=== PATIENT | male | born 1950 | race Caucasian/White ===

== ENCOUNTER 2017-08-21 13:52 | Emergency (ER) | payer OTHER, SELFPAY ==
[2017-08-21 13:53] VITALS: BP 174/98; PULSE 95; RESP 16; TEMP 37.1; O2SAT 95; BMI 41.7
--- NOTE | 2017-08-21 19:25 | MRI_ITS ---
STUDY: MRI RIGHT FOREFOOT WITHOUT CONTRAST REASON FOR EXAM: Male, 67 years old. Redness, swelling, injury, second toe TECHNIQUE: Standardized fat and water weighted pulse sequences were obtained in all 3 orthogonal planes. COMPARISON: X-ray 08/21/2017 FINDINGS: There is bone marrow edema at the second distal phalanx without bone marrow infiltration (image 17/28 sagittal inversion recovery, / axial T1, 17/ sagittal T1, 8/ coronal T2). There is associated soft tissue induration with soft tissue defect (image 16, / sagittal T1). There is hallux valgus with mild degenerative changes at the first MTP joint (image / coronal T2). There is atrophy of the forefoot musculature (image 30/33 axial T1). There is edema at the dorsal subcutaneous fat (image 26/33 axial T2). There is soft tissue fullness at the plantar aspect of the metatarsal heads at the second web space (image 17/33 axial T1). There is callus formation at the plantar aspect of the fifth metatarsal head (image 28/33 axial T1, T2). There are degenerative changes at Lisfranc's joint (image 19, 17, 15, 14, / sagittal T1). Normal medial and lateral heads of the flexor hallucis brevis tendons. Normal flexor and extensor hallucis longus tendons. Normal second through fifth metatarsophalangeal (MTP) joints. Normal interphalangeal joints of the second through fifth toes. Normal flexor and extensor tendons of the second through fifth toes. Normal visualized metatarsi. MRI/Lower Ext/No Jt/w/o IMPRESSION: Contusion, second distal phalanx, without osteomyelitis Millan's neuroma, second webspace Hallux valgus with degenerative changes at the first MTP joint Degenerative changes at Lisfranc's joint Electronically Signed: Alfie Kennedy MD at 21:11 EST Tel , Service support ,
--- NOTE | 2017-08-21 19:40 | CON.PCM_ITS ---
Reason for Consult Date of Consultation: 08/21/17 Reason for Consultation: Infected right 2nd toe History of Present Illness: The patient is a 67 year old male with history of diabetes presented to the ED today for redness and swelling of the right 2nd toe. He has streaking on the foot as well as swelling and redness to the baldwin. He relates to pain to the toe. He relates this started over the weekend, he bumped the toe, he relates he pulled back the toenail. He relates the redness and swelling have been worsening. In the ED WBC was elevated at 14.1, afebrile, pulse 95, and BP elevated. He received IV Clindamycin in the ED. Plan is for patient to be admitted for further workup and management. Podiatry was consulted by Dr. Shah from the medicine team. Patient relates he works at [employer], he lives at home with his , but she is in nursing facility recovering from a hip fracture. Past Medical History Allergies No Known Allergies Allergy (Verified 08/21/17 13:56) Home Medications: Ambulatory Orders Medication Instructions Recorded Canagliflozin [Invokana] 100 mg PO DAILY 08/21/17 Insulin Glargine,Hum.rec.anlog 160 unit SC DAILY 08/21/17 [Toujeo Solostar] Levothyroxine Sodium [Synthroid] 100 mcg PO DAILY 08/21/17 Pioglitazone [Actos] 45 mg PO DAILY 08/21/17 Sitagliptin Phos/Metformin HCl 1 tab PO BID 08/21/17 [Janumet Xr 50-1,000 mg Tablet] Review of Systems Constitutional: Denies: Chills, Fever Cardiovascular: Reports: Edema - right foot/leg c/w infection. Denies: Chest Pain Respiratory: Denies: Shortness of Breath Gastrointestinal: Denies: Nausea, Vomiting Musculoskeletal: Reports: Foot Pain - right 2nd toe pain c/w infection. Denies : Leg Pain Skin: Reports: Dryness, Skin Changes, Wounds Neurological: Reports: Numbness - Diabetic neuropathy Objective: Right foot xrays, 3 views - reviewed images and report. - Physical Exam General: Alert, Oriented x3, Cooperative, No apparent distress Extremities: Capillary Refill Less than 3 Seconds, No Calf Tenderness, - - There is cellulitis and edema to the right 2nd toe with some bluish discoloration and superficial blistering present, there is lymphangitis to the foot and this cellulitis and lymphangitis extends to the distal leg; there is no maloder, the right 2nd toenail is lysed and was removed as noted in the plan section - underlying ulceration to the nail bed with some nonviable tissue present and probes very close to the underlying bone, there is serous drainage present c/w infection, no thea purulence, no visible abscess noted to the toes , foot, ankle or leg. There is a callus superficial ulceration to the plantar medial right hallux with no evidence of infection. There are no other open ulcerations noted. CFT < 2seconds to all toes, pedal pulses are difficult to palpate at this time bilaterally. There is edema to the right 2nd toe, foot, and leg; no edema on the left foot/ankle/leg. Sensation is diminished c/w diabetic neuropathy to the foot bilateral. Toenails thickened and dystorphic bilateral. Increased temperature to the right 2nd toe and foot c/w infection. Motor function and muscle strength intact to the foot/ankle bilateral. Musculoskeletal: No Tenderness to Palpation of Joints or Extremities, No Muscle Wasting Psych/Mental Status: Alert and oriented to time, place, person, mood and affect Vital Signs Temp Pulse Resp BP Pulse Ox 98.7 F 95 16 174/98 H 95 08/21/17 13:53 08/21/17 13:53 08/21/17 13:53 08/21/17 13:53 08/21/17 13:53 Oxygen Delivery Method Room Air Weight: 147.418 kg Body Mass Index (BMI) 41.7 Assessment/Plan Cellulitis/lymphangitis right 2nd toe, extending to foot and leg Concern for osteomyelitis right 2nd toe Ulceration right 2nd toenail bed Diabetic w/ peripheral neuropathy Reviewed available diagnostic data, WBC 14.1, afebrile, Xrays of the right foot with no gas or evidence of bone involvement. With patient's verbal consent the loose right 2nd toe nail was debrided away and underlying ulceration noted to nail bed. A culture was taken and was sent to microbiology for further evaluation, this includes MRSA DNA PCR. The ulcer is very close to the bone and given the findings in the diabetic patient concerned about seeding bacteria into bone / osteomyelitis. An MRI was ordered for further evaluation. A dressing was applied which consisted of betadine, gauze, kerlix and sascha dressing. Patient has been started on broad spectrum IV antibiotics. Noninvasive lower extremity arterial studies have been ordered for further evaluation of patient's lower extremity arterial flow. Further medical management per medicine team. I did speak with and review case and findings with Dr. Shah. Podiatry will continue to follow. Thank you for consultation.
== END 2017-08-21 14:34 | disposition left against medical advice (07) ==
LOC: ED 14:17
PROVIDERS: Emergency Provider Emergency Medicine; Family Provider Family Medicine; PCP Family Medicine
DX: S90.121A Contusion of right lesser toe(s) without damage to nail, initial encounter (principal); X58.XXXA Exposure to other specified factors, initial encounter; G57.61 Lesion of plantar nerve, right lower limb; M20.11 Hallux valgus (acquired), right foot
CPT/HCPCS: 73718; 99283

== ENCOUNTER 2017-08-21 15:03 | Observation (INO) | payer OTHER, MEDICARE, SELFPAY ==
[2017-08-21 13:53] VITALS: BP 174/98; BMI 41.7
[2017-08-21 15:04] VITALS: BP 181/99; PULSE 95; RESP 16; TEMP 36.6; O2SAT 94; BMI 41.7
[2017-08-21] MEDS: Ondansetron 4 MG/2 ML Vial IV (16:28)
--- NOTE | 2017-08-21 16:38 | RAD_ITS ---
STUDY: X-RAY - RIGHT FOOT CLINICAL: Male, 67 years old. Redness and pain first and second toes. TECHNIQUE: 3 view(s) of the foot. COMPARISON: None. FINDINGS: There is demineralization of the rear and midfoot bones. There are degenerative changes of the mid and hindfoot. There is demineralization of the metatarsi. There is degenerative arthrosis of the metatarsophalangeal joint of the hallux . There is degenerative arthrosis of the interphalangeal joint of the great toe. Normal second through fifth metatarsophalangeal joints. There are degenerative changes of the distal interphalangeal joints of the lesser toes. There is diffuse soft tissue swelling along the plantar aspect of the mid and forefoot. There is a single round radiolucency projecting over the subcutaneous soft tissue along the plantar aspect of the first toe. RAD/Foot min 3 Views IMPRESSION: Single radiolucency projecting over the soft tissue along the plantar aspect of the first toe, may be secondary to an underlying ulceration cannot entirely exclude a small focus of subcutaneous emphysema which could be secondary to an infectious process and/or trauma. Degenerative changes. Electronically Signed: Michelle Schafer MD at 16:56 EST Tel , Service support ,
[2017-08-21 17:00] LABS: Absolute Neutrophil Count 10.7 X10^3/uL (2.0-7.7); Basophil# 0.02 X10^3/uL; Basophil% 0.1 % (0-1); Differential Indicated SCAN CRITERIA MET; Eosinophil# 0.08 X10^3/uL; Eosinophils% 0.6 % (0-5); Hematocrit 47.8 % (40-54); Hemoglobin 15.3 g/dl (13.0-16.5); Lymphocyte % 12.1 % (19-41); Mean Corpuscular Hgb 30.1 pg (27.0-32.0); Mean Corpuscular Volume 93.9 fL (80-94); Mean Platelet Vol. 9.8 fl (6.2-12.0); Monocyte# 1.53 X10^3/uL; Monocyte% 10.9 % (0-10); Neutrophil # 10.69 X10^3/uL (2.7-7.7); Neutrophil % 76.1 % (47-70); POSITIVE COUNT NO; POSITIVE DIFFERENTIAL YES; POSITIVE MORPHOLOGY NO; Platelet Count 273 K/mm3 (150-450); RBC Distribution Width CV 13.4 % (11.6-14.6); RBC Distribution Width SD 45.8 fl (35.1-43.9); Red Blood Count 5.09 M/mm3 (4.6-6.2); White Blood Count 14.1 K/mm3 (4.4-11.0)
[2017-08-21 17:20] LABS: Anion Gap 9 (5-15); BUN 11 mg/dL (7-18); BUN/Creat Ratio 14.5 RATIO (10-20); Calcium,Total 9.1 mg/dL (8.5-10.1); Chloride 104 mmol/L (98-107); Creatinine, Serum 0.76 mg/dL (0.70-1.30); EST Glomerular Filtration Rate 109 mL/min (>60); Est Glom Filt Rate - Afr Amer 132 mL/min (>60); Estimated Creatinine Clearance 83.34 ml/min; Glucose 80 mg/dL (74-106); Potassium 3.7 mmol/L (3.5-5.1); Sodium Level 140 mmol/L (136-145)
--- NOTE | 2017-08-21 17:26 | ED.VISSUMM ---
- ER Visit Summary Date of Service: 08/21/17 Chief Complaint: Pain swelling discoloration second right toe status post blunt trauma Sunday History of Present Illness: The patient is a 67 M with 3 of type 2 diabetes presents because of redness right second toe with red streak that concerns him. He sustained blunt trauma to the toe on Sunday. He partially avulsed the nail. He did not seek medical attention at that time. He denies fever or chills. He denies elevated blood sugar. He has no other complaints. Physical Examination: Vital signs remarkable blood pressure 181/99. Patient is obese with a BMI of 41.7. Head is atraumatic normocephalic. Pupils are equal round reactive. Extraocular muscles are intact. TMs are pearly white with landmarks noted. Nares patent with no drainage. Posterior pharynx without erythema or exudate. Uvula is midline. There is no dysphonia or dysphasia. Trachea is midline. There is no stridor with auscultation of the neck. Heart is regular without murmur, gallop or rub. S1 and S2 are normal. Lungs are clear to auscultation with good movement of air bilaterally. Examination of the lower extremities reveals bilateral edema. The right second toe is discolored erythematous warm indurated with lymphangitis to the distal anterior right leg which is erythematous and warm and consistent with cellulitis. There is no popliteal or inguinal lymphadenopathy. Test Results: X-ray of the foot was obtained with no evidence of foreign body or fracture. White count is 14.1 thousand with no significant shift. Electrode panel is normal. Emergency Department Course and Treatment: Patient has cellulitis with lymphangitis he was treated with clindamycin for strep and staph coverage. Realizing that 2% of MRSA will not be covered by clindamycin. However in light of the fact that he has lymphangitis most likely organism is strep. Treatment Plan: IV antibiotics and inpatient care Disposition: [facility] Impression: 1. Cellulitis right second toe with lymphangitis and cellulitis anterior distal right leg 2. Sepsis 3. History of type 2 diabetes This note was generated with [employer] dictation software. It may contain incorrect words, spelling, and punctuation that were not noted in review of the chart prior to signing ED Disposition - Plan for ED Patient: Chief Complaint: Lower Extremity Injury Referrals: Floyd Ricketts DO [Primary Care Provider] -
[2017-08-21 17:48] VITALS: BMI 41.7
[2017-08-21 17:56] LABS: Differential Comment SCANNED
[2017-08-21 18:06] VITALS: BP 165/83; PULSE 97; RESP 16; O2SAT 95
--- NOTE | 2017-08-21 19:46 | PCM.CONS.GEN ---
Reason for Consult Date of Consultation: 08/21/17 Reason for Consultation: Right 2nd toe infection History of Present Illness: The patient is a 67 year old male with history of diabetes presented to the ED today for redness and swelling of the right 2nd toe. He has streaking on the foot as well as swelling and redness to the baldwin. He relates to pain to the toe. He relates this started over the weekend, he bumped the toe, he relates he pulled back the toenail. He relates the redness and swelling have been worsening. In the ED WBC was elevated at 14.1, afebrile, pulse 95, and BP elevated. He received IV Clindamycin in the ED. Plan is for patient to be admitted for further workup and management. Podiatry was consulted by Dr. Shah from the medicine team. Patient relates he works at [employer], he lives at home with his , but she is in nursing facility recovering from a hip fracture. Past Medical History Allergies No Known Allergies Allergy (Verified 08/21/17 13:56) Home Medications: Ambulatory Orders Medication Instructions Recorded Canagliflozin [Invokana] 100 mg PO DAILY 08/21/17 Insulin Glargine,Hum.rec.anlog 160 unit SC DAILY 08/21/17 [Toujeo Solostar] Levothyroxine Sodium [Synthroid] 100 mcg PO DAILY 08/21/17 Pioglitazone [Actos] 45 mg PO DAILY 08/21/17 Sitagliptin Phos/Metformin HCl 1 tab PO BID 08/21/17 [Janumet Xr 50-1,000 mg Tablet] Smoking Status: Former smoker - *Family History Maternal History Items: No pertinent history Paternal History Items: Diabetes, Heart Disease, Hypertension Review of Systems Constitutional: Denies: Anorexia, Chills, Fever Cardiovascular: Denies: Chest Pain Respiratory: Denies: Shortness of Breath Gastrointestinal: Denies: Nausea, Vomiting Musculoskeletal: Reports: Foot Pain - right 2nd toe Skin: Reports: Skin Changes, Wounds Neurological: Reports: Numbness - Diabetic neuropathy Patient Problems: Active and Suspected Problems redness of right second toe (Acute) swelling of right second toe (Acute) Objective: Right foot xrays, 3 views, reviewed images and report. - Physical Exam General: Alert, Oriented x3, Cooperative, No apparent distress Extremities: Capillary Refill Less than 3 Seconds, No Calf Tenderness, - - There is cellulitis and edema to the right 2nd toe with some bluish discoloration and superficial blistering present, there is lymphangitis to the foot and this cellulitis and lymphangitis extends to the distal leg; there is no maloder, the right 2nd toenail is lysed and was debrided as noted in the plan section - underlying ulceration to the nail bed with some nonviable tissue present and probes very close to the underlying bone, there is serous drainage present c/w infection, no thea purulence, no visible abscess noted to the toes, foot, ankle or leg. There is a callus superficial ulceration to the plantar medial right hallux with no evidence of infection. There are no other open ulcerations noted. CFT < 2seconds to all toes, pedal pulses are difficult to palpate at this time bilaterally. There is edema to the right 2nd toe, foot, and leg; no edema on the left foot/ankle/leg. Sensation is diminished c/w diabetic neuropathy to the foot bilateral. Toenails thickened and dystorphic bilateral. Increased temperature to the right 2nd toe and foot c/w infection. Motor function and muscle strength intact to the foot/ankle bilateral. Musculoskeletal: No Tenderness to Palpation of Joints or Extremities, No Muscle Wasting Psych/Mental Status: Alert and oriented to time, place, person, mood and affect Vital Signs Temp Pulse Resp BP Pulse Ox 97.9 F 97 16 165/83 H 95 08/21/17 15:04 08/21/17 18:06 08/21/17 18:06 08/21/17 18:06 08/21/17 18:06 Laboratory Tests Past 24 Hrs 08/21/17 19:20 Lactic Acid Pending Assessment/Plan Active and Suspected Problems redness of right second toe (Acute) swelling of right second toe (Acute) Cellulitis/lymphangitis right 2nd toe, extending to foot and leg Concern for osteomyelitis right 2nd toe Ulceration right 2nd toenail bed Diabetic w/ peripheral neuropathy Reviewed available diagnostic data, WBC 14.1, afebrile, Xrays of the right foot with no gas or evidence of bone involvement. With patient's verbal consent the loose right 2nd toe nail was debrided away and underlying ulceration noted to nail bed. A culture was taken and was sent to microbiology for further evaluation, this includes MRSA DNA PCR. The ulcer is very close to the bone and given the findings in the diabetic patient concerned about possibility of seeding bacteria into bone / osteomyelitis. An MRI was ordered for further evaluation. A dressing was applied which consisted of betadine, gauze, kerlix and sascha dressing. Patient has been started on broad spectrum IV antibiotics. Noninvasive lower extremity arterial studies have been ordered for further evaluation of patient's lower extremity arterial flow. Further medical management per medicine team. I did speak with and review case and findings with Dr. Shah. Podiatry will continue to follow. Thank you for consultation.
--- NOTE | 2017-08-21 20:12 | HP.PCM_ITS ---
Problem List (1) redness of right second toe Status: Acute (2) swelling of right second toe Status: Acute History of Present Illness Date of Admission: 08/21/17 Chief Complaint: selling and redness of the right second toe The patient is a 67 year old M who was seen in the emergency room at [facility] with chief complaint of swelling and redness in his right second toe since yesterday. Patient tried to remove a toenail from his right second toe several days ago. Patient noted today that there was red streaking into the patient's right lower leg, he did complain of pain in the right second toe. Workup in the emergency room showed the patient's white blood cell count to be elevated at 14.1, patient's chemistry panel was unremarkable, x-rays of the right foot reveal no evidence of bone erosion in the right second toe. Patient met sepsis criteria with tachycardia and elevated white count, he was given IV clindamycin by the emergency room physician and the hospitalist service was called for admission. On examination, patient's right second toe is swollen and reddened, it is tender to palpation, there was no open areas that I could express any discharge. Patient's right lower leg was warm to around the mid portion of the leg, both lower legs were swollen and there were changes of chronic stasis changes of the skin bilaterally. I talked with of podiatry who will see the patient in consultation, he will be admitted to [facility], blood cultures will be obtained from the patient, lactic acid will be obtained, patient will be given Zosyn and vancomycin for antibiotic coverage and have peripheral vascular studies done on his legs. Past Medical History Allergies No Known Allergies Allergy (Verified 08/21/17 13:56) Home Medications: Ambulatory Orders Medication Instructions Recorded Canagliflozin [Invokana] 100 mg PO DAILY 08/21/17 Insulin Glargine,Hum.rec.anlog 160 unit SC DAILY 08/21/17 [Delmi Huang] Levothyroxine Sodium [Synthroid] 100 mcg PO DAILY 08/21/17 Pioglitazone [Actos] 45 mg PO DAILY 08/21/17 Sitagliptin Phos/Metformin HCl 1 tab PO BID 08/21/17 [Janumet Xr 50-1,000 mg Tablet] Surgical History: tonsillectomy Psychiatric History: No pertinent psych hx Lives: Spouse/ Significant Other Smoking Status: Former smoker Tobacco Use: Non-smoker Alcohol: None Drugs: None - *Family History Maternal History Items: No pertinent history Paternal History Items: Diabetes, Heart Disease, Hypertension Review of Systems Constitutional: Denies: Anorexia, Chills, Fever, Night Sweats, Malaise, Weakness , Weight Change, Fatigue Eyes: Denies: Blurred vision, Cataracts, Conjunctivae Inflammation, Double vision HEENT: Denies: Difficulty Hearing, Difficulty Swallowing, Dysphasia, Ear Pain, Eye Pain, Hearing Changes, Nasal bleeding, Nasal Congestion, Post Nasal Drip Cardiovascular: Denies: Chest Pain, Claudication, Chest Pressure, Chest Tightness, Light Headedness, Orthopnea, Palpitations Respiratory: Denies: Cough, Hemoptysis, Pleuritic Pain, Shortness of Breath, Shortness of breath at rest, Shortness of breath upon exertion, Sputum production Gastrointestinal: Denies: Abdominal Pain, Constipation, Diarrhea, Hematemesis, Hematochezia, Nausea, Melena, Vomiting Genitourinary: Denies: Dysuria, Frequency, Hematuria, Hesitancy, Incontinence, Nocturia, Urgency Musculoskeletal: Reports: Joint swelling, Joint Tenderness. Denies: Hand Pain, Joint Pain, Joint stiffness, Neck Pain, Shoulder Pain Skin: Reports: Rash - complains of rash and swelling over the his right second toe, - - Patient complains of redness in the right lower legX 1 day. Denies: Dryness, Jaundice, Pruritis Neurological: Denies: Blurred vision, Double vision, Slurred speech, Difficulty swallowing, Focal weakness, Numbness, Tingling Psychiatric: Denies: Anxiety, Depression, Homicidal Ideations, Suicidal Ideations Endocrine: Denies: Change in Body Habitus, Heat/ Cold Intolerance, Polydipsia, Polyuria Hematologic/ Lymphatic: Denies: Adenopathy, Anemia, Easy Bruising, Easy Bleeding , Petechiae, Purpura VTE Information - Inpt Only VTE Present on Admission: No VTE Mechan Device Prophylaxis: None VTE Pharm Prophylaxis ordered?: Yes Patient Problems: Active and Suspected Problems redness of right second toe (Acute) swelling of right second toe (Acute) - Physical Exam General: Alert, Oriented x3, Cooperative, No apparent distress, Well developed, Well nourished HEENT: Atraumatic, PERRLA, EOMI, Normocephalic Oral: Moist Mucosa Neck: Supple, No JVD, Negative Carotid Bruits, No Nuchal Rigidity, Trachea Midline, Thyroid Normal Size and Texture Lungs: Clear to auscultation, Normal air movement, No rhonchi, No wheeze, No rales Cardiovascular: Regular rate, Regular Rhythm, Normal S1, Normal S2, No murmurs, No Ectopic Activity, PMI Normal, No rub noted, No Gallop Abdomen: Bowel Sounds Present, Soft, Non Tender, Non-Distended, Hernia Extremities: Capillary Refill Less than 3 Seconds, Edema - Generalized edema is noted over both lower legs worse on the right, Tenderness - There is tenderness to palpation over the right second toe Skin: No breakdown, Rash Present - There is rash and swelling over the patient' s right second toe, - - There is redness and warmth of the patient's right lower leg up to the midportion of the leg Musculoskeletal: No Muscle Wasting, Tenderness - There is tenderness over the right second toe to palpation Neurological: Cranial nerves II-XII grossly intact, Neuro grossly intact, Muscle tone normal, Sensory exam intact to light touch and pain, Coordination normal Psych/Mental Status: Normal Affect, Appropriate, Alert and oriented to time, place, person, mood and affect Vital Signs Temp Pulse Resp BP Pulse Ox 97.9 F 97 16 165/83 H 95 08/21/17 15:04 08/21/17 18:06 08/21/17 18:06 08/21/17 18:06 08/21/17 18:06 Laboratory Tests Past 24 Hrs 08/21/17 19:20 Lactic Acid Pending Assessment/Plan Active and Suspected Problems redness of right second toe (Acute) swelling of right second toe (Acute) #1 acute sepsis secondary to right second toe cellulitis-probably secondary to gram-positive bacterial infection, patient will be admitted to [facility], podiatry will see the patient in consultation, blood cultures will be obtained, lactic acid will be obtained, patient will be given Zosyn and vancomycin. Labs will be repeated #2 acute cellulitis of the right second toe-suspect gram-positive bacterial infection, patient will be given Zosyn and vancomycin, labs will be repeated #3 type 2 diabetes-patient's diabetic medications will be changed, he will be placed on Levemir twice daily, sliding scale insulin, his metformin will be held , patient will be maintained on his Actos Code Visit Inpatient E&M: 46012 Init Hosp L3
[2017-08-21 20:57] VITALS: BP 163/85; PULSE 79; RESP 20; TEMP 36.9; O2SAT 94
[2017-08-21 20:59] VITALS: BMI 42.5
[2017-08-21 21:00] VITALS: BMI 42.6
[2017-08-21 21:31] LABS: Bedside Glucose 88 mg/dL (70-110)
[2017-08-21 21:33] LABS: Lactic Acid 0.6 mmol/L (0.4-2.0)
[2017-08-21] MEDS: oxyCODONE 5 MG Tablet PO (23:03)
[2017-08-22] MEDS: Piperacil/Tazobactam 3.375 GM/50 ML ML IV ×4 (01:45→22:18)
[2017-08-22] MEDS: oxyCODONE 5 MG Tablet PO ×5 (02:03→22:30)
[2017-08-22 03:25] VITALS: BP 111/55; PULSE 88; RESP 18; TEMP 36.3; O2SAT 93
[2017-08-22] MEDS: Levothyroxine 100 MCG Tablet PO (06:04)
[2017-08-22 06:36] LABS: Absolute Lymphocyte Count 1.88 X10^3/ul (0.83-4.51); Absolute Neutrophil Count 7.3 X10^3/uL (2.0-7.7); Basophil# 0.02 X10^3/uL; Basophil% 0.2 % (0-1); Eosinophil# 0.15 X10^3/uL; Eosinophils% 1.4 % (0-5); Hematocrit 45.7 % (40-54); Hemoglobin 14.7 g/dl (13.0-16.5); Lymphocyte # 1.88 X10^3/ul (4.0); Lymphocyte % 17.4 % (19-41); Mean Corp Hgb Conc 32.2 g/gl (32-36); Mean Corpuscular Hgb 30.2 pg (27.0-32.0); Mean Corpuscular Volume 93.8 fL (80-94); Mean Platelet Vol. 9.8 fl (6.2-12.0); Monocyte# 1.48 X10^3/uL; Monocyte% 13.7 % (0-10); Neutrophil # 7.27 X10^3/uL (2.7-7.7); Platelet Count 287 K/mm3 (150-450); RBC Distribution Width CV 13.6 % (11.6-14.6); RBC Distribution Width SD 45.1 fl (35.1-43.9); Red Blood Count 4.87 M/mm3 (4.6-6.2); White Blood Count 10.8 K/mm3 (4.4-11.0)
[2017-08-22 06:38] LABS: POSITIVE COUNT NO; POSITIVE DIFFERENTIAL NO; POSITIVE MORPHOLOGY NO
[2017-08-22 06:47] LABS: Anion Gap 8 (5-15); BUN 14 mg/dL (7-18); BUN/Creat Ratio 18.4 RATIO (10-20); Calcium,Total 8.9 mg/dL (8.5-10.1); Chloride 103 mmol/L (98-107); Creatinine, Serum 0.76 mg/dL (0.70-1.30); EST Glomerular Filtration Rate 109 mL/min (>60); Est Glom Filt Rate - Afr Amer 132 mL/min (>60); Estimated Creatinine Clearance 81.01 ml/min; Glucose 59 mg/dL (74-106); Sodium Level 138 mmol/L (136-145)
[2017-08-22 06:56] LABS: Bedside Glucose 71 mg/dL (70-110)
--- NOTE | 2017-08-22 08:25 | PCM.RX.CS ---
Subjective/Objective Date: 08/22/17 Time: 08:26 Antibiotic: Piperacillin/Tazobactam, Vancomycin Type of Consult: New start Indications for Therapy: Skin/Soft Tissue Labs: Sodium 138 mmol/L (136-145) 08/22/17 05:45 Potassium 4.0 mmol/L (3.5-5.1) 08/22/17 05:45 Chloride 103 mmol/L (98-107) 08/22/17 05:45 Carbon Dioxide 27.0 mmol/L (21.0-32.0) 08/22/17 05:45 Anion Gap 8 (5-15) 08/22/17 05:45 BUN 14 mg/dL (7-18) 08/22/17 05:45 Creatinine 0.76 mg/dL (0.70-1.30) 08/22/17 05:45 Est GFR (MDRD) Af Amer 132 mL/min (>60) 08/22/17 05:45 Est GFR (MDRD) Non-Af 109 mL/min (>60) 08/22/17 05:45 BUN/Creatinine Ratio 18.4 RATIO (10-20) 08/22/17 05:45 Glucose 59 mg/dL (74-106) L 08/22/17 05:45 Pharmacy Plan for Drug Dosing: Goal vancomycin trough 10-15 mcg/mL. Patient received vancomycin 2000mg IV x1, recommend to continue 1250mg IV q12h for est trough 11 mcg/mL. Check prior to 5th dose. Pharmacy Service will continue to monitor and adjust dosing as required. Pharmacy to order these labs: Trough - Vancomycin Labs to be done on (date): 08/24/17 Labs to be done (time): 10:00
[2017-08-22 09:32] LABS: M R Staph aureus DNA By PCR Negative (Negative); Probe Check PASS; Staph aureus DNA By PCR POSITIVE (Negative)
[2017-08-22 09:58] VITALS: BP 115/53; PULSE 86; RESP 20; TEMP 36.7; O2SAT 92
[2017-08-22] MEDS: Pioglitazone Hydrochloride 45 MG Tablet PO (10:03)
[2017-08-22] MEDS: Enoxaparin 40 MG/0.4 ML Syringe SC (10:04)
--- NOTE | 2017-08-22 12:01 | PN_ITS ---
Patient Problems: Active and Suspected Problems redness of right second toe (Acute) swelling of right second toe (Acute) Subjective: Patient was seen and examined. No new complains. Denies any pain in the leg. No fever or chills. Objective: Physical Exam General: Alert, Oriented x3, Cooperative, No apparent distress, Well developed, Well nourished HEENT: Atraumatic, PERRLA, EOMI, Normocephalic Oral: Moist Mucosa Neck: Supple, No JVD Lungs: Clear to auscultation, Normal air movement, No wheeze or rales Cardiovascular: Regular rate, Regular Rhythm, Normal S1, Normal S2, No murmurs, No Ectopic Activity, PMI Normal, No rub noted, No Gallop Abdomen: Bowel Sounds Present, Soft, Non Tender, Non-Distended, Hernia Extremities: Capillary Refill Less than 3 Seconds, Edema - Generalized edema is noted over both lower legs worse on the right, right foot has been dressed in gauze and LISA wrapped. Erythema over the right lower leg Skin: No breakdown, Rash Present - There is rash and swelling over the patient' s right second toe, - - There is redness and warmth of the patient's right lower leg up to the midportion of the leg Musculoskeletal: No Muscle Wasting, Tenderness - There is tenderness over the right second toe to palpation Neurological: Cranial nerves II-XII grossly intact, Neuro grossly intact, Muscle tone normal, Sensory exam intact to light touch and pain, Coordination normal Psych/Mental Status: Normal Affect, Appropriate, Alert and oriented to time, place, person, mood and affect Vitals/I&O's: Vital Signs Temp Pulse Resp BP Pulse Ox 98.1 F 86 20 H 115/53 L 92 08/22/17 09:58 08/22/17 09:58 08/22/17 09:58 08/22/17 09:58 08/22/17 09:58 Oxygen Delivery Method Room Air Weight: 146.3 kg Body Mass Index (BMI) 42.5 Intake and Output for Last 24 Hours 08/20/17 08/21/17 08/22/17 23:59 23:59 23:59 Intake Total 1134 / 1134 Balance 1134 / 1134 Microbiology Past 72 Hours 08/21/17 19:20 Wound - Toe Gram Stain - Final Laboratory Results 08/21/17 19:20: S.aureus Protein A PCR POSITIVE H, MRSA (PCR) Negative 08/21/17 20:45: Lactic Acid 0.6 08/21/17 21:23: POC Glucose 88 08/22/17 05:45: WBC 10.8, RBC 4.87, Hgb 14.7, Hct 45.7, MCV 93.8, MCH 30.2, MCHC 32.2, RDW 13.6, RDW Differential 45.1 H, Plt Count 287, MPV 9.8, Immature Gran % (Auto) 0.300, Neut % (Auto) 67.0, Lymph % (Auto) 17.4 L, [place] % (Auto) 13.7 H, Eos % (Auto) 1.4, Baso % (Auto) 0.2, Absolute Neuts (auto) 7.3, Absolute Lymphs (auto) 1.88, Total Counted Not Reportable 08/22/17 05:45: Sodium 138, Potassium 4.0, Chloride 103, Carbon Dioxide 27.0, Anion Gap 8, BUN 14, Creatinine 0.76, Estim Creat Clear Calc 81.01, Est GFR ( MDRD) Af Amer 132, Est GFR (MDRD) Non-Af 109, BUN/Creatinine Ratio 18.4, Glucose 59 L, Calcium 8.9 08/22/17 06:51: POC Glucose 71 Current Medications Acetaminophen (Tylenol) 650 mg PO Q6H PRN PRN PRN Reason: Mild Pain (scale 0-3)/T>100.7 Dextrose (D50w Syringe) 0 gm IV X1 PRN; Protocol PRN Reason: Hypoglycemia Enoxaparin Sodium (Lovenox) 40 mg SC DAILY@1000 LIZZY Last Admin: 08/22/17 10:04 Dose: 40 mg Glucagon () 1 mg IM .X1 PRN PRN Reason: Hypoglycemia Piperacillin Sod/Tazobactam Sod (Zosyn) 3.375 gm in 50 mls @ 12.5 mls/hr IV Q8 [facility] Last Admin: 08/22/17 06:04 Dose: 12.5 mls/hr Vancomycin HCl 1,250 mg/ (Sodium Chloride) 275 mls @ 183.3 mls/hr IV Q12H [facility] Last Admin: 08/22/17 10:07 Dose: 183.3 mls/hr Insulin Aspart (Novolog Flexpen (Bkc)) 0 units SC TIDAC [facility] PRN Reason: Protocol Last Admin: 08/22/17 06:57 Dose: Not Given Insulin Detemir (Levemir (Bk)) 80 units SC BID [facility] Last Admin: 08/22/17 10:03 Dose: 80 units Levothyroxine Sodium (Synthroid) 100 mcg PO DAILY@0600 [facility] Last Admin: 08/22/17 06:04 Dose: 100 mcg Magnesium Hydroxide (Milk Of Magnesia) 30 ml PO DAILY PRN PRN PRN Reason: Constipation Ondansetron HCl (Zofran) 4 mg IV Q8H PRN PRN PRN Reason: Nausea Oxycodone HCl (Oxyir) 5 mg PO Q4H PRN PRN PRN Reason: Moderate Pain (pain scale 4-5) Last Admin: 08/22/17 10:02 Dose: 5 mg Pioglitazone HCl (Actos) 45 mg PO DAILY [facility] Last Admin: 08/22/17 10:03 Dose: 45 mg Sodium Chloride () 5 - 30 ml IV UD PRN PRN Reason: SALINE FLUSH Assessment/Plan Active and Suspected Problems redness of right second toe (Acute) swelling of right second toe (Acute) 67 year old M who was seen in the emergency room at [facility] with chief complaint of swelling and redness in his right second toe of 1 day duration 1. Sepsis secondary to right second toe cellulitis, wound cultures are pending, MSSA PCR is positive, MRSA PCR negative, stable vitals, improved leucocytosis, on vancomycin and zosyn, will stop vancomycin and leave on zosyn. 2. Acute cellulitis/ulcer of the right second toe, on IV Zosyn 3. type 2 DM, BS are stable, home metformin on hold, on Actos and Levemir insulin, will continue to monitor 4. Hypothyroidism, on levothyroxine 5. DVT PPx with Lovenox SC Code Visit Inpatient E&M: 19456 [facility] Hosp L2
--- NOTE | 2017-08-22 12:04 | NURSING ---
Pt requested to go to rehab unit to visit his who is a patient. Discussed with pt's physician, Dr. Archuleta, and discussed with nurse, Charley, on rehab. Pt states he will eat lunch after he returns from visiting . Pt over to rehab via wheelchair at this time.
[2017-08-22 12:05] LABS: Pathologist Review Reviewed
--- NOTE | 2017-08-22 12:15 | CASEMGMT ---
Attempted to meet with patient for initial transition planning and care coordination assessment. Patient off unit. RN CM will check back today as able.
--- NOTE | 2017-08-22 13:40 | NURSING ---
Pt returned to room at this time via wheelchair.
[2017-08-22 13:56] LABS: Bedside Glucose 144 mg/dL (70-110)
[2017-08-22 14:10] VITALS: BP 142/84; PULSE 77; RESP 18; TEMP 37.1; O2SAT 95
[2017-08-22] MEDS: 0.9% NaCl Peripheral Flush Adult/Peds IV (14:13)
[2017-08-22 17:31] LABS: Bedside Glucose 181 mg/dL (70-110)
[2017-08-22] MEDS: Acetaminophen 325 MG Tablet 650 MG PO (18:25)
--- NOTE | 2017-08-22 18:34 | PN_ITS ---
Patient Problems: Active and Suspected Problems redness of right second toe (Acute) swelling of right second toe (Acute) Subjective: Patient seen today for follow up on right foot. He has no new complaints. Denies fever, chills, nausea, or vomiting. He was resting in recliner with feet up watching TV. - Physical Exam General: Alert, Oriented x3, Cooperative, No apparent distress Extremities: No clubbing, Capillary Refill Less than 3 Seconds, No Calf Tenderness, - - There is cellulitis and edema to the right 2nd toe with ulceration down to the superficial subcutaneous tissue layer dorsal aspect and to nail bed, there is no probe to bone or joint, there is some nonviable tissue to the base which was debrided with patient's consent, lymphangitis to the foot and this cellulitis and lymphangitis extends to the distal leg which is improving; there is no maloder, no thea purulence, no visible abscess noted to the toes, foot, ankle or leg. There is a callus ulceration to the plantar medial right hallux down to subcutaneous tissue layer with no evidence of infection. There are no other open ulcerations noted to the foot. CFT < 2seconds to all toes bilaterally. There is edema to the right 2nd toe, foot, and leg which is improving; no edema on the left foot/ankle/leg. He has diabetic neuropathy bilateral lower extremity. Vital Signs Temp Pulse Resp BP Pulse Ox 98.8 F 77 18 142/84 H 95 08/22/17 14:10 08/22/17 14:10 08/22/17 14:10 08/22/17 14:10 08/22/17 14:10 Oxygen Delivery Method Room Air Weight: 146.3 kg Body Mass Index (BMI) 42.5 Intake and Output for Last 24 Hours 08/20/17 08/21/17 08/22/17 23:59 23:59 23:59 Intake Total 2314 / 2314 Balance 2314 / 2314 Microbiology Past 72 Hours 08/21/17 19:20 Gram Stain - Final Wound - Toe Laboratory Tests Past 24 Hrs 08/21/17 08/21/17 08/22/17 19:20 20:45 05:45 WBC 10.8 RBC 4.87 Hgb 14.7 Hct 45.7 MCV 93.8 MCH 30.2 MCHC 32.2 RDW 13.6 RDW Differential 45.1 H Plt Count 287 MPV 9.8 Immature Gran % (Auto) 0.300 Neut % (Auto) 67.0 Lymph % (Auto) 17.4 L [place] % (Auto) 13.7 H Eos % (Auto) 1.4 Baso % (Auto) 0.2 Absolute Neuts (auto) 7.3 Absolute Lymphs (auto) 1.88 Total Counted Not Reportable Sodium Potassium Chloride Carbon Dioxide Anion Gap BUN Creatinine Estim Creat Clear Calc Est GFR (MDRD) Af Amer Est GFR (MDRD) Non-Af BUN/Creatinine Ratio Glucose Lactic Acid 0.6 Calcium S.aureus Protein A PCR POSITIVE H MRSA (PCR) Negative 08/22/17 05:45 WBC RBC Hgb Hct MCV MCH MCHC RDW RDW Differential Plt Count MPV Immature Gran % (Auto) Neut % (Auto) Lymph % (Auto) [place] % (Auto) Eos % (Auto) Baso % (Auto) Absolute Neuts (auto) Absolute Lymphs (auto) Total Counted Sodium 138 Potassium 4.0 Chloride 103 Carbon Dioxide 27.0 Anion Gap 8 BUN 14 Creatinine 0.76 Estim Creat Clear Calc 81.01 Est GFR (MDRD) Af Amer 132 Est GFR (MDRD) Non-Af 109 BUN/Creatinine Ratio 18.4 Glucose 59 L Lactic Acid Calcium 8.9 S.aureus Protein A PCR MRSA (PCR) POC Glucose 08/22/17 08/22/17 08/22/17 17:01 13:48 06:51 POC Glucose 181 H 144 H 71 08/21/17 21:23 POC Glucose 88 Assessment/Plan Active and Suspected Problems redness of right second toe (Acute) swelling of right second toe (Acute) Cellulitis/lymphangitis right 2nd toe, extending to foot and leg Concern for osteomyelitis right 2nd toe Ulceration right 2nd toenail bed Diabetic w/ peripheral neuropathy Ulcer right hallux down, down to subcutaneous layer Reviewed available diagnostic data, WBC now normal at 10.8, afebrile, right xrays of the right foot with no gas or evidence of bone involvement, MRI was negative for osteomyelitis per Dr. Kennedy, radiologist. Clinically there has been some improvement compared to last night. Culture results pending, MRSA DNA PCR negative. Continue with IV antibiotic therapy, patient on Zosyn at this time. Continue with wound care and offloading right foot. A dressing was applied which consisted of Aquacel Ag, gauze, and sascha dressing. Change daily. Will order surgical shoe for patient. Noninvasive lower extremity arterial studies were ordered and reviewed. Formal read pending, but does have evidence of PAD, patient will need follow up with vascular surgery. Clinically no evidence of acute ischemia to the foot bilateral. Further medical management per medicine team. I did speak with and review case and findings with Dr. Archuleta today. Podiatry will continue to follow.
[2017-08-22 20:37] VITALS: BP 117/54; PULSE 78; RESP 16; TEMP 36.8; O2SAT 98
[2017-08-22 22:41] LABS: Bedside Glucose 124 mg/dL (70-110)
[2017-08-23 02:13] VITALS: BP 149/80; PULSE 73; RESP 16; TEMP 36.9; O2SAT 93
[2017-08-23] MEDS: Acetaminophen 325 MG Tablet 650 MG PO ×3 (02:21→17:01)
[2017-08-23 05:29] LABS: Absolute Lymphocyte Count 1.55 X10^3/ul (0.83-4.51); Absolute Neutrophil Count 6.7 X10^3/uL (2.0-7.7); Basophil# 0.02 X10^3/uL; Basophil% 0.2 % (0-1); Eosinophil# 0.17 X10^3/uL; Eosinophils% 1.7 % (0-5); Hematocrit 44.9 % (40-54); Hemoglobin 14.3 g/dl (13.0-16.5); Lymphocyte # 1.55 X10^3/ul (4.0); Lymphocyte % 15.6 % (19-41); Mean Corp Hgb Conc 31.8 g/gl (32-36); Mean Corpuscular Hgb 29.8 pg (27.0-32.0); Mean Corpuscular Volume 93.5 fL (80-94); Mean Platelet Vol. 9.2 fl (6.2-12.0); Monocyte# 1.52 X10^3/uL; Monocyte% 15.3 % (0-10); Neutrophil # 6.68 X10^3/uL (2.7-7.7); Platelet Count 287 K/mm3 (150-450); RBC Distribution Width CV 13.4 % (11.6-14.6); RBC Distribution Width SD 44.3 fl (35.1-43.9)
[2017-08-23 05:30] LABS: Differential Indicated SCAN CRITERIA MET; POSITIVE COUNT NO; POSITIVE DIFFERENTIAL YES; POSITIVE MORPHOLOGY NO
[2017-08-23 05:50] LABS: Anion Gap 6 (5-15); BUN 16 mg/dL (7-18); BUN/Creat Ratio 21.9 RATIO (10-20); Calcium,Total 8.6 mg/dL (8.5-10.1); Chloride 105 mmol/L (98-107); Creatinine, Serum 0.73 mg/dL (0.70-1.30); EST Glomerular Filtration Rate 114 mL/min (>60); Est Glom Filt Rate - Afr Amer 138 mL/min (>60); Estimated Creatinine Clearance 81.01 ml/min; Glucose 58 mg/dL (74-106); Sodium Level 139 mmol/L (136-145)
[2017-08-23 05:51] LABS: Differential Comment SCANNED; Reactive Lymphocyte 2+
--- NOTE | 2017-08-23 05:53 | LEAS ---
Arterial Study - Arterial Study Arterial Study: Bilateral lower extremity noninvasive arterial exam at rest Right lower extremity The right low thigh index is 1.08. The calf index is 0.74. The right PT and DP ankle-brachial indices at rest are 0.65 and 0.68 respectively. Doppler waveforms demonstrate biphasic right posterior tibial waveform and monophasic right dorsalis pedis. Volume pulse recordings do demonstrate amplification the calf and the ankle waveforms are mildly depressed Left lower extremity. The left low thigh index is 1.13. The calf index is 0.83. The left PT and DP ankle-brachial index 0.66 and 0.62 respectively. Left digital index is 0.36. Again the left posterior tibial Doppler waveform is biphasic in the dorsalis pedis is monophasic. Volume pulse recordings demonstrate amplification of the calf. The ankle and digital waveforms mildly depressed Impression Right lower extremity suggest distal superficial femoral/popliteal occlusive disease with ABIs in the range of vascular claudication. Doppler waveforms suggest occlusion of the right tibialis anterior digital inspection was not performed on the right. These are consistent with clinically significant vascular occlusive disease. Left lower extremity suggest distal superficial femoral-popliteal occlusive disease with additional suspicion of occlusion of the tibialis anterior. Findings again are well within the range of vascular claudication. Diminished digital indices suggest distal small vessel disease/multisegmental occlusive disease. Again findings are consistent with clinically significant vascular occlusive disease Kyle Borges M.D., F.A.C.S.
[2017-08-23] MEDS: oxyCODONE 5 MG Tablet PO ×3 (06:16→17:01)
[2017-08-23] MEDS: Levothyroxine 100 MCG Tablet PO (06:17)
[2017-08-23] MEDS: Piperacil/Tazobactam 3.375 GM/50 ML ML IV (06:17)
[2017-08-23 06:37] LABS: Bedside Glucose 60 mg/dL (70-110)
[2017-08-23 06:56] LABS: Bedside Glucose 134 mg/dL (70-110)
--- NOTE | 2017-08-23 09:46 | PN_ITS ---
Patient Problems: Active and Suspected Problems redness of right second toe (Acute) swelling of right second toe (Acute) Subjective: Patient was seen and examined. He feels well. Denies any fever or chills or nausea or vomiting or diarrhea. Pain in his right foot is 6 out of 10. Objective: Physical Exam General: Alert, Oriented x3, Cooperative, No apparent distress, Well developed, Well nourished HEENT: Atraumatic, PERRLA, EOMI, Normocephalic Oral: Moist Mucosa Neck: Supple, No JVD Lungs: Clear to auscultation, Normal air movement, No wheeze or rales Cardiovascular: Regular rate, Regular Rhythm, Normal S1, Normal S2, No murmurs, No Ectopic Activity, PMI Normal, No rub noted, No Gallop Abdomen: Bowel Sounds Present, Soft, Non Tender, Non-Distended, Hernia Extremities: Capillary Refill Less than 3 Seconds, Edema - Generalized edema is noted over both lower legs worse on the right, right foot has been dressed in gauze and LISA wrapped. Erythema over the right lower leg improved today. Skin: No breakdown, Right lower leg and foot dressed in gauze and LISA-wraps. Musculoskeletal: No Muscle Wasting Neurological: Cranial nerves II-XII grossly intact, Neuro grossly intact, Muscle tone normal, Sensory exam intact to light touch and pain, Coordination normal Psych/Mental Status: Normal Affect, Appropriate, Alert and oriented to time, place, person, mood and affect Vitals/I&O's: Vital Signs Temp Pulse Resp BP Pulse Ox 98.5 F 73 16 149/80 H 93 08/23/17 02:13 08/23/17 02:13 08/23/17 02:13 08/23/17 02:13 08/23/17 02:13 Oxygen Delivery Method Room Air Weight: 146.3 kg Body Mass Index (BMI) 42.5 Intake and Output for Last 24 Hours 08/21/17 08/22/17 08/23/17 23:59 23:59 23:59 Intake Total 2314 / 2314 886 / 886 Balance 2314 / 2314 886 / 886 Microbiology Past 72 Hours 08/21/17 19:20 Wound - Toe Gram Stain - Final Laboratory Results 08/22/17 13:48: POC Glucose 144 H 08/22/17 17:01: POC Glucose 181 H 08/22/17 22:21: POC Glucose 124 H 08/23/17 05:10: WBC 10.0, RBC 4.80, Hgb 14.3, Hct 44.9, MCV 93.5, MCH 29.8, MCHC 31.8 L, RDW 13.4, RDW Differential 44.3 H, Plt Count 287, MPV 9.2, Immature Gran % (Auto) 0.200, Neut % (Auto) 67.0, Lymph % (Auto) 15.6 L, [place] % (Auto) 15.3 H, Eos % (Auto) 1.7, Baso % (Auto) 0.2, Absolute Neuts (auto) 6.7, Absolute Lymphs (auto) 1.55, Total Counted Not Reportable, Differential Comment SCANNED, Reactive Lymphocytes 2+ 08/23/17 05:10: Sodium 139, Potassium 4.0, Chloride 105, Carbon Dioxide 28.0, Anion Gap 6, BUN 16, Creatinine 0.73, Estim Creat Clear Calc 81.01, Est GFR ( MDRD) Af Amer 138, Est GFR (MDRD) Non-Af 114, BUN/Creatinine Ratio 21.9 H, Glucose 58 L, Calcium 8.6 08/23/17 06:14: POC Glucose 60 L 08/23/17 06:48: POC Glucose 134 H Current Medications Acetaminophen (Tylenol) 650 mg PO Q6H PRN PRN PRN Reason: Mild Pain (scale 0-3)/T>100.7 Last Admin: 08/23/17 02:21 Dose: 650 mg Dextrose (D50w Syringe) 0 gm IV X1 PRN; Protocol PRN Reason: Hypoglycemia Enoxaparin Sodium (Lovenox) 40 mg SC DAILY@1000 LIZZY Last Admin: 08/22/17 10:04 Dose: 40 mg Glucagon () 1 mg IM .X1 PRN PRN Reason: Hypoglycemia Piperacillin Sod/Tazobactam Sod (Zosyn) 3.375 gm in 50 mls @ 12.5 mls/hr IV Q8 [facility] Last Admin: 08/23/17 06:17 Dose: 12.5 mls/hr Insulin Aspart (Novolog Flexpen (Bkc)) 0 units SC TIDAC [facility] PRN Reason: Protocol Last Admin: 08/23/17 06:17 Dose: Not Given Insulin Detemir (Levemir (Bkc)) 80 units SC BID [facility] Last Admin: 08/22/17 22:24 Dose: 80 units Levothyroxine Sodium (Synthroid) 100 mcg PO DAILY@0600 [facility] Last Admin: 08/23/17 06:17 Dose: 100 mcg Magnesium Hydroxide (Milk Of Magnesia) 30 ml PO DAILY PRN PRN PRN Reason: Constipation Ondansetron HCl (Zofran) 4 mg IV Q8H PRN PRN PRN Reason: Nausea Oxycodone HCl (Oxyir) 5 mg PO Q4H PRN PRN PRN Reason: Moderate Pain (pain scale 4-5) Last Admin: 08/23/17 06:16 Dose: 5 mg Pioglitazone HCl (Actos) 45 mg PO DAILY [facility] Last Admin: 08/22/17 10:03 Dose: 45 mg Sodium Chloride () 5 - 30 ml IV UD PRN PRN Reason: SALINE FLUSH Last Admin: 08/22/17 14:13 Dose: 10 ml Assessment/Plan Active and Suspected Problems redness of right second toe (Acute) swelling of right second toe (Acute) 67 year old M with PMHx of type 2DM, obesity admitted with swelling and redness in his right second toe of 1 day duration. 1. Sepsis secondary to right second toe cellulitis, wound cultures growing staph aureus, off vancomycin, on IV Zosyn, ID consulted, recommend cefazolin, will continue to monitor patient's vitals closely. 2. Acute cellulitis/ulcer of the right second toe, on IV cefazolin (day 3) 3. PAD, severe with progressive distal disease, JASMYN is 0.68 in right DP and 0.66 in left DP, no signs of active ischemia, will put patient on aspirin, vascular consulted - Dr. Ruiz discussed with Dr. Borges. 4. type 2 DM, BS are stable, on Actos and Levemir insulin, home metformin on hold, will continue accucheks. 5. Hypothyroidism, on levothyroxine 6. Morbid Obesity, lifestyle changes and weight loss recommended. 7. DVT PPx with Lovenox SC 8. Disposition: Possible DC home with maybe home health. Code Visit Inpatient E&M: 82108 [facility] Hosp L2
[2017-08-23 10:00] VITALS: BP 137/62; PULSE 80; RESP 16; TEMP 36.8; O2SAT 97
[2017-08-23] MEDS: Pioglitazone Hydrochloride 45 MG Tablet PO (10:07)
[2017-08-23] MEDS: Enoxaparin 40 MG/0.4 ML Syringe SC (10:07)
--- NOTE | 2017-08-23 11:19 | PCM.HP.ID ---
Problem List (1) redness of right second toe Status: Acute Reason for Consult: toe infection Consulted by: Dr. Ruiz History of Present Illness: The patient is a 67 year old M with DM who presented with R 2nd toe swelling, redness, pain. No drainage. Sx started when he stubbed his toe on 08/20. No fever or chills. No h/o abscess or MRSA infection. Redness spread up mid-[place]. No outpt abx. Came to ED, MRI done, podiatry consulted, given clinda, changed to vanc/zosyn. PCR now with MSSA, so vanc stopped. Feeling better, wants to go home, pain and redness much improved. Full ROS performed and neg except as noted above. - Medical History Allergies/Adverse Reactions: Allergies No Known Allergies Allergy (Verified 08/21/17 13:56) Home Medications: Ambulatory Orders Medication Instructions Recorded Canagliflozin [Invokana] 100 mg PO DAILY 08/21/17 Insulin Glargine,Hum.rec.anlog 160 unit SC DAILY 08/21/17 [Toujeo Solostar] Levothyroxine Sodium [Synthroid] 100 mcg PO DAILY 08/21/17 Pioglitazone [Actos] 45 mg PO DAILY 08/21/17 Sitagliptin Phos/Metformin HCl 1 tab PO BID 08/21/17 [Janumet Xr 50-1,000 mg Tablet] - Social History SMOKING STATUS:: Former smoker Vital Signs Temp Pulse Resp BP Pulse Ox 98.2 F 80 16 137/62 H 97 08/23/17 10:00 08/23/17 10:00 08/23/17 10:00 08/23/17 10:00 08/23/17 10:00 Oxygen Delivery Method Room Air Weight: 146.3 kg Body Mass Index (BMI) 42.5 Microbiology Past 72 Hours 08/21/17 19:20 Gram Stain - Final Wound - Toe Wound Culture - Preliminary Staphylococcus aureus Laboratory Tests Past 24 Hrs 08/23/17 08/23/17 05:10 05:10 WBC 10.0 RBC 4.80 Hgb 14.3 Hct 44.9 MCV 93.5 MCH 29.8 MCHC 31.8 L RDW 13.4 RDW Differential 44.3 H Plt Count 287 MPV 9.2 Immature Gran % (Auto) 0.200 Neut % (Auto) 67.0 Lymph % (Auto) 15.6 L [place] % (Auto) 15.3 H Eos % (Auto) 1.7 Baso % (Auto) 0.2 Absolute Neuts (auto) 6.7 Absolute Lymphs (auto) 1.55 Total Counted Not Reportable Differential Comment SCANNED Reactive Lymphocytes 2+ Sodium 139 Potassium 4.0 Chloride 105 Carbon Dioxide 28.0 Anion Gap 6 BUN 16 Creatinine 0.73 Estim Creat Clear Calc 81.01 Est GFR (MDRD) Af Amer 138 Est GFR (MDRD) Non-Af 114 BUN/Creatinine Ratio 21.9 H Glucose 58 L Calcium 8.6 - Other Studies Radiology: [] reviewed Other Studies: [] Route of nutrition/ use of supplements: [] Nutritional Intake: [] IV Site: [] Butler Catheter: [] - Physical Exam General: Alert, Oriented x3, Cooperative, No apparent distress HEENT: Atraumatic, PERRLA, EOMI Neck: Supple, No Nodes Lungs: Clear to auscultation, Normal air movement Cardiovascular: Regular rate, Regular Rhythm, No murmurs Abdomen: Bowel Sounds Present, Soft, Non Tender, Non-Distended Extremities: Edema Skin: Ulcer/ Wound - R 2nd toe wrapped, improved surrounding erythema IV Site: Peripheral, without redness Musculoskeletal: No Tenderness to Palpation of Joints or Extremities Neurological: Cranial nerves II-XII grossly intact - Assessment/Plan Antibiotics: [] Assessment/Plan: [] Active and Suspected Problems redness of right second toe (Acute) swelling of right second toe (Acute) R 2nd toe MSSA infection with DM and PAD - improving. Narrow abx to cefazolin. Plan on d/c home on po keflex for one more week course; may need course extended based on wound healing. No osteo seen on MRI. Will need vascular eval. Podiatry following. Thank you, will follow. D/w Dr. Archuleta and caseworker protective services.
[2017-08-23 12:26] LABS: Bedside Glucose 122 mg/dL (70-110)
--- NOTE | 2017-08-23 12:59 | PN_ITS ---
Patient Problems: Active and Suspected Problems redness of right second toe (Acute) swelling of right second toe (Acute) Subjective: Patient seen today for follow up on right foot. Patient has no new complaints. He was evaluated by Infectious Disease today. Patient denies fever, chills, nausea, or vomiting. - Physical Exam General: Alert, Oriented x3, Cooperative, No apparent distress Extremities: Capillary Refill Less than 3 Seconds, No Calf Tenderness, - - There is cellulitis and edema to the right 2nd toe with ulceration down to the superficial subcutaneous tissue layer dorsal aspect and to nail bed, there is no probe to bone or joint, there is dry eschar to the dorsal aspect of the 2nd toe, lymphangitis to the foot and this cellulitis and lymphangitis extends to the distal leg which continues to improve; there is no maloder, no thea purulence, no visible abscess noted to the toes, foot, ankle or leg. There is a callus ulceration to the plantar medial right hallux down to subcutaneous tissue layer with no evidence of infection, overlying callus and nonviable tissue was debrided away and ulceration measures 7mm x 7mm and down to the subcutaneous tissue. There are no other open ulcerations noted to the foot. CFT < 2seconds to all toes bilaterally. There is edema to the right 2nd toe, foot, and leg which is improving; no edema on the left foot/ankle/leg. He has diabetic neuropathy bilateral lower extremity. Vital Signs Temp Pulse Resp BP Pulse Ox 98.2 F 80 16 137/62 H 97 08/23/17 10:00 08/23/17 10:00 08/23/17 10:00 08/23/17 10:00 08/23/17 10:00 Oxygen Delivery Method Room Air Weight: 146.3 kg Body Mass Index (BMI) 42.5 Intake and Output for Last 24 Hours 08/21/17 08/22/17 08/23/17 23:59 23:59 23:59 Intake Total 2314 / 2314 1214 / 1214 Balance 2314 / 2314 1214 / 1214 Microbiology Past 72 Hours 08/21/17 19:20 Gram Stain - Final Wound - Toe Wound Culture - Preliminary Staphylococcus aureus Laboratory Tests Past 24 Hrs 08/23/17 08/23/17 08/23/17 05:10 05:10 05:10 WBC 10.0 RBC 4.80 Hgb 14.3 Hct 44.9 MCV 93.5 MCH 29.8 MCHC 31.8 L RDW 13.4 RDW Differential 44.3 H Plt Count 287 MPV 9.2 Immature Gran % (Auto) 0.200 Neut % (Auto) 67.0 Lymph % (Auto) 15.6 L Baxter % (Auto) 15.3 H Eos % (Auto) 1.7 Baso % (Auto) 0.2 Absolute Neuts (auto) 6.7 Absolute Lymphs (auto) 1.55 Total Counted Not Reportable Differential Comment SCANNED Reactive Lymphocytes 2+ Sodium 139 Potassium 4.0 Chloride 105 Carbon Dioxide 28.0 Anion Gap 6 BUN 16 Creatinine 0.73 Estim Creat Clear Calc 81.01 Est GFR (MDRD) Af Amer 138 Est GFR (MDRD) Non-Af 114 BUN/Creatinine Ratio 21.9 H Glucose 58 L Hemoglobin A1c Pending Calcium 8.6 POC Glucose 08/23/17 08/23/17 08/23/17 12:15 06:48 06:14 POC Glucose 122 H 134 H 60 L 08/22/17 08/22/17 08/22/17 22:21 17:01 13:48 POC Glucose 124 H 181 H 144 H Assessment/Plan Active and Suspected Problems redness of right second toe (Acute) swelling of right second toe (Acute) Cellulitis/lymphangitis right 2nd toe, extending to foot and leg Concern for osteomyelitis right 2nd toe Ulceration right 2nd toenail bed Diabetic w/ peripheral neuropathy Ulcer right hallux down, down to subcutaneous layer Diagnostic data shwoing WBC now remains normal afebrile, right xrays of the right foot with no gas or evidence of bone involvement, MRI was negative for osteomyelitis per Dr. Kennedy, radiologist. Final culture results pending, so far showing MSSA, MRSA DNA PCR negative. Continue with antibiotic therapy per Infectious Disease, appreciate input and recommendations. Clinically there has been continued improvement, but still with cellulitis to 2nd toe and dorsal foot Continue with wound care and offloading right foot. A dressing was applied which consisted of Aquacel Ag, gauze, and sascha dressing. Change daily. Will order surgical shoe for patient. The right hallux ulceration was debrided in excisional fashion using a 15 blade down to subcutaneous tissue layer removing the overlying HPK, nonviable tissue. No anesthesia was needed due to patient's diabetic neuropathy. Hemostasis achieved with light pressure and gauze. A dressing was applied which consisted of Aquacel Ag, gauze, and sascha dressing. Change daily. Noninvasive lower extremity arterial studies were ordered and reviewed. Reviewed report, he has significant vascular disease present. Dr. Kyle Borges was consulted from vascular for further evaluation/recommendations. Spoke with social work, and will set up home health for dressing changes. Also patient to follow up with wound center, Dr. Monge or Dr. Radford once discharged for advanced wound care. Further medical management per medicine team. I did speak with and review case and findings with Dr. Archuleta today. Podiatry will continue to follow.
--- NOTE | 2017-08-23 13:36 | CASEMGMT ---
Call received from Dr. bowden requesting home health be set up for dressing changes on dc. Also requested appointment be made with Dr. Monge on discharge. Geographical Historian making f/u appointment. -Insurance review via MMO website. [facility] is [employer]. -Intro role of CM to patient in room. discussed Dr. Bowden's dc plan. Pt is agreeable. Questions answered. -Call to [facility], Intake person, they will review but anticipate will be able to start care on 08/26/17. Referral faxed to [phone]. Linda LONGN RN ACM
[2017-08-23 13:51] LABS: Hemoglobin A1c 6.5 % (4.2-6.3)
[2017-08-23] MEDS: Cefazolin 2 GM in 0.9% Normal Saline 100 ML IV ×2 (14:44→22:16)
[2017-08-23] MEDS: 0.9% NaCl Peripheral Flush Adult/Peds IV (14:44)
[2017-08-23 14:50] VITALS: BP 149/67; PULSE 80; RESP 16; TEMP 37.2; O2SAT 93
[2017-08-23 18:25] LABS: Bedside Glucose 115 mg/dL (70-110)
--- NOTE | 2017-08-23 19:32 | CON.PCM_ITS ---
Reason for Consult Date of Consultation: 08/23/17 History of Present Illness: The patient is a 67 year old M who I am being asked by Dr. Ruiz to see because of peripheral vascular occlusive disease. Electronic copy my surgical consult will be present in the chart. Primary care physician is Dr. Ricketts. Mr. Palacios is a 67-year-old gentleman. Morbidly obese with a body weight of in excess of 325 pounds. He has been type 2 headache for multiple years. He has diabetic neuropathy. He claims that 5 days ago he stopped his right foot second toe. There was damage to the nail. He was hospitalized at the [facility] on August 21, 2017 with acute cellulitis of the right second toe. White blood cell count at that time was 14.1. There were no fractures or bone erosion on plain films. He was seen in consultation by Dr. Ruiz and Dr Rowland.. Patient has MSSA infection which is felt to be improving. Antibiotics have been narrowed to cefazolin.. No osteomyelitis is seen MRI. Noninvasive testing demonstrates a right PT and DP JASMYN of 0.65 and 0.68. The left JASMYN 0.66 and 0.62. Digital indices were not obtained on the right. On the left they are 0.36. Higher to this episode the patient states that he was still going to work daily. 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 His legs came down constantly. He denies rest pain at night. He denies calf claudication. He does have neuropathy so feeling is diminished. He denies any previous history of deep venous thrombosis or superficial thrombophlebitis. Currently his white blood cell count is improved to 10. Hemoccult 14.3 hematocrit 44.9. Reticulocyte count 287,000. No shift on his differential. BUN is 16 and creatinine 0.73. His glucose is currently well managed with a fingerstick of 115 Denies history of CVA or LA. Past Medical History Allergies No Known Allergies Allergy (Verified 08/21/17 13:56) Home Medications: Ambulatory Orders Medication Instructions Recorded Canagliflozin [Invokana] 100 mg PO DAILY 08/21/17 Insulin Glargine,Hum.rec.anlog 160 unit SC DAILY 08/21/17 [Toujeo Solostar] Levothyroxine Sodium [Synthroid] 100 mcg PO DAILY 08/21/17 Pioglitazone [Actos] 45 mg PO DAILY 08/21/17 Sitagliptin Phos/Metformin HCl 1 tab PO BID 08/21/17 [Janumet Xr 50-1,000 mg Tablet] Surgical History: tonsillectomy Psychiatric History: No pertinent psych hx Lives: Spouse/ Significant Other Smoking Status: Former smoker Tobacco Use: Non-smoker Alcohol: None Drugs: None - *Family History Maternal History Items: No pertinent history Paternal History Items: Diabetes, Heart Disease, Hypertension Review of Systems Constitutional: Denies: Anorexia Eyes: Denies: Blurred vision HEENT: Denies: Difficulty Hearing Cardiovascular: Denies: Chest Pain Respiratory: Reports: Cough Gastrointestinal: Denies: Abdominal Pain Genitourinary: Denies: Dysuria Musculoskeletal: Denies: Arm Pain Skin: Denies: Dryness Neurological: Denies: Balance problems Psychiatric: Denies: Anxiety Endocrine: Denies: Change in Body Habitus Hematologic/ Lymphatic: Reports: Adenopathy Patient Problems: Active and Suspected Problems redness of right second toe (Acute) swelling of right second toe (Acute) - Physical Exam General: Alert, Oriented x3, Cooperative HEENT: Atraumatic Oral: Moist Mucosa Neck: Supple Lungs: Clear to auscultation Cardiovascular: Regular rate, - - Bilateral carotids are 3+. No bruits. Bilateral brachials and radials are 3+. Bilateral femorals extraordinarily difficult to feel because of patient body habitus. Bilateral popliteals are 2+ . Bilateral DP and PT pulses are not palpable Abdomen: Obese Extremities: - - Erythema extending up the right baldwin with pitting edema. Bilateral feet are warm. Capillary refill of the heels is reasonably intact at less than 2 seconds. Nontender. Dressings are in place the right second toe. Hyperpigmentation noted bilateral lower extremities Musculoskeletal: No Tenderness to Palpation of Joints or Extremities Neurological: - - Is alert aware of his situation and place Psych/Mental Status: Normal Affect Vital Signs Temp Pulse Resp BP Pulse Ox 98.9 F 80 16 149/67 H 93 08/23/17 14:50 08/23/17 14:50 08/23/17 14:50 08/23/17 14:50 08/23/17 14:50 Oxygen Delivery Method Room Air Weight: 322 lb 8.58 oz Body Mass Index (BMI) 42.5 Intake and Output for Last 24 Hours 08/21/17 08/22/17 08/23/17 23:59 23:59 23:59 Intake Total 2314 / 2314 1768 / 1768 Balance 2314 / 2314 1768 / 1768 Microbiology Past 72 Hours 08/21/17 19:20 Gram Stain - Final Wound - Toe Wound Culture - Preliminary Staphylococcus aureus Laboratory Tests Past 24 Hrs 08/23/17 08/23/17 08/23/17 05:10 05:10 05:10 WBC 10.0 RBC 4.80 Hgb 14.3 Hct 44.9 MCV 93.5 MCH 29.8 MCHC 31.8 L RDW 13.4 RDW Differential 44.3 H Plt Count 287 MPV 9.2 Immature Gran % (Auto) 0.200 Neut % (Auto) 67.0 Lymph % (Auto) 15.6 L Mckean % (Auto) 15.3 H Eos % (Auto) 1.7 Baso % (Auto) 0.2 Absolute Neuts (auto) 6.7 Absolute Lymphs (auto) 1.55 Total Counted Not Reportable Differential Comment SCANNED Reactive Lymphocytes 2+ Sodium 139 Potassium 4.0 Chloride 105 Carbon Dioxide 28.0 Anion Gap 6 BUN 16 Creatinine 0.73 Estim Creat Clear Calc 81.01 Est GFR (MDRD) Af Amer 138 Est GFR (MDRD) Non-Af 114 BUN/Creatinine Ratio 21.9 H Glucose 58 L Hemoglobin A1c 6.5 H Calcium 8.6 POC Glucose 08/23/17 08/23/17 08/23/17 17:03 12:15 06:48 POC Glucose 115 H 122 H 134 H 08/23/17 08/22/17 06:14 22:21 POC Glucose 60 L 124 H Assessment/Plan Active and Suspected Problems redness of right second toe (Acute) swelling of right second toe (Acute) By report the patient clinically is improving with the currently recommended medical treatment program. Clearly he has a degree of peripheral vascular occlusive disease. The patient however is not immediately interested in proceeding with vascular intervention. I believe that it is very reasonable to pursue ongoing medical maximization of his care. I believe that he has a reasonable amount of large vessel inflow with a good chance of resolution. The patient however is very much aware that he likely has clinically significant infrageniculate bilateral extremity occlusive disease with likely additional distal small vessel disease of the digits. As his infection initiated in his right second toe he may require supplemented large vessel inflow. I have discussed with him a abdominal pelvic right lower extremity arteriogram with possible endovascular intervention. Unfortunately his body habitus will make accessing his common femoral arteries challenging. I am not able to reach his lower extremities via a brachial approach. The patient has had an opportunity to ask and have questions answered. At this point as clinical improvement is being noted we will continue to observe. I anticipate seeing the patient back in my office 1 week after discharge. We can then further discuss whether endovascular intervention would be pertinent or required. I appreciate the ongoing opportunity of assisting with surgical care. Kyle Borges M.D., F.A.C.S.
[2017-08-23 20:22] VITALS: BP 166/63; PULSE 76; RESP 18; TEMP 36.8; O2SAT 98
[2017-08-23 22:25] LABS: Bedside Glucose 120 mg/dL (70-110)
[2017-08-23] MEDS: Temazepam 15 MG Capsule PO (23:08)
[2017-08-24] MEDS: Acetaminophen 325 MG Tablet 650 MG PO (03:59)
[2017-08-24 04:00] VITALS: BP 180/92; PULSE 84; RESP 16; TEMP 36.1; O2SAT 97
[2017-08-24] MEDS: oxyCODONE 5 MG Tablet PO ×2 (04:00→07:43)
--- NOTE | 2017-08-24 04:06 | NURSING ---
PT AWOKEN FOR VS/FOCAL ASSESSMENT. AGITATED THAT HE HAS NOT BEEN AWOKEN EVERY 4 HOURS FOR PAIN MEDICATION. THIS RN REMINDED HIM THAT HE REQUESTED A SLEEPING PILL D/T LACK OF SLEEP IN PRIOR NIGHTS. ADVISED HIM THAT WHEN HE IS AWAKE HE CAN LET US KNOW HE NEEDS PAIN MEDICATION. PT REMAINS AGITATED. PAIN MEDICATION PROVIDED.
--- NOTE | 2017-08-24 05:44 | PCM.PN.SRG ---
Patient Problems: Active and Suspected Problems redness of right second toe (Acute) swelling of right second toe (Acute) Subjective: Pt states he feels better He thinks he will be discharged today - Physical Exam Extremities: - - Slightly decreased erythema and swelling LLE Vital Signs Temp Pulse Resp BP Pulse Ox 97 F L 84 16 180/92 H 97 08/24/17 04:00 08/24/17 04:00 08/24/17 04:00 08/24/17 04:00 08/24/17 04:00 Oxygen Delivery Method Room Air Weight: 322 lb 8.58 oz Body Mass Index (BMI) 42.5 Intake and Output for Last 24 Hours 08/22/17 08/23/17 08/24/17 23:59 23:59 23:59 Intake Total 4 / 2314 1768 / 1768 667 / 667 Balance 2314 / 2314 1768 / 1768 667 / 667 Microbiology Past 72 Hours 08/21/17 19:20 Gram Stain - Final Wound - Toe Wound Culture - Preliminary Staphylococcus aureus Laboratory Tests Past 24 Hrs 08/23/17 08/23/17 08/23/17 05:10 05:10 05:10 Total Counted Not Reportable Differential Comment SCANNED Reactive Lymphocytes 2+ Sodium 139 Potassium 4.0 Chloride 105 Carbon Dioxide 28.0 Anion Gap 6 BUN 16 Creatinine 0.73 Estim Creat Clear Calc 81.01 Est GFR (MDRD) Af Amer 138 Est GFR (MDRD) Non-Af 114 BUN/Creatinine Ratio 21.9 H Glucose 58 L Hemoglobin A1c 6.5 H Calcium 8.6 POC Glucose 08/23/17 08/23/17 08/23/17 22:14 17:03 12:15 POC Glucose 120 H 115 H 122 H 08/23/17 08/23/17 06:48 06:14 POC Glucose 134 H 60 L Assessment/Plan Active and Suspected Problems redness of right second toe (Acute) swelling of right second toe (Acute) I recommend that if the pt is discharged that I see the pt in the office in 1 week for follow up re: PAD
[2017-08-24] MEDS: Cefazolin 2 GM in 0.9% Normal Saline 100 ML IV (06:34)
[2017-08-24] MEDS: Levothyroxine 100 MCG Tablet PO (06:34)
--- NOTE | 2017-08-24 06:44 | NURSING ---
PT NOTICEABLY AGITATED THIS AM. STATES HE WAS IN F*ING PAIN ALL NIGHT BECAUSE THE F*ING S*T YOU'RE GIVING ME DOESN'T DO S*T FOR MY PAIN. THIS RN OFFERED TO CONTACT DR BOLAÑOS TO SEE IF PAIN MEDICATIONS/SCHEDULE COULD BE CHANGED.
[2017-08-24 06:46] LABS: Bedside Glucose 66 mg/dL (70-110)
--- NOTE | 2017-08-24 06:49 | NURSING ---
PT GIVEN OJ AND SIERRA DOONES FOR MBS OF 66.
--- NOTE | 2017-08-24 07:25 | NURSING ---
MBS RETAKEN, NOW 89
[2017-08-24 07:30] LABS: Bedside Glucose 91 mg/dL (70-110)
[2017-08-24 07:34] VITALS: BP 135/63; PULSE 71; RESP 14; TEMP 36.7; O2SAT 93
[2017-08-24] MEDS: Aspirin 81 MG TAB.CHEW PO (07:44)
--- NOTE | 2017-08-24 10:35 | PCM.PN.ID ---
Patient Problems: Active and Suspected Problems redness of right second toe (Acute) swelling of right second toe (Acute) Subjective: Says he is leaving today. No fever, pain controlled, no n/v/d, foot redness much improved. - Physical Exam General: Alert, Cooperative, No apparent distress Lungs: Clear to auscultation, Normal air movement Cardiovascular: Regular rate, Regular Rhythm Abdomen: Soft, Non Tender, Non-Distended Skin: Ulcer/ Wound - Foot wrapped, redness much improved Vital Signs Temp Pulse Resp BP Pulse Ox 98.0 F 71 14 135/63 H 93 08/24/17 07:34 08/24/17 07:34 08/24/17 07:34 08/24/17 07:34 08/24/17 07:34 Oxygen Delivery Method Room Air Weight: 146.3 kg Body Mass Index (BMI) 42.5 Intake and Output for Last 24 Hours 08/22/17 08/23/17 08/24/17 23:59 23:59 23:59 Intake Total 2314 / 2314 1768 / 1768 1054 / 1054 Balance 2314 / 2314 1768 / 1768 1054 / 1054 Microbiology Past 72 Hours 08/21/17 19:20 Gram Stain - Final Wound - Toe Wound Culture - Final Staphylococcus aureus Anaerobic Culture - Preliminary Laboratory Tests Past 24 Hrs 08/23/17 05:10 Hemoglobin A1c 6.5 H POC Glucose 08/24/17 08/24/17 08/23/17 07:24 06:36 22:14 POC Glucose 91 66 L 120 H 08/23/17 08/23/17 17:03 12:15 POC Glucose 115 H 122 H Route of nutrition/ use of supplements: [] Nutritional Intake: [] IV Site: [] Butler Catheter: [] - Assessment/Plan Antibiotics: [] Assessment/Plan: [] Active and Suspected Problems redness of right second toe (Acute) swelling of right second toe (Acute) R 2nd toe MSSA infection with DM and PAD - improving. Narrowed abx to cefazolin. Ok for d/c home on po keflex for one more week course; may need course extended based on wound healing. No osteo seen on MRI. Seen by Dr. Borges. Podiatry following. will follow. D/w Dr. Archuleta and rn case management.
--- NOTE | 2017-08-24 11:14 | PCM.DC ---
- Discharge Diagnoses Current Active Problems: Current Active and Chronic Problems redness of right second toe (Acute) swelling of right second toe (Acute) Reason(s) for Visit for Discharge Instructions: Swelling and redness right 2nd toe You will use the following diet at home:: Calorie/Carbohydrate Controlled (specify 1200, 1400, etc), Cardiac Your food should be the consistency of: Regular Your liquids should be the consistency of: Regular/Thin Discharge Activity: Return to Normal Activity Additional Instructions: Follow on recommendations and dressing instructions from wax machine operator. Complete antibiotics. Allergies/Adverse Reactions: Allergies No Known Allergies Allergy (Verified 08/21/17 13:56) Medications to take at Discharge Canagliflozin [Invokana] 100 mg PO DAILY 08/21/17 Insulin Glargine,Hum.rec.anlog [Toujeo Solostar] 160 unit SC DAILY 08/21/17 Levothyroxine Sodium [Synthroid] 100 mcg PO DAILY 08/21/17 Pioglitazone [Actos] 45 mg PO DAILY 08/21/17 Sitagliptin Phos/Metformin HCl [Janumet Xr 50-1,000 mg Tablet] 1 tab PO BID 08/21/17 Aspirin [Aspirin, Baby] 81 mg PO DAILY@0800 #30 tab.chew 08/24/17 Cephalexin [Keflex] 500 mg PO Q6 #28 cap 08/24/17 Oxycodone [Oxyir] 5 mg PO Q4H PRN PRN 5 Days tab 08/24/17 The following prescriptions were given: Oxycodone [Oxyir] 5 mg PO Q4H PRN PRN 5 Days tab PRN Reason: Moderate Pain (pain scale 4-5) Aspirin [Aspirin, Baby] 81 mg PO DAILY@0800 #30 tab.chew Cephalexin [Keflex] 500 mg PO Q6 #28 cap Primary Care Physician: Floyd Ricketts DO [Primary Care Provider] - Please follow up with your Primary Care Physician in: within 2 weeks of discharge Please Follow Up With: Leticia Monge DPM When: within 1 week in the wound center Please Follow Up With: Kyle Borges MD When: within 1 week Proposed Discharge Date: 08/24/17
--- NOTE | 2017-08-24 11:19 | DCINST_ITS ---
- Discharge Diagnoses Current Active Problems: Current Active and Chronic Problems redness of right second toe (Acute) swelling of right second toe (Acute) Reason(s) for Visit for Discharge Instructions: Swelling and redness right 2nd toe You will use the following diet at home:: Calorie/Carbohydrate Controlled ( specify 1200, 1400, etc), Cardiac Your food should be the consistency of: Regular Your liquids should be the consistency of: Regular/Thin Discharge Activity: Return to Normal Activity Additional Instructions: Follow on recommendations and dressing instructions from hand brush filler. Complete antibiotics. Allergies/Adverse Reactions: Allergies No Known Allergies Allergy (Verified 08/21/17 13:56) Medications to take at Discharge Canagliflozin [Invokana] 100 mg PO DAILY 08/21/17 Insulin Glargine,Hum.rec.anlog [Toujeo Solostar] 160 unit SC DAILY 08/21/17 Levothyroxine Sodium [Synthroid] 100 mcg PO DAILY 08/21/17 Pioglitazone [Actos] 45 mg PO DAILY 08/21/17 Sitagliptin Phos/Metformin HCl [Janumet Xr 50-1,000 mg Tablet] 1 tab PO BID 12/31 Aspirin [Aspirin, Baby] 81 mg PO DAILY@0800 #30 tab.chew 08/24/17 Cephalexin [Keflex] 500 mg PO Q6 #28 cap 08/24/17 Oxycodone [Oxyir] 5 mg PO Q4H PRN PRN 5 Days tab 08/24/17 The following prescriptions were given: Oxycodone [Oxyir] 5 mg PO Q4H PRN PRN 5 Days tab PRN Reason: Moderate Pain (pain scale 4-5) Aspirin [Aspirin, Baby] 81 mg PO DAILY@0800 #30 tab.chew Cephalexin [Keflex] 500 mg PO Q6 #28 cap Primary Care Physician: Floyd Ricketts DO [Primary Care Provider] - Please follow up with your Primary Care Physician in: within 2 weeks of discharge Please Follow Up With: Leticia Monge DPM When: within 1 week in the wound center Please Follow Up With: Kyle Borges MD When: within 1 week Proposed Discharge Date: 08/24/17
--- NOTE | 2017-08-24 11:20 | PCM.DC.SUM ---
Discharge Date and Diagnosis Date of Admission: 08/22/17 Date of Discharge: 08/24/17 - Primary Discharge Diagnosis Active and Suspected Problems redness of right second toe (Acute) ulcer of right second toe (Acute) Type 2 DM PAD, severe - Secondary Discharge Diagnosis Hypertensin Type 2DM Hospital Course and Treatment Imaging Results: Clinical Impression(s) from Imaging Studies Foot X-Ray 08/21/17 16:38 IMPRESSION: Single radiolucency projecting over the soft tissue along the plantar aspect of the first toe, may be secondary to an underlying ulceration cannot entirely exclude a small focus of subcutaneous emphysema which could be secondary to an infectious process and/or trauma. Degenerative changes. Electronically Signed: Michelle Schafer MD at 16:56 EST Tel , Service support , Podiatry Infectious disease Operations: - Summary of Care Provided: 67 year old M with PMHx of type 2DM, obesity admitted with swelling and redness in his right second toe of 1 day duration. 1. Sepsis secondary to right second toe cellulitis, wound cultures growing staph aureus, started on Vancomycin and Zosyn, ID consulted, switched to cefazolin, discharged on 1 week of keflex 2. Acute cellulitis/ulcer of the right second toe, s/p bedside 2nd toe nail debridement. MRI of leg was negative for osteomyelitis. 3. PAD, severe with progressive distal disease, JASMYN is 0.68 in right DP and 0.66 in left DP, no signs of active ischemia, on aspirin, vascular consulted, will follow-up in the outpatient for further work-up. 4. type 2 DM, BS are stable, on Actos and Levemir insulin, metformin. 5. Hypothyroidism, on levothyroxine 6. Morbid Obesity, lifestyle changes and weight loss recommended. Discharge Diet: Low fat/ Low Cholesterol, 2000 mg Sodium Diet, Carb Control Diet Discharge Activity: Return to Normal Activity Home Medications: Medications to take at Discharge Canagliflozin [Invokana] 100 mg PO DAILY 08/21/17 Insulin Glargine,Hum.rec.anlog [Delmi Huang] 160 unit SC DAILY 08/21/17 Levothyroxine Sodium [Synthroid] 100 mcg PO DAILY 08/21/17 Pioglitazone [Actos] 45 mg PO DAILY 08/21/17 Sitagliptin Phos/Metformin HCl [Janumet Xr 50-1,000 mg Tablet] 1 tab PO BID 08/21/17 Aspirin [Aspirin, Baby] 81 mg PO DAILY@0800 #30 tab.chew 08/24/17 Cephalexin [Keflex] 500 mg PO Q6 #28 cap 08/24/17 Oxycodone [Oxyir] 5 mg PO Q4H PRN PRN 5 Days tab 08/24/17 Following Prescrptions Were Given to Patient: Oxycodone [Oxyir] 5 mg PO Q4H PRN PRN 5 Days tab PRN Reason: Moderate Pain (pain scale 4-5) Aspirin [Aspirin, Baby] 81 mg PO DAILY@0800 #30 tab.chew Cephalexin [Keflex] 500 mg PO Q6 #28 cap Primary Care Physician: Floyd Ricketts DO [Primary Care Provider] - Please follow up with your Primary Care Physician in: within 2 weeks of discharge Please Follow Up With: Leticia Monge DPM When: within 1 week in the wound center Please Follow Up With: Kyle Borges MD When: within 1 week Disposition: Home with Home Health Minutes spent on discharge:: 25 Patient Condition:: Stable Meaningful Use Info Meaningful Use Diagnoses (Choose all that apply): None applicable Code Visit Inpatient E&M: 07999 Disch Hosp
--- NOTE | 2017-08-24 11:35 | CASEMGMT ---
Addendum entered by Esteban Levy 08/24/17 13:11: Reviewed dc instructions with Dr. Ruiz. Script written for supplies and wound dressing changes. Updated Home Health order faxed to [facility]. Call to verify they can see pt this weekend. DC appointments printed to be given to pt. Linda BURKS Original Note: DC Planning review with [facility] nurse and Dr. Vaughn. Pt will need specific dressing change orders and script for supplies on dc. Per Dr. Vaughn, Dr. Ruiz will be coming to change dressing and this can be done by him. Home Health referral has been made, awaiting dressing change orders prior to faxing DC instructions to [facility]. Linda MÉNDEZ RN AC
[2017-08-24] MEDS: Pioglitazone Hydrochloride 45 MG Tablet PO (12:17)
[2017-08-24] MEDS: Enoxaparin 40 MG/0.4 ML Syringe SC (12:18)
[2017-08-24 12:30] LABS: Bedside Glucose 141 mg/dL (70-110)
--- NOTE | 2017-08-24 12:56 | PN_ITS ---
Subjective: Patient seen today for follow up on right foot. He relates to pain in the foot, relates it has improved since he has been here. He relates he is leaving today, has to go home to help his . He denies any fever, chills, nausea, or vomiting. - Physical Exam General: Alert, Oriented x3, Cooperative, No apparent distress Extremities: Capillary Refill Less than 3 Seconds, No Calf Tenderness, - - There is cellulitis and edema to the right 2nd toe with ulceration down to the superficial subcutaneous tissue layer dorsal aspect and to nail bed - improving , there is no probe to bone or joint, there is dry eschar to the dorsal aspect of the 2nd toe, lymphangitis resolved, much improved cellulitis, it is receeding and resolved from leg, much less to the foot, there is no maloder, no thea purulence, no visible abscess noted to the toes, foot, ankle or leg. There is a stable ulceration to the plantar medial right hallux down to subcutaneous tissue layer with no evidence of infection. There are no other open ulcerations noted to the foot. CFT < 2 seconds to all toes bilaterally. There is edema to the right 2nd toe, foot, and leg which is improving; no edema on the left foot/ankle/leg. He has diabetic neuropathy bilateral lower extremity. Vital Signs Temp Pulse Resp BP Pulse Ox 98.0 F 71 14 135/63 H 93 08/24/17 07:34 08/24/17 07:34 08/24/17 07:34 08/24/17 07:34 08/24/17 07:34 Oxygen Delivery Method Room Air Weight: 146.3 kg Body Mass Index (BMI) 42.5 Intake and Output for Last 24 Hours 08/22/17 08/23/17 08/24/17 23:59 23:59 23:59 Intake Total 2314 / 2314 1768 / 1768 1054 / 1054 Balance 2314 / 2314 1768 / 1768 1054 / 1054 Microbiology Past 72 Hours 08/21/17 19:20 Gram Stain - Final Wound - Toe Wound Culture - Final Staphylococcus aureus Anaerobic Culture - Preliminary Laboratory Tests Past 24 Hrs 08/23/17 05:10 Hemoglobin A1c 6.5 H POC Glucose 08/24/17 08/24/17 08/24/17 12:14 07:24 06:36 POC Glucose 141 H 91 66 L 08/23/17 08/23/17 22:14 17:03 POC Glucose 120 H 115 H Assessment/Plan Cellulitis/lymphangitis right 2nd toe, extending to foot and leg - much improved Ulceration right 2nd toenail bed and dorsal toe down to subcutaneous layer Diabetic w/ peripheral neuropathy Ulcer right hallux down, down to subcutaneous layer Diagnostic data showing WBC now remains normal afebrile, right xrays of the right foot with no gas or evidence of bone involvement, MRI was negative for osteomyelitis per Dr. Kennedy, radiologist. Culture grewMSSA, MRSA DNA PCR negative. Continue with antibiotic therapy per Infectious Disease, appreciate input and recommendations - he is going to be discharged on oral Keflex. Clinically there has been continued improvement, much less redness today/ resolving cellulitis Continue with wound care and offloading right foot. A dressing was applied which consisted of Aquacel Ag, gauze, and sascha dressing. Change daily. Offloading surgical shoe to right foot. Home health has been ordered. Dr. Kyle Borges was consulted and he evaluated patient - no intervention at this time - he is to follow up with Dr. Borges as outpt. Patient to follow up with wound center, Dr. Monge or Dr. Radford, for advanced wound care as outpt. Patient requested work note, work note written for patient. Further medical management per medicine team.
== END 2017-08-24 14:11 | disposition home health service (06) | DRG 854 ==
LOC: ED 16:46 → MS2 20:25
PROVIDERS: Podiatrist; Admitting Provider Internal Medicine; Emergency Provider Emergency Medicine; Family Provider Family Medicine; PCP Family Medicine; Visit Provider Internal Medicine
DX: A41.9 Sepsis, unspecified organism (principal); Z68.41 Body mass index [BMI] 40.0-44.9, adult; E11.42 Type 2 diabetes mellitus with diabetic polyneuropathy; L97.518 Non-pressure chronic ulcer of other part of right foot with other specified severity; E66.01 Morbid (severe) obesity due to excess calories; L97.519 Non-pressure chronic ulcer of other part of right foot with unspecified severity; E11.621 Type 2 diabetes mellitus with foot ulcer; L03.031 Cellulitis of right toe; E03.9 Hypothyroidism, unspecified; B95.61 Methicillin susceptible Staphylococcus aureus infection as the cause of diseases classified elsewhere; I89.1 Lymphangitis; L84 Corns and callosities; S91.204A Unspecified open wound of right lesser toe(s) with damage to nail, initial encounter; X58.XXXA Exposure to other specified factors, initial encounter; Z87.891 Personal history of nicotine dependence; Z79.4 Long term (current) use of insulin; Z79.899 Other long term (current) drug therapy; E11.51 Type 2 diabetes mellitus with diabetic peripheral angiopathy without gangrene
CPT/HCPCS: 97597; 36415; 73630; 80048; 82962; 83036; 83605; 85025; 87070; 87075; 87077; 87186; 87205; 87640; 93923; 99218; 99282; J7040; J7050; A4216; G0378; J2405

== ENCOUNTER 2017-09-12 14:23 | Outpatient (RCR) | payer OTHER, SELFPAY ==
[2017-09-12 15:30] VITALS: BP 135/75; PULSE 85; RESP 18; TEMP 37.2
--- NOTE | 2017-09-12 16:20 | PN.PCM_ITS ---
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 Code(s): L97.513 - Non-pressure chronic ulcer of other part of right foot with necrosis of muscle (2) Ulcer of right foot with fat layer exposed Status: Chronic Code(s): L97.512 - Non-pressure chronic ulcer of other part of right foot with fat layer exposed (3) Osteomyelitis Status: Suspected Code(s): M86.9 - Osteomyelitis, unspecified (4) PAD (peripheral artery disease) Status: Chronic Code(s): I73.9 - Peripheral vascular disease, unspecified (5) Type 2 diabetes mellitus with diabetic polyneuropathy Status: Chronic Code(s): E11.42 - Type 2 diabetes mellitus with diabetic polyneuropathy (6) Gangrene of toe of right foot Status: Chronic Code(s): I96 - Gangrene, not elsewhere classified (7) Hallux limitus Status: Chronic Qualifiers: Laterality: right Qualified Code(s): M20.5X1 - Other deformities of toe(s) (acquired), right foot Code(s): M20.5X9 - Other deformities of toe(s) (acquired), unspecified foot Type of Wound Date of Service: 09/13/17 Chief Complaint: Ongoing right foot ulcers with continued gangrene History of Wound: This 67-year-old male with multiple comorbidities is following up with the wound care center for continued treatment of gangrene and wounds to the right first and second toe. He was initially treated for infection at [facility] with an admission about 1 month ago. At that time small vessel disease was noted and infectious disease also treated him. Today, he denies fever, chill, nausea, vomiting, foot pain. He has been changing the dressing daily with hydrogel. He understands he is at risk for limb loss. He is interested in doing the fastest treatment and asked about amputation options today. His is very sick and he does not want to proceed with treatment such as hyperbaric oxygen, weekly wound visit. He denies new injuries or odor to the foot. He denies current cramping with walking. He does have rest paresthesias consistent with neuropathy. Progress of Wound: Worse - Physical Exam Vital Signs Temp Pulse Resp BP 98.9 F 85 18 135/75 H 09/12/17 15:30 09/12/17 15:30 09/12/17 15:30 09/12/17 15:30 General: Alert, Oriented x3, Cooperative Extremities: No cyanosis, Capillary Refill Less than 3 Seconds - Digits right foot 1, 3, 4, 5. There is no capillary refill time to the distal right second toe; there is gangrene and continued devitalized tissue, No Calf Tenderness - Negative Candice and Vera sign bilateral, Diminished Peripheral Pulses - Nonpalpable DP pulse right, Edema Skin: Ulcer/ Wound - Second toe has continued gangrene, fibrous, devitalized liquefied tissue including unhealthy extensor tendon. The distal proximal phalanx head is also exposed this is still firm to touch and is concerning due to the chronicity of the wound. There is no purulence, erythema, streaking noted Wound Measurements and Assessment WC - Nurse 1 - General Ulcer Measurement Start: 09/12/17 15:07 Freq: Status: Active Protocol: Activity Type Activity Date Activity User E-Sign Co-Sign Detail Recorded Client Recorded Date Recorded By Document 09/12/17 15:30 [id number] 09/12/17 15:42 RB 09/12/17 15:30 Wound Center Nurse 1 [Ulcer Assessment] 2.RIGHT HALLUX -Combined with other wound No -Current Size (cm) - Length 0.3 -Current Size (cm) - Width 0.4 -Current Size (cm) - Depth 0.1 -Total Square Cm 0.12 -Photo Taken Yes -Epithelialization Small 1-33% -Tunneling No -Undermining/Tunneling No -Circular Undermining No -Classification - Thickness Full Thickness without Exposed Support Structure -Exudate Amt Small (1-33%) -Exudate Type Serosanguineous -Wound Margin Distinct, Outline Attached -Granulation Amt Medium (34-66%) -Granulation Quality Red -Necrosis Amt Medium (34-66%) -Necrotic Tissue Type Adherent Slough -Structure Exposed N/A -Texture (Maxine-wound Skin Appearance) Callus -Moisture (Maxine-wound Skin Appearance Assessed ) -Color (Maxine-wound Skin Appearance) Assessed -Temperature (Maxine-wound Skin No Abnormality Appearance) (Pt Warm) -Tenderness on Palpation (Maxine-wound No Skin Appearance) -Ulcer Cleansing Rinsed/ Irrigated with Saline -Foul Odor after Cleansing No -Anesthetic Used 4% Lidocaine Solution 1. R 2nd met -Combined with other wound No -Current Size (cm) - Length 3.2 -Current Size (cm) - Width 7 -Current Size (cm) - Depth 0.3 -Total Square Cm 22.4 -Photo Taken Yes -Tunneling No -Undermining/Tunneling No -Circular Undermining No -Classification - Thickness Unclassifiable (Eschar Covered ) -Exudate Amt Small (1-33%) -Exudate Type Serosanguineous -Wound Margin Distinct, Outline Attached -Granulation Amt Small (1-33%) -Granulation Quality [place] -Slough/Fibrin Yes -Necrosis Amt Large (67-100%) -Necrotic Tissue Type Eschar -Structure Exposed Bone -Texture (Maxine-wound Skin Appearance) Localized Edema -Moisture (Maxine-wound Skin Appearance Assessed ) -Color (Maxine-wound Skin Appearance) Erythema -Temperature (Maxine-wound Skin No Abnormality Appearance) (Pt Warm) -Tenderness on Palpation (Maxine-wound No Skin Appearance) -Ulcer Cleansing Rinsed/ Irrigated with Saline -Foul Odor after Cleansing No -Anesthetic Used 4% Lidocaine Solution [Edema Assessment] -Lower Limb Edema Present Yes -Point of measurement (cm from the 46 medial instep) -Point of Measurement (cm from the 26.8 medial instep) -Left Calf (cm) 43.1 -Left Ankle (cm) 26 WC - Nurse 2 - General Ulcer CM Notes Start: 09/12/17 15:07 Freq: Status: Active Protocol: Activity Type Activity Date Activity User E-Sign Co-Sign Detail Recorded Client Recorded Date Recorded By Document 09/12/17 15:57 [id number] 09/12/17 16:12 09/12/17 15:57 Wound Center Nurse 2 [Procedure/Treatment] 2.RIGHT HALLUX -Time 15:57 -Correct Patient Yes -Correct Side, Site, Position Yes -Correct Procedure Yes -Procedure Performed Yes -Type of Procedure Debridement -Clinical Debridement Subcutaneous -Post Debridement Size (cm) - Length 0.4 -Post Debridement Size (cm) - Width 0.5 -Post Debridement Size (cm) - Depth 0.1 -Total Square Cm 0.20 -Wound/Ulcer Outcome Not Healed -Ulcer Cleansing Rinsed/ Irrigated with Saline -Foul Odor after Cleansing No -Bioengineered Tissue No -Topical Lidocaine (%) 4 -Bleeding Controlled with Pressure -Treatment Response Procedure Tolerated Well 1. R 2nd met -Time 15:58 -Correct Patient Yes -Correct Side, Site, Position Yes -Correct Procedure Yes -Procedure Performed Yes -Type of Procedure Debridement -Clinical Debridement Bone -Post Debridement Size (cm) - Length 3.3 -Post Debridement Size (cm) - Width 7.1 -Post Debridement Size (cm) - Depth 0.3 -Total Square Cm 23.43 -Wound/Ulcer Outcome Not Healed -Ulcer Cleansing Rinsed/ Irrigated with Saline -Foul Odor after Cleansing No -Bioengineered Tissue No -Topical Lidocaine (%) 4 -Bleeding Controlled with Pressure -Treatment Response Procedure Tolerated Well [See Physician Procedure note for Specifics] Pain Scale: 0-10 Numeric [Pain] -Is Patient Pain Free? Yes Musculoskeletal: No Tenderness to Palpation of Joints or Extremities, Muscle Wasting, - - No bogginess or crepitus on palpation. There is limited hallux dorsiflexion loaded and unloaded on the right foot Neurological: - - Lack of epicritic sensation to light touch right foot Psych/Mental Status: Normal Affect, Appropriate Debridement Note Post-Debridement Measurements/Treatment WC - Nurse 2 - General Ulcer CM Notes Start: 09/12/17 15:07 Freq: Status: Active Protocol: Activity Type Activity Date Activity User E-Sign Co-Sign Detail Recorded Client Recorded Date Recorded By Document 09/12/17 15:57 [id number] 09/12/17 16:12 09/12/17 15:57 Wound Center Nurse 2 2.RIGHT HALLUX -Time 15:57 -Correct Patient Yes -Correct Side, Site, Position Yes -Correct Procedure Yes -Procedure Performed Yes -Type of Procedure Debridement -Clinical Debridement Subcutaneous -Post Debridement Size (cm) - Length 0.4 -Post Debridement Size (cm) - Width 0.5 -Post Debridement Size (cm) - Depth 0.1 -Total Square Cm 0.20 -Wound/Ulcer Outcome Not Healed -Ulcer Cleansing Rinsed/ Irrigated with Saline -Foul Odor after Cleansing No -Bioengineered Tissue No -Topical Lidocaine (%) 4 -Bleeding Controlled with Pressure -Treatment Response Procedure Tolerated Well 1. R 2nd met -Time 15:58 -Correct Patient Yes -Correct Side, Site, Position Yes -Correct Procedure Yes -Procedure Performed Yes -Type of Procedure Debridement -Clinical Debridement Bone -Post Debridement Size (cm) - Length 3.3 -Post Debridement Size (cm) - Width 7.1 -Post Debridement Size (cm) - Depth 0.3 -Total Square Cm 23.43 -Wound/Ulcer Outcome Not Healed -Ulcer Cleansing Rinsed/ Irrigated with Saline -Foul Odor after Cleansing No -Bioengineered Tissue No -Topical Lidocaine (%) 4 -Bleeding Controlled with Pressure -Treatment Response Procedure Tolerated Well Pain Scale: 0-10 Numeric Is Patient Pain Free? Yes Wound debrided: 2nd to Laterality: Right Wound Grade/Stage: grade 3 Type of Debridement: Excisional debridement Anesthesia Used: 4% Lidocaine Solution Depth: to muscle Percentage of wound debrided: 100 Instrument Used: #15 blade Tissue Removed: fibrous, devitalized subcutaneous, biofilm, slough, tendon, eschar Severity: Necrosis of Muscle Amount of bleeding with debridement: Mild Bleeding Controlled with: Pressure Patient tolerated procedure well - Additional Wound Wound debrided: hallux plantar medial Laterality: Right Wound Grade/Stage: grade 1 Type of Debridement: Excisional debridement Anesthesia Used: 4% Lidocaine Solution Depth: in the subcutaneous layer Percentage of wound debrided: 100 Instrument Used: #15 blade Tissue Removed: fibrous, devitalized subcutaneous, biofilm, slough Severity: Fat Layer Exposed Amount of bleeding with debridement: Mild Bleeding Controlled with: Pressure Patient tolerated procedure: Patient tolerated procedure well Assessment/Plan Assessment: 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 Gangrene and chronic ulcer right second toe with suspected osteomyelitis; worsening status. Peripheral vascular disease. Diabetes with neuropathy. Malnutrition suspected. Delayed healing Plan: I reviewed and discussed this patient's case. His diagnostic data was reviewed from the past month. Is localized signs of infection have resolved however persistent gangrene and tissue loss are apparent. He continues on antibiotics as recommended by infectious disease. His last hemoglobin A1c level was 6.5%. His albumin was 3.5. MRI from August 21, 2017 did not confirm osteomyelitis. However, with the chronicity of the wound and adjacent devitalized tissue osteomyelitis is likely. Regardless the salvageability of the toe is highly guarded and he would like to consider an amputation. His vascular disease is noted. He had biphasic and monophasic waveforms in the right lower extremity with an ankle-brachial index of 0.68. The toe brachial index was not calculated due to noncompressible status. Dr. Cebul with vascular surgery did evaluate this patient during his last admission and recommended close follow-up after discharge to consider if intervention is appropriate. We discussed a conference of wound care plan including vascular surgery follow-up, daily and weekly wound care with advanced product, hyperbaric oxygen therapy. We also discussed surgical intervention including amputation of the second toe and excision of the other ulcer. No guarantees were made and he understands the surgical sites may still not heal due to his lack of blood flow and other comorbidities. He is trying to care for his ill and would like to proceed with the amputation as soon as possible. The preoperative indications, planned procedure, possible benefits, risks, complications, and anticipated healing time management were discussed in detail the patient. He understands and elects to proceed. He understands informed surgical consent and preoperative diagnostic data will need to be reviewed. He understands he will need to obtain clearance and history and physical by his primary care physician. I also recommend following up with vascular surgery prior to the surgery to optimize healing status. He will need updated EKG, lab work, and foot x-ray prior to proceeding as well. He will be contacted by my surgical instrument mechanic to help him start this process. The wound sites were debrided as noted in the clinical panel today. He tolerated this well. To continue with hydrogel and Adaptic. He was reassured his localized signs of infection compared to his most recent admission have resolved. However, the amount of tissue loss and now chronically exposed bone the salvageability of this toe is not likely. I answered all of his questions. He understands he is still at continued risk for further limb loss and illness. He was advised to wear the surgical shoe to keep pressure off of this site. He was advised to maintain proper glycemic control and nutritional supplementation to optimize healing. To return to the wound center in 1 week or sooner if surgical clearance is obtained prior to that time. To call sooner if he thinks his infection is progressing or if he has any other additional questions or concerns.
== END 2017-09-12 23:59 ==
LOC: WC 14:23
PROVIDERS: Family Provider Family Medicine; PCP Family Medicine; Visit Provider Podiatrist
DX: E11.621 Type 2 diabetes mellitus with foot ulcer (principal); L97.513 Non-pressure chronic ulcer of other part of right foot with necrosis of muscle; E11.42 Type 2 diabetes mellitus with diabetic polyneuropathy; M20.5X1 Other deformities of toe(s) (acquired), right foot; E11.52 Type 2 diabetes mellitus with diabetic peripheral angiopathy with gangrene
CPT/HCPCS: 11042; 11043; 11046; 99213; G0463

== ENCOUNTER 2017-09-19 10:50 | Outpatient (RCR) | payer OTHER, SELFPAY ==
[2017-09-13 01:18] VITALS: PULSE 85; RESP 18; TEMP 37.2
[2017-09-19 10:48] VITALS: BP 161/85; PULSE 92; RESP 18; TEMP 36.6
--- NOTE | 2017-09-19 12:27 | PCM.WC.PN ---
(1) Ulcer of right foot with fat layer exposed Status: Chronic Current Visit: Yes Code(s): L97.512 - Non-pressure chronic ulcer of other part of right foot with fat layer exposed (2) Ulcer of right foot with necrosis of muscle Status: Chronic Current Visit: Yes Code(s): L97.513 - Non-pressure chronic ulcer of other part of right foot with necrosis of muscle (3) Osteomyelitis Status: Chronic Current Visit: Yes Code(s): M86.9 - Osteomyelitis, unspecified (4) Type 2 diabetes mellitus with diabetic polyneuropathy Status: Chronic Current Visit: Yes Code(s): E11.42 - Type 2 diabetes mellitus with diabetic polyneuropathy (5) Gangrene of toe of right foot Status: Chronic Current Visit: Yes Code(s): I96 - Gangrene, not elsewhere classified (6) PAD (peripheral artery disease) Status: Chronic Current Visit: Yes Code(s): I73.9 - Peripheral vascular disease, unspecified Type of Wound Date of Service: 09/19/17 Chief Complaint: right foot ulcers with continued gangrene of the second toe History of Wound: This 67-year-old male with multiple comorbidities is following up with the wound care center for continued treatment of gangrene and wounds to the right first and second toe. Wound care options and surgical options were discussed. He is ready to move forward with surgical amputation and is here to go over consents today. He denies fever, chill, nausea, vomiting. Progress of Wound: Stable - Physical Exam Vital Signs Temp Pulse Resp BP 98 F 92 18 161/85 H 09/19/17 10:48 09/19/17 10:48 09/19/17 10:48 09/19/17 10:48 General: Alert, Oriented x3, Cooperative Extremities: No cyanosis, Capillary Refill Less than 3 Seconds, No Calf Tenderness, Diminished Peripheral Pulses Skin: Ulcer/ Wound - No purulence, no erythema, no streaking, no odor. The right second toe has fibrous and gangrenous tissue with exposed bone and joint involving the distal 60%. There is a continued skin discontinuity to the medial right hallux at the interphalangeal joint level located plantar medially. No infection or exposed deep capsular bone noted at this site. Wound Measurements and Assessment WC - Nurse 1 - General Ulcer Measurement Start: 09/19/17 10:47 Freq: Status: Active Protocol: Activity Type Activity Date Activity User E-Sign Co-Sign Detail Recorded Client Recorded Date Recorded By Document 09/19/17 10:48 DL [id number] 09/19/17 10:57 DL 09/19/17 10:48 Wound Center Nurse 1 [Ulcer Assessment] 2.RIGHT HALLUX -Current Size (cm) - Length 0.2 -Current Size (cm) - Width 0.2 -Current Size (cm) - Depth 0.3 -Total Square Cm 0.04 -Photo Taken No -Maximum Distance #2 (cm) 0.2 -Circular Undermining Yes -Exudate Amt None Present (0 %) -Wound Margin Flat & Intact -Granulation Amt Small (1-33%) -Granulation Quality [place] -Necrosis Amt Small (1-33%) -Necrotic Tissue Type Adherent Slough -Structure Exposed N/A -Texture (Maxine-wound Skin Appearance) Callus -Moisture (Maxine-wound Skin Appearance Dry/Scaly ) -Color (Maxine-wound Skin Appearance) No Abnormality -Temperature (Maxine-wound Skin No Abnormality Appearance) (Pt Warm) -Ulcer Cleansing Rinsed/ Irrigated with Saline -Foul Odor after Cleansing No -Anesthetic Used 4% Lidocaine Solution 1. R 2nd met -Current Size (cm) - Length 3 -Current Size (cm) - Width 2 -Current Size (cm) - Depth 0.3 -Total Square Cm 6 -Photo Taken No -Exudate Amt Small (1-33%) -Exudate Type Serosanguineous -Wound Margin Distinct, Outline Attached -Granulation Amt None Present (0 %) -Necrosis Amt Large (67-100%) -Necrotic Tissue Type Adherent Slough -Structure Exposed N/A -Texture (Maxine-wound Skin Appearance) Localized Edema -Moisture (Maxine-wound Skin Appearance No Abnormality ) -Color (Maxine-wound Skin Appearance) Erythema -Temperature (Maxine-wound Skin No Abnormality Appearance) (Pt Warm) -Tenderness on Palpation (Maxine-wound No Skin Appearance) -Ulcer Cleansing Rinsed/ Irrigated with Saline -Foul Odor after Cleansing Yes -Anesthetic Used 4% Lidocaine Solution [Edema Assessment] -Right Calf (cm) 44 -Right Ankle (cm) 25 WC - Nurse 2 - General Ulcer CM Notes Start: 09/19/17 10:47 Freq: Status: Active Protocol: Activity Type Activity Date Activity User E-Sign Co-Sign Detail Recorded Client Recorded Date Recorded By Document 09/19/17 11:13 JF [id number] 09/19/17 11:14 09/19/17 11:13 Wound Center Nurse 2 [Procedure/Treatment] 2.RIGHT HALLUX -Correct Patient No -Correct Side, Site, Position No -Correct Procedure No -Procedure Performed No 1. R 2nd met -Correct Patient No -Correct Side, Site, Position No -Correct Procedure No -Procedure Performed No [See Physician Procedure note for Specifics] Pain Scale: 0-10 Numeric [Pain] -Is Patient Pain Free? Yes Musculoskeletal: No Tenderness to Palpation of Joints or Extremities, Muscle Wasting, - - Decreased loaded first metatarsal phalangeal joint right foot. Dorsal contraction of lesser toes. No crepitus on palpation. Negative Candice and Vera bilateral Neurological: - - Lack of epicritic sensation light touch bilateral Psych/Mental Status: Normal Affect, Appropriate Debridement Note Post-Debridement Measurements/Treatment WC - Nurse 2 - General Ulcer CM Notes Start: 09/19/17 10:47 Freq: Status: Active Protocol: Activity Type Activity Date Activity User E-Sign Co-Sign Detail Recorded Client Recorded Date Recorded By Document 09/19/17 11:13 JF [id number] 09/19/17 11:14 09/19/17 11:13 Wound Center Nurse 2 2.RIGHT HALLUX -Correct Patient No -Correct Side, Site, Position No -Correct Procedure No -Procedure Performed No 1. R 2nd met -Correct Patient No -Correct Side, Site, Position No -Correct Procedure No -Procedure Performed No Pain Scale: 0-10 Numeric Is Patient Pain Free? Yes No debridement was completed today - His wounds are stable and surgical consents were obtained today in preparation for amputation. 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 Gangrene and chronic ulcer right second toe with osteomyelitis. Peripheral vascular disease. Diabetes with neuropathy. Malnutrition suspected. Delayed healing Plan: I reviewed and discussed this patient's case. His diagnostic data was reviewed from the past month. Is localized signs of infection have resolved however persistent gangrene, exposed bone, and tissue loss are apparent. He continues on antibiotics as recommended by infectious disease. His last hemoglobin A1c level was 6.5%. His albumin was 3.5. MRI from August 21, 2017 did not confirm osteomyelitis. However, with the chronicity of the wound, clinical deterioration and chronically exposed joint of bone, and adjacent devitalized tissue suggest osteomyelitis is likely. Regardless the salvageability of the toe is highly guarded and he would like to consider an amputation. His vascular disease is noted. He had biphasic and monophasic waveforms in the right lower extremity with an ankle-brachial index of 0.68. The toe brachial index was not calculated due to noncompressible status. Dr. Borges with vascular surgery did evaluate this patient during his last admission. I reviewed the case in detail with Dr. Tom this past week who did not recommend additional intervention at this time. He suggested perfusion available at this time is favorable for healing. Intervention will be considered if there are any delays in healing or further status change. He recommended proceeding forward with the toe surgery this upcoming week. The preoperative indications, planned procedure, possible benefits, risks, complications, and anticipated healing time management were discussed in detail the patient. He understands and elects to proceed. The informed surgical consent was signed today, and preoperative diagnostic data will need to be reviewed. Orders were provided for lab work (CBC, CMP, ESR, C-reactive protein), EKG, and chest x-ray. He understands he will need to obtain clearance and history and physical by his primary care physician. This is tentatively scheduled for this upcoming Sunday at 8:[address] Morris which is greatly appreciated. An updated order for a foot x-ray was also provided and he will try to obtain this today. His surgery is tentatively scheduled for next at 11:45 AM. He was advised on how to get in touch with the iso coordinator the hospital for medication preoperative instructions, arrival times, and surgical site cleansing; the soap and instructions were dispensed. He demonstrates understanding of the plan and no guarantees were made. I answered all his questions. A new dressing was applied today. To continue with hydrogel and Adaptic. He was reassured his localized signs of infection compared to his most recent admission have resolved. However, the amount of tissue loss and now chronically exposed bone the salvageability of this toe is not likely. I answered all of his questions. He understands he is still at continued risk for further limb loss and illness. He was advised to wear the surgical shoe to keep pressure off of this site. He was advised to maintain proper glycemic control and nutritional supplementation to optimize healing. To return the wound center in 2 weeks; he will have surgery next week.
--- NOTE | 2017-09-19 12:37 | PN.PCM_ITS ---
(1) Ulcer of right foot with fat layer exposed Status: Chronic Current Visit: Yes Code(s): L97.512 - Non-pressure chronic ulcer of other part of right foot with fat layer exposed (2) Ulcer of right foot with necrosis of muscle Status: Chronic Current Visit: Yes Code(s): L97.513 - Non-pressure chronic ulcer of other part of right foot with necrosis of muscle (3) Osteomyelitis Status: Chronic Current Visit: Yes Code(s): M86.9 - Osteomyelitis, unspecified (4) Type 2 diabetes mellitus with diabetic polyneuropathy Status: Chronic Current Visit: Yes Code(s): E11.42 - Type 2 diabetes mellitus with diabetic polyneuropathy (5) Gangrene of toe of right foot Status: Chronic Current Visit: Yes Code(s): I96 - Gangrene, not elsewhere classified (6) PAD (peripheral artery disease) Status: Chronic Current Visit: Yes Code(s): I73.9 - Peripheral vascular disease, unspecified Type of Wound Date of Service: 09/19/17 Chief Complaint: right foot ulcers with continued gangrene of the second toe History of Wound: This 67-year-old male with multiple comorbidities is following up with the wound care center for continued treatment of gangrene and wounds to the right first and second toe. Wound care options and surgical options were discussed. He is ready to move forward with surgical amputation and is here to go over consents today. He denies fever, chill, nausea, vomiting. Progress of Wound: Stable - Physical Exam Vital Signs Temp Pulse Resp BP 98 F 92 18 161/85 H 09/19/17 10:48 09/19/17 10:48 09/19/17 10:48 09/19/17 10:48 General: Alert, Oriented x3, Cooperative Extremities: No cyanosis, Capillary Refill Less than 3 Seconds, No Calf Tenderness, Diminished Peripheral Pulses Skin: Ulcer/ Wound - No purulence, no erythema, no streaking, no odor. The right second toe has fibrous and gangrenous tissue with exposed bone and joint involving the distal 60%. There is a continued skin discontinuity to the medial right hallux at the interphalangeal joint level located plantar medially. No infection or exposed deep capsular bone noted at this site. Wound Measurements and Assessment WC - Nurse 1 - General Ulcer Measurement Start: 09/19/17 10:47 Freq: Status: Active Protocol: Activity Type Activity Date Activity User E-Sign Co-Sign Detail Recorded Client Recorded Date Recorded By Document 09/19/17 10:48 DL [id number] 09/19/17 10:57 DL 09/19/17 10:48 Wound Center Nurse 1 [Ulcer Assessment] 2.RIGHT HALLUX -Current Size (cm) - Length 0.2 -Current Size (cm) - Width 0.2 -Current Size (cm) - Depth 0.3 -Total Square Cm 0.04 -Photo Taken No -Maximum Distance #2 (cm) 0.2 -Circular Undermining Yes -Exudate Amt None Present (0 %) -Wound Margin Flat & Intact -Granulation Amt Small (1-33%) -Granulation Quality [place] -Necrosis Amt Small (1-33%) -Necrotic Tissue Type Adherent Slough -Structure Exposed N/A -Texture (Maxine-wound Skin Appearance) Callus -Moisture (Maxine-wound Skin Appearance Dry/Scaly ) -Color (Maxine-wound Skin Appearance) No Abnormality -Temperature (Maxine-wound Skin No Abnormality Appearance) (Pt Warm) -Ulcer Cleansing Rinsed/ Irrigated with Saline -Foul Odor after Cleansing No -Anesthetic Used 4% Lidocaine Solution 1. R 2nd met -Current Size (cm) - Length 3 -Current Size (cm) - Width 2 -Current Size (cm) - Depth 0.3 -Total Square Cm 6 -Photo Taken No -Exudate Amt Small (1-33%) -Exudate Type Serosanguineous -Wound Margin Distinct, Outline Attached -Granulation Amt None Present (0 %) -Necrosis Amt Large (67-100%) -Necrotic Tissue Type Adherent Slough -Structure Exposed N/A -Texture (Maxine-wound Skin Appearance) Localized Edema -Moisture (Maxine-wound Skin Appearance No Abnormality ) -Color (Maxine-wound Skin Appearance) Erythema -Temperature (Maxine-wound Skin No Abnormality Appearance) (Pt Warm) -Tenderness on Palpation (Maxine-wound No Skin Appearance) -Ulcer Cleansing Rinsed/ Irrigated with Saline -Foul Odor after Cleansing Yes -Anesthetic Used 4% Lidocaine Solution [Edema Assessment] -Right Calf (cm) 44 -Right Ankle (cm) 25 WC - Nurse 2 - General Ulcer CM Notes Start: 09/19/17 10:47 Freq: Status: Active Protocol: Activity Type Activity Date Activity User E-Sign Co-Sign Detail Recorded Client Recorded Date Recorded By Document 09/19/17 11:13 JF [id number] 09/19/17 11:14 09/19/17 11:13 Wound Center Nurse 2 [Procedure/Treatment] 2.RIGHT HALLUX -Correct Patient No -Correct Side, Site, Position No -Correct Procedure No -Procedure Performed No 1. R 2nd met -Correct Patient No -Correct Side, Site, Position No -Correct Procedure No -Procedure Performed No [See Physician Procedure note for Specifics] Pain Scale: 0-10 Numeric [Pain] -Is Patient Pain Free? Yes Musculoskeletal: No Tenderness to Palpation of Joints or Extremities, Muscle Wasting, - - Decreased loaded first metatarsal phalangeal joint right foot. Dorsal contraction of lesser toes. No crepitus on palpation. Negative Candice and Vera bilateral Neurological: - - Lack of epicritic sensation light touch bilateral Psych/Mental Status: Normal Affect, Appropriate Debridement Note Post-Debridement Measurements/Treatment WC - Nurse 2 - General Ulcer CM Notes Start: 09/19/17 10:47 Freq: Status: Active Protocol: Activity Type Activity Date Activity User E-Sign Co-Sign Detail Recorded Client Recorded Date Recorded By Document 09/19/17 11:13 JF [id number] 09/19/17 11:14 09/19/17 11:13 Wound Center Nurse 2 2.RIGHT HALLUX -Correct Patient No -Correct Side, Site, Position No -Correct Procedure No -Procedure Performed No 1. R 2nd met -Correct Patient No -Correct Side, Site, Position No -Correct Procedure No -Procedure Performed No Pain Scale: 0-10 Numeric Is Patient Pain Free? Yes No debridement was completed today - His wounds are stable and surgical consents were obtained today in preparation for amputation. 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 Gangrene and chronic ulcer right second toe with osteomyelitis. Peripheral vascular disease. Diabetes with neuropathy. Malnutrition suspected. Delayed healing Plan: I reviewed and discussed this patient's case. His diagnostic data was reviewed from the past month. Is localized signs of infection have resolved however persistent gangrene, exposed bone, and tissue loss are apparent. He continues on antibiotics as recommended by infectious disease. His last hemoglobin A1c level was 6.5%. His albumin was 3.5. MRI from August 21, 2017 did not confirm osteomyelitis. However, with the chronicity of the wound, clinical deterioration and chronically exposed joint of bone, and adjacent devitalized tissue suggest osteomyelitis is likely. Regardless the salvageability of the toe is highly guarded and he would like to consider an amputation. His vascular disease is noted. He had biphasic and monophasic waveforms in the right lower extremity with an ankle-brachial index of 0.68. The toe brachial index was not calculated due to noncompressible status. Dr. Borges with vascular surgery did evaluate this patient during his last admission. I reviewed the case in detail with Dr. Tom this past week who did not recommend additional intervention at this time. He suggested perfusion available at this time is favorable for healing. Intervention will be considered if there are any delays in healing or further status change. He recommended proceeding forward with the toe surgery this upcoming week. The preoperative indications, planned procedure, possible benefits, risks, complications, and anticipated healing time management were discussed in detail the patient. He understands and elects to proceed. The informed surgical consent was signed today, and preoperative diagnostic data will need to be reviewed. Orders were provided for lab work (CBC, CMP, ESR, C-reactive protein) , EKG, and chest x-ray. He understands he will need to obtain clearance and history and physical by his primary care physician. This is tentatively scheduled for this upcoming Sunday at 8:[address] Morris which is greatly appreciated. An updated order for a foot x-ray was also provided and he will try to obtain this today. His surgery is tentatively scheduled for next at 11:45 AM. He was advised on how to get in touch with the surgical services assistant the hospital for medication preoperative instructions, arrival times , and surgical site cleansing; the soap and instructions were dispensed. He demonstrates understanding of the plan and no guarantees were made. I answered all his questions. A new dressing was applied today. To continue with hydrogel and Adaptic. He was reassured his localized signs of infection compared to his most recent admission have resolved. However, the amount of tissue loss and now chronically exposed bone the salvageability of this toe is not likely. I answered all of his questions. He understands he is still at continued risk for further limb loss and illness. He was advised to wear the surgical shoe to keep pressure off of this site. He was advised to maintain proper glycemic control and nutritional supplementation to optimize healing. To return the wound center in 2 weeks; he will have surgery next week.
== END 2017-10-13 23:59 ==
LOC: WC 10:50
PROVIDERS: Family Provider Family Medicine; PCP Family Medicine; Visit Provider Podiatrist
DX: E11.621 Type 2 diabetes mellitus with foot ulcer (principal); L97.512 Non-pressure chronic ulcer of other part of right foot with fat layer exposed; L97.513 Non-pressure chronic ulcer of other part of right foot with necrosis of muscle; E11.42 Type 2 diabetes mellitus with diabetic polyneuropathy; E11.52 Type 2 diabetes mellitus with diabetic peripheral angiopathy with gangrene
CPT/HCPCS: 71046; 73630; 93005; 99211; 99213; G0463

== ENCOUNTER 2017-09-27 07:42 | Day surgery (SDC) | payer OTHER, SELFPAY ==
--- NOTE | 2017-09-19 12:09 | RAD_ITS ---
STUDY: X-RAY - RIGHT FOOT CLINICAL: Male, 67 years old. Preoperative evaluation. TECHNIQUE: 3 view(s) of the foot. COMPARISON: None. FINDINGS: There is a plantar calcaneal spur. Normal visualized subtalar, talonavicular, calcaneocuboid, tarsal and tarsometatarsal articulations. Normal metatarsi. Normal metatarsophalangeal joint of the great toe. Normal tibial and fibular sesamoid bones. Normal interphalangeal joint of the great toe. Normal phalanges of the great toe. Normal second through fifth metatarsophalangeal joints. Normal interphalangeal joints and phalanges of the lesser toes. Soft tissue swelling overlying the great toe. Findings suggestive of ulceration overlying the distal aspect of the second toe. RAD/Foot min 3 Views IMPRESSION: Soft tissue ulceration overlying the distal aspect of the second toe. Small amount of air is seen within the soft tissues. Soft tissue swelling overlying the great toe. Electronically Signed: Los Kwong MD at 12:51 EST Tel [phone], Service support ,
--- NOTE | 2017-09-19 12:09 | RAD_ITS ---
STUDY: X-RAY CHEST REASON FOR EXAM: Male, 67 years old. Preoperative evaluation. TECHNIQUE: PA and lateral views of the chest. COMPARISON: Comparison is made with prior study dated April 15, 2013. FINDINGS: Hyperinflation. The lungs are clear. There is no demonstrated pleural abnormality. Normal size heart. Normal mediastinum and madi. Normal visualized pulmonary arteries. There is atherosclerotic tortuosity of the aortic arch and descending thoracic aorta. There are diffuse degenerative changes of the visualized thoracic spine. Normal visualized ribs, clavicles, and shoulders. There is no demonstrated abnormality of the visualized soft tissue structures of the upper abdomen. RAD/Chest PA and Lateral IMPRESSION: Hyperinflation. The lungs are clear. Electronically Signed: Los Kwong MD at 12:52 EST Tel [phone], Service support ,
--- NOTE | 2017-09-19 12:16 | EKG12_ITS ---
Test Reason : PRE OP Blood Pressure : / mmHG Vent. Rate : 074 BPM Atrial Rate : 074 BPM P-R Int : 136 ms QRS Dur : 110 ms QT Int : 384 ms P-R-T Axes : -16 022 050 degrees QTc Int : 426 ms Normal sinus rhythm Normal ECG Confirmed by ROLANDO MERINO, EMELI ([id number]), pictures editor SARAHY GO ([id number]) on 09/21/2017 3:06:52 PM Referred By: Leticia Monge Confirmed By:EMELI MARSHALL MD
[2017-09-19 13:14] LABS: Erythrocyte Sedimentation Rate 45 mm/hr (0-20)
[2017-09-19 13:17] LABS: Hemoglobin 15.9 g/dl (13.0-16.5); Mean Corp Hgb Conc 33.1 g/gl (32-36); Mean Corpuscular Hgb 30.3 pg (27.0-32.0); Mean Corpuscular Volume 91.4 fL (80-94); Mean Platelet Vol. 9.7 fl (6.2-12.0); Platelet Count 312 K/mm3 (150-450); RBC Distribution Width CV 13.2 % (11.6-14.6); RBC Distribution Width SD 43.7 fl (35.1-43.9); Red Blood Count 5.25 M/mm3 (4.6-6.2); White Blood Count 9.5 K/mm3 (4.4-11.0)
[2017-09-19 13:22] LABS: Scan Indicated on CBC? Y/N NO
[2017-09-19 13:25] LABS: ALB/GLOB Ratio 0.7 RATIO (0.9-2.4); AST(SGOT) 29 U/L (15-37); Alanine Aminotransfer ALT/SGPT 41 U/L (16-61); Albumin, Serum 3.5 g/dL (3.2-5.0); Alkaline Phosphatase 60 U/L (45-117); Anion Gap 10 (5-15); BUN 12 mg/dL (7-18); BUN/Creat Ratio 13.9 RATIO (10-20); Chloride 102 mmol/L (98-107); Creatinine, Serum 0.86 mg/dL (0.70-1.30); EST Glomerular Filtration Rate 94 mL/min (>60); Est Glom Filt Rate - Afr Amer 114 mL/min (>60); Globulin 4.7 g/dL (2.2-4.2); Glucose 208 mg/dL (74-106); Potassium 4.2 mmol/L (3.5-5.1); Protein, Total 8.2 g/dL (6.4-8.2); Sodium Level 138 mmol/L (136-145)
[2017-09-19 13:32] LABS: Hemoglobin A1c 7.2 % (4.2-6.3)
[2017-09-27 08:10] VITALS: BP 134/86; PULSE 85; RESP 18; TEMP 36.4; O2SAT 92; BMI 42.2
--- NOTE | 2017-09-27 09:00 | RAD_ITS ---
STUDY: X-RAY RIGHT FOOT, SECOND TOE REASON FOR EXAM: Male, 67 years old. Amputation of the second toe with tissue debridement. TECHNIQUE: 3 view(s) of the toe were obtained. COMPARISON: Comparison is made with prior study dated September 19, 2017. FINDINGS: Normal visualized metatarsus. Normal metatarsophalangeal (M.T.P) joint. There has been resection of the distal portion of the proximal phalanx as well as the middle and distal phalanges of the second toe. Postoperative soft tissue changes. RAD/Toe(s) Min 2 Views IMPRESSION: Status post resection of the distal half of the proximal phalanx of the second toe as well as the middle and distal phalanges of the second toe. Soft tissue swelling. Electronically Signed: Los Kwong MD at 12:16 EDT Tel [phone], Service support ,
--- NOTE | 2017-09-27 09:30 | AMP_PTH ---
PATIENT: EMILEE ARAGON LOC: [facility] U#:[id number] AGE/SX: 67/M ROOM: RE09/27/[address]: Dr. Leticia Monge DPM : 1950 BED: DIS: 09/27/2017 SPEC #: [id number] RECD: 09/27/17 11:06 STATUS: PADDY YONATAN #: [id number] SONYA: 09/27/17 09:[address]: Leticia Monge DEPT: SURGICAL PATHOLOGY RECD BY: Grace Taylor ENTERED: 09/27/17 11:30 SP TYPE: Amputation OTHR DR: Dr. Floyd Ricketts, DO Tissues: A - Toe, NOS B - Bone of foot, NOS Procedures: Decalcification bone/plaque Surgery Specimen Level IV HEADER OPERATION: Right foot, 2nd toe amputation, with ulcer and tissue debridement PRE-OP DIAGNOSIS: Right foot 2nd toe osteomyelitis, gangrene, and hallux ulcer TISSUE SUBMITTED: A. Right 2nd toe, bone and soft tissue, B. Right 2nd toe, clearance fragment MICROSCOPIC DIAGNOSIS A. Right second toe bone and soft tissue, amputation: Skin with ulceration and associated acute and chronic inflammation and granulation. Bone with acute osteomyelitis. B. Right second toe, clearance fragment bone, excision: Acute osteomyelitis. AM:jessica 10/03/17 MICROSCOPIC DESCRIPTION Slides are reviewed. GROSS DESCRIPTION A - Received in fixative is one container labeled with the patient's name and designated right second toe bone and soft tissue. The specimen consists of a portion of toe measuring 2.9 x 2.5 x 2 cm. The dorsal surface of the toe shows ulceration and focal area of gangrenous discoloration. [employer] sections are submitted in two cassettes after decalcification as follows: 1 ? gangrenous area including inked resection margin, 2 ? bone after decalcification. B - Received in fixative is one container labeled with the patient's name and designated right second toe clearance fragment. The specimen consists of two pieces of bone measuring in aggregate 1.2 x 1 x 0.4 cm. The entire specimen is submitted in one cassette after decalcification. / TORREY:jessica 09/27/17 TC:2 CPT: 78382 x2, 65651 x2
[2017-09-27] MEDS: Bupivacaine Mpf 0.5% 30 ML VIAL (09:44)
[2017-09-27 09:46] LABS: Bedside Glucose 162 mg/dL (70-110)
[2017-09-27] MEDS: Cefazolin 2 GM in 0.9% Normal Saline 100 ML IV (10:04)
--- NOTE | 2017-09-27 10:43 | PCM.IMDPSTOP ---
Problem List (1) Ulcer of right foot with fat layer exposed Status: Chronic (2) Osteomyelitis Status: Chronic Qualifiers: Osteomyelitis type: subacute Osteomyelitis location: foot Laterality: right Qualified Code(s): M86.271 - Subacute osteomyelitis, right ankle and foot (3) Type 2 diabetes mellitus with diabetic polyneuropathy Status: Chronic (4) Gangrene of toe of right foot Status: Chronic Immediate Post-Op Note Date of Procedure: 09/27/17 - Production Lead: Alexandra Duvall, PGY2 Primary Surgeon/Physician: Leticia oMnge DPM manager film: none Pre-Operative Diagnosis: gangrene and osteomyelitis right 2nd toe. chronic ulcer with fat layer exposed right hallux Post-Operative Diagnosis: gangrene and osteomyelitis right 2nd toe. chronic ulcer with fat layer exposed right hallux Surgery/Procedure Performed:: partial right second toe amputation. ulcer excision right hallux Description of Surgical Findings:: gangrene, soft distal 2nd toe no purulence after amputation and debridement hemostasis controlled see detailed operation report The patient tolerated the procedure and anesthesia well. She was transported to the PACU with vital signs stable and vascular status intact to the right lower extremity he will be discharged home later today. All orders will be entered electronically. Intraoperative x-rays were reviewed. Estimated Blood Loss: <50mL Specimen's removed: 1. Microbiology (soft tissue and bone second toe): Aerobic, anaerobic, acid-fast, fungal. 2. Pathology (soft tissue and bone second toe). 3. Microbiology (clearance fragment bone second toe): Aerobic, anaerobic, acid-fast, fungal. 4. Pathology (Clearance fragment bone second toe) Type of Anesthesia:: Local - Admit VTE Documentation VTE Mechan Device Prophylaxis: SCD's VTE Pharm Prophylaxis ordered?: No Reason prophylaxis not ordered:: Procedure Not Indicated
--- NOTE | 2017-09-27 10:47 | OP.PN_ITS ---
Problem List (1) Ulcer of right foot with fat layer exposed Status: Chronic (2) Osteomyelitis Status: Chronic Qualifiers: Osteomyelitis type: subacute Osteomyelitis location: foot Laterality: right Qualified Code(s): M86.271 - Subacute osteomyelitis, right ankle and foot (3) Type 2 diabetes mellitus with diabetic polyneuropathy Status: Chronic (4) Gangrene of toe of right foot Status: Chronic Immediate Post-Op Note Date of Procedure: 09/27/17 - Loan Documents Closer: Alexandra Duvall, PGY2 Primary Surgeon/Physician: Leticia Monge DPM skin piler: none Pre-Operative Diagnosis: gangrene and osteomyelitis right 2nd toe. chronic ulcer with fat layer exposed right hallux Post-Operative Diagnosis: gangrene and osteomyelitis right 2nd toe. chronic ulcer with fat layer exposed right hallux Surgery/Procedure Performed:: partial right second toe amputation. ulcer excision right hallux Description of Surgical Findings:: gangrene, soft distal 2nd toe no purulence after amputation and debridement hemostasis controlled see detailed operation report The patient tolerated the procedure and anesthesia well. She was transported to the PACU with vital signs stable and vascular status intact to the right lower extremity he will be discharged home later today. All orders will be entered electronically. Intraoperative x-rays were reviewed. Estimated Blood Loss: <50mL Specimen's removed: 1. Microbiology (soft tissue and bone second toe): Aerobic , anaerobic, acid-fast, fungal. 2. Pathology (soft tissue and bone second toe) . 3. Microbiology (clearance fragment bone second toe): Aerobic, anaerobic, acid-fast, fungal. 4. Pathology (Clearance fragment bone second toe) Type of Anesthesia:: Local - Admit VTE Documentation VTE Mechan Device Prophylaxis: SCD's VTE Pharm Prophylaxis ordered?: No Reason prophylaxis not ordered:: Procedure Not Indicated
--- NOTE | 2017-09-27 10:51 | PCM.DC.POD ---
Discharge Activity: May Not Shower, - - only heel touch right foot with surgical shoe. Use crutches or a walker for assistance if you cannot keep weight off of your forefoot surgical site Weight Bearing Status: Partial weight bearing - heel Call your doctor if your incision/area has: Continuous Slow Oozing, Sudden Increased Bleeding, Increased Pain/ Swelling, Increased Redness, Foul Smelling Discharge, Swelling at the incision site Call your doctor if you observe: Fever of 101 or Higher, Calf discomfort, Uncontrolled pain Cleanse incision/area with: Keep Dressing Clean & Dry Allergies/Adverse Reactions: Allergies No Known Allergies Allergy (Verified 09/26/17 10:38) Medications to take at Discharge Canagliflozin [Invokana] 100 mg PO DAILY 08/21/17 Insulin Glargine,Hum.rec.anlog [Toujeo Solostar] 160 unit SC DAILY 08/21/17 Levothyroxine Sodium [Synthroid] 100 mcg PO DAILY 08/21/17 Pioglitazone [Actos] 45 mg PO DAILY 08/21/17 Sitagliptin Phos/Metformin HCl [Janumet Xr 50-1,000 mg Tablet] 1 tab PO BID 08/21/17 Aspirin [Aspirin, Baby] 81 mg PO DAILY@0800 #30 tab.chew 08/24/17 Multivitamin [Multiple Vitamins] 1 each PO DAILY 09/12/17 Ascorbic Acid [Vitamin C] 500 mg PO DAILY 09/26/17 Primary Care Physician: Floyd Ricketts DO [Primary Care Provider] - Please Follow Up With: Leticia Monge DPM When: [facility]; call [phone] sooner if question Proposed Discharge Date: 09/27/17
--- NOTE | 2017-09-27 10:54 | PCM.OPRPT ---
Problem List (1) Ulcer of right foot with fat layer exposed Status: Chronic (2) Osteomyelitis Status: Chronic Qualifiers: Osteomyelitis type: subacute Osteomyelitis location: foot Laterality: right Qualified Code(s): M86.271 - Subacute osteomyelitis, right ankle and foot (3) Type 2 diabetes mellitus with diabetic polyneuropathy Status: Chronic (4) Gangrene of toe of right foot Status: Chronic Report of Operation Date of Procedure: 09/27/17 - [employer] Production Technician: Alexandra Duvall PGY2 Pre-Operative Diagnosis: gangrene and osteomyelitis right 2nd toe. chronic ulcer with fat layer exposed right hallux Post-Operative Diagnosis: gangrene and osteomyelitis right 2nd toe. chronic ulcer with fat layer exposed right hallux Surgery/Procedure Performed:: partial right second toe amputation. ulcer excision right hallux Description of Surgical Findings:: Hemostasis: No tourniquet utilized, anatomic dissection Materials: 3-0 Vicryl, 2-0 Prolene, 3-0 Prolene Injections: Preoperative - 10 cc of one-to-one mixture of 1 fashion on the right foot Complications: None multi operation forming machine setter: none Type of Anesthesia:: Local Specimen's removed: 1. Microbiology (soft tissue and bone second toe): Aerobic, anaerobic, acid-fast, fungal. 2. Pathology (soft tissue and bone second toe). 3. Microbiology (clearance fragment bone second toe): Aerobic, anaerobic, acid-fast, fungal. 4. Pathology (Clearance fragment bone second toe) Estimated Blood Loss (mL): <50mL Description of Procedure: Indications: This is a 67-year-old male with significant past medical history, hypothyroidism, peripheral vascular disease has continued nonhealing right second toe gangrene and ulcer and also chronic nonhealing right hallux ulcer. She had peripheral vascular studies reviewed which demonstrated small vessel disease and vascular surgeon, Dr. Borges, did not recommend intervention at this time. Toe at this time rather than wound care and hyperbaric therapy The preoperative indications, planned procedure, possible benefits, risks, complications, and anticipated healing time management were discussed in detail with patient. He understands and elects to proceed with surgery at this time. His preoperative x-rays did not demonstrate any acute fracture. There is some decreased bone density to the distal phalanx of the second toe without thea destruction. His preoperative CBC, hemoglobin A1c, and CMP, chest x-ray and EKG were reviewed. His surgical limb and consent were signed. Answered all his questions. He was cleared from a preoperative standpoint and his history and physical exam are reviewed. Procedure in detail: The patient was transferred to the operating room via cart and placed on the operating table in supine position. Local anesthesia was administered by the podiatry team. Final verification of the patient, surgery, limb designation was performed via the timeout procedure. The right lower extremity was prepped and draped. A well-padded pneumatic right ankle tourniquet was placed however this was not utilized. Attention was first directed to the second digit with a 15 blade cup was used to make a fishmouth incision to expose the head of the proximal phalanx of the second toe. This was excised and removed in total off the table sent to both microbiology and pathology. Soft fragmented this is included in this initial specimen evaluation. Careful clean instrumentation was used to expose the remainder of the proximal phalanx and a clean sagittal saw was used to resect the proximal phalanx in an additional clearance fragment was also obtained and sent to both microbiology and pathology. At this time, intraoperative antibiotics of cefazolin was administered. Copious saline irrigation was performed. At this time clean instrumentation, gloves and drapery were applied and the surgical site was mobilized and nonviable adipose and tendon structures were debrided and removed from the wound bed. Her approximation was achieved with minimal Vicryl suture and skin edges were reapproximated utilizing no touch technique with the Prolene. Next attention was directed to the hallux ulcer site which measured 3 x 4 x 2 mm in an elliptical full-thickness incision was made through the skin with a 15 blade was further extended at each margin tissue mobilization was performed. There irrigated copiously with saline and there is no infection or bone exposed at this site. This skin edges were reapproximated utilizing Prolene with retention sutures technique. Capillary refill time was brisk and less than 3 seconds to the right hallux as well as the dorsal and plantar flap of the amputation site performed to the second right toe. Intraoperative fluoroscopy was used to confirm adequate dictation of the second toe at the proximal phalanx level was performed. We decided to perform a partial amputation of the tissue quality looks good at this level resection there are no signs of infection and this will maintain a buttress to prevent further hallux deviation deformity formation. No acute injuries were noted on the x-ray. Next, dressing was applied with Adaptic and Betadine, gauze, Kerlix, and noncompressibe manner applied Freddie wrap. After procedure: The patient tolerated the procedure and anesthesia well. He was transferred to the PACU vital signs stable and vascular status intact to the right lower extremity. He was advised to keep his dressing clean, dry, and intact until [facility]. He will be discharged home upon continued PACU stability. Keep weight off of his surgical limb and only touchdown with the heel with a surgical shoe in place to protect the site. He has neuropathy and was advised to take [id number] Tylenol sparingly if needed for pain.. All orders were entered electronically. Leticia Monge DPM [facility]
[2017-09-27 10:55] VITALS: BP 145/71; PULSE 78; RESP 16; TEMP 36.4; O2SAT 96
== END 2017-09-27 11:00 | disposition home or self-care (01) ==
LOC: SDC 07:43 → AC 07:43
PROVIDERS: Family Provider Family Medicine; PCP Family Medicine; Visit Provider Podiatrist
PROC: (CPT 11044; principal; 2017-09-27 09:15)
DX: E11.621 Type 2 diabetes mellitus with foot ulcer (principal); L97.512 Non-pressure chronic ulcer of other part of right foot with fat layer exposed; M86.271 Subacute osteomyelitis, right ankle and foot; M86.171 Other acute osteomyelitis, right ankle and foot; E11.42 Type 2 diabetes mellitus with diabetic polyneuropathy; E11.69 Type 2 diabetes mellitus with other specified complication; E11.52 Type 2 diabetes mellitus with diabetic peripheral angiopathy with gangrene; I96 Gangrene, not elsewhere classified; E03.9 Hypothyroidism, unspecified; Z87.891 Personal history of nicotine dependence; Z79.4 Long term (current) use of insulin; Z79.899 Other long term (current) drug therapy
CPT/HCPCS: 11044; 28825; 36415; 73630; 73660; 76000; 80053; 82962; 83036; 85027; 85652; 86140; 87015; 87070; 87075; 87076; 87077; 87102; 87116; 87186; 87205; 87206; 88304; 88305; 88311; J7120

== ENCOUNTER → 2017-10-29 10:19 | Outpatient (CLI) | payer OTHER, SELFPAY ==
[2017-10-29 11:10] LABS: Erythrocyte Sedimentation Rate 15 mm/hr (0-20); Hematocrit 49.7 % (40-54); Hemoglobin 16.5 g/dl (13.0-16.5); Mean Corp Hgb Conc 33.2 g/gl (32-36); Mean Corpuscular Hgb 29.7 pg (27.0-32.0); Mean Corpuscular Volume 89.5 fL (80-94); Mean Platelet Vol. 10.3 fl (6.2-12.0); Platelet Count 235 K/mm3 (150-450); RBC Distribution Width CV 13.5 % (11.6-14.6); RBC Distribution Width SD 44.5 fl (35.1-43.9); Red Blood Count 5.55 M/mm3 (4.6-6.2); White Blood Count 7.3 K/mm3 (4.4-11.0)
[2017-10-29 11:11] LABS: Scan Indicated on CBC? Y/N NO
[2017-10-29 11:32] LABS: Anion Gap 7 (5-15); BUN 18 mg/dL (7-18); BUN/Creat Ratio 20.7 RATIO (10-20); Chloride 104 mmol/L (98-107); Creatinine, Serum 0.87 mg/dL (0.70-1.30); EST Glomerular Filtration Rate 93 mL/min (>60); Est Glom Filt Rate - Afr Amer 113 mL/min (>60); Glucose 275 mg/dL (74-106); Potassium 4.3 mmol/L (3.5-5.1); Sodium Level 138 mmol/L (136-145)
== END ==
PROVIDERS: Family Provider Family Medicine; PCP Family Medicine; Visit Provider Internal Medicine Infectious Disease
DX: M86.071 Acute hematogenous osteomyelitis, right ankle and foot (principal); E11.69 Type 2 diabetes mellitus with other specified complication
CPT/HCPCS: 36415; 80048; 85027; 85652

== ENCOUNTER 2017-12-12 08:00 | Outpatient (RCR) | payer OTHER, SELFPAY ==
[2017-10-14 01:04] VITALS: PULSE 92; RESP 18; TEMP 36.6
--- NOTE | 2017-10-19 10:21 | PCM.PN.ID ---
Subjective: S/p R 2nd toe amputation by Dr. Monge 09/27/17. Feet healing well, no fever, no n/v/d. Clearance fragment (+) for osteo on path, and bone cx with MSSA, h. paraflu, and anaerobes. Has been on po abx, two different drugs bid, but he is not sure of their names. - Physical Exam General: Alert, Cooperative Lungs: Clear to auscultation, Normal air movement Cardiovascular: Regular rate, Regular Rhythm Abdomen: Soft, Non Tender, Non-Distended Extremities: Edema - mild BLE Skin: Ulcer/ Wound - R foot wrapped, healing surgical site, no drainage Vital Signs Temp Pulse Resp 98 F 92 18 10/14/17 01:04 10/14/17 01:04 10/14/17 01:04 Medical Necessity - Tobacco Use Smoking Status: Former smoker Route of nutrition/ use of supplements: [] Nutritional Intake: [] IV Site: [] Butler Catheter: [] - Assessment/Plan Antibiotics: [] Assessment/Plan: [] R foot polymicrobial osteo - S/p R 2nd toe amputation by Dr. Monge 09/27/17. Feet healing well, no fever, no n/v/d. Clearance fragment (+) for osteo on path, and bone cx with MSSA, h. paraflu, and anaerobes. Plan is for an additional 6 week course of po doxy 100mg bid and po augmentin 875mg bid. Stop date 11/30/17. Check bmp, cbc, and esr in 1-2 weeks. Will follow.
--- NOTE | 2017-10-19 10:36 | PN.ID_ITS ---
Subjective: S/p R 2nd toe amputation by Dr. Monge 09/27/17. Feet healing well, no fever, no n/v/d. Clearance fragment (+) for osteo on path, and bone cx with MSSA, h. paraflu, and anaerobes. Has been on po abx, two different drugs bid, but he is not sure of their names. - Physical Exam General: Alert, Cooperative Lungs: Clear to auscultation, Normal air movement Cardiovascular: Regular rate, Regular Rhythm Abdomen: Soft, Non Tender, Non-Distended Extremities: Edema - mild BLE Skin: Ulcer/ Wound - R foot wrapped, healing surgical site, no drainage Vital Signs Temp Pulse Resp 98 F 92 18 10/14/17 01:04 10/14/17 01:04 10/14/17 01:04 Medical Necessity - Tobacco Use Smoking Status: Former smoker Route of nutrition/ use of supplements: [] Nutritional Intake: [] IV Site: [] Ubtler Catheter: [] - Assessment/Plan Antibiotics: [] Assessment/Plan: [] R foot polymicrobial osteo - S/p R 2nd toe amputation by Dr. Monge 09/27/17. Feet healing well, no fever, no n/v/d. Clearance fragment (+) for osteo on path , and bone cx with MSSA, h. paraflu, and anaerobes. Plan is for an additional 6 week course of po doxy 100mg bid and po augmentin 875mg bid. Stop date . Check bmp, cbc, and esr in 1-2 weeks. Will follow.
[2017-11-14 08:10] VITALS: BP 143/70; PULSE 86; RESP 18; TEMP 36
--- NOTE | 2017-11-14 08:55 | HP.PCM_ITS ---
(1) Ulcer of right foot with fat layer exposed Status: Chronic Current Visit: Yes Code(s): L97.512 - Non-pressure chronic ulcer of other part of right foot with fat layer exposed (2) Hallux limitus Status: Chronic Current Visit: No Qualifiers: Laterality: right Qualified Code(s): M20.5X1 - Other deformities of toe(s) (acquired), right foot Code(s): M20.5X9 - Other deformities of toe(s) (acquired), unspecified foot (3) PAD (peripheral artery disease) Status: Chronic Current Visit: Yes Code(s): I73.9 - Peripheral vascular disease, unspecified (4) Type 2 diabetes mellitus with diabetic polyneuropathy Status: Chronic Current Visit: Yes Code(s): E11.42 - Type 2 diabetes mellitus with diabetic polyneuropathy History of Present Illness Date of Service: 11/14/17 Chief Complaint: right great toe ulcer. healed 2nd toe amputation site History of Wound: This 67-year-old male with multiple comorbidities is following up with the wound care center for continued treatment of gangrene and wounds to the right first toe. Wound care options and surgical options were discussed. He denies fever, chill, nausea, vomiting. He had a partial right second toe amputation for treatment of osteomyelitis on 09/27/2017. This site has healed. 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) Hallux limitus (Chronic) PAD (peripheral artery disease) (Chronic) HTN (hypertension) (Chronic) Surgical History: tonsillectomy Allergies/Adverse Reactions: Allergies No Known Allergies Allergy (Verified 09/26/17 10:38) Home Medications: Ambulatory Orders Medication Instructions Recorded Canagliflozin [Invokana] 100 mg PO DAILY 08/21/17 Insulin Glargine,Hum.rec.anlog 160 unit SC DAILY 08/21/17 [Toujarrod Solostfany] Levothyroxine Sodium [Synthroid] 100 mcg PO DAILY 08/21/17 Pioglitazone [Actos] 45 mg PO DAILY 08/21/17 Sitagliptin Phos/Metformin HCl 1 tab PO BID 08/21/17 [Janumet Xr 50-1,000 mg Tablet] Aspirin [Aspirin, Baby] 81 mg PO DAILY@0800 #30 tab.chew 08/24/17 Multivitamin [Multiple Vitamins] 1 each PO DAILY 09/12/17 Ascorbic Acid [Vitamin C] 500 mg PO DAILY 09/26/17 - Family History Maternal Family History: Family History (Last Updated 08/30/17 @ 07:15 by Ranjana Tam) Father Diabetes Heart disease Hypertension No pertinent history Paternal Family History: Family History (Last Updated 08/30/17 @ 07:15 by Ranjana Tam) Father Diabetes Heart disease Hypertension Diabetes, Heart Disease, Hypertension Smoking Status: Former smoker Review of Systems Constitutional: Denies: Chills, Fever Cardiovascular: Reports: Edema. Denies: Claudication Respiratory: Denies: Shortness of Breath Skin: Reports: Skin Changes, Wounds Neurological: Reports: Numbness - Physical Exam Vital Signs Temp Pulse Resp BP 96.8 F L 86 18 143/70 H 11/14/17 08:10 11/14/17 08:10 11/14/17 08:10 11/14/17 08:10 General: Alert, Oriented x3, Cooperative HEENT: Atraumatic Extremities: No cyanosis, Capillary Refill Less than 3 Seconds, No Calf Tenderness - negative andre and contreras bilateral, Diminished Peripheral Pulses, Edema - mild, - - decreased loaded first metatarsal phalangeal joint right Skin: Ulcer/ Wound - no purulence, no odor, no erythema, no acute infection. the hallux ulcer remains open. no exposed bone with probe or visualization noted. atrophic skin noted. proximal adjacent site has hematogenous filled bulla with granulation tissue noted upon debridement Wound Measurements and Assessment WC - Nurse 1 - General Ulcer Measurement Start: 11/14/17 08:09 Freq: Status: Active Protocol: Activity Type Activity Date Activity User E-Sign Co-Sign Detail Recorded Client Recorded Date Recorded By Document 11/14/17 08:10 [email or web address] [id number] 11/14/17 08:14 [email or web address] 11/14/17 08:10 Wound Center Nurse 1 [Ulcer Assessment] 3-right hallux -Combined with other wound No -Current Size (cm) - Length 1.2 -Current Size (cm) - Width 0.7 -Current Size (cm) - Depth 0.2 -Total Square Cm 0.84 -Photo Taken Yes -Epithelialization None Present -Tunneling No -Undermining/Tunneling No -Circular Undermining No -Classification - Avalos Grading ( Grade 2 Diabetic Ulcer) -Exudate Amt Small (1-33%) -Exudate Type Serosanguineous -Wound Margin Flat & Intact -Granulation Amt Medium (34-66%) -Granulation Quality Red -Slough/Fibrin Yes -Necrosis Amt Small (1-33%) -Necrotic Tissue Type Adherent Slough -Structure Exposed N/A -Texture (Maxine-wound Skin Appearance) Assessed Callus -Moisture (Maxine-wound Skin Appearance Assessed ) Dry/Scaly -Color (Maxine-wound Skin Appearance) Assessed Ecchymosis -Temperature (Maxine-wound Skin No Abnormality Appearance) (Pt Warm) -Tenderness on Palpation (Maxine-wound No Skin Appearance) -Ulcer Cleansing Rinsed/ Irrigated with Saline -Foul Odor after Cleansing No -Anesthetic Used 4% Lidocaine Solution [Edema Assessment] -Lower Limb Edema Present Yes -Right Calf (cm) 45.0 -Right Ankle (cm) 26.6 WC - Nurse 2 - General Ulcer CM Notes Start: 11/14/17 08:09 Freq: Status: Active Protocol: Activity Type Activity Date Activity User E-Sign Co-Sign Detail Recorded Client Recorded Date Recorded By Document 11/14/17 08:32 [id number] 11/14/17 08:35 11/14/17 08:32 Wound Center Nurse 2 [Procedure/Treatment] 3-right hallux -Time 08:32 -Correct Patient Yes -Correct Side, Site, Position Yes -Correct Procedure Yes -Procedure Performed Yes -Type of Procedure Debridement -Clinical Debridement Subcutaneous -Post Debridement Size (cm) - Length 1.3 -Post Debridement Size (cm) - Width 0.8 -Post Debridement Size (cm) - Depth 0.2 -Total Square Cm 1.04 -Wound/Ulcer Outcome Not Healed -Ulcer Cleansing Rinsed/ Irrigated with Saline -Foul Odor after Cleansing No -Bioengineered Tissue No -Topical Lidocaine (%) 4 -Bleeding Controlled with Pressure -Treatment Response Procedure Tolerated Well [See Physician Procedure note for Specifics] Pain Scale: 0-10 Numeric [Pain] -Is Patient Pain Free? Yes Musculoskeletal: No Tenderness to Palpation of Joints or Extremities, Muscle Wasting Neurological: - - lack of epicritic sensation via light touch Psych/Mental Status: Normal Affect, Appropriate Debridement Note Post-Debridement Measurements/Treatment WC - Nurse 2 - General Ulcer CM Notes Start: 11/14/17 08:09 Freq: Status: Active Protocol: Activity Type Activity Date Activity User E-Sign Co-Sign Detail Recorded Client Recorded Date Recorded By Document 11/14/17 08:32 [id number] 11/14/17 08:35 11/14/17 08:32 Wound Center Nurse 2 3-right hallux -Time 08:32 -Correct Patient Yes -Correct Side, Site, Position Yes -Correct Procedure Yes -Procedure Performed Yes -Type of Procedure Debridement -Clinical Debridement Subcutaneous -Post Debridement Size (cm) - Length 1.3 -Post Debridement Size (cm) - Width 0.8 -Post Debridement Size (cm) - Depth 0.2 -Total Square Cm 1.04 -Wound/Ulcer Outcome Not Healed -Ulcer Cleansing Rinsed/ Irrigated with Saline -Foul Odor after Cleansing No -Bioengineered Tissue No -Topical Lidocaine (%) 4 -Bleeding Controlled with Pressure -Treatment Response Procedure Tolerated Well Pain Scale: 0-10 Numeric Is Patient Pain Free? Yes Wound debrided: plantar medial hallux Laterality: Right Wound Grade/Stage: grade 1 Type of Debridement: Excisional debridement Anesthesia Used: 5% Lidocaine Gel Depth: in the subcutaneous layer Percentage of wound debrided: 100 Instrument Used: #15 blade Tissue Removed: fibrous , devitalized subcutaneous, biofilm, slough Severity: Fat Layer Exposed Amount of bleeding with debridement: Mild Bleeding Controlled with: Pressure Patient tolerated procedure well Assessment/Plan Active Problems (Last Updated 08/30/17 @ 07:15 by Ranjana Tam) Ulcer of right foot with fat layer exposed (Chronic) Type 2 diabetes mellitus with diabetic polyneuropathy (Chronic) PAD (peripheral artery disease) (Chronic) Assessment: 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 s/p partial right 2nd toe amputation secondary to gangrene and chronic ulcer right second toe with osteomyelitis - now healed and no infection. Peripheral vascular disease. Diabetes with neuropathy. Malnutrition suspected. Delayed healing. hallux limitus right Plan: I reviewed and discussed this patient's case. Debridement was performed as noted in the clinical panel. His last hemoglobin A1c level was 6.5%. His surgical site has healed; 2nd toe partial amputation. His right hallux excision ulcer site with closure has reopened. To change dressing daily with doyle; this was applied. His vascular disease is noted. He had biphasic and monophasic waveforms in the right lower extremity with an ankle-brachial index of 0.68. The toe brachial index was not calculated due to noncompressible status. Dr. Borges with vascular surgery did evaluate this patient during his last admission. I reviewed the case in detail with Dr. Borges did not recommend additional intervention at this time. Intervention will be considered if there are any delays in healing or further status change. A new dressing was applied today. To continue with hydrogel and Adaptic daily. He was reassured his localized signs of infection are not noted today. He understands he is still at continued risk for further limb loss and illness. He was advised to wear the surgical shoe to keep pressure off of this site. Additional felt offloading pad was applied to the dorsal shoe flap to further offload the medial aspect. He was advised to maintain proper glycemic control and nutritional supplementation to optimize healing. I also recommend an advanced wound care product, epifix to optimize healing. Preauthorization is pending. The indications, benefits, risks, and anticipated healing time and management were discussed. He is amendable to this plan. To return the wound center in 1 weeks ; he will see Dr. Radford who is covering.
[2017-11-22 14:05] VITALS: BP 145/77; PULSE 82; RESP 16; TEMP 36.4
--- NOTE | 2017-11-22 14:50 | PCM.WC.PN ---
(1) Ulcer of right foot with fat layer exposed Status: Chronic Current Visit: Yes Code(s): L97.512 - Non-pressure chronic ulcer of other part of right foot with fat layer exposed (2) Type 2 diabetes mellitus with diabetic polyneuropathy Status: Chronic Current Visit: Yes Code(s): E11.42 - Type 2 diabetes mellitus with diabetic polyneuropathy (3) Hallux limitus Status: Chronic Current Visit: No Qualifiers: Laterality: right Qualified Code(s): M20.5X1 - Other deformities of toe(s) (acquired), right foot Code(s): M20.5X9 - Other deformities of toe(s) (acquired), unspecified foot (4) PAD (peripheral artery disease) Status: Chronic Current Visit: Yes Code(s): I73.9 - Peripheral vascular disease, unspecified Type of Wound Date of Service: 11/22/17 Chief Complaint: right great toe ulcer. healed 2nd toe amputation site History of Wound: This 67-year-old male with multiple comorbidities is following up with the wound care center for continued treatment of gangrene and wounds to the right first toe. Wound care options and surgical options were discussed. He denies fever, chill, nausea, vomiting. He had a partial right second toe amputation for treatment of osteomyelitis on 09/27/2017. This site has healed. Progress of Wound: Ulcer is stable. Patient has been undergoing doyle dressing changes. - Physical Exam Vital Signs Temp Pulse Resp BP 97.5 F L 82 16 145/77 H 11/22/17 14:05 11/22/17 14:05 11/22/17 14:05 11/22/17 14:05 General: Alert, Oriented x3, Cooperative, No apparent distress Extremities: Capillary Refill Less than 3 Seconds, No Calf Tenderness, Diminished Peripheral Pulses, Edema Skin: Ulcer/ Wound - Ulcer with fat layer exposed to right hallux. No purulence, no malodor, no erythema, no acute infection appreciated at this time. No probing to bone or tracking noted. Atrophic skin noted. Wound Measurements and Assessment WC - Nurse 1 - General Ulcer Measurement Start: 11/14/17 08:09 Freq: Status: Active Protocol: Activity Type Activity Date Activity User E-Sign Co-Sign Detail Recorded Client Recorded Date Recorded By Document 11/22/17 14:05 MW [id number] 11/22/17 14:12 MW 11/22/17 14:05 Wound Center Nurse 1 [Ulcer Assessment] 3-right hallux -Combined with other wound No -Current Size (cm) - Length 1.2 -Current Size (cm) - Width 0.7 -Current Size (cm) - Depth 0.2 -Total Square Cm 0.84 -Photo Taken No -Epithelialization None Present -Tunneling No -Undermining/Tunneling No -Circular Undermining No -Exudate Amt Small (1-33%) -Exudate Type Serosanguineous -Wound Margin Distinct, Outline Attached -Granulation Amt Small (1-33%) -Granulation Quality [place] -Slough/Fibrin Yes -Necrosis Amt Medium (34-66%) -Necrotic Tissue Type Adherent Slough -Structure Exposed N/A -Texture (Maxine-wound Skin Appearance) Assessed Callus -Moisture (Maxine-wound Skin Appearance Assessed ) Dry/Scaly -Color (Maxine-wound Skin Appearance) No Abnormality Assessed -Temperature (Maxine-wound Skin No Abnormality Appearance) (Pt Warm) -Tenderness on Palpation (Maxine-wound Yes Skin Appearance) -Ulcer Cleansing Rinsed/ Irrigated with Saline -Foul Odor after Cleansing No -Anesthetic Used 4% Lidocaine Solution [Edema Assessment] -Lower Limb Edema Present Yes -Right Calf (cm) 47.0 -Right Ankle (cm) 27.0 WC - Nurse 2 - General Ulcer CM Notes Start: 11/14/17 08:09 Freq: Status: Active Protocol: Activity Type Activity Date Activity User E-Sign Co-Sign Detail Recorded Client Recorded Date Recorded By Document 11/22/17 14:25 [id number] 11/22/17 14:27 11/22/17 14:25 Wound Center Nurse 2 [Procedure/Treatment] 3-right hallux -Time 14:25 -Correct Patient Yes -Correct Side, Site, Position Yes -Correct Procedure Yes -Procedure Performed Yes -Type of Procedure Debridement -Clinical Debridement Subcutaneous -Post Debridement Size (cm) - Length 1.3 -Post Debridement Size (cm) - Width 0.8 -Post Debridement Size (cm) - Depth 0.2 -Total Square Cm 1.04 -Wound/Ulcer Outcome Not Healed -Ulcer Cleansing Rinsed/ Irrigated with Saline -Foul Odor after Cleansing No -Bioengineered Tissue No -Topical Lidocaine (%) 4 -Bleeding Controlled with Pressure -Treatment Response Procedure Tolerated Well [See Physician Procedure note for Specifics] Pain Scale: 0-10 Numeric [Pain] -Is Patient Pain Free? Yes Musculoskeletal: No Tenderness to Palpation of Joints or Extremities Neurological: - - Epicritic sensation absent to lower extremity Psych/Mental Status: Normal Affect, Appropriate Debridement Note Post-Debridement Measurements/Treatment WC - Nurse 2 - General Ulcer CM Notes Start: 11/14/17 08:09 Freq: Status: Active Protocol: Activity Type Activity Date Activity User E-Sign Co-Sign Detail Recorded Client Recorded Date Recorded By Document 11/14/17 08:32 TM [id number] 11/14/17 08:35 TM Document 11/22/17 14:25 TM [id number] 11/22/17 14:27 TM 11/14/17 11/22/17 08:32 14:25 Wound Center Nurse 2 3-right hallux -Time 08:32 14:25 -Correct Patient Yes Yes -Correct Side, Site, Position Yes Yes -Correct Procedure Yes Yes -Procedure Performed Yes Yes -Type of Procedure Debridement Debridement -Clinical Debridement Subcutaneous Subcutaneous -Post Debridement Size (cm) - Length 1.3 1.3 -Post Debridement Size (cm) - Width 0.8 0.8 -Post Debridement Size (cm) - Depth 0.2 0.2 -Total Square Cm 1.04 1.04 -Wound/Ulcer Outcome Not Healed Not Healed -Ulcer Cleansing Rinsed/ Rinsed/ Irrigated with Irrigated with Saline Saline -Foul Odor after Cleansing No No -Bioengineered Tissue No No -Topical Lidocaine (%) 4 4 -Bleeding Controlled with Pressure Pressure -Treatment Response Procedure Procedure Tolerated Well Tolerated Well Pain Scale: 0-10 Numeric Is Patient Pain Free? Yes Yes Wound debrided: plantar medial right hallux Laterality: Right Wound Grade/Stage: 1 Type of Debridement: Excisional debridement Anesthesia Used: 4% Lidocaine Solution Depth: in the subcutaneous layer Percentage of wound debrided: 100 Instrument Used: #15 blade Tissue Removed: fibrous , devitalized subcutaneous, biofilm, slough Severity: Fat Layer Exposed Amount of bleeding with debridement: Mild Bleeding Controlled with: Pressure Patient tolerated procedure well Assessment/Plan Active Problems (Last Updated 08/30/17 @ 07:15 by Ranjana Tam) Ulcer of right foot with fat layer exposed (Chronic) Type 2 diabetes mellitus with diabetic polyneuropathy (Chronic) PAD (peripheral artery disease) (Chronic) Assessment: 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 s/p partial right 2nd toe amputation secondary to gangrene and chronic ulcer right second toe with osteomyelitis - now healed and no infection. Peripheral vascular disease. Diabetes with neuropathy. Malnutrition suspected. Delayed healing. hallux limitus right Plan: Patient was seen today in the absence of Dr. Monge. Subcutaneous debridement was performed as noted in the clinical panel. Ulcer site was dressed with doyle and dry sterile dressing. He is to change dressing daily with doyle. Epifix was applied for. His vascular disease is noted. He had biphasic and monophasic waveforms in the right lower extremity with an ankle-brachial index of 0.68. The toe brachial index was not calculated due to noncompressible status. Dr. Borges with vascular surgery did evaluate this patient during his last admission. Intervention will be considered if there are any delays in healing or further status change. He understands he is still at continued risk for further limb loss and illness. He was advised to continue to wear the surgical shoe to keep pressure off of this site. He was advised to maintain proper glycemic control and nutritional supplementation to optimize healing. Patient was educated on all signs and symptoms of local and systemic infection and he was instructed to go to the emergency room immediately should he notice any of these. To return the wound center in 1 week, or sooner if needed.
--- NOTE | 2017-11-22 15:00 | PN.PCM_ITS ---
(1) Ulcer of right foot with fat layer exposed Status: Chronic Current Visit: Yes Code(s): L97.512 - Non-pressure chronic ulcer of other part of right foot with fat layer exposed (2) Type 2 diabetes mellitus with diabetic polyneuropathy Status: Chronic Current Visit: Yes Code(s): E11.42 - Type 2 diabetes mellitus with diabetic polyneuropathy (3) Hallux limitus Status: Chronic Current Visit: No Qualifiers: Laterality: right Qualified Code(s): M20.5X1 - Other deformities of toe(s) (acquired), right foot Code(s): M20.5X9 - Other deformities of toe(s) (acquired), unspecified foot (4) PAD (peripheral artery disease) Status: Chronic Current Visit: Yes Code(s): I73.9 - Peripheral vascular disease, unspecified Type of Wound Date of Service: 11/22/17 Chief Complaint: right great toe ulcer. healed 2nd toe amputation site History of Wound: This 67-year-old male with multiple comorbidities is following up with the wound care center for continued treatment of gangrene and wounds to the right first toe. Wound care options and surgical options were discussed. He denies fever, chill, nausea, vomiting. He had a partial right second toe amputation for treatment of osteomyelitis on 09/27/2017. This site has healed. Progress of Wound: Ulcer is stable. Patient has been undergoing doyle dressing changes. - Physical Exam Vital Signs Temp Pulse Resp BP 97.5 F L 82 16 145/77 H 11/22/17 14:05 11/22/17 14:05 11/22/17 14:05 11/22/17 14:05 General: Alert, Oriented x3, Cooperative, No apparent distress Extremities: Capillary Refill Less than 3 Seconds, No Calf Tenderness, Diminished Peripheral Pulses, Edema Skin: Ulcer/ Wound - Ulcer with fat layer exposed to right hallux. No purulence , no malodor, no erythema, no acute infection appreciated at this time. No probing to bone or tracking noted. Atrophic skin noted. Wound Measurements and Assessment WC - Nurse 1 - General Ulcer Measurement Start: 11/14/17 08:09 Freq: Status: Active Protocol: Activity Type Activity Date Activity User E-Sign Co-Sign Detail Recorded Client Recorded Date Recorded By Document 11/22/17 14:05 MW [id number] 11/22/17 14:12 MW 11/22/17 14:05 Wound Center Nurse 1 [Ulcer Assessment] 3-right hallux -Combined with other wound No -Current Size (cm) - Length 1.2 -Current Size (cm) - Width 0.7 -Current Size (cm) - Depth 0.2 -Total Square Cm 0.84 -Photo Taken No -Epithelialization None Present -Tunneling No -Undermining/Tunneling No -Circular Undermining No -Exudate Amt Small (1-33%) -Exudate Type Serosanguineous -Wound Margin Distinct, Outline Attached -Granulation Amt Small (1-33%) -Granulation Quality [place] -Slough/Fibrin Yes -Necrosis Amt Medium (34-66%) -Necrotic Tissue Type Adherent Slough -Structure Exposed N/A -Texture (Maxine-wound Skin Appearance) Assessed Callus -Moisture (Maxine-wound Skin Appearance Assessed ) Dry/Scaly -Color (Maxine-wound Skin Appearance) No Abnormality Assessed -Temperature (Maxine-wound Skin No Abnormality Appearance) (Pt Warm) -Tenderness on Palpation (Maxine-wound Yes Skin Appearance) -Ulcer Cleansing Rinsed/ Irrigated with Saline -Foul Odor after Cleansing No -Anesthetic Used 4% Lidocaine Solution [Edema Assessment] -Lower Limb Edema Present Yes -Right Calf (cm) 47.0 -Right Ankle (cm) 27.0 WC - Nurse 2 - General Ulcer CM Notes Start: 11/14/17 08:09 Freq: Status: Active Protocol: Activity Type Activity Date Activity User E-Sign Co-Sign Detail Recorded Client Recorded Date Recorded By Document 11/22/17 14:25 [id number] 11/22/17 14:27 11/22/17 14:25 Wound Center Nurse 2 [Procedure/Treatment] 3-right hallux -Time 14:25 -Correct Patient Yes -Correct Side, Site, Position Yes -Correct Procedure Yes -Procedure Performed Yes -Type of Procedure Debridement -Clinical Debridement Subcutaneous -Post Debridement Size (cm) - Length 1.3 -Post Debridement Size (cm) - Width 0.8 -Post Debridement Size (cm) - Depth 0.2 -Total Square Cm 1.04 -Wound/Ulcer Outcome Not Healed -Ulcer Cleansing Rinsed/ Irrigated with Saline -Foul Odor after Cleansing No -Bioengineered Tissue No -Topical Lidocaine (%) 4 -Bleeding Controlled with Pressure -Treatment Response Procedure Tolerated Well [See Physician Procedure note for Specifics] Pain Scale: 0-10 Numeric [Pain] -Is Patient Pain Free? Yes Musculoskeletal: No Tenderness to Palpation of Joints or Extremities Neurological: - - Epicritic sensation absent to lower extremity Psych/Mental Status: Normal Affect, Appropriate Debridement Note Post-Debridement Measurements/Treatment WC - Nurse 2 - General Ulcer CM Notes Start: 11/14/17 08:09 Freq: Status: Active Protocol: Activity Type Activity Date Activity User E-Sign Co-Sign Detail Recorded Client Recorded Date Recorded By Document 11/14/17 08:32 TM [id number] 11/14/17 08:35 TM Document 11/22/17 14:25 TM [id number] 11/22/17 14:27 TM 11/14/17 11/22/17 08:32 14:25 Wound Center Nurse 2 3-right hallux -Time 08:32 14:25 -Correct Patient Yes Yes -Correct Side, Site, Position Yes Yes -Correct Procedure Yes Yes -Procedure Performed Yes Yes -Type of Procedure Debridement Debridement -Clinical Debridement Subcutaneous Subcutaneous -Post Debridement Size (cm) - Length 1.3 1.3 -Post Debridement Size (cm) - Width 0.8 0.8 -Post Debridement Size (cm) - Depth 0.2 0.2 -Total Square Cm 1.04 1.04 -Wound/Ulcer Outcome Not Healed Not Healed -Ulcer Cleansing Rinsed/ Rinsed/ Irrigated with Irrigated with Saline Saline -Foul Odor after Cleansing No No -Bioengineered Tissue No No -Topical Lidocaine (%) 4 4 -Bleeding Controlled with Pressure Pressure -Treatment Response Procedure Procedure Tolerated Well Tolerated Well Pain Scale: 0-10 Numeric Is Patient Pain Free? Yes Yes Wound debrided: plantar medial right hallux Laterality: Right Wound Grade/Stage: 1 Type of Debridement: Excisional debridement Anesthesia Used: 4% Lidocaine Solution Depth: in the subcutaneous layer Percentage of wound debrided: 100 Instrument Used: #15 blade Tissue Removed: fibrous , devitalized subcutaneous, biofilm, slough Severity: Fat Layer Exposed Amount of bleeding with debridement: Mild Bleeding Controlled with: Pressure Patient tolerated procedure well Assessment/Plan Active Problems (Last Updated 08/30/17 @ 07:15 by Ranjana Tam) Ulcer of right foot with fat layer exposed (Chronic) Type 2 diabetes mellitus with diabetic polyneuropathy (Chronic) PAD (peripheral artery disease) (Chronic) Assessment: 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 s/p partial right 2nd toe amputation secondary to gangrene and chronic ulcer right second toe with osteomyelitis - now healed and no infection. Peripheral vascular disease. Diabetes with neuropathy. Malnutrition suspected. Delayed healing. hallux limitus right Plan: Patient was seen today in the absence of Dr. Monge. Subcutaneous debridement was performed as noted in the clinical panel. Ulcer site was dressed with doyle and dry sterile dressing. He is to change dressing daily with doyle. Epifix was applied for. His vascular disease is noted. He had biphasic and monophasic waveforms in the right lower extremity with an ankle- brachial index of 0.68. The toe brachial index was not calculated due to noncompressible status. Dr. Borges with vascular surgery did evaluate this patient during his last admission. Intervention will be considered if there are any delays in healing or further status change. He understands he is still at continued risk for further limb loss and illness. He was advised to continue to wear the surgical shoe to keep pressure off of this site. He was advised to maintain proper glycemic control and nutritional supplementation to optimize healing. Patient was educated on all signs and symptoms of local and systemic infection and he was instructed to go to the emergency room immediately should he notice any of these. To return the wound center in 1 week, or sooner if needed.
[2017-11-28 08:03] VITALS: BP 159/74; PULSE 77; RESP 18; TEMP 36.1
--- NOTE | 2017-11-28 08:46 | PCM.WC.PN ---
(1) Ulcer of right foot with fat layer exposed Status: Chronic Current Visit: Yes Code(s): L97.512 - Non-pressure chronic ulcer of other part of right foot with fat layer exposed (2) Hallux limitus Status: Chronic Current Visit: No Qualifiers: Laterality: right Qualified Code(s): M20.5X1 - Other deformities of toe(s) (acquired), right foot Code(s): M20.5X9 - Other deformities of toe(s) (acquired), unspecified foot (3) PAD (peripheral artery disease) Status: Chronic Current Visit: Yes Code(s): I73.9 - Peripheral vascular disease, unspecified (4) Type 2 diabetes mellitus with diabetic polyneuropathy Status: Chronic Current Visit: Yes Code(s): E11.42 - Type 2 diabetes mellitus with diabetic polyneuropathy Type of Wound Date of Service: 11/28/17 Chief Complaint: right great toe ulcer. healed 2nd toe amputation site History of Wound: This 67-year-old male with multiple comorbidities is following up with the wound care center for continued treatment of gangrene and wounds to the right first toe. Wound care options and surgical options were discussed. He denies fever, chill, nausea, vomiting. He had a partial right second toe amputation for treatment of osteomyelitis on 09/27/2017. This site remains healed. He is waiting for advanced wound care product approval. Progress of Wound: stable - Physical Exam Vital Signs Temp Pulse Resp BP 97 F L 77 18 159/74 H 11/28/17 08:03 11/28/17 08:03 11/28/17 08:03 11/28/17 08:03 General: Alert, Oriented x3, Cooperative HEENT: Atraumatic Extremities: Capillary Refill Less than 3 Seconds, No Calf Tenderness, Diminished Peripheral Pulses, Edema Skin: Ulcer/ Wound - No purulence, no erythema, streaking, odor, no infection. The wound has decreased in size compared to couple weeks ago. There is improved granulation tissue to the base. The peripheral skin is hairless and atrophic. Wound Measurements and Assessment WC - Nurse 1 - General Ulcer Measurement Start: 11/14/17 08:09 Freq: Status: Active Protocol: Activity Type Activity Date Activity User E-Sign Co-Sign Detail Recorded Client Recorded Date Recorded By Document 11/28/17 08:03 RB [id number] 11/28/17 08:11 RB 11/28/17 08:03 Wound Center Nurse 1 [Ulcer Assessment] 3-right hallux -Combined with other wound No -Current Size (cm) - Length 1 -Current Size (cm) - Width 0.7 -Current Size (cm) - Depth 0.2 -Total Square Cm 0.7 -Tunneling No -Undermining/Tunneling No -Circular Undermining No -Classification - [place] Grading ( Grade 2 Diabetic Ulcer) -Exudate Amt Small (1-33%) -Exudate Type Serosanguineous -Wound Margin Thickened -Granulation Amt Medium (34-66%) -Granulation Quality [place] -Slough/Fibrin Yes -Necrosis Amt Medium (34-66%) -Necrotic Tissue Type Adherent Slough -Structure Exposed N/A -Texture (Maxine-wound Skin Appearance) Assessed Callus -Moisture (Maxine-wound Skin Appearance Assessed ) -Color (Maxine-wound Skin Appearance) Assessed -Temperature (Maxine-wound Skin No Abnormality Appearance) (Pt Warm) -Tenderness on Palpation (Maxine-wound No Skin Appearance) -Ulcer Cleansing Rinsed/ Irrigated with Saline -Foul Odor after Cleansing No -Anesthetic Used 4% Lidocaine Solution [Edema Assessment] -Lower Limb Edema Present Yes -Right Calf (cm) 47.8 -Right Ankle (cm) 26.5 WC - Nurse 2 - General Ulcer CM Notes Start: 11/14/17 08:09 Freq: Status: Active Protocol: Activity Type Activity Date Activity User E-Sign Co-Sign Detail Recorded Client Recorded Date Recorded By Document 11/28/17 08:20 [email or web address] [id number] 11/28/17 08:22 [email or web address] 11/28/17 08:20 Wound Center Nurse 2 [Procedure/Treatment] 3-right hallux -Time 08:21 -Correct Patient Yes -Correct Side, Site, Position Yes -Correct Procedure Yes -Procedure Performed Yes -Type of Procedure Debridement -Clinical Debridement Subcutaneous -Post Debridement Size (cm) - Length 1.3 -Post Debridement Size (cm) - Width 1.0 -Post Debridement Size (cm) - Depth 0.2 -Total Square Cm 1.30 -Wound/Ulcer Outcome Not Healed -Ulcer Cleansing Rinsed/ Irrigated with Saline -Foul Odor after Cleansing No -Bioengineered Tissue No -Bleeding Controlled with Pressure -Treatment Response Procedure Tolerated Well [See Physician Procedure note for Specifics] Pain Scale: 0-10 Numeric [Pain] -Is Patient Pain Free? Yes Musculoskeletal: Muscle Wasting, - - Decreased loaded first metatarsal phalangeal joint right Neurological: - - Lack of epicritic sensation light touch right foot Psych/Mental Status: Normal Affect, Appropriate Debridement Note Post-Debridement Measurements/Treatment WC - Nurse 2 - General Ulcer CM Notes Start: 11/14/17 08:09 Freq: Status: Active Protocol: Activity Type Activity Date Activity User E-Sign Co-Sign Detail Recorded Client Recorded Date Recorded By Document 11/14/17 08:32 [id number] 11/14/17 08:35 TM Document 11/22/17 14:25 TM [id number] 11/22/17 14:27 TM Document 11/28/17 08:20 [id number] 11/28/17 08:22 11/14/17 11/22/17 11/28/17 08:32 14:25 08:20 Wound Center Nurse 2 3-right hallux -Time 08:32 14:25 08:21 -Correct Patient Yes Yes Yes -Correct Side, Site, Position Yes Yes Yes -Correct Procedure Yes Yes Yes -Procedure Performed Yes Yes Yes -Type of Procedure Debridement Debridement Debridement -Clinical Debridement Subcutaneous Subcutaneous Subcutaneous -Post Debridement Size (cm) - Length 1.3 1.3 1.3 -Post Debridement Size (cm) - Width 0.8 0.8 1.0 -Post Debridement Size (cm) - Depth 0.2 0.2 0.2 -Total Square Cm 1.04 1.04 1.30 -Wound/Ulcer Outcome Not Healed Not Healed Not Healed -Ulcer Cleansing Rinsed/ Rinsed/ Rinsed/ Irrigated with Irrigated with Irrigated with Saline Saline Saline -Foul Odor after Cleansing No No No -Bioengineered Tissue No No No -Topical Lidocaine (%) 4 4 -Bleeding Controlled with Pressure Pressure Pressure -Treatment Response Procedure Procedure Procedure Tolerated Well Tolerated Well Tolerated Well Pain Scale: 0-10 Numeric Is Patient Pain Free? Yes Yes Yes Wound debrided: plantar medial hallux Laterality: Right Wound Grade/Stage: grade 1 Type of Debridement: Excisional debridement Anesthesia Used: 5% Lidocaine Gel Depth: in the subcutaneous layer Percentage of wound debrided: 100 Instrument Used: #15 blade Tissue Removed: fibrous, devitalized subcutaneous, biofilm, slough Severity: Fat Layer Exposed Amount of bleeding with debridement: Mild Bleeding Controlled with: Pressure Patient tolerated procedure well Assessment/Plan Active Problems (Last Updated 08/30/17 @ 07:15 by Ranjana Tam) Ulcer of right foot with fat layer exposed (Chronic) Type 2 diabetes mellitus with diabetic polyneuropathy (Chronic) PAD (peripheral artery disease) (Chronic) Assessment: 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 s/p partial right 2nd toe amputation secondary to gangrene and chronic ulcer right second toe with osteomyelitis - now healed and no infection. Peripheral vascular disease. Diabetes with neuropathy. Malnutrition suspected. Delayed healing. hallux limitus right Plan: Patient was seen today in the absence of Dr. Monge. Subcutaneous debridement was performed as noted in the clinical panel. Ulcer site was dressed with doyle and dry sterile dressing. He is to change dressing daily with doyle. Epifix was applied for and the decision is still pending. His vascular disease is noted. He had biphasic and monophasic waveforms in the right lower extremity with an ankle-brachial index of 0.68. The toe brachial index was not calculated due to noncompressible status. Dr. Borges with vascular surgery did evaluate this patient during his last admission. Intervention will be considered if there are any delays in healing or further status change. He understands he is still at continued risk for further limb loss and illness. He was advised to continue to wear the surgical shoe to keep pressure off of this site. He was advised to maintain proper glycemic control and nutritional supplementation to optimize healing. Patient was educated on all signs and symptoms of local and systemic infection and he was instructed to go to the emergency room immediately should he notice any of these. It is noted he completed his antibiotic course as advised by infectious disease and the local signs of infection have resolved; doxycycline and Augmentin. To return the wound center in 1 week, or sooner if needed.
[2017-12-05 08:04] VITALS: BP 154/67; PULSE 79; RESP 18; TEMP 36.6
--- NOTE | 2017-12-05 08:32 | PCM.WC.PN ---
(1) Ulcer of right foot with fat layer exposed Status: Chronic Current Visit: Yes Code(s): L97.512 - Non-pressure chronic ulcer of other part of right foot with fat layer exposed (2) Hallux limitus Status: Chronic Current Visit: No Qualifiers: Laterality: right Qualified Code(s): M20.5X1 - Other deformities of toe(s) (acquired), right foot Code(s): M20.5X9 - Other deformities of toe(s) (acquired), unspecified foot (3) PAD (peripheral artery disease) Status: Chronic Current Visit: Yes Code(s): I73.9 - Peripheral vascular disease, unspecified (4) Type 2 diabetes mellitus with diabetic polyneuropathy Status: Chronic Current Visit: Yes Code(s): E11.42 - Type 2 diabetes mellitus with diabetic polyneuropathy Type of Wound Date of Service: 12/05/17 Chief Complaint: right great toe ulcer. healed 2nd toe amputation site History of Wound: This 67-year-old male with multiple comorbidities is following up with the wound care center for continued treatment of wound to the right first toe. Wound care options and surgical options were discussed. He denies fever, chill, nausea, vomiting. He had a partial right second toe amputation for treatment of osteomyelitis on 09/27/2017. This site remains healed. He is not able to afford the copay on the epifix that was approved. Progress of Wound: improving - Physical Exam Vital Signs Temp Pulse Resp BP 97.8 F 79 18 154/67 H 12/05/17 08:04 12/05/17 08:04 12/05/17 08:04 12/05/17 08:04 General: Alert, Oriented x3, Cooperative HEENT: Atraumatic Extremities: Capillary Refill Less than 3 Seconds, No Calf Tenderness, Edema Skin: Ulcer/ Wound - no purulence, no erythema, streaking, no odor, no infection. There is improved granulation tissue in the wound bed. The peripheral skin is atrophic Wound Measurements and Assessment WC - Nurse 1 - General Ulcer Measurement Start: 11/14/17 08:09 Freq: Status: Active Protocol: Activity Type Activity Date Activity User E-Sign Co-Sign Detail Recorded Client Recorded Date Recorded By Document 12/05/17 08:04 DL [id number] 12/05/17 08:09 DL 12/05/17 08:04 Wound Center Nurse 1 [Ulcer Assessment] 3-right hallux -Current Size (cm) - Length 1.1 -Current Size (cm) - Width 0.8 -Current Size (cm) - Depth 0.2 -Total Square Cm 0.88 -Photo Taken No -Exudate Amt Small (1-33%) -Exudate Type Serosanguineous -Wound Margin Thickened -Granulation Amt Medium (34-66%) -Granulation Quality [place] -Necrosis Amt Medium (34-66%) -Necrotic Tissue Type Adherent Slough -Structure Exposed N/A -Texture (Maxine-wound Skin Appearance) Callus -Moisture (Maxine-wound Skin Appearance Dry/Scaly ) -Color (Maxine-wound Skin Appearance) Erythema -Temperature (Maxine-wound Skin No Abnormality Appearance) (Pt Warm) -Ulcer Cleansing Rinsed/ Irrigated with Saline -Foul Odor after Cleansing No -Anesthetic Used 4% Lidocaine Solution [Edema Assessment] -Right Calf (cm) 43.5 -Right Ankle (cm) 24.5 WC - Nurse 2 - General Ulcer CM Notes Start: 11/14/17 08:09 Freq: Status: Active Protocol: Activity Type Activity Date Activity User E-Sign Co-Sign Detail Recorded Client Recorded Date Recorded By Document 12/05/17 08:18 [id number] 12/05/17 08:19 [email or web address] 12/05/17 08:18 Wound Center Nurse 2 [Procedure/Treatment] 3-right hallux -Time 08:18 -Correct Patient Yes -Correct Side, Site, Position Yes -Correct Procedure Yes -Procedure Performed Yes -Type of Procedure Debridement -Clinical Debridement Subcutaneous -Post Debridement Size (cm) - Length 1.2 -Post Debridement Size (cm) - Width 0.8 -Post Debridement Size (cm) - Depth 0.2 -Total Square Cm 0.96 -Wound/Ulcer Outcome Not Healed -Ulcer Cleansing Rinsed/ Irrigated with Saline -Foul Odor after Cleansing No -Bioengineered Tissue No -Bleeding Controlled with Pressure -Treatment Response Procedure Tolerated Well [See Physician Procedure note for Specifics] Pain Scale: 0-10 Numeric [Pain] -Is Patient Pain Free? Yes Musculoskeletal: No Tenderness to Palpation of Joints or Extremities, Muscle Wasting, - - Limited loaded first metatarsophalangeal joint range of motion Neurological: - - Lack of epicritic sensation light touch right lower extremity Psych/Mental Status: Normal Affect, Appropriate Debridement Note Post-Debridement Measurements/Treatment WC - Nurse 2 - General Ulcer CM Notes Start: 11/14/17 08:09 Freq: Status: Active Protocol: Activity Type Activity Date Activity User E-Sign Co-Sign Detail Recorded Client Recorded Date Recorded By Document 11/14/17 08:32 TM [id number] 11/14/17 08:35 TM Document 11/22/17 14:25 TM [id number] 11/22/17 14:27 TM Document 11/28/17 08:20 JF [id number] 11/28/17 08:22 JF Document 12/05/17 08:18 JF [id number] 12/05/17 08:19 JF 11/14/17 11/22/17 11/28/17 08:32 14:25 08:20 Wound Center Nurse 2 3-right hallux -Time 08:32 14:25 08:21 -Correct Patient Yes Yes Yes -Correct Side, Site, Position Yes Yes Yes -Correct Procedure Yes Yes Yes -Procedure Performed Yes Yes Yes -Type of Procedure Debridement Debridement Debridement -Clinical Debridement Subcutaneous Subcutaneous Subcutaneous -Post Debridement Size (cm) - Length 1.3 1.3 1.3 -Post Debridement Size (cm) - Width 0.8 0.8 1.0 -Post Debridement Size (cm) - Depth 0.2 0.2 0.2 -Total Square Cm 1.04 1.04 1.30 -Wound/Ulcer Outcome Not Healed Not Healed Not Healed -Ulcer Cleansing Rinsed/ Rinsed/ Rinsed/ Irrigated with Irrigated with Irrigated with Saline Saline Saline -Foul Odor after Cleansing No No No -Bioengineered Tissue No No No -Topical Lidocaine (%) 4 4 -Bleeding Controlled with Pressure Pressure Pressure -Treatment Response Procedure Procedure Procedure Tolerated Well Tolerated Well Tolerated Well Pain Scale: 0-10 Numeric Is Patient Pain Free? Yes Yes Yes 12/05/17 08:18 Wound Center Nurse 2 3-right hallux -Time 08:18 -Correct Patient Yes -Correct Side, Site, Position Yes -Correct Procedure Yes -Procedure Performed Yes -Type of Procedure Debridement -Clinical Debridement Subcutaneous -Post Debridement Size (cm) - Length 1.2 -Post Debridement Size (cm) - Width 0.8 -Post Debridement Size (cm) - Depth 0.2 -Total Square Cm 0.96 -Wound/Ulcer Outcome Not Healed -Ulcer Cleansing Rinsed/ Irrigated with Saline -Foul Odor after Cleansing No -Bioengineered Tissue No -Topical Lidocaine (%) -Bleeding Controlled with Pressure -Treatment Response Procedure Tolerated Well Pain Scale: 0-10 Numeric Is Patient Pain Free? Yes Wound debrided: plantar medial hallux Laterality: Right Wound Grade/Stage: grade 1 Type of Debridement: Excisional debridement Anesthesia Used: 5% Lidocaine Gel Depth: in the subcutaneous layer Percentage of wound debrided: 90 Instrument Used: #15 blade Tissue Removed: fibrous, devitalized subcutaneous, biofilm, slough Severity: Fat Layer Exposed Amount of bleeding with debridement: Mild Bleeding Controlled with: Pressure Patient tolerated procedure well Assessment/Plan Active Problems (Last Updated 08/30/17 @ 07:15 by Ranjana Tam) Ulcer of right foot with fat layer exposed (Chronic) Type 2 diabetes mellitus with diabetic polyneuropathy (Chronic) PAD (peripheral artery disease) (Chronic) Assessment: 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 Peripheral vascular disease. Diabetes with neuropathy. Malnutrition suspected. Delayed healing. hallux limitus right Plan: I reviewed and discussed his case and care plan. Subcutaneous debridement was performed as noted in the clinical panel. Ulcer site was dressed with doyle and dry sterile dressing. He is to change dressing daily with doyle. Epifix was applied for and was approved; he does have a co-pay. He defers application today due to his co-pay. His vascular disease is noted. He had biphasic and monophasic waveforms in the right lower extremity with an ankle-brachial index of 0.68. The toe brachial index was not calculated due to noncompressible status. Dr. Borges with vascular surgery did evaluate this patient during his last admission. Intervention will be considered if there are any delays in healing or further status change. He understands he is still at continued risk for further limb loss and illness. He was advised to continue to wear the surgical shoe to keep pressure off of this site. He was advised to maintain proper glycemic control and nutritional supplementation to optimize healing. Patient was educated on all signs and symptoms of local and systemic infection and he was instructed to go to the emergency room immediately should he notice any of these. It is noted he completed his antibiotic course as advised by infectious disease and the local signs of infection have resolved; doxycycline and Augmentin. To return the wound center in 1 week, or sooner if needed. He requests additional documentation for [facility] and asked chanell. The information he is requesting is not clear and he is unable to provide a fax number person to send his information to. I advised him it is his responsibility to relay this information in a distinct manner so we understand what needs to be completed, and we are more than happy to fill out any forms or write letters to get him improved coverage.
[2017-12-12 08:02] VITALS: BP 164/70; PULSE 80; RESP 18; TEMP 36.6
--- NOTE | 2017-12-12 08:04 | WC ---
pt went to dr marj astorga and he prescribed medication tiwice aday for 7 days pt not sure of name of Rx.
--- NOTE | 2017-12-12 09:14 | PCM.WC.PN ---
(1) Ulcer of right foot with fat layer exposed Status: Chronic Current Visit: Yes Code(s): L97.512 - Non-pressure chronic ulcer of other part of right foot with fat layer exposed (2) Hallux limitus Status: Chronic Current Visit: No Qualifiers: Laterality: right Qualified Code(s): M20.5X1 - Other deformities of toe(s) (acquired), right foot Code(s): M20.5X9 - Other deformities of toe(s) (acquired), unspecified foot (3) PAD (peripheral artery disease) Status: Chronic Current Visit: Yes Code(s): I73.9 - Peripheral vascular disease, unspecified (4) Type 2 diabetes mellitus with diabetic polyneuropathy Status: Chronic Current Visit: Yes Code(s): E11.42 - Type 2 diabetes mellitus with diabetic polyneuropathy Type of Wound Date of Service: 12/12/17 Chief Complaint: right great toe ulcer. healed 2nd toe amputation site. Right leg redness and swelling History of Wound: This 67-year-old male with multiple comorbidities is following up with the wound care center for continued treatment of wound to the right first toe. Wound care options and surgical options were discussed. He denies fever, chill, nausea, vomiting. He had a partial right second toe amputation for treatment of osteomyelitis on 09/27/2017. This site remains healed. He is not able to afford the copay on the epifix that was approved. It is noted he had recent other medical care this past week and will reconsider his progress towards his deductible and he advanced wound care product opportunity in the near future. He had swelling and redness to his right leg and he saw his primary care physician who placed him on 2 antibiotics. He denies loss of appetite. He does not recall the name of his antibiotics. He denies wound odor. Progress of Wound: improving - Physical Exam Vital Signs Temp Pulse Resp BP 97.9 F 80 18 164/70 H 12/12/17 08:02 12/12/17 08:02 12/12/17 08:02 12/12/17 08:02 General: Alert, Oriented x3, Cooperative Extremities: No cyanosis, Capillary Refill Less than 3 Seconds, No Calf Tenderness, Diminished Peripheral Pulses, - - decreased loaded first metatarsal phalangeal joint noted Skin: Ulcer/ Wound - no purulence ,no erythema, no streaking, no odor, no necrosis. the wound bed is granular and fibrous. The second toe amputation site remains healed and skin remodeling is going well, - - Atrophic skin Wound Measurements and Assessment WC - Nurse 1 - General Ulcer Measurement Start: 11/14/17 08:09 Freq: Status: Active Protocol: Activity Type Activity Date Activity User E-Sign Co-Sign Detail Recorded Client Recorded Date Recorded By Document 12/12/17 08:02 RB [id number] 12/12/17 08:13 RB 12/12/17 08:02 Wound Center Nurse 1 [Ulcer Assessment] 3-right hallux -Combined with other wound No -Current Size (cm) - Length 1.6 -Current Size (cm) - Width 1 -Current Size (cm) - Depth 0.2 -Total Square Cm 1.6 -Photo Taken No -Epithelialization Small 1-33% -Tunneling No -Undermining/Tunneling No -Circular Undermining No -Classification - Thickness Full Thickness without Exposed Support Structure -Exudate Amt Small (1-33%) -Exudate Type Serosanguineous -Wound Margin Distinct, Outline Attached -Granulation Amt Small (1-33%) -Granulation Quality [place] -Slough/Fibrin Yes -Necrosis Amt Large (67-100%) -Necrotic Tissue Type Adherent Slough -Structure Exposed N/A -Texture (Maxine-wound Skin Appearance) Assessed Callus -Moisture (Maxine-wound Skin Appearance Assessed ) -Color (Maxine-wound Skin Appearance) Assessed -Temperature (Maxine-wound Skin No Abnormality Appearance) (Pt Warm) -Tenderness on Palpation (Maxine-wound No Skin Appearance) -Ulcer Cleansing Rinsed/ Irrigated with Saline -Foul Odor after Cleansing No -Anesthetic Used 5% Lidocaine Gel [Edema Assessment] -Lower Limb Edema Present Yes -Right Calf (cm) 46 -Right Ankle (cm) 29.2 12/12/17 08:04 Wound Center by Kimmie Gomez pt went to dr marj astorga and he prescribed medication tiwice aday for 7 days pt not sure of name of Rx. Initialized on 12/12/17 08:04 - END OF NOTE WC - Nurse 2 - General Ulcer CM Notes Start: 11/14/17 08:09 Freq: Status: Active Protocol: Activity Type Activity Date Activity User E-Sign Co-Sign Detail Recorded Client Recorded Date Recorded By Document 12/12/17 08:26 [id number] 12/12/17 08:27 12/12/17 08:26 Wound Center Nurse 2 [Procedure/Treatment] 3-right hallux -Time 08:27 -Correct Patient Yes -Correct Side, Site, Position Yes -Correct Procedure Yes -Procedure Performed Yes -Type of Procedure Debridement -Clinical Debridement Subcutaneous -Post Debridement Size (cm) - Length 1.8 -Post Debridement Size (cm) - Width 0.6 -Post Debridement Size (cm) - Depth 0.1 -Total Square Cm 1.08 -Wound/Ulcer Outcome Not Healed -Ulcer Cleansing Rinsed/ Irrigated with Saline -Foul Odor after Cleansing No -Bioengineered Tissue No -Bleeding Controlled with Pressure -Treatment Response Procedure Tolerated Well [See Physician Procedure note for Specifics] Pain Scale: 0-10 Numeric [Pain] -Is Patient Pain Free? Yes Musculoskeletal: No Tenderness to Palpation of Joints or Extremities, Muscle Wasting, - - Partial right second toe amputation Neurological: - - Lack of epicritic sensation light touch right lower extremity Psych/Mental Status: Normal Affect, Appropriate Debridement Note Post-Debridement Measurements/Treatment WC - Nurse 2 - General Ulcer CM Notes Start: 11/14/17 08:09 Freq: Status: Active Protocol: Activity Type Activity Date Activity User E-Sign Co-Sign Detail Recorded Client Recorded Date Recorded By Document 11/14/17 08:32 [id number] 11/14/17 08:35 Document 11/22/17 14:25 [id number] 11/22/17 14:27 Document 11/28/17 08:20 [id number] 11/28/17 08:22 Document 12/05/17 08:18 [id number] 12/05/17 08:19 Document 12/12/17 08:26 [id number] 12/12/17 08:27 11/14/17 11/22/17 11/28/17 08:32 14:25 08:20 Wound Center Nurse 2 3-right hallux -Time 08:32 14:25 08:21 -Correct Patient Yes Yes Yes -Correct Side, Site, Position Yes Yes Yes -Correct Procedure Yes Yes Yes -Procedure Performed Yes Yes Yes -Type of Procedure Debridement Debridement Debridement -Clinical Debridement Subcutaneous Subcutaneous Subcutaneous -Post Debridement Size (cm) - Length 1.3 1.3 1.3 -Post Debridement Size (cm) - Width 0.8 0.8 1.0 -Post Debridement Size (cm) - Depth 0.2 0.2 0.2 -Total Square Cm 1.04 1.04 1.30 -Wound/Ulcer Outcome Not Healed Not Healed Not Healed -Ulcer Cleansing Rinsed/ Rinsed/ Rinsed/ Irrigated with Irrigated with Irrigated with Saline Saline Saline -Foul Odor after Cleansing No No No -Bioengineered Tissue No No No -Topical Lidocaine (%) 4 4 -Bleeding Controlled with Pressure Pressure Pressure -Treatment Response Procedure Procedure Procedure Tolerated Well Tolerated Well Tolerated Well Pain Scale: 0-10 Numeric Is Patient Pain Free? Yes Yes Yes 12/05/17 12/12/17 08:18 08:26 Wound Center Nurse 2 3-right hallux -Time 08:18 08:27 -Correct Patient Yes Yes -Correct Side, Site, Position Yes Yes -Correct Procedure Yes Yes -Procedure Performed Yes Yes -Type of Procedure Debridement Debridement -Clinical Debridement Subcutaneous Subcutaneous -Post Debridement Size (cm) - Length 1.2 1.8 -Post Debridement Size (cm) - Width 0.8 0.6 -Post Debridement Size (cm) - Depth 0.2 0.1 -Total Square Cm 0.96 1.08 -Wound/Ulcer Outcome Not Healed Not Healed -Ulcer Cleansing Rinsed/ Rinsed/ Irrigated with Irrigated with Saline Saline -Foul Odor after Cleansing No No -Bioengineered Tissue No No -Topical Lidocaine (%) -Bleeding Controlled with Pressure Pressure -Treatment Response Procedure Procedure Tolerated Well Tolerated Well Pain Scale: 0-10 Numeric Is Patient Pain Free? Yes Yes Wound debrided: hallux Laterality: Right Wound Grade/Stage: grade 1 Type of Debridement: Excisional debridement Anesthesia Used: 5% Lidocaine Gel Depth: in the subcutaneous layer Percentage of wound debrided: 100 Instrument Used: #15 blade Tissue Removed: fibrous, devitalized subcutaneous tissue, biofilm, slough Severity: Fat Layer Exposed Amount of bleeding with debridement: Mild Bleeding Controlled with: Pressure Patient tolerated procedure well Assessment/Plan Active Problems (Last Updated 08/30/17 @ 07:15 by Ranjana Tam) Ulcer of right foot with fat layer exposed (Chronic) Type 2 diabetes mellitus with diabetic polyneuropathy (Chronic) PAD (peripheral artery disease) (Chronic) Assessment: 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 Right leg cellulitis controlled-treated by primary care physician with 2 oral antibiotics. Peripheral vascular disease. Diabetes with neuropathy. Malnutrition suspected. Delayed healing. hallux limitus right Plan: I reviewed and discussed his case and care plan. Subcutaneous debridement was performed as noted in the clinical panel. Ulcer site was dressed with doyle and dry sterile dressing. He is to change dressing daily with doyle. Epifix was applied for and was approved; he does have a co-pay. He defers application today due to his co-pay and will reevaluate his insurance status in the near future. He was more amendable to consider this opportunity today compared to last visit. His vascular disease is noted. He had biphasic and monophasic waveforms in the right lower extremity with an ankle-brachial index of 0.68. The toe brachial index was not calculated due to noncompressible status. Dr. Borges with vascular surgery did evaluate this patient during his last admission. Intervention will be considered if there are any delays in healing or further status change. He understands he is still at continued risk for further limb loss and illness. He was advised to continue to wear the surgical shoe to keep pressure off of this site. He was advised to maintain proper glycemic control and nutritional supplementation to optimize healing. Patient was educated on all signs and symptoms of local and systemic infection and he was instructed to go to the emergency room immediately should he notice any of these. It is noted he completed his antibiotic course as advised by infectious disease and the local signs of infection have resolved; doxycycline and Augmentin. He started a new antibiotic regimen for his right leg cellulitis and this is stable; to follow-up with his primary care physician as scheduled. To return the wound center in 1 week, or sooner if needed. His requested documentation was completed and I advised him to contact me if he needs additional letters or copies of office notes. I answered all of his questions today.
== END 2017-12-13 23:59 ==
LOC: WC 08:00
PROVIDERS: Family Provider Family Medicine; PCP Family Medicine; Visit Provider Podiatrist
DX: E11.621 Type 2 diabetes mellitus with foot ulcer (principal); E11.42 Type 2 diabetes mellitus with diabetic polyneuropathy; L97.512 Non-pressure chronic ulcer of other part of right foot with fat layer exposed; M20.5X1 Other deformities of toe(s) (acquired), right foot; M20.5X9 Other deformities of toe(s) (acquired), unspecified foot; I73.9 Peripheral vascular disease, unspecified; I10 Essential (primary) hypertension; L03.115 Cellulitis of right lower limb
CPT/HCPCS: 11042; 99213; G0463

== ENCOUNTER 2018-01-09 08:00 | Outpatient (RCR) | payer OTHER, SELFPAY ==
[2017-12-14 00:11] VITALS: BP 164/70; PULSE 80; RESP 18; TEMP 36.6
[2017-12-26 08:11] VITALS: BP 132/69; PULSE 77; RESP 18; TEMP 36.2
--- NOTE | 2017-12-26 09:13 | PCM.WC.PN ---
(1) Ulcer of right foot with fat layer exposed Status: Chronic Current Visit: Yes Code(s): L97.512 - Non-pressure chronic ulcer of other part of right foot with fat layer exposed (2) Type 2 diabetes mellitus with diabetic polyneuropathy Status: Chronic Current Visit: Yes Code(s): E11.42 - Type 2 diabetes mellitus with diabetic polyneuropathy (3) PAD (peripheral artery disease) Status: Chronic Current Visit: Yes Code(s): I73.9 - Peripheral vascular disease, unspecified Type of Wound Date of Service: 12/26/17 Chief Complaint: right great toe ulcer History of Wound: This 67-year-old male with multiple comorbidities is following up with the wound care center for continued treatment of wound to the right first toe. Wound care options and surgical options were discussed. He denies fever, chill, nausea, vomiting. He had a partial right second toe amputation for treatment of osteomyelitis on 09/27/2017. This site remains healed. He kept epi fix in place last week as advised and tries to place weight on his heel and his protective surgical shoe. He reports he needs an updated work statement and forms completed in regards to his time off due to his medical condition. Progress of Wound: improving - Physical Exam Vital Signs Temp Pulse Resp BP 97.1 F L 77 18 132/69 H 12/26/17 08:11 12/26/17 08:11 12/26/17 08:11 12/26/17 08:11 General: Alert, Oriented x3, Cooperative Extremities: No cyanosis, Capillary Refill Less than 3 Seconds, No Calf Tenderness, Diminished Peripheral Pulses, Edema Skin: Ulcer/ Wound - No purulence, no erythema, streaking, no odor, no infection. There is no exposed bone or joint capsule today., - - Atrophic skin Wound Measurements and Assessment WC - Nurse 1 - General Ulcer Measurement Start: 12/26/17 08:11 Freq: Status: Active Protocol: Activity Type Activity Date Activity User E-Sign Co-Sign Detail Recorded Client Recorded Date Recorded By Document 12/26/17 08:11 [email or web address] [id number] 12/26/17 08:16 AISHWARYA 12/26/17 08:11 Wound Center Nurse 1 [Ulcer Assessment] 3-right hallux -Combined with other wound No -Current Size (cm) - Length 1.4 -Current Size (cm) - Width 0.6 -Current Size (cm) - Depth 0.1 -Total Square Cm 0.84 -Photo Taken Yes -Epithelialization Small 1-33% -Tunneling No -Undermining/Tunneling No -Circular Undermining No -Classification - Thickness Full Thickness without Exposed Support Structure -Exudate Amt Small (1-33%) -Exudate Type Serosanguineous -Wound Margin Thickened -Granulation Amt Medium (34-66%) -Granulation Quality Pale -Slough/Fibrin Yes -Necrosis Amt Medium (34-66%) -Necrotic Tissue Type Adherent Slough -Structure Exposed N/A -Texture (Maxine-wound Skin Appearance) Assessed Callus -Moisture (Maxine-wound Skin Appearance Assessed ) -Color (Maxine-wound Skin Appearance) Assessed -Temperature (Maxine-wound Skin No Abnormality Appearance) (Pt Warm) -Tenderness on Palpation (Maxine-wound No Skin Appearance) -Ulcer Cleansing Wound Cleanser -Foul Odor after Cleansing No -Anesthetic Used 4% Lidocaine Solution [Edema Assessment] -Lower Limb Edema Present Yes -Right Calf (cm) 45.8 -Right Ankle (cm) 28 WC - Nurse 2 - General Ulcer CM Notes Start: 12/26/17 08:11 Freq: Status: Active Protocol: Activity Type Activity Date Activity User E-Sign Co-Sign Detail Recorded Client Recorded Date Recorded By Document 12/26/17 08:31 [email or web address] [id number] 12/26/17 08:33 12/26/17 08:31 Wound Center Nurse 2 [Procedure/Treatment] 3-right hallux -Time 08:32 -Correct Patient Yes -Correct Side, Site, Position Yes -Correct Procedure Yes -Procedure Performed Yes -Type of Procedure Debridement -Clinical Debridement Subcutaneous -Post Debridement Size (cm) - Length 1.5 -Post Debridement Size (cm) - Width 0.8 -Post Debridement Size (cm) - Depth 0.1 -Total Square Cm 1.20 -Wound/Ulcer Outcome Not Healed -Ulcer Cleansing Rinsed/ Irrigated with Saline -Foul Odor after Cleansing No -Bioengineered Tissue Yes -Type of bioengineered Tissue EPIFIX -Expiration Date 07/16/22 -Product Lot Number [id number] -Percent Used 100 -Saline Lot Number [id number] -Bleeding Controlled with Pressure -Treatment Response Procedure Tolerated Well [See Physician Procedure note for Specifics] Pain Scale: 0-10 Numeric [Pain] -Is Patient Pain Free? Yes Musculoskeletal: No Tenderness to Palpation of Joints or Extremities, Muscle Wasting, - - Limited hallux dorsiflexion right foot Neurological: - - Lack of epicritic sensation light touch right foot Psych/Mental Status: Normal Affect, Appropriate Debridement Note Post-Debridement Measurements/Treatment WC - Nurse 2 - General Ulcer CM Notes Start: 12/26/17 08:11 Freq: Status: Active Protocol: Activity Type Activity Date Activity User E-Sign Co-Sign Detail Recorded Client Recorded Date Recorded By Document 12/26/17 08:31 [id number] 12/26/17 08:33 AISHWARYA 12/26/17 08:31 Wound Center Nurse 2 3-right hallux -Time 08:32 -Correct Patient Yes -Correct Side, Site, Position Yes -Correct Procedure Yes -Procedure Performed Yes -Type of Procedure Debridement -Clinical Debridement Subcutaneous -Post Debridement Size (cm) - Length 1.5 -Post Debridement Size (cm) - Width 0.8 -Post Debridement Size (cm) - Depth 0.1 -Total Square Cm 1.20 -Wound/Ulcer Outcome Not Healed -Ulcer Cleansing Rinsed/ Irrigated with Saline -Foul Odor after Cleansing No -Bioengineered Tissue Yes -Type of bioengineered Tissue EPIFIX -Expiration Date 07/16/22 -Product Lot Number [id number] -Percent Used 100 -Saline Lot Number [id number] -Bleeding Controlled with Pressure -Treatment Response Procedure Tolerated Well Pain Scale: 0-10 Numeric Is Patient Pain Free? Yes Wound debrided: plantar hallux Laterality: Right Wound Grade/Stage: grade 1 Type of Debridement: Excisional debridement Anesthesia Used: 5% Lidocaine Gel Depth: in the subcutaneous layer Percentage of wound debrided: 100 Instrument Used: #15 blade Tissue Removed: fibrous, devitalized subcutaneous, biofilm, slough Severity: Fat Layer Exposed Amount of bleeding with debridement: Mild Bleeding Controlled with: Pressure Patient tolerated procedure well Assessment/Plan Active Problems (Last Updated 08/30/17 @ 07:15 by Ranjana Tam) Ulcer of right foot with fat layer exposed (Chronic) Type 2 diabetes mellitus with diabetic polyneuropathy (Chronic) PAD (peripheral artery disease) (Chronic) Assessment: 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 Peripheral vascular disease. Diabetes with neuropathy. Malnutrition suspected. Delayed healing. hallux limitus right Plan: I reviewed and discussed his case and care plan. Subcutaneous debridement was performed as noted in the clinical panel. Epifix was applied for and was approved; this was applied today according to standard protocol after verbal consent was obtained. A wound veil was applied and this was secured with Steri-Strips. A secondary dressing with gauze was applied and he was advised to keep this clean and intact until follow-up visit. He was reassured there are no local signs of infection. He had biphasic and monophasic waveforms in the right lower extremity with an ankle-brachial index of 0.68. The toe brachial index was not calculated due to noncompressible status. Dr. Borges with vascular surgery did evaluate this patient during his last admission. Intervention will be considered if there are any delays in healing or further status change. He understands he is still at continued risk for further limb loss and illness. He was advised to continue to wear the surgical shoe to keep pressure off of this site. He was advised to maintain proper glycemic control and nutritional supplementation to optimize healing. Patient was educated on all signs and symptoms of local and systemic infection and he was instructed to go to the emergency room immediately should he notice any of these. It is noted he completed his antibiotic course as advised by infectious disease and the local signs of infection have resolved; doxycycline and Augmentin. He started a new antibiotic regimen for his right leg cellulitis and this is stable; to follow-up with his primary care physician as scheduled. To return the wound center in 1 week, or sooner if needed. He was advised to provide the paperwork that he needs completed for work and I be more than happy to process them.
--- NOTE | 2017-12-26 09:19 | PN.PCM_ITS ---
(1) Ulcer of right foot with fat layer exposed Status: Chronic Current Visit: Yes Code(s): L97.512 - Non-pressure chronic ulcer of other part of right foot with fat layer exposed (2) Type 2 diabetes mellitus with diabetic polyneuropathy Status: Chronic Current Visit: Yes Code(s): E11.42 - Type 2 diabetes mellitus with diabetic polyneuropathy (3) PAD (peripheral artery disease) Status: Chronic Current Visit: Yes Code(s): I73.9 - Peripheral vascular disease, unspecified Type of Wound Date of Service: 12/26/17 Chief Complaint: right great toe ulcer History of Wound: This 67-year-old male with multiple comorbidities is following up with the wound care center for continued treatment of wound to the right first toe. Wound care options and surgical options were discussed. He denies fever, chill, nausea, vomiting. He had a partial right second toe amputation for treatment of osteomyelitis on 09/27/2017. This site remains healed. He kept epi fix in place last week as advised and tries to place weight on his heel and his protective surgical shoe. He reports he needs an updated work statement and forms completed in regards to his time off due to his medical condition. Progress of Wound: improving - Physical Exam Vital Signs Temp Pulse Resp BP 97.1 F L 77 18 132/69 H 12/26/17 08:11 12/26/17 08:11 12/26/17 08:11 12/26/17 08:11 General: Alert, Oriented x3, Cooperative Extremities: No cyanosis, Capillary Refill Less than 3 Seconds, No Calf Tenderness, Diminished Peripheral Pulses, Edema Skin: Ulcer/ Wound - No purulence, no erythema, streaking, no odor, no infection. There is no exposed bone or joint capsule today., - - Atrophic skin Wound Measurements and Assessment WC - Nurse 1 - General Ulcer Measurement Start: 12/26/17 08:11 Freq: Status: Active Protocol: Activity Type Activity Date Activity User E-Sign Co-Sign Detail Recorded Client Recorded Date Recorded By Document 12/26/17 08:11 [email or web address] [id number] 12/26/17 08:16 AISHWARYA 12/26/17 08:11 Wound Center Nurse 1 [Ulcer Assessment] 3-right hallux -Combined with other wound No -Current Size (cm) - Length 1.4 -Current Size (cm) - Width 0.6 -Current Size (cm) - Depth 0.1 -Total Square Cm 0.84 -Photo Taken Yes -Epithelialization Small 1-33% -Tunneling No -Undermining/Tunneling No -Circular Undermining No -Classification - Thickness Full Thickness without Exposed Support Structure -Exudate Amt Small (1-33%) -Exudate Type Serosanguineous -Wound Margin Thickened -Granulation Amt Medium (34-66%) -Granulation Quality Pale -Slough/Fibrin Yes -Necrosis Amt Medium (34-66%) -Necrotic Tissue Type Adherent Slough -Structure Exposed N/A -Texture (Maxine-wound Skin Appearance) Assessed Callus -Moisture (Maxine-wound Skin Appearance Assessed ) -Color (Maxine-wound Skin Appearance) Assessed -Temperature (Maxine-wound Skin No Abnormality Appearance) (Pt Warm) -Tenderness on Palpation (Maxine-wound No Skin Appearance) -Ulcer Cleansing Wound Cleanser -Foul Odor after Cleansing No -Anesthetic Used 4% Lidocaine Solution [Edema Assessment] -Lower Limb Edema Present Yes -Right Calf (cm) 45.8 -Right Ankle (cm) 28 WC - Nurse 2 - General Ulcer CM Notes Start: 12/26/17 08:11 Freq: Status: Active Protocol: Activity Type Activity Date Activity User E-Sign Co-Sign Detail Recorded Client Recorded Date Recorded By Document 12/26/17 08:31 AISHWARYA [id number] 12/26/17 08:33 12/26/17 08:31 Wound Center Nurse 2 [Procedure/Treatment] 3-right hallux -Time 08:32 -Correct Patient Yes -Correct Side, Site, Position Yes -Correct Procedure Yes -Procedure Performed Yes -Type of Procedure Debridement -Clinical Debridement Subcutaneous -Post Debridement Size (cm) - Length 1.5 -Post Debridement Size (cm) - Width 0.8 -Post Debridement Size (cm) - Depth 0.1 -Total Square Cm 1.20 -Wound/Ulcer Outcome Not Healed -Ulcer Cleansing Rinsed/ Irrigated with Saline -Foul Odor after Cleansing No -Bioengineered Tissue Yes -Type of bioengineered Tissue EPIFIX -Expiration Date 07/16/22 -Product Lot Number [id number] -Percent Used 100 -Saline Lot Number [id number] -Bleeding Controlled with Pressure -Treatment Response Procedure Tolerated Well [See Physician Procedure note for Specifics] Pain Scale: 0-10 Numeric [Pain] -Is Patient Pain Free? Yes Musculoskeletal: No Tenderness to Palpation of Joints or Extremities, Muscle Wasting, - - Limited hallux dorsiflexion right foot Neurological: - - Lack of epicritic sensation light touch right foot Psych/Mental Status: Normal Affect, Appropriate Debridement Note Post-Debridement Measurements/Treatment WC - Nurse 2 - General Ulcer CM Notes Start: 12/26/17 08:11 Freq: Status: Active Protocol: Activity Type Activity Date Activity User E-Sign Co-Sign Detail Recorded Client Recorded Date Recorded By Document 12/26/17 08:31 [id number] 12/26/17 08:33 AISHWARYA 12/26/17 08:31 Wound Center Nurse 2 3-right hallux -Time 08:32 -Correct Patient Yes -Correct Side, Site, Position Yes -Correct Procedure Yes -Procedure Performed Yes -Type of Procedure Debridement -Clinical Debridement Subcutaneous -Post Debridement Size (cm) - Length 1.5 -Post Debridement Size (cm) - Width 0.8 -Post Debridement Size (cm) - Depth 0.1 -Total Square Cm 1.20 -Wound/Ulcer Outcome Not Healed -Ulcer Cleansing Rinsed/ Irrigated with Saline -Foul Odor after Cleansing No -Bioengineered Tissue Yes -Type of bioengineered Tissue EPIFIX -Expiration Date 07/16/22 -Product Lot Number [id number] -Percent Used 100 -Saline Lot Number [id number] -Bleeding Controlled with Pressure -Treatment Response Procedure Tolerated Well Pain Scale: 0-10 Numeric Is Patient Pain Free? Yes Wound debrided: plantar hallux Laterality: Right Wound Grade/Stage: grade 1 Type of Debridement: Excisional debridement Anesthesia Used: 5% Lidocaine Gel Depth: in the subcutaneous layer Percentage of wound debrided: 100 Instrument Used: #15 blade Tissue Removed: fibrous, devitalized subcutaneous, biofilm, slough Severity: Fat Layer Exposed Amount of bleeding with debridement: Mild Bleeding Controlled with: Pressure Patient tolerated procedure well Assessment/Plan Active Problems (Last Updated 08/30/17 @ 07:15 by Ranjana Tam) Ulcer of right foot with fat layer exposed (Chronic) Type 2 diabetes mellitus with diabetic polyneuropathy (Chronic) PAD (peripheral artery disease) (Chronic) Assessment: 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 Peripheral vascular disease. Diabetes with neuropathy. Malnutrition suspected. Delayed healing. hallux limitus right Plan: I reviewed and discussed his case and care plan. Subcutaneous debridement was performed as noted in the clinical panel. Epifix was applied for and was approved; this was applied today according to standard protocol after verbal consent was obtained. A wound veil was applied and this was secured with Steri-Strips. A secondary dressing with gauze was applied and he was advised to keep this clean and intact until follow-up visit. He was reassured there are no local signs of infection. He had biphasic and monophasic waveforms in the right lower extremity with an ankle-brachial index of 0.68. The toe brachial index was not calculated due to noncompressible status. Dr. Borges with vascular surgery did evaluate this patient during his last admission. Intervention will be considered if there are any delays in healing or further status change. He understands he is still at continued risk for further limb loss and illness. He was advised to continue to wear the surgical shoe to keep pressure off of this site. He was advised to maintain proper glycemic control and nutritional supplementation to optimize healing. Patient was educated on all signs and symptoms of local and systemic infection and he was instructed to go to the emergency room immediately should he notice any of these. It is noted he completed his antibiotic course as advised by infectious disease and the local signs of infection have resolved; doxycycline and Augmentin. He started a new antibiotic regimen for his right leg cellulitis and this is stable; to follow-up with his primary care physician as scheduled. To return the wound center in 1 week, or sooner if needed. He was advised to provide the paperwork that he needs completed for work and I be more than happy to process them.
[2018-01-02 08:11] VITALS: BP 143/75; PULSE 77; RESP 18; TEMP 36.2
--- NOTE | 2018-01-02 08:48 | PCM.WC.PN ---
(1) Ulcer of right foot with fat layer exposed Status: Chronic Current Visit: Yes Code(s): L97.512 - Non-pressure chronic ulcer of other part of right foot with fat layer exposed (2) Type 2 diabetes mellitus with diabetic polyneuropathy Status: Chronic Current Visit: Yes Code(s): E11.42 - Type 2 diabetes mellitus with diabetic polyneuropathy (3) PAD (peripheral artery disease) Status: Chronic Current Visit: Yes Code(s): I73.9 - Peripheral vascular disease, unspecified Type of Wound Date of Service: 01/02/18 Chief Complaint: right great toe ulcer History of Wound: This 67-year-old male with multiple comorbidities is following up with the wound care center for continued treatment of wound to the right first toe. Wound care options and surgical options were discussed. He denies fever, chill, nausea, vomiting. He had a partial right second toe amputation for treatment of osteomyelitis on 09/27/2017. This site remains healed. He kept epi fix in place last week as advised and tries to place weight on his heel and his protective surgical shoe. He reports he needs an updated work statement and forms completed in regards to his time off due to his medical condition until Feb 20. Progress of Wound: improving - Physical Exam Vital Signs Temp Pulse Resp BP 97.2 F L 77 18 143/75 H 01/02/18 08:11 01/02/18 08:11 01/02/18 08:11 01/02/18 08:11 General: Alert, Oriented x3, Cooperative Extremities: No cyanosis, Capillary Refill Less than 3 Seconds, No Calf Tenderness, Diminished Peripheral Pulses, Edema Skin: Ulcer/ Wound - No purulence, erythema, streaking, odor, or infection. There is no exposed capsular tone noted, - - Atrophic skin Wound Measurements and Assessment WC - Nurse 1 - General Ulcer Measurement Start: 12/26/17 08:11 Freq: Status: Active Protocol: Activity Type Activity Date Activity User E-Sign Co-Sign Detail Recorded Client Recorded Date Recorded By Document 01/02/18 08:11 DL [id number] 01/02/18 08:16 DL 01/02/18 08:11 Wound Center Nurse 1 [Ulcer Assessment] 3-right hallux -Current Size (cm) - Length 1.3 -Current Size (cm) - Width 0.8 -Current Size (cm) - Depth 0.2 -Total Square Cm 1.04 -Photo Taken No -Exudate Amt Medium (34-66%) -Exudate Type Serosanguineous -Wound Margin Thickened -Granulation Amt Medium (34-66%) -Granulation Quality Pale [place] -Necrosis Amt Medium (34-66%) -Necrotic Tissue Type Adherent Slough -Structure Exposed N/A -Texture (Maxine-wound Skin Appearance) Scarring -Moisture (Maxine-wound Skin Appearance Maceration ) -Color (Maxine-wound Skin Appearance) No Abnormality -Temperature (Maxine-wound Skin No Abnormality Appearance) (Pt Warm) -Tenderness on Palpation (Maxine-wound No Skin Appearance) -Ulcer Cleansing Wound Cleanser -Foul Odor after Cleansing No -Anesthetic Used 4% Lidocaine Solution [Edema Assessment] -Right Calf (cm) 44.5 -Right Ankle (cm) 24.5 WC - Nurse 2 - General Ulcer CM Notes Start: 12/26/17 08:11 Freq: Status: Active Protocol: Activity Type Activity Date Activity User E-Sign Co-Sign Detail Recorded Client Recorded Date Recorded By Document 01/02/18 08:32 [id number] 01/02/18 08:33 01/02/18 08:32 Wound Center Nurse 2 [Procedure/Treatment] 3-right hallux -Time 08:32 -Correct Patient Yes -Correct Side, Site, Position Yes -Correct Procedure Yes -Procedure Performed Yes -Type of Procedure Debridement -Clinical Debridement Subcutaneous -Post Debridement Size (cm) - Length 1.4 -Post Debridement Size (cm) - Width 0.8 -Post Debridement Size (cm) - Depth 0.2 -Total Square Cm 1.12 -Wound/Ulcer Outcome Not Healed -Ulcer Cleansing Rinsed/ Irrigated with Saline -Foul Odor after Cleansing No -Bioengineered Tissue Yes -Type of bioengineered Tissue EPIFIX -Expiration Date 10/14/22 -Product Lot Number [id number] -Percent Used 100 -Saline Lot Number [id number] -Bleeding Controlled with Pressure -Treatment Response Procedure Tolerated Well [See Physician Procedure note for Specifics] Pain Scale: 0-10 Numeric [Pain] -Is Patient Pain Free? Yes Musculoskeletal: No Tenderness to Palpation of Joints or Extremities, Muscle Wasting, - - Limited dorsiflexion of the right hallux loaded Neurological: - - Lack of epicritic sensation light touch noted Psych/Mental Status: Normal Affect, Appropriate Debridement Note Post-Debridement Measurements/Treatment WC - Nurse 2 - General Ulcer CM Notes Start: 12/26/17 08:11 Freq: Status: Active Protocol: Activity Type Activity Date Activity User E-Sign Co-Sign Detail Recorded Client Recorded Date Recorded By Document 12/26/17 08:31 [id number] 12/26/17 08:33 Document 01/02/18 08:32 [id number] 01/02/18 08:33 12/26/17 01/02/18 08:31 08:32 Wound Center Nurse 2 3-right hallux -Time 08:32 08:32 -Correct Patient Yes Yes -Correct Side, Site, Position Yes Yes -Correct Procedure Yes Yes -Procedure Performed Yes Yes -Type of Procedure Debridement Debridement -Clinical Debridement Subcutaneous Subcutaneous -Post Debridement Size (cm) - Length 1.5 1.4 -Post Debridement Size (cm) - Width 0.8 0.8 -Post Debridement Size (cm) - Depth 0.1 0.2 -Total Square Cm 1.20 1.12 -Wound/Ulcer Outcome Not Healed Not Healed -Ulcer Cleansing Rinsed/ Rinsed/ Irrigated with Irrigated with Saline Saline -Foul Odor after Cleansing No No -Bioengineered Tissue Yes Yes -Type of bioengineered Tissue EPIFIX EPIFIX -Expiration Date 07/16/22 10/14/22 -Product Lot Number [id number] -Percent Used 100 100 -Saline Lot Number [id number] -Bleeding Controlled with Pressure Pressure -Treatment Response Procedure Procedure Tolerated Well Tolerated Well Pain Scale: 0-10 Numeric Is Patient Pain Free? Yes Yes Wound debrided: plantar medial hallux Laterality: Right Wound Grade/Stage: grade 1 Type of Debridement: Excisional debridement Anesthesia Used: 5% Lidocaine Gel Depth: in the subcutaneous layer Percentage of wound debrided: 100 Instrument Used: #15 blade Tissue Removed: fibrous, devitalized subcutaneous, biofilm, slough Severity: Fat Layer Exposed Amount of bleeding with debridement: Mild Bleeding Controlled with: Pressure Patient tolerated procedure well Assessment/Plan Active Problems (Last Updated 08/30/17 @ 07:15 by Ranjana Tam) Ulcer of right foot with fat layer exposed (Chronic) Type 2 diabetes mellitus with diabetic polyneuropathy (Chronic) PAD (peripheral artery disease) (Chronic) Assessment: 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 Peripheral vascular disease. Diabetes with neuropathy. Malnutrition suspected. Delayed healing. hallux limitus right Plan: I reviewed and discussed his case and care plan. Subcutaneous debridement was performed as noted in the clinical panel. Epifix was applied for and was approved; this was applied today according to standard protocol after verbal consent was obtained. A wound veil was applied and this was secured with Steri-Strips. A secondary dressing with gauze was applied and he was advised to keep this clean and intact until follow-up visit. He was reassured there are no local signs of infection. He had biphasic and monophasic waveforms in the right lower extremity with an ankle-brachial index of 0.68. The toe brachial index was not calculated due to noncompressible status. Dr. Borges with vascular surgery did evaluate this patient during his last admission. Intervention will be considered if there are any delays in healing or further status change. He understands he is still at continued risk for further limb loss and illness. He was advised to continue to wear the surgical shoe to keep pressure off of this site. He was advised to maintain proper glycemic control and nutritional supplementation to optimize healing. Patient was educated on all signs and symptoms of local and systemic infection and he was instructed to go to the emergency room immediately should he notice any of these. It is noted he completed his antibiotic course as advised by infectious disease and the local signs of infection have resolved; doxycycline and Augmentin. To return the wound center in 1 week, or sooner if needed. 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
--- NOTE | 2018-01-02 08:51 | PN.PCM_ITS ---
(1) Ulcer of right foot with fat layer exposed Status: Chronic Current Visit: Yes Code(s): L97.512 - Non-pressure chronic ulcer of other part of right foot with fat layer exposed (2) Type 2 diabetes mellitus with diabetic polyneuropathy Status: Chronic Current Visit: Yes Code(s): E11.42 - Type 2 diabetes mellitus with diabetic polyneuropathy (3) PAD (peripheral artery disease) Status: Chronic Current Visit: Yes Code(s): I73.9 - Peripheral vascular disease, unspecified Type of Wound Date of Service: 01/02/18 Chief Complaint: right great toe ulcer History of Wound: This 67-year-old male with multiple comorbidities is following up with the wound care center for continued treatment of wound to the right first toe. Wound care options and surgical options were discussed. He denies fever, chill, nausea, vomiting. He had a partial right second toe amputation for treatment of osteomyelitis on 09/27/2017. This site remains healed. He kept epi fix in place last week as advised and tries to place weight on his heel and his protective surgical shoe. He reports he needs an updated work statement and forms completed in regards to his time off due to his medical condition until Feb 20. Progress of Wound: improving - Physical Exam Vital Signs Temp Pulse Resp BP 97.2 F L 77 18 143/75 H 01/02/18 08:11 01/02/18 08:11 01/02/18 08:11 01/02/18 08:11 General: Alert, Oriented x3, Cooperative Extremities: No cyanosis, Capillary Refill Less than 3 Seconds, No Calf Tenderness, Diminished Peripheral Pulses, Edema Skin: Ulcer/ Wound - No purulence, erythema, streaking, odor, or infection. There is no exposed capsular tone noted, - - Atrophic skin Wound Measurements and Assessment WC - Nurse 1 - General Ulcer Measurement Start: 12/26/17 08:11 Freq: Status: Active Protocol: Activity Type Activity Date Activity User E-Sign Co-Sign Detail Recorded Client Recorded Date Recorded By Document 01/02/18 08:11 DL [id number] 01/02/18 08:16 DL 01/02/18 08:11 Wound Center Nurse 1 [Ulcer Assessment] 3-right hallux -Current Size (cm) - Length 1.3 -Current Size (cm) - Width 0.8 -Current Size (cm) - Depth 0.2 -Total Square Cm 1.04 -Photo Taken No -Exudate Amt Medium (34-66%) -Exudate Type Serosanguineous -Wound Margin Thickened -Granulation Amt Medium (34-66%) -Granulation Quality Pale [place] -Necrosis Amt Medium (34-66%) -Necrotic Tissue Type Adherent Slough -Structure Exposed N/A -Texture (Maxine-wound Skin Appearance) Scarring -Moisture (Maxine-wound Skin Appearance Maceration ) -Color (Maxine-wound Skin Appearance) No Abnormality -Temperature (Maxine-wound Skin No Abnormality Appearance) (Pt Warm) -Tenderness on Palpation (Maxine-wound No Skin Appearance) -Ulcer Cleansing Wound Cleanser -Foul Odor after Cleansing No -Anesthetic Used 4% Lidocaine Solution [Edema Assessment] -Right Calf (cm) 44.5 -Right Ankle (cm) 24.5 WC - Nurse 2 - General Ulcer CM Notes Start: 12/26/17 08:11 Freq: Status: Active Protocol: Activity Type Activity Date Activity User E-Sign Co-Sign Detail Recorded Client Recorded Date Recorded By Document 01/02/18 08:32 [id number] 01/02/18 08:33 01/02/18 08:32 Wound Center Nurse 2 [Procedure/Treatment] 3-right hallux -Time 08:32 -Correct Patient Yes -Correct Side, Site, Position Yes -Correct Procedure Yes -Procedure Performed Yes -Type of Procedure Debridement -Clinical Debridement Subcutaneous -Post Debridement Size (cm) - Length 1.4 -Post Debridement Size (cm) - Width 0.8 -Post Debridement Size (cm) - Depth 0.2 -Total Square Cm 1.12 -Wound/Ulcer Outcome Not Healed -Ulcer Cleansing Rinsed/ Irrigated with Saline -Foul Odor after Cleansing No -Bioengineered Tissue Yes -Type of bioengineered Tissue EPIFIX -Expiration Date 10/14/22 -Product Lot Number [id number] -Percent Used 100 -Saline Lot Number [id number] -Bleeding Controlled with Pressure -Treatment Response Procedure Tolerated Well [See Physician Procedure note for Specifics] Pain Scale: 0-10 Numeric [Pain] -Is Patient Pain Free? Yes Musculoskeletal: No Tenderness to Palpation of Joints or Extremities, Muscle Wasting, - - Limited dorsiflexion of the right hallux loaded Neurological: - - Lack of epicritic sensation light touch noted Psych/Mental Status: Normal Affect, Appropriate Debridement Note Post-Debridement Measurements/Treatment WC - Nurse 2 - General Ulcer CM Notes Start: 12/26/17 08:11 Freq: Status: Active Protocol: Activity Type Activity Date Activity User E-Sign Co-Sign Detail Recorded Client Recorded Date Recorded By Document 12/26/17 08:31 [id number] 12/26/17 08:33 Document 01/02/18 08:32 [id number] 01/02/18 08:33 12/26/17 01/02/18 08:31 08:32 Wound Center Nurse 2 3-right hallux -Time 08:32 08:32 -Correct Patient Yes Yes -Correct Side, Site, Position Yes Yes -Correct Procedure Yes Yes -Procedure Performed Yes Yes -Type of Procedure Debridement Debridement -Clinical Debridement Subcutaneous Subcutaneous -Post Debridement Size (cm) - Length 1.5 1.4 -Post Debridement Size (cm) - Width 0.8 0.8 -Post Debridement Size (cm) - Depth 0.1 0.2 -Total Square Cm 1.20 1.12 -Wound/Ulcer Outcome Not Healed Not Healed -Ulcer Cleansing Rinsed/ Rinsed/ Irrigated with Irrigated with Saline Saline -Foul Odor after Cleansing No No -Bioengineered Tissue Yes Yes -Type of bioengineered Tissue EPIFIX EPIFIX -Expiration Date 07/16/22 10/14/22 -Product Lot Number [id number] -Percent Used 100 100 -Saline Lot Number [id number] -Bleeding Controlled with Pressure Pressure -Treatment Response Procedure Procedure Tolerated Well Tolerated Well Pain Scale: 0-10 Numeric Is Patient Pain Free? Yes Yes Wound debrided: plantar medial hallux Laterality: Right Wound Grade/Stage: grade 1 Type of Debridement: Excisional debridement Anesthesia Used: 5% Lidocaine Gel Depth: in the subcutaneous layer Percentage of wound debrided: 100 Instrument Used: #15 blade Tissue Removed: fibrous, devitalized subcutaneous, biofilm, slough Severity: Fat Layer Exposed Amount of bleeding with debridement: Mild Bleeding Controlled with: Pressure Patient tolerated procedure well Assessment/Plan Active Problems (Last Updated 08/30/17 @ 07:15 by Ranjana Tam) Ulcer of right foot with fat layer exposed (Chronic) Type 2 diabetes mellitus with diabetic polyneuropathy (Chronic) PAD (peripheral artery disease) (Chronic) Assessment: 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 Peripheral vascular disease. Diabetes with neuropathy. Malnutrition suspected. Delayed healing. hallux limitus right Plan: I reviewed and discussed his case and care plan. Subcutaneous debridement was performed as noted in the clinical panel. Epifix was applied for and was approved; this was applied today according to standard protocol after verbal consent was obtained. A wound veil was applied and this was secured with Steri-Strips. A secondary dressing with gauze was applied and he was advised to keep this clean and intact until follow-up visit. He was reassured there are no local signs of infection. He had biphasic and monophasic waveforms in the right lower extremity with an ankle-brachial index of 0.68. The toe brachial index was not calculated due to noncompressible status. Dr. Borges with vascular surgery did evaluate this patient during his last admission. Intervention will be considered if there are any delays in healing or further status change. He understands he is still at continued risk for further limb loss and illness. He was advised to continue to wear the surgical shoe to keep pressure off of this site. He was advised to maintain proper glycemic control and nutritional supplementation to optimize healing. Patient was educated on all signs and symptoms of local and systemic infection and he was instructed to go to the emergency room immediately should he notice any of these. It is noted he completed his antibiotic course as advised by infectious disease and the local signs of infection have resolved; doxycycline and Augmentin. To return the wound center in 1 week, or sooner if needed. 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
--- NOTE | 2018-01-09 09:38 | PCM.WC.PN ---
(1) Ulcer of right foot with fat layer exposed Status: Chronic Current Visit: Yes Code(s): L97.512 - Non-pressure chronic ulcer of other part of right foot with fat layer exposed (2) Type 2 diabetes mellitus with diabetic polyneuropathy Status: Chronic Current Visit: Yes Code(s): E11.42 - Type 2 diabetes mellitus with diabetic polyneuropathy (3) PAD (peripheral artery disease) Status: Chronic Current Visit: Yes Code(s): I73.9 - Peripheral vascular disease, unspecified Type of Wound Date of Service: 01/09/18 Chief Complaint: right great toe ulcer History of Wound: This 67-year-old male with multiple comorbidities is following up with the wound care center for continued treatment of wound to the right first toe. Wound care options and surgical options were discussed. He denies fever, chill, nausea, vomiting. He had a partial right second toe amputation for treatment of osteomyelitis on 09/27/2017. This site remains healed. He kept epi fix in place last week as advised and tries to place weight on his heel and his protective surgical shoe. 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 Progress of Wound: improving - Physical Exam Vital Signs Temp Pulse Resp BP 97.2 F L 77 18 143/75 H 01/02/18 08:11 01/02/18 08:11 01/02/18 08:11 01/02/18 08:11 General: Alert, Oriented x3, Cooperative Extremities: No cyanosis, Capillary Refill Less than 3 Seconds, No Calf Tenderness, Diminished Peripheral Pulses, Edema Skin: Ulcer/ Wound - No purulence or erythema or infection or deep tissue exposure. The skin is atrophic Wound Measurements and Assessment WC - Nurse 1 - General Ulcer Measurement Start: 12/26/17 08:11 Freq: Status: Active Protocol: Activity Type Activity Date Activity User E-Sign Co-Sign Detail Recorded Client Recorded Date Recorded By Document 01/09/18 08:13 [id number] 01/09/18 08:24 01/09/18 08:13 Wound Center Nurse 1 [Ulcer Assessment] 3-right hallux -Combined with other wound No -Current Size (cm) - Length 1.0 -Current Size (cm) - Width 0.6 -Current Size (cm) - Depth 0.2 -Total Square Cm 0.60 -Date of Last Picture (Recall this 12/26/17 field) -Photo Taken No -Epithelialization Small 1-33% -Tunneling No -Undermining/Tunneling No -Circular Undermining Yes -Exudate Amt Medium (34-66%) -Exudate Type Serosanguineous -Wound Margin Thickened -Granulation Amt Small (1-33%) -Granulation Quality Pale [place] -Necrosis Amt Medium (34-66%) -Necrotic Tissue Type Adherent Slough -Structure Exposed N/A -Moisture (Maxine-wound Skin Appearance Maceration ) -Color (Maxine-wound Skin Appearance) No Abnormality Assessed -Temperature (Maxine-wound Skin No Abnormality Appearance) (Pt Warm) -Tenderness on Palpation (Maxine-wound No Skin Appearance) -Ulcer Cleansing Wound Cleanser -Foul Odor after Cleansing No -Anesthetic Used 4% Lidocaine Solution [Edema Assessment] -Lower Limb Edema Present Yes -Right Calf (cm) 45.9 -Right Ankle (cm) 29.6 WC - Nurse 2 - General Ulcer CM Notes Start: 12/26/17 08:11 Freq: Status: Active Protocol: Activity Type Activity Date Activity User E-Sign Co-Sign Detail Recorded Client Recorded Date Recorded By Document 01/09/18 08:34 [id number] 01/09/18 08:41 01/09/18 08:34 Wound Center Nurse 2 [Procedure/Treatment] 3-right hallux -Time 08:35 -Correct Patient Yes -Correct Side, Site, Position Yes -Correct Procedure Yes -Procedure Performed Yes -Type of Procedure Debridement -Clinical Debridement Subcutaneous -Post Debridement Size (cm) - Length 1.3 -Post Debridement Size (cm) - Width 0.6 -Post Debridement Size (cm) - Depth 0.2 -Total Square Cm 0.78 -Wound/Ulcer Outcome Not Healed -Ulcer Cleansing Rinsed/ Irrigated with Saline -Foul Odor after Cleansing No -Bioengineered Tissue Yes -Type of bioengineered Tissue EPIFIX -Expiration Date 10/14/22 -Product Lot Number [id number] -Percent Used 100 -Saline Lot Number [id number] -Topical Lidocaine (%) 4 -Bleeding Controlled with Pressure -Treatment Response Procedure Tolerated Well [See Physician Procedure note for Specifics] Pain Scale: 0-10 Numeric [Pain] -Is Patient Pain Free? Yes Musculoskeletal: No Tenderness to Palpation of Joints or Extremities, Muscle Wasting, - - Limited hallux dorsiflexion loaded right Neurological: - - Lack of epicritic sensation light touch right Psych/Mental Status: Normal Affect, Appropriate Debridement Note Post-Debridement Measurements/Treatment WC - Nurse 2 - General Ulcer CM Notes Start: 12/26/17 08:11 Freq: Status: Active Protocol: Activity Type Activity Date Activity User E-Sign Co-Sign Detail Recorded Client Recorded Date Recorded By Document 12/26/17 08:31 [id number] 12/26/17 08:33 JF Document 01/02/18 08:32 JF [id number] 01/02/18 08:33 JF Document 01/09/18 08:34 CS [id number] 01/09/18 08:41 CS 12/26/17 01/02/18 01/09/18 08:31 08:32 08:34 Wound Center Nurse 2 3-right hallux -Time 08:32 08:32 08:35 -Correct Patient Yes Yes Yes -Correct Side, Site, Position Yes Yes Yes -Correct Procedure Yes Yes Yes -Procedure Performed Yes Yes Yes -Type of Procedure Debridement Debridement Debridement -Clinical Debridement Subcutaneous Subcutaneous Subcutaneous -Post Debridement Size (cm) - Length 1.5 1.4 1.3 -Post Debridement Size (cm) - Width 0.8 0.8 0.6 -Post Debridement Size (cm) - Depth 0.1 0.2 0.2 -Total Square Cm 1.20 1.12 0.78 -Wound/Ulcer Outcome Not Healed Not Healed Not Healed -Ulcer Cleansing Rinsed/ Rinsed/ Rinsed/ Irrigated with Irrigated with Irrigated with Saline Saline Saline -Foul Odor after Cleansing No No No -Bioengineered Tissue Yes Yes Yes -Type of bioengineered Tissue EPIFIX EPIFIX EPIFIX -Expiration Date 07/16/22 10/14/22 10/14/22 -Product Lot Number [id number] -Percent Used 100 100 100 -Saline Lot Number [id number] -Topical Lidocaine (%) 4 -Bleeding Controlled with Pressure Pressure Pressure -Treatment Response Procedure Procedure Procedure Tolerated Well Tolerated Well Tolerated Well Pain Scale: 0-10 Numeric Is Patient Pain Free? Yes Yes Yes Wound debrided: plantar hallux Laterality: Right Wound Grade/Stage: grade 1 Type of Debridement: Excisional debridement Anesthesia Used: 5% Lidocaine Gel Depth: in the subcutaneous layer Percentage of wound debrided: 100 Instrument Used: #15 blade Tissue Removed: fibrous, devitalized subcutaneous, biofilm, slough Severity: Fat Layer Exposed Amount of bleeding with debridement: Mild Bleeding Controlled with: Pressure Patient tolerated procedure well Assessment/Plan Active Problems (Last Updated 08/30/17 @ 07:15 by Ranjana Tam) Ulcer of right foot with fat layer exposed (Chronic) Type 2 diabetes mellitus with diabetic polyneuropathy (Chronic) PAD (peripheral artery disease) (Chronic) Assessment: 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 Peripheral vascular disease. Diabetes with neuropathy. Malnutrition suspected. Delayed healing. hallux limitus right Plan: I reviewed and discussed his case and care plan. Subcutaneous debridement was performed as noted in the clinical panel. Epifix was applied for and was approved; this was applied today according to standard protocol after verbal consent was obtained. A wound veil was applied and this was secured with Steri-Strips. A secondary dressing with gauze was applied and he was advised to keep this clean and intact until follow-up visit. He was reassured there are no local signs of infection. He had biphasic and monophasic waveforms in the right lower extremity with an ankle-brachial index of 0.68. The toe brachial index was not calculated due to noncompressible status. Dr. Borges with vascular surgery did evaluate this patient during his last admission. Intervention will be considered if there are any delays in healing or further status change. He understands he is still at continued risk for further limb loss and illness. He was advised to continue to wear the surgical shoe to keep pressure off of this site. He was advised to maintain proper glycemic control and nutritional supplementation to optimize healing. Patient was educated on all signs and symptoms of local and systemic infection and he was instructed to go to the emergency room immediately should he notice any of these. To return the wound center in 2 week, or sooner if needed. The center is closed due to the holiday next week. 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
== END 2018-01-12 23:59 ==
LOC: WC 08:00
PROVIDERS: Family Provider Family Medicine; PCP Family Medicine; Visit Provider Podiatrist
DX: E11.621 Type 2 diabetes mellitus with foot ulcer (principal); E11.42 Type 2 diabetes mellitus with diabetic polyneuropathy; E11.51 Type 2 diabetes mellitus with diabetic peripheral angiopathy without gangrene; L97.512 Non-pressure chronic ulcer of other part of right foot with fat layer exposed; M20.5X1 Other deformities of toe(s) (acquired), right foot
CPT/HCPCS: 15275; Q4131

== ENCOUNTER 2018-02-06 08:00 | Outpatient (RCR) | payer OTHER, SELFPAY ==
[2018-01-13 00:18] VITALS: BP 143/75; PULSE 77; RESP 18; TEMP 36.2
[2018-01-15 08:11] VITALS: BP 142/68; PULSE 79; RESP 16; TEMP 36
--- NOTE | 2018-01-15 09:04 | PCM.WC.HP ---
(1) Diabetes mellitus Status: Chronic Current Visit: Yes Qualifiers: Diabetes mellitus type: type 2 Code(s): E11.9 - Type 2 diabetes mellitus without complications (2) HTN (hypertension) Status: Chronic Current Visit: No Code(s): I10 - Essential (primary) hypertension (3) PAD (peripheral artery disease) Status: Chronic Current Visit: Yes Code(s): I73.9 - Peripheral vascular disease, unspecified (4) Type 2 diabetes mellitus with diabetic polyneuropathy Status: Chronic Current Visit: Yes Code(s): E11.42 - Type 2 diabetes mellitus with diabetic polyneuropathy (5) Ulcer of right foot with fat layer exposed Status: Chronic Current Visit: Yes Code(s): L97.512 - Non-pressure chronic ulcer of other part of right foot with fat layer exposed History of Present Illness Date of Service: 01/15/18 Chief Complaint: right great toe ulcer History of Wound: This 67-year-old male with multiple comorbidities is following up with the wound care center for continued treatment of wound to the right first toe. Wound care options and surgical options were discussed. He denies fever, chill, nausea, vomiting. He had a partial right second toe amputation for treatment of osteomyelitis on 09/27/2017. This site remains healed. He kept epi fix in place last week as advised and tries to place weight on his heel and his protective surgical shoe. 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 The above is noted. The patient presents today and is seen on behalf of Dr. Monge. The patient is known to be diabetic. It appears as though he has been counseled as to optimizing his diabetic control. He has no peripheral arterial occlusive disease, and has been under the care of a local vascular surgeon in regard to his arterial insufficiency. No lower extremity revascularization has been thought necessary. It is noted that the patient has had a partial right second toe amputation for osteomyelitis on September 27, 2017. That site is well-healed. The patient is now under treatment for an ulceration of the right great toe. 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) Hallux limitus (Chronic) PAD (peripheral artery disease) (Chronic) HTN (hypertension) (Chronic) Diabetes mellitus (Chronic) Surgical History: tonsillectomy Allergies/Adverse Reactions: Allergies No Known Allergies Allergy (Verified 09/26/17 10:38) Home Medications: Ambulatory Orders Medication Instructions Recorded Canagliflozin [Invokana] 100 mg PO DAILY 08/21/17 Insulin Glargine,Hum.rec.anlog 160 unit SC DAILY 08/21/17 [Toujeo Solostar] Levothyroxine Sodium [Synthroid] 100 mcg PO DAILY 08/21/17 Pioglitazone [Actos] 45 mg PO DAILY 08/21/17 Sitagliptin Phos/Metformin HCl 1 tab PO BID 08/21/17 [Janumet Xr 50-1,000 mg Tablet] Aspirin [Aspirin, Baby] 81 mg PO DAILY@0800 #30 tab.chew 08/24/17 Multivitamin [Multiple Vitamins] 1 each PO DAILY 09/12/17 Ascorbic Acid [Vitamin C] 500 mg PO DAILY 09/26/17 - Family History Maternal Family History: Family History (Last Updated 08/30/17 @ 07:15 by Ranjana Tam) Father Diabetes Heart disease Hypertension No pertinent history Paternal Family History: Family History (Last Updated 08/30/17 @ 07:15 by Ranjana Tam) Father Diabetes Heart disease Hypertension Diabetes, Heart Disease, Hypertension Smoking Status: Former smoker Review of Systems Constitutional: Denies: Chills, Fever, Weight Change Eyes: Denies: Pain, Vision Change HEENT: Denies: Difficulty Hearing, Difficulty Swallowing, Sinus Congestion Cardiovascular: Denies: Chest Pain, Palpitations Respiratory: Denies: Cough, Shortness of Breath Gastrointestinal: Denies: Diarrhea, Nausea, Vomiting Genitourinary: Denies: Dysuria, Hematuria Endocrine: Denies: Heat/ Cold Intolerance, Polydipsia, Polyuria Hematologic/ Lymphatic: Denies: Easy Bruising, Easy Bleeding - Physical Exam Vital Signs Temp Pulse Resp BP 96.8 F L 79 16 142/68 H 01/15/18 08:11 01/15/18 08:11 01/15/18 08:11 01/15/18 08:11 General: Alert, Oriented x3, Cooperative, No apparent distress, Well developed, Well nourished HEENT: Atraumatic, PERRLA, EOMI, Normocephalic Oral: Moist Mucosa Neck: No JVD Lungs: Normal air movement Abdomen: Non-Distended Extremities: No clubbing, No cyanosis, No edema, No Calf Tenderness, - - A well-healed right second toe amputation site is noted. There is an ulceration on the right great toe, which extends into subcutaneous tissues. There is no sign of infection or cellulitis. Dimensions are documented elsewhere. There is a small amount of bioburden. Skin: No rashes Wound Measurements and Assessment WC - Nurse 1 - General Ulcer Measurement Start: 01/15/18 08:11 Freq: Status: Active Protocol: Activity Type Activity Date Activity User E-Sign Co-Sign Detail Recorded Client Recorded Date Recorded By Document 01/15/18 08:11 PR [id number] 01/15/18 08:18 PR 01/15/18 08:11 Wound Center Nurse 1 [Ulcer Assessment] 3-right hallux -Current Size (cm) - Length 1.1 -Current Size (cm) - Width 0.6 -Current Size (cm) - Depth 0.2 -Total Square Cm 0.66 -Photo Taken No -Epithelialization Small 1-33% -Tunneling No -Undermining/Tunneling No -Circular Undermining No -Exudate Amt Small (1-33%) -Exudate Type Serosanguineous -Wound Margin Fibrotic Scar, Thickened Scar -Granulation Amt Medium (34-66%) -Granulation Quality [place] -Slough/Fibrin Yes -Necrosis Amt Medium (34-66%) -Necrotic Tissue Type Adherent Slough -Structure Exposed N/A -Texture (Maxine-wound Skin Appearance) Assessed Callus -Moisture (Maxine-wound Skin Appearance Assessed ) Dry/Scaly -Color (Maxine-wound Skin Appearance) No Abnormality Assessed -Temperature (Maxine-wound Skin No Abnormality Appearance) (Pt Warm) -Tenderness on Palpation (Maxine-wound No Skin Appearance) -Ulcer Cleansing Rinsed/ Irrigated with Saline -Foul Odor after Cleansing No -Anesthetic Used 4% Lidocaine Solution [Edema Assessment] -Right Calf (cm) 45 -Right Ankle (cm) 27 WC - Nurse 2 - General Ulcer CM Notes Start: 01/15/18 08:11 Freq: Status: Active Protocol: Activity Type Activity Date Activity User E-Sign Co-Sign Detail Recorded Client Recorded Date Recorded By Document 01/15/18 09:00 [id number] 01/15/18 09:03 01/15/18 09:00 Wound Center Nurse 2 [Procedure/Treatment] 3-right hallux -Time 09:01 -Correct Patient Yes -Correct Side, Site, Position Yes -Correct Procedure Yes -Procedure Performed Yes -Type of Procedure Debridement -Clinical Debridement Subcutaneous -Post Debridement Size (cm) - Length 1.7 -Post Debridement Size (cm) - Width 0.3 -Post Debridement Size (cm) - Depth 0.2 -Total Square Cm 0.51 -Wound/Ulcer Outcome Not Healed -Ulcer Cleansing Rinsed/ Irrigated with Saline -Foul Odor after Cleansing No -Bioengineered Tissue Yes -Type of bioengineered Tissue EPIFIX -Expiration Date 09/13/22 -Product Lot Number [id number] -Percent Used 100 -Saline Lot Number [id number] -Injectable Lidocaine (%) 4 -Injectable Lidocaine w/ Epi (%) 5 -Bleeding Controlled with NA -Treatment Response Procedure Tolerated Well [See Physician Procedure note for Specifics] Pain Scale: 0-10 Numeric [Pain] -Is Patient Pain Free? Yes Musculoskeletal: No Muscle Wasting Neurological: Cranial nerves II-XII grossly intact, Neuro grossly intact Psych/Mental Status: Normal Affect, Appropriate, Alert and oriented to time, place, person, mood and affect Debridement Note Post-Debridement Measurements/Treatment WC - Nurse 2 - General Ulcer CM Notes Start: 01/15/18 08:11 Freq: Status: Active Protocol: Activity Type Activity Date Activity User E-Sign Co-Sign Detail Recorded Client Recorded Date Recorded By Document 01/15/18 09:00 JS [id number] 01/15/18 09:03 01/15/18 09:00 Wound Center Nurse 2 3-right hallux -Time 09:01 -Correct Patient Yes -Correct Side, Site, Position Yes -Correct Procedure Yes -Procedure Performed Yes -Type of Procedure Debridement -Clinical Debridement Subcutaneous -Post Debridement Size (cm) - Length 1.7 -Post Debridement Size (cm) - Width 0.3 -Post Debridement Size (cm) - Depth 0.2 -Total Square Cm 0.51 -Wound/Ulcer Outcome Not Healed -Ulcer Cleansing Rinsed/ Irrigated with Saline -Foul Odor after Cleansing No -Bioengineered Tissue Yes -Type of bioengineered Tissue EPIFIX -Expiration Date 09/13/22 -Product Lot Number [id number] -Percent Used 100 -Saline Lot Number [id number] -Injectable Lidocaine (%) 4 -Injectable Lidocaine w/ Epi (%) 5 -Bleeding Controlled with NA -Treatment Response Procedure Tolerated Well Pain Scale: 0-10 Numeric Is Patient Pain Free? Yes Laterality: Right - Great toe Type of Debridement: Excisional debridement Anesthesia Used: 4% Lidocaine Solution Depth: Down to and including healthy tissue, in the subcutaneous layer Percentage of wound debrided: 100 Instrument Used: 5mm curette Severity: Fat Layer Exposed Amount of bleeding with debridement: Mild Bleeding Controlled with: Compression and gauze Patient tolerated procedure well Following a standard excisional debridement of the ulceration on the right great toe, an 18 mm EpiFix was applied to the ulceration. This was covered with wound veil and gauze, and anchored in place with Steri-Strips. The procedure was well-tolerated. Assessment/Plan Active Problems (Last Updated 08/30/17 @ 07:15 by Ranjana Tam) Ulcer of right foot with fat layer exposed (Chronic) Type 2 diabetes mellitus with diabetic polyneuropathy (Chronic) PAD (peripheral artery disease) (Chronic) Diabetes mellitus (Chronic) Assessment: 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 Peripheral vascular disease. Diabetes with neuropathy. Malnutrition suspected. Delayed healing. hallux limitus right Plan: Current measures are to be continued. Patient has been advised to optimize his diabetes control. Good nutrition has been recommended. Offloading measures are to be continued. Continue to wear his surgical shoe on the right foot. Patient is to leave his EpiFix allograft and dressing in place (#5) until his visit next week with Dr. Monge. I reviewed and discussed his case and care plan. He was reassured there are no local signs of infection. He had biphasic and monophasic waveforms in the right lower extremity with an ankle-brachial index of 0.68. The toe brachial index was not calculated due to noncompressible status. Dr. Borges with vascular surgery did evaluate this patient during his last admission. Intervention will be considered if there are any delays in healing or further status change. He understands he is still at continued risk for further limb loss and illness. He was advised to continue to wear the surgical shoe to keep pressure off of this site. He was advised to maintain proper glycemic control and nutritional supplementation to optimize healing. Patient was educated on all signs and symptoms of local and systemic infection and he was instructed to go to the emergency room immediately should he notice any of these.
--- NOTE | 2018-01-15 09:12 | HP.PCM_ITS ---
(1) Diabetes mellitus Status: Chronic Current Visit: Yes Qualifiers: Diabetes mellitus type: type 2 Code(s): E11.9 - Type 2 diabetes mellitus without complications (2) HTN (hypertension) Status: Chronic Current Visit: No Code(s): I10 - Essential (primary) hypertension (3) PAD (peripheral artery disease) Status: Chronic Current Visit: Yes Code(s): I73.9 - Peripheral vascular disease, unspecified (4) Type 2 diabetes mellitus with diabetic polyneuropathy Status: Chronic Current Visit: Yes Code(s): E11.42 - Type 2 diabetes mellitus with diabetic polyneuropathy (5) Ulcer of right foot with fat layer exposed Status: Chronic Current Visit: Yes Code(s): L97.512 - Non-pressure chronic ulcer of other part of right foot with fat layer exposed History of Present Illness Date of Service: 01/15/18 Chief Complaint: right great toe ulcer History of Wound: This 67-year-old male with multiple comorbidities is following up with the wound care center for continued treatment of wound to the right first toe. Wound care options and surgical options were discussed. He denies fever, chill, nausea, vomiting. He had a partial right second toe amputation for treatment of osteomyelitis on 09/27/2017. This site remains healed. He kept epi fix in place last week as advised and tries to place weight on his heel and his protective surgical shoe. 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 The above is noted. The patient presents today and is seen on behalf of Dr. Monge. The patient is known to be diabetic. It appears as though he has been counseled as to optimizing his diabetic control. He has no peripheral arterial occlusive disease, and has been under the care of a local vascular surgeon in regard to his arterial insufficiency. No lower extremity revascularization has been thought necessary. It is noted that the patient has had a partial right second toe amputation for osteomyelitis on September 27, 2017. That site is well-healed. The patient is now under treatment for an ulceration of the right great toe. 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) Hallux limitus (Chronic) PAD (peripheral artery disease) (Chronic) HTN (hypertension) (Chronic) Diabetes mellitus (Chronic) Surgical History: tonsillectomy Allergies/Adverse Reactions: Allergies No Known Allergies Allergy (Verified 09/26/17 10:38) Home Medications: Ambulatory Orders Medication Instructions Recorded Canagliflozin [Invokana] 100 mg PO DAILY 08/21/17 Insulin Glargine,Hum.rec.anlog 160 unit SC DAILY 08/21/17 [Toujeo Solostar] Levothyroxine Sodium [Synthroid] 100 mcg PO DAILY 08/21/17 Pioglitazone [Actos] 45 mg PO DAILY 08/21/17 Sitagliptin Phos/Metformin HCl 1 tab PO BID 08/21/17 [Janumet Xr 50-1,000 mg Tablet] Aspirin [Aspirin, Baby] 81 mg PO DAILY@0800 #30 tab.chew 08/24/17 Multivitamin [Multiple Vitamins] 1 each PO DAILY 09/12/17 Ascorbic Acid [Vitamin C] 500 mg PO DAILY 09/26/17 - Family History Maternal Family History: Family History (Last Updated 08/30/17 @ 07:15 by Ranjana Tam) Father Diabetes Heart disease Hypertension No pertinent history Paternal Family History: Family History (Last Updated 08/30/17 @ 07:15 by Ranjana Tam) Father Diabetes Heart disease Hypertension Diabetes, Heart Disease, Hypertension Smoking Status: Former smoker Review of Systems Constitutional: Denies: Chills, Fever, Weight Change Eyes: Denies: Pain, Vision Change HEENT: Denies: Difficulty Hearing, Difficulty Swallowing, Sinus Congestion Cardiovascular: Denies: Chest Pain, Palpitations Respiratory: Denies: Cough, Shortness of Breath Gastrointestinal: Denies: Diarrhea, Nausea, Vomiting Genitourinary: Denies: Dysuria, Hematuria Endocrine: Denies: Heat/ Cold Intolerance, Polydipsia, Polyuria Hematologic/ Lymphatic: Denies: Easy Bruising, Easy Bleeding - Physical Exam Vital Signs Temp Pulse Resp BP 96.8 F L 79 16 142/68 H 01/15/18 08:11 01/15/18 08:11 01/15/18 08:11 01/15/18 08:11 General: Alert, Oriented x3, Cooperative, No apparent distress, Well developed, Well nourished HEENT: Atraumatic, PERRLA, EOMI, Normocephalic Oral: Moist Mucosa Neck: No JVD Lungs: Normal air movement Abdomen: Non-Distended Extremities: No clubbing, No cyanosis, No edema, No Calf Tenderness, - - A well- healed right second toe amputation site is noted. There is an ulceration on the right great toe, which extends into subcutaneous tissues. There is no sign of infection or cellulitis. Dimensions are documented elsewhere. There is a small amount of bioburden. Skin: No rashes Wound Measurements and Assessment WC - Nurse 1 - General Ulcer Measurement Start: 01/15/18 08:11 Freq: Status: Active Protocol: Activity Type Activity Date Activity User E-Sign Co-Sign Detail Recorded Client Recorded Date Recorded By Document 01/15/18 08:11 SD [id number] 01/15/18 08:18 SD 01/15/18 08:11 Wound Center Nurse 1 [Ulcer Assessment] 3-right hallux -Current Size (cm) - Length 1.1 -Current Size (cm) - Width 0.6 -Current Size (cm) - Depth 0.2 -Total Square Cm 0.66 -Photo Taken No -Epithelialization Small 1-33% -Tunneling No -Undermining/Tunneling No -Circular Undermining No -Exudate Amt Small (1-33%) -Exudate Type Serosanguineous -Wound Margin Fibrotic Scar, Thickened Scar -Granulation Amt Medium (34-66%) -Granulation Quality [place] -Slough/Fibrin Yes -Necrosis Amt Medium (34-66%) -Necrotic Tissue Type Adherent Slough -Structure Exposed N/A -Texture (Maxine-wound Skin Appearance) Assessed Callus -Moisture (Maxine-wound Skin Appearance Assessed ) Dry/Scaly -Color (Maxine-wound Skin Appearance) No Abnormality Assessed -Temperature (Maxine-wound Skin No Abnormality Appearance) (Pt Warm) -Tenderness on Palpation (Maxine-wound No Skin Appearance) -Ulcer Cleansing Rinsed/ Irrigated with Saline -Foul Odor after Cleansing No -Anesthetic Used 4% Lidocaine Solution [Edema Assessment] -Right Calf (cm) 45 -Right Ankle (cm) 27 WC - Nurse 2 - General Ulcer CM Notes Start: 01/15/18 08:11 Freq: Status: Active Protocol: Activity Type Activity Date Activity User E-Sign Co-Sign Detail Recorded Client Recorded Date Recorded By Document 01/15/18 09:00 [id number] 01/15/18 09:03 01/15/18 09:00 Wound Center Nurse 2 [Procedure/Treatment] 3-right hallux -Time 09:01 -Correct Patient Yes -Correct Side, Site, Position Yes -Correct Procedure Yes -Procedure Performed Yes -Type of Procedure Debridement -Clinical Debridement Subcutaneous -Post Debridement Size (cm) - Length 1.7 -Post Debridement Size (cm) - Width 0.3 -Post Debridement Size (cm) - Depth 0.2 -Total Square Cm 0.51 -Wound/Ulcer Outcome Not Healed -Ulcer Cleansing Rinsed/ Irrigated with Saline -Foul Odor after Cleansing No -Bioengineered Tissue Yes -Type of bioengineered Tissue EPIFIX -Expiration Date 09/13/22 -Product Lot Number [id number] -Percent Used 100 -Saline Lot Number [id number] -Injectable Lidocaine (%) 4 -Injectable Lidocaine w/ Epi (%) 5 -Bleeding Controlled with NA -Treatment Response Procedure Tolerated Well [See Physician Procedure note for Specifics] Pain Scale: 0-10 Numeric [Pain] -Is Patient Pain Free? Yes Musculoskeletal: No Muscle Wasting Neurological: Cranial nerves II-XII grossly intact, Neuro grossly intact Psych/Mental Status: Normal Affect, Appropriate, Alert and oriented to time, place, person, mood and affect Debridement Note Post-Debridement Measurements/Treatment WC - Nurse 2 - General Ulcer CM Notes Start: 01/15/18 08:11 Freq: Status: Active Protocol: Activity Type Activity Date Activity User E-Sign Co-Sign Detail Recorded Client Recorded Date Recorded By Document 01/15/18 09:00 JS [id number] 01/15/18 09:03 01/15/18 09:00 Wound Center Nurse 2 3-right hallux -Time 09:01 -Correct Patient Yes -Correct Side, Site, Position Yes -Correct Procedure Yes -Procedure Performed Yes -Type of Procedure Debridement -Clinical Debridement Subcutaneous -Post Debridement Size (cm) - Length 1.7 -Post Debridement Size (cm) - Width 0.3 -Post Debridement Size (cm) - Depth 0.2 -Total Square Cm 0.51 -Wound/Ulcer Outcome Not Healed -Ulcer Cleansing Rinsed/ Irrigated with Saline -Foul Odor after Cleansing No -Bioengineered Tissue Yes -Type of bioengineered Tissue EPIFIX -Expiration Date 09/13/22 -Product Lot Number [id number] -Percent Used 100 -Saline Lot Number [id number] -Injectable Lidocaine (%) 4 -Injectable Lidocaine w/ Epi (%) 5 -Bleeding Controlled with NA -Treatment Response Procedure Tolerated Well Pain Scale: 0-10 Numeric Is Patient Pain Free? Yes Laterality: Right - Great toe Type of Debridement: Excisional debridement Anesthesia Used: 4% Lidocaine Solution Depth: Down to and including healthy tissue, in the subcutaneous layer Percentage of wound debrided: 100 Instrument Used: 5mm curette Severity: Fat Layer Exposed Amount of bleeding with debridement: Mild Bleeding Controlled with: Compression and gauze Patient tolerated procedure well Following a standard excisional debridement of the ulceration on the right great toe, an 18 mm EpiFix was applied to the ulceration. This was covered with wound veil and gauze, and anchored in place with Steri-Strips. The procedure was well-tolerated. Assessment/Plan Active Problems (Last Updated 08/30/17 @ 07:15 by Ranjana Tam) Ulcer of right foot with fat layer exposed (Chronic) Type 2 diabetes mellitus with diabetic polyneuropathy (Chronic) PAD (peripheral artery disease) (Chronic) Diabetes mellitus (Chronic) Assessment: 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 Peripheral vascular disease. Diabetes with neuropathy. Malnutrition suspected. Delayed healing. hallux limitus right Plan: Current measures are to be continued. Patient has been advised to optimize his diabetes control. Good nutrition has been recommended. Offloading measures are to be continued. Continue to wear his surgical shoe on the right foot. Patient is to leave his EpiFix allograft and dressing in place (#5) until his visit next week with Dr. Monge. I reviewed and discussed his case and care plan. He was reassured there are no local signs of infection. He had biphasic and monophasic waveforms in the right lower extremity with an ankle-brachial index of 0.68. The toe brachial index was not calculated due to noncompressible status. Dr. Borges with vascular surgery did evaluate this patient during his last admission. Intervention will be considered if there are any delays in healing or further status change. He understands he is still at continued risk for further limb loss and illness. He was advised to continue to wear the surgical shoe to keep pressure off of this site. He was advised to maintain proper glycemic control and nutritional supplementation to optimize healing. Patient was educated on all signs and symptoms of local and systemic infection and he was instructed to go to the emergency room immediately should he notice any of these.
[2018-01-18 13:17] VITALS: BP 139/93; PULSE 59; RESP 16; TEMP 37.1
--- NOTE | 2018-01-18 13:21 | NURSING ---
HBO charting done in error.
[2018-01-23 08:15] VITALS: BP 162/77; PULSE 79; RESP 16; TEMP 35.6
--- NOTE | 2018-01-23 09:07 | PCM.WC.PN ---
(1) Ulcer of right foot with fat layer exposed Status: Chronic Current Visit: Yes Code(s): L97.512 - Non-pressure chronic ulcer of other part of right foot with fat layer exposed (2) Type 2 diabetes mellitus with diabetic polyneuropathy Status: Chronic Current Visit: Yes Code(s): E11.42 - Type 2 diabetes mellitus with diabetic polyneuropathy (3) Hallux limitus Status: Chronic Current Visit: No Qualifiers: Laterality: right Qualified Code(s): M20.5X1 - Other deformities of toe(s) (acquired), right foot Code(s): M20.5X9 - Other deformities of toe(s) (acquired), unspecified foot (4) PAD (peripheral artery disease) Status: Chronic Current Visit: Yes Code(s): I73.9 - Peripheral vascular disease, unspecified Type of Wound Date of Service: 01/23/18 Chief Complaint: right great toe ulcer History of Wound: This 67-year-old male with multiple comorbidities is following up with the wound care center for continued treatment of wound to the right first toe. Wound care options and surgical options were discussed. He denies fever, chill, nausea, vomiting. HE denies pain. Progress of Wound: improving - Physical Exam Vital Signs Temp Pulse Resp BP 96.0 F L 79 16 162/77 H 01/23/18 08:15 01/23/18 08:15 01/23/18 08:15 01/23/18 08:15 General: Alert, Oriented x3, Cooperative Extremities: No cyanosis, Capillary Refill Less than 3 Seconds, No Calf Tenderness - negative andre and contreras bilateral, Diminished Peripheral Pulses, Edema - mild, - - decreased loaded first metatarsal phalangeal joint , right Skin: Ulcer/ Wound - no purulence, no erythema, no streaking, no crepitus, no acute infection noted right Wound Measurements and Assessment WC - Nurse 1 - General Ulcer Measurement Start: 01/15/18 08:11 Freq: Status: Active Protocol: Activity Type Activity Date Activity User E-Sign Co-Sign Detail Recorded Client Recorded Date Recorded By Document 01/23/18 08:15 [id number] 01/23/18 08:19 01/23/18 08:15 Wound Center Nurse 1 [Ulcer Assessment] 3-right hallux -Combined with other wound No -Current Size (cm) - Length 0.9 -Current Size (cm) - Width 0.4 -Current Size (cm) - Depth 0.3 -Total Square Cm 0.36 -Photo Taken No -Epithelialization None Present -Tunneling No -Undermining/Tunneling No -Circular Undermining No -Exudate Amt Medium (34-66%) -Exudate Type Serosanguineous -Wound Margin Distinct, Outline Attached -Granulation Amt Medium (34-66%) -Granulation Quality Red -Necrosis Amt None Present (0 %) -Necrotic Tissue Type Adherent Slough -Structure Exposed None/Limited to Skin Breakdown -Texture (Maxine-wound Skin Appearance) Assessed Callus -Moisture (Maxine-wound Skin Appearance Assessed ) Maceration -Color (Maxine-wound Skin Appearance) No Abnormality Assessed -Temperature (Maxine-wound Skin No Abnormality Appearance) (Pt Warm) -Tenderness on Palpation (Maxine-wound No Skin Appearance) -Ulcer Cleansing Wound Cleanser -Foul Odor after Cleansing No -Anesthetic Used 4% Lidocaine Solution [Edema Assessment] -Lower Limb Edema Present No WC - Nurse 2 - General Ulcer CM Notes Start: 01/15/18 08:11 Freq: Status: Active Protocol: Activity Type Activity Date Activity User E-Sign Co-Sign Detail Recorded Client Recorded Date Recorded By Document 01/23/18 08:32 [id number] 01/23/18 08:34 01/23/18 08:32 Wound Center Nurse 2 [Procedure/Treatment] 3-right hallux -Time 08:32 -Correct Patient Yes -Correct Side, Site, Position Yes -Correct Procedure Yes -Procedure Performed Yes -Type of Procedure Debridement -Clinical Debridement Subcutaneous -Post Debridement Size (cm) - Length 1.0 -Post Debridement Size (cm) - Width 0.5 -Post Debridement Size (cm) - Depth 0.3 -Total Square Cm 0.50 -Wound/Ulcer Outcome Not Healed -Ulcer Cleansing Rinsed/ Irrigated with Saline -Foul Odor after Cleansing No -Bioengineered Tissue Yes -Type of bioengineered Tissue EPIFIX -Expiration Date 10/14/22 -Product Lot Number [id number] -Percent Used 100 -Saline Lot Number [id number] -Topical Lidocaine (%) 5 -Bleeding Controlled with Pressure -Treatment Response Procedure Tolerated Well [See Physician Procedure note for Specifics] Pain Scale: 0-10 Numeric [Pain] -Is Patient Pain Free? Yes Musculoskeletal: No Tenderness to Palpation of Joints or Extremities, Muscle Wasting Neurological: - - lack of epicritic sensation via light touch noted Psych/Mental Status: Normal Affect, Appropriate Debridement Note Post-Debridement Measurements/Treatment WC - Nurse 2 - General Ulcer CM Notes Start: 01/15/18 08:11 Freq: Status: Active Protocol: Activity Type Activity Date Activity User E-Sign Co-Sign Detail Recorded Client Recorded Date Recorded By Document 01/15/18 09:00 JS [id number] 01/15/18 09:03 JS Document 01/23/18 08:32 TM [id number] 01/23/18 08:34 TM 01/15/18 01/23/18 09:00 08:32 Wound Center Nurse 2 3-right hallux -Time 09:01 08:32 -Correct Patient Yes Yes -Correct Side, Site, Position Yes Yes -Correct Procedure Yes Yes -Procedure Performed Yes Yes -Type of Procedure Debridement Debridement -Clinical Debridement Subcutaneous Subcutaneous -Post Debridement Size (cm) - Length 1.7 1.0 -Post Debridement Size (cm) - Width 0.3 0.5 -Post Debridement Size (cm) - Depth 0.2 0.3 -Total Square Cm 0.51 0.50 -Wound/Ulcer Outcome Not Healed Not Healed -Ulcer Cleansing Rinsed/ Rinsed/ Irrigated with Irrigated with Saline Saline -Foul Odor after Cleansing No No -Bioengineered Tissue Yes Yes -Type of bioengineered Tissue EPIFIX EPIFIX -Expiration Date 09/13/22 10/14/22 -Product Lot Number [id number] -Percent Used 100 100 -Saline Lot Number [id number] -Topical Lidocaine (%) 5 -Injectable Lidocaine (%) 4 -Injectable Lidocaine w/ Epi (%) 5 -Bleeding Controlled with NA Pressure -Treatment Response Procedure Procedure Tolerated Well Tolerated Well Pain Scale: 0-10 Numeric Is Patient Pain Free? Yes Yes Wound debrided: plantar hallux Laterality: Right Wound Grade/Stage: grade 1 Type of Debridement: Excisional debridement Anesthesia Used: 5% Lidocaine Gel Depth: in the subcutaneous layer, to muscle Instrument Used: #15 blade Tissue Removed: fibrous, devitalized subcutaneous, biofilm, slough Severity: Fat Layer Exposed Amount of bleeding with debridement: Mild Bleeding Controlled with: Pressure Patient tolerated procedure well Assessment/Plan Active Problems (Last Updated 08/30/17 @ 07:15 by Ranjana Tam) Ulcer of right foot with fat layer exposed (Chronic) Type 2 diabetes mellitus with diabetic polyneuropathy (Chronic) PAD (peripheral artery disease) (Chronic) Diabetes mellitus (Chronic) Assessment: 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 Peripheral vascular disease. Diabetes with neuropathy. Malnutrition suspected. Delayed healing. hallux limitus right Plan: Current measures are to be continued. Patient has been advised to optimize his diabetes control. Good nutrition has been recommended. Offloading measures are to be continued. Continue to wear his surgical shoe on the right foot. Patient is to leave his EpiFix allograft and dressing in place until his visit next week. I reviewed and discussed his case and care plan. He was reassured there are no local signs of infection. He had biphasic and monophasic waveforms in the right lower extremity with an ankle-brachial index of 0.68. The toe brachial index was not calculated due to noncompressible status. Dr. Borges with vascular surgery did evaluate this patient during his last admission. Intervention will be considered if there are any delays in healing or further status change. He understands he is still at continued risk for further limb loss and illness. He was advised to continue to wear the surgical shoe to keep pressure off of this site. He was advised to maintain proper glycemic control and nutritional supplementation to optimize healing. Patient was educated on all signs and symptoms of local and systemic infection and he was instructed to go to the emergency room immediately should he notice any of these.
--- NOTE | 2018-01-23 09:14 | PN.PCM_ITS ---
(1) Ulcer of right foot with fat layer exposed Status: Chronic Current Visit: Yes Code(s): L97.512 - Non-pressure chronic ulcer of other part of right foot with fat layer exposed (2) Type 2 diabetes mellitus with diabetic polyneuropathy Status: Chronic Current Visit: Yes Code(s): E11.42 - Type 2 diabetes mellitus with diabetic polyneuropathy (3) Hallux limitus Status: Chronic Current Visit: No Qualifiers: Laterality: right Qualified Code(s): M20.5X1 - Other deformities of toe(s) (acquired), right foot Code(s): M20.5X9 - Other deformities of toe(s) (acquired), unspecified foot (4) PAD (peripheral artery disease) Status: Chronic Current Visit: Yes Code(s): I73.9 - Peripheral vascular disease, unspecified Type of Wound Date of Service: 01/23/18 Chief Complaint: right great toe ulcer History of Wound: This 67-year-old male with multiple comorbidities is following up with the wound care center for continued treatment of wound to the right first toe. Wound care options and surgical options were discussed. He denies fever, chill, nausea, vomiting. HE denies pain. Progress of Wound: improving - Physical Exam Vital Signs Temp Pulse Resp BP 96.0 F L 79 16 162/77 H 01/23/18 08:15 01/23/18 08:15 01/23/18 08:15 01/23/18 08:15 General: Alert, Oriented x3, Cooperative Extremities: No cyanosis, Capillary Refill Less than 3 Seconds, No Calf Tenderness - negative andre and contreras bilateral, Diminished Peripheral Pulses, Edema - mild, - - decreased loaded first metatarsal phalangeal joint , right Skin: Ulcer/ Wound - no purulence, no erythema, no streaking, no crepitus, no acute infection noted right Wound Measurements and Assessment WC - Nurse 1 - General Ulcer Measurement Start: 01/15/18 08:11 Freq: Status: Active Protocol: Activity Type Activity Date Activity User E-Sign Co-Sign Detail Recorded Client Recorded Date Recorded By Document 01/23/18 08:15 [id number] 01/23/18 08:19 01/23/18 08:15 Wound Center Nurse 1 [Ulcer Assessment] 3-right hallux -Combined with other wound No -Current Size (cm) - Length 0.9 -Current Size (cm) - Width 0.4 -Current Size (cm) - Depth 0.3 -Total Square Cm 0.36 -Photo Taken No -Epithelialization None Present -Tunneling No -Undermining/Tunneling No -Circular Undermining No -Exudate Amt Medium (34-66%) -Exudate Type Serosanguineous -Wound Margin Distinct, Outline Attached -Granulation Amt Medium (34-66%) -Granulation Quality Red -Necrosis Amt None Present (0 %) -Necrotic Tissue Type Adherent Slough -Structure Exposed None/Limited to Skin Breakdown -Texture (Maxine-wound Skin Appearance) Assessed Callus -Moisture (Maxine-wound Skin Appearance Assessed ) Maceration -Color (Maxine-wound Skin Appearance) No Abnormality Assessed -Temperature (Maxine-wound Skin No Abnormality Appearance) (Pt Warm) -Tenderness on Palpation (Maxine-wound No Skin Appearance) -Ulcer Cleansing Wound Cleanser -Foul Odor after Cleansing No -Anesthetic Used 4% Lidocaine Solution [Edema Assessment] -Lower Limb Edema Present No WC - Nurse 2 - General Ulcer CM Notes Start: 01/15/18 08:11 Freq: Status: Active Protocol: Activity Type Activity Date Activity User E-Sign Co-Sign Detail Recorded Client Recorded Date Recorded By Document 01/23/18 08:32 [id number] 01/23/18 08:34 01/23/18 08:32 Wound Center Nurse 2 [Procedure/Treatment] 3-right hallux -Time 08:32 -Correct Patient Yes -Correct Side, Site, Position Yes -Correct Procedure Yes -Procedure Performed Yes -Type of Procedure Debridement -Clinical Debridement Subcutaneous -Post Debridement Size (cm) - Length 1.0 -Post Debridement Size (cm) - Width 0.5 -Post Debridement Size (cm) - Depth 0.3 -Total Square Cm 0.50 -Wound/Ulcer Outcome Not Healed -Ulcer Cleansing Rinsed/ Irrigated with Saline -Foul Odor after Cleansing No -Bioengineered Tissue Yes -Type of bioengineered Tissue EPIFIX -Expiration Date 10/14/22 -Product Lot Number [id number] -Percent Used 100 -Saline Lot Number [id number] -Topical Lidocaine (%) 5 -Bleeding Controlled with Pressure -Treatment Response Procedure Tolerated Well [See Physician Procedure note for Specifics] Pain Scale: 0-10 Numeric [Pain] -Is Patient Pain Free? Yes Musculoskeletal: No Tenderness to Palpation of Joints or Extremities, Muscle Wasting Neurological: - - lack of epicritic sensation via light touch noted Psych/Mental Status: Normal Affect, Appropriate Debridement Note Post-Debridement Measurements/Treatment WC - Nurse 2 - General Ulcer CM Notes Start: 01/15/18 08:11 Freq: Status: Active Protocol: Activity Type Activity Date Activity User E-Sign Co-Sign Detail Recorded Client Recorded Date Recorded By Document 01/15/18 09:00 JS [id number] 01/15/18 09:03 JS Document 01/23/18 08:32 TM [id number] 01/23/18 08:34 TM 01/15/18 01/23/18 09:00 08:32 Wound Center Nurse 2 3-right hallux -Time 09:01 08:32 -Correct Patient Yes Yes -Correct Side, Site, Position Yes Yes -Correct Procedure Yes Yes -Procedure Performed Yes Yes -Type of Procedure Debridement Debridement -Clinical Debridement Subcutaneous Subcutaneous -Post Debridement Size (cm) - Length 1.7 1.0 -Post Debridement Size (cm) - Width 0.3 0.5 -Post Debridement Size (cm) - Depth 0.2 0.3 -Total Square Cm 0.51 0.50 -Wound/Ulcer Outcome Not Healed Not Healed -Ulcer Cleansing Rinsed/ Rinsed/ Irrigated with Irrigated with Saline Saline -Foul Odor after Cleansing No No -Bioengineered Tissue Yes Yes -Type of bioengineered Tissue EPIFIX EPIFIX -Expiration Date 09/13/22 10/14/22 -Product Lot Number [id number] -Percent Used 100 100 -Saline Lot Number [id number] -Topical Lidocaine (%) 5 -Injectable Lidocaine (%) 4 -Injectable Lidocaine w/ Epi (%) 5 -Bleeding Controlled with NA Pressure -Treatment Response Procedure Procedure Tolerated Well Tolerated Well Pain Scale: 0-10 Numeric Is Patient Pain Free? Yes Yes Wound debrided: plantar hallux Laterality: Right Wound Grade/Stage: grade 1 Type of Debridement: Excisional debridement Anesthesia Used: 5% Lidocaine Gel Depth: in the subcutaneous layer, to muscle Instrument Used: #15 blade Tissue Removed: fibrous, devitalized subcutaneous, biofilm, slough Severity: Fat Layer Exposed Amount of bleeding with debridement: Mild Bleeding Controlled with: Pressure Patient tolerated procedure well Assessment/Plan Active Problems (Last Updated 08/30/17 @ 07:15 by Ranjana Tam) Ulcer of right foot with fat layer exposed (Chronic) Type 2 diabetes mellitus with diabetic polyneuropathy (Chronic) PAD (peripheral artery disease) (Chronic) Diabetes mellitus (Chronic) Assessment: 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 Peripheral vascular disease. Diabetes with neuropathy. Malnutrition suspected. Delayed healing. hallux limitus right Plan: Current measures are to be continued. Patient has been advised to optimize his diabetes control. Good nutrition has been recommended. Offloading measures are to be continued. Continue to wear his surgical shoe on the right foot. Patient is to leave his EpiFix allograft and dressing in place until his visit next week. I reviewed and discussed his case and care plan. He was reassured there are no local signs of infection. He had biphasic and monophasic waveforms in the right lower extremity with an ankle-brachial index of 0.68. The toe brachial index was not calculated due to noncompressible status. Dr. Borges with vascular surgery did evaluate this patient during his last admission. Intervention will be considered if there are any delays in healing or further status change. He understands he is still at continued risk for further limb loss and illness. He was advised to continue to wear the surgical shoe to keep pressure off of this site. He was advised to maintain proper glycemic control and nutritional supplementation to optimize healing. Patient was educated on all signs and symptoms of local and systemic infection and he was instructed to go to the emergency room immediately should he notice any of these.
[2018-01-30 08:11] VITALS: BP 156/75; PULSE 76; RESP 18; TEMP 35.5
--- NOTE | 2018-01-30 10:11 | PCM.WC.PN ---
(1) Ulcer of right foot with fat layer exposed Status: Chronic Current Visit: Yes Code(s): L97.512 - Non-pressure chronic ulcer of other part of right foot with fat layer exposed (2) Type 2 diabetes mellitus with diabetic polyneuropathy Status: Chronic Current Visit: Yes Code(s): E11.42 - Type 2 diabetes mellitus with diabetic polyneuropathy (3) Hallux limitus Status: Chronic Current Visit: No Qualifiers: Laterality: right Qualified Code(s): M20.5X1 - Other deformities of toe(s) (acquired), right foot Code(s): M20.5X9 - Other deformities of toe(s) (acquired), unspecified foot (4) PAD (peripheral artery disease) Status: Chronic Current Visit: Yes Code(s): I73.9 - Peripheral vascular disease, unspecified Type of Wound Date of Service: 01/30/18 Chief Complaint: right great toe ulcer History of Wound: This 67-year-old male with multiple comorbidities is following up at the wound care center for continued treatment of wound to the right hallux. He denies fever, chill, nausea, vomiting. HE denies pain. He wears a surgical shoe and reports that he has neuropathy. He tries to keep pressure off of his toe. Progress of Wound: improving quality - Physical Exam Vital Signs Temp Pulse Resp BP 96 F L 76 18 156/75 H 01/30/18 08:11 01/30/18 08:11 01/30/18 08:11 01/30/18 08:11 General: Alert, Oriented x3, Cooperative Extremities: Capillary Refill Less than 3 Seconds, No Calf Tenderness, Diminished Peripheral Pulses Skin: Ulcer/ Wound - No purulence, no erythema, streaking, odor, no infection. 75% the wound is healthy granular base. The proximal aspect has a fibrous base and there is not any exposed capsule or tendon tissue. His peripheral skin is atrophic. Wound Measurements and Assessment WC - Nurse 1 - General Ulcer Measurement Start: 01/15/18 08:11 Freq: Status: Active Protocol: Activity Type Activity Date Activity User E-Sign Co-Sign Detail Recorded Client Recorded Date Recorded By Document 01/30/18 08:11 RB [id number] 01/30/18 08:22 RB 01/30/18 08:11 Wound Center Nurse 1 [Ulcer Assessment] 3-right hallux -Combined with other wound No -Current Size (cm) - Length 1.3 -Current Size (cm) - Width 0.5 -Current Size (cm) - Depth 0.2 -Total Square Cm 0.65 -Photo Taken Yes -Epithelialization Small 1-33% -Tunneling No -Undermining/Tunneling No -Circular Undermining No -Classification - Thickness Full Thickness without Exposed Support Structure -Exudate Amt Small (1-33%) -Exudate Type Serosanguineous -Wound Margin Thickened -Granulation Amt Medium (34-66%) -Granulation Quality [place] -Slough/Fibrin Yes -Necrosis Amt Medium (34-66%) -Necrotic Tissue Type Adherent Slough -Structure Exposed N/A -Texture (Maxine-wound Skin Appearance) Assessed -Moisture (Maxine-wound Skin Appearance Assessed ) -Color (Maxine-wound Skin Appearance) Assessed -Temperature (Maxine-wound Skin No Abnormality Appearance) (Pt Warm) -Tenderness on Palpation (Maxine-wound No Skin Appearance) -Ulcer Cleansing Rinsed/ Irrigated with Saline -Foul Odor after Cleansing No -Anesthetic Used 4% Lidocaine Solution [Edema Assessment] -Lower Limb Edema Present Yes -Right Calf (cm) 47.2 -Right Ankle (cm) 26 WC - Nurse 2 - General Ulcer CM Notes Start: 01/15/18 08:11 Freq: Status: Active Protocol: Activity Type Activity Date Activity User E-Sign Co-Sign Detail Recorded Client Recorded Date Recorded By Document 01/30/18 08:42 [id number] 01/30/18 08:44 01/30/18 08:42 Wound Center Nurse 2 [Procedure/Treatment] 3-right hallux -Time 08:43 -Correct Patient Yes -Correct Side, Site, Position Yes -Correct Procedure Yes -Procedure Performed Yes -Type of Procedure Debridement -Clinical Debridement Subcutaneous -Post Debridement Size (cm) - Length 1.4 -Post Debridement Size (cm) - Width 0.6 -Post Debridement Size (cm) - Depth 0.2 -Total Square Cm 0.84 -Wound/Ulcer Outcome Not Healed -Ulcer Cleansing Rinsed/ Irrigated with Saline -Foul Odor after Cleansing No -Bioengineered Tissue No -Expiration Date 11/13/22 -Product Lot Number [id number] -Percent Used 100 -Saline Lot Number [id number] -Topical Lidocaine (%) 4 -Bleeding Controlled with Pressure -Treatment Response Procedure Tolerated Well [See Physician Procedure note for Specifics] Pain Scale: 0-10 Numeric [Pain] -Is Patient Pain Free? Yes Musculoskeletal: No Tenderness to Palpation of Joints or Extremities, Muscle Wasting Neurological: - - Lack of epicritic sensation light touch Psych/Mental Status: Normal Affect, Appropriate Debridement Note Post-Debridement Measurements/Treatment WC - Nurse 2 - General Ulcer CM Notes Start: 01/15/18 08:11 Freq: Status: Active Protocol: Activity Type Activity Date Activity User E-Sign Co-Sign Detail Recorded Client Recorded Date Recorded By Document 01/15/18 09:00 JS [id number] 01/15/18 09:03 JS Document 01/23/18 08:32 TM [id number] 01/23/18 08:34 TM Document 01/30/18 08:42 TM [id number] 01/30/18 08:44 TM 01/15/18 01/23/18 01/30/18 09:00 08:32 08:42 Wound Center Nurse 2 3-right hallux -Time 09:01 08:32 08:43 -Correct Patient Yes Yes Yes -Correct Side, Site, Position Yes Yes Yes -Correct Procedure Yes Yes Yes -Procedure Performed Yes Yes Yes -Type of Procedure Debridement Debridement Debridement -Clinical Debridement Subcutaneous Subcutaneous Subcutaneous -Post Debridement Size (cm) - Length 1.7 1.0 1.4 -Post Debridement Size (cm) - Width 0.3 0.5 0.6 -Post Debridement Size (cm) - Depth 0.2 0.3 0.2 -Total Square Cm 0.51 0.50 0.84 -Wound/Ulcer Outcome Not Healed Not Healed Not Healed -Ulcer Cleansing Rinsed/ Rinsed/ Rinsed/ Irrigated with Irrigated with Irrigated with Saline Saline Saline -Foul Odor after Cleansing No No No -Bioengineered Tissue Yes Yes No -Type of bioengineered Tissue EPIFIX EPIFIX -Expiration Date 09/13/22 10/14/22 11/13/22 -Product Lot Number [id number] -Percent Used 100 100 100 -Saline Lot Number [id number] -Topical Lidocaine (%) 5 4 -Injectable Lidocaine (%) 4 -Injectable Lidocaine w/ Epi (%) 5 -Bleeding Controlled with NA Pressure Pressure -Treatment Response Procedure Procedure Procedure Tolerated Well Tolerated Well Tolerated Well Pain Scale: 0-10 Numeric Is Patient Pain Free? Yes Yes Yes Wound debrided: plantar hallux Laterality: Right Wound Grade/Stage: grade 1 Type of Debridement: Excisional debridement Anesthesia Used: 5% Lidocaine Gel Depth: in the subcutaneous layer Percentage of wound debrided: 100 Instrument Used: #15 blade Tissue Removed: fibrous, devitalized subcutaneous, biofilm, slough Severity: Fat Layer Exposed Amount of bleeding with debridement: Mild Bleeding Controlled with: Pressure Patient tolerated procedure well Assessment/Plan Active Problems (Last Updated 08/30/17 @ 07:15 by Ranjana Tam) Ulcer of right foot with fat layer exposed (Chronic) Type 2 diabetes mellitus with diabetic polyneuropathy (Chronic) PAD (peripheral artery disease) (Chronic) Diabetes mellitus (Chronic) Assessment: 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 Peripheral vascular disease. Diabetes with neuropathy. Malnutrition suspected. Delayed healing. hallux limitus right Plan: Current measures are to be continued. Patient has been advised to optimize his diabetes control. Improved nutrition has been recommended. Offloading measures are to be continued. Continue to wear his cam walker with multi-density offloading pockets on the right foot. A prescription was provided and he will obtain this at the [facility] center. Verbal consent was obtained and an epifix was applied according to standard protocol. Pressure was applied to maintain hemostasis and he tolerated this well. This was carried in place with Steri-Strips and wound veil. The patient is to leave his EpiFix allograft and dressing in place until his visit next week. He already has a shower bag. I reviewed and discussed his case and care plan. He was reassured there are no local signs of infection. He had biphasic and monophasic waveforms in the right lower extremity with an ankle-brachial index of 0.68. The toe brachial index was not calculated due to noncompressible status. Dr. Borges with vascular surgery did evaluate this patient during his last admission. Intervention will be considered if there are any delays in healing or further status change. He understands he is still at continued risk for further limb loss and illness. He was advised to maintain proper glycemic control and nutritional supplementation to optimize healing. Patient was educated on all signs and symptoms of local and systemic infection and he was instructed to go to the emergency room immediately should he notice any of these. To return to clinic in 1 week.
[2018-02-06 08:22] VITALS: BP 150/77; PULSE 80; RESP 18; TEMP 36.6
--- NOTE | 2018-02-06 09:13 | PCM.WC.PN ---
(1) Ulcer of right foot with fat layer exposed Status: Chronic Current Visit: Yes Code(s): L97.512 - Non-pressure chronic ulcer of other part of right foot with fat layer exposed (2) Type 2 diabetes mellitus with diabetic polyneuropathy Status: Chronic Current Visit: Yes Code(s): E11.42 - Type 2 diabetes mellitus with diabetic polyneuropathy (3) Hallux limitus Status: Chronic Current Visit: No Qualifiers: Laterality: right Qualified Code(s): M20.5X1 - Other deformities of toe(s) (acquired), right foot Code(s): M20.5X9 - Other deformities of toe(s) (acquired), unspecified foot (4) PAD (peripheral artery disease) Status: Chronic Current Visit: Yes Code(s): I73.9 - Peripheral vascular disease, unspecified Type of Wound Date of Service: 02/06/18 Chief Complaint: right great toe ulcer History of Wound: This 67-year-old male with multiple comorbidities is following up at the wound care center for continued treatment of wound to the right hallux. He denies fever, chill, nausea, vomiting. He denies pain. He wears a CAM walker and reports that he has neuropathy. He tries to keep pressure off of his toe. Progress of Wound: improving - Physical Exam Vital Signs Temp Pulse Resp BP 98 F 80 18 150/77 H 02/06/18 08:22 02/06/18 08:22 02/06/18 08:22 02/06/18 08:22 General: Alert, Oriented x3, Cooperative Extremities: No cyanosis, Capillary Refill Less than 3 Seconds, No Calf Tenderness - negative andre and contreras signs, Diminished Peripheral Pulses, Edema Skin: Ulcer/ Wound - No purulence, no erythema, streaking, odor, no infection. There is some callus periwound. The wound bed is granular and healthier in appearance. The peripheral skin is atrophic and hairless. Wound Measurements and Assessment WC - Nurse 1 - General Ulcer Measurement Start: 01/15/18 08:11 Freq: Status: Active Protocol: Activity Type Activity Date Activity User E-Sign Co-Sign Detail Recorded Client Recorded Date Recorded By Document 02/06/18 08:22 RB [id number] 02/06/18 08:26 RB 02/06/18 08:22 Wound Center Nurse 1 [Ulcer Assessment] 3-right hallux -Combined with other wound No -Current Size (cm) - Length 0.9 -Current Size (cm) - Width 0.3 -Current Size (cm) - Depth 0.2 -Total Square Cm 0.27 -Photo Taken No -Tunneling No -Undermining/Tunneling No -Circular Undermining No -Classification - Thickness Full Thickness without Exposed Support Structure -Exudate Amt Small (1-33%) -Exudate Type Serosanguineous -Wound Margin Distinct, Outline Attached -Granulation Amt Medium (34-66%) -Granulation Quality [place] -Slough/Fibrin Yes -Necrosis Amt Small (1-33%) -Necrotic Tissue Type Adherent Slough -Structure Exposed N/A -Texture (Maxine-wound Skin Appearance) Assessed Callus -Moisture (Maxine-wound Skin Appearance Assessed ) -Color (Maxine-wound Skin Appearance) Assessed -Temperature (Maxine-wound Skin No Abnormality Appearance) (Pt Warm) -Tenderness on Palpation (Maxine-wound No Skin Appearance) -Ulcer Cleansing Rinsed/ Irrigated with Saline -Foul Odor after Cleansing No -Anesthetic Used 4% Lidocaine Solution [Edema Assessment] -Lower Limb Edema Present Yes -Right Calf (cm) 47.7 -Right Ankle (cm) 26.5 WC - Nurse 2 - General Ulcer CM Notes Start: 01/15/18 08:11 Freq: Status: Active Protocol: Activity Type Activity Date Activity User E-Sign Co-Sign Detail Recorded Client Recorded Date Recorded By Document 02/06/18 08:48 [email or web address] 02/06/18 08:53 02/06/18 08:48 Wound Center Nurse 2 [Procedure/Treatment] 3-right hallux -Time 08:48 -Correct Patient Yes -Correct Side, Site, Position Yes -Correct Procedure Yes -Procedure Performed Yes -Type of Procedure Debridement -Clinical Debridement Subcutaneous -Post Debridement Size (cm) - Length 1.0 -Post Debridement Size (cm) - Width 0.4 -Post Debridement Size (cm) - Depth 0.2 -Total Square Cm 0.40 -Wound/Ulcer Outcome Not Healed -Ulcer Cleansing Rinsed/ Irrigated with Saline -Foul Odor after Cleansing No -Bioengineered Tissue Yes -Type of bioengineered Tissue EPIFIX -Expiration Date 11/13/22 -Product Lot Number [id number] -Percent Used 100 -Saline Lot Number [id number] -Topical Lidocaine (%) 4 -Bleeding Controlled with Pressure -Treatment Response Procedure Tolerated Well [See Physician Procedure note for Specifics] Pain Scale: 0-10 Numeric [Pain] -Is Patient Pain Free? Yes Musculoskeletal: No Tenderness to Palpation of Joints or Extremities, Muscle Wasting, - - Decreased limited first metatarsophalangeal joint range of motion Neurological: - - Lack of epicritic sensation light touch Psych/Mental Status: Normal Affect, Appropriate Debridement Note Post-Debridement Measurements/Treatment WC - Nurse 2 - General Ulcer CM Notes Start: 01/15/18 08:11 Freq: Status: Active Protocol: Activity Type Activity Date Activity User E-Sign Co-Sign Detail Recorded Client Recorded Date Recorded By Document 01/15/18 09:00 JS [id number] 01/15/18 09:03 Document 01/23/18 08:32 TM [id number] 01/23/18 08:34 TM Document 01/30/18 08:42 TM [id number] 01/30/18 08:44 TM Document 02/06/18 08:48 TM [id number] 02/06/18 08:53 TM 01/15/18 01/23/18 01/30/18 09:00 08:32 08:42 Wound Center Nurse 2 3-right hallux -Time 09:01 08:32 08:43 -Correct Patient Yes Yes Yes -Correct Side, Site, Position Yes Yes Yes -Correct Procedure Yes Yes Yes -Procedure Performed Yes Yes Yes -Type of Procedure Debridement Debridement Debridement -Clinical Debridement Subcutaneous Subcutaneous Subcutaneous -Post Debridement Size (cm) - Length 1.7 1.0 1.4 -Post Debridement Size (cm) - Width 0.3 0.5 0.6 -Post Debridement Size (cm) - Depth 0.2 0.3 0.2 -Total Square Cm 0.51 0.50 0.84 -Wound/Ulcer Outcome Not Healed Not Healed Not Healed -Ulcer Cleansing Rinsed/ Rinsed/ Rinsed/ Irrigated with Irrigated with Irrigated with Saline Saline Saline -Foul Odor after Cleansing No No No -Bioengineered Tissue Yes Yes No -Type of bioengineered Tissue EPIFIX EPIFIX -Expiration Date 09/13/22 10/14/22 11/13/22 -Product Lot Number [id number] -Percent Used 100 100 100 -Saline Lot Number [id number] -Topical Lidocaine (%) 5 4 -Injectable Lidocaine (%) 4 -Injectable Lidocaine w/ Epi (%) 5 -Bleeding Controlled with NA Pressure Pressure -Treatment Response Procedure Procedure Procedure Tolerated Well Tolerated Well Tolerated Well Pain Scale: 0-10 Numeric Is Patient Pain Free? Yes Yes Yes 02/06/18 08:48 Wound Center Nurse 2 3-right hallux -Time 08:48 -Correct Patient Yes -Correct Side, Site, Position Yes -Correct Procedure Yes -Procedure Performed Yes -Type of Procedure Debridement -Clinical Debridement Subcutaneous -Post Debridement Size (cm) - Length 1.0 -Post Debridement Size (cm) - Width 0.4 -Post Debridement Size (cm) - Depth 0.2 -Total Square Cm 0.40 -Wound/Ulcer Outcome Not Healed -Ulcer Cleansing Rinsed/ Irrigated with Saline -Foul Odor after Cleansing No -Bioengineered Tissue Yes -Type of bioengineered Tissue EPIFIX -Expiration Date 11/13/22 -Product Lot Number [id number] -Percent Used 100 -Saline Lot Number [id number] -Topical Lidocaine (%) 4 -Injectable Lidocaine (%) -Injectable Lidocaine w/ Epi (%) -Bleeding Controlled with Pressure -Treatment Response Procedure Tolerated Well Pain Scale: 0-10 Numeric Is Patient Pain Free? Yes Wound debrided: plantar medial hallux Laterality: Right Wound Grade/Stage: grade 1 Type of Debridement: Excisional debridement Anesthesia Used: 5% Lidocaine Gel Depth: in the subcutaneous layer Percentage of wound debrided: 100 Instrument Used: #15 blade Tissue Removed: fibrous, devitalized subcutaneous, biofilm, slough Severity: Fat Layer Exposed Amount of bleeding with debridement: Mild Bleeding Controlled with: Pressure Patient tolerated procedure well Assessment/Plan Active Problems (Last Updated 08/30/17 @ 07:15 by Ranjana Tam) Ulcer of right foot with fat layer exposed (Chronic) Type 2 diabetes mellitus with diabetic polyneuropathy (Chronic) PAD (peripheral artery disease) (Chronic) Diabetes mellitus (Chronic) Assessment: 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 Peripheral vascular disease. Diabetes with neuropathy. Malnutrition suspected. Delayed healing. hallux limitus right Plan: I reviewed and discussed his case. Debridement was performed as noted in the clinical panel. Improved nutrition has been recommended. Offloading measures are to be continued. Continue to wear his cam walker with multi-density offloading pockets on the right foot. Verbal consent was obtained and an epifix was applied according to standard protocol. Pressure was applied to maintain hemostasis and he tolerated this well. This was secured in place with Steri-Strips and wound veil. The patient is to leave his EpiFix allograft and dressing in place until his visit next week. He already has a shower bag. I reviewed and discussed his case and care plan. He was reassured there are no local signs of infection. He had biphasic and monophasic waveforms in the right lower extremity with an ankle-brachial index of 0.68. The toe brachial index was not calculated due to noncompressible status. Dr. Borges with vascular surgery did evaluate this patient during his last admission. Intervention will be considered if there are any delays in healing or further status change. He understands he is still at continued risk for further limb loss and illness. He was advised to maintain proper glycemic control and nutritional supplementation to optimize healing. Patient was educated on all signs and symptoms of local and systemic infection and he was instructed to go to the emergency room immediately should he notice any of these. To return to clinic in 1 week or call sooner if he has any questions.
--- NOTE | 2018-02-06 09:22 | PN.PCM_ITS ---
(1) Ulcer of right foot with fat layer exposed Status: Chronic Current Visit: Yes Code(s): L97.512 - Non-pressure chronic ulcer of other part of right foot with fat layer exposed (2) Type 2 diabetes mellitus with diabetic polyneuropathy Status: Chronic Current Visit: Yes Code(s): E11.42 - Type 2 diabetes mellitus with diabetic polyneuropathy (3) Hallux limitus Status: Chronic Current Visit: No Qualifiers: Laterality: right Qualified Code(s): M20.5X1 - Other deformities of toe(s) (acquired), right foot Code(s): M20.5X9 - Other deformities of toe(s) (acquired), unspecified foot (4) PAD (peripheral artery disease) Status: Chronic Current Visit: Yes Code(s): I73.9 - Peripheral vascular disease, unspecified Type of Wound Date of Service: 02/06/18 Chief Complaint: right great toe ulcer History of Wound: This 67-year-old male with multiple comorbidities is following up at the wound care center for continued treatment of wound to the right hallux. He denies fever, chill, nausea, vomiting. He denies pain. He wears a CAM walker and reports that he has neuropathy. He tries to keep pressure off of his toe. Progress of Wound: improving - Physical Exam Vital Signs Temp Pulse Resp BP 98 F 80 18 150/77 H 02/06/18 08:22 02/06/18 08:22 02/06/18 08:22 02/06/18 08:22 General: Alert, Oriented x3, Cooperative Extremities: No cyanosis, Capillary Refill Less than 3 Seconds, No Calf Tenderness - negative andre and contreras signs, Diminished Peripheral Pulses, Edema Skin: Ulcer/ Wound - No purulence, no erythema, streaking, odor, no infection. There is some callus periwound. The wound bed is granular and healthier in appearance. The peripheral skin is atrophic and hairless. Wound Measurements and Assessment WC - Nurse 1 - General Ulcer Measurement Start: 01/15/18 08:11 Freq: Status: Active Protocol: Activity Type Activity Date Activity User E-Sign Co-Sign Detail Recorded Client Recorded Date Recorded By Document 02/06/18 08:22 RB [id number] 02/06/18 08:26 RB 02/06/18 08:22 Wound Center Nurse 1 [Ulcer Assessment] 3-right hallux -Combined with other wound No -Current Size (cm) - Length 0.9 -Current Size (cm) - Width 0.3 -Current Size (cm) - Depth 0.2 -Total Square Cm 0.27 -Photo Taken No -Tunneling No -Undermining/Tunneling No -Circular Undermining No -Classification - Thickness Full Thickness without Exposed Support Structure -Exudate Amt Small (1-33%) -Exudate Type Serosanguineous -Wound Margin Distinct, Outline Attached -Granulation Amt Medium (34-66%) -Granulation Quality [place] -Slough/Fibrin Yes -Necrosis Amt Small (1-33%) -Necrotic Tissue Type Adherent Slough -Structure Exposed N/A -Texture (Maxine-wound Skin Appearance) Assessed Callus -Moisture (Maxine-wound Skin Appearance Assessed ) -Color (Maxine-wound Skin Appearance) Assessed -Temperature (Maxine-wound Skin No Abnormality Appearance) (Pt Warm) -Tenderness on Palpation (Maxine-wound No Skin Appearance) -Ulcer Cleansing Rinsed/ Irrigated with Saline -Foul Odor after Cleansing No -Anesthetic Used 4% Lidocaine Solution [Edema Assessment] -Lower Limb Edema Present Yes -Right Calf (cm) 47.7 -Right Ankle (cm) 26.5 WC - Nurse 2 - General Ulcer CM Notes Start: 01/15/18 08:11 Freq: Status: Active Protocol: Activity Type Activity Date Activity User E-Sign Co-Sign Detail Recorded Client Recorded Date Recorded By Document 02/06/18 08:48 [id number] 02/06/18 08:53 02/06/18 08:48 Wound Center Nurse 2 [Procedure/Treatment] 3-right hallux -Time 08:48 -Correct Patient Yes -Correct Side, Site, Position Yes -Correct Procedure Yes -Procedure Performed Yes -Type of Procedure Debridement -Clinical Debridement Subcutaneous -Post Debridement Size (cm) - Length 1.0 -Post Debridement Size (cm) - Width 0.4 -Post Debridement Size (cm) - Depth 0.2 -Total Square Cm 0.40 -Wound/Ulcer Outcome Not Healed -Ulcer Cleansing Rinsed/ Irrigated with Saline -Foul Odor after Cleansing No -Bioengineered Tissue Yes -Type of bioengineered Tissue EPIFIX -Expiration Date 11/13/22 -Product Lot Number [id number] -Percent Used 100 -Saline Lot Number [id number] -Topical Lidocaine (%) 4 -Bleeding Controlled with Pressure -Treatment Response Procedure Tolerated Well [See Physician Procedure note for Specifics] Pain Scale: 0-10 Numeric [Pain] -Is Patient Pain Free? Yes Musculoskeletal: No Tenderness to Palpation of Joints or Extremities, Muscle Wasting, - - Decreased limited first metatarsophalangeal joint range of motion Neurological: - - Lack of epicritic sensation light touch Psych/Mental Status: Normal Affect, Appropriate Debridement Note Post-Debridement Measurements/Treatment WC - Nurse 2 - General Ulcer CM Notes Start: 01/15/18 08:11 Freq: Status: Active Protocol: Activity Type Activity Date Activity User E-Sign Co-Sign Detail Recorded Client Recorded Date Recorded By Document 01/15/18 09:00 JS [id number] 01/15/18 09:03 Document 01/23/18 08:32 TM [id number] 01/23/18 08:34 TM Document 01/30/18 08:42 TM [id number] 01/30/18 08:44 TM Document 02/06/18 08:48 TM [id number] 02/06/18 08:53 TM 01/15/18 01/23/18 01/30/18 09:00 08:32 08:42 Wound Center Nurse 2 3-right hallux -Time 09:01 08:32 08:43 -Correct Patient Yes Yes Yes -Correct Side, Site, Position Yes Yes Yes -Correct Procedure Yes Yes Yes -Procedure Performed Yes Yes Yes -Type of Procedure Debridement Debridement Debridement -Clinical Debridement Subcutaneous Subcutaneous Subcutaneous -Post Debridement Size (cm) - Length 1.7 1.0 1.4 -Post Debridement Size (cm) - Width 0.3 0.5 0.6 -Post Debridement Size (cm) - Depth 0.2 0.3 0.2 -Total Square Cm 0.51 0.50 0.84 -Wound/Ulcer Outcome Not Healed Not Healed Not Healed -Ulcer Cleansing Rinsed/ Rinsed/ Rinsed/ Irrigated with Irrigated with Irrigated with Saline Saline Saline -Foul Odor after Cleansing No No No -Bioengineered Tissue Yes Yes No -Type of bioengineered Tissue EPIFIX EPIFIX -Expiration Date 09/13/22 10/14/22 11/13/22 -Product Lot Number [id number] -Percent Used 100 100 100 -Saline Lot Number [id number] -Topical Lidocaine (%) 5 4 -Injectable Lidocaine (%) 4 -Injectable Lidocaine w/ Epi (%) 5 -Bleeding Controlled with NA Pressure Pressure -Treatment Response Procedure Procedure Procedure Tolerated Well Tolerated Well Tolerated Well Pain Scale: 0-10 Numeric Is Patient Pain Free? Yes Yes Yes 02/06/18 08:48 Wound Center Nurse 2 3-right hallux -Time 08:48 -Correct Patient Yes -Correct Side, Site, Position Yes -Correct Procedure Yes -Procedure Performed Yes -Type of Procedure Debridement -Clinical Debridement Subcutaneous -Post Debridement Size (cm) - Length 1.0 -Post Debridement Size (cm) - Width 0.4 -Post Debridement Size (cm) - Depth 0.2 -Total Square Cm 0.40 -Wound/Ulcer Outcome Not Healed -Ulcer Cleansing Rinsed/ Irrigated with Saline -Foul Odor after Cleansing No -Bioengineered Tissue Yes -Type of bioengineered Tissue EPIFIX -Expiration Date 11/13/22 -Product Lot Number [id number] -Percent Used 100 -Saline Lot Number [id number] -Topical Lidocaine (%) 4 -Injectable Lidocaine (%) -Injectable Lidocaine w/ Epi (%) -Bleeding Controlled with Pressure -Treatment Response Procedure Tolerated Well Pain Scale: 0-10 Numeric Is Patient Pain Free? Yes Wound debrided: plantar medial hallux Laterality: Right Wound Grade/Stage: grade 1 Type of Debridement: Excisional debridement Anesthesia Used: 5% Lidocaine Gel Depth: in the subcutaneous layer Percentage of wound debrided: 100 Instrument Used: #15 blade Tissue Removed: fibrous, devitalized subcutaneous, biofilm, slough Severity: Fat Layer Exposed Amount of bleeding with debridement: Mild Bleeding Controlled with: Pressure Patient tolerated procedure well Assessment/Plan Active Problems (Last Updated 08/30/17 @ 07:15 by Rnajana Tam) Ulcer of right foot with fat layer exposed (Chronic) Type 2 diabetes mellitus with diabetic polyneuropathy (Chronic) PAD (peripheral artery disease) (Chronic) Diabetes mellitus (Chronic) Assessment: 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 Peripheral vascular disease. Diabetes with neuropathy. Malnutrition suspected. Delayed healing. hallux limitus right Plan: I reviewed and discussed his case. Debridement was performed as noted in the clinical panel. Improved nutrition has been recommended. Offloading measures are to be continued. Continue to wear his cam walker with multi- density offloading pockets on the right foot. Verbal consent was obtained and an epifix was applied according to standard protocol. Pressure was applied to maintain hemostasis and he tolerated this well. This was secured in place with Steri-Strips and wound veil. The patient is to leave his EpiFix allograft and dressing in place until his visit next week. He already has a shower bag. I reviewed and discussed his case and care plan. He was reassured there are no local signs of infection. He had biphasic and monophasic waveforms in the right lower extremity with an ankle-brachial index of 0.68. The toe brachial index was not calculated due to noncompressible status. Dr. Borges with vascular surgery did evaluate this patient during his last admission. Intervention will be considered if there are any delays in healing or further status change. He understands he is still at continued risk for further limb loss and illness. He was advised to maintain proper glycemic control and nutritional supplementation to optimize healing. Patient was educated on all signs and symptoms of local and systemic infection and he was instructed to go to the emergency room immediately should he notice any of these. To return to clinic in 1 week or call sooner if he has any questions.
== END 2018-02-12 23:59 ==
LOC: WC 08:00
PROVIDERS: Family Provider Family Medicine; PCP Family Medicine; Visit Provider Podiatrist
DX: E11.621 Type 2 diabetes mellitus with foot ulcer (principal); E11.42 Type 2 diabetes mellitus with diabetic polyneuropathy; M20.5X1 Other deformities of toe(s) (acquired), right foot; E11.51 Type 2 diabetes mellitus with diabetic peripheral angiopathy without gangrene; L97.512 Non-pressure chronic ulcer of other part of right foot with fat layer exposed; R60.0 Localized edema; R09.89 Other specified symptoms and signs involving the circulatory and respiratory systems
CPT/HCPCS: 15275; Q4131

== ENCOUNTER 2018-03-13 08:15 | Outpatient (RCR) | payer OTHER, SELFPAY ==
[2018-02-13 00:24] VITALS: BP 150/77; PULSE 80; RESP 18; TEMP 36.6
[2018-02-13 08:29] VITALS: RESP 18; TEMP 36.2
--- NOTE | 2018-02-13 11:12 | PCM.WC.PN ---
(1) Ulcer of right foot with fat layer exposed Status: Chronic Current Visit: Yes Code(s): L97.512 - Non-pressure chronic ulcer of other part of right foot with fat layer exposed (2) Osteomyelitis Status: Chronic Current Visit: Yes Qualifiers: Osteomyelitis location: foot Laterality: right Code(s): M86.9 - Osteomyelitis, unspecified (3) Type 2 diabetes mellitus with diabetic polyneuropathy Status: Chronic Current Visit: Yes Code(s): E11.42 - Type 2 diabetes mellitus with diabetic polyneuropathy (4) Hallux limitus Status: Chronic Current Visit: Yes Qualifiers: Laterality: right Qualified Code(s): M20.5X1 - Other deformities of toe(s) (acquired), right foot Code(s): M20.5X9 - Other deformities of toe(s) (acquired), unspecified foot Type of Wound Date of Service: 02/13/18 Chief Complaint: right great toe ulcer History of Wound: This 67-year-old male with multiple comorbidities is following up at the wound care center for continued treatment of wound to the right hallux. He denies fever, chill, nausea, vomiting. He denies pain. He wears a CAM walker and reports that he has neuropathy. He tries to keep pressure off of his toe. Progress of Wound: improving - Physical Exam Vital Signs Temp Pulse Resp BP 97.2 F L 80 18 150/77 H 02/13/18 08:29 02/13/18 00:24 02/13/18 08:29 02/13/18 00:24 General: Alert, Oriented x3, Cooperative Extremities: No cyanosis, Capillary Refill Less than 3 Seconds, No Calf Tenderness, Diminished Peripheral Pulses, Edema, - - Decreased loaded first metatarsophalangeal joint range of motion right foot Skin: Ulcer/ Wound - No purulence, no erythema, [place], no odor, infection. The wound bed is granular. Wound Measurements and Assessment WC - Nurse 1 - General Ulcer Measurement Start: 02/13/18 08:29 Freq: Status: Active Protocol: Activity Type Activity Date Activity User E-Sign Co-Sign Detail Recorded Client Recorded Date Recorded By Document 02/13/18 08:29 DL [id number] 02/13/18 08:31 DL 02/13/18 08:29 Wound Center Nurse 1 [Ulcer Assessment] 3-right hallux -Current Size (cm) - Length 0.9 -Current Size (cm) - Width 0.4 -Current Size (cm) - Depth 0.2 -Total Square Cm 0.36 -Photo Taken No -Maximum Distance #2 (cm) 0.2 -Circular Undermining Yes -Exudate Amt None Present (0 %) -Exudate Type Serosanguineous -Wound Margin Thickened -Granulation Amt Small (1-33%) -Granulation Quality Pale -Necrosis Amt Small (1-33%) -Necrotic Tissue Type Adherent Slough -Structure Exposed N/A -Texture (Maxine-wound Skin Appearance) Callus -Moisture (Maxine-wound Skin Appearance Dry/Scaly ) -Color (Maxine-wound Skin Appearance) No Abnormality -Temperature (Maxine-wound Skin No Abnormality Appearance) (Pt Warm) -Ulcer Cleansing Wound Cleanser -Foul Odor after Cleansing No -Anesthetic Used 4% Lidocaine Solution WC - Nurse 2 - General Ulcer CM Notes Start: 02/13/18 08:29 Freq: Status: Active Protocol: Activity Type Activity Date Activity User E-Sign Co-Sign Detail Recorded Client Recorded Date Recorded By Document 02/13/18 09:42 [id number] 02/13/18 09:45 02/13/18 09:42 Wound Center Nurse 2 [Procedure/Treatment] -Time 08:30 -Correct Patient Yes -Correct Side, Site, Position Yes -Correct Procedure Yes -Procedure Performed Yes -Type of Procedure Debridement -Clinical Debridement Subcutaneous -Post Debridement Size (cm) - Length 2.0 -Post Debridement Size (cm) - Width 0.5 -Post Debridement Size (cm) - Depth 0.2 -Total Square Cm 1.00 -Wound/Ulcer Outcome Not Healed -Ulcer Cleansing Rinsed/ Irrigated with Saline -Foul Odor after Cleansing No -Bioengineered Tissue Yes -Type of bioengineered Tissue EPIFIX -Expiration Date 11/13/22 -Product Lot Number [id number] -Percent Used 100 -Saline Lot Number [id number] -Topical Lidocaine (%) 4 -Bleeding Controlled with Pressure -Treatment Response Procedure Tolerated Well [See Physician Procedure note for Specifics] Pain Scale: 0-10 Numeric [Pain] -Is Patient Pain Free? Yes Musculoskeletal: No Tenderness to Palpation of Joints or Extremities, Muscle Wasting Neurological: - - Epicritic sensation light touch is lacking Psych/Mental Status: Normal Affect, Appropriate Debridement Note Post-Debridement Measurements/Treatment WC - Nurse 2 - General Ulcer CM Notes Start: 02/13/18 08:29 Freq: Status: Active Protocol: Activity Type Activity Date Activity User E-Sign Co-Sign Detail Recorded Client Recorded Date Recorded By Document 02/13/18 09:42 [id number] 02/13/18 09:45 02/13/18 09:42 Wound Center Nurse 2 3-right hallux -Time 08:30 -Correct Patient Yes -Correct Side, Site, Position Yes -Correct Procedure Yes -Procedure Performed Yes -Type of Procedure Debridement -Clinical Debridement Subcutaneous -Post Debridement Size (cm) - Length 2.0 -Post Debridement Size (cm) - Width 0.5 -Post Debridement Size (cm) - Depth 0.2 -Total Square Cm 1.00 -Wound/Ulcer Outcome Not Healed -Ulcer Cleansing Rinsed/ Irrigated with Saline -Foul Odor after Cleansing No -Bioengineered Tissue Yes -Type of bioengineered Tissue EPIFIX -Expiration Date 11/13/22 -Product Lot Number [id number] -Percent Used 100 -Saline Lot Number [id number] -Topical Lidocaine (%) 4 -Bleeding Controlled with Pressure -Treatment Response Procedure Tolerated Well Pain Scale: 0-10 Numeric Is Patient Pain Free? Yes Wound debrided: plantar medial hallux Laterality: Right Wound Grade/Stage: grade 1 Type of Debridement: Excisional debridement Anesthesia Used: 4% Lidocaine Solution Depth: in the subcutaneous layer Percentage of wound debrided: 100 Instrument Used: #15 blade Tissue Removed: Fibrous, devitalized subcutaneous, biofilm, slough Severity: Fat Layer Exposed Amount of bleeding with debridement: Mild Bleeding Controlled with: Pressure Patient tolerated procedure well Assessment/Plan Active Problems (Last Updated 08/30/17 @ 07:15 by Ranjana Tam) Ulcer of right foot with fat layer exposed (Chronic) Osteomyelitis (Chronic) Type 2 diabetes mellitus with diabetic polyneuropathy (Chronic) Hallux limitus (Chronic) Chronic ulcer of left foot with fat layer exposed (Chronic) Hammertoe of right foot (Chronic) Hammertoe of left foot (Chronic) Assessment: 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 Peripheral vascular disease. Diabetes with neuropathy. Malnutrition suspected. Delayed healing. hallux limitus right Plan: I reviewed and discussed his case. Debridement was performed as noted in the clinical panel. Improved nutrition has been recommended. Offloading measures are to be continued. Additional felt offloading pad was incorporated to the cam walker today; he previously had dual density offloading Plastizote which has compressed since he has been using it as advised. To continue to wear his cam walker with multi-density offloading pockets on the right foot. Verbal consent was obtained and an epifix was applied according to standard protocol. Pressure was applied to maintain hemostasis and he tolerated this well. This was secured in place with Steri-Strips and wound veil. The patient is to leave his EpiFix allograft and dressing in place until his visit next week. He already has a shower bag. I reviewed and discussed his case and care plan. He was reassured there are no local signs of infection. He had biphasic and monophasic waveforms in the right lower extremity with an ankle-brachial index of 0.68. The toe brachial index was not calculated due to noncompressible status. Dr. Borges with vascular surgery did evaluate this patient during his last admission. Intervention will be considered if there are any delays in healing or further status change. He understands he is still at continued risk for further limb loss and illness. He was advised to maintain proper glycemic control and nutritional supplementation to optimize healing. Patient was educated on all signs and symptoms of local and systemic infection and he was instructed to go to the emergency room immediately should he notice any of these. To return to clinic in 1 week or call sooner if he has any questions.
[2018-02-20 08:17] VITALS: BP 151/89; PULSE 72; RESP 18; TEMP 36.1
--- NOTE | 2018-02-20 16:03 | PN.PCM_ITS ---
(1) Ulcer of right foot with fat layer exposed Status: Chronic Code(s): L97.512 - Non-pressure chronic ulcer of other part of right foot with fat layer exposed (2) Osteomyelitis Status: Chronic Qualifiers: Osteomyelitis location: foot Laterality: right Code(s): M86.9 - Osteomyelitis, unspecified (3) Type 2 diabetes mellitus with diabetic polyneuropathy Status: Chronic Code(s): E11.42 - Type 2 diabetes mellitus with diabetic polyneuropathy (4) Hallux limitus Status: Chronic Qualifiers: Laterality: right Qualified Code(s): M20.5X1 - Other deformities of toe(s) (acquired), right foot Code(s): M20.5X9 - Other deformities of toe(s) (acquired), unspecified foot Type of Wound Date of Service: 02/23/18 Chief Complaint: right great toe ulcer History of Wound: This 67-year-old male with multiple comorbidities is following up at the wound care center for continued treatment of wound to the right hallux. He denies fever, chill, nausea, vomiting. He denies pain. He wears a CAM walker and reports that he has neuropathy. He tries to keep pressure off of his toe. Progress of Wound: improving - Physical Exam Vital Signs Temp Pulse Resp BP 97 F L 72 18 151/89 H 02/20/18 08:17 02/20/18 08:17 02/20/18 08:17 02/20/18 08:17 General: Alert, Oriented x3, Cooperative Extremities: No cyanosis, Capillary Refill Less than 3 Seconds, No Calf Tenderness, Diminished Peripheral Pulses, Edema Skin: Ulcer/ Wound - No purulence, no erythema, streaking, no odor, no infection bilateral lower extremities Wound Measurements and Assessment WC - Nurse 1 - General Ulcer Measurement Start: 02/13/18 08:29 Freq: Status: Active Protocol: Activity Type Activity Date Activity User E-Sign Co-Sign Detail Recorded Client Recorded Date Recorded By Document 02/20/18 08:17 [email or web address] [id number] 02/20/18 08:20 RB 02/20/18 08:17 Wound Center Nurse 1 [Ulcer Assessment] 3-right hallux -Combined with other wound No -Current Size (cm) - Length 1 -Current Size (cm) - Width 0.3 -Current Size (cm) - Depth 0.2 -Total Square Cm 0.3 -Photo Taken No -Tunneling No -Undermining/Tunneling No -Circular Undermining No -Classification - Thickness Full Thickness without Exposed Support Structure -Exudate Amt Small (1-33%) -Exudate Type Serosanguineous -Wound Margin Distinct, Outline Attached -Granulation Amt Medium (34-66%) -Granulation Quality [place] -Slough/Fibrin Yes -Necrosis Amt Small (1-33%) -Necrotic Tissue Type Adherent Slough -Structure Exposed N/A -Texture (Maxine-wound Skin Appearance) Assessed Callus -Moisture (Maxine-wound Skin Appearance Assessed ) -Color (Maxine-wound Skin Appearance) Assessed -Temperature (Maxine-wound Skin No Abnormality Appearance) (Pt Warm) -Tenderness on Palpation (Maxine-wound No Skin Appearance) -Ulcer Cleansing Wound Cleanser -Anesthetic Used 4% Lidocaine Solution 5% Lidocaine Gel [Edema Assessment] -Lower Limb Edema Present Yes -Right Calf (cm) 46 -Right Ankle (cm) 26.5 WC - Nurse 2 - General Ulcer CM Notes Start: 02/13/18 08:29 Freq: Status: Active Protocol: Activity Type Activity Date Activity User E-Sign Co-Sign Detail Recorded Client Recorded Date Recorded By Document 02/20/18 10:18 [id number] 02/20/18 10:19 [email or web address] 02/20/18 10:18 Wound Center Nurse 2 [Procedure/Treatment] 3-right hallux -Time 10:18 -Correct Patient Yes -Correct Side, Site, Position Yes -Correct Procedure Yes -Procedure Performed Yes -Type of Procedure Debridement -Clinical Debridement Subcutaneous -Post Debridement Size (cm) - Length 1.1 -Post Debridement Size (cm) - Width 0.3 -Post Debridement Size (cm) - Depth 0.2 -Total Square Cm 0.33 -Wound/Ulcer Outcome Not Healed -Ulcer Cleansing Rinsed/ Irrigated with Saline -Foul Odor after Cleansing No -Bioengineered Tissue Yes -Type of bioengineered Tissue EPIFIX -Expiration Date 11/13/22 -Product Lot Number [id number] -Percent Used 100 -Saline Lot Number [id number] -Bleeding Controlled with Pressure -Treatment Response Procedure Tolerated Well [See Physician Procedure note for Specifics] Pain Scale: 0-10 Numeric [Pain] -Is Patient Pain Free? Yes Musculoskeletal: No Tenderness to Palpation of Joints or Extremities, Muscle Wasting, - - Decreased loading first metatarsophalangeal joint range of motion Neurological: - - Lack of epicritic sensation light touch Psych/Mental Status: Normal Affect, Appropriate Debridement Note Post-Debridement Measurements/Treatment WC - Nurse 2 - General Ulcer CM Notes Start: 02/13/18 08:29 Freq: Status: Active Protocol: Activity Type Activity Date Activity User E-Sign Co-Sign Detail Recorded Client Recorded Date Recorded By Document 02/13/18 09:42 [id number] 02/13/18 09:45 Document 02/20/18 10:18 [id number] 02/20/18 10:19 02/13/18 02/20/18 09:42 10:18 Wound Center Nurse 2 3-right hallux -Time 08:30 10:18 -Correct Patient Yes Yes -Correct Side, Site, Position Yes Yes -Correct Procedure Yes Yes -Procedure Performed Yes Yes -Type of Procedure Debridement Debridement -Clinical Debridement Subcutaneous Subcutaneous -Post Debridement Size (cm) - Length 2.0 1.1 -Post Debridement Size (cm) - Width 0.5 0.3 -Post Debridement Size (cm) - Depth 0.2 0.2 -Total Square Cm 1.00 0.33 -Wound/Ulcer Outcome Not Healed Not Healed -Ulcer Cleansing Rinsed/ Rinsed/ Irrigated with Irrigated with Saline Saline -Foul Odor after Cleansing No No -Bioengineered Tissue Yes Yes -Type of bioengineered Tissue EPIFIX EPIFIX -Expiration Date 11/13/22 11/13/22 -Product Lot Number [id number] -Percent Used 100 100 -Saline Lot Number [id number] -Topical Lidocaine (%) 4 -Bleeding Controlled with Pressure Pressure -Treatment Response Procedure Procedure Tolerated Well Tolerated Well Pain Scale: 0-10 Numeric Is Patient Pain Free? Yes Yes Wound debrided: plantar medial hallux Laterality: Right Wound Grade/Stage: grade 1 Type of Debridement: Excisional debridement Anesthesia Used: 5% Lidocaine Gel Depth: in the subcutaneous layer Percentage of wound debrided: 100 Instrument Used: #15 blade Tissue Removed: fibrous, devitalized subcutaneous, biofilm, slough Severity: Fat Layer Exposed Amount of bleeding with debridement: Mild Bleeding Controlled with: Pressure Patient tolerated procedure well Assessment/Plan Assessment: 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 Peripheral vascular disease. Diabetes with neuropathy. Malnutrition suspected. Delayed healing. hallux limitus right Plan: I reviewed and discussed his case. Debridement was performed as noted in the clinical panel. Improved nutrition has been recommended. Offloading measures are to be continued. Additional felt offloading pad was incorporated to the cam walker today; he previously had dual density offloading Plastizote which has compressed since he has been using it as advised. To continue to wear his cam walker with multi-density offloading pockets on the right foot. Verbal consent was obtained and an epifix was applied according to standard protocol. Pressure was applied to maintain hemostasis and he tolerated this well. This was secured in place with Steri-Strips and wound veil. The patient is to leave his EpiFix allograft and dressing in place until his visit next week. He already has a shower bag. I reviewed and discussed his case and care plan. He was reassured there are no local signs of infection. He had biphasic and monophasic waveforms in the right lower extremity with an ankle-brachial index of 0.68. The toe brachial index was not calculated due to noncompressible status. Dr. Borges with vascular surgery did evaluate this patient during his last admission. Intervention will be considered if there are any delays in healing or further status change. He understands he is still at continued risk for further limb loss and illness. He was advised to maintain proper glycemic control and nutritional supplementation to optimize healing. Patient was educated on all signs and symptoms of local and systemic infection and he was instructed to go to the emergency room immediately should he notice any of these. To return to clinic in 1 week or call sooner if he has any questions.
[2018-02-27 08:13] VITALS: BP 152/76; PULSE 74; RESP 18; TEMP 35.8
--- NOTE | 2018-02-27 09:36 | PCM.WC.PN ---
(1) Ulcer of right foot with fat layer exposed Status: Chronic Current Visit: Yes Code(s): L97.512 - Non-pressure chronic ulcer of other part of right foot with fat layer exposed (2) Osteomyelitis Status: Chronic Current Visit: Yes Qualifiers: Osteomyelitis location: foot Laterality: right Code(s): M86.9 - Osteomyelitis, unspecified (3) Type 2 diabetes mellitus with diabetic polyneuropathy Status: Chronic Current Visit: Yes Code(s): E11.42 - Type 2 diabetes mellitus with diabetic polyneuropathy (4) Hallux limitus Status: Chronic Current Visit: Yes Qualifiers: Laterality: right Qualified Code(s): M20.5X1 - Other deformities of toe(s) (acquired), right foot Code(s): M20.5X9 - Other deformities of toe(s) (acquired), unspecified foot Type of Wound Date of Service: 02/27/18 Chief Complaint: right great toe ulcer History of Wound: This 67-year-old male with multiple comorbidities is following up at the wound care center for continued treatment of wound to the right hallux. He denies fever, chill, nausea, vomiting. He denies pain. He wears a CAM walker and reports that he has neuropathy. He tries to keep pressure off of his toe. Progress of Wound: improving - Physical Exam Vital Signs Temp Pulse Resp BP 96.5 F L 74 18 152/76 H 02/27/18 08:13 02/27/18 08:13 02/27/18 08:13 02/27/18 08:13 General: Alert, Oriented x3, Cooperative Extremities: No cyanosis, Capillary Refill Less than 3 Seconds, No Calf Tenderness, Diminished Peripheral Pulses, Edema - mild Skin: Ulcer/ Wound - no purulence, no erythema, no infection,no necrosis noted. decreased size and improved granulation tissue noted Wound Measurements and Assessment WC - Nurse 1 - General Ulcer Measurement Start: 02/13/18 08:29 Freq: Status: Active Protocol: Activity Type Activity Date Activity User E-Sign Co-Sign Detail Recorded Client Recorded Date Recorded By Document 02/27/18 08:13 DL [id number] 02/27/18 08:15 DL 02/27/18 08:13 Wound Center Nurse 1 [Ulcer Assessment] 3-right hallux -Current Size (cm) - Length 0.9 -Current Size (cm) - Width 0.4 -Current Size (cm) - Depth 0.3 -Total Square Cm 0.36 -Photo Taken No -Undermining/Tunneling Starts (O' 4 clock) -Undermining/Tunneling Ends (O'clock) 6 -Maximum Distance (cm) 0.2 -Exudate Amt Small (1-33%) -Exudate Type Serosanguineous -Wound Margin Thickened -Granulation Amt Medium (34-66%) -Granulation Quality [place] -Necrosis Amt Small (1-33%) -Necrotic Tissue Type Adherent Slough -Structure Exposed N/A -Texture (Maxine-wound Skin Appearance) Callus -Moisture (Maxine-wound Skin Appearance No Abnormality ) -Color (Maxine-wound Skin Appearance) No Abnormality -Temperature (Maxine-wound Skin No Abnormality Appearance) (Pt Warm) -Ulcer Cleansing Rinsed/ Irrigated with Saline -Foul Odor after Cleansing No -Anesthetic Used 4% Lidocaine Solution [Edema Assessment] -Right Calf (cm) 43 -Right Ankle (cm) 25 WC - Nurse 2 - General Ulcer CM Notes Start: 02/13/18 08:29 Freq: Status: Active Protocol: Activity Type Activity Date Activity User E-Sign Co-Sign Detail Recorded Client Recorded Date Recorded By Document 02/27/18 08:27 [id number] 02/27/18 08:28 02/27/18 08:27 Wound Center Nurse 2 [Procedure/Treatment] 3-right hallux -Time 08:27 -Correct Patient Yes -Correct Side, Site, Position Yes -Correct Procedure Yes -Procedure Performed Yes -Type of Procedure Debridement -Clinical Debridement Subcutaneous -Post Debridement Size (cm) - Length 1.0 -Post Debridement Size (cm) - Width 0.5 -Post Debridement Size (cm) - Depth 0.3 -Total Square Cm 0.50 -Wound/Ulcer Outcome Not Healed -Ulcer Cleansing Rinsed/ Irrigated with Saline -Foul Odor after Cleansing No -Bioengineered Tissue No -Topical Lidocaine (%) 4 -Bleeding Controlled with Pressure -Treatment Response Procedure Tolerated Well [See Physician Procedure note for Specifics] Pain Scale: 0-10 Numeric [Pain] -Is Patient Pain Free? Yes Musculoskeletal: No Tenderness to Palpation of Joints or Extremities, Muscle Wasting, - - decreased loaded first metatarsal phalangeal joint left Neurological: - - lack of epicritic sensation via light touch noted Psych/Mental Status: Normal Affect, Appropriate Debridement Note Post-Debridement Measurements/Treatment WC - Nurse 2 - General Ulcer CM Notes Start: 02/13/18 08:29 Freq: Status: Active Protocol: Activity Type Activity Date Activity User E-Sign Co-Sign Detail Recorded Client Recorded Date Recorded By Document 02/13/18 09:42 [id number] 02/13/18 09:45 Document 02/20/18 10:18 [id number] 02/20/18 10:19 Document 02/27/18 08:27 TM [id number] 02/27/18 08:28 TM 02/13/18 02/20/18 02/27/18 09:42 10:18 08:27 Wound Center Nurse 2 3-right hallux -Time 08:30 10:18 08:27 -Correct Patient Yes Yes Yes -Correct Side, Site, Position Yes Yes Yes -Correct Procedure Yes Yes Yes -Procedure Performed Yes Yes Yes -Type of Procedure Debridement Debridement Debridement -Clinical Debridement Subcutaneous Subcutaneous Subcutaneous -Post Debridement Size (cm) - Length 2.0 1.1 1.0 -Post Debridement Size (cm) - Width 0.5 0.3 0.5 -Post Debridement Size (cm) - Depth 0.2 0.2 0.3 -Total Square Cm 1.00 0.33 0.50 -Wound/Ulcer Outcome Not Healed Not Healed Not Healed -Ulcer Cleansing Rinsed/ Rinsed/ Rinsed/ Irrigated with Irrigated with Irrigated with Saline Saline Saline -Foul Odor after Cleansing No No No -Bioengineered Tissue Yes Yes No -Type of bioengineered Tissue EPIFIX EPIFIX -Expiration Date 11/13/22 11/13/22 -Product Lot Number [id number] -Percent Used 100 100 -Saline Lot Number [id number] -Topical Lidocaine (%) 4 4 -Bleeding Controlled with Pressure Pressure Pressure -Treatment Response Procedure Procedure Procedure Tolerated Well Tolerated Well Tolerated Well Pain Scale: 0-10 Numeric Is Patient Pain Free? Yes Yes Yes Wound debrided: plantar medial hallux Laterality: Right Wound Grade/Stage: grade 3 Type of Debridement: Excisional debridement Anesthesia Used: 4% Lidocaine Solution Depth: in the subcutaneous layer Percentage of wound debrided: 100 Instrument Used: #15 blade Tissue Removed: fibrous, devitalized subcutaneous, biofilm, slough Severity: Fat Layer Exposed Amount of bleeding with debridement: Mild Bleeding Controlled with: Pressure Patient tolerated procedure well Assessment/Plan Active Problems (Last Updated 08/30/17 @ 07:15 by Ranjana Tam) Ulcer of right foot with fat layer exposed (Chronic) Osteomyelitis (Chronic) Type 2 diabetes mellitus with diabetic polyneuropathy (Chronic) Hallux limitus (Chronic) Assessment: 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 Peripheral vascular disease. Diabetes with neuropathy. Malnutrition suspected. Delayed healing. hallux limitus right Plan: I reviewed and discussed his case. Debridement was performed as noted in the clinical panel. Improved nutrition has been recommended. Offloading measures are to be continued. Additional felt offloading pad was incorporated to the cam walker today; he previously had dual density offloading Plastizote which has compressed since he has been using it as advised. To continue to wear his cam walker with multi-density offloading pockets on the right foot. debridement was performed as noted in the clinical panel. He completed a course of epifix and doyle was applied today; to change daily at home. Pressure was applied to maintain hemostasis and he tolerated this well. He already has a shower bag. I reviewed and discussed his case and care plan. He was reassured there are no local signs of infection. He had biphasic and monophasic waveforms in the right lower extremity with an ankle-brachial index of 0.68. The toe brachial index was not calculated due to noncompressible status. Dr. Borges with vascular surgery did evaluate this patient during his last admission. Intervention will be considered if there are any delays in healing or further status change. He understands he is still at continued risk for further limb loss and illness. He was advised to maintain proper glycemic control and nutritional supplementation to optimize healing. Patient was educated on all signs and symptoms of local and systemic infection and he was instructed to go to the emergency room immediately should he notice any of these. To return to clinic in 1 week or call sooner if he has any questions.
--- NOTE | 2018-03-06 09:52 | PCM.WC.PN ---
(1) Ulcer of right foot with fat layer exposed Status: Chronic Current Visit: Yes Code(s): L97.512 - Non-pressure chronic ulcer of other part of right foot with fat layer exposed (2) Osteomyelitis Status: Chronic Current Visit: Yes Qualifiers: Osteomyelitis location: foot Laterality: right Code(s): M86.9 - Osteomyelitis, unspecified (3) Type 2 diabetes mellitus with diabetic polyneuropathy Status: Chronic Current Visit: Yes Code(s): E11.42 - Type 2 diabetes mellitus with diabetic polyneuropathy (4) Hallux limitus Status: Chronic Current Visit: Yes Qualifiers: Laterality: right Qualified Code(s): M20.5X1 - Other deformities of toe(s) (acquired), right foot Code(s): M20.5X9 - Other deformities of toe(s) (acquired), unspecified foot Type of Wound Date of Service: 03/06/18 Chief Complaint: right great toe ulcer History of Wound: This 67-year-old male with multiple comorbidities is following up at the wound care center for continued treatment of wound to the right hallux. He denies fever, chill, nausea, vomiting. He denies pain. He wears a CAM walker and reports that he has neuropathy. He tries to keep pressure off of his toe. Progress of Wound: improving - Physical Exam Vital Signs Temp Pulse Resp BP 96.5 F L 74 18 152/76 H 02/27/18 08:13 02/27/18 08:13 02/27/18 08:13 02/27/18 08:13 General: Alert, Oriented x3, Cooperative HEENT: Atraumatic Extremities: Capillary Refill Less than 3 Seconds, Diminished Peripheral Pulses Skin: Ulcer/ Wound - no purulence, no erythema, no streaking, no odor, no necrosis. peripheral callous noted. atrophic skin noted Wound Measurements and Assessment WC - Nurse 1 - General Ulcer Measurement Start: 02/13/18 08:29 Freq: Status: Active Protocol: Activity Type Activity Date Activity User E-Sign Co-Sign Detail Recorded Client Recorded Date Recorded By Document 03/06/18 08:12 [email or web address] [id number] 03/06/18 08:22 TN 03/06/18 08:12 Wound Center Nurse 1 [Ulcer Assessment] 3-right hallux -Combined with other wound No -Current Size (cm) - Length 1 -Current Size (cm) - Width 0.3 -Current Size (cm) - Depth 0.3 -Total Square Cm 0.3 -Photo Taken No -Epithelialization None Present -Tunneling Yes -Tunneling Position (O'clock) 12 -Tunneling Distance (cm) 0.3 -Undermining/Tunneling No -Circular Undermining No -Classification - Thickness Full Thickness without Exposed Support Structure -Change in Wound Grade/Stage No Query Text:If change please identify the Stage/Grade in the comment (ie. S2 G3) -Exudate Amt Medium (34-66%) -Exudate Type Serosanguineous -Wound Margin Thickened -Granulation Amt Small (1-33%) -Granulation Quality [place] -Slough/Fibrin Yes -Necrotic Tissue Type Adherent Slough -Structure Exposed None/Limited to Skin Breakdown -Texture (Maxine-wound Skin Appearance) Assessed Callus -Moisture (Maxine-wound Skin Appearance No Abnormality ) Assessed -Color (Maxine-wound Skin Appearance) No Abnormality Assessed -Temperature (Maxine-wound Skin No Abnormality Appearance) (Pt Warm) -Tenderness on Palpation (Maxine-wound No Skin Appearance) -Ulcer Cleansing Rinsed/ Irrigated with Saline -Foul Odor after Cleansing No -Anesthetic Used 5% Lidocaine Gel [Edema Assessment] -Lower Limb Edema Present No -Right Calf (cm) 45.5 -Right Ankle (cm) 26.5 WC - Nurse 2 - General Ulcer CM Notes Start: 02/13/18 08:29 Freq: Status: Active Protocol: Activity Type Activity Date Activity User E-Sign Co-Sign Detail Recorded Client Recorded Date Recorded By Document 03/06/18 08:43 [id number] 03/06/18 08:45 03/06/18 08:43 Wound Center Nurse 2 [Procedure/Treatment] 3-right hallux -Time 08:43 -Correct Patient Yes -Correct Side, Site, Position Yes -Correct Procedure Yes -Procedure Performed Yes -Type of Procedure Debridement -Clinical Debridement Subcutaneous -Post Debridement Size (cm) - Length 1.5 -Post Debridement Size (cm) - Width 0.5 -Post Debridement Size (cm) - Depth 0.2 -Total Square Cm 0.75 -Wound/Ulcer Outcome Not Healed -Ulcer Cleansing Rinsed/ Irrigated with Saline -Foul Odor after Cleansing No -Bioengineered Tissue No -Topical Lidocaine (%) 4 -Bleeding Controlled with Pressure -Treatment Response Procedure Tolerated Well [See Physician Procedure note for Specifics] Pain Scale: 0-10 Numeric [Pain] -Is Patient Pain Free? Yes Musculoskeletal: No Tenderness to Palpation of Joints or Extremities, Muscle Wasting, - - decreased loaded first metatarsal phalangeal joint noted Neurological: - - lack of epicritic sensation via light touch Psych/Mental Status: Normal Affect, Appropriate Debridement Note Post-Debridement Measurements/Treatment WC - Nurse 2 - General Ulcer CM Notes Start: 02/13/18 08:29 Freq: Status: Active Protocol: Activity Type Activity Date Activity User E-Sign Co-Sign Detail Recorded Client Recorded Date Recorded By Document 02/13/18 09:42 [id number] 02/13/18 09:45 Document 02/20/18 10:18 [id number] 02/20/18 10:19 Document 02/27/18 08:27 TM [id number] 02/27/18 08:28 TM Document 03/06/18 08:43 [id number] 03/06/18 08:45 TM 02/13/18 02/20/18 02/27/18 09:42 10:18 08:27 Wound Center Nurse 2 3-right hallux -Time 08:30 10:18 08:27 -Correct Patient Yes Yes Yes -Correct Side, Site, Position Yes Yes Yes -Correct Procedure Yes Yes Yes -Procedure Performed Yes Yes Yes -Type of Procedure Debridement Debridement Debridement -Clinical Debridement Subcutaneous Subcutaneous Subcutaneous -Post Debridement Size (cm) - Length 2.0 1.1 1.0 -Post Debridement Size (cm) - Width 0.5 0.3 0.5 -Post Debridement Size (cm) - Depth 0.2 0.2 0.3 -Total Square Cm 1.00 0.33 0.50 -Wound/Ulcer Outcome Not Healed Not Healed Not Healed -Ulcer Cleansing Rinsed/ Rinsed/ Rinsed/ Irrigated with Irrigated with Irrigated with Saline Saline Saline -Foul Odor after Cleansing No No No -Bioengineered Tissue Yes Yes No -Type of bioengineered Tissue EPIFIX EPIFIX -Expiration Date 11/13/22 11/13/22 -Product Lot Number [id number] -Percent Used 100 100 -Saline Lot Number [id number] -Topical Lidocaine (%) 4 4 -Bleeding Controlled with Pressure Pressure Pressure -Treatment Response Procedure Procedure Procedure Tolerated Well Tolerated Well Tolerated Well Pain Scale: 0-10 Numeric Is Patient Pain Free? Yes Yes Yes 03/06/18 08:43 Wound Center Nurse 2 3-right hallux -Time 08:43 -Correct Patient Yes -Correct Side, Site, Position Yes -Correct Procedure Yes -Procedure Performed Yes -Type of Procedure Debridement -Clinical Debridement Subcutaneous -Post Debridement Size (cm) - Length 1.5 -Post Debridement Size (cm) - Width 0.5 -Post Debridement Size (cm) - Depth 0.2 -Total Square Cm 0.75 -Wound/Ulcer Outcome Not Healed -Ulcer Cleansing Rinsed/ Irrigated with Saline -Foul Odor after Cleansing No -Bioengineered Tissue No -Type of bioengineered Tissue -Expiration Date -Product Lot Number -Percent Used -Saline Lot Number -Topical Lidocaine (%) 4 -Bleeding Controlled with Pressure -Treatment Response Procedure Tolerated Well Pain Scale: 0-10 Numeric Is Patient Pain Free? Yes Wound debrided: plantar hallux Laterality: Right Wound Grade/Stage: grade 1 Type of Debridement: Excisional debridement Anesthesia Used: 5% Lidocaine Gel Depth: in the subcutaneous layer Percentage of wound debrided: 100 Instrument Used: #15 blade Tissue Removed: fibrous, devitalized subcutaneous, biofilm, slough, callous Severity: Fat Layer Exposed Amount of bleeding with debridement: Mild Bleeding Controlled with: Pressure Patient tolerated procedure well Assessment/Plan Active Problems (Last Updated 08/30/17 @ 07:15 by Ranjana Tam) Ulcer of right foot with fat layer exposed (Chronic) Osteomyelitis (Chronic) Type 2 diabetes mellitus with diabetic polyneuropathy (Chronic) Hallux limitus (Chronic) Assessment: 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 Peripheral vascular disease. Diabetes with neuropathy. Malnutrition suspected. Delayed healing. hallux limitus right Plan: I reviewed and discussed his case. Debridement was performed as noted in the clinical panel. Improved nutrition has been recommended. Offloading measures are to be continued. Additional felt offloading pad was incorporated to the cam walker today; he previously had dual density offloading Plastizote which has compressed since he has been using it as advised. To continue to wear his cam walker with multi-density offloading pockets on the right foot. debridement was performed as noted in the clinical panel. He completed a course of epifix and doyle was applied today; to change daily at home. Pressure was applied to maintain hemostasis and he tolerated this well. Prior authorization will be initiated for additional advanced wound care product, nushield. He already has a shower bag. I reviewed and discussed his case and care plan. He was reassured there are no local signs of infection. He had biphasic and monophasic waveforms in the right lower extremity with an ankle-brachial index of 0.68. The toe brachial index was not calculated due to noncompressible status. Dr. Borges with vascular surgery did evaluate this patient during his last admission. Intervention will be considered if there are any delays in healing or further status change. He understands he is still at continued risk for further limb loss and illness. He was advised to maintain proper glycemic control and nutritional supplementation to optimize healing. Patient was educated on all signs and symptoms of local and systemic infection and he was instructed to go to the emergency room immediately should he notice any of these. To return to clinic in 1 week or call sooner if he has any questions.
[2018-03-13 08:26] VITALS: BP 160/81; PULSE 77; RESP 20; TEMP 36.3
--- NOTE | 2018-03-13 09:26 | PCM.WC.PN ---
(1) Ulcer of right foot with fat layer exposed Status: Chronic Code(s): L97.512 - Non-pressure chronic ulcer of other part of right foot with fat layer exposed (2) Osteomyelitis Status: Chronic Qualifiers: Osteomyelitis location: foot Laterality: right Code(s): M86.9 - Osteomyelitis, unspecified (3) Type 2 diabetes mellitus with diabetic polyneuropathy Status: Chronic Code(s): E11.42 - Type 2 diabetes mellitus with diabetic polyneuropathy (4) Hallux limitus Status: Chronic Qualifiers: Laterality: right Qualified Code(s): M20.5X1 - Other deformities of toe(s) (acquired), right foot Code(s): M20.5X9 - Other deformities of toe(s) (acquired), unspecified foot Type of Wound Date of Service: 03/16/18 Chief Complaint: right great toe ulcer History of Wound: This 67-year-old male with multiple comorbidities is following up at the wound care center for continued treatment of wound to the right hallux. He denies fever, chill, nausea, vomiting. He denies pain. He wears a CAM walker and reports that he has neuropathy. He tries to keep pressure off of his toe. Progress of Wound: improving - Physical Exam Vital Signs Temp Pulse Resp BP 97.3 F L 77 20 H 160/81 H 03/13/18 08:26 03/13/18 08:26 03/13/18 08:26 03/13/18 08:26 General: Alert, Oriented x3, Cooperative Extremities: No cyanosis, Capillary Refill Less than 3 Seconds, No Calf Tenderness - Negative Candice and Vera bilateral, Diminished Peripheral Pulses, Edema - Mild Skin: Ulcer/ Wound - No purulence, no erythema, streaking, no odor, no infection. The wound bed is granular and there is decreased peripheral callus noted. The peripheral skin is atrophic Wound Measurements and Assessment WC - Nurse 1 - General Ulcer Measurement Start: 02/13/18 08:29 Freq: Status: Active Protocol: Activity Type Activity Date Activity User E-Sign Co-Sign Detail Recorded Client Recorded Date Recorded By Document 03/13/18 08:26 DL [id number] 03/13/18 08:30 DL 03/13/18 08:26 Wound Center Nurse 1 [Ulcer Assessment] 3-right hallux -Current Size (cm) - Length 0.1 -Current Size (cm) - Width 0.1 -Current Size (cm) - Depth 0.1 -Total Square Cm 0.01 -Photo Taken No -Exudate Amt None Present (0 %) -Wound Margin Thickened -Granulation Amt Medium (34-66%) -Granulation Quality [place] -Necrosis Amt Medium (34-66%) -Necrotic Tissue Type Adherent Slough -Structure Exposed N/A -Texture (Maxine-wound Skin Appearance) Scarring -Moisture (Maxine-wound Skin Appearance Dry/Scaly ) -Color (Maxine-wound Skin Appearance) No Abnormality -Temperature (Maxine-wound Skin No Abnormality Appearance) (Pt Warm) -Ulcer Cleansing Rinsed/ Irrigated with Saline -Anesthetic Used 4% Lidocaine Solution [Edema Assessment] -Right Calf (cm) 44 -Right Ankle (cm) 25.5 WC - Nurse 2 - General Ulcer CM Notes Start: 02/13/18 08:29 Freq: Status: Active Protocol: Activity Type Activity Date Activity User E-Sign Co-Sign Detail Recorded Client Recorded Date Recorded By Document 03/13/18 08:42 DL [id number] 03/13/18 08:45 DL 03/13/18 08:42 Wound Center Nurse 2 [Procedure/Treatment] 3-right hallux -Time 08:42 -Correct Patient Yes -Correct Side, Site, Position Yes -Correct Procedure Yes -Procedure Performed Yes -Type of Procedure Debridement -Clinical Debridement Subcutaneous -Post Debridement Size (cm) - Length 1.4 -Post Debridement Size (cm) - Width 0.6 -Post Debridement Size (cm) - Depth 0.3 -Total Square Cm 0.84 -Wound/Ulcer Outcome Not Healed -Ulcer Cleansing Rinsed/ Irrigated with Saline -Foul Odor after Cleansing No -Bioengineered Tissue No -Bleeding Controlled with Pressure -Treatment Response Procedure Tolerated Well [See Physician Procedure note for Specifics] Pain Scale: 0-10 Numeric [Pain] -Is Patient Pain Free? Yes Musculoskeletal: No Tenderness to Palpation of Joints or Extremities, Muscle Wasting, - - Decreased on the first metatarsophalangeal joint range of motion Neurological: - - Lack of epicritic sensation light touch Psych/Mental Status: Normal Affect, Appropriate Debridement Note Post-Debridement Measurements/Treatment WC - Nurse 2 - General Ulcer CM Notes Start: 02/13/18 08:29 Freq: Status: Active Protocol: Activity Type Activity Date Activity User E-Sign Co-Sign Detail Recorded Client Recorded Date Recorded By Document 02/13/18 09:42 TM [id number] 02/13/18 09:45 TM Document 02/20/18 10:18 JF [id number] 02/20/18 10:19 JF Document 02/27/18 08:27 TM [id number] 02/27/18 08:28 TM Document 03/06/18 08:43 TM [id number] 03/06/18 08:45 TM Document 03/13/18 08:42 DL [id number] 03/13/18 08:45 DL 02/13/18 02/20/18 02/27/18 09:42 10:18 08:27 Wound Center Nurse 2 3-right hallux -Time 08:30 10:18 08:27 -Correct Patient Yes Yes Yes -Correct Side, Site, Position Yes Yes Yes -Correct Procedure Yes Yes Yes -Procedure Performed Yes Yes Yes -Type of Procedure Debridement Debridement Debridement -Clinical Debridement Subcutaneous Subcutaneous Subcutaneous -Post Debridement Size (cm) - Length 2.0 1.1 1.0 -Post Debridement Size (cm) - Width 0.5 0.3 0.5 -Post Debridement Size (cm) - Depth 0.2 0.2 0.3 -Total Square Cm 1.00 0.33 0.50 -Wound/Ulcer Outcome Not Healed Not Healed Not Healed -Ulcer Cleansing Rinsed/ Rinsed/ Rinsed/ Irrigated with Irrigated with Irrigated with Saline Saline Saline -Foul Odor after Cleansing No No No -Bioengineered Tissue Yes Yes No -Type of bioengineered Tissue EPIFIX EPIFIX -Expiration Date 11/13/22 11/13/22 -Product Lot Number [id number] -Percent Used 100 100 -Saline Lot Number [id number] -Topical Lidocaine (%) 4 4 -Bleeding Controlled with Pressure Pressure Pressure -Treatment Response Procedure Procedure Procedure Tolerated Well Tolerated Well Tolerated Well Pain Scale: 0-10 Numeric Is Patient Pain Free? Yes Yes Yes 03/06/18 03/13/18 08:43 08:42 Wound Center Nurse 2 3-right hallux -Time 08:43 08:42 -Correct Patient Yes Yes -Correct Side, Site, Position Yes Yes -Correct Procedure Yes Yes -Procedure Performed Yes Yes -Type of Procedure Debridement Debridement -Clinical Debridement Subcutaneous Subcutaneous -Post Debridement Size (cm) - Length 1.5 1.4 -Post Debridement Size (cm) - Width 0.5 0.6 -Post Debridement Size (cm) - Depth 0.2 0.3 -Total Square Cm 0.75 0.84 -Wound/Ulcer Outcome Not Healed Not Healed -Ulcer Cleansing Rinsed/ Rinsed/ Irrigated with Irrigated with Saline Saline -Foul Odor after Cleansing No No -Bioengineered Tissue No No -Type of bioengineered Tissue -Expiration Date -Product Lot Number -Percent Used -Saline Lot Number -Topical Lidocaine (%) 4 -Bleeding Controlled with Pressure Pressure -Treatment Response Procedure Procedure Tolerated Well Tolerated Well Pain Scale: 0-10 Numeric Is Patient Pain Free? Yes Yes Wound debrided: plantar hallux Laterality: Right Wound Grade/Stage: grade 1 Type of Debridement: Excisional debridement Anesthesia Used: 4% Lidocaine Solution Depth: in the subcutaneous layer Percentage of wound debrided: 100 Instrument Used: #15 blade Tissue Removed: fibrous, devitalized subcutaneous, biofilm, slough Severity: Fat Layer Exposed Amount of bleeding with debridement: Mild Bleeding Controlled with: Pressure Patient tolerated procedure well Assessment/Plan Assessment: 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 Peripheral vascular disease. Diabetes with neuropathy. Malnutrition suspected. Delayed healing. hallux limitus right Plan: I reviewed and discussed his case. Debridement was performed as noted in the clinical panel. Improved nutrition has been recommended. Offloading measures are to be continued. Additional felt offloading pad was incorporated to the cam walker today; he previously had dual density offloading Plastizote which has compressed since he has been using it as advised. To continue to wear his cam walker with multi-density offloading pockets on the right foot. debridement was performed as noted in the clinical panel. He completed a course of epifix and doyle was applied today; to change daily at home. Pressure was applied to maintain hemostasis and he tolerated this well. Prior authorization will be initiated for additional advanced wound care product, nushield. He already has a shower bag. I reviewed and discussed his case and care plan. He was reassured there are no local signs of infection. He had biphasic and monophasic waveforms in the right lower extremity with an ankle-brachial index of 0.68. The toe brachial index was not calculated due to noncompressible status. Dr. Borges with vascular surgery did evaluate this patient during his last admission. Intervention will be considered if there are any delays in healing or further status change. He understands he is still at continued risk for further limb loss and illness. He was advised to maintain proper glycemic control and nutritional supplementation to optimize healing. Patient was educated on all signs and symptoms of local and systemic infection and he was instructed to go to the emergency room immediately should he notice any of these. I also offered him further surgical offloading. Due to his impaired blood flow we are trying to avoid doing a Rodrigues arthroplasty. Today we discussed percutaneous tenotomies such as release of the flexor hallucis longus or release of the plantar fascia medial band. He defers this today and will consider this in the future. The benefits risks complications and anticipated reduction in wound size and healing management were discussed in detail. I answered his questions. To return to clinic in 1 week or call sooner if he has any questions.
== END 2018-03-15 23:59 ==
LOC: WC 08:15
PROVIDERS: Family Provider Family Medicine; PCP Family Medicine; Visit Provider Podiatrist
DX: E11.621 Type 2 diabetes mellitus with foot ulcer (principal); E11.42 Type 2 diabetes mellitus with diabetic polyneuropathy; L97.512 Non-pressure chronic ulcer of other part of right foot with fat layer exposed; M20.5X1 Other deformities of toe(s) (acquired), right foot; R60.0 Localized edema; M20.42 Other hammer toe(s) (acquired), left foot; M20.41 Other hammer toe(s) (acquired), right foot
CPT/HCPCS: 11042; 15275; Q4131

== ENCOUNTER → 2018-03-21 09:04 | Outpatient (CLI) | payer OTHER, SELFPAY ==
--- NOTE | 2018-03-21 | CYSPIN_PTH ---
PATIENT: EMILEE ARAGON LOC: [facility] U#:[id number] AGE/SX: 75/M ROOM: RE03/21/[address]: Dr. Floyd Ricketts DO : 1950 BED: DIS: SPEC #: [id number] RECD: 03/21/18 14:10 STATUS: PADDY YONATAN #: [id number] SONYA: 03/21/18 00:[address]: Floyd Ricketts DEPT: CYTOLOGY RECD BY: Bruce Vaca Tissues: Urine Procedures: Pap Stain (control) Special Stain Group II Cytospin Fluid HEADER OPERATION: Not noted PRE-OP DIAGNOSIS: R31.9 TISSUE SUBMITTED: Urine for cytology DIAGNOSIS CYTOLOGY Urine for cytology (cytospin): Negative for malignant cells. Acute inflammation. See cytology study and comment. SJ:jessica 03/22/18 COMMENT Repeated cytology is suggested, if clinically indicated. CYTOLOGY STUDY Slides are reviewed. The specimen consists of benign squamous cells, urothelial cells, degenerated cells, numerous neutrophils and numerous organisms consistent with bacteria. CYTOLOGY GROSS Received is 85 ml of cloudy brown fluid labeled with the patient's name and and designated per the requisition as urine. Submitted for cytology preparation. 03/21/18 TC:2 CPT: 15244
[2018-03-21 09:09] LABS: Cytology, Body Fluid / CSF SEE PATHOLOGY REPORT
== END ==
PROVIDERS: Visit Provider Family Medicine
DX: N39.0 Urinary tract infection, site not specified (principal); R31.9 Hematuria, unspecified
CPT/HCPCS: 87077; 87086; 87088; 87186; 88108; 88313

== ENCOUNTER 2018-04-10 08:00 | Outpatient (RCR) | payer OTHER, SELFPAY ==
[2018-03-16 00:35] VITALS: BP 160/81; PULSE 77; RESP 20; TEMP 36.3
[2018-03-20 08:12] VITALS: BP 151/70; PULSE 79; RESP 18; TEMP 35.1
--- NOTE | 2018-03-20 09:14 | PCM.WC.PN ---
(1) Ulcer of right foot with fat layer exposed Status: Chronic Current Visit: Yes Code(s): L97.512 - Non-pressure chronic ulcer of other part of right foot with fat layer exposed (2) Type 2 diabetes mellitus with diabetic polyneuropathy Status: Chronic Current Visit: Yes Code(s): E11.42 - Type 2 diabetes mellitus with diabetic polyneuropathy (3) Hallux limitus Status: Chronic Current Visit: Yes Qualifiers: Code(s): M20.5X9 - Other deformities of toe(s) (acquired), unspecified foot (4) PAD (peripheral artery disease) Status: Chronic Current Visit: Yes Code(s): I73.9 - Peripheral vascular disease, unspecified Type of Wound Date of Service: 03/20/18 Chief Complaint: right great toe ulcer History of Wound: This 67-year-old male with multiple comorbidities is following up at the wound care center for continued treatment of wound to the right hallux. He denies fever, chill, nausea, vomiting. He denies pain. He wears a CAM walker and reports that he has neuropathy. He tries to keep pressure off of his toe. He refuses tenotomy at this time. Progress of Wound: improving - Physical Exam Vital Signs Temp Pulse Resp BP 95.1 F L 79 18 151/70 H 03/20/18 08:12 03/20/18 08:12 03/20/18 08:12 03/20/18 08:12 General: Alert, Oriented x3, Cooperative Extremities: No cyanosis, No edema, Capillary Refill Less than 3 Seconds, No Calf Tenderness - Negative Candice and Vera, Diminished Peripheral Pulses, Edema - Very mild, - - Decreased flow to first metatarsophalangeal joint range of motion right foot Skin: Ulcer/ Wound - No purulence, no erythema, streaking, no odor, no infection. The plantar medial border has peripheral epithelial migration noted. The peripheral skin is atrophic and hairless. There is no exposed capsular bone noted in the wound bed is granular Wound Measurements and Assessment WC - Nurse 1 - General Ulcer Measurement Start: 03/20/18 08:12 Freq: Status: Active Protocol: Activity Type Activity Date Activity User E-Sign Co-Sign Detail Recorded Client Recorded Date Recorded By Document 03/20/18 08:12 [email or web address] [id number] 03/20/18 08:15 [email or web address] 03/20/18 08:12 Wound Center Nurse 1 [Ulcer Assessment] 3-right hallux -Combined with other wound No -Current Size (cm) - Length 1.0 -Current Size (cm) - Width 0.4 -Current Size (cm) - Depth 0.3 -Total Square Cm 0.40 -Photo Taken No -Epithelialization None Present -Tunneling No -Undermining/Tunneling No -Circular Undermining No -Exudate Amt Small (1-33%) -Exudate Type Serosanguineous -Wound Margin Flat & Intact -Granulation Amt Small (1-33%) -Granulation Quality Pale -Slough/Fibrin Yes -Necrosis Amt Medium (34-66%) -Necrotic Tissue Type Adherent Slough -Structure Exposed N/A -Texture (Maxine-wound Skin Appearance) Assessed Callus Localized Edema -Moisture (Maxine-wound Skin Appearance Assessed ) Dry/Scaly -Color (Maxine-wound Skin Appearance) Assessed -Temperature (Maxine-wound Skin No Abnormality Appearance) (Pt Warm) -Tenderness on Palpation (Maxine-wound No Skin Appearance) -Ulcer Cleansing Rinsed/ Irrigated with Saline -Foul Odor after Cleansing No -Anesthetic Used 4% Lidocaine Solution [Edema Assessment] -Lower Limb Edema Present Yes -Right Calf (cm) 44.4 -Right Ankle (cm) 25.8 WC - Nurse 2 - General Ulcer CM Notes Start: 03/20/18 08:12 Freq: Status: Active Protocol: Activity Type Activity Date Activity User E-Sign Co-Sign Detail Recorded Client Recorded Date Recorded By Document 03/20/18 08:24 [id number] 03/20/18 08:25 03/20/18 08:24 Wound Center Nurse 2 [Procedure/Treatment] 3-right hallux -Time 08:24 -Correct Patient Yes -Correct Side, Site, Position Yes -Correct Procedure Yes -Procedure Performed Yes -Type of Procedure Debridement -Clinical Debridement Subcutaneous -Post Debridement Size (cm) - Length 1.1 -Post Debridement Size (cm) - Width 0.5 -Post Debridement Size (cm) - Depth 0.3 -Total Square Cm 0.55 -Wound/Ulcer Outcome Not Healed -Ulcer Cleansing Rinsed/ Irrigated with Saline -Foul Odor after Cleansing No -Bioengineered Tissue No -Topical Lidocaine (%) 4 -Bleeding Controlled with Pressure -Treatment Response Procedure Tolerated Well [See Physician Procedure note for Specifics] Pain Scale: 0-10 Numeric [Pain] -Is Patient Pain Free? Yes Musculoskeletal: No Tenderness to Palpation of Joints or Extremities, Muscle Wasting Neurological: - - Lack of epicritic sensation light touch Psych/Mental Status: Normal Affect, Appropriate Debridement Note Post-Debridement Measurements/Treatment WC - Nurse 2 - General Ulcer CM Notes Start: 03/20/18 08:12 Freq: Status: Active Protocol: Activity Type Activity Date Activity User E-Sign Co-Sign Detail Recorded Client Recorded Date Recorded By Document 03/20/18 08:24 [id number] 03/20/18 08:25 03/20/18 08:24 Wound Center Nurse 2 3-right hallux -Time 08:24 -Correct Patient Yes -Correct Side, Site, Position Yes -Correct Procedure Yes -Procedure Performed Yes -Type of Procedure Debridement -Clinical Debridement Subcutaneous -Post Debridement Size (cm) - Length 1.1 -Post Debridement Size (cm) - Width 0.5 -Post Debridement Size (cm) - Depth 0.3 -Total Square Cm 0.55 -Wound/Ulcer Outcome Not Healed -Ulcer Cleansing Rinsed/ Irrigated with Saline -Foul Odor after Cleansing No -Bioengineered Tissue No -Topical Lidocaine (%) 4 -Bleeding Controlled with Pressure -Treatment Response Procedure Tolerated Well Pain Scale: 0-10 Numeric Is Patient Pain Free? Yes Wound debrided: plantar medial hallux Laterality: Right Wound Grade/Stage: grade 1 Type of Debridement: Excisional debridement Anesthesia Used: 4% Lidocaine Solution Depth: in the subcutaneous layer Percentage of wound debrided: 100 Instrument Used: #15 blade Tissue Removed: fibrous, devitalized subcutaneous, biofilm, slough, callous Severity: Fat Layer Exposed Amount of bleeding with debridement: Mild Bleeding Controlled with: Pressure Patient tolerated procedure well Assessment/Plan Active Problems (Last Updated 08/30/17 @ 07:15 by Ranjana Tam) Ulcer of right foot with fat layer exposed (Chronic) Type 2 diabetes mellitus with diabetic polyneuropathy (Chronic) Hallux limitus (Chronic) PAD (peripheral artery disease) (Chronic) Assessment: 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 Peripheral vascular disease. Diabetes with neuropathy. Malnutrition suspected. Delayed healing. hallux limitus right Plan: I reviewed and discussed his case. Debridement was performed as noted in the clinical panel. Improved nutrition has been recommended. Offloading measures are to be continued. Additional felt offloading pad was incorporated to the cam walker today; he previously had dual density offloading Plastizote which has compressed since he has been using it as advised. To continue to wear his cam walker with multi-density offloading pockets on the right foot. I also recommended surgical offloading with a percutaneous tenotomy of the flexor hallucis longus tendon and he defers at this time. I discussed the indications benefits risks complications and anticipated healing course. The goal would be to improve the first metatarsophalangeal joint range of motion to decrease pressure this ulcer site. Debridement was performed as noted in the clinical panel. He completed a course of epifix and doyle was applied today; to change daily at home. Pressure was applied to maintain hemostasis and he tolerated this well. Prior authorization will be initiated for additional advanced wound care product, nushield. He already has a shower bag. I reviewed and discussed his case and care plan. He was reassured there are no local signs of infection. He had biphasic and monophasic waveforms in the right lower extremity with an ankle-brachial index of 0.68. The toe brachial index was not calculated due to noncompressible status. Dr. Borges with vascular surgery did evaluate this patient during his last admission. Intervention will be considered if there are any delays in healing or further status change. He understands he is still at continued risk for further limb loss and illness. He was advised to maintain proper glycemic control and nutritional supplementation to optimize healing. Patient was educated on all signs and symptoms of local and systemic infection and he was instructed to go to the emergency room immediately should he notice any of these. To return to clinic in 1 week or call sooner if he has any questions.
[2018-03-27 08:13] VITALS: BP 144/73; PULSE 75; RESP 18; TEMP 36.1
--- NOTE | 2018-03-27 09:03 | PN.PCM_ITS ---
(1) Ulcer of right foot with fat layer exposed Status: Chronic Current Visit: Yes Code(s): L97.512 - Non-pressure chronic ulcer of other part of right foot with fat layer exposed (2) Type 2 diabetes mellitus with diabetic polyneuropathy Status: Chronic Current Visit: Yes Code(s): E11.42 - Type 2 diabetes mellitus with diabetic polyneuropathy (3) Hallux limitus Status: Chronic Current Visit: Yes Qualifiers: Code(s): M20.5X9 - Other deformities of toe(s) (acquired), unspecified foot (4) PAD (peripheral artery disease) Status: Chronic Current Visit: Yes Code(s): I73.9 - Peripheral vascular disease, unspecified Type of Wound Date of Service: 03/27/18 Chief Complaint: right great toe ulcer History of Wound: This 67-year-old male with multiple comorbidities is following up at the wound care center for continued treatment of wound to the right hallux. He denies fever, chill, nausea, vomiting. He denies pain. He wears a CAM walker and reports that he has neuropathy. He tries to keep pressure off of his toe. He refuses tenotomy at this time. Progress of Wound: stable - Physical Exam Vital Signs Temp Pulse Resp BP 97 F L 75 18 144/73 H 03/27/18 08:13 03/27/18 08:13 03/27/18 08:13 03/27/18 08:13 General: Alert, Oriented x3, Cooperative Extremities: No cyanosis, Capillary Refill Less than 3 Seconds, No Calf Tenderness, Diminished Peripheral Pulses Skin: Ulcer/ Wound - No purulence, no erythema, streaking, no odor, no infection. The peripheral skin is atrophic Wound Measurements and Assessment WC - Nurse 1 - General Ulcer Measurement Start: 03/20/18 08:12 Freq: Status: Active Protocol: Activity Type Activity Date Activity User E-Sign Co-Sign Detail Recorded Client Recorded Date Recorded By Document 03/27/18 08:13 RB [id number] 03/27/18 08:16 RB 03/27/18 08:13 Wound Center Nurse 1 [Ulcer Assessment] 3-right hallux -Combined with other wound No -Current Size (cm) - Length 1.6 -Current Size (cm) - Width 0.8 -Current Size (cm) - Depth 0.3 -Total Square Cm 1.28 -Photo Taken No -Tunneling No -Undermining/Tunneling No -Circular Undermining No -Classification - Thickness Full Thickness without Exposed Support Structure -Exudate Amt Small (1-33%) -Exudate Type Serosanguineous -Wound Margin Thickened -Granulation Amt Medium (34-66%) -Granulation Quality [place] -Slough/Fibrin Yes -Necrosis Amt Medium (34-66%) -Necrotic Tissue Type Adherent Slough -Structure Exposed Fat Layer Exposed -Texture (Maxine-wound Skin Appearance) Assessed Callus -Moisture (Maxine-wound Skin Appearance Assessed ) -Color (Maxine-wound Skin Appearance) Assessed -Temperature (Maxine-wound Skin No Abnormality Appearance) (Pt Warm) -Tenderness on Palpation (Maxine-wound No Skin Appearance) -Ulcer Cleansing Rinsed/ Irrigated with Saline -Foul Odor after Cleansing No -Anesthetic Used 5% Lidocaine Gel [Edema Assessment] -Lower Limb Edema Present Yes -Right Calf (cm) 45.5 -Right Ankle (cm) 26 WC - Nurse 2 - General Ulcer CM Notes Start: 03/20/18 08:12 Freq: Status: Active Protocol: Activity Type Activity Date Activity User E-Sign Co-Sign Detail Recorded Client Recorded Date Recorded By Document 03/27/18 08:27 [id number] 03/27/18 08:35 03/27/18 08:27 Wound Center Nurse 2 [Procedure/Treatment] 3-right hallux -Time 08:35 -Correct Patient Yes -Correct Side, Site, Position Yes -Correct Procedure Yes -Procedure Performed Yes -Type of Procedure Debridement -Clinical Debridement Subcutaneous -Post Debridement Size (cm) - Length 1.5 -Post Debridement Size (cm) - Width 0.6 -Post Debridement Size (cm) - Depth 0.3 -Total Square Cm 0.90 -Wound/Ulcer Outcome Not Healed -Ulcer Cleansing Rinsed/ Irrigated with Saline -Foul Odor after Cleansing No -Bioengineered Tissue No -Topical Lidocaine (%) 5 -Bleeding Controlled with Pressure -Treatment Response Procedure Tolerated Well [See Physician Procedure note for Specifics] Pain Scale: 0-10 Numeric [Pain] -Is Patient Pain Free? Yes Musculoskeletal: No Tenderness to Palpation of Joints or Extremities, Muscle Wasting, - - Decreased loaded first metatarsal phalangeal joint range of motion Neurological: - - Lack of epicritic sensation light touch Psych/Mental Status: Normal Affect, Appropriate Debridement Note Post-Debridement Measurements/Treatment WC - Nurse 2 - General Ulcer CM Notes Start: 03/20/18 08:12 Freq: Status: Active Protocol: Activity Type Activity Date Activity User E-Sign Co-Sign Detail Recorded Client Recorded Date Recorded By Document 03/20/18 08:24 [id number] 03/20/18 08:25 TM Document 03/27/18 08:27 [id number] 03/27/18 08:35 TM 03/20/18 03/27/18 08:24 08:27 Wound Center Nurse 2 3-right hallux -Time 08:24 08:35 -Correct Patient Yes Yes -Correct Side, Site, Position Yes Yes -Correct Procedure Yes Yes -Procedure Performed Yes Yes -Type of Procedure Debridement Debridement -Clinical Debridement Subcutaneous Subcutaneous -Post Debridement Size (cm) - Length 1.1 1.5 -Post Debridement Size (cm) - Width 0.5 0.6 -Post Debridement Size (cm) - Depth 0.3 0.3 -Total Square Cm 0.55 0.90 -Wound/Ulcer Outcome Not Healed Not Healed -Ulcer Cleansing Rinsed/ Rinsed/ Irrigated with Irrigated with Saline Saline -Foul Odor after Cleansing No No -Bioengineered Tissue No No -Topical Lidocaine (%) 4 5 -Bleeding Controlled with Pressure Pressure -Treatment Response Procedure Procedure Tolerated Well Tolerated Well Pain Scale: 0-10 Numeric Is Patient Pain Free? Yes Yes Wound debrided: plantar medial hallux Laterality: Right Type of Debridement: Excisional debridement Anesthesia Used: 4% Lidocaine Solution Depth: in the subcutaneous layer Percentage of wound debrided: 100 Instrument Used: #15 blade Tissue Removed: fibrous, devitalized subcutaneous, biofilm, slough Severity: Fat Layer Exposed Amount of bleeding with debridement: Mild Bleeding Controlled with: Pressure Patient tolerated procedure well Assessment/Plan Active Problems (Last Updated 08/30/17 @ 07:15 by Ranjana Tam) Ulcer of right foot with fat layer exposed (Chronic) Type 2 diabetes mellitus with diabetic polyneuropathy (Chronic) Hallux limitus (Chronic) PAD (peripheral artery disease) (Chronic) Assessment: 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 Peripheral vascular disease. Diabetes with neuropathy. Malnutrition suspected. Delayed healing. hallux limitus right Plan: I reviewed and discussed his case. Debridement was performed as noted in the clinical panel. Improved nutrition has been recommended. Offloading measures are to be continued. Additional felt offloading pad was incorporated to the cam walker previously; he previously had dual density offloading Plastizote which has compressed since he has been using it as advised. To continue to wear his cam walker with multi-density offloading pockets on the right foot. I also recommended surgical offloading with a percutaneous tenotomy of the flexor hallucis longus tendon and he defers at this time. I discussed the indications benefits risks complications and anticipated healing course. The goal would be to improve the first metatarsophalangeal joint range of motion to decrease pressure this ulcer site. Debridement was performed as noted in the clinical panel. He completed a course of epifix and doyle was applied today; to change daily at home. Pressure was applied to maintain hemostasis and he tolerated this well. Prior authorization will be initiated for additional advanced wound care product, nushield. He already has a shower bag. I reviewed and discussed his case and care plan. He was reassured there are no local signs of infection. He had biphasic and monophasic waveforms in the right lower extremity with an ankle-brachial index of 0.68. The toe brachial index was not calculated due to noncompressible status. Dr. Borges with vascular surgery did evaluate this patient during his last admission. Intervention will be considered if there are any delays in healing or further status change. He understands he is still at continued risk for further limb loss and illness. He was advised to maintain proper glycemic control and nutritional supplementation to optimize healing. Patient was educated on all signs and symptoms of local and systemic infection and he was instructed to go to the emergency room immediately should he notice any of these. He was placed on complex care plan due to inability proceed with recommended procedures, and his delayed healing is noted. To return to clinic in 1 week or call sooner if he has any questions.
[2018-04-03 08:04] VITALS: BP 143/76; PULSE 71; RESP 18; TEMP 35.5
--- NOTE | 2018-04-03 09:57 | PN.PCM_ITS ---
(1) Ulcer of right foot with fat layer exposed Status: Chronic Current Visit: Yes Code(s): L97.512 - Non-pressure chronic ulcer of other part of right foot with fat layer exposed (2) Type 2 diabetes mellitus with diabetic polyneuropathy Status: Chronic Current Visit: Yes Code(s): E11.42 - Type 2 diabetes mellitus with diabetic polyneuropathy (3) Hallux limitus Status: Chronic Current Visit: Yes Qualifiers: Code(s): M20.5X9 - Other deformities of toe(s) (acquired), unspecified foot (4) PAD (peripheral artery disease) Status: Chronic Current Visit: Yes Code(s): I73.9 - Peripheral vascular disease, unspecified Type of Wound Date of Service: 04/03/18 Chief Complaint: right great toe ulcer History of Wound: This 67-year-old male with multiple comorbidities is following up at the wound care center for continued treatment of wound to the right hallux. He denies fever, chill, nausea, vomiting. He denies pain. He wears a CAM walker and reports that he has neuropathy. He tries to keep pressure off of his toe. He refuses tenotomy at this time. Progress of Wound: stable - Physical Exam Vital Signs Temp Pulse Resp BP 96 F L 71 18 143/76 H 04/03/18 08:04 04/03/18 08:04 04/03/18 08:04 04/03/18 08:04 General: Alert, Oriented x3, Cooperative Extremities: No cyanosis, Capillary Refill Less than 3 Seconds, No Calf Tenderness - Negative Candice and Vera bilateral, Diminished Peripheral Pulses, Edema - Mild, - - Decreased first metatarsal phalangeal joint range of motion Skin: Ulcer/ Wound - No purulence, no erythema, streaking, odor, no acute infection Wound Measurements and Assessment WC - Nurse 1 - General Ulcer Measurement Start: 03/20/18 08:12 Freq: Status: Active Protocol: Activity Type Activity Date Activity User E-Sign Co-Sign Detail Recorded Client Recorded Date Recorded By Document 04/03/18 08:04 RB [id number] 04/03/18 08:12 RB 04/03/18 08:04 Wound Center Nurse 1 [Ulcer Assessment] 3-right hallux -Combined with other wound No -Current Size (cm) - Length 1.3 -Current Size (cm) - Width 0.4 -Current Size (cm) - Depth 0.3 -Total Square Cm 0.52 -Photo Taken No -Tunneling No -Undermining/Tunneling No -Circular Undermining No -Exudate Amt Small (1-33%) -Exudate Type Serosanguineous -Wound Margin Thickened -Granulation Amt Medium (34-66%) -Granulation Quality [place] -Slough/Fibrin Yes -Necrosis Amt Small (1-33%) -Necrotic Tissue Type Adherent Slough -Structure Exposed N/A -Texture (Maxine-wound Skin Appearance) Callus -Moisture (Maxine-wound Skin Appearance Assessed ) -Color (Maxine-wound Skin Appearance) Assessed -Temperature (Maxine-wound Skin No Abnormality Appearance) (Pt Warm) -Tenderness on Palpation (Maxine-wound No Skin Appearance) -Ulcer Cleansing Rinsed/ Irrigated with Saline -Foul Odor after Cleansing No -Anesthetic Used 4% Lidocaine Solution [Edema Assessment] -Lower Limb Edema Present Yes -Right Calf (cm) 45.5 -Right Ankle (cm) 25.5 - Nurse 2 - General Ulcer CM Notes Start: 03/20/18 08:12 Freq: Status: Active Protocol: Activity Type Activity Date Activity User E-Sign Co-Sign Detail Recorded Client Recorded Date Recorded By Document 04/03/18 08:19 [id number] 04/03/18 08:21 [email or web address] 04/03/18 08:19 Wound Center Nurse 2 [Procedure/Treatment] 3-right hallux -Time 08:20 -Correct Patient Yes -Correct Side, Site, Position Yes -Correct Procedure Yes -Procedure Performed Yes -Type of Procedure Debridement -Clinical Debridement Subcutaneous -Post Debridement Size (cm) - Length 1.6 -Post Debridement Size (cm) - Width 0.9 -Post Debridement Size (cm) - Depth 0.2 -Total Square Cm 1.44 -Wound/Ulcer Outcome Not Healed -Ulcer Cleansing Rinsed/ Irrigated with Saline -Foul Odor after Cleansing No -Bioengineered Tissue No -Bleeding Controlled with Pressure -Treatment Response Procedure Tolerated Well [See Physician Procedure note for Specifics] Pain Scale: 0-10 Numeric [Pain] -Is Patient Pain Free? Yes Musculoskeletal: No Tenderness to Palpation of Joints or Extremities, Muscle Wasting Neurological: - - Lack of epicritic sensation light touch Psych/Mental Status: Normal Affect, Appropriate Debridement Note Post-Debridement Measurements/Treatment - Nurse 2 - General Ulcer CM Notes Start: 03/20/18 08:12 Freq: Status: Active Protocol: Activity Type Activity Date Activity User E-Sign Co-Sign Detail Recorded Client Recorded Date Recorded By Document 03/20/18 08:24 [id number] 03/20/18 08:25 TM Document 03/27/18 08:27 [email or web address] [id number] 03/27/18 08:35 TM Document 04/03/18 08:19 [id number] 04/03/18 08:21 03/20/18 03/27/18 04/03/18 08:24 08:27 08:19 Wound Center Nurse 2 3-right hallux -Time 08:24 08:35 08:20 -Correct Patient Yes Yes Yes -Correct Side, Site, Position Yes Yes Yes -Correct Procedure Yes Yes Yes -Procedure Performed Yes Yes Yes -Type of Procedure Debridement Debridement Debridement -Clinical Debridement Subcutaneous Subcutaneous Subcutaneous -Post Debridement Size (cm) - Length 1.1 1.5 1.6 -Post Debridement Size (cm) - Width 0.5 0.6 0.9 -Post Debridement Size (cm) - Depth 0.3 0.3 0.2 -Total Square Cm 0.55 0.90 1.44 -Wound/Ulcer Outcome Not Healed Not Healed Not Healed -Ulcer Cleansing Rinsed/ Rinsed/ Rinsed/ Irrigated with Irrigated with Irrigated with Saline Saline Saline -Foul Odor after Cleansing No No No -Bioengineered Tissue No No No -Topical Lidocaine (%) 4 5 -Bleeding Controlled with Pressure Pressure Pressure -Treatment Response Procedure Procedure Procedure Tolerated Well Tolerated Well Tolerated Well Pain Scale: 0-10 Numeric Is Patient Pain Free? Yes Yes Yes Wound debrided: plantar medial hallux Laterality: Right Wound Grade/Stage: grade 1 Type of Debridement: Excisional debridement Anesthesia Used: 4% Lidocaine Solution Depth: in the subcutaneous layer Percentage of wound debrided: 100 Instrument Used: #15 blade Tissue Removed: fibrous, devitalized subcutaneous, biofilm, slough Severity: Fat Layer Exposed Amount of bleeding with debridement: Mild Bleeding Controlled with: Pressure Patient tolerated procedure well Assessment/Plan Active Problems (Last Updated 08/30/17 @ 07:15 by Ranjana Tam) Ulcer of right foot with fat layer exposed (Chronic) Type 2 diabetes mellitus with diabetic polyneuropathy (Chronic) Hallux limitus (Chronic) PAD (peripheral artery disease) (Chronic) Assessment: 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 Peripheral vascular disease. Diabetes with neuropathy. Malnutrition suspected. Delayed healing. hallux limitus right Plan: I reviewed and discussed his case. Debridement was performed as noted in the clinical panel. Improved nutrition has been recommended. Offloading measures are to be continued. Additional felt offloading pad was incorporated to the cam walker previously; he previously had dual density offloading Plastizote which has compressed since he has been using it as advised. To continue to wear his cam walker with multi-density offloading pockets on the right foot. I also recommended surgical offloading with a percutaneous tenotomy of the flexor hallucis longus tendon and he defers at this time. I discussed the indications benefits risks complications and anticipated healing course. The goal would be to improve the first metatarsophalangeal joint range of motion to decrease pressure this ulcer site. Debridement was performed as noted in the clinical panel. He completed a course of epifix and doyle was applied today; to change daily at home. He has completed a course of advanced skin substitute product, epi fix. I recommend Regranex for application at home 12 hours daily to optimize healing; prior authroization will be initiated. Pressure was applied to maintain hemostasis and he tolerated this well. He already has a shower bag. I reviewed and discussed his case and care plan. He was reassured there are no local signs of infection. He had biphasic and monophasic waveforms in the right lower extremity with an ankle-brachial index of 0.68. The toe brachial index was not calculated due to noncompressible status. Dr. Borges with vascular surgery did evaluate this patient during his last admission. Intervention will be considered if there are any delays in healing or further status change. He understands he is still at continued risk for further limb loss and illness. He was advised to maintain proper glycemic control and nutritional supplementation to optimize healing. Patient was educated on all signs and symptoms of local and systemic infection and he was instructed to go to the emergency room immediately should he notice any of these. He was placed on complex care plan due to inability proceed with recommended procedures, and his delayed healing is noted. To return to clinic in 1 week or call sooner if he has any questions. Updated work note was requested and he will be called when this is completed.
[2018-04-10 08:18] VITALS: BP 149/85; PULSE 77; RESP 18; TEMP 36.4
--- NOTE | 2018-04-10 08:57 | PCM.WC.PN ---
(1) Ulcer of right foot with fat layer exposed Status: Chronic Current Visit: Yes Code(s): L97.512 - Non-pressure chronic ulcer of other part of right foot with fat layer exposed (2) Type 2 diabetes mellitus with diabetic polyneuropathy Status: Chronic Current Visit: Yes Code(s): E11.42 - Type 2 diabetes mellitus with diabetic polyneuropathy (3) Hallux limitus Status: Chronic Current Visit: Yes Qualifiers: Code(s): M20.5X9 - Other deformities of toe(s) (acquired), unspecified foot (4) PAD (peripheral artery disease) Status: Chronic Current Visit: Yes Code(s): I73.9 - Peripheral vascular disease, unspecified Type of Wound Date of Service: 04/10/18 Chief Complaint: right great toe ulcer History of Wound: This 67-year-old male with multiple comorbidities is following up at the wound care center for continued treatment of wound to the right hallux. He denies fever, chill, nausea, vomiting. He denies pain. He wears a CAM walker and reports that he has neuropathy. He tries to keep pressure off of his toe. He refuses tenotomy at this time. He was approved for Regranex, advance wound care product, and obtain this via mail yesterday. Progress of Wound: stable - Physical Exam Vital Signs Temp Pulse Resp BP 97.5 F L 77 18 149/85 H 04/10/18 08:18 04/10/18 08:18 04/10/18 08:18 04/10/18 08:18 General: Alert, Oriented x3, Cooperative HEENT: Atraumatic Extremities: No cyanosis, Capillary Refill Less than 3 Seconds, No Calf Tenderness, Diminished Peripheral Pulses, Edema - Mild, - - Decreased loading first metatarsophalangeal joint range of motion noted Skin: Ulcer/ Wound - No purulence, no erythema, streaking, no odor, no infection Wound Measurements and Assessment WC - Nurse 1 - General Ulcer Measurement Start: 03/20/18 08:12 Freq: Status: Active Protocol: Activity Type Activity Date Activity User E-Sign Co-Sign Detail Recorded Client Recorded Date Recorded By Document 04/10/18 08:18 RB [id number] 04/10/18 08:20 RB 04/10/18 08:18 Wound Center Nurse 1 [Ulcer Assessment] 3-right hallux -Combined with other wound No -Current Size (cm) - Length 1 -Current Size (cm) - Width 0.4 -Current Size (cm) - Depth 0.2 -Total Square Cm 0.4 -Photo Taken No -Tunneling No -Undermining/Tunneling No -Circular Undermining No -Exudate Amt Small (1-33%) -Exudate Type Serosanguineous -Wound Margin Thickened -Granulation Amt Large (67-100%) -Granulation Quality [place] -Slough/Fibrin Yes -Necrosis Amt Small (1-33%) -Necrotic Tissue Type Adherent Slough -Structure Exposed N/A -Texture (Maxine-wound Skin Appearance) Assessed Callus -Moisture (Maxine-wound Skin Appearance Assessed ) -Color (Maxine-wound Skin Appearance) Assessed -Temperature (Maxine-wound Skin No Abnormality Appearance) (Pt Warm) -Tenderness on Palpation (Maxine-wound No Skin Appearance) -Ulcer Cleansing Rinsed/ Irrigated with Saline -Foul Odor after Cleansing No -Anesthetic Used 4% Lidocaine Solution [Edema Assessment] -Lower Limb Edema Present Yes -Right Calf (cm) 47 -Right Ankle (cm) 26.5 WC - Nurse 2 - General Ulcer CM Notes Start: 03/20/18 08:12 Freq: Status: Active Protocol: Activity Type Activity Date Activity User E-Sign Co-Sign Detail Recorded Client Recorded Date Recorded By Document 04/10/18 08:30 [email or web address] [id number] 04/10/18 08:31 AISHWARYA 04/10/18 08:30 Wound Center Nurse 2 [Procedure/Treatment] 3-right hallux -Time 08:30 -Correct Patient Yes -Correct Side, Site, Position Yes -Correct Procedure Yes -Procedure Performed Yes -Type of Procedure Debridement -Clinical Debridement Subcutaneous -Post Debridement Size (cm) - Length 1.3 -Post Debridement Size (cm) - Width 0.8 -Post Debridement Size (cm) - Depth 0.2 -Total Square Cm 1.04 -Wound/Ulcer Outcome Not Healed -Ulcer Cleansing Rinsed/ Irrigated with Saline -Foul Odor after Cleansing No -Bioengineered Tissue No -Bleeding Controlled with Pressure -Treatment Response Procedure Tolerated Well [See Physician Procedure note for Specifics] Pain Scale: 0-10 Numeric [Pain] -Is Patient Pain Free? Yes Musculoskeletal: No Tenderness to Palpation of Joints or Extremities, Muscle Wasting Neurological: - - Lack of epicritic sensation light touch Psych/Mental Status: Normal Affect, Appropriate Debridement Note Post-Debridement Measurements/Treatment WC - Nurse 2 - General Ulcer CM Notes Start: 03/20/18 08:12 Freq: Status: Active Protocol: Activity Type Activity Date Activity User E-Sign Co-Sign Detail Recorded Client Recorded Date Recorded By Document 03/20/18 08:24 TM [id number] 03/20/18 08:25 TM Document 03/27/18 08:27 [id number] 03/27/18 08:35 TM Document 04/03/18 08:19 [id number] 04/03/18 08:21 Document 04/10/18 08:30 [id number] 04/10/18 08:31 03/20/18 03/27/18 04/03/18 08:24 08:27 08:19 Wound Center Nurse 2 3-right hallux -Time 08:24 08:35 08:20 -Correct Patient Yes Yes Yes -Correct Side, Site, Position Yes Yes Yes -Correct Procedure Yes Yes Yes -Procedure Performed Yes Yes Yes -Type of Procedure Debridement Debridement Debridement -Clinical Debridement Subcutaneous Subcutaneous Subcutaneous -Post Debridement Size (cm) - Length 1.1 1.5 1.6 -Post Debridement Size (cm) - Width 0.5 0.6 0.9 -Post Debridement Size (cm) - Depth 0.3 0.3 0.2 -Total Square Cm 0.55 0.90 1.44 -Wound/Ulcer Outcome Not Healed Not Healed Not Healed -Ulcer Cleansing Rinsed/ Rinsed/ Rinsed/ Irrigated with Irrigated with Irrigated with Saline Saline Saline -Foul Odor after Cleansing No No No -Bioengineered Tissue No No No -Topical Lidocaine (%) 4 5 -Bleeding Controlled with Pressure Pressure Pressure -Treatment Response Procedure Procedure Procedure Tolerated Well Tolerated Well Tolerated Well Pain Scale: 0-10 Numeric Is Patient Pain Free? Yes Yes Yes 04/10/18 08:30 Wound Center Nurse 2 3-right hallux -Time 08:30 -Correct Patient Yes -Correct Side, Site, Position Yes -Correct Procedure Yes -Procedure Performed Yes -Type of Procedure Debridement -Clinical Debridement Subcutaneous -Post Debridement Size (cm) - Length 1.3 -Post Debridement Size (cm) - Width 0.8 -Post Debridement Size (cm) - Depth 0.2 -Total Square Cm 1.04 -Wound/Ulcer Outcome Not Healed -Ulcer Cleansing Rinsed/ Irrigated with Saline -Foul Odor after Cleansing No -Bioengineered Tissue No -Topical Lidocaine (%) -Bleeding Controlled with Pressure -Treatment Response Procedure Tolerated Well Pain Scale: 0-10 Numeric Is Patient Pain Free? Yes Wound debrided: plantar medial hallux Laterality: Right Type of Debridement: Excisional debridement Anesthesia Used: 4% Lidocaine Solution Depth: in the subcutaneous layer Percentage of wound debrided: 100 Instrument Used: #15 blade Tissue Removed: fibrous, devitalized subcutaneous, biofilm, slough Severity: Fat Layer Exposed Amount of bleeding with debridement: Mild Bleeding Controlled with: Pressure Patient tolerated procedure well Assessment/Plan Active Problems (Last Updated 08/30/17 @ 07:15 by Ranjana Tam) Ulcer of right foot with fat layer exposed (Chronic) Type 2 diabetes mellitus with diabetic polyneuropathy (Chronic) Hallux limitus (Chronic) PAD (peripheral artery disease) (Chronic) Assessment: 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 Peripheral vascular disease. Diabetes with neuropathy. Malnutrition suspected. Delayed healing. hallux limitus right Plan: I reviewed and discussed his case. Debridement was performed as noted in the clinical panel. Improved nutrition has been recommended. Offloading measures are to be continued. Additional felt offloading pad was incorporated to the cam walker previously; he previously had dual density offloading Plastizote which has compressed since he has been using it as advised. To continue to wear his cam walker with multi-density offloading pockets on the right foot. I also recommended surgical offloading with a percutaneous tenotomy of the flexor hallucis longus tendon and he defers at this time. I discussed the indications benefits risks complications and anticipated healing course. The goal would be to improve the first metatarsophalangeal joint range of motion to decrease pressure this ulcer site. Debridement was performed as noted in the clinical panel. He completed a course of epifix and doyle was applied today; to change daily at home. He was preapproved for Regranex and he was advised to change this daily as well; this will stay in place for approximately 12 hours. He already has a shower bag. I reviewed and discussed his case and care plan. He was reassured there are no local signs of infection. He had biphasic and monophasic waveforms in the right lower extremity with an ankle-brachial index of 0.68. The toe brachial index was not calculated due to noncompressible status. Dr. Borges with vascular surgery did evaluate this patient during his last admission. Intervention will be considered if there are any delays in healing or further status change. He understands he is still at continued risk for further limb loss and illness. He was advised to maintain proper glycemic control and nutritional supplementation to optimize healing. Patient was educated on all signs and symptoms of local and systemic infection and he was instructed to go to the emergency room immediately should he notice any of these. He was placed on complex care plan due to inability proceed with recommended procedures, and his delayed healing is noted. To return to clinic in 1 week or call sooner if he has any questions.
--- NOTE | 2018-04-10 09:01 | PN.PCM_ITS ---
(1) Ulcer of right foot with fat layer exposed Status: Chronic Current Visit: Yes Code(s): L97.512 - Non-pressure chronic ulcer of other part of right foot with fat layer exposed (2) Type 2 diabetes mellitus with diabetic polyneuropathy Status: Chronic Current Visit: Yes Code(s): E11.42 - Type 2 diabetes mellitus with diabetic polyneuropathy (3) Hallux limitus Status: Chronic Current Visit: Yes Qualifiers: Code(s): M20.5X9 - Other deformities of toe(s) (acquired), unspecified foot (4) PAD (peripheral artery disease) Status: Chronic Current Visit: Yes Code(s): I73.9 - Peripheral vascular disease, unspecified Type of Wound Date of Service: 04/10/18 Chief Complaint: right great toe ulcer History of Wound: This 67-year-old male with multiple comorbidities is following up at the wound care center for continued treatment of wound to the right hallux. He denies fever, chill, nausea, vomiting. He denies pain. He wears a CAM walker and reports that he has neuropathy. He tries to keep pressure off of his toe. He refuses tenotomy at this time. He was approved for Regranex, advance wound care product, and obtain this via mail yesterday. Progress of Wound: stable - Physical Exam Vital Signs Temp Pulse Resp BP 97.5 F L 77 18 149/85 H 04/10/18 08:18 04/10/18 08:18 04/10/18 08:18 04/10/18 08:18 General: Alert, Oriented x3, Cooperative HEENT: Atraumatic Extremities: No cyanosis, Capillary Refill Less than 3 Seconds, No Calf Tenderness, Diminished Peripheral Pulses, Edema - Mild, - - Decreased loading first metatarsophalangeal joint range of motion noted Skin: Ulcer/ Wound - No purulence, no erythema, streaking, no odor, no infection Wound Measurements and Assessment WC - Nurse 1 - General Ulcer Measurement Start: 03/20/18 08:12 Freq: Status: Active Protocol: Activity Type Activity Date Activity User E-Sign Co-Sign Detail Recorded Client Recorded Date Recorded By Document 04/10/18 08:18 RB [id number] 04/10/18 08:20 RB 04/10/18 08:18 Wound Center Nurse 1 [Ulcer Assessment] 3-right hallux -Combined with other wound No -Current Size (cm) - Length 1 -Current Size (cm) - Width 0.4 -Current Size (cm) - Depth 0.2 -Total Square Cm 0.4 -Photo Taken No -Tunneling No -Undermining/Tunneling No -Circular Undermining No -Exudate Amt Small (1-33%) -Exudate Type Serosanguineous -Wound Margin Thickened -Granulation Amt Large (67-100%) -Granulation Quality [place] -Slough/Fibrin Yes -Necrosis Amt Small (1-33%) -Necrotic Tissue Type Adherent Slough -Structure Exposed N/A -Texture (Maxine-wound Skin Appearance) Assessed Callus -Moisture (Maxine-wound Skin Appearance Assessed ) -Color (Maxine-wound Skin Appearance) Assessed -Temperature (Maxine-wound Skin No Abnormality Appearance) (Pt Warm) -Tenderness on Palpation (Maxine-wound No Skin Appearance) -Ulcer Cleansing Rinsed/ Irrigated with Saline -Foul Odor after Cleansing No -Anesthetic Used 4% Lidocaine Solution [Edema Assessment] -Lower Limb Edema Present Yes -Right Calf (cm) 47 -Right Ankle (cm) 26.5 WC - Nurse 2 - General Ulcer CM Notes Start: 03/20/18 08:12 Freq: Status: Active Protocol: Activity Type Activity Date Activity User E-Sign Co-Sign Detail Recorded Client Recorded Date Recorded By Document 04/10/18 08:30 [email or web address] [id number] 04/10/18 08:31 AISHWARYA 04/10/18 08:30 Wound Center Nurse 2 [Procedure/Treatment] 3-right hallux -Time 08:30 -Correct Patient Yes -Correct Side, Site, Position Yes -Correct Procedure Yes -Procedure Performed Yes -Type of Procedure Debridement -Clinical Debridement Subcutaneous -Post Debridement Size (cm) - Length 1.3 -Post Debridement Size (cm) - Width 0.8 -Post Debridement Size (cm) - Depth 0.2 -Total Square Cm 1.04 -Wound/Ulcer Outcome Not Healed -Ulcer Cleansing Rinsed/ Irrigated with Saline -Foul Odor after Cleansing No -Bioengineered Tissue No -Bleeding Controlled with Pressure -Treatment Response Procedure Tolerated Well [See Physician Procedure note for Specifics] Pain Scale: 0-10 Numeric [Pain] -Is Patient Pain Free? Yes Musculoskeletal: No Tenderness to Palpation of Joints or Extremities, Muscle Wasting Neurological: - - Lack of epicritic sensation light touch Psych/Mental Status: Normal Affect, Appropriate Debridement Note Post-Debridement Measurements/Treatment WC - Nurse 2 - General Ulcer CM Notes Start: 03/20/18 08:12 Freq: Status: Active Protocol: Activity Type Activity Date Activity User E-Sign Co-Sign Detail Recorded Client Recorded Date Recorded By Document 03/20/18 08:24 TM [id number] 03/20/18 08:25 TM Document 03/27/18 08:27 TM [id number] 03/27/18 08:35 TM Document 04/03/18 08:19 [id number] 04/03/18 08:21 Document 04/10/18 08:30 [id number] 04/10/18 08:31 03/20/18 03/27/18 04/03/18 08:24 08:27 08:19 Wound Center Nurse 2 3-right hallux -Time 08:24 08:35 08:20 -Correct Patient Yes Yes Yes -Correct Side, Site, Position Yes Yes Yes -Correct Procedure Yes Yes Yes -Procedure Performed Yes Yes Yes -Type of Procedure Debridement Debridement Debridement -Clinical Debridement Subcutaneous Subcutaneous Subcutaneous -Post Debridement Size (cm) - Length 1.1 1.5 1.6 -Post Debridement Size (cm) - Width 0.5 0.6 0.9 -Post Debridement Size (cm) - Depth 0.3 0.3 0.2 -Total Square Cm 0.55 0.90 1.44 -Wound/Ulcer Outcome Not Healed Not Healed Not Healed -Ulcer Cleansing Rinsed/ Rinsed/ Rinsed/ Irrigated with Irrigated with Irrigated with Saline Saline Saline -Foul Odor after Cleansing No No No -Bioengineered Tissue No No No -Topical Lidocaine (%) 4 5 -Bleeding Controlled with Pressure Pressure Pressure -Treatment Response Procedure Procedure Procedure Tolerated Well Tolerated Well Tolerated Well Pain Scale: 0-10 Numeric Is Patient Pain Free? Yes Yes Yes 04/10/18 08:30 Wound Center Nurse 2 3-right hallux -Time 08:30 -Correct Patient Yes -Correct Side, Site, Position Yes -Correct Procedure Yes -Procedure Performed Yes -Type of Procedure Debridement -Clinical Debridement Subcutaneous -Post Debridement Size (cm) - Length 1.3 -Post Debridement Size (cm) - Width 0.8 -Post Debridement Size (cm) - Depth 0.2 -Total Square Cm 1.04 -Wound/Ulcer Outcome Not Healed -Ulcer Cleansing Rinsed/ Irrigated with Saline -Foul Odor after Cleansing No -Bioengineered Tissue No -Topical Lidocaine (%) -Bleeding Controlled with Pressure -Treatment Response Procedure Tolerated Well Pain Scale: 0-10 Numeric Is Patient Pain Free? Yes Wound debrided: plantar medial hallux Laterality: Right Type of Debridement: Excisional debridement Anesthesia Used: 4% Lidocaine Solution Depth: in the subcutaneous layer Percentage of wound debrided: 100 Instrument Used: #15 blade Tissue Removed: fibrous, devitalized subcutaneous, biofilm, slough Severity: Fat Layer Exposed Amount of bleeding with debridement: Mild Bleeding Controlled with: Pressure Patient tolerated procedure well Assessment/Plan Active Problems (Last Updated 08/30/17 @ 07:15 by Ranjana Tam) Ulcer of right foot with fat layer exposed (Chronic) Type 2 diabetes mellitus with diabetic polyneuropathy (Chronic) Hallux limitus (Chronic) PAD (peripheral artery disease) (Chronic) Assessment: 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 Peripheral vascular disease. Diabetes with neuropathy. Malnutrition suspected. Delayed healing. hallux limitus right Plan: I reviewed and discussed his case. Debridement was performed as noted in the clinical panel. Improved nutrition has been recommended. Offloading measures are to be continued. Additional felt offloading pad was incorporated to the cam walker previously; he previously had dual density offloading Plastizote which has compressed since he has been using it as advised. To continue to wear his cam walker with multi-density offloading pockets on the right foot. I also recommended surgical offloading with a percutaneous tenotomy of the flexor hallucis longus tendon and he defers at this time. I discussed the indications benefits risks complications and anticipated healing course. The goal would be to improve the first metatarsophalangeal joint range of motion to decrease pressure this ulcer site. Debridement was performed as noted in the clinical panel. He completed a course of epifix and doyle was applied today; to change daily at home. He was preapproved for Regranex and he was advised to change this daily as well; this will stay in place for approximately 12 hours. He already has a shower bag. I reviewed and discussed his case and care plan. He was reassured there are no local signs of infection. He had biphasic and monophasic waveforms in the right lower extremity with an ankle- brachial index of 0.68. The toe brachial index was not calculated due to noncompressible status. Dr. Borges with vascular surgery did evaluate this patient during his last admission. Intervention will be considered if there are any delays in healing or further status change. He understands he is still at continued risk for further limb loss and illness. He was advised to maintain proper glycemic control and nutritional supplementation to optimize healing. Patient was educated on all signs and symptoms of local and systemic infection and he was instructed to go to the emergency room immediately should he notice any of these. He was placed on complex care plan due to inability proceed with recommended procedures, and his delayed healing is noted. To return to clinic in 1 week or call sooner if he has any questions.
== END 2018-04-14 23:59 ==
LOC: WC 08:00
PROVIDERS: Family Provider Family Medicine; PCP Family Medicine; Visit Provider Podiatrist
DX: E11.621 Type 2 diabetes mellitus with foot ulcer (principal); E11.42 Type 2 diabetes mellitus with diabetic polyneuropathy; L97.512 Non-pressure chronic ulcer of other part of right foot with fat layer exposed; E11.51 Type 2 diabetes mellitus with diabetic peripheral angiopathy without gangrene; M20.5X1 Other deformities of toe(s) (acquired), right foot
CPT/HCPCS: 11042

== ENCOUNTER 2018-05-15 08:00 | Outpatient (RCR) | payer OTHER, SELFPAY ==
[2018-04-15 00:31] VITALS: BP 149/85; PULSE 77; RESP 18; TEMP 36.4
[2018-04-16 12:33] VITALS: BP 166/75; PULSE 77; RESP 18; TEMP 35.8
--- NOTE | 2018-04-16 13:30 | PCM.WC.PN ---
(1) Ulcer of right foot with fat layer exposed Status: Chronic Current Visit: Yes Code(s): L97.512 - Non-pressure chronic ulcer of other part of right foot with fat layer exposed (2) Type 2 diabetes mellitus with diabetic polyneuropathy Status: Chronic Current Visit: Yes Code(s): E11.42 - Type 2 diabetes mellitus with diabetic polyneuropathy (3) Hallux limitus Status: Chronic Current Visit: Yes Qualifiers: Code(s): M20.5X9 - Other deformities of toe(s) (acquired), unspecified foot Type of Wound Date of Service: 04/16/18 Chief Complaint: right great toe ulcer History of Wound: This 67-year-old male with multiple comorbidities is following up at the wound care center for continued treatment of wound to the right hallux. He denies fever, chill, nausea, vomiting. He denies pain. He wears a CAM walker and reports that he has neuropathy. He tries to keep pressure off of his toe. He refuses tenotomy at this time. He was approved for Regranex, advance wound care product, and he applies for 12 hours at a time. Progress of Wound: stable - Physical Exam Vital Signs Temp Pulse Resp BP 96.4 F L 77 18 166/75 H 04/16/18 12:33 04/16/18 12:33 04/16/18 12:33 04/16/18 12:33 General: Alert, Oriented x3, Cooperative Extremities: No cyanosis, Capillary Refill Less than 3 Seconds, No Calf Tenderness, Diminished Peripheral Pulses, Edema Skin: Ulcer/ Wound - No purulence, no erythema, streaking, no odor, no infection. Wound bed is granular and fibrous. There is no deep bone or joint exposed, - - Peripheral skin is hairless and atrophic Wound Measurements and Assessment WC - Nurse 1 - General Ulcer Measurement Start: 04/16/18 12:33 Freq: Status: Active Protocol: Activity Type Activity Date Activity User E-Sign Co-Sign Detail Recorded Client Recorded Date Recorded By Document 04/16/18 12:33 [email or web address] [id number] 04/16/18 12:35 AISHWARYA 04/16/18 12:33 Wound Center Nurse 1 [Ulcer Assessment] 3-right hallux -Combined with other wound No -Current Size (cm) - Length 1.1 -Current Size (cm) - Width 0.6 -Current Size (cm) - Depth 0.2 -Total Square Cm 0.66 -Photo Taken No -Epithelialization Medium 34-66% -Tunneling No -Undermining/Tunneling No -Circular Undermining No -Exudate Amt Small (1-33%) -Exudate Type Serosanguineous -Wound Margin Flat & Intact -Granulation Amt Large (67-100%) -Granulation Quality Red -Slough/Fibrin Yes -Necrosis Amt Small (1-33%) -Necrotic Tissue Type Adherent Slough -Structure Exposed N/A -Texture (Maxine-wound Skin Appearance) Assessed Callus -Moisture (Maxine-wound Skin Appearance Assessed ) Dry/Scaly -Color (Maxine-wound Skin Appearance) Assessed -Temperature (Maxine-wound Skin No Abnormality Appearance) (Pt Warm) -Tenderness on Palpation (Maxine-wound No Skin Appearance) -Ulcer Cleansing Rinsed/ Irrigated with Saline -Foul Odor after Cleansing No -Anesthetic Used 4% Lidocaine Solution [Edema Assessment] -Lower Limb Edema Present Yes -Left Calf (cm) 46.0 -Left Ankle (cm) 26.2 WC - Nurse 2 - General Ulcer CM Notes Start: 04/16/18 12:33 Freq: Status: Active Protocol: Activity Type Activity Date Activity User E-Sign Co-Sign Detail Recorded Client Recorded Date Recorded By Document 04/16/18 13:04 [email or web address] [id number] 04/16/18 13:07 AISHWARYA 04/16/18 13:04 Wound Center Nurse 2 [Procedure/Treatment] 3-right hallux -Time 13:06 -Correct Patient Yes -Correct Side, Site, Position Yes -Correct Procedure Yes -Procedure Performed Yes -Type of Procedure Debridement -Clinical Debridement Subcutaneous -Post Debridement Size (cm) - Length 1.2 -Post Debridement Size (cm) - Width 0.5 -Post Debridement Size (cm) - Depth 0.1 -Total Square Cm 0.60 -Wound/Ulcer Outcome Not Healed -Ulcer Cleansing Rinsed/ Irrigated with Saline -Foul Odor after Cleansing No -Bioengineered Tissue No -Bleeding Controlled with Pressure -Treatment Response Procedure Tolerated Well [See Physician Procedure note for Specifics] Pain Scale: 0-10 Numeric [Pain] -Is Patient Pain Free? Yes Musculoskeletal: No Tenderness to Palpation of Joints or Extremities, Muscle Wasting, - - Decreased loaded of first metatarsophalangeal joint Neurological: - - Lack of epicritic sensation light touch foot Psych/Mental Status: Normal Affect, Appropriate Debridement Note Post-Debridement Measurements/Treatment WC - Nurse 2 - General Ulcer CM Notes Start: 04/16/18 12:33 Freq: Status: Active Protocol: Activity Type Activity Date Activity User E-Sign Co-Sign Detail Recorded Client Recorded Date Recorded By Document 04/16/18 13:04 [id number] 04/16/18 13:07 AISHWARYA 04/16/18 13:04 Wound Center Nurse 2 3-right hallux -Time 13:06 -Correct Patient Yes -Correct Side, Site, Position Yes -Correct Procedure Yes -Procedure Performed Yes -Type of Procedure Debridement -Clinical Debridement Subcutaneous -Post Debridement Size (cm) - Length 1.2 -Post Debridement Size (cm) - Width 0.5 -Post Debridement Size (cm) - Depth 0.1 -Total Square Cm 0.60 -Wound/Ulcer Outcome Not Healed -Ulcer Cleansing Rinsed/ Irrigated with Saline -Foul Odor after Cleansing No -Bioengineered Tissue No -Bleeding Controlled with Pressure -Treatment Response Procedure Tolerated Well Pain Scale: 0-10 Numeric Is Patient Pain Free? Yes Wound debrided: plantar medial hallux Laterality: Right Wound Grade/Stage: grade 1 Type of Debridement: Excisional debridement Anesthesia Used: 4% Lidocaine Solution Depth: in the subcutaneous layer Percentage of wound debrided: 100 Instrument Used: #15 blade Tissue Removed: fibrous, devitalized subcutaneous, biofilm, slough Severity: Fat Layer Exposed Amount of bleeding with debridement: Mild Bleeding Controlled with: Pressure Patient tolerated procedure well Assessment/Plan Active Problems (Last Updated 08/30/17 @ 07:15 by Ranjana Tam) Ulcer of right foot with fat layer exposed (Chronic) Type 2 diabetes mellitus with diabetic polyneuropathy (Chronic) Hallux limitus (Chronic) Assessment: 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 Peripheral vascular disease. Diabetes with neuropathy. Malnutrition suspected. Delayed healing. hallux limitus right Plan: I reviewed and discussed his case. Debridement was performed as noted in the clinical panel. Improved nutrition has been recommended. Offloading measures are to be continued. Additional felt offloading pad was incorporated to the cam walker previously; he previously had dual density offloading Plastizote which has compressed since he has been using it as advised. To continue to wear his cam walker with multi-density offloading pockets on the right foot. I also recommended surgical offloading with a percutaneous tenotomy of the flexor hallucis longus tendon and he defers at this time. I discussed the indications benefits risks complications and anticipated healing course. The goal would be to improve the first metatarsophalangeal joint range of motion to decrease pressure this ulcer site. Debridement was performed as noted in the clinical panel. He completed a course of epifix and doyle was applied today; to change daily at home with regranex every 12 hours. He already has a shower bag. I reviewed and discussed his case and care plan. He was reassured there are no local signs of infection. He had biphasic and monophasic waveforms in the right lower extremity with an ankle-brachial index of 0.68. The toe brachial index was not calculated due to noncompressible status. Dr. Borges with vascular surgery did evaluate this patient during his last admission. Intervention will be considered if there are any delays in healing or further status change. He understands he is still at continued risk for further limb loss and illness. He was advised to maintain proper glycemic control and nutritional supplementation to optimize healing. Patient was educated on all signs and symptoms of local and systemic infection and he was instructed to go to the emergency room immediately should he notice any of these. He was placed on complex care plan due to inability proceed with recommended procedures, and his delayed healing is noted. To return to clinic in 1 week or call sooner if he has any questions.
[2018-05-01 08:06] VITALS: BP 129/69; PULSE 77; RESP 18; TEMP 36.1
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
[2018-05-08 08:15] VITALS: BP 164/87; PULSE 76; RESP 18; TEMP 35.6
--- NOTE | 2018-05-08 09:11 | PCM.WC.PN ---
(1) Ulcer of right foot with fat layer exposed Status: Chronic Current Visit: Yes Code(s): L97.512 - Non-pressure chronic ulcer of other part of right foot with fat layer exposed (2) Type 2 diabetes mellitus with diabetic polyneuropathy Status: Chronic Current Visit: Yes Code(s): E11.42 - Type 2 diabetes mellitus with diabetic polyneuropathy (3) Hallux limitus Status: Chronic Current Visit: Yes Qualifiers: Code(s): M20.5X9 - Other deformities of toe(s) (acquired), unspecified foot (4) Delayed wound healing Status: Chronic Current Visit: Yes Code(s): T14.8XXD - Other injury of unspecified body region, subsequent encounter Type of Wound Chief Complaint: right great toe ulcer History of Wound: This 67-year-old male with multiple comorbidities is following up at the wound care center for continued treatment of wound to the right hallux. He denies fever, chill, nausea, vomiting. He denies pain. He wears a CAM walker and reports that he has neuropathy. He tries to keep pressure off of his toe. He change his dressing as advised with both Regranex and Doyle. He is ready to proceed with a surgical consultation paperwork today. Progress of Wound: stable - Physical Exam Vital Signs Temp Pulse Resp BP 96.0 F L 76 18 164/87 H 05/08/18 08:15 05/08/18 08:15 05/08/18 08:15 05/08/18 08:15 General: Alert, Oriented x3, Cooperative Extremities: No cyanosis, Capillary Refill Less than 3 Seconds, No Calf Tenderness - Negative Candice and Vera bilateral, Diminished Peripheral Pulses, Edema Skin: Ulcer/ Wound - No purulence, erythema, streaking, odor, or infection. There is no exposed bone or joint capsule. The peripheral skin is atrophic. Wound Measurements and Assessment WC - Nurse 1 - General Ulcer Measurement Start: 04/16/18 12:33 Freq: Status: Active Protocol: Activity Type Activity Date Activity User E-Sign Co-Sign Detail Recorded Client Recorded Date Recorded By Document 05/08/18 08:15 [email or web address] [id number] 05/08/18 08:16 [email or web address] 05/08/18 08:15 Wound Center Nurse 1 [Ulcer Assessment] 3-right hallux -Combined with other wound No -Current Size (cm) - Length 0.9 -Current Size (cm) - Width 0.5 -Current Size (cm) - Depth 0.3 -Total Square Cm 0.45 -Photo Taken No -Epithelialization None Present -Tunneling No -Undermining/Tunneling No -Circular Undermining No -Exudate Amt Small (1-33%) -Exudate Type Serosanguineous -Wound Margin Flat & Intact -Granulation Amt Medium (34-66%) -Granulation Quality Red -Slough/Fibrin Yes -Necrosis Amt Small (1-33%) -Necrotic Tissue Type Adherent Slough -Structure Exposed N/A -Texture (Maxine-wound Skin Appearance) Assessed Callus -Moisture (Maxine-wound Skin Appearance Assessed ) Dry/Scaly -Color (Maxine-wound Skin Appearance) Assessed -Temperature (Maxine-wound Skin No Abnormality Appearance) (Pt Warm) -Tenderness on Palpation (Maxine-wound No Skin Appearance) -Ulcer Cleansing Rinsed/ Irrigated with Saline -Foul Odor after Cleansing No -Anesthetic Used 4% Lidocaine Solution WC - Nurse 2 - General Ulcer CM Notes Start: 04/16/18 12:33 Freq: Status: Active Protocol: Activity Type Activity Date Activity User E-Sign Co-Sign Detail Recorded Client Recorded Date Recorded By Document 05/08/18 08:28 [id number] 05/08/18 08:29 05/08/18 08:28 Wound Center Nurse 2 [Procedure/Treatment] -Time 08:28 -Correct Patient Yes -Correct Side, Site, Position Yes -Correct Procedure Yes -Procedure Performed Yes -Type of Procedure Debridement -Clinical Debridement Subcutaneous -Post Debridement Size (cm) - Length 1.0 -Post Debridement Size (cm) - Width 0.6 -Post Debridement Size (cm) - Depth 0.3 -Total Square Cm 0.60 -Wound/Ulcer Outcome Not Healed -Ulcer Cleansing Rinsed/ Irrigated with Saline -Foul Odor after Cleansing No -Bioengineered Tissue No -Topical Lidocaine (%) 4 -Bleeding Controlled with Pressure -Treatment Response Procedure Tolerated Well [See Physician Procedure note for Specifics] Pain Scale: 0-10 Numeric [Pain] -Is Patient Pain Free? Yes Musculoskeletal: No Tenderness to Palpation of Joints or Extremities, Muscle Wasting, - - Decreased noted first metatarsophalangeal joint range of motion right foot Neurological: - - Lack of epicritic sensation light touch consistent with neuropathy right foot Psych/Mental Status: Normal Affect, Appropriate Debridement Note Post-Debridement Measurements/Treatment WC - Nurse 2 - General Ulcer CM Notes Start: 04/16/18 12:33 Freq: Status: Active Protocol: Activity Type Activity Date Activity User E-Sign Co-Sign Detail Recorded Client Recorded Date Recorded By Document 04/16/18 13:04 [id number] 04/16/18 13:07 JF Document 05/01/18 08:35 [id number] 05/01/18 08:38 JF Document 05/08/18 08:28 [id number] 05/08/18 08:29 TM 04/16/18 05/01/18 05/08/18 13:04 08:35 08:28 Wound Center Nurse 2 3-right hallux -Time 13:06 08:35 08:28 -Correct Patient Yes Yes Yes -Correct Side, Site, Position Yes Yes Yes -Correct Procedure Yes Yes Yes -Procedure Performed Yes Yes Yes -Type of Procedure Debridement Debridement Debridement -Clinical Debridement Subcutaneous Subcutaneous Subcutaneous -Post Debridement Size (cm) - Length 1.2 1.0 1.0 -Post Debridement Size (cm) - Width 0.5 0.5 0.6 -Post Debridement Size (cm) - Depth 0.1 0.1 0.3 -Total Square Cm 0.60 0.50 0.60 -Wound/Ulcer Outcome Not Healed Not Healed Not Healed -Ulcer Cleansing Rinsed/ Rinsed/ Rinsed/ Irrigated with Irrigated with Irrigated with Saline Saline Saline -Foul Odor after Cleansing No No No -Bioengineered Tissue No No -Topical Lidocaine (%) 4 -Bleeding Controlled with Pressure Pressure Pressure -Treatment Response Procedure Procedure Procedure Tolerated Well Tolerated Well Tolerated Well Pain Scale: 0-10 Numeric Is Patient Pain Free? Yes Yes Yes Wound debrided: plantar medial hallux Laterality: Right Wound Grade/Stage: grade 1 Type of Debridement: Excisional debridement Anesthesia Used: 4% Lidocaine Solution Depth: in the subcutaneous layer Percentage of wound debrided: 100 Instrument Used: #15 blade Tissue Removed: fibrous, devitalized subcutaneous, biofilm, slough Severity: Fat Layer Exposed Amount of bleeding with debridement: Mild Bleeding Controlled with: Pressure Patient tolerated procedure well Assessment/Plan Active Problems (Last Updated 08/30/17 @ 07:15 by Ranjana Tam) Ulcer of right foot with fat layer exposed (Chronic) Type 2 diabetes mellitus with diabetic polyneuropathy (Chronic) Hallux limitus (Chronic) Delayed wound healing (Chronic) Assessment: 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 Peripheral vascular disease. Diabetes with neuropathy. Malnutrition suspected. Delayed healing. hallux limitus right Plan: I reviewed and discussed his case. Debridement was performed as noted in the clinical panel. Improved nutrition has been recommended. Offloading measures are to be continued. Additional felt offloading pad was incorporated to the cam walker previously; he previously had dual density offloading Plastizote which has compressed since he has been using it as advised. To continue to wear his cam walker with multi-density offloading pockets on the right foot. I also recommended surgical offloading with a percutaneous tenotomy of the flexor hallucis longus tendon versus rodrigues arthroplasty and these options were discussed in full again today. I discussed the indications benefits risks complications and anticipated healing course. The goal would be to improve the first metatarsophalangeal joint range of motion to decrease pressure this ulcer site. It is noted that he does have small vessel disease however he did promptly heal his partial adjacent second toe amputation site. I recommend proceeding forward with a Rodrigues arthroplasty at this time. The surgical instrument mechanic will contact him to get this scheduled. It is noted his primary care physician is Dr. Ricketts. Next, a debridement was performed as noted in the clinical panel. He completed a course of epifix and doyle was applied today; to change daily at home with regranex every 12 hours. He already has a shower bag. I reviewed and discussed his case and care plan. He was reassured there are no local signs of infection. He had biphasic and monophasic waveforms in the right lower extremity with an ankle-brachial index of 0.68. The toe brachial index was not calculated due to noncompressible status. Dr. Borges with vascular surgery did evaluate this patient during his last admission. Intervention will be considered if there are any delays in healing or further status change. He understands he is still at continued risk for further limb loss and illness. He was advised to maintain proper glycemic control and nutritional supplementation to optimize healing. Patient was educated on all signs and symptoms of local and systemic infection and he was instructed to go to the emergency room immediately should he notice any of these. He was placed on complex care plan due to inability proceed with recommended procedures, and his delayed healing is noted. His surgical consents were signed today for right foot Rodrigues arthroplasty with K wire placement temporarily. The preoperative indication, planned procedure, possible benefits, risks, complications, and anticipated healing time management were discussed in detail with the patient. No guarantees were made. He understands complications may include but are not limited to the following: Infection, continued delayed healing or nonhealing, hardware failure, swelling, pain, loss of limb, function, life, allergic reaction. He has a preoperative clearance and history and physical examination scheduled with Dr. Ricketts on May 24 and his surgery is scheduled at [facility] on May 28. To return to clinic in 1 week or call sooner if he has any questions. I answered all of his questions to his satisfaction. His preoperative diagnostic data will also be reviewed prior to proceeding.
--- NOTE | 2018-05-08 09:15 | PN.PCM_ITS ---
(1) Ulcer of right foot with fat layer exposed Status: Chronic Current Visit: Yes Code(s): L97.512 - Non-pressure chronic ulcer of other part of right foot with fat layer exposed (2) Type 2 diabetes mellitus with diabetic polyneuropathy Status: Chronic Current Visit: Yes Code(s): E11.42 - Type 2 diabetes mellitus with diabetic polyneuropathy (3) Hallux limitus Status: Chronic Current Visit: Yes Qualifiers: Code(s): M20.5X9 - Other deformities of toe(s) (acquired), unspecified foot (4) Delayed wound healing Status: Chronic Current Visit: Yes Code(s): T14.8XXD - Other injury of unspecified body region, subsequent encounter Type of Wound Chief Complaint: right great toe ulcer History of Wound: This 67-year-old male with multiple comorbidities is following up at the wound care center for continued treatment of wound to the right hallux. He denies fever, chill, nausea, vomiting. He denies pain. He wears a CAM walker and reports that he has neuropathy. He tries to keep pressure off of his toe. He change his dressing as advised with both Regranex and Doyle. He is ready to proceed with a surgical consultation paperwork today. Progress of Wound: stable - Physical Exam Vital Signs Temp Pulse Resp BP 96.0 F L 76 18 164/87 H 05/08/18 08:15 05/08/18 08:15 05/08/18 08:15 05/08/18 08:15 General: Alert, Oriented x3, Cooperative Extremities: No cyanosis, Capillary Refill Less than 3 Seconds, No Calf Tenderness - Negative Candice and Vera bilateral, Diminished Peripheral Pulses, Edema Skin: Ulcer/ Wound - No purulence, erythema, streaking, odor, or infection. T here is no exposed bone or joint capsule. The peripheral skin is atrophic. Wound Measurements and Assessment WC - Nurse 1 - General Ulcer Measurement Start: 04/16/18 12:33 Freq: Status: Active Protocol: Activity Type Activity Date Activity User E-Sign Co-Sign Detail Recorded Client Recorded Date Recorded By Document 05/08/18 08:15 [email or web address] [id number] 05/08/18 08:16 [email or web address] 05/08/18 08:15 Wound Center Nurse 1 [Ulcer Assessment] 3-right hallux -Combined with other wound No -Current Size (cm) - Length 0.9 -Current Size (cm) - Width 0.5 -Current Size (cm) - Depth 0.3 -Total Square Cm 0.45 -Photo Taken No -Epithelialization None Present -Tunneling No -Undermining/Tunneling No -Circular Undermining No -Exudate Amt Small (1-33%) -Exudate Type Serosanguineous -Wound Margin Flat & Intact -Granulation Amt Medium (34-66%) -Granulation Quality Red -Slough/Fibrin Yes -Necrosis Amt Small (1-33%) -Necrotic Tissue Type Adherent Slough -Structure Exposed N/A -Texture (Maxine-wound Skin Appearance) Assessed Callus -Moisture (Maxine-wound Skin Appearance Assessed ) Dry/Scaly -Color (Maxine-wound Skin Appearance) Assessed -Temperature (Maxine-wound Skin No Abnormality Appearance) (Pt Warm) -Tenderness on Palpation (Maxine-wound No Skin Appearance) -Ulcer Cleansing Rinsed/ Irrigated with Saline -Foul Odor after Cleansing No -Anesthetic Used 4% Lidocaine Solution WC - Nurse 2 - General Ulcer CM Notes Start: 04/16/18 12:33 Freq: Status: Active Protocol: Activity Type Activity Date Activity User E-Sign Co-Sign Detail Recorded Client Recorded Date Recorded By Document 05/08/18 08:28 [id number] 05/08/18 08:29 05/08/18 08:28 Wound Center Nurse 2 [Procedure/Treatment] -Time 08:28 -Correct Patient Yes -Correct Side, Site, Position Yes -Correct Procedure Yes -Procedure Performed Yes -Type of Procedure Debridement -Clinical Debridement Subcutaneous -Post Debridement Size (cm) - Length 1.0 -Post Debridement Size (cm) - Width 0.6 -Post Debridement Size (cm) - Depth 0.3 -Total Square Cm 0.60 -Wound/Ulcer Outcome Not Healed -Ulcer Cleansing Rinsed/ Irrigated with Saline -Foul Odor after Cleansing No -Bioengineered Tissue No -Topical Lidocaine (%) 4 -Bleeding Controlled with Pressure -Treatment Response Procedure Tolerated Well [See Physician Procedure note for Specifics] Pain Scale: 0-10 Numeric [Pain] -Is Patient Pain Free? Yes Musculoskeletal: No Tenderness to Palpation of Joints or Extremities, Muscle Wasting, - - Decreased noted first metatarsophalangeal joint range of motion right foot Neurological: - - Lack of epicritic sensation light touch consistent with neuropathy right foot Psych/Mental Status: Normal Affect, Appropriate Debridement Note Post-Debridement Measurements/Treatment WC - Nurse 2 - General Ulcer CM Notes Start: 04/16/18 12:33 Freq: Status: Active Protocol: Activity Type Activity Date Activity User E-Sign Co-Sign Detail Recorded Client Recorded Date Recorded By Document 04/16/18 13:04 [id number] 04/16/18 13:07 Document 05/01/18 08:35 [id number] 05/01/18 08:38 Document 05/08/18 08:28 [id number] 05/08/18 08:29 TM 04/16/18 05/01/18 05/08/18 13:04 08:35 08:28 Wound Center Nurse 2 3-right hallux -Time 13:06 08:35 08:28 -Correct Patient Yes Yes Yes -Correct Side, Site, Position Yes Yes Yes -Correct Procedure Yes Yes Yes -Procedure Performed Yes Yes Yes -Type of Procedure Debridement Debridement Debridement -Clinical Debridement Subcutaneous Subcutaneous Subcutaneous -Post Debridement Size (cm) - Length 1.2 1.0 1.0 -Post Debridement Size (cm) - Width 0.5 0.5 0.6 -Post Debridement Size (cm) - Depth 0.1 0.1 0.3 -Total Square Cm 0.60 0.50 0.60 -Wound/Ulcer Outcome Not Healed Not Healed Not Healed -Ulcer Cleansing Rinsed/ Rinsed/ Rinsed/ Irrigated with Irrigated with Irrigated with Saline Saline Saline -Foul Odor after Cleansing No No No -Bioengineered Tissue No No -Topical Lidocaine (%) 4 -Bleeding Controlled with Pressure Pressure Pressure -Treatment Response Procedure Procedure Procedure Tolerated Well Tolerated Well Tolerated Well Pain Scale: 0-10 Numeric Is Patient Pain Free? Yes Yes Yes Wound debrided: plantar medial hallux Laterality: Right Wound Grade/Stage: grade 1 Type of Debridement: Excisional debridement Anesthesia Used: 4% Lidocaine Solution Depth: in the subcutaneous layer Percentage of wound debrided: 100 Instrument Used: #15 blade Tissue Removed: fibrous, devitalized subcutaneous, biofilm, slough Severity: Fat Layer Exposed Amount of bleeding with debridement: Mild Bleeding Controlled with: Pressure Patient tolerated procedure well Assessment/Plan Active Problems (Last Updated 08/30/17 @ 07:15 by Ranjana Tam) Ulcer of right foot with fat layer exposed (Chronic) Type 2 diabetes mellitus with diabetic polyneuropathy (Chronic) Hallux limitus (Chronic) Delayed wound healing (Chronic) Assessment: 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 Peripheral vascular disease. Diabetes with neuropathy. Malnutrition suspected. Delayed healing. hallux limitus right Plan: I reviewed and discussed his case. Debridement was performed as noted in the clinical panel. Improved nutrition has been recommended. Offloading measures are to be continued. Additional felt offloading pad was incorporated to the cam walker previously; he previously had dual density offloading Plastizote which has compressed since he has been using it as advised. To continue to wear his cam walker with multi-density offloading pockets on the right foot. I also recommended surgical offloading with a percutaneous tenotomy of the flexor hallucis longus tendon versus rodrigues arthroplasty and these options were discussed in full again today. I discussed the indications benefits risks complications and anticipated healing course. The goal would be to improve the first metatarsophalangeal joint range of motion to decrease pressure this ulcer site. It is noted that he does have small vessel disease however he did promptly heal his partial adjacent second toe amputation site. I recommend proceeding forward with a Rodrigues arthroplasty at this time. The surgical instrument mechanic will contact him to get this scheduled. It is noted his primary care physician is Dr. Ricketts. Next, a debridement was performed as noted in the clinical panel. He completed a course of epifix and doyle was applied today; to change daily at home with regranex every 12 hours. He already has a shower bag. I reviewed and discussed his case and care plan. He was reassured there are no local signs of infection. He had biphasic and monophasic waveforms in the right lower extremity with an ankle-brachial index of 0.68. The toe brachial index was not calculated due to noncompressible status. Dr. Borges with vascular surgery did evaluate this patient during his last admission. Intervention will be considered if there are any delays in healing or further status change. He understands he is still at continued risk for further limb l oss and illness. He was advised to maintain proper glycemic control and nutritional supplementation to optimize healing. Patient was educated on all signs and symptoms of local and systemic infection and he was instructed to go to the emergency room immediately should he notice any of these. He was placed on complex care plan due to inability proceed with recommended procedures, and his delayed healing is noted. His surgical consents were signed today for right foot Rodrigues arthroplasty with K wire placement temporarily. The preoperative indication, planned procedure, possible benefits, risks, complications, and anticipated healing time management were discussed in detail with the patient. No guarantees were made. He understands complications may include but are not limited to the following: Infection, continued delayed healing or nonhealing, hardware failure, swelling, pain, loss of limb, function, life, allergic reaction. He has a preoperative clearance and history and physical examination scheduled with Dr. Ricketts on May 24 and his surgery is scheduled at [facility] on May 28. To return to clinic in 1 week or call sooner if he has any questions. I answered all of his questions to his satisfaction. His preoperative diagnostic data will also be reviewed prior to proceeding.
[2018-05-15 08:15] VITALS: BP 162/81; PULSE 68; RESP 18; TEMP 36.2
--- NOTE | 2018-05-15 09:05 | PCM.WC.PN ---
(1) Ulcer of right foot with fat layer exposed Status: Chronic Current Visit: Yes Code(s): L97.512 - Non-pressure chronic ulcer of other part of right foot with fat layer exposed (2) Type 2 diabetes mellitus with diabetic polyneuropathy Status: Chronic Current Visit: Yes Code(s): E11.42 - Type 2 diabetes mellitus with diabetic polyneuropathy (3) Hallux limitus Status: Chronic Current Visit: Yes Qualifiers: Code(s): M20.5X9 - Other deformities of toe(s) (acquired), unspecified foot (4) Delayed wound healing Status: Chronic Current Visit: Yes Code(s): T14.8XXD - Other injury of unspecified body region, subsequent encounter Type of Wound Chief Complaint: right great toe ulcer History of Wound: This 67-year-old male with multiple comorbidities is following up at the wound care center for continued treatment of wound to the right hallux. He denies fever, chill, nausea, vomiting. He denies pain. He wears a CAM walker and reports that he has neuropathy. He tries to keep pressure off of his toe. He change his dressing as advised with both Regranex and Doyle. He is ready to proceed with a surgical intervention including Rodrigues arthroplasty on May 28. Progress of Wound: stable - Physical Exam Vital Signs Temp Pulse Resp BP 97.1 F L 68 18 162/81 H 05/15/18 08:15 05/15/18 08:15 05/15/18 08:15 05/15/18 08:15 General: Alert, Oriented x3, Cooperative Extremities: No cyanosis, Capillary Refill Less than 3 Seconds, No Calf Tenderness - Negative Candice and Vera signs bilateral, Diminished Peripheral Pulses, Edema - Mild, - - Decrease noted first metatarsophalangeal joint range of motion right foot Skin: Ulcer/ Wound - No purulence, no erythema, streaking, odor, no infection. The peripheral skin is hairless and atrophic. Wound Measurements and Assessment WC - Nurse 1 - General Ulcer Measurement Start: 04/16/18 12:33 Freq: Status: Active Protocol: Activity Type Activity Date Activity User E-Sign Co-Sign Detail Recorded Client Recorded Date Recorded By Document 05/15/18 08:15 RB [id number] 05/15/18 08:19 RB 05/15/18 08:15 Wound Center Nurse 1 [Ulcer Assessment] 3-right hallux -Combined with other wound No -Current Size (cm) - Length 0.9 -Current Size (cm) - Width 0.9 -Current Size (cm) - Depth 0.9 -Total Square Cm 0.81 -Tunneling No -Undermining/Tunneling No -Circular Undermining No -Exudate Amt None Present (0 %) -Wound Margin Distinct, Outline Attached -Granulation Amt Medium (34-66%) -Granulation Quality Red -Slough/Fibrin Yes -Necrosis Amt Medium (34-66%) -Necrotic Tissue Type Adherent Slough -Structure Exposed N/A -Texture (Maxine-wound Skin Appearance) Callus -Moisture (Maxine-wound Skin Appearance Assessed ) -Color (Maxine-wound Skin Appearance) Assessed -Temperature (Maxine-wound Skin No Abnormality Appearance) (Pt Warm) -Tenderness on Palpation (Maxine-wound No Skin Appearance) -Ulcer Cleansing Rinsed/ Irrigated with Saline -Foul Odor after Cleansing No -Anesthetic Used 5% Lidocaine Gel [Edema Assessment] -Lower Limb Edema Present Yes -Right Calf (cm) 45.5 -Right Ankle (cm) 26.5 WC - Nurse 2 - General Ulcer CM Notes Start: 04/16/18 12:33 Freq: Status: Active Protocol: Activity Type Activity Date Activity User E-Sign Co-Sign Detail Recorded Client Recorded Date Recorded By Document 05/15/18 08:33 [email or web address] [id number] 05/15/18 08:34 AISHWARYA 05/15/18 08:33 Wound Center Nurse 2 [Procedure/Treatment] 3-right hallux -Time 08:34 -Correct Patient Yes -Correct Side, Site, Position Yes -Correct Procedure Yes -Procedure Performed Yes -Type of Procedure Debridement -Clinical Debridement Subcutaneous -Post Debridement Size (cm) - Length 1.2 -Post Debridement Size (cm) - Width 0.6 -Post Debridement Size (cm) - Depth 0.2 -Total Square Cm 0.72 -Wound/Ulcer Outcome Not Healed -Ulcer Cleansing Rinsed/ Irrigated with Saline -Foul Odor after Cleansing No -Bioengineered Tissue No -Bleeding Controlled with Pressure -Treatment Response Procedure Tolerated Well [See Physician Procedure note for Specifics] Pain Scale: 0-10 Numeric [Pain] -Is Patient Pain Free? Yes Musculoskeletal: No Tenderness to Palpation of Joints or Extremities, Muscle Wasting Neurological: - - Lack of epicritic sensation via light touch consistent with neuropathy Psych/Mental Status: Normal Affect, Appropriate Debridement Note Post-Debridement Measurements/Treatment WC - Nurse 2 - General Ulcer CM Notes Start: 04/16/18 12:33 Freq: Status: Active Protocol: Activity Type Activity Date Activity User E-Sign Co-Sign Detail Recorded Client Recorded Date Recorded By Document 04/16/18 13:04 [id number] 04/16/18 13:07 Document 05/01/18 08:35 [id number] 05/01/18 08:38 Document 05/08/18 08:28 TM [id number] 05/08/18 08:29 TM Document 05/15/18 08:33 JF [id number] 05/15/18 08:34 04/16/18 05/01/18 05/08/18 13:04 08:35 08:28 Wound Center Nurse 2 3-right hallux -Time 13:06 08:35 08:28 -Correct Patient Yes Yes Yes -Correct Side, Site, Position Yes Yes Yes -Correct Procedure Yes Yes Yes -Procedure Performed Yes Yes Yes -Type of Procedure Debridement Debridement Debridement -Clinical Debridement Subcutaneous Subcutaneous Subcutaneous -Post Debridement Size (cm) - Length 1.2 1.0 1.0 -Post Debridement Size (cm) - Width 0.5 0.5 0.6 -Post Debridement Size (cm) - Depth 0.1 0.1 0.3 -Total Square Cm 0.60 0.50 0.60 -Wound/Ulcer Outcome Not Healed Not Healed Not Healed -Ulcer Cleansing Rinsed/ Rinsed/ Rinsed/ Irrigated with Irrigated with Irrigated with Saline Saline Saline -Foul Odor after Cleansing No No No -Bioengineered Tissue No No -Topical Lidocaine (%) 4 -Bleeding Controlled with Pressure Pressure Pressure -Treatment Response Procedure Procedure Procedure Tolerated Well Tolerated Well Tolerated Well Pain Scale: 0-10 Numeric Is Patient Pain Free? Yes Yes Yes 05/15/18 08:33 Wound Center Nurse 2 3-right hallux -Time 08:34 -Correct Patient Yes -Correct Side, Site, Position Yes -Correct Procedure Yes -Procedure Performed Yes -Type of Procedure Debridement -Clinical Debridement Subcutaneous -Post Debridement Size (cm) - Length 1.2 -Post Debridement Size (cm) - Width 0.6 -Post Debridement Size (cm) - Depth 0.2 -Total Square Cm 0.72 -Wound/Ulcer Outcome Not Healed -Ulcer Cleansing Rinsed/ Irrigated with Saline -Foul Odor after Cleansing No -Bioengineered Tissue No -Topical Lidocaine (%) -Bleeding Controlled with Pressure -Treatment Response Procedure Tolerated Well Pain Scale: 0-10 Numeric Is Patient Pain Free? Yes Wound debrided: plantar hallux Laterality: Right Wound Grade/Stage: grade 1 Type of Debridement: Excisional debridement Anesthesia Used: 4% Lidocaine Solution Depth: in the subcutaneous layer Percentage of wound debrided: 100 Instrument Used: #15 blade Tissue Removed: fibrous, devitalized subcutaneous, biofilm, slough Severity: Fat Layer Exposed Amount of bleeding with debridement: Mild Bleeding Controlled with: Pressure Patient tolerated procedure well Assessment/Plan Active Problems (Last Updated 08/30/17 @ 07:15 by Ranjana Tam) Ulcer of right foot with fat layer exposed (Chronic) Type 2 diabetes mellitus with diabetic polyneuropathy (Chronic) Hallux limitus (Chronic) Delayed wound healing (Chronic) Assessment: 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 Peripheral vascular disease. Diabetes with neuropathy. Malnutrition suspected. Delayed healing. hallux limitus right Plan: I reviewed and discussed his case. Debridement was performed as noted in the clinical panel. Improved nutrition has been recommended. Offloading measures are to be continued. Additional felt offloading pad was incorporated to the cam walker previously; he previously had dual density offloading Plastizote which has compressed since he has been using it as advised. To continue to wear his cam walker with multi-density offloading pockets on the right foot. I recommended surgical offloading rodrigues arthroplasty (curative) and these options were discussed in full again today. I discussed the indications benefits risks complications and anticipated healing course. The goal would be to improve the first metatarsophalangeal joint range of motion to decrease pressure this ulcer site. It is noted that he does have small vessel disease however he did promptly heal his partial adjacent second toe amputation site. This is been scheduled for May 28, 2018 and his preoperative H&P scheduled for May 24, [address] Ricketts. Next, a debridement was performed as noted in the clinical panel. He completed a course of epifix and doyle was applied today; to change daily at home with regranex every 12 hours. I reviewed and discussed his case and care plan. He was reassured there are no local signs of infection. He had biphasic and monophasic waveforms in the right lower extremity with an ankle-brachial index of 0.68. The toe brachial index was not calculated due to noncompressible status. Dr. oBrges with vascular surgery did evaluate this patient during his last admission. Intervention will be considered if there are any delays in healing or further status change. He understands he is still at continued risk for further limb loss and illness. He was advised to maintain proper glycemic control and nutritional supplementation to optimize healing. Patient was educated on all signs and symptoms of local and systemic infection and he was instructed to go to the emergency room immediately should he notice any of these. He was placed on complex care plan due to inability proceed with recommended procedures, and his delayed healing is noted. His surgical consents were signed last week for right foot Rodrigues arthroplasty with K wire placement temporarily. The preoperative indication, planned procedure, possible benefits, risks, complications, and anticipated healing time management were discussed in detail with the patient. No guarantees were made. He understands complications may include but are not limited to the following: Infection, continued delayed healing or nonhealing, hardware failure, swelling, pain, loss of limb, function, life, allergic reaction. To return to clinic in 1 week or call sooner if he has any questions. I answered all of his questions to his satisfaction. His preoperative diagnostic data will also be reviewed prior to proceeding.
== END 2018-05-15 23:59 ==
LOC: WC 08:00
PROVIDERS: Family Provider Family Medicine; PCP Family Medicine; Visit Provider Podiatrist
DX: E11.621 Type 2 diabetes mellitus with foot ulcer (principal); E11.42 Type 2 diabetes mellitus with diabetic polyneuropathy; L97.512 Non-pressure chronic ulcer of other part of right foot with fat layer exposed; M20.5X9 Other deformities of toe(s) (acquired), unspecified foot
CPT/HCPCS: 11042

== ENCOUNTER 2018-06-12 08:00 | Outpatient (RCR) | payer OTHER, SELFPAY ==
[2018-05-16 00:37] VITALS: BP 162/81; PULSE 68; RESP 18; TEMP 36.2
[2018-05-22 08:17] VITALS: BP 158/73; PULSE 79; RESP 18; TEMP 36.6
--- NOTE | 2018-05-22 08:54 | PN.PCM_ITS ---
(1) Ulcer of right foot with fat layer exposed Status: Chronic Current Visit: Yes Code(s): L97.512 - Non-pressure chronic ulcer of other part of right foot with fat layer exposed (2) Type 2 diabetes mellitus with diabetic polyneuropathy Status: Chronic Current Visit: Yes Code(s): E11.42 - Type 2 diabetes mellitus with diabetic polyneuropathy (3) Hallux limitus Status: Chronic Current Visit: Yes Qualifiers: Code(s): M20.5X9 - Other deformities of toe(s) (acquired), unspecified foot Type of Wound Chief Complaint: right great toe ulcer History of Wound: This 68-year-old male with multiple comorbidities is following up at the wound care center for continued treatment of wound to the right hallux. He denies fever, chill, nausea, vomiting. He denies pain. He wears a CAM walker and reports that he has neuropathy. He tries to keep pressure off of his toe. He is apprehensive about surgery and cancels today. Progress of Wound: imProving - Physical Exam Vital Signs Temp Pulse Resp BP 97.8 F 79 18 158/73 H 05/22/18 08:17 05/22/18 08:17 05/22/18 08:17 05/22/18 08:17 General: Alert, Oriented x3, Cooperative Extremities: No cyanosis, Capillary Refill Less than 3 Seconds, No Calf Tenderness, Diminished Peripheral Pulses, Edema Skin: Ulcer/ Wound - There is no purulence, no erythema, streaking, no odor, no infection. The peripheral skin is hairless and atrophic. He does have some progressive epithelialization noted around the peripheral border Wound Measurements and Assessment WC - Nurse 1 - General Ulcer Measurement Start: 05/22/18 08:16 Freq: Status: Active Protocol: Activity Type Activity Date Activity User E-Sign Co-Sign Detail Recorded Client Recorded Date Recorded By Document 05/22/18 08:17 [id number] 05/22/18 08:19 05/22/18 08:17 Wound Center Nurse 1 [Ulcer Assessment] 3-right hallux -Combined with other wound No -Current Size (cm) - Length 0.6 -Current Size (cm) - Width 0.3 -Current Size (cm) - Depth 0.2 -Total Square Cm 0.18 -Photo Taken No -Epithelialization Small 1-33% -Tunneling No -Undermining/Tunneling No -Circular Undermining No -Exudate Amt Small (1-33%) -Exudate Type Serosanguineous -Wound Margin Distinct, Outline Attached -Granulation Amt Medium (34-66%) -Granulation Quality Pale [facility] -Slough/Fibrin Yes -Necrosis Amt Small (1-33%) -Necrotic Tissue Type Adherent Slough -Texture (Maxine-wound Skin Appearance) Assessed Callus Scarring -Moisture (Maxine-wound Skin Appearance Assessed ) Dry/Scaly -Color (Maxine-wound Skin Appearance) No Abnormality Assessed -Temperature (Maxine-wound Skin No Abnormality Appearance) (Pt Warm) -Tenderness on Palpation (Maxine-wound No Skin Appearance) -Ulcer Cleansing Rinsed/ Irrigated with Saline -Foul Odor after Cleansing No -Anesthetic Used 4% Lidocaine Solution [Edema Assessment] -Right Calf (cm) 46.5 -Right Ankle (cm) 29.0 WC - Nurse 2 - General Ulcer CM Notes Start: 05/22/18 08:16 Freq: Status: Active Protocol: Activity Type Activity Date Activity User E-Sign Co-Sign Detail Recorded Client Recorded Date Recorded By Document 05/22/18 08:30 [email or web address] [id number] 05/22/18 08:32 AISHWARYA 05/22/18 08:30 Wound Center Nurse 2 [Procedure/Treatment] 3-right hallux -Time 08:30 -Correct Patient Yes -Correct Side, Site, Position Yes -Correct Procedure Yes -Procedure Performed Yes -Type of Procedure Debridement -Clinical Debridement Subcutaneous -Post Debridement Size (cm) - Length 1.0 -Post Debridement Size (cm) - Width 0.4 -Post Debridement Size (cm) - Depth 0.2 -Total Square Cm 0.40 -Wound/Ulcer Outcome Not Healed -Ulcer Cleansing Rinsed/ Irrigated with Saline -Foul Odor after Cleansing No -Bioengineered Tissue No -Bleeding Controlled with Pressure -Treatment Response Procedure Tolerated Well [See Physician Procedure note for Specifics] Pain Scale: 0-10 Numeric [Pain] -Is Patient Pain Free? Yes Musculoskeletal: No Tenderness to Palpation of Joints or Extremities, Muscle Wasting, - - Decreased loaded first metatarsophalangeal joint Neurological: - - Lack of epicritic sensation consistent with neuropathy Psych/Mental Status: Normal Affect, Appropriate Debridement Note Post-Debridement Measurements/Treatment WC - Nurse 2 - General Ulcer CM Notes Start: 05/22/18 08:16 Freq: Status: Active Protocol: Activity Type Activity Date Activity User E-Sign Co-Sign Detail Recorded Client Recorded Date Recorded By Document 05/22/18 08:30 [email or web address] [id number] 05/22/18 08:32 AISHWARYA 05/22/18 08:30 Wound Center Nurse 2 3-right hallux -Time 08:30 -Correct Patient Yes -Correct Side, Site, Position Yes -Correct Procedure Yes -Procedure Performed Yes -Type of Procedure Debridement -Clinical Debridement Subcutaneous -Post Debridement Size (cm) - Length 1.0 -Post Debridement Size (cm) - Width 0.4 -Post Debridement Size (cm) - Depth 0.2 -Total Square Cm 0.40 -Wound/Ulcer Outcome Not Healed -Ulcer Cleansing Rinsed/ Irrigated with Saline -Foul Odor after Cleansing No -Bioengineered Tissue No -Bleeding Controlled with Pressure -Treatment Response Procedure Tolerated Well Pain Scale: 0-10 Numeric Is Patient Pain Free? Yes Wound debrided: plantar hallux Laterality: Right Wound Grade/Stage: grade 1 Type of Debridement: Excisional debridement Anesthesia Used: 4% Lidocaine Solution Depth: in the subcutaneous layer Percentage of wound debrided: 100 Instrument Used: #15 blade Tissue Removed: fibrous, devitalized subcutaneous, biofilm, slough Severity: Fat Layer Exposed Amount of bleeding with debridement: Mild Bleeding Controlled with: Pressure Patient tolerated procedure well Assessment/Plan Active Problems (Last Updated 08/30/17 @ 07:15 by Ranjana Tam) Ulcer of right foot with fat layer exposed (Chronic) Type 2 diabetes mellitus with diabetic polyneuropathy (Chronic) Hallux limitus (Chronic) Assessment: 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 Peripheral vascular disease. Diabetes with neuropathy. Malnutrition suspected. Delayed healing. hallux limitus right Plan: I reviewed and discussed his case. Debridement was performed as noted in the clinical panel. Improved nutrition has been recommended. Offloading measures are to be continued. Additional felt offloading pad was incorporated to the cam walker previously; he previously had dual density offloading Plastizote which has compressed since he has been using it as advised. To continue to wear his cam walker with multi-density offloading pockets on the right foot. I recommended surgical offloading redd arthroplasty (curative) and these options were discussed in full again today. He has changed his mind and decided to cancel his surgical procedure scheduled for the . I discussed the indications benefits risks complications and anticipated healing course. The goal would be to improve the first metatarsophalangeal joint range of motion to decrease pressure this ulcer site. It is noted that he does have small vessel disease however he did promptly heal his partial adjacent second toe amputation site. Next, a debridement was performed as noted in the clinical panel. He completed a course of epifix and doyle was applied today; to change daily at home with regranex every 12 hours. I reviewed and discussed his case and care plan. He was reassured there are no local signs of infection. He had biphasic and monophasic waveforms in the right lower extremity with an ankle-brachial index of 0.68. The toe brachial index was not calculated due to noncompressible status. Dr. Borges with vascular surgery did evaluate this patient during his last admission. Intervention will be considered if there are any delays in healing or further status change. He understands he is still at continued risk for further limb loss and illness. He was advised to maintain proper glycemic control and nutritional supplementation to optimize healing. Patient was educated on all signs and symptoms of local and systemic infection and he was instructed to go to the emergency room immediately should he notice any of these. He was placed on complex care plan due to inability proceed with recommended procedures, and his delayed healing is noted. To return to clinic in 1 week or call sooner if he has any questions. I answered all of his questions.
[2018-05-29 08:06] VITALS: BP 148/77; PULSE 79; RESP 18; TEMP 35.7
--- NOTE | 2018-05-29 08:53 | PN.PCM_ITS ---
(1) Ulcer of right foot with fat layer exposed Status: Chronic Current Visit: Yes Code(s): L97.512 - Non-pressure chronic ulcer of other part of right foot with fat layer exposed (2) Type 2 diabetes mellitus with diabetic polyneuropathy Status: Chronic Current Visit: Yes Code(s): E11.42 - Type 2 diabetes mellitus with diabetic polyneuropathy (3) Hallux limitus Status: Chronic Current Visit: Yes Qualifiers: Code(s): M20.5X9 - Other deformities of toe(s) (acquired), unspecified foot Type of Wound Date of Service: 05/29/18 Chief Complaint: right great toe ulcer History of Wound: This 68-year-old male with multiple comorbidities is following up at the wound care center for continued treatment of wound to the right hallux. He denies fever, chill, nausea, vomiting. He denies pain. He wears a CAM walker and reports that he has neuropathy. He tries to keep pressure off of his toe. He is apprehensive about surgery and has already cancel his planned procedure. Progress of Wound: imProving - Physical Exam Vital Signs Temp Pulse Resp BP 96.2 F L 79 18 148/77 H 05/29/18 08:06 05/29/18 08:06 05/29/18 08:06 05/29/18 08:06 General: Alert, Oriented x3, Cooperative Extremities: No cyanosis, Capillary Refill Less than 3 Seconds, No Calf Tenderness - Negative Candice and Vera bilateral, Diminished Peripheral Pulses, Edema - Mild, - - Decreased loaded first metatarsophalangeal joint range of motion consistent with hallux limitus Skin: Ulcer/ Wound - No purulence, erythema, streaking, odor or infection. The peripheral epithelialization is noted. There is decreased callus formation. The peripheral skin is hairless and atrophic. There is no deep tissue exposed Wound Measurements and Assessment WC - Nurse 1 - General Ulcer Measurement Start: 05/22/18 08:16 Freq: Status: Active Protocol: Activity Type Activity Date Activity User E-Sign Co-Sign Detail Recorded Client Recorded Date Recorded By Document 05/29/18 08:06 [email or web address] [id number] 05/29/18 08:09 AISHWARYA 05/29/18 08:06 Wound Center Nurse 1 [Ulcer Assessment] 3-right hallux -Combined with other wound No -Current Size (cm) - Length 0.6 -Current Size (cm) - Width 0.2 -Current Size (cm) - Depth 0.2 -Total Square Cm 0.12 -Photo Taken No -Tunneling No -Undermining/Tunneling No -Circular Undermining No -Exudate Amt Small (1-33%) -Exudate Type Serosanguineous -Wound Margin Distinct, Outline Attached -Granulation Amt Medium (34-66%) -Granulation Quality [place] -Slough/Fibrin Yes -Necrosis Amt Small (1-33%) -Necrotic Tissue Type Adherent Slough -Structure Exposed N/A -Texture (Maxine-wound Skin Appearance) Assessed Callus -Moisture (Maxine-wound Skin Appearance Assessed ) -Color (Maxine-wound Skin Appearance) Assessed -Temperature (Maxine-wound Skin No Abnormality Appearance) (Pt Warm) -Tenderness on Palpation (Maxine-wound No Skin Appearance) -Ulcer Cleansing Rinsed/ Irrigated with Saline -Foul Odor after Cleansing No -Anesthetic Used 5% Lidocaine Gel [Edema Assessment] -Lower Limb Edema Present Yes -Right Calf (cm) 44.7 -Right Ankle (cm) 26.3 WC - Nurse 2 - General Ulcer CM Notes Start: 05/22/18 08:16 Freq: Status: Active Protocol: Activity Type Activity Date Activity User E-Sign Co-Sign Detail Recorded Client Recorded Date Recorded By Document 05/29/18 08:29 [email or web address] [id number] 05/29/18 08:30 AISHWARYA 05/29/18 08:29 Wound Center Nurse 2 [Procedure/Treatment] 3-right hallux -Time 08:29 -Correct Patient Yes -Correct Side, Site, Position Yes -Correct Procedure Yes -Procedure Performed Yes -Type of Procedure Debridement -Clinical Debridement Subcutaneous -Post Debridement Size (cm) - Length 0.5 -Post Debridement Size (cm) - Width 0.3 -Post Debridement Size (cm) - Depth 0.2 -Total Square Cm 0.15 -Wound/Ulcer Outcome Not Healed -Ulcer Cleansing Rinsed/ Irrigated with Saline -Foul Odor after Cleansing No -Bioengineered Tissue No -Bleeding Controlled with Pressure -Treatment Response Procedure Tolerated Well [See Physician Procedure note for Specifics] Pain Scale: 0-10 Numeric [Pain] -Is Patient Pain Free? Yes Musculoskeletal: No Tenderness to Palpation of Joints or Extremities, Muscle Wasting Neurological: - - Lack of epicritic sensation light touch consistent with neuropathy Psych/Mental Status: Normal Affect, Appropriate Debridement Note Post-Debridement Measurements/Treatment WC - Nurse 2 - General Ulcer CM Notes Start: 05/22/18 08:16 Freq: Status: Active Protocol: Activity Type Activity Date Activity User E-Sign Co-Sign Detail Recorded Client Recorded Date Recorded By Document 05/22/18 08:30 [email or web address] 05/22/18 08:32 Document 05/29/18 08:29 [id number] 05/29/18 08:30 05/22/18 05/29/18 08:30 08:29 Wound Center Nurse 2 3-right hallux -Time 08:30 08:29 -Correct Patient Yes Yes -Correct Side, Site, Position Yes Yes -Correct Procedure Yes Yes -Procedure Performed Yes Yes -Type of Procedure Debridement Debridement -Clinical Debridement Subcutaneous Subcutaneous -Post Debridement Size (cm) - Length 1.0 0.5 -Post Debridement Size (cm) - Width 0.4 0.3 -Post Debridement Size (cm) - Depth 0.2 0.2 -Total Square Cm 0.40 0.15 -Wound/Ulcer Outcome Not Healed Not Healed -Ulcer Cleansing Rinsed/ Rinsed/ Irrigated with Irrigated with Saline Saline -Foul Odor after Cleansing No No -Bioengineered Tissue No No -Bleeding Controlled with Pressure Pressure -Treatment Response Procedure Procedure Tolerated Well Tolerated Well Pain Scale: 0-10 Numeric Is Patient Pain Free? Yes Yes m Wound debrided: plantar medial hallux Laterality: Right Wound Grade/Stage: grade 1 Type of Debridement: Excisional debridement Anesthesia Used: 4% Lidocaine Solution Depth: in the subcutaneous layer Percentage of wound debrided: 100 Instrument Used: #15 blade Tissue Removed: fibrous, devitalized subcutaneous, biofilm, slough Severity: Fat Layer Exposed Amount of bleeding with debridement: Mild Bleeding Controlled with: Pressure Patient tolerated procedure well Assessment/Plan Active Problems (Last Updated 08/30/17 @ 07:15 by Ranjana Tam) Ulcer of right foot with fat layer exposed (Chronic) Type 2 diabetes mellitus with diabetic polyneuropathy (Chronic) Hallux limitus (Chronic) Assessment: Chronic right hallux ulcer with fat layer exposed secondary to diego llux limitus. 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 Peripheral vascular disease. Diabetes with neuropathy. Malnutrition suspected. Delayed healing. hallux limitus right Plan: I reviewed and discussed his case. Debridement was performed as noted in the clinical panel. Improved nutrition has been recommended. Offloading measures are to be continued. Additional felt offloading pad was incorporated to the cam walker previously; he previously had dual density offloading Pl astizote which has compressed since he has been using it as advised. To continue to wear his cam walker with multi-density offloading pockets on the right foot. I recommended surgical offloading redd arthroplasty (curative) and these options were discussed in again today and he defers. I discussed the indications benefits risks complications and anticipated healing course. The goal would be to improve the first metatarsophalangeal joint range of motion to decrease pressure this ulcer site. It is noted that he does have small vessel disease however he did promptly heal his partial adjacent second toe amputation site. He was also offered a total contact cast and defers at this time. Next, a debridement was performed as noted in the clinical panel. He completed a course of epifix and doyle was applied today; to change daily at home with regranex every 12 hours. I reviewed and discussed his case and care plan. He was reassured there are no local signs of infection. He had biphasic and monophasic waveforms in the right lower extremity with an ankle-brachial index of 0.68. The toe brachial index was not calculated due to noncompressible status. Dr. Borges with vascular surgery did evaluate this patient during his last admission. Intervention will be considered if there are any delays in healing or further status change. He understands he is still at continued risk for further limb loss and illness. He was advised to maintain proper glycemic control and nutritional supplementation to optimize healing. Patient was educated on all signs and symptoms of local and systemic infection and he was instructed to go to the emergency room immediately should he notice any of these. He was placed on complex care plan due to inability proceed with recommended procedures, and his delayed healing is noted. To return to clinic in 1 week or call sooner if he has any questions. I answered all of his questions.
[2018-06-12 08:23] VITALS: BP 112/77; PULSE 82; RESP 16; TEMP 36.9
--- NOTE | 2018-06-12 08:52 | PCM.WC.PN ---
(1) Ulcer of right foot with fat layer exposed Status: Resolved Current Visit: Yes Code(s): L97.512 - Non-pressure chronic ulcer of other part of right foot with fat layer exposed (2) Type 2 diabetes mellitus with diabetic polyneuropathy Status: Chronic Current Visit: Yes Code(s): E11.42 - Type 2 diabetes mellitus with diabetic polyneuropathy (3) Hallux limitus Status: Chronic Current Visit: Yes Qualifiers: Code(s): M20.5X9 - Other deformities of toe(s) (acquired), unspecified foot Type of Wound Date of Service: 06/12/18 Chief Complaint: right great toe ulcer healed History of Wound: This 68-year-old male with multiple comorbidities is following up at the wound care center for continued treatment of wound to the right hallux. He denies fever, chill, nausea, vomiting. He denies pain. He wears a CAM walker and reports that he has neuropathy. He tries to keep pressure off of his toe. HE denies drainage the last day. Progress of Wound: healed - Physical Exam Vital Signs Temp Pulse Resp BP 98.4 F 82 16 112/77 06/12/18 08:23 06/12/18 08:23 06/12/18 08:23 06/12/18 08:23 General: Alert, Oriented x3, Cooperative Extremities: No cyanosis, Capillary Refill Less than 3 Seconds, No Calf Tenderness, Diminished Peripheral Pulses, Edema - mild Skin: Ulcer/ Wound - full epithelialization noted . no erythema, no streaking, no odor, no infection noted. the peripheral skin is hairless and atrophic Wound Measurements and Assessment WC - Nurse 1 - General Ulcer Measurement Start: 05/22/18 08:16 Freq: Status: Active Protocol: Activity Type Activity Date Activity User E-Sign Co-Sign Detail Recorded Client Recorded Date Recorded By Document 06/12/18 08:23 DV [id number] 06/12/18 08:31 DV 06/12/18 08:23 Wound Center Nurse 1 [Ulcer Assessment] 3-right hallux -Combined with other wound No -Current Size (cm) - Length 0.5 -Current Size (cm) - Width 0.5 -Current Size (cm) - Depth 0.1 -Total Square Cm 0.25 -Photo Taken No -Epithelialization None Present -Tunneling No -Undermining/Tunneling No -Classification - Thickness Full Thickness without Exposed Support Structure -Change in Wound Grade/Stage No Query Text:If change please identify the Stage/Grade in the comment (ie. S2 G3) -Exudate Amt None Present (0 %) -Wound Margin Flat & Intact -Granulation Amt Small (1-33%) -Granulation Quality N/A -Slough/Fibrin Yes -Necrosis Amt Small (1-33%) -Necrotic Tissue Type Adherent Slough -Structure Exposed None/Limited to Skin Breakdown -Texture (Maxine-wound Skin Appearance) No Abnormality Assessed -Moisture (Maxine-wound Skin Appearance No Abnormality ) Assessed -Color (Maxine-wound Skin Appearance) No Abnormality Assessed -Tenderness on Palpation (Maxine-wound No Skin Appearance) -Ulcer Cleansing Rinsed/ Irrigated with Saline -Foul Odor after Cleansing No -Anesthetic Used 5% Lidocaine Gel [Edema Assessment] -Lower Limb Edema Present Yes -Right Calf (cm) 47.0 -Right Ankle (cm) 26.0 WC - Nurse 2 - General Ulcer CM Notes Start: 05/22/18 08:16 Freq: Status: Active Protocol: Activity Type Activity Date Activity User E-Sign Co-Sign Detail Recorded Client Recorded Date Recorded By Document 06/12/18 08:39 [email or web address] [id number] 06/12/18 08:41 [email or web address] 06/12/18 08:39 Wound Center Nurse 2 [Procedure/Treatment] 3-right hallux -Correct Patient No -Correct Side, Site, Position No -Correct Procedure No -Procedure Performed No -Post Debridement Size (cm) - Length 0 -Post Debridement Size (cm) - Width 0 -Post Debridement Size (cm) - Depth 0 -Total Square Cm 0 -Wound/Ulcer Outcome Healed- Epithelialized [See Physician Procedure note for Specifics] Pain Scale: 0-10 Numeric [Pain] -Is Patient Pain Free? Yes Musculoskeletal: No Tenderness to Palpation of Joints or Extremities, Muscle Wasting, - - decreased loaded first metatarsal phalangeal joint range of motion noted Neurological: - - lack of epicritic sensation via light touch noted Psych/Mental Status: Normal Affect, Appropriate Debridement Note Post-Debridement Measurements/Treatment WC - Nurse 2 - General Ulcer CM Notes Start: 05/22/18 08:16 Freq: Status: Active Protocol: Activity Type Activity Date Activity User E-Sign Co-Sign Detail Recorded Client Recorded Date Recorded By Document 05/22/18 08:30 [id number] 05/22/18 08:32 Document 05/29/18 08:29 [id number] 05/29/18 08:30 Document 06/12/18 08:39 [id number] 06/12/18 08:41 05/22/18 05/29/18 06/12/18 08:30 08:29 08:39 Wound Center Nurse 2 3-right hallux -Time 08:30 08:29 -Correct Patient Yes Yes No -Correct Side, Site, Position Yes Yes No -Correct Procedure Yes Yes No -Procedure Performed Yes Yes No -Type of Procedure Debridement Debridement -Clinical Debridement Subcutaneous Subcutaneous -Post Debridement Size (cm) - Length 1.0 0.5 0 -Post Debridement Size (cm) - Width 0.4 0.3 0 -Post Debridement Size (cm) - Depth 0.2 0.2 0 -Total Square Cm 0.40 0.15 0 -Wound/Ulcer Outcome Not Healed Not Healed Healed- Epithelialized -Ulcer Cleansing Rinsed/ Rinsed/ Irrigated with Irrigated with Saline Saline -Foul Odor after Cleansing No No -Bioengineered Tissue No No -Bleeding Controlled with Pressure Pressure -Treatment Response Procedure Procedure Tolerated Well Tolerated Well Pain Scale: 0-10 Numeric Is Patient Pain Free? Yes Yes Yes No debridement was completed today - the ulcer site has healed Assessment/Plan Active Problems (Last Updated 08/30/17 @ 07:15 by Ranjana Tam) Type 2 diabetes mellitus with diabetic polyneuropathy (Chronic) Hallux limitus (Chronic) Assessment: Chronic right hallux ulcer healed. s/p partial right 2nd toe amputation remains healed. Peripheral vascular disease. Diabetes with neuropathy. Malnutrition suspected. Delayed healing. hallux limitus right Plan: I reviewed and discussed his case. Debridement was not performed today because the ulcer site has healed. To continue to wear his cam walker with multi-density offloading pockets on the right foot to allow further skin remodeling. Ok to resume showering and to d/c dressing care. I reviewed and discussed his case and care plan. To check feet and moisturize daily to maintain good skin integrity. He understands he is still at continued risk for further limb loss and illness. He was advised to maintain proper glycemic control. He is discharged from the wound healing center at this time. [facility] 2 weeks for healed ulcer check, to order extra depth diabetic shoes with dual density plastazote insoles, and for palliative care. I answered all of his questions.
== END 2018-06-14 23:59 ==
LOC: WC 08:00
PROVIDERS: Family Provider Family Medicine; PCP Family Medicine; Visit Provider Podiatrist
DX: E11.621 Type 2 diabetes mellitus with foot ulcer (principal); L97.512 Non-pressure chronic ulcer of other part of right foot with fat layer exposed; E11.42 Type 2 diabetes mellitus with diabetic polyneuropathy; M20.5X9 Other deformities of toe(s) (acquired), unspecified foot
CPT/HCPCS: 11042; 99212; G0463

== ENCOUNTER 2020-03-08 12:31 | Inpatient (IN) | payer OTHER, MEDICARE, SELFPAY ==
[2018-06-15 00:38] VITALS: BMI 42.5
[2020-03-08] VITALS (10 sets, daily range): BP systolic 142–159; BP diastolic 68–81; PULSE 90–100; RESP 15–18; TEMP 35.6–37; O2SAT 90–97; BMI 38.2; BMI 38.3
--- NOTE | 2020-03-08 13:14 | RAD_ITS ---
STUDY: X-RAY - RIGHT FOOT CLINICAL: Male, 69 years old. GREAT TOE INFECTION TECHNIQUE: 3 view(s) of the foot. COMPARISON: Comparison is made with prior study dated 09/27/2017. FINDINGS: Normal talus, calcaneus, and tarsal bones. Normal visualized subtalar, talonavicular, calcaneocuboid, tarsal and tarsometatarsal articulations. Normal metatarsi. Normal metatarsophalangeal joint of the great toe. Normal tibial and fibular sesamoid bones. Normal interphalangeal joint of the great toe. There is evidence of bone resorption of the distal phalanx of the great toe with overlying soft tissue swelling suggestive of acute osteomyelitis. Normal second through fifth metatarsophalangeal joints. There is evidence of prior resection of the second toe. There is only a small remnant of the proximal phalanx of the second toe. Diffuse soft tissue swelling. RAD/Foot min 3 Views IMPRESSION: Soft tissue swelling and bony resorption of the distal phalanx of the great toe in keeping with osteomyelitis. Prior amputation of the second toe. Electronically Signed: Los Kwong, at 14:21 EDT , Service support ,
--- NOTE | 2020-03-08 13:27 | ED.VISSUMM ---
- ER Visit Summary Date of Service: 03/08/20 Chief Complaint: Right great toe pain History of Present Illness: The patient is a [address] Ricketts. He reports that he had his right second toe amputated 3 to 4 years ago. He does not remember who did this. States that he brought a new pair of shoes and developed a blister on his toe 5 days ago. 2 days ago he got in his swimming pool and reports toe has been much more swollen and painful since then. Is a sharp pain is 10 of 10 with walking and 8 of 10 at rest. He reports that he has neuropathy from his diabetes. He denies any new paresthesias or weakness. Patient denies any constitutional symptoms. No fever, chills, nausea, or vomiting. Physical Examination: Vitals: Stable. Afebrile. General: Well-nourished and well-developed. Head: Normocephalic atraumatic. Neck: Supple, no lymphadenopathy. No JVD. Nontender. Cardiovascular: Regular rate and rhythm. No murmurs. Respiratory: No respiratory distress. Clear to auscultation bilaterally. Abdominal: Soft, nontender, nondistended, normal bowel sounds. No guarding, rebound, or peritoneal signs. Back: Nontender. Extremities: Lateral side of the distal phalanx of his right great toe has a necrotic ulcer present. There is a vesicle proximal to this. The distal medial side of his toe is pale. He has erythema that extends up to the midfoot. There is no palpable dorsalis pedis pulse. Neurologic: Alert and oriented ?3. Cranial nerves II through XII are intact. Normal strength and sensation. Psych: Normal affect. Test Results: CBC shows a white count of 17.6 with 81 segmented neutrophils, 9 lymphocytes, and 1.0% immature granulocytes. Coags are normal. Sed rate is 80. Lactic acid is 2.2. Chem-7 shows a sodium 131 however this is normal when corrected for his glucose of 476. Chloride 97 BUN 20. LFTs show total protein of 8.9, albumin of 2.5, and globulin of 6.4. CRP is 262. Clinical Impression(s) from Imaging Studies Foot X-Ray 03/08/20 13:14 IMPRESSION: Soft tissue swelling and bony resorption of the distal phalanx of the great toe in keeping with osteomyelitis. Prior amputation of the second toe. Electronically Signed: Los Kwong, at 14:21 EDT , Service support , Emergency Department Course and Treatment: Patient had an IV placed. He was given Rocephin, Flagyl, and vancomycin IV. Cultures were obtained. He was given morphine for his pain. Treatment Plan: Patient was discussed with Dr. Murillo and Dr. Baer. He will be admitted to the hospital for further evaluation and treatment. Disposition: Admitted in improved condition. Impression: 1. Infected ulcer right great toe. 2. Diabetes mellitus. 3. Severe sepsis. 4. Osteomyelitis right great toe distal phalanx. This note was generated with [email or web address] dictation software. It may contain incorrect words, spelling, and punctuation that were not noted in review of the chart prior to signing ED Disposition - Plan for ED Patient: Referrals: Floyd Ricketts DO [Primary Care Provider] -
[2020-03-08 14:09] LABS: Erythrocyte Sedimentation Rate 80 mm/hr (0-20)
[2020-03-08] MEDS: metroNIDAZOLE 500 MG/100 ML BAG 100 MG IV (14:15)
[2020-03-08 14:16] LABS: Absolute Lymphocyte Count 1.55 X10^3/uL (0.83-4.51); Absolute Neutrophil Count 14.3 X10^3/uL (2.0-7.7); Basophil# 0.05 X10^3/uL; Basophil% 0.3 % (0-1); Differential Indicated SCAN CRITERIA MET; Eosinophil# 0.03 X10^3/uL; Eosinophils% 0.2 % (0-5); Hematocrit 44.8 % (40-54); Hemoglobin 14.2 g/dL (13.0-16.5); Lymphocyte # 1.55 X10^3/ul (4.0); Lymphocyte % 8.8 % (19-41); Mean Corp Hgb Conc 31.7 g/dL (32-36); Mean Corpuscular Hgb 29.8 pg (27.0-32.0); Mean Corpuscular Volume 93.9 fL (80-94); Mean Platelet Vol. 10.4 fl (6.2-12.0); Monocyte# 1.51 X10^3/uL; Monocyte% 8.6 % (0-10); NRBC Flagged by Analyzer 0 % (0-5); Neutrophil # 14.25 X10^3/uL (2.7-7.7); Neutrophil % 81.1 % (47-70); POSITIVE DIFFERENTIAL YES; Platelet Count 329 K/mm3 (150-450); RBC Distribution Width CV 13.4 % (11.6-14.6); RBC Distribution Width SD 46.5 fl (35.1-43.9); Red Blood Count 4.77 M/mm3 (4.6-6.2); White Blood Count 17.6 K/mm3 (4.4-11.0)
[2020-03-08] MEDS: Morphine 4 MG/ML Syringe IV (14:16)
[2020-03-08] MEDS: Ondansetron 4 MG/2 ML Vial IV (14:16)
[2020-03-08] MEDS: Ceftriaxone 1 GM/50 ML BAG IV (14:16)
[2020-03-08 14:29] LABS: International Normalized Ratio 1.1; Prothrombin Time (Protime)PT. 13.6 SECONDS (11.7-14.9)
[2020-03-08 14:30] LABS: Partial Thromboplast Time 40.5 Seconds (24.1-36.2)
[2020-03-08 14:34] LABS: Lactic Acid 2.2 mmol/L (0.4-1.9)
[2020-03-08 14:53] LABS: ALB/GLOB Ratio 0.4 RATIO (0.9-2.4); AST(SGOT) 31 U/L (15-37); Alanine Aminotransfer ALT/SGPT 43 U/L (16-61); Albumin, Serum 2.5 g/dL (3.2-5.0); Alkaline Phosphatase 97 U/L (45-117); Anion Gap 9 (5-15); BUN 20 mg/dL (7-18); BUN/Creat Ratio 20.3 RATIO (10-20); Calcium,Total 9.4 mg/dL (8.5-10.1); Chloride 97 mmol/L (98-107); Creatinine, Serum 0.98 mg/dL (0.70-1.30); EST Glomerular Filtration Rate 80 mL/min (>60); Est Glom Filt Rate - Afr Amer 97 mL/min (>60); Globulin 6.4 g/dL (2.2-4.2); Glucose 476 mg/dL (74-106); Potassium 4.6 mmol/L (3.5-5.1); Protein, Total 8.9 g/dL (6.4-8.2); Sodium Level 131 mmol/L (136-145)
--- NOTE | 2020-03-08 15:03 | PCM.HP.STD ---
Problem List (1) Severe sepsis Status: Acute (2) Osteomyelitis of great toe of right foot Status: Acute (3) Cellulitis of right foot Status: Acute (4) HLD (hyperlipidemia) Status: Chronic Qualifiers: Hyperlipidemia type: unspecified Qualified Code(s): E78.5 - Hyperlipidemia, unspecified (5) Obesity (BMI 30-39.9) Status: Chronic (6) Uncontrolled type II diabetes mellitus Status: Chronic Qualifiers: Glycemic state: with hyperglycemia Qualified Code(s): E11.65 - Type 2 diabetes mellitus with hyperglycemia (7) PAD (peripheral artery disease) Status: Chronic (8) HTN (hypertension) Status: Chronic Qualifiers: Hypertension type: unspecified Qualified Code(s): I10 - Essential (primary) hypertension (9) Hypothyroid Status: Chronic Qualifiers: Hypothyroidism type: unspecified Qualified Code(s): E03.9 - Hypothyroidism, unspecified History of Present Illness Date of Admission: 03/08/20 Chief Complaint: R great toe edema, pain, redness The patient is a 69 y/o M w/ PMHx: PAD with prior R 2nd toe amputation, HTN, HLD, Hypothyroidism, Diabetes mellitus type II, Obesity who presents to the [facility] ED on 03/08/20 history of utilizing new shoes, not diabetic specific shoes approximately 5 days prior to current presentation with unfortunate blister on the superior portion of the right great toe following usage with then participation in a pool democrat for his grandson 2 days prior to current presentation with worsening appearance of the right great toe with onset over the last 24-48 hrs with erythema extending up to the midfoot, increased swelling, pain, constant, throbbing, waxing and waning from 5-8 in severity, worse with activity and with lowering of the extremity prompting eventual ED presentation. Patient does admit that his blood sugars have been significantly elevated at home. On his SEP there is insulin noted but he denies being on any insulin and only on oral medicines. Work-up in the ED included T 96.1, heart rate 99 BP 142/79, respiratory rate 18, 97% on room air, CBC with WBC 17.6, hemoglobin 14.2, platelet 329 with left shift, coags with PT 13.6, INR 1.1, PTT 40.5, CMP with sodium 131, chloride 97, BUN/creatinine 20/0.88, glucose 476, lactic acid 2.2, ESR 80, CRP 262 otherwise hepatic profile unremarkable, blood culture x2 pending per ED, plain film of the right foot with soft tissue swelling and bony reabsorption of the distal phalanx of the great toe consistent with osteomyelitis and evidence prior imitation second toe. In the ED patient ministered vancomycin, normal saline, Zofran, morphine, Flagyl, Rocephin therapy. 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) Hallux limitus (Chronic) Chronic ulcer of left foot with fat layer exposed (Chronic) Hammertoe of right foot (Chronic) Hammertoe of left foot (Chronic) Delayed wound healing (Chronic) HLD (hyperlipidemia) (Chronic) Obesity (BMI 30-39.9) (Chronic) Uncontrolled type II diabetes mellitus (Chronic) PAD (peripheral artery disease) (Chronic) HTN (hypertension) (Chronic) Hypothyroid (Chronic) Diabetes mellitus (Chronic) Medical History: Medical History (Last Updated 08/30/17 @ 07:15 by Ranjana Tam) PAD (peripheral artery disease) (Chronic) I73.9 HTN (hypertension) (Chronic) I10 Hypothyroid (Acute) E03.9 Diabetes mellitus (Chronic) E11.9 Allergies No Known Allergies Allergy (Verified 03/08/20 12:31) Home Medications: Ambulatory Orders Medication Instructions Recorded Canagliflozin [Invokana] 100 mg PO DAILY 08/21/17 Insulin Glargine,Hum.rec.anlog 160 unit SC DAILY 08/21/17 [Delmi Solostar] Levothyroxine Sodium [Synthroid] 100 mcg PO DAILY 08/21/17 Pioglitazone [Actos] 45 mg PO DAILY 08/21/17 Sitagliptin Phos/Metformin HCl 1 tab PO BID 08/21/17 [Janumet Xr 50-1,000 mg Tablet] Aspirin [Aspirin, Baby] 81 mg PO DAILY@0800 #30 tab.chew 08/24/17 Multivitamin [Multiple Vitamins] 1 each PO DAILY 09/12/17 Ascorbic Acid [Vitamin C] 500 mg PO DAILY 09/26/17 Surgical History: Surgical History (Last Updated 08/30/17 @ 07:15 by Ranjana Tam) S/P tonsillectomy (Acute) Z90.89 S/P colonoscopy (Acute) Z98.890 Surgical History: tonsillectomy, - - Right second toe amputation. Psychiatric History: No pertinent psych hx Lives: Alone Smoking Status: Former smoker - Patient quit cigarette tobacco usage approximately 20 years prior with prior to this 1 to 2 pack/day since he was 10 years old. Tobacco Use: Non-smoker Alcohol: None Drugs: None - *Family History Maternal Family History: Family History (Last Updated 08/30/17 @ 07:15 by Ranjana Tam) Father Diabetes Heart disease Hypertension History Items: - - Patient denies any market maternal family history including heart disease, diabetes, cancer and denies any history of her having taken any medications. Paternal Family History: Family History (Last Updated 08/30/17 @ 07:15 by Ranjana Tam) Father Diabetes Heart disease Hypertension History Items: Diabetes, Heart Disease, Hypertension Review of Systems Constitutional: Reports: Malaise, Weakness, Fatigue. Denies: Anorexia, Chills, Fever, Weight Change HEENT: Denies: Head Aches, Sinus Congestion, Sinus Drainage Cardiovascular: Denies: Chest Pain, Palpitations Respiratory: Denies: Cough, Shortness of breath at rest, Sputum production Gastrointestinal: Denies: Abdominal Pain, Nausea, Vomiting Genitourinary: Denies: Dysuria Musculoskeletal: Reports: Foot Pain, Joint Pain, Joint stiffness, Joint swelling, Joint Tenderness Skin: Reports: Skin Changes, Wounds. Denies: Rash Neurological: Denies: Numbness, Tingling, Focal weakness Psychiatric: Denies: Anxiety, Depression, Homicidal Ideations, Suicidal Ideations Hematologic/ Lymphatic: Denies: Easy Bruising, Easy Bleeding VTE Information - Inpt Only VTE Present on Admission: No VTE Mechan Device Prophylaxis: SCD's VTE Pharm Prophylaxis ordered?: Yes Patient Problems: Active and Suspected Problems (Last Updated 08/30/17 @ 07:15 by Ranjana Tam) Severe sepsis (Acute) Osteomyelitis of great toe of right foot (Acute) Cellulitis of right foot (Acute) Subjective: Patient seated upright in the ED bed, irritable, fatigued otherwise no acute distress, does admit to ongoing right great toe pain, currently 5 out of 10 in severity. Objective: Physical Examination: General: awake, alert, oriented x 3 and cooperative, seated upright in the ED bed, mildly irritable, uncomfortable. Skin: normal color, turgor, no icterus, cyanosis except significant right foot erythema extending to midfoot, edema extending to mid calf region circumferentially, warm to touch, right great toe and inclusive dorsal and plantar surface blistering, ulceration, noted purulent discharge. HEENT: AT/NC, EOMI, PERRLA, moderately dry MM, no carotid bruits or JVD noted. Lungs: CTA bilaterally, moderate effort, mild decrease BL bases, no rales, ronchi or wheezing. Heart: Mildly tachycardic with regular rhythm; no gallop, rub audible. Abdomen: soft, obese, NTTP, ND, normal BS, no HSM. Extremities: no cyanosis, clubbing, see skin, significant right lower extremity edema given acute presentation as noted. Neurological: patient awake, alert, oriented x 3; cognitive function intact; pupils equally reactive to light and accomodation; cranial nerves II-XII grossly normal, moving all 4 extremities although some limitation with right lower extremity movements given pain elicited, strength accordingly moderately to severely global decreased. Psychiatric: affect appears mildly irritable and uncomfortable, no acute evidence of depressive or anxiety feelings. - Physical Exam Vitals/I&O's: Vital Signs Temp Pulse Resp BP Pulse Ox 96.1 F L 98 18 142/79 H 97 03/08/20 12:32 03/08/20 12:32 03/08/20 12:32 03/08/20 12:32 03/08/20 14:14 Oxygen Delivery Method Room Air Weight: 290 lb Body Mass Index (BMI) 38.2 Laboratory Results 03/08/20 13:40: WBC 17.6 H, RBC 4.77, Hgb 14.2, Hct 44.8, MCV 93.9, MCH 29.8, MCHC 31.7 L, RDW Std Deviation 46.5 H, RDW Coeff of Nyla 13.4, Plt Count 329, MPV 10.4, Immature Gran % (Auto) 1.000 H, Neut % (Auto) 81.1 H, Lymph % (Auto) 8.8 L, [place] % (Auto) 8.6, Eos % (Auto) 0.2, Baso % (Auto) 0.3, Absolute Neuts (auto) 14.3 H, Absolute Lymphs (auto) 1.55, Nucleated RBC % 0, ESR 80 H 03/08/20 13:40: PT 13.6, INR 1.1, APTT 40.5 H 03/08/20 13:40: Sodium 131 L, Potassium 4.6, Chloride 97 L, Carbon Dioxide 25.0, Anion Gap 9, BUN 20 H, Creatinine 0.98, Estim Creat Clear Calc 80.40, Est GFR (MDRD) Af Amer 97, Est GFR (MDRD) Non-Af 80, BUN/Creatinine Ratio 20.3 H, Glucose 476 H*, Calcium 9.4, Total Bilirubin 0.60, AST 31, ALT 43, Alkaline Phosphatase 97, C-React Prot Ext Range 262.00 H, Total Protein 8.9 H, Albumin 2.5 L, Globulin 6.4 H, Albumin/Globulin Ratio 0.4 L 03/08/20 13:40: Lactic Acid 2.2 H* Current Medications Vancomycin HCl 2,000 mg/ (Sodium Chloride) 540 mls @ 250 mls/hr IV X1 ONE Stop: 03/08/20 15:39 Assessment/Plan All Active Problems (Last Updated 08/30/17 @ 07:15 by Ranjana Tam) Ulcer of right foot with fat layer exposed (Resolved) Severe sepsis (Acute) Osteomyelitis of great toe of right foot (Acute) Cellulitis of right foot (Acute) S/P tonsillectomy (Acute) S/P colonoscopy (Acute) redness of right second toe (Acute) swelling of right second toe (Acute) The patient is a 69 y/o M w/ PMHx: PAD with prior R 2nd toe amputation, HTN, HLD, Hypothyroidism, Diabetes mellitus type II, Obesity who presents to the [facility] ED on 03/08/20 history of utilizing new shoes 5 days prior with onset blister on the superior portion of the right great toe with then pool democrat participation with worsening appearance of the right great toe with onset over the last 24-48 hrs with erythema extending up to the midfoot, increased swelling, pain. 1. Acute Severe Sepsis secondary to Acute R Great Toe Osteomyelitis with right foot cellulitis: Patient with tachycardia, significant leukocytosis with left shift, lactic acidosis, will admit to PCU per protocol, maintain on IV vancomycin and Zosyn therapy pending wound culture and MRSA PCR wound, allow diet now per discussion with podiatry but will maintain n.p.o. after midnight pending MRI of the right lower extremity to discern surgical intervention needs, PRN oral and IV narcotic therapy, PRN antiemetics, continue affected extremity elevation above heart when seated and in bed, monitor erythema outline with VS checks, Doppler checks given chronic difficulty with obtaining pulses bilaterally in addition to wound RN consultation and dressing changes as needed, JASMYN PVRs ordered as noted given PAD history. 2. Uncontrolled diabetes mellitus type II with hyperglycemia: Will hold oral home regimen, will need to clarify home insulin regimen, ADA diet until n.p.o. status after midnight, will obtain hemoglobin A1c, nutrition consultation for education and teaching, Accu checks w/ ISS. 3. PAD: Patient reports PAD history, JASMYN PVRs ordered especially given operative intervention needs, continue aspirin therapy, will obtain FLP in a.m. and initiate on statin therapy, monitor blood pressure and add regimen if appropriate given this history. 4. ? Hypertension: Noted history, not on regimen, will monitor blood pressures and add oral regimen specifically LISA inhibitor first given history, PRN IV hydralazine in interim. 5. Hyperlipidemia: Not on regimen, intention to add moderate dose statin given PAD history, obtain FLP in AM. 6. Obesity: Weight loss and lifestyle changes encouraged. 7. Hypothyroidism: Continue home synthroid regimen, 8. DVT prophylaxis: SCDs, Lovenox. 9. CODE status: Patient does not have healthcare power of attorney at law nor living will. He notes that his passed greater than 1 year prior and is interested in setting these items up and notes it is granddaughter would be the person he would be interested in having as his healthcare power of attorney at law. Advised patient to discuss these concerns and interest in information with case management/social work during his admission. Discussed CODE status at length including difference between FULL code, DNR-CCA and DNR-CC status. Following discussions about the differences in these status, requested DNR CCA, no intubation however okay with intubation for procedures. Advanced Care Planning Face to Face Time: 16 minutes. Inpatient E&M: 36622 Init Hosp L3 Procedures: 43568 Advncd Care Plan 30 Min
--- NOTE | 2020-03-08 15:08 | NURSING ---
MED SURG WHITE OSTEOMYELITIS RT 1ST TOE
--- NOTE | 2020-03-08 15:24 | ED.RN ---
THIS NURSE ENTERED PT ROOM TO OBTAIN IV ACCESS AND COLLECT LABS. UPON ENTERING ROOM THIS NURSE INFORMED PT OF PLAN OF CARE AND ORDERS. PT VERBALIZED UNDERSTANDING AND REQUESTED A CUP OF WATER TO DRINK. PT MADE AWARE AT THAT TIME THAT CONCERN FOR WATER WOULD BE ADDRESSED WITH THE PHYSICIAN SOON REASONABLY POSSIBLE. LABS WERE COLLECTED AND IV X2 WERE ACCESSED. THIS NURSE LEFT PT ROOM TO GET ORDERED MEDICATIONS. PHYSICIAN WAS WITH ANOTHER PT, AND THIS WAS EXPLAINED TO THE PT BUT WAS ASSURED THAT THE REQUEST WOULD BE ADDRESSED AGAIN AFTER MEDICATIONS WERE GIVEN. PT BECAME VERY ANGRY AND VERBALLY AGGRESSIVE AND STATED THAT HE DID NOT CARE WHAT THE DOCTOR SAYS, I'LL HAVE WATER IF I WANT IT. I HAVE COTTON MOUTH. THE PT BEGAN TO GET OUT OF BED. THIS NURSE APOLOGIZED AND REQUESTED THAT THE PT RETURN TO THE BED AND THE PHYSICIAN WOULD BE ASKED IMMEDIATELY. THE PHYSICIAN WAS UNABLE TO BE QUICKLY LOCATED, AND THE PT CONTINUED TO YELL OUT INTO THE HALLWAY. A SMALL CUP OF WATER WAS GIVEN TO THE PT AND THE PT GRUFFLY APOLOGIZED, STATING THAT HE WAS THIRSTY AND THAT HE HAD BEEN WAITING FOR TWO HOURS FOR SOMETHING TO DRINK. THIS NURSE AGAIN APOLOGIZED AND ADVISED THE PT THAT YELLING AT STAFF AND BEING VERBALLY ABUSIVE AND AGGRESSIVE WAS UNACCEPTABLE BEHAVIOR AND THAT IT WOULD NOT BE TOLERATED. HE AGAIN BEGAN TO YELL AND STATED THAT SPEAKING TO STAFF WITH A SHARP TONGUE IS HOW HE GETS THINGS DONE THAT HE WANTS. AT THAT TIME THE MEDIC ENTERED THE ROOM AND AGAIN REITERATED THAT VERBALLY AGGRESSIVE BEHAVIOR IS DISRESPECTFUL AND WOULD NOT BE TOLERATED TOWARDS STAFF. THE PT CONTINUED TO ARGUE AND YELL BRIEFLY BEFORE MEDICATIONS WERE COMPLETED FOR THE PT AND THIS NURSE LEFT THE ROOM. THIS NURSE AGAIN APOLOGIZED FOR HIS WAIT.
[2020-03-08 15:54] LABS: Platelet Estimate ADEQUATE (ADEQ); Red Cell Morphology NORM C+C NORMAL (NORM C&C)
--- NOTE | 2020-03-08 16:12 | MRI_ITS ---
HISTORY: Rule out big toe osteomyelitis. Symptoms been ongoing for weeks. Be gangrenous. Started new shoe. Comparison x-rays are from 3 hours earlier. Findings: There appears to be severe swelling about the great toe. There is cellulitis about the entire foot. There is myofascitis about the great toe and the second digit. Abnormal increased T2-weighted signal is present throughout the first distal phalanx. This disease is greater laterally than medially. The distal and middle phalanges of the second toe have been resected. There is a remaining piece of the proximal phalanx of the second toe. It is difficult to assess if there is edema within the fifth digit phalanges versus asymmetric fat suppression. I favor asymmetric fat suppression. MRI/Lower Ext No Joint W/WO Cont IMPRESSION: Osteomyelitis within the distal phalanx of the great toe. Cellulitis. Myofascitis. at 0603 Reported and signed by: Javon Engel MD Electronically Signed: Javon Engel MD at 6:02 EDT Tel , Service support ,
--- NOTE | 2020-03-08 16:12 | ART_ITS ---
Reason For Study: Rt great toe osteomylitis Procedure A bilateral lower extremity continuous wave Doppler with analog waveform analysis and ankle brachial indexes. Left Segmental Pressures Left brachial= 151mmHg. Left posterior tibial artery = 88mmHg. Left dorsalis pedis artery = 77mmHg. The left dorsalis pedis waveforms are monophasic. The left posterior tibial artery waveforms are monophasic. Right Segmental Pressures Right brachial= 154mmHg. Right posterior tibial artery = 91mmHg. Right dorsalis pedis artery = 72mmHg. The right dorsalis pedis waveforms are monophasic. The right posterior tibial artery waveforms are monophasic. Indices The right ankle brachial index by the dorsalis pedis is 0.47. The right ankle brachial index by the posterior tibial artery is 0.59. The left ankle brachial index by the dorsalis pedis is 0.50. The left ankle brachial index by the posterior tibial artery is 0.57. Interpretation Summary Moderately severe bilateral lower extremity arterial occlusive disease based upon ankle-brachial indices. Bilateral posterior tibial and dorsalis pedis waveforms are monophasic suggesting potential for more severe level of disease or multisegmental disease Ordering Physician: Sandra Baer Referring Physician: Floyd Ricketts Performed By: Christina Brennan RVT and Student
--- NOTE | 2020-03-08 16:42 | CON.PCM_ITS ---
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 (3) Osteomyelitis Status: Chronic Qualifiers: Osteomyelitis type: other acute Osteomyelitis location: foot Laterality: right Qualified Code(s): M86.171 - Other acute osteomyelitis, right ankle and foot (4) Type 2 diabetes mellitus with diabetic polyneuropathy Status: Chronic (5) Gangrene of toe of right foot Status: Chronic (6) Obesity (BMI 30-39.9) Status: Chronic (7) Uncontrolled type II diabetes mellitus Status: Chronic Qualifiers: Glycemic state: with hyperglycemia Qualified Code(s): E11.65 - Type 2 diabetes mellitus with hyperglycemia Reason for Consult Date of Consultation: 03/08/20 History of Present Illness: The patient is a 69 year old M who present with right hallux wound. Patient has history of right 2nd toe. Patient states he got new shoes which rubbed a blister on his big toe which caused the wound 5 days ago. Patient states he can't feel his toe. Patient's toe is discolored.[] Past Medical History Past Medical History (Chronic Problems): Chronic Problems (Last Updated 08/30/17 @ 07:15 by Ranjana Tam) Ulcer of right foot with fat layer exposed (Chronic) Ulcer of right foot with necrosis of muscle (Chronic) Osteomyelitis (Chronic) Type 2 diabetes mellitus with diabetic polyneuropathy (Chronic) Gangrene of toe of right foot (Chronic) Hallux limitus (Chronic) Chronic ulcer of left foot with fat layer exposed (Chronic) Hammertoe of right foot (Chronic) Hammertoe of left foot (Chronic) Delayed wound healing (Chronic) HLD (hyperlipidemia) (Chronic) Obesity (BMI 30-39.9) (Chronic) Uncontrolled type II diabetes mellitus (Chronic) PAD (peripheral artery disease) (Chronic) HTN (hypertension) (Chronic) Hypothyroid (Chronic) Diabetes mellitus (Chronic) Medical History: Medical History (Last Updated 08/30/17 @ 07:15 by Ranjana Tam) PAD (peripheral artery disease) (Chronic) I73.9 HTN (hypertension) (Chronic) I10 Hypothyroid (Chronic) E03.9 Diabetes mellitus (Chronic) E11.9 Allergies No Known Allergies Allergy (Verified 03/08/20 12:31) Home Medications: Ambulatory Orders Medication Instructions Recorded Canagliflozin [Invokana] 100 mg PO DAILY 08/21/17 Levothyroxine Sodium [Synthroid] 100 mcg PO DAILY 08/21/17 Pioglitazone [Actos] 45 mg PO DAILY 08/21/17 Sitagliptin Phos/Metformin HCl 1 tab PO BID 08/21/17 [Janumet Xr 50-1,000 mg Tablet] Aspirin [Aspirin, Baby] 81 mg PO DAILY@0800 #30 tab.chew 08/24/17 Multivitamin [Multiple Vitamins] 1 each PO DAILY 09/12/17 Ascorbic Acid [Vitamin C] 500 mg PO DAILY 09/26/17 Surgical History: Surgical History (Last Updated 08/30/17 @ 07:15 by Ranjana Tam) S/P tonsillectomy (Acute) Z90.89 S/P colonoscopy (Acute) Z98.890 Surgical History: tonsillectomy, - - Right second toe amputation. Psychiatric History: No pertinent psych hx Lives: Alone Smoking Status: Former smoker Tobacco Use: Non-smoker Alcohol: None Drugs: None - *Family History Maternal Family History: Family History (Last Updated 08/30/17 @ 07:15 by Ranjana Tam) Father Diabetes Heart disease Hypertension History Items: - - Patient denies any market maternal family history including heart disease, diabetes, cancer and denies any history of her having taken any medications. Paternal Family History: Family History (Last Updated 08/30/17 @ 07:15 by Ranjana Tam) Father Diabetes Heart disease Hypertension History Items: Diabetes, Heart Disease, Hypertension Review of Systems Constitutional: Denies: Chills, Fever Cardiovascular: Denies: Chest Pain Respiratory: Reports: Shortness of Breath. Denies: Cough Skin: Reports: Wounds - right hallux Neurological: Reports: - - decreased epicritic sensation to feet Patient Problems: Active and Suspected Problems (Last Updated 08/30/17 @ 07:15 by Ranjana Tam) Severe sepsis (Acute) Osteomyelitis of great toe of right foot (Acute) Cellulitis of right foot (Acute) - Physical Exam Vitals/I&O's: Vital Signs Temp Pulse Resp BP Pulse Ox 97.8 F 96 17 154/74 H 93 03/08/20 16:03/08/20 16:03/08/20 16:03/08/20 16:09 03/08/20 16:09 Oxygen Flow Rate (L/min) 2 Oxygen Delivery Method Nasal Cannula Weight: 131.723 kg Body Mass Index (BMI) 38.2 Intake and Output for Last 24 Hours 03/06/20 03/07/20 03/08/20 23:59 23:59 23:59 Intake Total 150 / 150 Balance 150 / 150 General: Alert, Oriented x3 HEENT: Atraumatic Extremities: Cyanosis, Diminished Peripheral Pulses, Edema, - - right 2nd digit amputation. Right hallux pallor/cynaotic with delayed CFT and cool to the touch. Necrotic area distally with wound laterally probing to bone. Sanginous drainage. DP/PT 2/4 with foot cooling at toe level. No crepitus. Skin: Ulcer/ Wound Musculoskeletal: No Tenderness to Palpation of Joints or Extremities Neurological: - - decreased light touch sensation to touch and pain Laboratory Results 03/08/20 13:40: WBC 17.6 H, RBC 4.77, Hgb 14.2, Hct 44.8, MCV 93.9, MCH 29.8, MCHC 31.7 L, RDW Std Deviation 46.5 H, RDW Coeff of Nyla 13.4, Plt Count 329, MPV 10.4, Immature Gran % (Auto) 1.000 H, Neut % (Auto) 81.1 H, Lymph % (Auto) 8.8 L , [place] % (Auto) 8.6, Eos % (Auto) 0.2, Baso % (Auto) 0.3, Absolute Neuts (auto) 14.3 H, Absolute Lymphs (auto) 1.55, Nucleated RBC % 0, Differential Comment , Diff Path Review May foll, Platelet Estimate ADEQUATE, RBC Morphology NORM C+C, ESR 80 H 03/08/20 13:40: PT 13.6, INR 1.1, APTT 40.5 H 03/08/20 13:40: Sodium 131 L, Potassium 4.6, Chloride 97 L, Carbon Dioxide 25.0, Anion Gap 9, BUN 20 H, Creatinine 0.98, Estim Creat Clear Calc 80.40, Est GFR (MDRD) Af Amer 97, Est GFR (MDRD) Non-Af 80, BUN/Creatinine Ratio 20.3 H, Glucose 476 H*, Calcium 9.4, Total Bilirubin 0.60, AST 31, ALT 43, Alkaline Phosphatase 97, C-React Prot Ext Range 262.00 H, Total Protein 8.9 H, Albumin 2.5 L, Globulin 6.4 H, Albumin/Globulin Ratio 0.4 L 03/08/20 13:40: Lactic Acid 2.2 H* 03/08/20 13:40: Magnesium Pending 03/08/20 13:40: Hemoglobin A1c Pending Current Medications Acetaminophen (Tylenol) 650 mg PO Q6H PRN PRN PRN Reason: Pain Score 1-10/Temp > 100.7 F Al Hydroxide/Mg Hydroxide (Mylanta Ii) 30 ml PO Q6H PRN PRN PRN Reason: Gastric Burning Ascorbic Acid (Vitamin C) 500 mg PO DAILY [facility] Aspirin (Aspirin, Baby) 81 mg PO DAILY@0800 [facility] Atorvastatin Calcium (Lipitor) 40 mg PO QHS [facility] Enoxaparin Sodium (Lovenox) 40 mg SC DAILY [facility] Famotidine (Pepcid) 20 mg PO BID [facility] Guaifenesin (Robitussin) 20 ml PO Q4H PRN PRN PRN Reason: COUGH Hydralazine HCl (Apresoline Iv) 10 mg IV Q4H PRN PRN PRN Reason: SBP > 160 Hydromorphone HCl (Dilaudid Inj) 0.5 mg IV Q4H PRN PRN PRN Reason: Pain Score 6-10/10 Piperacillin Sod/Tazobactam (Sod 3.375 gm/ Sodium Chloride) 50 mls @ 12.5 mls/hr IV Q8 [facility] Insulin Glargine (Lantus (Bkc)) 50 units SC DAILY [facility] Insulin Human Lispro (Humalog Kwikpen (Bkc)) 0 unit SC ACHS [facility]; Protocol Levothyroxine Sodium (Synthroid) 100 mcg PO DAILY@0600 [facility] Magnesium Hydroxide (Milk Of Magnesia) 30 ml PO DAILY PRN PRN PRN Reason: Constipation Multivitamins (Multivitamin) 1 tablet PO DAILY@0800 [facility] Ondansetron HCl (Zofran) 4 mg IV Q8H PRN PRN PRN Reason: NAUSEA/VOMITING Oxycodone HCl (Oxyir) 10 mg PO Q4H PRN PRN PRN Reason: Pain Score 4-5/10 Prochlorperazine Edisylate (Compazine Iv) 5 mg IV Q4H PRN PRN PRN Reason: Breakthrough nausea/vomiting Psyllium Hydrophilic Mucilloid (Metamucil) 1 packet PO DAILY PRN PRN PRN Reason: Constipation Senna/Docusate Sodium (Senokot-S, Maxine-Colace) 2 tablet PO BID PRN PRN PRN Reason: Constipation Sodium Chloride () 10 - 40 ml IV UD PRN PRN Reason: SALINE FLUSH Temazepam (Restoril) 15 mg PO QHS PRN PRN PRN Reason: INSOMNIA Throat Lozenges (Cepacol Sore Throat Lozenge) 1 lozenge MUCOUS MEM Q2H PRN PRN PRN Reason: SORE THROAT Assessment/Plan All Active Problems (Last Updated 08/30/17 @ 07:15 by Ranjana Tam) Severe sepsis (Acute) Osteomyelitis of great toe of right foot (Acute) Cellulitis of right foot (Acute) S/P tonsillectomy (Acute) S/P colonoscopy (Acute) redness of right second toe (Acute) swelling of right second toe (Acute) Right hallux ulceration into bone right hallux necrosis DM2 with neuropathy osteomyelitis right hallux pain right hallux Patient seen and examined Reviewed XR and discussed findings with patient. XR shows osteomyelitis to distal phalanx of hallux. Discussed need for amputation to remove bone infection. Discussed all risks, benefits, complications, alternatives. Patient understood and agreed to treatment plan. Patient to get MRI to find extent of infection Discussed that amputation may have to be more proximal depending on MRI findings and in order to get adaquate skin closure Follow cultures Follow PVR results Consider vascular studies to assess wound healing potential Plan for amputation of the right great toe. Probably tomorrow 03/09/20, will need to confirm with OR. NPO after midnight.
[2020-03-08 17:08] LABS: Hemoglobin A1c 13.3 % (3.8-5.6)
[2020-03-08 17:15] LABS: Bedside Glucose 439 mg/dL (70-110)
[2020-03-08] MEDS: Insulin Lispro 100 UNIT/ML INSULN.PEN SC ×3 (17:18→23:21)
[2020-03-08 17:52] LABS: Reflex Lactate? Y
[2020-03-08 19:59] LABS: M R Staph aureus DNA By PCR Negative (Negative); Probe Check PASS; Specimen Processing Control PASS; Staph aureus DNA By PCR NEGATIVE (Negative)
[2020-03-08 20:20] LABS: Lactic Acid 2.1 mmol/L (0.4-1.9)
[2020-03-08 21:01] LABS: Magnesium 2.3 mg/dL (1.6-2.6)
[2020-03-08] MEDS: oxyCODONE 5 MG Tablet 10 MG PO (21:58)
[2020-03-08] MEDS: Atorvastatin Calcium 40 MG Tablet PO (22:00)
[2020-03-08] MEDS: Famotidine 20 MG Tablet PO (22:00)
[2020-03-08 23:00] LABS: Bedside Glucose 417 mg/dL (70-110)
[2020-03-08 23:18] LABS: Probe Check PASS; Specimen Processing Control PASS
[2020-03-09] VITALS (18 sets, daily range): BP systolic 130–156; BP diastolic 53–75; PULSE 80–96; RESP 16–18; TEMP 36.3–37.1; O2SAT 94–98; BMI 38.3
--- NOTE | 2020-03-09 02:51 | NURSING ---
2200 Pt refused to have dressing applied to right great toe per orders. States NO it only hurts it when its on.
--- NOTE | 2020-03-09 05:55 | EKG12_ITS ---
Test Reason : PRE-OP Blood Pressure : / mmHG Vent. Rate : 085 BPM Atrial Rate : 085 BPM P-R Int : 154 ms QRS Dur : 108 ms QT Int : 376 ms P-R-T Axes : -23 008 018 degrees QTc Int : 447 ms Normal sinus rhythm Normal ECG When compared with ECG of 19-SEP-2017 12:34, No significant change was found Confirmed by ASH SALINAS [id number]), senior editor CYNTHIA NAIK ([id number]) on 03/11/2020 9:13:57 AM Referred By: DR STEPHENS Confirmed By:ASH SALINAS
[2020-03-09] MEDS: Levothyroxine 100 MCG Tablet PO (06:14)
[2020-03-09] MEDS: Insulin Lispro 100 UNIT/ML INSULN.PEN SC ×4 (06:31→21:35)
[2020-03-09 06:54] LABS: ALB/GLOB Ratio 0.4 RATIO (0.9-2.4); AST(SGOT) 16 U/L (15-37); Alanine Aminotransfer ALT/SGPT 30 U/L (16-61); Alkaline Phosphatase 73 U/L (45-117); Anion Gap 6 (5-15); BUN 15 mg/dL (7-18); BUN/Creat Ratio 20.4 RATIO (10-20); Calcium,Total 8.6 mg/dL (8.5-10.1); Chloride 101 mmol/L (98-107); Cholesterol 83 mg/dL (200); Creatinine, Serum 0.74 mg/dL (0.70-1.30); EST Glomerular Filtration Rate 112 mL/min (>60); Est Glom Filt Rate - Afr Amer 135 mL/min (>60); Estimated Creatinine Clearance 78.79 ml/min; Globulin 5.3 g/dL (2.2-4.2); Glucose 301 mg/dL (74-106); High Density Lipoprotein 23 mg/dL; Protein, Total 7.3 g/dL (6.4-8.2); Sodium Level 134 mmol/L (136-145); Thyroid Stim Hormone (TSH) 3.95 uIU/mL (0.358-3.74); Triglycerides 172 mg/dL; Very Low Density Lipoprotein 34 mg/dL (5-40)
[2020-03-09 07:16] LABS: Differential Comment MANUAL DIFF; Lymphocyte 18 % (19-41); Monocyte 6 % (0-10); Neutrophil-Segmented 76 % (47-70); Platelet Estimate ADEQUATE (ADEQ)
[2020-03-09 07:17] LABS: Red Cell Morphology NORM C+C NORMAL (NORM C&C)
--- NOTE | 2020-03-09 08:15 | OP.PCM_ITS ---
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 (3) Osteomyelitis Status: Chronic Qualifiers: Osteomyelitis type: other acute Osteomyelitis location: foot Laterality: right Qualified Code(s): M86.171 - Other acute osteomyelitis, right ankle and foot (4) Type 2 diabetes mellitus with diabetic polyneuropathy Status: Chronic (5) Gangrene of toe of right foot Status: Chronic (6) Obesity (BMI 30-39.9) Status: Chronic (7) Uncontrolled type II diabetes mellitus Status: Chronic Qualifiers: Glycemic state: with hyperglycemia Qualified Code(s): E11.65 - Type 2 diabetes mellitus with hyperglycemia Report of Operation Date of Procedure: 03/09/20 Pre-Operative Diagnosis: right hallux osteomyelitis. right hallux ulceration into level of bone. right hallux necrosis. PVD. DM2 with hyperglycemia Post-Operative Diagnosis: right hallux osteomyelitis. right hallux abscess. right hallux ulceration into level of bone. right hallux necrosis. PVD. DM2 with hyperglycemia Surgery/Procedure Performed:: right hallux amputation. bone biopsy Description of Surgical Findings:: materials: 3-0 vicryl, 3-0 nylon hemostasis: none abscess encountered with 2cc of pus expressed riprap placing supervisor: none - Surgeon: Fauzia Murillo Epic Ambulatory Specialists: Abbie Robbins PGY-1 Type of Anesthesia:: MAC/Supplemental/Local Specimen's removed: right hallux path. right proximal phalanx bone base micro and path. post lavage swab cultures Estimated Blood Loss (mL): <10 Description of Procedure: Indication for procedure: Patient is a 69-year-old male who presents the [facility] emergency department with ulceration and discoloration of his right hallux. X-rays were obtained as well as MRI imaging as well as labs which supported diagnosis of osteomyelitis as well as a white blood cell count of 17. She was also hyperglycemic on it presentation. Discussed with the patient the need to remove the infected toe in order to get the infection under control. Patient has a history of right second digit amputation due to infection as well. It was discussed with the patient all risk benefits alternatives and complications including but not limited to infection delayed healing nonhealing need for further surgery or amputation. Is discussed patient that due to the white coloration of his skin that there is a chance that there is decreased blood flow to his foot and this will impact wound healing. Discussed needing to resect bone to level where skin is healthy for ability to close the wound. Discussed patient that staying off of his foot during the healing process will give it the best chance to heal. Due to the severity of the infection discussed to take patient to surgery the next day. Patient agreed and understood and was n.p.o. after midnight. The risk for infection and COVID-19 by being in a hospital setting discussed with patient. Patient understood the risks and agreed proceeding with the procedure was best course of action. Description of the procedure: Patient was then seen in the preoperative holding area and the chart was reviewed and patient was examined and all questions were answered to patient satisfaction. Patient then transported to the OR placed on the OR table in supine position. After administration of IV line IV sedation an additional 10 cc of 0.5% Marcaine plain was injected in a Lou block type fashion the patient's right foot. Due to concern for adequate blood flow no tourniquet was used. The patient was then prepped and draped in the usual sterile fashion. Attention was then directed to the right foot where a skin scribe was utilized to draw out a fishmouth type incision to the patient's right hallux just proximal to the level where the discoloration of deep tissue was noted. At this level there is blanching available at the skin to this was determined to be the distalmost aspect of availability of healthy tissue with the possibility of healing. A towel clamp was used to grasp the distal aspect of the hallux and a 15 blade was new utilized to make a incision in a through and through manner down to the level of bone. The soft tissue was reflected in a full-thickness flap to dissect down to the level of first metatarsophalangeal joint where the digit was then disarticulated was removed from the field and sent to the lab this pathology. Should be noted that during the dissection that approximately 2 cc of purulent drainage was encountered. Inspection of the bone both the distal aspect of the metatarsal head and the base of the proximal phalanx unit was noted to be hard and intact without any soft tissue or signs of bone infection at this level. There is no tracking encountered at this level. All devitalized tissue was removed with a combination of rongeur pickup and 15 blade. the site was then flushed copious normal sterile saline utilizing a pulse lavage. Once this was done swab cultures were then obtained for aerobic anaerobic. The base of the proximal phalanx was also cultured and sent to the lab for micro and pathology. The site was then inspected and noticed that there is still a moderate amount of tension for closure so a sagittal saw was then introduced in order to remove the dorsal medial aspect of metatarsal head in order to allow closure without excess tension on these soft tissue structures. Should be noted there was a decent amount of bleeding at the skin edges which was encouraging for potential wound healing issues. Site was then flushed again with copious amounts of normal sterile saline and then was closed in a layered suture fashion with 3-0 Vicryl for very deep closure and 3-0 nylon for simple and horizontal suture fashion mattress closure for skin. It should be noted that there was not excess tension during the closure. It was then dressed with Betadine soaked Adaptic 4 x 4's and Kerlix. Patient was then transferred from the OR to PACU vital signs stable and vascular status intact. Postoperative monitoring patient will be readmitted to the floor for continued care. The cultures will be followed. The incision site will be inspected to assess any wound healing issues due to poor blood flow. Patient is to get PVRs done during admission as well and will follow up on those results. Podiatry will continue to follow - Complications none - Admit VTE Documentation VTE Present on Admission: No VTE Mechan Device Prophylaxis: SCD's VTE Pharm Prophylaxis ordered?: Yes
[2020-03-09 08:26] LABS: Absolute Lymphocyte Count 1.53 X10^3/uL (0.83-4.51); Absolute Neutrophil Count 9.7 X10^3/uL (2.0-7.7); Basophil# 0.04 X10^3/uL; Basophil% 0.3 % (0-1); Eosinophil# 0.08 X10^3/uL; Eosinophils% 0.6 % (0-5); Hematocrit 40.2 % (40-54); Hemoglobin 12.3 g/dL (13.0-16.5); Lymphocyte # 1.53 X10^3/ul (4.0); Lymphocyte % 11.7 % (19-41); Mean Corp Hgb Conc 30.6 g/dL (32-36); Mean Corpuscular Hgb 28.9 pg (27.0-32.0); Mean Corpuscular Volume 94.6 fL (80-94); Monocyte# 1.55 X10^3/uL; Monocyte% 11.8 % (0-10); NRBC Flagged by Analyzer 0 % (0-5); Neutrophil # 9.73 X10^3/uL (2.7-7.7); Neutrophil % 74.3 % (47-70); POSITIVE DIFFERENTIAL YES; Platelet Count 329 K/mm3 (150-450); RBC Distribution Width CV 13.3 % (11.6-14.6); RBC Distribution Width SD 46.6 fl (35.1-43.9); Red Blood Count 4.25 M/mm3 (4.6-6.2); White Blood Count 13.1 K/mm3 (4.4-11.0)
--- NOTE | 2020-03-09 08:30 | BON_PTH ---
PATIENT: EMILEE ARAGON LOC: [facility] U#:[id number] AGE/SX: 69/M ROOM: [facility] RE03/08/[address]: Dr. Brittany Sahu DO : 1950 BED: 1 DIS: 03/12/2020 SPEC #: [id number] RECD: 03/09/20 10:57 STATUS: PADDY REQ #: [id number] SONYA: 03/09/20 08:[address]: Fauzia Murillo DEPT: SURGICAL PATHOLOGY RECD BY: Herbert Taylor ENTERED: 03/09/20 11:46 SP TYPE: Bone OTHR DR: MD Dr. Jeremy Johnson MD Dr. Kelly Kubiak, DPM DO Dr. Kyle Lane MD Tissues: A - Bone of foot, NOS B - Bone of foot, NOS Procedures: Decalcification bone/plaque Surgery Specimen Level IV Comments: @ Ordering doctor for DEC edited from to @ by YAW at 03/09/20 1341 @ Ordering doctor for SUIII edited from to @ by [email or web address] at 03/09/20 1341 @ Submitting doctor edited from to @ by RGOOD at 03/09/20 1341 HEADER OPERATION: Amputation right great toe PRE-OP DIAGNOSIS: Osteomyelitis right great toe TISSUE SUBMITTED: A - Right great toe, B - Bone proximal phalanx base right great toe MICROSCOPIC DIAGNOSIS A. Right great toe, excision/amputation: Ulceration with associated acute and chronic inflammation and abscess formation. Bone with acute osteomyelitis. B. Right great toe proximal phalanx base, biopsy: Bone and soft tissue with reactive and reparative change. No evidence of acute osteomyelitis. AM:jessica 03/12/20 MICROSCOPIC DESCRIPTION Slides are reviewed. GROSS DESCRIPTION A - Received in fixative is one container labeled with the patient's name and designated right great toe. The specimen consists of a portion of great toe measuring 7.5 x 4 x 3 cm. Extensive areas of ulceration are noted involving the tip of the toe and plantar surface of the toe. The ulcerated area measures 1.5 and 3.5 cm in greatest dimension. A portion of the nail is present and also involved by the ulceration. Also present in the container are two detached pieces of bone measuring in aggregate 3.5 x 2 x 0.4 cm. Balance Staff Inspector sections are submitted in four cassettes as follows: 1 & 2 - ulcerated area, 3 - detached pieces of bone, 4 - bone underneath the ulcerated area. Cassettes 3 & 4 are submitted after decalcification. B - Received in fixative is one container labeled with the patient's name and designated bone proximal phalanx base right great toe. The specimen consists of a piece of bone measuring 0.5 x 0.3 x 0.1 cm. The entire specimen is submitted in one cassette after decalcification. / SJ:jessica 03/09/20 TC:2 CPT: 95545 x2, 62048 x2
[2020-03-09 08:36] LABS: Differential Indicated SCAN CRITERIA MET
[2020-03-09] MEDS: Bupivacaine Mpf 0.5% 30 ML VIAL (08:40)
[2020-03-09 09:10] LABS: Bedside Glucose 336 mg/dL (70-110)
[2020-03-09 09:10] LABS: Bedside Glucose 321 mg/dL (70-110)
[2020-03-09] MEDS: Ascorbic Acid 500 MG Tablet PO (10:34)
[2020-03-09] MEDS: Multivitamins,Therapeutic Tablet 1 TABLET PO (10:34)
[2020-03-09] MEDS: Famotidine 20 MG Tablet PO ×2 (10:34→21:34)
[2020-03-09 10:46] LABS: Bedside Glucose 317 mg/dL (70-110)
--- NOTE | 2020-03-09 11:32 | NURSING ---
Pt had right hallux amputation today per Dr Murillo. dressing to remain in place at this time. will follow as needed.
[2020-03-09] MEDS: Insulin Lispro 100 UNIT/ML INSULN.PEN 10 UNIT SC ×2 (11:57→16:48)
[2020-03-09 12:05] LABS: Bedside Glucose 327 mg/dL (70-110)
[2020-03-09] MEDS: oxyCODONE 5 MG Tablet 10 MG PO ×2 (12:05→16:46)
--- NOTE | 2020-03-09 12:09 | PCM.PN.HOSP ---
<Brennan Swenson - Last Filed: 03/09/20 13:09> Patient Problems: Active and Suspected Problems (Last Updated 08/30/17 @ 07:15 by Ranjana Tam) Severe sepsis (Acute) Osteomyelitis of great toe of right foot (Acute) Cellulitis of right foot (Acute) Reason for Visit: Osteo R great toe Subjective: Pt doing well post op. Pain is 5/10 throbbing. No fever/chills/nausea/diarrhea/SOB/cough. Pt states he takes all his diabetic pills but has been out of insulin as he cannot afford it. He has not seen endocrinology in about 20 years. Vitals/I&O's: Vital Signs Temp Pulse Resp BP Pulse Ox 98.6 F 82 18 156/66 H 98 03/09/20 10:30 03/09/20 11:00 03/09/20 10:30 03/09/20 10:30 03/09/20 10:30 Oxygen Flow Rate (L/min) 2 Oxygen Delivery Method Nasal Cannula Weight: 290 lb 6.4 oz Body Mass Index (BMI) 38.2 Intake and Output for Last 24 Hours 03/07/20 03/08/20 03/09/20 23:59 23:59 23:59 Intake Total 1090 / 0 1300 / 1300 Output Total 550 / 550 Balance 1090 / 0 750 / 750 General: Alert, Oriented x3, Cooperative HEENT: Atraumatic, PERRLA, EOMI, Normocephalic Neck: Supple, No JVD, Negative Carotid Bruits Lungs: Clear to auscultation, Normal air movement Cardiovascular: Regular rate, No murmurs Abdomen: Bowel Sounds Present, Soft, Non Tender, Obese Extremities: No edema, Capillary Refill Less than 3 Seconds Skin: No rashes, No breakdown Musculoskeletal: No Tenderness to Palpation of Joints or Extremities, - - s/p R foot great toe amp Neurological: Cranial nerves II-XII grossly intact Psych/Mental Status: Normal Affect, Appropriate, Alert and oriented to time, place, person, mood and affect Microbiology Past 72 Hours 03/08/20 16:48 Wound - Toe Gram Stain - Final 03/08/20 16:48 Wound - Toe Wound Culture - Preliminary Beta streptococcus Laboratory Results 03/08/20 13:40: WBC 17.6 H, RBC 4.77, Hgb 14.2, Hct 44.8, MCV 93.9, MCH 29.8, MCHC 31.7 L, RDW Std Deviation 46.5 H, RDW Coeff of Nyla 13.4, Plt Count 329, MPV 10.4, Immature Gran % (Auto) 1.000 H, Neut % (Auto) 81.1 H, Lymph % (Auto) 8.8 L, Hudspeth % (Auto) 8.6, Eos % (Auto) 0.2, Baso % (Auto) 0.3, Absolute Neuts (auto) 14.3 H, Absolute Lymphs (auto) 1.55, Nucleated RBC % 0, Differential Comment , Diff Path Review November, Platelet Estimate ADEQUATE, RBC Morphology NORM C+C, ESR 80 H 03/08/20 13:40: PT 13.6, INR 1.1, APTT 40.5 H 03/08/20 13:40: Sodium 131 L, Potassium 4.6, Chloride 97 L, Carbon Dioxide 25.0, Anion Gap 9, BUN 20 H, Creatinine 0.98, Estim Creat Clear Calc 80.40, Est GFR (MDRD) Af Amer 97, Est GFR (MDRD) Non-Af 80, BUN/Creatinine Ratio 20.3 H, Glucose 476 H*, Calcium 9.4, Total Bilirubin 0.60, AST 31, ALT 43, Alkaline Phosphatase 97, C-React Prot Ext Range 262.00 H, Total Protein 8.9 H, Albumin 2.5 L, Globulin 6.4 H, Albumin/Globulin Ratio 0.4 L 03/08/20 13:40: Lactic Acid 2.2 H* 03/08/20 13:40: Magnesium 2.3 03/08/20 13:40: Hemoglobin A1c 13.3 H 03/08/20 16:48: S.aureus Protein A PCR NEGATIVE, MRSA (PCR) Negative 03/08/20 17:09: POC Glucose 439 H 03/08/20 17:49: Lactic Acid 2.1 H* 03/08/20 22:04: POC Glucose 417 H 03/08/20 22:05: COVID-19 ([facility]) Negative 03/09/20 06:08: WBC 13.1 H, RBC 4.25 L, Hgb 12.3 L, Hct 40.2, MCV 94.6 H, MCH 28.9, MCHC 30.6 L, RDW Std Deviation 46.6 H, RDW Coeff of Nyla 13.3, Plt Count 329, MPV 10.0, Immature Gran % (Auto) 1.300 H, Neut % (Auto) 74.3 H, Lymph % (Auto) 11.7 L, Hudspeth % (Auto) 11.8 H, Eos % (Auto) 0.6, Baso % (Auto) 0.3, Absolute Neuts (auto) 9.7 H, Absolute Lymphs (auto) 1.53, Total Counted 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 PROFESSOR, Neutrophils % (Manual) 76 H, Lymphocytes % (Manual) 18 L, Monocytes % (Manual) 6, Nucleated RBC % 0, Differential Comment MANUAL DIFF, Diff Path Review November, Platelet Estimate ADEQUATE, RBC Morphology NORM C+C 03/09/20 06:08: Sodium 134 L, Potassium 4.0, Chloride 101, Carbon Dioxide 27.0, Anion Gap 6, BUN 15, Creatinine 0.74, Estim Creat Clear Calc 78.79, Est GFR (MDRD) Af Amer 135, Est GFR (MDRD) Non-Af 112, BUN/Creatinine Ratio 20.4 H, Glucose 301 H, Calcium 8.6, Total Bilirubin 0.40, AST 16, ALT 30, Alkaline Phosphatase 73, Total Protein 7.3, Albumin 2.0 L, Globulin 5.3 H, Albumin/Globulin Ratio 0.4 L, Triglycerides 172, Cholesterol 83, LDL Cholesterol 26, VLDL Cholesterol 34, HDL Cholesterol 23 L, TSH 3.95 H 03/09/20 06:23: POC Glucose 321 H 03/09/20 07:59: POC Glucose 336 H 03/09/20 10:36: POC Glucose 317 H 03/09/20 11:56: POC Glucose 327 H Current Medications Acetaminophen (Tylenol) 650 mg PO Q6H PRN PRN PRN Reason: Pain Score 1-10/Temp > 100.7 F Al Hydroxide/Mg Hydroxide (Mylanta Ii) 30 ml PO Q6H PRN PRN PRN Reason: Gastric Burning Ascorbic Acid (Vitamin C) 500 mg PO DAILY [facility] Last Admin: 03/09/20 10:34 Dose: 500 mg Documented by: Aspirin (Aspirin, Baby) 81 mg PO DAILY@0800 [facility] Atorvastatin Calcium (Lipitor) 40 mg PO QHS [facility] Last Admin: 03/08/20 22:00 Dose: 40 mg Documented by: Enoxaparin Sodium (Lovenox) 40 mg SC DAILY [facility] Famotidine (Pepcid) 20 mg PO BID [facility] Last Admin: 03/09/20 10:34 Dose: 20 mg Documented by: Guaifenesin (Robitussin) 20 ml PO Q4H PRN PRN PRN Reason: COUGH Hydralazine HCl (Apresoline Iv) 10 mg IV Q4H PRN PRN PRN Reason: SBP > 160 Hydromorphone HCl (Dilaudid Inj) 0.5 mg IV Q4H PRN PRN PRN Reason: Pain Score 6-10/10 Piperacillin Sod/Tazobactam (Sod 3.375 gm/ Sodium Chloride) 50 mls @ 12.5 mls/hr IV Q8 [facility] Last Infusion: 03/09/20 10:15 Dose: Infused Documented by: Insulin Glargine (Lantus (Bkc)) 50 units SC DAILY [facility] Last Admin: 03/09/20 10:34 Dose: 50 units Documented by: Insulin Glargine (Lantus (Bkc)) 20 units SC QHS [facility] Insulin Human Lispro (Humalog Kwikpen (Bkc)) 0 unit SC ACHS [facility]; Protocol Last Admin: 03/09/20 08:13 Dose: 5 units Documented by: Insulin Human Lispro (Humalog Kwikpen (Bkc)) 10 unit SC TIDAC [facility] Last Admin: 03/09/20 11:57 Dose: 10 units Documented by: Levothyroxine Sodium (Synthroid) 100 mcg PO DAILY@0600 [facility] Last Admin: 03/09/20 06:14 Dose: 100 mcg Documented by: Magnesium Hydroxide (Milk Of Magnesia) 30 ml PO DAILY PRN PRN PRN Reason: Constipation Multivitamins (Multivitamin) 1 tablet PO DAILY@0800 [facility] Last Admin: 03/09/20 10:34 Dose: 1 tablet Documented by: Ondansetron HCl (Zofran) 4 mg IV Q8H PRN PRN PRN Reason: NAUSEA/VOMITING Oxycodone HCl (Oxyir) 10 mg PO Q4H PRN PRN PRN Reason: Pain Score 4-5/10 Last Admin: 03/09/20 12:05 Dose: 10 mg Documented by: Prochlorperazine Edisylate (Compazine Iv) 5 mg IV Q4H PRN PRN PRN Reason: Breakthrough nausea/vomiting Psyllium Hydrophilic Mucilloid (Metamucil) 1 packet PO DAILY PRN PRN PRN Reason: Constipation Senna/Docusate Sodium (Senokot-S, Maxine-Colace) 2 tablet PO BID PRN PRN PRN Reason: Constipation Sodium Chloride () 10 - 40 ml IV UD PRN PRN Reason: SALINE FLUSH Temazepam (Restoril) 15 mg PO QHS PRN PRN PRN Reason: INSOMNIA Throat Lozenges (Cepacol Sore Throat Lozenge) 1 lozenge MUCOUS MEM Q2H PRN PRN PRN Reason: SORE THROAT STROKE Vital Signs/Narrative: Vital Signs Temp Pulse Resp BP Pulse Ox 03/09/20 11:00 82 03/09/20 10:30 98.6 F 83 18 156/66 H 98 03/09/20 10:05 98.1 F 81 16 150/75 H 98 03/09/20 10:00 80 16 146/74 H 96 03/09/20 09:55 82 16 137/75 H 95 03/09/20 09:50 97.3 F L 83 16 137/74 H 96 Medical Necessity - Tobacco Use Smoking Status: Former smoker Tobacco Use: Non-smoker Assessment/Plan All Active Problems (Last Updated 08/30/17 @ 07:15 by Ranjana Tam) Severe sepsis (Acute) Osteomyelitis of great toe of right foot (Acute) Cellulitis of right foot (Acute) S/P tonsillectomy (Acute) S/P colonoscopy (Acute) redness of right second toe (Acute) swelling of right second toe (Acute) 1. Acute severe sepsis 2/2 R great toe osteomyelitis - complicated by DMt2, PAD. current cx showing beta strep. prior cx with MSSA, MSSE, Haemophilus parainfluenzae, Prevotella disens, anerobes. Pt on Zosyn. Await surgical cx. Podiatry did amputation today POD#0. ID consulted for further guidance. Leukocytosis improved. No fever. Left shift present. CRP 262, ESR 80. MRSA and MSSA initial PCR negative. Covid Neg. MRI c/w osteo. 2. Uncontrolled DMt2 with hyperglycemia, obesity- A1C 13.3. Oral therapy held which includes actos, invokana, sitagliptin, metformin. He would benefit from referral to Endocrinology as an o/p for evaluation of his beta cell function. continue lantus and consider adding mealtime insulin once his diet is regulated. Pt has been off of his home insulin due to cost. 3. Hyponatremia - possibly 2/2 sepsis and severely uncontrolled blood sugar. TSH elevated. CHeck t3/t4 4. Hypothyroid - continue synthroid, tsh elevated, check t3/4. 5. PAD - complicating #1. Has seen [facility] in the past. F.u as o/p. DVT ppx: Lovenox DC planning: PT OT eval's This patient was seen by Brennan Swenson PA-C under the supervision of Doctor Hunter. <Jeremy Harrison - Last Filed: 03/09/20 14:02> Vitals/I&O's: Vital Signs Temp Pulse Resp BP Pulse Ox 98.6 F 82 18 156/66 H 98 03/09/20 10:30 03/09/20 11:00 03/09/20 10:30 03/09/20 10:30 03/09/20 10:30 Oxygen Flow Rate (L/min) 2 Oxygen Delivery Method Nasal Cannula Weight: 131.723 kg Body Mass Index (BMI) 38.2 Intake and Output for Last 24 Hours 03/07/20 03/08/20 03/09/20 23:59 23:59 23:59 Intake Total 1090 / 2050 1300 / 1300 Output Total 550 / 550 Balance 1090 / 2050 750 / 750 Microbiology Past 72 Hours 03/08/20 16:48 Wound - Toe Gram Stain - Final 03/08/20 16:48 Wound - Toe Wound Culture - Preliminary Beta streptococcus Laboratory Results 03/08/20 13:40: WBC 17.6 H, RBC 4.77, Hgb 14.2, Hct 44.8, MCV 93.9, MCH 29.8, MCHC 31.7 L, RDW Std Deviation 46.5 H, RDW Coeff of Nyla 13.4, Plt Count 329, MPV 10.4, Immature Gran % (Auto) 1.000 H, Neut % (Auto) 81.1 H, Lymph % (Auto) 8.8 L, Hudspeth % (Auto) 8.6, Eos % (Auto) 0.2, Baso % (Auto) 0.3, Absolute Neuts (auto) 14.3 H, Absolute Lymphs (auto) 1.55, Nucleated RBC % 0, Differential Comment , Diff Path Review Reviewed, Platelet Estimate ADEQUATE, RBC Morphology NORM C+C, ESR 80 H 03/08/20 13:40: PT 13.6, INR 1.1, APTT 40.5 H 03/08/20 13:40: Sodium 131 L, Potassium 4.6, Chloride 97 L, Carbon Dioxide 25.0, Anion Gap 9, BUN 20 H, Creatinine 0.98, Estim Creat Clear Calc 80.40, Est GFR (MDRD) Af Amer 97, Est GFR (MDRD) Non-Af 80, BUN/Creatinine Ratio 20.3 H, Glucose 476 H*, Calcium 9.4, Total Bilirubin 0.60, AST 31, ALT 43, Alkaline Phosphatase 97, C-React Prot Ext Range 262.00 H, Total Protein 8.9 H, Albumin 2.5 L, Globulin 6.4 H, Albumin/Globulin Ratio 0.4 L 03/08/20 13:40: Lactic Acid 2.2 H* 03/08/20 13:40: Magnesium 2.3 03/08/20 13:40: Hemoglobin A1c 13.3 H 03/08/20 16:48: S.aureus Protein A PCR NEGATIVE, MRSA (PCR) Negative 03/08/20 17:09: POC Glucose 439 H 03/08/20 17:49: Lactic Acid 2.1 H* 03/08/20 22:04: POC Glucose 417 H 03/08/20 22:05: COVID-19 ([facility]) Negative 03/09/20 06:08: WBC 13.1 H, RBC 4.25 L, Hgb 12.3 L, Hct 40.2, MCV 94.6 H, MCH 28.9, MCHC 30.6 L, RDW Std Deviation 46.6 H, RDW Coeff of Nyla 13.3, Plt Count 329, MPV 10.0, Immature Gran % (Auto) 1.300 H, Neut % (Auto) 74.3 H, Lymph % (Auto) 11.7 L, Hudspeth % (Auto) 11.8 H, Eos % (Auto) 0.6, Baso % (Auto) 0.3, Absolute Neuts (auto) 9.7 H, Absolute Lymphs (auto) 1.53, Total Counted 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 PROFESSOR, Neutrophils % (Manual) 76 H, Lymphocytes % (Manual) 18 L, Monocytes % (Manual) 6, Nucleated RBC % 0, Differential Comment MANUAL DIFF, Diff Path Review November, Platelet Estimate ADEQUATE, RBC Morphology NORM C+C 03/09/20 06:08: Sodium 134 L, Potassium 4.0, Chloride 101, Carbon Dioxide 27.0, Anion Gap 6, BUN 15, Creatinine 0.74, Estim Creat Clear Calc 78.79, Est GFR (MDRD) Af Amer 135, Est GFR (MDRD) Non-Af 112, BUN/Creatinine Ratio 20.4 H, Glucose 301 H, Calcium 8.6, Total Bilirubin 0.40, AST 16, ALT 30, Alkaline Phosphatase 73, Total Protein 7.3, Albumin 2.0 L, Globulin 5.3 H, Albumin/Globulin Ratio 0.4 L, Triglycerides 172, Cholesterol 83, LDL Cholesterol 26, VLDL Cholesterol 34, HDL Cholesterol 23 L, TSH 3.95 H 03/09/20 06:08: Free T4 1.14, Free T3 pg/dL 1.2 L 03/09/20 06:23: POC Glucose 321 H 03/09/20 07:59: POC Glucose 336 H 03/09/20 10:36: POC Glucose 317 H 03/09/20 11:56: POC Glucose 327 H Current Medications Acetaminophen (Tylenol) 650 mg PO Q6H PRN PRN PRN Reason: Pain Score 1-10/Temp > 100.7 F Al Hydroxide/Mg Hydroxide (Mylanta Ii) 30 ml PO Q6H PRN PRN PRN Reason: Gastric Burning Ascorbic Acid (Vitamin C) 500 mg PO DAILY [facility] Last Admin: 03/09/20 10:34 Dose: 500 mg Documented by: Aspirin (Aspirin, Baby) 81 mg PO DAILY@0800 [facility] Atorvastatin Calcium (Lipitor) 40 mg PO QHS [facility] Last Admin: 03/08/20 22:00 Dose: 40 mg Documented by: Enoxaparin Sodium (Lovenox) 40 mg SC DAILY [facility] Famotidine (Pepcid) 20 mg PO BID [facility] Last Admin: 03/09/20 10:34 Dose: 20 mg Documented by: Guaifenesin (Robitussin) 20 ml PO Q4H PRN PRN PRN Reason: COUGH Hydralazine HCl (Apresoline Iv) 10 mg IV Q4H PRN PRN PRN Reason: SBP > 160 Hydromorphone HCl (Dilaudid Inj) 0.5 mg IV Q4H PRN PRN PRN Reason: Pain Score 6-10/10 Ampicillin Sodium/Sulbactam (Sodium 3 gm/ Sodium Chloride) 112 mls @ 150 mls/hr IV Q6 [facility] Insulin Glargine (Lantus (Bkc)) 50 units SC DAILY [facility] Last Admin: 03/09/20 10:34 Dose: 50 units Documented by: Insulin Glargine (Lantus (Bkc)) 20 units SC QHS [facility] Insulin Human Lispro (Humalog Kwikpen (Bkc)) 0 unit SC ACHS [facility]; Protocol Last Admin: 03/09/20 08:13 Dose: 5 units Documented by: Insulin Human Lispro (Humalog Kwikpen (Bkc)) 10 unit SC TIDAC [facility] Last Admin: 03/09/20 11:57 Dose: 10 units Documented by: Levothyroxine Sodium (Synthroid) 100 mcg PO DAILY@0600 [facility] Last Admin: 03/09/20 06:14 Dose: 100 mcg Documented by: Magnesium Hydroxide (Milk Of Magnesia) 30 ml PO DAILY PRN PRN PRN Reason: Constipation Multivitamins (Multivitamin) 1 tablet PO DAILY@0800 [facility] Last Admin: 03/09/20 10:34 Dose: 1 tablet Documented by: Nutritional Formula (Robert - Banner Flavor) [facility] Ondansetron HCl (Zofran) 4 mg IV Q8H PRN PRN PRN Reason: NAUSEA/VOMITING Oxycodone HCl (Oxyir) 10 mg PO Q4H PRN PRN PRN Reason: Pain Score 4-5/10 Last Admin: 03/09/20 12:05 Dose: 10 mg Documented by: Prochlorperazine Edisylate (Compazine Iv) 5 mg IV Q4H PRN PRN PRN Reason: Breakthrough nausea/vomiting Psyllium Hydrophilic Mucilloid (Metamucil) 1 packet PO DAILY PRN PRN PRN Reason: Constipation Senna/Docusate Sodium (Senokot-S, Maxine-Colace) 2 tablet PO BID PRN PRN PRN Reason: Constipation Sodium Chloride () 10 - 40 ml IV UD PRN PRN Reason: SALINE FLUSH Temazepam (Restoril) 15 mg PO QHS PRN PRN PRN Reason: INSOMNIA Throat Lozenges (Cepacol Sore Throat Lozenge) 1 lozenge MUCOUS MEM Q2H PRN PRN PRN Reason: SORE THROAT STROKE Vital Signs/Narrative: Vital Signs Temp Pulse Resp BP Pulse Ox 03/09/20 11:00 82 03/09/20 10:30 98.6 F 83 18 156/66 H 98 03/09/20 10:05 98.1 F 81 16 150/75 H 98 03/09/20 10:00 80 16 146/74 H 96 03/09/20 09:55 82 16 137/75 H 95 03/09/20 09:50 97.3 F L 83 16 137/74 H 96 Assessment/Plan This patient was seen in conjunction with Brennan Swenson PA-C . I have independently interviewed and examined the patient and reviewed pertinent historical, laboratory, and other data. Please refer to Brennan Swenson PA-C note for details of this patient's presentation, findings, and recommendations. I have reviewed Brennan Swenson PA-C note and concur with documented findings. In brief, patient 69-year-old gentleman with history of diabetes mellitus type 2 who presented with erythema and pain involving the right great toe. Patient's assessment was consistent with right great toe osteomyelitis with sepsis consult placed to podiatry subsequently Physical Examination: GENERAL: cooperative HEENT: Atraumatic; EYES; Anicteric, Normal Conjunctiva NECK; supple, normal thyroid, RESPIRATORY: Diminished to auscultation CARDIOVASCULAR: Regular S1 S2, GI: soft, normoactive bowel sounds, NEURO: Awake; no lateralizing signs. PSYCH; Flat affect Assessment: 1. Sepsis secondary to right great toe osteomyelitis status post right hallux amputation and bone biopsy on 03/09/2020 2. Diabetes mellitus type 2 uncontrolled with hyperglycemia 3. Hyponatremia 4. Hypothyroidism 5. Peripheral arterial disease 6. Obesity with BMI of 38 7. DVT prophylaxis Recommendations: 1. I have discussed the results of my overview and impressions with the patient 2. Options for management were reviewed Inpatient E&M: 04642 Subs Hosp L2
--- NOTE | 2020-03-09 12:21 | CASEMGMT ---
FRANCOISE SMITH assessment: Face to Face with patient for initial transition planning/care coordination assessment. FRANCOISE SMITH introduced self and role at [facility], pt voices understanding and consents to assessment at this time. Pt is sitting up in bed in no distress at this time. Pt is A/Ox4 at this time and answers all questions appropriately at this time. Care providers, pharmacy, and demographics verified/updated at this time. Presentation: wound to toe of right foot Admitting dx: Right great toe osteo, lactic acidosis PCP: [facility] Specialists: Pt states no current specialists. [facility]erred [facility] Insurance: MCR A only-pt states he lost his MMO when he got laid off from work Prescription Benefit: None currently-SW aware Living Will/HPOA: Pt states does not have LW/HPOA, but would like to complete them at this time. LNOK: Neida Gunter, granddaughter Living Arrangements: Pt states lives alone in 1 story home and states no concerns at home at this time. Pt states is normally independent with ADL's. Transportation: Pt states drives self and states no transportation concerns at this time. DME/HHC: Pt states has a walker and states no need for any further DME at this time. Pt states no hx of HHC or SNF in the past. Pt states no concerns with going home at time of discharge. Pt states is currently 'laid off.' Pt states does not smoke cigarettes or drink ETOH. Pt states no further concerns/needs at this time. CM to follow for any further discharge planning/needs. Advised pt to ask for CM if any further questions/concerns/needs arise, voices understanding. Pt Goal: Home Plan[place] FRANCOISE SMITH
[2020-03-09 12:42] LABS: Pathologist Review Reviewed
[2020-03-09 13:02] LABS: Free T3 1.2 pg/mL (2.18-3.98); T4 Free Direct 1.14 ng/dL (0.76-1.46)
--- NOTE | 2020-03-09 13:21 | PCM.HP.ID ---
Reason for Consult: Right big toe osteomyelitis Consulted by: Dr. Baer History of Present Illness: The patient is a 69 year old M [] This is a 69-year-old white male with a longstanding history of diabetes mellitus complicated by diabetic foot ulcers and recently underwent a right second toe amputation. Patient was wearing a new pair of shoes about a week ago and developed a blister in his right big toe. Patient was admitted because of gangrenous changes of his right big toe. Patient underwent amputation of the right big toe earlier today. He is currently alert conversive in no acute distress. No fever. No cardiopulmonary distress and no gastrointestinal symptoms. He is currently on Zosyn. Operative note reviewed from earlier today. - Medical History Past Medical History (Chronic Problems): Chronic Problems (Last Updated 08/30/17 @ 07:15 by Ranjana Tam) Ulcer of right foot with fat layer exposed (Chronic) Ulcer of right foot with necrosis of muscle (Chronic) Osteomyelitis (Chronic) Type 2 diabetes mellitus with diabetic polyneuropathy (Chronic) Gangrene of toe of right foot (Chronic) Hallux limitus (Chronic) Chronic ulcer of left foot with fat layer exposed (Chronic) Hammertoe of right foot (Chronic) Hammertoe of left foot (Chronic) Delayed wound healing (Chronic) HLD (hyperlipidemia) (Chronic) Obesity (BMI 30-39.9) (Chronic) Uncontrolled type II diabetes mellitus (Chronic) PAD (peripheral artery disease) (Chronic) HTN (hypertension) (Chronic) Hypothyroid (Chronic) Diabetes mellitus (Chronic) Allergies/Adverse Reactions: Allergies No Known Allergies Allergy (Verified 03/08/20 12:31) Home Medications: Ambulatory Orders Medication Instructions Recorded Canagliflozin [Invokana] 100 mg PO DAILY 08/21/17 Levothyroxine Sodium [Synthroid] 100 mcg PO DAILY 08/21/17 Pioglitazone [Actos] 45 mg PO DAILY 08/21/17 Sitagliptin Phos/Metformin HCl 1 tab PO BID 08/21/17 [Janumet Xr 50-1,000 mg Tablet] Aspirin [Aspirin, Baby] 81 mg PO DAILY@0800 #30 tab.chew 08/24/17 Multivitamin [Multiple Vitamins] 1 each PO DAILY 09/12/17 Ascorbic Acid [Vitamin C] 500 mg PO DAILY 09/26/17 - Social History SMOKING STATUS:: Former smoker Vital Signs Temp Pulse Resp BP Pulse Ox 98.6 F 82 18 156/66 H 98 03/09/20 10:30 03/09/20 11:00 03/09/20 10:30 03/09/20 10:30 03/09/20 10:30 Oxygen Flow Rate (L/min) 2 Oxygen Delivery Method Nasal Cannula Weight: 131.723 kg Body Mass Index (BMI) 38.2 Alert does not appear toxic lungs are clear heart exam S1-S2 abdomen soft nontender right foot postop dressings are in place left foot looks benign Microbiology Past 72 Hours 03/08/20 16:48 Gram Stain - Final Wound - Toe Wound Culture - Preliminary Beta streptococcus Laboratory Tests Past 24 Hrs 03/08/20 03/08/20 03/08/20 13:40 13:40 13:40 WBC 17.6 H RBC 4.77 Hgb 14.2 Hct 44.8 MCV 93.9 MCH 29.8 MCHC 31.7 L RDW Std Deviation 46.5 H RDW Coeff of Nyla 13.4 Plt Count 329 MPV 10.4 Immature Gran % (Auto) 1.000 H Neut % (Auto) 81.1 H Lymph % (Auto) 8.8 L [place] % (Auto) 8.6 Eos % (Auto) 0.2 Baso % (Auto) 0.3 Absolute Neuts (auto) 14.3 H Absolute Lymphs (auto) 1.55 Total Counted Neutrophils % (Manual) Lymphocytes % (Manual) Monocytes % (Manual) Nucleated RBC % 0 Differential Comment Diff Path Review Reviewed Platelet Estimate ADEQUATE RBC Morphology NORM C+C ESR 80 H PT 13.6 INR 1.1 APTT 40.5 H Sodium 131 L Potassium 4.6 Chloride 97 L Carbon Dioxide 25.0 Anion Gap 9 BUN 20 H Creatinine 0.98 Estim Creat Clear Calc 80.40 Est GFR (MDRD) Af Amer 97 Est GFR (MDRD) Non-Af 80 BUN/Creatinine Ratio 20.3 H Glucose 476 H* Hemoglobin A1c Lactic Acid Calcium 9.4 Magnesium Total Bilirubin 0.60 AST 31 ALT 43 Alkaline Phosphatase 97 C-React Prot Ext Range 262.00 H Total Protein 8.9 H Albumin 2.5 L Globulin 6.4 H Albumin/Globulin Ratio 0.4 L Triglycerides Cholesterol LDL Cholesterol VLDL Cholesterol HDL Cholesterol TSH Free T4 Free T3 pg/dL COVID-19 ([facility]) S.aureus Protein A PCR MRSA (PCR) 03/08/20 03/08/20 03/08/20 13:40 13:40 13:40 WBC RBC Hgb Hct MCV MCH MCHC RDW Std Deviation RDW Coeff of Nyla Plt Count MPV Immature Gran % (Auto) Neut % (Auto) Lymph % (Auto) [place] % (Auto) Eos % (Auto) Baso % (Auto) Absolute Neuts (auto) Absolute Lymphs (auto) Total Counted Neutrophils % (Manual) Lymphocytes % (Manual) Monocytes % (Manual) Nucleated RBC % Differential Comment Diff Path Review Platelet Estimate RBC Morphology ESR PT INR APTT Sodium Potassium Chloride Carbon Dioxide Anion Gap BUN Creatinine Estim Creat Clear Calc Est GFR (MDRD) Af Amer Est GFR (MDRD) Non-Af BUN/Creatinine Ratio Glucose Hemoglobin A1c 13.3 H Lactic Acid 2.2 H* Calcium Magnesium 2.3 Total Bilirubin AST ALT Alkaline Phosphatase C-React Prot Ext Range Total Protein Albumin Globulin Albumin/Globulin Ratio Triglycerides Cholesterol LDL Cholesterol VLDL Cholesterol HDL Cholesterol TSH Free T4 Free T3 pg/dL COVID-19 ([facility]) S.aureus Protein A PCR MRSA (PCR) 03/08/20 03/08/20 03/08/20 16:48 17:49 22:05 WBC RBC Hgb Hct MCV MCH MCHC RDW Std Deviation RDW Coeff of Nyla Plt Count MPV Immature Gran % (Auto) Neut % (Auto) Lymph % (Auto) [place] % (Auto) Eos % (Auto) Baso % (Auto) Absolute Neuts (auto) Absolute Lymphs (auto) Total Counted Neutrophils % (Manual) Lymphocytes % (Manual) Monocytes % (Manual) Nucleated RBC % Differential Comment Diff Path Review Platelet Estimate RBC Morphology ESR PT INR APTT Sodium Potassium Chloride Carbon Dioxide Anion Gap BUN Creatinine Estim Creat Clear Calc Est GFR (MDRD) Af Amer Est GFR (MDRD) Non-Af BUN/Creatinine Ratio Glucose Hemoglobin A1c Lactic Acid 2.1 H* Calcium Magnesium Total Bilirubin AST ALT Alkaline Phosphatase C-React Prot Ext Range Total Protein Albumin Globulin Albumin/Globulin Ratio Triglycerides Cholesterol LDL Cholesterol VLDL Cholesterol HDL Cholesterol TSH Free T4 Free T3 pg/dL COVID-19 ([facility]) Negative S.aureus Protein A PCR NEGATIVE MRSA (PCR) Negative 03/09/20 03/09/20 03/09/20 06:08 06:08 06:08 WBC 13.1 H RBC 4.25 L Hgb 12.3 L Hct 40.2 MCV 94.6 H MCH 28.9 MCHC 30.6 L RDW Std Deviation 46.6 H RDW Coeff of Nyla 13.3 Plt Count 329 MPV 10.0 Immature Gran % (Auto) 1.300 H Neut % (Auto) 74.3 H Lymph % (Auto) 11.7 L [place] % (Auto) 11.8 H Eos % (Auto) 0.6 Baso % (Auto) 0.3 Absolute Neuts (auto) 9.7 H Absolute Lymphs (auto) 1.53 Total Counted ROD FILLER Neutrophils % (Manual) 76 H Lymphocytes % (Manual) 18 L Monocytes % (Manual) 6 Nucleated RBC % 0 Differential Comment MANUAL DIFF Diff Path Review May foll Platelet Estimate ADEQUATE RBC Morphology NORM C+C ESR PT INR APTT Sodium 134 L Potassium 4.0 Chloride 101 Carbon Dioxide 27.0 Anion Gap 6 BUN 15 Creatinine 0.74 Estim Creat Clear Calc 78.79 Est GFR (MDRD) Af Amer 135 Est GFR (MDRD) Non-Af 112 BUN/Creatinine Ratio 20.4 H Glucose 301 H Hemoglobin A1c Lactic Acid Calcium 8.6 Magnesium Total Bilirubin 0.40 AST 16 ALT 30 Alkaline Phosphatase 73 C-React Prot Ext Range Total Protein 7.3 Albumin 2.0 L Globulin 5.3 H Albumin/Globulin Ratio 0.4 L Triglycerides 172 Cholesterol 83 LDL Cholesterol 26 VLDL Cholesterol 34 HDL Cholesterol 23 L TSH 3.95 H Free T4 1.14 Free T3 pg/dL 1.2 L COVID-19 ([facility]) S.aureus Protein A PCR MRSA (PCR) - Other Studies Radiology: [] Other Studies: [] Route of nutrition/ use of supplements: [] Nutritional Intake: [] IV Site: [] Butler Catheter: [] - Assessment/Plan Antibiotics: [] Assessment/Plan: [] Active and Suspected Problems (Last Updated 08/30/17 @ 07:15 by Ranjana Tam) Severe sepsis (Acute) Osteomyelitis of great toe of right foot (Acute) Cellulitis of right foot (Acute) Right big toe osteomyelitis diabetic ulcer status post partial amputation of the right big toe. At this point will treat with Unasyn 3 g IV every 6 hours and follow his postoperative course.
[2020-03-09] MEDS: Acetaminophen 325 MG Tablet 650 MG PO (14:08)
[2020-03-09] MEDS: 0.9% Saline Lock 10 ML Syringe IV (14:09)
[2020-03-09] MEDS: Enoxaparin 40 MG/0.4 ML Syringe SC (14:51)
[2020-03-09] MEDS: Aspirin 81 MG TAB.CHEW PO (14:51)
--- NOTE | 2020-03-09 15:19 | CASEMGMT ---
SW assisted pt in completing LW/POA forms. SW gave pt originals and copies, and copy on chart. SW also gave pt resources for prescriptions, as pt does not have prescription coverage. ELIESER Hayden
[2020-03-09 16:56] LABS: Bedside Glucose 411 mg/dL (70-110)
[2020-03-09] MEDS: Atorvastatin Calcium 40 MG Tablet PO (21:34)
[2020-03-09 21:40] LABS: Bedside Glucose 415 mg/dL (70-110)
[2020-03-10] VITALS (11 sets, daily range): BP systolic 137–154; BP diastolic 65–76; PULSE 80–96; RESP 16–18; TEMP 36.4–37.1; O2SAT 93–95; BMI 38.3
[2020-03-10] MEDS: Levothyroxine 100 MCG Tablet PO (05:36)
[2020-03-10 06:09] LABS: Hematocrit 39.7 % (40-54); Hemoglobin 12.3 g/dL (13.0-16.5); Mean Corpuscular Hgb 29.1 pg (27.0-32.0); Mean Corpuscular Volume 94.1 fL (80-94); Mean Platelet Vol. 9.3 fl (6.2-12.0); Platelet Count 324 K/mm3 (150-450); RBC Distribution Width CV 13.2 % (11.6-14.6); RBC Distribution Width SD 45.8 fl (35.1-43.9); Red Blood Count 4.22 M/mm3 (4.6-6.2); White Blood Count 13.1 K/mm3 (4.4-11.0)
[2020-03-10 06:34] LABS: Anion Gap 6 (5-15); BUN 23 mg/dL (7-18); BUN/Creat Ratio 26.3 RATIO (10-20); Calcium,Total 8.8 mg/dL (8.5-10.1); Chloride 102 mmol/L (98-107); Creatinine, Serum 0.87 mg/dL (0.70-1.30); EST Glomerular Filtration Rate 92 mL/min (>60); Est Glom Filt Rate - Afr Amer 111 mL/min (>60); Estimated Creatinine Clearance 90.56 ml/min; Glucose 377 mg/dL (74-106); Magnesium 2.2 mg/dL (1.6-2.6); Potassium 4.1 mmol/L (3.5-5.1); Sodium Level 134 mmol/L (136-145)
[2020-03-10] MEDS: Insulin Lispro 100 UNIT/ML INSULN.PEN SC ×4 (08:08→21:38)
[2020-03-10] MEDS: Insulin Lispro 100 UNIT/ML INSULN.PEN 10 UNIT SC ×2 (08:08→11:13)
[2020-03-10] MEDS: Aspirin 81 MG TAB.CHEW PO (08:10)
[2020-03-10] MEDS: Multivitamins,Therapeutic Tablet 1 TABLET PO (08:10)
[2020-03-10 08:20] LABS: Bedside Glucose 346 mg/dL (70-110)
--- NOTE | 2020-03-10 08:56 | PN_ITS ---
Patient Problems: Active and Suspected Problems (Last Updated 08/30/17 @ 07:15 by Ranjana Tam) Severe sepsis (Acute) Osteomyelitis of great toe of right foot (Acute) Cellulitis of right foot (Acute) Subjective: Patient is a 69 year old male who underwent right hallux amputation yesterday 03/09/20. Patient is seen resting comfortably in bed. Patient reports pain is well controlled with medication. Denies N/F/V/C/CP/SOB. - Physical Exam Vitals/I&O's: Vital Signs Temp Pulse Resp BP Pulse Ox 98.7 F 90 18 154/73 H 93 03/10/20 03:30 03/10/20 07:00 03/10/20 03:30 03/10/20 03:30 03/10/20 07:17 Oxygen Flow Rate (L/min) 2 Oxygen Delivery Method Nasal Cannula Weight: 131.7 kg Body Mass Index (BMI) 38.2 Intake and Output for Last 24 Hours 03/08/20 03/09/20 03/10/20 23:59 23:59 23:59 Intake Total 1089 / 2049 2847 / 2847 629 / 629 Output Total 3000 / 3000 700 / 700 Balance 1089 / 2049 -153 / -153 -71 / -71 General: Alert, Oriented x3 HEENT: Atraumatic Extremities: Diminished Peripheral Pulses, Edema, - - right: sutures intact, skin well coapted, skin is warm at incision site but pallor is noted along incision especially medially, mild sanginous drainage noted, dorsal foot is sill erythematous, no purulence expressed, pain to palpation dorsal and medially, gross sensation intact, 2/4 DP, 1/4 PT, CFT to remaining digits <3 seconds, CFT at hallux amputation site >3 seconds Skin: Incision Musculoskeletal: Tenderness Neurological: Neuro grossly intact Psych/Mental Status: Appropriate Microbiology Past 72 Hours 03/08/20 16:48 Wound - Toe Gram Stain - Final 03/08/20 16:48 Wound - Toe Wound Culture - Final Streptococcus agalactiae (B) 03/08/20 16:48 Wound - Toe Anaerobic Culture - Preliminary Checking for anaerobes, further studies to follow. 03/09/20 Unknown Wound - Toe Gram Stain - Final 03/09/20 Unknown Bone - Toe Gram Stain - Final Laboratory Results 03/08/20 13:40: Diff Path Review Reviewed 03/09/20 06:08: Free T4 1.14, Free T3 pg/dL 1.2 L 03/09/20 06:23: POC Glucose 321 H 03/09/20 07:59: POC Glucose 336 H 03/09/20 10:36: POC Glucose 317 H 03/09/20 11:56: POC Glucose 327 H 03/09/20 16:48: POC Glucose 411 H 03/09/20 21:32: POC Glucose 415 H 03/10/20 05:54: WBC 13.1 H, RBC 4.22 L, Hgb 12.3 L, Hct 39.7 L, MCV 94.1 H, MCH 29.1, MCHC 31.0 L, RDW Std Deviation 45.8 H, RDW Coeff of Nyla 13.2, Plt Count 324, MPV 9.3 03/10/20 05:54: Sodium 134 L, Potassium 4.1, Chloride 102, Carbon Dioxide 26.0, Anion Gap 6, BUN 23 H, Creatinine 0.87, Estim Creat Clear Calc 90.56, Est GFR (MDRD) Af Amer 111, Est GFR (MDRD) Non-Af 92, BUN/Creatinine Ratio 26.3 H, Glucose 377 H, Calcium 8.8, Magnesium 2.2 03/10/20 08:07: POC Glucose 346 H Current Medications Acetaminophen (Tylenol) 650 mg PO Q6H PRN PRN PRN Reason: Pain Score 1-10/Temp > 100.7 F Last Admin: 03/09/20 14:08 Dose: 650 mg Documented by: Al Hydroxide/Mg Hydroxide (Mylanta Ii) 30 ml PO Q6H PRN PRN PRN Reason: Gastric Burning Ascorbic Acid (Vitamin C) 500 mg PO DAILY [facility] Last Admin: 03/09/20 10:34 Dose: 500 mg Documented by: Aspirin (Aspirin, Baby) 81 mg PO DAILY@0800 [facility] Last Admin: 03/10/20 08:10 Dose: 81 mg Documented by: Atorvastatin Calcium (Lipitor) 40 mg PO QHS [facility] Last Admin: 03/09/20 21:34 Dose: 40 mg Documented by: Enoxaparin Sodium (Lovenox) 40 mg SC DAILY [facility] Last Admin: 03/09/20 14:51 Dose: 40 mg Documented by: Famotidine (Pepcid) 20 mg PO BID [facility] Last Admin: 03/09/20 21:34 Dose: 20 mg Documented by: Guaifenesin (Robitussin) 20 ml PO Q4H PRN PRN PRN Reason: COUGH Hydralazine HCl (Apresoline Iv) 10 mg IV Q4H PRN PRN PRN Reason: SBP > 160 Hydromorphone HCl (Dilaudid Inj) 0.5 mg IV Q4H PRN PRN PRN Reason: Pain Score 6-10/10 Ampicillin Sodium/Sulbactam (Sodium 3 gm/ Sodium Chloride) 112 mls @ 150 mls/hr IV Q6 [facility] Last Infusion: 03/10/20 06:20 Dose: Infused Documented by: Insulin Glargine (Lantus (Bkc)) 50 units SC DAILY [facility] Last Admin: 03/09/20 10:34 Dose: 50 units Documented by: Insulin Glargine (Lantus (Bkc)) 20 units SC QHS [facility] Last Admin: 03/09/20 21:35 Dose: 20 u Documented by: Insulin Human Lispro (Humalog Kwikpen (Bkc)) 0 unit SC ACHS [facility]; Protocol Last Admin: 03/10/20 08:08 Dose: 5 units Documented by: Insulin Human Lispro (Humalog Kwikpen (Bkc)) 10 unit SC TIDAC [facility] Last Admin: 03/10/20 08:08 Dose: 10 units Documented by: Levothyroxine Sodium (Synthroid) 100 mcg PO DAILY@0600 [facility] Last Admin: 03/10/20 05:36 Dose: 100 mcg Documented by: Magnesium Hydroxide (Milk Of Magnesia) 30 ml PO DAILY PRN PRN PRN Reason: Constipation Multivitamins (Multivitamin) 1 tablet PO DAILY@0800 [facility] Last Admin: 03/10/20 08:10 Dose: 1 tablet Documented by: Nutritional Formula (Robert - [place] Flavor) [facility] Last Admin: 03/10/20 08:10 Dose: 1 packet Documented by: Ondansetron HCl (Zofran) 4 mg IV Q8H PRN PRN PRN Reason: NAUSEA/VOMITING Oxycodone HCl (Oxyir) 10 mg PO Q4H PRN PRN PRN Reason: Pain Score 4-5/10 Last Admin: 03/09/20 16:46 Dose: 10 mg Documented by: Prochlorperazine Edisylate (Compazine Iv) 5 mg IV Q4H PRN PRN PRN Reason: Breakthrough nausea/vomiting Psyllium Hydrophilic Mucilloid (Metamucil) 1 packet PO DAILY PRN PRN PRN Reason: Constipation Senna/Docusate Sodium (Senokot-S, Maxine-Colace) 2 tablet PO BID PRN PRN PRN Reason: Constipation Sodium Chloride () 10 - 40 ml IV UD PRN PRN Reason: SALINE FLUSH Last Admin: 03/09/20 14:09 Dose: 10 ml Documented by: Temazepam (Restoril) 15 mg PO QHS PRN PRN PRN Reason: INSOMNIA Throat Lozenges (Cepacol Sore Throat Lozenge) 1 lozenge MUCOUS MEM Q2H PRN PRN PRN Reason: SORE THROAT Medical Necessity - Tobacco Use Smoking Status: Former smoker Tobacco Use: Non-smoker Assessment/Plan All Active Problems (Last Updated 08/30/17 @ 07:15 by Ranjana Tam) Severe sepsis (Acute) Osteomyelitis of great toe of right foot (Acute) Cellulitis of right foot (Acute) S/P tonsillectomy (Acute) S/P colonoscopy (Acute) redness of right second toe (Acute) swelling of right second toe (Acute) s/p right hallux amputation 03/09/2020 PVD Right hallux ulceration into bone right hallux necrosis DM2 with neuropathy hyperglycemia osteomyelitis right hallux pain right hallux Patient seen and examined Reviewed PVR and discussed results with patient and how it can impact healing potential. Discussed at length with patient that there is concern about the blood flow to his foot and thus his ability to heal the incision site. Discussed importance of staying off the foot to allow best chances of healing. Discussed being NWB or using heal in surgical shoe minimally to get around. Discussed that the whiteness along the incision was concerning but we would need to watch to see if the skin heals or not. Consult vascular Dressing was changed Follow cultures Podiatry will continue to follow, contact if any questions
[2020-03-10] MEDS: Ascorbic Acid 500 MG Tablet PO (09:20)
[2020-03-10] MEDS: Famotidine 20 MG Tablet PO ×2 (09:26→21:34)
[2020-03-10] MEDS: Enoxaparin 40 MG/0.4 ML Syringe SC (09:26)
[2020-03-10 09:31] LABS: Bedside Glucose > 500 mg/dL (70-110)
[2020-03-10 09:49] LABS: Glucose 507 mg/dL (74-106)
--- NOTE | 2020-03-10 11:17 | CON.PCM_ITS ---
Problem List (1) PAD (peripheral artery disease) Status: Chronic Reason for Consult Date of Consultation: 03/10/20 History of Present Illness: The patient is a 69 year old M infection in right great toe and an upgoing toe amputation of this. He had studies show significant PAD in this leg. Vascular surgery consulted for evaluation of this and will need angiogram with intervention to improve flow to the toe. JASMYN monophsic 0.59/0.57. No prior coronary history. No stroke. No smoking currently. Hypertension on meds. Diabetic over 20 years on meds. No hyperlipidemia noted. PAD as above. [] Past Medical History Past Medical History (Chronic Problems): Chronic Problems (Last Reviewed 03/10/20 @ 11:[address] 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) Hallux limitus (Chronic) Chronic ulcer of left foot with fat layer exposed (Chronic) Hammertoe of right foot (Chronic) Hammertoe of left foot (Chronic) Delayed wound healing (Chronic) HLD (hyperlipidemia) (Chronic) Obesity (BMI 30-39.9) (Chronic) Uncontrolled type II diabetes mellitus (Chronic) PAD (peripheral artery disease) (Chronic) HTN (hypertension) (Chronic) Hypothyroid (Chronic) Diabetes mellitus (Chronic) Medical History: Medical History (Last Reviewed 03/10/20 @ 11:[address] Ranjeet Paniagua MD) PAD (peripheral artery disease) (Chronic) I73.9 HTN (hypertension) (Chronic) I10 Hypothyroid (Chronic) E03.9 Diabetes mellitus (Chronic) E11.9 Allergies No Known Allergies Allergy (Verified 03/08/20 12:31) Home Medications: Ambulatory Orders Medication Instructions Recorded Canagliflozin [Invokana] 100 mg PO DAILY 08/21/17 Levothyroxine Sodium [Synthroid] 100 mcg PO DAILY 08/21/17 Pioglitazone [Actos] 45 mg PO DAILY 08/21/17 Sitagliptin Phos/Metformin HCl 1 tab PO BID 08/21/17 [Janumet Xr 50-1,000 mg Tablet] Aspirin [Aspirin, Baby] 81 mg PO DAILY@0800 #30 tab.chew 08/24/17 Multivitamin [Multiple Vitamins] 1 each PO DAILY 09/12/17 Ascorbic Acid [Vitamin C] 500 mg PO DAILY 09/26/17 Surgical History: Surgical History (Last Reviewed 03/10/20 @ 11:[address] Ranjeet Paniagua MD) S/P tonsillectomy (Acute) Z90.89 S/P colonoscopy (Acute) Z98.890 Surgical History: tonsillectomy, - - Right second toe amputation. Psychiatric History: No pertinent psych hx Lives: Alone Smoking Status: Former smoker Tobacco Use: Non-smoker Alcohol: None Drugs: None - *Family History Maternal Family History: Family History (Last Updated 08/30/17 @ 07:15 by Ranjana Tam) Father Diabetes Heart disease Hypertension History Items: - - Patient denies any market maternal family history including heart disease, diabetes, cancer and denies any history of her having taken any medications. Paternal Family History: Family History (Last Updated 08/30/17 @ 07:15 by Ranjana Tam) Father Diabetes Heart disease Hypertension History Items: Diabetes, Heart Disease, Hypertension Review of Systems Constitutional: Denies: Chills, Fever, Weight Change HEENT: Denies: Head Aches, Sinus Congestion, Sinus Drainage Cardiovascular: Denies: Chest Pain, Palpitations Respiratory: Denies: Cough, Shortness of breath at rest, Sputum production Gastrointestinal: Denies: Abdominal Pain, Nausea, Vomiting Genitourinary: Denies: Dysuria Musculoskeletal: Denies: Joint Pain, Joint Tenderness Patient Problems: Active and Suspected Problems (Last Reviewed 03/10/20 @ 11:[address] Ranjeet Paniagua MD) Severe sepsis (Acute) Osteomyelitis of great toe of right foot (Acute) Cellulitis of right foot (Acute) - Physical Exam Vitals/I&O's: Vital Signs Temp Pulse Resp BP Pulse Ox 97.6 F L 90 18 150/65 H 94 03/10/20 09:30 03/10/20 11:00 03/10/20 09:30 03/10/20 09:30 03/10/20 09:30 Oxygen Flow Rate (L/min) 2 Oxygen Delivery Method Nasal Cannula Weight: 290 lb 5.581 oz Body Mass Index (BMI) 38.2 Intake and Output for Last 24 Hours 03/08/20 03/09/20 03/10/20 23:59 23:59 23:59 Intake Total 1089 2847 / 2847 629 / 629 Output Total 3000 / 3000 700 / 700 Balance 1089 -153 / -153 -71 / -71 General: Alert HEENT: Atraumatic, PERRLA Oral: Moist Mucosa Neck: Supple, No JVD Cardiovascular: Regular rate Abdomen: Soft, Non Tender Extremities: No clubbing, - - wound right great toe Palpable femoral pulses Dressing intact right foot Neurological: Cranial nerves II-XII grossly intact Microbiology Past 72 Hours 03/08/20 16:48 Wound - Toe Gram Stain - Final 03/08/20 16:48 Wound - Toe Wound Culture - Final Streptococcus agalactiae (B) 03/08/20 16:48 Wound - Toe Anaerobic Culture - Preliminary Checking for anaerobes, further studies to follow. 03/09/20 Unknown Wound - Toe Gram Stain - Final 03/09/20 Unknown Bone - Toe Gram Stain - Final Laboratory Results 03/08/20 13:40: Diff Path Review Reviewed 03/09/20 06:08: Free T4 1.14, Free T3 pg/dL 1.2 L 03/09/20 11:56: POC Glucose 327 H 03/09/20 16:48: POC Glucose 411 H 03/09/20 21:32: POC Glucose 415 H 03/10/20 05:54: WBC 13.1 H, RBC 4.22 L, Hgb 12.3 L, Hct 39.7 L, MCV 94.1 H, MCH 29.1, MCHC 31.0 L, RDW Std Deviation 45.8 H, RDW Coeff of Nyla 13.2, Plt Count 324, MPV 9.3 03/10/20 05:54: Sodium 134 L, Potassium 4.1, Chloride 102, Carbon Dioxide 26.0, Anion Gap 6, BUN 23 H, Creatinine 0.87, Estim Creat Clear Calc 90.56, Est GFR (MDRD) Af Amer 111, Est GFR (MDRD) Non-Af 92, BUN/Creatinine Ratio 26.3 H, Glucose 377 H, Calcium 8.8, Magnesium 2.2 03/10/20 08:07: POC Glucose 346 H 03/10/20 09:17: POC Glucose > 500 H* 03/10/20 09:26: Glucose 507 H* Current Medications Acetaminophen (Tylenol) 650 mg PO Q6H PRN PRN PRN Reason: Pain Score 1-10/Temp > 100.7 F Last Admin: 03/09/20 14:08 Dose: 650 mg Documented by: Al Hydroxide/Mg Hydroxide (Mylanta Ii) 30 ml PO Q6H PRN PRN PRN Reason: Gastric Burning Ascorbic Acid (Vitamin C) 500 mg PO DAILY [facility] Last Admin: 03/10/20 09:20 Dose: 500 mg Documented by: Aspirin (Aspirin, Baby) 81 mg PO DAILY@0800 [facility] Last Admin: 03/10/20 08:10 Dose: 81 mg Documented by: Atorvastatin Calcium (Lipitor) 40 mg PO QHS [facility] Last Admin: 03/09/20 21:34 Dose: 40 mg Documented by: Enoxaparin Sodium (Lovenox) 40 mg SC DAILY [facility] Last Admin: 03/10/20 09:26 Dose: 40 mg Documented by: Famotidine (Pepcid) 20 mg PO BID [facility] Last Admin: 03/10/20 09:26 Dose: 20 mg Documented by: Guaifenesin (Robitussin) 20 ml PO Q4H PRN PRN PRN Reason: COUGH Hydralazine HCl (Apresoline Iv) 10 mg IV Q4H PRN PRN PRN Reason: SBP > 160 Hydromorphone HCl (Dilaudid Inj) 0.5 mg IV Q4H PRN PRN PRN Reason: Pain Score 6-10/10 Ampicillin Sodium/Sulbactam (Sodium 3 gm/ Sodium Chloride) 112 mls @ 150 mls/hr IV Q6 [facility] Last Infusion: 03/10/20 06:20 Dose: Infused Documented by: Insulin Glargine (Lantus (Bkc)) 50 units SC DAILY [facility] Last Admin: 03/10/20 09:33 Dose: 50 units Documented by: Insulin Glargine (Lantus (Bkc)) 30 units SC QHS [facility] Insulin Human Lispro (Humalog Kwikpen (Bkc)) 0 unit SC ACHS [facility]; Protocol Last Admin: 03/10/20 11:13 Dose: 16 units Documented by: Insulin Human Lispro (Humalog Kwikpen (Bkc)) 10 unit SC TIDAC [facility] Last Admin: 03/10/20 11:13 Dose: 10 units Documented by: Levothyroxine Sodium (Synthroid) 100 mcg PO DAILY@0600 [facility] Last Admin: 03/10/20 05:36 Dose: 100 mcg Documented by: Magnesium Hydroxide (Milk Of Magnesia) 30 ml PO DAILY PRN PRN PRN Reason: Constipation Multivitamins (Multivitamin) 1 tablet PO DAILY@0800 [facility] Last Admin: 03/10/20 08:10 Dose: 1 tablet Documented by: Nutritional Formula (Robert - Faith Flavor) 1 packet PO BIDCM [facility] Last Admin: 03/10/20 08:10 Dose: 1 packet Documented by: Ondansetron HCl (Zofran) 4 mg IV Q8H PRN PRN PRN Reason: NAUSEA/VOMITING Oxycodone HCl (Oxyir) 10 mg PO Q4H PRN PRN PRN Reason: Pain Score 4-5/10 Last Admin: 03/09/20 16:46 Dose: 10 mg Documented by: Prochlorperazine Edisylate (Compazine Iv) 5 mg IV Q4H PRN PRN PRN Reason: Breakthrough nausea/vomiting Psyllium Hydrophilic Mucilloid (Metamucil) 1 packet PO DAILY PRN PRN PRN Reason: Constipation Senna/Docusate Sodium (Senokot-S, Maxine-Colace) 2 tablet PO BID PRN PRN PRN Reason: Constipation Sodium Chloride () 10 - 40 ml IV UD PRN PRN Reason: SALINE FLUSH Last Admin: 03/09/20 14:09 Dose: 10 ml Documented by: Temazepam (Restoril) 15 mg PO QHS PRN PRN PRN Reason: INSOMNIA Throat Lozenges (Cepacol Sore Throat Lozenge) 1 lozenge MUCOUS MEM Q2H PRN PRN PRN Reason: SORE THROAT Assessment/Plan All Active Problems (Last Reviewed 03/10/20 @ 11:[address] Ranjeet Paniagua MD) Severe sepsis (Acute) Osteomyelitis of great toe of right foot (Acute) Cellulitis of right foot (Acute) S/P tonsillectomy (Acute) S/P colonoscopy (Acute) redness of right second toe (Acute) swelling of right second toe (Acute) Patient with PAD and right great toe amputation. We will plan for right leg angiogram with intervention this Sunday.
[2020-03-10 11:20] LABS: Bedside Glucose 438 mg/dL (70-110)
[2020-03-10] MEDS: 0.9% Saline Lock 10 ML Syringe IV (12:29)
--- NOTE | 2020-03-10 12:36 | CASEMGMT ---
KRISTAL met with patient, introduced self and role at [facility]. Patient said he does not have MMO insurance anymore. He was laid off due to COVID and lost the insurance. He did not apply for Medicare B before as he had MMO. He needs to sign up for Part B and D. He expressed having financial difficulties. SW assisted patient in applying for Medicaid. Application was faxed to [employer]. KRISTAL also gave patient information on [place] [facility] [employer] Information Program ([employer]). KRISTAL told him they offer free assistance with signing up for Medicare and Medicare plans. He asked if they have a website and KRISTAL told him they do and showed him where it is on the sheet SW gave him. Patient thinks he will be fine going home at discharge, however therapy has not seen him and he is non weight bearing. KRISTAL and RN CM to continue to follow. Taylor PETIT [employer]
--- NOTE | 2020-03-10 13:45 | PN_ITS ---
<Brennan Swenson - Last Filed: 03/10/20 13:45> Patient Problems: Active and Suspected Problems (Last Reviewed 03/10/20 @ 11:[address] Ranjeet Paniagua MD) Severe sepsis (Acute) Osteomyelitis of great toe of right foot (Acute) Cellulitis of right foot (Acute) Vitals/I&O's: Vital Signs Temp Pulse Resp BP Pulse Ox 97.6 F L 90 18 150/65 H 94 03/10/20 09:30 03/10/20 11:00 03/10/20 09:30 03/10/20 09:30 03/10/20 09:30 Oxygen Flow Rate (L/min) 2 Oxygen Delivery Method Nasal Cannula Weight: 290 lb 5.581 oz Body Mass Index (BMI) 38.2 Intake and Output for Last 24 Hours 03/08/20 03/09/20 03/10/20 23:59 23:59 23:59 Intake Total 1089 / 2049 2847 / 2847 1541 / 1541 Output Total 3000 / 3000 1750 / 1750 Balance 109 / 2049 -153 / -153 -209 / -209 General: Alert, Oriented x3, Cooperative HEENT: Atraumatic, PERRLA, EOMI, Normocephalic Neck: Supple, No JVD, Negative Carotid Bruits Lungs: Clear to auscultation, Normal air movement Cardiovascular: Regular rate, No murmurs Abdomen: Bowel Sounds Present, Soft, Non Tender, Obese Extremities: No edema, Capillary Refill Less than 3 Seconds Skin: No rashes, No breakdown Musculoskeletal: No Tenderness to Palpation of Joints or Extremities Neurological: Cranial nerves II-XII grossly intact Psych/Mental Status: Normal Affect, Appropriate, Alert and oriented to time, place, person, mood and affect Microbiology Past 72 Hours 03/08/20 13:45 Blood Culture (Wb) - Anticubital Right Blood Culture - Preliminary No growth in 48 hours. 03/08/20 13:40 Blood Culture (Wb) - Anticubital Left Blood Culture - Preliminary No growth in 48 hours. 03/09/20 Unknown Wound - Toe Gram Stain - Final 03/09/20 Unknown Wound - Toe Wound Culture - Preliminary Streptococcus group B Gram positive organism 03/09/20 Unknown Bone - Toe Gram Stain - Final 03/09/20 Unknown Bone - Toe Wound Culture - Preliminary Streptococcus group B 03/08/20 16:48 Wound - Toe Gram Stain - Final 03/08/20 16:48 Wound - Toe Wound Culture - Final Streptococcus agalactiae (B) 03/08/20 16:48 Wound - Toe Anaerobic Culture - Preliminary Checking for anaerobes, further studies to follow. Laboratory Results 03/09/20 16:48: POC Glucose 411 H 03/09/20 21:32: POC Glucose 415 H 03/10/20 05:54: WBC 13.1 H, RBC 4.22 L, Hgb 12.3 L, Hct 39.7 L, MCV 94.1 H, MCH 29.1, MCHC 31.0 L, RDW Std Deviation 45.8 H, RDW Coeff of Nyla 13.2, Plt Count 324, MPV 9.3 03/10/20 05:54: Sodium 134 L, Potassium 4.1, Chloride 102, Carbon Dioxide 26.0, Anion Gap 6, BUN 23 H, Creatinine 0.87, Estim Creat Clear Calc 90.56, Est GFR (MDRD) Af Amer 111, Est GFR (MDRD) Non-Af 92, BUN/Creatinine Ratio 26.3 H, Glucose 377 H, Calcium 8.8, Magnesium 2.2 03/10/20 08:07: POC Glucose 346 H 03/10/20 09:17: POC Glucose > 500 H* 03/10/20 09:26: Glucose 507 H* 03/10/20 11:12: POC Glucose 438 H Current Medications Acetaminophen (Tylenol) 650 mg PO Q6H PRN PRN PRN Reason: Pain Score 1-10/Temp > 100.7 F Last Admin: 03/09/20 14:08 Dose: 650 mg Documented by: Al Hydroxide/Mg Hydroxide (Mylanta Ii) 30 ml PO Q6H PRN PRN PRN Reason: Gastric Burning Ascorbic Acid (Vitamin C) 500 mg PO DAILY [facility] Last Admin: 03/10/20 09:20 Dose: 500 mg Documented by: Aspirin (Aspirin, Baby) 81 mg PO DAILY@0800 [facility] Last Admin: 03/10/20 08:10 Dose: 81 mg Documented by: Atorvastatin Calcium (Lipitor) 40 mg PO QHS [facility] Last Admin: 03/09/20 21:34 Dose: 40 mg Documented by: Enoxaparin Sodium (Lovenox) 40 mg SC DAILY [facility] Last Admin: 03/10/20 09:26 Dose: 40 mg Documented by: Famotidine (Pepcid) 20 mg PO BID [facility] Last Admin: 03/10/20 09:26 Dose: 20 mg Documented by: Guaifenesin (Robitussin) 20 ml PO Q4H PRN PRN PRN Reason: COUGH Hydralazine HCl (Apresoline Iv) 10 mg IV Q4H PRN PRN PRN Reason: SBP > 160 Hydromorphone HCl (Dilaudid Inj) 0.5 mg IV Q4H PRN PRN PRN Reason: Pain Score 6-10/10 Ampicillin Sodium/Sulbactam (Sodium 3 gm/ Sodium Chloride) 112 mls @ 150 mls/hr IV Q6 [facility] Last Infusion: 03/10/20 13:15 Dose: Infused Documented by: Insulin Glargine (Lantus (Bkc)) 50 units SC DAILY [facility] Last Admin: 03/10/20 09:33 Dose: 50 units Documented by: Insulin Glargine (Lantus (Bkc)) 30 units SC QHS [facility] Insulin Human Lispro (Humalog Kwikpen (Bkc)) 0 unit SC ACHS [facility]; Protocol Last Admin: 03/10/20 11:13 Dose: 16 units Documented by: Insulin Human Lispro (Humalog Kwikpen (Bkc)) 10 unit SC TIDAC [facility] Last Admin: 03/10/20 11:13 Dose: 10 units Documented by: Levothyroxine Sodium (Synthroid) 100 mcg PO DAILY@0600 [facility] Last Admin: 03/10/20 05:36 Dose: 100 mcg Documented by: Magnesium Hydroxide (Milk Of Magnesia) 30 ml PO DAILY PRN PRN PRN Reason: Constipation Multivitamins (Multivitamin) 1 tablet PO DAILY@0800 [facility] Last Admin: 03/10/20 08:10 Dose: 1 tablet Documented by: Nutritional Formula ([facility] - [facility] Last Admin: 03/10/20 08:10 Dose: 1 packet Documented by: Ondansetron HCl (Zofran) 4 mg IV Q8H PRN PRN PRN Reason: NAUSEA/VOMITING Oxycodone HCl (Oxyir) 10 mg PO Q4H PRN PRN PRN Reason: Pain Score 4-5/10 Last Admin: 03/09/20 16:46 Dose: 10 mg Documented by: Prochlorperazine Edisylate (Compazine Iv) 5 mg IV Q4H PRN PRN PRN Reason: Breakthrough nausea/vomiting Psyllium Hydrophilic Mucilloid (Metamucil) 1 packet PO DAILY PRN PRN PRN Reason: Constipation Senna/Docusate Sodium (Senokot-S, Maxine-Colace) 2 tablet PO BID PRN PRN PRN Reason: Constipation Sodium Chloride () 10 - 40 ml IV UD PRN PRN Reason: SALINE FLUSH Last Admin: 03/10/20 12:29 Dose: 10 ml Documented by: Temazepam (Restoril) 15 mg PO QHS PRN PRN PRN Reason: INSOMNIA Throat Lozenges (Cepacol Sore Throat Lozenge) 1 lozenge MUCOUS MEM Q2H PRN PRN PRN Reason: SORE THROAT STROKE Vital Signs/Narrative: Vital Signs Pulse 03/10/20 11:00 90 Medical Necessity - Tobacco Use Smoking Status: Former smoker Tobacco Use: Non-smoker Assessment/Plan All Active Problems (Last Reviewed 03/10/20 @ 11:[address] Ranjeet Paniagua MD) Severe sepsis (Acute) Osteomyelitis of great toe of right foot (Acute) Cellulitis of right foot (Acute) S/P tonsillectomy (Acute) S/P colonoscopy (Acute) redness of right second toe (Acute) swelling of right second toe (Acute) 1. Acute severe sepsis 2/2 R great toe osteomyelitis - complicated by DMt2, PAD. current cx showing beta strep. prior cx with MSSA, MSSE, Haemophilus parainfluenzae, Prevotella disens, anerobes. Pt on Zosyn. Await surgical cx. Podiatry did amputation POD#1. ID consulted for further guidance. Leukocytosis improved. No fever. Left shift present. CRP 262, ESR 80. MRSA and MSSA initial PCR negative. Covid Neg. MRI c/w osteo. -Significant PAD per arterial studies. Dr. Paniagua consulted. Plans for intervention Sunday. 2. Uncontrolled DMt2 with hyperglycemia, obesity- increased lantus and SSI. Pt was not taking insulin at home due to cost. 3. Hyponatremia - possibly 2/2 sepsis and severely uncontrolled blood sugar. Mild, stable. Trend. 4. Hypothyroid - continue synthroid, tsh elevated, t4 normal, t3 low. 5. PAD - complicating #1. Intervention Sunday. DVT ppx: Lovenox DC planning: PT OT eval's. Pt will have significant difficulty caring for self at home however he is unwilling to consider SNF placement. This patient was seen by Brennan Swenson PA-C under the supervision of Doctor Luis Alberto. <Brittany Sahu - Last Filed: 03/10/20 16:07> Subjective: Pt states that he feels ok. States that PT was in and told him that he is to be NWB and that he is unable to do that and will just place pressure on heal. Denies pain and is overall feeling well. Vitals/I&O's: Vital Signs Temp Pulse Resp BP Pulse Ox 98.8 F 87 18 146/76 H 94 03/10/20 15:30 03/10/20 15:30 03/10/20 15:30 03/10/20 15:30 03/10/20 15:30 Oxygen Flow Rate (L/min) 1 Oxygen Delivery Method Room Air Weight: 131.7 kg Body Mass Index (BMI) 38.2 Intake and Output for Last 24 Hours 03/08/20 03/09/20 03/10/20 23:59 23:59 23:59 Intake Total 109 / 0 2847 / 2847 1541 / 1541 Output Total 3000 / 3000 1750 / 1750 Balance 1090 / 2050 -153 / -153 -209 / -209 General: Alert, Oriented x3, Cooperative, No apparent distress, Well developed, Well nourished, - - WM, appears older than stated age. ambulating from BR with WW and heal WB HEENT: Atraumatic, PERRLA, EOMI, Normocephalic, EAC Clear Oral: Moist Mucosa, No Gingival or Mucosal Lesions/ Ulcerations, - - poor dentition, Mallampati 2 Neck: Supple, No JVD, Negative Hepatojugular Reflux, No Nodes, No Nuchal Rigidity, Trachea Midline, Thyroid Normal Size and Texture Lungs: Clear to auscultation, Normal air movement, No rhonchi, No wheeze, No rales Cardiovascular: Regular rate, Regular Rhythm, Normal S1, Normal S2, No murmurs, No Ectopic Activity, No rub noted, No Gallop Abdomen: Bowel Sounds Present, Soft, Non Tender, Non-Distended, Obese, No hernias noted Extremities: No clubbing, No cyanosis, Capillary Refill Less than 3 Seconds, Edema - trace swelling distal R LE Musculoskeletal: No Muscle Wasting, Arthritic Changes Neurological: Cranial nerves II-XII grossly intact, Neuro grossly intact Psych/Mental Status: Normal Affect, Appropriate, Alert and oriented to time, place, person, mood and affect Microbiology Past 72 Hours 03/08/20 13:45 Blood Culture (Wb) - Anticubital Right Blood Culture - Preliminary No growth in 48 hours. 03/08/20 13:40 Blood Culture (Wb) - Anticubital Left Blood Culture - Preliminary No growth in 48 hours. 03/09/20 Unknown Wound - Toe Gram Stain - Final 03/09/20 Unknown Wound - Toe Wound Culture - Preliminary Streptococcus group B Gram positive organism 03/09/20 Unknown Bone - Toe Gram Stain - Final 03/09/20 Unknown Bone - Toe Wound Culture - Preliminary Streptococcus group B 03/08/20 16:48 Wound - Toe Gram Stain - Final 03/08/20 16:48 Wound - Toe Wound Culture - Final Streptococcus agalactiae (B) 03/08/20 16:48 Wound - Toe Anaerobic Culture - Preliminary Checking for anaerobes, further studies to follow. Laboratory Results 03/09/20 06:08: Diff Path Review Reviewed 03/09/20 16:48: POC Glucose 411 H 03/09/20 21:32: POC Glucose 415 H 03/10/20 05:54: WBC 13.1 H, RBC 4.22 L, Hgb 12.3 L, Hct 39.7 L, MCV 94.1 H, MCH 29.1, MCHC 31.0 L, RDW Std Deviation 45.8 H, RDW Coeff of Nyla 13.2, Plt Count 324, MPV 9.3 03/10/20 05:54: Sodium 134 L, Potassium 4.1, Chloride 102, Carbon Dioxide 26.0, Anion Gap 6, BUN 23 H, Creatinine 0.87, Estim Creat Clear Calc 90.56, Est GFR (MDRD) Af Amer 111, Est GFR (MDRD) Non-Af 92, BUN/Creatinine Ratio 26.3 H, Glucose 377 H, Calcium 8.8, Magnesium 2.2 03/10/20 08:07: POC Glucose 346 H 03/10/20 09:17: POC Glucose > 500 H* 03/10/20 09:26: Glucose 507 H* 03/10/20 11:12: POC Glucose 438 H Current Medications Acetaminophen (Tylenol) 650 mg PO Q6H PRN PRN PRN Reason: Pain Score 1-10/Temp > 100.7 F Last Admin: 03/09/20 14:08 Dose: 650 mg Documented by: Al Hydroxide/Mg Hydroxide (Mylanta Ii) 30 ml PO Q6H PRN PRN PRN Reason: Gastric Burning Ascorbic Acid (Vitamin C) 500 mg PO DAILY [facility] Last Admin: 03/10/20 09:20 Dose: 500 mg Documented by: Aspirin (Aspirin, Baby) 81 mg PO DAILY@0800 [facility] Last Admin: 03/10/20 08:10 Dose: 81 mg Documented by: Atorvastatin Calcium (Lipitor) 40 mg PO QHS [facility] Last Admin: 03/09/20 21:34 Dose: 40 mg Documented by: Enoxaparin Sodium (Lovenox) 40 mg SC DAILY [facility] Last Admin: 03/10/20 09:26 Dose: 40 mg Documented by: Famotidine (Pepcid) 20 mg PO BID [facility] Last Admin: 03/10/20 09:26 Dose: 20 mg Documented by: Guaifenesin (Robitussin) 20 ml PO Q4H PRN PRN PRN Reason: COUGH Hydralazine HCl (Apresoline Iv) 10 mg IV Q4H PRN PRN PRN Reason: SBP > 160 Hydromorphone HCl (Dilaudid Inj) 0.5 mg IV Q4H PRN PRN PRN Reason: Pain Score 6-10/10 Ampicillin Sodium/Sulbactam (Sodium 3 gm/ Sodium Chloride) 112 mls @ 150 mls/hr IV Q6 [facility] Last Infusion: 03/10/20 13:15 Dose: Infused Documented by: Insulin Glargine (Lantus (Bkc)) 50 units SC DAILY [facility] Last Admin: 03/10/20 09:33 Dose: 50 units Documented by: Insulin Glargine (Lantus (Bkc)) 30 units SC QHS [facility] Insulin Human Lispro (Humalog Kwikpen (Bk)) 0 unit SC ACHS [facility]; Protocol Last Admin: 03/10/20 11:13 Dose: 16 units Documented by: Insulin Human Lispro (Humalog Kwikpen (Bkc)) 16 unit SC TIDAC [facility] Levothyroxine Sodium (Synthroid) 100 mcg PO DAILY@0600 [facility] Last Admin: 03/10/20 05:36 Dose: 100 mcg Documented by: Magnesium Hydroxide (Milk Of Magnesia) 30 ml PO DAILY PRN PRN PRN Reason: Constipation Multivitamins (Multivitamin) 1 tablet PO DAILY@0800 [facility] Last Admin: 03/10/20 08:10 Dose: 1 tablet Documented by: Nutritional Formula (Robert - Finney Flavor) [facility] Last Admin: 03/10/20 08:10 Dose: 1 packet Documented by: Ondansetron HCl (Zofran) 4 mg IV Q8H PRN PRN PRN Reason: NAUSEA/VOMITING Oxycodone HCl (Oxyir) 10 mg PO Q4H PRN PRN PRN Reason: Pain Score 4-5/10 Last Admin: 03/09/20 16:46 Dose: 10 mg Documented by: Prochlorperazine Edisylate (Compazine Iv) 5 mg IV Q4H PRN PRN PRN Reason: Breakthrough nausea/vomiting Psyllium Hydrophilic Mucilloid (Metamucil) 1 packet PO DAILY PRN PRN PRN Reason: Constipation Senna/Docusate Sodium (Senokot-S, Maxine-Colace) 2 tablet PO BID PRN PRN PRN Reason: Constipation Sodium Chloride () 10 - 40 ml IV UD PRN PRN Reason: SALINE FLUSH Last Admin: 03/10/20 12:29 Dose: 10 ml Documented by: Temazepam (Restoril) 15 mg PO QHS PRN PRN PRN Reason: INSOMNIA Throat Lozenges (Cepacol Sore Throat Lozenge) 1 lozenge MUCOUS MEM Q2H PRN PRN PRN Reason: SORE THROAT STROKE Vital Signs/Narrative: Vital Signs Temp Pulse Resp BP Pulse Ox 03/10/20 15:30 98.8 F 87 18 146/76 H 94 03/10/20 15:00 95 Assessment/Plan I agree with the above and the following is a reflection of my Independent History and Physical Exam ASSESSMENT Severe Sepsis 2/2 R Great Toe OM -resolved R Great Toe OM 2/2 Strep DM2-uncontrolled Leukocytosis Mild Pseudohyponatremia 2/2 BGT elevation Hypothyroidism PVD HTN PLAN -S/P R Great toe amputation -Oral Augmentin at d/c per ID -Vascular study and potential intervention on 03/10 -Increase Lantus and log for better BGT control -A1c is 13.3 at home with Actos/Metformin/Sitagliptin/Invokana -Pt NEED INSULIN for home and Endo f/u BP elevated--> add lisinopril 10 mg daily Inpatient E&M: 04535 Subs Hosp L3
[2020-03-10 13:55] LABS: Pathologist Review Reviewed
--- NOTE | 2020-03-10 14:52 | PCM.PN.ID ---
Patient Problems: Active and Suspected Problems (Last Reviewed 03/10/20 @ 11:[address] Ranjeet Paniagua MD) Severe sepsis (Acute) Osteomyelitis of great toe of right foot (Acute) Cellulitis of right foot (Acute) Subjective: Patient is out of bed to a chair overall clinically stable tolerating Unasyn well. Had uneventful night. Euthermic. Objective: Alert responsive no acute distress lungs are clear abdomen soft nontender right foot dressings are in place - Physical Exam Vitals/I&O's: Vital Signs Temp Pulse Resp BP Pulse Ox 97.6 F L 90 18 150/65 H 94 03/10/20 09:30 03/10/20 11:00 03/10/20 09:30 03/10/20 09:30 03/10/20 09:30 Oxygen Flow Rate (L/min) 1 Oxygen Delivery Method Nasal Cannula Weight: 131.7 kg Body Mass Index (BMI) 38.2 Intake and Output for Last 24 Hours 03/08/20 03/09/20 03/10/20 23:59 23:59 23:59 Intake Total 1090 / 2050 2847 / 2847 1541 / 1541 Output Total 3000 / 3000 1750 / 1750 Balance 1090 / 2050 -153 / -153 -209 / -209 Microbiology Past 72 Hours 03/08/20 13:45 Blood Culture (Wb) - Anticubital Right Blood Culture - Preliminary No growth in 48 hours. 03/08/20 13:40 Blood Culture (Wb) - Anticubital Left Blood Culture - Preliminary No growth in 48 hours. 03/09/20 Unknown Wound - Toe Gram Stain - Final 03/09/20 Unknown Wound - Toe Wound Culture - Preliminary Streptococcus group B Gram positive organism 03/09/20 Unknown Bone - Toe Gram Stain - Final 03/09/20 Unknown Bone - Toe Wound Culture - Preliminary Streptococcus group B 03/08/20 16:48 Wound - Toe Gram Stain - Final 03/08/20 16:48 Wound - Toe Wound Culture - Final Streptococcus agalactiae (B) 03/08/20 16:48 Wound - Toe Anaerobic Culture - Preliminary Checking for anaerobes, further studies to follow. Laboratory Results 03/09/20 06:08: Diff Path Review Reviewed 03/09/20 16:48: POC Glucose 411 H 03/09/20 21:32: POC Glucose 415 H 03/10/20 05:54: WBC 13.1 H, RBC 4.22 L, Hgb 12.3 L, Hct 39.7 L, MCV 94.1 H, MCH 29.1, MCHC 31.0 L, RDW Std Deviation 45.8 H, RDW Coeff of Nyla 13.2, Plt Count 324, MPV 9.3 03/10/20 05:54: Sodium 134 L, Potassium 4.1, Chloride 102, Carbon Dioxide 26.0, Anion Gap 6, BUN 23 H, Creatinine 0.87, Estim Creat Clear Calc 90.56, Est GFR (MDRD) Af Amer 111, Est GFR (MDRD) Non-Af 92, BUN/Creatinine Ratio 26.3 H, Glucose 377 H, Calcium 8.8, Magnesium 2.2 03/10/20 08:07: POC Glucose 346 H 03/10/20 09:17: POC Glucose > 500 H* 03/10/20 09:26: Glucose 507 H* 03/10/20 11:12: POC Glucose 438 H Current Medications Acetaminophen (Tylenol) 650 mg PO Q6H PRN PRN PRN Reason: Pain Score 1-10/Temp > 100.7 F Last Admin: 03/09/20 14:08 Dose: 650 mg Documented by: Al Hydroxide/Mg Hydroxide (Mylanta Ii) 30 ml PO Q6H PRN PRN PRN Reason: Gastric Burning Ascorbic Acid (Vitamin C) 500 mg PO DAILY [facility] Last Admin: 03/10/20 09:20 Dose: 500 mg Documented by: Aspirin (Aspirin, Baby) 81 mg PO DAILY@0800 [facility] Last Admin: 03/10/20 08:10 Dose: 81 mg Documented by: Atorvastatin Calcium (Lipitor) 40 mg PO QHS [facility] Last Admin: 03/09/20 21:34 Dose: 40 mg Documented by: Enoxaparin Sodium (Lovenox) 40 mg SC DAILY [facility] Last Admin: 03/10/20 09:26 Dose: 40 mg Documented by: Famotidine (Pepcid) 20 mg PO BID [facility] Last Admin: 03/10/20 09:26 Dose: 20 mg Documented by: Guaifenesin (Robitussin) 20 ml PO Q4H PRN PRN PRN Reason: COUGH Hydralazine HCl (Apresoline Iv) 10 mg IV Q4H PRN PRN PRN Reason: SBP > 160 Hydromorphone HCl (Dilaudid Inj) 0.5 mg IV Q4H PRN PRN PRN Reason: Pain Score 6-10/10 Ampicillin Sodium/Sulbactam (Sodium 3 gm/ Sodium Chloride) 112 mls @ 150 mls/hr IV Q6 [facility] Last Infusion: 03/10/20 13:15 Dose: Infused Documented by: Insulin Glargine (Lantus (Bkc)) 50 units SC DAILY [facility] Last Admin: 03/10/20 09:33 Dose: 50 units Documented by: Insulin Glargine (Lantus (Bkc)) 30 units SC QHS [facility] Insulin Human Lispro (Humalog Kwikpen (Bkc)) 0 unit SC ACHS [facility]; Protocol Last Admin: 03/10/20 11:13 Dose: 16 units Documented by: Insulin Human Lispro (Humalog Kwikpen (Bkc)) 10 unit SC TIDAC [facility] Last Admin: 03/10/20 11:13 Dose: 10 units Documented by: Levothyroxine Sodium (Synthroid) 100 mcg PO DAILY@0600 [facility] Last Admin: 03/10/20 05:36 Dose: 100 mcg Documented by: Magnesium Hydroxide (Milk Of Magnesia) 30 ml PO DAILY PRN PRN PRN Reason: Constipation Multivitamins (Multivitamin) 1 tablet PO DAILY@0800 [facility] Last Admin: 03/10/20 08:10 Dose: 1 tablet Documented by: Nutritional Formula (Robert - Borden Flavor) 1 packet PO BIDCM [facility] Last Admin: 03/10/20 08:10 Dose: 1 packet Documented by: Ondansetron HCl (Zofran) 4 mg IV Q8H PRN PRN PRN Reason: NAUSEA/VOMITING Oxycodone HCl (Oxyir) 10 mg PO Q4H PRN PRN PRN Reason: Pain Score 4-5/10 Last Admin: 03/09/20 16:46 Dose: 10 mg Documented by: Prochlorperazine Edisylate (Compazine Iv) 5 mg IV Q4H PRN PRN PRN Reason: Breakthrough nausea/vomiting Psyllium Hydrophilic Mucilloid (Metamucil) 1 packet PO DAILY PRN PRN PRN Reason: Constipation Senna/Docusate Sodium (Senokot-S, Maxine-Colace) 2 tablet PO BID PRN PRN PRN Reason: Constipation Sodium Chloride () 10 - 40 ml IV UD PRN PRN Reason: SALINE FLUSH Last Admin: 03/10/20 12:29 Dose: 10 ml Documented by: Temazepam (Restoril) 15 mg PO QHS PRN PRN PRN Reason: INSOMNIA Throat Lozenges (Cepacol Sore Throat Lozenge) 1 lozenge MUCOUS MEM Q2H PRN PRN PRN Reason: SORE THROAT Medical Necessity - Tobacco Use Smoking Status: Former smoker Tobacco Use: Non-smoker Route of nutrition/ use of supplements: [] Nutritional Intake: [] IV Site: [] Butler Catheter: [] We will continue Unasyn 3 g IV every 6 hours. Patient is scheduled for vascular intervention on Sunday. Oral antibiotics in the form of Augmentin will be reasonable upon discharge
[2020-03-10] MEDS: Insulin Lispro 100 UNIT/ML INSULN.PEN 16 UNIT SC (16:50)
[2020-03-10] MEDS: oxyCODONE 5 MG Tablet 10 MG PO ×2 (16:53→21:34)
[2020-03-10 16:56] LABS: Bedside Glucose 346 mg/dL (70-110)
[2020-03-10] MEDS: Atorvastatin Calcium 40 MG Tablet PO (21:35)
[2020-03-10 21:51] LABS: Bedside Glucose 430 mg/dL (70-110)
[2020-03-11] VITALS (10 sets, daily range): BP systolic 122–139; BP diastolic 66–71; PULSE 73–85; RESP 16–18; TEMP 36.3–36.6; O2SAT 92–95
[2020-03-11] MEDS: 0.9% Saline Lock 10 ML Syringe IV ×2 (00:02→05:16)
[2020-03-11] MEDS: oxyCODONE 5 MG Tablet 10 MG PO ×5 (03:12→22:02)
[2020-03-11] MEDS: Levothyroxine 100 MCG Tablet PO (05:20)
[2020-03-11 05:42] LABS: Hematocrit 41.5 % (40-54); Hemoglobin 12.7 g/dL (13.0-16.5); Mean Corp Hgb Conc 30.6 g/dL (32-36); Mean Corpuscular Volume 94.7 fL (80-94); Mean Platelet Vol. 9.2 fl (6.2-12.0); Platelet Count 343 K/mm3 (150-450); RBC Distribution Width CV 13.2 % (11.6-14.6); RBC Distribution Width SD 46.4 fl (35.1-43.9); Red Blood Count 4.38 M/mm3 (4.6-6.2); White Blood Count 9.2 K/mm3 (4.4-11.0)
[2020-03-11 05:59] LABS: Anion Gap 3 (5-15); BUN 21 mg/dL (7-18); BUN/Creat Ratio 26.2 RATIO (10-20); Calcium,Total 8.7 mg/dL (8.5-10.1); Chloride 101 mmol/L (98-107); EST Glomerular Filtration Rate 102 mL/min (>60); Est Glom Filt Rate - Afr Amer 123 mL/min (>60); Estimated Creatinine Clearance 98.49 ml/min; Glucose 328 mg/dL (74-106); Potassium 3.8 mmol/L (3.5-5.1); Sodium Level 136 mmol/L (136-145)
[2020-03-11] MEDS: Insulin Lispro 100 UNIT/ML INSULN.PEN SC ×4 (08:01→22:08)
[2020-03-11] MEDS: Insulin Lispro 100 UNIT/ML INSULN.PEN 16 UNIT SC ×2 (08:01→11:25)
[2020-03-11] MEDS: Multivitamins,Therapeutic Tablet 1 TABLET PO (08:02)
[2020-03-11] MEDS: Aspirin 81 MG TAB.CHEW PO (08:02)
--- NOTE | 2020-03-11 08:02 | PN_ITS ---
Patient Problems: Active and Suspected Problems (Last Reviewed 03/10/20 @ 11:[address] Ranjeet Paniagua MD) Severe sepsis (Acute) Osteomyelitis of great toe of right foot (Acute) Cellulitis of right foot (Acute) Subjective: Patient was seen today resting comfortably in chair. Patient denies N/F/V/C/CP/SOB/calf pain. Patient reports some pain to foot that is controlled with pain meds. - Physical Exam Vitals/I&O's: Vital Signs Temp Pulse Resp BP Pulse Ox 97.4 F L 79 17 130/67 H 92 03/11/20 03:10 03/11/20 07:00 03/11/20 03:10 03/11/20 03:10 03/11/20 03:10 Oxygen Flow Rate (L/min) 1 Oxygen Delivery Method Room Air Weight: 131.7 kg Body Mass Index (BMI) 38.2 Intake and Output for Last 24 Hours 03/09/20 03/10/20 03/11/20 23:59 23:59 23:59 Intake Total 2847 / 2847 2113 / 2563 1574 / 1574 Output Total 3000 / 3000 3000 / 4275 2225 / 2225 Balance -153 / -153 -887 / -1712 -651 / -651 General: Alert, Oriented x3 HEENT: Atraumatic Extremities: Diminished Peripheral Pulses, Edema, - - 2/4 DP 1/4 PT, Edema noted to CFT to remaining digits 3 seconds, erythema noted to dorsal foot, incision well coapted with sutures intact, medial aspect of incision turning dusky, delayed CFT along medial incision, gross sensation intact Musculoskeletal: Tenderness - to palpation along incision Psych/Mental Status: Appropriate Microbiology Past 72 Hours 03/08/20 13:45 Blood Culture (Wb) - Anticubital Right Blood Culture - Preliminary No growth in 48 hours. 03/08/20 13:40 Blood Culture (Wb) - Anticubital Left Blood Culture - Preliminary No growth in 48 hours. 03/09/20 Unknown Wound - Toe Gram Stain - Final 03/09/20 Unknown Wound - Toe Wound Culture - Preliminary Streptococcus group B Gram positive organism 03/09/20 Unknown Bone - Toe Gram Stain - Final 03/09/20 Unknown Bone - Toe Wound Culture - Preliminary Streptococcus group B 03/08/20 16:48 Wound - Toe Gram Stain - Final 03/08/20 16:48 Wound - Toe Wound Culture - Final Streptococcus agalactiae (B) 03/08/20 16:48 Wound - Toe Anaerobic Culture - Preliminary Checking for anaerobes, further studies to follow. Laboratory Results 03/09/20 06:08: Diff Path Review Reviewed 03/10/20 08:07: POC Glucose 346 H 03/10/20 09:17: POC Glucose > 500 H* 03/10/20 09:26: Glucose 507 H* 03/10/20 11:12: POC Glucose 438 H 03/10/20 16:48: POC Glucose 346 H 03/10/20 21:37: POC Glucose 430 H 03/11/20 05:25: WBC 9.2, RBC 4.38 L, Hgb 12.7 L, Hct 41.5, MCV 94.7 H, MCH 29.0, MCHC 30.6 L, RDW Std Deviation 46.4 H, RDW Coeff of Nyla 13.2, Plt Count 343, MPV 9.2 03/11/20 05:25: Sodium 136, Potassium 3.8, Chloride 101, Carbon Dioxide 32.0, Anion Gap 3 L, BUN 21 H, Creatinine 0.80, Estim Creat Clear Calc 98.49, Est GFR (MDRD) Af Amer 123, Est GFR (MDRD) Non-Af 102, BUN/Creatinine Ratio 26.2 H, Glucose 328 H, Calcium 8.7 Current Medications Acetaminophen (Tylenol) 650 mg PO Q6H PRN PRN PRN Reason: Pain Score 1-10/Temp > 100.7 F Last Admin: 03/09/20 14:08 Dose: 650 mg Documented by: Al Hydroxide/Mg Hydroxide (Mylanta Ii) 30 ml PO Q6H PRN PRN PRN Reason: Gastric Burning Ascorbic Acid (Vitamin C) 500 mg PO DAILY [facility] Last Admin: 03/10/20 09:20 Dose: 500 mg Documented by: Aspirin (Aspirin, Baby) 81 mg PO DAILY@0800 [facility] Last Admin: 03/10/20 08:10 Dose: 81 mg Documented by: Atorvastatin Calcium (Lipitor) 40 mg PO QHS [facility] Last Admin: 03/10/20 21:35 Dose: 40 mg Documented by: Enoxaparin Sodium (Lovenox) 40 mg SC DAILY [facility] Last Admin: 03/10/20 09:26 Dose: 40 mg Documented by: Famotidine (Pepcid) 20 mg PO BID [facility] Last Admin: 03/10/20 21:34 Dose: 20 mg Documented by: Guaifenesin (Robitussin) 20 ml PO Q4H PRN PRN PRN Reason: COUGH Hydralazine HCl (Apresoline Iv) 10 mg IV Q4H PRN PRN PRN Reason: SBP > 160 Hydromorphone HCl (Dilaudid Inj) 0.5 mg IV Q4H PRN PRN PRN Reason: Pain Score 6-10/10 Ampicillin Sodium/Sulbactam (Sodium 3 gm/ Sodium Chloride) 112 mls @ 150 mls/hr IV Q6 [facility] Last Infusion: 03/11/20 06:01 Dose: Infused Documented by: Insulin Glargine (Lantus (Bkc)) 50 units SC DAILY [facility] Last Admin: 03/10/20 09:33 Dose: 50 units Documented by: Insulin Glargine (Lantus (Bkc)) 30 units SC QHS [facility] Last Admin: 03/10/20 21:39 Dose: 30 units Documented by: Insulin Human Lispro (Humalog Kwikpen (Bkc)) 0 unit SC ACHS [facility]; Protocol Last Admin: 03/10/20 21:38 Dose: 16 units Documented by: Insulin Human Lispro (Humalog Kwikpen (Bkc)) 16 unit SC TIDAC [facility] Last Admin: 03/10/20 16:50 Dose: 16 units Documented by: Levothyroxine Sodium (Synthroid) 100 mcg PO DAILY@0600 [facility] Last Admin: 03/11/20 05:20 Dose: 100 mcg Documented by: Lisinopril (Zestril) 10 mg PO DAILY [facility] Magnesium Hydroxide (Milk Of Magnesia) 30 ml PO DAILY PRN PRN PRN Reason: Constipation Multivitamins (Multivitamin) 1 tablet PO DAILY@0800 [facility] Last Admin: 03/10/20 08:10 Dose: 1 tablet Documented by: Nutritional Formula (Robert - [place] Flavor) 1 packet PO BIDCM [facility] Last Admin: 03/10/20 16:56 Dose: 1 packet Documented by: Ondansetron HCl (Zofran) 4 mg IV Q8H PRN PRN PRN Reason: NAUSEA/VOMITING Oxycodone HCl (Oxyir) 10 mg PO Q4H PRN PRN PRN Reason: Pain Score 4-5/10 Last Admin: 03/11/20 03:12 Dose: 10 mg Documented by: Prochlorperazine Edisylate (Compazine Iv) 5 mg IV Q4H PRN PRN PRN Reason: Breakthrough nausea/vomiting Psyllium Hydrophilic Mucilloid (Metamucil) 1 packet PO DAILY PRN PRN PRN Reason: Constipation Senna/Docusate Sodium (Senokot-S, Maxine-Colace) 2 tablet PO BID PRN PRN PRN Reason: Constipation Sodium Chloride () 10 - 40 ml IV UD PRN PRN Reason: SALINE FLUSH Last Admin: 03/11/20 05:16 Dose: 10 ml Documented by: Temazepam (Restoril) 15 mg PO QHS PRN PRN PRN Reason: INSOMNIA Throat Lozenges (Cepacol Sore Throat Lozenge) 1 lozenge MUCOUS MEM Q2H PRN PRN PRN Reason: SORE THROAT Medical Necessity - Tobacco Use Smoking Status: Former smoker Tobacco Use: Non-smoker Assessment/Plan All Active Problems (Last Reviewed 03/10/20 @ 11:[address] Ranjeet Paniagua MD) Severe sepsis (Acute) Osteomyelitis of great toe of right foot (Acute) Cellulitis of right foot (Acute) S/P tonsillectomy (Acute) S/P colonoscopy (Acute) redness of right second toe (Acute) swelling of right second toe (Acute) s/p right hallux amputation 03/09/2020 PVD Right hallux ulceration into bone right hallux necrosis DM2 with neuropathy hyperglycemia osteomyelitis right hallux pain right hallux Patient seen and examined Reviewed PVR and discussed results with patient and how it can impact healing potential. Patient to undergo angiogram tomorrow. Will await and see if incision rebounds afterwards. Will continue to monitor. Discussed with patient that there are concerns on healing potential and there is the possibility that the incision may not heal which could lead to necessary wound care or further surgery including more proximal amputation. Discussed at length with patient that there is concern about the blood flow to his foot and thus his ability to heal the incision site. Discussed importance of staying off the foot to allow best chances of healing. Discussed being NWB or using heel in surgical shoe minimally to get around. Discussed that the discoloration along the incision was concerning but we would need to watch to see if the skin heals or not. Dressing was changed antibiotics per ID, augmentin for DC leukocytosis resolved Follow OR Cx Podiatry will continue to follow, contact if any questions
[2020-03-11 08:31] LABS: Bedside Glucose 348 mg/dL (70-110)
[2020-03-11] MEDS: Ascorbic Acid 500 MG Tablet PO (09:07)
[2020-03-11] MEDS: Lisinopril 10 MG Tablet PO (09:07)
[2020-03-11] MEDS: Famotidine 20 MG Tablet PO ×2 (09:07→21:59)
[2020-03-11] MEDS: Enoxaparin 40 MG/0.4 ML Syringe SC (10:23)
--- NOTE | 2020-03-11 13:05 | PN_ITS ---
<Rhea Mobley - Last Filed: 03/11/20 13:13> Patient Problems: Active and Suspected Problems (Last Reviewed 03/10/20 @ 11:[address] Ranjeet Paniagua MD) Severe sepsis (Acute) Osteomyelitis of great toe of right foot (Acute) Cellulitis of right foot (Acute) Subjective: Patient seen and examined. No acute events overnight. Denies fever, chills. Reports intermittent left foot surgical pain, well controlled with PRN regimen. Plan for vascular intervention tomorrow. - Physical Exam Vitals/I&O's: Vital Signs Temp Pulse Resp BP Pulse Ox 97.7 F L 83 16 138/66 H 94 03/11/20 09:10 03/11/20 09:10 03/11/20 09:10 03/11/20 09:10 03/11/20 09:10 Oxygen Flow Rate (L/min) 1 Oxygen Delivery Method Room Air Weight: 290 lb 5.581 oz Body Mass Index (BMI) 38.2 Intake and Output for Last 24 Hours 03/09/20 03/10/20 03/11/20 23:59 23:59 23:59 Intake Total 2847 / 2847 2113 / 2563 2774 / 2774 Output Total 3000 / 3000 3000 / 4275 3050 / 3050 Balance -153 / -153 -887 / -1712 -276 / -276 General: Alert, Oriented x3, Cooperative HEENT: Atraumatic, PERRLA, EOMI, Normocephalic Neck: Supple, No JVD, Negative Carotid Bruits Lungs: Clear to auscultation, Normal air movement Cardiovascular: Regular rate, No murmurs Abdomen: Bowel Sounds Present, Soft, Non Tender, Non-Distended Extremities: No clubbing, No cyanosis, No edema, Capillary Refill Less than 3 Seconds Skin: No rashes, No breakdown, - - Right foot postop dressing intact Musculoskeletal: No Tenderness to Palpation of Joints or Extremities Neurological: Cranial nerves II-XII grossly intact, Neuro grossly intact Psych/Mental Status: Normal Affect, Appropriate Microbiology Past 72 Hours 03/09/20 Unknown Wound - Toe Gram Stain - Final 03/09/20 Unknown Wound - Toe Wound Culture - Preliminary Streptococcus agalactiae (B) Staphylococcus species 03/09/20 Unknown Bone - Toe Gram Stain - Final 03/09/20 Unknown Bone - Toe Wound Culture - Final Streptococcus agalactiae (B) 03/08/20 16:48 Wound - Toe Gram Stain - Final 03/08/20 16:48 Wound - Toe Wound Culture - Final Streptococcus agalactiae (B) 03/08/20 16:48 Wound - Toe Anaerobic Culture - Final No anaerobic bacteria isolated. 03/08/20 13:45 Blood Culture (Wb) - Anticubital Right Blood Culture - Preliminary No growth in 48 hours. 03/08/20 13:40 Blood Culture (Wb) - Anticubital Left Blood Culture - Preliminary No growth in 48 hours. Laboratory Results 03/09/20 06:08: Diff Path Review Reviewed 03/10/20 16:48: POC Glucose 346 H 03/10/20 21:37: POC Glucose 430 H 03/11/20 05:25: WBC 9.2, RBC 4.38 L, Hgb 12.7 L, Hct 41.5, MCV 94.7 H, MCH 29.0, MCHC 30.6 L, RDW Std Deviation 46.4 H, RDW Coeff of Nyla 13.2, Plt Count 343, MPV 9.2 03/11/20 05:25: Sodium 136, Potassium 3.8, Chloride 101, Carbon Dioxide 32.0, Anion Gap 3 L, BUN 21 H, Creatinine 0.80, Estim Creat Clear Calc 98.49, Est GFR (MDRD) Af Amer 123, Est GFR (MDRD) Non-Af 102, BUN/Creatinine Ratio 26.2 H, Glucose 328 H, Calcium 8.7 03/11/20 07:59: POC Glucose 348 H Current Medications Acetaminophen (Tylenol) 650 mg PO Q6H PRN PRN PRN Reason: Pain Score 1-10/Temp > 100.7 F Last Admin: 03/09/20 14:08 Dose: 650 mg Documented by: Al Hydroxide/Mg Hydroxide (Mylanta Ii) 30 ml PO Q6H PRN PRN PRN Reason: Gastric Burning Ascorbic Acid (Vitamin C) 500 mg PO DAILY [facility] Last Admin: 03/11/20 09:07 Dose: 500 mg Documented by: Aspirin (Aspirin, Baby) 81 mg PO DAILY@0800 [facility] Last Admin: 03/11/20 08:02 Dose: 81 mg Documented by: Atorvastatin Calcium (Lipitor) 40 mg PO QHS [facility] Last Admin: 03/10/20 21:35 Dose: 40 mg Documented by: Enoxaparin Sodium (Lovenox) 40 mg SC DAILY [facility] Last Admin: 03/11/20 10:23 Dose: 40 mg Documented by: Famotidine (Pepcid) 20 mg PO BID [facility] Last Admin: 03/11/20 09:07 Dose: 20 mg Documented by: Guaifenesin (Robitussin) 20 ml PO Q4H PRN PRN PRN Reason: COUGH Hydralazine HCl (Apresoline Iv) 10 mg IV Q4H PRN PRN PRN Reason: SBP > 160 Hydromorphone HCl (Dilaudid Inj) 0.5 mg IV Q4H PRN PRN PRN Reason: Pain Score 6-10/10 Ampicillin Sodium/Sulbactam (Sodium 3 gm/ Sodium Chloride) 112 mls @ 150 mls/hr IV Q6 [facility] Last Admin: 03/11/20 11:27 Dose: 150 mls/hr Documented by: Insulin Glargine (Lantus (Bkc)) 50 units SC DAILY [facility] Last Admin: 03/11/20 10:23 Dose: 50 units Documented by: Insulin Glargine (Lantus (Bkc)) 30 units SC QHS [facility] Last Admin: 03/10/20 21:39 Dose: 30 units Documented by: Insulin Human Lispro (Humalog Kwikpen (Bkc)) 0 unit SC ACHS [facility]; Protocol Last Admin: 03/11/20 11:25 Dose: 16 units Documented by: Insulin Human Lispro (Humalog Kwikpen (Bkc)) 16 unit SC TIDAC [facility] Last Admin: 03/11/20 11:25 Dose: 16 units Documented by: Levothyroxine Sodium (Synthroid) 100 mcg PO DAILY@0600 [facility] Last Admin: 03/11/20 05:20 Dose: 100 mcg Documented by: Lisinopril (Zestril) 10 mg PO DAILY [facility] Last Admin: 03/11/20 09:07 Dose: 10 mg Documented by: Magnesium Hydroxide (Milk Of Magnesia) 30 ml PO DAILY PRN PRN PRN Reason: Constipation Multivitamins (Multivitamin) 1 tablet PO DAILY@0800 [facility] Last Admin: 03/11/20 08:02 Dose: 1 tablet Documented by: Nutritional Formula (Robert - [place] Flavor) 1 packet PO BIDCM [facility] Last Admin: 03/11/20 08:02 Dose: 1 packet Documented by: Ondansetron HCl (Zofran) 4 mg IV Q8H PRN PRN PRN Reason: NAUSEA/VOMITING Oxycodone HCl (Oxyir) 10 mg PO Q4H PRN PRN PRN Reason: Pain Score 4-5/10 Last Admin: 03/11/20 09:07 Dose: 10 mg Documented by: Prochlorperazine Edisylate (Compazine Iv) 5 mg IV Q4H PRN PRN PRN Reason: Breakthrough nausea/vomiting Psyllium Hydrophilic Mucilloid (Metamucil) 1 packet PO DAILY PRN PRN PRN Reason: Constipation Senna/Docusate Sodium (Senokot-S, Maxine-Colace) 2 tablet PO BID PRN PRN PRN Reason: Constipation Sodium Chloride () 10 - 40 ml IV UD PRN PRN Reason: SALINE FLUSH Last Admin: 03/11/20 05:16 Dose: 10 ml Documented by: Temazepam (Restoril) 15 mg PO QHS PRN PRN PRN Reason: INSOMNIA Throat Lozenges (Cepacol Sore Throat Lozenge) 1 lozenge MUCOUS MEM Q2H PRN PRN PRN Reason: SORE THROAT Medical Necessity - Tobacco Use Smoking Status: Former smoker Tobacco Use: Non-smoker Assessment/Plan All Active Problems (Last Reviewed 03/10/20 @ 11:[address] Ranjeet Paniagua MD) Severe sepsis (Acute) Osteomyelitis of great toe of right foot (Acute) Cellulitis of right foot (Acute) S/P tonsillectomy (Acute) S/P colonoscopy (Acute) redness of right second toe (Acute) swelling of right second toe (Acute) 1. Acute severe sepsis secondary to right great toe osteomyelitis-status post right hallux amputation. Culture growing strep agalactiae and staph species. Podiatry and ID following. Wound RN consult. Per ID, Augmentin at discharge. Continue IV Unasyn. 2. Significant PAD-per arterial studies. Dr. Paniagua consulted with plans for intervention on Sunday. 3. Uncontrolled type 2 diabetes mellitus-patient not taking home insulin due to cost. Continue Lantus and sliding scale insulin. Check coverage at discharge. 4. Pseudohyponatremia-resolved. 5. Hypothyroidism-continue Synthroid regimen. DVT prophylaxis- Lovenox sc This patient was seen by GLENIS Campos under the supervision of Dr. Sahu. <Brittany Sahu - Last Filed: 03/11/20 14:04> - Physical Exam Vitals/I&O's: Vital Signs Temp Pulse Resp BP Pulse Ox 97.7 F L 83 16 138/66 H 94 03/11/20 09:10 03/11/20 09:10 03/11/20 09:10 03/11/20 09:10 03/11/20 09:10 Oxygen Flow Rate (L/min) 1 Oxygen Delivery Method Room Air Weight: 131.7 kg Body Mass Index (BMI) 38.2 Intake and Output for Last 24 Hours 03/09/20 03/10/20 03/11/20 23:59 23:59 23:59 Intake Total 2847 / 2847 2113 / 2563 2886 / 2886 Output Total 3000 / 3000 3000 / 4275 3050 / 3050 Balance -153 / -153 -887 / -1712 -164 / -164 General: Alert, Oriented x3, Cooperative, No apparent distress, Well developed, Well nourished, - - MO, WM, sitting up in a chair watching TV, appears comfortable HEENT: Atraumatic, PERRLA, EOMI, Normocephalic Oral: Moist Mucosa, No Gingival or Mucosal Lesions/ Ulcerations Neck: Supple, Negative Hepatojugular Reflux, No Nodes, Trachea Midline, Thyroid Normal Size and Texture Lungs: Clear to auscultation, Normal air movement, No rhonchi, No wheeze, No rales Cardiovascular: Regular rate, Regular Rhythm, Normal S1, Normal S2, No murmurs, No Ectopic Activity, No rub noted Abdomen: Bowel Sounds Present, Soft, Non Tender, Non-Distended, No Hepato- splenomegaly, Obese Extremities: No clubbing, No cyanosis, Capillary Refill Less than 3 Seconds, Diminished Peripheral Pulses, Edema - trace R LE Musculoskeletal: No Tenderness to Palpation of Joints or Extremities, No Muscle Wasting, Arthritic Changes Lymphatic: No Cervical, Supraclavicular, or Inguinal Adenopathy Neurological: Cranial nerves II-XII grossly intact, Neuro grossly intact, Muscle tone normal, Coordination normal Psych/Mental Status: Normal Affect, Appropriate, Alert and oriented to time, place, person, mood and affect Microbiology Past 72 Hours 03/09/20 Unknown Wound - Toe Gram Stain - Final 03/09/20 Unknown Wound - Toe Wound Culture - Preliminary Streptococcus agalactiae (B) Staphylococcus species 03/09/20 Unknown Bone - Toe Gram Stain - Final 03/09/20 Unknown Bone - Toe Wound Culture - Final Streptococcus agalactiae (B) 03/08/20 16:48 Wound - Toe Gram Stain - Final 03/08/20 16:48 Wound - Toe Wound Culture - Final Streptococcus agalactiae (B) 03/08/20 16:48 Wound - Toe Anaerobic Culture - Final No anaerobic bacteria isolated. 03/08/20 13:45 Blood Culture (Wb) - Anticubital Right Blood Culture - Preliminary No growth in 48 hours. 03/08/20 13:40 Blood Culture (Wb) - Anticubital Left Blood Culture - Preliminary No growth in 48 hours. Laboratory Results 03/09/20 06:08: Diff Path Review Reviewed 03/10/20 16:48: POC Glucose 346 H 03/10/20 21:37: POC Glucose 430 H 03/11/20 05:25: WBC 9.2, RBC 4.38 L, Hgb 12.7 L, Hct 41.5, MCV 94.7 H, MCH 29.0, MCHC 30.6 L, RDW Std Deviation 46.4 H, RDW Coeff of Nyla 13.2, Plt Count 343, MPV 9.2 03/11/20 05:25: Sodium 136, Potassium 3.8, Chloride 101, Carbon Dioxide 32.0, Anion Gap 3 L, BUN 21 H, Creatinine 0.80, Estim Creat Clear Calc 98.49, Est GFR (MDRD) Af Amer 123, Est GFR (MDRD) Non-Af 102, BUN/Creatinine Ratio 26.2 H, Glucose 328 H, Calcium 8.7 03/11/20 07:59: POC Glucose 348 H Current Medications Acetaminophen (Tylenol) 650 mg PO Q6H PRN PRN PRN Reason: Pain Score 1-10/Temp > 100.7 F Last Admin: 03/09/20 14:08 Dose: 650 mg Documented by: Al Hydroxide/Mg Hydroxide (Mylanta Ii) 30 ml PO Q6H PRN PRN PRN Reason: Gastric Burning Ascorbic Acid (Vitamin C) 500 mg PO DAILY [facility] Last Admin: 03/11/20 09:07 Dose: 500 mg Documented by: Aspirin (Aspirin, Baby) 81 mg PO DAILY@0800 [facility] Last Admin: 03/11/20 08:02 Dose: 81 mg Documented by: Atorvastatin Calcium (Lipitor) 40 mg PO QHS [facility] Last Admin: 03/10/20 21:35 Dose: 40 mg Documented by: Enoxaparin Sodium (Lovenox) 40 mg SC DAILY [facility] Last Admin: 03/11/20 10:23 Dose: 40 mg Documented by: Famotidine (Pepcid) 20 mg PO BID [facility] Last Admin: 03/11/20 09:07 Dose: 20 mg Documented by: Guaifenesin (Robitussin) 20 ml PO Q4H PRN PRN PRN Reason: COUGH Hydralazine HCl (Apresoline Iv) 10 mg IV Q4H PRN PRN PRN Reason: SBP > 160 Hydromorphone HCl (Dilaudid Inj) 0.5 mg IV Q4H PRN PRN PRN Reason: Pain Score 6-10/10 Ampicillin Sodium/Sulbactam (Sodium 3 gm/ Sodium Chloride) 112 mls @ 150 mls/hr IV Q6 [facility] Last Infusion: 03/11/20 12:12 Dose: Infused Documented by: Sodium Chloride () 250 mls @ 15 mls/hr IV .[id number] PRN PRN Reason: Saline Flush Sodium Chloride () 250 mls @ 15 mls/hr IV .[id number] PRN PRN Reason: Additional IVPB Infusion Insulin Glargine (Lantus (Bkc)) 50 units SC DAILY [facility] Last Admin: 03/11/20 10:23 Dose: 50 units Documented by: Insulin Glargine (Lantus (Bkc)) 30 units SC QHS [facility] Last Admin: 03/10/20 21:39 Dose: 30 units Documented by: Insulin Human Lispro (Humalog Kwikpen (Bkc)) 0 unit SC ACHS [facility]; Protocol Last Admin: 03/11/20 11:25 Dose: 16 units Documented by: Insulin Human Lispro (Humalog Kwikpen (Bkc)) 16 unit SC TIDAC [facility] Last Admin: 03/11/20 11:25 Dose: 16 units Documented by: Levothyroxine Sodium (Synthroid) 100 mcg PO DAILY@0600 [facility] Last Admin: 03/11/20 05:20 Dose: 100 mcg Documented by: Lisinopril (Zestril) 10 mg PO DAILY [facility] Last Admin: 03/11/20 09:07 Dose: 10 mg Documented by: Magnesium Hydroxide (Milk Of Magnesia) 30 ml PO DAILY PRN PRN PRN Reason: Constipation Multivitamins (Multivitamin) 1 tablet PO DAILY@0800 [facility] Last Admin: 03/11/20 08:02 Dose: 1 tablet Documented by: Nutritional Formula (Robert - [place] Flavor) [facility] Last Admin: 03/11/20 08:02 Dose: 1 packet Documented by: Ondansetron HCl (Zofran) 4 mg IV Q8H PRN PRN PRN Reason: NAUSEA/VOMITING Oxycodone HCl (Oxyir) 10 mg PO Q4H PRN PRN PRN Reason: Pain Score 4-5/10 Last Admin: 03/11/20 09:07 Dose: 10 mg Documented by: Prochlorperazine Edisylate (Compazine Iv) 5 mg IV Q4H PRN PRN PRN Reason: Breakthrough nausea/vomiting Psyllium Hydrophilic Mucilloid (Metamucil) 1 packet PO DAILY PRN PRN PRN Reason: Constipation Senna/Docusate Sodium (Senokot-S, Maxine-Colace) 2 tablet PO BID PRN PRN PRN Reason: Constipation Sodium Chloride () 10 - 40 ml IV UD PRN PRN Reason: SALINE FLUSH Last Admin: 03/11/20 05:16 Dose: 10 ml Documented by: Temazepam (Restoril) 15 mg PO QHS PRN PRN PRN Reason: INSOMNIA Throat Lozenges (Cepacol Sore Throat Lozenge) 1 lozenge MUCOUS MEM Q2H PRN PRN PRN Reason: SORE THROAT Assessment/Plan I agree with the above and the following is a reflection of my Independent History and Physical Exam ASSESSMENT Severe Sepsis 2/2 R Great Toe OM -resolved R Great Toe OM 2/2 Strep DM2-uncontrolled Leukocytosis Mild Pseudohyponatremia 2/2 BGT elevation -resolved Hypothyroidism PVD HTN Anemia PLAN -S/P R Great toe amputation -Oral Augmentin at d/c per ID--> will need to clarify length of desired treatment prior to d/c -RLE angiogram and intervention planned for tomorrow -Increase Lantus to 50 u BID and log to 25 TIDAC for better BGT control -A1c is 13.3 at home with Actos/Metformin/Sitagliptin/Invokana -Pt NEED INSULIN for home and Endo f/u (may need U 500 insulin) -BP better with addition of Lisinopril -monitor and titrate as needed Inpatient E&M: 53709 Subs Hosp L3
--- NOTE | 2020-03-11 13:44 | CASEMGMT ---
Pt is declining SNF placement at this time and states his granddaughter will be able to help him with dressing changes. Rhea OWUSU will notify or pass on to notify granddaughter to come in to observe dressing change prior to discharge. CM to follow. Unique OWUSU CM
--- NOTE | 2020-03-11 13:47 | NURSING ---
wound photo: right foot
--- NOTE | 2020-03-11 13:48 | NURSING ---
wound photo: right foot
[2020-03-11 16:00] LABS: Bedside Glucose 407 mg/dL (70-110)
[2020-03-11 16:00] LABS: Bedside Glucose 455 mg/dL (70-110)
[2020-03-11] MEDS: Insulin Lispro 100 UNIT/ML INSULN.PEN 25 UNIT SC (17:08)
[2020-03-11 17:16] LABS: Bedside Glucose 331 mg/dL (70-110)
[2020-03-11] MEDS: Atorvastatin Calcium 40 MG Tablet PO (21:59)
[2020-03-11 22:16] LABS: Bedside Glucose 405 mg/dL (70-110)
[2020-03-12] VITALS (17 sets, daily range): BP systolic 110–149; BP diastolic 62–84; PULSE 68–98; RESP 16–18; TEMP 36.2–37.3; O2SAT 90–96
[2020-03-12] MEDS: 0.9% Saline Lock 10 ML Syringe IV ×3 (00:21→12:46)
[2020-03-12] MEDS: oxyCODONE 5 MG Tablet 10 MG PO ×2 (02:49→11:45)
[2020-03-12 06:04] LABS: Hematocrit 38.7 % (40-54); Hemoglobin 12.4 g/dL (13.0-16.5); Mean Corpuscular Hgb 29.9 pg (27.0-32.0); Mean Corpuscular Volume 93.3 fL (80-94); Mean Platelet Vol. 9.2 fl (6.2-12.0); Platelet Count 357 K/mm3 (150-450); RBC Distribution Width CV 13.2 % (11.6-14.6); RBC Distribution Width SD 45.1 fl (35.1-43.9); Red Blood Count 4.15 M/mm3 (4.6-6.2); White Blood Count 10.5 K/mm3 (4.4-11.0)
[2020-03-12] MEDS: Levothyroxine 100 MCG Tablet PO (06:30)
[2020-03-12] MEDS: Lisinopril 10 MG Tablet PO (06:31)
[2020-03-12] MEDS: Aspirin 81 MG TAB.CHEW PO (06:31)
[2020-03-12 06:35] LABS: Anion Gap 5 (5-15); BUN 17 mg/dL (7-18); BUN/Creat Ratio 25.1 RATIO (10-20); Calcium,Total 8.8 mg/dL (8.5-10.1); Chloride 104 mmol/L (98-107); Creatinine, Serum 0.68 mg/dL (0.70-1.30); EST Glomerular Filtration Rate 123 mL/min (>60); Est Glom Filt Rate - Afr Amer 149 mL/min (>60); Estimated Creatinine Clearance 78.79 ml/min; Glucose 265 mg/dL (74-106); Potassium 3.9 mmol/L (3.5-5.1); Sodium Level 137 mmol/L (136-145)
[2020-03-12 06:45] LABS: Bedside Glucose 272 mg/dL (70-110)
--- NOTE | 2020-03-12 08:19 | OP.PCM_ITS ---
Problem List (1) PAD (peripheral artery disease) Status: Chronic Report of Operation Date of Procedure: 03/12/20 Pre-Operative Diagnosis: PAD with gangrene Post-Operative Diagnosis: Same Surgery/Procedure Performed:: 1. Ultrasound-guided access retrograde left common femoral artery. 2. Stent the right SFA to the proximal popliteal with a 6 x 200 prot?g? and a 6 x 80 prot?g?, post balloon with a 6 mm balloon. Right lower extremity angiogram with catheter placed into the popliteal artery. 3. Closure with Star close. Type of Anesthesia:: Sedation,Conscious Description of Procedure: Patient brought to the operating room. Underwent appropriate timeout consent. Underwent sedation. Prepped and draped in a sterile fashion. We did ultrasound-guided access retrograde in the left common femoral artery. We got up and over the bifurcation did an angiogram from the right external iliac artery. We gave 5000 units of heparin. We then brought in a long 6 Norwegian sheath. Using a quick cross and Glidewire we got through the occlusion into the proximal to mid popliteal artery. The area the adductor was a very calcified area was able to pop through this into the sen[place] vessel. We imaged from there and it showed the popliteal artery was widely patent below this. We then imaged below the knee and the anterior tibial artery occluded after its takeoff with collateral flow filling the very distal anterior tibial artery into the dorsalis pedis. Peroneal artery and posterior tibial artery were patent all the way throughout and into the foot. In good caliber. We replaced the wire and we ballooned through the total occlusion with a 5 x 200 balloon for 2 different inflations each for over 2 minutes. We then stented from the proximal popliteal up with a 6 x 200 prot?g? and then extended up to the very proximal femoral artery with a 6 x 80 prot?g?. We post balloon both of these with a 6 x 200 balloon to do for inflations in each for over 45 seconds to 1 minute. Completion angiogram was much improved with brisk flow through this entire area. We removed out the sheath deployed a Star close with good hemostasis. He was brought to recovery stable condition. Sedation: This 69-year-old gentleman underwent moderate sedation given by Dr. Ranjeet Paniagua. He was monitored EKG blood pressure and pulse ox for over the 30 minutes of the procedure. See the EMR for the complete record.
--- NOTE | 2020-03-12 11:42 | PCM.DC ---
- Discharge Diagnoses Current Active Problems: Current Active and Chronic Problems (Last Reviewed 03/10/20 @ 11:[address] Ranjeet Paniagua MD) Severe sepsis (Acute) Osteomyelitis of great toe of right foot (Acute) Cellulitis of right foot (Acute) HLD (hyperlipidemia) (Chronic) Obesity (BMI 30-39.9) (Chronic) Uncontrolled type II diabetes mellitus (Chronic) You will use the following diet at home:: Cardiac Discharge Activity: Return to Normal Activity, - - Follow post angiogram instructions. Call your doctor if you observe: Fever of 101 or Higher, Shortness of breath, Dizziness, Fainting spells, Chest pain Allergies/Adverse Reactions: Allergies No Known Allergies Allergy (Verified 03/08/20 12:31) Medications to take at Discharge Levothyroxine Sodium [Synthroid] 100 mcg PO DAILY 08/21/17 Aspirin [Aspirin, Baby] 81 mg PO DAILY@0800 #30 tab.chew 08/24/17 Multivitamin [Multiple Vitamins] 1 each PO DAILY 09/12/17 Ascorbic Acid [Vitamin C] 500 mg PO DAILY 09/26/17 Amox/Clavulanate Tablet [Augmentin Tablet] 875 mg PO Q12H #20 tab 03/12/20 Atorvastatin Calcium 20 mg PO QHS #30 tab 03/12/20 Clopidogrel Bisulfate [Plavix] 75 mg PO DAILY #30 tab 03/12/20 Insulin Glargine [Lantus SoloStar Pen] 50 units SUBCUT DAILY #1 box 03/12/20 Insulin Glargine [Lantus SoloStar Pen] 50 units SUBCUT QHS #1 box 03/12/20 Insulin Lispro [Humalog KwikPen] 25 unit SUBCUT TIDAC #1 box 03/12/20 Lisinopril [Zestril] 10 mg PO DAILY #30 tab 03/12/20 Metformin HCl 1,000 mg PO BID #60 tab 03/12/20 The following prescriptions were given: Atorvastatin Calcium 20 mg PO QHS #30 tab Transmission Status: Received by [facility] Amox/Clavulanate Tablet [Augmentin Tablet] 875 mg PO Q12H #20 tab Transmission Status: Received by [facility] Insulin Lispro [Humalog KwikPen] 25 unit SUBCUT TIDAC #1 box Transmission Status: Received by [facility] Insulin Glargine [Lantus SoloStar Pen] 50 units SUBCUT QHS #1 box Transmission Status: Received by [facility] Insulin Glargine [Lantus SoloStar Pen] 50 units SUBCUT DAILY #1 box Transmission Status: Received by [facility] Metformin HCl 1,000 mg PO BID #60 tab Transmission Status: Received by [facility] Clopidogrel Bisulfate [Plavix] 75 mg PO DAILY #30 tab Transmission Status: Received by [facility] Lisinopril [Zestril] 10 mg PO DAILY #30 tab Transmission Status: Received by [facility] Primary Care Physician: Floyd Ricketts DO [Primary Care Provider] - Please follow up with your Primary Care Physician in: 1 Week Test Results: Test results from this visit will be discussed in further detail at your follow-up appointment, if applicable. Please Follow Up With: Lamberto Bernal MD - Endocrinology When: 1 Week Please Follow Up With: Fauzia Murillo DPM When: 1 Week Please Follow Up With: Ranjeet Paniagua MD When: 3 weeks Proposed Discharge Date: 03/12/20
[2020-03-12] MEDS: Multivitamins,Therapeutic Tablet 1 TABLET PO (11:47)
[2020-03-12] MEDS: Famotidine 20 MG Tablet PO (11:47)
[2020-03-12] MEDS: Ascorbic Acid 500 MG Tablet PO (11:47)
--- NOTE | 2020-03-12 12:00 | CASEMGMT ---
Addendum entered by Christina Yusuf 03/12/20 12:33: Meds were sent to [facility] but call to [facility] retail pharmacy to have meds transferred to them so Rx assist can be utilized. SW aware, voices understanding. Unique RN LUIS Original Note: This RN CM to room to discuss discharge plan with pt at this time. Pt declines SNF and HHC initially and then after learning may need wound clinic f/u, pt agrees to [facility] at this time. Pt is short with responses and yells at this RN CM when reiterates that pt is agreeable to [facility]. Pt states that his granddaughter is 'undependable for these things' but pt had told wound care nurse that his granddaughter would be the one to do the dressing changes. Pt states he would like [facility] at this time as the [facility] company he had in the past, 'no longer exists.' Call to Odilia at [facility] and she states that they can take pt at this time for SN and this RN CM added for the nurse to assess for PT needs as pt has been angry with therapy and may not allow. Pt states he is aware to walk on heel and states 'I can change my dressing myself, if I need to, I did it for a year another time.' Pt voices no further questions/concerns/needs at this time. Unique OWUSU CM
--- NOTE | 2020-03-12 12:25 | DS.PCM_ITS ---
<Rhea Mobley - Last Filed: 03/12/20 12:40> Discharge Date and Diagnosis Date of Admission: 03/08/20 Date of Discharge: 03/12/20 - Primary Discharge Diagnosis Acute Problems: Active Problems (Last Reviewed 03/10/20 @ 11:[address] Ranjeet Paniagua MD) 1. Acute severe sepsis secondary to right great toe osteomyelitis 2. Significant PAD status post angiogram with stent to right SFA of the proximal popliteal 3. Uncontrolled type 2 diabetes mellitus 4. Pseudohyponatremia 5. Hypothyroidism - Secondary Discharge Diagnosis Chronic Problems: Chronic Problems (Last Reviewed 03/10/20 @ 11:[address] 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 Prior amputation of the second toe. Electronically Signed: Los Kwong, at 14:21 EDT , Service support , Lower Extremity MRI 03/08/20 16:12 IMPRESSION: Osteomyelitis within the distal phalanx of the great toe. Cellulitis. Myofascitis. at 0603 Reported and signed by: Javon Engel MD Electronically Signed: Javon Engel MD at 6:02 EDT Tel , Service support , Consultations 03/08/20 16:12 Consult: Onc/Wound/instrumentation controls engineer Routine Comment: Dr. Murillo- podiatry Dr. Rowland- ID Dr. Paniagua- vascular Operations: - - right hallux amputation Procedures: - - Right lower extremity angiogram with stent to the right SFA of the proximal popliteal Summary of Care Provided: The patient is a 69 year old M admitted 03/08/2020 due to right great toe pain and redness. 1. Acute severe sepsis secondary to right great toe osteomyelitis-status post right hallux amputation. Culture growing strep agalactiae and staph species. Podiatry and ID following. Wound RN consult. Augmentin 875 mg p.o. twice daily for 10 days at discharge per ID recommendations. Follow-up with wound center and podiatry within 1 week. Home with home health at discharge to assist with dressing changes. 2. Significant PAD-per arterial studies. Dr. Paniagua consulted. Underwent right lower extremity angiogram with stent to the right SFA to the proximal popliteal. Continue aspirin, Plavix, statin. Follow-up with Dr. Paniagua in 3 weeks. 3. Uncontrolled type 2 diabetes mellitus-hemoglobin A1c 13.3%. Initiated on insulin which patient was advised to begin prior. Continue Lantus 50 units twice daily. Humalog 25 units 3 times daily with meals. Continue metformin thousand milligrams twice daily. Follow-up with endocrinology, Dr. Bernal in 1 week. 4. Pseudohyponatremia-resolved. 5. Hypothyroidism-continue Synthroid regimen. General: Alert, Oriented x3, Cooperative HEENT: Atraumatic, PERRLA, EOMI, Normocephalic Neck: Supple, No JVD, Negative Carotid Bruits Lungs: Clear to auscultation, Normal air movement Cardiovascular: Regular rate, No murmurs Abdomen: Bowel Sounds Present, Soft, Non Tender, Non-Distended Extremities: No clubbing, No cyanosis, No edema, Capillary Refill Less than 3 Seconds Skin: No rashes, No breakdown, - - Right foot postop dressing intact Musculoskeletal: No Tenderness to Palpation of Joints or Extremities Neurological: Cranial nerves II-XII grossly intact, Neuro grossly intact Psych/Mental Status: Normal Affect, Appropriate Patient seen and examined prior to discharge. Physical assessment as noted above. Patient is stable for discharge with follow up recommendations as noted above. This patient was seen by GLENIS Campos under the supervision of Dr. Sahu. - Physical Exam Vitals/I&O's: Vital Signs Temp Pulse Resp BP Pulse Ox 97.8 F 80 16 124/62 H 92 03/12/20 11:35 03/12/20 11:35 03/12/20 11:35 03/12/20 11:35 03/12/20 11:35 Oxygen Flow Rate (L/min) 2 Oxygen Delivery Method Room Air Weight: 290 lb 5.581 oz Body Mass Index (BMI) 38.2 Intake and Output for Last 24 Hours 03/10/20 03/11/20 03/12/20 23:59 23:59 23:59 Intake Total 2113 / 2563 3918 / 3918 379.25 / 379.25 Output Total 3000 / 4275 4225 / 4225 1775 / 1775 Balance -887 / -1712 -307 / -307 -1395.75 / -1395.75 Microbiology Past 72 Hours 03/09/20 Unknown Wound - Toe Gram Stain - Final 03/09/20 Unknown Wound - Toe Wound Culture - Final Streptococcus agalactiae (B) Staphylococcus lugdunensis 03/09/20 Unknown Wound - Toe Anaerobic Culture - Final No anaerobic bacteria isolated. 03/09/20 Unknown Bone - Toe Gram Stain - Final 03/09/20 Unknown Bone - Toe Wound Culture - Final Streptococcus agalactiae (B) 03/09/20 Unknown Bone - Toe Anaerobic Culture - Final No anaerobic bacteria isolated. 03/08/20 16:48 Wound - Toe Gram Stain - Final 03/08/20 16:48 Wound - Toe Wound Culture - Final Streptococcus agalactiae (B) 03/08/20 16:48 Wound - Toe Anaerobic Culture - Final No anaerobic bacteria isolated. 03/08/20 13:45 Blood Culture (Wb) - Anticubital Right Blood Culture - Preliminary No growth in 48 hours. 03/08/20 13:40 Blood Culture (Wb) - Anticubital Left Blood Culture - Preliminary No growth in 48 hours. Laboratory Results 03/11/20 11:22: POC Glucose 455 H* 03/11/20 11:24: POC Glucose 407 H 03/11/20 17:06: POC Glucose 331 H 03/11/20 22:07: POC Glucose 405 H 03/12/20 05:52: WBC 10.5, RBC 4.15 L, Hgb 12.4 L, Hct 38.7 L, MCV 93.3, MCH 29.9, MCHC 32.0, RDW Std Deviation 45.1 H, RDW Coeff of Nyla 13.2, Plt Count 357, MPV 9.2 03/12/20 05:52: Sodium 137, Potassium 3.9, Chloride 104, Carbon Dioxide 28.0, Anion Gap 5, BUN 17, Creatinine 0.68 L, Estim Creat Clear Calc 78.79, Est GFR (MDRD) Af Amer 149, Est GFR (MDRD) Non-Af 123, BUN/Creatinine Ratio 25.1 H, Glucose 265 H, Calcium 8.8 03/12/20 06:24: POC Glucose 272 H Current Medications Acetaminophen (Tylenol) 650 mg PO Q6H PRN PRN PRN Reason: Pain Score 1-10/Temp > 100.7 F Last Admin: 03/09/20 14:08 Dose: 650 mg Documented by: Al Hydroxide/Mg Hydroxide (Mylanta Ii) 30 ml PO Q6H PRN PRN PRN Reason: Gastric Burning Ascorbic Acid (Vitamin C) 500 mg PO DAILY [facility] Last Admin: 03/12/20 11:47 Dose: 500 mg Documented by: Aspirin (Aspirin, Baby) 81 mg PO DAILY@0800 [facility] Last Admin: 03/12/20 06:31 Dose: 81 mg Documented by: Atorvastatin Calcium (Lipitor) 40 mg PO QHS [facility] Last Admin: 03/11/20 21:59 Dose: 40 mg Documented by: Enoxaparin Sodium (Lovenox) 40 mg SC DAILY [facility] Last Admin: 03/12/20 11:46 Dose: Not Given Documented by: Famotidine (Pepcid) 20 mg PO BID [facility] Last Admin: 03/12/20 11:47 Dose: 20 mg Documented by: Guaifenesin (Robitussin) 20 ml PO Q4H PRN PRN PRN Reason: COUGH Hydralazine HCl (Apresoline Iv) 10 mg IV Q4H PRN PRN PRN Reason: SBP > 160 Hydromorphone HCl (Dilaudid Inj) 0.5 mg IV Q4H PRN PRN PRN Reason: Pain Score 6-10/10 Ampicillin Sodium/Sulbactam (Sodium 3 gm/ Sodium Chloride) 112 mls @ 150 mls/hr IV Q6 [facility] Last Infusion: 03/12/20 06:10 Dose: Infused Documented by: Sodium Chloride () 250 mls @ 15 mls/hr IV .[id number] PRN PRN Reason: Saline Flush Last Infusion: 03/12/20 02:42 Dose: 0 mls/hr Documented by: Sodium Chloride () 250 mls @ 15 mls/hr IV .[id number] PRN PRN Reason: Additional IVPB Infusion Insulin Glargine (Lantus (Bkc)) 50 units SC DAILY [facility] Last Admin: 03/11/20 10:23 Dose: 50 units Documented by: Insulin Glargine (Lantus (Bkc)) 50 units SC QHS [facility] Last Admin: 03/11/20 22:46 Dose: 50 units Documented by: Insulin Human Lispro (Humalog Kwikpen (Bkc)) 0 unit SC ACHS [facility]; Protocol Last Admin: 03/12/20 09:29 Dose: Not Given Documented by: Insulin Human Lispro (Humalog Kwikpen (Bkc)) 25 unit SC TIDAC [facility] Last Admin: 03/12/20 09:29 Dose: Not Given Documented by: Levothyroxine Sodium (Synthroid) 100 mcg PO DAILY@0600 [facility] Last Admin: 03/12/20 06:30 Dose: 100 mcg Documented by: Lisinopril (Zestril) 10 mg PO DAILY [facility] Last Admin: 03/12/20 06:31 Dose: 10 mg Documented by: Magnesium Hydroxide (Milk Of Magnesia) 30 ml PO DAILY PRN PRN PRN Reason: Constipation Multivitamins (Multivitamin) 1 tablet PO DAILY@0800 [facility] Last Admin: 03/12/20 11:47 Dose: 1 tablet Documented by: Nutritional Formula (Robetr - Roane Flavor) 1 packet PO BIDCM [facility] Last Admin: 03/12/20 11:47 Dose: 1 packet Documented by: Ondansetron HCl (Zofran) 4 mg IV Q8H PRN PRN PRN Reason: NAUSEA/VOMITING Oxycodone HCl (Oxyir) 10 mg PO Q4H PRN PRN PRN Reason: Pain Score 4-5/10 Last Admin: 03/12/20 11:45 Dose: 10 mg Documented by: Prochlorperazine Edisylate (Compazine Iv) 5 mg IV Q4H PRN PRN PRN Reason: Breakthrough nausea/vomiting Psyllium Hydrophilic Mucilloid (Metamucil) 1 packet PO DAILY PRN PRN PRN Reason: Constipation Senna/Docusate Sodium (Senokot-S, Maxine-Colace) 2 tablet PO BID PRN PRN PRN Reason: Constipation Sodium Chloride () 10 - 40 ml IV UD PRN PRN Reason: SALINE FLUSH Last Admin: 03/12/20 05:04 Dose: 10 ml Documented by: Temazepam (Restoril) 15 mg PO QHS PRN PRN PRN Reason: INSOMNIA Throat Lozenges (Cepacol Sore Throat Lozenge) 1 lozenge MUCOUS MEM Q2H PRN PRN PRN Reason: SORE THROAT Discharge Diet: Low fat/ Low Cholesterol, Carb Control Diet Discharge Activity: Return to Normal Activity, - - Follow post angiogram instructions. Call your doctor if you observe: Fever of 101 or Higher, Shortness of breath, Dizziness, Fainting spells, Chest pain Home Medications: Medications to take at Discharge Levothyroxine Sodium [Synthroid] 100 mcg PO DAILY 08/21/17 Aspirin [Aspirin, Baby] 81 mg PO DAILY@0800 #30 tab.chew 08/24/17 Multivitamin [Multiple Vitamins] 1 each PO DAILY 09/12/17 Ascorbic Acid [Vitamin C] 500 mg PO DAILY 09/26/17 Amox/Clavulanate Tablet [Augmentin Tablet] 875 mg PO Q12H #20 tab 03/12/20 Atorvastatin Calcium 20 mg PO QHS #30 tab 03/12/20 Clopidogrel Bisulfate [Plavix] 75 mg PO DAILY #30 tab 03/12/20 Insulin Glargine [Lantus SoloStar Pen] 50 units SUBCUT DAILY #1 box 03/12/20 Insulin Glargine [Lantus SoloStar Pen] 50 units SUBCUT QHS #1 box 03/12/20 Insulin Lispro [Humalog KwikPen] 25 unit SUBCUT TIDAC #1 box 03/12/20 Lisinopril [Zestril] 10 mg PO DAILY #30 tab 03/12/20 Metformin HCl 1,000 mg PO BID #60 tab 03/12/20 Pen Needle, Diabetic [Pen Needle] 1 ea SUBCUT ACHS #1 box 03/12/20 Bad tablePrimary Care Physician: Floyd Ricketts DO [Primary Care Provider] - Please follow up with your Primary Care Physician in: 1 Week Please Follow Up With: Lamberto Bernal MD - Endocrinology When: 1 Week Please Follow Up With: Fauzia Murillo DPM When: 1 Week Please Follow Up With: Ranjeet Paniagua MD When: 3 Weeks Disposition: Home with Home Health Minutes spent on discharge:: 35 Patient Condition:: Stable Medical Necessity - Tobacco Use Smoking Status: Former smoker Tobacco Use: Non-smoker Meaningful Use Info Meaningful Use Diagnoses (Choose all that apply): None applicable <Luis AlbertoBrittany - Last Filed: 03/12/20 14:09> Discharge Date and Diagnosis - Secondary Discharge Diagnosis Chronic Problems: Chronic Problems (Last Reviewed 03/10/20 @ 11:[address] 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) Hallux limitus (Chronic) Chronic ulcer of left foot with fat layer exposed (Chronic) Hammertoe of right foot (Chronic) Hammertoe of left foot (Chronic) Delayed wound healing (Chronic) HLD (hyperlipidemia) (Chronic) Obesity (BMI 30-39.9) (Chronic) Uncontrolled type II diabetes mellitus (Chronic) PAD (peripheral artery disease) (Chronic) HTN (hypertension) (Chronic) Hypothyroid (Chronic) Diabetes mellitus (Chronic) Hospital Course and Treatment Consultations 03/08/20 16:12 Consult: Onc/Wound/instrumentation controls engineer Routine Comment: Summary of Care Provided: I agree with the above and the following is a reflection of my own history and physical exam I agree with the above and the following is a reflection of my Independent History and Physical Exam ASSESSMENT Severe Sepsis 2/2 R Great Toe OM -resolved R Great Toe OM 2/2 Strep DM2-uncontrolled Leukocytosis Mild Pseudohyponatremia 2/2 BGT elevation -resolved Hypothyroidism PVD HTN Anemia PLAN -S/P R Great toe amputation -Oral Augmentin at d/c per ID-->will need 10 more days of treatment -script written and faxed -f/u at wound center/podiatry in 1 week -RLE angiogram done and stent to SFA -Plavix, ASA and statin -f/u with Dr Paniagua in 3 weeks -continue Lantus to 50 u BID and log to 25 TIDAC for better BGT control -A1c is 13.3 at home with Actos/Metformin/Sitagliptin/Invokana -pt states that he was to be on insulin but was unable to afford it -never signed up for anything but Medicare part A and has no prescription coverage (all that he was on was from prior to him loosing his job) -working on getting assistance and signing up for Medicare B and D -Pt NEED INSULIN for home and Endo f/u (may need U 500 insulin) -BP are overall better with addition of Lisinopril -monitor and titrate as needed -will need f/u with PCP to monitor -Pt has agreed to Home Health at D/C >31'spent on discharge coordination and planning Subjective: Pt states that he is ready to go home. Discussed importance of f/u and lara roland with an glass maker. Case Mgt working on getting prescription assistance and Medicare B and D for the pt. - Physical Exam Vitals/I&O's: Vital Signs Temp Pulse Resp BP Pulse Ox 97.1 F L 98 18 149/73 H 93 03/12/20 12:30 03/12/20 12:30 03/12/20 12:30 03/12/20 12:30 03/12/20 12:30 Oxygen Flow Rate (L/min) 2 Oxygen Delivery Method Nasal Cannula Weight: 131.7 kg Body Mass Index (BMI) 38.2 Intake and Output for Last 24 Hours 03/10/20 03/11/20 03/12/20 23:59 23:59 23:59 Intake Total 2113 / 2563 3918 / 3918 859.25 / 859.25 Output Total 3000 / 4275 4225 / 4225 1999 Balance -887 / -1712 -307 / -307 -1140.75 / -1140.75 General: Alert, Oriented x3, Cooperative, No apparent distress, Well developed, Well nourished, - - Obese WM sitting in a chair watching TV, Becomes somewhat argume HEENT: Atraumatic, PERRLA, EOMI, Normocephalic, EAC Clear Oral: Moist Mucosa, No Gingival or Mucosal Lesions/ Ulcerations, - - dentition Neck: Supple, No JVD, No Nodes, No Nuchal Rigidity, Trachea Midline, Thyroid Normal Size and Texture Lungs: Clear to auscultation, Normal air movement, No rhonchi, No wheeze, - - distant 2/2 body habitus Cardiovascular: Regular rate, Regular Rhythm, Normal S1, Normal S2, No murmurs, No Ectopic Activity, No rub noted, No Gallop Abdomen: Bowel Sounds Present, Soft, Non Tender, Non-Distended, Obese Extremities: No clubbing, No cyanosis, No edema, Capillary Refill Less than 3 Seconds, Diminished Peripheral Pulses, - - R LE foot with dressing to wound Musculoskeletal: No Tenderness to Palpation of Joints or Extremities, No Muscle Wasting, Arthritic Changes Lymphatic: No Cervical, Supraclavicular, or Inguinal Adenopathy Neurological: Cranial nerves II-XII grossly intact, Neuro grossly intact Psych/Mental Status: Normal Affect, Appropriate, Alert and oriented to time, place, person, mood and affect Microbiology Past 72 Hours 03/09/20 Unknown Wound - Toe Gram Stain - Final 03/09/20 Unknown Wound - Toe Wound Culture - Final Streptococcus agalactiae (B) Staphylococcus lugdunensis 03/09/20 Unknown Wound - Toe Anaerobic Culture - Final No anaerobic bacteria isolated. 03/09/20 Unknown Bone - Toe Gram Stain - Final 03/09/20 Unknown Bone - Toe Wound Culture - Final Streptococcus agalactiae (B) 03/09/20 Unknown Bone - Toe Anaerobic Culture - Final No anaerobic bacteria isolated. 03/08/20 16:48 Wound - Toe Gram Stain - Final 03/08/20 16:48 Wound - Toe Wound Culture - Final Streptococcus agalactiae (B) 03/08/20 16:48 Wound - Toe Anaerobic Culture - Final No anaerobic bacteria isolated. 03/08/20 13:45 Blood Culture (Wb) - Anticubital Right Blood Culture - Preliminary No growth in 48 hours. 03/08/20 13:40 Blood Culture (Wb) - Anticubital Left Blood Culture - Preliminary No growth in 48 hours. Laboratory Results 03/11/20 11:22: POC Glucose 455 H* 03/11/20 11:24: POC Glucose 407 H 03/11/20 17:06: POC Glucose 331 H 03/11/20 22:07: POC Glucose 405 H 03/12/20 05:52: WBC 10.5, RBC 4.15 L, Hgb 12.4 L, Hct 38.7 L, MCV 93.3, MCH 29.9, MCHC 32.0, RDW Std Deviation 45.1 H, RDW Coeff of Nyla 13.2, Plt Count 357, MPV 9.2 03/12/20 05:52: Sodium 137, Potassium 3.9, Chloride 104, Carbon Dioxide 28.0, Anion Gap 5, BUN 17, Creatinine 0.68 L, Estim Creat Clear Calc 78.79, Est GFR (MDRD) Af Amer 149, Est GFR (MDRD) Non-Af 123, BUN/Creatinine Ratio 25.1 H, Glucose 265 H, Calcium 8.8 03/12/20 06:24: POC Glucose 272 H 03/12/20 12:36: POC Glucose 401 H Current Medications Acetaminophen (Tylenol) 650 mg PO Q6H PRN PRN PRN Reason: Pain Score 1-10/Temp > 100.7 F Last Admin: 03/09/20 14:08 Dose: 650 mg Documented by: Al Hydroxide/Mg Hydroxide (Mylanta Ii) 30 ml PO Q6H PRN PRN PRN Reason: Gastric Burning Ascorbic Acid (Vitamin C) 500 mg PO DAILY [facility] Last Admin: 03/12/20 11:47 Dose: 500 mg Documented by: Aspirin (Aspirin, Baby) 81 mg PO DAILY@0800 [facility] Last Admin: 03/12/20 06:31 Dose: 81 mg Documented by: Atorvastatin Calcium (Lipitor) 40 mg PO QHS [facility] Last Admin: 03/11/20 21:59 Dose: 40 mg Documented by: Enoxaparin Sodium (Lovenox) 40 mg SC DAILY [facility] Last Admin: 03/12/20 11:46 Dose: Not Given Documented by: Famotidine (Pepcid) 20 mg PO BID [facility] Last Admin: 03/12/20 11:47 Dose: 20 mg Documented by: Guaifenesin (Robitussin) 20 ml PO Q4H PRN PRN PRN Reason: COUGH Hydralazine HCl (Apresoline Iv) 10 mg IV Q4H PRN PRN PRN Reason: SBP > 160 Hydromorphone HCl (Dilaudid Inj) 0.5 mg IV Q4H PRN PRN PRN Reason: Pain Score 6-10/10 Ampicillin Sodium/Sulbactam (Sodium 3 gm/ Sodium Chloride) 112 mls @ 150 mls/hr IV Q6 [facility] Last Admin: 03/12/20 12:45 Dose: 150 mls/hr Documented by: Sodium Chloride () 250 mls @ 15 mls/hr IV .[id number] PRN PRN Reason: Saline Flush Last Infusion: 03/12/20 02:42 Dose: 0 mls/hr Documented by: Sodium Chloride () 250 mls @ 15 mls/hr IV .[id number] PRN PRN Reason: Additional IVPB Infusion Insulin Glargine (Lantus (Bkc)) 50 units SC DAILY [facility] Last Admin: 03/12/20 12:38 Dose: 50 units Documented by: Insulin Glargine (Lantus (Bkc)) 50 units SC QHS [facility] Last Admin: 03/11/20 22:46 Dose: 50 units Documented by: Insulin Human Lispro (Humalog Kwikpen (Bkc)) 0 unit SC ACHS [facility]; Protocol Last Admin: 03/12/20 12:44 Dose: 14 units Documented by: Insulin Human Lispro (Humalog Kwikpen (Bkc)) 25 unit SC TIDAC [facility] Last Admin: 03/12/20 12:44 Dose: 25 units Documented by: Levothyroxine Sodium (Synthroid) 100 mcg PO DAILY@0600 [facility] Last Admin: 03/12/20 06:30 Dose: 100 mcg Documented by: Lisinopril (Zestril) 10 mg PO DAILY [facility] Last Admin: 03/12/20 06:31 Dose: 10 mg Documented by: Magnesium Hydroxide (Milk Of Magnesia) 30 ml PO DAILY PRN PRN PRN Reason: Constipation Multivitamins (Multivitamin) 1 tablet PO DAILY@0800 [facility] Last Admin: 03/12/20 11:47 Dose: 1 tablet Documented by: Nutritional Formula (Robert - Roane Flavor) 1 packet PO BIDCM [facility] Last Admin: 03/12/20 11:47 Dose: 1 packet Documented by: Ondansetron HCl (Zofran) 4 mg IV Q8H PRN PRN PRN Reason: NAUSEA/VOMITING Oxycodone HCl (Oxyir) 10 mg PO Q4H PRN PRN PRN Reason: Pain Score 4-5/10 Last Admin: 03/12/20 11:45 Dose: 10 mg Documented by: Prochlorperazine Edisylate (Compazine Iv) 5 mg IV Q4H PRN PRN PRN Reason: Breakthrough nausea/vomiting Psyllium Hydrophilic Mucilloid (Metamucil) 1 packet PO DAILY PRN PRN PRN Reason: Constipation Senna/Docusate Sodium (Senokot-S, Maxine-Colace) 2 tablet PO BID PRN PRN PRN Reason: Constipation Sodium Chloride () 10 - 40 ml IV UD PRN PRN Reason: SALINE FLUSH Last Admin: 03/12/20 12:46 Dose: 10 ml Documented by: Temazepam (Restoril) 15 mg PO QHS PRN PRN PRN Reason: INSOMNIA Throat Lozenges (Cepacol Sore Throat Lozenge) 1 lozenge MUCOUS MEM Q2H PRN PRN PRN Reason: SORE THROAT Meaningful Use Info Meaningful Use Diagnoses (Choose all that apply): None applicable Inpatient E&M: 38589 [facility]
--- NOTE | 2020-03-12 12:34 | CASEMGMT ---
SW completed prescription assistance form for patient as he no longer has prescription coverage. KRISTAL tubed form to [facility] retail pharmacy. Patient was given information on prescription assistance after d/c already. SW also completed a Medicaid application with patient and faxed to [employer]. Taylor MARIE
[2020-03-12] MEDS: Insulin Lispro 100 UNIT/ML INSULN.PEN 25 UNIT SC (12:44)
[2020-03-12] MEDS: Insulin Lispro 100 UNIT/ML INSULN.PEN SC (12:44)
[2020-03-12 12:46] LABS: Bedside Glucose 401 mg/dL (70-110)
--- NOTE | 2020-03-15 14:26 | CASEMGMT ---
FRANCOISE CM DC PHONE CALL DC DATE: 03/12/20 DC DISPOSITION: Home with medication assist through [facility] DC DIAGNOSIS: Sepsis, R toe osteomyelitis LACE/STRATA: 06/17 F/U APPTS MADE PRIOR TO DC: yes PRESCRIPTIONS ACQUIRED BY PT: yes Attempted call to phone. Could not ascertain if name given on messaging as there is significant background noise. Linda LONGN RN ACM
== END 2020-03-12 16:30 | disposition home health service (06) | DRG 854 ==
LOC: ED 13:26 → PCU 15:17
PROVIDERS: Internal Medicine; Physician Assistant; Podiatrist Foot & Ankle Surgery; Admitting Provider Family Medicine; Emergency Provider Emergency Medicine; PCP Family Medicine; Visit Provider Internal Medicine
PROC: 0Y6P0Z0 Detachment at Right 1st Toe, Complete, Open Approach (ICD-10-PCS; principal; 2020-03-09 08:15)
DX: A40.9 Streptococcal sepsis, unspecified (principal); E11.69 Type 2 diabetes mellitus with other specified complication; M86.171 Other acute osteomyelitis, right ankle and foot; L03.115 Cellulitis of right lower limb; E11.621 Type 2 diabetes mellitus with foot ulcer; L97.514 Non-pressure chronic ulcer of other part of right foot with necrosis of bone; E11.52 Type 2 diabetes mellitus with diabetic peripheral angiopathy with gangrene; I96 Gangrene, not elsewhere classified; E87.2 Acidosis; R65.20 Severe sepsis without septic shock; J44.9 Chronic obstructive pulmonary disease, unspecified; E11.42 Type 2 diabetes mellitus with diabetic polyneuropathy; E11.65 Type 2 diabetes mellitus with hyperglycemia; I10 Essential (primary) hypertension; E03.9 Hypothyroidism, unspecified; E78.5 Hyperlipidemia, unspecified; E66.01 Morbid (severe) obesity due to excess calories; Z68.38 Body mass index [BMI] 38.0-38.9, adult; Z79.84 Long term (current) use of oral hypoglycemic drugs; Z79.02 Long term (current) use of antithrombotics/antiplatelets; Z79.82 Long term (current) use of aspirin; Z79.890 Hormone replacement therapy; Z87.891 Personal history of nicotine dependence; Z89.421 Acquired absence of other right toe(s)
CPT/HCPCS: 36245; 36415; 37226; 73630; 73720; 75710; 76937; 80048; 80053; 80061; 82947; 82962; 83036; 83605; 83735; 84439; 84443; 84481; 85025; 85027; 85610; 85652; 85730; 86140; 87015; 87040; 87070; 87075; 87077; 87102; 87116; 87186; 87205; 87206; 87635; 87640; 88304; 88305; 88311; 93005; 93922; 94799; 97110; 97162; 97166; 97802; 99152; 99153; 99251; 99285; A9575; J7040; J7050; Q9967; A4216; C1725; C1760; C1769; C1876; C1887; C1894; G0463; J0295; J2405; U0003

== ENCOUNTER 2020-04-06 11:16 | Emergency (ER) | payer OTHER, MEDICARE, SELFPAY ==
[2020-03-18 15:14] VITALS: BMI 38.2
[2020-04-06 11:16] VITALS: BP 176/82; PULSE 84; RESP 17; TEMP 36.2; O2SAT 97; BMI 36.9
--- NOTE | 2020-04-06 12:03 | ED.VIS.GEN ---
History of Present Illness Chief Complaint: Laceration Informant: Patient Narrative: Patient states that last night he somehow injured the heel of his right foot. He does not recall how. It actually occurred at 3:00 yesterday afternoon. That is actually about when he noticed it. States he put some ointment on it and covered it. He recently had his great toe amputated but cannot tell me who. He does not know who he supposed to follow-up with. He is a diabetic. Patient states how hard can it be for you to go look this information up in the computer. I informed him that as he sees doctors that are not part of [facility] I do not have access to all medical records. And it would be really important for his health and for continuity of care that he keep basic things like who his surgeon and doctors are as well as a list of medicines with him. - Past Medical History (1) Cellulitis of right foot Status: Chronic (2) Diabetes mellitus Status: Chronic (3) Gangrene of toe of right foot Status: Chronic (4) HLD (hyperlipidemia) Status: Chronic (5) HTN (hypertension) Status: Chronic (6) Obesity (BMI 30-39.9) Status: Chronic (7) Osteomyelitis Status: Chronic Past Medical History - Allergies and Home Meds Allergies/Adverse Reactions: Allergies No Known Allergies Allergy (Verified 04/06/20 11:16) Primary Care Physician: Clinic,Wound [None] - Surgical History: tonsillectomy, - - Right second toe amputation. Smoking Status: Former smoker - Family History Maternal Family History: Family History (Last Reviewed 03/18/20 @ 15:[address] Lamberto Bernal MD) Father Diabetes Heart disease Hypertension Family History: Reports: - - Patient denies any market maternal family history including heart disease, diabetes, cancer and denies any history of her having taken any medications. Paternal Family History: Family History (Last Reviewed 03/18/20 @ 15:[address] Lamberto Bernal MD) Father Diabetes Heart disease Hypertension Family History: Reports: Diabetes, Heart Disease, Hypertension Review of Systems General: Denies: Chills, Fever, Sweats Eyes: Denies: Visual changes - bilaterally, Diplopia ENT: Denies: Rhinorrhea, Sore throat Cardiovascular: Denies: Chest pain, Palpitations Respiratory: Denies: Dyspnea, Cough, Dyspnea on exertion Gastrointestinal: Denies: Abdominal pain, Nausea, Vomiting, Diarrhea, Melena, Hematochezia Genitourinary: Denies: Dysuria, Hematuria, Frequency Musculoskeletal: Denies: Back pain, Extremity Pain Skin: Reports: Wounds. Denies: Rash Neurological: Denies: Headache, Weakness, Numbness Physical Exam Vital Signs/Narrative: Vital Signs Temp Pulse Resp BP Pulse Ox 04/06/20 11:16 97.2 F L 84 17 176/82 H 97 Inital Vital Signs reviewed: Yes General: Well nourished, Well developed, No Acute Distress Head: Normocephalic, Atraumatic Eyes: Perrl, EOMI ENT: Moist mucous membranes, No rhinorrhea Neck: Supple, Nontender Cardiovascular: Regular rate, Regular rhythm, No murmurs Respiratory: No distress, CTA bilaterally, Chest nontender Abdomen: Soft, Nontender, Nondistended, Normal bowel sounds Back: Nontender, Normal Inspection Extremities: - - There is some white skin to the right posterior heel there is a fissure in the skin of approximately 2 cm in length. No evidence of infection. There is recent surgical site involving the great toe. This appears clean dry and intact Skin: Normal color, No rash Neurological: Alert, Oriented x3, Cranial nerves II-XII grossly intact, Normal Strength, Normal Sensation Psychological: Normal affect, Normal Mood Diagnostic/Tx/Re-eval - Medical Decision Making There does not appear to be anything to suture. Would recommend local wound care. Is the skin is white and appears very moist I recommend he try to dry this. I will place him on antibiotics and have him follow-up with wound center. ED Disposition - Plan for ED Patient: Disposition: Home or Assisted Living Diagnosis: Wound, open, foot Instructions: ED AVULSION LACERATION Prescriptions: Cephalexin [Keflex] 500 mg PO Q6 #28 cap Prescription Printed Referrals: Clinic,Wound [None] - Additional Instructions: Your wound appears very wet. I recommend avoiding topical antibiotic and try to keep the wound dry. you should be follow up at the wound center.
== END 2020-04-06 12:37 | disposition home or self-care (01) ==
PROVIDERS: Emergency Provider Emergency Medicine; PCP Family Medicine
DX: S91.301A Unspecified open wound, right foot, initial encounter (principal); X58.XXXA Exposure to other specified factors, initial encounter; Y93.9 Activity, unspecified; Y92.9 Unspecified place or not applicable; Y99.9 Unspecified external cause status; E11.9 Type 2 diabetes mellitus without complications; I10 Essential (primary) hypertension; E78.5 Hyperlipidemia, unspecified; E66.9 Obesity, unspecified; Z79.02 Long term (current) use of antithrombotics/antiplatelets; Z79.82 Long term (current) use of aspirin; Z79.4 Long term (current) use of insulin; Z79.899 Other long term (current) drug therapy; Z87.891 Personal history of nicotine dependence
CPT/HCPCS: 99282

== ENCOUNTER 2020-06-12 16:56 | Inpatient (IN) | payer MEDICARE, SELFPAY ==
[2020-05-25 08:31] VITALS: BMI 40.0
[2020-06-12 16:57] VITALS: BP 161/93; PULSE 87; RESP 20; TEMP 36.6; O2SAT 98; BMI 36.9
[2020-06-12 17:16] LABS: Bacteria 0 SEEN /hpf (None Seen); Mucous, Urine 0 SEEN /hpf (<or=2+); White Blood Cells 0 SEEN /hpf (0-5)
[2020-06-12 17:18] LABS: Color, Urine Red (Yellow); Glucose, Dipstick Normal (Normal); Ketone-Dipstick 15 mg/dl (Negative); Leukocyte Esterase-Dipstick Negative /ul (Negative); Nitrite-Dipstick Negative (Negative); Occult Blood-Urine 250 /ul (Negative); Protein-Dipstick 500 mg/dl (Negative); Urine Bilirubin Dipstick Negative (Negative); Urine Clarity Turbid (Clear); Urine Urobilinogen Normal (Normal); Urine pH 6.5 (5.0 - 8.0)
--- NOTE | 2020-06-12 17:21 | ED.DCSUM_ITS ---
- ER Visit Summary Date of Service: 06/12/20 Chief Complaint: Hematuria History of Present Illness: The patient is a [address] Ricketts. Who reports that he has hematuria that began approximately a week ago. States that he has been passing clots. He had a period where he was unable to urinate. H owever, he reports that he now feels like he is emptying his bladder fully. Patient is not on anticoagulants. Does report he has easy bruising. He denies any fever, chills, abdominal pain, flank pain, nausea, vomiting, or other complaints. Physical Examination: Vitals: Stable. Afebrile. General: Well-nourished and well-developed. Head: Normocephalic atraumatic. Neck: Supple, no lymphadenopathy. No JVD. Nontender. Cardiovascular: Regular rate and rhythm. No murmurs. Respiratory: No respiratory distress. Clear to auscultation bilaterally. Abdominal: Soft, nontender, nondistended, normal bowel sounds. No guarding, rebound, or peritoneal signs. Back: Nontender. Extremities: Nontender, no edema. Skin: Normal color, no rash. Neurologic: Alert and oriented ?3. Cranial nerves II through XII are intact. Normal strength and sensation. Psych: Normal affect. Test Results: CBC shows a white count of 13.1 with monocytes of 12. Hemoglobin is normal. Chem-7 shows a chloride of 109 and glucose 107. INR is 1.1. PTT is 36.2. UA shows greater than 100 red blood cells, but no white blood cells. INR is 1.1. PTT is 36.2. Clinical Impression(s) from Imaging Studies Abdomen/Pelvis CT 06/12/20 17:31 IMPRESSION: 1. Urinary bladder hematoma/blood product. Mild left hydronephrosis. No urinary tract calcifications are seen. Although this could represent a recently passed calculus, urinary tract/bladder neoplasm should be considered. Electronically Signed: Domingo Cook MD (Brooks) at 17:51 EST , Service support , Emergency Department Course and Treatment: Patient had a bladder scan after urinating that is 107. His urine is very bloody. However, he is refused a Butler catheter. Ultimately the patient did agree to a Butler catheter. A three- way was placed in his bladder was initially irrigated manually with return of clots. This was manually irrigated and as much clot as we could get out was obtained. He was placed on continuous irrigation following this. His urine remains cranberry in color and is intermittently not draining. Treatment Plan: Patient was discussed with Dr. Mims who asked that I have the hospitalist admit him. He would be happy to see him in consult. Disposition: Admitted in improved condition. Impression: 1. Hematuria. This note was generated with [employer] dictation software. It may contain incorrect words, spelling, and punctuation that were not noted in review of the chart prior to signing ED Disposition - Plan for ED Patient: Referrals: Floyd Ricketts DO [Primary Care Provider] -
[2020-06-12 17:24] LABS: Amorphous Sediment 1+ URATE; Red Blood Cells-Urine > 100 SEEN /hpf (0-5); Squamous Epithelial Cells - UA 0-5 SEEN /hpf (0-5)
--- NOTE | 2020-06-12 17:31 | CT_ITS ---
STUDY: CT ABDOMEN AND PELVIS WITHOUT CONTRAST REASON FOR EXAM: Male, 70 years old. HEMATURIA. PAIN AND BURNING WHILE URINATING RADIATION DOSAGE (If Supplied By Facility): CTDIvol = ( 23.07 ) mGy, DLP = ( 1383.64 ) mGycm TECHNIQUE: Transaxial images were obtained from the dome of the diaphragm to the symphysis pubis without oral contrast, and without intravenous contrast. Sagittal and coronal images were reconstructed. Individualized dose optimization techniques were used for this CT. COMPARISON: None. FINDINGS: The visualized lung bases are unremarkable. The visualized portions of the heart are within normal limits. There is decreased attenuation of the liver consistent with steatosis. Normal gallbladder and extrahepatic biliary system. Normal spleen. Normal pancreas. Normal bilateral adrenal glands. Normal right kidney. Mild left hydronephrosis and hydroureter. Rounded hypodensity within the dependent portion the urinary bladder measures approximately 6.9 x 7.1 cm, likely representing hematoma/blood product. No urinary tract calcifications are seen. Normal visualized stomach. Normal small intestine. There are multiple colonic diverticula consistent with diverticulosis. There is non-visualization of the appendix. There is diffuse atherosclerotic calcification of the abdominal aorta, without a demonstrated aneurysm. Normal inferior vena cava. Normal retroperitoneum. No bladder wall thickening is seen. There is a small umbilical hernia containing fat. There are diffuse degenerative changes of the visualized lumbar spine. CT/Abdomen/Pelvis without Cont IMPRESSION: 1. Urinary bladder hematoma/blood product. Mild left hydronephrosis. No urinary tract calcifications are seen. Although this could represent a recently passed calculus, urinary tract/bladder neoplasm should be considered. Electronically Signed: Domingo Cook MD (Brooks) at 17:51 EST , Service support ,
[2020-06-12 17:52] LABS: Absolute Lymphocyte Count 2.86 X10^3/uL (0.83-4.51); Absolute Neutrophil Count 8.6 X10^3/uL (2.0-7.7); Basophil# 0.04 X10^3/uL; Basophil% 0.3 % (0-1); Eosinophil# 0.09 X10^3/uL; Eosinophils% 0.7 % (0-5); Hematocrit 43.2 % (40-54); Hemoglobin 13.5 g/dL (13.0-16.5); Lymphocyte # 2.86 X10^3/ul (4.0); Lymphocyte % 21.8 % (19-41); Mean Corp Hgb Conc 31.3 g/dL (32-36); Mean Corpuscular Hgb 27.7 pg (27.0-32.0); Mean Corpuscular Volume 88.5 fL (80-94); Mean Platelet Vol. 9.4 fl (6.2-12.0); Monocyte# 1.54 X10^3/uL; Monocyte% 11.7 % (0-10); NRBC Flagged by Analyzer 0 % (0-5); Neutrophil # 8.55 X10^3/uL (2.7-7.7); Neutrophil % 65.1 % (47-70); POSITIVE DIFFERENTIAL YES; Platelet Count 378 K/mm3 (150-450); RBC Distribution Width CV 14.1 % (11.6-14.6); Red Blood Count 4.88 M/mm3 (4.6-6.2); White Blood Count 13.1 K/mm3 (4.4-11.0)
[2020-06-12 18:00] LABS: Anion Gap 8 (5-15); BUN 18 mg/dL (7-18); BUN/Creat Ratio 20.9 RATIO (10-20); Calcium,Total 9.6 mg/dL (8.5-10.1); Chloride 109 mmol/L (98-107); Creatinine, Serum 0.86 mg/dL (0.70-1.30); EST Glomerular Filtration Rate 93 mL/min (>60); Est Glom Filt Rate - Afr Amer 113 mL/min (>60); Estimated Creatinine Clearance 90.33 ml/min; Glucose 107 mg/dL (74-106); Potassium 3.9 mmol/L (3.5-5.1); Sodium Level 143 mmol/L (136-145)
[2020-06-12 18:10] LABS: Differential Indicated SCAN CRITERIA MET
[2020-06-12 18:25] LABS: International Normalized Ratio 1.1; Partial Thromboplast Time 36.2 Seconds (24.1-36.2); Prothrombin Time (Protime)PT. 13.6 SECONDS (11.7-14.9)
[2020-06-12 19:19] LABS: Differential Comment SCANNED; Platelet Estimate ADEQUATE (ADEQ); Red Cell Morphology NORM C+C NORMAL (NORM C&C)
[2020-06-12 19:24] VITALS: BP 187/82; PULSE 74; RESP 17; O2SAT 97
[2020-06-12] MEDS: Ondansetron 4 MG/2 ML Vial IV (19:40)
[2020-06-12] MEDS: Morphine 4 MG/ML Syringe IV (19:41)
[2020-06-12 20:32] VITALS: BP 172/112; PULSE 86; RESP 18; TEMP 36.6; O2SAT 94
--- NOTE | 2020-06-12 21:25 | HP.PCM_ITS ---
Problem List (1) Gross hematuria Status: Acute (2) Hypothyroidism (acquired) Status: Chronic (3) Ulcer of right foot with fat layer exposed Status: Chronic (4) Ulcer of right foot with necrosis of muscle Status: Chronic (5) Osteomyelitis Status: Chronic Qualifiers: Osteomyelitis type: other acute Osteomyelitis location: foot Laterality: right Qualified Code(s): M86.171 - Other acute osteomyelitis, right ankle and foot (6) Type 2 diabetes mellitus with diabetic polyneuropathy Status: Chronic Qualifiers: Diabetes mellitus long-term insulin use: with termination clerk use Qualified Code(s): E11.42 - Type 2 diabetes mellitus with diabetic polyneuropathy; Z79.4 - detention (current) use of insulin (7) Gangrene of toe of right foot Status: Chronic (8) Hallux limitus Status: Chronic Qualifiers: (9) Chronic ulcer of left foot with fat layer exposed Status: Chronic (10) Hammertoe of right foot Status: Chronic (11) Hammertoe of left foot Status: Chronic (12) Delayed wound healing Status: Chronic (13) Cellulitis of right foot Status: Chronic (14) HLD (hyperlipidemia) Status: Chronic Qualifiers: Hyperlipidemia type: unspecified Qualified Code(s): E78.5 - Hyperlipidemia, unspecified (15) Obesity (BMI 30-39.9) Status: Chronic (16) Uncontrolled type II diabetes mellitus Status: Chronic Qualifiers: Glycemic state: with hyperglycemia Qualified Code(s): E11.65 - Type 2 diabetes mellitus with hyperglycemia (17) PAD (peripheral artery disease) Status: Chronic (18) S/P tonsillectomy Status: Acute (19) S/P colonoscopy Status: Chronic (20) HTN (hypertension) Status: Chronic Qualifiers: Hypertension type: unspecified Qualified Code(s): I10 - Essential (primary) hypertension (21) Hypothyroid Status: Chronic Qualifiers: Hypothyroidism type: unspecified Qualified Code(s): E03.9 - Hypothyroidism, unspecified (22) Diabetes mellitus Status: Chronic Qualifiers: Diabetes mellitus type: type 2 History of Present Illness Date of Admission: 06/12/20 Chief Complaint: hematuria The patient is a 70 year old M with a significant for diabetes mellitus; hypertension; hypothyroidism; PAD status post stents; and osteomyelitis who pr esents emergency department with gross hematuria. His symptom has been going on for about a week. Patient denies increasing urinary frequency and dysuria. At emergency department his bladder was manually irrigated and then continuous bladder irrigation was started. Emergent department doctor discussed the case with Dr. Mims who is willing to follow on consult. Past Medical History Past Medical History (Chronic Problems): Chronic Problems (Last Reviewed 06/12/20 @ 21:[address] Phillip Kaufman MD) Hypothyroidism (acquired) (Chronic) Ulcer of right foot with fat layer exposed (Chronic) Ulcer of right foot with necrosis of muscle (Chronic) Osteomyelitis (Chronic) Type 2 diabetes mellitus with diabetic polyneuropathy (Chronic) Gangrene of toe of right foot (Chronic) Hallux limitus (Chronic) Chronic ulcer of left foot with fat layer exposed (Chronic) Hammertoe of right foot (Chronic) Hammertoe of left foot (Chronic) Delayed wound healing (Chronic) Cellulitis of right foot (Chronic) HLD (hyperlipidemia) (Chronic) Obesity (BMI 30-39.9) (Chronic) Uncontrolled type II diabetes mellitus (Chronic) PAD (peripheral artery disease) (Chronic) S/P colonoscopy (Chronic) HTN (hypertension) (Chronic) Hypothyroid (Chronic) Diabetes mellitus (Chronic) Medical History: Medical History (Last Reviewed 06/12/20 @ 22:[address] Phillip Kaufman MD) PAD (peripheral artery disease) (Chronic) I73.9 HTN (hypertension) (Chronic) I10 Hypothyroid (Chronic) E03.9 Diabetes mellitus (Chronic) E11.9 Allergies No Known Allergies Allergy (Verified 06/12/20 16:59) Home Medications: Ambulatory Orders Medication Instructions Recorded Aspirin [Aspirin, Baby] 81 mg PO DAILY@0800 #30 tab.chew 08/24/17 Multivitamin [Multiple Vitamins] 1 each PO DAILY 09/12/17 Ascorbic Acid [Vitamin C] 500 mg PO DAILY 09/26/17 Amox/Clavulanate Tablet [Augmentin 875 mg PO Q12H #20 tab 03/12/20 Tablet] Atorvastatin Calcium 20 mg PO QHS #30 tab 03/12/20 Clopidogrel Bisulfate [Plavix] 75 mg PO DAILY #30 tab 03/12/20 Lisinopril [Zestril] 10 mg PO DAILY #30 tab 03/12/20 Metformin HCl 1,000 mg PO BID #60 tab 03/12/20 Pen Needle, Diabetic [Pen Needle] 1 ea SUBCUT ACHS #1 box 03/12/20 blood sugar diagnostic See Rx Instructions .ROUTE 03/18/20 .MEDSUPPLY #100 ea insulin glargine 100 unit/mL (3 50 unit SUBCUT QHS #15 ml 03/31/20 mL) subcutaneous pen levothyroxine 125 mcg tablet 125 mcg PO DAILY #90 tab 05/25/20 Insulin Aspart [Novolog Flexpen 35 units SC TIDCM 06/12/20 ([facility])] Potassium 99 mg PO BID 06/12/20 Surgical History: Surgical History (Last Reviewed 06/12/20 @ 22:[address] Phillip Kaufman MD) S/P tonsillectomy (Acute) Z90.89 S/P colonoscopy (Chronic) Z98.890 Surgical History: tonsillectomy, - - Right second toe amputation. Psychiatric History: No pertinent psych hx Smoking Status: Never smoker Tobacco Use: Non-smoker - *Family History Maternal Family History: Family History (Last Reviewed 06/12/20 @ 22:[address] Phillip Kaufman MD) Father Diabetes Heart disease Hypertension History Items: - - Patient denies any market maternal family history including heart disease, diabetes, cancer and denies any history of her having taken any medications. Paternal Family History: Family History (Last Reviewed 06/12/20 @ 22:[address] Phillip Kaufman MD) Father Diabetes Heart disease Hypertension History Items: Diabetes, Heart Disease, Hypertension Review of Systems Constitutional: Denies: Chills, Fever, Weight Change HEENT: Denies: Head Aches, Sinus Congestion, Sinus Drainage Cardiovascular: Denies: Chest Pain, Palpitations Respiratory: Denies: Cough, Shortness of breath at rest, Sputum production Gastrointestinal: Denies: Abdominal Pain, Nausea, Vomiting Genitourinary: Reports: Hematuria. Denies: Dysuria Musculoskeletal: Denies: Joint Pain, Joint Tenderness Skin: Reports: Skin Changes - Redness around Amputated first and second toe of the right foot.. Denies: Rash, Wounds Neurological: Denies: Numbness, Tingling, Focal weakness Psychiatric: Denies: Anxiety, Depression, Homicidal Ideations, Suicidal Ideations Hematologic/ Lymphatic: Denies: Easy Bruising, Easy Bleeding VTE Information - Inpt Only VTE Present on Admission: No VTE Mechan Device Prophylaxis: SCD's VTE Pharm Prophylaxis ordered?: No Patient Problems: Active and Suspected Problems (Last Reviewed 06/12/20 @ 21:[address] Phillip Kaufman MD) Gross hematuria (Acute) S/P tonsillectomy (Acute) - Physical Exam Vitals/I&O's: Vital Signs Temp Pulse Resp BP Pulse Ox 98 F 86 18 172/112 H 94 06/12/20 20:32 06/12/20 20:32 06/12/20 20:32 06/12/20 20:32 06/12/20 20:32 Oxygen Delivery Method Room Air Weight: 127.006 kg Body Mass Index (BMI) 36.9 Intake and Output for Last 24 Hours 06/10/20 06/11/20 06/12/20 23:59 23:59 23:59 Intake Total 500 / 500 Output Total 2800 / 2800 Balance -2300 / -2300 General: Alert, Oriented x3, Cooperative HEENT: Atraumatic, PERRLA, EOMI, Normocephalic Neck: Supple, No JVD, Negative Carotid Bruits Lungs: Clear to auscultation, Normal air movement, No rhonchi, No wheeze, No rales, - - Acute Butler catheter with bloody drainage around urethral meatus Cardiovascular: Regular rate, Normal S1, Normal S2, No murmurs Abdomen: Bowel Sounds Present, Soft, Non Tender Extremities: No edema, Capillary Refill Less than 3 Seconds, - - Amputated first and second toe of the right foot. Skin: No rashes, Ulcer/ Wound - Two wounds present on amputated first and second toe of the right foot. Musculoskeletal: No Tenderness to Palpation of Joints or Extremities Neurological: Cranial nerves II-XII grossly intact Psych/Mental Status: Normal Affect, Appropriate Laboratory Results 06/12/20 17:00: Urine Color Red, Urine Clarity Turbid, Urine pH 6.5, Ur Specific [place] 1.020, Urine Protein 500 H, Urine Glucose (UA) Normal, Urine Ketones 15 H, Urine Occult Blood 250 H, Urine Nitrite Negative, Urine Bilirubin Negative, Urine Urobilinogen Normal, Ur Leukocyte Esterase Negative, Urine RBC > 100 SEEN, Urine WBC 0 SEEN, Ur Squamous Epith Cells 0-5 SEEN, Amorphous Sediment 1+ URATE, Urine Bacteria 0 SEEN, Urine Mucus 0 SEEN 06/12/20 17:20: WBC 13.1 H, RBC 4.88, Hgb 13.5, Hct 43.2, MCV 88.5, MCH 27.7, MCHC 31.3 L, RDW Std Deviation 45.0 H, RDW Coeff of Nyla 14.1, Plt Count 378, MPV 9.4, Immature Gran % (Auto) 0.400, Neut % (Auto) 65.1, Lymph % (Auto) 21.8, [place] % (Auto) 11.7 H, Eos % (Auto) 0.7, Baso % (Auto) 0.3, Absolute Neuts (auto) 8.6 H, Absolute Lymphs (auto) 2.86, Nucleated RBC % 0, Differential Comment SCANNED, Diff Path Review November, Platelet Estimate ADEQUATE, RBC Morphology NORM C+C 06/12/20 17:20: PT 13.6, INR 1.1, APTT 36.2 06/12/20 17:20: Sodium 143, Potassium 3.9, Chloride 109 H, Carbon Dioxide 26.0, Anion Gap 8, BUN 18, Creatinine 0.86, Estim Creat Clear Calc 90.33, Est GFR (MDRD) Af Amer 113, Est GFR (MDRD) Non-Af 93, BUN/Creatinine Ratio 20.9 H, Glucose 107 H, Calcium 9.6 Assessment/Plan All Active Problems (Last Reviewed 06/12/20 @ 21:[address] Phillip Kaufman MD) Gross hematuria (Acute) S/P tonsillectomy (Acute) Gross hematuria Abdomen and pelvis CT showed urinary bladder hematoma/blood products. Mild left hydronephrosis. Continue bladder irrigation started emergency department. Repeat H&H. CBC in a.m.. Supportive treatment with lactated Ringer's. Discussed with Dr. Ranjeet Paniagua who placed extensive patient's right SFA. Okay to continue aspirin. Hold Plavix. Keep n.p.o. after midnight Urology consult. Diabetes mellitus Blood glucose is mildly elevated at 107. On home long-acting and correction scale insulin. On home Metformin. Hold all hypoglycemic regimen at this time since patient is at risk of hypoglycemia especially as he will be kept n.p.o. Patient is concerned about the rise in his blood glucose while of his insulin regimen. Accu-Chek every 6 hours with correction scale insulin. If blood glucose is more than 150 consider starting long-acting insulin. Hypertension His blood pressure is elevated. Lisinopril continued As needed hydralazine ordered. Trend blood pressure and adjust blood pressure medications. Chronic osteomyelitis of amputated right first and second toe Augmentin continued Continue Betadine dressing. Wound care consult. Home vitamin C continued PAD status post stenting Stent was placed on 03/12/2020 in right superficial femoral artery. Aspirin continued Plavix held as above DVT prophylaxis SCD. Inpatient E&M: 15758 Init Hosp L3
[2020-06-12 21:35] VITALS: BMI 39.4
[2020-06-12 21:37] VITALS: BP 156/69; PULSE 78; RESP 18; TEMP 36.8; O2SAT 95
[2020-06-12 21:48] VITALS: BMI 39.4
[2020-06-12] MEDS: Atorvastatin Calcium 20 MG Tablet PO (21:56)
[2020-06-12] MEDS: 0.9% Saline Lock 10 ML Syringe IV (21:56)
[2020-06-12] MEDS: Amox/Clavulanate 875 MG Tablet PO (21:56)
[2020-06-12] MEDS: Lactated Ringers 1,000 ML 100 ML IV (21:56)
[2020-06-12] MEDS: Acetaminophen 325 MG Tablet 650 MG PO (22:03)
[2020-06-12 22:52] VITALS: RESP 16
[2020-06-12 23:02] VITALS: O2SAT 94
[2020-06-13] VITALS (8 sets, daily range): BP systolic 128–148; BP diastolic 48–93; PULSE 64–76; RESP 16–18; TEMP 36.1–36.8; O2SAT 92–96
[2020-06-13 00:13] LABS: Hematocrit 38.9 % (40-54); Hemoglobin 11.6 g/dL (13.0-16.5)
[2020-06-13 00:21] LABS: Bedside Glucose 144 mg/dL (70-110)
[2020-06-13 06:15] LABS: Absolute Lymphocyte Count 1.67 X10^3/uL (0.83-4.51); Basophil# 0.02 X10^3/uL; Basophil% 0.2 % (0-1); Eosinophils% 1.1 % (0-5); Hematocrit 38.9 % (40-54); Hemoglobin 11.4 g/dL (13.0-16.5); Lymphocyte # 1.67 X10^3/ul (4.0); Lymphocyte % 18.8 % (19-41); Mean Corp Hgb Conc 29.3 g/dL (32-36); Mean Corpuscular Hgb 26.9 pg (27.0-32.0); Mean Corpuscular Volume 91.7 fL (80-94); Mean Platelet Vol. 9.3 fl (6.2-12.0); Monocyte# 1.08 X10^3/uL; Monocyte% 12.1 % (0-10); NRBC Flagged by Analyzer 0 % (0-5); Neutrophil % 67.6 % (47-70); Platelet Count 308 K/mm3 (150-450); RBC Distribution Width CV 14.5 % (11.6-14.6); RBC Distribution Width SD 48.3 fl (35.1-43.9); Red Blood Count 4.24 M/mm3 (4.6-6.2); White Blood Count 8.9 K/mm3 (4.4-11.0)
[2020-06-13] MEDS: Levothyroxine 125 MCG Tablet PO (06:41)
[2020-06-13] MEDS: Lactated Ringers 1,000 ML 100 ML IV ×2 (06:41→17:16)
[2020-06-13 06:45] LABS: Anion Gap 3 (5-15); BUN 13 mg/dL (7-18); BUN/Creat Ratio 15.5 RATIO (10-20); Chloride 109 mmol/L (98-107); Creatinine, Serum 0.84 mg/dL (0.70-1.30); EST Glomerular Filtration Rate 96 mL/min (>60); Est Glom Filt Rate - Afr Amer 117 mL/min (>60); Estimated Creatinine Clearance 92.48 ml/min; Glucose 110 mg/dL (74-106); Sodium Level 142 mmol/L (136-145)
[2020-06-13 07:00] LABS: Bedside Glucose 119 mg/dL (70-110)
[2020-06-13] MEDS: Lisinopril 10 MG Tablet PO (07:56)
--- NOTE | 2020-06-13 09:54 | CON.PCM_ITS ---
Problem List (1) Gross hematuria Status: Acute Reason for Consult Date of Consultation: 06/13/20 Reason for Consultation: Gross hematuria History of Present Illness: The patient is a 70 year old male who presented to the hospital with gross hematuria he states has been bleeding about a week and then he developed more bleeding and could not urinate presented to the emergency room to put a catheter and is on three-way irrigation. At home his home list he takes Plavix and aspirin patient is a poor historian he was not sure what blood thinners he was taking. At this point the urine is clearing again I have the continue with CBI the nurses will manually irrigate for clots hopefully the bleeding will stop by tomorrow we will get the catheter out for voiding trial also can start him on some Flomax. CAT scan reviewed cannot really see any clear cause for the bleeding told the patient that CAT scan sometimes can miss tumors understands he could have a bladder cancer prostate cancer some issue that is causing the bleeding will do further work-up. Past Medical History Past Medical History (Chronic Problems): Chronic Problems (Last Reviewed 06/12/20 @ 22:[address] 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 Adan Mims MD) PAD (peripheral artery disease) (Chronic) I73.9 HTN (hypertension) (Chronic) I10 Hypothyroid (Chronic) E03.9 Diabetes mellitus (Chronic) E11.9 Allergies No Known Allergies Allergy (Verified 06/12/20 16:59) Home Medications: Ambulatory Orders Medication Instructions Recorded Aspirin [Aspirin, Baby] 81 mg PO DAILY@0800 #30 tab.chew 08/24/17 Multivitamin [Multiple Vitamins] 1 each PO DAILY 09/12/17 Ascorbic Acid [Vitamin C] 500 mg PO DAILY 09/26/17 Amox/Clavulanate Tablet [Augmentin 875 mg PO Q12H #20 tab 03/12/20 Tablet] Atorvastatin Calcium 20 mg PO QHS #30 tab 03/12/20 Clopidogrel Bisulfate [Plavix] 75 mg PO DAILY #30 tab 03/12/20 Lisinopril [Zestril] 10 mg PO DAILY #30 tab 03/12/20 Metformin HCl 1,000 mg PO BID #60 tab 03/12/20 Pen Needle, Diabetic [Pen Needle] 1 ea SUBCUT ACHS #1 box 03/12/20 blood sugar diagnostic See Rx Instructions .ROUTE 03/18/20 .MEDSUPPLY #100 ea insulin glargine 100 unit/mL (3 50 unit SUBCUT QHS #15 ml 03/31/20 mL) subcutaneous pen levothyroxine 125 mcg tablet 125 mcg PO DAILY #90 tab 05/25/20 Insulin Aspart [Novolog Flexpen 35 units SC TIDCM 06/12/20 (BK)] Potassium 99 mg PO BID 06/12/20 Surgical History: Surgical History (Last Reviewed 06/13/20 @ 09:[address] Adan Mims MD) S/P tonsillectomy (Acute) Z90.89 S/P colonoscopy (Chronic) Z98.890 Surgical History: tonsillectomy, - - Right second toe amputation. Psychiatric History: No pertinent psych hx Smoking Status: Never smoker Tobacco Use: Non-smoker - *Family History Maternal Family History: Family History (Last Reviewed 06/13/20 @ 09:[address] Adan Mims MD) Father Diabetes Heart disease Hypertension History Items: - - Patient denies any market maternal family history including heart disease, diabetes, cancer and denies any history of her having taken any medications. Paternal Family History: Family History (Last Reviewed 06/13/20 @ 09:[address] Adan Mims MD) Father Diabetes Heart disease Hypertension History Items: Diabetes, Heart Disease, Hypertension Review of Systems Constitutional: Denies: Chills, Fever, Weight Change HEENT: Denies: Head Aches, Sinus Congestion, Sinus Drainage Cardiovascular: Denies: Chest Pain, Palpitations Respiratory: Denies: Cough, Shortness of breath at rest, Sputum production Gastrointestinal: Denies: Abdominal Pain, Nausea, Vomiting Genitourinary: Reports: Hematuria. Denies: Dysuria Musculoskeletal: Denies: Joint Pain, Joint Tenderness Skin: Denies: Rash, Wounds Neurological: Denies: Numbness, Tingling, Focal weakness Psychiatric: Denies: Anxiety, Depression, Homicidal Ideations, Suicidal Ideations Hematologic/ Lymphatic: Denies: Easy Bruising, Easy Bleeding Physical Exam - Physical Exam Vital Signs Temp 96.9 F L 06/13/20 07:52 Pulse 64 06/13/20 07:52 Resp 18 06/13/20 07:52 BP 138/93 H 06/13/20 07:52 Pulse Ox 93 06/13/20 08:28 Intake & Output 06/11/20 06/12/20 06/13/20 23:59 23:59 23:59 Intake Total 500 / 500 875 / 875 Output Total 2800 / 2800 400 / 400 Balance -2300 / -2300 475 / 475 Weight: 135.6 kg Intake: Intake, IV Amount 500 / 500 875 / 875 0.9% Normal Saline 500 ML @ 500 / 500 1000 mls/hr IV .Q30M LIZZY Rx#: [id number] Lactated Ringers 1,000 ML @ 100 875 / 875 mls/hr IV .Q10H LIZZY Rx#: [id number] Output: Urine 2800 / 2800 400 / 400 Other: Intake, Continuous Bladder 3,000 3,000 Irrigation Output, Continuous Bladder 2,600 3,200 Irrigation General: Alert, Oriented x3 HEENT: Atraumatic Oral: Moist Mucosa, - Neck: Supple Lungs: Normal air movement Cardiovascular: Regular rate Abdomen: Soft, Obese Rectal: Exam deferred Laboratory Tests Past 24 Hrs 06/12/20 06/12/20 06/12/20 17:00 17:20 17:20 WBC 13.1 H RBC 4.88 Hgb 13.5 Hct 43.2 MCV 88.5 MCH 27.7 MCHC 31.3 L RDW Std Deviation 45.0 H RDW Coeff of Nyla 14.1 Plt Count 378 MPV 9.4 Immature Gran % (Auto) 0.400 Neut % (Auto) 65.1 Lymph % (Auto) 21.8 [place] % (Auto) 11.7 H Eos % (Auto) 0.7 Baso % (Auto) 0.3 Absolute Neuts (auto) 8.6 H Absolute Lymphs (auto) 2.86 Nucleated RBC % 0 Differential Comment SCANNED Diff Path Review May foll Platelet Estimate ADEQUATE RBC Morphology NORM C+C PT 13.6 INR 1.1 APTT 36.2 Sodium Potassium Chloride Carbon Dioxide Anion Gap BUN Creatinine Estim Creat Clear Calc Est GFR (MDRD) Af Amer Est GFR (MDRD) Non-Af BUN/Creatinine Ratio Glucose Calcium Urine Color Red Urine Clarity Turbid Urine pH 6.5 Ur Specific [place] 1.020 Urine Protein 500 H Urine Glucose (UA) Normal Urine Ketones 15 H Urine Occult Blood 250 H Urine Nitrite Negative Urine Bilirubin Negative Urine Urobilinogen Normal Ur Leukocyte Esterase Negative Urine RBC > 100 SEEN Urine WBC 0 SEEN Ur Squamous Epith Cells 0-5 SEEN Amorphous Sediment 1+ URATE Urine Bacteria 0 SEEN Urine Mucus 0 SEEN 06/12/20 06/13/20 06/13/20 17:20 00:04 05:12 WBC 8.9 RBC 4.24 L Hgb 11.6 L 11.4 L Hct 38.9 L 38.9 L MCV 91.7 MCH 26.9 L MCHC 29.3 L D RDW Std Deviation 48.3 H RDW Coeff of Nyla 14.5 Plt Count 308 MPV 9.3 Immature Gran % (Auto) 0.200 Neut % (Auto) 67.6 Lymph % (Auto) 18.8 L [place] % (Auto) 12.1 H Eos % (Auto) 1.1 Baso % (Auto) 0.2 Absolute Neuts (auto) 6.0 Absolute Lymphs (auto) 1.67 Nucleated RBC % 0 Differential Comment Diff Path Review Platelet Estimate RBC Morphology PT INR APTT Sodium 143 Potassium 3.9 Chloride 109 H Carbon Dioxide 26.0 Anion Gap 8 BUN 18 Creatinine 0.86 Estim Creat Clear Calc 90.33 Est GFR (MDRD) Af Amer 113 Est GFR (MDRD) Non-Af 93 BUN/Creatinine Ratio 20.9 H Glucose 107 H Calcium 9.6 Urine Color Urine Clarity Urine pH Ur Specific [place] Urine Protein Urine Glucose (UA) Urine Ketones Urine Occult Blood Urine Nitrite Urine Bilirubin Urine Urobilinogen Ur Leukocyte Esterase Urine RBC Urine WBC Ur Squamous Epith Cells Amorphous Sediment Urine Bacteria Urine Mucus 06/13/20 05:12 WBC RBC Hgb Hct MCV MCH MCHC RDW Std Deviation RDW Coeff of Nyla Plt Count MPV Immature Gran % (Auto) Neut % (Auto) Lymph % (Auto) [place] % (Auto) Eos % (Auto) Baso % (Auto) Absolute Neuts (auto) Absolute Lymphs (auto) Nucleated RBC % Differential Comment Diff Path Review Platelet Estimate RBC Morphology PT INR APTT Sodium 142 Potassium 4.0 Chloride 109 H Carbon Dioxide 30.0 Anion Gap 3 L BUN 13 Creatinine 0.84 Estim Creat Clear Calc 92.48 Est GFR (MDRD) Af Amer 117 Est GFR (MDRD) Non-Af 96 BUN/Creatinine Ratio 15.5 Glucose 110 H Calcium 9.0 Urine Color Urine Clarity Urine pH Ur Specific [place] Urine Protein Urine Glucose (UA) Urine Ketones Urine Occult Blood Urine Nitrite Urine Bilirubin Urine Urobilinogen Ur Leukocyte Esterase Urine RBC Urine WBC Ur Squamous Epith Cells Amorphous Sediment Urine Bacteria Urine Mucus Assessment/Plan All Active Problems (Last Reviewed 06/12/20 @ 22:[address] Phillip Kaufman MD) Gross hematuria (Acute) S/P tonsillectomy (Acute) 70-year-old male presents with gross hematuria plan to continue with CBI, also manual irrigation about every 2 or 3 hours but 50 cc of normal saline to get all the clots out. Hopefully the bleeding will stop by tomorrow we can do a voiding trial. I am also start him on Flomax 0.4 mg daily. Probably will set him up for outpatient cystoscopy or outpatient cystoscopy and possible TURP will see if we can get him home without a catheter. For now I think is imperative we hold the aspirin and Plavix as we not sure the source of bleeding.
[2020-06-13] MEDS: Multivitamins,Therapeutic Tablet 1 TABLET PO (09:57)
[2020-06-13] MEDS: Ascorbic Acid 500 MG Tablet PO (09:57)
[2020-06-13] MEDS: Amox/Clavulanate 875 MG Tablet PO ×2 (09:57→16:01)
[2020-06-13 10:26] LABS: Bedside Glucose 110 mg/dL (70-110)
--- NOTE | 2020-06-13 10:27 | PCM.PN.HOSP ---
Patient Problems: Active and Suspected Problems (Last Reviewed 06/13/20 @ 09:[address] Adan Mims MD) Gross hematuria (Acute) S/P tonsillectomy (Acute) Reason for Visit: hematuria Subjective: Has been having hematuria for 1 week. Butler placed in ED with flushing. Vitals/I&O's: Vital Signs Temp Pulse Resp BP Pulse Ox 36.1 C L 64 18 138/93 H 93 06/13/20 07:52 06/13/20 07:52 06/13/20 07:52 06/13/20 07:52 06/13/20 08:28 Oxygen Delivery Method Room Air Weight: 135.6 kg Body Mass Index (BMI) 39.4 Intake and Output for Last 24 Hours 06/11/20 06/12/20 06/13/20 23:59 23:59 23:59 Intake Total 500 / 500 875 / 875 Output Total 2800 / 2800 400 / 400 Balance -2300 / -2300 475 / 475 General: Alert, No apparent distress HEENT: Atraumatic, Normocephalic Oral: Moist Mucosa, No Gingival or Mucosal Lesions/ Ulcerations Neck: No Nodes, Thyroid Normal Size and Texture Lungs: Clear to auscultation, Normal air movement, No rhonchi, No wheeze Cardiovascular: Regular rate, Regular Rhythm, Normal S1, Normal S2 Abdomen: Bowel Sounds Present, Soft, Non Tender, Non-Distended, No Hepato-splenomegaly Extremities: No edema, No Calf Tenderness Skin: No rashes, No breakdown Psych/Mental Status: Normal Affect, Appropriate Laboratory Results 06/12/20 17:00: Urine Color Red, Urine Clarity Turbid, Urine pH 6.5, Ur Specific [place] 1.020, Urine Protein 500 H, Urine Glucose (UA) Normal, Urine Ketones 15 H, Urine Occult Blood 250 H, Urine Nitrite Negative, Urine Bilirubin Negative, Urine Urobilinogen Normal, Ur Leukocyte Esterase Negative, Urine RBC > 100 SEEN, Urine WBC 0 SEEN, Ur Squamous Epith Cells 0-5 SEEN, Amorphous Sediment 1+ URATE, Urine Bacteria 0 SEEN, Urine Mucus 0 SEEN 06/12/20 17:20: WBC 13.1 H, RBC 4.88, Hgb 13.5, Hct 43.2, MCV 88.5, MCH 27.7, MCHC 31.3 L, RDW Std Deviation 45.0 H, RDW Coeff of [place] 14.1, Plt Count 378, MPV 9.4, Immature Gran % (Auto) 0.400, Neut % (Auto) 65.1, Lymph % (Auto) 21.8, [place] % (Auto) 11.7 H, Eos % (Auto) 0.7, Baso % (Auto) 0.3, Absolute Neuts (auto) 8.6 H, Absolute Lymphs (auto) 2.86, Nucleated RBC % 0, Differential Comment SCANNED, Diff Path Review November, Platelet Estimate ADEQUATE, RBC Morphology NORM C+C 06/12/20 17:20: PT 13.6, INR 1.1, APTT 36.2 06/12/20 17:20: Sodium 143, Potassium 3.9, Chloride 109 H, Carbon Dioxide 26.0, Anion Gap 8, BUN 18, Creatinine 0.86, Estim Creat Clear Calc 90.33, Est GFR (MDRD) Af Amer 113, Est GFR (MDRD) Non-Af 93, BUN/Creatinine Ratio 20.9 H, Glucose 107 H, Calcium 9.6 06/13/20 00:04: Hgb 11.6 L, Hct 38.9 L 06/13/20 00:18: POC Glucose 144 H 06/13/20 05:12: WBC 8.9, RBC 4.24 L, Hgb 11.4 L, Hct 38.9 L, MCV 91.7, MCH 26.9 L, MCHC 29.3 L D, RDW Std Deviation 48.3 H, RDW Coeff of Nyla 14.5, Plt Count 308, MPV 9.3, Immature Gran % (Auto) 0.200, Neut % (Auto) 67.6, Lymph % (Auto) 18.8 L, [place] % (Auto) 12.1 H, Eos % (Auto) 1.1, Baso % (Auto) 0.2, Absolute Neuts (auto) 6.0, Absolute Lymphs (auto) 1.67, Nucleated RBC % 0 06/13/20 05:12: Sodium 142, Potassium 4.0, Chloride 109 H, Carbon Dioxide 30.0, Anion Gap 3 L, BUN 13, Creatinine 0.84, Estim Creat Clear Calc 92.48, Est GFR (MDRD) Af Amer 117, Est GFR (MDRD) Non-Af 96, BUN/Creatinine Ratio 15.5, Glucose 110 H, Calcium 9.0 06/13/20 06:48: POC Glucose 119 H 06/13/20 10:21: POC Glucose 110 Current Medications Acetaminophen (Acetaminophen 325 Mg Tablet) 650 mg PO Q6H PRN PRN PRN Reason: Pain Score 1-10/Temp > 100.7 F Last Admin: 06/12/20 22:03 Dose: 650 mg Documented by: Amoxicillin/Clavulanate Potassium (Amox/Clavulanate 875 Mg Tablet) 875 mg PO BIDCM [facility] Last Admin: 06/13/20 09:57 Dose: 875 mg Documented by: Ascorbic Acid (Ascorbic Acid 500 Mg Tablet) 500 mg PO DAILY [facility] Last Admin: 06/13/20 09:57 Dose: 500 mg Documented by: Atorvastatin Calcium (Atorvastatin Calcium 20 Mg Tablet) 20 mg PO QHS [facility] Last Admin: 06/12/20 21:56 Dose: 20 mg Documented by: Dextrose (Dextrose 50%-Water 25 Gm/50 Ml Disp.Syrin) 0 gm IV X1 PRN; Protocol PRN Reason: Hypoglycemia Glucagon (Glucagon 1 Mg/Ml Syringe) 1 mg IM .X1 PRN PRN Reason: Hypoglycemia Hydralazine HCl (Hydralazine 20 Mg/Ml Vial) 5 mg IV Q6H PRN PRN PRN Reason: SBP > 160 OR DBP > 120 Lactated Ringer's () 1,000 mls @ 100 mls/hr IV .Q10H [facility] Last Admin: 06/13/20 06:41 Dose: 100 mls/hr Documented by: Sodium Chloride () 250 mls @ 15 mls/hr IV .[id number] PRN PRN Reason: Saline Flush Sodium Chloride () 250 mls @ 15 mls/hr IV .[id number] PRN PRN Reason: Additional IVPB Infusion Insulin Human Lispro (Insulin Lispro 100 Unit/Ml Insuln.Pen) 0 unit SC [facility]; Protocol Levothyroxine Sodium (Levothyroxine 125 Mcg Tablet) 125 mcg PO DAILY@0600 [facility] Last Admin: 06/13/20 06:41 Dose: 125 mcg Documented by: Lisinopril (Lisinopril 10 Mg Tablet) 10 mg PO DAILY [facility] Last Admin: 06/13/20 07:56 Dose: 10 mg Documented by: Melatonin (Melatonin 3 Mg Tablet) 3 mg PO QHS PRN PRN PRN Reason: INSOMNIA Multivitamins (Multivitamins,Therapeutic Tablet) [facility] Last Admin: 06/13/20 09:57 Dose: 1 tablet Documented by: Ondansetron HCl (Ondansetron 4 Mg/2 Ml Vial) 4 mg IV Q8H PRN PRN PRN Reason: NAUSEA/VOMITING Potassium Chloride (Potassium Chloride 10 Meq Tablet) [facility] Last Admin: 06/13/20 09:57 Dose: 10 meq Documented by: Senna/Docusate Sodium (Senna/Docusate Sodium 1 Tablet) 2 tablet PO BID PRN PRN PRN Reason: Constipation Sodium Chloride (0.9% Saline Lock 10 Ml Syringe) 10 - 40 ml IV UD PRN PRN Reason: SALINE FLUSH Last Admin: 06/12/20 21:56 Dose: 10 ml Documented by: Tamsulosin HCl (Tamsulosin Hcl 0.4 Mg Capsule) 0.4 mg PO DAILY@1730 [facility] STROKE Vital Signs/Narrative: Vital Signs Temp Pulse Resp BP Pulse Ox 06/13/20 08:28 93 06/13/20 07:52 36.1 C L 64 18 138/93 H 96 Medical Necessity - Tobacco Use Smoking Status: Never smoker Tobacco Use: Non-smoker Assessment/Plan All Active Problems (Last Reviewed 06/13/20 @ 09:[address] Adan Mims MD) Gross hematuria (Acute) S/P tonsillectomy (Acute) 1. acute hematuria: improving with irrigation ASA and clopidogrel held following, plan for outpt cysto if resolves tamsulosin started possible voiding trial 06/14 2. ABLA Hg 13/5 to 05/19 2/2 above monitor no need for transfusion at this time. 3. DM2 fair control at this time A1c 7.2 on 05/25 since so immediate procedures will resume home regimen of insulins. resume metformin upon discharge 4. chronic OM on amox/CA follow up with wound care/podiatry 5. PAD: ASA and clopidogrel held resume when ok'd by 6. VTE prophylaxis: SCDs Inpatient E&M: [id number] [facility] Hosp L2
[2020-06-13] MEDS: Insulin Lispro 100 UNIT/ML INSULN.PEN 35 UNIT SC ×2 (11:02→18:33)
[2020-06-13] MEDS: Acetaminophen 325 MG Tablet 650 MG PO (13:15)
[2020-06-13 16:10] LABS: Bedside Glucose 108 mg/dL (70-110)
[2020-06-13] MEDS: Tamsulosin HCl 0.4 MG Capsule PO (16:11)
[2020-06-13] MEDS: Atorvastatin Calcium 20 MG Tablet PO (21:41)
[2020-06-13 22:35] LABS: Bedside Glucose 145 mg/dL (70-110)
[2020-06-14] VITALS: PULSE 76; RESP 16
[2020-06-14 02:00] VITALS: BP 161/67; PULSE 70; RESP 16; TEMP 36.8; O2SAT 93
[2020-06-14] MEDS: Lactated Ringers 1,000 ML 100 ML IV (03:19)
[2020-06-14] MEDS: Acetaminophen 325 MG Tablet 650 MG PO (03:21)
[2020-06-14 05:53] LABS: Absolute Lymphocyte Count 1.69 X10^3/uL (0.83-4.51); Absolute Neutrophil Count 5.2 X10^3/uL (2.0-7.7); Basophil# 0.03 X10^3/uL; Basophil% 0.4 % (0-1); Eosinophil# 0.14 X10^3/uL; Eosinophils% 1.7 % (0-5); Hematocrit 36.7 % (40-54); Hemoglobin 11.1 g/dL (13.0-16.5); Lymphocyte # 1.69 X10^3/ul (4.0); Lymphocyte % 20.8 % (19-41); Mean Corp Hgb Conc 30.2 g/dL (32-36); Mean Corpuscular Hgb 27.5 pg (27.0-32.0); Mean Corpuscular Volume 90.8 fL (80-94); Mean Platelet Vol. 9.5 fl (6.2-12.0); Monocyte# 0.99 X10^3/uL; Monocyte% 12.2 % (0-10); NRBC Flagged by Analyzer 0 % (0-5); Neutrophil # 5.24 X10^3/uL (2.7-7.7); Neutrophil % 64.5 % (47-70); Platelet Count 304 K/mm3 (150-450); RBC Distribution Width CV 14.2 % (11.6-14.6); RBC Distribution Width SD 47.3 fl (35.1-43.9); Red Blood Count 4.04 M/mm3 (4.6-6.2); White Blood Count 8.1 K/mm3 (4.4-11.0)
[2020-06-14 06:35] LABS: Anion Gap 4 (5-15); BUN 10 mg/dL (7-18); BUN/Creat Ratio 14.2 RATIO (10-20); Calcium,Total 8.7 mg/dL (8.5-10.1); Chloride 109 mmol/L (98-107); Creatinine, Serum 0.71 mg/dL (0.70-1.30); EST Glomerular Filtration Rate 117 mL/min (>60); Est Glom Filt Rate - Afr Amer 142 mL/min (>60); Estimated Creatinine Clearance 77.68 ml/min; Glucose 120 mg/dL (74-106); Potassium 4.1 mmol/L (3.5-5.1); Sodium Level 142 mmol/L (136-145)
[2020-06-14] MEDS: Levothyroxine 125 MCG Tablet PO (06:40)
[2020-06-14 07:26] LABS: Bedside Glucose 134 mg/dL (70-110)
[2020-06-14] MEDS: Amox/Clavulanate 875 MG Tablet PO (07:48)
--- NOTE | 2020-06-14 07:48 | PCM.PN.HOSP ---
Patient Problems: Active and Suspected Problems (Last Reviewed 06/13/20 @ 09:[address] Adan Mims MD) Gross hematuria (Acute) S/P tonsillectomy (Acute) Vitals/I&O's: Vital Signs Temp Pulse Resp BP Pulse Ox 98.2 F 70 16 161/67 H 93 06/14/20 02:00 06/14/20 02:00 06/14/20 02:00 06/14/20 02:00 06/14/20 02:00 Oxygen Delivery Method Room Air Weight: 298 lb 15.149 oz Body Mass Index (BMI) 39.4 Intake and Output for Last 24 Hours 06/12/20 06/13/20 06/14/20 23:59 23:59 23:59 Intake Total 500 / 500 2595 / 2595 1000 / 1000 Output Total 2800 / 2800 2200 / 2200 3225 / 3225 Balance -2300 / -2300 395 / 395 -2225 / -2225 Laboratory Results 06/13/20 10:21: POC Glucose 110 06/13/20 15:59: POC Glucose 108 06/13/20 21:34: POC Glucose 145 H 06/14/20 05:10: WBC 8.1, RBC 4.04 L, Hgb 11.1 L, Hct 36.7 L, MCV 90.8, MCH 27.5, MCHC 30.2 L, RDW Std Deviation 47.3 H, RDW Coeff of Nyla 14.2, Plt Count 304, MPV 9.5, Immature Gran % (Auto) 0.400, Neut % (Auto) 64.5, Lymph % (Auto) 20.8, [place] % (Auto) 12.2 H, Eos % (Auto) 1.7, Baso % (Auto) 0.4, Absolute Neuts (auto) 5.2, Absolute Lymphs (auto) 1.69, Nucleated RBC % 0 06/14/20 05:10: Sodium 142, Potassium 4.1, Chloride 109 H, Carbon Dioxide 29.0, Anion Gap 4 L, BUN 10, Creatinine 0.71, Estim Creat Clear Calc 77.68, Est GFR (MDRD) Af Amer 142, Est GFR (MDRD) Non-Af 117, BUN/Creatinine Ratio 14.2, Glucose 120 H, Calcium 8.7 06/14/20 07:16: POC Glucose 134 H Current Medications Acetaminophen (Acetaminophen 325 Mg Tablet) 650 mg PO Q6H PRN PRN PRN Reason: Pain Score 1-10/Temp > 100.7 F Last Admin: 06/14/20 03:21 Dose: 650 mg Documented by: Amoxicillin/Clavulanate Potassium (Amox/Clavulanate 875 Mg Tablet) 875 mg PO BIDCM [facility] Last Admin: 06/13/20 16:01 Dose: 875 mg Documented by: Ascorbic Acid (Ascorbic Acid 500 Mg Tablet) 500 mg PO DAILY [facility] Last Admin: 06/13/20 09:57 Dose: 500 mg Documented by: Atorvastatin Calcium (Atorvastatin Calcium 20 Mg Tablet) 20 mg PO QHS [facility] Last Admin: 06/13/20 21:41 Dose: 20 mg Documented by: Dextrose (Dextrose 50%-Water 25 Gm/50 Ml Disp.Syrin) 0 gm IV X1 PRN; Protocol PRN Reason: Hypoglycemia Glucagon (Glucagon 1 Mg/Ml Syringe) 1 mg IM .X1 PRN PRN Reason: Hypoglycemia Hydralazine HCl (Hydralazine 20 Mg/Ml Vial) 5 mg IV Q6H PRN PRN PRN Reason: SBP > 160 OR DBP > 120 Lactated Ringer's () 1,000 mls @ 100 mls/hr IV .Q10H [facility] Last Admin: 06/14/20 03:19 Dose: 100 mls/hr Documented by: Sodium Chloride () 250 mls @ 15 mls/hr IV .[id number] PRN PRN Reason: Saline Flush Sodium Chloride () 250 mls @ 15 mls/hr IV .[id number] PRN PRN Reason: Additional IVPB Infusion Insulin Glargine (Insulin Glargine 100 Units/Ml Pen) 50 units SC BID [facility] Last Admin: 06/13/20 21:40 Dose: 50 u Documented by: Insulin Human Lispro (Insulin Lispro 100 Unit/Ml Insuln.Pen) 0 unit SC ACHS [facility]; Protocol Last Admin: 06/14/20 07:17 Dose: Not Given Documented by: Insulin Human Lispro (Insulin Lispro 100 Unit/Ml Insuln.Pen) 35 unit SC TIDCM [facility] Last Admin: 06/13/20 18:33 Dose: 35 u Documented by: Levothyroxine Sodium (Levothyroxine 125 Mcg Tablet) 125 mcg PO DAILY@0600 [facility] Last Admin: 06/14/20 06:40 Dose: 125 mcg Documented by: Lisinopril (Lisinopril 10 Mg Tablet) 10 mg PO DAILY [facility] Last Admin: 06/13/20 07:56 Dose: 10 mg Documented by: Melatonin (Melatonin 3 Mg Tablet) 3 mg PO QHS PRN PRN PRN Reason: INSOMNIA Multivitamins (Multivitamins,Therapeutic Tablet) [facility] Last Admin: 06/13/20 09:57 Dose: 1 tablet Documented by: Ondansetron HCl (Ondansetron 4 Mg/2 Ml Vial) 4 mg IV Q8H PRN PRN PRN Reason: NAUSEA/VOMITING Potassium Chloride (Potassium Chloride 10 Meq Tablet) [facility] Last Admin: 06/13/20 16:01 Dose: 10 meq Documented by: Senna/Docusate Sodium (Senna/Docusate Sodium 1 Tablet) 2 tablet PO BID PRN PRN PRN Reason: Constipation Sodium Chloride (0.9% Saline Lock 10 Ml Syringe) 10 - 40 ml IV UD PRN PRN Reason: SALINE FLUSH Last Admin: 06/12/20 21:56 Dose: 10 ml Documented by: Tamsulosin HCl (Tamsulosin Hcl 0.4 Mg Capsule) 0.4 mg PO DAILY@1730 [facility] Last Admin: 06/13/20 16:11 Dose: 0.4 mg Documented by: Medical Necessity - Tobacco Use Smoking Status: Never smoker Tobacco Use: Non-smoker Assessment/Plan All Active Problems (Last Reviewed 06/13/20 @ 09:[address] Adan Mims MD) Gross hematuria (Acute) S/P tonsillectomy (Acute) 70-year-old gentleman admitted with hematuria for 1 week. 1. acute hematuria: improving with irrigation ASA and clopidogrel held following, plan for outpt cysto if resolves tamsulosin started possible voiding trial 06/14 2. Acute blood loss anemia Hg 13/5 to 11/ 2/2 above monitor no need for transfusion at this time. 3. DM2 fair control at this time A1c 7.2 on 05/25 since so immediate procedures will resume home regimen of insulins. resume metformin upon discharge 4. chronic osteomyelitis on amox/CA follow up with wound care/podiatry 5. PAD: ASA and clopidogrel held resume when ok'd by 6. VTE prophylaxis: SCDs
[2020-06-14] MEDS: Ascorbic Acid 500 MG Tablet PO (07:49)
[2020-06-14] MEDS: Multivitamins,Therapeutic Tablet 1 TABLET PO (07:49)
[2020-06-14] MEDS: Lisinopril 10 MG Tablet PO (07:49)
[2020-06-14 07:52] VITALS: BP 168/71; PULSE 67; RESP 18; TEMP 36.7; O2SAT 98
--- NOTE | 2020-06-14 07:57 | DCINST_ITS ---
Discharge Diet: Light diet - advance as tolerated Discharge Activity: Return to Normal Activity Additional Instructions: hold all blood thinners, hold aspirin and hold plavix call urology for outpatient appointment. Allergies/Adverse Reactions: Allergies No Known Allergies Allergy (Verified 06/12/20 16:59) Medications to take at Discharge Aspirin [Aspirin, Baby] 81 mg PO DAILY@0800 #30 tab.chew 08/24/17 Multivitamin [Multiple Vitamins] 1 each PO DAILY 09/12/17 Ascorbic Acid [Vitamin C] 500 mg PO DAILY 09/26/17 Amox/Clavulanate Tablet [Augmentin Tablet] 875 mg PO Q12H #20 tab 03/12/20 Atorvastatin Calcium 20 mg PO QHS #30 tab 03/12/20 Clopidogrel Bisulfate [Plavix] 75 mg PO DAILY #30 tab 03/12/20 Lisinopril [Zestril] 10 mg PO DAILY #30 tab 03/12/20 Metformin HCl 1,000 mg PO BID #60 tab 03/12/20 Pen Needle, Diabetic [Pen Needle] 1 ea SUBCUT ACHS #1 box 03/12/20 blood sugar diagnostic See Rx Instructions .ROUTE .MEDSUPPLY #100 ea 03/18/20 levothyroxine 125 mcg tablet 125 mcg PO DAILY #90 tab 05/25/20 Insulin Aspart [Novolog Flexpen ([facility])] 35 units SC TIDCM 06/12/20 Potassium 99 mg PO BID 06/12/20 Insulin Glargine [Lantus ([facility])] 50 units SC BID 06/13/20 Primary Care Physician: Floyd Ricketts DO [Primary Care Provider] - Test Results: Test results from this visit will be discussed in further detail at your follow- up appointment, if applicable. Please Follow Up With: Adan Mims MD - [phone] When: in 2 weeks, please call to make an appointment.
[2020-06-14 08:24] VITALS: O2SAT 92
--- NOTE | 2020-06-14 09:36 | DCINST_ITS ---
- Discharge Diagnoses Current Active Problems: Current Active and Chronic Problems (Last Reviewed 06/13/20 @ 09:[address] Adan Mims MD) Gross hematuria (Acute) Hypothyroidism (acquired) (Chronic) Ulcer of right foot with fat layer exposed (Chronic) Ulcer of right foot with necrosis of muscle (Chronic) Osteomyelitis (Chronic) Type 2 diabetes mellitus with diabetic polyneuropathy (Chronic) Gangrene of toe of right foot (Chronic) Hallux limitus (Chronic) Chronic ulcer of left foot with fat layer exposed (Chronic) Hammertoe of right foot (Chronic) Hammertoe of left foot (Chronic) Delayed wound healing (Chronic) Cellulitis of right foot (Chronic) HLD (hyperlipidemia) (Chronic) Obesity (BMI 30-39.9) (Chronic) Uncontrolled type II diabetes mellitus (Chronic) PAD (peripheral artery disease) (Chronic) S/P tonsillectomy (Acute) S/P colonoscopy (Chronic) HTN (hypertension) (Chronic) Hypothyroid (Chronic) Diabetes mellitus (Chronic) You will use the following diet at home:: Calorie/Carbohydrate Controlled (specify 1200, 1400, etc), Cardiac Your food should be the consistency of: Regular Discharge Activity: Return to Normal Activity, May Not Drive - Until see his PCP Call your doctor if you observe: Fever of 101 or Higher, Coldness, Increased Pain, Numbness or Tingling, Change in Color, Inability to urinate, Inability to have a bowel movement, Shortness of breath, Dizziness, Fainting spells, Swelling in the ankles, Chest pain, Prolonged hiccoughing, Increased palpitations (irregular heartbeat), Calf discomfort, Uncontrolled pain Allergies/Adverse Reactions: Allergies No Known Allergies Allergy (Verified 06/12/20 16:59) Medications to take at Discharge Multivitamin [Multiple Vitamins] 1 each PO DAILY 09/12/17 Ascorbic Acid [Vitamin C] 500 mg PO DAILY 09/26/17 Atorvastatin Calcium 20 mg PO QHS #30 tab 03/12/20 Lisinopril [Zestril] 10 mg PO DAILY #30 tab 03/12/20 Metformin HCl 1,000 mg PO BID #60 tab 03/12/20 Pen Needle, Diabetic [Pen Needle] 1 ea SUBCUT ACHS #1 box 03/12/20 blood sugar diagnostic See Rx Instructions .ROUTE .MEDSUPPLY #100 ea 03/18/20 levothyroxine 125 mcg tablet 125 mcg PO DAILY #90 tab 05/25/20 Potassium 99 mg PO BID 06/12/20 Insulin Glargine [Lantus SoloStar Pen] 50 units SC BID 06/13/20 Amox/Clavulanate Tablet [Augmentin Tablet] 875 mg PO Q12H #20 tab 06/14/20 Aspirin [Aspirin, Baby] 81 mg PO DAILY@0800 #30 tab.chew 06/14/20 Clopidogrel Bisulfate [Plavix] 75 mg PO DAILY #30 tab 06/14/20 Insulin Aspart [Novolog Flexpen] 35 units SC TIDCM #0 06/14/20 Primary Care Physician: Floyd Ricketts DO [Primary Care Provider] - Please follow up with your Primary Care Physician in: In 1 to 2 weeks Test Results: Test results from this visit will be discussed in further detail at your follow- up appointment, if applicable. Please Follow Up With: Adan Mims MD When: 06/15/2020
--- NOTE | 2020-06-14 09:37 | PCM.DC.SUM ---
Discharge Date and Diagnosis - Problem List Patient Problems: Active and Suspected Problems (Last Reviewed 06/13/20 @ 09:[address] Adan Mims MD) Gross hematuria (Acute) S/P tonsillectomy (Acute) Date of Admission: 06/12/20 Date of Discharge: 06/14/20 - Primary Discharge Diagnosis Acute Problems: Active Problems (Last Reviewed 06/13/20 @ 09:[address] Adan Mims MD) Gross hematuria (Acute) S/P tonsillectomy (Acute) - Secondary Discharge Diagnosis Chronic Problems: Chronic Problems (Last Reviewed 06/13/20 @ 09:[address] Adan Mims MD) Hypothyroidism (acquired) (Chronic) Ulcer of right foot with fat layer exposed (Chronic) Ulcer of right foot with necrosis of muscle (Chronic) Osteomyelitis (Chronic) Type 2 diabetes mellitus with diabetic polyneuropathy (Chronic) Gangrene of toe of right foot (Chronic) Hallux limitus (Chronic) Chronic ulcer of left foot with fat layer exposed (Chronic) Hammertoe of right foot (Chronic) Hammertoe of left foot (Chronic) Delayed wound healing (Chronic) Cellulitis of right foot (Chronic) HLD (hyperlipidemia) (Chronic) Obesity (BMI 30-39.9) (Chronic) Uncontrolled type II diabetes mellitus (Chronic) PAD (peripheral artery disease) (Chronic) S/P colonoscopy (Chronic) HTN (hypertension) (Chronic) Hypothyroid (Chronic) Diabetes mellitus (Chronic) Hospital Course and Treatment Consultations 06/12/20 21:35 Consult: Onc/Wound/paid search manager Routine Comment: Reason for Consult:: Wound on first and second amputated right toe. Operations: - - right hallux amputation Summary of Care Provided: The patient is a 70-year-old gentleman admitted with hematuria for 1 week. 1. acute hematuria: [facility] It improved with continuous bladder irrigation. Butler catheter was removed in the morning. Patient had a spontaneous resolution. Seen by urologist and advised to continue holding aspirin and clopidogrel. On tamsulosin. CT abdomen and pelvis shows mild left hydronephrosis and urinary bladder hematoma. 2. Acute blood loss anemia secondary to hematuria: Hg drop from 13.5 to 11.4 and is stable for last 2 days. No indication for transfusion. 3. DM2 Well controlled, glucose between 110-1 40. A1c 7.2 on 05/25 4. chronic osteomyelitis on on amoxicillin/clavulanate follow up with wound care/podiatry 5. PAD: Aspirin and Plavix is on hold. Follow-up with Dr. Mims 6. VTE prophylaxis: SCDs Discharge medication reconciliation done. Discharge follow-up instructions completed. Discharge process discussed with the patient and all questions were answered to patient's satisfaction. Patient advised to hold aspirin and Plavix until sees Dr. Mims Total time spent, exact 35 minutes on discharge meds reconciliation, examination, coordination of care with nurses and ancillary staff, review of imaging and blood test and discussion with the patient on follow-up instructions Clinical Impression(s) from Imaging Studies Abdomen/Pelvis CT 06/12/20 17:31 IMPRESSION: 1. Urinary bladder hematoma/blood product. Mild left hydronephrosis. No urinary tract calcifications are seen. Although this could represent a recently passed calculus, urinary tract/bladder neoplasm should be considered. Patient Problems: Active and Suspected Problems (Last Reviewed 06/13/20 @ 09:[address] Adan Mims MD) Gross hematuria (Acute) S/P tonsillectomy (Acute) Objective: Patient Butler cath was removed about 2 hours ago. Patient had little spontaneous voiding urine, reddish color. No chest pain or shortness of breath. Patient has peripheral arterial disease and is on aspirin and Plavix which is on hold. Denies coronary artery disease. Physical exam General: Alert, Oriented x3, Cooperative HEENT: Atraumatic, PERRLA, EOMI, Normocephalic Oral: No Gingival or Mucosal Lesions/ Ulcerations Neck: Supple, No JVD, Negative Carotid Bruits Lungs: Air entry diminished in bilateral lung bases. No crepitation/rhonchi Cardiovascular: Regular rate, Regular Rhythm, Normal S1, Normal S2, No murmurs Abdomen: Bowel Sounds Present, Soft, Non Tender, Non-Distended : No renal angle tenderness. No suprapubic tenderness. Mild hematuria Extremities: Mild bilateral pitting ankle edema, Capillary Refill Less than 3 Seconds Skin: No rashes, No breakdown Musculoskeletal: No Tenderness to Palpation of Joints or Extremities Neurological: Cranial nerves II-XII grossly intact, Deep Tendon Reflexes 2+/4 and Symmetrical, Neuro grossly intact Psych/Mental Status: Normal Affect, Appropriate. - Physical Exam Vitals/I&O's: Vital Signs Temp Pulse Resp BP Pulse Ox 98.1 F 67 18 168/71 H 92 06/14/20 07:52 06/14/20 07:52 06/14/20 07:52 06/14/20 07:52 06/14/20 08:24 Oxygen Delivery Method Room Air Weight: 298 lb 15.149 oz Body Mass Index (BMI) 39.4 Intake and Output for Last 24 Hours 06/12/20 06/13/20 06/14/20 23:59 23:59 23:59 Intake Total 500 / 500 2595 / 2595 1000 / 1000 Output Total 2800 / 2800 2200 / 2200 3225 / 3225 Balance -2300 / -2300 395 / 395 -2225 / -2225 Laboratory Results 06/13/20 10:21: POC Glucose 110 06/13/20 15:59: POC Glucose 108 06/13/20 21:34: POC Glucose 145 H 06/14/20 05:10: WBC 8.1, RBC 4.04 L, Hgb 11.1 L, Hct 36.7 L, MCV 90.8, MCH 27.5, MCHC 30.2 L, RDW Std Deviation 47.3 H, RDW Coeff of Nyla 14.2, Plt Count 304, MPV 9.5, Immature Gran % (Auto) 0.400, Neut % (Auto) 64.5, Lymph % (Auto) 20.8, [place] % (Auto) 12.2 H, Eos % (Auto) 1.7, Baso % (Auto) 0.4, Absolute Neuts (auto) 5.2, Absolute Lymphs (auto) 1.69, Nucleated RBC % 0 06/14/20 05:10: Sodium 142, Potassium 4.1, Chloride 109 H, Carbon Dioxide 29.0, Anion Gap 4 L, BUN 10, Creatinine 0.71, Estim Creat Clear Calc 77.68, Est GFR (MDRD) Af Amer 142, Est GFR (MDRD) Non-Af 117, BUN/Creatinine Ratio 14.2, Glucose 120 H, Calcium 8.7 06/14/20 07:16: POC Glucose 134 H Current Medications Acetaminophen (Acetaminophen 325 Mg Tablet) 650 mg PO Q6H PRN PRN PRN Reason: Pain Score 1-10/Temp > 100.7 F Last Admin: 06/14/20 03:21 Dose: 650 mg Documented by: Amoxicillin/Clavulanate Potassium (Amox/Clavulanate 875 Mg Tablet) 875 mg PO BIDCM [facility] Last Admin: 06/14/20 07:48 Dose: 875 mg Documented by: Ascorbic Acid (Ascorbic Acid 500 Mg Tablet) 500 mg PO DAILY [facility] Last Admin: 06/14/20 07:49 Dose: 500 mg Documented by: Atorvastatin Calcium (Atorvastatin Calcium 20 Mg Tablet) 20 mg PO QHS [facility] Last Admin: 06/13/20 21:41 Dose: 20 mg Documented by: Dextrose (Dextrose 50%-Water 25 Gm/50 Ml Disp.Syrin) 0 gm IV X1 PRN; Protocol PRN Reason: Hypoglycemia Glucagon (Glucagon 1 Mg/Ml Syringe) 1 mg IM .X1 PRN PRN Reason: Hypoglycemia Hydralazine HCl (Hydralazine 20 Mg/Ml Vial) 5 mg IV Q6H PRN PRN PRN Reason: SBP > 160 OR DBP > 120 Lactated Ringer's () 1,000 mls @ 100 mls/hr IV .Q10H [facility] Last Admin: 06/14/20 03:19 Dose: 100 mls/hr Documented by: Sodium Chloride () 250 mls @ 15 mls/hr IV .[id number] PRN PRN Reason: Saline Flush Sodium Chloride () 250 mls @ 15 mls/hr IV .[id number] PRN PRN Reason: Additional IVPB Infusion Insulin Glargine (Insulin Glargine 100 Units/Ml Pen) 50 units SC BID [facility] Last Admin: 06/13/20 21:40 Dose: 50 u Documented by: Insulin Human Lispro (Insulin Lispro 100 Unit/Ml Insuln.Pen) 0 unit SC ACHS [facility]; Protocol Last Admin: 06/14/20 07:17 Dose: Not Given Documented by: Insulin Human Lispro (Insulin Lispro 100 Unit/Ml Insuln.Pen) 35 unit SC TIDCM [facility] [place] Last Admin: 06/13/20 18:33 Dose: 35 u Documented by: Levothyroxine Sodium (Levothyroxine 125 Mcg Tablet) 125 mcg PO DAILY@0600 [facility] Last Admin: 06/14/20 06:40 Dose: 125 mcg Documented by: Lisinopril (Lisinopril 10 Mg Tablet) 10 mg PO DAILY [facility] Last Admin: 06/14/20 07:49 Dose: 10 mg Documented by: Melatonin (Melatonin 3 Mg Tablet) 3 mg PO QHS PRN PRN PRN Reason: INSOMNIA [facility]ivit[facility] ([facility],Therapeutic [facility]t) [facility] Admin: 06/14/20 07:49 Dose: 1 tablet Documented by: Ondansetron HCl (Ondansetron 4 Mg/2 Ml Vial) 4 mg IV Q8H PRN PRN PRN Reason: NAUSEA/VOMITING Potassium Chloride (Potassium Chloride 10 Meq Tablet) [facility] Last Admin: 06/14/20 07:49 Dose: 10 meq Documented by: Senna/Docusate Sodium (Senna/Docusate Sodium 1 Tablet) 2 tablet PO BID PRN PRN PRN Reason: Constipation Sodium Chloride (0.9% Saline Lock 10 Ml Syringe) 10 - 40 ml IV UD PRN PRN Reason: SALINE FLUSH Last Admin: 06/12/20 21:56 Dose: 10 ml Documented by: Tamsulosin HCl (Tamsulosin Hcl 0.4 Mg Capsule) 0.4 mg PO DAILY@1730 [facility] Last Admin: 06/13/20 16:11 Dose: 0.4 mg Documented by: Discharge Diet: Light diet - advance as tolerated Discharge Activity: Return to Normal Activity, May Not Drive - Until see his PCP Call your doctor if you observe: Fever of 101 or Higher, Coldness, Increased Pain, Numbness or Tingling, Change in Color, Inability to urinate, Inability to have a bowel movement, Shortness of breath, Dizziness, Fainting spells, Swelling in the ankles, Chest pain, Prolonged hiccoughing, Increased palpitations (irregular heartbeat), Calf discomfort, Uncontrolled pain Home Medications: Medications to take at Discharge Multivitamin [Multiple Vitamins] 1 each PO DAILY 09/12/17 Ascorbic Acid [Vitamin C] 500 mg PO DAILY 09/26/17 Atorvastatin Calcium 20 mg PO QHS #30 tab 03/12/20 Lisinopril [Zestril] 10 mg PO DAILY #30 tab 03/12/20 Metformin HCl 1,000 mg PO BID #60 tab 03/12/20 Pen Needle, Diabetic [Pen Needle] 1 ea SUBCUT ACHS #1 box 03/12/20 blood sugar diagnostic See Rx Instructions .ROUTE .MEDSUPPLY #100 ea 03/18/20 levothyroxine 125 mcg tablet 125 mcg PO DAILY #90 tab 05/25/20 Potassium 99 mg PO BID 06/12/20 Insulin Glargine [Lantus SoloStar Pen] 50 units SC BID 06/13/20 Amox/Clavulanate Tablet [Augmentin Tablet] 875 mg PO Q12H #20 tab 06/14/20 Aspirin [Aspirin, Baby] 81 mg PO DAILY@0800 #30 tab.chew 06/14/20 Clopidogrel Bisulfate [Plavix] 75 mg PO DAILY #30 tab 06/14/20 Insulin Aspart [Novolog Flexpen] 35 units SC TIDCM #0 06/14/20 Primary Care Physician: Floyd Ricketts DO [Primary Care Provider] - Please follow up with your Primary Care Physician in: In 1 to 2 weeks Please Follow Up With: Adan Mims MD When: 06/15/2020 Additional Instructions: hold all blood thinners, hold aspirin and hold plavix call urology for outpatient appointment. Medical Necessity - Tobacco Use Smoking Status: Never smoker Tobacco Use: Non-smoker Meaningful Use Info Meaningful Use Diagnoses (Choose all that apply): None applicable Inpatient E&M: 58454 Disch Hosp
[2020-06-14] MEDS: Insulin Lispro 100 UNIT/ML INSULN.PEN 35 UNIT SC (10:05)
--- NOTE | 2020-06-14 10:25 | NURSING ---
Pt being discharged home and does not want this nurse to remove the dressing from the right foot. states he changes the dressing in the evenings and it was changed last PM. states he will shower when he gets home.
--- NOTE | 2020-06-14 10:30 | CASEMGMT ---
RN LUIS Face to Face with patient for initial transition planning/care coordination assessment. RN CM introduced self and role at [facility]. Patient sitting in chair, alert and oriented. Patient willing to participate in assessment and is able to answer all questions appropriately. Care providers, pharmacy, and demographics verified. Patient wishes to discharge home, denies need for home health at this time. Patient states he has no further needs or concerns at this time. CM to follow for discharge planning needs that may arise. PCP: Jamarcus Specialists: Felicita Ness Pharmacy: [facility] Insurance: [employer] Prescription Benefit: yes Living Will/HPOA: yes, Granddaughter Neida Gunter LNOK: grand daughter Living Arrangements: Patient lives alone in a two story home with bed and bath on first floor. Patient has no steps to enter the home. Patient is independent at home. Transportation: self DME/HHC: Patient denies DME or previous HHC. Disposition Plan: Patient to discharge home with family support and follow-up plans in place. Christina MÉNDEZ, RN, CM
--- NOTE | 2020-06-14 10:53 | PHA.DC.MR ---
Pharmacy Service has performed discharge medication reconciliation for this patient. The patient's discharge medication list was reviewed for discrepancies and discrepancies were resolved. Home Medications Multivitamin [Multiple Vitamins] 1 each PO DAILY 09/12/17 Ascorbic Acid [Vitamin C] 500 mg PO DAILY 09/26/17 Atorvastatin Calcium 20 mg PO QHS #30 tab 03/12/20 Lisinopril [Zestril] 10 mg PO DAILY #30 tab 03/12/20 Metformin HCl 1,000 mg PO BID #60 tab 03/12/20 Pen Needle, Diabetic [Pen Needle] 1 ea SUBCUT ACHS #1 box 03/12/20 blood sugar diagnostic See Rx Instructions .ROUTE .MEDSUPPLY #100 ea 03/18/20 levothyroxine 125 mcg tablet 125 mcg PO DAILY #90 tab 05/25/20 Potassium 99 mg PO BID 06/12/20 Insulin Glargine [Lantus SoloStar Pen] 50 units SC BID 06/13/20 Amox/Clavulanate Tablet [Augmentin Tablet] 875 mg PO Q12H #20 tab 06/14/20 Aspirin [Aspirin, Baby] 81 mg PO DAILY@0800 #30 tab.chew 06/14/20 Clopidogrel Bisulfate [Plavix] 75 mg PO DAILY #30 tab 06/14/20 Insulin Aspart [Novolog Flexpen] 35 units SC TIDCM #0 06/14/20
[2020-06-14 13:04] LABS: Pathologist Review Reviewed
--- NOTE | 2020-06-15 15:26 | CASEMGMT ---
FRANCOISE SMITH Discharge Follow-up Phone Call: MANDY: Jeovany Strata: 3 Call Date: 06/15/2020 Discharge Date: 06/14/20 Time of Call: 1526 Duration: 3 min Admitting Diagnosis: Gross Hematuria FRANCOISE SMITH completed follow-up phone call after recent hospitalization. Patient states that he is doing well. Patient had no questions or concerns regarding discharge instructions. Patient had no further questions or concerns at this time.
== END 2020-06-14 10:46 | disposition home or self-care (01) | DRG 696 ==
LOC: ED 20:46 → MS3 20:48
PROVIDERS: Admitting Provider Hospitalist; Emergency Provider Emergency Medicine; PCP Family Medicine; Visit Provider Internal Medicine
DX: R31.0 Gross hematuria (principal); M86.671 Other chronic osteomyelitis, right ankle and foot; D62 Acute posthemorrhagic anemia; I10 Essential (primary) hypertension; E11.42 Type 2 diabetes mellitus with diabetic polyneuropathy; Z79.02 Long term (current) use of antithrombotics/antiplatelets; Z79.4 Long term (current) use of insulin; Z79.899 Other long term (current) drug therapy; Z89.411 Acquired absence of right great toe; Z89.421 Acquired absence of other right toe(s)
CPT/HCPCS: 36415; 51702; 74176; 80048; 81001; 82962; 85014; 85018; 85025; 85610; 85730; 99285; J7040; J7120; A4216; J2405

== ENCOUNTER 2020-07-21 09:17 | Day surgery (SDC) | payer MEDICARE, OTHER, SELFPAY ==
[2020-07-20 09:50] LABS: Thyroid Stim Hormone (TSH) 1.49 uIU/mL (0.358-3.74)
[2020-07-21] VITALS (10 sets, daily range): BP systolic 116–186; BP diastolic 67–89; PULSE 60–88; RESP 18–20; TEMP 36.1–36.8; O2SAT 92–99; BMI 39.9; BMI 41.1
--- NOTE | 2020-07-21 | BLB_PTH ---
PATIENT: EMILEE ARAGON LOC: [facility] U#:[id number] AGE/SX: 70/M ROOM: RE07/21/[address]: Dr. Adan Mims MD : [id number] BED: DIS: 07/22/2020 SPEC #: [id number] RECD: 07/21/20 14:00 STATUS: PADDY YONATAN #: [id number] SONYA: 07/21/20 00:[address]: Adan Mims DEPT: SURGICAL PATHOLOGY RECD BY: Bruce Vaca ENTERED: 07/22/20 07:43 SP TYPE: TURB OTHR DR: Dr. Floyd Ricketts, DO Tissues: Urinary bladder, NOS Procedures: Surgery Specimen Level V HEADER OPERATION: Cysto, TUR bladder, [employer] PRE-OP DIAGNOSIS: Bladder neoplasm TISSUE SUBMITTED: Bladder tissue MICROSCOPIC DIAGNOSIS Bladder tissue, TUR: Noninvasive papillary urothelial carcinoma. See cancer summary in the Comment section. SJ:[email or web address] 07/23/2020 COMMENT BLADDER CANCER (TUR) SUMMARY Procedure: Transurethral resection of bladder (TURBT) Tumor site: Not specified Histologic type: Papillary urothelial carcinoma, noninvasive Associated epithelial lesions: None identified Histologic grade: Low grade (1/3) Tumor configuration: Papillary with focal area of endophytic pattern. Muscularis propria presence: Muscularis propria (detrusor muscle) is present, multiple fragments and free of tumor. Lymphvascular invasion: Not identified Tumor extension: Noninvasive papillary carcinoma Additional pathologic findings: Acute and chronic inflammation. - Focal bacterial colonization. The above summary is in compliance with [employer] [place] [employer] (CAP) Cancer Protocols Checklist and [place] Joint Committee on Cancer (AJCC), Staging Manual, 8th Ed. Case has been reviewed in consultation with Dr. Valdez who concurs with the above diagnosis. IDC:AM MICROSCOPIC DESCRIPTION Slides are reviewed. GROSS DESCRIPTION Received in fixative is one container labeled with the patient's name and designated bladder tissue. The specimen consists of multiple irregular and friable fragments of light johnston soft tissue that in aggregate measure 6 x 6 x 1 cm. The specimen is submitted in 12 cassettes. / AM:jessica 07/22/2020 TC:0 CPT: 65382
[2020-07-21] MEDS: Lactated Ringers 1,000 ML 100 ML IV ×3 (10:07→18:41)
[2020-07-21 10:46] LABS: Bedside Glucose 102 mg/dL (70-110)
--- NOTE | 2020-07-21 11:52 | PCM.HP.STD ---
History of Present Illness Date of Admission: 07/21/20 Chief Complaint: Large bladder tumor The patient is a 70 year old male who was seen in the office he had a very large tumor greater than 5 to 7 cm in size growing in his bladder he has been having gross hematuria so today we can proceed at to the hospital for transurethral section of the bladder tumor he understands is possible it may not be able to resect the entire tumor because how big it is in his obesity and anatomical features. Past Medical History Past Medical History (Chronic Problems): Chronic Problems (Last Reviewed 06/13/20 @ 09:[address] Adan Mims MD) Hypothyroidism (acquired) (Chronic) Ulcer of right foot with fat layer exposed (Chronic) Ulcer of right foot with necrosis of muscle (Chronic) Osteomyelitis (Chronic) Type 2 diabetes mellitus with diabetic polyneuropathy (Chronic) Gangrene of toe of right foot (Chronic) Hallux limitus (Chronic) Chronic ulcer of left foot with fat layer exposed (Chronic) Hammertoe of right foot (Chronic) Hammertoe of left foot (Chronic) Delayed wound healing (Chronic) Cellulitis of right foot (Chronic) HLD (hyperlipidemia) (Chronic) Obesity (BMI 30-39.9) (Chronic) Uncontrolled type II diabetes mellitus (Chronic) PAD (peripheral artery disease) (Chronic) S/P colonoscopy (Chronic) HTN (hypertension) (Chronic) Hypothyroid (Chronic) Diabetes mellitus (Chronic) Medical History: Medical History (Last Reviewed 06/13/20 @ 09:[address] Adan Mims MD) PAD (peripheral artery disease) (Chronic) I73.9 HTN (hypertension) (Chronic) I10 Hypothyroid (Chronic) E03.9 Diabetes mellitus (Chronic) E11.9 Allergies No Known Allergies Allergy (Verified 07/13/20 13:47) Home Medications: Ambulatory Orders Medication Instructions Recorded Multivitamin [Multiple Vitamins] 1 each PO DAILY 09/12/17 Ascorbic Acid [Vitamin C] 500 mg PO DAILY 09/26/17 Atorvastatin Calcium 20 mg PO QHS #30 tab 03/12/20 Lisinopril [Zestril] 10 mg PO DAILY #30 tab 03/12/20 Metformin HCl 1,000 mg PO BID #60 tab 03/12/20 Pen Needle, Diabetic [Pen Needle] 1 ea SUBCUT ACHS #1 box 03/12/20 blood sugar diagnostic See Rx Instructions .ROUTE 03/18/20 .MEDSUPPLY #100 ea levothyroxine 125 mcg tablet 125 mcg PO DAILY #90 tab 05/25/20 Potassium 99 mg PO BID 06/12/20 Insulin Glargine [Lantus SoloStar 50 units SC BID 06/13/20 Pen] Amox/Clavulanate Tablet [Augmentin 875 mg PO Q12H #20 tab 06/14/20 Tablet] Aspirin [Aspirin, Baby] 81 mg PO DAILY@0800 #30 tab.chew 06/14/20 Clopidogrel Bisulfate [Plavix] 75 mg PO DAILY #30 tab 06/14/20 Insulin Aspart [Novolog Flexpen] 35 units SC TIDCM #0 06/14/20 Surgical History: Surgical History (Last Reviewed 06/13/20 @ 09:[address] Adan Mims MD) S/P tonsillectomy (Acute) Z90.89 S/P colonoscopy (Chronic) Z98.890 Surgical History: tonsillectomy, - - Right second toe amputation. Psychiatric History: No pertinent psych hx Smoking Status: Former smoker - *Family History Maternal Family History: Family History (Last Reviewed 06/13/20 @ 09:[address] Adan Mims MD) Father Diabetes Heart disease Hypertension History Items: - - Patient denies any market maternal family history including heart disease, diabetes, cancer and denies any history of her having taken any medications. Paternal Family History: Family History (Last Reviewed 06/13/20 @ 09:[address] Adan Mims MD) Father Diabetes Heart disease Hypertension History Items: Diabetes, Heart Disease, Hypertension Review of Systems Constitutional: Denies: Chills, Fever, Weight Change HEENT: Denies: Head Aches, Sinus Congestion, Sinus Drainage Cardiovascular: Denies: Chest Pain, Palpitations Respiratory: Denies: Cough, Shortness of breath at rest, Sputum production Gastrointestinal: Denies: Abdominal Pain, Nausea, Vomiting Genitourinary: Denies: Dysuria Musculoskeletal: Denies: Joint Pain, Joint Tenderness Skin: Denies: Rash, Wounds Neurological: Denies: Numbness, Tingling, Focal weakness Psychiatric: Denies: Anxiety, Depression, Homicidal Ideations, Suicidal Ideations Hematologic/ Lymphatic: Denies: Easy Bruising, Easy Bleeding VTE Information - Inpt Only VTE Present on Admission: No VTE Mechan Device Prophylaxis: SCD's - Physical Exam Vitals/I&O's: Vital Signs Temp Pulse Resp BP Pulse Ox 97.6 F L 80 18 157/76 H 98 07/21/20 09:53 07/21/20 09:53 07/21/20 09:53 07/21/20 09:53 07/21/20 09:53 Oxygen Delivery Method Room Air Weight: 137.4 kg Body Mass Index (BMI) 39.9 General: Alert, Oriented x3, Cooperative HEENT: Atraumatic, PERRLA, EOMI, Normocephalic Neck: Supple, No JVD, Negative Carotid Bruits Lungs: Clear to auscultation, Normal air movement Cardiovascular: Regular rate, No murmurs Abdomen: Bowel Sounds Present, Soft, Non Tender Extremities: No edema, Capillary Refill Less than 3 Seconds Skin: No rashes, No breakdown Musculoskeletal: No Tenderness to Palpation of Joints or Extremities Neurological: Cranial nerves II-XII grossly intact Psych/Mental Status: Normal Affect, Appropriate Microbiology Past 72 Hours 07/20/20 08:30 Interface Orders SARS-CoV-2 Antigen (Rapid) - Final Laboratory Results 07/21/20 09:53: POC Glucose 102 Current Medications Cefazolin Sodium 3 gm/ Sodium (Chloride) 115 mls @ 150 mls/hr IV PREOP ONE Stop: 07/21/20 12:15 Lactated Ringer's () 1,000 mls @ 100 mls/hr IV .Q10H LIZZY Last Admin: 07/21/20 10:07 Dose: 100 mls/hr Documented by: Assessment/Plan All Active Problems (Last Reviewed 06/13/20 @ 09:[address] Adan Mims MD) Gross hematuria (Acute) S/P tonsillectomy (Acute) Plan to proceed with transurethral resection of the very large bladder tumor hopefully will be able to resect the entire tumor. He may need multiple procedures to cure him of his tumor.
--- NOTE | 2020-07-21 12:41 | DCINST_ITS ---
Discharge Diet: Light diet - advance as tolerated Discharge Activity: May not drive while taking narcotic pain medications. Call your doctor if your incision/area has: Continuous Slow Oozing, Sudden Increased Bleeding, Increased Pain/ Swelling, Increased Redness, Foul Smelling Discharge, Swelling at the incision site Suture Line Care: Avoid Pulling/Pushing, Avoid Pinching/Bending Catheter: Butler to leg bag, Butler to large bag Drain: [place] Allergies/Adverse Reactions: Allergies No Known Allergies Allergy (Verified 07/13/20 13:47) Medications to take at Discharge Multivitamin [Multiple Vitamins] 1 each PO DAILY 09/12/17 Ascorbic Acid [Vitamin C] 500 mg PO DAILY 09/26/17 Atorvastatin Calcium 20 mg PO QHS #30 tab 03/12/20 Lisinopril [Zestril] 10 mg PO DAILY #30 tab 03/12/20 Metformin HCl 1,000 mg PO BID #60 tab 03/12/20 Pen Needle, Diabetic [Pen Needle] 1 ea SUBCUT ACHS #1 box 03/12/20 blood sugar diagnostic See Rx Instructions .ROUTE .MEDSUPPLY #100 ea 03/18/20 levothyroxine 125 mcg tablet 125 mcg PO DAILY #90 tab 05/25/20 Potassium 99 mg PO BID 06/12/20 Insulin Glargine [Lantus SoloStar Pen] 50 units SC BID 06/13/20 Amox/Clavulanate Tablet [Augmentin Tablet] 875 mg PO Q12H #20 tab 06/14/20 Aspirin [Aspirin, Baby] 81 mg PO DAILY@0800 #30 tab.chew 06/14/20 Clopidogrel Bisulfate [Plavix] 75 mg PO DAILY #30 tab 06/14/20 Insulin Aspart [Novolog Flexpen] 35 units SC TIDCM #0 06/14/20 Ciprofloxacin [Cipro] 500 mg PO BID #10 tab 07/21/20 Docusate Sodium [Colace] 100 mg PO DAILY #20 cap 07/21/20 Hydrocodone/Acetaminophen [[place] 5-325 Tablet] 1 each PO Q4H PRN PRN 7 Days #14 tablet 07/21/20 The following prescriptions were given: Ciprofloxacin [Cipro] 500 mg PO BID #10 tab Transmission Status: Pending to [facility] Docusate Sodium [Colace] 100 mg PO DAILY #20 cap Transmission Status: Pending to [facility] Hydrocodone/Acetaminophen [[place] 5-325 Tablet] 1 each PO Q4H PRN PRN 7 Days #14 tablet PRN Reason: Pain 1-10 Or Fever Transmission Status: Sent to [facility] Primary Care Physician: Floyd Ricketts DO [Primary Care Provider] - Test Results: Test results from this visit will be discussed in further detail at your follow- up appointment, if applicable. Please Follow Up With: Adan Mims MD When: please call to make an appointment. Proposed Discharge Date: 07/22/20
--- NOTE | 2020-07-21 12:42 | PCM.OPRPT ---
Report of Operation Date of Procedure: 07/21/20 Pre-Operative Diagnosis: Very large bladder tumor Post-Operative Diagnosis: Transurethral resection of a large bladder tumor Description of Surgical Findings:: Patient presented to the hospital for treatment of a tumor that was found in the bladder with a very large bladder tumor. Patient understands is possible it may not be able to resect the entire tumor. Patient also understands is possible that the patient may need multiple procedures or more invasive procedures to cure him of this cancer. Patient was taken back to the operating room after smooth induction of anesthesia the patient was placed supine on the table. The patient was placed in dorsolithotomy position. The urethra and genitals prepped and draped in usual sterile fashion. I went into the bladder with a 30 degree lens and a cystoscope and identified the tumor the tumor was about 7 centimeters in size and occupying mostly the left side of the bladder. The right and left ureteral orifice were identified. The tumor was involved in the left ureteral orifice ureteral orifice. I then placed the resectoscope and the bladder and resected the entire tumor down to the muscle. I resected the left ureteral orifice as well because it was covered with tumor., No stent was placed and then cauterized the resection base to obtained hemostasis. We then placed the catheter in the bladder and the patient was taken back to the PACU in stable condition. This was a very large tumor on visual inspection it appeared to be that I got all the tumor but it could be invasive also the left ureter orifice was resected. Three-way catheter was put in the bladder and put on continuous irrigation. Type of Anesthesia:: General Drains: [address] - Admit VTE Documentation VTE Present on Admission: No
[2020-07-21 13:05] LABS: Bedside Glucose 77 mg/dL (70-110)
[2020-07-21] MEDS: Insulin Lispro 100 UNIT/ML INSULN.PEN 35 UNIT SC (16:53)
[2020-07-21] MEDS: metFORMIN HCl 1,000 MG Tablet 1000 MG PO (16:53)
[2020-07-21 17:06] LABS: Bedside Glucose 97 mg/dL (70-110)
[2020-07-21] MEDS: Atorvastatin Calcium 20 MG Tablet PO (21:35)
[2020-07-21] MEDS: Ciprofloxacin 400 MG/200 ML BAG 200 MG IV (21:35)
[2020-07-21 21:50] LABS: Bedside Glucose 97 mg/dL (70-110)
[2020-07-22 02:41] VITALS: BMI 41.1
[2020-07-22 03:51] VITALS: BP 159/97; PULSE 82; RESP 18; TEMP 36.7; O2SAT 99
[2020-07-22] MEDS: Lactated Ringers 1,000 ML 100 ML IV (05:50)
[2020-07-22 06:12] LABS: Hematocrit 36.5 % (40-54); Hemoglobin 10.7 g/dL (13.0-16.5); Mean Corp Hgb Conc 29.3 g/dL (32-36); Mean Corpuscular Hgb 24.7 pg (27.0-32.0); Mean Corpuscular Volume 84.3 fL (80-94); Mean Platelet Vol. 9.1 fl (6.2-12.0); Platelet Count 313 K/mm3 (150-450); RBC Distribution Width CV 14.3 % (11.6-14.6); RBC Distribution Width SD 44.2 fl (35.1-43.9); Red Blood Count 4.33 M/mm3 (4.6-6.2); White Blood Count 12.2 K/mm3 (4.4-11.0)
[2020-07-22 06:39] LABS: Anion Gap 4 (5-15); BUN 12 mg/dL (7-18); Calcium,Total 8.6 mg/dL (8.5-10.1); Chloride 103 mmol/L (98-107); EST Glomerular Filtration Rate 102 mL/min (>60); Est Glom Filt Rate - Afr Amer 123 mL/min (>60); Glucose 143 mg/dL (74-106); Potassium 4.3 mmol/L (3.5-5.1); Sodium Level 138 mmol/L (136-145)
[2020-07-22 06:41] VITALS: BMI 41.1
[2020-07-22] MEDS: Levothyroxine 125 MCG Tablet PO (06:58)
[2020-07-22] MEDS: metFORMIN HCl 1,000 MG Tablet 1000 MG PO (08:18)
[2020-07-22] MEDS: Insulin Lispro 100 UNIT/ML INSULN.PEN 35 UNIT SC (08:18)
[2020-07-22] MEDS: Multivitamins,Therapeutic Tablet 1 TABLET PO (08:18)
[2020-07-22 08:27] VITALS: BP 161/70; PULSE 88; RESP 20; TEMP 37; O2SAT 95
[2020-07-22] MEDS: Lisinopril 10 MG Tablet PO (08:27)
[2020-07-22] MEDS: Ciprofloxacin 400 MG/200 ML BAG 200 MG IV (08:58)
--- NOTE | 2020-07-22 11:06 | PHA.DC.MR ---
Pharmacy Service has performed discharge medication reconciliation for this patient. The patient's discharge medication list was reviewed for discrepancies and discrepancies were resolved. Home Medications Multivitamin [Multiple Vitamins] 1 each PO DAILY 09/12/17 Ascorbic Acid [Vitamin C] 500 mg PO DAILY 09/26/17 Atorvastatin Calcium 20 mg PO QHS #30 tab 03/12/20 Lisinopril [Zestril] 10 mg PO DAILY #30 tab 03/12/20 Metformin HCl 1,000 mg PO BID #60 tab 03/12/20 Pen Needle, Diabetic [Pen Needle] 1 ea SUBCUT ACHS #1 box 03/12/20 blood sugar diagnostic See Rx Instructions .ROUTE .MEDSUPPLY #100 ea 03/18/20 levothyroxine 125 mcg tablet 125 mcg PO DAILY #90 tab 05/25/20 Potassium 99 mg PO BID 06/12/20 Insulin Glargine [Lantus SoloStar Pen] 50 units SC BID 06/13/20 Amox/Clavulanate Tablet [Augmentin Tablet] 875 mg PO Q12H #20 tab 06/14/20 Aspirin [Aspirin, Baby] 81 mg PO DAILY@0800 #30 tab.chew 06/14/20 Clopidogrel Bisulfate [Plavix] 75 mg PO DAILY #30 tab 06/14/20 Insulin Aspart [Novolog Flexpen] 35 units SC TIDCM #0 06/14/20 Ciprofloxacin [Cipro] 500 mg PO BID #10 tab 07/21/20 Docusate Sodium [Colace] 100 mg PO DAILY #20 cap 07/21/20 Hydrocodone/Acetaminophen [[place] 5-325 Tablet] 1 ea PO Q4H PRN PRN 7 Days #14 tab 07/21/20
== END 2020-07-22 10:25 | disposition home or self-care (01) ==
LOC: SDC 09:17 → AC 09:20 → MS3 07-22 10:52
PROVIDERS: Anesthesiology; PCP Family Medicine; Referring Provider Urology; Visit Provider Urology
PROC: 0TBB8ZZ Excision of Bladder, Via Natural or Artificial Opening Endoscopic (ICD-10-PCS; CPT 52240; principal; 2020-07-21 11:20)
DX: C67.9 Malignant neoplasm of bladder, unspecified (principal); R31.0 Gross hematuria; R35.0 Frequency of micturition; R35.1 Nocturia; R33.9 Retention of urine, unspecified; Z20.828 Contact with and (suspected) exposure to other viral communicable diseases; E11.42 Type 2 diabetes mellitus with diabetic polyneuropathy; E11.51 Type 2 diabetes mellitus with diabetic peripheral angiopathy without gangrene; I10 Essential (primary) hypertension; E78.5 Hyperlipidemia, unspecified; E03.9 Hypothyroidism, unspecified; E66.9 Obesity, unspecified; Z68.39 Body mass index [BMI] 39.0-39.9, adult; Z79.4 Long term (current) use of insulin; Z79.82 Long term (current) use of aspirin; Z79.899 Other long term (current) drug therapy; Z87.891 Personal history of nicotine dependence
CPT/HCPCS: 52240; 36415; 80048; 82962; 84443; 85027; 87426; 88307; 99251; C9803; J7120; G0463; J0744; J2405

== ENCOUNTER → 2020-11-16 09:41 | Outpatient (CLI) | payer MEDICARE, OTHER, SELFPAY ==
[2020-07-21 14:43] VITALS: BMI 41.1
--- NOTE | 2020-11-16 09:53 | EKG12_ITS ---
Test Reason : PRE OP Blood Pressure : / mmHG Vent. Rate : 075 BPM Atrial Rate : 075 BPM P-R Int : 150 ms QRS Dur : 104 ms QT Int : 378 ms P-R-T Axes : -02 011 055 degrees QTc Int : 422 ms Normal sinus rhythm Normal ECG Confirmed by WADE MERINO, EPI ([id number]), assistant editor FRANKO HARDIN ([id number]) on 11/17/2020 9:06:54 AM Referred By: Adan Mims Confirmed By:EPI OLVERA MD
[2020-11-16 11:12] LABS: Hematocrit 39.1 % (40-54); Hemoglobin 10.8 g/dL (13.0-16.5); Mean Corp Hgb Conc 27.6 g/dL (32-36); Mean Corpuscular Hgb 21.2 pg (27.0-32.0); Mean Corpuscular Volume 76.7 fL (80-94); Mean Platelet Vol. 9.4 fl (6.2-12.0); Platelet Count 428 K/mm3 (150-450); RBC Distribution Width CV 18.4 % (11.6-14.6); RBC Distribution Width SD 49.3 fl (35.1-43.9); White Blood Count 9.8 K/mm3 (4.4-11.0)
[2020-11-16 11:51] LABS: Anion Gap 8 (5-15); BUN 13 mg/dL (7-18); BUN/Creat Ratio 15.8 RATIO (10-20); Calcium,Total 8.9 mg/dL (8.5-10.1); Chloride 107 mmol/L (98-107); Creatinine, Serum 0.82 mg/dL (0.70-1.30); EST Glomerular Filtration Rate 98 mL/min (>60); Est Glom Filt Rate - Afr Amer 119 mL/min (>60); Glucose 104 mg/dL (74-106); Potassium 4.5 mmol/L (3.5-5.1); Sodium Level 139 mmol/L (136-145)
== END ==
PROVIDERS: PCP Family Medicine; Referring Provider Urology; Visit Provider Urology
DX: Z01.812 Encounter for preprocedural laboratory examination (principal); I10 Essential (primary) hypertension; Z03.818 Encounter for observation for suspected exposure to other biological agents ruled out
CPT/HCPCS: 36415; 80048; 85027; 87635; 93005; C9803; U0002

== ENCOUNTER 2021-04-22 12:18 | Day surgery (SDC) | payer MEDICARE, OTHER, SELFPAY ==
[2021-04-21 09:13] LABS: Hematocrit 39.2 % (40-54); Hemoglobin 10.8 g/dL (13.0-16.5); Mean Corp Hgb Conc 27.6 g/dL (32-36); Mean Corpuscular Hgb 20.3 pg (27.0-32.0); Mean Corpuscular Volume 73.7 fL (80-94); Mean Platelet Vol. 9.1 fl (6.2-12.0); POSITIVE MORPHOLOGY YES; Platelet Count 461 K/mm3 (150-450); RBC Distribution Width CV 20.5 % (11.6-14.6); RBC Distribution Width SD 52.7 fl (35.1-43.9); Red Blood Count 5.32 M/mm3 (4.6-6.2); White Blood Count 8.3 K/mm3 (4.4-11.0)
[2021-04-21 09:22] LABS: Prothrombin Time (Protime)PT. 12.9 SECONDS (11.7-14.9)
[2021-04-21 09:26] LABS: Scan Indicated on CBC? Y/N YES- FLAGS NOTED
[2021-04-21 09:37] LABS: Hemoglobin A1c 5.9 % (3.8-5.6)
[2021-04-21 09:51] LABS: AST(SGOT) 17 U/L (15-37); Alanine Aminotransfer ALT/SGPT 32 U/L (16-61); Albumin, Serum 3.6 g/dL (3.2-5.0); Alkaline Phosphatase 85 U/L (45-117); Anion Gap 6 (5-15); BUN 13 mg/dL (7-18); BUN/Creat Ratio 15.7 RATIO (10-20); Calcium,Total 9.2 mg/dL (8.5-10.1); Chloride 107 mmol/L (98-107); Creatinine, Serum 0.83 mg/dL (0.70-1.30); EST Glomerular Filtration Rate 98 mL/min (>60); Est Glom Filt Rate - Afr Amer 118 mL/min (>60); Globulin 4.5 g/dL (2.2-4.2); Glucose 155 mg/dL (74-106); Potassium 4.5 mmol/L (3.5-5.1); Protein, Total 8.1 g/dL (6.4-8.2); Sodium Level 141 mmol/L (136-145); Thyroid Stim Hormone (TSH) 0.93 uIU/mL (0.358-3.74)
[2021-04-22] VITALS (7 sets, daily range): BP systolic 155–171; BP diastolic 74–83; PULSE 62–84; RESP 16–18; TEMP 36.3–36.6; O2SAT 92–100; BMI 35.6
--- NOTE | 2021-04-22 | BLB_PTH ---
PATIENT: EMILEE ARAGON LOC: [facility] U#:[id number] AGE/SX: 70/M ROOM: RE04/22/[address]: Dr. Adan Mims MD : 1950 BED: DIS: 04/22/2021 SPEC #: [id number] RECD: 04/22/21 15:33 STATUS: PADDY REBony #: [id number] SONYA: 04/22/21 00:[address]: Adan Mims DEPT: SURGICAL PATHOLOGY RECD BY: Bruce Vaca ENTERED: 04/25/21 07:49 SP TYPE: TURB OTHR DR: MD Dr. Floyd Stokes DO Tissues: Urinary bladder, NOS Procedures: Surgery Specimen Level V HEADER OPERATION: Cysto, TUR bladder, Olympus, Richie C PRE-OP DIAGNOSIS: Malignant neoplasm of bladder, hematuria TISSUE SUBMITTED: Bladder tumor MICROSCOPIC DIAGNOSIS Bladder tumor, TUR: Papillary urothelial carcinoma. See cancer summary in the comment section. SJ:rg 04/26/2021 COMMENT BLADDER CANCER (TUR) SUMMARY Procedure: Transurethral resection of bladder (TURBT) Tumor site: Not specified Histologic type: Papillary urothelial carcinoma, noninvasive Associated epithelial lesions: None identified Histologic grade: Low-grade (1/3) Tumor configuration: Papillary Muscularis propria presence: muscularis propria (detrusor muscle) is not present. Lymphvascular invasion: Not identified Tumor extension: Noninvasive papillary carcinoma Additional pathologic findings: None The above summary is in compliance with [employer] (CAP) Cancer Protocols Checklist and [place] Joint Committee on Cancer (AJCC), Staging Manual, 8th Ed. Case has been reviewed in consultation with Dr. Valdez who concurs with the above diagnosis. IDC:AM Please make reference to previous specimen ([id number]) bladder tissue, TUR with diagnosis of ?noninvasive papillary urothelial carcinoma.? MICROSCOPIC DESCRIPTION Slides are reviewed. GROSS DESCRIPTION Received in fixative is one container labeled with the patient's name and designated bladder tumor. The specimen consists of multiple irregular fragments of johnston soft tissue that in aggregate measure 0.4 x 0.3 x 0.1 cm. The specimen is totally submitted in one cassette. / TORREY:jessica 04/25/21 TC:0 CPT: 71518
[2021-04-22] MEDS: Lactated Ringers 1,000 ML 100 ML IV (12:52)
[2021-04-22 13:00] LABS: Bedside Glucose 124 mg/dL (70-110)
--- NOTE | 2021-04-22 14:46 | PCM.DC ---
Discharge Instructions Diet Discharge Diet: No restrictions Activity Discharge Activity: May Not Drive (while taking narcotic pain medications.) Dressing / Incision Call your doctor if you observe: Fever of 101 or Higher Follow Up Care Please Follow Up With: Adan Mims MD When: Call [phone] for an appointment Test Results: Test results from this visit will be discussed in further detail at your follow-up appointment, if applicable. Discharge Plan Admission Primary Reason for Your Visit: Tranurethral resection of many bladder tumors Attending Provider: Adan Mims Primary Care Provider: Floyd Ricketts Consulting Providers: Mukesh Orozco Instructions Patient Instructions: Discharge Instructions for ... Discharge Orders/Prescriptions Prescriptions: New ciprofloxacin HCl [Cipro] 500 mg tablet 500 mg PO BID Qty: 10 RF: 0 Continued (DME) OneTouch Verio test strips Strip See Rx Instructions .ROUTE .MEDSUPPLY Qty: 100 RF: 12 ascorbic acid (vitamin C) 500 MG capsule 500 mg PO DAILY RF: 0 (DME) pen needle, diabetic 1 EACH needle 1 ea subcut ACHS Qty: 1 RF: 0 potassium 99 MG tablet 99 mg PO BID RF: 0 geriatric oacwztes-pagb-qcas Tablet 1 tab PO DAILY RF: 0 atorvastatin 20 MG tablet 20 mg PO QHS RF: 0 clopidogrel 75 MG tablet 75 mg PO DAILY RF: 0 metformin 1,000 MG tablet 1,000 mg PO BID RF: 0 levothyroxine 125 mcg tablet 125 mcg PO DAILY RF: 0 lisinopril 10 MG tablet 10 mg PO DAILY RF: 0 Novolin R Regular U-100 Insuln 100 unit/mL solution 35 unit SC BID RF: 0 Novolin N NPH U-100 Insulin 100 unit/mL suspension 50 unit SC BID RF: 0 aspirin 81 MG tablet,chewable 81 mg PO DAILY@0800 RF: 0 Referrals / Follow Up: Adan Mims MD [STAFF PHYSICIAN] - Floyd Ricketts DO [Primary Care Provider] - Disposition Disposition (needs filled in before D/C Order can be placed): Home, Self Care
--- NOTE | 2021-04-22 14:47 | PCM.OPRPT ---
Report of Operation Date of Procedure: 04/22/21 Pre-Operative Diagnosis: Multiple bladder tumors large Post-Operative Diagnosis: Same Surgery/Procedure Performed:: Transurethral resection of multiple tumors and instillation of mitomycin-C Description of Surgical Findings:: This is a 70-year-old male who underwent resection of a large mass within the bladder he completed BCG therapy and then recent cystoscopy demonstrated recurrence within the bladder multiple tumors within the bladder covered throughout the bladder and multiple locations because of this I recommend we taken back to surgery and cauterize and resect these tumors. Patient taken back to the operating room at the smooth induction of general anesthesia he was placed in dorsolithotomy position. The penis and testicles were prepped and draped in usual sterile fashion. First I went in the bladder with a 21 Hebrew rigid cystourethroscope we mapped out all the tumors once the tumors were all mapped out then went in with a resectoscope and resected each tumor 1 by one down to the base cauterized most of the tumors a very little specimen with the we did get some tissue for specimen so very little tissue specimen actually since most of the tumor was cauterized using the bipolar cautery as we resected the tumor these tumors were located throughout the bladder had to use bluelight and white light cystoscopy to make sure I got all the tumors. Then there was some tumors up in the dome of the bladder there is a very difficult to reach so I switched over the flexible cystoscope to reach his tumors with electrocautery and then cauterized his tumors I then used a rigid cystoscope to reach these tumors again once I did cauterize all the tumors to make sure that I had every visible tumor cauterized bladder was drained we placed a catheter in the bladder and then placed mitomycin-C in the bladder and we clamped the catheter patient sent back to the PACU in good condition. Patient will have an hour and they'll indwell the mitomycin-C and then the catheter be removed. Type of Anesthesia: General Drains: rodrigez 18 fr Admit VTE Documentation VTE Present on Admission: No VTE Mechan Device Prophylaxis: SCD's VTE Pharm Prophylaxis ordered?: No
[2021-04-22 15:51] LABS: Bedside Glucose 106 mg/dL (70-110)
== END 2021-04-22 17:11 | disposition home or self-care (01) ==
LOC: SDC 12:18 → AC 12:19
PROVIDERS: Anesthesiology; PCP Family Medicine; Referring Provider Urology; Visit Provider Urology
PROC: 0TBB8ZX Excision of Bladder, Via Natural or Artificial Opening Endoscopic, Diagnostic (ICD-10-PCS; CPT 52250; principal; 2021-04-22 14:55)
DX: C67.8 Malignant neoplasm of overlapping sites of bladder (principal); E11.9 Type 2 diabetes mellitus without complications; R31.9 Hematuria, unspecified; Z20.822 Contact with and (suspected) exposure to COVID-19; I10 Essential (primary) hypertension; E03.9 Hypothyroidism, unspecified; Z79.84 Long term (current) use of oral hypoglycemic drugs; Z79.02 Long term (current) use of antithrombotics/antiplatelets; Z79.82 Long term (current) use of aspirin; Z79.890 Hormone replacement therapy; Z79.899 Other long term (current) drug therapy
CPT/HCPCS: 52224; 51720; 00910; 36415; 80048; 80076; 82962; 83036; 84443; 85027; 85610; 85730; 87426; 88307; C9803; J7120; J2405; J3490; J9280

== ENCOUNTER → 2022-05-18 | Outpatient (CLI) | payer MEDICARE, SELFPAY ==
[2022-05-18 12:29] LABS: Absolute Lymphocyte Count 1.96 X10^3/uL (0.83-4.51); Absolute Neutrophil Count 6.8 X10^3/uL (2.0-7.7); Basophil# 0.03 X10^3/uL; Basophil% 0.3 % (0-1); Eosinophil# 0.11 X10^3/uL; Eosinophils% 1.1 % (0-5); Hemoglobin 15.9 g/dL (13.0-16.5); Lymphocyte # 1.96 X10^3/ul (0.83-4.51); Lymphocyte % 19.9 % (19-41); Mean Corp Hgb Conc 32.4 g/dL (32-36); Mean Corpuscular Hgb 29.2 pg (27.0-32.0); Mean Corpuscular Volume 90.1 fL (80-94); Mean Platelet Vol. 9.9 fl (6.2-12.0); Monocyte# 0.96 X10^3/uL; Monocyte% 9.7 % (0-10); NRBC Flagged by Analyzer 0 % (0-5); Neutrophil # 6.78 X10^3/uL (2.7-7.7); Neutrophil % 68.7 % (47-70); Platelet Count 285 K/mm3 (150-450); RBC Distribution Width CV 14.8 % (11.6-14.6); RBC Distribution Width SD 48.4 fl (35.1-43.9); Red Blood Count 5.44 M/mm3 (4.6-6.2); White Blood Count 9.9 K/mm3 (4.4-11.0)
[2022-05-18 12:52] LABS: ALB/GLOB Ratio 0.9 RATIO (0.9-2.4); AST(SGOT) 34 U/L (15-37); Alanine Aminotransfer ALT/SGPT 59 U/L (16-61); Albumin, Serum 3.5 g/dL (3.2-5.0); Alkaline Phosphatase 84 U/L (45-117); Anion Gap 9 (5-15); BUN 11 mg/dL (7-18); BUN/Creat Ratio 12.9 RATIO (10-20); Calcium,Total 9.4 mg/dL (8.5-10.1); Chloride 106 mmol/L (98-107); Cholesterol 68 mg/dL (200); Creatinine, Serum 0.85 mg/dL (0.70-1.30); EST Glomerular Filtration Rate 94 mL/min (>60); Est Glom Filt Rate - Afr Amer 114 mL/min (>60); Globulin 4.1 g/dL (2.2-4.2); Glucose 118 mg/dL (74-106); High Density Lipoprotein 25 mg/dL; PSA,Total - Annual Screen 0.93 ng/mL (0.00-4.00); Potassium 3.8 mmol/L (3.5-5.1); Protein, Total 7.6 g/dL (6.4-8.2); Sodium Level 142 mmol/L (136-145); Thyroid Stim Hormone (TSH) 1.16 uIU/mL (0.358-3.74); Triglycerides 177 mg/dL; Very Low Density Lipoprotein 35 mg/dL (5-40)
[2022-05-18 12:56] LABS: Hemoglobin A1c 6.4 % (3.8-5.6)
== END | disposition home or self-care (01) ==
PROVIDERS: PCP Family Medicine; Visit Provider Family Medicine
DX: E11.49 Type 2 diabetes mellitus with other diabetic neurological complication (principal); E03.9 Hypothyroidism, unspecified; Z12.5 Encounter for screening for malignant neoplasm of prostate
CPT/HCPCS: 36415; 80053; 80061; 83036; 84153; 84443; 85025; G0103

== ENCOUNTER 2024-06-10 06:49 | Inpatient (IN) | payer MEDICARE, SELFPAY ==
[2024-06-10] VITALS (18 sets, daily range): BP systolic 138–193; BP diastolic 64–82; PULSE 78–122; RESP 16–18; TEMP 36.1–37.2; O2SAT 91–100; BMI 39.2; BMI 38.9; BMI 39.0
--- NOTE | 2024-06-10 | BON_PTH ---
PATIENT: EMILEE ARAGON LOC: [facility] U#:[id number] AGE/SX: 74/M ROOM: [facility] RE06/10/[address]: Dr. Floyd Shah DO : 1950 BED: 1 DIS: 06/19/2024 SPEC #: [id number] RECD: 06/10/24 18:17 STATUS: PADDY REQ #: [id number] SONYA: 06/10/24 00:[address]: Sylvain Ruiz DEPT: SURGICAL PATHOLOGY RECD BY: Bruce Vaca ENTERED: 06/11/24 12:24 SP TYPE: Bone OTHR DR: Dr. Sylvain Ruiz, DPM DO Dr. Floyd Lane, DO Dr. Kyle Rowland MD Tissues: A - Bone of foot, NOS B - Bone of foot, NOS Procedures: Decalcification bone/plaque Surgery Specimen Level III Comments: @ Ordering doctor for DEC edited from to @ by KELLY at 06/11/24 4448 @ Ordering doctor for III edited from to @ by KELLY at 06/11/24 1583 @ Submitting doctor edited from to @ by KELLY at 06/11/24 [id number] HEADER OPERATION: Debridement soft tissue and bone, 5th ray amputation PRE-OP DIAGNOSIS: Diabetic ulcer of left foot, acute osteomyelitis of left foot, type 2 diabetes mellulitis with foot ulcer, other specified peripheral vascular diseases, type 2 diabetes mellulitis with diabetic polyneuropathy, gangrene, not elsewhere classified TISSUE SUBMITTED: A- Bone of left 5th metatarsal clearance fragment, B- Amputated left 5th ray MICROSCOPIC DIAGNOSIS A. Bone of left 5th metatarsal, clearance fragment, biopsy: Reparative and reactive change. No evidence of acute osteomyelitis. B. 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 Bone with acute osteomyelitis. AMJennifer 06/16/2024 MICROSCOPIC DESCRIPTION Slides are reviewed. GROSS DESCRIPTION A. Received in fixative is one container labeled with the patient's name and designated Bone of left 5th metatarsal. The specimen consists of multiple irregular fragments of johnston bone measuring in aggregate 1.0 x 0.3 x 0.2cm. The specimen is submitted in its entirety in one cassette after decalcification. B. Received in fixative is one container labeled with the patient's name and designated Amputated left 5th ray. The specimen consists of multiple irregular fragments of bone, skin, soft tissue, and toe ranging in size from 1.5cm to 8.5cm in greatest dimension. An ulcer is present on the lateral aspect of the 5th toe that is johnston-gutiérrez in color and measures 4.6 x 3.5 x 0.5cm. Set Designer sections are submitted in four cassettes after decalcification as follows: 1&2- skin and soft tissue from area of ulcer, 3- grayish-johnston bone after decalcification, 4- distal toe with skin, soft tissue and bone after decalcification . SERENA/ 06/11/2024 TC:2 CPT:17215n6,[id number]
--- NOTE | 2024-06-10 07:15 | ED.VIS.LOWEX ---
HPI History of Present Illness Chief Complaint: Lower Extremity Injury Informant: patient Narrative Narrative: 74-year-old diabetic male with history of peripheral vascular disease presenting to the emergency room with wound to the left foot. Patient states he noticed it 3 to 4 days ago. He has been washing it with a aluminum based soap and then applying bacitracin. He notes he has had prior toes removed from the right foot about 10 years ago. He denies any fevers. He takes Plavix and aspirin. He notes diabetic neuropathy and states he really does not feel anything with his feet. [facility] Medical History Wears glasses Bladder disease High cholesterol Easy bruising Former smoker Neuropathy History of edema Leg cramps Family history of stent PAD (peripheral artery disease) HTN (hypertension) Hypothyroid Diabetes mellitus Home Medications ?Medication ?Instructions ?Recorded ?Last Taken ?Type ascorbic acid (vitamin C) 500 mg 500 mg PO DAILY supplement 09/26/17 07/21/20 08:00 History capsule pen needle, diabetic 29 gauge x ##1 03/12/20 Unknown Rx 1/2 blood sugar diagnostic (OneTouch #100 ea 03/18/20 Unknown Rx Verio test strips) potassium 99 mg tablet 99 mg PO BID supplement 06/12/20 06/12/20 History aspirin 81 mg chewable tablet 81 mg PO DAILY@0800 blood thinner 04/18/21 Unknown History atorvastatin 20 mg tablet 20 mg PO QHS Cholesterol 04/18/21 Unknown History clopidogrel 75 mg tablet 75 mg PO DAILY blood thinner 04/18/21 Unknown History geriatric [id number] 1 tab PO DAILY 04/18/21 Unknown History insulin NPH isoph U-100 human 100 50 unit subcut BID blood glucose 04/18/21 Unknown History unit/mL subcutaneous suspension (Novolin N NPH U-100 Insulin isophane) insulin regular human 100 unit/mL 35 unit subcut BID blood glucose 04/18/21 Unknown History injection solution (Novolin R Regular U-100 Insulin) levothyroxine 125 mcg tablet 125 mcg PO DAILY thyroid 04/18/21 Unknown History lisinopril 10 mg tablet 10 mg PO DAILY BP 04/18/21 Unknown History metformin 1,000 mg tablet 1,000 mg PO BID blood glucose 04/18/21 Unknown History Allergy/AdvReac Type Severity Reaction Status Date / Time No Known Allergies Allergy Verified 06/10/24 06:49 Family History Father Diabetes Heart disease Hypertension Surgical History History of amputation of toe History of transurethral destruction of bladder lesion S/P tonsillectomy S/P colonoscopy Social History Smoking Status: Former smoker ROS ROS ED Constitutional Constitutional ED: Denies chills or weight loss Eyes Eyes: Denies change in vision or diplopia ENT ENT ED: Denies ear pain, rhinorrhea or sore throat Cardiovascular Cardiovascular: Reports racing heartbeat; Denies chest pain, orthopnea or palpitations Respiratory/Chest Respiratory/Chest: Denies cough, dyspnea or orthopnea Gastrointestinal Gastrointestinal: Denies abdominal pain, diarrhea, nausea or vomiting Genitourinary Genitourinary ED: Denies dysuria, hematuria or urinary frequency Musculoskeletal Musculoskeletal: Denies arthralgias or myalgias Integumentary Reports other Details: Wound left foot ; Denies abscess or rash Neurologic Neurologic: Denies headache(s) or weakness Psychiatric Psychiatric: Denies anxiety, depression, suicidal ideation or suicidal thoughts Endocrine Endocrinology: Denies polydipsia, polyphagia or polyuria Allergic/Immunologic Allergic/Immunologic ED: Denies mouth swelling, tongue swelling or urticaria EXAM Physical Exam Narrative Exam Narrative: Very strong foul smell from the wound/room Const Vital Signs: 06/10/24 06:50 06/10/24 06:52 06/10/24 08:01 Temperature 98.7 F 98.7 F 98.9 F Temperature Source Oral Oral Oral Pulse Rate 122 H 115 H 99 Respiratory Rate 18 18 18 Blood Pressure 193/82 H 185/76 H Blood Pressure Mean 119 112 Pulse Ox 96 94 97 Oxygen Delivery Method Room Air Room Air Room Air 06/10/24 08:49 06/10/24 09:10 Temperature 98.9 F 98.9 F Temperature Source Oral Pulse Rate 93 91 Respiratory Rate 16 16 Blood Pressure 160/73 H 160/64 H Blood Pressure Mean 102 96 Pulse Ox 98 100 Oxygen Delivery Method Room Air Positive well nourished, well developed and obese General Appearance ED: well developed and NAD Nutritional Appearance: obese HEENT Reports normocephalic, head/scalp atraumatic and moist mucous membranes Eyes PERRL and EOMs intact bilaterally Neck no lymphadenopathy, supple and no JVD Resp normal respiratory effort and clear to auscultation bilaterally Cardio regular rate, regular rhythm and no murmurs Rate: tachycardic GI normal to inspection, nondistended, normoactive bowel sounds and non-tender Palpation: soft Back/Spine no CVA tenderness and normal ROM Extremity General Extremety ED: Yes edema General Extremity: edema bilateral lower extremity Details: mild Neuro oriented x3 and CN's II-XII intact bilaterally Sensorium / Orientation: alert Motor Exam: strength 5/5 throughout Psych mental status grossly normal Mood & Affect: Negative for depressed or tearful Skin no rashes or lesions noted Skin Narrative: Lateral aspect of the left foot demonstrates a ulcer measuring 6 x 5 centimeters. There is surrounding erythema extending onto the dorsum of the foot and onto the little and fourth toes. There is exposed muscle. There appears to be multiple hairs coming out of the wound. Sepsis Attestation Sepsis Alert: Yes Date exam was performed: 06/10/24 Time exam was performed: 07:30 Possible Source of Sepsis: Bone/joint and Skin/soft tissue Sepsis Organ Dysfunction Criteria Present: Lactic Acid > 2 mmol/L Supportive Findings: Lactic acid elevation may be due to infection but also due to his metformin use. Clinically the patient appears well with no evidence of hypotension/hypoperfusion. Fluid Resuscitation Fluid resuscitation indicated?: Yes Fluid Resuscitation ordered: Lesser volume fluid bolus ordered (Due to volume overload status) Amount of fluid ordered: 2,000 Reason for lesser fluid bolus:: Concern for fluid overload Sepsis Note Date exam was performed: 06/10/24 Time exam was performed: 08:46 Sepsis Attestation: Sepsis re-evaluation was performed (Patient mentating normally. Heart rate is down. Blood pressure stable. Perfusing normally.) MDM MDM MDM Narrative Medical decision making narrative: Differential diagnosis includes but not limited to diabetic foot ulcer cellulitis osteomyelitis bacteremia sepsis My independent interpretation the plain films left foot is acute osteomyelitis of the fifth metatarsal and proximal phalanx of the fifth toe. White count is elevated 17.5 hemoglobin 13.3 platelet count of 541. Coags are normal. LFTs within normal limits lipase is normal. Lactic acid is elevated 3.3 glucose of 180 creatinine 0.83 CO2 of 23 and anion gap of 9. Blood cultures were obtained in addition to aerobic and anaerobic cultures of the foot. Patient received vancomycin ceftriaxone and Flagyl. I spoke with Dr. Ruiz from foot and ankle. The patient has seen his group in the past. He would like to keep the patient n.p.o. and try to get him into surgery today. I will speak with the hospitalist regarding admission. History & Record Review Discussion w/independent historian: Patient Additional record(s) reviewed:: Prior inpatient record, Prior ED visit and Prior labs Lab Data Attestation: I reviewed the patient's lab results. Labs: Laboratory Results - last 24 hr 06/10/24 07:00 WBC 17.5 H RBC 4.62 Hgb 13.3 Hct 41.2 MCV 89.2 MCH 28.8 MCHC 32.3 RDW Std Deviation 45.4 H RDW Coeff of Nyla 14.0 Plt Count 541 H MPV 8.6 Immature Gran % (Auto) 1.000 H Neut % (Auto) 82.0 H Lymph % (Auto) 8.5 L [place] % (Auto) 7.8 Eos % (Auto) 0.4 Baso % (Auto) 0.3 Absolute Neuts (auto) 14.4 H Absolute Lymphs (auto) 1.49 Nucleated RBC % 0 PT 13.3 INR 1.0 APTT 35.6 Sodium 135 L Potassium 4.1 Chloride 103 Carbon Dioxide 23.0 Anion Gap 9 BUN 8 Creatinine 0.83 Estim Creat Clear Calc 112.58 Est GFR (MDRD) Af Amer 117 Est GFR (MDRD) Non-Af 97 BUN/Creatinine Ratio 9.7 L Glucose 180 H Lactic Acid 3.3 H* Calcium 9.0 Total Bilirubin 0.50 Direct Bilirubin 0.18 AST 17 ALT 34 Alkaline Phosphatase 58 Troponin I High Sens 9 Total Protein 7.9 Albumin 2.5 L Globulin 5.4 H Lipase 57 Radiography Diagnostic Testing: Clinical Impression(s) from Imaging Studies Foot X-Ray 06/10/24 07:44 IMPRESSION: Ulcer near the fifth metatarsophalangeal joint with suspected osteomyelitis of the head of the fifth metatarsal bone and the base of the fifth proximal phalanx. Electronically Signed: Leo Arreola MD at 8:21 EST , EKG Initial EKG: Attestation: I personally reviewed and interpreted this EKG as follows: Comments: Sinus tachycardia ventricular rate of 103 bpm Management Discussion w/another healthcare provider: Hospitalist and Supervisor Sample (Dr Ruiz) Discharge Plan Dx/Rx/DC Orders Clinical Impression: Acute osteomyelitis of left foot, Diabetic ulcer of left foot, Type 2 diabetes mellitus with diabetic polyneuropathy, HTN (hypertension), PAD (peripheral artery disease), Acidosis, lactic Disposition Disposition: Acute Care Hospital [facility]
[2024-06-10 07:24] LABS: Absolute Lymphocyte Count 1.49 X10^3/uL (0.83-4.51); Absolute Neutrophil Count 14.4 X10^3/uL (2.0-7.7); Basophil# 0.06 X10^3/uL; Basophil% 0.3 % (0-1); Eosinophil# 0.07 X10^3/uL; Eosinophils% 0.4 % (0-5); Hematocrit 41.2 % (40-54); Hemoglobin 13.3 g/dL (13.0-16.5); Lymphocyte # 1.49 X10^3/ul (0.83-4.51); Lymphocyte % 8.5 % (19-41); Mean Corp Hgb Conc 32.3 g/dL (32-36); Mean Corpuscular Hgb 28.8 pg (27.0-32.0); Mean Corpuscular Volume 89.2 fL (80-94); Mean Platelet Vol. 8.6 fl (6.2-12.0); Monocyte# 1.37 X10^3/uL; Monocyte% 7.8 % (0-10); NRBC Flagged by Analyzer 0 % (0-5); Neutrophil # 14.38 X10^3/uL (2.7-7.7); Platelet Count 541 K/mm3 (150-450); RBC Distribution Width SD 45.4 fl (35.1-43.9); Red Blood Count 4.62 M/mm3 (4.6-6.2); White Blood Count 17.5 K/mm3 (4.4-11.0)
[2024-06-10 07:43] LABS: AST(SGOT) 17 U/L (15-37); Alanine Aminotransfer ALT/SGPT 34 U/L (16-61); Albumin, Serum 2.5 g/dL (3.2-5.0); Alkaline Phosphatase 58 U/L (45-117); Anion Gap 9 (5-15); BUN 8 mg/dL (7-18); BUN/Creat Ratio 9.7 RATIO (10-20); Bilirubin, Direct 0.18 mg/dL (0.00-0.30); Chloride 103 mmol/L (98-107); Creatinine, Serum 0.83 mg/dL (0.70-1.30); EST Glomerular Filtration Rate 97 mL/min (>60); Est Glom Filt Rate - Afr Amer 117 mL/min (>60); Estimated Creatinine Clearance 112.58 ml/min; Globulin 5.4 g/dL (2.2-4.2); Glucose 180 mg/dL (74-106); Lipase 57 U/L (13-75); Potassium 4.1 mmol/L (3.5-5.1); Protein, Total 7.9 g/dL (6.4-8.2); Sodium Level 135 mmol/L (136-145); Troponin-I HS 9 pg/mL (3.0-78.0)
[2024-06-10 07:44] LABS: Lactic Acid 3.3 mmol/L (0.4-1.9)
--- NOTE | 2024-06-10 07:44 | RAD_ITS ---
STUDY: X-RAY - LEFT FOOT CLINICAL: Male, 74 years old. infection TECHNIQUE: 3 view(s) of the foot. COMPARISON: None. FINDINGS: Normal talus, calcaneus, and tarsal bones. Normal visualized subtalar, talonavicular, calcaneocuboid, tarsal and tarsometatarsal articulations. Normal metatarsi. Normal metatarsophalangeal joint of the great toe. Normal tibial and fibular sesamoid bones. Normal interphalangeal joint of the great toe. Normal phalanges of the great toe. Normal second through fifth metatarsophalangeal joints. Normal interphalangeal joints and phalanges of the lesser toes. Radiolucencies near the fifth metatarsophalangeal joint worrisome for an ulcer. Radiolucency of the tibial aspect of the head of the fifth metatarsal bone and the base of the fifth proximal phalanx worrisome for osteomyelitis. RAD/Foot min 3 Views IMPRESSION: Ulcer near the fifth metatarsophalangeal joint with suspected osteomyelitis of the head of the fifth metatarsal bone and the base of the fifth proximal phalanx. Electronically Signed: Leo Arreola MD at 8:21 EST ,
[2024-06-10] MEDS: metroNIDAZOLE 500 MG/100 ML BAG 100 MG IV (07:49)
[2024-06-10] MEDS: Ceftriaxone 2 GM in 0.9% Normal Saline (50mL MB+) 50 ML IV (07:49)
[2024-06-10] MEDS: Vancomycin HCl 2,000 MG in 0.9% Normal Saline (500mL Bag) 500 ML 250 MG IV ×2 (07:55→21:22)
[2024-06-10] MEDS: 0.9% Normal Saline (1000mL) 1,000 ML 999 ML IV ×2 (07:55)
[2024-06-10 08:11] LABS: Prothrombin Time (Protime)PT. 13.3 SECONDS (11.7-14.9)
[2024-06-10 08:12] LABS: Partial Thromboplast Time 35.6 Seconds (24.1-36.2)
--- NOTE | 2024-06-10 09:32 | CON.PCM_ITS ---
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 Reviewed diagnostic data. Given findings we discussed OR left foot debridement of all nonviable, infected and necrotic soft tissue and bone with left 5th ray amputation. He agreed. We will add on for today, he is going to be admitted, and also on IV antibiotic therapy. Noninvasive lower extremity arterial studies will be ordered. Discussed with Dr. Cazares and Dr. Shah. Thank you for consultation. HPI Consult Data Date of Consult: 06/10/24 HPI Narrative Reason for Consultation: Left foot infection HPI Narrative: EMILEE ARAGON, is a 74 M who presents with necrotic oderous ulceration left foot. He relates he has developed an ulcer, he has diabetes with neuropathy with minimal feeling in feet. 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 He also has history of peripheral vascular disease. He presented to ER today due to worsening of left foot ulceration, appears infected. Left foot xrays show destructive changes to 5th metatarsal, WBC is elevated. Plans are for him to be admitted. I was consulted from the emergency room. [facility] Medical History Wears glasses Bladder disease High cholesterol Easy bruising Former smoker Neuropathy History of edema Leg cramps Family history of stent PAD (peripheral artery disease) HTN (hypertension) Hypothyroid Diabetes mellitus Home Medications ?Medication ?Instructions ?Recorded ?Last Taken ?Type ascorbic acid (vitamin C) 500 mg 500 mg PO DAILY supplement 09/26/17 07/21/20 08:00 History capsule pen needle, diabetic 29 gauge x ##1 03/12/20 Unknown Rx 1/2 blood sugar diagnostic (OneTouch #100 ea 03/18/20 Unknown Rx Verio test strips) potassium 99 mg tablet 99 mg PO BID supplement 06/12/20 06/12/20 History aspirin 81 mg chewable tablet 81 mg PO DAILY@0800 blood thinner 04/18/21 Unknown History atorvastatin 20 mg tablet 20 mg PO QHS Cholesterol 04/18/21 Unknown History clopidogrel 75 mg tablet 75 mg PO DAILY blood thinner 04/18/21 Unknown History geriatric [id number] 1 tab PO DAILY 04/18/21 Unknown History insulin NPH isoph U-100 human 100 50 unit subcut BID blood glucose 04/18/21 Unknown History unit/mL subcutaneous suspension (Novolin N NPH U-100 Insulin isophane) insulin regular human 100 unit/mL 35 unit subcut BID blood glucose 04/18/21 Unknown History injection solution (Novolin R Regular U-100 Insulin) levothyroxine 125 mcg tablet 125 mcg PO DAILY thyroid 04/18/21 Unknown History lisinopril 10 mg tablet 10 mg PO DAILY BP 04/18/21 Unknown History metformin 1,000 mg tablet 1,000 mg PO BID blood glucose 04/18/21 Unknown History Allergy/AdvReac Type Severity Reaction Status Date / Time No Known Allergies Allergy Verified 06/10/24 06:49 Family History Father Diabetes Heart disease Hypertension Surgical History History of amputation of toe History of transurethral destruction of bladder lesion S/P tonsillectomy S/P colonoscopy Social History Smoking Status: Former smoker Physical Exam Const alert, oriented x3 and no apparent distress Constitutional Narrative: Left foot with large necrotic wet ulceration down to bone with significant maloder lateral foot at level of 5th ray, there is edema, erythema, and drainage consistent with infection. CFT < 2 seconds to toes bilateral, no open lesions right foot. Significant decreased sensation to left foot c/w his hx of peripheral neuropathy, there is no POP or pain on ROM to foot. Lab / Micro Data 06/10/24 07:00 06/10/24 07:00 Labs: Laboratory Results - last 24 hr 06/10/24 07:00: WBC 17.5 H, RBC 4.62, Hgb 13.3, Hct 41.2, MCV 89.2, MCH 28.8, MCHC 32.3, RDW Std Deviation 45.4 H, RDW Coeff of Nyla 14.0, Plt Count 541 H, MPV 8.6, Immature Gran % (Auto) 1.000 H, Neut % (Auto) 82.0 H, Lymph % (Auto) 8.5 L, [place] % (Auto) 7.8, Eos % (Auto) 0.4, Baso % (Auto) 0.3, Absolute Neuts (auto) 14.4 H, Absolute Lymphs (auto) 1.49, Nucleated RBC % 0, PT 13.3, INR 1.0, APTT 35.6, Sodium 135 L, Potassium 4.1, Chloride 103, Carbon Dioxide 23.0, Anion Gap 9, BUN 8, Creatinine 0.83, Estim Creat Clear Calc 112.58, Est GFR (MDRD) Af Amer 117, Est GFR (MDRD) Non-Af 97, BUN/Creatinine Ratio 9.7 L, Glucose 180 H, Lactic Acid 3.3 H*, Calcium 9.0, Total Bilirubin 0.50, Direct Bilirubin 0.18, AST 17, ALT 34, Alkaline Phosphatase 58, Troponin I High Sens 9, Total Protein 7.9, A lbumin 2.5 L, Globulin 5.4 H, Lipase 57 Imaging Radiology Impression Foot X-Ray 06/10/24 07:44 IMPRESSION: Ulcer near the fifth metatarsophalangeal joint with suspected osteomyelitis of the head of the fifth metatarsal bone and the base of the fifth proximal phalanx. Electronically Signed: Leo Arreola MD at 8:21 EST ,
--- NOTE | 2024-06-10 09:59 | ART_ITS ---
Reason For Study: Ulcer Procedure A bilateral lower extremity continuous wave Doppler with analog waveform analysis,segmental pressures,and ankle brachial indexes without exercise. Left Segmental Pressures Left brachial= 172mmHg. Left thigh = 111mmHg. Left calf = 119mmHg. Left posterior tibial artery = 106mmHg. Left dorsalis pedis artery = 77mmHg. Left digit = 29 mmHg. The left dorsalis pedis waveforms are monophasic. The left posterior tibial artery waveforms are monophasic. Right Segmental Pressures Right posterior tibial artery = 172mmHg. Right dorsalis pedis artery = 157mmHg. The right dorsalis pedis waveforms are biphasic. The right posterior tibial artery waveforms are biphasic. Indices The right ankle brachial index by the posterior tibial artery is 1.00. The right ankle brachial index by the dorsalis pedis is 0.91. The left ankle brachial index by the dorsalis pedis is 0.45. The left ankle brachial index by the posterior tibial artery is 0.62. The left digital-brachial index is 0.17. VL/Lower Ext Art Exam w/o Exercis Interpretation Summary Right JASMYN 1, normal. Doppler/PVR waveforms of the right leg mildly diminished a t rest. Left JASMYN 0.62, moderate arterial insufficiency. Doppler/PVR waveforms an segmen regi pressures reveal epaol-ghqyw-bikquqjp femoral disease Ordering Physician: Floyd Shah Referring Physician: Floyd Ricketts Performed By: Contreras Dubois RVT and Student
--- NOTE | 2024-06-10 10:33 | PCM.CONS.GEN ---
Assessment & Plan Assessment/Plan (1) Gangrene, not elsewhere classified: (2) Type 2 diabetes mellitus with foot ulcer: (3) Acute osteomyelitis of left foot: PLAN: Bcx and wound cx pending. Would cover empirically with vanc/zosyn. OR planned. Will follow, thank you, d/w Dr. Shah HPI Consult Data Date of Consult: 06/10/24 HPI Narrative Reason for Consultation: osteo HPI Narrative: EMILEE ARAGON, is a 74 M with DM neuropathy, prior R foot infected ulcer, presented today to ED with one week progressive L foot swelling, redness, and drainage from plantar wound. No fever, no pain, no recent abx, no known inciting events. Came to ED, given vanc/ceftriaxone/flagyl, plan is for OR today. Full ROS performed and neg except as noted above. [facility] Medical History Wears glasses Bladder disease High cholesterol Easy bruising Former smoker Neuropathy History of edema Leg cramps Family history of stent PAD (peripheral artery disease) HTN (hypertension) Hypothyroid Diabetes mellitus Home Medications ?Medication ?Instructions ?Recorded ?Last Taken ?Type ascorbic acid (vitamin C) 500 mg 500 mg PO DAILY supplement 09/26/17 07/21/20 08:00 History capsule pen needle, diabetic 29 gauge x ##1 03/12/20 Unknown Rx 1/2 blood sugar diagnostic (OneTouch #100 ea 03/18/20 Unknown Rx Verio test strips) potassium 99 mg tablet 99 mg PO BID supplement 06/12/20 06/12/20 History aspirin 81 mg chewable tablet 81 mg PO DAILY@0800 blood thinner 04/18/21 Unknown History atorvastatin 20 mg tablet 20 mg PO QHS Cholesterol 04/18/21 Unknown History clopidogrel 75 mg tablet 75 mg PO DAILY blood thinner 04/18/21 Unknown History geriatric [id number] 1 tab PO DAILY 04/18/21 Unknown History insulin NPH isoph U-100 human 100 50 unit subcut BID blood glucose 04/18/21 Unknown History unit/mL subcutaneous suspension (Novolin N NPH U-100 Insulin isophane) insulin regular human 100 unit/mL 35 unit subcut BID blood glucose 04/18/21 Unknown History injection solution (Novolin R Regular U-100 Insulin) levothyroxine 125 mcg tablet 125 mcg PO DAILY thyroid 10/04/21 Unknown History lisinopril 10 mg tablet 10 mg PO DAILY BP 04/18/21 Unknown History metformin 1,000 mg tablet 1,000 mg PO BID blood glucose 04/18/21 Unknown History Allergy/AdvReac Type Severity Reaction Status Date / Time No Known Allergies Allergy Verified 06/10/24 06:49 Family History Father Diabetes Heart disease Hypertension Surgical History History of amputation of toe History of transurethral destruction of bladder lesion S/P tonsillectomy S/P colonoscopy Social History Smoking Status: Former smoker Physical Exam Const alert, oriented x3 and no apparent distress General Appearance: cooperative HEENT normocephalic and head/scalp atraumatic Eyes PERRL and EOMs intact bilaterally Neck supple and No nodes Resp normal air movement and clear to auscultation bilaterally Cardio regular rate and regular rhythm GI soft to palpation, non-tender and non-distended Extremity General Extremity: edema Skin Skin Narrative: L foot wound with redness, drainage Neuro CN's II-XII intact bilaterally Lab / Micro Data Attestation: I reviewed the patient's lab results. 06/10/24 07:00 06/10/24 07:00 Labs: Laboratory Results - last 24 hr 06/10/24 07:00: WBC 17.5 H, RBC 4.62, Hgb 13.3, Hct 41.2, MCV 89.2, MCH 28.8, MCHC 32.3, RDW Std Deviation 45.4 H, RDW Coeff of Nyla 14.0, Plt Count 541 H, MPV 8.6, Immature Gran % (Auto) 1.000 H, Neut % (Auto) 82.0 H, Lymph % (Auto) 8.5 L, [place] % (Auto) 7.8, Eos % (Auto) 0.4, Baso % (Auto) 0.3, Absolute Neuts (auto) 14.4 H, Absolute Lymphs (auto) 1.49, Nucleated RBC % 0, PT 13.3, INR 1.0, APTT 35.6, Sodium 135 L, Potassium 4.1, Chloride 103, Carbon Dioxide 23.0, Anion Gap 9, BUN 8, Creatinine 0.83, Estim Creat Clear Calc 112.58, Est GFR (MDRD) Af Amer 117, Est GFR (MDRD) Non-Af 97, BUN/Creatinine Ratio 9.7 L, Glucose 180 H, Lactic Acid 3.3 H*, Calcium 9.0, Total Bilirubin 0.50, Direct Bilirubin 0.18, AST 17, ALT 34, Alkaline Phosphatase 58, Troponin I High Sens 9, Total Protein 7.9, Albumin 2.5 L, Globulin 5.4 H, Lipase 57 Imaging Radiology Impression Foot X-Ray 06/10/24 07:44 IMPRESSION: Ulcer near the fifth metatarsophalangeal joint with suspected osteomyelitis of the head of the fifth metatarsal bone and the base of the fifth proximal phalanx. Electronically Signed: Leo Arreola MD at 8:21 EST ,
--- NOTE | 2024-06-10 11:04 | CASEMGMT ---
Care Management Face to Face with patient for initial transition planning/care coordination assessment. This policy writer typist introduced self and role at [facility]. Patient lying in bed, alert and oriented. Patient willing to participate in assessment and is able to answer all questions appropriately. Care providers, pharmacy, and demographics verified and updated in [place]. Admitting Diagnosis: acidosis, lactic. Other diagnosis history: type 2 diabetes mellitus with foot ulcer PCP: Floyd Ricketts Specialists: none. Patient stated having to go to the wound center a few years ago when he had his first foot surgery. [facility]erred [facility]acy: [facility] Insurance: [employer] Medicare Senior Advantage Prescription Benefit: yes Living Will/HPOA: yes, on file. Neida (granddaughter) listed. LNOK: patient states he has 2 children, but he never talks to them. He also has stepchildren and lots of grandchildren, but he states rarely talking to them. Patient stated his granddaughter Neida as being his biggest support (she is his HCPOA). Living Arrangements: patient lives in a two story home, with no steps to enter. Patient reports having everything he needs to live on the first floor; patient's younger brother reportedly lives on the second floor of the home. Transportation: patient reports driving himself. DME: patient reports having a glucometer and testing strips. Patient denied list of other DME. HHC: patient denies any past HHC. SNF/Rehab: patient denies any past rehab, both inpatient and outpatient. Community Resources: patient denies any current or past community resources. Behavioral Health History: patient denies any current or past behavioral health history. Patient goals: Patient wishes to discharge home, denies need for home health at this time. Patient states he has no further needs or concerns at this time. Disposition Plan: admission to acute; surgery today (06/10) at 1300; RN CM/SW team to follow for discharge planning needs that may arise. Adela Reno, GRAIN SACKER, WOOD BOATBUILDER APPRENTICE
[2024-06-10 11:19] LABS: Reflex Lactate? Y
--- NOTE | 2024-06-10 11:33 | PHA.PHARE_ITS ---
Consult Antibiotic Management Pharmacy has been consulted to manage selected antibiotic: Vancomycin Type of Intervention Type of Consult: New start Suspected Infection Suspected Infection: Skin/Soft tissue and Osteomyelitis Prior Doses of Antibiotics Prior Doses of Antibiotics Received/Current Regimen: received vanc 2000mg IV x1 in E.R. starting at 07:55 today Labs Labs: Sodium 135 mmol/L (136-145) L 06/10/24 07:00 Potassium 4.1 mmol/L (3.5-5.1) 06/10/24 07:00 Chloride 103 mmol/L (98-107) 06/10/24 07:00 Carbon Dioxide 23.0 mmol/L (21.0-32.0) 06/10/24 07:00 Anion Gap 9 (5-15) 06/10/24 07:00 BUN 8 mg/dL (7-18) 06/10/24 07:00 Creatinine 0.83 mg/dL (0.70-1.30) 06/10/24 07:00 Est GFR (MDRD) Af Amer 117 mL/min (>60) 06/10/24 07:00 Est GFR (MDRD) Non-Af 97 mL/min (>60) 06/10/24 07:00 BUN/Creatinine Ratio 9.7 RATIO (10-20) L 06/10/24 07:00 Glucose 180 mg/dL (74-106) H 06/10/24 07:00 Dosing Weight Weight used for dosin kg Estimated Creatinine Clearance Estimated Creatinine Clearance: 113 ml/min Goal Trough Goal Trough: 15-20 mcg/mL Pharmacy Plan for Drug Dosing Pharmacy Plan for Drug Dosing: Starting 12 hours after the E.R. dose, will continue with 2000mg IV q12h. Clinical Pharmacology predicts a trough of approximately 15 with this dose. Hesitant to use another dose with an 8 hour frequency as suggested in the [facility] dosing chart since the patient is 74 years old so will start with the 2000mg q12h. Will check a trough before the 4th overall dose. Pharmacy Service will continue to monitor and adjust dosing as required. Follow-Up Labs Follow-Up Labs: Trough: Vancomycin Date/Time Labs Ordered Labs to be done on [date and time ordered]: 06/11/24 19:30
[2024-06-10] MEDS: 0.9% Saline Lock 10 ML Syringe IV ×4 (11:58→22:30)
[2024-06-10] MEDS: Dextrose 10%-Water 250 ML 999 ML IV (11:58)
[2024-06-10 11:59] LABS: Bedside Glucose 68 mg/dL (74-106)
[2024-06-10 12:09] LABS: Lactic Acid 3.6 mmol/L (0.4-1.9)
--- NOTE | 2024-06-10 13:26 | PRE.ANES_ITS ---
ASA Classification* ASA Classification ASA Classification: 4 and E Assessment & Plan Anesthesia* Anesthesia Assessment Anesthesia Assessment: Discussed sedation and/or anesthesia options, risks, benefits, and alternatives with patient/parents/legal guardian/POA. Questions invited. The patient/parents/legal guardian/POA seems to understand and agrees to proceed with anesthesia plan. Reviewed the physical assessment, medical history, allergy history and patient home medications list prior to surgery/procedure/anesthetic and documented any changes. Performed airway and anesthesia risk assessments. Anesthesia Type Anesthesia Type: General (see written pre anesthesia record for full assessment) and MAC (see written pre anesthesia record for full assessment) Anesthesia Focused Assessment* Temperature: 97.8 F Pulse Rate: 91 Blood Pressure: 152/70 Respiratory Rate: 18 Pulse Ox: 93 Airway Assessment Mouth opens: >3 cm Mallampati Score: II Focused Labs Anesthesia Preop lab: CBC WBC 17.5 K/mm3 (4.4-11.0) H 06/10/24 07:00 RBC 4.62 M/mm3 (4.6-6.2) 06/10/24 07:00 Hgb 13.3 g/dL (13.0-16.5) 06/10/24 07:00 Hct 41.2 % (40-54) 06/10/24 07:00 Plt Count 541 K/mm3 (150-450) H 06/10/24 07:00 CHEMISTRY Potassium 4.1 mmol/L (3.5-5.1) 06/10/24 07:00 Sodium 135 mmol/L (136-145) L 06/10/24 07:00 Magnesium 2.2 mg/dL (1.6-2.6) 03/10/20 05:54 BUN 8 mg/dL (7-18) 06/10/24 07:00 Creatinine 0.83 mg/dL (0.70-1.30) 06/10/24 07:00 Glucose 180 mg/dL (74-106) H 06/10/24 07:00 POC Glucose 68 mg/dL (74-106) L 06/10/24 11:41 TSH 1.16 uIU/mL (0.358-3.74) 05/18/22 09:31 COAG PT 13.3 SECONDS (11.7-14.9) 06/10/24 07:00 Pre-Assessment Diagnosis/Proposed Procedure Planned Operative Procedure(s): R 5th Ray proc Anesthesia History 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 When Was Last Pacemaker Check QUESTION #4 FULL TEXT: You/Your Family Experience fever (hyperthermia) with Anesthesia Last Oral Intake Last Oral intake: Last Oral Intake NPO since 07:00 06/10/24 11:07 Meds taken in AM with sips of Yes 06/10/24 11:07 water? 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 Female HX of Motion Sickness HX of N/V After Surgery Non-Smoker Duration of Surgery greater than 60 minutes Number of Risk Factors PONV Score Height & Weight Height & Weight: Anesthesia: Height & Weight Height 6 ft 1 in 06/10/24 11:07 Weight: 134 kg 06/10/24 11:07 Body Mass Index (BMI) 38.9 06/10/24 11:07 Respiratory Assessment Respiratory Assessment - crewman main battle tank: Respiratory Tract Infection Hx - 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 Has anyone observed you stop No 06/10/24 11:03 breathing during sleep? STOP Results Negative 06/10/24 11:03 QUESTION #5 FULL TEXT : Do you snore loudly (louder than talking or can be heard through closed doors)? 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 Specify any problems Hx of Preganancy in last 3 N/A 06/10/24 11:03 Months Nurse Filling Out Transfusion AGILL 06/10/24 11:03 & Questions: Date: 06/10/24 06/10/24 11:03 Time: 11:05 06/10/24 11:03 Patient unable to answer at this time (ie. 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 main battle tank: /Reproductive Hx- crewman main battle tank Hx Now Gestational Age (in weeks): EDC: Hx Hx Para Hx Section SAB Active Medications Active Medications: Current Medications Generic Name Dose Route Start Last Admin Trade Name Freq PRN Reason Stop Dose Admin Acetaminophen 650 mg 06/10/24 10:39 Acetaminophen 325 Mg Tablet PO Q6H PRN PRN Pain 1-10 Or Fever >100.7 Ascorbic Acid 500 mg 06/10/24 10:39 06/10/24 11:30 Ascorbic Acid 500 Mg Tablet PO Not [facility] Aspirin 81 mg 06/11/24 08:00 Aspirin 81 Mg Tab.Chew PO DAILY@0800 LIZZY Atorvastatin Calcium 20 mg 06/10/24 22:00 Atorvastatin Calcium 20 Mg Tablet PO QHS PENDING SALE TO [facility] Clopidogrel Bisulfate 75 mg 06/10/24 10:39 06/10/24 11:30 Clopidogrel Bisulfate 75 Mg Tablet PO Not Given DAILY PENDING SALE TO [facility] Glucagon 1 mg 06/10/24 10:39 Glucagon 1 Mg/Ml Syringe IM X1 PRN Hypoglycemia Protocol Heparin Sodium (Porcine) 5,000 unit 06/10/24 10:39 06/10/24 11:30 Heparin Injection (Vial) 5,000 Unit/Ml Vial SC Not Given Q12 PENDING SALE TO [facility] Dextrose 250 mls @ 0 mls/hr 06/10/24 10:39 06/10/24 12:06 Dextrose 10%-Water IV Infused .Q0M PRN Infusion HYPOGLYCEMIA Protocol As Directed Piperacillin Sod/Tazobactam 50 mls @ 12.5 mls/hr 06/10/24 14:00 Sod 3.375 gm/ Sodium Chloride IV Q8 PENDING SALE TO [facility] Vancomycin IV-PHARMACY TO DOSE 500 mls @ 250 mls/hr 06/10/24 10:39 1 each/ Sodium Chloride IV X1 PRN Rx to Dose Protocol Sodium Chloride 500 mls @ 15 mls/hr 06/10/24 10:46 IV .[id number] PRN Additional IVPB Infusion Sodium Chloride 500 mls @ 15 mls/hr 06/10/24 10:46 IV .[id number] PRN Saline Flush Vancomycin HCl 2,000 mg/ 540 mls @ 250 mls/hr 06/10/24 20:00 Sodium Chloride IV Q12H PENDING SALE TO [facility] Insulin Human Lispro 0 unit 06/10/24 11:00 06/10/24 12:15 Insulin Lispro 100 Unit/Ml Insuln.Pen SC Not Given ACHS PENDING SALE TO [facility] Protocol Levothyroxine Sodium 125 mcg 06/10/24 10:39 06/10/24 11:30 Levothyroxine 125 Mcg Tablet PO Not Given DAILY@0600 PENDING SALE TO [facility] Lisinopril 10 mg 06/10/24 10:39 06/10/24 11:30 Lisinopril 10 Mg Tablet PO Not Given DAILY PENDING SALE TO [facility] Protocol Ondansetron HCl 4 mg 06/10/24 10:39 Ondansetron 4 Mg/2 Ml Vial IV Q8H PRN PRN NAUSEA/VOMITING Oxycodone HCl 5 mg 06/10/24 10:39 Oxycodone 5 Mg Tablet PO Q4H PRN PRN Pain Score 4-10 Sodium Chloride 10 - 40 ml 06/10/24 10:46 06/10/24 11:58 0.9% Saline Lock 10 Ml Syringe IV 10 ml UD PRN Administration SALINE FLUSH Vancomycin Protocol 1 lab 06/11/24 17:30 Vancomycin Trough/Random Due 06/11/24 21:30 DAILY LIZZY PFSH Medical History Wears glasses Bladder disease High cholesterol Easy bruising Former smoker Neuropathy History of edema Leg cramps Family history of stent PAD (peripheral artery disease) HTN (hypertension) Hypothyroid Diabetes mellitus Home Medications ?Medication ?Instructions ?Recorded ?Last Taken ?Type ascorbic acid (vitamin C) 500 mg 500 mg PO DAILY supplement 09/26/17 07/21/20 08:00 History capsule pen needle, diabetic 29 gauge x ##1 03/12/20 Unknown Rx 1/2 blood sugar diagnostic (OneTouch #100 ea 03/18/20 Unknown Rx Verio test strips) potassium 99 mg tablet 99 mg PO BID supplement 06/12/20 06/12/20 History aspirin 81 mg chewable tablet 81 mg PO DAILY@0800 blood thinner 04/18/21 06/10/24 History atorvastatin 20 mg tablet 20 mg PO QHS Cholesterol 04/18/21 Unknown History clopidogrel 75 mg tablet 75 mg PO DAILY blood thinner 04/18/21 06/10/24 History geriatric [id number] 1 tab PO DAILY supplement 04/18/21 06/10/24 History insulin NPH isoph U-100 human 100 40 unit subcut BID blood glucose 04/18/21 06/10/24 History unit/mL subcutaneous suspension (Novolin N NPH U-100 Insulin isophane) insulin regular human 100 unit/mL 40 unit subcut BID blood glucose 04/18/21 06/10/24 History injection solution (Novolin R Regular U-100 Insulin) levothyroxine 125 mcg tablet 125 mcg PO DAILY thyroid 04/18/21 Unknown History lisinopril 10 mg tablet 10 mg PO DAILY BP 04/18/21 06/10/24 History metformin 1,000 mg tablet 1,000 mg PO BID blood glucose 04/18/21 06/10/24 History Allergy/AdvReac Type Severity Reaction Status Date / Time No Known Allergies Allergy Verified 06/10/24 06:49 Family History Father Diabetes Heart disease Hypertension Surgical History History of amputation of toe History of transurethral destruction of bladder lesion S/P tonsillectomy S/P colonoscopy Social History Smoking Status: Former smoker Review of Systems (Anesthesia) ROS Narrative System reviewed and no additional complaints, except as documented.
[2024-06-10] MEDS: Bupivacaine Mpf 0.5% 30 ML VIAL (15:14)
--- NOTE | 2024-06-10 15:30 | PCM.OPRPT ---
Operative Report (Standard) Operative Information Surgery/Procedure Performed: Left foot - debridement of ulceration down to and including bone Surgeon: Sylvain Ruiz Date of Procedure: 06/10/24 Procedure Start Time: 14:56 Procedure Stop Time: 15:30 Pre-Operative Diagnosis: Osteomyelitis left foot - 5th ray with ulceration down and including bone Post-Operative Diagnosis: Same Select all DRAINS/GRAFTS/IMPLANTS that apply: None Type of Anesthesia: Local MAC Estimated Blood Loss: 10mL Specimen collected: Yes Description of specimen(s) removed: Left 5th metatarsal bone - sent to pathology Left 5th metatarsal bone clearance fragment - sent to pathology and microbiology Debrided ulceration soft tissue and bone left 5th ray - sent to pathology Description of surgery: Indications: This is a 74 year old gentleman with uncontrolled diabetes and many medical problems who presented today to hospital with infected left foot ulcer, there was erythema, edema, necrosis, drainage, and maloder - down to and including bone of the 5th ray left foot. Discussed the options with the patient. He elected to proceed with wound debridement of all nonviable, infected and necrotic soft tissue and bone at this time. Advised the patient of the possible benefits vs risks, he was advised the risks include but not limited to pain, worsening, blood clots, need for further surgery, deformity, problems ambulating and with shoes, loss of limb, loss of life. He expressed understanding and agreement. The consent form was reviewed with him and he freely signed it. All of his questions were answered. No guarantees were given nor implied, no warranties were given. Operative Procedure: The patient was brought to the operating room and was placed on the operating room table in the supine position. The patient was secured to the operating room table with a safety belt around his waist. The patient received MAC anesthesia per the anesthesia team. The patient was already on antibiotics - Vancomycin and Zosyn. The skin on patient's left foot was cleansed with 70% Isopropyl alcohol and a total of 30mL of 0.5% Bupivacaine plain was given as a left lateral foot nerve block at level of 5th ray. A well padded pneumatic tourniquet was applied around his left ankle. A timeout was performed and the patient was properly identified and surgical plan confirmed. The patient's left foot was scrubbed, prepped and draped in the usual aseptic fashion. Further attention was directed to the patient's left foot where again a nonviable, infected and wet necrotic ulceration was present down to and including bone of the left foot 5th ray - there was drainage and significant maler, with erythema and edema to the foot. The patient's left foot was exsanguinated using left foot elevation and the left ankle pneumatic tourniquet was inflated to 250mmHg. The ulceration was debrided down to and including bone using a 15 blade, a bone cutting rongeur, as well as a powered sagittal saw. It was noted the necrosis and infection extended to the 5th metatarsal where the distal part of the bone was necrotic, gutiérrez, soft and eroded. There was extensive nonviable, infected and necrotic subcutaneous and fascia tissue all of which was debrided using a 15 blade. The area debrided measured 9.5cm x 4.2cm and down to and including bone as noted above. The debrided tissue was sent to pathology and microbiology for further evaluation. The ulcer was debrided down to healthy viable tissue in excisional sharp fashion using the 15 scalpel blade, bone cutting rongeur and power sagittal saw. The site was flushed out with copious amounts of normal saline solution. A clearance fragment was obtained from the remaining 5th metatarsal using a clean bone cutting rongeur and was sent to microbiology and pathology - the bone at this area was hard, white and appeared to be free of infection. The site was further flushed out with copious of normal saline solution and the remaining tissues appeared to be healthy and viable. A dressing was applied which consisted of Betadine solution soaked gauze, 4x4 gauze, Kerlix, abd pad and sascha dressing with very minimal compression. The pneumatic tourniquet was deflated and there was immediate return of warmth and perfusion to the left foot with CFT < 2 seconds to the toes. Total tourniquet time was 30 minutes. The patient tolerated the procedure well and anesthesia well with no complications. He was transported from the operating room to the recovery room in good conditions. Post operative orders were placed and the patient will be continued to be followed as an inpatient. Surgical Findings: See above Bdc Manager graphics software engineer: No Complications Complications: No
--- NOTE | 2024-06-10 15:40 | PCM.POST.ANE ---
Anesthesia: Postop Eval I Current Vital Signs Temperature: 98.8 F Pulse Rate: 87 Blood Pressure: 144/73 Respiratory Rate: 16 Pulse Ox: 91 Oxygen Delivery Method: Room Air Assessment Airway patent: Yes Spontaneous unlabored respirations: Yes Mental status: Awake nausea: No Vomiting: No Anesthesia Complication: No Fluid Hydration Crystalloid volume administer (ml): 40 Total IV fluid infused: 40 Progress Note Anesthesia document: Postop Eval 1 completed: Yes
--- NOTE | 2024-06-10 15:45 | RAD_ITS ---
INDICATION: POST OPERATIVE EXAMINATION/TECHNIQUE: X-RAY - LEFT XR Foot Min 3 Views COMPARISON: Left foot radiographs earlier same day. FINDINGS: 3 views of the left foot. Suboptimal fine osseous detail evaluation secondary to overlying bandage material. Interval osteotomy of the base of the fifth metatarsal with resection of the lateral aspect of the foot. No other definite acute osseous abnormality. Dense atherosclerotic vascular calcifications. RAD/Foot min 3 Views IMPRESSION: Post procedure change of the left foot as above. Electronically Signed: Philip Alfaro MD at 7:18 EST ,
--- NOTE | 2024-06-10 15:45 | PCM.HP.STD ---
HPI - General General Date of Admission: 06/10/24 Date of Service: 06/10/24 Chief Complaint: Left foot infection HPI Narrative EMILEE ARAGON, is a 74 M who presents to the emergency room at [facility] complaining of drainage and foul-smelling discharge from the side of his left foot. Patient is vague about how long this has been going on, he has diabetic neuropathy and has very little feeling in his feet. 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 Patient denies any chills or fever at home. Lab was obtained in the emergency room, patient's white blood cell count was elevated at 17.5, chemistry profile was unremarkable except for a glucose of 180, patient's lactic acid was elevated at 3.3. Left foot x-ray revealed an ulcer near the fifth metatarsal phalangeal joint with suspected osteomyelitis of the head of the fifth metatarsal bone and the base of the fifth proximal phalanx. Patient was seen in the emergency room by podiatry who recommended the patient go for surgery today, patient will be admitted under hospitalist service, he was given IV vancomycin, IV Cipro, and IV Flagyl in the emergency room. [facility], [facility] Medical History Wears glasses Bladder disease High cholesterol Easy bruising Former smoker Neuropathy History of edema Leg cramps Family history of stent PAD (peripheral artery disease) HTN (hypertension) Hypothyroid Diabetes mellitus Home Medications ?Medication ?Instructions ?Recorded ?Last Taken ?Type ascorbic acid (vitamin C) 500 mg 500 mg PO DAILY supplement 09/26/17 07/21/20 08:00 History capsule pen needle, diabetic 29 gauge x ##1 03/12/20 Unknown Rx 1/2 blood sugar diagnostic (OneTouch #100 ea 03/18/20 Unknown Rx Verio test strips) potassium 99 mg tablet 99 mg PO BID supplement 06/12/20 06/12/20 History aspirin 81 mg chewable tablet 81 mg PO DAILY@0800 blood thinner 04/18/21 06/10/24 History atorvastatin 20 mg tablet 20 mg PO QHS Cholesterol 04/18/21 Unknown History clopidogrel 75 mg tablet 75 mg PO DAILY blood thinner 04/18/21 06/10/24 History geriatric [id number] 1 tab PO DAILY supplement 04/18/21 06/10/24 History insulin NPH isoph U-100 human 100 40 unit subcut BID blood glucose 04/18/21 06/10/24 History unit/mL subcutaneous suspension (Novolin N NPH U-100 Insulin isophane) insulin regular human 100 unit/mL 40 unit subcut BID blood glucose 04/18/21 06/10/24 History injection solution (Novolin R Regular U-100 Insulin) levothyroxine 125 mcg tablet 125 mcg PO DAILY thyroid 04/18/21 Unknown History lisinopril 10 mg tablet 10 mg PO DAILY BP 04/18/21 06/10/24 History metformin 1,000 mg tablet 1,000 mg PO BID blood glucose 04/18/21 06/10/24 History Allergy/AdvReac Type Severity Reaction Status Date / Time No Known Allergies Allergy Verified 06/10/24 06:49 Family History Father Diabetes Heart disease Hypertension Surgical History History of amputation of toe History of transurethral destruction of bladder lesion S/P tonsillectomy S/P colonoscopy Social History Smoking Status: Former smoker ROS Constitutional Constitutional: Denies anorexia, change in weight, chills, fatigue, fever(s), malaise, night sweats or weakness Eyes Eyes: Denies blurry vision, change in vision, discharge from eye(s) or eye pain Cardiovascular Cardiovascular: Denies chest pain, claudication, dyspnea on exertion, edema or palpitations Respiratory/Chest Respiratory/Chest: Denies cough, hemoptysis, shortness of breath at rest or shortness of breath with exertion Gastrointestinal Gastrointestinal: Denies abdominal pain, coffee ground emesis, constipation, diarrhea, hematemesis, hematochezia, melena, nausea or vomiting Genitourinary Genitourinary: Denies dysuria, hematuria, urinary frequency, urinary hesitancy, urinary incontinence or urinary urgency Musculoskeletal Musculoskeletal: Reports other Details: Drainage and ulceration of the lateral aspect of the left foot for an unknown period of time ; Denies back pain, joint pain, joint stiffness, joint swelling, myalgias or neck pain Neurologic Neurologic: Denies abnormal gait, abnormal speech, dizziness, focal weakness, headache(s), loss of vision, numbness, other visual disturbances, paresthesias, syncope or tingling Psychiatric Psychiatric: Denies anxiety, cognitive impairment, depression, irritability, mood swings or suicidal ideation Endocrine Endocrinology: Denies change in body appearance, cold intolerance, excessive sweating, heat intolerance, polydipsia or polyuria Hematologic/Lymphatic Hematologic/Lymphatic: Denies none, anemia, easy bleeding, easy bruising or lymphadenopathy Allergic/Immunologic Allergic/Immunologic: Denies rhinitis, urticaria, eczemia or asthma Vital Signs Vital Signs Vital Signs: 06/10/24 06:50 06/10/24 06:52 06/10/24 08:01 Temperature 98.7 F 98.7 F 98.9 F Temperature Source Oral Oral Oral Pulse Rate 122 H 115 H 99 Respiratory Rate 18 18 18 Blood Pressure 193/82 H 185/76 H Blood Pressure Mean 119 112 Blood Pressure Source Blood Pressure Position Blood Pressure Location Pulse Ox 96 94 97 Oxygen Delivery Method Room Air Room Air Room Air 06/10/24 08:49 06/10/24 09:10 06/10/24 10:00 Temperature 98.9 F 98.9 F 98.9 F Temperature Source Oral Oral Pulse Rate 93 91 78 Respiratory Rate 16 16 16 Blood Pressure 160/73 H 160/64 H 159/72 H Blood Pressure Mean 102 96 101 Blood Pressure Source Blood Pressure Position Blood Pressure Location Pulse Ox 98 100 98 Oxygen Delivery Method Room Air Room Air 06/10/24 10:49 06/10/24 13:26 06/10/24 15:41 Temperature 97.8 F 97.8 F 98.8 F Temperature Source Oral Pulse Rate 91 91 87 Respiratory Rate 18 18 16 Blood Pressure 152/70 H 152/70 H 144/73 H Blood Pressure Mean 97 Blood Pressure Source Monitor Blood Pressure Position Semi-Fowlers Blood Pressure Location Left Arm Pulse Ox 93 93 91 Oxygen Delivery Method Room Air Room Air Weight Weight: 134 kg Body Mass Index (BMI) 38.9 Physical Exam Const alert, oriented x3 and no apparent distress Constitutional Narrative: Class III obesity General Appearance: cooperative, well kempt and well developed Orientation / Consciousness: awake, oriented to person, oriented to place and oriented to time HEENT normocephalic, head/scalp atraumatic, hearing grossly normal bilaterally and moist oral mucous membranes Eyes PERRL, EOMs intact bilaterally and conjunctivae normal Neck supple, no JVD, thyroid normal and no carotid bruits General: trachea midline Resp normal respiratory effort, no retractions, no use of accessory muscles and clear to auscultation bilaterally Auscultation: Negative for rales, rhonchi or wheezes Cardio regular rate, regular rhythm, S1 normal heart sound, S2 normal heart sound, no murmurs, no rub and no gallops GI normal to inspection, nondistended, normoactive bowel sounds, soft to palpation, non-tender and non-distended Extremity Extremity Narrative: There is evidence of wet gangrene over the lateral aspect of the patient's left foot, this covers an area of approximately 7 to 8 cm in length and 4 cm diameter., This extends from the mid fifth metatarsal area on the left and extends down to the left fifth toe Skin Skin Narrative: Wet gangrene is present over the lateral aspect of the left foot as described above Neuro oriented x3, CN's II-XII intact bilaterally and no focal motor deficits Neuro Narrative: Decreased sensation to light touch and pain over the feet bilaterally Sensorium / Orientation: awake and alert Speech: speech normal Psych affect normal Results Lab / Micro Data 06/10/24 07:00 06/10/24 07:00 Labs: Laboratory Results - last 24 hr 06/10/24 07:00: WBC 17.5 H, RBC 4.62, Hgb 13.3, Hct 41.2, MCV 89.2, MCH 28.8, MCHC 32.3, RDW Std Deviation 45.4 H, RDW Coeff of Nyla 14.0, Plt Count 541 H, MPV 8.6, Immature Gran % (Auto) 1.000 H, Neut % (Auto) 82.0 H, Lymph % (Auto) 8.5 L, [place] % (Auto) 7.8, Eos % (Auto) 0.4, Baso % (Auto) 0.3, Absolute Neuts (auto) 14.4 H, Absolute Lymphs (auto) 1.49, Nucleated RBC % 0, PT 13.3, INR 1.0, APTT 35.6, Sodium 135 L, Potassium 4.1, Chloride 103, Carbon Dioxide 23.0, Anion Gap 9, BUN 8, Creatinine 0.83, Estim Creat Clear Calc 112.58, Est GFR (MDRD) Af Amer 117, Est GFR (MDRD) Non-Af 97, BUN/Creatinine Ratio 9.7 L, Glucose 180 H, Lactic Acid 3.3 H*, Calcium 9.0, Total Bilirubin 0.50, Direct Bilirubin 0.18, AST 17, ALT 34, Alkaline Phosphatase 58, Troponin I High Sens 9, Total Protein 7.9, Albumin 2.5 L, Globulin 5.4 H, Lipase 57 06/10/24 11:29: Lactic Acid 3.6 H* 06/10/24 11:41: POC Glucose 68 L Micro: Microbiology 06/10/24 07:20 Wound - Left Foot Gram Stain - Final Imaging Radiology Impression Foot X-Ray 06/10/24 07:44 IMPRESSION: Ulcer near the fifth metatarsophalangeal joint with suspected osteomyelitis of the head of the fifth metatarsal bone and the base of the fifth proximal phalanx. Electronically Signed: Leo Arreola MD at 8:21 EST , Assessment & Plan Assessment/Plan (1) Gangrene, not elsewhere classified: PLAN: Plan 1. Gangrene left foot-secondary to peripheral vascular disease from type 2 diabetes poorly controlled-patient will be admitted to [facility], he was seen in consultation by podiatry and infectious diseases, patient will be treated with IV vancomycin and IV Zosyn, patient will remain n.p.o. for surgery today, patient will be seen by PT and OT #2 type 2 [id number] will have fingerstick blood sugars monitored and sliding scale insulin will be used as indicated #3 peripheral vascular disease-patient will have lower extremity arterial studies performed #4 hyperlipidemia-patient is on a statin #5 hypothyroidism-patient is on Synthroid #6 essential hypertension-patient will remain on his outpatient medications and they will be adjusted as needed #7 class III obesity-complicates care, management, recovery, and prognosis Total clinical time spent by myself addressing the patient's medical issues, reviewing all of his data, and collaborating with patient's care team: 75 minutes Charges/Coding Visit Charges Inpatient E&M: 92685 Init Hosp L3
--- NOTE | 2024-06-10 15:51 | POSTOPAN2_ITS ---
Anesthesia Postop Eval I Sum Postop Eval Completion status Anesthesia document: Postop Eval 1 completed: Yes Anesthesia Postop Eval I Summary Anesthesia Postop Eval I Summary: Anesthesia Postop Eval I: Assessment Summary Airway patent Yes 06/10/24 15:41 [email or web address] Spontaneous unlabored Yes 06/10/24 15:41 AUTOMOTIVE [email or web address] respirations Mental status Awake 06/10/24 15:41 [email or web address] nausea No 06/10/24 15:41 AUTOMOTIVE [email or web address] Vomiting No 06/10/24 15:41 [email or web address] [email or web address] Anesthesia Postop Eval I: Fluid Summary Crystalloid volume administer 40 06/10/24 15:41 AUTOMOTIVE [email or web address] (ml) Colloids volume administered ( ml) Blood Product volume administered (ml) Total IV fluid infused 40 06/10/24 15:41 AUTOMOTIVE [email or web address] Anesthesia Postop Eval I: Summary Notes Anesthesia Complication No 06/10/24 15:41 [email or web address] [email or web address] Anesthesia Complication Comment: Post-operative progress note Anesthesia: Postop Eval II Evaluation Mental status: Awake Pain Level: 0 nausea: No Vomiting: No
--- NOTE | 2024-06-10 15:51 | PCM.POSTANE2 ---
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 Spontaneous unlabored Yes 06/10/24 15:41 PACKING MACHINE PILOT CAN [email or web address] respirations Mental status Awake 06/10/24 15:41 PACKING MACHINE PILOT CAN [email or web address] nausea No 06/10/24 15:41 PACKING MACHINE PILOT CAN [email or web address] Vomiting No 06/10/24 15:41 PACKING MACHINE PILOT CAN [email or web address] Anesthesia Postop Eval I: Fluid Summary Crystalloid volume administer 40 06/10/24 15:41 PACKING MACHINE PILOT CAN [email or web address] (ml) Colloids volume administered ( ml) Blood Product volume administered (ml) Total IV fluid infused 40 06/10/24 15:41 PACKING MACHINE PILOT CAN [email or web address] Anesthesia Postop Eval I: Summary Notes Anesthesia Complication No 06/10/24 15:41 PACKING MACHINE PILOT CAN [email or web address] Anesthesia Complication Comment: Post-operative progress note Anesthesia: Postop Eval II Evaluation Mental status: Awake Pain Level: 0 nausea: No Vomiting: No
[2024-06-10] MEDS: Piperacil/Tazobactam 3.375 GM in 0.9% Normal Saline (50mL MB+) 50 ML IV ×2 (16:48→21:24)
[2024-06-10 17:17] LABS: Bedside Glucose 103 mg/dL (74-106)
[2024-06-10] MEDS: Heparin Injection (Vial) 5,000 UNIT/ML VIAL 5000 UNIT SC (21:02)
[2024-06-10] MEDS: Atorvastatin Calcium 20 MG Tablet PO (21:02)
[2024-06-10] MEDS: Insulin Lispro 100 UNIT/ML INSULN.PEN SC (21:10)
[2024-06-10] MEDS: Acetaminophen 325 MG Tablet 650 MG PO (21:15)
[2024-06-10 21:49] LABS: Bedside Glucose 156 mg/dL (74-106)
[2024-06-10] MEDS: hydrALAZINE 20 MG/ML Vial 10 MG IV (22:29)
[2024-06-11 03:14] VITALS: BP 167/84; PULSE 95; RESP 18; TEMP 36.6; O2SAT 93
[2024-06-11] MEDS: Insulin Lispro 100 UNIT/ML INSULN.PEN SC ×4 (06:28→22:51)
[2024-06-11] MEDS: Levothyroxine 125 MCG Tablet PO (06:28)
[2024-06-11] MEDS: 0.9% Saline Lock 10 ML Syringe IV ×2 (06:28→08:44)
[2024-06-11] MEDS: Piperacil/Tazobactam 3.375 GM in 0.9% Normal Saline (50mL MB+) 50 ML IV ×3 (06:28→22:52)
[2024-06-11] MEDS: Acetaminophen 325 MG Tablet 650 MG PO ×2 (06:35→13:54)
[2024-06-11 06:49] LABS: Bedside Glucose 215 mg/dL (74-106)
[2024-06-11 08:42] VITALS: BP 166/92; PULSE 93; RESP 16; TEMP 36.1; O2SAT 95
[2024-06-11] MEDS: oxyCODONE 5 MG Tablet PO ×3 (08:44→19:48)
[2024-06-11] MEDS: Vancomycin HCl 2,000 MG in 0.9% Normal Saline (500mL Bag) 500 ML 250 MG IV (08:45)
[2024-06-11] MEDS: Aspirin 81 MG TAB.CHEW PO (08:47)
[2024-06-11] MEDS: Clopidogrel Bisulfate 75 MG Tablet PO (08:47)
[2024-06-11] MEDS: Heparin Injection (Vial) 5,000 UNIT/ML VIAL 5000 UNIT SC ×2 (08:47→22:52)
[2024-06-11] MEDS: Lisinopril 10 MG Tablet PO (08:47)
[2024-06-11] MEDS: Ascorbic Acid 500 MG Tablet PO (08:48)
--- NOTE | 2024-06-11 12:24 | PCM.PROGNOTE ---
Subjective Subjective Patient was seen today for follow up left foot s/p debridement, he relates he has no pain, he is resting comfortably in bed watching TV with no complaints. No complaints of f/c/n/v. Objective Data Objective Data Vital Signs: Vital Signs Temp Pulse Resp BP Pulse Ox O2 Del Method 97.0 F L 93 16 166/92 H 95 Room Air 06/11/24 08:42 06/11/24 08:42 06/11/24 08:42 06/11/24 08:42 06/11/24 08:42 06/11/24 11:20 Oxygen Delivery Method Room Air Weight: 134 kg Body Mass Index (BMI) 38.9 Intake & Output: Intake and Output for Last 24 Hours 06/09/24 06/10/24 06/11/24 23:59 23:59 23:59 Intake Total 2413.2 / 2413.2 940 / 940 Output Total 300 / 300 1125 / 1125 Balance 2113.2 / 2113.2 -185 / -185 Lab / Micro Data 06/10/24 07:00 06/10/24 07:00 Labs: Laboratory Results - last 24 hr 06/10/24 16:45: POC Glucose 103 06/10/24 20:59: POC Glucose 156 H 06/11/24 06:27: POC Glucose 215 H Micro: Microbiology 06/10/24 15:10 Bone - 5th Toe Wound Culture - Preliminary Staphylococcus species 06/10/24 15:07 Bone - 5th Toe Wound Culture - Preliminary Staphylococcus species GPC Poss Enterococcus sp 06/10/24 07:20 Wound - Left Foot Gram Stain - Final 06/10/24 07:20 Wound - Left Foot Wound Culture - Preliminary Staphylococcus aureus Radiography Diagnostic Testing: Radiology Impression Foot X-Ray 06/10/24 15:45 IMPRESSION: Post procedure change of the left foot as above. Electronically Signed: Philip Alfaro MD at 7:18 EST , Physical Exam Const alert, oriented x3 and no apparent distress Constitutional Narrative: Left foot s/p 5th ray debridement down to and including bone - no necrosis, no visible abscess, no purulence, no maloder, no fluctuance, no crepitus, there is some residual mild cellulitis to wound margins, tissues of wound appear healthy and viable and down to fascia/muscle and bone, no evidence of acute ischemia left foot at this time, CFT < 3 sec to toes, there is some edema to left foot/ankle c/w hx of infection, no calf pain. 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 Reviewed diagnostic data. s/p left foot debridement on 06/10/2024 - clinically foot stabilized from infection standpoint, awaiting surgical cultures and path results. He remains on IV antibiotics with Dr. Rowland on consult. Noninvasive lower extremity arterial studies was ordered and reviewed - Vascular surgery service consulted. No weightbearing left foot. Wound care left foot - dressing was changed today - cleansed with normal saline solution, applied gauze, kerlix and sascha dressing. Change daily. Podiatry will continue to follow.
[2024-06-11 13:44] VITALS: BP 158/78; PULSE 97; RESP 16; TEMP 36.6; O2SAT 95
[2024-06-11 13:44] LABS: Bedside Glucose 249 mg/dL (74-106)
--- NOTE | 2024-06-11 14:10 | PCM.PN.ID ---
Physical Exam Narrative Feeling better, no fever, no n/v/d, pain controlled Const alert and no apparent distress General Appearance: cooperative Resp normal air movement and clear to auscultation bilaterally Cardio regular rate and regular rhythm GI soft to palpation, non-tender and non-distended Skin no rashes or lesions noted Skin Narrative: foot wrapped ID ID: Route of nutrition/ use of supplements: [] Nutritional Intake: [] IV Site: [] Butler Catheter: [] Assessment & Plan Assessment/Plan (1) Gangrene, not elsewhere classified: (2) Type 2 diabetes mellitus with foot ulcer: (3) Acute osteomyelitis of left foot: PLAN: Bcx ngtd and wound cx with staph so far. Cont cover empirically with vanc/zosyn. OR 06/10/[address] Ruiz for I&D. Will follow
[2024-06-11 15:55] VITALS: BP 167/81; PULSE 85; RESP 16; TEMP 36.8; O2SAT 93
[2024-06-11 16:22] LABS: Bedside Glucose 272 mg/dL (74-106)
--- NOTE | 2024-06-11 17:01 | EX.PCM.CON.S ---
Assessment & Plan Assessment/Plan (1) Atherosclerosis of [place] arteries of extremities with gangrene, left leg: PLAN: - Noninvasive vascular studies reveal moderate arterial insufficiency in the aortoiliac proximal femoral distribution - Will obtain CTA runoff to further define his atherosclerotic burden but expected that angiography with possible intervention will be necessary to heal his foot wound and infection - Tentative plan for angiogram early next week HPI Consult Data Date of Consult: 06/11/24 HPI Narrative HPI Narrative: EMILEE ARAGON, is a 74 M who presents with left lateral foot ulceration and infection present for several weeks. He underwent operative debridement and irrigation and drainage of the infection with satisfactory source control. He had a similar wound on his right lower extremity several years prior which was treated with similar surgical source control and right lower extremity angiogram with intervention. He has had noninvasive vascular studies here which suggest moderate arterial disease the left lower extremity. He takes aspirin and Plavix as part of his home medication regimen. He also has history of diabetes controlled with insulin and metformin with what he describes is satisfactory control. He does not know his most recent A1c and most recent 1 on record here is from several years prior. He denies any prior history of left lower extremity arterial or venous interventions no prior surgical history on the left. [facility] Medical History Wears glasses Bladder disease High cholesterol Easy bruising Former smoker Neuropathy History of edema Leg cramps Family history of stent PAD (peripheral artery disease) HTN (hypertension) Hypothyroid Diabetes mellitus Home Medications ?Medication ?Instructions ?Recorded ?Last Taken ?Type ascorbic acid (vitamin C) 500 mg 500 mg PO DAILY supplement 09/26/17 07/21/20 08:00 History capsule blood sugar diagnostic (OneTouch #100 ea 03/18/20 Unknown Rx Verio test strips) potassium 99 mg tablet 200 mg PO BID supplement 06/12/20 06/12/20 History aspirin 81 mg chewable tablet 81 mg PO DAILY@0800 blood thinner 04/18/21 06/10/24 History atorvastatin 20 mg tablet 20 mg PO QHS Cholesterol 04/18/21 Unknown History clopidogrel 75 mg tablet 75 mg PO DAILY blood thinner 04/18/21 06/10/24 History geriatric [id number] 1 tab PO DAILY supplement 04/18/21 06/10/24 History insulin NPH isoph U-100 human 100 40 unit subcut BID blood glucose 10/04/21 11/26/24 History unit/mL subcutaneous suspension (Novolin N NPH U-100 Insulin isophane) insulin regular human 100 unit/mL 40 unit subcut BID blood glucose 04/18/21 06/10/24 History injection solution (Novolin R Regular U-100 Insulin) levothyroxine 125 mcg tablet 125 mcg PO DAILY thyroid 04/18/21 Unknown History lisinopril 10 mg tablet 10 mg PO DAILY BP 04/18/21 06/10/24 History metformin 1,000 mg tablet 1,000 mg PO BID blood glucose 04/18/21 06/10/24 History pen needle, diabetic 29 gauge x 06/11/24 Unknown History 1/2 Allergy/AdvReac Type Severity Reaction Status Date / Time No Known Allergies Allergy Verified 06/10/24 06:49 Family History Father Diabetes Heart disease Hypertension Surgical History History of amputation of toe History of transurethral destruction of bladder lesion S/P tonsillectomy S/P colonoscopy Social History Smoking Status: Former smoker ROS Constitutional Constitutional: Denies chills, fever(s), frequent falls, lethargy or weakness Eyes Eyes: Denies blind spots, change in vision or loss of vision ENT HEENT: Denies bleeding gums, hoarseness or sore throat Cardiovascular Cardiovascular: Denies abdominal pain, bluish discoloration of hand/feet, chest pain with activity, claudication, cold extremities, cyanosis, dyspnea on exertion, erythema on extremities, irregular heart rhythm, leg edema, numbness in extremities or weakness in extremities Respiratory/Chest Respiratory/Chest: Denies cough, excessive phlegm production, shortness of breath at rest, shortness of breath with exertion or wheezing Gastrointestinal Gastrointestinal: Denies anorexia, change in stool character, constipation, diarrhea, melena or rectal bleeding Genitourinary Genitourinary: Denies dysuria or hematuria Musculoskeletal Musculoskeletal: Denies abnormal gait Integumentary Integumentary: Reports skin ulcer and other Details: ; Denies erythema or non-healing lesions Neurologic Neurologic: Denies abnormal speech, focal weakness, headache(s), loss of vision, numbness, paresthesias or sensory deficit Hematologic/Lymphatic Hematologic/Lymphatic: Denies easy bleeding, easy bruising or lymphadenopathy Physical Exam Const alert, oriented x3, no apparent distress and healthy appearing General Appearance: cooperative; Negative for combative or lethargic Orientation / Consciousness: awake Exam Limitations: no limitations HEENT Head and Scalp: normocephalic and atraumatic Eyes EOMs intact bilaterally General Eye: normal appearance of both eyes Neck full ROM and no lymphadenopathy General: trachea midline Thyroid: thyroid normal Resp normal respiratory effort and no use of accessory muscles Effort and Inspection: Negative for labored, stridor or audible wheezes Cardio regular rate Peripheral Pulses: brachial pulses present, radial pulses present, femoral pulses present and dorsalis pedis pulses present; Negative for popliteal pulses present Back/Spine Cervical Spine: cervical ROM normal Extremity full ROM, normal capillary refill and no clubbing, cyanosis or edema Extremity Narrative: Left foot wrapped in postsurgical dressing Neuro oriented x3, CN's II-XII intact bilaterally, no focal motor deficits and no sensory deficits noted Psych thought process normal, cooperative, affect normal, speech normal and activity/motor behavior normal Lab / Micro Data 06/10/24 07:00 06/10/24 07:00 Labs: Laboratory Results - last 24 hr 06/10/24 16:45: POC Glucose 103 06/10/24 20:59: POC Glucose 156 H 06/11/24 06:27: POC Glucose 215 H 06/11/24 12:09: POC Glucose 249 H 06/11/24 16:00: POC Glucose 272 H Micro: Microbiology 06/10/24 15:10 Bone - 5th Toe Gram Stain - Final 06/10/24 15:10 Bone - 5th Toe Wound Culture - Preliminary Staphylococcus species 06/10/24 15:07 Bone - 5th Toe Gram Stain - Final 06/10/24 15:07 Bone - 5th Toe Wound Culture - Preliminary Staphylococcus species GPC Poss Enterococcus sp 06/10/24 07:20 Wound - Left Foot Gram Stain - Final 06/10/24 07:20 Wound - Left Foot Wound Culture - Preliminary Staphylococcus aureus Imaging Radiology Impression Foot X-Ray 06/10/24 15:45 IMPRESSION: Post procedure change of the left foot as above. Electronically Signed: Philip Alfaro MD at 7:18 EST , Charges/Coding Visit Charges Inpatient E&M: 94381 Init Hosp L3
--- NOTE | 2024-06-11 17:11 | CT_ITS ---
STUDY: CTA OF THE ABDOMINAL AORTA AND BILATERAL LOWER EXTREMITIES REASON FOR EXAM: Male, 74 years old. athersclerosis with gangrene left lower extremity RADIATION DOSAGE (If Supplied By Facility): CTDIvol = ( 10.21 ) mGy, DLP = ( 1852.99 ) mGycm TECHNIQUE: Axial CT angiography multi-detector data acquisition was obtained from the to the following intravenous administration of IV 100mL Isovue-370. Axial images and MIP images were reconstructed from the axial data set. Post-processing of the angiographic images was performed, with multiplanar reformation and 3D reconstruction. Individualized dose optimization techniques were used for this CT. TECHNICAL QUALITY: Good COMPARISON: None. Descriptors of Narrowing: None (0%) Mild (< 50%) Moderate (50-70%) Severe (70-90%) Subtotal/Total Occlusion (90-100%) Non-Evaluable (technically non-diagnostic FINDINGS: Abdominal aorta: There is multifocal calcific plaquing without significant stenosis or aneurysm. Celiac and superior mesenteric arteries: Mild calcific plaquing without significant narrowing. Inferior mesenteric artery: No demonstrated narrowing. Right renal artery(arteries): Mild calcific plaquing without significant narrowing Left renal artery(arteries): Mild calcific plaquing without significant narrowing. Right common iliac artery: Multifocal calcific plaquing without significant narrowing. Right external iliac artery: Minor multifocal calcific plaquing without significant narrowing Right internal iliac artery: Mild calcific plaquing without significant narrowing. Left common iliac artery: Multifocal calcific plaquing without significant narrowing. Left external iliac artery: Mild multifocal calcific plaquing without significant narrowing. Left internal iliac artery: Mild calcific plaquing without significant narrowing RIGHT LOWER EXTREMITY Right common femoral artery: Calcific plaquing with high-grade segmental stenosis. Right profundus femoris: No demonstrated narrowing. Right superficial femoral: Patent proximal to mid superficial femoral artery graft Right popliteal artery: No demonstrated narrowing. Right tibioperoneal trunk: No demonstrated narrowing. Right anterior tibial artery: No demonstrated narrowing. Right posterior tibial artery: No demonstrated narrowing. Right peroneal artery: No demonstrated narrowing. LEFT LOWER EXTREMITY Left common femoral artery: Mild calcific plaquing without significant narrowing. Left profundus femoris: No demonstrated narrowing. Left superficial femoral: High-grade stenosis of the proximal superficial femoral artery which becomes occluded and reconstituted distally Left popliteal artery: No demonstrated narrowing. Left tibioperoneal trunk: Multifocal segmental stenoses Left anterior tibial artery: Multifocal segmental stenoses. Left posterior tibial artery: Multifocal segmental stenoses. Left peroneal artery: Multifocal segmental stenoses CT/CTA Abd w/Runoff W/WO Contrast IMPRESSION: Moderate to severe atherosclerotic disease with most severe involvement of the left lower extremity where there is high-grade stenosis of the proximal superficial femoral artery which becomes occluded and reconstituted distally with associated multifocal segmental stenoses of the calf vessels.. High-grade stenosis of the right common femoral artery with reconstituted patency of the superficial femoral artery graft Electronically Signed: Sylvain Allan MD at 19:05 EST ,
--- NOTE | 2024-06-11 18:16 | PN.HOSP_ITS ---
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, left leg (06/10/24) Other specified peripheral vascular diseases (06/10/24) Gangrene, not elsewhere classified (06/10/24) Non-pressure chronic ulcer of other part of unspecified foot with unspecified severity (06/10/24) Non-pressure chronic ulcer of other part of left foot with unspecified severity (06/10/24) Other acute osteomyelitis, left ankle and foot (06/10/24) nursing home (current) use of insulin (06/10/24) Subjective Subjective Patient was seen and examined today, podiatry notified me that the patient's noninvasive vascular studies were showing severe peripheral vascular disease, podiatry requested a vascular surgery consultation today. Vascular surgery stated that if the patient needed to undergo an angiogram it would not be done until next Sunday. Objective Data Objective Data Vital Signs: Vital Signs Temp Pulse Resp BP Pulse Ox O2 Del Method 98.3 F 85 16 167/81 H 93 Room Air 06/11/24 15:55 06/11/24 15:55 06/11/24 15:55 06/11/24 15:55 06/11/24 15:55 06/11/24 15:55 Oxygen Delivery Method Room Air Weight: 134 kg Body Mass Index (BMI) 38.9 Intake & Output: Intake and Output for Last 24 Hours 06/09/24 06/10/24 06/11/24 23:59 23:59 23:59 Intake Total 2413.2 / 2413.2 1340 / 1340 Output Total 300 / 300 1375 / 1375 Balance 2113.2 / 2113.2 -35 / -35 Lab / Micro Data 06/10/24 07:00 06/10/24 07:00 Labs: Laboratory Results - last 24 hr 06/10/24 20:59: POC Glucose 156 H 06/11/24 06:27: POC Glucose 215 H 06/11/24 12:09: POC Glucose 249 H 06/11/24 16:00: POC Glucose 272 H Micro: Microbiology 06/10/24 15:10 Bone - 5th Toe Gram Stain - Final 06/10/24 15:10 Bone - 5th Toe Wound Culture - Preliminary Staphylococcus species 06/10/24 15:07 Bone - 5th Toe Gram Stain - Final 06/10/24 15:07 Bone - 5th Toe Wound Culture - Preliminary Staphylococcus species GPC Poss Enterococcus sp 06/10/24 07:20 Wound - Left Foot Gram Stain - Final 06/10/24 07:20 Wound - Left Foot Wound Culture - Preliminary Staphylococcus aureus Radiography Diagnostic Testing: Radiology Impression Extremity Arterial Study 06/10/24 09:59 Interpretation Summary Right JASMYN 1, normal. Doppler/PVR waveforms of the right leg mildly diminished at rest. Left JASMYN 0.62, moderate arterial insufficiency. Doppler/PVR waveforms an segmental pressures reveal rlhrk-ophel-cxiqjuph femoral disease Ordering Physician: Floyd Shah Referring Physician: Floyd Ricketts Performed By: Contreras Dubois RVT and Student Foot X-Ray 06/10/24 15:45 IMPRESSION: Post procedure change of the left foot as above. Electronically Signed: Philip Alfaro MD at 7:18 EST , Physical Exam Narrative alert, oriented x3 and no apparent distress Constitutional Narrative: Class III obesity General Appearance: cooperative, well kempt and well developed Orientation / Consciousness: awake, oriented to person, oriented to place and oriented to time HEENT normocephalic, head/scalp atraumatic, hearing grossly normal bilaterally and moist oral mucous membranes Eyes PERRL, EOMs intact bilaterally and conjunctivae normal Neck supple, no JVD, thyroid normal and no carotid bruits General: trachea midline Resp normal respiratory effort, no retractions, no use of accessory muscles and clear to auscultation bilaterally Auscultation: Negative for rales, rhonchi or wheezes Cardio regular rate, regular rhythm, S1 normal heart sound, S2 normal heart sound, no murmurs, no rub and no gallops GI normal to inspection, nondistended, normoactive bowel sounds, soft to palpation, non-tender and non-distended Extremity Extremity Narrative: Patient's left lower leg and left foot is bandaged with surgical dressing, this was not removed today for examination Skin Skin Narrative: Patient has surgical dressing present over his left lower leg and left foot area, this was not removed for examination Neuro oriented x3, CN's II-XII intact bilaterally and no focal motor deficits Neuro Narrative: Decreased sensation to light touch and pain over the feet bilaterally Sensorium / Orientation: awake and alert Speech: speech normal Psych affect normal Assessment & Plan Assessment/Plan (1) 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 Gangrene left foot-secondary to peripheral vascular disease from type 2 diabetes poorly controlled-patient remains on IV antibiotics at this time per infectious diseases, patient will be seen by vascular surgery today for appropriate recommendations. #2 type 2 zlizlday-myptnfwhojzt-mxkfbdb will have fingerstick blood sugars monitored and sliding scale insulin will be used as indicated #3 peripheral vascular disease-again according to podiatry, patient has significant peripheral vascular disease and will see vascular surgery during his hospital stay. #4 hyperlipidemia-patient is on a statin #5 hypothyroidism-patient is on Synthroid #6 essential hypertension-patient will remain on his outpatient medications and they will be adjusted as needed #7 class III obesity-complicates care, management, recovery, and prognosis Total clinical time spent by myself addressing the patient's medical issues, reviewing all of his data, and collaborating with patient's care team: 35 minutes Charges/Coding Visit Charges Inpatient E&M: 79126 Subs Hosp L2
[2024-06-11 18:25] LABS: Hemoglobin A1c 7.5 % (3.8-5.6)
[2024-06-11 20:00] LABS: Vancomycin, Trough Level 12.7 ug/mL (5.0-15.0)
--- NOTE | 2024-06-11 20:15 | PCM.RX.CS ---
Consult Antibiotic Management Pharmacy has been consulted to manage selected antibiotic: Vancomycin Type of Intervention Type of Consult: Follow-up Suspected Infection Suspected Infection: Osteomyelitis Labs Labs: Sodium 135 mmol/L (136-145) L 06/10/24 07:00 Potassium 4.1 mmol/L (3.5-5.1) 06/10/24 07:00 Chloride 103 mmol/L (98-107) 06/10/24 07:00 Carbon Dioxide 23.0 mmol/L (21.0-32.0) 06/10/24 07:00 Anion Gap 9 (5-15) 06/10/24 07:00 BUN 8 mg/dL (7-18) 06/10/24 07:00 Creatinine 0.83 mg/dL (0.70-1.30) 06/10/24 07:00 Est GFR (MDRD) Af Amer 117 mL/min (>60) 06/10/24 07:00 Est GFR (MDRD) Non-Af 97 mL/min (>60) 06/10/24 07:00 BUN/Creatinine Ratio 9.7 RATIO (10-20) L 06/10/24 07:00 Glucose 180 mg/dL (74-106) H 06/10/24 07:00 Vancomycin Trough 12.7 ug/mL (5.0-15.0) 06/11/24 19:11 Microbiology Microbiology: Microbiology 06/10/24 15:10 Bone - 5th Toe Gram Stain - Final 06/10/24 15:10 Bone - 5th Toe Wound Culture - Preliminary Staphylococcus species 06/10/24 15:07 Bone - 5th Toe Gram Stain - Final 06/10/24 15:07 Bone - 5th Toe Wound Culture - Preliminary Staphylococcus species GPC Poss Enterococcus sp 06/10/24 07:20 Wound - Left Foot Gram Stain - Final 06/10/24 07:20 Wound - Left Foot Wound Culture - Preliminary Staphylococcus aureus Pharmacy Plan for Drug Dosing Pharmacy Plan for Drug Dosing: VANCOMYCIN LEVEL RECEIVED Current Vancomycin Dose: 2000MG Q12 Number of Doses Received: 3 Vancomycin Level: 12.7 MG/DL Hours Since Last Dose: 10.5 Renal Function: SCR 0.83, CRCL 112 ML/MIN (FROM 06/10) Renal Function Trend: NO NEW LEVEL Lab/Micro: Wound cx with staph Vancomycin Plan/Comments: 10.5 hour trough is already subtherapeutic at 12.7 mg/dL (goal 15-20). Will change dose to 1250mg Q8 and get a trough prior to 4th dose of new regimen. Pending Level: 06/12/24 @ 1999 Pharmacy Service will continue to monitor and adjust dosing as required.
[2024-06-11] MEDS: Vancomycin HCl 1,250 MG in 0.9% Normal Saline (250mL Bag) 250 ML 167 MG IV (21:15)
[2024-06-11 21:55] VITALS: BP 170/83; PULSE 85; RESP 16; TEMP 36.8; O2SAT 92
[2024-06-11] MEDS: Atorvastatin Calcium 20 MG Tablet PO (22:57)
[2024-06-12] VITALS (7 sets, daily range): BP systolic 136–154; BP diastolic 78–83; PULSE 80–88; RESP 14–16; TEMP 36.6–36.8; O2SAT 91–95
[2024-06-12 00:51] LABS: Bedside Glucose 250 mg/dL (74-106)
[2024-06-12] MEDS: Vancomycin HCl 1,250 MG in 0.9% Normal Saline (250mL Bag) 250 ML 167 MG IV ×3 (04:29→21:33)
[2024-06-12] MEDS: Piperacil/Tazobactam 3.375 GM in 0.9% Normal Saline (50mL MB+) 50 ML IV ×3 (06:01→21:37)
[2024-06-12] MEDS: Levothyroxine 125 MCG Tablet PO (06:05)
[2024-06-12] MEDS: Insulin Lispro 100 UNIT/ML INSULN.PEN SC ×4 (06:09→21:48)
[2024-06-12 07:10] LABS: Bedside Glucose 223 mg/dL (74-106)
[2024-06-12 07:22] LABS: Absolute Neutrophil Count 8.3 X10^3/uL (2.0-7.7); Basophil# 0.04 X10^3/uL; Basophil% 0.4 % (0-1); Eosinophil# 0.09 X10^3/uL; Eosinophils% 0.8 % (0-5); Hematocrit 37.8 % (40-54); Lymphocyte % 12.8 % (19-41); Mean Corp Hgb Conc 31.7 g/dL (32-36); Mean Corpuscular Hgb 28.3 pg (27.0-32.0); Mean Corpuscular Volume 89.2 fL (80-94); Mean Platelet Vol. 8.5 fl (6.2-12.0); Monocyte# 1.07 X10^3/uL; Monocyte% 9.8 % (0-10); NRBC Flagged by Analyzer 0 % (0-5); Neutrophil # 8.28 X10^3/uL (2.7-7.7); Neutrophil % 75.4 % (47-70); Platelet Count 467 K/mm3 (150-450); RBC Distribution Width CV 14.1 % (11.6-14.6); RBC Distribution Width SD 45.4 fl (35.1-43.9); Red Blood Count 4.24 M/mm3 (4.6-6.2)
[2024-06-12 07:45] LABS: ALB/GLOB Ratio 0.4 RATIO (0.9-2.4); AST(SGOT) 21 U/L (15-37); Alanine Aminotransfer ALT/SGPT 35 U/L (16-61); Albumin, Serum 2.2 g/dL (3.2-5.0); Alkaline Phosphatase 48 U/L (45-117); Anion Gap 4 (5-15); BUN 8 mg/dL (7-18); BUN/Creat Ratio 11.6 RATIO (10-20); Calcium,Total 8.9 mg/dL (8.5-10.1); Chloride 104 mmol/L (98-107); Creatinine, Serum 0.69 mg/dL (0.70-1.30); EST Glomerular Filtration Rate 120 mL/min (>60); Est Glom Filt Rate - Afr Amer 145 mL/min (>60); Estimated Creatinine Clearance 116.35 ml/min; Glucose 239 mg/dL (74-106); Potassium 4.3 mmol/L (3.5-5.1); Protein, Total 7.2 g/dL (6.4-8.2); Sodium Level 135 mmol/L (136-145)
--- NOTE | 2024-06-12 08:32 | PN.HOSP_ITS ---
Reason for Visit Reason for Visit: Diagnoses Type 2 diabetes mellitus with diabetic polyneuropathy (06/10/24) Type 2 diabetes mellitus with foot ulcer (06/10/24) Atherosclerosis of [place] arteries of extremities with gangrene, left leg (06/10/24) Other specified peripheral vascular diseases (06/10/24) Gangrene, not elsewhere classified (06/10/24) Non-pressure chronic ulcer of other part of unspecified foot with unspecified severity (06/10/24) Non-pressure chronic ulcer of other part of left foot with unspecified severity (06/10/24) Other acute osteomyelitis, left ankle and foot (06/10/24) skilled nursing (current) use of insulin (06/10/24) Subjective Subjective Feels good. No new complaints. Objective Data Objective Data Vital Signs: Vital Signs Temp Pulse Resp BP Pulse Ox O2 Del Method 36.6 C 82 16 150/83 H 92 Room Air 06/12/24 06:00 06/12/24 06:00 06/12/24 06:00 06/12/24 06:00 06/12/24 06:00 06/12/24 06:00 Oxygen Delivery Method Room Air Weight: 134 kg Body Mass Index (BMI) 38.9 Intake & Output: Intake and Output for Last 24 Hours 06/10/24 06/11/24 06/12/24 23:59 23:59 23:59 Intake Total 2413.2 / 2413.2 1665 / 1905 685 / 685 Output Total 300 / 300 1375 / 1925 950 / 950 Balance 2113.2 / 2113.2 290 / -20 -265 / -265 Lab / Micro Data 06/12/24 06:50 06/12/24 06:50 Labs: Laboratory Results - last 24 hr 06/10/24 07:00: Hemoglobin A1c 7.5 H 06/11/24 12:09: POC Glucose 249 H 06/11/24 16:00: POC Glucose 272 H 06/11/24 19:11: Vancomycin Trough 12.7 06/11/24 22:47: POC Glucose 250 H 06/12/24 06:08: POC Glucose 223 H 06/12/24 06:50: WBC 11.0, RBC 4.24 L, Hgb 12.0 L, Hct 37.8 L, MCV 89.2, MCH 28.3, MCHC 31.7 L, RDW Std Deviation 45.4 H, RDW Coeff of Nyla 14.1, Plt Count 467 H, MPV 8.5, Immature Gran % (Auto) 0.800, Neut % (Auto) 75.4 H, Lymph % (Auto) 12.8 L, [place] % (Auto) 9.8, Eos % (Auto) 0.8, Baso % (Auto) 0.4, Absolute Neuts (auto) 8.3 H, Absolute Lymphs (auto) 1.40, Nucleated RBC % 0, Sodium 135 L , Potassium 4.3, Chloride 104, Carbon Dioxide 26.0, Anion Gap 4 L, BUN 8, C reatinine 0.69 L, Estim Creat Clear Calc 116.35, Est GFR (MDRD) Af Amer 145, Est GFR (MDRD) Non-Af 120, BUN/Creatinine Ratio 11.6, Glucose 239 H, Calcium 8.9, Total Bilirubin 0.50, AST 21, ALT 35, Alkaline Phosphatase 48, Total Protein 7.2, Albumin 2.2 L, Globulin 5.0 H, Albumin/Globulin Ratio 0.4 L Micro: Microbiology 06/10/24 07:20 Wound - Left Foot Gram Stain - Final 06/10/24 07:20 Wound - Left Foot Wound Culture - Final Staphylococcus aureus 06/10/24 07:20 Wound - Left Foot Anaerobic Culture - Preliminary Checking for anaerobes, further studies to follow. 06/10/24 15:10 Bone - 5th Toe Gram Stain - Final 06/10/24 15:10 Bone - 5th Toe Wound Culture - Preliminary Staphylococcus species 06/10/24 15:07 Bone - 5th Toe Gram Stain - Final 06/10/24 15:07 Bone - 5th Toe Wound Culture - Preliminary Staphylococcus species GPC Poss Enterococcus sp Radiography Diagnostic Testing: Radiology Impression Extremity Arterial Study 06/10/24 09:59 Interpretation Summary Right JASMYN 1, normal. Doppler/PVR waveforms of the right leg mildly diminished at rest. Left JASMYN 0.62, moderate arterial insufficiency. Doppler/PVR waveforms an segmental pressures reveal scmzr-ayspu-zxedareh femoral disease Ordering Physician: Floyd Shah Referring Physician: Floyd Ricketts Performed By: Contreras Dubois RVT and Student Abdomen/Pelvis CTA 06/11/24 17:11 IMPRESSION: Moderate to severe atherosclerotic disease with most severe involvement of the left lower extremity where there is high-grade stenosis of the proximal superficial femoral artery which becomes occluded and reconstituted distally with associated multifocal segmental stenoses of the calf vessels.. High-grade stenosis of the right common femoral artery with reconstituted patency of the superficial femoral artery graft Electronically Signed: Sylvain Allan MD at 19:05 EST Reading Location ID and State: [address] [place] [address] Tel , Service support , Physical Exam Const alert and no apparent distress HEENT head/scalp atraumatic and moist oral mucous membranes Resp normal respiratory effort, no retractions, no use of accessory muscles and clear to auscultation bilaterally Cardio regular rate, regular rhythm, S1 normal heart sound and S2 normal heart sound GI normal to inspection, nondistended, normoactive bowel sounds, soft to palpation, non-tender and non-distended Extremity Extremity Narrative: left foot wrapped--did not remove. Neuro Sensorium / Orientation: awake and alert Assessment & Plan Assessment/Plan (1) Atherosclerosis of [place] arteries of extremities with gangrene, left leg: (2) Gangrene, not elsewhere classified: PLAN: Plan Gangrene left foot * secondary to peripheral vascular disease from type 2 diabetes poorly controlled * abx with pip/tazo and vancomycin * plan angiogram next week. * podiatry, Vascular and ID consult. Chronic conditions: * DM2: resume NPH. SSI. a1c 7.5 * PAD: complicates care and recovery. on ASA, clopidogrel and statin * HLD: statin * hypothyroidism: levothyroxine. * Obesity class II: complicates care and recovery. VTE prophylaxis: SQ heparin. Charges/Coding Visit Charges Inpatient E&M: 90611 Subs Hosp L2
[2024-06-12] MEDS: Lisinopril 10 MG Tablet PO (09:21)
[2024-06-12] MEDS: Clopidogrel Bisulfate 75 MG Tablet PO (09:21)
[2024-06-12] MEDS: Ascorbic Acid 500 MG Tablet PO (09:22)
[2024-06-12] MEDS: Aspirin 81 MG TAB.CHEW PO (09:22)
[2024-06-12] MEDS: Heparin Injection (Vial) 5,000 UNIT/ML VIAL 5000 UNIT SC ×2 (09:22→20:10)
[2024-06-12] MEDS: Acetaminophen 325 MG Tablet 650 MG PO ×2 (10:29→20:10)
[2024-06-12] MEDS: oxyCODONE 5 MG Tablet PO ×3 (10:29→20:10)
[2024-06-12 11:57] LABS: Bedside Glucose 291 mg/dL (74-106)
--- NOTE | 2024-06-12 14:29 | PCM.PROGNOTE ---
Subjective Subjective Patient was seen today for follow up on left foot. He is resting comfortably in bed watching football, no complaints. No f/c/n/v. Objective Data Objective Data Vital Signs: Vital Signs Temp Pulse Resp BP Pulse Ox O2 Del Method 98 F 88 16 146/78 H 95 Room Air 06/12/24 09:45 06/12/24 09:45 06/12/24 09:45 06/12/24 09:45 06/12/24 14:00 06/12/24 14:00 Oxygen Delivery Method Room Air Weight: 134 kg Body Mass Index (BMI) 38.9 Intake & Output: Intake and Output for Last 24 Hours 06/10/24 06/11/24 06/12/24 23:59 23:59 23:59 Intake Total 2413.2 / 2413.2 1665 / 1905 1535 / 1535 Output Total 300 / 300 1375 / 1925 950 / 950 Balance 2113.2 / 2113.2 290 / -20 585 / 585 Lab / Micro Data 06/12/24 06:50 06/12/24 06:50 Labs: Laboratory Results - last 24 hr 06/10/24 07:00: Hemoglobin A1c 7.5 H 06/11/24 16:00: POC Glucose 272 H 06/11/24 19:11: Vancomycin Trough 12.7 06/11/24 22:47: POC Glucose 250 H 06/12/24 06:08: POC Glucose 223 H 06/12/24 06:50: WBC 11.0, RBC 4.24 L, Hgb 12.0 L, Hct 37.8 L, MCV 89.2, MCH 28.3, MCHC 31.7 L, RDW Std Deviation 45.4 H, RDW Coeff of Nyla 14.1, Plt Count 467 H, MPV 8.5, Immature Gran % (Auto) 0.800, Neut % (Auto) 75.4 H, Lymph % (Auto) 12.8 L, [place] % (Auto) 9.8, Eos % (Auto) 0.8, Baso % (Auto) 0.4, Absolute Neuts (auto) 8.3 H, Absolute Lymphs (auto) 1.40, Nucleated RBC % 0, Sodium 135 L, Potassium 4.3, Chloride 104, Carbon Dioxide 26.0, Anion Gap 4 L, BUN 8, Creatinine 0.69 L, Estim Creat Clear Calc 116.35, Est GFR (MDRD) Af Amer 145, Est GFR (MDRD) Non-Af 120, BUN/Creatinine Ratio 11.6, Glucose 239 H, Calcium 8.9, Total Bilirubin 0.50, AST 21, ALT 35, Alkaline Phosphatase 48, Total Protein 7.2, Albumin 2.2 L, Globulin 5.0 H, Albumin/Globulin Ratio 0.4 L 06/12/24 11:29: POC Glucose 291 H Micro: Microbiology 06/10/24 15:10 Bone - 5th Toe Gram Stain - Final 06/10/24 15:10 Bone - 5th Toe Wound Culture - Preliminary Staphylococcus species 06/10/24 15:07 Bone - 5th Toe Gram Stain - Final 06/10/24 15:07 Bone - 5th Toe Wound Culture - Preliminary Staphylococcus aureus GPC Poss Enterococcus sp 06/10/24 07:20 Wound - Left Foot Gram Stain - Final 06/10/24 07:20 Wound - Left Foot Wound Culture - Final Staphylococcus aureus 06/10/24 07:20 Wound - Left Foot Anaerobic Culture - Preliminary Checking for anaerobes, further studies to follow. Radiography Diagnostic Testing: Radiology Impression Extremity Arterial Study 06/10/24 09:59 Interpretation Summary Right JASMYN 1, normal. Doppler/PVR waveforms of the right leg mildly diminished at rest. Left JASMYN 0.62, moderate arterial insufficiency. Doppler/PVR waveforms an segmental pressures reveal [id number]-julhu-qyhljxqr femoral disease Ordering Physician: Floyd Shah Referring Physician: Floyd Ricketts Performed By: Contreras Dubois RVT and Student Abdomen/Pelvis CTA 06/11/24 17:11 IMPRESSION: Moderate to severe atherosclerotic disease with most severe involvement of the left lower extremity where there is high-grade stenosis of the proximal superficial femoral artery which becomes occluded and reconstituted distally with associated multifocal segmental stenoses of the calf vessels.. High-grade stenosis of the right common femoral artery with reconstituted patency of the superficial femoral artery graft Electronically Signed: Sylvain Allan MD at 19:05 EST Reading Location ID and State: [facility] / [place] Tel , Service support , Physical Exam Const alert, oriented x3 and no apparent distress Constitutional Narrative: Left foot s/p 5th ray debridement down to and including bone - no necrosis, no visible abscess, no purulence, no maloder, no fluctuance, no crepitus, there is some residual mild cellulitis to wound margins - much improved, tissues of wound appear healthy and viable and down to fascia/muscle and bone, no evidence of acute ischemia left foot at this time, CFT < 3 sec to toes, there is some edema to left foot/ankle c/w hx of infection but much improved. Hemostasis achieved wound left foot. 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 Reviewed diagnostic data. s/p left foot debridement on 06/10/2024 - clinically foot stabilized from infection standpoint, awaiting surgical cultures and path results. He remains on IV antibiotics with Dr. Rowland on consult. Noninvasive lower extremity arterial studies was ordered and reviewed - Vascular surgery service consulted and following. No weightbearing left foot. Wound care left foot - dressing was changed today - cleansed with normal saline solution, applied normal saline solution wet to dry gauze dressing with overlying kerlix and sascha dressing. Change BID. Podiatry will continue to follow.
[2024-06-12] MEDS: Insulin NPH Human 100 UNITS/ML PEN 40 UNITS SC (16:30)
[2024-06-12 16:49] LABS: Bedside Glucose 218 mg/dL (74-106)
[2024-06-12] MEDS: Atorvastatin Calcium 20 MG Tablet PO (20:10)
[2024-06-12 21:07] LABS: Vancomycin, Trough Level 15.8 ug/mL (5.0-15.0)
--- NOTE | 2024-06-12 21:24 | PHA.PHARE_ITS ---
Consult Antibiotic Management Pharmacy has been consulted to manage selected antibiotic: Vancomycin Type of Intervention Type of Consult: Follow-up Labs Labs: Sodium 135 mmol/L (136-145) L 06/12/24 06:50 Potassium 4.3 mmol/L (3.5-5.1) 06/12/24 06:50 Chloride 104 mmol/L (98-107) 06/12/24 06:50 Carbon Dioxide 26.0 mmol/L (21.0-32.0) 06/12/24 06:50 Anion Gap 4 (5-15) L 06/12/24 06:50 BUN 8 mg/dL (7-18) 06/12/24 06:50 Creatinine 0.69 mg/dL (0.70-1.30) L 06/12/24 06:50 Est GFR (MDRD) Af Amer 145 mL/min (>60) 06/12/24 06:50 Est GFR (MDRD) Non-Af 120 mL/min (>60) 06/12/24 06:50 BUN/Creatinine Ratio 11.6 RATIO (10-20) 06/12/24 06:50 Glucose 239 mg/dL (74-106) H 06/12/24 06:50 Vancomycin Trough 15.8 ug/mL (5.0-15.0) H 06/12/24 20:03 Microbiology Microbiology: Microbiology 06/10/24 07:36 Blood Culture (Wb) - Anticubital Right Blood Culture - Preliminary No growth in 48 hours. 06/10/24 07:36 Blood Culture (Wb) - Anticubital Left Blood Culture - Pre liminary No growth in 48 hours. 06/10/24 15:10 Bone - 5th Toe Gram Stain - Final 06/10/24 15:10 Bone - 5th Toe Wound Culture - Preliminary Staphylococcus species 06/10/24 15:07 Bone - 5th Toe Gram Stain - Final 06/10/24 15:07 Bone - 5th Toe Wound Culture - Preliminary Staphylococcus aureus GPC Poss Enterococcus sp 06/10/24 07:20 Wound - Left Foot Gram Stain - Final 06/10/24 07:20 Wound - Left Foot Wound Culture - Final Staphylococcus aureus 06/10/24 07:20 Wound - Left Foot Anaerobic Culture - Preliminary Checking for anaerobes, further studies to follow. Goal Trough Goal Trough: 15-20 mcg/mL Pharmacy Plan for Drug Dosing Pharmacy Plan for Drug Dosing: Pharmacy Service will continue to monitor and adjust dosing as required. TROUGH 15.8 @ 6.5 HOURS. NO CHANGES, FOLLOW UP TROUGH IN 2 DAYS Follow-Up Labs Follow-Up Labs: Trough: Vancomycin Date/Time Labs Ordered Labs to be done on [date and time ordered]: 06/14 @ 1999
[2024-06-12] MEDS: 0.9% Saline Lock 10 ML Syringe IV (21:33)
[2024-06-12] MEDS: Vancomycin Trough/Random Due 1 LAB MC (21:33)
[2024-06-12 22:30] LABS: Bedside Glucose 276 mg/dL (74-106)
[2024-06-13] MEDS: oxyCODONE 5 MG Tablet PO ×4 (03:27→21:33)
[2024-06-13] MEDS: Acetaminophen 325 MG Tablet 650 MG PO ×3 (03:27→21:33)
[2024-06-13] MEDS: Vancomycin HCl 1,250 MG in 0.9% Normal Saline (250mL Bag) 250 ML 125 MG IV (03:27)
[2024-06-13 03:30] VITALS: BP 153/83; PULSE 80; RESP 14; TEMP 36.6; O2SAT 94
[2024-06-13] MEDS: Insulin Lispro 100 UNIT/ML INSULN.PEN SC ×4 (05:32→21:36)
[2024-06-13] MEDS: Levothyroxine 125 MCG Tablet PO (05:32)
[2024-06-13] MEDS: Piperacil/Tazobactam 3.375 GM in 0.9% Normal Saline (50mL MB+) 50 ML IV ×3 (05:33→22:31)
[2024-06-13 05:50] LABS: Absolute Neutrophil Count 8.1 X10^3/uL (2.0-7.7); Basophil# 0.04 X10^3/uL; Basophil% 0.4 % (0-1); Eosinophil# 0.15 X10^3/uL; Eosinophils% 1.4 % (0-5); Hematocrit 38.4 % (40-54); Hemoglobin 11.9 g/dL (13.0-16.5); Lymphocyte % 12.2 % (19-41); Mean Corpuscular Hgb 27.5 pg (27.0-32.0); Mean Corpuscular Volume 88.9 fL (80-94); Mean Platelet Vol. 8.4 fl (6.2-12.0); Monocyte# 0.98 X10^3/uL; Monocyte% 9.2 % (0-10); NRBC Flagged by Analyzer 0 % (0-5); Neutrophil # 8.06 X10^3/uL (2.7-7.7); Platelet Count 461 K/mm3 (150-450); RBC Distribution Width CV 13.7 % (11.6-14.6); Red Blood Count 4.32 M/mm3 (4.6-6.2); White Blood Count 10.6 K/mm3 (4.4-11.0)
[2024-06-13 06:13] LABS: Bedside Glucose 247 mg/dL (74-106)
[2024-06-13 06:15] LABS: Anion Gap 6 (5-15); BUN 10 mg/dL (7-18); BUN/Creat Ratio 17.5 RATIO (10-20); Calcium,Total 8.9 mg/dL (8.5-10.1); Chloride 105 mmol/L (98-107); Creatinine, Serum 0.57 mg/dL (0.70-1.30); EST Glomerular Filtration Rate 148 mL/min (>60); Est Glom Filt Rate - Afr Amer 179 mL/min (>60); Estimated Creatinine Clearance 116.35 ml/min; Glucose 250 mg/dL (74-106); Potassium 4.2 mmol/L (3.5-5.1); Sodium Level 137 mmol/L (136-145)
[2024-06-13 08:20] VITALS: BP 161/83; PULSE 75; RESP 18; TEMP 35.7; O2SAT 93
[2024-06-13] MEDS: Insulin NPH Human 100 UNITS/ML PEN 40 UNITS SC ×2 (08:25→17:01)
[2024-06-13] MEDS: Lisinopril 10 MG Tablet PO (08:26)
[2024-06-13] MEDS: Aspirin 81 MG TAB.CHEW PO (08:26)
[2024-06-13] MEDS: Clopidogrel Bisulfate 75 MG Tablet PO (08:26)
[2024-06-13] MEDS: Heparin Injection (Vial) 5,000 UNIT/ML VIAL 5000 UNIT SC ×2 (08:26→21:32)
[2024-06-13] MEDS: Ascorbic Acid 500 MG Tablet PO (08:26)
--- NOTE | 2024-06-13 09:32 | CASEMGMT ---
Discharge Planning A list of SNF providers including quality and resource use data and consistent with the patient's preferred geographic region, medical needs, and insurance network were printed and provided from the [employer] Guide to the patient. Shannon Bentley, Discharge Planning Asst.
--- NOTE | 2024-06-13 09:34 | CASEMGMT ---
FRANCOISE SMITH in to discuss discharge planning with patient. Patient states he realizes he will not be able to safely discharge to home and would like to go to SNF at discharge. Patient states his granddaughter works at SNF in [place] and would like to discuss with her. FRANCOISE SMITH updated patient that list of in-network SNFs to review and provide preferences. Patient voiced appreciation and understanding. Discharge urban planning teacher update to provide SNF list to patient. CM will continue to follow this patient and plan for a safe discharge.
[2024-06-13 11:52] LABS: Bedside Glucose 291 mg/dL (74-106)
[2024-06-13] MEDS: Vancomycin HCl 1,250 MG in 0.9% Normal Saline (250mL Bag) 250 ML 167 MG IV ×2 (11:58→20:51)
--- NOTE | 2024-06-13 12:07 | PCM.PROGNOTE ---
Subjective Subjective Patient was seen today for follow up left foot, had dressing changed this morning. He is resting comfortably in bed watching TV, no new complaints. Awaiting vascular angiogram on Sunday. Objective Data Objective Data Vital Signs: Vital Signs Temp Pulse Resp BP Pulse Ox O2 Del Method 96.2 F L 75 18 161/83 H 93 Room Air 06/13/24 08:20 06/13/24 08:20 06/13/24 08:20 06/13/24 08:20 06/13/24 08:20 06/13/24 08:20 Oxygen Delivery Method Room Air Weight: 134 kg Body Mass Index (BMI) 38.9 Intake & Output: Intake and Output for Last 24 Hours 06/11/24 06/12/24 06/13/24 23:59 23:59 23:59 Intake Total 1665 / 1905 2535 / 2535 1175 / 1175 Output Total 1375 / 1925 2325 / 2775 1250 / 1250 Balance 290 / -20 210 / -240 -75 / -75 Lab / Micro Data 06/13/24 05:10 06/13/24 05:10 Labs: Laboratory Results - last 24 hr 06/12/24 16:24: POC Glucose 218 H 06/12/24 20:03: Vancomycin Trough 15.8 H 06/12/24 21:48: POC Glucose 276 H 06/13/24 05:10: WBC 10.6, RBC 4.32 L, Hgb 11.9 L, Hct 38.4 L, MCV 88.9, MCH 27.5, MCHC 31.0 L, RDW Std Deviation 45.0 H, RDW Coeff of Nyla 13.7, Plt Count 461 H, MPV 8.4, Immature Gran % (Auto) 0.800, Neut % (Auto) 76.0 H, Lymph % (Auto) 12.2 L, [place] % (Auto) 9.2, Eos % (Auto) 1.4, Baso % (Auto) 0.4, Absolute Neuts (auto) 8.1 H, Absolute Lymphs (auto) 1.30, Nucleated RBC % 0, Sodium 137, Potassium 4.2, Chloride 105, Carbon Dioxide 26.0, Anion Gap 6, BUN 10, Creatinine 0.57 L, Estim Creat Clear Calc 116.35, Est GFR (MDRD) Af Amer 179, Est GFR (MDRD) Non-Af 148, BUN/Creatinine Ratio 17.5, Glucose 250 H, Calcium 8.9 06/13/24 05:30: POC Glucose 247 H 06/13/24 11:33: POC Glucose 291 H Micro: Microbiology 06/10/24 07:20 Wound - Left Foot Gram Stain - Final 06/10/24 07:20 Wound - Left Foot Wound Culture - Preliminary Staphylococcus aureus GPC Poss Enterococcus sp 06/10/24 07:20 Wound - Left Foot Anaerobic Culture - Preliminary Checking for anaerobes, further studies to follow. 06/10/24 15:07 Bone - 5th Toe Gram Stain - Final 06/10/24 15:07 Bone - 5th Toe Wound Culture - Preliminary Staphylococcus aureus Enterococcus faecalis Coag Negative Staph 06/10/24 15:07 Bone - 5th Toe Anaerobic Culture - Preliminary 06/10/24 15:10 Bone - 5th Toe Gram Stain - Final 06/10/24 15:10 Bone - 5th Toe Wound Culture - Preliminary Staphylococcus epidermidis Coag Negative Staph 06/10/24 15:10 Bone - 5th Toe Anaerobic Culture - Preliminary 06/10/24 07:36 Blood Culture (Wb) - Anticubital Right Blood Culture - Preliminary No growth in 48 hours. 06/10/24 07:36 Blood Culture (Wb) - Anticubital Left Blood Culture - Preliminary No growth in 48 hours. Physical Exam Const alert, oriented x3 and no apparent distress Assessment & Plan Assessment/Plan (1) Diabetic ulcer of left foot: (2) Acute osteomyelitis of left foot: (3) Type 2 diabetes mellitus with foot ulcer: (4) Other specified peripheral vascular diseases: (5) Type 2 diabetes mellitus with diabetic polyneuropathy: QUALIFIERS: Diabetes mellitus [facility] insulin use: with watermaster use Qualified Code(s): E11.42 - Type 2 diabetes mellitus with diabetic polyneuropathy; Z79.4 - [facility] (current) use of insulin (6) Gangrene, not elsewhere classified: PLAN: Plan Evaluation performed. Reviewed diagnostic data. s/p left foot debridement on 06/10/2024 - clinically foot stabilized from infection standpoint. Reviewed available culture results. Clearance fragment left 5th metatarsal and noted CoNS and staph epi, he remains on IV antibiotics Vanc/Adriana, Dr. Rowland on consult. Noninvasive lower extremity arterial studies was ordered and reviewed - Vascular surgery service consulted and following, planning angiogram on Sunday. No weightbearing left foot. Wound care left foot - BID normal saline solution wet to dry gauze dressing with overlying kerlix and sascha dressing changes. Podiatry will continue to follow.
--- NOTE | 2024-06-13 12:36 | PN.HOSP_ITS ---
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 Objective Data Objective Data Vital Signs: Vital Signs Temp Pulse Resp BP Pulse Ox O2 Del Method 35.7 C L 75 18 161/83 H 93 Room Air 06/13/24 08:20 06/13/24 08:20 06/13/24 08:20 06/13/24 08:20 06/13/24 08:20 06/13/24 08:20 Oxygen Delivery Method Room Air Weight: 134 kg Body Mass Index (BMI) 38.9 Intake & Output: Intake and Output for Last 24 Hours 06/11/24 06/12/24 06/13/24 23:59 23:59 23:59 Intake Total 1665 / 1905 2535 / 2535 1175 / 1175 Output Total 1375 / 1925 2325 / 2775 1250 / 1250 Balance 290 / -20 210 / -240 -75 / -75 Lab / Micro Data 06/13/24 05:10 06/13/24 05:10 Labs: Laboratory Results - last 24 hr 06/12/24 16:24: POC Glucose 218 H 06/12/24 20:03: Vancomycin Trough 15.8 H 06/12/24 21:48: POC Glucose 276 H 06/13/24 05:10: WBC 10.6, RBC 4.32 L, Hgb 11.9 L, Hct 38.4 L, MCV 88.9, MCH 27.5, MCHC 31.0 L, RDW Std Deviation 45.0 H, RDW Coeff of Nyla 13.7, Plt Count 461 H, MPV 8.4, Immature Gran % (Auto) 0.800, Neut % (Auto) 76.0 H, Lymph % (Auto) 12.2 L, [place] % (Auto) 9.2, Eos % (Auto) 1.4, Baso % (Auto) 0.4, Absolute Neuts (auto) 8.1 H, Absolute Lymphs (auto) 1.30, Nucleated RBC % 0, Sodium 137, Potassium 4.2, Chloride 105, Carbon Dioxide 26.0, Anion Gap 6, BUN 10, C reatinine 0.57 L, Estim Creat Clear Calc 116.35, Est GFR (MDRD) Af Amer 179, Est GFR (MDRD) Non-Af 148, BUN/Creatinine Ratio 17.5, Glucose 250 H, Calcium 8.9 06/13/24 05:30: POC Glucose 247 H 06/13/24 11:33: POC Glucose 291 H Micro: Microbiology 06/10/24 07:20 Wound - Left Foot Gram Stain - Final 06/10/24 07:20 Wound - Left Foot Wound Culture - Preliminary Staphylococcus aureus GPC Poss Enterococcus sp 06/10/24 07:20 Wound - Left Foot Anaerobic Culture - Preliminary Checking for anaerobes, further studies to follow. 06/10/24 15:07 Bone - 5th Toe Gram Stain - Final 06/10/24 15:07 Bone - 5th Toe Wound Culture - Preliminary Staphylococcus aureus Enterococcus faecalis Coag Negative Staph 06/10/24 15:07 Bone - 5th Toe Anaerobic Culture - Preliminary 06/10/24 15:10 Bone - 5th Toe Gram Stain - Final 06/10/24 15:10 Bone - 5th Toe Wound Culture - Preliminary Staphylococcus epidermidis Coag Negative Staph 06/10/24 15:10 Bone - 5th Toe Anaerobic Culture - Preliminary 06/10/24 07:36 Blood Culture (Wb) - Anticubital Right Blood Culture - Preliminary No growth in 48 hours. 06/10/24 07:36 Blood Culture (Wb) - Anticubital Left Blood Culture - Preliminary No growth in 48 hours. Physical Exam Const alert and no apparent distress HEENT head/scalp atraumatic and moist oral mucous membranes Resp normal respiratory effort, no retractions, no use of accessory muscles and clear to auscultation bilaterally Cardio regular rate, regular rhythm, S1 normal heart sound and S2 normal heart sound GI normal to inspection, nondistended, normoactive bowel sounds, soft to palpation, non-tender, non-distended and hepatosplenomegaly Extremity full ROM Extremity Narrative: left foot wrapped--did not remove. Neuro Sensorium / Orientation: awake and alert Assessment & Plan Assessment/Plan (1) Atherosclerosis of [place] arteries of extremities with gangrene, left leg: (2) Gangrene, not elsewhere classified: PLAN: Plan Gangrene left foot * secondary to peripheral vascular disease from type 2 diabetes poorly controlled * abx with pip/tazo and vancomycin * plan angiogram next week. * podiatry, Vascular and ID consult. * bone culture showed Staph epi and REAL ESTATE FINANCIAL ANALYST and GPC (possible enterococcus sp) Chronic conditions: * DM2: resume NPH. SSI. a1c 7.5 * PAD: complicates care and recovery. on ASA, clopidogrel and statin * HLD: statin * hypothyroidism: levothyroxine. * Obesity class II: complicates care and recovery. VTE prophylaxis: SQ heparin. Charges/Coding Visit Charges Inpatient E&M: 61868 Subs Hosp L2
--- NOTE | 2024-06-13 12:36 | WOUNDNOTE ---
wound photo: left foot
[2024-06-13 13:00] VITALS: BP 157/71; PULSE 86; RESP 18; TEMP 36.8; O2SAT 92
[2024-06-13 16:10] LABS: Bedside Glucose 281 mg/dL (74-106)
[2024-06-13 17:10] VITALS: BP 158/79; PULSE 83; RESP 18; TEMP 36.9; O2SAT 93
[2024-06-13] MEDS: Atorvastatin Calcium 20 MG Tablet PO (21:33)
[2024-06-13 21:59] VITALS: PULSE 77; O2SAT 93
[2024-06-13 23:00] VITALS: BP 158/77; PULSE 77; RESP 18; TEMP 36.1; O2SAT 93
[2024-06-14] MEDS: Acetaminophen 325 MG Tablet 650 MG PO ×3 (03:40→21:37)
[2024-06-14] MEDS: 0.9% Saline Lock 10 ML Syringe IV (03:40)
[2024-06-14] MEDS: oxyCODONE 5 MG Tablet PO ×3 (03:40→21:37)
[2024-06-14] MEDS: Vancomycin HCl 1,250 MG in 0.9% Normal Saline (250mL Bag) 250 ML 167 MG IV ×3 (03:55→21:19)
[2024-06-14 05:00] VITALS: BP 158/84; PULSE 85; RESP 18; TEMP 35.8; O2SAT 94
[2024-06-14] MEDS: Levothyroxine 125 MCG Tablet PO (05:56)
[2024-06-14] MEDS: Piperacil/Tazobactam 3.375 GM in 0.9% Normal Saline (50mL MB+) 50 ML IV ×3 (05:56→23:00)
--- NOTE | 2024-06-14 07:44 | PN.HOSP_ITS ---
Reason for Visit Reason for Visit: Diagnoses Type 2 diabetes mellitus with diabetic polyneuropathy (06/10/24) Type 2 diabetes mellitus with foot ulcer (06/10/24) Atherosclerosis of [place] arteries of extremities with gangrene, left leg (06/10/24) Other specified peripheral vascular diseases (06/10/24) Gangrene, not elsewhere classified (06/10/24) Non-pressure chronic ulcer of other part of unspecified foot with unspecified severity (06/10/24) Non-pressure chronic ulcer of other part of left foot with unspecified severity (06/10/24) Other acute osteomyelitis, left ankle and foot (06/10/24) 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 Objective Data Objective Data Vital Signs: Vital Signs Temp Pulse Resp BP Pulse Ox O2 Del Method 35.8 C L 85 18 158/84 H 94 Room Air 06/14/24 05:00 06/14/24 05:00 06/14/24 05:00 06/14/24 05:00 06/14/24 05:00 06/14/24 05:00 Oxygen Delivery Method Room Air Weight: 134 kg Body Mass Index (BMI) 38.9 Intake & Output: Intake and Output for Last 24 Hours 06/12/24 06/13/24 06/14/24 23:59 23:59 23:59 Intake Total 2535 / 2535 1775.00 / 2575.00 1125 / 1125 Output Total 2325 / 2775 1250 / 1650 1000 / 1000 Balance 210 / -240 525.00 / 925.00 125 / 125 Lab / Micro Data 06/13/24 05:10 06/13/24 05:10 Labs: Laboratory Results - last 24 hr 06/13/24 11:33: POC Glucose 291 H 06/13/24 15:49: POC Glucose 281 H Micro: Microbiology 06/10/24 07:20 Wound - Left Foot Gram Stain - Final 06/10/24 07:20 Wound - Left Foot Wound Culture - Preliminary Staphylococcus aureus GPC Poss Enterococcus sp 06/10/24 07:20 Wound - Left Foot Anaerobic Culture - Preliminary Checking for anaerobes, further studies to follow. 06/10/24 15:07 Bone - 5th Toe Gram Stain - Final 06/10/24 15:07 Bone - 5th Toe Wound Culture - Preliminary Staphylococcus aureus Enterococcus faecalis Coag Negative Staph 06/10/24 15:07 Bone - 5th Toe Anaerobic Culture - Preliminary 06/10/24 15:10 Bone - 5th Toe Gram Stain - Final 06/10/24 15:10 Bone - 5th Toe Wound Culture - Preliminary Staphylococcus epidermidis Coag Negative Staph 06/10/24 15:10 Bone - 5th Toe Anaerobic Culture - Preliminary 06/10/24 07:36 Blood Culture (Wb) - Anticubital Right Blood Culture - Preliminary No growth in 48 hours. 06/10/24 07:36 Blood Culture (Wb) - Anticubital Left Blood Culture - Preliminary No growth in 48 hours. Physical Exam Const alert and no apparent distress Constitutional Narrative: up in bed. had dressing changed by Dr. Ruiz. HEENT head/scalp atraumatic GI normal to inspection, nondistended, normoactive bowel sounds Assessment & Plan Assessment/Plan (1) Atherosclerosis of [place] arteries of extremities with gangrene, left leg: (2) Gangrene, not elsewhere classified: PLAN: Plan Gangrene left foot * secondary to peripheral vascular disease from type 2 diabetes poorly controlled * abx with pip/tazo and vancomycin * Vascular tentatively planning on angiogram next week. * podiatry, Vascular and ID consult. * bone culture showed Staph epi and QUESTIONED DOCUMENTS EXAMINER and GPC (possible enterococcus sp) Chronic conditions: * DM2: resume NPH. SSI. a1c 7.5 * PAD: complicates care and recovery. on ASA, clopidogrel and statin * HLD: statin * hypothyroidism: levothyroxine. * Obesity class II: complicates care and recovery. VTE prophylaxis: SQ heparin. Disposition: eventually to a SNF. Charges/Coding Visit Charges Inpatient E&M: 25514 Subs Hosp L2
[2024-06-14] MEDS: Insulin Lispro 100 UNIT/ML INSULN.PEN SC ×4 (08:50→21:23)
[2024-06-14] MEDS: Insulin NPH Human 100 UNITS/ML PEN 40 UNITS SC ×2 (08:51→17:42)
[2024-06-14 08:54] VITALS: BP 159/78; PULSE 76; RESP 18; TEMP 36.6; O2SAT 94
[2024-06-14] MEDS: Lisinopril 10 MG Tablet PO (08:55)
[2024-06-14] MEDS: Clopidogrel Bisulfate 75 MG Tablet PO (08:55)
[2024-06-14] MEDS: Ascorbic Acid 500 MG Tablet PO (08:55)
[2024-06-14] MEDS: Aspirin 81 MG TAB.CHEW PO (08:55)
[2024-06-14] MEDS: Heparin Injection (Vial) 5,000 UNIT/ML VIAL 5000 UNIT SC ×2 (08:55→21:22)
[2024-06-14 08:58] LABS: Bedside Glucose 238 mg/dL (74-106)
[2024-06-14 09:13] LABS: Bedside Glucose 210 mg/dL (74-106)
--- NOTE | 2024-06-14 09:42 | PN_ITS ---
Subjective Subjective Patient was seen this morning for follow up on left foot. He relates he is doing well, no complaints. No f/c/n/v. Objective Data Objective Data Vital Signs: Vital Signs Temp Pulse Resp BP Pulse Ox O2 Del Method 97.9 F 76 18 159/78 H 94 Room Air 06/14/24 08:54 06/14/24 08:54 06/14/24 08:54 06/14/24 08:54 06/14/24 08:54 06/14/24 08:54 Oxygen Delivery Method Room Air Weight: 134 kg Body Mass Index (BMI) 38.9 Intake & Output: Intake and Output for Last 24 Hours 06/12/24 06/13/24 06/14/24 23:59 23:59 23:59 Intake Total 2535 / 2535 1775.00 / 2575.00 1125 / 1125 Output Total 2325 / 2775 1250 / 1650 1000 / 1000 Balance 210 / -240 525.00 / 925.00 125 / 125 Lab / Micro Data 06/13/24 05:10 06/13/24 05:10 Labs: Laboratory Results - last 24 hr 06/13/24 11:33: POC Glucose 291 H 06/13/24 15:49: POC Glucose 281 H 06/13/24 21:35: POC Glucose 238 H 06/14/24 08:49: POC Glucose 210 H Micro: Microbiology 06/10/24 15:07 Bone - 5th Toe Gram Stain - Final 06/10/24 15:07 Bone - 5th Toe Wound Culture - Preliminary Staphylococcus aureus Enterococcus faecalis Coag Negative Staph 06/10/24 07:20 Wound - Left Foot Gram Stain - Final 06/10/24 07:20 Wound - Left Foot Wound Culture - Final Staphylococcus aureus Enterococcus faecalis 06/10/24 07:20 Wound - Left Foot Anaerobic Culture - Preliminary Checking for anaerobes, further studies to follow. 06/10/24 15:10 Bone - 5th Toe Gram Stain - Final 06/10/24 15:10 Bone - 5th Toe Wound Culture - Final Staphylococcus epidermidis Staphylococcus lugdunensis 06/10/24 07:36 Blood Culture (Wb) - Anticubital Right Blood Culture - Preliminary No growth in 48 hours. 06/10/24 07:36 Blood Culture (Wb) - Anticubital Left Blood Culture - Preliminary No growth in 48 hours. Physical Exam Narrative wound lateral left foot with viable tissue base and margins down to fascia/muscle and bone, no maloder, no fluctuance, no crepitus, no streaking, no purulence, no undermining, trace erythema around skin edges, otherwise no cellulitis, no visible abscess, no evidence of acute ischemia, edema improved. Const alert, oriented x3 and no apparent distress Constitutional Narrative: Reviewed wound photos left foot which appear appropriate at this time. Assessment & Plan Assessment/Plan (1) Diabetic ulcer of left foot: (2) Acute osteomyelitis of left foot: (3) Type 2 diabetes mellitus with foot ulcer: (4) Other specified peripheral vascular diseases: (5) Type 2 diabetes mellitus with diabetic polyneuropathy: QUALIFIERS: Diabetes mellitus alf insulin use: with alf use Qualified Code(s): E11.42 - Type 2 diabetes mellitus with diabetic polyneuropathy; Z79.4 - [facility] (current) use of insulin (6) Gangrene, not elsewhere classified: PLAN: Plan Evaluation performed. Reviewed diagnostic data. s/p left foot debridement on 06/10/2024 - clinically foot stabilized from infection standpoint. Reviewed available culture results. Clearance fragment left 5th metatarsal and noted staph lugdunensis and staph epi, he remains on IV antibiotics Chaya/Dr. Kashif Wright on consult. Noninvasive lower extremity arterial studies was ordered and reviewed - Vascular surgery service consulted and following, planning angiogram on Sunday. No weightbearing left foot. Wound care left foot - BID normal saline solution wet to dry gauze dressing with overlying kerlix and sascha dressing changes. Podiatry will continue to follow.
--- NOTE | 2024-06-14 10:23 | CASEMGMT ---
Social Work- SW met with pt to follow up on preferences at discharge. Pt reports that she did speak with his granddaughter briefly; she will come in to meet with him tomorrow and follow up with SW Sunday. SW will remain available to follow. GALINA Tabor
[2024-06-14 12:21] LABS: Bedside Glucose 228 mg/dL (74-106)
[2024-06-14 14:28] VITALS: BP 144/77; PULSE 89; RESP 16; TEMP 36.8; O2SAT 96
[2024-06-14 18:03] LABS: Bedside Glucose 237 mg/dL (74-106)
[2024-06-14 19:37] VITALS: BP 177/74; PULSE 82; RESP 17; TEMP 36.7; O2SAT 94
[2024-06-14 20:49] LABS: Vancomycin, Trough Level 17.4 ug/mL (5.0-15.0)
[2024-06-14] MEDS: Atorvastatin Calcium 20 MG Tablet PO (21:22)
[2024-06-14 22:05] LABS: Bedside Glucose 313 mg/dL (74-106)
--- NOTE | 2024-06-15 02:26 | PCM.RX.CS ---
Consult Antibiotic Management Pharmacy has been consulted to manage selected antibiotic: Vancomycin Type of Intervention Type of Consult: Follow-up Labs Labs: Sodium 137 mmol/L (136-145) 06/13/24 05:10 Potassium 4.2 mmol/L (3.5-5.1) 06/13/24 05:10 Chloride 105 mmol/L (98-107) 06/13/24 05:10 Carbon Dioxide 26.0 mmol/L (21.0-32.0) 06/13/24 05:10 Anion Gap 6 (5-15) 06/13/24 05:10 BUN 10 mg/dL (7-18) 06/13/24 05:10 Creatinine 0.57 mg/dL (0.70-1.30) L 06/13/24 05:10 Est GFR (MDRD) Af Amer 179 mL/min (>60) 06/13/24 05:10 Est GFR (MDRD) Non-Af 148 mL/min (>60) 06/13/24 05:10 BUN/Creatinine Ratio 17.5 RATIO (10-20) 06/13/24 05:10 Glucose 250 mg/dL (74-106) H 06/13/24 05:10 Vancomycin Trough 17.4 ug/mL (5.0-15.0) H 06/14/24 20:04 Microbiology Microbiology: Microbiology 06/10/24 07:20 Wound - Left Foot Gram Stain - Final 06/10/24 07:20 Wound - Left Foot Wound Culture - Final Staphylococcus aureus Enterococcus faecalis 06/10/24 07:20 Wound - Left Foot Anaerobic Culture - Preliminary Anaerobic cocci Gram positive mary Gram variable mary 06/10/24 15:07 Bone - 5th Toe Gram Stain - Final 06/10/24 15:07 Bone - 5th Toe Wound Culture - Preliminary Staphylococcus aureus Enterococcus faecalis Coag Negative Staph 06/10/24 15:10 Bone - 5th Toe Gram Stain - Final 06/10/24 15:10 Bone - 5th Toe Wound Culture - Final Staphylococcus epidermidis Staphylococcus lugdunensis 06/10/24 07:36 Blood Culture (Wb) - Anticubital Right Blood Culture - Preliminary No growth in 48 hours. 06/10/24 07:36 Blood Culture (Wb) - Anticubital Left Blood Culture - Preliminary No growth in 48 hours. Goal Trough Goal Trough: 15-20 mcg/mL Pharmacy Plan for Drug Dosing Pharmacy Plan for Drug Dosing: Pharmacy Service will continue to monitor and adjust dosing as required. TROUGH 17.4 @ 7.5 HOURS. NO CHANGES, FOLLOW UP TROUGH IN 4 DAYS Follow-Up Labs Follow-Up Labs: Trough: Vancomycin Date/Time Labs Ordered Labs to be done on [date and time ordered]: 06/18 @ 1999
[2024-06-15 03:30] VITALS: BP 154/85; PULSE 79; RESP 15; TEMP 36.6; O2SAT 94
[2024-06-15] MEDS: oxyCODONE 5 MG Tablet PO ×3 (03:55→22:07)
[2024-06-15] MEDS: Acetaminophen 325 MG Tablet 650 MG PO ×3 (03:55→22:06)
[2024-06-15] MEDS: Vancomycin HCl 1,250 MG in 0.9% Normal Saline (250mL Bag) 250 ML 167 MG IV ×3 (03:56→20:11)
[2024-06-15] MEDS: Insulin Lispro 100 UNIT/ML INSULN.PEN SC ×4 (06:12→20:29)
[2024-06-15] MEDS: Piperacil/Tazobactam 3.375 GM in 0.9% Normal Saline (50mL MB+) 50 ML IV ×3 (06:12→21:58)
[2024-06-15] MEDS: Levothyroxine 125 MCG Tablet PO (06:12)
[2024-06-15 06:43] LABS: Bedside Glucose 226 mg/dL (74-106)
--- NOTE | 2024-06-15 08:05 | PN.HOSP_ITS ---
Reason for Visit Reason for Visit: Diagnoses Type 2 diabetes mellitus with diabetic polyneuropathy (06/10/24) Type 2 diabetes mellitus with foot ulcer (06/10/24) Atherosclerosis of [place] arteries of extremities with gangrene, left leg (06/10/24) Other specified peripheral vascular diseases (06/10/24) Gangrene, not elsewhere classified (06/10/24) Non-pressure chronic ulcer of other part of unspecified foot with unspecified severity (06/10/24) Non-pressure chronic ulcer of other part of left foot with unspecified severity (06/10/24) Other acute osteomyelitis, left ankle and foot (06/10/24) 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 No events over night. Objective Data Objective Data Vital Signs: Vital Signs Temp Pulse Resp BP Pulse Ox O2 Del Method 36.6 C 79 15 154/85 H 94 Room Air 06/15/24 03:30 06/15/24 03:30 06/15/24 03:30 06/15/24 03:30 06/15/24 03:30 06/15/24 03:30 Oxygen Delivery Method Room Air Weight: 134 kg Body Mass Index (BMI) 38.9 Intake & Output: Intake and Output for Last 24 Hours 06/13/24 06/14/24 06/15/24 23:59 23:59 23:59 Intake Total 1775.00 / 2575.00 1895 / 1895 805 / 805 Output Total 1250 / 1650 2230 / 2230 875 / 875 Balance 525.00 / 925.00 -335 / -335 -70 / -70 Lab / Micro Data 06/13/24 05:10 06/13/24 05:10 Labs: Laboratory Results - last 24 hr 06/13/24 21:35: POC Glucose 238 H 06/14/24 08:49: POC Glucose 210 H 06/14/24 11:42: POC Glucose 228 H 06/14/24 17:41: POC Glucose 237 H 06/14/24 20:04: Vancomycin Trough 17.4 H 06/14/24 21:22: POC Glucose 313 H 06/15/24 06:09: POC Glucose 226 H Micro: Microbiology 06/10/24 07:20 Wound - Left Foot Gram Stain - Final 06/10/24 07:20 Wound - Left Foot Wound Culture - Final Staphylococcus aureus Enterococcus faecalis 06/10/24 07:20 Wound - Left Foot Anaerobic Culture - Final Anaerobic cocci Prevotella melaninogenica 06/10/24 15:07 Bone - 5th Toe Gram Stain - Final 06/10/24 15:07 Bone - 5th Toe Wound Culture - Preliminary Staphylococcus aureus Enterococcus faecalis Coag Negative Staph 06/10/24 15:10 Bone - 5th Toe Gram Stain - Final 06/10/24 15:10 Bone - 5th Toe Wound Culture - Final Staphylococcus epidermidis Staphylococcus lugdunensis 06/10/24 07:36 Blood Culture (Wb) - Anticubital Right Blood Culture - Preliminary No growth in 48 hours. 06/10/24 07:36 Blood Culture (Wb) - Anticubital Left Blood Culture - Preliminary No growth in 48 hours. Physical Exam Const alert and no apparent distress HEENT head/scalp atraumatic and moist oral mucous membranes Resp normal respiratory effort, no retractions, no use of accessory muscles and clear to auscultation bilaterally Cardio regular rate, regular rhythm, S1 normal heart sound and S2 normal heart sound GI normal to inspection, nondistended, normoactive bowel sounds, soft to palpation, non-tender and non-distended Assessment & Plan Assessment/Plan (1) Atherosclerosis of [place] arteries of extremities with gangrene, left leg: (2) Gangrene, not elsewhere classified: PLAN: Plan Gangrene left foot * secondary to peripheral vascular disease from type 2 diabetes poorly controlled * abx with pip/tazo and vancomycin * Vascular tentatively planning on angiogram next week. * podiatry, Vascular and ID consult. * Surgical Wound culture: 06/13: S. epidermidis and S. lugdunensis. Bone culture 06/10: MSSA, E. faecalis, MOLD FORMS BUILDER. Chronic conditions: * DM2: resume NPH. SSI. a1c 7.5 * PAD: complicates care and recovery. on ASA, clopidogrel and statin * HLD: statin * hypothyroidism: levothyroxine. * Obesity class II: complicates care and recovery. VTE prophylaxis: SQ heparin. Disposition: eventually to a SNF. Charges/Coding Visit Charges Inpatient E&M: 28244 Subs Hosp L2
[2024-06-15] MEDS: Heparin Injection (Vial) 5,000 UNIT/ML VIAL 5000 UNIT SC ×2 (09:05→20:24)
[2024-06-15] MEDS: Ascorbic Acid 500 MG Tablet PO (09:05)
[2024-06-15] MEDS: Aspirin 81 MG TAB.CHEW PO (09:05)
[2024-06-15] MEDS: Clopidogrel Bisulfate 75 MG Tablet PO (09:05)
[2024-06-15] MEDS: Lisinopril 10 MG Tablet PO (09:05)
[2024-06-15] MEDS: Insulin NPH Human 100 UNITS/ML PEN 40 UNITS SC ×2 (09:06→16:50)
[2024-06-15 09:18] VITALS: BP 159/78; PULSE 75; RESP 16; TEMP 36.6; O2SAT 96
[2024-06-15 12:03] LABS: Bedside Glucose 275 mg/dL (74-106)
[2024-06-15 14:10] VITALS: BP 137/73; PULSE 74; RESP 16; TEMP 36.8; O2SAT 95
[2024-06-15 17:11] LABS: Bedside Glucose 256 mg/dL (74-106)
[2024-06-15 20:00] VITALS: BP 156/73; PULSE 78; RESP 16; TEMP 36.1; O2SAT 93
[2024-06-15] MEDS: Atorvastatin Calcium 20 MG Tablet PO (20:25)
[2024-06-15 20:54] LABS: Bedside Glucose 248 mg/dL (74-106)
[2024-06-15 22:00] VITALS: PULSE 78; RESP 16; O2SAT 93
[2024-06-16 03:00] VITALS: BP 152/70; PULSE 77; RESP 16; TEMP 36.2; O2SAT 94
[2024-06-16] MEDS: Vancomycin HCl 1,250 MG in 0.9% Normal Saline (250mL Bag) 250 ML 167 MG IV ×2 (04:00→12:17)
[2024-06-16] MEDS: Piperacil/Tazobactam 3.375 GM in 0.9% Normal Saline (50mL MB+) 50 ML IV ×2 (06:00→14:17)
[2024-06-16] MEDS: Levothyroxine 125 MCG Tablet PO (06:03)
[2024-06-16 06:24] LABS: Anion Gap 7 (5-15); BUN 12 mg/dL (7-18); BUN/Creat Ratio 16.5 RATIO (10-20); Calcium,Total 9.3 mg/dL (8.5-10.1); Chloride 104 mmol/L (98-107); Creatinine, Serum 0.73 mg/dL (0.70-1.30); EST Glomerular Filtration Rate 112 mL/min (>60); Est Glom Filt Rate - Afr Amer 136 mL/min (>60); Estimated Creatinine Clearance 116.35 ml/min; Glucose 209 mg/dL (74-106); Sodium Level 137 mmol/L (136-145)
[2024-06-16] MEDS: Lisinopril 10 MG Tablet PO (07:53)
[2024-06-16] MEDS: Heparin Injection (Vial) 5,000 UNIT/ML VIAL 5000 UNIT SC ×2 (07:53→20:38)
[2024-06-16] MEDS: Aspirin 81 MG TAB.CHEW PO (07:53)
[2024-06-16] MEDS: Insulin Lispro 100 UNIT/ML INSULN.PEN SC ×4 (07:53→20:39)
[2024-06-16] MEDS: Ascorbic Acid 500 MG Tablet PO (07:53)
[2024-06-16] MEDS: Clopidogrel Bisulfate 75 MG Tablet PO (07:53)
[2024-06-16] MEDS: Insulin NPH Human 100 UNITS/ML PEN 40 UNITS SC ×2 (07:54→16:43)
[2024-06-16 08:01] VITALS: BP 152/72; PULSE 78; RESP 18; TEMP 36.6; O2SAT 94
[2024-06-16 08:20] LABS: Bedside Glucose 198 mg/dL (74-106)
--- NOTE | 2024-06-16 11:40 | CASEMGMT ---
SW checked in with patient about SNF choice. Patient stated he is still waiting to talk with his granddaughter who works at [facility]. SW tried to call patient's granddaughter and there was no answer. SW was then told patient is telling the wound nurse and others he is going to [facility]. KRISTAL asked Shannon to send a referral to [facility] as patient has had a list since beginning to middle of last week. He tells SW he has to talk with his granddaughter then he tells the rest of the staff he is going to [facility]. Taylor Vyas SALES AGENT [employer]
--- NOTE | 2024-06-16 11:52 | CASEMGMT ---
Discharge Planning Referral sent via [facility] to [facility]. Shannon Bentley DC Planning Asst.
[2024-06-16] MEDS: Acetaminophen 325 MG Tablet 650 MG PO ×2 (12:24→23:58)
[2024-06-16 12:39] LABS: Bedside Glucose 252 mg/dL (74-106)
--- NOTE | 2024-06-16 13:55 | WOUNDNOTE ---
wound photo: left foot
[2024-06-16 14:00] VITALS: BP 159/80; PULSE 83; RESP 18; TEMP 36.4; O2SAT 94
--- NOTE | 2024-06-16 14:48 | PCM.PN.ID ---
Physical Exam Narrative Feeling ok, pain controlled, no fever, no n/v/d. Const alert and no apparent distress General Appearance: cooperative Resp normal air movement and clear to auscultation bilaterally Cardio regular rate and regular rhythm GI soft to palpation, non-tender and non-distended Skin no rashes or lesions noted ID ID: Route of nutrition/ use of supplements: [] Nutritional Intake: [] IV Site: [] Butler Catheter: [] Assessment & Plan Assessment/Plan (1) Gangrene, not elsewhere classified: (2) Type 2 diabetes mellitus with foot ulcer: (3) Acute osteomyelitis of left foot: PLAN: Bcx ngtd and wound cx with MS-CoNS x2. Will narrow to unasyn. OR 06/10/[address] Ruiz for I&D. Will follow
--- NOTE | 2024-06-16 15:50 | PCM.PN.HOSP ---
Reason for Visit Reason for Visit: Diagnoses Type 2 diabetes mellitus with diabetic polyneuropathy (06/10/24) Type 2 diabetes mellitus with foot ulcer (06/10/24) Atherosclerosis of [place] arteries of extremities with gangrene, left leg (06/10/24) Other specified peripheral vascular diseases (06/10/24) Gangrene, not elsewhere classified (06/10/24) Non-pressure chronic ulcer of other part of unspecified foot with unspecified severity (06/10/24) Non-pressure chronic ulcer of other part of left foot with unspecified severity (06/10/24) Other acute osteomyelitis, left ankle and foot (06/10/24) 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 Patient is to have an angiogram performed tomorrow. Objective Data Objective Data Vital Signs: Vital Signs Temp Pulse Resp BP Pulse Ox O2 Del Method 97.6 F L 83 18 159/80 H 94 Room Air 06/16/24 14:00 06/16/24 14:00 06/16/24 14:00 06/16/24 14:00 06/16/24 14:00 06/16/24 14:00 Oxygen Delivery Method Room Air Weight: 134 kg Body Mass Index (BMI) 38.9 Intake & Output: Intake and Output for Last 24 Hours 06/14/24 06/15/24 06/16/24 23:59 23:59 23:59 Intake Total 1895 / 1895 1455 / 1695 902.29 / 902.29 Output Total 2230 / 2230 1925 / 2475 1750 / 1750 Balance -335 / -335 -470 / -780 -847.71 / -847.71 Lab / Micro Data 06/13/24 05:10 06/16/24 05:33 Labs: Laboratory Results - last 24 hr 06/15/24 16:50: POC Glucose 256 H 06/15/24 20:28: POC Glucose 248 H 06/16/24 05:33: Sodium 137, Potassium 4.0, Chloride 104, Carbon Dioxide 26.0, Anion Gap 7, BUN 12, Creatinine 0.73, Estim Creat Clear Calc 116.35, Est GFR (MDRD) Af Amer 136, Est GFR (MDRD) Non-Af 112, BUN/Creatinine Ratio 16.5, Glucose 209 H, Calcium 9.3 06/16/24 07:38: POC Glucose 198 H 06/16/24 12:19: POC Glucose 252 H Micro: Microbiology 06/10/24 15:10 Bone - 5th Toe Gram Stain - Final 06/10/24 15:10 Bone - 5th Toe Wound Culture - Final Staphylococcus epidermidis Staphylococcus lugdunensis 06/10/24 15:10 Bone - 5th Toe Anaerobic Culture - Final Prevotella melaninogenica Anaerobic cocci 06/10/24 15:07 Bone - 5th Toe Gram Stain - Final 06/10/24 15:07 Bone - 5th Toe Wound Culture - Final Staphylococcus aureus Enterococcus faecalis Staphylococcus epidermidis Alpha hemolytic organism 06/10/24 15:07 Bone - 5th Toe Anaerobic Culture - Final Prevotella melaninogenica Clostridium group Anaerobic cocci 06/10/24 07:36 Blood Culture (Wb) - Anticubital Right Blood Culture - Final No growth in 5 days. 06/10/24 07:36 Blood Culture (Wb) - Anticubital Left Blood Culture - Final No growth in 5 days. 06/10/24 07:20 Wound - Left Foot Gram Stain - Final 06/10/24 07:20 Wound - Left Foot Wound Culture - Final Staphylococcus aureus Enterococcus faecalis 06/10/24 07:20 Wound - Left Foot Anaerobic Culture - Final Anaerobic cocci Prevotella melaninogenica Physical Exam Narrative alert, oriented x3 and no apparent distress Constitutional Narrative: Class III obesity General Appearance: cooperative, well kempt and well developed Orientation / Consciousness: awake, oriented to person, oriented to place and oriented to time HEENT normocephalic, head/scalp atraumatic, hearing grossly normal bilaterally and moist oral mucous membranes Eyes PERRL, EOMs intact bilaterally and conjunctivae normal Neck supple, no JVD, thyroid normal and no carotid bruits General: trachea midline Resp normal respiratory effort, no retractions, no use of accessory muscles and clear to auscultation bilaterally Auscultation: Negative for rales, rhonchi or wheezes Cardio regular rate, regular rhythm, S1 normal heart sound, S2 normal heart sound, no murmurs, no rub and no gallops GI normal to inspection, nondistended, normoactive bowel sounds, soft to palpation, non-tender and non-distended Extremity Extremity Narrative: Patient's left lower leg and left foot is bandaged with surgical dressing, this was not removed today for examination Skin Skin Narrative: Patient has surgical dressing present over his left lower leg and left foot area, this was not removed for examination Neuro oriented x3, CN's II-XII intact bilaterally and no focal motor deficits Neuro Narrative: Decreased sensation to light touch and pain over the feet bilaterally Sensorium / Orientation: awake and alert Speech: speech normal Psych affect normal Assessment & Plan Assessment/Plan (1) Gangrene, not elsewhere classified: (2) Atherosclerosis of [place] arteries of extremities with gangrene, left leg: PLAN: Plan 1. Gangrene left foot-secondary to peripheral vascular disease from type 2 diabetes poorly controlled-patient remains on IV antibiotics at this time per infectious diseases, patient will undergo an arteriogram tomorrow on his left leg to see if vascular flow can be improved to the left foot. #2 type 2 knztobsn-[id number] will have fingerstick blood sugars monitored and sliding scale insulin will be used as indicated #3 peripheral vascular disease-again according to podiatry, patient has significant peripheral vascular disease and will see vascular surgery during his hospital stay. #4 hyperlipidemia-patient is on a statin #5 hypothyroidism-patient is on Synthroid #6 essential hypertension-patient will remain on his outpatient medications and they will be adjusted as needed #7 class III obesity-complicates care, management, recovery, and prognosis Total clinical time spent by myself addressing patient's medical issues, reviewing all of his data, and collaborating with patient's care team: 35-minute Charges/Coding Visit Charges Inpatient E&M: 11855 Subs Hosp L2
--- NOTE | 2024-06-16 17:08 | PN_ITS ---
Subjective Subjective Patient was seen today for follow up on left foot. He has no new complaints, no f/c/n/v. He is going for angiogram tomorrow. Objective Data Objective Data Vital Signs: Vital Signs Temp Pulse Resp BP Pulse Ox O2 Del Method 97.6 F L 83 18 159/80 H 94 Room Air 06/16/24 14:00 06/16/24 14:00 06/16/24 14:00 06/16/24 14:00 06/16/24 14:00 06/16/24 14:00 Oxygen Delivery Method Room Air Weight: 134 kg Body Mass Index (BMI) 38.9 Intake & Output: Intake and Output for Last 24 Hours 06/14/24 06/15/24 06/16/24 23:59 23:59 23:59 Intake Total 1895 / 1895 1455 / 1695 902.29 / 902.29 Output Total 2230 / 2230 1925 / 2475 1750 / 1750 Balance -335 / -335 -470 / -780 -847.71 / -847.71 Lab / Micro Data 06/13/24 05:10 06/16/24 05:33 Labs: Laboratory Results - last 24 hr 06/15/24 16:50: POC Glucose 256 H 06/15/24 20:28: POC Glucose 248 H 06/16/24 05:33: Sodium 137, Potassium 4.0, Chloride 104, Carbon Dioxide 26.0, Anion Gap 7, BUN 12, Creatinine 0.73, Estim Creat Clear Calc 116.35, Est GFR (MDRD) Af Amer 136, Est GFR (MDRD) Non-Af 112, BUN/Creatinine Ratio 16.5, G lucose 209 H, Calcium 9.3 06/16/24 07:38: POC Glucose 198 H 06/16/24 12:19: POC Glucose 252 H Micro: Microbiology 06/10/24 15:10 Bone - 5th Toe Gram Stain - Final 06/10/24 15:10 Bone - 5th Toe Wound Culture - Final Staphylococcus epidermidis Staphylococcus lugdunensis 06/10/24 15:10 Bone - 5th Toe Anaerobic Culture - Final Prevotella melaninogenica Anaerobic cocci 06/10/24 15:07 Bone - 5th Toe Gram Stain - Final 06/10/24 15:07 Bone - 5th Toe Wound Culture - Final Staphylococcus aureus Enterococcus faecalis Staphylococcus epidermidis Alpha hemolytic organism 06/10/24 15:07 Bone - 5th Toe Anaerobic Culture - Final Prevotella melaninogenica Clostridium group Anaerobic cocci 06/10/24 07:36 Blood Culture (Wb) - Anticubital Right Blood Culture - Final No growth in 5 days. 06/10/24 07:36 Blood Culture (Wb) - Anticubital Left Blood Culture - Final No growth in 5 days. 06/10/24 07:20 Wound - Left Foot Gram Stain - Final 06/10/24 07:20 Wound - Left Foot Wound Culture - Final Staphylococcus aureus Enterococcus faecalis 06/10/24 07:20 Wound - Left Foot Anaerobic Culture - Final Anaerobic cocci Prevotella melaninogenica Physical Exam Const alert, oriented x3 and no apparent distress Constitutional Narrative: Reviewed wound photos left foot there is some eschar to some of the wound, there is granular tissue to majority of wound, minimal erythema. 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 Reviewed diagnostic data. s/p left foot debridement on 06/10/2024 - clinically foot stabilized from infection standpoint. Reviewed available culture results. Clearance fragment left 5th metatarsal and noted staph lugdunensis and staph epi, he remains on IV antibiotics, Dr. Rowland on consult. Noninvasive lower extremity arterial studies was ordered and reviewed - Vascular surgery service consulted and following, planning angiogram tomorrow. No weightbearing left foot. Wound care left foot - BID normal saline solution wet to dry gauze dressing with overlying kerlix and sascha dressing changes. Wound vac application possibly Sunday or Sunday after he receives angiogram. Podiatry will continue to follow.
[2024-06-16 17:27] LABS: Bedside Glucose 248 mg/dL (74-106)
--- NOTE | 2024-06-16 18:22 | PN.SURG_ITS ---
Subjective Subjective Doing well, no new foot pain/F/C/drainage. Objective Data Objective Data A&O x3, NAD RRR Resp non labored CTA images reviewed, left SFA occlusion with popliteal reconstitution Vital Signs: Vital Signs Temp Pulse Resp BP Pulse Ox O2 Del Method 97.6 F L 83 18 159/80 H 94 Room Air 06/16/24 14:00 06/16/24 14:00 06/16/24 14:00 06/16/24 14:00 06/16/24 14:00 06/16/24 14:00 Oxygen Delivery Method Room Air Weight: 295 lb 6.711 oz Body Mass Index (BMI) 38.9 Intake & Output: Intake and Output for Last 24 Hours 06/14/24 06/15/24 06/16/24 23:59 23:59 23:59 Intake Total 1895 / 1895 1455 / 1695 1142.29 / 1142.29 Output Total 2230 / 2230 1925 / 2475 1750 / 1750 Balance -335 / -335 -470 / -780 -607.71 / -607.71 Lab / Micro Data 06/13/24 05:10 06/16/24 05:33 Labs: Laboratory Results - last 24 hr 06/15/24 20:28: POC Glucose 248 H 06/16/24 05:33: Sodium 137, Potassium 4.0, Chloride 104, Carbon Dioxide 26.0, Anion Gap 7, BUN 12, Creatinine 0.73, Estim Creat Clear Calc 116.35, Est GFR (MDRD) Af Amer 136, Est GFR (MDRD) Non-Af 112, BUN/Creatinine Ratio 16.5, G lucose 209 H, Calcium 9.3 06/16/24 07:38: POC Glucose 198 H 06/16/24 12:19: POC Glucose 252 H 06/16/24 16:42: POC Glucose 248 H Micro: Microbiology 06/10/24 15:10 Bone - 5th Toe Gram Stain - Final 06/10/24 15:10 Bone - 5th Toe Wound Culture - Final Staphylococcus epidermidis Staphylococcus lugdunensis 06/10/24 15:10 Bone - 5th Toe Anaerobic Culture - Final Prevotella melaninogenica Anaerobic cocci 06/10/24 15:07 Bone - 5th Toe Gram Stain - Final 06/10/24 15:07 Bone - 5th Toe Wound Culture - Final Staphylococcus aureus Enterococcus faecalis Staphylococcus epidermidis Alpha hemolytic organism 06/10/24 15:07 Bone - 5th Toe Anaerobic Culture - Final Prevotella melaninogenica Clostridium group Anaerobic cocci 06/10/24 07:36 Blood Culture (Wb) - Anticubital Right Blood Culture - Final No growth in 5 days. 06/10/24 07:36 Blood Culture (Wb) - Anticubital Left Blood Culture - Final No growth in 5 days. 06/10/24 07:20 Wound - Left Foot Gram Stain - Final 06/10/24 07:20 Wound - Left Foot Wound Culture - Final Staphylococcus aureus Enterococcus faecalis 06/10/24 07:20 Wound - Left Foot Anaerobic Culture - Final Anaerobic cocci Prevotella melaninogenica Assessment & Plan Assessment/Plan (1) Atherosclerosis of [place] arteries of extremities with gangrene, left leg: PLAN: -appears amenable to endovascular approach -angio with possible intervention tomorrow Charges/Coding Visit Charges Inpatient E&M: 19112 Subs Hosp L2
[2024-06-16 20:25] VITALS: BP 170/73; PULSE 77; RESP 18; TEMP 36.7; O2SAT 95
[2024-06-16] MEDS: 0.9% Saline Lock 10 ML Syringe IV (20:36)
[2024-06-16] MEDS: oxyCODONE 5 MG Tablet PO (20:36)
[2024-06-16] MEDS: Atorvastatin Calcium 20 MG Tablet PO (20:37)
[2024-06-16] MEDS: Ampicillin/Sulbactam 3 GM in 0.9% Normal Saline (100mL MB+) 100 ML IV (20:42)
[2024-06-16 23:04] LABS: Bedside Glucose 307 mg/dL (74-106)
[2024-06-16 23:52] VITALS: BP 153/68; PULSE 82; RESP 18; TEMP 36.8; O2SAT 94
[2024-06-17] VITALS (13 sets, daily range): BP systolic 148–178; BP diastolic 69–83; PULSE 69–86; RESP 15–18; TEMP 36.3–36.7; O2SAT 92–97
--- NOTE | 2024-06-17 05:55 | EKG12_ITS ---
Test Reason : AM EKG Blood Pressure : */* mmHG Vent. Rate : 76 BPM Atrial Rate : 76 BPM P-R Int : 168 ms QRS Dur : 100 ms QT Int : 408 ms P-R-T Axes : -8 11 39 degrees QTcB Int : 459 ms Normal sinus rhythm Normal ECG When compared with ECG of 10-Jun-2024 07:16, No significant change was found Confirmed by Shun Gamble ([id number]), associate editor TIERNEY DAUGHERTY ([id number]) on 06/17/2024 7:54:47 AM Referred By: Confirmed By: Shun Gamble
[2024-06-17] MEDS: Clopidogrel Bisulfate 75 MG Tablet PO (06:19)
[2024-06-17] MEDS: Levothyroxine 125 MCG Tablet PO (06:19)
[2024-06-17] MEDS: Aspirin 81 MG TAB.CHEW PO (06:19)
[2024-06-17] MEDS: Lisinopril 10 MG Tablet PO (06:20)
[2024-06-17] MEDS: Ampicillin/Sulbactam 3 GM in 0.9% Normal Saline (100mL MB+) 100 ML IV ×2 (06:24→21:38)
--- NOTE | 2024-06-17 09:21 | CASEMGMT ---
SW checked with patient to see if he plans on going to [facility] at discharge. Patient said he and his granddaughter chose some other place in [place]. Patient could not tell SW which facility. Patient said his granddaughter is coming in today and she knows which place. SW asked when his granddaughter is coming in and patient said after she drops her child off at school around 9ish. SW will check back. Taylor PETIT
--- NOTE | 2024-06-17 10:20 | CASEMGMT ---
SW was informed that patient would like to talk with SW. SW met with patient. Patient said their SNF choice is [facility]. SW asked patient if they had any second choices and he stated no. SW asked Shannon to please send a referral to [facility]. Taylor Vyas PROGRAM MANAGEMENT ANALYST DAMASO
--- NOTE | 2024-06-17 10:27 | CASEMGMT ---
Addendum entered by Shannon Bentley 06/17/24 10:45: [facility] declined d/t no bed availability. Shannon Bentley DC Planning Asst. Original Note: Discharge Planning Referral sent via [facility] to [facility]. Shannon Bentley DC Planning Asst.
--- NOTE | 2024-06-17 10:50 | CASEMGMT ---
Addendum entered by Taylor Vyas 06/17/24 11:00: Neida called KRISTAL and said the next choice would be [facility]. [facility] notified [facility]. Plan: d/c to [facility] pending patient being medically ready and pre-cert. Taylor PETIT Original Note: [facility] is full. KRISTAL called patient's granddaughter Neida and let her know [facility] is full and what are the next choices. Neida said she would call patient and then call KRISTAL back. Taylor Vyas CRYSTALLOGRAPHEREllyn PETIT
[2024-06-17 12:18] LABS: Bedside Glucose 202 mg/dL (74-106)
[2024-06-17 12:35] LABS: Bedside Glucose 198 mg/dL (74-106)
--- NOTE | 2024-06-17 16:31 | PCM.OPRPT ---
Operative Report (Standard) Operative Information Surgery/Procedure Performed: aortogram, left lower extremity runoff IVUS sfa/common femoral/external iliac atherectomy, DCB sfa Surgeon: Tyson Kunz Date of Procedure: 06/17/24 Procedure Start Time: 14:30 Procedure Stop Time: 16:30 Pre-Operative Diagnosis: atherosclerosis with gangrene left lower extremity Post-Operative Diagnosis: same Select all DRAINS/GRAFTS/IMPLANTS that apply: None Type of Anesthesia: Local and Sedation,Conscious Estimated Blood Loss: 7 Specimen collected: No Description of surgery: HPI: Patient is a 74-year-old male who presented with acute infection and gangrene of the left lower extremity. He underwent surgical debridement and noninvasive vascular studies suggested an adequate perfusion to heal the surgical site and wound infection. CT angiography revealed totally occluded superficial femoral artery with moderate calcifications. He is taken now for angiogram with possible intervention. Description of procedure: Upon obtaining form consent and verification correct patient procedure site patient taken to Customer Complaint Service Supervisor where he was positioned prepped and draped in usual sterile fashion. Timeouts performed conscious ideation administered with Versed and fentanyl. Skin overlying the right common femoral arteries anesthetized 1% lidocaine the vessel accessed ultrasound guidance with a micropuncture needle wire. This then exchanged for micropuncture sheath routine injection iliofemoral angiogram was performed revealing satisfactory position with no extravasation or dissection. Through the micropuncture sheath Bentson wire is advanced into the abdominal aorta the micropuncture sheath exchanged for short 7 Burkinan sheath. Through the 7 Burkinan sheath and Omni Flush catheter was advanced into the abdominal aorta and digital traction aortogram pelvic angiogram was performed. We then navigated the contralateral iliac system with the Omni Flush and Bentson wire advancing into the distal external iliac artery. From this position sequential subtraction angiography images of the left lower extremity were performed. This revealed total occlusion of the superficial femoral artery approximately 5 cm distal to its origin with reconstitution of initially diseased above-knee popliteal with return to normal contour and caliber in the mid to distal popliteal. This also revealed total occlusion of the anterior tibial artery proximally with reconstitution in the distal one third of the leg. The peroneal artery was a large dominant outflow vessel which was widely patent to the ankle. The posterior tibial artery was small caliber with moderate diffuse atherosclerosis but patent incontinuity into the foot. Bentson wires then readvanced and the catheter and 7 Burkinan sheath exchanged for 7 Burkinan 45 destination sheath advanced up and over the bifurcation of the distal external iliac artery on the contralateral side. Patient was in heparinized allowed circulate for 3 minutes with subsequent heparin redosing based on ACT results. Using an angled quick cross catheter and command 18 wire we engaged the total occlusion and were able to traverse the lesion while maintaining position and what appeared to be true lumen. There was significant dense calcification in the mid total occlusion which provided some difficulty but we ultimately were able to traverse in its entirety. The catheter was advanced over the wire into the mid popliteal artery and the wire withdrawn. Hand-injection subtraction angiography from position with the true lumen no extravasation or dissection. The command wire was then readvanced the catheter withdrawn. Intravascular ultrasound probe was advanced over the wire however this was not able to traverse the entirety of the total occlusion with inability to cross the distal one third of the total occlusion due to dense calcification. We did perform recorded pullback of the lesion proximal vessels in order to obtain accurate size measurement and confirm presence within true lumen at least at this segment. The intravascular Ibarra probe was then withdrawn and a 2 mm Luigi angioplasty balloon advanced over the wire and inflated to nominal for multiple inflations across the lesion. This was then withdrawn and again we attempted to cross with the intravascular shunt probe again unable to traverse the distal segment dense calcifications. We were fairly confident that we were within true lumen throughout fact the area of where we had any question during crossing with the wire was in the more proximal segment which was clearly true lumen based on the intravascular sound imaging. The intravascular ultrasound catheter was then withdrawn and the quick cross catheter readvanced after which the command wire was exchanged for the Rodrigez bare wire for embolic protection filter. The [employer] Smart[employer] Fabian 6 filter was then prepped per machine setup operator instructions and advanced over the wire and deployed in the distal popliteal artery. Next the [employer] jetstream atherectomy device prep for machine setup operator instructions. This then advanced over the wire and positioned proximal to the lesion. This was then engaged and blades down configuration for total of 3 passes across the entirety of the total occlusion more proximal most severe stenosis of the popliteal vessel. Device was then withdrawn the vessel was balloon angioplastied with a 6 mm x 240 luigi angioplasty balloon inflated to nominal. Shortly after reaching nominal punctured as we lost pressure insufflation device. Blood was returned which confirmed the balloon popped. The balloon was then withdrawn subtraction angiography actually revealed very satisfactory result with no extravasation no dissection and no significant residual stenosis. There is brisk contrast transit across the treated segment. There high-pressure balloon angioplasty was required so a [place] [employer] 6 x 200 paclitaxel coated angioplasty balloon was advanced inflated nominal for 3 minutes and deflated withdrawn. A second 6 x 60 stent scientific angioplasty balloon was advanced with adequate overlap. Completion angiography revealed effectively resolved apposition of dissection and brisk contrast transit. The filter was then recaptured and completion imaging of the tibial vessels revealed preserved runoff. The long 7 Burkinan sheath was exchanged for a short 7 Burkinan sheath. Currently the Customer Complaint Service Supervisor ran out of Mynx closure devices so the sheath was pulled and manual pressure held for 20 minutes after which satisfactory stasis was noted. The patient was then taken to the PCU for bedrest. Surgical Findings: SFA occlusion with reconstitution of moderately diseased above-knee popliteal artery. Anterior tibial occlusion approximately reconstitution of the distal one third of the leg. Peroneal artery large dominant vessel runoff to the ankle. Posterior tibial artery patent smaller caliber with moderate diffuse atherosclerosis patent into the foot. Outflow preserved after intervention, satisfactory radiographic result of the SFA treatment zone. Remarketing Rep social worker clinical: No Complications Complications: No
--- NOTE | 2024-06-17 16:40 | PN.HOSP_ITS ---
Reason for Visit Reason for Visit: Diagnoses Type 2 diabetes mellitus with diabetic polyneuropathy (06/10/24) Type 2 diabetes mellitus with foot ulcer (06/10/24) Atherosclerosis of [place] arteries of extremities with gangrene, left leg (06/10/24) Other specified peripheral vascular diseases (06/10/24) Gangrene, not elsewhere classified (06/10/24) Non-pressure chronic ulcer of other part of unspecified foot with unspecified severity (06/10/24) Non-pressure chronic ulcer of other part of left foot with unspecified severity (06/10/24) Other acute osteomyelitis, left ankle and foot (06/10/24) 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 Patient underwent an angiogram today-results at this time are pending. Objective Data Objective Data Vital Signs: Vital Signs Temp Pulse Resp BP Pulse Ox O2 Del Method 98.0 F 78 18 160/83 H 96 Room Air 06/17/24 11:43 06/17/24 11:43 06/17/24 11:43 06/17/24 11:43 06/17/24 11:43 06/17/24 11:43 Oxygen Delivery Method Room Air Weight: 134 kg Body Mass Index (BMI) 38.9 Intake & Output: Intake and Output for Last 24 Hours 06/15/24 06/16/24 06/17/24 23:59 23:59 23:59 Intake Total 1455 / 1695 1374.29 / 1374.29 172 / 172 Output Total 1925 / 2475 2675 / 2675 1250 / 1250 Balance -470 / -780 -1300.71 / -1300.71 -1078 / -1078 Lab / Micro Data 06/13/24 05:10 06/16/24 05:33 Labs: Laboratory Results - last 24 hr 06/16/24 16:42: POC Glucose 248 H 06/16/24 20:34: POC Glucose 307 H 06/17/24 06:18: POC Glucose 202 H 06/17/24 12:13: POC Glucose 198 H Micro: Microbiology 06/10/24 15:10 Bone - 5th Toe Gram Stain - Final 06/10/24 15:10 Bone - 5th Toe Wound Culture - Final Staphylococcus epidermidis Staphylococcus lugdunensis 06/10/24 15:10 Bone - 5th Toe Anaerobic Culture - Final Prevotella melaninogenica Anaerobic cocci 06/10/24 15:07 Bone - 5th Toe Gram Stain - Final 06/10/24 15:07 Bone - 5th Toe Wound Culture - Final Staphylococcus aureus Enterococcus faecalis Staphylococcus epidermidis Alpha hemolytic organism 06/10/24 15:07 Bone - 5th Toe Anaerobic Culture - Final Prevotella melaninogenica Clostridium group Anaerobic cocci 06/10/24 07:36 Blood Culture (Wb) - Anticubital Right Blood Culture - Final No growth in 5 days. 06/10/24 07:36 Blood Culture (Wb) - Anticubital Left Blood Culture - Final No growth in 5 days. 06/10/24 07:20 Wound - Left Foot Gram Stain - Final 06/10/24 07:20 Wound - Left Foot Wound Culture - Final Staphylococcus aureus Enterococcus faecalis 06/10/24 07:20 Wound - Left Foot Anaerobic Culture - Final Anaerobic cocci Prevotella melaninogenica Physical Exam Narrative alert, oriented x3 and no apparent distress Constitutional Narrative: Class III obesity General Appearance: cooperative, well kempt and well developed Orientation / Consciousness: awake, oriented to person, oriented to place and oriented to time HEENT normocephalic, head/scalp atraumatic, hearing grossly normal bilaterally and moist oral mucous membranes Eyes PERRL, EOMs intact bilaterally and conjunctivae normal Neck supple, no JVD, thyroid normal and no carotid bruits General: trachea midline Resp normal respiratory effort, no retractions, no use of accessory muscles and clear to auscultation bilaterally Auscultation: Negative for rales, rhonchi or wheezes Cardio regular rate, regular rhythm, S1 normal heart sound, S2 normal heart sound, no murmurs, no rub and no gallops GI normal to inspection, nondistended, normoactive bowel sounds, soft to palpation, non-tender and non-distended Extremity Extremity Narrative: Patient's left lower leg and left foot is bandaged with surgical dressing, this was not removed today for examination Skin Skin Narrative: Patient has surgical dressing present over his left lower leg and left foot area, this was not removed for examination Neuro oriented x3, CN's II-XII intact bilaterally and no focal motor deficits Neuro Narrative: Decreased sensation to light touch and pain over the feet bilaterally Sensorium / Orientation: awake and alert Speech: speech normal Psych affect normal Assessment & Plan Assessment/Plan (1) Acute osteomyelitis of left foot: (2) Gangrene, not elsewhere classified: (3) Atherosclerosis of [place] arteries of extremities with gangrene, left leg: PLAN: Plan 1. Gangrene left foot-secondary to peripheral vascular disease from type 2 diabetes poorly controlled-patient remains on IV antibiotics at this time per infectious diseases, patient underwent an angiogram today, results are pending at the time of this dictation. #2 type 2 [id number]-[id number] will have fingerstick blood sugars monitored and sliding scale insulin will be used as indicated #3 peripheral vascular disease-again according to podiatry, patient has significant peripheral vascular disease and will see vascular surgery during his hospital stay. #4 hyperlipidemia-patient is on a statin #5 hypothyroidism-patient is on Synthroid #6 essential hypertension-patient will remain on his outpatient medications and they will be adjusted as needed #7 class III obesity-complicates care, management, recovery, and prognosis Total clinical time spent by myself addressing patient's medical issues, reviewing all of his data, and collaborating with patient's care team: 35-minute Charges/Coding Visit Charges Inpatient E&M: 36193 Subs Hosp L2
[2024-06-17 16:55] LABS: ACT Activated Clotting Time 239 sec (74-137)
[2024-06-17 16:55] LABS: ACT Activated Clotting Time 227 sec (74-137)
[2024-06-17 17:52] LABS: Bedside Glucose 194 mg/dL (74-106)
[2024-06-17] MEDS: Heparin Injection (Vial) 5,000 UNIT/ML VIAL 5000 UNIT SC (21:38)
[2024-06-17] MEDS: Atorvastatin Calcium 20 MG Tablet PO (21:38)
[2024-06-17] MEDS: 0.9% Saline Lock 10 ML Syringe IV (21:38)
[2024-06-17 22:33] LABS: Bedside Glucose 214 mg/dL (74-106)
[2024-06-18] VITALS (8 sets, daily range): BP systolic 134–171; BP diastolic 58–80; PULSE 66–88; RESP 16–18; TEMP 35.9–36.7; O2SAT 93–96
[2024-06-18 07:03] LABS: Bedside Glucose 216 mg/dL (74-106)
[2024-06-18] MEDS: Ampicillin/Sulbactam 3 GM in 0.9% Normal Saline (100mL MB+) 100 ML IV ×3 (07:25→21:43)
--- NOTE | 2024-06-18 07:33 | PCM.PROGNOTE ---
Subjective Subjective Patient was seen this morning for follow up on left foot. He is resting comfortably in bed watching tv. He has no new complaints. He had vascular intervention yesterday and went well. Objective Data Objective Data Vital Signs: Vital Signs Temp Pulse Resp BP Pulse Ox O2 Del Method 98.1 F 86 16 158/76 H 93 Room Air 06/17/24 23:00 06/17/24 23:00 06/17/24 23:00 06/17/24 23:00 06/17/24 23:00 06/17/24 23:00 Oxygen Delivery Method Room Air Weight: 134 kg Body Mass Index (BMI) 38.9 Intake & Output: Intake and Output for Last 24 Hours 06/16/24 06/17/24 06/18/24 23:59 23:59 23:59 Intake Total 1374.29 / 1374.29 284 / 284 Output Total 2675 / 2675 1250 / 1250 Balance -1300.71 / -1300.71 -966 / -966 Lab / Micro Data 06/13/24 05:10 06/16/24 05:33 Labs: Laboratory Results - last 24 hr 06/17/24 06:18: POC Glucose 202 H 06/17/24 12:13: POC Glucose 198 H 06/17/24 15:22: Activated Clotting Time 239 H 06/17/24 16:08: Activated Clotting Time 227 H 06/17/24 17:23: POC Glucose 194 H 06/17/24 21:42: POC Glucose 214 H 06/18/24 06:43: POC Glucose 216 H Micro: Microbiology 06/10/24 15:10 Bone - 5th Toe Gram Stain - Final 06/10/24 15:10 Bone - 5th Toe Wound Culture - Final Staphylococcus epidermidis Staphylococcus lugdunensis 06/10/24 15:10 Bone - 5th Toe Anaerobic Culture - Final Prevotella melaninogenica Anaerobic cocci 06/10/24 15:07 Bone - 5th Toe Gram Stain - Final 06/10/24 15:07 Bone - 5th Toe Wound Culture - Final Staphylococcus aureus Enterococcus faecalis Staphylococcus epidermidis Alpha hemolytic organism 06/10/24 15:07 Bone - 5th Toe Anaerobic Culture - Final Prevotella melaninogenica Clostridium group Anaerobic cocci 06/10/24 07:36 Blood Culture (Wb) - Anticubital Right Blood Culture - Final No growth in 5 days. 06/10/24 07:36 Blood Culture (Wb) - Anticubital Left Blood Culture - Final No growth in 5 days. 06/10/24 07:20 Wound - Left Foot Gram Stain - Final 06/10/24 07:20 Wound - Left Foot Wound Culture - Final Staphylococcus aureus Enterococcus faecalis 06/10/24 07:20 Wound - Left Foot Anaerobic Culture - Final Anaerobic cocci Prevotella melaninogenica Physical Exam Narrative wound lateral left foot with some dry eschar distally otherwise viable granular tissue base and margins down to fascia/muscle and bone, no maloder, no fluctuance, no crepitus, no streaking, no purulence, no undermining, no cellulitis, no visible abscess, no evidence of acute ischemia, edema significantly improved. Const alert, oriented x3 and no apparent distress Constitutional Narrative: Reviewed wound photos left foot there is some eschar to some of the wound, there is granular tissue to majority of wound, minimal erythema. 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 Reviewed diagnostic data. s/p left foot debridement on 06/10/2024 - clinically foot stabilized from infection standpoint. Reviewed available culture results. Clearance fragment left 5th metatarsal and noted staph lugdunensis and staph epi also anaerobic bacteria noted, he remains on IV antibiotics, Dr. Rowland on consult. Noninvasive lower extremity arterial studies was ordered and reviewed - Vascular surgery service consulted and following, and had vascular intervention yesterday. No weightbearing left foot. Wound care left foot - BID normal saline solution wet to dry gauze dressing with overlying kerlix and sascha dressing changes. Wound vac has been ordered. Podiatry will continue to follow.
[2024-06-18] MEDS: Ascorbic Acid 500 MG Tablet PO (08:17)
[2024-06-18] MEDS: Lisinopril 10 MG Tablet PO (08:17)
[2024-06-18] MEDS: Aspirin 81 MG TAB.CHEW PO (08:17)
[2024-06-18] MEDS: Clopidogrel Bisulfate 75 MG Tablet PO (08:18)
[2024-06-18] MEDS: Heparin Injection (Vial) 5,000 UNIT/ML VIAL 5000 UNIT SC ×2 (08:18→20:08)
[2024-06-18] MEDS: Insulin NPH Human 100 UNITS/ML PEN 40 UNITS SC ×2 (08:21→16:55)
--- NOTE | 2024-06-18 11:21 | CASEMGMT ---
Discharge Planning Updates sent to with request to submit for precert. Will need to send ID note when available. Shannon Bentley DC Planning Asst.
[2024-06-18] MEDS: Insulin Lispro 100 UNIT/ML INSULN.PEN SC ×3 (11:58→21:43)
--- NOTE | 2024-06-18 12:01 | WOUNDNOTE ---
wound photo: left foot
[2024-06-18] MEDS: Acetaminophen 325 MG Tablet 650 MG PO ×2 (12:02→20:05)
[2024-06-18] MEDS: oxyCODONE 5 MG Tablet PO ×2 (12:03→20:06)
[2024-06-18 12:33] LABS: Bedside Glucose 253 mg/dL (74-106)
--- NOTE | 2024-06-18 12:42 | PCM.PN.ID ---
Physical Exam Narrative Feeling better s/p angio, no pain in foot, no fever, no n/v/d. Const alert and no apparent distress General Appearance: cooperative Resp normal air movement and clear to auscultation bilaterally Cardio regular rate and regular rhythm GI soft to palpation, non-tender and non-distended Skin Skin Narrative: foot wrapped ID ID: Route of nutrition/ use of supplements: [] Nutritional Intake: [] IV Site: [] Butler Catheter: [] Assessment & Plan Assessment/Plan (1) Gangrene, not elsewhere classified: (2) Type 2 diabetes mellitus with foot ulcer: (3) Acute osteomyelitis of left foot: PLAN: Bcx ngtd and wound cx with MS-CoNS x2. On unasyn. OR 06/10/[address] Ruiz for I&D. Plan on picc and 6 weeks unasyn, stop date 07/29/24, ID followup in 2 weeks. Will follow
--- NOTE | 2024-06-18 13:32 | CASEMGMT ---
KRISTAL sent Segundo Irving the prescription for IV antibiotics via [facility]. Plan: Segundo Irving pending pre-cert Taylor Vyas MSW [employer]
[2024-06-18 17:15] LABS: Bedside Glucose 232 mg/dL (74-106)
--- NOTE | 2024-06-18 18:10 | PN.HOSP_ITS ---
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 We are currently awaiting approval for the patient to go to an extended care facility for short-term rehab services. Objective Data Objective Data Vital Signs: Vital Signs Temp Pulse Resp BP Pulse Ox O2 Del Method 96.6 F L 83 16 157/69 H 93 Room Air 06/18/24 15:00 06/18/24 15:00 06/18/24 15:00 06/18/24 15:00 06/18/24 15:00 06/18/24 15:00 Oxygen Delivery Method Room Air Weight: 134 kg Body Mass Index (BMI) 38.9 Intake & Output: Intake and Output for Last 24 Hours 06/16/24 06/17/24 06/18/24 23:59 23:59 23:59 Intake Total 1374.29 / 1374.29 284 / 284 584 / 584 Output Total 2675 / 2675 1250 / 1250 800 / 800 Balance -1300.71 / -1300.71 -966 / -966 -216 / -216 Lab / Micro Data 06/13/24 05:10 06/16/24 05:33 Labs: Laboratory Results - last 24 hr 06/17/24 21:42: POC Glucose 214 H 06/18/24 06:43: POC Glucose 216 H 06/18/24 11:55: POC Glucose 253 H 06/18/24 16:52: POC Glucose 232 H Micro: Microbiology 06/10/24 15:07 Bone - 5th Toe Gram Stain - Final 06/10/24 15:07 Bone - 5th Toe Wound Culture - Final Staphylococcus aureus Enterococcus faecalis Staphylococcus epidermidis Granulicatella adiacens 06/10/24 15:07 Bone - 5th Toe Anaerobic Culture - Final Prevotella melaninogenica Clostridium group Anaerobic cocci 06/10/24 15:10 Bone - 5th Toe Gram Stain - Final 06/10/24 15:10 Bone - 5th Toe Wound Culture - Final Staphylococcus epidermidis Staphylococcus lugdunensis 06/10/24 15:10 Bone - 5th Toe Anaerobic Culture - Final Prevotella melaninogenica Anaerobic cocci 06/10/24 07:36 Blood Culture (Wb) - Anticubital Right Blood Culture - Final No growth in 5 days. 06/10/24 07:36 Blood Culture (Wb) - Anticubital Left Blood Culture - Final No growth in 5 days. 06/10/24 07:20 Wound - Left Foot Gram Stain - Final 06/10/24 07:20 Wound - Left Foot Wound Culture - Final Staphylococcus aureus Enterococcus faecalis 06/10/24 07:20 Wound - Left Foot Anaerobic Culture - Final Anaerobic cocci Prevotella melaninogenica Physical Exam Narrative alert, oriented x3 and no apparent distress Constitutional Narrative: Class III obesity General Appearance: cooperative, well kempt and well developed Orientation / Consciousness: awake, oriented to person, oriented to place and oriented to time HEENT normocephalic, head/scalp atraumatic, hearing grossly normal bilaterally and moist oral mucous membranes Eyes PERRL, EOMs intact bilaterally and conjunctivae normal Neck supple, no JVD, thyroid normal and no carotid bruits General: trachea midline Resp normal respiratory effort, no retractions, no use of accessory muscles and clear to auscultation bilaterally Auscultation: Negative for rales, rhonchi or wheezes Cardio regular rate, regular rhythm, S1 normal heart sound, S2 normal heart sound, no murmurs, no rub and no gallops GI normal to inspection, nondistended, normoactive bowel sounds, soft to palpation, non-tender and non-distended Extremity Extremity Narrative: Patient's left lower leg and left foot is bandaged with surgical dressing, this was not removed today for examination Skin Skin Narrative: Patient has surgical dressing present over his left lower leg and left foot area, this was not removed for examination Neuro oriented x3, CN's II-XII intact bilaterally and no focal motor deficits Neuro Narrative: Decreased sensation to light touch and pain over the feet bilaterally Sensorium / Orientation: awake and alert Speech: speech normal Psych affect normal Assessment & Plan Assessment/Plan (1) Gangrene, not elsewhere classified: (2) Acute osteomyelitis of left foot: (3) Atherosclerosis of [place] arteries of extremities with gangrene, left leg: PLAN: Plan 1. Gangrene left foot-secondary to peripheral vascular disease from type 2 diabetes poorly controlled-patient remains on IV antibiotics at this time per infectious diseases, patient underwent an angiogram and intervention which improved blood flow to the left foot #2 type 2 [id number]-[id number] will have fingerstick blood sugars monitored and sliding scale insulin will be used as indicated #3 peripheral vascular disease-again according to podiatry, patient has significant peripheral vascular disease and will see vascular surgery during his hospital stay. #4 hyperlipidemia-patient is on a statin #5 hypothyroidism-patient is on Synthroid #6 essential hypertension-patient will remain on his outpatient medications and they will be adjusted as needed #7 class III obesity-complicates care, management, recovery, and prognosis Total clinical time spent by myself addressing patient's medical issues, reviewing all of his data, and collaborating with patient's care team: 35-minute Charges/Coding Visit Charges Inpatient E&M: 42915 Subs Hosp L2
--- NOTE | 2024-06-18 18:43 | PCM.PN.SRG ---
Subjective Subjective Patient was seen resting comfortably in bed this afternoon. He reports wound vac was placed on his L foot today, he is tolerating this well so far. He denies any significant pain, bleeding, or swelling at the R groin access site. Objective Data Objective Data Vital Signs: Vital Signs Temp Pulse Resp BP Pulse Ox O2 Del Method 96.6 F L 83 16 157/69 H 93 Room Air 06/18/24 15:00 06/18/24 15:00 06/18/24 15:00 06/18/24 15:00 06/18/24 15:00 06/18/24 15:00 Oxygen Delivery Method Room Air Weight: 295 lb 6.711 oz Body Mass Index (BMI) 38.9 Intake & Output: Intake and Output for Last 24 Hours 06/16/24 06/17/24 06/18/24 23:59 23:59 23:59 Intake Total 1374.29 / 1374.29 284 / 284 584 / 584 Output Total 2675 / 2675 1250 / 1250 800 / 800 Balance -1300.71 / -1300.71 -966 / -966 -216 / -216 Lab / Micro Data 06/13/24 05:10 06/16/24 05:33 Labs: Laboratory Results - last 24 hr 06/17/24 21:42: POC Glucose 214 H 06/18/24 06:43: POC Glucose 216 H 06/18/24 11:55: POC Glucose 253 H 06/18/24 16:52: POC Glucose 232 H Micro: Microbiology 06/10/24 15:07 Bone - 5th Toe Gram Stain - Final 06/10/24 15:07 Bone - 5th Toe Wound Culture - Final Staphylococcus aureus Enterococcus faecalis Staphylococcus epidermidis Granulicatella adiacens 06/10/24 15:07 Bone - 5th Toe Anaerobic Culture - Final Prevotella melaninogenica Clostridium group Anaerobic cocci 06/10/24 15:10 Bone - 5th Toe Gram Stain - Final 06/10/24 15:10 Bone - 5th Toe Wound Culture - Final Staphylococcus epidermidis Staphylococcus lugdunensis 06/10/24 15:10 Bone - 5th Toe Anaerobic Culture - Final Prevotella melaninogenica Anaerobic cocci 06/10/24 07:36 Blood Culture (Wb) - Anticubital Right Blood Culture - Final No growth in 5 days. 06/10/24 07:36 Blood Culture (Wb) - Anticubital Left Blood Culture - Final No growth in 5 days. 06/10/24 07:20 Wound - Left Foot Gram Stain - Final 06/10/24 07:20 Wound - Left Foot Wound Culture - Final Staphylococcus aureus Enterococcus faecalis 06/10/24 07:20 Wound - Left Foot Anaerobic Culture - Final Anaerobic cocci Prevotella melaninogenica Physical Exam Const alert, oriented x3 and no apparent distress General Appearance: cooperative and comfortable HEENT normocephalic, hearing grossly normal bilaterally, external ears normal and external nose normal Eyes General Eye: normal appearance of both eyes Neck General: normal visual inspection and trachea midline Resp normal respiratory effort, no retractions and no use of accessory muscles Effort and Inspection: able to speak in complete sentences; Negative for labored, grunting or stridor Cardio regular rate and regular rhythm Extremity Extremity Narrative: R groin access site with gauze dressing C/D/I, no bleed through, ecchymosis, focal edema, erythema + L PT, AT, and peroneal doppler signals, multiphasic L foot wound dressings in place Neuro oriented x3, CN's II-XII intact bilaterally and no focal motor deficits Psych mental status grossly normal, cooperative, affect normal, speech normal and activity/motor behavior normal Assessment & Plan Assessment/Plan (1) Atherosclerosis of [place] arteries of extremities with gangrene, left leg: PLAN: He is s/p LLE angiogram with L SFA atherectomy/DCB from R femoral access on 06/17/24. Vascular exam is improved today, doppler signals sound great on exam this afternoon. R groin access site without hematoma or bleeding. Continue ASA, Plavix, and statin. From vascular perspective, OK for discharge with planning as per primary team. Will plan for him to follow-up in the office as an outpatient in 2-4 weeks. Charges/Coding Visit Charges Inpatient E&M: 94526 Subs Hosp L1
[2024-06-18] MEDS: hydrALAZINE 20 MG/ML Vial 10 MG IV (20:05)
[2024-06-18] MEDS: Atorvastatin Calcium 20 MG Tablet PO (20:08)
[2024-06-18] MEDS: 0.9% Saline Lock 10 ML Syringe IV ×2 (20:11→21:44)
[2024-06-18 22:13] LABS: Bedside Glucose 257 mg/dL (74-106)
[2024-06-19] MEDS: Acetaminophen 325 MG Tablet 650 MG PO ×3 (02:41→16:42)
[2024-06-19] MEDS: oxyCODONE 5 MG Tablet PO ×4 (02:41→16:44)
[2024-06-19] MEDS: Ampicillin/Sulbactam 3 GM in 0.9% Normal Saline (100mL MB+) 100 ML IV ×2 (06:03→12:48)
[2024-06-19] MEDS: Levothyroxine 125 MCG Tablet PO (06:03)
[2024-06-19] MEDS: Insulin Lispro 100 UNIT/ML INSULN.PEN SC ×3 (06:07→16:47)
[2024-06-19 06:39] LABS: Bedside Glucose 258 mg/dL (74-106)
[2024-06-19 08:18] VITALS: BP 153/73; PULSE 79; RESP 18; TEMP 36.8; O2SAT 93
[2024-06-19] MEDS: Lisinopril 10 MG Tablet PO (08:22)
[2024-06-19] MEDS: Heparin Injection (Vial) 5,000 UNIT/ML VIAL 5000 UNIT SC (08:22)
[2024-06-19] MEDS: Clopidogrel Bisulfate 75 MG Tablet PO (08:22)
[2024-06-19] MEDS: Ascorbic Acid 500 MG Tablet PO (08:22)
[2024-06-19] MEDS: Aspirin 81 MG TAB.CHEW PO (08:22)
[2024-06-19] MEDS: Insulin NPH Human 100 UNITS/ML PEN 40 UNITS SC ×2 (08:23→16:47)
--- NOTE | 2024-06-19 09:10 | CASEMGMT ---
Discharge Planning [facility] has obtained auth. SW and physician updated. Shannon Bentley DC Planning Asst.
--- NOTE | 2024-06-19 10:15 | CASEMGMT ---
Social Work- SW met with pt to notify that precert obtained. Physician advised. GALINA Tabor
--- NOTE | 2024-06-19 10:34 | WOUNDNOTE ---
Called and talked with the wound center. pt will have appt 06/25/[address] Barnett.
[2024-06-19 12:10] LABS: Bedside Glucose 311 mg/dL (74-106)
--- NOTE | 2024-06-19 14:35 | TREXTCAR_ITS ---
Diet Diet Order/Speech Therapy: 06/13/24 14:01 Diet: Consistent Carb - Calorie Controlled Type of Dietary Supplement:: Robert Diet Comments: fruit punch robert w/ breakfast and dinner How many daily calories?: 2000 calorie Routine Orders/Code Status Routine Lab Work: - (Fingerstick blood sugars AC nightly, Humalog subcu per sliding scale: 200-250: 5 units, 251-300: 8 units, 301-350: 12 units, 351-400: 15 units) Code Status: Full Code DC O2, CPAP, BIPAP needs Additional Home O2 Discharge instructions: No Wound(s) Side of L foot: Wound Type: Surgical Incision LEFT FOOT: Wound Type: Neuropathic/Diabetic Foot Ulcer Dressing Change: KCI wound VAC right grion: Wound Type: Puncture Therapies Weight Bearing: Non weight bearing (Left foot) Extremity Affected:: Left Lower Physical Therapy: Eval and Treat Occupational Therapy: Eval and Treat Problem/Diagnosis (1) Gangrene, not elsewhere classified: Status: Acute Code(s): I96 - Gangrene, not elsewhere classified (2) Acute osteomyelitis of left foot: Status: Acute Code(s): M86.172 - Other acute osteomyelitis, left ankle and foot (3) Atherosclerosis of [place] arteries of extremities with gangrene, left leg: Status: Acute Code(s): I70.262 - Atherosclerosis of [place] arteries of extremities with gangrene, left leg Plan 1. Gangrene left foot-secondary to peripheral vascular disease from type 2 diabetes poorly controlled-patient remains on IV antibiotics at this time per infectious diseases, patient underwent an angiogram and intervention which improved blood flow to the left foot #2 type 2 eftoedto-rzwkwtdzcxge-tjidhwl will have fingerstick blood sugars monitored and sliding scale insulin will be used as indicated #3 peripheral vascular disease-again according to podiatry, patient has significant peripheral vascular disease and will see vascular surgery during his hospital stay. #4 hyperlipidemia-patient is on a statin #5 hypothyroidism-patient is on Synthroid #6 essential hypertension-patient will remain on his outpatient medications and they will be adjusted as needed #7 class III obesity-complicates care, management, recovery, and prognosis Total clinical time spent by myself addressing patient's medical issues, reviewing all of his data, and collaborating with patient's care team: 35-minute Allergies/Procedures Done in Hospital Allergies No Known Allergies Allergy (Verified 06/10/24 06:49) Procedures: - (Left lower extremity angiogram with left SFA atherectomy, debri yonatan of left foot due to gangrene) Type of Care/Length of Stay Estimated LOS: Convalescent Care Less Than 30 days Type of Care Needed: Skilled Rehab Potential: Good Prognosis: Good Additional Orders/Day of Discharge H&P will serve as current which was dated: 06/10/24 Day of Discharge: 06/19/24 Dietary and Speech Recommendations Dietitian Recommendations/Changes: Adjust to 2000 calorie controlled/consistent carbohydrate diet. Will order fruit punch Robert BID with breakfast and dinner to promote wound healing. Will monitor weight, as available. Reviewed and approved by Jayna Chandler, GIOVANI, LD. Discharge Plan Admission Admit Date/Time: 06/10/24 09:44 Primary Reason for Your Visit: Gangrene of left foot, peripheral vascular disease Attending Provider: Floyd Shah Primary Care Provider: Floyd Ricketts Consulting Providers: Kyle Rowland; Sylvain Ruiz; Tyson Kunz; Floyd Shah; Tyson Alvarez Discharge Orders/Prescriptions Prescriptions: New ampicillin-sulbactam 3 gram Recon Soln 3 g IV Q8 41 Days Qty: 123 0RF Rx Instructions: stop date 07/29/24. Dx foot osteo. Weekly bmp, cbc, and esr. Fax to [phone]. Routine picc care per protocol. oxycodone 5 mg Tablet 5 mg PO Q4H PRN PRN (Reason: Pain Score 4-10) 2 Days Qty: 12 0RF Continued (DME) OneTouch Verio test strips Strip See Rx Instructions .ROUTE .MEDSUPPLY Qty: 100 12RF Rx Instructions: tid ascorbic acid (vitamin C) 500 MG capsule 500 mg PO DAILY geriatric slbnmdfz-vmmm-egql Tablet 1 tab PO DAILY atorvastatin 20 MG tablet 20 mg PO QHS clopidogrel 75 MG tablet 75 mg PO DAILY Patient Comments: pt to stop 5days preop per Dr Mims metformin 1,000 MG tablet 1,000 mg PO BID levothyroxine 125 mcg tablet 125 mcg PO DAILY lisinopril 10 MG tablet 10 mg PO DAILY Novolin N NPH U-100 Insulin 100 unit/mL suspension 40 unit SC BID aspirin 81 MG tablet,chewable 81 mg PO DAILY@0800 Patient Comments: pt to stop 5days preop per Dr Mims Rx Instructions: Hold for [address] Mims (DME) pen needle, diabetic 1 EACH needle 1 ea subcut ACHS Discontinued potassium 99 MG tablet 200 mg PO BID Novolin R Regular U100 Insulin 100 unit/mL solution 40 unit SC BID Referrals / Follow Up: Tyson Kunz MD [Med Staff - Active Staff] - See Referral Note (In 2 to 4 weeks, call for an appointment) Floyd Ricketts DO [Primary Care Provider] - [facility],[place] [facility] [Non-Staff] - See Referral Note (Appointment on 06/25/2024 at 8 AM-Dr. Barnett) Disposition Disposition (needs filled in before D/C Order can be placed): [facility]
--- NOTE | 2024-06-19 14:49 | DS.PCM_ITS ---
Providers Date of Admission: 06/10/24 Date of Discharge: 06/19/24 Primary Care Physician: Dr. Floyd Ricketts, Consultations 06/10/24 10:39 Consult: Infectious Disease Routine Consulting Provider: Kyle Rowland Reason for Consult: gangrene left foot EMERGENT Consult: No Notified: Yes Date Notified: 06/10/24 Time Notified: 09:55 Method of Notification: Verbal Consult: Podiatry Routine Consulting Provider: Sylvain Ruiz Reason for Consult: gangreme left foot EMERGENT Consult: No MD Notified: Yes Date Notified: 06/10/24 Time Notified: 09:55 Method of Notification: Verbal 06/11/24 12:40 Consult: Vascular Surgery Routine Consulting Provider: Tyson Kunz Reason for Consult: Ulcer, PAD EMERGENT Consult: No MD Notified: Yes Date Notified: 06/11/24 Time Notified: 12:40 Method of Notification: Text 06/13/24 11:27 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 Gangrene left foot-secondary to peripheral vascular disease from type 2 diabetes poorly controlled-patient remains on IV antibiotics at this time per infectious diseases, patient underwent an angiogram and intervention which improved blood flow to the left foot #2 type 2 vzlckhmx-hmlkzkfkncpm-ylrrqpy will have fingerstick blood sugars monitored and sliding scale insulin will be used as indicated #3 peripheral vascular disease-again according to podiatry, patient has significant peripheral vascular disease and will see vascular surgery during his hospital stay. #4 hyperlipidemia-patient is on a statin #5 hypothyroidism-patient is on Synthroid #6 essential hypertension-patient will remain on his outpatient medications and they will be adjusted as needed #7 class III obesity-complicates care, management, recovery, and prognosis Total clinical time spent by lilyelf addressing patient's medical issues, reviewing all of his data, and collaborating with patient's care team: 35-minute Medications at Discharge Home Medications ascorbic acid (vitamin C) 500 mg capsule 500 mg PO DAILY supplement 09/26/17 blood sugar diagnostic (Integrity Directional ServicesTouch Verio test strips) #100 ea 03/18/20 aspirin 81 mg chewable tablet 81 mg PO DAILY@0800 blood thinner 04/18/21 atorvastatin 20 mg tablet 20 mg PO QHS Cholesterol 04/18/21 clopidogrel 75 mg tablet 75 mg PO DAILY blood thinner 04/18/21 geriatric zirezozg-dmfh-euim 1 tab PO DAILY supplement 04/18/21 insulin NPH isoph U-100 human 100 unit/mL subcutaneous suspension (Novolin N NPH U-100 Insulin isophane) 40 unit subcut BID blood glucose 04/18/21 levothyroxine 125 mcg tablet 125 mcg PO DAILY thyroid 04/18/21 lisinopril 10 mg tablet 10 mg PO DAILY BP 04/18/21 metformin 1,000 mg tablet 1,000 mg PO BID blood glucose 04/18/21 pen needle, diabetic 29 gauge x 1/2 06/11/24 ampicillin-sulbactam 3 gram solution for injection 3 g IV Q8 41 days #123 ea 06/18/24 oxycodone 5 mg tablet 5 mg PO Q4H PRN PRN Pain Score 4-10 2 days #12 tabs 06/19/24 Hospital Course Operations - (Left foot debridement of ulceration down to and including bone; left lower extremity aortogram with atherectomy) Procedures PICC line placement Summary of Care Provided Minutes Spent on Discharge: 32 Hospital Course: This 74-year-old white male was seen in the emergency room at [facility] with complaints of a wound on the lateral aspect of his left foot for an unknown length of time. Workup in the emergency room showed the patient's white blood cell count to be elevated, x-ray of the left foot revealed an ulcer near the fifth metatarsal phalangeal joint with suspected osteomyelitis of the head of the fifth metatarsal bone and the base of the fifth proximal phalanx. Patient was seen in the emergency room by podiatry who recommended admission under medicine and recommend the patient go to surgery that day. Patient was placed on IV Cipro and IV Flagyl, he was admitted to PCU after the surgery was completed and seen by infectious diseases. Patient was seen by PT and OT, it was recommended the patient go to an extended care facility for short-term shelter services. Vascular surgery saw the patient and performed an aortogram on the left leg with atherectomy. On 06/19/2024, patient was seen and examined:alert, oriented x3 and no apparent distress Constitutional Narrative: Class III obesity General Appearance: cooperative, well kempt and well developed Orientation / Consciousness: awake, oriented to person, oriented to place and oriented to time HEENT normocephalic, head/scalp atraumatic, hearing grossly normal bilaterally and moist oral mucous membranes Eyes PERRL, EOMs intact bilaterally and conjunctivae normal Neck supple, no JVD, thyroid normal and no carotid bruits General: trachea midline Resp normal respiratory effort, no retractions, no use of accessory muscles and clear to auscultation bilaterally Auscultation: Negative for rales, rhonchi or wheezes Cardio regular rate, regular rhythm, S1 normal heart sound, S2 normal heart sound, no murmurs, no rub and no gallops GI normal to inspection, nondistended, normoactive bowel sounds, soft to palpation, non-tender and non-distended Extremity Extremity Narrative: Patient's left lower leg and left foot is bandaged with surgical dressing, this was not removed today for examination Skin Skin Narrative: Patient has surgical dressing present over his left lower leg and left foot area, this was not removed for examination Neuro oriented x3, CN's II-XII intact bilaterally and no focal motor deficits Neuro Narrative: Decreased sensation to light touch and pain over the feet bilaterally Sensorium / Orientation: awake and alert Speech: speech normal Psych affect normal Patient was discharged to an extended care facility on 06/19/2024 and stable condition. Weight / BMI Weight Weight: 134 kg Body Mass Index (BMI) 38.9 ABG / Lab / Microbiology Data 06/13/24 05:10 06/16/24 05:33 Laboratory: Laboratory Results - last 24 hr 06/18/24 16:52: POC Glucose 232 H 06/18/24 21:42: POC Glucose 257 H 06/19/24 06:06: POC Glucose 258 H 06/19/24 11:45: POC Glucose 311 H Microbiology: Microbiology 06/10/24 15:07 Bone - 5th Toe Gram Stain - Final 06/10/24 15:07 Bone - 5th Toe Wound Culture - Final Staphylococcus aureus Enterococcus faecalis Staphylococcus epidermidis Granulicatella adiacens 06/10/24 15:07 Bone - 5th Toe Anaerobic Culture - Final Prevotella melaninogenica Clostridium group Anaerobic cocci 06/10/24 15:10 Bone - 5th Toe Gram Stain - Final 06/10/24 15:10 Bone - 5th Toe Wound Culture - Final Staphylococcus epidermidis Staphylococcus lugdunensis 06/10/24 15:10 Bone - 5th Toe Anaerobic Culture - Final Prevotella melaninogenica Anaerobic cocci 06/10/24 07:36 Blood Culture (Wb) - Anticubital Right Blood Culture - Final No growth in 5 days. 06/10/24 07:36 Blood Culture (Wb) - Anticubital Left Blood Culture - Final No growth in 5 days. 06/10/24 07:20 Wound - Left Foot Gram Stain - Final 06/10/24 07:20 Wound - Left Foot Wound Culture - Final Staphylococcus aureus Enterococcus faecalis 06/10/24 07:20 Wound - Left Foot Anaerobic Culture - Final Anaerobic cocci Prevotella melaninogenica D/C Instructions DC O2, CPAP, BIPAP Needs Additional Home O2 Discharge instructions: No DC home with Oxygen: No Meaningful Use Info Meaningful Use Meaningful Use Diagnoses (Choose all that apply): None applicable Ischemic Stroke Statin Dosing Therapy Reference: STATIN DOSE THERAPY REFERENCE: * Patients > 75 years receive moderate or high dose statin therapy. * Patients 75 years or YOUNGER should receive HIGH intensity statin dose unless contraindicated. You will be required to document reason for non-treatment if statin daily dose does not meet guidelines. HIGH DOSE STATIN THERAPY DAILY Atorvastatin > than or = to 40 mg Rosuvastatin > than or = to 20 mg Amlodipine + Atorvastatin > than or = to 2.5/40 mg Ezetimibe + Simvastatin 10/80 mg Simvastatin 80mg Discharge Plan Admission Admit Date/Time: 06/10/24 09:44 Primary Reason for Your Visit: Gangrene of left foot, peripheral vascular disease Attending Provider: Floyd Shah Primary Care Provider: Floyd Ricketts Consulting Providers: Kyle Rowland; Sylvain Ruiz; Tyson Kunz; Floyd Shah; Tyson Alvarez Discharge Orders/Prescriptions Prescriptions: New ampicillin-sulbactam 3 gram Recon Soln 3 g IV Q8 41 Days Qty: 123 0RF Rx Instructions: stop date 07/29/24. Dx foot osteo. Weekly bmp, cbc, and esr. Fax to [phone]. Routine picc care per protocol. oxycodone 5 mg Tablet 5 mg PO Q4H PRN PRN (Reason: Pain Score 4-10) 2 Days Qty: 12 0RF Continued (DME) OneTouch Verio test strips Strip See Rx Instructions .ROUTE .MEDSUPPLY Qty: 100 12RF Rx Instructions: tid ascorbic acid (vitamin C) 500 MG capsule 500 mg PO DAILY geriatric twymkmxg-eibe-xzqo Tablet 1 tab PO DAILY atorvastatin 20 MG tablet 20 mg PO QHS clopidogrel 75 MG tablet 75 mg PO DAILY Patient Comments: pt to stop 5days preop per Dr Mims metformin 1,000 MG tablet 1,000 mg PO BID levothyroxine 125 mcg tablet 125 mcg PO DAILY lisinopril 10 MG tablet 10 mg PO DAILY Novolin N NPH U-100 Insulin 100 unit/mL suspension 40 unit SC BID aspirin 81 MG tablet,chewable 81 mg PO DAILY@0800 Patient Comments: pt to stop 5days preop per Dr Mims Rx Instructions: Hold for [address] Mims (DME) pen needle, diabetic 1 EACH needle 1 ea subcut ACHS Discontinued potassium 99 MG tablet 200 mg PO BID Novolin R Regular U100 Insulin 100 unit/mL solution 40 unit SC BID Referrals / Follow Up: Tyson Kunz MD [Med Staff - Active Staff] - See Referral Note (In 2 to 4 weeks, call for an appointment) Floyd Ricketts DO [Primary Care Provider] - [facility]ic Medicine,[place] [facility] [Non-Staff] - See Referral Note (Appointment on 06/25/2024 at 8 AM-Dr. aBrnett) Disposition Disposition (needs filled in before D/C Order can be placed): [facility] Charges/Coding Visit Charges Inpatient E&M: 26540 Disch Hosp >30min
--- NOTE | 2024-06-19 14:51 | CASEMGMT ---
Social Work Precert has been obtained.? Physician updated and pt is ready for discharge today.? PASRR form completed in [facility]. [facility] notified of discharge. Disposition:[facility], skilled level of care under convalescent stay. GALINA Tabor
--- NOTE | 2024-06-19 15:42 | CASEMGMT ---
Discharge Planning Discharge orders, signed med list, and transport time sent to [facility]. Physicians will transport patient by wheelchair at 5p. Nursing, SW, patient, and his granddaughter (Neida) updated. Shannon Bentley DC Planning Asst.
[2024-06-19 16:53] VITALS: BP 176/77; PULSE 88; RESP 18; TEMP 36.7; O2SAT 96
[2024-06-19 17:10] LABS: Bedside Glucose 255 mg/dL (74-106)
--- NOTE | 2024-06-19 17:47 | NURSING ---
Report given to Xiao OWUSU at [facility].
== END 2024-06-19 19:05 | disposition skilled nursing facility (03) | DRG 271 ==
LOC: ED 09:46 → PCU 10:19
PROVIDERS: Internal Medicine Infectious Disease; Podiatrist; Surgery Trauma Surgery; Admitting Provider Internal Medicine; Emergency Provider Emergency Medicine; PCP Family Medicine; Visit Provider Internal Medicine
PROC: 0QBP0ZZ Excision of Left Metatarsal, Open Approach (ICD-10-PCS; principal; 2024-06-10 14:00)
DX: E11.52 Type 2 diabetes mellitus with diabetic peripheral angiopathy with gangrene (principal); I70.262 Atherosclerosis of native arteries of extremities with gangrene, left leg; E87.20 Acidosis, unspecified; M86.172 Other acute osteomyelitis, left ankle and foot; I70.92 Chronic total occlusion of artery of the extremities; L03.116 Cellulitis of left lower limb; L97.525 Non-pressure chronic ulcer of other part of left foot with muscle involvement without evidence of necrosis; E11.69 Type 2 diabetes mellitus with other specified complication; I10 Essential (primary) hypertension; E03.9 Hypothyroidism, unspecified; Z68.38 Body mass index [BMI] 38.0-38.9, adult; E11.621 Type 2 diabetes mellitus with foot ulcer; E11.42 Type 2 diabetes mellitus with diabetic polyneuropathy; Z79.4 Long term (current) use of insulin; E78.00 Pure hypercholesterolemia, unspecified; Z89.411 Acquired absence of right great toe; E66.813 Obesity, class 3; Z79.890 Hormone replacement therapy; Z79.02 Long term (current) use of antithrombotics/antiplatelets; Z79.82 Long term (current) use of aspirin; Z79.84 Long term (current) use of oral hypoglycemic drugs; Z87.891 Personal history of nicotine dependence
CPT/HCPCS: 36200; 36245; 36415; 36569; 37225; 37252; 37253; 73630; 75625; 75635; 75710; 76937; 80048; 80053; 80076; 80202; 82962; 83036; 83605; 83690; 84484; 85025; 85347; 85610; 85730; 87015; 87040; 87070; 87075; 87077; 87102; 87116; 87186; 87205; 87206; 88304; 88311; 93005; 93923; 97110; 97116; 97162; 97166; 97530; 97535; 97802; 97803; 99152; 99153; 99285; C1724; C1725; C1753; C1769; C1884; C1887; C1894; C2623; J7030; J7040; J7050; Q9967; A4216; J0295; J0696; J3490

== ENCOUNTER 2024-07-15 08:15 | Outpatient (RCR) | payer MEDICARE, SELFPAY ==
[2024-06-25 08:27] VITALS: BP 133/73; PULSE 97; RESP 18; TEMP 35.7; BMI 35.7
--- NOTE | 2024-06-25 09:10 | PCM.WC.HP ---
History of Present Illness Date of Service: 06/25/24 Chief Complaint: right great toe ulcer healed History of Wound: Mr. Palacios is a 74-year-old diabetic male seen at the wound care center today for follow-up evaluation of status post fifth ray resection with wound VAC application. Patient currently residing in a half-way facility. He is doing well with dressing changes. He admits that he is feeling better. He is getting PICC line antibiotics through the PICC line in his left arm. Otherwise he denies any trauma. Denies constitutional symptoms. No other pedal complaints at this time. Progress of Wound: Mr. Palacios is a 74-year-old diabetic male presented wound care center today for further evaluation of a full-thickness wound to the left foot. He is status post fifth ray resection with wound VAC application done by an outside provider. He has been getting wound VAC changes as scheduled at the half-way facility. His blood sugar has been well-controlled. His last HbA1c was 7.5% while in the hospital. He is getting PICC line antibiotics managed by infectious disease. He denies any trauma. Denies constitutional symptoms. He does admit to some soreness of throat and has tested positive today for COVID. No other pedal complaints at this time. [facility] Medical History (Updated 06/25/24 @ 09:[address] Felipe Barnett DPM) Other specified peripheral vascular diseases Wears glasses Bladder disease High cholesterol Easy bruising Former smoker Neuropathy History of edema Leg cramps Family history of stent PAD (peripheral artery disease) HTN (hypertension) Hypothyroid Diabetes mellitus Home Medications ?Medication ?Instructions ?Recorded ?Last Taken ?Type ascorbic acid (vitamin C) 500 mg 500 mg PO DAILY supplement 09/26/17 07/21/20 08:00 History capsule blood sugar diagnostic (Atreo MedicalTouch #100 ea 03/18/20 Unknown Rx Verio test strips) aspirin 81 mg chewable tablet 81 mg PO DAILY@0800 blood thinner 04/18/21 06/10/24 History atorvastatin 20 mg tablet 20 mg PO QHS Cholesterol 04/18/21 Unknown History clopidogrel 75 mg tablet 75 mg PO DAILY blood thinner 04/18/21 06/10/24 History geriatric apacetvf-gypo-ldey 1 tab PO DAILY supplement 04/18/21 06/10/24 History insulin NPH isoph U-100 human 100 40 unit subcut BID blood glucose 04/18/21 06/10/24 History unit/mL subcutaneous suspension (Novolin N NPH U-100 Insulin isophane) levothyroxine 125 mcg tablet 125 mcg PO DAILY thyroid 04/18/21 Unknown History lisinopril 10 mg tablet 10 mg PO DAILY BP 04/18/21 06/10/24 History metformin 1,000 mg tablet 1,000 mg PO BID blood glucose 04/18/21 06/10/24 History pen needle, diabetic 29 gauge x 06/11/24 Unknown History 1/2 ampicillin-sulbactam 3 gram 3 g IV Q8 41 days #123 ea 06/18/24 Unknown Rx solution for injection oxycodone 5 mg tablet 5 mg PO Q4H PRN PRN Pain Score 06/19/24 Unknown Rx 4-10 2 days #12 tabs Allergy/AdvReac Type Severity Reaction Status Date / Time No Known Allergies Allergy Verified 06/10/24 06:49 Family History Father Diabetes Heart disease Hypertension Surgical History History of amputation of toe History of transurethral destruction of bladder lesion S/P tonsillectomy S/P colonoscopy Social History Smoking Status: Former smoker Vital Signs Vital Signs Vital Signs: 06/25/24 08:27 Temperature 96.2 F L Temperature Source Temporal Pulse Rate 97 Respiratory Rate 18 Blood Pressure 133/73 H Blood Pressure Mean 93 Blood Pressure Source Monitor Blood Pressure Position Sitting Blood Pressure Location Left Arm Oxygen Delivery Method Room Air Weight Weight: 122.924 kg Body Mass Index (BMI) 35.7 Physical Exam Narrative Vascular: DP and PT pulses are faintly palpable to left extremity. CFT is brisk. Blanchable erythema to periwound to the left lower extremity. Skin temp great is warm to warm from proximal ankles to distal digits to left lower extremity. Nonpitting edema appreciated left lower extremity. Neurological: Light touch intact. Protective station is absent. Dermatological: Full-thickness ulceration to the left foot status post fifth ray resection. Full-thickness wound measures 9.5 x 4.7 x 0.5 cm. Evidence of granular tissue and exposed tendon as well as extent of exposed bone. No drainage or malodor. Excisional debridement down to and including subcutaneous tissue, fascia, tendon and bone of the left foot with a number 7 mm dermal curette without incident. Predebridement measurement was 9.0 x 4.3 x 0.4 cm. Postdebridement measurement is 9.5 x 4.7 0.5 cm. Musculoskeletal: No pain on palpation to the full-thickness wound to the left foot. No pain with calf pressure. Debridement Note Debridement Note Debridement Free Text: Excisional debridement down to and including subcutaneous tissue, fascia, tendon and bone of the left foot with a number 7 mm dermal curette without incident. Predebridement measurement was 9.0 x 4.3 x 0.4 cm. Postdebridement measurement is 9.5 x 4.7 0.5 cm. Post-Debridement Measurements and Additional Note: Post-Debridement Measurements/Treatment WC - Nurse 1 - General Ulcer Assessment Start: 06/25/24 08:21 Freq: Status: Active Protocol: FIDENCIO Activity Type Activity Date Activity User E-sign Co-sign Detail Recorded Client Recorded Date Recorded By Document 06/25/24 08:27 [id number] 06/25/24 08:38 CP 06/25/24 08:27 WC - Today's Visit Information Type of service Initial Visit Arrival Mode Wheelchair Patient Identification Verified (Name & Yes ) Finger Stick Blood Sugar(mg/dl) (if 135 indicated): Blood Sugar Done During this Visit Height and Weight Height 6 ft 1 in Weight 122.924 kg Weight in Pounds 271.0 lbs Weight Measurement Method Estimated by Patient Body Mass Index (BMI) 35.7 BMI Classification Obese BSA - Berhane 2.45 Vital Signs Temperature (97.8 F-99.1 F) 96.2 F L Temperature Source Temporal Pulse Rate (60-100) 97 Pulse Location Monitor Respiratory Rate (12-18) 18 Respiratory rate source Observation Oxygen Delivery Method Room Air Blood Pressure (90/60-120/80) 133/73 H Blood Pressure Mean 93 Source Monitor Position Sitting Blood Pressure Location Left Arm History Since Last Visit- (Skip if this is Patient's initial visit) Left Footwear No Footwear Right Footwear No Footwear Pain Scale: 0-10 Numeric Is Patient Pain Free? No lt foot -Description Throbbing -Alleviating Factors/Interventions Medication, Medicate when due WC - Nurse 1 - General Ulcer Measurement Start: 06/25/24 08:21 Freq: Status: Active Protocol: Activity Type Activity Date Activity User E-sign Co-sign Detail Recorded Client Recorded Date Recorded By Document 06/25/24 08:27 [email or web address] [id number] 06/25/24 08:38 CP 06/25/24 08:27 Wound Center Nurse 1 4 LT LAT FOOT -Current Size (cm) - Length 9.6 -Current Size (cm) - Width 4.8 -Current Size (cm) - Depth 0.5 -Total Square Cm 46.08 -Date of Last Picture (Recall this 06/25/24 field) -Exudate Amt Medium -Exudate Type Serosanguineous -Wound Margin Distinct, Outline Attached -Granulation Amt Medium (34-66%) -Granulation Quality Red -Necrosis Amt Small (1-33%) -Necrotic Tissue Type Eschar -Texture (Maxine-wound Skin Appearance) Assessed -Moisture (Maxine-wound Skin Appearance) Assessed -Color (Maxine-wound Skin Appearance) Assessed -Temperature (Maxine-wound Skin No Abnormality Appearance) (Pt Warm) -Tenderness on Palpation (Maxine-wound No Skin Appearance) -Ulcer Cleansing Soap and Water -Foul Odor after Cleansing No -Anesthetic Used 4% Lidocaine Solution WC - Nurse 2 - General Ulcer CM Notes Start: 06/25/24 08:21 Freq: Status: Active Protocol: Activity Type Activity Date Activity User E-sign Co-sign Detail Recorded Client Recorded Date Recorded By Document 06/25/24 08:46 [email or web address] [id number] 06/25/24 08:53 06/25/24 08:46 Wound Center Nurse 2 -Time 08:51 -Correct Patient Yes -Correct Side, Site, Position Yes -Correct Procedure Yes -Procedure Performed Yes -Type of Procedure Debridement -Clinical Debridement Bone -Tissue Removed Non-viable tissue -Post Debridement (cm) - Length 9.5 -Post Debridement (cm) - Width 4.7 -Post Debridement (cm) - Depth 0.5 -Total Square (Post) (cm) 44.65 -Area of Debridement (cm) - Length 9.5 -Area of Debridement (cm) - Width 4.7 -Total Square (Area) (cm) 44.65 -Tunneling No -Undermining/Tunneling No -Circular Undermining No -Wound/Ulcer Outcome Not Healed -Ulcer Cleansing Rinsed/ Irrigated with Saline -Foul Odor after Cleansing No -Bioengineered Tissue No -Bleeding Controlled with Pressure -Treatment Response Procedure Tolerated Well -Offloading No -Assistive Device(s) Wheelchair, Walker -Debridement - Bone, 1st 20sq cm Yes -Debridement, Bone, ea addt'l 20sq cm 2 or part thereof Pain Scale: 0-10 Numeric Is Patient Pain Free? Yes Assessment/Plan Assessment/Plan (1) Non-pressure chronic ulcer of other part of left foot with bone involvement without evidence of necrosis: CODE(S): L97.526 - Non-pressure chronic ulcer of other part of left foot with bone involvement without evidence of necrosis PLAN: Patient was examined and evaluated. All findings were discussed with the patient. All questions were answered to the patient's satisfaction. Excisional debridement down to and including subcutaneous tissue, fascia, tendon and bone of the left foot with a number 7 mm dermal curette without incident. Predebridement measurement was 9.0 x 4.3 x 0.4 cm. Postdebridement measurement is 9.5 x 4.7 0.5 cm. Left lower extremities are clean and patted dry. Negative pressure wound VAC with white and black foam was applied to the left foot. Orders will be given for every other day wound VAC changes at the half-way facility. I did discuss with the patient that he is always at risk for a transmetatarsal amputation versus Lisfranc amputation if his wound does not heal which she was understanding of. He will continue strict blood sugar control during the process of his wound care. He was educated the patient that it can take at least a minimum of 6 months to heal this wound which he was understanding of. The patient is grateful for his care and will follow-up in 1 week Patient will continue IV antibiotics per infectious disease recommendation. Follow-up at the wound care center with Dr. Barnett in 1 week. (2) Acute painful diabetic polyneuropathy: CODE(S): E11.42 - Type 2 diabetes mellitus with diabetic polyneuropathy (3) Other specified peripheral vascular diseases: CODE(S): I73.89 - Other specified peripheral vascular diseases
--- NOTE | 2024-06-26 08:53 | WC ---
PHOTO 06/25/24 LT LATERAL FOOT
[2024-07-01 14:30] LABS: Bedside Glucose 135 mg/dL (74-106)
[2024-07-08 08:07] VITALS: BP 149/73; PULSE 90; RESP 18; TEMP 35.9; BMI 35.7
--- NOTE | 2024-07-08 08:51 | PN.PCM_ITS ---
History of Present Illness Date of Service: 07/08/24 Chief Complaint: right great toe ulcer healed History of Wound: Mr. Palacios is a 74-year-old diabetic male seen at the wound care center today for follow-up evaluation of status post fifth ray resection with wound VAC application. Patient currently residing in a long-term facility. He is doing well with dressing changes. He admits that he is feeling better. He is getting PICC line antibiotics through the PICC line in his left arm. Otherwise he denies any trauma. Denies constitutional symptoms. No other pedal complaints at this time. Progress of Wound: Mr. Palacios is a 74-year-old diabetic male presented wound care center today for further evaluation of a full-thickness wound to the left foot. He is status post fifth ray resection with wound VAC application done by an outside provider. He has been getting wound VAC changes as scheduled at the long-term facility. His blood sugar has been well-controlled. His last HbA1c was 7.5% while in the hospital. He is getting PICC line antibiotics managed by infectious disease. He denies any trauma. Denies constitutional symptoms. He does admit to some soreness of throat and has tested positive today for COVID. No other pedal complaints at this time. Subjective Subjective Mr. Palacios is a 74-year-old diabetic male presenting the wound care center today follow-up evaluation of full-thickness wound status post left foot surgery by an outside provider with wound VAC placement. Patient has been getting dressing changes as scheduled at the long-term facility. He has his PICC line in place. He is getting IV antibiotics as scheduled. He denies any pain to the area. He presents today for continued evaluation. Denies trauma. Denies constitutional symptoms. No other pedal complaints at this time. Objective Data Objective Data Vital Signs: Vital Signs Temp Pulse Resp BP O2 Del Method 96.6 F L 90 18 149/73 H Room Air 07/08/24 08:07 07/08/24 08:07 07/08/24 08:07 07/08/24 08:07 07/08/24 08:07 Oxygen Delivery Method Room Air Weight: 122.924 kg Body Mass Index (BMI) 35.7 Physical Exam Narrative Vascular: DP and PT pulses are faintly palpable to left extremity. CFT is brisk. Blanchable erythema to periwound to the left lower extremity. Skin temp great is warm to warm from proximal ankles to distal digits to left lower extremity. Nonpitting edema appreciated left lower extremity. Neurological: Light touch intact. Protective station is absent. Dermatological: Full-thickness ulceration to the left foot status post fifth ray resection. Full-thickness wound measures 9.4 x 4.0 x 0.5 cm. Evidence of granular tissue, exposed tendon and exposed cuboid bone. No drainage or malodor. Excisional debridement down to and including subcutaneous tissue, fascia, tendon and bone of the left foot with a number 7 mm dermal curette without incident. Predebridement measurement was 4.3 x 3.8 x 0.4 cm. Postdebridement measurement is 9.4 x 4.0 x 0.5 cm. Musculoskeletal: No pain on palpation to the full-thickness wound to the left foot. No pain with calf pressure. Debridement Note Debridement Note Post-Debridement Measurements and Additional Note: Post-Debridement Measurements/Treatment - Nurse 1 - General Ulcer Assessment Start: 06/25/24 08:21 Freq: Status: Active Protocol: FIDENCIO Activity Type Activity Date Activity User E-sign Co-sign Detail Recorded Client Recorded Date Recorded By Document 06/25/24 08:27 [id number] 06/25/24 08:38 CP Document 07/08/24 08:07 [facility] [id number] 07/08/24 08:23 BM 06/25/24 07/08/24 08:27 08:07 - Today's Visit Information Type of service Initial Visit Follow-up Visit (Physician/SWIMMING INSTRUCTOR ) Arrival Mode Wheelchair Walker, Wheelchair Transfer Assistance Other Transfer Assist (Other) 2 Accompanied by transport assisted into room Patient Identification Verified (Name & Yes Yes ) Patient Requires Transmission-Based No Precautions Finger Stick Blood Sugar(mg/dl) (if 135 indicated): Blood Sugar Done During this Visit Height and Weight Height 6 ft 1 in Weight 122.924 kg Weight in Pounds 271.0 lbs Weight Measurement Method Estimated by Patient Body Mass Index (BMI) 35.7 35.7 BMI Classification Obese Obese BSA - Berhane 2.45 Vital Signs Temperature (97.8 F-99.1 F) 96.2 F L 96.6 F L Temperature Source Temporal Temporal Pulse Rate (60-100) 97 90 Pulse Location Monitor Monitor Respiratory Rate (12-18) 18 18 Respiratory rate source Observation Observation Oxygen Delivery Method Room Air Room Air Blood Pressure (90/60-120/80) 133/73 H 149/73 H Blood Pressure Mean (mm Hg) 93 98 Source Monitor Monitor Position Sitting Sitting Blood Pressure Location Left Arm Left Arm History Since Last Visit- (Skip if this is Patient's initial visit) Have you changed medications since your No last visit? Any new allergies or adverse reactions No Had a fall/change in ADL's that may No increase risk of falls Signs or symptoms of abuse and/or No neglect since last visit Have you been in the hospital since your No last visit? Has dressing in place as prescribed Yes Has compression in place as prescribed No Has offloadiing in place as prescribed N/A Experienced any changes in pain level or No management Left Footwear No Footwear No Footwear Right Footwear No Footwear Slipper Other Footwear barefoot on the left Pain Scale: 0-10 Numeric Is Patient Pain Free? No Yes lt foot -Description Throbbing -Alleviating Factors/Interventions Medication, Medicate when due WC - Nurse 1 - General Ulcer Measurement Start: 06/25/24 08:21 Freq: Status: Active Protocol: Activity Type Activity Date Activity User E-sign Co-sign Detail Recorded Client Recorded Date Recorded By Document 06/25/24 08:27 [id number] 06/25/24 08:38 Document 07/08/24 08:07 [facility] [id number] 07/08/24 08:23 [facility] 06/25/24 07/08/24 08:27 08:07 Wound Center Nurse 1 4 LT LAT FOOT -Combined with other wound No -Current Size (cm) - Length 9.6 9.5 -Current Size (cm) - Width 4.8 3.7 -Current Size (cm) - Depth 0.5 1 -Total Square Cm 46.08 35.15 -Date of Last Picture (Recall this 06/25/24 07/08/24 field) -Photo Taken Yes -Epithelialization Small 1-33% -Tunneling No -Undermining/Tunneling No -Circular Undermining No -Exudate Amt Medium Large -Exudate Type Serosanguineous Serosanguineous -Wound Margin Distinct, Distinct, Outline Outline Attached Attached -Granulation Amt Medium (34-66%) Large (67-100%) -Granulation Quality Red Red -Slough/Fibrin Yes -Necrosis Amt Small (1-33%) Small (1-33%) -Necrotic Tissue Type Eschar Adherent Slough -Texture (Maxine-wound Skin Appearance) Assessed Assessed, Localized Edema -Moisture (Maxine-wound Skin Appearance) Assessed Assessed,Dry/ Scaly -Color (Maxine-wound Skin Appearance) Assessed Assessed, Erythema -Temperature (Maxine-wound Skin No Abnormality No Abnormality Appearance) (Pt Warm) (Pt Warm) -Tenderness on Palpation (Maxine-wound No No Skin Appearance) -Ulcer Cleansing Soap and Water Soap and Water -Foul Odor after Cleansing No No -Anesthetic Used 4% Lidocaine 4% Lidocaine Solution Solution WC - Nurse 2 - General Ulcer CM Notes Start: 06/25/24 08:21 Freq: Status: Active Protocol: Activity Type Activity Date Activity User E-sign Co-sign Detail Recorded Client Recorded Date Recorded By Document 06/25/24 08:46 [id number] 06/25/24 08:53 Document 07/08/24 08:28 [id number] 07/08/24 08:31 06/25/24 07/08/24 08:46 08:28 Wound Center Nurse 2 4 LT LAT FOOT -Time 08:51 08:28 -Correct Patient Yes Yes -Correct Side, Site, Position Yes Yes -Correct Procedure Yes Yes -Procedure Performed Yes Yes -Type of Procedure Debridement Debridement -Clinical Debridement Bone Bone -Tissue Removed Non-viable Non-viable tissue tissue -Post Debridement (cm) - Length 9.5 9.4 -Post Debridement (cm) - Width 4.7 4 -Post Debridement (cm) - Depth 0.5 0.5 -Total Square (Post) (cm) 44.65 37.6 -Area of Debridement (cm) - Length 9.5 9.4 -Area of Debridement (cm) - Width 4.7 4 -Total Square (Area) (cm) 44.65 37.6 -Tunneling No No -Undermining/Tunneling No No -Circular Undermining No No -Wound/Ulcer Outcome Not Healed Not Healed -Ulcer Cleansing Rinsed/ Rinsed/ Irrigated with Irrigated with Saline Saline -Foul Odor after Cleansing No No -Bioengineered Tissue No No -Bleeding Controlled with Pressure Pressure -Treatment Response Procedure Procedure Tolerated Well Tolerated Well -Offloading No Yes -Type of Offloading Surgical Shoe -Assistive Device(s) Wheelchair, Walker -Debridement - Bone, 1st 20sq cm Yes Yes -Debridement, Bone, ea addt'l 20sq cm 2 1 or part thereof Pain Scale: 0-10 Numeric Is Patient Pain Free? Yes Yes WC - Nurse 3 - General Ulcer D/C NN Start: 06/25/24 08:21 Freq: Status: Active Protocol: Activity Type Activity Date Activity User E-sign Co-sign Detail Recorded Client Recorded Date Recorded By Document 07/08/24 08:47 DL [id number] 07/08/24 08:50 DL 07/08/24 08:47 Wound Care Center Nurse 3 4 LT LAT FOOT -Ulcer Cleansing Soap and Water -Foul Odor after Cleansing No -Negative Pressure Wound Therapy Continue -Setting (mmHg) 125 -Negative Pressure is Continuous -NPWT Application Charge NPWT & Debridement (nc ) Right -Compression Wrap Freddie Wrap Treatment Response Procedure Tolerated Well Pain Scale: 0-10 Numeric Is Patient Pain Free? Yes WC - Visit Discharge Discharge Condition Stable Ambulatory Status Ambulatory, Wheelchair Transportation ECF Trans Notes: Dressing applied per Sue Cabrera today. Facility Type [facility] Orders Sent Yes Assessment/Plan Assessment/Plan (1) Non-pressure chronic ulcer of other part of left foot with bone involvement without evidence of necrosis: CODE(S): L97.526 - Non-pressure chronic ulcer of other part of left foot with bone involvement without evidence of necrosis PLAN: Patient was examined and evaluated. All findings were discussed with the patient. All questions were answered to the patient's satisfaction. Excisional debridement down to and including subcutaneous tissue, fascia, tendon and bone of the left foot with a number 7 mm dermal curette without incident. Predebridement measurement was 4.3 x 3.8 x 0.4 cm. Postdebridement measurement is 9.4 x 4.0 x 0.5 cm. Left lower extremities are clean and patted dry. Negative pressure wound VAC with white and black foam was applied to the left foot. Orders will be given for every other day wound VAC changes at the long-term facility. Follow-up at the wound care center with Dr. Barnett in 1 week. (2) Acute painful diabetic polyneuropathy: CODE(S): E11.42 - Type 2 diabetes mellitus with diabetic polyneuropathy (3) Other specified peripheral vascular diseases: CODE(S): I73.89 - Other specified peripheral vascular diseases
--- NOTE | 2024-07-10 09:14 | WC ---
PHOTO 07/08/24 LEFT LATERAL FOOT
[2024-07-15 08:08] VITALS: BP 168/79; PULSE 90; RESP 18; BMI 35.7
--- NOTE | 2024-07-15 09:49 | PCM.WC.PN ---
History of Present Illness Date of Service: 07/15/24 Chief Complaint: right great toe ulcer healed History of Wound: Mr. Palacios is a 74-year-old diabetic male seen at the wound care center today for follow-up evaluation of status post fifth ray resection with wound VAC application. Patient currently residing in a [facility] facility. He is doing well with dressing changes. He admits that he is feeling better. He is getting PICC line antibiotics through the PICC line in his left arm. Otherwise he denies any trauma. Denies constitutional symptoms. No other pedal complaints at this time. Progress of Wound: Mr. Palacios is a 74-year-old diabetic male presented wound care center today for further evaluation of a full-thickness wound to the left foot. He is status post fifth ray resection with wound VAC application done by an outside provider. He has been getting wound VAC changes as scheduled at the [facility] facility. His blood sugar has been well-controlled. His last HbA1c was 7.5% while in the hospital. He is getting PICC line antibiotics managed by infectious disease. He denies any trauma. Denies constitutional symptoms. He does admit to some soreness of throat and has tested positive today for COVID. No other pedal complaints at this time. Subjective Subjective Mr. Palacios is a 74-year-old diabetic male presented with concern today follow-up evaluation of left foot full-thickness wound down to bone. Patient has been getting wound VAC changes by the nursing facility at his SNF. He states they are not washing his foot with soap and water but using body wipes. He is concern for redness to the fourth toe. His blood sugar has been elevated. He is getting his IV antibiotics as scheduled. He denies any trauma. Denies constitutional symptoms. No other pedal complaints at this time. Objective Data Objective Data Vital Signs: Vital Signs Temp Pulse Resp BP O2 Del Method 96.6 F L 90 18 168/79 H Room Air 07/08/24 08:07 07/15/24 08:08 07/15/24 08:08 07/15/24 08:08 07/15/24 08:08 Oxygen Delivery Method Room Air Weight: 122.924 kg Body Mass Index (BMI) 35.7 Physical Exam Narrative Vascular: DP and PT pulses are faintly palpable to left extremity. CFT is brisk. Blanchable erythema and fourth digit to periwound to the left lower extremity. Skin temp great is warm to warm from proximal ankles to distal digits to left lower extremity. Nonpitting edema appreciated left lower extremity. Neurological: Light touch intact. Protective station is absent. Dermatological: Full-thickness ulceration to the left foot status post fifth ray resection. Full-thickness wound measures 8.8 x 3.6 x 1.5 cm. Evidence of granular tissue, exposed tendon and exposed cuboid bone. No drainage or malodor. Erythema to the left fourth digit which is blanchable. Excisional debridement down to and including subcutaneous tissue, fascia, tendon and bone of the left foot with a number 7 mm dermal curette without incident. Predebridement measurement was 8.7 x 3.4 x 1.4 cm. Postdebridement measurement is 8.8 x 3.6 x 1.5 cm. Musculoskeletal: No pain on palpation to the full-thickness wound to the left foot. No pain with calf pressure. Debridement Note Debridement Note Debridement Free Text: Excisional debridement down to and including subcutaneous tissue, fascia, tendon and bone of the left foot with a number 7 mm dermal curette without incident. Predebridement measurement was 8.7 x 3.4 x 1.4 cm. Postdebridement measurement is 8.8 x 3.6 x 1.5 cm. Post-Debridement Measurements and Additional Note: Post-Debridement Measurements/Treatment - Nurse 1 - General Ulcer Assessment Start: 06/25/24 08:21 Freq: Status: Active Protocol: LANIE.CLAIRE Activity Type Activity Date Activity User E-sign Co-sign Detail Recorded Client Recorded Date Recorded By Document 06/25/24 08:27 CP [id number] 06/25/24 08:38 CP Document 07/08/24 08:07 BMF [id number] 07/08/24 08:23 BMF Document 07/15/24 08:08 KW [id number] 07/15/24 08:26 KW 06/25/24 07/08/24 07/15/24 08:27 08:07 08:08 - Today's Visit Information Type of service Initial Visit Follow-up Visit Follow-up Visit (Physician/SLOT MACHINE KEY PERSON (Physician/SLOT MACHINE KEY PERSON ) ) Arrival Mode Wheelchair Walker, Wheelchair Wheelchair Transfer Assistance Other Transfer Assist (Other) 2 Accompanied by transport assisted into room Patient Identification Verified (Name & Yes Yes Yes ) Patient Requires Transmission-Based No Precautions Finger Stick Blood Sugar(mg/dl) (if 135 indicated): Blood Sugar Done During this Visit Height and Weight Height 6 ft 1 in Weight 122.924 kg Weight in Pounds 271.0 lbs Weight Measurement Method Estimated by Patient Body Mass Index (BMI) 35.7 35.7 35.7 BMI Classification Obese Obese Obese BSA - Berhane 2.45 Vital Signs Temperature (97.8 F-99.1 F) 96.2 F L 96.6 F L Temperature Source Temporal Temporal Pulse Rate (60-100) 97 90 90 Pulse Location Monitor Monitor Monitor Respiratory Rate (12-18) 18 18 18 Respiratory rate source Observation Observation Observation Oxygen Delivery Method Room Air Room Air Room Air Blood Pressure (90/60-120/80) 133/73 H 149/73 H 168/79 H Blood Pressure Mean (mm Hg) 93 98 108 Source Monitor Monitor Monitor Position Sitting Sitting Semi-Fowlers Blood Pressure Location Left Arm Left Arm Left Arm History Since Last Visit- (Skip if this is Patient's initial visit) Have you changed medications since your No No last visit? Any new allergies or adverse reactions No No Had a fall/change in ADL's that may No No increase risk of falls Signs or symptoms of abuse and/or No No neglect since last visit Have you been in the hospital since your No No last visit? Has dressing in place as prescribed Yes Yes Has compression in place as prescribed No Yes Has offloadiing in place as prescribed N/A Yes Experienced any changes in pain level or No No management Left Footwear No Footwear No Footwear Slipper Right Footwear No Footwear Slipper Slipper Other Footwear barefoot on the left Pain Scale: 0-10 Numeric Is Patient Pain Free? No Yes Yes lt foot -Description Throbbing -Alleviating Factors/Interventions Medication, Medicate when due WC - Nurse 1 - General Ulcer Measurement Start: 06/25/24 08:21 Freq: Status: Active Protocol: Activity Type Activity Date Activity User E-sign Co-sign Detail Recorded Client Recorded Date Recorded By Document 06/25/24 08:27 CP [id number] 06/25/24 08:38 CP Document 07/08/24 08:07 BMF [id number] 07/08/24 08:23 BMF Document 07/15/24 08:08 KW [id number] 07/15/24 08:26 KW 06/25/24 07/08/24 07/15/24 08:27 08:07 08:08 Wound Center Nurse 1 4 LT LAT FOOT -Combined with other wound No -Current Size (cm) - Length 9.6 9.5 9.5 -Current Size (cm) - Width 4.8 3.7 3.7 -Current Size (cm) - Depth 0.5 1 0.5 -Total Square Cm 46.08 35.15 35.15 -Date of Last Picture (Recall this 06/25/24 07/08/24 field) -Photo Taken Yes -Epithelialization Small 1-33% -Tunneling No Yes -Tunneling Position (O'clock) 12 -Tunneling Distance (cm) 2 -Undermining/Tunneling No -Circular Undermining No -Exudate Amt Medium Large Medium -Exudate Type Serosanguineous Serosanguineous Serosanguineous -Wound Margin Distinct, Distinct, Distinct, Outline Outline Outline Attached Attached Attached -Granulation Amt Medium (34-66%) Large (67-100%) Large (67-100%) -Granulation Quality Red Red Red -Slough/Fibrin Yes -Necrosis Amt Small (1-33%) Small (1-33%) Medium (34-66%) -Necrotic Tissue Type Eschar Adherent Slough Adherent Slough -Texture (Maxine-wound Skin Appearance) Assessed Assessed, Assessed Localized Edema -Moisture (Maxine-wound Skin Appearance) Assessed Assessed,Dry/ Assessed,Dry/ Scaly Scaly -Color (Maxine-wound Skin Appearance) Assessed Assessed, Assessed Erythema -Temperature (Maxine-wound Skin No Abnormality No Abnormality No Abnormality Appearance) (Pt Warm) (Pt Warm) (Pt Warm) -Tenderness on Palpation (Maxine-wound No No No Skin Appearance) -Ulcer Cleansing Soap and Water Soap and Water Soap and Water -Foul Odor after Cleansing No No No -Anesthetic Used 4% Lidocaine 4% Lidocaine 4% Lidocaine Solution Solution Solution WC - Nurse 2 - General Ulcer CM Notes Start: 06/25/24 08:21 Freq: Status: Active Protocol: Activity Type Activity Date Activity User E-sign Co-sign Detail Recorded Client Recorded Date Recorded By Document 06/25/24 08:46 AISHWARYA [id number] 06/25/24 08:53 Document 07/08/24 08:28 JF [id number] 07/08/24 08:31 Document 07/15/24 08:41 [id number] 07/15/24 08:42 06/25/24 07/08/24 07/15/24 08:46 08:28 08:41 Wound Center Nurse 2 4 LT LAT FOOT -Time 08:51 08:28 08:41 -Correct Patient Yes Yes Yes -Correct Side, Site, Position Yes Yes Yes -Correct Procedure Yes Yes Yes -Procedure Performed Yes Yes Yes -Type of Procedure Debridement Debridement Debridement -Clinical Debridement Bone Bone Bone -Tissue Removed Non-viable Non-viable Non-viable tissue tissue tissue -Post Debridement (cm) - Length 9.5 9.4 8.8 -Post Debridement (cm) - Width 4.7 4 3.6 -Post Debridement (cm) - Depth 0.5 0.5 1.5 -Total Square (Post) (cm) 44.65 37.6 31.68 -Area of Debridement (cm) - Length 9.5 9.4 8.8 -Area of Debridement (cm) - Width 4.7 4 3.6 -Total Square (Area) (cm) 44.65 37.6 31.68 -Tunneling No No No -Undermining/Tunneling No No No -Circular Undermining No No No -Wound/Ulcer Outcome Not Healed Not Healed Not Healed -Ulcer Cleansing Rinsed/ Rinsed/ Rinsed/ Irrigated with Irrigated with Irrigated with Saline Saline Saline -Foul Odor after Cleansing No No No -Bioengineered Tissue No No No -Bleeding Controlled with Pressure Pressure Pressure -Treatment Response Procedure Procedure Procedure Tolerated Well Tolerated Well Tolerated Well -Offloading No Yes No -Type of Offloading Surgical Shoe -Assistive Device(s) Wheelchair, Walker -Debridement - Bone, 1st 20sq cm Yes Yes Yes -Debridement, Bone, ea addt'l 20sq cm 2 1 1 or part thereof Pain Scale: 0-10 Numeric Is Patient Pain Free? Yes Yes Yes WC - Nurse 3 - General Ulcer D/C NN Start: 06/25/24 08:21 Freq: Status: Active Protocol: Activity Type Activity Date Activity User E-sign Co-sign Detail Recorded Client Recorded Date Recorded By Document 07/08/24 08:47 DL [id number] 07/08/24 08:50 DL Document 07/15/24 09:19 KW [id number] 07/15/24 09:19 KW 07/08/24 07/15/24 08:47 09:19 Wound Care Center Nurse 3 4 LT LAT FOOT -Ulcer Cleansing Soap and Water -Foul Odor after Cleansing No -Negative Pressure Wound Therapy Continue Continue -Setting (mmHg) 125 125 -Negative Pressure is Continuous Continuous -NPWT Application Charge NPWT & NPWT & Debridement (nc Debridement (nc ) ) Right -Compression Wrap Freddie Wrap Freddie Wrap Treatment Response Procedure Tolerated Well Pain Scale: 0-10 Numeric Is Patient Pain Free? Yes Yes WC - Visit Discharge Discharge Condition Stable Stable Ambulatory Status Ambulatory, Wheelchair Wheelchair Transportation ECF Trans Medication Reconcilliation completed & No provided to patient/care provider Clinical Summary of Care Provided Yes Notes: Dressing applied per Sue Cabrera today. Facility Type Intermediate Care Facility Orders Sent Yes Assessment/Plan Assessment/Plan (1) Non-pressure chronic ulcer of other part of left foot with bone involvement without evidence of necrosis: CODE(S): L97.526 - Non-pressure chronic ulcer of other part of left foot with bone involvement without evidence of necrosis PLAN: Patient was examined and evaluated. All findings were discussed with the patient. All questions were answered to the patient's satisfaction. Prior to removal of the black foam to the wound VAC that was present on the patient at the time of his visit showed evidence of green growth which is concerning for Pseudomonas infection. The patient will be placed on ciprofloxacin 750 mg twice daily for 2 weeks. He will continue his IV antibiotics per infectious disease. I did educate the patient that if there is concern for healing or infection over the next 4 to 6 weeks I would probably recommend transmetatarsal amputation as needed. Will continue local wound care at the wound care center weekly. Excisional debridement down to and including subcutaneous tissue, fascia, tendon and bone of the left foot with a number 7 mm dermal curette without incident. Predebridement measurement was 8.7 x 3.4 x 1.4 cm. Postdebridement measurement is 8.8 x 3.6 x 1.5 cm. Left lower extremities are clean and patted dry. Negative pressure wound VAC with white and black foam was applied to the left foot. Orders will be given for every other day wound VAC changes at the [facility] facility. Nursing orders were given to the patient for the nursing staff at the [facility] facility to wash his full-thickness wound with sterile water and soap and dry prior to putting on the wound VAC every other day. Continue strict blood sugar control. Follow-up at the wound care center with Dr. Barnett in 1 week. (2) Acute painful diabetic polyneuropathy: CODE(S): E11.42 - Type 2 diabetes mellitus with diabetic polyneuropathy (3) Other specified peripheral vascular diseases: CODE(S): I73.89 - Other specified peripheral vascular diseases
== END 2024-07-15 23:59 | disposition home or self-care (01) ==
LOC: WC 08:15
PROVIDERS: PCP Family Medicine; Referring Provider Podiatrist; Visit Provider Podiatrist Foot & Ankle Surgery
DX: E11.621 Type 2 diabetes mellitus with foot ulcer (principal); L97.526 Non-pressure chronic ulcer of other part of left foot with bone involvement without evidence of necrosis; E11.42 Type 2 diabetes mellitus with diabetic polyneuropathy; E11.65 Type 2 diabetes mellitus with hyperglycemia; E11.51 Type 2 diabetes mellitus with diabetic peripheral angiopathy without gangrene; Z79.4 Long term (current) use of insulin; I10 Essential (primary) hypertension; E78.00 Pure hypercholesterolemia, unspecified; E03.9 Hypothyroidism, unspecified; Z79.82 Long term (current) use of aspirin; Z79.02 Long term (current) use of antithrombotics/antiplatelets; Z79.84 Long term (current) use of oral hypoglycemic drugs; Z79.890 Hormone replacement therapy; Z79.899 Other long term (current) drug therapy; Z87.891 Personal history of nicotine dependence
CPT/HCPCS: 11044; 11047; 82962; 87070; 87075; 87077; 87186; 87205; 99214; G0463

== ENCOUNTER 2024-08-13 08:45 | Outpatient (RCR) | payer MEDICARE, SELFPAY ==
[2024-07-16 00:28] VITALS: BP 168/79; PULSE 90; RESP 18; TEMP 35.9; BMI 35.7
[2024-07-23 08:59] VITALS: BP 137/109; PULSE 101; RESP 18; TEMP 36.1; BMI 35.7
--- NOTE | 2024-07-23 11:23 | PN.PCM_ITS ---
History of Present Illness Date of Service: 07/15/24 Chief Complaint: right great toe ulcer healed History of Wound: Mr. Palacios is a 74-year-old diabetic male seen at the wound care center today for follow-up evaluation of status post fifth ray resection with wound VAC application. Patient currently residing in a custodial facility. He is doing well with dressing changes. He admits that he is feeling better. He is getting PICC line antibiotics through the PICC line in his left arm. Otherwise he denies any trauma. Denies constitutional symptoms. No other pedal complaints at this time. Progress of Wound: Mr. Palacios is a 74-year-old diabetic male presented wound care center today for further evaluation of a full-thickness wound to the left foot. He is status post fifth ray resection with wound VAC application done by an outside provider. He has been getting wound VAC changes as scheduled at the custodial facility. His blood sugar has been well-controlled. His last HbA1c was 7.5% while in the hospital. He is getting PICC line antibiotics managed by infectious disease. He denies any trauma. Denies constitutional symptoms. He does admit to some soreness of throat and has tested positive today for COVID. No other pedal complaints at this time. Subjective Subjective Mr. Palacios is a 74-year-old diabetic male presented with concern today follow-up evaluation of left foot full-thickness wound down to bone. Patient has been getting wound VAC changes by the nursing facility at his SNF. Patient states that they are washing his full-thickness wound to the left foot have every VAC change. He is taking his oral antibiotics ciprofloxacin 750 mg twice daily as scheduled. He is grateful for his care. Denies trauma. Denies constitutional symptoms. No other pedal complaints at this time. Objective Data Objective Data Vital Signs: Vital Signs Temp Pulse Resp BP O2 Del Method 96.9 F L 101 H 18 137/109 H Room Air 07/23/24 08:59 07/23/24 08:59 07/23/24 08:59 07/23/24 08:59 07/23/24 08:59 Oxygen Delivery Method Room Air Weight: 122.924 kg Body Mass Index (BMI) 35.7 Physical Exam Narrative Vascular: DP and PT pulses are faintly palpable to left extremity. CFT is brisk. Blanchable erythema and fourth digit to periwound to the left lower extremity. Skin temp great is warm to warm from proximal ankles to distal digits to left lower extremity. Nonpitting edema appreciated left lower extremity. Neurological: Light touch intact. Protective station is absent. Dermatological: Full-thickness ulceration to the left foot status post fifth ray resection. Full-thickness wound measures 9.3 x 3.0 x 1.5 cm. Evidence of granular tissue, exposed tendon and exposed cuboid bone. No drainage or malodor. Evidence of tunneling appreciated to the 10:00 location measuring 4.5 cm. Excisional debridement down to and including subcutaneous tissue, fascia, tendon and bone of the left foot with a number 7 mm dermal curette without incident. Predebridement measurement was 9.0 x 2.8 x 1.4 cm. Postdebridement measurement is 9.3 x 3.0 x 1.5 cm. Musculoskeletal: No pain on palpation to the full-thickness wound to the left f oot. No pain with calf pressure. Debridement Note Debridement Note Debridement Free Text: Excisional debridement down to and including subcutaneous tissue, fascia, tendon and bone of the left foot with a number 7 mm dermal curette without incident. Predebridement measurement was 9.0 x 2.8 x 1.4 cm. Postdebridement measurement is 9.3 x 3.0 x 1.5 cm. Post-Debridement Measurements and Additional Note: Post-Debridement Measurements/Treatment - Nurse 1 - General Ulcer Assessment Start: 07/23/24 08:56 Freq: Status: Active Protocol: .LOWEXClaudette Activity Type Activity Date Activity User E-sign Co-sign Detail Recorded Client Recorded Date Recorded By Document 07/23/24 08:59 [id number] 07/23/24 09:14 KW 07/23/24 08:59 - Today's Visit Information Type of service Follow-up Visit (Physician/SAWYER HELPER ) Arrival Mode Wheelchair Patient Identification Verified (Name & Yes ) Height and Weight Body Mass Index (BMI) 35.7 BMI Classification Obese Vital Signs Temperature (97.8 F-99.1 F) 96.9 F L Temperature Source Temporal Pulse Rate (60-100) 101 H Pulse Location Monitor Respiratory Rate (12-18) 18 Respiratory rate source Observation Oxygen Delivery Method Room Air Blood Pressure (90/60-120/80) 137/109 H Blood Pressure Mean (mm Hg) 118 Source Monitor Position Sitting Blood Pressure Location Left Forearm History Since Last Visit- (Skip if this is Patient's initial visit) Have you changed medications since your No last visit? Any new allergies or adverse reactions No Had a fall/change in ADL's that may No increase risk of falls Signs or symptoms of abuse and/or No neglect since last visit Have you been in the hospital since your No last visit? Has dressing in place as prescribed Yes Has compression in place as prescribed Yes Has offloadiing in place as prescribed Yes Experienced any changes in pain level or No management Left Footwear No Footwear Right Footwear No Footwear Pain Scale: 0-10 Numeric Is Patient Pain Free? Yes LANIE - Nurse 1 - General Ulcer Measurement Start: 07/23/24 08:56 Freq: Status: Active Protocol: Activity Type Activity Date Activity User E-sign Co-sign Detail Recorded Client Recorded Date Recorded By Document 07/23/24 08:59 ELINA [id number] 07/23/24 09:14 ELINA 07/23/24 08:59 Wound Center Nurse 1 4 LT LAT FOOT -Current Size (cm) - Length 9.2 -Current Size (cm) - Width 3.8 -Current Size (cm) - Depth 0.5 -Total Square Cm 34.96 -Date of Last Picture (Recall this 07/23/24 field) -Exudate Amt Medium -Exudate Type Serosanguineous -Wound Margin Distinct, Outline Attached -Granulation Amt Medium (34-66%) -Granulation Quality Red -Necrosis Amt Medium (34-66%) -Necrotic Tissue Type Adherent Slough -Texture (Maxine-wound Skin Appearance) Assessed,Callus -Moisture (Maxine-wound Skin Appearance) Assessed,Dry/ Scaly -Color (Maxine-wound Skin Appearance) Assessed -Temperature (Maxine-wound Skin No Abnormality Appearance) (Pt Warm) -Tenderness on Palpation (Maxine-wound No Skin Appearance) -Ulcer Cleansing Soap and Water -Foul Odor after Cleansing No -Anesthetic Used 4% Lidocaine Solution LANIE - Nurse 2 - General Ulcer CM Notes Start: 07/23/24 08:56 Freq: Status: Active Protocol: Activity Type Activity Date Activity User E-sign Co-sign Detail Recorded Client Recorded Date Recorded By Document 07/23/24 09:21 AISHWARYA [id number] 07/23/24 09:32 JF 07/23/24 09:21 Wound Center Nurse 2 -Time 09:21 -Correct Patient Yes -Correct Side, Site, Position Yes -Correct Procedure Yes -Procedure Performed Yes -Type of Procedure Debridement -Clinical Debridement Bone -Tissue Removed Non-viable tissue -Post Debridement (cm) - Length 9.3 -Post Debridement (cm) - Width 3.0 -Post Debridement (cm) - Depth 1.5 -Total Square (Post) (cm) 27.90 -Area of Debridement (cm) - Length 9.3 -Area of Debridement (cm) - Width 3.0 -Total Square (Area) (cm) 27.90 -Tunneling Yes -Tunneling Position (O'clock) 10 -Tunneling Distance (cm) 4.5 -Undermining/Tunneling No -Circular Undermining No -Wound/Ulcer Outcome Not Healed -Ulcer Cleansing Rinsed/ Irrigated with Saline -Foul Odor after Cleansing No -Bioengineered Tissue No -Bleeding Controlled with Pressure -Treatment Response Procedure Tolerated Well -Offloading No -Debridement - Bone, 1st 20sq cm Yes -Debridement, Bone, ea addt'l 20sq cm 1 or part thereof Pain Scale: 0-10 Numeric Is Patient Pain Free? Yes WC - Nurse 3 - General Ulcer D/C NN Start: 07/23/24 08:56 Freq: Status: Active Protocol: Activity Type Activity Date Activity User E-sign Co-sign Detail Recorded Client Recorded Date Recorded By Document 07/23/24 09:43 KW [id number] 07/23/24 09:44 KW Edit Result 07/23/24 09:43 KW (1) [id number] 07/23/24 10:05 RB (1) Right - Other => freddie 07/23/24 09:43 Wound Care Center Nurse 3 4 LT LAT FOOT -Ulcer Cleansing Rinsed/ Irrigated with Saline -Negative Pressure Wound Therapy Continue -Setting (mmHg) 125 -Negative Pressure is Continuous -NPWT Application Charge NPWT & Debridement (nc ) Right -Compression Wrap Freddie Wrap -Other freddie Pain Scale: 0-10 Numeric Is Patient Pain Free? Yes WC - Visit Discharge Discharge Condition Stable Ambulatory Status Wheelchair Medication Reconcilliation completed & No provided to patient/care provider Clinical Summary of Care Provided Yes Assessment/Plan Assessment/Plan (1) Non-pressure chronic ulcer of other part of left foot with bone involvement without evidence of necrosis: CODE(S): L97.526 - Non-pressure chronic ulcer of other part of left foot with bone involvement without evidence of necrosis PLAN: Patient was examined and evaluated. All findings were discussed with the patient. All questions were answered to the patient's satisfaction. Excisional debridement down to and including subcutaneous tissue, fascia, tendon and bone of the left foot with a number 7 mm dermal curette without incident. Predebridement measurement was 9.0 x 2.8 x 1.4 cm. Postdebridement measurement is 9.3 x 3.0 x 1.5 cm. There was also tunneling in the 10:00 location measuring 4.5 cm that was evacuated with rongeur and multiple flushes of normal saline. The left lower extremities are clean and patted dry. Negative pressure wound VAC was applied incorporating the tunneling wound with the full-thickness wound. Orders were given for every other day dressing changes. Patient will continue his oral antibiotic as prescribed. It was discussed with the patient that if the tunneling wound becomes an issue we will have to move forward with a transmetatarsal amputation as an outpatient which he is understanding of. Follow-up at the wound care center with Dr. Barnett in 1 week. (2) Acute painful diabetic polyneuropathy: CODE(S): E11.42 - Type 2 diabetes mellitus with diabetic polyneuropathy (3) Other specified peripheral vascular diseases: CODE(S): I73.89 - Other specified peripheral vascular diseases
--- NOTE | 2024-07-24 11:59 | WC ---
PHOTO 07/23/24 [facility]
[2024-07-30 08:39] VITALS: BP 136/73; PULSE 107; RESP 16; TEMP 35.6; BMI 35.7
--- NOTE | 2024-07-30 10:03 | PN.PCM_ITS ---
History of Present Illness Date of Service: 07/15/24 Chief Complaint: right great toe ulcer healed History of Wound: Mr. Palacios is a 74-year-old diabetic male seen at the wound care center today for follow-up evaluation of status post fifth ray resection with wound VAC application. Patient currently residing in a custodial facility. He is doing well with dressing changes. He admits that he is feeling better. He is getting PICC line antibiotics through the PICC line in his left arm. Otherwise he denies any trauma. Denies constitutional symptoms. No other pedal complaints at this time. Progress of Wound: Mr. Palacios is a 74-year-old diabetic male presented wound care center today for further evaluation of a full-thickness wound to the left foot. He is status post fifth ray resection with wound VAC application done by an outside provider. He has been getting wound VAC changes as scheduled at the custodial facility. His blood sugar has been well-controlled. His last HbA1c was 7.5% while in the hospital. He is getting PICC line antibiotics managed by infectious disease. He denies any trauma. Denies constitutional symptoms. He does admit to some soreness of throat and has tested positive today for COVID. No other pedal complaints at this time. Subjective Subjective Mr. Palacios is a 74-year-old diabetic male presented with concern today follow-up evaluation of left foot full-thickness wound down to bone. Patient has been getting wound VAC changes by the nursing facility at his SNF. Patient states that they are washing his full-thickness wound to the left foot have every VAC change. He is taken oral antibiotics as prescribed. He is doing well. He mitts the redness has improved. Denies trauma. Denies constitutional symptoms. Other pedal complaints at this time. Objective Data Objective Data Vital Signs: Vital Signs Temp Pulse Resp BP O2 Del Method 96.1 F L 107 H 16 136/73 H Room Air 07/30/24 08:39 07/30/24 08:39 07/30/24 08:39 07/30/24 08:39 07/30/24 08:39 Oxygen Delivery Method Room Air Weight: 122.924 kg Body Mass Index (BMI) 35.7 Physical Exam Narrative Vascular: DP and PT pulses are faintly palpable to left extremity. CFT is brisk. Blanchable erythema and fourth digit to periwound to the left lower extremity. Skin temp great is warm to warm from proximal ankles to distal digits to left lower extremity. Nonpitting edema appreciated left lower extremity. Neurological: Light touch intact. Protective station is absent. Dermatological: Full-thickness ulceration to the left foot status post fifth ray resection. Full-thickness wound measures 8.5 x 3.1 x 0.5 cm. Evidence of granular tissue, exposed tendon and exposed cuboid bone. No drainage or malodor. Evidence of tunneling appreciated to the 11:00 location measuring 3.1 cm Excisional debridement down to and including subcutaneous tissue, fascia, tendon and bone of the left foot with a number 7 mm dermal curette without incident. Predebridement measurement was 8.3 x 3.0 x 0.2 cm. Postdebridement measurement is 8.5 x 3.1 x 0.5 cm. Musculoskeletal: No pain on palpation to the full-thickness wound to the left foot. No pain with calf pressure. Debridement Note Debridement Note Debridement Free Text: Excisional debridement down to and including subcutaneous tissue, fascia, tendon and bone of the left foot with a number 7 mm dermal curette without incident. Predebridement measurement was 8.3 x 3.0 x 0.2 cm. Postdebridement measurement is 8.5 x 3.1 x 0.5 cm. Post-Debridement Measurements and Additional Note: Post-Debridement Measurements/Treatment - Nurse 1 - General Ulcer Assessment Start: 07/23/24 08:56 Freq: Status: Active Protocol: .LOWEXT Activity Type Activity Date Activity User E-sign Co-sign Detail Recorded Client Recorded Date Recorded By Document 07/23/24 08:59 KW [id number] 07/23/24 09:14 KW Document 07/30/24 08:39 KW [id number] 07/30/24 08:57 KW 07/23/24 07/30/24 08:59 08:39 - Today's Visit Information Type of service Follow-up Visit Follow-up Visit (Physician/CLINICAL ANALYST (Physician/CLINICAL ANALYST ) ) Arrival Mode Wheelchair Wheelchair Patient Identification Verified (Name & Yes Yes ) Finger Stick Blood Sugar(mg/dl) (if 122 indicated): Blood Sugar Stated by Patient Height and Weight Body Mass Index (BMI) 35.7 35.7 BMI Classification Obese Obese Vital Signs Temperature (97.8 F-99.1 F) 96.9 F L 96.1 F L Temperature Source Temporal Temporal Pulse Rate (60-100) 101 H 107 H Pulse Location Monitor Monitor Respiratory Rate (12-18) 18 16 Respiratory rate source Observation Observation Oxygen Delivery Method Room Air Room Air Blood Pressure (90/60-120/80) 137/109 H 136/73 H Blood Pressure Mean (mm Hg) 118 94 Source Monitor Monitor Position Sitting Sitting Blood Pressure Location Left Forearm Right Arm History Since Last Visit- (Skip if this is Patient's initial visit) Have you changed medications since your No No last visit? Any new allergies or adverse reactions No No Had a fall/change in ADL's that may No No increase risk of falls Signs or symptoms of abuse and/or No No neglect since last visit Have you been in the hospital since your No No last visit? Has dressing in place as prescribed Yes Yes Has compression in place as prescribed Yes Yes Has offloadiing in place as prescribed Yes Yes Experienced any changes in pain level or No No management Left Footwear No Footwear Slipper Right Footwear No Footwear Slipper Pain Scale: 0-10 Numeric Is Patient Pain Free? Yes Yes WC - Nurse 1 - General Ulcer Measurement Start: 07/23/24 08:56 Freq: Status: Active Protocol: Activity Type Activity Date Activity User E-sign Co-sign Detail Recorded Client Recorded Date Recorded By Document 07/23/24 08:59 KW [id number] 07/23/24 09:14 KW Document 07/30/24 08:39 KW [id number] 07/30/24 08:57 KW 07/23/24 07/30/24 08:59 08:39 Wound Center Nurse 1 4 LT LAT FOOT -Current Size (cm) - Length 9.2 9 -Current Size (cm) - Width 3.8 3.3 -Current Size (cm) - Depth 0.5 0.6 -Total Square Cm 34.96 29.7 -Date of Last Picture (Recall this 07/23/24 07/30/24 field) -Tunneling Yes -Tunneling Position (O'clock) 12 -Tunneling Distance (cm) 3.1 -Exudate Amt Medium Small -Exudate Type Serosanguineous Serosanguineous -Wound Margin Distinct, Distinct, Outline Outline Attached Attached -Granulation Amt Medium (34-66%) Large (67-100%) -Granulation Quality Red Red -Necrosis Amt Medium (34-66%) Small (1-33%) -Necrotic Tissue Type Adherent Slough Adherent Slough -Texture (Maxine-wound Skin Appearance) Assessed,Callus Assessed -Moisture (Maxine-wound Skin Appearance) Assessed,Dry/ Assessed Scaly -Color (Maxine-wound Skin Appearance) Assessed Assessed -Temperature (Maxine-wound Skin No Abnormality No Abnormality Appearance) (Pt Warm) (Pt Warm) -Tenderness on Palpation (Maxine-wound No No Skin Appearance) -Ulcer Cleansing Soap and Water Soap and Water -Foul Odor after Cleansing No No -Anesthetic Used 4% Lidocaine 4% Lidocaine Solution Solution WC - Nurse 2 - General Ulcer CM Notes Start: 07/23/24 08:56 Freq: Status: Active Protocol: Activity Type Activity Date Activity User E-sign Co-sign Detail Recorded Client Recorded Date Recorded By Document 07/23/24 09:21 [id number] 07/23/24 09:32 Document 07/30/24 09:05 [id number] 07/30/24 09:09 07/23/24 07/30/24 09:21 09:05 Wound Center Nurse 2 4 LT LAT FOOT -Time 09:21 09:05 -Correct Patient Yes Yes -Correct Side, Site, Position Yes Yes -Correct Procedure Yes Yes -Procedure Performed Yes Yes -Type of Procedure Debridement Debridement -Clinical Debridement Bone Bone -Tissue Removed Non-viable Non-viable tissue tissue -Post Debridement (cm) - Length 9.3 8.5 -Post Debridement (cm) - Width 3.0 3.1 -Post Debridement (cm) - Depth 1.5 0.5 -Total Square (Post) (cm) 27.90 26.35 -Area of Debridement (cm) - Length 9.3 8.5 -Area of Debridement (cm) - Width 3.0 3.1 -Total Square (Area) (cm) 27.90 26.35 -Tunneling Yes Yes -Tunneling Position (O'clock) 10 10 -Tunneling Distance (cm) 4.5 4.3 -Undermining/Tunneling No No -Circular Undermining No No -Wound/Ulcer Outcome Not Healed Not Healed -Ulcer Cleansing Rinsed/ Rinsed/ Irrigated with Irrigated with Saline Saline -Foul Odor after Cleansing No No -Bioengineered Tissue No No -Bleeding Controlled with Pressure Pressure -Treatment Response Procedure Procedure Tolerated Well Tolerated Well -Offloading No Yes -Type of Offloading Surgical Shoe -Assistive Device(s) Wheelchair -Debridement - Bone, 1st 20sq cm Yes Yes -Debridement, Bone, ea addt'l 20sq cm 1 1 or part thereof Pain Scale: 0-10 Numeric Is Patient Pain Free? Yes Yes - Nurse 3 - General Ulcer D/C NN Start: 07/23/24 08:56 Freq: Status: Active Protocol: Activity Type Activity Date Activity User E-sign Co-sign Detail Recorded Client Recorded Date Recorded By Document 07/23/24 09:43 KW [id number] 07/23/24 09:44 KW Edit Result 07/23/24 09:43 KW (1) [id number] 07/23/24 10:05 RB Document 07/30/24 09:33 GM [id number] 07/30/24 09:48 GM (1) Right - Other => freddie 07/23/24 07/30/24 09:43 09:33 Wound Care Center Nurse 3 4 LT LAT FOOT -Ulcer Cleansing Rinsed/ Rinsed/ Irrigated with Irrigated with Saline Saline -Foul Odor after Cleansing Yes -Negative Pressure Wound Therapy Continue Continue -Setting (mmHg) 125 -Negative Pressure is Continuous Continuous -NPWT Application Charge NPWT & NPWT </= 50 sq Debridement (nc cm ($) ) Left -Lotion applied to leg before No compression wrap -Compression Wrap Freddie Wrap Right -Compression Wrap Freddie Wrap -Other freddie Pain Scale: 0-10 Numeric Is Patient Pain Free? Yes Yes - Visit Discharge Discharge Condition Stable Stable Ambulatory Status Wheelchair Wheelchair Transportation Private Auto Medication Reconcilliation completed & No provided to patient/care provider Clinical Summary of Care Provided Yes Assessment/Plan Assessment/Plan (1) Non-pressure chronic ulcer of other part of left foot with bone involvement without evidence of necrosis: CODE(S): L97.526 - Non-pressure chronic ulcer of other part of left foot with bone involvement without evidence of necrosis PLAN: Patient was examined and evaluated. All findings were discussed with the patient. All questions were answered to the patient's satisfaction. Excisional debridement down to and including subcutaneous tissue, fascia, tendon and bone of the left foot with a number 7 mm dermal curette without incident. Predebridement measurement was 8.3 x 3.0 x 0.2 cm. Postdebridement measurement is 8.5 x 3.1 x 0.5 cm. There was also tunneling in the 11:00 location measuring 3.1 cm. With the exposed cuboid using a rongeur the bone was debrided down to bleeding cancellous bone without incident. Compression was applied. The wound VAC was applied to the left foot. Steam Shovelman recommendation and set to 125 mmHg. Patient will continue antibiotics orally and IV as written. Follow-up at the wound care center with Dr. Barnett in 1 week. (2) Acute painful diabetic polyneuropathy: CODE(S): E11.42 - Type 2 diabetes mellitus with diabetic polyneuropathy (3) Other specified peripheral vascular diseases: CODE(S): I73.89 - Other specified peripheral vascular diseases
--- NOTE | 2024-07-31 08:41 | WC ---
PHOTO 07/30/24 LEFT LATERAL FOOT
[2024-08-06 08:38] VITALS: BP 145/64; PULSE 106; RESP 16; TEMP 35.4; BMI 35.7
--- NOTE | 2024-08-06 09:04 | PN.PCM_ITS ---
History of Present Illness Date of Service: 07/15/24 Chief Complaint: right great toe ulcer healed History of Wound: Mr. Palacios is a 74-year-old diabetic male seen at the wound care center today for follow-up evaluation of status post fifth ray resection with wound VAC application. Patient currently residing in a halfway facility. He is doing well with dressing changes. He admits that he is feeling better. He is getting PICC line antibiotics through the PICC line in his left arm. Otherwise he denies any trauma. Denies constitutional symptoms. No other pedal complaints at this time. Progress of Wound: Mr. Palacios is a 74-year-old diabetic male presented wound care center today for further evaluation of a full-thickness wound to the left foot. He is status post fifth ray resection with wound VAC application done by an outside provider. He has been getting wound VAC changes as scheduled at the halfway facility. His blood sugar has been well-controlled. His last HbA1c was 7.5% while in the hospital. He is getting PICC line antibiotics managed by infectious disease. He denies any trauma. Denies constitutional symptoms. He does admit to some soreness of throat and has tested positive today for COVID. No other pedal complaints at this time. Subjective Subjective Mr. Palacios is a 74-year-old diabetic male presented with concern today follow-up evaluation of left foot full-thickness wound down to bone. Patient states that he had his PICC line removed and is wondering if he can be discharged from the halfway facility so he can be at home with home health care. He has been getting VAC changes at the SNF. Denies trauma. Denies constitutional symptoms. No other pedal complaints at this time. Objective Data Objective Data Vital Signs: Vital Signs Temp Pulse Resp BP O2 Del Method 95.7 F L 106 H 16 145/64 H Room Air 08/06/24 08:38 08/06/24 08:38 08/06/24 08:38 08/06/24 08:38 08/06/24 08:38 Oxygen Delivery Method Room Air Weight: 122.924 kg Body Mass Index (BMI) 35.7 Physical Exam Narrative Vascular: DP and PT pulses are faintly palpable to left extremity. CFT is brisk. No erythema. skin temp great is warm to warm from proximal ankles to distal digits to left lower extremity. Nonpitting edema appreciated left lower extremity. Neurological: Light touch intact. Protective station is absent. Dermatological: Full-thickness ulceration to the left foot status post fifth ray resection. Full-thickness wound measures 9.0 x 3.0 x 0.1 cm. Evidence of granular tissue, exposed tendon and exposed cuboid bone. No drainage or malodor. Evidence of tunneling appreciated to the 10:00 location measuring 3.5 cm Excisional debridement down to and including subcutaneous tissue, fascia, tendon and bone of the left foot with a number 7 mm dermal curette without incident. Predebridement measurement was 8.8 x 2.8 x 0.1 cm. Postdebridement measurement is 9.0 x 3.0 x 0.1 cm. Musculoskeletal: No pain on palpation to the full-thickness wound to the left foot. No pain with calf pressure. Debridement Note Debridement Note Debridement Free Text: Excisional debridement down to and including subcutaneous tissue, fascia, tendon and bone of the left foot with a number 7 mm dermal curette without incident. Predebridement measurement was 8.8 x 2.8 x 0.1 cm. Postdebridement measurement is 9.0 x 3.0 x 0.1 cm. Post-Debridement Measurements and Additional Note: Post-Debridement Measurements/Treatment - Nurse 1 - General Ulcer Assessment Start: 07/23/24 08:56 Freq: Status: Active Protocol: WC.[email or web address] Activity Type Activity Date Activity User E-sign Co-sign Detail Recorded Client Recorded Date Recorded By Document 07/23/24 08:59 KW [id number] 07/23/24 09:14 KW Document 07/30/24 08:39 KW [id number] 07/30/24 08:57 KW Document 08/06/24 08:38 KW [id number] 08/06/24 08:44 KW 07/23/24 07/30/24 08/06/24 08:59 08:39 08:38 - Today's Visit Information Type of service Follow-up Visit Follow-up Visit Follow-up Visit (Physician/INFORMATION SERVICES CONSULTANT (Physician/INFORMATION SERVICES CONSULTANT (Physician/INFORMATION SERVICES CONSULTANT ) ) ) Arrival Mode Wheelchair Wheelchair Wheelchair Patient Identification Verified (Name & Yes Yes Yes ) Finger Stick Blood Sugar(mg/dl) (if 122 indicated): Blood Sugar Stated by Patient Height and Weight Body Mass Index (BMI) 35.7 35.7 35.7 BMI Classification Obese Obese Obese Vital Signs Temperature (97.8 F-99.1 F) 96.9 F L 96.1 F L 95.7 F L Temperature Source Temporal Temporal Temporal Pulse Rate (60-100) 101 H 107 H 106 H Pulse Location Monitor Monitor Monitor Respiratory Rate (12-18) 18 16 16 Respiratory rate source Observation Observation Observation Oxygen Delivery Method Room Air Room Air Room Air Blood Pressure (90/60-120/80) 137/109 H 136/73 H 145/64 H Blood Pressure Mean (mm Hg) 118 94 91 Source Monitor Monitor Monitor Position Sitting Sitting Semi-Fowlers Blood Pressure Location Left Forearm Right Arm Left Arm History Since Last Visit- (Skip if this is Patient's initial visit) Have you changed medications since your No No No last visit? Any new allergies or adverse reactions No No No Had a fall/change in ADL's that may No No No increase risk of falls Signs or symptoms of abuse and/or No No No neglect since last visit Have you been in the hospital since your No No No last visit? Has dressing in place as prescribed Yes Yes Yes Has compression in place as prescribed Yes Yes Yes Has offloadiing in place as prescribed Yes Yes Yes Experienced any changes in pain level or No No Yes management Left Footwear No Footwear Slipper No Footwear Right Footwear No Footwear Slipper No Footwear Pain Scale: 0-10 Numeric Is Patient Pain Free? Yes Yes Yes WC - Nurse 1 - General Ulcer Measurement Start: 07/23/24 08:56 Freq: Status: Active Protocol: Activity Type Activity Date Activity User E-sign Co-sign Detail Recorded Client Recorded Date Recorded By Document 07/23/24 08:59 KW [id number] 07/23/24 09:14 KW Document 07/30/24 08:39 KW [id number] 07/30/24 08:57 KW Document 08/06/24 08:38 KW [id number] 08/06/24 08:44 KW 07/23/24 07/30/24 08/06/24 08:59 08:39 08:38 Wound Center Nurse 1 4 LT LAT FOOT -Current Size (cm) - Length 9.2 9 9 -Current Size (cm) - Width 3.8 3.3 3 -Current Size (cm) - Depth 0.5 0.6 0.4 -Total Square Cm 34.96 29.7 27 -Date of Last Picture (Recall this 07/23/24 07/30/24 08/06/24 field) -Epithelialization Small 1-33% -Tunneling Yes Yes -Tunneling Position (O'clock) 12 11 -Tunneling Distance (cm) 3.1 4 -Exudate Amt Medium Small Medium -Exudate Type Serosanguineous Serosanguineous Serosanguineous -Wound Margin Distinct, Distinct, Distinct, Outline Outline Outline Attached Attached Attached -Granulation Amt Medium (34-66%) Large (67-100%) Large (67-100%) -Granulation Quality Red Red Red -Necrosis Amt Medium (34-66%) Small (1-33%) -Necrotic Tissue Type Adherent Slough Adherent Slough -Structure Exposed Fascia,Muscle -Texture (Maxine-wound Skin Appearance) Assessed,Callus Assessed Assessed -Moisture (Maxine-wound Skin Appearance) Assessed,Dry/ Assessed Assessed Scaly -Color (Maxine-wound Skin Appearance) Assessed Assessed Assessed -Temperature (Maxine-wound Skin No Abnormality No Abnormality No Abnormality Appearance) (Pt Warm) (Pt Warm) (Pt Warm) -Tenderness on Palpation (Maxine-wound No No No Skin Appearance) -Ulcer Cleansing Soap and Water Soap and Water Soap and Water -Foul Odor after Cleansing No No No -Anesthetic Used 4% Lidocaine 4% Lidocaine 4% Lidocaine Solution Solution Solution WC - Nurse 2 - General Ulcer CM Notes Start: 07/23/24 08:56 Freq: Status: Active Protocol: Activity Type Activity Date Activity User E-sign Co-sign Detail Recorded Client Recorded Date Recorded By Document 07/23/24 09:21 [id number] 07/23/24 09:32 JF Document 07/30/24 09:05 JF [id number] 07/30/24 09:09 JF Document 08/06/24 08:54 DS [id number] 08/06/24 08:56 DS Edit Result 08/06/24 08:54 DS (1) [id number] 08/06/24 08:57 DS (1) 4 LT LAT FOOT - Post Debridement (cm) - Length 3.0 => 9.0 - Post Debridement (cm) - Width 9.0 => 3.0 - Area of Debridement (cm) - Length 3.0 => 9.0 - Area of Debridement (cm) - Width 9.0 => 3.0 - Debridement, Bone, ea addt'l 20sq cm 1 => or part thereof 07/23/24 07/30/24 08/06/24 09:21 09:05 08:54 Wound Center Nurse 2 4 LT LAT FOOT -Time 09:21 09:05 08:54 -Correct Patient Yes Yes Yes -Correct Side, Site, Position Yes Yes Yes -Correct Procedure Yes Yes Yes -Procedure Performed Yes Yes Yes -Type of Procedure Debridement Debridement Debridement -Clinical Debridement Bone Bone Bone -Tissue Removed Non-viable Non-viable tissue tissue -Post Debridement (cm) - Length 9.3 8.5 9.0 -Post Debridement (cm) - Width 3.0 3.1 3.0 -Post Debridement (cm) - Depth 1.5 0.5 0.1 -Total Square (Post) (cm) 27.90 26.35 27.00 -Area of Debridement (cm) - Length 9.3 8.5 9.0 -Area of Debridement (cm) - Width 3.0 3.1 3.0 -Total Square (Area) (cm) 27.90 26.35 27.00 -Tunneling Yes Yes Yes -Tunneling Position (O'clock) 10 10 10 -Tunneling Distance (cm) 4.5 4.3 3.5 -Undermining/Tunneling No No No -Circular Undermining No No No -Wound/Ulcer Outcome Not Healed Not Healed Not Healed -Ulcer Cleansing Rinsed/ Rinsed/ Rinsed/ Irrigated with Irrigated with Irrigated with Saline Saline Saline -Foul Odor after Cleansing No No No -Bioengineered Tissue No No No -Bleeding Controlled with Pressure Pressure Pressure -Treatment Response Procedure Procedure Procedure Tolerated Well Tolerated Well Tolerated Well -Offloading No Yes -Type of Offloading Surgical Shoe -Assistive Device(s) Wheelchair -Debridement - Bone, 1st 20sq cm Yes Yes Yes -Debridement, Bone, ea addt'l 20sq cm 1 1 or part thereof Pain Scale: 0-10 Numeric Is Patient Pain Free? Yes Yes Yes WC - Nurse 3 - General Ulcer D/C NN Start: 07/23/24 08:56 Freq: Status: Active Protocol: Activity Type Activity Date Activity User E-sign Co-sign Detail Recorded Client Recorded Date Recorded By Document 07/23/24 09:43 KW [id number] 07/23/24 09:44 KW Edit Result 07/23/24 09:43 KW (1) [id number] 07/23/24 10:05 RB Document 07/30/24 09:33 GM [id number] 07/30/24 09:48 GM (1) Right - Other => freddie 07/23/24 07/30/24 09:43 09:33 Wound Care Center Nurse 3 4 LT LAT FOOT -Ulcer Cleansing Rinsed/ Rinsed/ Irrigated with Irrigated with Saline Saline -Foul Odor after Cleansing Yes -Negative Pressure Wound Therapy Continue Continue -Setting (mmHg) 125 -Negative Pressure is Continuous Continuous -NPWT Application Charge NPWT & NPWT </= 50 sq Debridement (nc cm ($) ) Left -Lotion applied to leg before No compression wrap -Compression Wrap Freddie Wrap Right -Compression Wrap Freddie Wrap -Other freddie Pain Scale: 0-10 Numeric Is Patient Pain Free? Yes Yes WC - Visit Discharge Discharge Condition Stable Stable Ambulatory Status Wheelchair Wheelchair Transportation Private Auto Medication Reconcilliation completed & No provided to patient/care provider Clinical Summary of Care Provided Yes Assessment/Plan Assessment/Plan (1) Non-pressure chronic ulcer of other part of left foot with bone involvement without evidence of necrosis: CODE(S): L97.526 - Non-pressure chronic ulcer of other part of left foot with bone involvement without evidence of necrosis PLAN: Patient was examined and evaluated. All findings were discussed with the patient. All questions were answered to the patient's satisfaction. Excisional debridement down to and including subcutaneous tissue, fascia, tendon and bone of the left foot with a number 7 mm dermal curette without incident. Predebridement measurement was 8.8 x 2.8 x 0.1 cm. Postdebridement measurement is 9.0 x 3.0 x 0.1 cm. There was also tunneling in the 10:30 location measuring 3.5 cm. The wound VAC was applied to the left foot. Steam Powerplant Supervisor recommendation and set to 125 mmHg, with compression applied. Since the patient has had his IV PICC line removed and has completed his IV antibiotics I did tell the patient to discuss his discharge at the halfway facility with the social work. If he is successful getting discharged we will recommend home health care for wound VAC changes Mondays and Fridays and he will be evaluated every Sunday at the wound care center for treatment and VAC applications. Will begin authorization with the patient's insurance for skin graft substitute applications. Follow-up at the wound care center with Dr. Barnett in 1 week. (2) Acute painful diabetic polyneuropathy: CODE(S): E11.42 - Type 2 diabetes mellitus with diabetic polyneuropathy (3) Other specified peripheral vascular diseases: CODE(S): I73.89 - Other specified peripheral vascular diseases
--- NOTE | 2024-08-07 09:32 | WC ---
PHOTO 08/06/24 [place]
[2024-08-13 09:06] VITALS: BP 115/73; PULSE 100; RESP 18; TEMP 35.9; BMI 35.7
--- NOTE | 2024-08-13 10:09 | PCM.WC.PN ---
History of Present Illness Date of Service: 07/15/24 Chief Complaint: right great toe ulcer healed History of Wound: Mr. Palacios is a 74-year-old diabetic male seen at the wound care center today for follow-up evaluation of status post fifth ray resection with wound VAC application. Patient currently residing in a longterm facility. He is doing well with dressing changes. He admits that he is feeling better. He is getting PICC line antibiotics through the PICC line in his left arm. Otherwise he denies any trauma. Denies constitutional symptoms. No other pedal complaints at this time. Progress of Wound: Mr. Palacios is a 74-year-old diabetic male presented wound care center today for further evaluation of a full-thickness wound to the left foot. He is status post fifth ray resection with wound VAC application done by an outside provider. He has been getting wound VAC changes as scheduled at the longterm facility. His blood sugar has been well-controlled. His last HbA1c was 7.5% while in the hospital. He is getting PICC line antibiotics managed by infectious disease. He denies any trauma. Denies constitutional symptoms. He does admit to some soreness of throat and has tested positive today for COVID. No other pedal complaints at this time. Subjective Subjective Mr. Palacios is a 74-year-old diabetic male presented with concern today follow-up evaluation of left foot full-thickness wound down to bone. Patient states that he notices a new wound to the outside of the left toe. He is unsure how this happened. He has been getting wound VAC changes as scheduled. He admits to some new redness to the left foot. Denies trauma. Denies constitutional symptoms. Other pedal complaints at this time. Objective Data Objective Data Vital Signs: Vital Signs Temp Pulse Resp BP O2 Del Method 96.6 F L 100 18 115/73 Room Air 08/13/24 09:06 08/13/24 09:06 08/13/24 09:06 08/13/24 09:06 08/06/24 08:38 Oxygen Delivery Method Room Air Weight: 122.924 kg Body Mass Index (BMI) 35.7 Physical Exam Narrative Vascular: DP and PT pulses are faintly palpable to left extremity. CFT is brisk. No erythema. skin temp great is warm to warm from proximal ankles to distal digits to left lower extremity. Nonpitting edema appreciated left lower extremity. Neurological: Light touch intact. Protective station is absent. Dermatological: New full-thickness wound to the lateral aspect of the fourth digit. Wound base is fibrogranular nature. Blanchable erythema to the fourth digit. Fourth digit toe wound measures 0.5 x 0.5 x 0.1 cm. Full-thickness wound to the lateral left foot with exposed fourth metatarsal head. Positive probe to bone. Full-thickness wound to the lateral left foot measures 9.1 x 2.7 x 0.4 cm. Excisional debridement down to and including subcutaneous tissue of the left fourth digit full-thickness wound with a number 3 mm dermal curette without incident. Predebridement measurement was callus. Postdebridement measurement is 0.5 x 0.5 x 0.1 cm. Excisional debridement down to and including subcutaneous tissue, fascia, tendon and bone of the left foot with a number 7 mm dermal curette without incident. Predebridement measurement was 8.8 x 2.5 x 0.2 cm. Postdebridement measurement is 9.1 x 2.7 x 0.4 cm. Musculoskeletal: No pain on palpation to the full-thickness wound to the left foot. No pain with calf pressure. Debridement Note Debridement Note Debridement Free Text: Excisional debridement down to and including subcutaneous tissue of the left fourth digit full-thickness wound with a number 3 mm dermal curette without incident. Predebridement measurement was callus. Postdebridement measurement is 0.5 x 0.5 x 0.1 cm. Excisional debridement down to and including subcutaneous tissue, fascia, tendon and bone of the left foot with a number 7 mm dermal curette without incident. Predebridement measurement was 8.8 x 2.5 x 0.2 cm. Postdebridement measurement is 9.1 x 2.7 x 0.4 cm. Post-Debridement Measurements and Additional Note: Post-Debridement Measurements/Treatment - Nurse 1 - General Ulcer Assessment Start: 07/23/24 08:56 Freq: Status: Active Protocol: LANIE.LOWEXT Activity Type Activity Date Activity User E-sign Co-sign Detail Recorded Client Recorded Date Recorded By Document 07/23/24 08:59 KW [id number] 07/23/24 09:14 KW Document 07/30/24 08:39 KW [id number] 07/30/24 08:57 KW Document 08/06/24 08:38 KW [id number] 08/06/24 08:44 KW Document 08/13/24 09:06 RB [id number] 08/13/24 09:09 RB 07/23/24 07/30/24 08/06/24 08:59 08:39 08:38 - Today's Visit Information Type of service Follow-up Visit Follow-up Visit Follow-up Visit (Physician/OXYACETYLENE TORCH OPERATOR (Physician/OXYACETYLENE TORCH OPERATOR (Physician/OXYACETYLENE TORCH OPERATOR ) ) ) Arrival Mode Wheelchair Wheelchair Wheelchair Transfer Assistance Patient Identification Verified (Name & Yes Yes Yes ) Patient Requires Transmission-Based Precautions Finger Stick Blood Sugar(mg/dl) (if 122 indicated): Blood Sugar Stated by Patient Height and Weight Body Mass Index (BMI) 35.7 35.7 35.7 BMI Classification Obese Obese Obese Vital Signs Temperature (97.8 F-99.1 F) 96.9 F L 96.1 F L 95.7 F L Temperature Source Temporal Temporal Temporal Pulse Rate (60-100) 101 H 107 H 106 H Pulse Location Monitor Monitor Monitor Respiratory Rate (12-18) 18 16 16 Respiratory rate source Observation Observation Observation Oxygen Delivery Method Room Air Room Air Room Air Blood Pressure (90/60-120/80) 137/109 H 136/73 H 145/64 H Blood Pressure Mean (mm Hg) 118 94 91 Source Monitor Monitor Monitor Position Sitting Sitting Semi-Fowlers Blood Pressure Location Left Forearm Right Arm Left Arm History Since Last Visit- (Skip if this is Patient's initial visit) Have you changed medications since your No No No last visit? Any new allergies or adverse reactions No No No Had a fall/change in ADL's that may No No No increase risk of falls Signs or symptoms of abuse and/or No No No neglect since last visit Have you been in the hospital since your No No No last visit? Has dressing in place as prescribed Yes Yes Yes Has compression in place as prescribed Yes Yes Yes Has offloadiing in place as prescribed Yes Yes Yes Experienced any changes in pain level or No No Yes management Left Footwear No Footwear Slipper No Footwear Right Footwear No Footwear Slipper No Footwear Pain Scale: 0-10 Numeric Is Patient Pain Free? Yes Yes Yes 08/13/24 09:06 - Today's Visit Information Type of service Follow-up Visit (Physician/OXYACETYLENE TORCH OPERATOR ) Arrival Mode Ambulatory Transfer Assistance None Patient Identification Verified (Name & Yes ) Patient Requires Transmission-Based No Precautions Finger Stick Blood Sugar(mg/dl) (if indicated): Blood Sugar Height and Weight Body Mass Index (BMI) 35.7 BMI Classification Obese Vital Signs Temperature (97.8 F-99.1 F) 96.6 F L Temperature Source Temporal Pulse Rate (60-100) 100 Pulse Location Monitor Respiratory Rate (12-18) 18 Respiratory rate source Observation Oxygen Delivery Method Blood Pressure (90/60-120/80) 115/73 Blood Pressure Mean (mm Hg) 87 Source Monitor Position Semi-Fowlers Blood Pressure Location Left Arm History Since Last Visit- (Skip if this is Patient's initial visit) Have you changed medications since your No last visit? Any new allergies or adverse reactions No Had a fall/change in ADL's that may No increase risk of falls Signs or symptoms of abuse and/or No neglect since last visit Have you been in the hospital since your No last visit? Has dressing in place as prescribed Yes Has compression in place as prescribed No Has offloadiing in place as prescribed Yes Experienced any changes in pain level or No management Left Footwear Right Footwear Pain Scale: 0-10 Numeric Is Patient Pain Free? Yes WC - Nurse 1 - General Ulcer Measurement Start: 07/23/24 08:56 Freq: Status: Active Protocol: Activity Type Activity Date Activity User E-sign Co-sign Detail Recorded Client Recorded Date Recorded By Document 07/23/24 08:59 KW [id number] 07/23/24 09:14 KW Document 07/30/24 08:39 KW [id number] 07/30/24 08:57 KW Document 08/06/24 08:38 KW [id number] 08/06/24 08:44 KW Document 08/13/24 09:06 RB [id number] 08/13/24 09:09 RB 07/23/24 07/30/24 08/06/24 08:59 08:39 08:38 Wound Center Nurse 1 4 LT LAT FOOT -Combined with other wound -Current Size (cm) - Length 9.2 9 9 -Current Size (cm) - Width 3.8 3.3 3 -Current Size (cm) - Depth 0.5 0.6 0.4 -Total Square Cm 34.96 29.7 27 -Date of Last Picture (Recall this 07/23/24 07/30/24 08/06/24 field) -Photo Taken -Epithelialization Small 1-33% -Tunneling Yes Yes -Tunneling Position (O'clock) 12 11 -Tunneling Distance (cm) 3.1 4 -Undermining/Tunneling -Undermining/Tunneling Starts (O'clock ) -Undermining/Tunneling Ends (O'clock) -Maximum Distance (cm) -Circular Undermining -Exudate Amt Medium Small Medium -Exudate Type Serosanguineous Serosanguineous Serosanguineous -Wound Margin Distinct, Distinct, Distinct, Outline Outline Outline Attached Attached Attached -Granulation Amt Medium (34-66%) Large (67-100%) Large (67-100%) -Granulation Quality Red Red Red -Slough/Fibrin -Necrosis Amt Medium (34-66%) Small (1-33%) -Necrotic Tissue Type Adherent Slough Adherent Slough -Structure Exposed Fascia,Muscle -Texture (Maxnie-wound Skin Appearance) Assessed,Callus Assessed Assessed -Moisture (Maxine-wound Skin Appearance) Assessed,Dry/ Assessed Assessed Scaly -Color (Maxine-wound Skin Appearance) Assessed Assessed Assessed -Temperature (Maxine-wound Skin No Abnormality No Abnormality No Abnormality Appearance) (Pt Warm) (Pt Warm) (Pt Warm) -Tenderness on Palpation (Maxine-wound No No No Skin Appearance) -Ulcer Cleansing Soap and Water Soap and Water Soap and Water -Foul Odor after Cleansing No No No -Anesthetic Used 4% Lidocaine 4% Lidocaine 4% Lidocaine Solution Solution Solution Lower Limb Edema Present Left Calf (cm) Left Ankle (cm) 08/13/24 09:06 Wound Center Nurse 1 4 LT LAT FOOT -Combined with other wound No -Current Size (cm) - Length 8.8 -Current Size (cm) - Width 3 -Current Size (cm) - Depth 0.5 -Total Square Cm 26.4 -Date of Last Picture (Recall this field) -Photo Taken Yes -Epithelialization -Tunneling No -Tunneling Position (O'clock) -Tunneling Distance (cm) -Undermining/Tunneling Yes -Undermining/Tunneling Starts (O'clock 6 ) -Undermining/Tunneling Ends (O'clock) 6 -Maximum Distance (cm) 2.3 -Circular Undermining No -Exudate Amt Medium -Exudate Type Serosanguineous -Wound Margin Thickened & Rolled Under -Granulation Amt Large (67-100%) -Granulation Quality [place] -Slough/Fibrin Yes -Necrosis Amt Small (1-33%) -Necrotic Tissue Type Adherent Slough -Structure Exposed N/A -Texture (Maxine-wound Skin Appearance) Assessed -Moisture (Maxine-wound Skin Appearance) Assessed, Maceration -Color (Maxine-wound Skin Appearance) Assessed -Temperature (Maxine-wound Skin No Abnormality Appearance) (Pt Warm) -Tenderness on Palpation (Maxine-wound No Skin Appearance) -Ulcer Cleansing Wound Cleanser -Foul Odor after Cleansing Yes -Anesthetic Used 5% Lidocaine Gel Lower Limb Edema Present Yes Left Calf (cm) 41 Left Ankle (cm) 25.2 WC - Nurse 2 - General Ulcer CM Notes Start: 07/23/24 08:56 Freq: Status: Active Protocol: Activity Type Activity Date Activity User E-sign Co-sign Detail Recorded Client Recorded Date Recorded By Document 07/23/24 09:21 [id number] 07/23/24 09:32 JF Document 07/30/24 09:05 JF [id number] 07/30/24 09:09 JF Document 08/06/24 08:54 DS [id number] 08/06/24 08:56 DS Edit Result 08/06/24 08:54 DS (1) [id number] 08/06/24 08:57 DS Edit Result 08/06/24 08:54 DS (2) [id number] 08/07/24 10:36 DS Document 08/13/24 09:22 JF [id number] 08/13/24 09:29 JF (1) 4 LT LAT FOOT - Post Debridement (cm) - Length 3.0 => 9.0 - Post Debridement (cm) - Width 9.0 => 3.0 - Area of Debridement (cm) - Length 3.0 => 9.0 - Area of Debridement (cm) - Width 9.0 => 3.0 - Debridement, Bone, ea addt'l 20sq cm 1 => or part thereof (2) 4 LT LAT FOOT - Debridement, Bone, ea addt'l 20sq cm 1 => 1 or part thereof 07/23/24 07/30/24 08/06/24 09:21 09:05 08:54 Wound Center Nurse 2 5-left 4th toe -Time -Correct Patient -Correct Side, Site, Position -Correct Procedure -Procedure Performed -Type of Procedure -Clinical Debridement -Tissue Removed -Post Debridement (cm) - Length -Post Debridement (cm) - Width -Post Debridement (cm) - Depth -Total Square (Post) (cm) -Area of Debridement (cm) - Length -Area of Debridement (cm) - Width -Total Square (Area) (cm) -Tunneling -Undermining/Tunneling -Circular Undermining -Wound/Ulcer Outcome -Ulcer Cleansing -Foul Odor after Cleansing -Bioengineered Tissue -Bleeding Controlled with -Treatment Response -Offloading -Type of Offloading -Debridement - Subq, 1st 20sq cm 4 LT LAT FOOT -Time 09: 09:05 08:54 -Correct Patient Yes Yes Yes -Correct Side, Site, Position Yes Yes Yes -Correct Procedure Yes Yes Yes -Procedure Performed Yes Yes Yes -Type of Procedure Debridement Debridement Debridement -Clinical Debridement Bone Bone Bone -Tissue Removed Non-viable Non-viable tissue tissue -Post Debridement (cm) - Length 9.3 8.5 9.0 -Post Debridement (cm) - Width 3.0 3.1 3.0 -Post Debridement (cm) - Depth 1.5 0.5 0.1 -Total Square (Post) (cm) 27.90 26.35 27.00 -Area of Debridement (cm) - Length 9.3 8.5 9.0 -Area of Debridement (cm) - Width 3.0 3.1 3.0 -Total Square (Area) (cm) 27.90 26.35 27.00 -Tunneling Yes Yes Yes -Tunneling Position (O'clock) 10 10 10 -Tunneling Distance (cm) 4.5 4.3 3.5 -Undermining/Tunneling No No No -Circular Undermining No No No -Wound/Ulcer Outcome Not Healed Not Healed Not Healed -Ulcer Cleansing Rinsed/ Rinsed/ Rinsed/ Irrigated with Irrigated with Irrigated with Saline Saline Saline -Foul Odor after Cleansing No No No -Bioengineered Tissue No No No -Bleeding Controlled with Pressure Pressure Pressure -Treatment Response Procedure Procedure Procedure Tolerated Well Tolerated Well Tolerated Well -Offloading No Yes -Type of Offloading Surgical Shoe -Assistive Device(s) Wheelchair -Pressure Reduction -Debridement - Bone, 1st 20sq cm Yes Yes Yes -Debridement, Bone, ea addt'l 20sq cm 1 1 1 or part thereof Pain Scale: 0-10 Numeric Is Patient Pain Free? Yes Yes Yes 08/13/24 09:22 Wound Center Nurse 2 5-left 4th toe -Time 09:26 -Correct Patient Yes -Correct Side, Site, Position Yes -Correct Procedure Yes -Procedure Performed Yes -Type of Procedure Debridement -Clinical Debridement Subcutaneous -Tissue Removed Subcutaneous -Post Debridement (cm) - Length 0.5 -Post Debridement (cm) - Width 0.5 -Post Debridement (cm) - Depth 0.1 -Total Square (Post) (cm) 0.25 -Area of Debridement (cm) - Length 0.5 -Area of Debridement (cm) - Width 0.5 -Total Square (Area) (cm) 0.25 -Tunneling No -Undermining/Tunneling No -Circular Undermining No -Wound/Ulcer Outcome Not Healed -Ulcer Cleansing Rinsed/ Irrigated with Saline -Foul Odor after Cleansing No -Bioengineered Tissue No -Bleeding Controlled with Pressure -Treatment Response Procedure Tolerated Well -Offloading Yes -Type of Offloading Surgical Shoe -Debridement - Subq, 1st 20sq cm Yes 4 LT LAT FOOT -Time 09:22 -Correct Patient Yes -Correct Side, Site, Position Yes -Correct Procedure Yes -Procedure Performed Yes -Type of Procedure Debridement -Clinical Debridement Bone -Tissue Removed Non-viable tissue -Post Debridement (cm) - Length 9.1 -Post Debridement (cm) - Width 2.7 -Post Debridement (cm) - Depth 0.4 -Total Square (Post) (cm) 24.57 -Area of Debridement (cm) - Length 9.1 -Area of Debridement (cm) - Width 2.7 -Total Square (Area) (cm) 24.57 -Tunneling No -Tunneling Position (O'clock) -Tunneling Distance (cm) -Undermining/Tunneling No -Circular Undermining No -Wound/Ulcer Outcome Not Healed -Ulcer Cleansing Rinsed/ Irrigated with Saline -Foul Odor after Cleansing No -Bioengineered Tissue No -Bleeding Controlled with Pressure -Treatment Response Procedure Tolerated Well -Offloading Yes -Type of Offloading Surgical Shoe -Assistive Device(s) -Pressure Reduction Wheelchair cushion -Debridement - Bone, 1st 20sq cm Yes -Debridement, Bone, ea addt'l 20sq cm 1 or part thereof Pain Scale: 0-10 Numeric Is Patient Pain Free? Yes WC - Nurse 3 - General Ulcer D/C NN Start: 07/23/24 08:56 Freq: Status: Active Protocol: Activity Type Activity Date Activity User E-sign Co-sign Detail Recorded Client Recorded Date Recorded By Document 07/23/24 09:43 KW [id number] 07/23/24 09:44 KW Edit Result 07/23/24 09:43 KW (1) [id number] 07/23/24 10:05 RB Document 07/30/24 09:33 GM [id number] 07/30/24 09:48 GM Document 08/06/24 09:06 GM [id number] 08/06/24 09:07 GM Document 08/13/24 09:39 RB [id number] 08/13/24 09:41 RB (1) Right - Other => freddie 07/23/24 07/30/24 08/06/24 09:43 09:33 09:06 Wound Care Center Nurse 3 5-left 4th toe -Ulcer Cleansing -Other Dressing -Primary Dressing Covered/Secured with -Other Covering 4 LT LAT FOOT -Ulcer Cleansing Rinsed/ Rinsed/ Not Cleansed Irrigated with Irrigated with Saline Saline -Foul Odor after Cleansing Yes No -Negative Pressure Wound Therapy Continue Continue Continue -Setting (mmHg) 125 -Negative Pressure is Continuous Continuous Continuous -Other Dressing -Primary Dressing Covered/Secured with -Other Covering -NPWT Application Charge NPWT & NPWT </= 50 sq NPWT </= 50 sq Debridement (nc cm ($) cm ($) ) Left -Lotion applied to leg before No No compression wrap -Compression Wrap Freddie Wrap Freddie Wrap -Other Right -Compression Wrap Freddie Wrap -Other freddie Pain Scale: 0-10 Numeric Is Patient Pain Free? Yes Yes Yes WC - Visit Discharge Discharge Condition Stable Stable Stable Ambulatory Status Wheelchair Wheelchair Wheelchair Transportation Private Auto Private Auto Medication Reconcilliation completed & No provided to patient/care provider Clinical Summary of Care Provided Yes 08/13/24 09:39 Wound Care Center Nurse 3 5-left 4th toe -Ulcer Cleansing Rinsed/ Irrigated with Saline -Other Dressing betadine soaked gauze -Primary Dressing Covered/Secured with Dry Gauze,Dry Gauze & Roll Gauze,Secured with Tape -Other Covering ABD 4 LT LAT FOOT -Ulcer Cleansing Rinsed/ Irrigated with Saline -Foul Odor after Cleansing -Negative Pressure Wound Therapy -Setting (mmHg) -Negative Pressure is -Other Dressing betadine soaked gauze -Primary Dressing Covered/Secured with Dry Gauze,Dry Gauze & Roll Gauze,Secured with Tape -Other Covering ABD -NPWT Application Charge Left -Lotion applied to leg before compression wrap -Compression Wrap -Other freddie Right -Compression Wrap -Other Pain Scale: 0-10 Numeric Is Patient Pain Free? Yes WC - Visit Discharge Discharge Condition Stable Ambulatory Status Wheelchair Transportation [place] Medication Reconcilliation completed & No provided to patient/care provider Clinical Summary of Care Provided Yes Assessment/Plan Assessment/Plan (1) Non-pressure chronic ulcer of other part of left foot with bone involvement without evidence of necrosis: CODE(S): L97.526 - Non-pressure chronic ulcer of other part of left foot with bone involvement without evidence of necrosis PLAN: Patient was examined and evaluated. All findings were discussed with the patient. All questions were answered to the patient's satisfaction. Excisional debridement down to and including subcutaneous tissue of the left fourth digit full-thickness wound with a number 3 mm dermal curette without incident. Predebridement measurement was callus. Postdebridement measurement is 0.5 x 0.5 x 0.1 cm. Excisional debridement down to and including subcutaneous tissue, fascia, tendon and bone of the left foot with a number 7 mm dermal curette without incident. Predebridement measurement was 8.8 x 2.5 x 0.2 cm. Postdebridement measurement is 9.1 x 2.7 x 0.4 cm. Left lower extremity was wiped clean and patted dry. Culture was taken from the new full-thickness wound and depth of the existing full-thickness wound. The patient will be placed on Augmentin 875 twice daily until culture results return. We will stop with the wound VAC at this time, the patient will go on a wound VAC holiday. The wound will be dressed with Betadine soaked gauze to the tunneling location as well as over the wound, followed by dry sterile dressing and compression wrap. Patient will have daily dressing changes at the nursing facility. Plan for left foot x-rays. Will plan for outpatient surgery to remove the infected bone. Follow-up at the wound care center with Dr. Barnett in 1 week. (2) Acute painful diabetic polyneuropathy: CODE(S): E11.42 - Type 2 diabetes mellitus with diabetic polyneuropathy (3) Other specified peripheral vascular diseases: CODE(S): I73.89 - Other specified peripheral vascular diseases (4) Ulcer of left foot due to type 2 diabetes mellitus: CODE(S): E11.621 - Type 2 diabetes mellitus with foot ulcer; L97.529 - Non-pressure chronic ulcer of other part of left foot with unspecified severity
--- NOTE | 2024-08-13 13:44 | WC ---
PHOTO 08/13/24 LEFT FOOT
--- NOTE | 2024-08-13 13:47 | WC ---
PHOTO 08/13/24 LEFT FOOT
== END 2024-08-15 23:59 | disposition home or self-care (01) ==
LOC: WC 08:45
PROVIDERS: PCP Family Medicine; Referring Provider Podiatrist; Visit Provider Podiatrist Foot & Ankle Surgery
DX: E11.621 Type 2 diabetes mellitus with foot ulcer (principal); L97.526 Non-pressure chronic ulcer of other part of left foot with bone involvement without evidence of necrosis; Z79.4 Long term (current) use of insulin; Z79.02 Long term (current) use of antithrombotics/antiplatelets; Z79.82 Long term (current) use of aspirin; Z79.84 Long term (current) use of oral hypoglycemic drugs; Z79.890 Hormone replacement therapy; Z79.899 Other long term (current) drug therapy
CPT/HCPCS: 11042; 11044; 11047; 97605

== ENCOUNTER 2024-09-10 08:30 | Outpatient (RCR) | payer MEDICARE, SELFPAY ==
[2024-08-16 01:59] VITALS: BP 115/73; PULSE 100; RESP 18; TEMP 35.9; BMI 35.7
[2024-08-20 08:11] VITALS: BP 143/78; PULSE 102; RESP 16; TEMP 35.8; BMI 35.7
--- NOTE | 2024-08-20 09:14 | PN.PCM_ITS ---
History of Present Illness Date of Service: 08/20/24 Chief Complaint: Left foot full-thickness wound History of Wound: Mr. Palacios is a 74-year-old diabetic male seen at the wound care center today for follow-up evaluation of status post fifth ray resection with wound VAC application. Patient currently residing in a [place] [facility] facility. He is doing well with dressing changes. He admits that he is feeling better. He is getting PICC line antibiotics through the PICC line in his left arm. Otherwise he denies any trauma. Denies constitutional symptoms. No other pedal complaints at this time. Progress of Wound: Chronic wound left foot stable Subjective Subjective Mr. Palacios is a 74-year-old diabetic male presented wound care center today for follow-up evaluation of full-thickness wound to the left foot. He is currently take the antibiotic as prescribed. The erythema has improved. Cultures returned and show evidence of Pseudomonas and he will be started on 2 weeks of C ipro 750 milligrams twice daily for 2 weeks. This is more prophylactically treatment since the patient did grow bacteria. Clinically there is no sign of infection. Will begin skin graft substitute application today. Patient like to go home and have home health care treat him. Denies trauma. Denies constitutional symptoms. No other pedal complaints at this time. Objective Data Objective Data Vital Signs: Vital Signs Temp Pulse Resp BP O2 Del Method 96.5 F L 102 H 16 143/78 H Room Air 08/20/24 08:11 08/20/24 08:11 08/20/24 08:11 08/20/24 08:11 08/20/24 08:11 Oxygen Delivery Method Room Air Weight: 122.924 kg Body Mass Index (BMI) 35.7 Physical Exam Narrative Vascular: DP and PT pulses are faintly palpable to left extremity. CFT is brisk. No erythema. skin temp great is warm to warm from proximal ankles to distal digits to left lower extremity. Nonpitting edema appreciated left lower extremity. Neurological: Light touch intact. Protective station is absent. Dermatological: New full-thickness wound to the lateral aspect of the fourth digit, stable and measuring 0.1 x 0.1 x 0.1 cm. No erythema to the fourth digit. Full-thickness wound to the lateral left foot with exposed fourth metatarsal head, which now shows evidence of granular tissue over the metatarsal. Positive probe to bone. Full-thickness wound to the lateral left foot measures 8.7 x 2.4 x 0.1 cm. There is evidence of tunneling at the 10:00 direction measuring 3 cm. Excisional debridement down to and including subcutaneous tissue, fascia, tendon and bone of the left foot with a number 7 mm dermal curette without incident. Predebridement measurement was 8.5 x 2.3 x 0.1 cm. Postdebridement measurement is 8.7 x 2.4 x 0.1 cm. EpiFix mesh 4.0 x 4.5 cm was applied to the left full-thickness ulceration with 100% use. First application. The graft site was free and clear of any infection. The wound/skin graft substitute was dressed with nonadherent bandage secured in place with Steri-Strips followed by bolster dressing as well as a double layer Tubigrip. Musculoskeletal: No pain on palpation to the full-thickness wound to the left foot. No pain with calf pressure. Debridement Note Debridement Note Debridement Free Text: Excisional debridement down to and including subcutaneous tissue, fascia, tendon and bone of the left foot with a number 7 mm dermal curette without incident. Predebridement measurement was 8.5 x 2.3 x 0.1 cm. Postdebridement measurement is 8.7 x 2.4 x 0.1 cm. EpiFix mesh 4.0 x 4.5 cm was applied to the left full-thickness ulceration with 100% use. First application. The graft site was free and clear of any infection. The wound/skin graft substitute was dressed with nonadherent bandage secured in place with Steri-Strips followed by bolster dressing as well as a double layer Tubigrip. Post-Debridement Measurements and Additional Note: Post-Debridement Measurements/Treatment - Nurse 1 - General Ulcer Assessment Start: 08/20/24 08:11 Freq: Status: Active Protocol: FIDENCIO Activity Type Activity Date Activity User E-sign Co-sign Detail Recorded Client Recorded Date Recorded By Document 08/20/24 08:11 ELINA [id number] 08/20/24 08:16 KW 08/20/24 08:11 - Today's Visit Information Type of service Follow-up Visit (Physician/HEEL PAINTER ) Arrival Mode Wheelchair Patient Identification Verified (Name & Yes ) Height and Weight Body Mass Index (BMI) 35.7 BMI Classification Obese Vital Signs Temperature (97.8 F-99.1 F) 96.5 F L Temperature Source Temporal Pulse Rate (60-100) 102 H Pulse Location Monitor Respiratory Rate (12-18) 16 Respiratory rate source Observation Oxygen Delivery Method Room Air Blood Pressure (90/60-120/80) 143/78 H Blood Pressure Mean (mm Hg) 99 Source Monitor Position Semi-Fowlers Blood Pressure Location Left Arm History Since Last Visit- (Skip if this is Patient's initial visit) Have you changed medications since your No last visit? Any new allergies or adverse reactions No Had a fall/change in ADL's that may No increase risk of falls Signs or symptoms of abuse and/or No neglect since last visit Have you been in the hospital since your No last visit? Has dressing in place as prescribed Yes Has compression in place as prescribed Yes Has offloadiing in place as prescribed Yes Experienced any changes in pain level or No management Left Footwear Slipper Right Footwear No Footwear Pain Scale: 0-10 Numeric Is Patient Pain Free? Yes WC - Nurse 1 - General Ulcer Measurement Start: 08/20/24 08:11 Freq: Status: Active Protocol: Activity Type Activity Date Activity User E-sign Co-sign Detail Recorded Client Recorded Date Recorded By Document 08/20/24 08:11 KW [id number] 08/20/24 08:16 KW 08/20/24 08:11 Wound Center Nurse 1 5-left 4th toe -Current Size (cm) - Length 0.1 -Current Size (cm) - Width 0.1 -Current Size (cm) - Depth 0.1 -Total Square Cm 0.01 -Date of Last Picture (Recall this 08/20/24 field) -Exudate Amt None Present -Wound Margin Distinct, Outline Attached -Granulation Amt Large (67-100%) -Granulation Quality Red -Necrosis Amt Small (1-33%) -Necrotic Tissue Type Adherent Slough -Texture (Maxine-wound Skin Appearance) Assessed -Moisture (Maxine-wound Skin Appearance) Assessed -Color (Maxine-wound Skin Appearance) Assessed -Temperature (Maxine-wound Skin No Abnormality Appearance) (Pt Warm) -Tenderness on Palpation (Maxine-wound No Skin Appearance) -Ulcer Cleansing Soap and Water -Foul Odor after Cleansing No -Anesthetic Used 4% Lidocaine Solution 4 LT LAT FOOT -Current Size (cm) - Length 8.9 -Current Size (cm) - Width 2.4 -Current Size (cm) - Depth 0.2 -Total Square Cm 21.36 -Date of Last Picture (Recall this 08/20/24 field) -Epithelialization Small 1-33% -Tunneling Yes -Tunneling Position (O'clock) 12 -Tunneling Distance (cm) 3 -Exudate Amt Medium -Exudate Type Serosanguineous -Wound Margin Thickened & Rolled Under -Granulation Amt Large (67-100%) -Granulation Quality Red -Necrosis Amt Small (1-33%) -Necrotic Tissue Type Adherent Slough -Texture (Maxine-wound Skin Appearance) Assessed -Moisture (Maxine-wound Skin Appearance) Assessed -Color (Maxine-wound Skin Appearance) Assessed -Temperature (Maxine-wound Skin No Abnormality Appearance) (Pt Warm) -Tenderness on Palpation (Maxine-wound No Skin Appearance) -Ulcer Cleansing Soap and Water -Foul Odor after Cleansing No -Anesthetic Used 4% Lidocaine Solution WC - Nurse 2 - General Ulcer CM Notes Start: 08/20/24 08:11 Freq: Status: Active Protocol: Activity Type Activity Date Activity User E-sign Co-sign Detail Recorded Client Recorded Date Recorded By Document 08/20/24 08:30 [email or web address] [id number] 08/20/24 08:39 AISHWARYA 08/20/24 08:30 Wound Center Nurse 2 5-left 4th toe -Correct Patient No -Correct Side, Site, Position No -Correct Procedure No -Procedure Performed No -Post Debridement (cm) - Length 0.1 -Post Debridement (cm) - Width 0.1 -Post Debridement (cm) - Depth 0.1 -Total Square (Post) (cm) 0.01 -Area of Debridement (cm) - Length 0.1 -Area of Debridement (cm) - Width 0.1 -Total Square (Area) (cm) 0.01 -Wound/Ulcer Outcome Not Healed 4 LT LAT FOOT -Time 08:30 -Correct Patient Yes -Correct Side, Site, Position Yes -Correct Procedure Yes -Procedure Performed Yes -Type of Procedure Debridement -Clinical Debridement Bone -Tissue Removed Non-viable tissue -Post Debridement (cm) - Length 8.7 -Post Debridement (cm) - Width 2.4 -Post Debridement (cm) - Depth 0.1 -Total Square (Post) (cm) 20.88 -Area of Debridement (cm) - Length 8.7 -Area of Debridement (cm) - Width 2.4 -Total Square (Area) (cm) 20.88 -Tunneling Yes -Tunneling Position (O'clock) 10 -Tunneling Distance (cm) 3 -Undermining/Tunneling No -Circular Undermining No -Wound/Ulcer Outcome Not Healed -Ulcer Cleansing Rinsed/ Irrigated with Saline -Foul Odor after Cleansing No -Bioengineered Tissue Yes -Type of Bioengineered Tissue Epifix Mesh -Expiration Date 02/13/29 -Product Lot Number [id number] -Percent Used 100 -Lot number of Saline Used [id number] -Bleeding Controlled with Pressure -Treatment Response Procedure Tolerated Well -Offloading Yes -Type of Offloading Surgical Shoe -Debridement - Bone, 1st 20sq cm Yes -Apply Skin Sub - 1st 25 sq cm - Feet 1 -Epifix Mesh (per sq cm) 11 Pain Scale: 0-10 Numeric Is Patient Pain Free? Yes - Nurse 3 - General Ulcer D/C NN Start: 08/20/24 08:11 Freq: Status: Active Protocol: Activity Type Activity Date Activity User E-sign Co-sign Detail Recorded Client Recorded Date Recorded By Document 08/20/24 08:56 KW [id number] 08/20/24 08:57 KW 08/20/24 08:56 Wound Care Center Nurse 3 4 LT LAT FOOT -Other Dressing packed tunnel with betadine gauze -Primary Dressing Covered/Secured with Dry Gauze & Roll Gauze, Secured with Tape Left -Compression Wrap Freddie Wrap -Other 2 Pain Scale: 0-10 Numeric Is Patient Pain Free? Yes - Visit Discharge Discharge Condition Stable Ambulatory Status Wheelchair Medication Reconcilliation completed & No provided to patient/care provider Clinical Summary of Care Provided Yes Assessment/Plan Assessment/Plan (1) Non-pressure chronic ulcer of other part of left foot with bone involvement without evidence of necrosis: CODE(S): L97.526 - Non-pressure chronic ulcer of other part of left foot with bone involvement without evidence of necrosis PLAN: Patient was examined and evaluated. All findings were discussed with the patient. All questions were answered to the patient's satisfaction. Excisional debridement down to and including subcutaneous tissue, fascia, tendon and bone of the left foot with a number 7 mm dermal curette without incident. Predebridement measurement was 8.5 x 2.3 x 0.1 cm. Postdebridement measurement is 8.7 x 2.4 x 0.1 cm. The left lower extremities were cleaned and patted dry. EpiFix mesh 4.0 x 4.5 cm was applied to the left full-thickness ulceration with 100% use. First application. The graft site was free and clear of any infection. The wound/skin graft substitute was dressed with nonadherent bandage secured in place with Steri-Strips followed by bolster dressing as well as a double layer Tubigrip. The patient will be placed on ciprofloxacin 750 mg twice daily for 2 weeks as prophylaxis due to bacterial growth from culture approximately 1 week ago. The patient shows no clinical sign of infection. He will continue the Augmentin that was prescribed last week. Order was given to clear the patient for discharge from a wound/podiatric standpoint. Follow-up at the wound care center with Dr. Barnett in 1 week. (2) Ulcer of left foot due to type 2 diabetes mellitus: CODE(S): E11.621 - Type 2 diabetes mellitus with foot ulcer; L97.529 - Non-pressure chronic ulcer of other part of left foot with unspecified severity (3) Other specified peripheral vascular diseases: CODE(S): I73.89 - Other specified peripheral vascular diseases
--- NOTE | 2024-08-21 09:32 | WC ---
PHOTO 08/20/24 LEFT FOOT
[2024-08-27 09:08] VITALS: BP 140/73; PULSE 101; RESP 18; TEMP 36.2; BMI 35.7
--- NOTE | 2024-08-27 12:27 | PN.PCM_ITS ---
History of Present Illness Date of Service: 08/27/24 Chief Complaint: Left foot full-thickness wound History of Wound: Mr. Palacios is a 74-year-old diabetic male seen at the wound care center today for follow-up evaluation of status post fifth ray resection with wound VAC application. Patient currently residing in a group home facility. He is doing well with dressing changes. He admits that he is feeling better. He is getting PICC line antibiotics through the PICC line in his left arm. Otherwise he denies any trauma. Denies constitutional symptoms. No other pedal complaints at this time. Progress of Wound: Chronic wound left foot stable Subjective Subjective Mr. Palacios is a 74-year-old male presenting to wound care center today for follow-up evaluation of full-thickness wound to the left foot. He has left his graft dressing clean dry and intact. He is getting dressing changes with packing to the tunneling wound to the left foot. He is doing well. Denies any pain. Blood sugars well-controlled. Denies trauma. Denies constitutional symptoms. Other pedal complaints at this time. Objective Data Objective Data Vital Signs: Vital Signs Temp Pulse Resp BP O2 Del Method 97.2 F L 101 H 18 140/73 H Room Air 08/27/24 09:08 08/27/24 09:08 08/27/24 09:08 08/27/24 09:08 08/20/24 08:11 Oxygen Delivery Method Room Air Weight: 122.924 kg Body Mass Index (BMI) 35.7 Physical Exam Narrative Vascular: DP and PT pulses are faintly palpable to left extremity. CFT is brisk. No erythema. skin temp great is warm to warm from proximal ankles to distal digits to left lower extremity. Nonpitting edema appreciated left lower extremity. Neurological: Light touch intact. Protective station is absent. Dermatological: Full-thickness wound to the lateral left foot secondary to amputation measuring 8.9 x 2.4 x 0.1 cm. Wound base is granular. No drainage or sign of infection. Evidence of 10:00 tunneling measuring 3.4 cm. No malodor. No probe to bone. Excisional debridement down to and including subcutaneous tissue, fascia, tendon and bone of the left foot with a number 7 mm dermal curette without incident. Predebridement measurement was 8.6 x 2.0 x 0.1 cm. Postdebridement measurement is 8.9 x 2.4 x 0.1 cm. EpiFix mesh 4.0 x 4.5 cm was applied to the left full-thickness ulceration with 100% use. Second application. The graft site was free and clear of any infection. The wound/skin graft substitute was dressed with nonadherent bandage secured in place with Steri-Strips followed by bolster dressing as well as a double layer Tubigrip. Musculoskeletal: No pain on palpation to the full-thickness wound to the left foot. No pain with calf pressure. Debridement Note Debridement Note Debridement Free Text: Excisional debridement down to and including subcutaneous tissue, fascia, tendon and bone of the left foot with a number 7 mm dermal c urette without incident. Predebridement measurement was 8.6 x 2.0 x 0.1 cm. Postdebridement measurement is 8.9 x 2.4 x 0.1 cm. EpiFix mesh 4.0 x 4.5 cm was applied to the left full-thickness ulceration with 100% use. Second application. The graft site was free and clear of any infection. The wound/skin graft substitute was dressed with nonadherent bandage secured in place with Steri-Strips followed by bolster dressing as well as a double layer Tubigrip. Post-Debridement Measurements and Additional Note: Post-Debridement Measurements/Treatment - Nurse 1 - General Ulcer Assessment Start: 08/20/24 08:11 Freq: Status: Active Protocol: WC.LOWEXT Activity Type Activity Date Activity User E-sign Co-sign Detail Recorded Client Recorded Date Recorded By Document 08/20/24 08:11 KW [id number] 08/20/24 08:16 KW Document 08/27/24 09:08 DL [id number] 08/27/24 09:20 DL 08/20/24 08/27/24 08:11 09:08 - Today's Visit Information Type of service Follow-up Visit Follow-up Visit (Physician/PHYSICAL SCIENCE TECHNICIAN (Physician/PHYSICAL SCIENCE TECHNICIAN ) ) Arrival Mode Wheelchair Ambulatory, Wheelchair Patient Identification Verified (Name & Yes Yes ) Patient Requires Transmission-Based No Precautions Finger Stick Blood Sugar(mg/dl) (if 140 indicated): Blood Sugar Stated by Patient Height and Weight Body Mass Index (BMI) 35.7 35.7 BMI Classification Obese Obese Vital Signs Temperature (97.8 F-99.1 F) 96.5 F L 97.2 F L Temperature Source Temporal Temporal Pulse Rate (60-100) 102 H 101 H Pulse Location Monitor Monitor Respiratory Rate (12-18) 16 18 Respiratory rate source Observation Observation Oxygen Delivery Method Room Air Blood Pressure (90/60-120/80) 143/78 H 140/73 H Blood Pressure Mean (mm Hg) 99 95 Source Monitor Monitor Position Semi-Fowlers Blood Pressure Location Left Arm History Since Last Visit- (Skip if this is Patient's initial visit) Have you changed medications since your No No last visit? Any new allergies or adverse reactions No No Had a fall/change in ADL's that may No No increase risk of falls Signs or symptoms of abuse and/or No No neglect since last visit Have you been in the hospital since your No No last visit? Has dressing in place as prescribed Yes Yes Has compression in place as prescribed Yes Yes Has offloadiing in place as prescribed Yes Yes Experienced any changes in pain level or No No management Left Footwear Slipper No Footwear Right Footwear No Footwear Pain Scale: 0-10 Numeric Is Patient Pain Free? Yes Yes WC - Nurse 1 - General Ulcer Measurement Start: 08/20/24 08:11 Freq: Status: Active Protocol: Activity Type Activity Date Activity User E-sign Co-sign Detail Recorded Client Recorded Date Recorded By Document 08/20/24 08:11 KW [id number] 08/20/24 08:16 KW Document 08/27/24 09:08 DL [id number] 08/27/24 09:20 DL 08/20/24 08/27/24 08:11 09:08 Wound Center Nurse 1 5-left 4th toe -Current Size (cm) - Length 0.1 0.1 -Current Size (cm) - Width 0.1 0.1 -Current Size (cm) - Depth 0.1 0.1 -Total Square Cm 0.01 0.01 -Date of Last Picture (Recall this 08/20/24 field) -Photo Taken Yes -Classification - Thickness Full Thickness without Exposed Support Structure -Exudate Amt None Present None Present -Exudate Type Serosanguineous -Wound Margin Distinct, Thickened Outline Attached -Granulation Amt Large (67-100%) None Present (0 %) -Granulation Quality Red Red -Necrosis Amt Small (1-33%) Small (1-33%) -Necrotic Tissue Type Adherent Slough Eschar -Structure Exposed N/A -Texture (Maxine-wound Skin Appearance) Assessed Scarring -Moisture (Maxine-wound Skin Appearance) Assessed Dry/Scaly -Color (Maxine-wound Skin Appearance) Assessed Hemosiderin Staining -Temperature (Maxine-wound Skin No Abnormality No Abnormality Appearance) (Pt Warm) (Pt Warm) -Tenderness on Palpation (Maxine-wound No No Skin Appearance) -Ulcer Cleansing Soap and Water Soap and Water -Foul Odor after Cleansing No No -Anesthetic Used 4% Lidocaine 5% Lidocaine Solution Gel 4 LT LAT FOOT -Current Size (cm) - Length 8.9 9 -Current Size (cm) - Width 2.4 2 -Current Size (cm) - Depth 0.2 1.1 -Total Square Cm 21.36 18 -Date of Last Picture (Recall this 08/20/24 field) -Photo Taken Yes -Epithelialization Small 1-33% -Tunneling Yes -Tunneling Position (O'clock) 12 7 -Tunneling Distance (cm) 3 2.7 -Exudate Amt Medium Medium -Exudate Type Serosanguineous Serosanguineous -Wound Margin Thickened & Distinct, Rolled Under Outline Attached -Granulation Amt Large (67-100%) Large (67-100%) -Granulation Quality Red Red -Necrosis Amt Small (1-33%) Small (1-33%) -Necrotic Tissue Type Adherent Slough Adherent Slough -Structure Exposed N/A -Texture (Maxine-wound Skin Appearance) Assessed Scarring -Moisture (Maxine-wound Skin Appearance) Assessed Dry/Scaly -Color (Maxine-wound Skin Appearance) Assessed Hemosiderin Staining -Temperature (Maxine-wound Skin No Abnormality No Abnormality Appearance) (Pt Warm) (Pt Warm) -Tenderness on Palpation (Maxine-wound No No Skin Appearance) -Ulcer Cleansing Soap and Water Soap and Water -Foul Odor after Cleansing No No -Anesthetic Used 4% Lidocaine 5% Lidocaine Solution Gel Left Calf (cm) 39.5 Left Ankle (cm) 25 WC - Nurse 2 - General Ulcer CM Notes Start: 08/20/24 08:11 Freq: Status: Active Protocol: Activity Type Activity Date Activity User E-sign Co-sign Detail Recorded Client Recorded Date Recorded By Document 08/20/24 08:30 JF [id number] 08/20/24 08:39 JF Edit Result 08/20/24 08:30 JF (1) [id number] 08/26/24 14:30 JF Document 08/27/24 09:33 BMF [id number] 08/27/24 09:41 BMF (1) 4 LT LAT FOOT - Debridement - Bone, 1st 20sq cm Yes => No 08/20/24 08/27/24 08:30 09:33 Wound Center Nurse 2 5-left 4th toe -Time 09:34 -Correct Patient No -Correct Side, Site, Position No -Correct Procedure No -Procedure Performed No -Clinical Debridement Muscle / Fascia -Tissue Removed Muscle,Fascia -Post Debridement (cm) - Length 0.1 0.1 -Post Debridement (cm) - Width 0.1 0.1 -Post Debridement (cm) - Depth 0.1 0.1 -Total Square (Post) (cm) 0.01 0.01 -Area of Debridement (cm) - Length 0.1 0.1 -Area of Debridement (cm) - Width 0.1 0.1 -Total Square (Area) (cm) 0.01 0.01 -Wound/Ulcer Outcome Not Healed Not Healed -Bleeding Controlled with NA -Debridement - Muscle / Fascia, 1st No 20sq cm 4 LT LAT FOOT -Time 08:30 09:34 -Correct Patient Yes Yes -Correct Side, Site, Position Yes Yes -Correct Procedure Yes Yes -Procedure Performed Yes Yes -Type of Procedure Debridement Debridement -Clinical Debridement Bone Subcutaneous -Tissue Removed Non-viable Subcutaneous tissue -Post Debridement (cm) - Length 8.7 8.9 -Post Debridement (cm) - Width 2.4 2.4 -Post Debridement (cm) - Depth 0.1 0.1 -Total Square (Post) (cm) 20.88 21.36 -Area of Debridement (cm) - Length 8.7 8.9 -Area of Debridement (cm) - Width 2.4 2.4 -Total Square (Area) (cm) 20.88 21.36 -Tunneling Yes Yes -Tunneling Position (O'clock) 10 10 -Tunneling Distance (cm) 3 3.4 -Undermining/Tunneling No No -Circular Undermining No No -Wound/Ulcer Outcome Not Healed Not Healed -Ulcer Cleansing Rinsed/ Rinsed/ Irrigated with Irrigated with Saline Saline -Foul Odor after Cleansing No No -Bioengineered Tissue Yes Yes -Type of Bioengineered Tissue Epifix Mesh Epifix Mesh -Expiration Date 02/13/29 -Product Lot Number [id number] -Percent Used 100 -Lot number of Saline Used [id number] -Bleeding Controlled with Pressure Pressure -Treatment Response Procedure Procedure Tolerated Well Tolerated Well -Offloading Yes -Type of Offloading Surgical Shoe -Debridement - Subq, 1st 20sq cm No -Debridement - Bone, 1st 20sq cm No -Apply Skin Sub - 1st 25 sq cm - Feet 1 1 -Epifix Mesh (per sq cm) 11 11 Pain Scale: 0-10 Numeric Is Patient Pain Free? Yes Yes - Nurse 3 - General Ulcer D/C NN Start: 08/20/24 08:11 Freq: Status: Active Protocol: Activity Type Activity Date Activity User E-sign Co-sign Detail Recorded Client Recorded Date Recorded By Document 08/20/24 08:56 [id number] 08/20/24 08:57 KW Document 08/27/24 09:57 [id number] 08/27/24 09:58 KW 08/20/24 08/27/24 08:56 09:57 Wound Care Center Nurse 3 5-left 4th toe -Other Dressing betadine soaked gauze packed -Primary Dressing Covered/Secured with Dry Gauze 4 LT LAT FOOT -Other Dressing packed tunnel with betadine gauze -Primary Dressing Covered/Secured with Dry Gauze & Dry Gauze & Roll Gauze, Roll Gauze, Secured with Secured with Tape Tape Left -Compression Wrap Freddie Wrap Freddie Wrap -Other 2 Pain Scale: 0-10 Numeric Is Patient Pain Free? Yes Yes - Visit Discharge Discharge Condition Stable Stable Ambulatory Status Wheelchair Wheelchair Medication Reconcilliation completed & No No provided to patient/care provider Clinical Summary of Care Provided Yes Yes Assessment/Plan Assessment/Plan (1) Non-pressure chronic ulcer of other part of left foot with bone involvement without evidence of necrosis: CODE(S): L97.526 - Non-pressure chronic ulcer of other part of left foot with bone involvement without evidence of necrosis PLAN: Patient was examined and evaluated. All findings were discussed with the patient. All questions were answered to the patient's satisfaction. Excisional debridement down to and including subcutaneous tissue, fascia, tendon and bone of the left foot with a number 7 mm dermal curette without incident. Predebridement measurement was 8.6 x 2.0 x 0.1 cm. Postdebridement measurement is 8.9 x 2.4 x 0.1 cm. EpiFix mesh 4.0 x 4.5 cm was applied to the left full-thickness ulceration with 100% use. Second application. The graft site was free and clear of any infection. The wound/skin graft substitute was dressed with nonadherent bandage secured in place with Steri-Strips followed by bolster dressing as well as a double layer Tubigrip. The right foot was wiped clean and patted dry. The tunneling wound was packed with Betadine soaked gauze prior to application of the delta layer Tubigrip and bolster dressing. Patient will be discharging tomorrow to return home. He has reassured us that he will be showing up every Sunday with a ride from a family member or friend. He will continue strict blood sugar control. He will leave the dressing clean dry and intact as well as change dressing as discussed for the tunneling wound with Betadine soaked gauze. Follow-up at the wound care center with Dr. Barnett in 1 week.
--- NOTE | 2024-08-27 15:19 | NURSING ---
PHOTO 08/27/24 LEFT FOOT
[2024-09-03 08:35] VITALS: BP 156/91; PULSE 88; RESP 18; TEMP 36.1; BMI 35.7
--- NOTE | 2024-09-03 10:25 | PN.PCM_ITS ---
History of Present Illness Date of Service: 09/03/24 Chief Complaint: Left foot full-thickness wound History of Wound: Mr. Palacios is a 74-year-old diabetic male seen at the wound care center today for follow-up evaluation of status post fifth ray resection with wound VAC application. Patient currently residing in a long term facility. He is doing well with dressing changes. He admits that he is feeling better. He is getting PICC line antibiotics through the PICC line in his left arm. Otherwise he denies any trauma. Denies constitutional symptoms. No other pedal complaints at this time. Progress of Wound: Chronic wound left foot stable Subjective Subjective Mr. Palacios is a 74-year-old male presented wound care center today follow-up evaluation of left foot full-thickness wound. Patient has been discharged from the SNF and is now home. He is getting dressing changes by family. He mitts great improvement to the wound. His blood sugars well-controlled. Denies tra alessia. Denies constitutional symptoms. No other pedal complaints at this time. Objective Data Objective Data Vital Signs: Vital Signs Temp Pulse Resp BP O2 Del Method 97 F L 88 18 156/91 H Room Air 09/03/24 08:35 09/03/24 08:35 09/03/24 08:35 09/03/24 08:35 08/20/24 08:11 Oxygen Delivery Method Room Air Weight: 122.924 kg Body Mass Index (BMI) 35.7 Physical Exam Narrative Vascular: DP and PT pulses are faintly palpable to left extremity. CFT is brisk. No erythema. skin temp great is warm to warm from proximal ankles to distal digits to left lower extremity. Nonpitting edema appreciated left lower extremity. Neurological: Light touch intact. Protective station is absent. Dermatological: Full-thickness wound to the lateral left foot secondary to amputation measuring 9.3 x 1.8 x 0.1 cm. Wound base is granular. No drainage or sign of infection. Evidence of 10:00 tunneling measuring 0.90cm. No malodor. No probe to bone. Excisional debridement down to and including subcutaneous tissue, fascia, tendon and bone of the left foot with a number 7 mm dermal curette without incident. Predebridement measurement was 9.0 x 1.5 x 0.1 cm. Postdebridement measurement is 9.3 x 1.8 x 0.1 cm. EpiFix mesh 4.0 x 4.5 cm was applied to the left full-thickness ulceration with 100% use. Third application. The graft site was free and clear of any infection. The wound/skin graft substitute was dressed with nonadherent bandage secured in place with Steri-Strips followed by bolster dressing as well as a double layer Tubigrip. Musculoskeletal: No pain on palpation to the full-thickness wound to the left foot. No pain with calf pressure. Debridement Note Debridement Note Debridement Free Text: Excisional debridement down to and including subcutaneous tissue, fascia, tendon and bone of the left foot with a number 7 mm dermal curette without incident. Predebridement measurement was 9.0 x 1.5 x 0.1 cm. Postdebridement measurement is 9.3 x 1.8 x 0.1 cm. EpiFix mesh 4.0 x 4.5 cm was applied to the left full-thickness ulceration with 100% use. Third application. The graft site was free and clear of any infection. The wound/skin graft substitute was dressed with nonadherent bandage secured in place with Steri-Strips followed by bolster dressing as well as a double layer Tubigrip. Post-Debridement Measurements and Additional Note: Post-Debridement Measurements/Treatment - Nurse 1 - General Ulcer Assessment Start: 08/20/24 08:11 Freq: Status: Active Protocol: [email or web address].[email or web address] Activity Type Activity Date Activity User E-sign Co-sign Detail Recorded Client Recorded Date Recorded By Document 08/20/24 08:11 KW [id number] 08/20/24 08:16 KW Document 08/27/24 09:08 DL [id number] 08/27/24 09:20 DL Document 09/03/24 08:35 RB [id number] 09/03/24 08:40 RB 08/20/24 08/27/24 09/03/24 08:11 09:08 08:35 - Today's Visit Information Type of service Follow-up Visit Follow-up Visit Follow-up Visit (Physician/GMAT INSTRUCTOR (Physician/GMAT INSTRUCTOR (Physician/GMAT INSTRUCTOR ) ) ) Arrival Mode Wheelchair Ambulatory, Wheelchair Wheelchair Transfer Assistance None Patient Identification Verified (Name & Yes Yes Yes ) Patient Requires Transmission-Based No No Precautions Finger Stick Blood Sugar(mg/dl) (if 140 indicated): Blood Sugar Stated by Patient Height and Weight Body Mass Index (BMI) 35.7 35.7 35.7 BMI Classification Obese Obese Obese Vital Signs Temperature (97.8 F-99.1 F) 96.5 F L 97.2 F L 97 F L Temperature Source Temporal Temporal Temporal Pulse Rate (60-100) 102 H 101 H 88 Pulse Location Monitor Monitor Monitor Respiratory Rate (12-18) 16 18 18 Respiratory rate source Observation Observation Observation Oxygen Delivery Method Room Air Blood Pressure (90/60-120/80) 143/78 H 140/73 H 156/91 H Blood Pressure Mean (mm Hg) 99 95 112 Source Monitor Monitor Monitor Position Semi-Fowlers Sitting Blood Pressure Location Left Arm Left Arm History Since Last Visit- (Skip if this is Patient's initial visit) Have you changed medications since your No No No last visit? Any new allergies or adverse reactions No No No Had a fall/change in ADL's that may No No No increase risk of falls Signs or symptoms of abuse and/or No No No neglect since last visit Have you been in the hospital since your No No No last visit? Has dressing in place as prescribed Yes Yes Yes Has compression in place as prescribed Yes Yes Yes Has offloadiing in place as prescribed Yes Yes Yes Experienced any changes in pain level or No No No management Left Footwear Slipper No Footwear No Footwear Right Footwear No Footwear No Footwear Pain Scale: 0-10 Numeric Is Patient Pain Free? Yes Yes Yes WC - Nurse 1 - General Ulcer Measurement Start: 08/20/24 08:11 Freq: Status: Active Protocol: Activity Type Activity Date Activity User E-sign Co-sign Detail Recorded Client Recorded Date Recorded By Document 08/20/24 08:11 KW [id number] 08/20/24 08:16 KW Document 08/27/24 09:08 DL [id number] 08/27/24 09:20 DL Document 09/03/24 08:35 RB [id number] 09/03/24 08:40 RB 08/20/24 08/27/24 09/03/24 08:11 09:08 08:35 Wound Center Nurse 1 5-left 4th toe -Combined with other wound No -Current Size (cm) - Length 0.1 0.1 0.1 -Current Size (cm) - Width 0.1 0.1 0.1 -Current Size (cm) - Depth 0.1 0.1 0.1 -Total Square Cm 0.01 0.01 0.01 -Date of Last Picture (Recall this 08/20/24 field) -Photo Taken Yes -Tunneling No -Undermining/Tunneling No -Circular Undermining No -Classification - Thickness Full Thickness without Exposed Support Structure -Change in Wound Grade/Stage No -Exudate Amt None Present None Present Medium -Exudate Type Serosanguineous Serosanguineous -Wound Margin Distinct, Thickened Distinct, Outline Outline Attached Attached -Granulation Amt Large (67-100%) None Present (0 Large (67-100%) %) -Granulation Quality [place] -Slough/Fibrin Yes -Necrosis Amt Small (1-33%) Small (1-33%) Large (67-100%) -Necrotic Tissue Type Adherent Slough Eschar Adherent Slough -Structure Exposed N/A N/A -Texture (Maxine-wound Skin Appearance) Assessed Scarring Assessed -Moisture (Maxine-wound Skin Appearance) Assessed Dry/Scaly Assessed -Color (Maxine-wound Skin Appearance) Assessed Hemosiderin Assessed Staining -Temperature (Maxine-wound Skin No Abnormality No Abnormality No Abnormality Appearance) (Pt Warm) (Pt Warm) (Pt Warm) -Tenderness on Palpation (Maxine-wound No No No Skin Appearance) -Ulcer Cleansing Soap and Water Soap and Water Wound Cleanser -Foul Odor after Cleansing No No No -Anesthetic Used 4% Lidocaine 5% Lidocaine 5% Lidocaine Solution Gel Gel 4 LT LAT FOOT -Combined with other wound No -Current Size (cm) - Length 8.9 9 9 -Current Size (cm) - Width 2.4 2 1.5 -Current Size (cm) - Depth 0.2 1.1 0.7 -Total Square Cm 21.36 18 13.5 -Date of Last Picture (Recall this 08/20/24 field) -Photo Taken Yes -Epithelialization Small 1-33% -Tunneling Yes Yes -Tunneling Position (O'clock) 12 7 12 -Tunneling Distance (cm) 3 2.7 0.7 -Undermining/Tunneling Yes -Undermining/Tunneling Starts (O'clock 9 ) -Undermining/Tunneling Ends (O'clock) 12 -Maximum Distance (cm) 0.5 -Circular Undermining No -Exudate Amt Medium Medium Medium -Exudate Type Serosanguineous Serosanguineous Serosanguineous -Wound Margin Thickened & Distinct, Distinct, Rolled Under Outline Outline Attached Attached -Granulation Amt Large (67-100%) Large (67-100%) Medium (34-66%) -Granulation Quality [place] -Slough/Fibrin Yes -Necrosis Amt Small (1-33%) Small (1-33%) Medium (34-66%) -Necrotic Tissue Type Adherent Slough Adherent Slough Adherent Slough -Structure Exposed N/A N/A -Texture (Maxine-wound Skin Appearance) Assessed Scarring Scarring -Moisture (Maxine-wound Skin Appearance) Assessed Dry/Scaly Assessed -Color (Maxine-wound Skin Appearance) Assessed Hemosiderin Assessed Staining -Temperature (Maxine-wound Skin No Abnormality No Abnormality No Abnormality Appearance) (Pt Warm) (Pt Warm) (Pt Warm) -Tenderness on Palpation (Maxine-wound No No No Skin Appearance) -Ulcer Cleansing Soap and Water Soap and Water Wound Cleanser -Foul Odor after Cleansing No No No -Anesthetic Used 4% Lidocaine 5% Lidocaine 5% Lidocaine Solution Gel Gel Left Calf (cm) 39.5 Left Ankle (cm) 25 WC - Nurse 2 - General Ulcer CM Notes Start: 08/20/24 08:11 Freq: Status: Active Protocol: Activity Type Activity Date Activity User E-sign Co-sign Detail Recorded Client Recorded Date Recorded By Document 08/20/24 08:30 [id number] 08/20/24 08:39 JF Edit Result 08/20/24 08:30 JF (1) [id number] 08/26/24 14:30 JF Document 08/27/24 09:33 [facility] [id number] 08/27/24 09:41 BMF Edit Result 08/27/24 09:33 BMF (2) [id number] 08/27/24 15:06 BMF Document 09/03/24 09:02 JF [id number] 09/03/24 09:06 JF (1) 4 LT LAT FOOT - Debridement - Bone, 1st 20sq cm Yes => No (2) 5-left 4th toe - Clinical Debridement Muscle / Fascia => - Tissue Removed Muscle,Fascia => - Debridement - Muscle / Fascia, 1st No => 20sq cm 02/12/0708/27/24 09/03/24 08:30 09:33 09:02 Wound Center Nurse 2 5-left 4th toe -Time 09:34 09:03 -Correct Patient No Yes -Correct Side, Site, Position No Yes -Correct Procedure No Yes -Procedure Performed No Yes -Type of Procedure Debridement -Clinical Debridement Subcutaneous -Post Debridement (cm) - Length 0.1 0.1 0.2 -Post Debridement (cm) - Width 0.1 0.1 0.2 -Post Debridement (cm) - Depth 0.1 0.1 0.1 -Total Square (Post) (cm) 0.01 0.01 0.04 -Area of Debridement (cm) - Length 0.1 0.1 0.2 -Area of Debridement (cm) - Width 0.1 0.1 0.2 -Total Square (Area) (cm) 0.01 0.01 0.04 -Tunneling No -Undermining/Tunneling No -Circular Undermining No -Wound/Ulcer Outcome Not Healed Not Healed Not Healed -Ulcer Cleansing Rinsed/ Irrigated with Saline -Foul Odor after Cleansing No -Bioengineered Tissue No -Bleeding Controlled with NA Pressure -Treatment Response Procedure Tolerated Well -Offloading No -Debridement - Subq, 1st 20sq cm Yes 4 LT LAT FOOT -Time 08:30 09:34 09:03 -Correct Patient Yes Yes Yes -Correct Side, Site, Position Yes Yes Yes -Correct Procedure Yes Yes Yes -Procedure Performed Yes Yes Yes -Type of Procedure Debridement Debridement Debridement -Clinical Debridement Bone Subcutaneous Subcutaneous -Tissue Removed Non-viable Subcutaneous Subcutaneous tissue -Post Debridement (cm) - Length 8.7 8.9 9.3 -Post Debridement (cm) - Width 2.4 2.4 1.8 -Post Debridement (cm) - Depth 0.1 0.1 0.1 -Total Square (Post) (cm) 20.88 21.36 16.74 -Area of Debridement (cm) - Length 8.7 8.9 9.3 -Area of Debridement (cm) - Width 2.4 2.4 1.8 -Total Square (Area) (cm) 20.88 21.36 16.74 -Tunneling Yes Yes No -Tunneling Position (O'clock) 10 10 -Tunneling Distance (cm) 3 3.4 -Undermining/Tunneling No No No -Circular Undermining No No No -Wound/Ulcer Outcome Not Healed Not Healed Not Healed -Ulcer Cleansing Rinsed/ Rinsed/ Rinsed/ Irrigated with Irrigated with Irrigated with Saline Saline Saline -Foul Odor after Cleansing No No No -Bioengineered Tissue Yes Yes Yes -Type of Bioengineered Tissue Epifix Mesh Epifix Mesh Epifix Mesh -Expiration Date 02/13/29 02/13/29 -Product Lot Number [id number] -Percent Used 100 100 -Lot number of Saline Used [id number] -Bleeding Controlled with Pressure Pressure Pressure -Treatment Response Procedure Procedure Procedure Tolerated Well Tolerated Well Tolerated Well -Offloading Yes Yes -Type of Offloading Surgical Shoe Surgical Shoe -Debridement - Subq, 1st 20sq cm No No -Debridement - Bone, 1st 20sq cm No -Apply Skin Sub - 1st 25 sq cm - Feet 1 1 1 -Epifix Mesh (per sq cm) 11 11 11 Pain Scale: 0-10 Numeric Is Patient Pain Free? Yes Yes Yes - Nurse 3 - General Ulcer D/C NN Start: 08/20/24 08:11 Freq: Status: Active Protocol: Activity Type Activity Date Activity User E-sign Co-sign Detail Recorded Client Recorded Date Recorded By Document 08/20/24 08:56 KW [id number] 08/20/24 08:57 KW Document 08/27/24 09:57 KW [id number] 08/27/24 09:58 KW 08/20/24 08/27/24 08:56 09:57 Wound Care Center Nurse 3 5-left 4th toe -Other Dressing betadine soaked gauze packed -Primary Dressing Covered/Secured with Dry Gauze 4 LT LAT FOOT -Other Dressing packed tunnel with betadine gauze -Primary Dressing Covered/Secured with Dry Gauze & Dry Gauze & Roll Gauze, Roll Gauze, Secured with Secured with Tape Tape Left -Compression Wrap Freddie Wrap Freddie Wrap -Other 2 Pain Scale: 0-10 Numeric Is Patient Pain Free? Yes Yes - Visit Discharge Discharge Condition Stable Stable Ambulatory Status Wheelchair Wheelchair Medication Reconcilliation completed & No No provided to patient/care provider Clinical Summary of Care Provided Yes Yes Assessment/Plan Assessment/Plan (1) Non-pressure chronic ulcer of other part of left foot with bone involvement without evidence of necrosis: CODE(S): L97.526 - Non-pressure chronic ulcer of other part of left foot with bone involvement without evidence of necrosis PLAN: Patient was examined and evaluated. All findings were discussed with the patient. All questions were answered to the patient's satisfaction. Excisional debridement down to and including subcutaneous tissue, fascia, tendon and bone of the left foot with a number 7 mm dermal curette without incident. Predebridement measurement was 9.0 x 1.5 x 0.1 cm. Postdebridement measurement is 9.3 x 1.8 x 0.1 cm. EpiFix mesh 4.0 x 4.5 cm was applied to the left full-thickness ulceration with 100% use. Third application. The graft site was free and clear of any infection. The wound/skin graft substitute was dressed with nonadherent bandage secured in place with Steri-Strips followed by bolster dressing as well as a double layer Tubigrip. Follow-up at the wound care center with Dr. Barnett in 1 week.
[2024-09-10 08:24] VITALS: BP 144/60; PULSE 79; RESP 18; TEMP 36.1; BMI 35.7
--- NOTE | 2024-09-10 11:49 | PN.PCM_ITS ---
History of Present Illness Date of Service: 09/10/24 Chief Complaint: Left foot full-thickness wound History of Wound: Mr. Palacios is a 74-year-old diabetic male seen at the wound care center today for follow-up evaluation of status post fifth ray resection with wound VAC application. Patient currently residing in a care home facility. He is doing well with dressing changes. He admits that he is feeling better. He is getting PICC line antibiotics through the PICC line in his left arm. Otherwise he denies any trauma. Denies constitutional symptoms. No other pedal complaints at this time. Progress of Wound: Chronic wound left foot stable Subjective Subjective Mr. Palacios is a 74-year-old diabetic male presented wound care center today follow-up evaluation of full-thickness wound with amniotic skin graft substitute application. Patient has been doing well and has left his left lower extremity dressing clean dry and intact. Denies strikethrough. Blood sugar well-cont rolled. Denies trauma. Denies constitutional symptoms. No other pedal complaints at this time. Objective Data Objective Data Vital Signs: Vital Signs Temp Pulse Resp BP O2 Del Method 96.9 F L 79 18 144/60 H Room Air 09/10/24 08:24 09/10/24 08:24 09/10/24 08:24 09/10/24 08:24 09/10/24 08:24 Oxygen Delivery Method Room Air Weight: 122.924 kg Body Mass Index (BMI) 35.7 Physical Exam Narrative Vascular: DP and PT pulses are faintly palpable to left extremity. CFT is brisk. No erythema. skin temp great is warm to warm from proximal ankles to distal digits to left lower extremity. Nonpitting edema appreciated left lower extremity. Neurological: Light touch intact. Protective station is absent. Dermatological: Full-thickness wound to the lateral left foot secondary to amputation measuring 9.0 x 1.7 x 0.1 cm. Wound base is granular. No drainage or sign of infection. Evidence of 10:00 tunneling measuring 0.5 cm. No malodor. No probe to bone. Excisional debridement down to and including subcutaneous tissue, fascia, tendon and bone of the left foot with a number 7 mm dermal curette without incident. Predebridement measurement was 8.8 x 1.5 x 0.1 cm. Postdebridement measurement is 9.0 x 1.7 x 0.1 cm. EpiFix mesh 4.0 x 4.5 cm was applied to the left full-thickness ulceration with 100% use. Fourth application. The graft site was free and clear of any infection. The wound/skin graft substitute was dressed with nonadherent bandage secured in place with Steri-Strips followed by bolster dressing as well as a double layer Tubigrip. Musculoskeletal: No pain on palpation to the full-thickness wound to the left foot. No pain with calf pressure. Debridement Note Debridement Note Debridement Free Text: Excisional debridement down to and including subcutaneous tissue, fascia, tendon and bone of the left foot with a number 7 mm dermal curette without incident. Predebridement measurement was 8.8 x 1.5 x 0.1 cm. Postdebridement measurement is 9.0 x 1.7 x 0.1 cm. EpiFix mesh 4.0 x 4.5 cm was applied to the left full-thickness ulceration with 100% use. Fourth application. The graft site was free and clear of any infection. The wound/skin graft substitute was dressed with nonadherent bandage secured in place with Steri-Strips followed by bolster dressing as well as a double layer Tubigrip. Post-Debridement Measurements and Additional Note: Post-Debridement Measurements/Treatment - Nurse 1 - General Ulcer Assessment Start: 08/20/24 08:11 Freq: Status: Active Protocol: [email or web address].[email or web address] Activity Type Activity Date Activity User E-sign Co-sign Detail Recorded Client Recorded Date Recorded By Document 08/20/24 08:11 KW [id number] 08/20/24 08:16 KW Document 08/27/24 09:08 DL [id number] 08/27/24 09:20 DL Document 09/03/24 08:35 RB [id number] 09/03/24 08:40 RB Document 09/10/24 08:24 KW [id number] 09/10/24 08:36 KW 08/20/24 08/27/24 09/03/24 08:11 09:08 08:35 - Today's Visit Information Type of service Follow-up Visit Follow-up Visit Follow-up Visit (Physician/MARKETING GRAPHICS SPECIALIST (Physician/MARKETING GRAPHICS SPECIALIST (Physician/MARKETING GRAPHICS SPECIALIST ) ) ) Arrival Mode Wheelchair Ambulatory, Wheelchair Wheelchair Transfer Assistance None Patient Identification Verified (Name & Yes Yes Yes ) Patient Requires Transmission-Based No No Precautions Finger Stick Blood Sugar(mg/dl) (if 140 indicated): Blood Sugar Stated by Patient Height and Weight Body Mass Index (BMI) 35.7 35.7 35.7 BMI Classification Obese Obese Obese Vital Signs Temperature (97.8 F-99.1 F) 96.5 F L 97.2 F L 97 F L Temperature Source Temporal Temporal Temporal Pulse Rate (60-100) 102 H 101 H 88 Pulse Location Monitor Monitor Monitor Respiratory Rate (12-18) 16 18 18 Respiratory rate source Observation Observation Observation Oxygen Delivery Method Room Air Blood Pressure (90/60-120/80) 143/78 H 140/73 H 156/91 H Blood Pressure Mean (mm Hg) 99 95 112 Source Monitor Monitor Monitor Position Semi-Fowlers Sitting Blood Pressure Location Left Arm Left Arm History Since Last Visit- (Skip if this is Patient's initial visit) Have you changed medications since your No No No last visit? Any new allergies or adverse reactions No No No Had a fall/change in ADL's that may No No No increase risk of falls Signs or symptoms of abuse and/or No No No neglect since last visit Have you been in the hospital since your No No No last visit? Has dressing in place as prescribed Yes Yes Yes Has compression in place as prescribed Yes Yes Yes Has offloadiing in place as prescribed Yes Yes Yes Experienced any changes in pain level or No No No management Left Footwear Slipper No Footwear No Footwear Right Footwear No Footwear No Footwear Pain Scale: 0-10 Numeric Is Patient Pain Free? Yes Yes Yes 09/10/24 08:24 WC - Today's Visit Information Type of service Follow-up Visit (Physician/MARKETING GRAPHICS SPECIALIST ) Arrival Mode Wheelchair Transfer Assistance Patient Identification Verified (Name & Yes ) Patient Requires Transmission-Based Precautions Finger Stick Blood Sugar(mg/dl) (if indicated): Blood Sugar Height and Weight Body Mass Index (BMI) 35.7 BMI Classification Obese Vital Signs Temperature (97.8 F-99.1 F) 96.9 F L Temperature Source Temporal Pulse Rate (60-100) 79 Pulse Location Monitor Respiratory Rate (12-18) 18 Respiratory rate source Observation Oxygen Delivery Method Room Air Blood Pressure (90/60-120/80) 144/60 H Blood Pressure Mean (mm Hg) 88 Source Monitor Position Semi-Fowlers Blood Pressure Location Left Arm History Since Last Visit- (Skip if this is Patient's initial visit) Have you changed medications since your No last visit? Any new allergies or adverse reactions No Had a fall/change in ADL's that may No increase risk of falls Signs or symptoms of abuse and/or No neglect since last visit Have you been in the hospital since your No last visit? Has dressing in place as prescribed Yes Has compression in place as prescribed Yes Has offloadiing in place as prescribed Yes Experienced any changes in pain level or No management Left Footwear No Footwear Right Footwear Slipper Pain Scale: 0-10 Numeric Is Patient Pain Free? Yes WC - Nurse 1 - General Ulcer Measurement Start: 08/20/24 08:11 Freq: Status: Active Protocol: Activity Type Activity Date Activity User E-sign Co-sign Detail Recorded Client Recorded Date Recorded By Document 08/20/24 08:11 KW [id number] 08/20/24 08:16 KW Document 08/27/24 09:08 DL [id number] 08/27/24 09:20 DL Document 09/03/24 08:35 RB [id number] 09/03/24 08:40 RB Document 09/10/24 08:24 KW [id number] 09/10/24 08:36 KW 08/20/24 08/27/24 09/03/24 08:11 09:08 08:35 Wound Center Nurse 1 5-left 4th toe -Combined with other wound No -Current Size (cm) - Length 0.1 0.1 0.1 -Current Size (cm) - Width 0.1 0.1 0.1 -Current Size (cm) - Depth 0.1 0.1 0.1 -Total Square Cm 0.01 0.01 0.01 -Date of Last Picture (Recall this 08/20/24 field) -Photo Taken Yes -Tunneling No -Undermining/Tunneling No -Circular Undermining No -Classification - Thickness Full Thickness without Exposed Support Structure -Change in Wound Grade/Stage No -Exudate Amt None Present None Present Medium -Exudate Type Serosanguineous Serosanguineous -Wound Margin Distinct, Thickened Distinct, Outline Outline Attached Attached -Granulation Amt Large (67-100%) None Present (0 Large (67-100%) %) -Granulation Quality Red Red [place] -Slough/Fibrin Yes -Necrosis Amt Small (1-33%) Small (1-33%) Large (67-100%) -Necrotic Tissue Type Adherent Slough Eschar Adherent Slough -Structure Exposed N/A N/A -Texture (Maxine-wound Skin Appearance) Assessed Scarring Assessed -Moisture (Maxine-wound Skin Appearance) Assessed Dry/Scaly Assessed -Color (Maxine-wound Skin Appearance) Assessed Hemosiderin Assessed Staining -Temperature (Maxine-wound Skin No Abnormality No Abnormality No Abnormality Appearance) (Pt Warm) (Pt Warm) (Pt Warm) -Tenderness on Palpation (Maxine-wound No No No Skin Appearance) -Ulcer Cleansing Soap and Water Soap and Water Wound Cleanser -Foul Odor after Cleansing No No No -Anesthetic Used 4% Lidocaine 5% Lidocaine 5% Lidocaine Solution Gel Gel 4 LT LAT FOOT -Combined with other wound No -Current Size (cm) - Length 8.9 9 9 -Current Size (cm) - Width 2.4 2 1.5 -Current Size (cm) - Depth 0.2 1.1 0.7 -Total Square Cm 21.36 18 13.5 -Date of Last Picture (Recall this 08/20/24 field) -Photo Taken Yes -Epithelialization Small 1-33% -Tunneling Yes Yes -Tunneling Position (O'clock) 12 7 12 -Tunneling Distance (cm) 3 2.7 0.7 -Undermining/Tunneling Yes -Undermining/Tunneling Starts (O'clock 9 ) -Undermining/Tunneling Ends (O'clock) 12 -Maximum Distance (cm) 0.5 -Circular Undermining No -Exudate Amt Medium Medium Medium -Exudate Type Serosanguineous Serosanguineous Serosanguineous -Wound Margin Thickened & Distinct, Distinct, Rolled Under Outline Outline Attached Attached -Granulation Amt Large (67-100%) Large (67-100%) Medium (34-66%) -Granulation Quality Red Red [place] -Slough/Fibrin Yes -Necrosis Amt Small (1-33%) Small (1-33%) Medium (34-66%) -Necrotic Tissue Type Adherent Slough Adherent Slough Adherent Slough -Structure Exposed N/A N/A -Texture (Maxine-wound Skin Appearance) Assessed Scarring Scarring -Moisture (Maxine-wound Skin Appearance) Assessed Dry/Scaly Assessed -Color (Maxine-wound Skin Appearance) Assessed Hemosiderin Assessed Staining -Temperature (Maxine-wound Skin No Abnormality No Abnormality No Abnormality Appearance) (Pt Warm) (Pt Warm) (Pt Warm) -Tenderness on Palpation (Maxine-wound No No No Skin Appearance) -Ulcer Cleansing Soap and Water Soap and Water Wound Cleanser -Foul Odor after Cleansing No No No -Anesthetic Used 4% Lidocaine 5% Lidocaine 5% Lidocaine Solution Gel Gel Left Calf (cm) 39.5 Left Ankle (cm) 09/10/24 08:24 Wound Center Nurse 1 5-left 4th toe -Combined with other wound -Current Size (cm) - Length 0.1 -Current Size (cm) - Width 0.1 -Current Size (cm) - Depth 0 -Total Square Cm 0.01 -Date of Last Picture (Recall this 09/10/24 field) -Photo Taken -Tunneling -Undermining/Tunneling -Circular Undermining -Classification - Thickness -Change in Wound Grade/Stage -Exudate Amt None Present -Exudate Type -Wound Margin -Granulation Amt Large (67-100%) -Granulation Quality [place] -Slough/Fibrin -Necrosis Amt -Necrotic Tissue Type -Structure Exposed -Texture (Maxine-wound Skin Appearance) Assessed -Moisture (Maxine-wound Skin Appearance) Assessed -Color (Maxine-wound Skin Appearance) Assessed -Temperature (Maxine-wound Skin No Abnormality Appearance) (Pt Warm) -Tenderness on Palpation (Maxine-wound No Skin Appearance) -Ulcer Cleansing Soap and Water -Foul Odor after Cleansing No -Anesthetic Used 4% Lidocaine Solution 4 LT LAT FOOT -Combined with other wound -Current Size (cm) - Length 9 -Current Size (cm) - Width 2.1 -Current Size (cm) - Depth 0.2 -Total Square Cm 18.9 -Date of Last Picture (Recall this 09/10/24 field) -Photo Taken -Epithelialization Medium 34-66% -Tunneling Yes -Tunneling Position (O'clock) 12 -Tunneling Distance (cm) 0.9 -Undermining/Tunneling -Undermining/Tunneling Starts (O'clock ) -Undermining/Tunneling Ends (O'clock) -Maximum Distance (cm) -Circular Undermining -Exudate Amt Small -Exudate Type Serosanguineous -Wound Margin Distinct, Outline Attached -Granulation Amt Large (67-100%) -Granulation Quality Red -Slough/Fibrin -Necrosis Amt Small (1-33%) -Necrotic Tissue Type Adherent Slough -Structure Exposed -Texture (Maxine-wound Skin Appearance) Assessed -Moisture (Maxine-wound Skin Appearance) Assessed,Dry/ Scaly -Color (Maxine-wound Skin Appearance) Assessed -Temperature (Maxine-wound Skin No Abnormality Appearance) (Pt Warm) -Tenderness on Palpation (Maxine-wound No Skin Appearance) -Ulcer Cleansing Soap and Water -Foul Odor after Cleansing No -Anesthetic Used 4% Lidocaine Solution Left Calf (cm) Left Ankle (cm) WC - Nurse 2 - General Ulcer CM Notes Start: 08/20/24 08:11 Freq: Status: Active Protocol: Activity Type Activity Date Activity User E-sign Co-sign Detail Recorded Client Recorded Date Recorded By Document 08/20/24 08:30 JF [id number] 08/20/24 08:39 JF Edit Result 08/20/24 08:30 JF (1) [id number] 08/26/24 14:30 JF Document 08/27/24 09:33 BMF [id number] 08/27/24 09:41 BMF Edit Result 08/27/24 09:33 BMF (2) [id number] 08/27/24 15:06 BMF Document 09/03/24 09:02 JF [id number] 09/03/24 09:06 JF Document 09/10/24 09:10 JF [id number] 09/10/24 09:13 JF (1) 4 LT LAT FOOT - Debridement - Bone, 1st 20sq cm Yes => No (2) 5-left 4th toe - Clinical Debridement Muscle / Fascia => - Tissue Removed Muscle,Fascia => - Debridement - Muscle / Fascia, 1st No => 20sq cm 08/20/24 08/27/24 09/03/24 08:30 09:33 09:02 Wound Center Nurse 2 5-left 4th toe -Time 09:34 09:03 -Correct Patient No Yes -Correct Side, Site, Position No Yes -Correct Procedure No Yes -Procedure Performed No Yes -Type of Procedure Debridement -Clinical Debridement Subcutaneous -Post Debridement (cm) - Length 0.1 0.1 0.2 -Post Debridement (cm) - Width 0.1 0.1 0.2 -Post Debridement (cm) - Depth 0.1 0.1 0.1 -Total Square (Post) (cm) 0.01 0.01 0.04 -Area of Debridement (cm) - Length 0.1 0.1 0.2 -Area of Debridement (cm) - Width 0.1 0.1 0.2 -Total Square (Area) (cm) 0.01 0.01 0.04 -Tunneling No -Undermining/Tunneling No -Circular Undermining No -Wound/Ulcer Outcome Not Healed Not Healed Not Healed -Ulcer Cleansing Rinsed/ Irrigated with Saline -Foul Odor after Cleansing No -Bioengineered Tissue No -Bleeding Controlled with NA Pressure -Treatment Response Procedure Tolerated Well -Offloading No -Debridement - Subq, 1st 20sq cm Yes 4 LT LAT FOOT -Time 08:30 09:34 09:03 -Correct Patient Yes Yes Yes -Correct Side, Site, Position Yes Yes Yes -Correct Procedure Yes Yes Yes -Procedure Performed Yes Yes Yes -Type of Procedure Debridement Debridement Debridement -Clinical Debridement Bone Subcutaneous Subcutaneous -Tissue Removed Non-viable Subcutaneous Subcutaneous tissue -Post Debridement (cm) - Length 8.7 8.9 9.3 -Post Debridement (cm) - Width 2.4 2.4 1.8 -Post Debridement (cm) - Depth 0.1 0.1 0.1 -Total Square (Post) (cm) 20.88 21.36 16.74 -Area of Debridement (cm) - Length 8.7 8.9 9.3 -Area of Debridement (cm) - Width 2.4 2.4 1.8 -Total Square (Area) (cm) 20.88 21.36 16.74 -Tunneling Yes Yes No -Tunneling Position (O'clock) 10 10 -Tunneling Distance (cm) 3 3.4 -Undermining/Tunneling No No No -Circular Undermining No No No -Wound/Ulcer Outcome Not Healed Not Healed Not Healed -Ulcer Cleansing Rinsed/ Rinsed/ Rinsed/ Irrigated with Irrigated with Irrigated with Saline Saline Saline -Foul Odor after Cleansing No No No -Bioengineered Tissue Yes Yes Yes -Type of Bioengineered Tissue Epifix Mesh Epifix Mesh Epifix Mesh -Expiration Date 02/13/29 02/13/29 -Product Lot Number [id number] -Percent Used 100 100 -Lot number of Saline Used [id number] -Bleeding Controlled with Pressure Pressure Pressure -Treatment Response Procedure Procedure Procedure Tolerated Well Tolerated Well Tolerated Well -Offloading Yes Yes -Type of Offloading Surgical Shoe Surgical Shoe -Debridement - Subq, 1st 20sq cm No No -Debridement - Bone, 1st 20sq cm No -Apply Skin Sub - 1st 25 sq cm - Feet 1 1 1 -Epifix Mesh (per sq cm) 11 11 11 Pain Scale: 0-10 Numeric Is Patient Pain Free? Yes Yes Yes 09/10/24 09:10 Wound Center Nurse 2 5-left 4th toe -Time -Correct Patient Yes -Correct Side, Site, Position No -Correct Procedure No -Procedure Performed No -Type of Procedure -Clinical Debridement -Post Debridement (cm) - Length 0 -Post Debridement (cm) - Width 0 -Post Debridement (cm) - Depth 0 -Total Square (Post) (cm) 0 -Area of Debridement (cm) - Length 0 -Area of Debridement (cm) - Width 0 -Total Square (Area) (cm) 0 -Tunneling -Undermining/Tunneling -Circular Undermining -Wound/Ulcer Outcome Healed- Epithelialized -Ulcer Cleansing -Foul Odor after Cleansing -Bioengineered Tissue -Bleeding Controlled with -Treatment Response -Offloading -Debridement - Subq, 1st 20sq cm 4 LT LAT FOOT -Time 09:10 -Correct Patient Yes -Correct Side, Site, Position Yes -Correct Procedure Yes -Procedure Performed Yes -Type of Procedure Debridement -Clinical Debridement Subcutaneous -Tissue Removed Subcutaneous -Post Debridement (cm) - Length 9 -Post Debridement (cm) - Width 1.7 -Post Debridement (cm) - Depth 0.1 -Total Square (Post) (cm) 15.3 -Area of Debridement (cm) - Length 9 -Area of Debridement (cm) - Width 1.7 -Total Square (Area) (cm) 15.3 -Tunneling Yes -Tunneling Position (O'clock) 10 -Tunneling Distance (cm) 0.5 -Undermining/Tunneling No -Circular Undermining No -Wound/Ulcer Outcome Not Healed -Ulcer Cleansing Rinsed/ Irrigated with Saline -Foul Odor after Cleansing No -Bioengineered Tissue Yes -Type of Bioengineered Tissue Epifix Mesh -Expiration Date 02/13/29 -Product Lot Number [id number] -Percent Used 100 -Lot number of Saline Used [id number] -Bleeding Controlled with Pressure -Treatment Response Procedure Tolerated Well -Offloading Yes -Type of Offloading Surgical Shoe -Debridement - Subq, 1st 20sq cm No -Debridement - Bone, 1st 20sq cm -Apply Skin Sub - 1st 25 sq cm - Feet 1 -Epifix Mesh (per sq cm) 11 Pain Scale: 0-10 Numeric Is Patient Pain Free? Yes - Nurse 3 - General Ulcer D/C NN Start: 08/20/24 08:11 Freq: Status: Active Protocol: Activity Type Activity Date Activity User E-sign Co-sign Detail Recorded Client Recorded Date Recorded By Document 08/20/24 08:56 KW [id number] 08/20/24 08:57 KW Document 08/27/24 09:57 KW [id number] 08/27/24 09:58 KW Document 09/03/24 10:52 DL [id number] 09/03/24 10:55 DL Document 09/10/24 09:26 RB [id number] 09/10/24 09:28 RB 08/20/24 08/27/24 09/03/24 08:56 09:57 10:52 Wound Care Center Nurse 3 5-left 4th toe -Ulcer Cleansing Betadine -Other Dressing betadine soaked gauze packed -Primary Dressing Covered/Secured with Dry Gauze Dry Gauze, Secured with Tape 4 LT LAT FOOT -Foul Odor after Cleansing No -Other Dressing packed tunnel Epifix with betadine gauze -Primary Dressing Covered/Secured with Dry Gauze & Dry Gauze & Dry Gauze,Dry Roll Gauze, Roll Gauze, Gauze & Roll Secured with Secured with Gauze,Secured Tape Tape with Tape -Other Covering ABD Left -Compression Wrap Freddie Wrap Freddie Wrap Freddie Wrap -Other 2 Treatment Response Procedure Tolerated Well Pain Scale: 0-10 Numeric Is Patient Pain Free? Yes Yes Yes - Visit Discharge Discharge Condition Stable Stable Stable Ambulatory Status Wheelchair Wheelchair Ambulatory, Wheelchair Transportation Private Auto Medication Reconcilliation completed & No No provided to patient/care provider Clinical Summary of Care Provided Yes Yes Facility Type Home Health Orders Sent Yes 4 LT LAT FOOT -Other Dressing -Primary Dressing Covered/Secured with Left -Other Treatment Response 09/10/24 09:26 Wound Care Center Nurse 3 5-left 4th toe -Ulcer Cleansing -Other Dressing -Primary Dressing Covered/Secured with 4 LT LAT FOOT -Foul Odor after Cleansing -Other Dressing -Primary Dressing Covered/Secured with -Other Covering Left -Compression Wrap -Other Treatment Response Pain Scale: 0-10 Numeric Is Patient Pain Free? Yes WC - Visit Discharge Discharge Condition Stable Ambulatory Status Ambulatory Transportation Private Auto Medication Reconcilliation completed & No provided to patient/care provider Clinical Summary of Care Provided Yes Facility Type Orders Sent 4 LT LAT FOOT -Other Dressing ABD -Primary Dressing Covered/Secured with Dry Gauze,Dry Gauze & Roll Gauze,Secured with Tape Left -Other freddie Treatment Response Procedure Tolerated Well Assessment/Plan Assessment/Plan (1) Non-pressure chronic ulcer of other part of left foot with bone involvement without evidence of necrosis: CODE(S): L97.526 - Non-pressure chronic ulcer of other part of left foot with bone involvement without evidence of necrosis PLAN: Patient was examined and evaluated. All findings were discussed with the patient. All questions were answered to the patient's satisfaction. Excisional debridement down to and including subcutaneous tissue, fascia, tendon and bone of the left foot with a number 7 mm dermal curette without incident. Predebridement measurement was 8.8 x 1.5 x 0.1 cm. Postdebridement measurement is 9.0 x 1.7 x 0.1 cm. EpiFix mesh 4.0 x 4.5 cm was applied to the left full-thickness ulceration with 100% use. Fourth application. The graft site was free and clear of any infection. The wound/skin graft substitute was dressed with nonadherent bandage secured in place with Steri-Strips followed by bolster dressing as well as a double layer Tubigrip. Follow-up at the wound care center with Dr. Barnett in 1 week.
--- NOTE | 2024-09-10 16:11 | WC ---
PHOTO 09/10/24 LEFT 4TH TOE
--- NOTE | 2024-09-10 16:12 | WC ---
PHOTO 09/10/24 LEFT FLAT FOOT
== END 2024-09-12 23:59 | disposition home or self-care (01) ==
LOC: WC 08:30
PROVIDERS: PCP Family Medicine; Referring Provider Podiatrist; Visit Provider Podiatrist Foot & Ankle Surgery
DX: E11.621 Type 2 diabetes mellitus with foot ulcer (principal); L97.526 Non-pressure chronic ulcer of other part of left foot with bone involvement without evidence of necrosis; Z79.4 Long term (current) use of insulin; E11.51 Type 2 diabetes mellitus with diabetic peripheral angiopathy without gangrene; B96.5 Pseudomonas (aeruginosa) (mallei) (pseudomallei) as the cause of diseases classified elsewhere; Z79.02 Long term (current) use of antithrombotics/antiplatelets; Z79.82 Long term (current) use of aspirin; Z79.84 Long term (current) use of oral hypoglycemic drugs; Z79.890 Hormone replacement therapy; Z79.899 Other long term (current) drug therapy
CPT/HCPCS: 11042; 11044; 15275; Q4186

== ENCOUNTER → 2024-10-02 | Outpatient (CLI) | payer MEDICARE, SELFPAY ==
[2024-10-02 12:29] LABS: Hemoglobin A1c 6.6 % (<=5.6)
[2024-10-02 12:39] LABS: Cholesterol 73 mg/dL (<=200); High Density Lipoprotein 30 mg/dL; Low Density Lipoprotein Calc. 21 mg/dL; Thyroid Stim Hormone (TSH) 0.788 uIU/mL (0.300-4.200); Triglycerides 111 mg/dL; Very Low Density Lipoprotein 22 mg/dL (5-40); cholesterol:hdl ratio screen 2.45
== END | disposition home or self-care (01) ==
LOC: BFHLAB 09:05
PROVIDERS: PCP Family Medicine; Visit Provider Family Medicine
DX: E11.51 Type 2 diabetes mellitus with diabetic peripheral angiopathy without gangrene (principal); E03.9 Hypothyroidism, unspecified
CPT/HCPCS: 36415; 80061; 83036; 84443

== ENCOUNTER 2024-10-08 08:45 | Outpatient (RCR) | payer MEDICARE, SELFPAY ==
[2024-09-13 01:13] VITALS: BP 144/60; PULSE 79; RESP 18; TEMP 36.1; BMI 35.7
[2024-09-17 10:14] VITALS: BP 165/87; PULSE 83; RESP 18; TEMP 36.2; BMI 35.7
--- NOTE | 2024-09-17 11:00 | PN.PCM_ITS ---
History of Present Illness Date of Service: 09/17/24 Chief Complaint: Left foot full-thickness wound History of Wound: Stable left foot wound with amniotic graft substitute. Progress of Wound: Stable full-thickness wound left foot no sign of infection. Subjective Subjective Mr. Palacios is a 74-year-old diabetic male presenting to wound care center today for follow-up evaluation of full-thickness wound to left foot. He has left the dressing clean dry and intact. His blood sugar is hovering around 90 mg/dL. He denies any pain to left foot. He has been ambulatory as tolerated with needed. Denies constitutional symptoms. No other pedal complaints at this time. Objective Data Objective Data Vital Signs: Vital Signs Temp Pulse Resp BP O2 Del Method 97.1 F L 83 18 165/87 H Room Air 09/17/24 10:14 09/17/24 10:14 09/17/24 10:14 09/17/24 10:14 09/17/24 10:14 Oxygen Delivery Method Room Air Weight: 122.924 kg Body Mass Index (BMI) 35.7 Physical Exam Narrative Vascular: DP and PT pulses are faintly palpable to left extremity. CFT is brisk. No erythema. skin temp great is warm to warm from proximal ankles to distal digits to left lower extremity. Nonpitting edema appreciated left lower extremity. Neurological: Light touch intact. Protective station is absent. Dermatological: Full-thickness wound to the lateral left foot secondary to amputation measuring 9.0 x 1.4 x 0.1 cm. Wound base is granular. No drainage or sign of infection. No tunneling. No malodor. No probe to bone. Excisional debridement down to and including subcutaneous tissue, fascia, tendon and bone of the left foot with a number 7 mm dermal curette without incident. Predebridement measurement was 8.7 x 1.2 x 0.1 cm. Postdebridement measurement is 9.0 x 1.4 x 0.1 cm. EpiFix mesh 4.0 x 4.5 cm was applied to the left full-thickness ulceration with 100% use. Fifth application. The graft site was free and clear of any infection. The wound/skin graft substitute was dressed with nonadherent bandage secured in place with Steri-Strips followed by bolster dressing as well as a double layer Tubigrip. Musculoskeletal: No pain on palpation to the full-thickness wound to the left foot. No pain with calf pressure. Debridement Note Debridement Note Debridement Free Text: Excisional debridement down to and including subcutaneous tissue, fascia, tendon and bone of the left foot with a number 7 mm dermal curette without incident. Predebridement measurement was 8.7 x 1.2 x 0.1 cm. Postdebridement measurement is 9.0 x 1.4 x 0.1 cm. EpiFix mesh 4.0 x 4.5 cm was applied to the left full-thickness ulceration with 100% use. Fifth application. The graft site was free and clear of any infection. The wound/skin graft substitute was dressed with nonadherent bandage secured in place with Steri-Strips followed by bolster dressing as well as a double layer Tubigrip. Post-Debridement Measurements and Additional Note: Post-Debridement Measurements/Treatment - Nurse 1 - General Ulcer Assessment Start: 09/17/24 10:13 Freq: Status: Active Protocol: FIDENCIO Activity Type Activity Date Activity User E-sign Co-sign Detail Recorded Client Recorded Date Recorded By Document 09/17/24 10:14 KW [id number] 09/17/24 10:16 KW 09/17/24 10:14 - Today's Visit Information Type of service Initial Visit Arrival Mode Wheelchair Patient Identification Verified (Name & Yes ) Height and Weight Body Mass Index (BMI) 35.7 BMI Classification Obese Vital Signs Temperature (97.8 F-99.1 F) 97.1 F L Temperature Source Temporal Pulse Rate (60-100) 83 Pulse Location Monitor Respiratory Rate (12-18) 18 Respiratory rate source Observation Oxygen Delivery Method Room Air Blood Pressure (90/60-120/80) 165/87 H Blood Pressure Mean (mm Hg) 113 Source Monitor Position Semi-Fowlers Blood Pressure Location Left Arm History Since Last Visit- (Skip if this is Patient's initial visit) Have you changed medications since your No last visit? Any new allergies or adverse reactions No Had a fall/change in ADL's that may No increase risk of falls Signs or symptoms of abuse and/or No neglect since last visit Have you been in the hospital since your No last visit? Has dressing in place as prescribed Yes Has compression in place as prescribed Yes Has offloadiing in place as prescribed Yes Experienced any changes in pain level or No management Left Footwear No Footwear Right Footwear No Footwear Pain Scale: 0-10 Numeric Is Patient Pain Free? Yes - Nurse 1 - General Ulcer Measurement Start: 09/17/24 10:13 Freq: Status: Active Protocol: Activity Type Activity Date Activity User E-sign Co-sign Detail Recorded Client Recorded Date Recorded By Document 09/17/24 10:14 ELINA [id number] 09/17/24 10:16 ELINA 09/17/24 10:14 Wound Center Nurse 1 4 LT LAT FOOT -Current Size (cm) - Length 8.7 -Current Size (cm) - Width 1.2 -Current Size (cm) - Depth 0.2 -Total Square Cm 10.44 -Date of Last Picture (Recall this 09/17/24 field) -Undermining/Tunneling Yes -Undermining/Tunneling Starts (O'clock 9 ) -Undermining/Tunneling Ends (O'clock) 11 -Maximum Distance (cm) 0.5 -Exudate Type Serosanguineous -Wound Margin Distinct, Outline Attached -Granulation Amt Large (67-100%) -Granulation Quality [place] -Necrosis Amt Small (1-33%) -Necrotic Tissue Type Adherent Slough -Texture (Maxine-wound Skin Appearance) Assessed -Moisture (Maxine-wound Skin Appearance) Assessed -Color (Maxine-wound Skin Appearance) Assessed -Temperature (Maxine-wound Skin No Abnormality Appearance) (Pt Warm) -Tenderness on Palpation (Maxine-wound No Skin Appearance) -Ulcer Cleansing Soap and Water -Foul Odor after Cleansing No -Anesthetic Used 4% Lidocaine Solution - Nurse 2 - General Ulcer CM Notes Start: 09/17/24 10:13 Freq: Status: Active Protocol: Activity Type Activity Date Activity User E-sign Co-sign Detail Recorded Client Recorded Date Recorded By Document 09/17/24 10:32 [email or web address] [id number] 09/17/24 10:37 AISHWARYA 09/17/24 10:32 Wound Center Nurse 2 -Time 10:32 -Correct Patient Yes -Correct Side, Site, Position Yes -Correct Procedure Yes -Procedure Performed Yes -Type of Procedure Debridement -Clinical Debridement Subcutaneous -Tissue Removed Subcutaneous -Post Debridement (cm) - Length 1.4 -Post Debridement (cm) - Width 9 -Post Debridement (cm) - Depth 0.1 -Total Square (Post) (cm) 12.6 -Area of Debridement (cm) - Length 1.4 -Area of Debridement (cm) - Width 9 -Total Square (Area) (cm) 12.6 -Tunneling No -Undermining/Tunneling No -Circular Undermining No -Wound/Ulcer Outcome Not Healed -Ulcer Cleansing Rinsed/ Irrigated with Saline -Foul Odor after Cleansing No -Bioengineered Tissue Yes -Type of Bioengineered Tissue Epifix Mesh -Expiration Date 02/13/29 -Product Lot Number [id number] -Percent Used 100 -Lot number of Saline Used [id number] -Bleeding Controlled with Pressure -Treatment Response Procedure Tolerated Well -Offloading Yes -Type of Offloading Surgical Shoe -Debridement - Subq, 1st 20sq cm No -Apply Skin Sub - 1st 25 sq cm - Feet 1 -Epifix Mesh (per sq cm) 11 Pain Scale: 0-10 Numeric Is Patient Pain Free? Yes WC - Nurse 3 - General Ulcer D/C NN Start: 09/17/24 10:13 Freq: Status: Active Protocol: Activity Type Activity Date Activity User E-sign Co-sign Detail Recorded Client Recorded Date Recorded By Document 09/17/24 10:54 ML [id number] 09/17/24 10:55 ML 09/17/24 10:54 Wound Care Center Nurse 3 4 LT LAT FOOT -Other Dressing abd, sascha from foot to knee -Primary Dressing Covered/Secured with Dry Gauze, Secured with Tape Pain Scale: 0-10 Numeric Is Patient Pain Free? Yes Assessment/Plan Assessment/Plan (1) Non-pressure chronic ulcer of other part of left foot with bone involvement without evidence of necrosis: CODE(S): L97.526 - Non-pressure chronic ulcer of other part of left foot with bone involvement without evidence of necrosis PLAN: Patient was examined and evaluated. All findings were discussed with the patient. All questions were answered to the patient's satisfaction. Excisional debridement down to and including subcutaneous tissue, fascia, tendon and bone of the left foot with a number 7 mm dermal curette without incident. Predebridement measurement was 8.7 x 1.2 x 0.1 cm. Postdebridement measurement is 9.0 x 1.4 x 0.1 cm. EpiFix mesh 4.0 x 4.5 cm was applied to the left full-thickness ulceration with 100% use. Fifth application. The graft site was free and clear of any infection. The wound/skin graft substitute was dressed with nonadherent bandage secured in place with Steri-Strips followed by bolster dressing as well as a double layer Tubigrip. Patient will continue to ambulate as tolerated in surgical shoe. He will continue strict blood sugar control. Follow-up at the wound care center with Dr. Barnett in 1 week.
--- NOTE | 2024-09-17 15:01 | WC ---
PHOTO 09/17/24 LEFT FOOT LATERAL
[2024-09-24 10:33] VITALS: BP 163/76; PULSE 70; RESP 16; TEMP 36.1; BMI 35.7
--- NOTE | 2024-09-24 13:10 | PN.PCM_ITS ---
History of Present Illness Date of Service: 09/17/24 Chief Complaint: Left foot full-thickness wound History of Wound: Stable left foot wound with amniotic graft substitute. Progress of Wound: Stable full-thickness wound left foot no sign of infection. Subjective Subjective Mr. Palacios is a 74-year-old diabetic male presenting to wound care center today for follow-up evaluation of full-thickness wound to left foot. He has left the dressing clean dry and intact. His blood sugar is hovering around 90 mg/dL. He denies any pain to left foot. He has been ambulatory as tolerated with needed. Denies constitutional symptoms. No other pedal complaints at this time. Objective Data Objective Data Vital Signs: Vital Signs Temp Pulse Resp BP O2 Del Method 96.9 F L 70 16 163/76 H Room Air 09/24/24 10:33 09/24/24 10:33 09/24/24 10:33 09/24/24 10:33 09/24/24 10:33 Oxygen Delivery Method Room Air Weight: 122.924 kg Body Mass Index (BMI) 35.7 Physical Exam Narrative Vascular: DP and PT pulses are faintly palpable to left extremity. CFT is brisk. No erythema. skin temp great is warm to warm from proximal ankles to distal digits to left lower extremity. Nonpitting edema appreciated left lower extremity. Neurological: Light touch intact. Protective station is absent. Dermatological: Full-thickness wound to the lateral left foot secondary to amputation measuring 1.1 x 8.2 x 0.1 cm. Wound base is granular. No drainage or sign of infection. No tunneling. No malodor. No probe to bone. Excisional debridement down to and including subcutaneous tissue, fascia, tendon and bone of the left foot with a number 7 mm dermal curette without incident. Predebridement measurement was 0.8 x 8.0 x 0.1 cm. Postdebridement measurement is 1.1 x 8.2 x 0.1 cm. EpiFix mesh 4.0 x 4.5 cm was applied to the left full-thickness ulceration with 100% use. Sixth application. The graft site was free and clear of any infection. The wound/skin graft substitute was dressed with nonadherent bandage secured in place with Steri-Strips followed by bolster dressing as well as a double layer Tubigrip. Musculoskeletal: No pain on palpation to the full-thickness wound to the left foot. No pain with calf pressure. Debridement Note Debridement Note Debridement Free Text: Excisional debridement down to and including subcutaneous tissue, fascia, tendon and bone of the left foot with a number 7 mm dermal curette without incident. Predebridement measurement was 0.8 x 8.0 x 0.1 cm. Postdebridement measurement is 1.1 x 8.2 x 0.1 cm. EpiFix mesh 4.0 x 4.5 cm was applied to the left full-thickness ulceration with 100% use. Sixth application. The graft site was free and clear of any infection. The wound/skin graft substitute was dressed with nonadherent bandage secured in place with Steri-Strips followed by bolster dressing as well as a double layer Tubigrip. Post-Debridement Measurements and Additional Note: Post-Debridement Measurements/Treatment WC - Nurse 1 - General Ulcer Assessment Start: 09/17/24 10:13 Freq: Status: Active Protocol: FIDENCIO Activity Type Activity Date Activity User E-sign Co-sign Detail Recorded Client Recorded Date Recorded By Document 09/17/24 10:14 KW [id number] 09/17/24 10:16 KW Document 09/24/24 10:33 [id number] 09/24/24 10:35 09/17/24 09/24/24 10:14 10:33 - Today's Visit Information Type of service Initial Visit Follow-up Visit (Physician/[employer] ) Arrival Mode Wheelchair Ambulatory Transfer Assistance None Patient Identification Verified (Name & Yes Yes ) Height and Weight Body Mass Index (BMI) 35.7 35.7 BMI Classification Obese Obese Vital Signs Temperature (97.8 F-99.1 F) 97.1 F L 96.9 F L Temperature Source Temporal Temporal Pulse Rate (60-100) 83 70 Pulse Location Monitor Monitor Respiratory Rate (12-18) 18 16 Respiratory rate source Observation Observation Oxygen Delivery Method Room Air Room Air Blood Pressure (90/60-120/80) 165/87 H 163/76 H Blood Pressure Mean (mm Hg) 113 105 Source Monitor Monitor Position Semi-Fowlers Sitting Blood Pressure Location Left Arm Left Arm History Since Last Visit- (Skip if this is Patient's initial visit) Have you changed medications since your No No last visit? Any new allergies or adverse reactions No No Had a fall/change in ADL's that may No No increase risk of falls Signs or symptoms of abuse and/or No No neglect since last visit Have you been in the hospital since your No No last visit? Has dressing in place as prescribed Yes Yes Has compression in place as prescribed Yes Yes Has offloadiing in place as prescribed Yes Yes Experienced any changes in pain level or No No management Left Footwear No Footwear Right Footwear No Footwear Pain Scale: 0-10 Numeric Is Patient Pain Free? Yes Yes WC - Nurse 1 - General Ulcer Measurement Start: 09/17/24 10:13 Freq: Status: Active Protocol: Activity Type Activity Date Activity User E-sign Co-sign Detail Recorded Client Recorded Date Recorded By Document 09/17/24 10:14 KW [id number] 09/17/24 10:16 KW Document 09/24/24 10:33 GM [id number] 09/24/24 10:35 GM 09/17/24 09/24/24 10:14 10:33 Wound Center Nurse 1 4 LT LAT FOOT -Current Size (cm) - Length 8.7 1.5 -Current Size (cm) - Width 1.2 8.0 -Current Size (cm) - Depth 0.2 0.1 -Total Square Cm 10.44 12.00 -Date of Last Picture (Recall this 09/17/24 09/24/24 field) -Photo Taken Yes -Epithelialization Small 1-33% -Tunneling No -Undermining/Tunneling Yes No -Undermining/Tunneling Starts (O'clock 9 ) -Undermining/Tunneling Ends (O'clock) 11 -Maximum Distance (cm) 0.5 -Circular Undermining No -Exudate Amt Medium -Exudate Type Serosanguineous Serosanguineous -Wound Margin Distinct, Distinct, Outline Outline Attached Attached -Granulation Amt Large (67-100%) Medium (34-66%) -Granulation Quality [place] Red -Slough/Fibrin Yes -Necrosis Amt Small (1-33%) Small (1-33%) -Necrotic Tissue Type Adherent Slough -Texture (Maxine-wound Skin Appearance) Assessed Assessed -Moisture (Maxine-wound Skin Appearance) Assessed Assessed -Color (Maxine-wound Skin Appearance) Assessed Assessed -Temperature (Maxine-wound Skin No Abnormality No Abnormality Appearance) (Pt Warm) (Pt Warm) -Tenderness on Palpation (Maxine-wound No No Skin Appearance) -Ulcer Cleansing Soap and Water Soap and Water -Foul Odor after Cleansing No No -Anesthetic Used 4% Lidocaine 5% Lidocaine Solution Gel Lower Limb Edema Present No Left Calf (cm) 39.5 Left Ankle (cm) 24.4 WC - Nurse 2 - General Ulcer CM Notes Start: 09/17/24 10:13 Freq: Status: Active Protocol: Activity Type Activity Date Activity User E-sign Co-sign Detail Recorded Client Recorded Date Recorded By Document 09/17/24 10:32 [id number] 09/17/24 10:37 Document 09/24/24 10:46 [id number] 09/24/24 10:52 09/17/24 09/24/24 10:32 10:46 Wound Center Nurse 2 4 LT LAT FOOT -Time 10:32 10:49 -Correct Patient Yes Yes -Correct Side, Site, Position Yes Yes -Correct Procedure Yes Yes -Procedure Performed Yes Yes -Type of Procedure Debridement Debridement -Clinical Debridement Subcutaneous Subcutaneous -Tissue Removed Subcutaneous Subcutaneous -Post Debridement (cm) - Length 1.4 1.1 -Post Debridement (cm) - Width 9 8.2 -Post Debridement (cm) - Depth 0.1 0.1 -Total Square (Post) (cm) 12.6 9.02 -Area of Debridement (cm) - Length 1.4 1.1 -Area of Debridement (cm) - Width 9 8.2 -Total Square (Area) (cm) 12.6 9.02 -Tunneling No No -Undermining/Tunneling No No -Circular Undermining No No -Wound/Ulcer Outcome Not Healed Not Healed -Ulcer Cleansing Rinsed/ Rinsed/ Irrigated with Irrigated with Saline Saline -Foul Odor after Cleansing No No -Bioengineered Tissue Yes Yes -Type of Bioengineered Tissue Epifix Mesh Epifix Mesh -Expiration Date 02/13/29 03/16/29 -Product Lot Number [id number] -Percent Used 100 100 -Lot number of Saline Used [id number] -Bleeding Controlled with Pressure Pressure -Treatment Response Procedure Procedure Tolerated Well Tolerated Well -Offloading Yes Yes -Type of Offloading Surgical Shoe Surgical Shoe -Debridement - Subq, 1st 20sq cm No No -Apply Skin Sub - 1st 25 sq cm - Feet 1 1 -Epifix Mesh (per sq cm) 11 11 Pain Scale: 0-10 Numeric Is Patient Pain Free? Yes Yes WC - Nurse 3 - General Ulcer D/C NN Start: 09/17/24 10:13 Freq: Status: Active Protocol: Activity Type Activity Date Activity User E-sign Co-sign Detail Recorded Client Recorded Date Recorded By Document 09/17/24 10:54 ML [id number] 09/17/24 10:55 ML Document 09/24/24 11:03 DL [id number] 09/24/24 11:04 DL 09/17/24 09/24/24 10:54 11:03 Wound Care Center Nurse 3 4 LT LAT FOOT -Ulcer Cleansing Not Cleansed -Foul Odor after Cleansing No -Other Dressing abd, lisa from EPifix foot to knee -Primary Dressing Covered/Secured with Dry Gauze, Dry Gauze & Secured with Roll Gauze, Tape Secured with Tape -Other Covering LISA Treatment Response Procedure Tolerated Well Pain Scale: 0-10 Numeric Is Patient Pain Free? Yes Yes - Visit Discharge Discharge Condition Stable Ambulatory Status Wheelchair Transportation Private Auto Facility Type Skilled Nursing Care Facility Orders Sent Yes Assessment/Plan Assessment/Plan (1) Non-pressure chronic ulcer of other part of left foot with bone involvement without evidence of necrosis: CODE(S): L97.526 - Non-pressure chronic ulcer of other part of left foot with bone involvement without evidence of necrosis PLAN: Patient was examined and evaluated. All findings were discussed with the patient. All questions were answered to the patient's satisfaction. Excisional debridement down to and including subcutaneous tissue, fascia, tendon and bone of the left foot with a number 7 mm dermal curette without incident. Predebridement measurement was 0.8 x 8.0 x 0.1 cm. Postdebridement measurement is 1.1 x 8.2 x 0.1 cm. EpiFix mesh 4.0 x 4.5 cm was applied to the left full-thickness ulceration with 100% use. Sixth application. The graft site was free and clear of any infection. The wound/skin graft substitute was dressed with nonadherent bandage secured in place with Steri-Strips followed by bolster dressing as well as a double layer Tubigrip. Patient will continue to ambulate as tolerated in surgical shoe. He will continue strict blood sugar control. Follow-up at the wound care center with Dr. Barnett in 1 week.
--- NOTE | 2024-09-25 09:46 | WC ---
PHOTO 09/24/24 LEFT LATERAL FOOT
[2024-10-01 09:00] VITALS: BMI 35.7
[2024-10-01 09:06] VITALS: BP 146/71; PULSE 70; RESP 18; TEMP 36.1; BMI 35.7
--- NOTE | 2024-10-01 10:51 | PN.PCM_ITS ---
History of Present Illness Date of Service: 10/01/24 Chief Complaint: Left foot full-thickness wound History of Wound: Stable left foot wound with amniotic graft substitute. Progress of Wound: Stable full-thickness wound left foot no sign of infection. Subjective Subjective Mr. Palacios is a 74-year-old diabetic male presented wound care center today for follow-up evaluation of full-thickness wound and amniotic skin graft substitute to left lower extremity. Patient has left his graft and dressing clean dry and intact. His blood sugars well-controlled. Denies trauma. Or aggressive we ightbearing. Denies constitutional symptoms. No other pedal complaints at this time. Objective Data Objective Data Vital Signs: Vital Signs Temp Pulse Resp BP O2 Del Method 97 F L 70 18 146/71 H Room Air 10/01/24 09:06 10/01/24 09:06 10/01/24 09:06 10/01/24 09:06 10/01/24 09:06 Oxygen Delivery Method Room Air Weight: 122.924 kg Body Mass Index (BMI) 35.7 Physical Exam Narrative Vascular: DP and PT pulses are faintly palpable to left extremity. CFT is brisk. No erythema. skin temp great is warm to warm from proximal ankles to distal digits to left lower extremity. Nonpitting edema appreciated left lower extremity. Neurological: Light touch intact. Protective station is absent. Dermatological: Full-thickness wound to the lateral left foot secondary to amputation measuring 1.2 x 7.0 x 0.1 cm wound base is granular. No drainage or sign of infection. No tunneling. No malodor. No probe to bone. Excisional debridement down to and including subcutaneous tissue, fascia, tendon and bone of the left foot with a number 7 mm dermal curette without incident. Predebridement measurement was 0.9 x 6.8 x 0.1 cm. Postdebridement measurement is 1.2 x 7.0 x 0.1 cm. EpiFix mesh 4.0 x 4.5 cm was applied to the left full-thickness ulceration with 100% use. Seventh application. The graft site was free and clear of any infection. The wound/skin graft substitute was dressed with nonadherent bandage secured in place with Steri-Strips followed by bolster dressing as well as a double layer Tubigrip. Musculoskeletal: No pain on palpation to the full-thickness wound to the left foot. No pain with calf pressure. Debridement Note Debridement Note Debridement Free Text: Excisional debridement down to and including subcutaneous tissue, fascia, tendon and bone of the left foot with a number 7 mm dermal curette without incident. Predebridement measurement was 0.9 x 6.8 x 0.1 cm. Postdebridement measurement is 1.2 x 7.0 x 0.1 cm. EpiFix mesh 4.0 x 4.5 cm was applied to the left full-thickness ulceration with 100% use. Seventh application. The graft site was free and clear of any infection. The wound/skin graft substitute was dressed with nonadherent bandage secured in place with Steri-Strips followed by bolster dressing as well as a double layer Tubigrip. Post-Debridement Measurements and Additional Note: Post-Debridement Measurements/Treatment - Nurse 1 - General Ulcer Assessment Start: 09/17/24 10:13 Freq: Status: Active Protocol: .DAVISEXClaudette Activity Type Activity Date Activity User E-sign Co-sign Detail Recorded Client Recorded Date Recorded By Document 09/17/24 10:14 KW [id number] 09/17/24 10:16 KW Document 09/24/24 10:33 GM [id number] 09/24/24 10:35 GM Document 10/01/24 09:00 MT [id number] 10/01/24 09:04 MT Document 10/01/24 09:06 MT [id number] 10/01/24 09:06 MT 09/17/24 09/24/24 10/01/24 10:14 10:33 09:00 - Today's Visit Information Type of service Initial Visit Follow-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 ) Arrival Mode Wheelchair Ambulatory Transfer Assistance None Accompanied by Patient Identification Verified (Name & Yes Yes ) Safety Precautions Height and Weight Body Mass Index (BMI) 35.7 35.7 35.7 BMI Classification Obese Obese Obese Vital Signs Temperature (97.8 F-99.1 F) 97.1 F L 96.9 F L Temperature Source Temporal Temporal Pulse Rate (60-100) 83 70 Pulse Location Monitor Monitor Respiratory Rate (12-18) 18 16 Respiratory rate source Observation Observation Oxygen Delivery Method Room Air Room Air Blood Pressure (90/60-120/80) 165/87 H 163/76 H Blood Pressure Mean (mm Hg) 113 105 Source Monitor Monitor Position Semi-Fowlers Sitting Blood Pressure Location Left Arm Left Arm History Since Last Visit- (Skip if this is Patient's initial visit) Have you changed medications since your No No last visit? Any new allergies or adverse reactions No No Had a fall/change in ADL's that may No No increase risk of falls Signs or symptoms of abuse and/or No No neglect since last visit Have you been in the hospital since your No No last visit? Has dressing in place as prescribed Yes Yes Has compression in place as prescribed Yes Yes Has offloadiing in place as prescribed Yes Yes Experienced any changes in pain level or No No management Left Footwear No Footwear Right Footwear No Footwear Pain Scale: 0-10 Numeric Is Patient Pain Free? 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 ) Arrival Mode Ambulatory, Wheelchair Transfer Assistance Accompanied by self Patient Identification Verified (Name & Yes ) Safety Precautions Fall Prevention Height and Weight Body Mass Index (BMI) 35.7 BMI Classification Obese Vital Signs Temperature (97.8 F-99.1 F) 97 F L Temperature Source Temporal Pulse Rate (60-100) 70 Pulse Location Monitor Respiratory Rate (12-18) 18 Respiratory rate source Observation Oxygen Delivery Method Room Air Blood Pressure (90/60-120/80) 146/71 H Blood Pressure Mean (mm Hg) 96 Source Monitor Position Sitting Blood Pressure Location Left Arm History Since Last Visit- (Skip if this is Patient's initial visit) Have you changed medications since your last visit? Any new allergies or adverse reactions Had a fall/change in ADL's that may increase risk of falls Signs or symptoms of abuse and/or neglect since last visit Have you been in the hospital since your last visit? Has dressing in place as prescribed Yes Has compression in place as prescribed Yes Has offloadiing in place as prescribed Yes Experienced any changes in pain level or Yes management Left Footwear No Footwear Right Footwear No Footwear Pain Scale: 0-10 Numeric Is Patient Pain Free? Yes - Nurse 1 - General Ulcer Measurement Start: 09/17/24 10:13 Freq: Status: Active Protocol: Activity Type Activity Date Activity User E-sign Co-sign Detail Recorded Client Recorded Date Recorded By Document 09/17/24 10:14 KW [id number] 09/17/24 10:16 KW Document 09/24/24 10:33 GM [id number] 09/24/24 10:35 GM Document 10/01/24 09:00 MT [id number] 10/01/24 09:04 MT 09/17/24 09/24/24 10/01/24 10:14 10:33 09:00 Wound Center Nurse 1 4 LT LAT FOOT -Current Size (cm) - Length 8.7 1.5 9 -Current Size (cm) - Width 1.2 8.0 1.5 -Current Size (cm) - Depth 0.2 0.1 0.2 -Total Square Cm 10.44 12.00 13.5 -Date of Last Picture (Recall this 09/17/24 09/24/24 field) -Photo Taken Yes -Epithelialization Small 1-33% -Tunneling No -Tunneling Position (O'clock) 12 -Tunneling Distance (cm) 0.5 -Undermining/Tunneling Yes No Yes -Undermining/Tunneling Starts (O'clock 9 9 ) -Undermining/Tunneling Ends (O'clock) 11 12 -Maximum Distance (cm) 0.5 0.3 -Circular Undermining No -Exudate Amt Medium Medium -Exudate Type Serosanguineous Serosanguineous Serosanguineous -Wound Margin Distinct, Distinct, Well Defined, Outline Outline Not Attached Attached Attached -Granulation Amt Large (67-100%) Medium (34-66%) Large (67-100%) -Granulation Quality [place] Red Pale,[place] -Slough/Fibrin Yes -Necrosis Amt Small (1-33%) Small (1-33%) Small (1-33%) -Necrotic Tissue Type Adherent Slough Adherent Slough -Texture (Maxine-wound Skin Appearance) Assessed Assessed Assessed -Moisture (Maxine-wound Skin Appearance) Assessed Assessed Assessed -Color (Maxine-wound Skin Appearance) Assessed Assessed Assessed -Temperature (Maxine-wound Skin No Abnormality No Abnormality No Abnormality Appearance) (Pt Warm) (Pt Warm) (Pt Warm) -Tenderness on Palpation (Maxine-wound No No No Skin Appearance) -Ulcer Cleansing Soap and Water Soap and Water Soap and Water -Foul Odor after Cleansing No No No -Anesthetic Used 4% Lidocaine 5% Lidocaine 4% Lidocaine Solution Gel Solution Lower Limb Edema Present No NA Left Calf (cm) 39.5 Left Ankle (cm) 24.4 WC - Nurse 2 - General Ulcer CM Notes Start: 09/17/24 10:13 Freq: Status: Active Protocol: Activity Type Activity Date Activity User E-sign Co-sign Detail Recorded Client Recorded Date Recorded By Document 09/17/24 10:32 [id number] 09/17/24 10:37 Document 09/24/24 10:46 [id number] 09/24/24 10:52 JF Document 10/01/24 09:21 [id number] 10/01/24 09:25 JF 09/17/24 09/24/24 10/01/24 10:32 10:46 09:21 Wound Center Nurse 2 4 LT LAT FOOT -Time 10:32 10:49 09:22 -Correct Patient Yes Yes Yes -Correct Side, Site, Position Yes Yes Yes -Correct Procedure Yes Yes Yes -Procedure Performed Yes Yes Yes -Type of Procedure Debridement Debridement Debridement -Clinical Debridement Subcutaneous Subcutaneous Subcutaneous -Tissue Removed Subcutaneous Subcutaneous Subcutaneous -Post Debridement (cm) - Length 1.4 1.1 1.2 -Post Debridement (cm) - Width 9 8.2 7 -Post Debridement (cm) - Depth 0.1 0.1 0.1 -Total Square (Post) (cm) 12.6 9.02 8.4 -Area of Debridement (cm) - Length 1.4 1.1 1.2 -Area of Debridement (cm) - Width 9 8.2 7 -Total Square (Area) (cm) 12.6 9.02 8.4 -Tunneling No No No -Undermining/Tunneling No No No -Circular Undermining No No No -Wound/Ulcer Outcome Not Healed Not Healed Not Healed -Ulcer Cleansing Rinsed/ Rinsed/ Rinsed/ Irrigated with Irrigated with Irrigated with Saline Saline Saline -Foul Odor after Cleansing No No No -Bioengineered Tissue Yes Yes Yes -Type of Bioengineered Tissue Epifix Mesh Epifix Mesh Epifix Mesh -Expiration Date 02/13/29 03/16/29 03/16/29 -Product Lot Number [id number] -Percent Used 100 100 100 -Lot number of Saline Used [id number] -Bleeding Controlled with Pressure Pressure Pressure -Treatment Response Procedure Procedure Procedure Tolerated Well Tolerated Well Tolerated Well -Offloading Yes Yes Yes -Type of Offloading Surgical Shoe Surgical Shoe Surgical Shoe -Debridement - Subq, 1st 20sq cm No No No -Apply Skin Sub - 1st 25 sq cm - Feet 1 1 1 -Epifix Mesh (per sq cm) 11 11 11 Pain Scale: 0-10 Numeric Is Patient Pain Free? Yes Yes Yes - Nurse 3 - General Ulcer D/C NN Start: 09/17/24 10:13 Freq: Status: Active Protocol: Activity Type Activity Date Activity User E-sign Co-sign Detail Recorded Client Recorded Date Recorded By Document 09/17/24 10:54 ML [id number] 09/17/24 10:55 ML Document 09/24/24 11:03 DL [id number] 09/24/24 11:04 DL Document 10/01/24 09:49 CP [id number] 10/01/24 09:50 CP 09/17/24 09/24/24 10/01/24 10:54 11:03 09:49 Wound Care Center Nurse 3 4 LT LAT FOOT -Ulcer Cleansing Not Cleansed -Foul Odor after Cleansing No -Other Dressing abd, lisa from EPifix lisa wrap foot to knee -Primary Dressing Covered/Secured with Dry Gauze, Dry Gauze & Dry Gauze & Secured with Roll Gauze, Roll Gauze, Tape Secured with Secured with Tape Tape -Other Covering LISA Treatment Response Procedure Tolerated Well Pain Scale: 0-10 Numeric Is Patient Pain Free? Yes Yes Yes - Visit Discharge Discharge Condition Stable Stable Ambulatory Status Wheelchair Wheelchair Transportation Private Auto Private Auto Clinical Summary of Care Provided Yes Facility Type [facility] Facility Orders Sent Yes Yes Assessment/Plan Assessment/Plan (1) Non-pressure chronic ulcer of other part of left foot with bone involvement without evidence of necrosis: CODE(S): L97.526 - Non-pressure chronic ulcer of other part of left foot with bone involvement without evidence of necrosis PLAN: Patient was examined and evaluated. All findings were discussed with the patient. All questions were answered to the patient's satisfaction. Excisional debridement down to and including subcutaneous tissue, fascia, tendon and bone of the left foot with a number 7 mm dermal curette without incident. Predebridement measurement was 0.9 x 6.8 x 0.1 cm. Postdebridement measurement is 1.2 x 7.0 x 0.1 cm. EpiFix mesh 4.0 x 4.5 cm was applied to the left full-thickness ulceration with 100% use. Seventh application. The graft site was free and clear of any infection. The wound/skin graft substitute was dressed with nonadherent bandage secured in place with Steri-Strips followed by bolster dressing as well as a double layer Tubigrip. Patient will continue to ambulate as tolerated in surgical shoe. He will continue strict blood sugar control. Follow-up at the wound care center with Dr. Barnett in 1 week.
[2024-10-08 08:35] VITALS: BP 165/80; PULSE 84; RESP 15; TEMP 36.1; BMI 35.7
--- NOTE | 2024-10-08 10:01 | PCM.WC.PN ---
History of Present Illness Date of Service: 10/08/24 Chief Complaint: Left foot full-thickness wound History of Wound: Stable left foot wound with amniotic graft substitute. Progress of Wound: Stable full-thickness wound left foot no sign of infection. Subjective Subjective Mr. Palacios is a 74-year-old diabetic male presented wound care center today for follow-up evaluation of full-thickness wound to the left lateral foot. He has been compliant with dressing changes and left his dressing clean dry and intact. His blood sugar is well-controlled and his blood sugar today was 90 mg/dL. He denies any drainage. Denies any trauma. Denies constitutional symptoms. No other pedal complaints at this time. Objective Data Objective Data Vital Signs: Vital Signs Temp Pulse Resp BP O2 Del Method 97 F L 84 15 165/80 H Room Air 10/08/24 08:35 10/08/24 08:35 10/08/24 08:35 10/08/24 08:35 10/01/24 09:06 Oxygen Delivery Method Room Air Weight: 122.924 kg Body Mass Index (BMI) 35.7 Physical Exam Narrative Vascular: DP and PT pulses are faintly palpable to left extremity. CFT is brisk. No erythema. skin temp great is warm to warm from proximal ankles to distal digits to left lower extremity. Nonpitting edema appreciated left lower extremity. Neurological: Light touch intact. Protective station is absent. Dermatological: Full-thickness wound to the lateral left foot secondary to amputation measuring 1.2 x 5.5 x 0.1 cm. Wound base is granular. No drainage or sign of infection. No tunneling. No malodor. No probe to bone. Evidence of metallic foreign body to the plantar aspect of the left foot. No erythema drainage or sign of infection. Excisional debridement down to and including subcutaneous tissue, fascia, tendon and bone of the left foot with a number 7 mm dermal curette without incident. Predebridement measurement was 1.0 x 5.0 x 0.1 cm. Postdebridement measurement is 1.2 x 5.5 x 0.1 cm. EpiFix mesh 4.0 x 4.5 cm was applied to the left full-thickness ulceration with 100% use. Eighth application. The graft site was free and clear of any infection. The wound/skin graft substitute was dressed with nonadherent bandage secured in place with Steri-Strips followed by bolster dressing as well as a double layer Tubigrip. Topical anesthesia was applied to the foreign body and once anesthesia was confirmed using a #15 blade the metallic foreign body was removed measuring approximately 0.5 cm in length. Metallic foreign body was discarded and sharps. Musculoskeletal: No pain on palpation to the full-thickness wound to the left foot. No pain with calf pressure. Debridement Note Debridement Note Debridement Free Text: Excisional debridement down to and including subcutaneous tissue, fascia, tendon and bone of the left foot with a number 7 mm dermal curette without incident. Predebridement measurement was 1.0 x 5.0 x 0.1 cm. Postdebridement measurement is 1.2 x 5.5 x 0.1 cm. EpiFix mesh 4.0 x 4.5 cm was applied to the left full-thickness ulceration with 100% use. Eighth application. The graft site was free and clear of any infection. The wound/skin graft substitute was dressed with nonadherent bandage secured in place with Steri-Strips followed by bolster dressing as well as a double layer Tubigrip. Topical anesthesia was applied to the foreign body and once anesthesia was confirmed using a #15 blade the metallic foreign body was removed measuring approximately 0.5 cm in length. Metallic foreign body was discarded and sharps. Post-Debridement Measurements and Additional Note: Post-Debridement Measurements/Treatment - Nurse 1 - General Ulcer Assessment Start: 09/17/24 10:13 Freq: Status: Active Protocol: [email or web address] Activity Type Activity Date Activity User E-sign Co-sign Detail Recorded Client Recorded Date Recorded By Document 09/17/24 10:14 KW [id number] 09/17/24 10:16 KW Document 09/24/24 10:33 GM [id number] 09/24/24 10:35 GM Document 10/01/24 09:00 MT [id number] 10/01/24 09:04 MT Document 10/01/24 09:06 MT [id number] 10/01/24 09:06 MT Document 10/08/24 08:35 ML [id number] 10/08/24 08:37 ML 09/17/24 09/24/24 10/01/24 10:14 10:33 09:00 - Today's Visit Information Type of service Initial Visit Follow-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 ) Arrival Mode Wheelchair Ambulatory Transfer Assistance None Accompanied by Patient Identification Verified (Name & Yes Yes ) Safety Precautions Height and Weight Body Mass Index (BMI) 35.7 35.7 35.7 BMI Classification Obese Obese Obese Vital Signs Temperature (97.8 F-99.1 F) 97.1 F L 96.9 F L Temperature Source Temporal Temporal Pulse Rate (60-100) 83 70 Pulse Location Monitor Monitor Respiratory Rate (12-18) 18 16 Respiratory rate source Observation Observation Oxygen Delivery Method Room Air Room Air Blood Pressure (90/60-120/80) 165/87 H 163/76 H Blood Pressure Mean (mm Hg) 113 105 Source Monitor Monitor Position Semi-Fowlers Sitting Blood Pressure Location Left Arm Left Arm History Since Last Visit- (Skip if this is Patient's initial visit) Have you changed medications since your No No last visit? Any new allergies or adverse reactions No No Had a fall/change in ADL's that may No No increase risk of falls Signs or symptoms of abuse and/or No No neglect since last visit Have you been in the hospital since your No No last visit? Has dressing in place as prescribed Yes Yes Has compression in place as prescribed Yes Yes Has offloadiing in place as prescribed Yes Yes Experienced any changes in pain level or No No management Left Footwear No Footwear Right Footwear No Footwear Pain Scale: 0-10 Numeric Is Patient Pain Free? 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 ) Arrival Mode Ambulatory, Wheelchair Transfer Assistance Accompanied by self Patient Identification Verified (Name & Yes ) Safety Precautions Fall Prevention Height and Weight Body Mass Index (BMI) 35.7 35.7 BMI Classification Obese Obese Vital Signs Temperature (97.8 F-99.1 F) 97 F L 97 F L Temperature Source Temporal Temporal Pulse Rate (60-100) 70 84 Pulse Location Monitor Monitor Respiratory Rate (12-18) 18 15 Respiratory rate source Observation Observation Oxygen Delivery Method Room Air Blood Pressure (90/60-120/80) 146/71 H 165/80 H Blood Pressure Mean (mm Hg) 96 108 Source Monitor Monitor Position Sitting Sitting Blood Pressure Location Left Arm Right Arm History Since Last Visit- (Skip if this is Patient's initial visit) Have you changed medications since your No last visit? Any new allergies or adverse reactions No Had a fall/change in ADL's that may No increase risk of falls Signs or symptoms of abuse and/or No neglect since last visit Have you been in the hospital since your No last visit? Has dressing in place as prescribed Yes Yes Has compression in place as prescribed Yes N/A Has offloadiing in place as prescribed Yes No Experienced any changes in pain level or Yes No management Left Footwear No Footwear Right Footwear No Footwear Pain Scale: 0-10 Numeric Is Patient Pain Free? Yes Yes WC - Nurse 1 - General Ulcer Measurement Start: 09/17/24 10:13 Freq: Status: Active Protocol: Activity Type Activity Date Activity User E-sign Co-sign Detail Recorded Client Recorded Date Recorded By Document 09/17/24 10:14 KW [id number] 09/17/24 10:16 KW Document 09/24/24 10:33 GM [id number] 09/24/24 10:35 GM Document 10/01/24 09:00 MT [id number] 10/01/24 09:04 MT Document 10/08/24 08:35 ML [id number] 10/08/24 08:37 ML 09/17/24 09/24/24 10/01/24 10:14 10:33 09:00 Wound Center Nurse 1 4 LT LAT FOOT -Current Size (cm) - Length 8.7 1.5 9 -Current Size (cm) - Width 1.2 8.0 1.5 -Current Size (cm) - Depth 0.2 0.1 0.2 -Total Square Cm 10.44 12.00 13.5 -Date of Last Picture (Recall this 09/17/24 09/24/24 field) -Photo Taken Yes -Epithelialization Small 1-33% -Tunneling No -Tunneling Position (O'clock) 12 -Tunneling Distance (cm) 0.5 -Undermining/Tunneling Yes No Yes -Undermining/Tunneling Starts (O'clock 9 9 ) -Undermining/Tunneling Ends (O'clock) 11 12 -Maximum Distance (cm) 0.5 0.3 -Circular Undermining No -Exudate Amt Medium Medium -Exudate Type Serosanguineous Serosanguineous Serosanguineous -Wound Margin Distinct, Distinct, Well Defined, Outline Outline Not Attached Attached Attached -Granulation Amt Large (67-100%) Medium (34-66%) Large (67-100%) -Granulation Quality [place] [address] Red [place] [address] -Slough/Fibrin Yes -Necrosis Amt Small (1-33%) Small (1-33%) Small (1-33%) -Necrotic Tissue Type Adherent Slough Adherent Slough -Texture (Maxine-wound Skin Appearance) Assessed Assessed Assessed -Moisture (Maxine-wound Skin Appearance) Assessed Assessed Assessed -Color (Maxine-wound Skin Appearance) Assessed Assessed Assessed -Temperature (Maxine-wound Skin No Abnormality No Abnormality No Abnormality Appearance) (Pt Warm) (Pt Warm) (Pt Warm) -Tenderness on Palpation (Maxine-wound No No No Skin Appearance) -Ulcer Cleansing Soap and Water Soap and Water Soap and Water -Foul Odor after Cleansing No No No -Anesthetic Used 4% Lidocaine 5% Lidocaine 4% Lidocaine Solution Gel Solution Lower Limb Edema Present No NA Left Calf (cm) 39.5 Left Ankle (cm) 24.4 10/08/24 08:35 Wound Center Nurse 1 4 LT LAT FOOT -Current Size (cm) - Length 0.1 -Current Size (cm) - Width 0.1 -Current Size (cm) - Depth 0.1 -Total Square Cm 0.01 -Date of Last Picture (Recall this field) -Photo Taken -Epithelialization -Tunneling -Tunneling Position (O'clock) -Tunneling Distance (cm) -Undermining/Tunneling -Undermining/Tunneling Starts (O'clock ) -Undermining/Tunneling Ends (O'clock) -Maximum Distance (cm) -Circular Undermining -Exudate Amt Medium -Exudate Type Serosanguineous -Wound Margin Distinct, Outline Attached -Granulation Amt Medium (34-66%) -Granulation Quality -Slough/Fibrin Yes -Necrosis Amt Medium (34-66%) -Necrotic Tissue Type Adherent Slough -Texture (Maxine-wound Skin Appearance) Assessed -Moisture (Maxine-wound Skin Appearance) Assessed -Color (Maxine-wound Skin Appearance) Assessed -Temperature (Maxine-wound Skin No Abnormality Appearance) (Pt Warm) -Tenderness on Palpation (Maxine-wound No Skin Appearance) -Ulcer Cleansing Soap and Water -Foul Odor after Cleansing No -Anesthetic Used 5% Lidocaine Gel Lower Limb Edema Present Left Calf (cm) Left Ankle (cm) WC - Nurse 2 - General Ulcer CM Notes Start: 09/17/24 10:13 Freq: Status: Active Protocol: Activity Type Activity Date Activity User E-sign Co-sign Detail Recorded Client Recorded Date Recorded By Document 09/17/24 10:32 [id number] 09/17/24 10:37 JF Document 09/24/24 10:46 JF [id number] 09/24/24 10:52 JF Document 10/01/24 09:21 JF [id number] 10/01/24 09:25 JF Document 10/08/24 09:06 [id number] 10/08/24 09:08 JF 09/17/24 09/24/24 10/01/24 10:32 10:46 09:21 Wound Center Nurse 2 4 LT LAT FOOT -Time 10:32 10:49 09:22 -Correct Patient Yes Yes Yes -Correct Side, Site, Position Yes Yes Yes -Correct Procedure Yes Yes Yes -Procedure Performed Yes Yes Yes -Type of Procedure Debridement Debridement Debridement -Clinical Debridement Subcutaneous Subcutaneous Subcutaneous -Tissue Removed Subcutaneous Subcutaneous Subcutaneous -Post Debridement (cm) - Length 1.4 1.1 1.2 -Post Debridement (cm) - Width 9 8.2 7 -Post Debridement (cm) - Depth 0.1 0.1 0.1 -Total Square (Post) (cm) 12.6 9.02 8.4 -Area of Debridement (cm) - Length 1.4 1.1 1.2 -Area of Debridement (cm) - Width 9 8.2 7 -Total Square (Area) (cm) 12.6 9.02 8.4 -Tunneling No No No -Undermining/Tunneling No No No -Circular Undermining No No No -Wound/Ulcer Outcome Not Healed Not Healed Not Healed -Ulcer Cleansing Rinsed/ Rinsed/ Rinsed/ Irrigated with Irrigated with Irrigated with Saline Saline Saline -Foul Odor after Cleansing No No No -Bioengineered Tissue Yes Yes Yes -Type of Bioengineered Tissue Epifix Mesh Epifix Mesh Epifix Mesh -Expiration Date 02/13/29 03/16/29 03/16/29 -Product Lot Number [id number] -Percent Used 100 100 100 -Lot number of Saline Used [id number] -Bleeding Controlled with Pressure Pressure Pressure -Treatment Response Procedure Procedure Procedure Tolerated Well Tolerated Well Tolerated Well -Offloading Yes Yes Yes -Type of Offloading Surgical Shoe Surgical Shoe Surgical Shoe -Debridement - Subq, 1st 20sq cm No No No -Apply Skin Sub - 1st 25 sq cm - Feet 1 1 1 -Epifix Mesh (per sq cm) 11 11 11 Pain Scale: 0-10 Numeric Is Patient Pain Free? Yes Yes Yes 10/08/24 09:06 Wound Center Nurse 2 4 LT LAT FOOT -Time 09:06 -Correct Patient Yes -Correct Side, Site, Position Yes -Correct Procedure Yes -Procedure Performed Yes -Type of Procedure Debridement -Clinical Debridement Subcutaneous -Tissue Removed Subcutaneous -Post Debridement (cm) - Length 1.2 -Post Debridement (cm) - Width 5.5 -Post Debridement (cm) - Depth 0.1 -Total Square (Post) (cm) 6.60 -Area of Debridement (cm) - Length 1.2 -Area of Debridement (cm) - Width 5.5 -Total Square (Area) (cm) 6.60 -Tunneling No -Undermining/Tunneling No -Circular Undermining No -Wound/Ulcer Outcome Not Healed -Ulcer Cleansing Rinsed/ Irrigated with Saline -Foul Odor after Cleansing No -Bioengineered Tissue Yes -Type of Bioengineered Tissue Epifix Mesh -Expiration Date 03/16/29 -Product Lot Number [id number] -Percent Used 100 -Lot number of Saline Used [id number] -Bleeding Controlled with Pressure -Treatment Response Procedure Tolerated Well -Offloading Yes -Type of Offloading Surgical Shoe -Debridement - Subq, 1st 20sq cm No -Apply Skin Sub - 1st 25 sq cm - Feet 1 -Epifix Mesh (per sq cm) 11 Pain Scale: 0-10 Numeric Is Patient Pain Free? Yes WC - Nurse 3 - General Ulcer D/C NN Start: 09/17/24 10:13 Freq: Status: Active Protocol: Activity Type Activity Date Activity User E-sign Co-sign Detail Recorded Client Recorded Date Recorded By Document 09/17/24 10:54 ML [id number] 09/17/24 10:55 ML Document 09/24/24 11:03 DL [id number] 09/24/24 11:04 DL Document 10/01/24 09:49 CP [id number] 10/01/24 09:50 CP Document 10/08/24 09:16 JF [id number] 10/08/24 09:16 JF 09/17/24 09/24/24 10/01/24 10:54 11:03 09:49 Wound Care Center Nurse 3 4 LT LAT FOOT -Ulcer Cleansing Not Cleansed -Foul Odor after Cleansing No -Other Dressing abd, freddie from EPifix freddie wrap foot to knee -Primary Dressing Covered/Secured with Dry Gauze, Dry Gauze & Dry Gauze & Secured with Roll Gauze, Roll Gauze, Tape Secured with Secured with Tape Tape -Other Covering FREDDIE LLE -Compression Wrap Treatment Response Procedure Tolerated Well Pain Scale: 0-10 Numeric Is Patient Pain Free? Yes Yes Yes WC - Visit Discharge Discharge Condition Stable Stable Ambulatory Status Wheelchair Wheelchair Transportation Private Auto Private Auto Medication Reconcilliation completed & provided to patient/care provider Clinical Summary of Care Provided Yes Facility Type Intermediate Care Intermediate Care Facility Facility Orders Sent Yes Yes 10/08/24 09:16 Wound Care Center Nurse 3 4 LT LAT FOOT -Ulcer Cleansing Rinsed/ Irrigated with Saline -Foul Odor after Cleansing No -Other Dressing abd pad and kerlix. ATB ointment to area where charred of metal was removed -Primary Dressing Covered/Secured with -Other Covering LLE -Compression Wrap Freddie Wrap Treatment Response Pain Scale: 0-10 Numeric Is Patient Pain Free? Yes WC - Visit Discharge Discharge Condition Stable Ambulatory Status Wheelchair Transportation Private Auto Medication Reconcilliation completed & Yes provided to patient/care provider Clinical Summary of Care Provided Yes Facility Type Orders Sent Assessment/Plan Assessment/Plan (1) Non-pressure chronic ulcer of other part of left foot with bone involvement without evidence of necrosis: CODE(S): L97.526 - Non-pressure chronic ulcer of other part of left foot with bone involvement without evidence of necrosis PLAN: Patient was examined and evaluated. All findings were discussed with the patient. All questions were answered to the patient's satisfaction. Excisional debridement down to and including subcutaneous tissue, fascia, tendon and bone of the left foot with a number 7 mm dermal curette without incident. Predebridement measurement was 1.0 x 5.0 x 0.1 cm. Postdebridement measurement is 1.2 x 5.5 x 0.1 cm. EpiFix mesh 4.0 x 4.5 cm was applied to the left full-thickness ulceration with 100% use. Eighth application. The graft site was free and clear of any infection. The wound/skin graft substitute was dressed with nonadherent bandage secured in place with Steri-Strips followed by bolster dressing as well as a double layer Tubigrip. Topical anesthesia was applied to the foreign body and once anesthesia was confirmed using a #15 blade the metallic foreign body was removed measuring approximately 0.5 cm in length. Metallic foreign body was discarded and sharps. Triple-lumen antibiotic was applied to the level of the foreign body and covered with a dry sterile dressing. Patient will continue to ambulate as tolerated in surgical shoe. He will continue strict blood sugar control. Follow-up at the wound care center with Dr. Barnett in 1 week. (2) Foreign body in left foot: CODE(S): S90.852A - Superficial foreign body, left foot, initial encounter
--- NOTE | 2024-10-08 15:01 | WC ---
PHOTO 10/08/24 LEFT FOOT
== END 2024-10-13 23:59 | disposition home or self-care (01) ==
LOC: WC 08:45
PROVIDERS: PCP Family Medicine; Referring Provider Podiatrist; Visit Provider Podiatrist Foot & Ankle Surgery
DX: T87.89 Other complications of amputation stump (principal); L97.526 Non-pressure chronic ulcer of other part of left foot with bone involvement without evidence of necrosis; Y83.5 Amputation of limb(s) as the cause of abnormal reaction of the patient, or of later complication, without mention of misadventure at the time of the procedure; R60.0 Localized edema; Z79.82 Long term (current) use of aspirin; Z79.02 Long term (current) use of antithrombotics/antiplatelets; Z79.890 Hormone replacement therapy; Z79.899 Other long term (current) drug therapy
CPT/HCPCS: 15275; Q4186

== ENCOUNTER 2024-11-05 09:45 | Outpatient (RCR) | payer MEDICARE, SELFPAY ==
[2024-10-14 00:20] VITALS: BP 165/80; PULSE 84; RESP 15; TEMP 36.1; BMI 35.7
[2024-10-15 08:49] VITALS: BP 166/80; PULSE 96; RESP 18; TEMP 36.1; BMI 35.7
--- NOTE | 2024-10-15 10:44 | PN.PCM_ITS ---
History of Present Illness Date of Service: 10/15/24 Chief Complaint: Left foot full-thickness wound History of Wound: Stable left foot wound with amniotic graft substitute. Progress of Wound: Stable full-thickness wound with graft application left foot Subjective Subjective Mr. Palacios is a 74-year-old diabetic male presenting to the wound care center today for follow-up evaluation of full-thickness wound to left foot with amniotic skin graft substitute application. He has left the graft clean dry and intact. His blood sugar ranges from 90 to 100 mg/dL. He does admit to weightbearing without any protective shoe gear and is only been using socks and the bandage to the left and right foot. He denies any drainage to the left bandage. He denies trauma. Denies constitutional symptoms. Other pedal complaints at this time. Objective Data Objective Data Vital Signs: Vital Signs Temp Pulse Resp BP 97 F L 96 18 166/80 H 10/15/24 08:49 10/15/24 08:49 10/15/24 08:49 10/15/24 08:49 Weight: 122.924 kg Body Mass Index (BMI) 35.7 Physical Exam Narrative Vascular: DP and PT pulses are faintly palpable to left extremity. CFT is brisk. Skin temp great is warm to warm from proximal ankles to distal digits to left lower extremity. Nonpitting edema appreciated left lower extremity. Sharath hable erythema to the proximal aspect of the full-thickness wound lateral left foot. Neurological: Light touch intact. Protective station is absent. Dermatological: Full-thickness wound to lateral left foot measuring 1.4 x 2.5 x 0.3 cm. The proximal aspect of the wound showed evidence of purulent drainage and erythema. This was debrided and flushed. Culture was taken. Excisional debridement down to and including subcutaneous tissue, fascia and muscle, with a number 5 mm dermal curette to the left lateral full-thickness wound. Predebridement measurement was 1.2 x 2.5 x 0.1 cm. Post right measurement is 1.4 x 2.5 x 0.3 cm. Musculoskeletal: No pain on palpation to the full-thickness wound to the left foot. No pain with calf pressure. Debridement Note Debridement Note Debridement Free Text: Excisional debridement down to and including subcutaneous tissue, fascia and muscle, with a number 5 mm dermal curette to the left lateral full-thickness wound. Predebridement measurement was 1.2 x 2.5 x 0.1 cm. Post right measurement is 1.4 x 2.5 x 0.3 cm. Post-Debridement Measurements and Additional Note: Post-Debridement Measurements/Treatment - Nurse 1 - General Ulcer Assessment Start: 10/15/24 08:49 Freq: Status: Active Protocol: KENNYEX Activity Type Activity Date Activity User E-sign Co-sign Detail Recorded Client Recorded Date Recorded By Document 10/15/24 08:49 RB [id number] 10/15/24 08:53 RB 10/15/24 08:49 WC - Today's Visit Information Type of service Follow-up Visit (Physician/PACKING ATTENDANT ) Arrival Mode Wheelchair Transfer Assistance Manual Patient Identification Verified (Name & Yes ) Patient Requires Transmission-Based No Precautions Height and Weight Body Mass Index (BMI) 35.7 BMI Classification Obese Vital Signs Temperature (97.8 F-99.1 F) 97 F L Temperature Source Temporal Pulse Rate (60-100) 96 Pulse Location Monitor Respiratory Rate (12-18) 18 Respiratory rate source Observation Blood Pressure (90/60-120/80) 166/80 H Blood Pressure Mean (mm Hg) 108 Source Monitor Position Semi-Fowlers Blood Pressure Location Right Arm History Since Last Visit- (Skip if this is Patient's initial visit) Have you changed medications since your No last visit? Any new allergies or adverse reactions No Had a fall/change in ADL's that may No increase risk of falls Signs or symptoms of abuse and/or No neglect since last visit Have you been in the hospital since your No last visit? Has dressing in place as prescribed Yes Has compression in place as prescribed Yes Has offloadiing in place as prescribed N/A Experienced any changes in pain level or No management Pain Scale: 0-10 Numeric Is Patient Pain Free? Yes - Nurse 1 - General Ulcer Measurement Start: 10/15/24 08:49 Freq: Status: Active Protocol: Activity Type Activity Date Activity User E-sign Co-sign Detail Recorded Client Recorded Date Recorded By Document 10/15/24 08:49 RB [id number] 10/15/24 08:53 RB 10/15/24 08:49 Wound Center Nurse 1 4 LT LAT FOOT -Combined with other wound No -Current Size (cm) - Length 0.9 -Current Size (cm) - Width 6.8 -Current Size (cm) - Depth 0.4 -Total Square Cm 6.12 -Tunneling No -Undermining/Tunneling Yes -Undermining/Tunneling Starts (O'clock 12 ) -Undermining/Tunneling Ends (O'clock) 12 -Maximum Distance (cm) 0.8 -Circular Undermining Yes -Exudate Amt Medium -Exudate Type Purulent -Wound Margin Distinct, Outline Attached -Granulation Amt Medium (34-66%) -Granulation Quality [place] -Slough/Fibrin Yes -Necrosis Amt Large (67-100%) -Structure Exposed N/A -Texture (Maxine-wound Skin Appearance) Assessed, Scarring -Moisture (Maxine-wound Skin Appearance) Assessed,Dry/ Scaly -Color (Maxine-wound Skin Appearance) Assessed -Temperature (Maxine-wound Skin No Abnormality Appearance) (Pt Warm) -Tenderness on Palpation (Maxine-wound No Skin Appearance) -Ulcer Cleansing Wound Cleanser -Foul Odor after Cleansing No -Anesthetic Used 5% Lidocaine Gel WC - Nurse 2 - General Ulcer CM Notes Start: 10/15/24 08:49 Freq: Status: Active Protocol: Activity Type Activity Date Activity User E-sign Co-sign Detail Recorded Client Recorded Date Recorded By Document 10/15/24 09:13 AISHWARYA [id number] 10/15/24 09:21 AISHWARYA 10/15/24 09:13 Wound Center Nurse 2 -Time 09:20 -Correct Patient Yes -Correct Side, Site, Position Yes -Correct Procedure Yes -Procedure Performed Yes -Type of Procedure Debridement -Clinical Debridement Muscle / Fascia -Tissue Removed Muscle -Post Debridement (cm) - Length 1.4 -Post Debridement (cm) - Width 5.2 -Post Debridement (cm) - Depth 0.3 -Total Square (Post) (cm) 7.28 -Area of Debridement (cm) - Length 1.4 -Area of Debridement (cm) - Width 5.2 -Total Square (Area) (cm) 7.28 -Tunneling No -Undermining/Tunneling No -Circular Undermining No -Wound/Ulcer Outcome Not Healed -Ulcer Cleansing Rinsed/ Irrigated with Saline -Foul Odor after Cleansing No -Bioengineered Tissue No -Bleeding Controlled with Pressure -Treatment Response Procedure Tolerated Well -Offloading Yes -Type of Offloading Surgical Shoe -Debridement - Muscle / Fascia, 1st Yes 20sq cm Pain Scale: 0-10 Numeric Is Patient Pain Free? Yes WC - Nurse 3 - General Ulcer D/C NN Start: 10/15/24 08:49 Freq: Status: Active Protocol: Activity Type Activity Date Activity User E-sign Co-sign Detail Recorded Client Recorded Date Recorded By Document 10/15/24 09:31 KW [id number] 10/15/24 09:32 KW 10/15/24 09:31 Wound Care Center Nurse 3 4 LT LAT FOOT -Ulcer Cleansing Rinsed/ Irrigated with Saline -Other Dressing betadine gauze -Primary Dressing Covered/Secured with Dry Gauze & Roll Gauze, Secured with Tape LLE -Compression Wrap Freddie Wrap Pain Scale: 0-10 Numeric Is Patient Pain Free? Yes WC - Visit Discharge Discharge Condition Stable Ambulatory Status Wheelchair Medication Reconcilliation completed & No provided to patient/care provider Clinical Summary of Care Provided Yes Assessment/Plan Assessment/Plan (1) Cutaneous abscess of left foot: CODE(S): L02.612 - Cutaneous abscess of left foot PLAN: Patient was examined and evaluated. All findings were discussed with the patient. All questions were answered to the patient's satisfaction. Excisional debridement down to and including subcutaneous tissue, fascia and muscle, with a number 5 mm dermal curette to the left lateral full-thickness wound. Predebridement measurement was 1.2 x 2.5 x 0.1 cm. Post right measurement is 1.4 x 2.5 x 0.3 cm. Culture was taken of the full-thickness wound and the patient will be placed on oral antibiotics, doxycycline 100 mg twice daily for 2 weeks. Will adjust antibiotics as culture returns. Full- thickness wounds were dressed with Betadine soaked gauze dry sterile dressing and compression wrap to left lower extremity. With surgical shoe donned to the bilateral lower extremity. Patient will continue to have strict blood sugar control as he has been doing thus far. We will hold off on the amniotic skin graft substitute for 1 week due to concern for lower extremity infection. Educated the patient to continue to check his feet twice per day and wear protective shoe gear especially since he is diabetic and has neuropathy and he is at risk for loss of protective sensation that can lead to ulceration thus leading to possible continued excisional debridement and possible amputation. Follow-up at the wound care center with Dr. Barnett in 1 week. (2) Non-pressure chronic ulcer of other part of left foot with necrosis of muscle: CODE(S): L97.523 - Non-pressure chronic ulcer of other part of left foot with necrosis of muscle
[2024-10-22 08:34] VITALS: BP 163/93; PULSE 90; RESP 18; TEMP 36.6; BMI 35.7
--- NOTE | 2024-10-22 10:54 | PCM.WC.PN ---
History of Present Illness Date of Service: 10/22/24 Chief Complaint: Left foot full-thickness wound History of Wound: Stable left foot wound with amniotic graft substitute. Progress of Wound: Stable full-thickness wound with graft application left foot Subjective Subjective Mr. Palacios is a 74-year-old diabetic male presenting to wound care center for follow-up evaluation of left lower extremity full-thickness wound. Patient has been taking his antibiotics as prescribed. He has left the dressing clean dry and intact. He admits to improvement no drainage to the wound at this time. The redness is completely gone. His blood sugars well-controlled. He denies any drainage. Denies constitutional symptoms. No other pedal complaints at this time. Objective Data Objective Data Vital Signs: Vital Signs Temp Pulse Resp BP O2 Del Method 97.8 F 90 18 163/93 H Room Air 10/22/24 08:34 10/22/24 08:34 10/22/24 08:34 10/22/24 08:34 10/22/24 08:34 Oxygen Delivery Method Room Air Weight: 122.924 kg Body Mass Index (BMI) 35.7 Lab / Micro Data Micro: Microbiology 10/15/24 09:16 Ulcer, Decubitus - Left Foot Gram Stain - Final 10/15/24 09:16 Ulcer, Decubitus - Left Foot Wound Culture - Final Meth. resistant Staph. aureus 10/15/24 09:16 Ulcer, Decubitus - Left Foot Anaerobic Culture - Final Anaerobic cocci Physical Exam Narrative Vascular: DP and PT pulses are faintly palpable to left extremity. CFT is brisk. Skin temp great is warm to warm from proximal ankles to distal digits to left lower extremity. Nonpitting edema appreciated left lower extremity. No erythema to the left foot. Neurological: Light touch intact. Protective station is absent. Dermatological: Full-thickness wound to lateral left foot measuring 0.9 x 2.1 x 0.1 cm. No evidence of purulent drainage or erythema. Excisional debridement down to and including subcutaneous tissue, fascia and muscle, with a number 5 mm dermal curette to the left lateral full-thickness wound. Predebridement measurement was sanguinous crust. Postdebridement measurement is 0.9 x 2.1 x 0.1 cm. EpiFix 2.0 x 2.0 cm was applied to the left full-thickness ulceration with 100% use. Ninth application. The graft site was free and clear of any infection. The wound/skin graft substitute was dressed with nonadherent bandage secured in place with Steri-Strips followed by bolster dressing as well as a double layer Tubigrip. Musculoskeletal: No pain on palpation to the full-thickness wound to the left foot. No pain with calf pressure. Debridement Note Debridement Note Debridement Free Text: Excisional debridement down to and including subcutaneous tissue, fascia and muscle, with a number 5 mm dermal curette to the left lateral full-thickness wound. Predebridement measurement was sanguinous crust. Postdebridement measurement is 0.9 x 2.1 x 0.1 cm. EpiFix 2.0 x 2.0 cm was applied to the left full-thickness ulceration with 100% use. Ninth application. The graft site was free and clear of any infection. The wound/skin graft substitute was dressed with nonadherent bandage secured in place with Steri-Strips followed by bolster dressing as well as a double layer Tubigrip. Post-Debridement Measurements and Additional Note: Post-Debridement Measurements/Treatment - Nurse 1 - General Ulcer Assessment Start: 10/15/24 08:49 Freq: Status: Active Protocol: [email or web address] Activity Type Activity Date Activity User E-sign Co-sign Detail Recorded Client Recorded Date Recorded By Document 10/15/24 08:49 RB [id number] 10/15/24 08:53 RB Document 10/22/24 08:34 KW [id number] 10/22/24 08:46 KW 10/15/24 10/22/24 08:49 08:34 - Today's Visit Information Type of service Follow-up Visit Follow-up Visit (Physician/UX UI DESIGNER (Physician/UX UI DESIGNER ) ) Arrival Mode Wheelchair Wheelchair Transfer Assistance Manual Patient Identification Verified (Name & Yes Yes ) Patient Requires Transmission-Based No Precautions Height and Weight Body Mass Index (BMI) 35.7 35.7 BMI Classification Obese Obese Vital Signs Temperature (97.8 F-99.1 F) 97 F L 97.8 F Temperature Source Temporal Temporal Pulse Rate (60-100) 96 90 Pulse Location Monitor Monitor Respiratory Rate (12-18) 18 18 Respiratory rate source Observation Observation Oxygen Delivery Method Room Air Blood Pressure (90/60-120/80) 166/80 H 163/93 H Blood Pressure Mean (mm Hg) 108 116 Source Monitor Monitor Position Semi-Fowlers Semi-Fowlers Blood Pressure Location Right Arm Left Arm History Since Last Visit- (Skip if this is Patient's initial visit) Have you changed medications since your No No last visit? Any new allergies or adverse reactions No No Had a fall/change in ADL's that may No No increase risk of falls Signs or symptoms of abuse and/or No No neglect since last visit Have you been in the hospital since your No No last visit? Has dressing in place as prescribed Yes Yes Has compression in place as prescribed Yes N/A Has offloadiing in place as prescribed N/A N/A Experienced any changes in pain level or No No management Left Footwear No Footwear Right Footwear No Footwear Pain Scale: 0-10 Numeric Is Patient Pain Free? Yes Yes WC - Nurse 1 - General Ulcer Measurement Start: 10/15/24 08:49 Freq: Status: Active Protocol: Activity Type Activity Date Activity User E-sign Co-sign Detail Recorded Client Recorded Date Recorded By Document 10/15/24 08:49 RB [id number] 10/15/24 08:53 RB Document 10/22/24 08:34 KW [id number] 10/22/24 08:46 KW 10/15/24 10/22/24 08:49 08:34 Wound Center Nurse 1 4 LT LAT FOOT -Combined with other wound No -Current Size (cm) - Length 0.9 5 -Current Size (cm) - Width 6.8 0.5 -Current Size (cm) - Depth 0.4 0.1 -Total Square Cm 6.12 2.5 -Date of Last Picture (Recall this 10/22/24 field) -Tunneling No -Undermining/Tunneling Yes -Undermining/Tunneling Starts (O'clock 12 ) -Undermining/Tunneling Ends (O'clock) 12 -Maximum Distance (cm) 0.8 -Circular Undermining Yes -Exudate Amt Medium Small -Exudate Type Purulent Serosanguineous -Wound Margin Distinct, Distinct, Outline Outline Attached Attached -Granulation Amt Medium (34-66%) Small (1-33%) -Granulation Quality [place],Red -Slough/Fibrin Yes -Necrosis Amt Large (67-100%) Large (67-100%) -Necrotic Tissue Type Adherent Slough -Structure Exposed N/A -Texture (Maxine-wound Skin Appearance) Assessed, Assessed Scarring -Moisture (Maxine-wound Skin Appearance) Assessed,Dry/ Assessed Scaly -Color (Maxine-wound Skin Appearance) Assessed Assessed -Temperature (Maxine-wound Skin No Abnormality No Abnormality Appearance) (Pt Warm) (Pt Warm) -Tenderness on Palpation (Maxine-wound No No Skin Appearance) -Ulcer Cleansing Wound Cleanser Soap and Water -Foul Odor after Cleansing No No -Anesthetic Used 5% Lidocaine 5% Lidocaine Gel Gel WC - Nurse 2 - General Ulcer CM Notes Start: 10/15/24 08:49 Freq: Status: Active Protocol: Activity Type Activity Date Activity User E-sign Co-sign Detail Recorded Client Recorded Date Recorded By Document 10/15/24 09:13 [id number] 10/15/24 09:21 JF Document 10/22/24 09:03 JF [id number] 10/22/24 09:05 JF 10/15/24 10/22/24 09:13 09:03 Wound Center Nurse 2 4 LT LAT FOOT -Time 09:20 09:04 -Correct Patient Yes Yes -Correct Side, Site, Position Yes Yes -Correct Procedure Yes Yes -Procedure Performed Yes Yes -Type of Procedure Debridement Debridement -Clinical Debridement Muscle / Fascia Subcutaneous -Tissue Removed Muscle Subcutaneous -Post Debridement (cm) - Length 1.4 0.9 -Post Debridement (cm) - Width 5.2 2.1 -Post Debridement (cm) - Depth 0.3 0.1 -Total Square (Post) (cm) 7.28 1.89 -Area of Debridement (cm) - Length 1.4 0.9 -Area of Debridement (cm) - Width 5.2 2.1 -Total Square (Area) (cm) 7.28 1.89 -Tunneling No No -Undermining/Tunneling No No -Circular Undermining No No -Wound/Ulcer Outcome Not Healed Not Healed -Ulcer Cleansing Rinsed/ Rinsed/ Irrigated with Irrigated with Saline Saline -Foul Odor after Cleansing No No -Bioengineered Tissue No Yes -Type of Bioengineered Tissue Epifix -Expiration Date 03/16/29 -Product Lot Number [id number] -Percent Used 100 -Lot number of Saline Used [id number] -Bleeding Controlled with Pressure Pressure -Treatment Response Procedure Procedure Tolerated Well Tolerated Well -Offloading Yes Yes -Type of Offloading Surgical Shoe Surgical Shoe -Debridement - Subq, 1st 20sq cm No -Debridement - Muscle / Fascia, 1st Yes 20sq cm -Apply Skin Sub - 1st 25 sq cm - Feet 1 -Epifix (per sq cm) 4 Pain Scale: 0-10 Numeric Is Patient Pain Free? Yes Yes - Nurse 3 - General Ulcer D/C NN Start: 10/15/24 08:49 Freq: Status: Active Protocol: Activity Type Activity Date Activity User E-sign Co-sign Detail Recorded Client Recorded Date Recorded By Document 10/15/24 09:31 KW [id number] 10/15/24 09:32 KW Document 10/22/24 08:51 KW [id number] 10/22/24 09:20 KW 10/15/24 10/22/24 09:31 08:51 Wound Care Center Nurse 3 4 LT LAT FOOT -Ulcer Cleansing Rinsed/ Irrigated with Saline -Other Dressing betadine gauze -Primary Dressing Covered/Secured with Dry Gauze & Dry Gauze & Roll Gauze, Roll Gauze, Secured with Secured with Tape Tape LLE -Compression Wrap Freddie Wrap Freddie Wrap -Other 1 Pain Scale: 0-10 Numeric Is Patient Pain Free? Yes Yes - Visit Discharge Discharge Condition Stable Stable Ambulatory Status Wheelchair Wheelchair Medication Reconcilliation completed & No No provided to patient/care provider Clinical Summary of Care Provided Yes Yes Assessment/Plan Assessment/Plan (1) Non-pressure chronic ulcer of other part of left foot with necrosis of muscle: CODE(S): L97.523 - Non-pressure chronic ulcer of other part of left foot with necrosis of muscle PLAN: Patient was examined and evaluated. All findings were discussed with the patient. All questions were answered to the patient's satisfaction. Excisional debridement down to and including subcutaneous tissue, fascia and muscle, with a number 5 mm dermal curette to the left lateral full-thickness wound. Predebridement measurement was sanguinous crust. Postdebridement measurement is 0.9 x 2.1 x 0.1 cm. EpiFix 2.0 x 2.0 cm was applied to the left full-thickness ulceration with 100% use. Ninth application. The graft site was free and clear of any infection. The wound/skin graft substitute was dressed with nonadherent bandage secured in place with Steri-Strips followed by bolster dressing as well as a double layer Tubigrip. Patient is not showing any concerns for infection to the left foot at this time. He will continue to take his doxycycline as his culture grew back MRSA. He is doing very well. He will continue strict blood sugar control. Follow-up at the wound care center with Dr. Barnett in 1 week.
--- NOTE | 2024-10-23 10:31 | WC ---
PHOTO 10/22/24 LEFT LATERAL FOOT
[2024-10-29 10:09] VITALS: BP 172/73; PULSE 77; RESP 16; TEMP 36.4; BMI 35.7
--- NOTE | 2024-10-29 11:09 | PN.PCM_ITS ---
History of Present Illness Date of Service: 10/29/24 Chief Complaint: Left foot full-thickness wound History of Wound: Stable left foot wound with amniotic graft substitute. Progress of Wound: Stable full-thickness wound with graft application left foot Subjective Subjective Mr. Palacios is a 74-year-old diabetic male presenting to the wound care center for follow-up evaluation full-thickness wounds and ending on skin graft substitute to the left lateral foot. His blood sugars well-controlled. He left his dressing clean dry and intact. Denies drainage or strikethrough. Denies trauma. Denies constitutional symptoms. No other pedal complaints at this time. Objective Data Objective Data Vital Signs: Vital Signs Temp Pulse Resp BP O2 Del Method 97.6 F L 77 16 172/73 H Room Air 10/29/24 10:10/29/24 10:09 10/29/24 10:09 10/29/24 10:10/29/24 10:09 Oxygen Delivery Method Room Air Weight: 122.924 kg Body Mass Index (BMI) 35.7 Lab / Micro Data Micro: Microbiology 10/15/24 09:16 Ulcer, Decubitus - Left Foot Gram Stain - Final 10/15/24 09:16 Ulcer, Decubitus - Left Foot Wound Culture - Final Meth. resistant Staph. aureus 10/15/24 09:16 Ulcer, Decubitus - Left Foot Anaerobic Culture - Final Anaerobic cocci Physical Exam Narrative Vascular: DP and PT pulses are faintly palpable to left extremity. CFT is brisk. Skin temp great is warm to warm from proximal ankles to distal digits to left lower extremity. Nonpitting edema appreciated left lower extremity. No erythema to the left foot. Neurological: Light touch intact. Protective station is absent. Dermatological: Full-thickness wound to lateral left foot measuring 0.8 x 1.6 x 0.1 cm. No evidence of purulent drainage or erythema. Excisional debridement down to and including subcutaneous tissue, fascia and muscle, with a number 5 mm dermal curette to the left lateral full-thickness wound. Predebridement measurement was sanguinous crust. Postdebridement measurement is 0.8 x 1.6 x 0.1cm EpiFix 18 mm disc was applied to the left full-thickness ulceration with 100% use. 10th application. The graft site was free and clear of any infection. The wound/skin graft substitute was dressed with nonadherent bandage secured in place with Steri-Strips followed by bolster dressing as well as a double layer Tubigrip. Musculoskeletal: No pain on palpation to the full-thickness wound to the left foot. No pain with calf pressure. Debridement Note Debridement Note Debridement Free Text: Excisional debridement down to and including subcutaneous tissue, fascia and muscle, with a number 5 mm dermal curette to the left lateral full-thickness wound. Predebridement measurement was sanguinous crust. Postdebridement measurement is 0.8 x 1.6 x 0.1cm EpiFix 18 mm disc was applied to the left full-thickness ulceration with 100% use. 10th application. The graft site was free and clear of any infection. The wound/skin graft substitute was dressed with nonadherent bandage secured in place with Steri-Strips followed by bolster dressing as well as a double layer Tubigrip. Post-Debridement Measurements and Additional Note: Post-Debridement Measurements/Treatment - Nurse 1 - General Ulcer Assessment Start: 10/15/24 08:49 Freq: Status: Active Protocol: FIDENCIO Activity Type Activity Date Activity User E-sign Co-sign Detail Recorded Client Recorded Date Recorded By Document 10/15/24 08:49 RB [id number] 10/15/24 08:53 RB Document 10/22/24 08:34 KW [id number] 10/22/24 08:46 KW Document 10/29/24 10:09 [id number] 10/29/24 10:12 10/15/24 10/22/24 10/29/24 08:49 08:34 10:09 - Today's Visit Information Type of service Follow-up Visit Follow-up Visit Follow-up Visit (Physician/THEATRICAL RIGGER (Physician/THEATRICAL RIGGER (Physician/THEATRICAL RIGGER ) ) ) Arrival Mode Wheelchair Wheelchair Wheelchair Transfer Assistance Manual None Patient Identification Verified (Name & Yes Yes Yes ) Patient Requires Transmission-Based No No Precautions Height and Weight Body Mass Index (BMI) 35.7 35.7 35.7 BMI Classification Obese Obese Obese Vital Signs Temperature (97.8 F-99.1 F) 97 F L 97.8 F 97.6 F L Temperature Source Temporal Temporal Temporal Pulse Rate (60-100) 96 90 77 Pulse Location Monitor Monitor Monitor Respiratory Rate (12-18) 18 18 16 Respiratory rate source Observation Observation Observation Oxygen Delivery Method Room Air Room Air Blood Pressure (90/60-120/80) 166/80 H 163/93 H 172/73 H Blood Pressure Mean (mm Hg) 108 116 106 Source Monitor Monitor Monitor Position Semi-Fowlers Semi-Fowlers Sitting Blood Pressure Location Right Arm Left Arm Right Arm History Since Last Visit- (Skip if this is Patient's initial visit) Have you changed medications since your No No No last visit? Any new allergies or adverse reactions No No No Had a fall/change in ADL's that may No No No increase risk of falls Signs or symptoms of abuse and/or No No No neglect since last visit Have you been in the hospital since your No No No last visit? Has dressing in place as prescribed Yes Yes Yes Has compression in place as prescribed Yes N/A Yes Has offloadiing in place as prescribed N/A N/A Yes Experienced any changes in pain level or No No No management Left Footwear No Footwear Surgical Shoe with pressure relief insole Right Footwear No Footwear Surgical Shoe with pressure relief insole Pain Scale: 0-10 Numeric Is Patient Pain Free? Yes Yes Yes WC - Nurse 1 - General Ulcer Measurement Start: 10/15/24 08:49 Freq: Status: Active Protocol: Activity Type Activity Date Activity User E-sign Co-sign Detail Recorded Client Recorded Date Recorded By Document 10/15/24 08:49 RB [id number] 10/15/24 08:53 RB Document 10/22/24 08:34 KW [id number] 10/22/24 08:46 KW Document 10/29/24 10:09 [id number] 10/29/24 10:12 10/15/24 10/22/24 10/29/24 08:49 08:34 10:09 Wound Center Nurse 1 4 LT LAT FOOT -Combined with other wound No -Current Size (cm) - Length 0.9 5 9.0 -Current Size (cm) - Width 6.8 0.5 1.0 -Current Size (cm) - Depth 0.4 0.1 0.1 -Total Square Cm 6.12 2.5 9.00 -Date of Last Picture (Recall this 10/22/24 10/29/24 field) -Photo Taken Yes -Epithelialization Medium 34-66% -Tunneling No No -Undermining/Tunneling Yes No -Undermining/Tunneling Starts (O'clock 12 ) -Undermining/Tunneling Ends (O'clock) 12 -Maximum Distance (cm) 0.8 -Circular Undermining Yes No -Exudate Amt Medium Small Small -Exudate Type Purulent Serosanguineous Serosanguineous -Wound Margin Distinct, Distinct, Distinct, Outline Outline Outline Attached Attached Attached -Granulation Amt Medium (34-66%) Small (1-33%) Small (1-33%) -Granulation Quality [place],Red [place] -Slough/Fibrin Yes No -Necrosis Amt Large (67-100%) Large (67-100%) -Necrotic Tissue Type Adherent Slough -Structure Exposed N/A -Texture (Maxine-wound Skin Appearance) Assessed, Assessed Assessed Scarring -Moisture (Maxine-wound Skin Appearance) Assessed,Dry/ Assessed Assessed Scaly -Color (Maxine-wound Skin Appearance) Assessed Assessed Assessed -Temperature (Maxine-wound Skin No Abnormality No Abnormality No Abnormality Appearance) (Pt Warm) (Pt Warm) (Pt Warm) -Tenderness on Palpation (Maxine-wound No No No Skin Appearance) -Ulcer Cleansing Wound Cleanser Soap and Water Soap and Water -Foul Odor after Cleansing No No No -Anesthetic Used 5% Lidocaine 5% Lidocaine 5% Lidocaine Gel Gel Gel WC - Nurse 2 - General Ulcer CM Notes Start: 10/15/24 08:49 Freq: Status: Active Protocol: Activity Type Activity Date Activity User E-sign Co-sign Detail Recorded Client Recorded Date Recorded By Document 10/15/24 09:13 [id number] [id number] 10/15/24 09:21 JF Document 10/22/24 09:03 JF [id number] 10/22/24 09:05 Document 10/29/24 10:30 JF [id number] 10/29/24 10:34 JF Edit Result 10/29/24 10:30 JF (1) [id number] 10/29/24 10:36 JF (1) 4 LT LAT FOOT - Type of Bioengineered Tissue => Epifix 18mm Disc - Expiration Date => 05/16/29 - Product Lot Number => [id number] - Percent Used => 100 - Lot number of Saline Used => [id number] 10/15/24 10/22/24 10/29/24 09:13 09:03 10:30 Wound Center Nurse 2 4 LT LAT FOOT -Time 09:20 09:04 10:31 -Correct Patient Yes Yes Yes -Correct Side, Site, Position Yes Yes Yes -Correct Procedure Yes Yes Yes -Procedure Performed Yes Yes Yes -Type of Procedure Debridement Debridement Debridement -Clinical Debridement Muscle / Fascia Subcutaneous Subcutaneous -Tissue Removed Muscle Subcutaneous Subcutaneous -Post Debridement (cm) - Length 1.4 0.9 0.8 -Post Debridement (cm) - Width 5.2 2.1 1.6 -Post Debridement (cm) - Depth 0.3 0.1 0.1 -Total Square (Post) (cm) 7.28 1.89 1.28 -Area of Debridement (cm) - Length 1.4 0.9 0.8 -Area of Debridement (cm) - Width 5.2 2.1 1.6 -Total Square (Area) (cm) 7.28 1.89 1.28 -Tunneling No No No -Undermining/Tunneling No No -Circular Undermining No No No -Wound/Ulcer Outcome Not Healed Not Healed Not Healed -Ulcer Cleansing Rinsed/ Rinsed/ Rinsed/ Irrigated with Irrigated with Irrigated with Saline Saline Saline -Foul Odor after Cleansing No No No -Bioengineered Tissue No Yes Yes -Type of Bioengineered Tissue Epifix Epifix 18mm Disc -Expiration Date 03/16/29 05/16/29 -Product Lot Number [id number] -Percent Used 100 100 -Lot number of Saline Used [id number] -Bleeding Controlled with Pressure Pressure Pressure -Treatment Response Procedure Procedure Procedure Tolerated Well Tolerated Well Tolerated Well -Offloading Yes Yes Yes -Type of Offloading Surgical Shoe Surgical Shoe Surgical Shoe -Debridement - Subq, 1st 20sq cm No No -Debridement - Muscle / Fascia, 1st Yes 20sq cm -Apply Skin Sub - 1st 25 sq cm - Feet 1 1 -Epifix Application 1-4 (per sq cm) 4 -Epifix 18mm Disc Application 1-4 3 Pain Scale: 0-10 Numeric Is Patient Pain Free? Yes Yes Yes WC - Nurse 3 - General Ulcer D/C NN Start: 10/15/24 08:49 Freq: Status: Active Protocol: Activity Type Activity Date Activity User E-sign Co-sign Detail Recorded Client Recorded Date Recorded By Document 10/15/24 09:31 KW [id number] 10/15/24 09:32 KW Document 10/22/24 08:51 KW [id number] 10/22/24 09:20 KW Document 10/29/24 10:52 RB [id number] 10/29/24 10:54 RB 10/15/24 10/22/24 10/29/24 09:31 08:51 10:52 Wound Care Center Nurse 3 4 LT LAT FOOT -Ulcer Cleansing Rinsed/ Irrigated with Saline -Other Dressing betadine gauze ABD -Primary Dressing Covered/Secured with Dry Gauze & Dry Gauze & Dry Gauze & Roll Gauze, Roll Gauze, Roll Gauze, Secured with Secured with Secured with Tape Tape Tape LLE -Compression Wrap Freddie Wrap Freddie Wrap -Other 1 freddie Treatment Response Procedure Tolerated Well Pain Scale: 0-10 Numeric Is Patient Pain Free? Yes Yes Yes WC - Visit Discharge Discharge Condition Stable Stable Stable Ambulatory Status Wheelchair Wheelchair Wheelchair Transportation Private Auto Medication Reconcilliation completed & No No No provided to patient/care provider Clinical Summary of Care Provided Yes Yes Yes Assessment/Plan Assessment/Plan (1) Non-pressure chronic ulcer of other part of left foot with necrosis of muscle: CODE(S): L97.523 - Non-pressure chronic ulcer of other part of left foot with necrosis of muscle PLAN: Patient was examined and evaluated. All findings were discussed with the patient. All questions were answered to the patient's satisfaction. Excisional debridement down to and including subcutaneous tissue, fascia and muscle, with a number 5 mm dermal curette to the left lateral full-thickness wound. Predebridement measurement was sanguinous crust. Postdebridement measurement is 0.8 x 1.6 x 0.1cm EpiFix 18 mm disc was applied to the left full-thickness ulceration with 100% use. 10th application. The graft site was free and clear of any infection. The wound/skin graft substitute was dressed with nonadherent bandage secured in place with Steri-Strips followed by bolster dressing as well as a double layer Tubigrip. Patient will continue take his antibiotic as prescribed. He will leave the dressing clean dry and intact. Educated the patient on the 10th application process as we will leave the graft intact next week and then he will be rewrapped for an additional week and if the patient is completely healed by week 2 he will be discharged from the wound care center. Follow-up at the wound care center with Dr. Barnett in 1 week.
--- NOTE | 2024-10-30 09:52 | WC ---
PHOTO 10/29/24 LEFT LATERAL FOOT
--- NOTE | 2024-10-30 09:54 | WC ---
PHOTO 10/29/24 LEFT LATERAL FOOT
[2024-11-05 09:47] VITALS: BP 156/81; PULSE 86; RESP 16; TEMP 36.3; BMI 35.7
--- NOTE | 2024-11-05 11:33 | PCM.WC.PN ---
History of Present Illness Date of Service: 11/05/24 Chief Complaint: Left foot full-thickness wound History of Wound: Stable left foot wound with amniotic graft substitute. Progress of Wound: Stable full-thickness wound with graft application left foot Subjective Subjective Mr. Palacios is a 74-year-old diabetic male presenting to the wound care center for follow-up evaluation full-thickness wounds and ending on skin graft substitute to the left lateral foot. Patient has left the dressing clean dry and intact. His blood sugars well-controlled. Denies any strikethrough through the dressing. Denies trauma. Denies constitutional symptoms. No other pedal complaints at this time. Objective Data Objective Data Vital Signs: Vital Signs Temp Pulse Resp BP O2 Del Method 97.4 F L 86 16 156/81 H Room Air 11/05/24 09:47 11/05/24 09:47 11/05/24 09:47 11/05/24 09:47 10/29/24 10:09 Oxygen Delivery Method Room Air Weight: 122.924 kg Body Mass Index (BMI) 35.7 Lab / Micro Data Micro: Microbiology 10/15/24 09:16 Ulcer, Decubitus - Left Foot Gram Stain - Final 10/15/24 09:16 Ulcer, Decubitus - Left Foot Wound Culture - Final Meth. resistant Staph. aureus 10/15/24 09:16 Ulcer, Decubitus - Left Foot Anaerobic Culture - Final Anaerobic cocci Physical Exam Narrative Vascular: DP and PT pulses are faintly palpable to left extremity. CFT is brisk. Skin temp great is warm to warm from proximal ankles to distal digits to left lower extremity. Nonpitting edema appreciated left lower extremity. No erythema to the left foot. Neurological: Light touch intact. Protective station is absent. Dermatological: Evidence of full-thickness wound to the lateral left foot with graft intact. No drainage erythema or sign of infection. Musculoskeletal: No pain on palpation to the full-thickness wound to the left foot. No pain with calf pressure. Debridement Note Debridement Note Post-Debridement Measurements and Additional Note: Post-Debridement Measurements/Treatment WC - Nurse 1 - General Ulcer Assessment Start: 10/15/24 08:49 Freq: Status: Active Protocol: LANIE.LOWEXT Activity Type Activity Date Activity User E-sign Co-sign Detail Recorded Client Recorded Date Recorded By Document 10/15/24 08:49 RB [id number] 10/15/24 08:53 RB Document 10/22/24 08:34 KW [id number] 10/22/24 08:46 KW Document 10/29/24 10:09 GM [id number] 10/29/24 10:12 GM Document 11/05/24 09:47 CP [id number] 11/05/24 09:51 CP 10/15/24 10/22/24 10/29/24 08:49 08:34 10:09 WC - Today's Visit Information Type of service Follow-up Visit Follow-up Visit Follow-up Visit (Physician/CLASSIFICATIONS OFFICER CC/CM (Physician/CLASSIFICATIONS OFFICER CC/CM (Physician/CLASSIFICATIONS OFFICER CC/CM ) ) ) Arrival Mode Wheelchair Wheelchair Wheelchair Transfer Assistance Manual None Patient Identification Verified (Name & Yes Yes Yes ) Patient Requires Transmission-Based No No Precautions Height and Weight Body Mass Index (BMI) 35.7 35.7 35.7 BMI Classification Obese Obese Obese Vital Signs Temperature (97.8 F-99.1 F) 97 F L 97.8 F 97.6 F L Temperature Source Temporal Temporal Temporal Pulse Rate (60-100) 96 90 77 Pulse Location Monitor Monitor Monitor Respiratory Rate (12-18) 18 18 16 Respiratory rate source Observation Observation Observation Oxygen Delivery Method Room Air Room Air Blood Pressure (90/60-120/80) 166/80 H 163/93 H 172/73 H Blood Pressure Mean (mm Hg) 108 116 106 Source Monitor Monitor Monitor Position Semi-Fowlers Semi-Fowlers Sitting Blood Pressure Location Right Arm Left Arm Right Arm History Since Last Visit- (Skip if this is Patient's initial visit) Have you changed medications since your No No No last visit? Any new allergies or adverse reactions No No No Had a fall/change in ADL's that may No No No increase risk of falls Signs or symptoms of abuse and/or No No No neglect since last visit Have you been in the hospital since your No No No last visit? Has dressing in place as prescribed Yes Yes Yes Has compression in place as prescribed Yes N/A Yes Has offloadiing in place as prescribed N/A N/A Yes Experienced any changes in pain level or No No No management Left Footwear No Footwear Surgical Shoe with pressure relief insole Right Footwear No Footwear Surgical Shoe with pressure relief insole Pain Scale: 0-10 Numeric Is Patient Pain Free? Yes Yes Yes 11/05/24 09:47 - Today's Visit Information Type of service Follow-up Visit (Physician/CLASSIFICATIONS OFFICER CC/CM ) Arrival Mode Wheelchair Transfer Assistance Patient Identification Verified (Name & Yes ) Patient Requires Transmission-Based Precautions Height and Weight Body Mass Index (BMI) 35.7 BMI Classification Obese Vital Signs Temperature (97.8 F-99.1 F) 97.4 F L Temperature Source Temporal Pulse Rate (60-100) 86 Pulse Location Monitor Respiratory Rate (12-18) 16 Respiratory rate source Observation Oxygen Delivery Method Blood Pressure (90/60-120/80) 156/81 H Blood Pressure Mean (mm Hg) 106 Source Monitor Position Sitting Blood Pressure Location Left Arm History Since Last Visit- (Skip if this is Patient's initial visit) Have you changed medications since your No last visit? Any new allergies or adverse reactions No Had a fall/change in ADL's that may No increase risk of falls Signs or symptoms of abuse and/or No neglect since last visit Have you been in the hospital since your No last visit? Has dressing in place as prescribed Yes Has compression in place as prescribed Yes Has offloadiing in place as prescribed N/A Experienced any changes in pain level or No management Left Footwear Right Footwear Pain Scale: 0-10 Numeric Is Patient Pain Free? Yes - Nurse 1 - General Ulcer Measurement Start: 10/15/24 08:49 Freq: Status: Active Protocol: Activity Type Activity Date Activity User E-sign Co-sign Detail Recorded Client Recorded Date Recorded By Document 10/15/24 08:49 RB [id number] 10/15/24 08:53 RB Document 10/22/24 08:34 KW [id number] 10/22/24 08:46 KW Document 10/29/24 10:09 GM [id number] 10/29/24 10:12 GM Document 11/05/24 09:47 CP [id number] 11/05/24 09:51 CP 10/15/24 10/22/24 10/29/24 08:49 08:34 10:09 Wound Center Nurse 1 4 LT LAT FOOT -Combined with other wound No -Current Size (cm) - Length 0.9 5 9.0 -Current Size (cm) - Width 6.8 0.5 1.0 -Current Size (cm) - Depth 0.4 0.1 0.1 -Total Square Cm 6.12 2.5 9.00 -Date of Last Picture (Recall this 10/22/24 10/29/24 field) -Photo Taken Yes -Epithelialization Medium 34-66% -Tunneling No No -Undermining/Tunneling Yes No -Undermining/Tunneling Starts (O'clock 12 ) -Undermining/Tunneling Ends (O'clock) 12 -Maximum Distance (cm) 0.8 -Circular Undermining Yes No -Change in Wound Grade/Stage -Exudate Amt Medium Small Small -Exudate Type Purulent Serosanguineous Serosanguineous -Wound Margin Distinct, Distinct, Distinct, Outline Outline Outline Attached Attached Attached -Granulation Amt Medium (34-66%) Small (1-33%) Small (1-33%) -Granulation Quality [place] -Slough/Fibrin Yes No -Necrosis Amt Large (67-100%) Large (67-100%) -Necrotic Tissue Type Adherent Slough -Structure Exposed N/A -Texture (Maxine-wound Skin Appearance) Assessed, Assessed Assessed Scarring -Moisture (Maxine-wound Skin Appearance) Assessed,Dry/ Assessed Assessed Scaly -Color (Maxine-wound Skin Appearance) Assessed Assessed Assessed -Temperature (Maxine-wound Skin No Abnormality No Abnormality No Abnormality Appearance) (Pt Warm) (Pt Warm) (Pt Warm) -Tenderness on Palpation (Maxine-wound No No No Skin Appearance) -Ulcer Cleansing Wound Cleanser Soap and Water Soap and Water -Foul Odor after Cleansing No No No -Anesthetic Used 5% Lidocaine 5% Lidocaine 5% Lidocaine Gel Gel Gel 11/05/24 09:47 Wound Center Nurse 1 4 LT LAT FOOT -Combined with other wound -Current Size (cm) - Length 0.1 -Current Size (cm) - Width 0.1 -Current Size (cm) - Depth 0.1 -Total Square Cm 0.01 -Date of Last Picture (Recall this field) -Photo Taken -Epithelialization -Tunneling -Undermining/Tunneling -Undermining/Tunneling Starts (O'clock ) -Undermining/Tunneling Ends (O'clock) -Maximum Distance (cm) -Circular Undermining -Change in Wound Grade/Stage No -Exudate Amt None Present -Exudate Type -Wound Margin -Granulation Amt -Granulation Quality -Slough/Fibrin -Necrosis Amt -Necrotic Tissue Type -Structure Exposed N/A -Texture (Maxine-wound Skin Appearance) -Moisture (Maxine-wound Skin Appearance) Dry/Scaly -Color (Maxine-wound Skin Appearance) No Abnormality -Temperature (Maxine-wound Skin No Abnormality Appearance) (Pt Warm) -Tenderness on Palpation (Maxine-wound No Skin Appearance) -Ulcer Cleansing Soap and Water -Foul Odor after Cleansing No -Anesthetic Used 5% Lidocaine Gel WC - Nurse 2 - General Ulcer CM Notes Start: 10/15/24 08:49 Freq: Status: Active Protocol: Activity Type Activity Date Activity User E-sign Co-sign Detail Recorded Client Recorded Date Recorded By Document 10/15/24 09:13 [id number] 10/15/24 09:21 JF Document 10/22/24 09:03 JF [id number] 10/22/24 09:05 JF Document 10/29/24 10:30 JF [id number] 10/29/24 10:34 Edit Result 10/29/24 10:30 JF (1) [id number] 10/29/24 10:36 Document 11/05/24 09:58 JF [id number] 11/05/24 09:59 (1) 4 LT LAT FOOT - Type of Bioengineered Tissue => Epifix 18mm Disc - Expiration Date => 05/16/29 - Product Lot Number => [id number] - Percent Used => 100 - Lot number of Saline Used => [id number] 10/15/24 10/22/24 10/29/24 09:13 09:03 10:30 Wound Center Nurse 2 4 LT LAT FOOT -Time 09:20 09:04 10:31 -Correct Patient Yes Yes Yes -Correct Side, Site, Position Yes Yes Yes -Correct Procedure Yes Yes Yes -Procedure Performed Yes Yes Yes -Type of Procedure Debridement Debridement Debridement -Clinical Debridement Muscle / Fascia Subcutaneous Subcutaneous -Tissue Removed Muscle Subcutaneous Subcutaneous -Post Debridement (cm) - Length 1.4 0.9 0.8 -Post Debridement (cm) - Width 5.2 2.1 1.6 -Post Debridement (cm) - Depth 0.3 0.1 0.1 -Total Square (Post) (cm) 7.28 1.89 1.28 -Area of Debridement (cm) - Length 1.4 0.9 0.8 -Area of Debridement (cm) - Width 5.2 2.1 1.6 -Total Square (Area) (cm) 7.28 1.89 1.28 -Tunneling No No No -Undermining/Tunneling No No -Circular Undermining No No No -Wound/Ulcer Outcome Not Healed Not Healed Not Healed -Ulcer Cleansing Rinsed/ Rinsed/ Rinsed/ Irrigated with Irrigated with Irrigated with Saline Saline Saline -Foul Odor after Cleansing No No No -Bioengineered Tissue No Yes Yes -Type of Bioengineered Tissue Epifix Epifix 18mm Disc -Expiration Date 03/16/29 05/16/29 -Product Lot Number [id number] -Percent Used 100 100 -Lot number of Saline Used [id number] -Bleeding Controlled with Pressure Pressure Pressure -Treatment Response Procedure Procedure Procedure Tolerated Well Tolerated Well Tolerated Well -Offloading Yes Yes Yes -Type of Offloading Surgical Shoe Surgical Shoe Surgical Shoe -Debridement - Subq, 1st 20sq cm No No -Debridement - Muscle / Fascia, 1st Yes 20sq cm -Apply Skin Sub - 1st 25 sq cm - Feet 1 1 -Epifix Application 1-4 (per sq cm) 4 -Epifix 18mm Disc Application 1-4 3 Pain Scale: 0-10 Numeric Is Patient Pain Free? Yes Yes Yes 11/05/24 09:58 Wound Center Nurse 2 4 LT LAT FOOT -Time -Correct Patient Yes -Correct Side, Site, Position No -Correct Procedure No -Procedure Performed No -Type of Procedure -Clinical Debridement -Tissue Removed -Post Debridement (cm) - Length -Post Debridement (cm) - Width -Post Debridement (cm) - Depth -Total Square (Post) (cm) -Area of Debridement (cm) - Length -Area of Debridement (cm) - Width -Total Square (Area) (cm) -Tunneling -Undermining/Tunneling -Circular Undermining -Wound/Ulcer Outcome Not Healed -Ulcer Cleansing -Foul Odor after Cleansing -Bioengineered Tissue -Type of Bioengineered Tissue -Expiration Date -Product Lot Number -Percent Used -Lot number of Saline Used -Bleeding Controlled with -Treatment Response -Offloading -Type of Offloading -Debridement - Subq, 1st 20sq cm -Debridement - Muscle / Fascia, 1st 20sq cm -Apply Skin Sub - 1st 25 sq cm - Feet -Epifix Application 1-4 (per sq cm) -Epifix 18mm Disc Application 1-4 Pain Scale: 0-10 Numeric Is Patient Pain Free? Yes - Nurse 3 - General Ulcer D/C NN Start: 10/15/24 08:49 Freq: Status: Active Protocol: Activity Type Activity Date Activity User E-sign Co-sign Detail Recorded Client Recorded Date Recorded By Document 10/15/24 09:31 KW [id number] 10/15/24 09:32 KW Document 10/22/24 08:51 KW [id number] 10/22/24 09:20 KW Document 10/29/24 10:52 RB [id number] 10/29/24 10:54 RB Document 11/05/24 10:15 CP [id number] 11/05/24 10:15 CP Edit Result 11/05/24 10:15 CP (1) [id number] 11/05/24 11:16 CP (1) LLE - Tubular Bandage => Single Layer - Size of Tubigrip Used => Size F - Size F ($) => 1 10/15/24 10/22/24 10/29/24 09:31 08:51 10:52 Wound Care Center Nurse 3 4 LT LAT FOOT -Ulcer Cleansing Rinsed/ Irrigated with Saline -Other Dressing betadine gauze ABD -Primary Dressing Covered/Secured with Dry Gauze & Dry Gauze & Dry Gauze & Roll Gauze, Roll Gauze, Roll Gauze, Secured with Secured with Secured with Tape Tape Tape LLE -Compression Wrap Freddie Wrap Freddie Wrap -Tubular Bandage -Size of Tubigrip Used -Size F ($) -Other 1 freddie Treatment Response Procedure Tolerated Well Pain Scale: 0-10 Numeric Is Patient Pain Free? Yes Yes Yes - Visit Discharge Discharge Condition Stable Stable Stable Ambulatory Status Wheelchair Wheelchair Wheelchair Transportation Private Auto Medication Reconcilliation completed & No No No provided to patient/care provider Clinical Summary of Care Provided Yes Yes Yes 11/05/24 10:15 Wound Care Center Nurse 3 4 LT LAT FOOT -Ulcer Cleansing -Other Dressing -Primary Dressing Covered/Secured with Dry Gauze & Roll Gauze, Secured with Tape LLE -Compression Wrap -Tubular Bandage Single Layer -Size of Tubigrip Used Size F -Size F ($) 1 -Other Treatment Response Pain Scale: 0-10 Numeric Is Patient Pain Free? Yes WC - Visit Discharge Discharge Condition Stable Ambulatory Status Wheelchair Transportation Private Auto Medication Reconcilliation completed & No provided to patient/care provider Clinical Summary of Care Provided Yes Assessment/Plan Assessment/Plan (1) Non-pressure chronic ulcer of other part of left foot with necrosis of muscle: CODE(S): L97.523 - Non-pressure chronic ulcer of other part of left foot with necrosis of muscle PLAN: Patient was examined and evaluated. All findings were discussed with the patient. All questions were answered to the patient's satisfaction. Of the patient's full-thickness wound with graft intact is looking good at this time. Will leave the graft clean dry and intact cover with dry sterile dressing and Tubigrip. Patient will change as needed. He will continue strict blood sugar control. He is grateful for his care. Follow-up at the wound care center with Dr. Barnett in 1 week.
== END 2024-11-12 23:59 | disposition home or self-care (01) ==
LOC: WC 09:45
PROVIDERS: PCP Family Medicine; Referring Provider Podiatrist; Visit Provider Podiatrist Foot & Ankle Surgery
DX: E11.621 Type 2 diabetes mellitus with foot ulcer (principal); L97.523 Non-pressure chronic ulcer of other part of left foot with necrosis of muscle; Z79.4 Long term (current) use of insulin; L02.612 Cutaneous abscess of left foot; R60.0 Localized edema; Z79.02 Long term (current) use of antithrombotics/antiplatelets; Z79.82 Long term (current) use of aspirin; Z79.84 Long term (current) use of oral hypoglycemic drugs; Z79.899 Other long term (current) drug therapy; Z79.890 Hormone replacement therapy
CPT/HCPCS: 11043; 15275; 87070; 87075; 87077; 87186; 87205; 99213; Q4186; G0463

== ENCOUNTER 2024-11-19 08:17 | Outpatient (RCR) | payer MEDICARE, SELFPAY ==
[2024-11-13 00:29] VITALS: BP 156/81; PULSE 86; RESP 16; TEMP 36.3; BMI 35.7
[2024-11-19 09:49] VITALS: BP 150/69; PULSE 79; RESP 18; BMI 35.7
--- NOTE | 2024-11-19 11:07 | PCM.WC.PN ---
History of Present Illness Date of Service: 11/19/24 Chief Complaint: Left foot full-thickness wound History of Wound: Stable left foot wound with amniotic graft substitute. Progress of Wound: Stable full-thickness wound with graft application left foot Subjective Subjective Mr. Palacios is a 74-year-old diabetic male presenting to wound care center today for follow-up evaluation of full-thickness wound with application of amniotic skin graft substitute to the left lateral foot. Patient has completed all of the amniotic skin graft application and states that his wound is healed. His blood sugars well-controlled. He is not taking metformin anymore and noticed improvement to swelling to the bilateral lower extremity. He denies any new open wounds or abrasions. Denies trauma. Denies constitutional symptoms. No other pedal complaints at this time. Objective Data Objective Data Vital Signs: Vital Signs Temp Pulse Resp BP O2 Del Method 97.4 F L 79 18 150/69 H Room Air 11/13/24 00:29 11/19/24 09:49 11/19/24 09:49 11/19/24 09:49 11/19/24 09:49 Oxygen Delivery Method Room Air Weight: 122.924 kg Body Mass Index (BMI) 35.7 Lab / Micro Data Micro: Microbiology 10/15/24 09:16 Ulcer, Decubitus - Left Foot Gram Stain - Final 10/15/24 09:16 Ulcer, Decubitus - Left Foot Wound Culture - Final Meth. resistant Staph. aureus 10/15/24 09:16 Ulcer, Decubitus - Left Foot Anaerobic Culture - Final Anaerobic cocci Physical Exam Narrative Vascular: DP and PT pulses are faintly palpable to left extremity. CFT is brisk. Skin temp great is warm to warm from proximal ankles to distal digits to left lower extremity. Nonpitting edema appreciated left lower extremity. No erythema to the left foot. Neurological: Light touch intact. Protective station is absent. Dermatological: Full-thickness wound to lateral left foot is now healed. No new breakdown of skin or concern for infection. Musculoskeletal: No pain on palpation to the full-thickness wound to the left foot. No pain with calf pressure. 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 ) Arrival Mode Wheelchair Transfer Assistance None Patient Identification Verified (Name & Yes ) Patient Requires Transmission-Based No Precautions Height and Weight Body Mass Index (BMI) 35.7 BMI Classification Obese Vital Signs Pulse Rate (60-100) 79 Pulse Location Monitor Respiratory Rate (12-18) 18 Respiratory rate source Observation Oxygen Delivery Method Room Air Blood Pressure (90/60-120/80) 150/69 H Blood Pressure Mean (mm Hg) 96 Source Monitor Position Sitting Blood Pressure Location Left Arm History Since Last Visit- (Skip if this is Patient's initial visit) Have you changed medications since your No last visit? Any new allergies or adverse reactions No Had a fall/change in ADL's that may No increase risk of falls Signs or symptoms of abuse and/or No neglect since last visit Have you been in the hospital since your No last visit? Has dressing in place as prescribed Yes Has compression in place as prescribed Yes Has offloadiing in place as prescribed Yes Experienced any changes in pain level or No management Left Footwear Surgical Shoe with pressure relief insole Right Footwear Surgical Shoe with pressure relief insole Pain Scale: 0-10 Numeric Is Patient Pain Free? Yes - Nurse 1 - General Ulcer Measurement Start: 11/19/24 09:49 Freq: Status: Active Protocol: Activity Type Activity Date Activity User E-sign Co-sign Detail Recorded Client Recorded Date Recorded By Document 11/19/24 09:49 [id number] 11/19/24 09:57 11/19/24 09:49 Wound Center Nurse 1 4 LT LAT FOOT -Current Size (cm) - Length 0.1 -Current Size (cm) - Width 0.1 -Current Size (cm) - Depth 0.1 -Total Square Cm 0.01 -Date of Last Picture (Recall this 11/19/24 field) -Photo Taken Yes -Epithelialization Large 67-100% -Tunneling No -Undermining/Tunneling No -Circular Undermining No -Exudate Amt None Present -Wound Margin Distinct, Outline Attached -Slough/Fibrin Yes -Texture (Maxine-wound Skin Appearance) Assessed -Moisture (Maxine-wound Skin Appearance) Assessed -Color (Maxine-wound Skin Appearance) Assessed -Temperature (Maxine-wound Skin No Abnormality Appearance) (Pt Warm) -Tenderness on Palpation (Maxine-wound No Skin Appearance) -Ulcer Cleansing Soap and Water -Foul Odor after Cleansing No -Anesthetic Used 5% Lidocaine Gel -Wound Comment(s) scabbed over, patient thinks wound is healed Lower Limb Edema Present No Left Calf (cm) 39.3 Left Ankle (cm) 28 - Nurse 2 - General Ulcer CM Notes Start: 11/19/24 09:49 Freq: Status: Active Protocol: Activity Type Activity Date Activity User E-sign Co-sign Detail Recorded Client Recorded Date Recorded By Document 11/19/24 10:37 [id number] 11/19/24 10:40 11/19/24 10:37 Wound Center Nurse 2 4 LT LAT FOOT -Time 10:37 -Correct Patient Yes -Correct Side, Site, Position No -Correct Procedure No -Procedure Performed No -Post Debridement (cm) - Length 0 -Post Debridement (cm) - Width 0 -Post Debridement (cm) - Depth 0 -Total Square (Post) (cm) 0 -Area of Debridement (cm) - Length 0 -Area of Debridement (cm) - Width 0 -Total Square (Area) (cm) 0 -Wound/Ulcer Outcome Healed- Epithelialized Pain Scale: 0-10 Numeric Is Patient Pain Free? Yes - Nurse 3 - General Ulcer D/C NN Start: 11/19/24 09:49 Freq: Status: Active Protocol: Activity Type Activity Date Activity User E-sign Co-sign Detail Recorded Client Recorded Date Recorded By Document 11/19/24 10:46 [id number] 11/19/24 10:46 11/19/24 10:46 Wound Care Center Nurse 3 LLE -Lotion applied to leg before No compression wrap -Tubular Bandage Single Layer -Size of Tubigrip Used Size D -Size D ($) 2 Pain Scale: 0-10 Numeric Is Patient Pain Free? Yes - Visit Discharge Discharge Condition Stable Ambulatory Status Wheelchair Transportation Private Auto Clinical Summary of Care Provided Yes Assessment/Plan Assessment/Plan (1) Non-pressure chronic ulcer of other part of left foot with necrosis of muscle: CODE(S): L97.523 - Non-pressure chronic ulcer of other part of left foot with necrosis of muscle PLAN: Patient was examined and evaluated. All findings were discussed with the patient. All questions were answered to the patient's satisfaction. After review of the patient's full-thickness wound that showed 100% healing at this time. The patient will be discharged at the wound care center and to follow-up in office within 1 week. Will move forward with authorization for diabetic shoes and inserts to help offload the amputation site area to the left foot and establish better ground control with custom inserts and diabetic shoes. Patient will continue strict blood sugar control. Patient was grateful for his care and will be discharged today.
--- NOTE | 2024-11-20 10:26 | WC ---
PHOTO 11/19/24 LEFT LATERAL FOOT
== END 2024-12-11 14:35 | disposition home or self-care (01) ==
LOC: WC 08:17
PROVIDERS: PCP Family Medicine; Referring Provider Podiatrist; Visit Provider Podiatrist Foot & Ankle Surgery
DX: Z09 Encounter for follow-up examination after completed treatment for conditions other than malignant neoplasm (principal); E11.9 Type 2 diabetes mellitus without complications; Z79.82 Long term (current) use of aspirin; Z79.02 Long term (current) use of antithrombotics/antiplatelets; Z79.84 Long term (current) use of oral hypoglycemic drugs; Z79.899 Other long term (current) drug therapy
CPT/HCPCS: 99213; G0463

== ENCOUNTER → 2025-01-01 | Outpatient (CLI) | payer MEDICARE, SELFPAY ==
[2025-01-01 17:55] LABS: ALB/GLOB Ratio 1.2 RATIO (0.9-2.4); AST(SGOT) 18 U/L (<=37); Alanine Aminotransfer ALT/SGPT 15 U/L (<=46); Albumin, Serum 3.9 g/dL (3.4-4.8); Alkaline Phosphatase 78 U/L (40-129); Anion Gap 13 (5-15); BUN 16 mg/dL (4-19); BUN/Creat Ratio 18.5 RATIO (10-20); Calcium,Total 9.8 mg/dL (7.6-11.0); Chloride 103 mmol/L (98-108); Creatinine, Serum 0.85 mg/dL (0.70-1.20); EST Glomerular Filtration Rate 91 (>60); Globulin 3.2 g/dL (2.2-4.2); Glucose 143 mg/dL (70-99); Pro- Brain NATRIURETIC PEPTIDE 38 pg/mL (<=900); Sodium Level 141 mmol/L (133-145); Total Bilirubin 0.23 mg/dL (0.00-1.30)
== END | disposition home or self-care (01) ==
LOC: BFHLAB 14:32
PROVIDERS: PCP Family Medicine; Visit Provider Family Medicine
DX: R60.9 Edema, unspecified (principal); I50.9 Heart failure, unspecified; E03.9 Hypothyroidism, unspecified
CPT/HCPCS: 36415; 80053; 83880; 84443

== ENCOUNTER → 2025-02-26 | Outpatient (CLI) | payer MEDICARE, SELFPAY ==
[2025-02-26 12:51] LABS: Anion Gap 16 (5-15); BUN 55 mg/dL (4-19); BUN/Creat Ratio 31.0 RATIO (10-20); Calcium,Total 10.2 mg/dL (7.6-11.0); Carbon Dioxide 26.4 mmol/L (21.0-32.0); Chloride 99 mmol/L (98-108); Glucose 175 mg/dL (70-99); Potassium 4.2 mmol/L (3.3-5.1)
--- OUTSIDE RECORDS SUMMARY | 2025-02-26 18:05 | XMS RPT_ITS | CCD ---
Author Organization [facility] Care Team Providers Care Candy Catcher Name Role Phone Dr. Floyd Ricketts DO Primary Care Provider Dr. Carlos Cazares DO Emergency Provider Pablo CASSIDY, Dr. Barrientos Admit Provider Dr. Floyd Shah DO Attending Provider Dr. Floyd Shah DO Other Provider Kashif MERINO, Dr. Wright Other Provider Sara MONTEIRO, Dr. Narayan Other Provider Dr. Tyson Kunz MD Other Provider Dr. Tyson Alvarez DO Other Provider Dr. Floyd Shah DO Referring Provider Dr. Tyson Kunz MD Attending Provider Dr. Tyson Alvarez DO Attending Provider Dr. Tyson Kunz MD Referring Provider Kajal Webber Attending Provider Dr. Felipe Barnett DPM Attending Provider Dr. Sylvain Ruiz DPM Referring Provider Dr. Floyd Ricketts DO Attending Provider Dr. Floyd Shah DO Referring Provider Dr. Tyson Kunz MD Attending Provider Dr. Floyd Ricketts DO Primary Care Provider Barnett DPM, Dr. Wang Attending Provider Sara DPM, Dr. Narayan Referring Provider Jamarcus DO, Dr. Barrientos Primary Care Provider Houston DPM, Dr. Wang Attending Provider Sara DPM, Dr. Narayan Referring Provider Kyle Rowland Consulting Unavailable Jamarcus, Floyd Primary Care Unavailable Tereletsky, Floyd Attending Unavailable Tereletsky, Floyd Admitting Unavailable Wunning, Sylvain Consulting Unavailable Warrens, Tyson Consulting Unavailable Tereletsky, Floyd Consulting Unavailable Jopperi, Tyson Consulting Unavailable Warrens, Tyson Attending Unavailable Tereletsky, Floyd Referring Unavailable Warrens, Tyson Referring Unavailable Wunning, Sylvain Referring Unavailable Jamarcus, Floyd Primary Care Unavailable Barnett, Felipe Attending Unavailable Jamarcus, Floyd Attending Unavailable Jamarcus, Floyd Primary Care Unavailable Wunning, Sylvain Referring Unavailable Jamarcus, Floyd Primary Care Unavailable Barnett, Felipe Attending Unavailable Wunning, Sylvain Referring Unavailable Barnett, Felipe Attending Unavailable Jamarcus, Floyd Primary Care Unavailable Jamarcus, Floyd Attending Unavailable Jamarcus, Floyd Primary Care Unavailable Kajal Levy Attending Unavailable Jopperi, Tyson Attending Unavailable Jamarcus, Floyd Primary Care Unavailable Jamarcus, Floyd Attending Unavailable Wunning, Sylvain Referring Unavailable Barnett, Felipe Attending Unavailable Jamarcus, Flody Primary Care Unavailable Wunning, Sylvain Referring Unavailable Barnett, Felipe Attending Unavailable Jamarcus, Floyd Primary Care Unavailable Wunning, Sylvain Referring Unavailable Jamarcus, Floyd Primary Care Unavailable Barnett, Felipe Attending Unavailable Tereletsky, Floyd Admitting Unavailable Jamarcus, Floyd Primary Care Unavailable Kyle Rowland Consulting Unavailable Tereletsky, Floyd Attending Unavailable Wunning, Sylvain Consulting Unavailable Joaquina, Tyson Consulting Unavailable Tereletsky, Floyd Consulting Unavailable Jopperi, Tyson Consulting Unavailable Allergies Allergy Classification Reported Allergen(s) Allergy Type Date of Onset Reaction(s) Facility (1 source) risedronate; Translations: [RISEDRONATE SODIUM] [facility] OTHER; Translations: [OTHER] Propensity to adverse reactions (disorder) 9 [facility] Repository Medications Current Medications Medication Drug Class(es) Dates Sig (Normalized) Sig (Original) ampicillin 2000 mg / sulbactam 1000 mg injection (4 sources) Penicillin-class Antibacterial, beta Lactamase Inhibitor Start: 06-18-2024 Ampicillin-Sulbacta m 3 gram Recon Soln Active 3 g IV EVERY 8 HOURS 123 41 June 18, 2024 1:00am stop date 07/29/24. Dx foot osteo. Weekly bmp, cbc, and esr. Fax to [phone]. Routine picc care per protocol. ascorbic acid 500 mg oral capsule (4 sources) Vitamin C Start: 09-26-2017 take 1 capsule by mouth once daily Ascorbic Acid (Vitamin C) 500 MG capsule Active 500 mg PO DAILY September 26, 2017 12:00am atorvastatin 20 mg oral tablet (8 sources) HMG-CoA Reductase Inhibitor Start: 03-12-2020 End: 04-18-2021 take 1 tablet by mouth at bedtime Atorvastatin 20 MG tablet Active 20 mg PO AT BEDTIME April 18, 2021 10:37am doxycycline hyclate 100 mg oral capsule (4 sources) Tetracycline-cla ss Drug Start: 10-15-2024 End: 10-15-2024 take 1 capsule by mouth twice daily Doxycycline Hyclate 100 mg capsule Active 100 mg PO TWICE A DAY October 15, 2024 12:00am Geriatric Yhzaenrx-Ppnw-Ueta Tablet (4 sources) Start: 04-18-2021 Geriatric Uuhbwcpx-Avno-Ovjs Tablet Active 1 {tbl} PO DAILY April 18, 2021 12:00am insulin isophane, human 100 unt/ml injectable suspension (8 sources) Start: 04-18-2021 Insulin Nph Isoph U-100 Human (Novolin N Nph U-100 Insulin) 100 unit/mL suspension Active 40 U SC TWICE A DAY April 18, 2021 10:37am Start: 09-02-2020 End: 04-18-2021 Insulin Nph Isoph U-100 Melissa n (Novolin N Nph U-100 Insulin) 100 unit/mL suspension Discontinued 50 U SC TWICE A DAY September 02, 2020 1:00am April 18, 2021 10:37am levothyroxine sodium 0.125 mg oral tablet (12 sources) l-Thyroxine Start: 05-25-2020 End: 04-18-2021 take 1 tablet by mouth once daily Levothyroxine 125 mcg tablet Active 125 ug PO DAILY April 18, 2021 10:37am Start: 08-21-2017 End: 05-25-2020 take 1 tablet by mouth once daily Levothyroxine 100 MCG tablet Discontinued 100 ug PO DAILY August 21, 2017 1:00am May 25, 2020 9:49am lisinopril 10 mg oral tablet (8 sources) Angiotensin Converting Enzyme Inhibitor Start: 03-12-2020 End: 04-18-2021 take 1 tablet by mouth once daily Lisinopril 10 MG tablet Active 10 mg PO DAILY April 18, 2021 10:37am metFORMIN hydrochloride 1000 mg oral tablet (8 sources) Biguanide Start: 03-12-2020 End: 04-18-2021 take 1 tablet by mouth twice daily Metformin 1,000 MG tablet Active 1000 mg PO TWICE A DAY April 18, 2021 10:37am oxyCODONE hydrochloride 5 mg oral tablet (8 sources) Opioid Agonist Start: 06-19-2024 take 1 tablet by mouth every four hours as needed for pain Oxycodone 5 mg Tablet Active 5 mg PO EVERY 4 HOURS NEEDED as needed for Pain Score 4-10 12 2 June 19, 2024 Start: 08-24-2017 End: 08-30-2017 take 1 tablet by mouth every four hours as needed for pain Oxycodone 5 MG tablet Discontinued 5 mg PO EVERY 4 HOURS NEEDED as needed for Moderate Pain (pain scale 4-5) 5 August 24, 2017 1:00am August 30, 2017 8:20am Pen Needle, Diabetic 1 EACH needle (8 sources) Start: 06-11-2024 Pen Needle, Di abetic 1 EACH needle Active 1 NMA SC BEFORE MEALS AND AT BEDTIME June 11, 2024 1:00am Start: 03-12-2020 End: 06-11-2024 inject 1 dose by subcutaneous injection at bedtime Pen Needle, Diabetic 1 EACH needle Discontinued 1 NMA subcut BEFORE MEALS AND AT BEDTIME March 12, 2020 12:00am June 11, 2024 2:26pm Completed/Discontinued Medications Medication Drug Class(es) Dates Sig (Normalized) Sig (Original) acetaminophen 325 mg / HYDROcodone bitartrate 5 mg oral tablet (4 sources) Opioid Agonist Start: 07-21-2020 End: 07-28-2020 take 1-10 tablets by mouth every four hours as needed for pain Hydrocodone-Acetam inophen 1 EACH tablet Discontinued 1 NMA PO EVERY 4 HOURS NEEDED as needed for Pain 1-10 Or Fever 14 7 July 21, 2020 July 27, 2020 1:00am July 28, 2020 1:02am amoxicillin 875 mg / clavulanate 125 mg oral tablet (4 sources) Penicillin-class Antibacterial Start: 03-12-2020 End: 06-14-2020 take 1 tablet by mouth every twelve hours Amoxicillin-Pot Clavulanate 875 MG tablet Discontinued 875 mg PO Q12H March 12, 2020 12:00am June 14, 2020 10:35am aspirin 81 mg chewable tablet (12 sources) Platelet Aggregation Inhibitor, Nonsteroidal Anti-inflammatory Drug Start: 08-24-2017 End: 04-18-2021 take 1 tablet by mouth once daily Aspirin 81 MG tablet,chewable Discontinued 81 mg PO DAILY@0800 June 14, 2020 10:35am April 18, 2021 10:37am Hold for [address] Mims canagliflozin 100 mg oral tablet (4 sources) Sodium-Glucose Cotransporter 2 Inhibitor Start: 08-21-2017 End: 03-12-2020 take 1 tablet by mouth once daily Canagliflozin (Invokana) 100 MG tablet Discontinued 100 mg PO DAILY August 21, 2017 1:00am March 12, 2020 12:19pm cephalexin 500 mg oral capsule (4 sources) Cephalosporin Antibacterial Start: 08-24-2017 End: 09-12-2017 take 1 capsule by mouth every six hours Cephalexin 500 MG capsule Discontinued 500 mg PO EVERY 6 HOURS August 24, 2017 1:00am September 12, 2017 4:28pm ciprofloxacin 500 mg oral tablet (4 sources) Quinolone Antimicrobial Start: 04-22-2021 End: 06-10-2024 take 1 tablet by mouth twice daily Ciprofloxacin Hcl (Cipro) 500 mg tablet Discontinued 500 mg PO TWICE A DAY April 22, 2021 12:00am June 10, 2024 9:50am clopidogrel 75 mg oral tablet (12 sources) P2Y12 Platelet Inhibitor Start: 03-12-2020 End: 04-18-2021 take 1 tablet by mouth once daily Clopidogrel 75 MG tablet Discontinued 75 mg PO DAILY June 14, 2020 10:35am April 18, 2021 10:37am 3 ml insulin aspart, human 100 unt/ml pen injector (8 sources) Insulin Analog Start: 06-12-2020 End: 09-02-2020 Insulin Aspart U-100 100 UNITS/ML insulin pen Discontinued 35 U SC 3 TIMES DAILY WITH MEALS 0 June 14, 2020 10:35am September 02, 2020 3:33pm Hold if glucose less than 130 mg/dl 3 ml insulin glargine 100 unt/ml pen injector (8 sources) Insulin Analog Start: 06-13-2020 End: 09-02-2020 Insulin Glargine 100 UNITS/ML insulin pen Discontinued 50 U SC TWICE A DAY June 13, 2020 1:00am September 02, 2020 3:33pm Start: 03-12-2020 End: 03-31-2020 Insulin Glargine 100 UNITS/M L insulin pen Discontinued 50 U SC AT BEDTIME March 12, 2020 12:00am March 31, 2020 9:40pm 3 ml insulin lispro 100 unt/ml pen injector (4 sources) Insulin Analog Start: 03-12-2020 End: 03-31-2020 Insulin Lispro 100 UNIT/ML insulin pen Discontinued 25 U SC THREE TIMES DAILY BEFORE MEALS March 12, 2020 12:00am March 31, 2020 9:40pm insulin, regular, human 100 unt/ml injectable solution (8 sources) Insulin Start: 04-18-2021 End: 06-19-2024 Insulin Regular Human (Novolin R Regular U100 Insulin) 100 unit/mL solution Discontinued 40 U SC TWICE A DAY April 18, 2021 10:37am June 19, 2024 3:42pm Start: 09-02-2020 End: 04-18-2021 Insulin Regular Human (Novol in R Regular U-100 Insuln) 100 unit/mL solution Discontinued 35 U SC THREE TIMES A DAY September 02, 2020 1:00am April 18, 2021 10:37am 24 hr metFORMIN hydrochloride 1000 mg / SITagliptin 50 mg extended release oral tablet (4 sources) Biguanide, Dipeptidyl Peptidase 4 Inhibitor Start: 08-21-2017 End: 03-12-2020 Sitagliptin Phos-Metformin 1 EACH tablet, ER multiphase 24 hr Discontinued 1 {tbl} PO TWICE A DAY August 21, 2017 1:00am March 12, 2020 12:19pm pioglitazone 45 mg oral tablet (4 sources) Peroxisome Proliferator Receptor alpha Agonist, Peroxisome Proliferator Receptor gamma Agonist, Thiazolidinedione Start: 08-21-2017 End: 03-12-2020 take 1 tablet by mouth once daily Pioglitazone 45 MG tablet Discontinued 45 mg PO DAILY August 21, 2017 1:00am March 12, 2020 12:19pm potassium gluconate 2.5 meq oral tablet (4 sources) Start: 06-12-2020 End: 06-19-2024 Potassium 99 MG tablet Discontinued 200 mg PO TWICE A DAY June 12, 2020 1:00am June 19, 2024 3:43pm Problems Active Problems Problem Classification Problem Date Documented Date Episodic/Chronic Acquired foot deformities (4 sources) Hammer toe; Translations: [Other hammer toe(s) (acquired), left foot] 02-13-2018 Chronic Acquired foot deformities (4 sources) Hammer toe; Translations: [Other hammer toe(s) (acquired), right foot] 02-13-2018 Chronic Acquired foot deformities (4 sources) Metatarsophalangeal joint stiff; Translations: [Other deformities of toe(s) (acquired), unspecified foot] 03-20-2018 Episodic Chronic ulcer of skin (20 sources) Non-pressure chronic ulcer of other part of left foot with bone involvement without evidence of necrosis; Translations: [Non-pressure chronic ulcer of other part of left foot with bone involvement without e] Onset: 4 06-25-2024 Chronic Diabetes mellitus with complications (20 sources) Type 2 diabetes mellitus with foot ulcer; Translations: [Diabetic ulcer of left foot] Onset: 4 06-27-2024 Chronic Diabetes mellitus without complication (4 sources) Diabetes mellitus; Translations: [Type 2 diabetes mellitus without complications] 06-12-2020 Chronic Disorders of lipid metabolism (4 sources) Hyperlipidemia; Translations: [Hyperlipidemia, unspecified] 03-08-2020 Chronic Essential hypertension (6 sources) Hypertensive disorder; Translations: [Essential (primary) hypertension] 04-18-2021 Chronic Comment on above: per pt, controlled o n meds Fluid and electrolyte disorders (6 sources) Lactic acidosis; Translations: [Lactic acidosis] 06-27-2024 Episodic Gangrene (7 sources) Atherosclerosis of [place] arteries of extremities with gangrene, left leg; Translations: [Atherosclerosis of [place] artery of left lower extremity with gangrene] Onset: 4 06-11-2024 Chronic Genitourinary symptoms and ill-defined conditions (4 sources) Dustin hematuria; Translations: [Gross hematuria] 06-12-2020 Episodic Infective arthritis and osteomyelitis (except that caused by tuberculosis or sexually transmitted disease) (15 sources) Osteomyelitis of forefoot; Translations: [Osteomyelitis, unspecified] Onset: 4 06-12-2020 Chronic Other circulatory disease (19 sources) Peripheral vascular disease; Translations: [Other specified peripheral vascular diseases] 06-25-2024 Chronic Other circulatory disease (1 source) Other specified peripheral vascular diseases; Translations: [Other specified peripheral vascular diseases] Onset: 4 Chronic Other injuries and conditions due to external causes (4 sources) Delayed healing of wound; Translations: [Other injury of unspecified body region, subsequent encounter] 05-08-2018 Episodic Other nutritional; endocrine; and metabolic disorders (4 sources) Body mass index 30+ - obesity; Translations: [Obesity, unspecified] 03-08-2020 Chronic Peripheral and visceral atherosclerosis (6 sources) Peripheral vascular disease, unspecified; Translations: [Peripheral arterial disease] 09-12-2017 Chronic Residual codes; unclassified (4 sources) History of colonoscopy; Translations: [Other specified postprocedural states] 06-12-2020 Episodic Residual codes; unclassified (1 source) Localized edema; Translations: [Localized edema] Onset: 5 Episodic Residual codes; unclassified (1 source) Edema, unspecified; Translations: [Edema, unspecified] Onset: 5 Episodic Septicemia (except in labor) (4 sources) Sepsis; Translations: [Sepsis, unspecified organism] 06-12-2020 Episodic Skin and subcutaneous tissue infections (8 sources) Cellulitis of right foot; Translations: [Cellulitis of right lower limb] 04-06-2020 Episodic Superficial injury; contusion (8 sources) Foreign body of foot; Translations: [Superficial foreign body, left foot, initial encounter] 10-08-2024 Episodic Thyroid disorders (8 sources) Acquired hypothyroidism; Translations: [Hypothyroidism, unspecified] 05-25-2020 Chronic Unclassified (2 sources) In 2 to 4 weeks, call for an appointment Unclassified (2 sources) Appointment on 06/25/2024 at 8 AM-Dr. 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] Onset: 07-11-2024 Episodic Unclassified (4 sources) redness of right second toe 06-12-2020 Unclassified (4 sources) swelling of right second toe 06-12-2020 Results Test Name Value Interpretation Reference Range Facility Anion gap in Serum or Plasma Ordered By: Floyd Ricketts on 01-01-2025 Anion gap [Moles/Vol] 13 mmol/L - [facility] BUN/creatinine ratioOrdered By: Floyd Ricketts on 01-01-2025 Urea nitrogen/Creatinine [Mass ratio] 18.5 mg/mg 05-04 [facility] Bilirubin, totalOrdered By: Floyd Ricketts on 01-01-2025 Bilirubin [Mass/Vol] 0.23 mg/dL 0.00-1.30 [facility] Carbon dioxide, total [Moles /volume] in Central venous bloodOrdered By: Floyd Ricketts on 01-01-2025 CO2 [Moles/Vol] 25.0 mmol/L 21.0-32.0 [facility] Chloride assayOrdered By: Michael Ricketts on 01-01-2025 Chloride [Moles/Vol] 103 mmol/L 98-108 [facility] Comprehensive Metabolic Prof ilon 01-01-2025 Albumin [Mass/Vol] 3.9 g/dL Normal 3.4-4.8 [facility] Comment on above: Performed By: #### L 503.750, L501.9564, [id number] #### [facility] [address] [place], [address] Albumin/Globulin [Mass ratio] 1.2 {ratio} Normal 0.9-2.4 [facility] Comment on above: Performed By: #### L 503.7505, [id number], [id number] #### [facility] [address] [place], [address] ALK PHOS 78 U/L Normal 40-129 [facility] Comment on above: Performed By: #### L 503.7505, [id number], [id number] #### [facility] [address] [place], [address] ALT [Catalytic activity/Vol] 15 U/L Normal <=46 [facility] Comment on above: Performed By: #### L 503.7505, [id number], [id number] #### [facility] [address] [place], [address] AST [Catalytic activity/Vol] 18 U/L Normal <=37 [facility] Comment on above: Performed By: #### L 503.7505, [id number], [id number] #### [facility] [address] [place], [address] Bilirubin [Mass/Vol] 0.23 mg/dL Normal 0.00-1.30 [facility] Comment on above: Performed By: #### L 503.7505, [id number], [id number] #### [facility] [address] [place], [address] BUN/CRE 18.5 RATIO Normal 10-20 [facility] Comment on above: Performed By: #### L 503.7505, [id number], [id number] #### [facility] [address] [place], [address] Calcium [Mass/Vol] 9.8 mg/dL Normal 7.6-11.0 [facility] Comment on above: Performed By: #### L 503.7505, [id number], [id number] #### [facility] [address] [place], [address] Chloride [Moles/Vol] 103 mmol/L Normal 98-108 [facility] Comment on above: Performed By: #### L 503.7505, [id number], [id number] #### [facility] [address] [place], [address] CO2 [Moles/Vol] 25.0 mmol/L Normal 21.0-32.0 [facility] Comment on above: Performed By: #### L 503.7505, [id number], [id number] #### [facility] [address] [place], [address] Creatinine [Mass/Vol] 0.85 mg/dL Normal 0.70-1.20 [facility] Comment on above: Performed By: #### L 503.7505, [id number], [id number] #### [facility] [address] [place], [address] GAP 13 Normal 5-15 [facility] Comment on above: Performed By: #### L 503.7505, [id number], [id number] #### [facility] [address] [place], [address] GFR/1.73 sq M.predicted among non-blacks MDRD (S/P/Bld) [Vol rate/Area] 91 mL/min/{1.73_m2} Normal >60 [facility] Comment on above: Result Comment: mL/m in/1.73m2 CKD-EPI Creatinine Equation (2020) Performed By: #### L 503.7505, [id number], [id number] #### [facility] [address] [place], [address] Globulin (S) [Mass/Vol] 3.2 g/dL Normal 2.2-4.2 [facility] Comment on above: Performed By: #### L 503.7505, [id number], [id number] #### [facility] [address] [place], [address] Glucose [Mass/Vol] 143 mg/dL High 70-99 [facility] Comment on above: Performed By: #### L 503.7505, [id number], [id number] #### [facility] [address] [place], [address] Potassium [Moles/Vol] 4.0 mmol/L Normal 3.3-5.1 [facility] Comment on above: Performed By: #### L 503.7505, [id number], [id number] #### [facility] [address] [place], [address] Sodium [Moles/Vol] 141 mmol/L Normal 133-145 [facility] Comment on above: Performed By: #### L 503.7505, [id number], [id number] #### [facility] [address] [place], [address] T PROT 7.0 g/dL Normal 5.9-8.4 [facility] Comment on above: Performed By: #### L 503.7505, [id number], [id number] #### [facility] [address] [place], [address] Urea nitrogen [Mass/Vol] 16 mg/dL Normal 4-19 [facility] Comment on above: Performed By: #### L 503.7505, [id number], [id number] #### [facility] [address] [place], [address] Glomerular filtration rate ( GFR) estimation/1.73 sq m using serum, plasma, or whole bOrdered By: Floyd Ricketts on 01-01-2025 GFR/1.73 sq M.predicted among non-blacks MDRD (S/P/Bld) [Vol rate/Area] 91 mL/min/{1.73_m2} >60 [facility] Comment on above: mL/min/1.73m2 CKD-EP I Creatinine Equation (2020) L503.7505on 01-01-2025 Natriuretic peptide B (Bld) [Mass/Vol] 38 pg/mL Normal <=900 [facility] Comment on above: Result Comment: Hear t Failure Unlikely: < 300 pg/mL Heart Failure Likely < 50 Years: > 450 pg/mL 50-75 Years: > 900 pg/mL >75 Years: > 1800 pg/mL Performed By: #### L 503.7505, [id number], [id number] #### [facility] [address] [place], [address] Laboratory - Chemistry and C hemistry - challengeOrdered By: Floyd Ricketts on 01-01-2025 AST [Catalytic activity/Vol] 18 U/L <38 [facility] Natriuretic peptide.B prohor avery N-Terminal [Mass/volume] in Serum or PlasmaOrdered By: Floyd Ricketts on 01-01-2025 Natriuretic peptide.B prohormone N-Terminal [Mass/Vol] 38 pg/mL <900 [facility] Comment on above: Heart Failure Unlike ly: < 300 pg/mLHeart Failure Likely< 50 Years: > 450 pg/mL50-75 Years: > 900 pg/mL>75 Years: > 1800 pg/mL Potassium measurement (mass/ volume)Ordered By: Floyd Ricketts on 01-01-2025 Potassium (Unsp spec) [Mass/Vol] 4.0 mmol/L 3.3-5.1 [facility] Serum creatinine measurement (mass/volume)Ordered By: Floyd Ricketts on 01-01-2025 Creatinine [Mass/Vol] 0.85 mg/dL 0.70-1.20 [facility] Serum globulin measurementOr dered By: Floyd Ricketts on 01-01-2025 Globulin (S) [Mass/Vol] 3.2 g/dL 2.2-4.2 [facility] Serum glucose measurement (m ass/volume)Ordered By: Floyd Ricketts on 01-01-2025 Glucose [Mass/Vol] 143 mg/dL High 70-99 [facility] Serum or plasma alanine lopez otransferase (ALT) measurementOrdered By: Floyd Ricketts on 01-01-2025 ALT [Catalytic activity/Vol] 15 U/L <47 [facility] Serum or plasma albumin nori urement (mass/volume)Ordered By: Floyd Ricketts on 01-01-2025 Albumin [Mass/Vol] 3.9 g/dL 3.4-4.8 [facility] Serum or plasma albumin/glob ulin mass ratioOrdered By: Floyd Ricketts on 01-01-2025 Albumin/Globulin [Mass ratio] 1.2 {ratio} 0.9-2.4 [facility] Serum or plasma alkaline holly sphatase measurementOrdered By: Floyd Ricketts on 01-01-2025 ALP [Catalytic activity/Vol] 78 U/L 40-129 [facility] Serum or plasma calcium nori urement (mass/volume)Ordered By: Floyd Ricketts on 01-01-2025 Calcium [Mass/Vol] 9.8 mg/dL 7.6-11.0 [facility] Serum or plasma urea nitroge n measurement (mass/volume)Ordered By: Floyd Ricketts on 01-01-2025 Urea nitrogen [Mass/Vol] 16 mg/dL 4-19 [facility] Sodium levelOrdered By: Floyd Ricketts on 01-01-2025 Sodium [Moles/Vol] 141 mmol/L 133-145 [facility] TSH DL <= 0.005 mIU/L QnOrde red By: Floyd Ricketts on 01-01-2025 TSH Qn 2.320 uIU/mL 0.300-4.200 [facility] Thyroid Stim Hormone (TSH)on 01-01-2025 TSH 2.320 uIU/mL Normal 0.300-4.200 [facility] Comment on above: Performed By: #### L 503.7505, L501.9520, L500.4050 #### [facility] Laboratory [address] [place], [address] Total proteinOrdered By: Shalonda Ricketts on 01-01-2025 Protein [Mass/Vol] 7.0 g/dL 5.[facility] [facility], Anaerobic Any Sourc xu 10-19-2024 CUAN L LAT. FOOT ULCER Studies have confirmed that Anaerobic Gram Positive Cocci are routinely SUSCEPTABLE to Penicillin and generally susceptible to Beta-lactams and Beta-lactamase inhibitors, Cephalosporins, Carbapenems and Metronidazole. They are showing increased RESISTANCE to Clindamycin Anaerobic cocci Normal [facility] Comment on above: Performed By: #### L 501.080 #### [facility] [address] [place], [address] Gram Stainon 10-17-2024 GS L LAT. FOOT ULCER Gram Stain 1+ Epithelial cells Rare Gram positive cocci No White Blood Cells Normal [facility] Comment on above: Performed By: #### L 501.080 #### [facility] [address] [place], [address] Wound Cultureon 10-17-2024 WC L LAT. FOOT ULCER Copy of report sent to Infection Control Printer [id number] 10/17/24 0823 VIRGINIE. Meth. resistant Staph. aureus Amount Growth 3+ mecA Testing not performed Meth. resistant Staph. aureus: REACTION cefOXitin Susc Islt POS Doxycycline Islt PASHA <=0.5 Clindamycin Islt PASHA R Clindamycin.induced Susc Islt POS Erythromycin Islt PASHA R Gentamicin Islt PASHA <=0.5 S Linezolid Islt PASHA 2 S Moxifloxacin Islt PASHA >=8 R Oxacillin Susc Islt >=4 R Tetracycline Islt PASHA <=1 S TMP SMX Islt PASHA <=10 S Vancomycin Islt PASHA <=0.5 S Normal [facility] Comment on above: Performed By: #### L 501.080 #### [facility] [address] [place], [place], [id number] Anaerobic cultureOrdered By: Felipe Barnett on 10-15-2024 Bacteria identified Anaer cx Nom (Unsp spec) Anaerobic cocci Abnormal [facility] Gram stainOrdered By: Antonia Barnett on 10-15-2024 Microscopic observation Gram stain Nom (Unsp spec) [facility] Routine wound cultureOrdered By: Felipe Barnett on 10-15-2024 Microbial culture, routine Meth. resistant Staph. aureus Abnormal [facility] Calculated very low density lipoprotein (VLDL) cholesterol measurementOrdered By: Floyd Ricketts on 10-02-2024 Calculated very low density lipoprotein (VLDL) cholesterol measurement 22 mg/dL [facility] VLDL Cholesterol 22 mg/dL [facility] Hemoglobin A1con 10-02-2024 HbA1c (Bld) [Mass fraction] 6.6 % Normal <=5.6 [facility] Comment on above: Performed By: #### L 503.7505, L501.9520, L500.4050 #### [facility] [address] [place], [place], [id number] Hemoglobin A1c percentageOrd ered By: Floyd Ricketts on 10-02-2024 HbA1c (Bld) [Mass fraction] 6.6 % >5.7 [facility] LDL calc ser/plasOrdered By: Floyd Ricketts on 10-02-2024 Cholesterol in LDL [Mass/Vol] 21 mg/dL [facility] Comment on above: Boytavpxue=968-893 m g/dL & Higher Cjai=670 mg/dL or greater LDL Cholesterol, Calculated 21 mg/dL [facility] Comment on above: Jmfkscgxfo=909-882 m g/dL & Higher Buqg=667 mg/dL or greater Lipid Profileon 10-02-2024 CHOL:HDL 2.45 Normal [facility] Comment on above: Performed By: #### L 503.7505, L501.9520, L500.4050 #### [facility] [address] [place], [place], [id number] Cholesterol [Mass/Vol] 73 mg/dL Normal <=200 [facility] Comment on above: Result Comment: Chol esterol level, Desirable <200 mg/dL Borderline high cholesterol 200-239 mg/dL High cholesterol >=240 mg/dL Recommendations of the NCEP Adult Treatment Panel for the following risk-cutoff thresholds for the [place] population. Performed By: #### L 503.7505, L501.9520, L500.4050 #### [facility] [address] [place], [address] Cholesterol in HDL [Mass/Vol] 30 mg/dL Low [facility] Comment on above: Result Comment: Karen onal Cholesterol Education Program (NCEP) guidelines: <40 mg/dL: Low HDL-cholesterol (major risk factor for CHD) >= 60 mg/dL: High HDL-cholesterol (negative risk factor for CHD) HDL-cholesterol is affected by a number of factors, e.g. smoking, exercise, hormones, sex and age. Performed By: #### L 503.7505, L501.9520, L500.4050 #### [facility] [address] [place], [address] Cholesterol in LDL [Mass/Vol] 21 mg/dL Normal [facility] Comment on above: Result Comment: Bord oxmxnu=950-884 mg/dL Higher Tazo=082 mg/dL or greater Performed By: #### L 503.7505, L501.9520, L500.4050 #### [facility] [address] [place], [address] Cholesterol in VLDL [Mass/Vol] 22 mg/dL Normal 5-40 [facility] Comment on above: Performed By: #### L 503.7505, L501.9520, L500.4050 #### [facility] [address] [place], [address] Triglyceride [Mass/Vol] 111 mg/dL Normal [facility] Comment on above: Result Comment: The drugs N-Acetylcysteine and Metamizole may falsely depress this assay. Normal range: <150 mg/dL Borderline High: 150-199 mg/dL High: 200-499 mg/dL Very High: >500 mg/dL Performed By: #### L 503.7505, L501.9520, L500.4050 #### [facility] [address] [place], [place], [address] Screening total cholesterol/ high density lipoprotein (HDL) cholesterol ratioOrdered By: Floyd Ricketts on 10-02-2024 Cholesterol.total/Alice sterol in HDL [Mass ratio] 2.45 {ratio} [facility] Serum or plasma cholesterol in HDL measurement (mass/volume)Ordered By: Floyd Ricketts on 10-02-2024 Cholesterol in HDL [Mass/Vol] 30 mg/dL Low >40 [facility] Comment on above: National Cholesterol Education Program (NCEP) guidelines:<40 mg/dL: Low HDL-cholesterol (major risk factor for CHD)>= 60 mg/dL: High HDL-cholesterol (negative risk factor for CHD)HDL-cholesterol is affected by a number of factors, e.g. smoking, exercise, hormones, sex and age. Serum or plasma cholesterol measurement (mass/volume)Ordered By: Floyd Ricketts on 10-02-2024 Cholesterol [Mass/Vol] 73 mg/dL <201 [facility] Comment on above: Cholesterol level, D esirable <200 mg/dLBorderline high cholesterol 200-239 mg/dLHigh cholesterol >=240 mg/dLRecommendations of the NCEP Adult Treatment Panel for the following risk-cutoff thresholds for the [place] population. TSH DL <= 0.005 mIU/L QnOrde red By: Floyd Ricketts on 10-02-2024 Thyroid Stimulating Hormone (TSH) 0.788 uIU/mL 0.300-4.200 [facility] TSH Qn 0.788 uIU/mL 0.300-4.200 [facility] Thyroid Stim Hormone (TSH)on 10-02-2024 TSH 0.788 uIU/mL Normal 0.300-4.200 [facility] Comment on above: Performed By: #### L 503.7505, L501.9520, L500.4050 #### [facility] [address] [place], [place], [id number] Triglycerides measurementOrd ered By: Floyd Ricketts on 10-02-2024 Triglyceride [Mass/Vol] 111 mg/dL <199 [facility] Comment on above: The drugs N-Acetylcy steine and Metamizole may falsely depress this assay. Normal range: <150 mg/dLBorderline High: 150-199 mg/dLHigh: 200-499 mg/dLVery High: >500 mg/dL L3410.9998on 08-18-2024 [facility] Misc. COMMENT Normal . [facility] Comment on above: Order Comment: [id number] 1WOUND CULTURE Result Comment: Test Ordered: [id number] Anaerobic/Aerobic/Gram Stain Anaerobic Culture Note: CB Final report Reference Range: . Result 1 Comment CB Reference Range: . No anaerobic growth in 72 hours. Aerobic Culture Note: [A ] CB Final report Reference Range: . Result 1 Comment [A ] CB Reference Range: . Pseudomonas aeruginosa Ceftazidime-avibactam and ceftolozane-tazobactam may be considered for therapy ONLY when multi-drug resistance (MDR) is demonstrated to meropenem and other tested agents. Heavy growth Result 2 Comment [A ] CB Reference Range: . Methicillin - resistant Staphylococcus aureus Based on resistance to oxacillin this isolate would be resistant to all currently available beta-lactam antimicrobial agents, with the exception of the newer cephalosporins with anti-MRSA activity, such as Ceftaroline Heavy growth Result 3 Comment [A ] CB Reference Range: . Beta hemolytic Streptococcus, group C Penicillin and ampicillin are drugs of choice for treatment of beta-hemolytic streptococcal infections. Susceptibility testing of penicillins and other beta-lactam agents approved by the FDA for treatment of beta-hemolytic streptococcal infections need not be performed routinely because nonsusceptible isolates are extremely rare in any beta-hemolytic streptococcus and have not been reported for Streptococcus pyogenes (group A). (CLSI) Heavy growth Antimicrobial Susceptibility Comment CB Reference Range: . S = Susceptible; I = Intermediate; R = Resistant P = Positive; N = Negative MICS are expressed in micrograms per mL Antibiotic RSLT#1 RSLT#2 RSLT#3 RSLT#4 Ceftazidime S Ceftazidime/avibactam S Ceftolozane/tazobactam S Ciprofloxacin S R Clindamycin R Erythromycin I Gentamicin S Levofloxacin S R Linezolid S Meropenem S Oxacillin R Penicillin R Piperacillin/Tazobactam S Rifampin S Tetracycline S Tobramycin S Trimethoprim/Sulfa S Vancomycin S Gram Stain Result Note: [A ] CB Final report Reference Range: . Result 1 Comment CB Reference Range: . No white blood cells seen. Result 2 Comment CB Reference Range: . Moderate number of gram positive cocci. Result 3 Comment [A ] CB Reference Range: . Rare gram negative rods. Performed at: [address] [id number] Alarm Service Technician: Aiden Whitfield PhD, Phone: [phone] Performed By: #### L 559.8986, K455.1898, N829.6441 #### [facility] [address] [place], [address] Acid Fast Bacillus Cultureon 07-29-2024 tAFBC Comments: BONE OF LE FT FIFTH METATARSAL TESTING PERFORMED AT [facility]. ORIGINAL REPORT ON FILE IN LAB CONTAINS ADDITIONAL TEST SITE INFORMATION. Culture, Acid Fast NO ACID-FAST BACILLI ISOLATED AFTER 6 WEEKS. Normal [facility] Comment on above: Performed By: #### L 501.080 #### [facility] [address] [place] [address]. [place], [address] Acid Fast Bacillus Smear/Flu oron 07-29-2024 tafb Comments: BONE OF LE FT FIFTH METATARSAL TESTING PERFORMED AT [facility]. ORIGINAL REPORT ON FILE IN LAB CONTAINS ADDITIONAL TEST SITE INFORMATION. Smear, Acid Fast Tissue Grinding Smear: Negative [facility] Comment on above: Performed By: #### L 501.080 #### [facility] [address] [place], [address] Culture, Fungus 8482on 07-29 CUF Comments: CLEARANCE FRAGMENT OF LEFT FIFTH METATARSAL BONE Is this test to exclude patient from TB Isolation? N TESTING PERFORMED AT [facility]. ORIGINAL REPORT ON FILE IN LAB CONTAINS ADDITIONAL TEST SITE INFORMATION. CUF No yeast or mold isolated after 4 weeks. [facility] Comment on above: Performed By: #### L 501.080 #### [facility] [address] [place], [address] Culture, Anaerobic Any Sourc xu 07-20-2024 CUAN PER ORDER-L FOOT ULC ER #1 Studies have confirmed that Anaerobic Gram Positive Cocci are routinely SUSCEPTABLE to Penicillin and generally susceptible to Beta-lactams and Beta-lactamase inhibitors, Cephalosporins, Carbapenems and Metronidazole. They are showing increased RESISTANCE to Clindamycin Bacteria Spec Anaerobe Cult #2 Prevotella and Porphyromonas species are generally SUSCEPTIBLE to Cefoxitin, Chloramphenicol, and Metronidazole and are usually RESISTANT to Penicillin. Bacteria Spec Anaerobe Cult Anaerobic cocci Prevotella timonesis Beta Lactamase-Reportable Positive [facility] Comment on above: Performed By: #### L 501.080 #### [facility] [address] [place], [address] Wound Cultureon 07-18-2024 WC PER ORDER-L FOOT ULC ER #2 Organism is too fastidious for routine susceptibility studies. Pseudomonas aeruginosa Amount Growth 3+ Rothia kristinae Rothia kristinae Pseudomonas aeruginosa: REACTION Cefepime Islt PASHA 2 S Ciprofloxacin Islt PASHA 0.25 levoFLOXacin Islt PASHA 1 S Meropenem Islt PASHA 0.5 S Pip+Tazo Islt PASHA 8 S Normal [facility] Comment on above: Performed By: #### L 501.080 #### [facility] [address] [place], [address] Bacteria identified Anaer cx Nom (Unsp spec)Ordered By: Felipe Barnett on 07-15-2024 Anaerobic Culture Anaerobic cocci Abnormal [facility] Anaerobic Culture Prevotella timonesis Abnormal [facility] Culture, Fungus 8482on 07-15 CUF Comments: BONE OF LE FT FIFTH METATARSAL Is this test to exclude patient from TB Isolation? N TESTING PERFORMED AT [facility]. ORIGINAL REPORT ON FILE IN LAB CONTAINS ADDITIONAL TEST SITE INFORMATION. CUF No yeast or mold isolated after 4 weeks. Normal [facility] Comment on above: Performed By: #### L 501.080 #### [facility] [address] [place], [address] Fungus Stain 8136on 07-15-20 24 FUNST Comments: BONE OF LE FT FIFTH METATARSAL Is this test to exclude patient from TB Isolation? N TESTING PERFORMED AT [facility]. ORIGINAL REPORT ON FILE IN LAB CONTAINS ADDITIONAL TEST SITE INFORMATION. Fungus Stain No fungus observed. Normal [facility] Comment on above: Performed By: #### L 501.080 #### [facility] [address] [place], [place], [address] Gram Stainon 07-15-2024 GS PER ORDER-L FOOT ULC ER Gram Stain 1+ Gram negative rods 2+ Red Blood Cells 1+ White Blood Cells No Epithelial cells Normal [facility] Comment on above: Performed By: #### L 501.080 #### [facility] [address] [place], [place], [address] Gram stainOrdered By: Antonia Barnett on 07-15-2024 Microscopic observation Gram stain Nom (Unsp spec) [facility] Routine wound cultureOrdered By: Felipe Barnett on 07-15-2024 Wound Culture Pseudomonas aeruginosa Abnormal [facility] Wound Culture Rothia kristinae Abnormal [facility] Acid Fast Bacillus Cultureon 07-10-2024 [facility] TISSUE/ TATARSAL Results called on 06/30/24-1352 by VIRGINIE to [phone]. POSITIVE ABNORMAL ACID FAST BACILLI HAVE BEEN DETECTED IN CULTURE AT 3 WEEKS. Mycobacterium Spec Cult Mycobacterium Spec Cult AFB ORGANISM ID BY PCR M TUBERCULOSIS COMPLEX NEGATIVE M AVIUM COMPLEX POSITIVE ( IF CLINICAL CONSIDERATIONS WARRANT SUSCEPTIBILITY TESTING, CONTACT THE 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 DEPARTMENT [phone] ) REFLEX ID BY MALDI NOT INDICATED TESTING PERFORMED AT [facility]. ORIGINAL REPORT ON FILE IN LAB CONTAINS ADDITIONAL TEST SITE INFORMATION. Mycobacterium Spec Cult Copy of report sent to Infection Control Printer [id number] 07/10/24 0936 VIRGINIE. RESULTS CALLED TO OFFICE 07/10/24 1042 Luz Ramsey. Culture, Acid Fast A GROWTH OF ACID-FAST BACILLI A Myco avium complex Amount Growth Growth * This is an amended result. * A prior result that was reported as final has been changed. 07/10/24 1042 by VIRGINIE Normal [facility] Comment on above: Performed By: #### L 501.080 #### [facility] [address] [place], [place], [address] Bedside Glucoseon 07-01-2024 FINGERSTICK GLU 135 mg/dL High 74-106 [facility] Comment on above: Result Comment: RODERICK GEMENT OF PATIENT CARE PER NURSING PROTOCOL Performed By: #### L 501.080 #### [facility] [address] [place], [address] Acid Fast Bacillus Smear/Flu oron 06-30-2024 tafb TISSUE/ TATARSAL Results called on 06/30/24-9752 by VIRGINIE to [phone]. TESTING PERFORMED AT [facility]. ORIGINAL REPORT ON FILE IN LAB CONTAINS ADDITIONAL TEST SITE INFORMATION. Smear, Acid Fast Tissue Grinding Smear: Negative Normal [facility] Comment on above: Performed By: #### L 501.080 #### [facility] [address] [place], [address] Fungus Stain 8136on 06-30-20 24 FUNST Comments: CLEARANCE FRAGMENT OF LEFT FIFTH METATARSAL BONE Is this test to exclude patient from TB Isolation? N TESTING PERFORMED AT [facility]. ORIGINAL REPORT ON FILE IN LAB CONTAINS ADDITIONAL TEST SITE INFORMATION. Fungus Stain No fungus observed. Normal [facility] Comment on above: Performed By: #### L 501.080 #### [facility] [address] [place], [address] Gl[facility] at [facility] deOrdered By: Felipe Barnett on 06-25-2024 Bedside Glucose (Misc Panel) 135 mg/dL High 74-106 [facility] Comment on above: MANAGEMENT OF PATIEN T CARE PER NURSING PROTOCOL Wound Ctr History AND Physic bao 06-25-2024 Wound Ctr History & Physical [facility] [address] [place] [address] H P Exam - Wound Care 06/25/24 0910 MR#: [id number] Acct: [id number] Name: EMILEE ARAGON Rep #: [id number] : 1950 74 From: Felipe Barnett DPM PCP: Dr. Floyd Ricketts, DO Status:REG RCR Location: History of Present Illness Date of Service: 06/25/24 Chief Complaint: right great toe ulcer healed History of Wound: Mr. Aragon is a 74-year-old diabetic male seen at the wound care center today for follow-up evaluation of status post fifth ray resection with wound VAC application. Patient currently residing in a [facility] facility. He is doing well with dressing changes. He admits that he is feeling better. He is getting PICC line antibiotics through the PICC line in his left arm. Otherwise he denies any trauma. Denies constitutional symptoms. No other pedal complaints at this time. Progress of Wound: Mr. Aragon is a 74-year-old diabetic male presented wound care center today for further evaluation of a full-thickness wound to the left foot. He is status post fifth ray resection with wound VAC application done by an outside provider. He has been getting wound VAC changes as scheduled at the [facility] facility. His blood sugar has been well-controlled. His last HbA1c was 7.5% while in the hospital. He is getting PICC line antibiotics managed by infectious disease. He denies any trauma. Denies constitutional symptoms. He does admit to some soreness of throat and has tested positive today for COVID. No other pedal complaints at this time. [facility] Medical History (Updated 06/25/24 @ 09:[address] Felipe Barnett, THANIA) Other specified peripheral vascular diseases Wears glasses Bladder disease High cholesterol Easy bruising Former smoker Neuropathy History of edema Leg cramps Family history of stent PAD (peripheral artery disease) HTN (hypertension) Hypothyroid Diabetes mellitus Home Medications ???Medication ???Instructions ???Recorded ???Last Taken ???Type ascorbic acid (vitamin C) 500 mg 500 mg PO DAILY supplement 09/26/17 07/21/20 08:00 History capsule blood sugar diagnostic (OneTouch #100 ea 03/18/20 Unknown Rx Verio test strips) aspirin 81 mg chewable tablet 81 mg PO DAILY@0800 blood thinner 04/18/21 06/10/24 History atorvastatin 20 mg tablet 20 mg PO QHS Cholesterol 04/18/21 Unknown History clopidogrel 75 mg tablet 75 mg PO DAILY blood thinner 04/18/21 06/10/24 History geriatric ofyiqavg-mwgo-ecbj 1 tab PO DAILY supplement 04/18/21 06/10/24 History insulin NPH isoph U-100 human 100 40 unit subcut BID blood glucose 04/18/21 06/10/24 History unit/mL subcutaneous suspension (Novolin N NPH U-100 Insulin isophane) levothyroxine 125 mcg tablet 125 mcg PO DAILY thyroid 04/18/21 Unknown History lisinopril 10 mg tablet 10 mg PO DAILY BP 04/18/21 06/10/24 History metformin 1,000 mg tablet 1,000 mg PO BID blood glucose 04/18/21 06/10/24 History pen needle, diabetic 29 gauge x 06/11/24 Unknown History 1/2 ampicillin-sulbactam 3 gram 3 g IV Q8 41 days #123 ea 06/18/24 Unknown Rx solution for injection oxycodone 5 mg tablet 5 mg PO Q4H PRN PRN Pain Score 06/19/24 Unknown Rx 4-10 2 days #12 tabs Allergy/AdvReac Type Severity Reaction Status Date / Time No Known Allergies Allergy Verified 06/10/24 06:49 Family History Father Diabetes Heart disease Hypertension Surgical History History of amputation of toe History of transurethral destruction of bladder lesion S/P tonsillectomy S/P colonoscopy Social History Smoking Status: Former smoker Vital Signs Vital Signs Vital Signs: 06/25/24 08:27 Temperature 96.2 F L Temperature Source Temporal Pulse Rate 97 Respiratory Rate 18 Blood Pressure 133/73 H Blood Pressure Mean 93 Blood Pressure Source Monitor Blood Pressure Position Sitting Blood Pressure Location Left Arm Oxygen Delivery Method Room Air Weight Weight: 122.924 kg Body Mass Index (BMI) 35.7 Physical Exam Narrative Vascular: DP and PT pulses are faintly palpable to left extremity. CFT is brisk. Blanchable erythema to periwound to the left lower extremity. Skin temp great is warm to warm from proximal ankles to distal digits to left lower extremity. Nonpitting edema appreciated left lower extremity. Neurological: Light touch intact. Protective station is absent. Dermatological: Full-thickness ulceration to the left foot status post fifth ray resection. Full- thickness wound measures 9.5 x 4.7 x 0.5 cm. Evidence of granular tissue and exposed tendon as well as extent of exposed bone. No drainage (more content not included)... Normal [facility] Bedside Glucoseon 06-19-2024 FINGERSTICK GLU 255 mg/dL [facility]106 [facility] Comment on above: Result Comment: RODERICK GEMENT OF PATIENT CARE PER NURSING PROTOCOL Performed By: #### L 503.7505, L501.9520, L500.4050 #### [facility] Laboratory [address] [place], [address] FINGERSTICK GLU 311 mg/dL High [address] [place] [address] Comment on above: Result Comment: RODERICK GEMENT OF PATIENT CARE PER NURSING PROTOCOL Performed By: #### L 503.7505, L501.9520, L500.4050 #### [facility] [address] [place], [address] FINGERSTICK GLU 258 mg/dL [address] Comment on above: Result Comment: RODERICK GEMENT OF PATIENT CARE PER NURSING PROTOCOL Performed By: #### L 503.7505, L501.9520, L500.4050 #### [facility] [address] [place], [address] Glucose measurement at [facility] deOrdered By: Floyd Shah on 06-19-2024 [facility]dL High [address] [place] [address] Comment on above: MANAGEMENT OF PATIEN T CARE PER NURSING PROTOCOL Bedside Glucoseon 06-18-2024 FINGERSTICK GLU 257 mg/dL High [address] [place] [address] Comment on above: Result Comment: RODERICK GEMENT OF PATIENT CARE PER NURSING PROTOCOL Performed By: #### L 503.7505, L501.9520, L500.4050 #### [facility] [address] [place], [address] FINGERSTICK GLU 232 mg/dL High 74-106 [facility] Comment on above: Result Comment: RODERICK GEMENT OF PATIENT CARE PER NURSING PROTOCOL Performed By: #### L 501.080 #### [facility] [address] [place], [address] FINGERSTICK GLU 253 mg/dL High 74-106 [facility] Comment on above: Result Comment: RODERICK GEMENT OF PATIENT CARE PER NURSING PROTOCOL Performed By: #### L 503.7505, L501.9520, L500.4050 #### [facility] [address] [place], [address] FINGERSTICK GLU 216 mg/dL High -106 [facility] Comment on above: Result Comment: RODERICK GEMENT OF PATIENT CARE PER NURSING PROTOCOL Performed By: #### L 503.7505, L501.9520, L500.4050 #### [facility] [address] [place], [address] Wound Cultureon 06-18-2024 WC BONE OF LEFT FIFTH METATARSAL #4 Organism is too fastidious for routine susceptibility studies. Wound Culture Wound Culture Staphylococcus aureus Amount Growth 1+ Enterococcus faecalis Enterococcus faecalis SEPI Amount Growth Rare Staphylococcus epidermidis Amount Growth 2+ * This is an amended result. * A prior result that was reported as final has been changed. 06/18/24 1444 by SUE Staphylococcus aureus: REACTION cefOXitin Susc Islt NEG Doxycycline Islt PASHA <=0.5 S Clindamycin Islt PASHA >=4 R Clindamycin.induced Susc Islt Erythromycin Islt PASHA >=8 R Gentamicin Islt PASHA <=0.5 S Linezolid Islt PASHA 2 S Moxifloxacin Islt PASHA <=0.25 S Oxacillin Susc Islt 1 S Tetracycline Islt PASHA <=1 S TMP SMX Islt PASHA <=10 S Vancomycin Islt PASHA <=0.5 S Enterococcus faecalis: REACTION Ampicillin Islt PASHA <=2 S Gentamicin Synergy Susc Islt SYN-S S Linezolid Islt PASHA 2 S Streptomycin High Pot Susc Islt SYN-S Vancomycin Islt PASHA 1 S Staphylococcus epidermidis: REACTION cefOXitin Susc Islt NEG Doxycycline Islt PASHA 1 S Clindamycin Islt PASHA 0.25 S Clindamycin.induced Susc Islt Erythromycin Islt PASHA >=8 R Gentamicin Islt PASHA <=0.5 S Linezolid Islt PASHA 1 S Oxacillin Susc Islt <=0.25 S Tetracycline Islt PASHA <=1 S TMP SMX Islt PASHA 160 R Vancomycin Islt PASHA 2 S Normal [facility] Comment on above: Performed By: #### L 501.080 #### [facility] Laboratory [address] [place], [address] 12 Lead EKGon 06-17-2024 12 Lead EKG [facility] Cardiovascular Services [address] [place] [address] 12 Lead EKG 06/17/24 0538 MR#: [id number] Acct: [id number] Name: EMILEE ARAGON Rep #: [id number] : 1950 74 From: Shun Gamble MD Attending Dr: Dr. Floyd Shah, DO Status: A DM IN Ordering Dr: Tsyon Kunz MD Date: 06/17/24 Location: [facility] Sex: M C Admitted: 06/10/24 Test Reason : AM EKG Blood Pressure : */* mmHG Vent. Rate : 76 BPM Atrial Rate : 76 BPM P-R Int : 168 ms QRS Dur : 100 ms QT Int : 408 ms P-R-T Axes : -8 11 39 degrees QTcB Int : 459 ms Normal sinus rhythm Normal ECG When compared with ECG of 10-Jun-2024 07:16, No significant change was found Confirmed by Shun Gamble ([id number]), assistant production editor TIERNEY DAUGHERTY ([id number]) on 06/17/2024 7:54:47 AM Referred By: Confirmed By: Shun Gamble 06/17/24 0754 Date Shun Gamble MD CC: Dr. Tyson Kunz MD; Dr. Floyd Ricketts DO; Dr. Floyd Shah DO Signed Normal [facility] ACT Activated Clotting Timeo n 06-17-2024 ACTk CLOT TIME 227 sec High 74-137 [facility] Comment on above: Performed By: #### L 501.080 #### [facility] [address] [place], [address] ACTk CLOT TIME 239 sec High 74-137 [facility] Comment on above: Performed By: #### L 501.080 #### [facility] [address] [place], [address] Activated clotting timeOrder ed By: Floyd Shah on 06-17-2024 Activated Clotting Time 227 sec High 74-137 [facility] Bedside Glucoseon 06-17-2024 FINGERSTICK GLU 214 mg/dL High 74-106 [facility] Comment on above: Result Comment: RODERICK GEMENT OF PATIENT CARE PER NURSING PROTOCOL Performed By: #### L 501.080 #### [facility] [address] [place], [address] FINGERSTICK GLU 194 mg/dL High 74-106 [facility] Comment on above: Result Comment: RODERICK GEMENT OF PATIENT CARE PER NURSING PROTOCOL Performed By: #### L 501.080 #### [facility] [address] [place], [address] FINGERSTICK GLU 198 mg/dL High 74-106 [facility] Comment on above: Result Comment: RODERICK GEMENT OF PATIENT CARE PER NURSING PROTOCOL Performed By: #### L 501.080 #### [facility] [address] [place], [address] FINGERSTICK GLU 202 mg/dL High 74-106 [facility] Comment on above: Result Comment: RODERICK GEMENT OF PATIENT CARE PER NURSING PROTOCOL Performed By: #### L 501.080 #### [facility] [address] [place], [address] Operative Reporton 4 Operative Report [facility] Medical Records Department [address] [place] [address] Operative Report 06/17/24 1631 MR#: [id number] Acct: [id number] Name: EMILEE ARAGON Rep #: [id number] : 1950 74 From: Tyson Kunz MD PCP: Dr. Floyd Ricketts, DO Status:ADM IN Location: [address] Operative Report (Standard) Operative Information Surgery/Procedure Performed: aortogram, left lower extremity runoff IVUS sfa/common femoral/external iliac atherectomy, DCB sfa Surgeon: Tyson Kunz Date of Procedure: 06/17/24 Procedure Start Time: 14:30 Procedure Stop Time: 16:30 Pre-Operative Diagnosis: atherosclerosis with gangrene left lower extremity Post-Operative Diagnosis: same Select all DRAINS/GRAFTS/IMPLANTS that apply: None Type of Anesthesia: Local and Sedation,Conscious Estimated Blood Loss: 7 Specimen collected: No Description of surgery: HPI: Patient is a 74-year-old male who presented with acute infection and gangrene of the left lower extremity. He underwent surgical debridement and noninvasive vascular studies suggested an adequate perfusion to heal the surgical site and wound infection. CT angiography revealed totally occluded superficial femoral artery with moderate calcifications. He is taken now for angiogram with possible intervention. Description of procedure: Upon obtaining form consent and verification correct patient procedure site patient taken to [facility] where he was positioned prepped and draped in usual sterile fashion. Timeouts performed conscious ideation administered with Versed and fentanyl. Skin overlying the right common femoral arteries anesthetized 1% lidocaine the vessel accessed ultrasound guidance with a micropuncture needle wire. This then exchanged for micropuncture sheath routine injection iliofemoral angiogram was performed revealing satisfactory position with no extravasation or dissection. Through the micropuncture sheath Bentson wire is advanced into the abdominal aorta the micropuncture sheath exchanged for short 7 Chadian sheath. Through the 7 Chadian sheath and Omni Flush catheter was advanced into the abdominal aorta and digital traction aortogram pelvic angiogram was performed. We then navigated the contralateral iliac system with the Omni Flush and Bentson wire advancing into the distal external iliac artery. From this position sequential subtraction angiography images of the left lower extremity were performed. This revealed total occlusion of the superficial femoral artery approximately 5 cm distal to its origin with reconstitution of initially diseased above-knee popliteal with return to normal contour and caliber in the mid to distal popliteal. This also revealed total occlusion of the anterior tibial artery proximally with reconstitution in the distal one third of the leg. The peroneal artery was a large dominant outflow vessel which was widely patent to the ankle. The posterior tibial artery was small caliber with moderate diffuse atherosclerosis but patent incontinuity into the foot. Bentson wires then readvanced and the catheter and 7 Chadian sheath exchanged for 7 Chadian 45 destination sheath advanced up and over the bifurcation of the distal external iliac artery on the contralateral side. Patient was in heparinized allowed circulate for 3 minutes with subsequent heparin redosing based on ACT results. Using an angled quick cross catheter and command 18 wire we engaged the total occlusion and were able to traverse the lesion while maintaining position and what appeared to be true lumen. There was significant dense calcification in the mid total occlusion which provided some difficulty but we ultimately were able to traverse in its entirety. The catheter was advanced over the wire into the mid popliteal artery and the wire withdrawn. Hand-injection subtraction angiography from position with the true lumen no extravasation or dissection. The command wire was then readvanced the catheter withdrawn. Intravascular ultrasound probe was advanced over the wire however this was not able to traverse the entirety of the total occlusion with inability to cross the distal one third of the total occlusion due to dense calcification. We did perform recorded pullback of the lesion proximal vessels in order to obtain accurate size measurement and confirm presence within true lumen at least at this segment. The intravascular Ibarra probe was then withdrawn and a 2 mm Dacia angioplasty balloon advanced over the wire and inflated to nominal for multiple inflations across the lesion. This was then withdrawn and again we attempted to cross with the intravascular shunt probe again unable to traverse the distal segment dense calcifications. We were fairly confident that we were within true lumen throughout fact the area of where we had any question during crossing with the wire was in the more proximal segment which was c (more content not included)... Normal [facility] Basic Metabolic Profile (BMP )on 06-16-2024 BUN/CRE 16.5 RATIO Normal 10-20 [facility] Comment on above: Performed By: #### L 501.080 #### [facility] Laboratory [address] [place], [address] CA,Total 9.3 mg/dL Normal 8.5-10.1 [facility] Comment on above: Performed By: #### L 501.080 #### [facility] [address] [place], [address] Chloride [Moles/Vol] 104 mmol/L Normal 98-107 [facility] Comment on above: Performed By: #### L 501.080 #### [facility] [address] [place], [address] CO2 [Moles/Vol] 26.0 mmol/L Normal 21.0-32.0 [facility] Comment on above: Performed By: #### L 501.080 #### [facility] [address] [place], [address] Creatinine [Mass/Vol] 0.73 mg/dL Normal 0.70-1.30 [facility] Comment on above: Result Comment: The validity of the calculated GFR GFRAA in patients over 70 years has not been determined. Clinical correlation is essential. Performed By: #### L 501.080 #### [facility] [address] [place], [address] ECRCL 116.35 ml/min Normal [facility] Comment on above: Performed By: #### L 501.080 #### [facility] [address] [place], [address] EST GFR - AA 136 mL/min Normal >60 [facility] Comment on above: Result Comment: Afri can Cymraes GFR Calc Performed By: #### L 501.080 #### [facility] [address] [place], [address] GAP 7 Normal 5-15 [facility] Comment on above: Performed By: #### L 501.080 #### [facility] [address] [place], [address] GFR/1.73 sq M.predicted among non-blacks MDRD (S/P/Bld) [Vol rate/Area] 112 mL/min/{1.73_m2} Normal >60 [facility] Comment on above: Result Comment: Non- GFR Calc Performed By: #### L 501.080 #### [facility] [address] [place], [address] Glucose [Mass/Vol] 209 mg/dL High 74-106 [facility] Comment on above: Result Comment: Gluc ose result greater than or equal to 200 mg/dL suggests DIABETES MELLITUS per A.D.A. criteria. Performed By: #### L 501.080 #### [facility] [address] [place], [address] Potassium [Moles/Vol] 4.0 mmol/L Normal 3.5-5.1 [facility] Comment on above: Performed By: #### L 501.080 #### [facility] [address] [place], [address] Sodium [Moles/Vol] 137 mmol/L Normal 136-145 [facility] Comment on above: Performed By: #### L 501.080 #### [facility] [address] [place], [address] Urea nitrogen [Mass/Vol] 12 mg/dL Normal 7-18 [facility] Comment on above: Performed By: #### L 501.080 #### [facility] [address] [place], [address] Bedside Glucoseon 06-16-2024 FINGERSTICK GLU 307 mg/dL High 74-106 [facility] Comment on above: Result Comment: RODERICK GEMENT OF PATIENT CARE PER NURSING PROTOCOL Performed By: #### L 501.080 #### [facility] [address] [facility] [address] FINGERSTICK GLU 248 mg/dL High 74-106 [facility] Comment on above: Result Comment: RODERICK GEMENT OF PATIENT CARE PER NURSING PROTOCOL Performed By: #### L 501.080 #### [facility] [address] [facility] [address] FINGERSTICK GLU 252 mg/dL High 74-106 [facility] Comment on above: Result Comment: RODERICK GEMENT OF PATIENT CARE PER NURSING PROTOCOL Performed By: #### L 501.080 #### [facility] [address] [facility] [address] FINGERSTICK GLU 198 mg/dL High -106 [facility] Comment on above: Result Comment: RODERICK GEMENT OF PATIENT CARE PER NURSING PROTOCOL Performed By: #### L 501.080 #### [facility] [address] [facility] [address] Blood urea nitrogen (BUN)/cr eatinine ratioOrdered By: Tyson Alvarez on 06-16-2024 Urea nitrogen/Creatinine [Mass ratio] 16.5 mg/mg 10-20 [facility] Carbon dioxide measurementOr dered By: Tyson Alvarez on 06-16-2024 CO2 [Moles/Vol] 26.0 mmol/L 21.0-32.0 [facility] Chloride measurementOrdered By: Tyson Alvarez on 06-16-2024 Chloride [Moles/Vol] 104 mmol/L 98-107 [facility] Culture, Anaerobic Any Sourc xu 06-16-2024 CUAN CLEARANCE FRAGMENT O F LEFT FIFTH METATARSAL BONE #1 Prevotella and Porphyromonas species are generally SUSCEPTIBLE to Cefoxitin, Chloramphenicol, and Metronidazole and are usually RESISTANT to Penicillin. Bacteria Spec Anaerobe Cult #2 Studies have confirmed that Anaerobic Gram Positive Cocci are routinely SUSCEPTABLE to Penicillin and generally susceptible to Beta-lactams and Beta-lactamase inhibitors, Cephalosporins, Carbapenems and Metronidazole. They are showing increased RESISTANCE to Clindamycin Prevotella melaninogenica Beta Lactamase-Reportable Positive Anaerobic cocci Normal [facility] Comment on above: Performed By: #### L 501.080 #### [facility] [address] [facility] [place], [place], [address] CUAN BONE OF LEFT FIFTH METATARSAL #1 Prevotella and Porphyromonas species are generally SUSCEPTIBLE to Cefoxitin, Chloramphenicol, and Metronidazole and are usually RESISTANT to Penicillin. Bacteria Spec Anaerobe Cult #2 Clostridium perfringens is generally SUSCEPTIBLE to Penicillin, Metronidazole, and Meropenem. It is showing increasing RESISTANCE to Clindamycin and Tetracycline. Bacteria Spec Anaerobe Cult Clostridium species other than perfringens are generally SUSCEPTIBLE to Piperacillin, Beta-lactams and Beta-lactamase inhibitors, Carbapenems, Metronidazole and Vancomycin. They are generally RESISTANT to Ampicillin, Aminoglycosides, Trimethoprim-sulfameth oxazole, and Clindamycin. Bacteria Spec Anaerobe Cult #3 Studies have confirmed that Anaerobic Gram Positive Cocci are routinely SUSCEPTABLE to Penicillin and generally susceptible to Beta-lactams and Beta-lactamase inhibitors, Cephalosporins, Carbapenems and Metronidazole. They are showing increased RESISTANCE to Clindamycin Bacteria Spec Anaerobe Cult Prevotella melaninogenica Beta Lactamase-Reportable Positive Clostridium group Anaerobic cocci Normal [facility] Comment on above: Performed By: #### L 501.080 #### [facility] [address] [facility] [place], [address] Estimated glomerular filtrat ion rate (GFR) AmericanOrdered By: Tyson Alvarez on 06-16-2024 Estimated GFR (MDRD) Amer 136 mL/min >60 [facility] Comment on above: GFR Calc Estimation of creatinine jonah aranceOrdered By: Tyson Alvarez on 06-16-2024 Estimated Creatinine Clearance Calc 116.35 ml/min [facility] Glomerular filtration rate ( GFR) estimationOrdered By: Tyson Alvarez on 06-16-2024 Estimated GFR (MDRD) Non-Af Amer 112 mL/min >60 [facility] Comment on above: Non- GFR Calc Glucose measurementOrdered B y: Tyson Alvarez on 06-16-2024 Glucose [Mass/Vol] 209 mg/dL High 74-106 [facility] Comment on above: Glucose result great er than or equal to 200 mg/dLsuggests DIABETES MELLITUS per A.D.A. criteria. Potassium measurementOrdered By: Tyson Alvarez on 06-16-2024 Potassium [Moles/Vol] 4.0 mmol/L 3.5-5.1 [facility] Serum anion gap measurementO rdered By: Tyson Alvarez on 06-16-2024 Anion gap [Moles/Vol] 7 mmol/L 5-15 [facility] Serum or plasma calcium nori urement (mass/volume)Ordered By: Tyson Alvarez on 06-16-2024 Calcium [Mass/Vol] 9.3 mg/dL 8.5-10.1 [facility] Serum or plasma creatinine m easurement (mass/volume)Ordered By: Tyson Alvarez on 06-16-2024 Creatinine [Mass/Vol] 0.73 mg/dL 0.70-1.30 [facility] Comment on above: The validity of the calculated GFR & GFRAA in patients over 70 years has not been determined. Clinical correlation is essential. Serum or plasma urea nitroge n measurement (mass/volume)Ordered By: Tyson Alvarez on 06-16-2024 Urea nitrogen [Mass/Vol] 12 mg/dL 7-18 [facility] Sodium levelOrdered By: Tyson Alvarez on 06-16-2024 Sodium [Moles/Vol] 137 mmol/L 136-145 [facility] Bedside Glucoseon 06-15-2024 FINGERSTICK GLU 248 mg/dL High -106 [facility] Comment on above: Result Comment: RODERICK GEMENT OF PATIENT CARE PER NURSING PROTOCOL Performed By: #### L 501.080 #### [facility] [address] [place], [address] FINGERSTICK GLU 256 mg/dL [facility]106 [facility] Comment on above: Result Comment: RODERICK GEMENT OF PATIENT CARE PER NURSING PROTOCOL Performed By: #### L 501.080 #### [facility] [address] [place], [address] FINGERSTICK GLU 275 mg/dL High 74-106 [facility] Comment on above: Result Comment: RODERICK GEMENT OF PATIENT CARE PER NURSING PROTOCOL Performed By: #### L 501.080 #### [facility] [address] [place], [address] FINGERSTICK GLU 226 mg/dL High 74-106 [facility] Comment on above: Result Comment: RODERICK GEMENT OF PATIENT CARE PER NURSING PROTOCOL Performed By: #### L 501.080 #### [facility] [address] [place], [address] [facility], [facility]AN #1 Studies have confirmed that Anaerobic Gram Positive Cocci are routinely SUSCEPTABLE to Penicillin and generally susceptible to Beta-lactams and Beta-lactamase inhibitors, Cephalosporins, Carbapenems and Metronidazole. They are showing increased RESISTANCE to Clindamycin Bacteria Spec Anaerobe Cult #2 Prevotella and Porphyromonas species are generally SUSCEPTIBLE to Cefoxitin, Chloramphenicol, and Metronidazole and are usually RESISTANT to Penicillin. Anaerobic cocci Prevotella melaninogenica Beta Lactamase-Reportable Positive Normal [facility] Comment on above: Performed By: #### L 501.080 #### [facility] [address] [place], [address] Culture, Blood (WB)on 2023 CUB Blood cultures x2, from two different sites No growth in 5 days. Normal [facility] [facility] Comment on above: Performed By: #### L 501.080 #### [facility] [address] [place], [address] Bedside Glucoseon 06-14-2024 FINGERSTICK GLU 313 mg/dL High 74-106 [facility] Comment on above: Result Comment: RODERICK GEMENT OF PATIENT CARE PER NURSING PROTOCOL Performed By: #### L 501.080 #### [facility] [address] [place], [address] FINGERSTICK GLU 237 mg/dL High -[address] [place] [address] Comment on above: Result Comment: RODERICK GEMENT OF PATIENT CARE PER NURSING PROTOCOL Performed By: #### L 503.7505, L501.9520, L500.4050 #### [facility] [address] [facility] [address] FINGERSTICK GLU 228 mg/dL High [address] [place] [address] Comment on above: Result Comment: RODERICK GEMENT OF PATIENT CARE PER NURSING PROTOCOL Performed By: #### L 501.080 #### [facility] [address] [facility] [address] FINGERSTICK GLU 210 mg/dL High [address] [place] [address] Comment on above: Result Comment: RODERICK GEMENT OF PATIENT CARE PER NURSING PROTOCOL Performed By: #### L 501.080 #### [facility] [address] [facility] [address] FINGERSTICK GLU 238 mg/dL High [address] [place] [address] Comment on above: Result Comment: RODERICK GEMENT OF PATIENT CARE PER NURSING PROTOCOL Performed By: #### L 501.080 #### [facility] [address] [facility] [address] Vancomycin trough [Mass/Vol] Ordered By: Kyle Rowland on 06-14-2024 Vancomycin Level Trough 17.4 ug/mL High 5.0-15.0 [facility] Comment on above: VANCOMYCIN STANDARED DRUG THERAPY TROUGH LEVEL: 5.0 - 15.0 mg/L VANCOMYCIN HIGH INTENSITY THERAPY TROUGH LEVEL: 15.0 - 20.0 mg/L High Intensity therapy recommended for serious lifethreatening infections include:- Teedqrpden-Rgsoggikzoto-Yoddxxoro (Ventilator/Healtcare Associated)-Sepsis PLEASE CONTACT PHARMACY SERVICES (#[id number]) FOR INTERPRETATIONOF RESULTS. Vancomycin, Trough Levelon 08-14-2023 VANCO, TROUGH 17.4 ug/mL High 5.0-15.0 [facility] Comment on above: Order Comment: Comme nts: Trough to be drawn 30 mins prior to scheduled [id number] Result Comment: VANC OMYCIN STANDARED DRUG THERAPY TROUGH LEVEL: 5.0 - 15.0 mg/L VANCOMYCIN HIGH INTENSITY THERAPY TROUGH LEVEL: 15.0 - 20.0 mg/L High Intensity therapy recommended for serious life threatening infections include: - Meningitis -Endocarditis -Pneumonia (Ventilator/Healtcare Associated) -Sepsis PLEASE CONTACT PHARMACY SERVICES (#[id number]) FOR INTERPRETATION OF RESULTS. Performed By: #### L 501.080 #### [facility] [address] [facility] [place], [place], [id number] Wound Cultureon 06-14-2024 WC Staphylococcus aureu s Amount Growth 3+ Enterococcus faecalis Enterococcus faecalis * This is an amended result. * A prior result that was reported as final has been changed. 06/14/24820 by SUE Staphylococcus aureus: REACTION cefOXitin Susc Islt NEG Doxycycline Islt PASHA <=0.5 Clindamycin Islt PASHA 0.25 S Clindamycin.induced Susc Islt NEG Erythromycin Islt PASHA >=8 R Gentamicin Islt PASHA <=0.5 S Linezolid Islt PASHA 2 S Moxifloxacin Islt PASHA <=0.25 S Oxacillin Susc Islt 1 S Tetracycline Islt PASHA <=1 S TMP SMX Islt PASHA <=10 S Vancomycin Islt PASHA <=0.5 S Enterococcus faecalis: REACTION Ampicillin Islt PASHA <=2 S Gentamicin Synergy Susc Islt SYN-S Linezolid Islt PASHA 2 S Streptomycin High Pot Susc Islt SYN-S S Vancomycin Islt PASHA 1 S Normal [facility] Comment on above: Performed By: #### L 501.080 #### [facility] [address] [facility] [address] [place], [place], [address] WC CLEARANCE FRAGMENT O F LEFT FIFTH METATARSAL BONE Wound Culture Wound Culture Staphylococcus epidermidis Amount Growth Rare Staphylococcus lugdunensis Staphylococcus lugdunensis Staphylococcus epidermidis: REACTION cefOXitin Susc Islt NEG Doxycycline Islt PASHA 1 Clindamycin Islt PASHA 0.25 S Clindamycin.induced Susc Islt NEG Erythromycin Islt PASHA >=8 R Gentamicin Islt PASHA <=0.5 S Linezolid Islt PASHA 1 S Oxacillin Susc Islt <=0.25 S Tetracycline Islt PASHA 2 S TMP SMX Islt PASHA 80 R Vancomycin Islt PASHA 2 S Staphylococcus lugdunensis: REACTION cefOXitin Susc Islt NEG Doxycycline Islt PASHA <=0.5 Clindamycin Islt PASHA <=0.12 S Clindamycin.induced Susc Islt NEG Erythromycin Islt PASHA <=0.25 S Gentamicin Islt PASHA <=0.5 S Linezolid Islt PASHA 1 S Oxacillin Susc Islt 1 S Tetracycline Islt PASHA <=1 S TMP SMX Islt PASHA <=10 S Vancomycin Islt PASHA <=0.5 S Normal [facility] Comment on above: Performed By: #### L 501.080 #### [facility] [address] [place], [address] Absolute neutrophil countOrd ered By: Tyson Alvarez on 06-13-2024 Neutrophils (Bld) [#/Vol] 8.1 10*3/uL High 2.0-7.7 [facility] Basic Metabolic Profile (BMP )on 06-13-2024 BUN/CRE 17.5 RATIO Normal 10-20 [facility] Comment on above: Performed By: #### L 503.7505, L501.9520, L500.4050 #### [facility] [address] [place], [address] CA,Total 8.9 mg/dL Normal 8.5-10.1 [facility] Comment on above: Performed By: #### L 503.7505, L501.9520, L500.4050 #### [facility] [address] [place], [address] Chloride [Moles/Vol] 105 mmol/L Normal 98-107 [facility] Comment on above: Performed By: #### L 503.7505, [id number], [id number] #### [facility] [address] [place], [address] CO2 [Moles/Vol] 26.0 mmol/L Normal 21.0-32.0 [facility] Comment on above: Performed By: #### L 503.7505, L501.9520, [id number] #### [facility] [address] [place], [address] Creatinine [Mass/Vol] 0.57 mg/dL Low 0.70-1.30 [facility] Comment on above: Result Comment: The validity of the calculated GFR GFRAA in patients over 70 years has not been determined. Clinical correlation is essential. Performed By: #### L 503.7505, L501.9520, L500.4050 #### [facility] [address] [place], [address] ECRCL 116.35 ml/min Normal [facility] Comment on above: Performed By: #### L 503.7505, L501.9520, [id number] #### [facility] [address] [place], [address] EST GFR - AA 179 mL/min Normal >60 [facility] Comment on above: Result Comment: Afri can Cymraes GFR Calc Performed By: #### L 503.7505, L501.9520, [id number] #### [facility] [address] [place], [address] GAP 6 Normal 5-15 [facility] Comment on above: Performed By: #### L 503.7505, L501.9520, [id number] #### [facility] [address] [place], [address] GFR/1.73 sq M.predicted among non-blacks MDRD (S/P/Bld) [Vol rate/Area] 148 mL/min/{1.73_m2} Normal >60 [facility] Comment on above: Result Comment: Non- GFR Calc Performed By: #### L 503.7505, L501.9520, L500.4050 #### [facility] [address] [place], [address] Glucose [Mass/Vol] 250 mg/dL High 74-106 [facility] Comment on above: Result Comment: Gluc ose result greater than or equal to 200 mg/dL suggests DIABETES MELLITUS per A.D.A. criteria. Performed By: #### L 503.7505, L501.9520, L500.4050 #### [facility] [address] [place], [address] Potassium [Moles/Vol] 4.2 mmol/L Normal 3.5-5.1 [facility] Comment on above: Performed By: #### L 503.7505, [id number], [id number] #### [facility] [address] [place], [address] Sodium [Moles/Vol] 137 mmol/L Normal 136-145 [facility] Comment on above: Performed By: #### L 503.7505, [id number], [id number] #### [facility] [address] [place], [address] Urea nitrogen [Mass/Vol] 10 mg/dL Normal 7-18 [facility] Comment on above: Performed By: #### L 503.7505, [id number], [id number] #### [facility] [address] [place], [address] Basophil percentageOrdered B y: Tyson Alvarez on 06-13-2024 Basophils/100 WBC (Bld) 0.4 % 0-1 [facility] Bedside Glucoseon 06-13-2024 FINGERSTICK GLU 281 mg/dL High 74-106 [facility] Comment on above: Result Comment: RODERICK GEMENT OF PATIENT CARE PER NURSING PROTOCOL Performed By: #### L 501.080 #### [facility] [address] [place], [address] FINGERSTICK GLU 291 mg/dL High 74-106 [facility] Comment on above: Result Comment: RODERICK GEMENT OF PATIENT CARE PER NURSING PROTOCOL Performed By: #### L 501.080 #### [facility] [address] [place], [address] FINGERSTICK GLU 247 mg/dL High 74-106 [facility] Comment on above: Result Comment: RODERICK GEMENT OF PATIENT CARE PER NURSING PROTOCOL Performed By: #### L 501.080 #### [facility] [address] [place], [address] CBC W/Diff, Automatedon 11-2 Absolute Lymph 1.30 X10 3/uL Normal 0.83-4.51 [facility] Comment on above: Performed By: #### L 503.7505, L501.9520, [id number] #### [facility] [address] [place], [address] Absolute Neut 8.1 X10 3/uL High 2.0-7.7 [facility] Comment on above: Performed By: #### L 503.7505, [id number], [id number] #### [facility] [address] [place], [address] Basophils/100 WBC (Bld) 0.4 % Normal 0-1 [facility] Comment on above: Performed By: #### L 503.7505, [id number], [id number] #### [facility] [address] [place], [address] Eosinophils/100 WBC (Bld) 1.4 % Normal 0-5 [facility] Comment on above: Performed By: #### L 503.7505, [id number], [id number] #### [facility] [address] [place], [address] Erythrocyte distribution width (RBC) [Ratio] 13.7 % Normal 11.6-14.6 [facility] Comment on above: Performed By: #### L 503.7505, [id number], [id number] #### [facility] [address] [place], [address] Hematocrit (Bld) [Volume fraction] 38.4 % Low 40-54 [facility] Comment on above: Performed By: #### L 503.7505, [id number], [id number] #### [facility] [address] [place], [address] Hemoglobin (Bld) [Mass/Vol] 11.9 g/dL Low 13.0-16.5 [facility] Comment on above: Performed By: #### L 503.7505, [id number], [id number] #### [facility] [address] [place], [address] IG% 0.800 Normal 0.0-0.9 [facility] Comment on above: Result Comment: IG% - Immature Granulocytes (promyelocytes, myelocytes and metamyelocytes) > 1% indicates that a LEFT SHIFT is Present. Performed By: #### L 503.7505, [id number], [id number] #### [facility] [address] [place], [address] Lymphocytes/100 WBC (Bld) 12.2 % Low 19-41 [facility] Comment on above: Performed By: #### L 503.7505, [id number], [id number] #### [facility] [address] [place], [address] MCH (RBC) [Entitic mass] 27.5 pg Normal 27.0-32.0 [facility] Comment on above: Performed By: #### L 503.7505, [id number], [id number] #### [facility] [address] [place], [address] MCHC (RBC) [Mass/Vol] 31.0 g/dL Low 32-36 [facility] Comment on above: Performed By: #### L 503.7505, [id number], [id number] #### [facility] [address] [place], [address] MCV (RBC) [Entitic vol] 88.9 fL Normal 80-94 [facility] Comment on above: Performed By: #### L 503.7505, [id number], [id number] #### [facility] [address] [place], [address] Monocytes/100 WBC (Bld) 9.2 % Normal 0-10 [facility] Comment on above: Performed By: #### L 503.7505, L501.9520, L500.4050 #### [facility] [address] [place], [address] Neutrophils/100 WBC (Bld) 76.0 % High 47-70 [facility] Comment on above: Performed By: #### L 503.7505, L501.9520, L500.4050 #### [facility] [address] [place], [address] Nucleated RBC (Bld) [#/Vol] 0 10*3/uL Normal 0-5 [facility] Comment on above: Performed By: #### L 503.7505, L501.9520, L500.4050 #### [facility] [address] [place], [address] Platelet mean volume (Bld) [Entitic vol] 8.4 fL Normal 6.2-12.0 [facility] Comment on above: Performed By: #### L 503.7505, L501.9520, L500.4050 #### [facility] [address] [place], [address] Platelets (Bld) [#/Vol] 461 10*3/uL High 150-450 [facility] Comment on above: Performed By: #### L 503.7505, L501.9520, L500.4050 #### [facility] [address] [place], [address] RBC (Bld) [#/Vol] 4.32 10*6/uL Low 4.6-6.2 [facility] Comment on above: Performed By: #### L 503.7505, [id number], L500.4050 #### [facility] [address] [place], [address] RDW SD 45.0 fl High 35.1-43.9 [facility] Comment on above: Performed By: #### L 503.7505, [id number], [id number] #### [facility] [address] [place], [address] WBC (Bld) [#/Vol] 10.6 10*3/uL Normal 4.4-11.0 [facility] Comment on above: Performed By: #### L 503.7505, L501.9520, L500.4050 #### [facility] [address] [place], [address] Eosinophil percentageOrdered By: Tyson Alvarez on 06-13-2024 Eosinophils/100 WBC (Bld) 1.4 % 0-5 [facility] Erythrocyte distribution wid th ratioOrdered By: Tyson Alvarez on 06-13-2024 Erythrocyte distribution width (RBC) [Ratio] 13.7 % 11.6-14.6 [facility] Erythrocyte distribution wid th standard deviationOrdered By: Tyson Alvarez on 06-13-2024 Erythrocyte distribution width (RBC) [Entitic vol] 45.0 fL High 35.1-43.9 [facility] Hematocrit Auto (Bld) [Volum e fraction]Ordered By: Tyson Alvarez on 06-13-2024 Hematocrit (Bld) [Volume fraction] 38.4 % Low 40-54 [facility] Hemoglobin measurementOrdere d By: Tyson Alvarez on 06-13-2024 Hemoglobin (Bld) [Mass/Vol] 11.9 g/dL Low 13.0-16.5 [facility] Immature granulocytes/100 WB C Auto (Bld)Ordered By: Tyson Alvarez on 06-13-2024 Immature granulocytes/100 WBC (Bld) 0.800 % 0.0-0.9 [facility] Comment on above: IG% - Immature Granu locytes (promyelocytes, myelocytes and metamyelocytes) > 1% indicates that a LEFT SHIFT is Present. Lymphocytes Auto (Unsp spec) [#/Vol]Ordered By: Tyson Alvarez on 06-13-2024 Lymphocytes (Bld) [#/Vol] 1.30 10*3/uL 0.83-4.51 [facility] Lymphocytes/100 WBC Auto (Un sp spec)Ordered By: Tyson Alvarez on 06-13-2024 Lymphocytes/100 WBC (Bld) 12.2 % Low 19-41 [facility] MCV (mean corpuscular volume ) determinationOrdered By: Tyson Alvarez on 06-13-2024 MCV (RBC) [Entitic vol] 88.9 fL 80-94 [facility] Mean corpuscular hemoglobin (MCH) determinationOrdered By: Tyson Alvarez on 06-13-2024 MCH (RBC) [Entitic mass] 27.5 pg 27.0-32.0 [facility] Mean corpuscular hemoglobin concentration (MCHC) determinationOrdered By: Tyson Alvarez on 06-13-2024 MCHC (RBC) [Mass/Vol] 31.0 g/dL Low 32-36 [facility] Mean platelet volume determi nationOrdered By: Tyson Alvarez on 06-13-2024 Platelet mean volume (Bld) [Entitic vol] 8.4 fL 6.2-12.0 [facility] Monocyte percentageOrdered B y: Tysonkimber Alvarez on 06-13-2024 Monocytes/100 WBC (Bld) 9.2 % 0-10 [facility] Neutrophil percentageOrdered By: Tysonkimber Alvarez on 06-13-2024 Neutrophils/100 WBC (Bld) 76.0 % High 47-70 [facility] Nucleated red blood cell per centageOrdered By: Tyson Alvarez on 06-13-2024 Nucleated RBC/100 WBC (Bld) [Ratio] 0 % 0-5 [facility] Platelet countOrdered By: Kevin Alvarez on 06-13-2024 Platelets (Bld) [#/Vol] 461 10*3/uL High 150-450 [facility] RBC Auto (Bld) [#/Vol]Ordere d By: Tyson Alvarez on 06-13-2024 RBC (Bld) [#/Vol] 4.32 10*6/uL Low 4.6-6.2 [facility] White blood cell (WBC) count Ordered By: Tyson Alvarez on 06-13-2024 WBC (Bld) [#/Vol] 10.6 10*3/uL 4.4-11.0 [facility] Albumin to globulin ratioOrd ered By: Floyd Shah on 06-12-2024 Albumin/Globulin [Mass ratio] 0.4 {ratio} Low 0.9-2.4 [facility] Bedside Glucoseon 06-12-2024 FINGERSTICK GLU 276 mg/dL High 74[address] [place] [address] Comment on above: Result Comment: RODERICK GEMENT OF PATIENT CARE PER NURSING PROTOCOL Performed By: #### L 501.080 #### [facility] [address] [facility] [address] FINGERSTICK GLU 218 mg/dL High [address] [place] [address] Comment on above: Result Comment: RODERICK GEMENT OF PATIENT CARE PER NURSING PROTOCOL Performed By: #### L 501.080 #### [facility] [address] [place], [address] FINGERSTICK GLU 291 mg/dL [facility]106 [facility] Comment on above: Result Comment: RODERICK GEMENT OF PATIENT CARE PER NURSING PROTOCOL Performed By: #### L 501.080 #### [facility] [address] [place], [address] FINGERSTICK GLU 223 mg/dL High 74-106 [facility] Comment on above: Result Comment: RODERICK GEMENT OF PATIENT CARE PER NURSING PROTOCOL Performed By: #### L 501.080 #### [facility] [address] [place], [address] FINGERSTICK GLU 250 mg/dL High 74-106 [facility] Comment on above: Result Comment: RODERICK GEMENT OF PATIENT CARE PER NURSING PROTOCOL Performed By: #### L 503.7505, L501.9520, L500.4050 #### [facility] [address] [place], [address] Bilirubin, totalOrdered By: Floyd Shah on 06-12-2024 Bilirubin [Mass/Vol] 0.50 mg/dL 0.20-1.00 [facility] Comment on above: For patients on eltr ombopag therapy, use of [employer] TBIL is not recommended. CBC W/Diff, Automatedon 05-17 Absolute Lymph 1.40 X10 3/uL Normal 0.83-4.51 [facility] Comment on above: Performed By: #### L 501.080 #### [facility] [address] [place], [address] Absolute Neut 8.3 X10 3/uL High 2.0-7.7 [facility] Comment on above: Performed By: #### L 501.080 #### [facility] [address] [place], [address] Basophils/100 WBC (Bld) 0.4 % Normal 0-1 [facility] Comment on above: Performed By: #### L 501.080 #### [facility] [address] [place], [address] Eosinophils/100 WBC (Bld) 0.8 % Normal 0-5 [facility] Comment on above: Performed By: #### L 501.080 #### [facility] [address] [place], [address] Erythrocyte distribution width (RBC) [Ratio] 14.1 % Normal 11.6-14.6 [facility] Comment on above: Performed By: #### L 501.080 #### [facility] [address] [place], [address] Hematocrit (Bld) [Volume fraction] 37.8 % Low 40-54 [facility] Comment on above: Performed By: #### L 501.080 #### [facility] [address] [place], [address] Hemoglobin (Bld) [Mass/Vol] 12.0 g/dL Low 13.0-16.5 [facility] Comment on above: Performed By: #### L 501.080 #### [facility] [address] [place], [address] IG% 0.800 Normal 0.0-0.9 [facility] Comment on above: Result Comment: IG% - Immature Granulocytes (promyelocytes, myelocytes and metamyelocytes) > 1% indicates that a LEFT SHIFT is Present. Performed By: #### L 501.080 #### [facility] [address] [place], [address] Lymphocytes/100 WBC (Bld) 12.8 % Low 19-41 [facility] Comment on above: Performed By: #### L 501.080 #### [facility] [address] [place], [address] MCH (RBC) [Entitic mass] 28.3 pg Normal 27.0-32.0 [facility] Comment on above: Performed By: #### L 501.080 #### [facility] [address] [place], [address] MCHC (RBC) [Mass/Vol] 31.7 g/dL Low 32-36 [facility] Comment on above: Performed By: #### L 501.080 #### [facility] [address] [place], [address] MCV (RBC) [Entitic vol] 89.2 fL Normal 80-94 [facility] Comment on above: Performed By: #### L 501.080 #### [facility] [address] [place], [address] Monocytes/100 WBC (Bld) 9.8 % Normal 0-10 [facility] Comment on above: Performed By: #### L 501.080 #### [facility] [address] [place], [address] Neutrophils/100 WBC (Bld) 75.4 % High 47-70 [facility] Comment on above: Performed By: #### L 501.080 #### [facility] [address] [place], [address] Nucleated RBC (Bld) [#/Vol] 0 10*3/uL Normal 0-5 [facility] Comment on above: Performed By: #### L 501.080 #### [facility] [address] [place], [address] Platelet mean volume (Bld) [Entitic vol] 8.5 fL Normal 6.2-12.0 [facility] Comment on above: Performed By: #### L 501.080 #### [facility] [address] [place], [address] Platelets (Bld) [#/Vol] 467 10*3/uL High 150-450 [facility] Comment on above: Performed By: #### L 501.080 #### [facility] [address] [place], [address] RBC (Bld) [#/Vol] 4.24 10*6/uL Low 4.6-6.2 [facility] Comment on above: Performed By: #### L 501.080 #### [facility] [address] [place], [address] RDW SD 45.4 fl High 35.1-43.9 [facility] Comment on above: Performed By: #### L 501.080 #### [facility] [address] [place], [address] WBC (Bld) [#/Vol] 11.0 10*3/uL Normal 4.4-11.0 [facility] Comment on above: Performed By: #### L 501.080 #### [facility] [address] [place], [address] Comprehensive Metabolic [facility] 06-12-2024 Albumin [Mass/Vol] 2.2 g/dL Low 3.2-5.0 [facility] Comment on above: Performed By: #### L 501.080 #### [facility] [address] [place], [address] Albumin/Globulin [Mass ratio] 0.4 {ratio} Low 0.9-2.4 [facility] Comment on above: Performed By: #### L 501.080 #### [facility] [address] [place], [address] ALK P 48 U/L Normal 45-117 [facility] Comment on above: Performed By: #### L 501.080 #### [facility] [address] [place], [address] ALT [Catalytic activity/Vol] 35 U/L Normal 16-61 [facility] Comment on above: Performed By: #### L 501.080 #### [facility] [address] [place], [address] AST [Catalytic activity/Vol] 21 U/L Normal 15-37 [facility] Comment on above: Performed By: #### L 501.080 #### [facility] [address] [place], [address] Bilirubin [Mass/Vol] 0.50 mg/dL Normal 0.20-1.00 [facility] Comment on above: Result Comment: For patients on eltrombopag therapy, use of Dimension [employer] TBIL is not recommended. Performed By: #### L 501.080 #### [facility] [address] [place], [address] BUN/CRE 11.6 RATIO Normal 10-20 [facility] Comment on above: Performed By: #### L 501.080 #### [facility] [address] [place], [address] CA,Total 8.9 mg/dL Normal 8.5-10.1 [facility] Comment on above: Performed By: #### L 501.080 #### [facility] [address] [place], [address] Chloride [Moles/Vol] 104 mmol/L Normal 98-107 [facility] Comment on above: Performed By: #### L 501.080 #### [facility] [address] [place], [address] CO2 [Moles/Vol] 26.0 mmol/L Normal 21.0-32.0 [facility] Comment on above: Performed By: #### L 501.080 #### [facility] [address] [place], [address] Creatinine [Mass/Vol] 0.69 mg/dL Low 0.70-1.30 [facility] Comment on above: Result Comment: The validity of the calculated GFR GFRAA in patients over 70 years has not been determined. Clinical correlation is essential. Performed By: #### L 501.080 #### [facility] [address] [place], [address] ECRCL 116.35 ml/min Normal [facility] Comment on above: Performed By: #### L 501.080 #### [facility] [address] [place], [address] EST GFR - AA 145 mL/min Normal >60 [facility] Comment on above: Result Comment: Afri can Cymraes GFR Calc Performed By: #### L 501.080 #### [facility] [address] [place], [address] GAP 4 Low 5-15 [facility] Comment on above: Performed By: #### L 501.080 #### [facility] [address] [place], [address] GFR/1.73 sq M.predicted among non-blacks MDRD (S/P/Bld) [Vol rate/Area] 120 mL/min/{1.73_m2} Normal >60 [facility] Comment on above: Result Comment: Non- GFR Calc Performed By: #### L 501.080 #### [facility] [address] [place], [address] Globulin (S) [Mass/Vol] 5.0 g/dL High 2.2-4.2 [facility] Comment on above: Performed By: #### L 501.080 #### [facility] [address] [place], [address] Glucose [Mass/Vol] 239 mg/dL High 74-106 [facility] Comment on above: Result Comment: Gluc ose result greater than or equal to 200 mg/dL suggests DIABETES MELLITUS per A.D.A. criteria. Performed By: #### L 501.080 #### [facility] [address] [place], [address] Potassium [Moles/Vol] 4.3 mmol/L Normal 3.5-5.1 [facility] Comment on above: Performed By: #### L 501.080 #### [facility] [address] [place], [address] Sodium [Moles/Vol] 135 mmol/L Low 136-145 [facility] Comment on above: Performed By: #### L 501.080 #### [facility] [address] [place], [address] T PROT 7.2 g/dL Normal 6.4-8.2 [facility] Comment on above: Performed By: #### L 501.080 #### [facility] [address] [place], [address] Urea nitrogen [Mass/Vol] 8 mg/dL Normal 7-18 [facility] Comment on above: Performed By: #### L 501.080 #### [facility] [address] [place], [place], [address] Laboratory - Chemistry and C hemistry - challengeOrdered By: Floyd Shah on 06-12-2024 AST [Catalytic activity/Vol] 21 U/L 15-37 [facility] Serum globulin measurementOr dered By: Floyd Shah on 06-12-2024 Globulin (S) [Mass/Vol] 5.0 g/dL High 2.2-4.2 [facility] Serum or plasma alanine lopez otransferase (ALT) measurementOrdered By: Floyd Shah on 06-12-2024 ALT [Catalytic activity/Vol] 35 U/L 16-61 [facility] Serum or plasma albumin nori urement (mass/volume)Ordered By: Floyd Shah on 06-12-2024 Albumin [Mass/Vol] 2.2 g/dL Low 3.2-5.0 [facility] Serum or plasma alkaline holly sphatase measurementOrdered By: Floyd Shah on 06-12-2024 ALP [Catalytic activity/Vol] 48 U/L 45-117 [facility] Total proteinOrdered By: Shalonda Shah on 06-12-2024 Protein [Mass/Vol] 7.2 g/dL 6.4-8.2 [facility] Vancomycin, Trough Levelon 1 08-12-2023 VANCO, TROUGH 15.8 ug/mL High 5.0-15.0 [facility] Comment on above: Order Comment: Comme nts: Trough to be drawn 30 mins prior to scheduled [id number] Result Comment: VANC OMYCIN STANDARED DRUG THERAPY TROUGH LEVEL: 5.0 - 15.0 mg/L VANCOMYCIN HIGH INTENSITY THERAPY TROUGH LEVEL: 15.0 - 20.0 mg/L High Intensity therapy recommended for serious life threatening infections include: - Meningitis -Endocarditis -Pneumonia (Ventilator/Healtcare Associated) -Sepsis PLEASE CONTACT PHARMACY SERVICES (#[id number]) FOR INTERPRETATION OF RESULTS. Performed By: #### L 501.080 #### [facility] [address] [place], [address] Bedside Glucoseon 06-11-2024 FINGERSTICK GLU 272 mg/dL High [address] [place] [address] Comment on above: Result Comment: RODERICK GEMENT OF PATIENT CARE PER NURSING PROTOCOL Performed By: #### L 503.7505, L501.9520, L500.4050 #### [facility] [address] [place], [address] FINGERSTICK GLU 249 mg/dL High [address] [place] [address] Comment on above: Result Comment: RODERICK GEMENT OF PATIENT CARE PER NURSING PROTOCOL Performed By: #### L 501.080 #### [facility] [address] [place], [address] FINGERSTICK GLU 215 mg/dL High [address] [place] [address] Comment on above: Result Comment: RODERICK GEMENT OF PATIENT CARE PER NURSING PROTOCOL Performed By: #### L 503.7505, L501.9520, L500.4050 #### [facility] [address] [place], [address] CTA Abd w/Runoff W/WO Contra brigid 06-11-2024 CTA Abd w/Runoff W/WO Contrast [facility] Imaging Services [address] [place] [address] CTA Abd w/Runoff W/WO Contrast MR#: [id number] Acct: [id number] Name: EMILEE ARAGON Rep #: [id number] : 1950 M 74 From: Sylvain Allan MD PCP: Dr. Floyd Ricketts, DO Status: ADM IN Study: CTA Abd w/Runoff W/WO Contrast Date of Exam: 08/11/23 Exam# [id number] Ordering Dr: Tyson Kunz [place] [id number] STUDY: CTA OF THE ABDOMINAL AORTA AND BILATERAL LOWER EXTREMITIES REASON FOR EXAM: Male, 74 years old. athersclerosis with gangrene left lower extremity RADIATION DOSAGE (If Supplied By Facility): CTDIvol = ( 10.21 ) mGy, DLP = ( 1852.99 ) mGycm TECHNIQUE: Axial CT angiography multi-detector data acquisition was obtained from the to the following intravenous administration of IV 100mL Isovue-370. Axial images and MIP images were reconstructed from the axial data set. Post-processing of the angiographic images was performed, with multiplanar reformation and 3D reconstruction. Individualized dose optimization techniques were used for this CT. TECHNICAL QUALITY: Good COMPARISON: None. Descriptors of Narrowing: None (0%) Mild (< 50%) Moderate (50-70%) Severe (70-90%) Subtotal/Total Occlusion (90-100%) Non-Evaluable (technically non-diagnostic FINDINGS: Abdominal aorta: There is multifocal calcific plaquing without significant stenosis or aneurysm. Celiac and superior mesenteric arteries: Mild calcific plaquing without significant narrowing. Inferior mesenteric artery: No demonstrated narrowing. Right renal artery(arteries): Mild calcific plaquing without significant narrowing Left renal artery(arteries): Mild calcific plaquing without significant narrowing. Right common iliac artery: Multifocal calcific plaquing without significant narrowing. Right external iliac artery: Minor multifocal calcific plaquing without significant narrowing Right internal iliac artery: Mild calcific plaquing without significant narrowing. Left common iliac artery: Multifocal calcific plaquing without significant narrowing. Left external iliac artery: Mild multifocal calcific plaquing without significant narrowing. Left internal iliac artery: Mild calcific plaquing without significant narrowing RIGHT LOWER EXTREMITY Right common femoral artery: Calcific plaquing with high-grade segmental stenosis. Right profundus femoris: No demonstrated narrowing. Right superficial femoral: Patent proximal to mid superficial femoral artery graft Right popliteal artery: No demonstrated narrowing. Right tibioperoneal trunk: No demonstrated narrowing. Right anterior tibial artery: No demonstrated narrowing. Right posterior tibial artery: No demonstrated narrowing. Right peroneal artery: No demonstrated narrowing. LEFT LOWER EXTREMITY Left common femoral artery: Mild calcific plaquing without significant narrowing. Left profundus femoris: No demonstrated narrowing. Left superficial femoral: High-grade stenosis of the proximal superficial femoral artery which becomes occluded and reconstituted distally Left popliteal artery: No demonstrated narrowing. Left tibioperoneal trunk: Multifocal segmental stenoses Left anterior tibial artery: Multifocal segmental stenoses. Left posterior tibial artery: Multifocal segmental stenoses. Left peroneal artery: Multifocal segmental stenoses CT/CTA Abd w/Runoff W/WO Contrast IMPRESSION: Moderate to severe atherosclerotic disease with most severe involvement of the left lower extremity where there is high-grade stenosis of the proximal superficial femoral artery which becomes occluded and reconstituted distally with associated multifocal segmental stenoses of the calf vessels.. High-grade stenosis of the right common femoral artery with reconstituted patency of the superficial femoral artery graft Electronically Signed: Sylvain Allan MD at 19:05 EST , CC: Dr. Tyson Kunz MD; Dr. Floyd Ricketts DO [employer] Patternmaker: Signed Normal [facility] Consultation - Surgicalon Consultation - Surgical [facility] Medical Records Department [address] [place] [address] Consultation - Surgical 06/11/24 1701 MR#: [id number] Acct: [id number] Name: EMILEE ARAGON Rep #: [id number] : 1950 74 From: Tyson Kunz MD PCP: Dr. Floyd Ricketts, DO Status:ADM IN Location: [place] [address]-1 Assessment Plan Assessment/Plan (1) Atherosclerosis of [place] arteries of extremities with gangrene, left leg: PLAN: - Noninvasive vascular studies reveal moderate arterial insufficiency in the aortoiliac proximal femoral distribution - Will obtain CTA runoff to further define his atherosclerotic burden but expected that angiography with possible intervention will be necessary to heal his foot wound and infection - Tentative plan for angiogram early next week HPI Consult Data Date of Consult: 06/11/24 HPI Narrative HPI Narrative: EMILEE ARAGON, is a 74 M who presents with left lateral foot ulceration and infection present for several weeks. He underwent operative debridement and irrigation and drainage of the infection with satisfactory source control. He had a similar wound on his right lower extremity several years prior which was treated with similar surgical source control and right lower extremity angiogram with intervention. He has had noninvasive vascular studies here which suggest moderate arterial disease the left lower extremity. He takes aspirin and Plavix as part of his home medication regimen. He also has history of diabetes controlled with insulin and metformin with what he describes is satisfactory control. He does not know his most recent A1c and most recent 1 on record here is from several years prior. He denies any prior history of left lower extremity arterial or venous interventions no prior surgical history on the left. [facility] Medical History Wears glasses Bladder disease High cholesterol Easy bruising Former smoker Neuropathy History of edema Leg cramps Family history of stent PAD (peripheral artery disease) HTN (hypertension) Hypothyroid Diabetes mellitus Home Medications ???Medication ???Instructions ???Recorded ???Last Taken ???Type ascorbic acid (vitamin C) 500 mg 500 mg PO DAILY supplement 09/26/17 07/21/20 08:00 History capsule blood sugar diagnostic ([employer]Touch #100 ea 03/18/20 Unknown Rx Verio test strips) potassium 99 mg tablet 200 mg PO BID supplement 06/12/20 06/12/20 History aspirin 81 mg chewable tablet 81 mg PO DAILY@0800 blood thinner 04/18/21 06/10/24 History atorvastatin 20 mg tablet 20 mg PO QHS Cholesterol 04/18/21 Unknown History clopidogrel 75 mg tablet 75 mg PO DAILY blood thinner 04/18/21 06/10/24 History geriatric [id number] 1 tab PO DAILY supplement 04/18/21 06/10/24 History insulin NPH isoph U-100 human 100 40 unit subcut BID blood glucose 04/18/21 06/10/24 History unit/mL subcutaneous suspension (Novolin N NPH U-100 Insulin isophane) insulin regular human 100 unit/mL 40 unit subcut BID blood glucose 04/18/21 06/10/24 History injection solution (Novolin R Regular U-100 Insulin) levothyroxine 125 mcg tablet 125 mcg PO DAILY thyroid 04/18/21 Unknown History lisinopril 10 mg tablet 10 mg PO DAILY BP 04/18/21 06/10/24 History metformin 1,000 mg tablet 1,000 mg PO BID blood glucose 04/18/21 06/10/24 History pen needle, diabetic 29 gauge x 06/11/24 Unknown History 1/2 Allergy/AdvReac Type Severity Reaction Status Date / Time No Known Allergies Allergy Verified 06/10/24 06:49 Family History Father Diabetes Heart disease Hypertension Surgical History History of amputation of toe History of transurethral destruction of bladder lesion S/P tonsillectomy S/P colonoscopy Social History Smoking Status: Former smoker ROS Constitutional Constitutional: Denies chills, fever(s), frequent falls, lethargy or weakness Eyes Eyes: Denies blind spots, change in vision or loss of vision ENT HEENT: Denies bleeding gums, hoarseness or sore throat Cardiovascular Cardiovascular: Denies abdominal pain, bluish discoloration of hand/feet, chest pain with activity, claudication, cold extremities, cyanosis, dyspnea on exertion, erythema on extremities, irregular heart rhythm, leg edema, numbness in extremities or weakness in extremities Respiratory/Chest Respiratory/Chest: Denies cough, excessive phlegm production, shortness of breath at rest, shortness of breath with exertion or wheezing Gastrointestinal Gastrointestinal: Denies anorexia, change in stool character, constipation, diarrhea, melena or rectal bleeding Genitourinary Genitourinary: Denies dysuria or hematur (more content not included)... Normal [facility] Gram Stainon 06-11-2024 GS BONE OF LEFT FIFTH METATARSAL Gram Stain 3+ White Blood Cells 1+ Gram positive cocci Rare Gram negative rods 4+ Red Blood Cells Normal [facility] Comment on above: Performed By: #### L 501.080 #### [facility] [address] [place], [place], [address] GS CLEARANCE FRAGMENT O F LEFT FIFTH METATARSAL BONE Gram Stain Rare Gram positive cocci Rare White Blood Cells 2+ Red Blood Cells Normal [facility] Comment on above: Performed By: #### L 501.080 #### [facility] [address] [place], [place], [address] Hemoglobin A1con 06-11-2024 HbA1c (Bld) [Mass fraction] 7.5 % High 3.8-5.6 [facility] Comment on above: Result Comment: Norm al < 5.7 % Prediabetic 5.7 - 6.4 % Diabetic >or= 6.5 % Please note range changes. Performed By: #### L 503.7505, L501.9504, L500.8980 #### [facility] [address] [place], [place], [address] Vancomycin, Trough Levelon 08-11-2023 VANCO, TROUGH 12.7 ug/mL Normal 5.0-15.0 [facility] Comment on above: Order Comment: 2000 Result Comment: VANC OMYCIN STANDARED DRUG THERAPY TROUGH LEVEL: 5.0 - 15.0 mg/L VANCOMYCIN HIGH INTENSITY THERAPY TROUGH LEVEL: 15.0 - 20.0 mg/L High Intensity therapy recommended for serious life threatening infections include: - Meningitis -Endocarditis -Pneumonia (Ventilator/Healtcare Associated) -Sepsis PLEASE CONTACT PHARMACY SERVICES (#[id number]) FOR INTERPRETATION OF RESULTS. Performed By: #### L 501.080 #### [facility] [address] [place], [address] Acid fast bacillus (AFB) cul ture and smearOrdered By: Sylvain Ruiz on 06-10-2024 Acid Fast Bacilli Smear [facility] Acid Fast Bacilli Smear [facility] Activated partial thrombopla stin time (aPTT) in platelet poor plasma by coagulation aOrdered By: Carlos Cazares on 06-10-2024 aPTT Coag (Bld) [Time] 35.6 s Normal 24.1-36.2 [facility] Comment on above: Performed By: #### L 503.7505, L501.9520, L500.4050 #### [facility] [address] [place], [address] Bacteria identified Anaer cx Nom (Unsp spec)Ordered By: Sylvain Ruiz on 06-10-2024 Anaerobic Culture Prevotella melaninogenica Abnormal [facility] Anaerobic Culture Anaerobic cocci Abnormal [facility] Anaerobic Culture Prevotella melaninogenica Abnormal [facility] Anaerobic Culture Clostridium group Abnormal [facility] Anaerobic Culture Anaerobic cocci Abnormal [facility] Bacteria identified Anaer cx Nom (Unsp spec)Ordered By: Carlos Cazares on 06-10-2024 Anaerobic Culture Anaerobic cocci Abnormal [facility] Anaerobic Culture Prevotella melaninogenica Abnormal [facility] Basic Metabolic Profile (BMP )on 06-10-2024 BUN/CRE 9.7 RATIO Low 10-20 [facility] Comment on above: Order Comment: 'TROP ' Serial specimen #1, #2 or #3: 1 Performed By: #### L 503.7505, L501.9520, L500.4050 #### [facility] [address] [place], [address] CA,Total 9.0 mg/dL Normal 8.5-10.1 [facility] Comment on above: Order Comment: 'TROP ' Serial specimen #1, #2 or #3: 1 Performed By: #### L 503.7505, L501.9520, L500.4050 #### [facility] [address] [place], [address] Chloride [Moles/Vol] 103 mmol/L Normal 98-107 [facility] Comment on above: Order Comment: 'TROP ' Serial specimen #1, #2 or #3: 1 Performed By: #### L 503.7505, L501.9520, L500.4050 #### [facility] [address] [place], [address] CO2 [Moles/Vol] 23.0 mmol/L Normal 21.0-32.0 [facility] Comment on above: Order Comment: 'TROP ' Serial specimen #1, #2 or #3: 1 Performed By: #### L 503.7505, L501.9520, L500.4050 #### [facility] [address] [place], [address] Creatinine [Mass/Vol] 0.83 mg/dL Normal 0.70-1.30 [facility] Comment on above: Order Comment: 'TROP ' Serial specimen #1, #2 or #3: 1 Result Comment: The validity of the calculated GFR GFRAA in patients over 70 years has not been determined. Clinical correlation is essential. Performed By: #### L 503.7505, L501.9520, L500.4050 #### [facility] [address] [place], [address] ECRCL 112.58 ml/min Normal [facility] [facility] Comment on above: Order Comment: 'TROP ' Serial specimen #1, #2 or #3: 1 Performed By: #### L 503.7505, L501.9520, L500.4050 #### [facility] [address] [place], [address] EST GFR - AA 117 mL/min Normal >60 [facility] Comment on above: Order Comment: 'TROP ' Serial specimen #1, #2 or #3: 1 Result Comment: Afri can Cymraes GFR Calc Performed By: #### L 503.7505, L501.9520, L500.4050 #### [facility] [address] [place], [address] GAP 9 Normal 5-15 [facility] Comment on above: Order Comment: 'TROP ' Serial specimen #1, #2 or #3: 1 Performed By: #### L 503.7505, L501.9520, L500.4050 #### [facility] [address] [place], [address] GFR/1.73 sq M.predicted among non-blacks MDRD (S/P/Bld) [Vol rate/Area] 97 mL/min/{1.73_m2} Normal >60 [facility] Comment on above: Order Comment: 'TROP ' Serial specimen #1, #2 or #3: 1 Result Comment: Non- GFR Calc Performed By: #### L 503.7505, L501.9520, L500.4050 #### [facility] [address] [place], [address] Glucose [Mass/Vol] 180 mg/dL High 74-106 [facility] Comment on above: Order Comment: 'TROP ' Serial specimen #1, #2 or #3: 1 Result Comment: Fast ing Glucose result greater than or equal to 126 mg/dL suggests DIABETES MELLITUS per A.D.A. criteria. Performed By: #### L 503.7505, L501.9520, L500.4050 #### [facility] [address] [place], [address] Potassium [Moles/Vol] 4.1 mmol/L Normal 3.5-5.1 [facility] Comment on above: Order Comment: 'TROP ' Serial specimen #1, #2 or #3: 1 Performed By: #### L 503.7505, L501.9520, L500.4050 #### [facility] [address] [place], [address] Sodium [Moles/Vol] 135 mmol/L Low 136-145 [facility] Comment on above: Order Comment: 'TROP ' Serial specimen #1, #2 or #3: 1 Performed By: #### L 503.7505, L501.9520, L500.4050 #### [facility] [address] [place], [address] Urea nitrogen [Mass/Vol] 8 mg/dL Normal 7-18 [facility] Comment on above: Order Comment: 'TROP ' Serial specimen #1, #2 or #3: 1 Performed By: #### L 503.7505, L501.9520, L500.4050 #### [facility] [address] [place], [address] Bedside Glucoseon 06-10-2024 FINGERSTICK GLU 156 mg/dL High 74-106 [facility] Comment on above: Result Comment: RODERICK GEMENT OF PATIENT CARE PER NURSING PROTOCOL Performed By: #### L 501.080 #### [facility] [address] [place], [address] FINGERSTICK GLU 103 mg/dL Normal 74-106 [facility] Comment on above: Result Comment: RODERICK GEMENT OF PATIENT CARE PER NURSING PROTOCOL Performed By: #### L 503.7505, L501.9520, L500.4050 #### [facility] [address] [place], [address] FINGERSTICK GLU 68 mg/dL Low 74-106 [facility] Comment on above: Result Comment: RODERICK GEMENT OF PATIENT CARE PER NURSING PROTOCOL Performed By: #### L 503.7505, L501.9520, L500.4050 #### [facility] [address] [place], [address] Bilirubin directOrdered By: Carlos Cazares on 06-10-2024 Bilirubin.direct [Mass/Vol] 0.18 mg/dL Normal 0.00-0.30 [facility] Comment on above: Order Comment: 'TROP ' Serial specimen #1, #2 or #3: 1 Performed By: #### L 503.7505, L501.9520, L500.4050 #### [facility] [address] [place], [address] Blood cultureOrdered By: Roman Cazares on 06-10-2024 Bacteria identified Cx Nom (Bld) No growth in 5 days. [facility] CBC W/Diff, Automatedon 05-17 Absolute Lymph 1.49 X10 3/uL Normal 0.83-4.51 [facility] Comment on above: Performed By: #### L 503.7505, L501.9520, L500.4050 #### [facility] [address] [place], [address] Absolute Neut 14.4 X10 3/uL High 2.0-7.7 [facility] Comment on above: Performed By: #### L 503.7505, L501.9520, L500.4050 #### [facility] [address] [place], [address] Basophils/100 WBC (Bld) 0.3 % Normal 0-1 [facility] Comment on above: Performed By: #### L 503.7505, L501.9520, L500.4050 #### [facility] [address] [place], [address] Eosinophils/100 WBC (Bld) 0.4 % Normal 0-5 [facility] Comment on above: Performed By: #### L 503.7505, L501.9520, L500.4050 #### [facility] [address] [place], [address] Erythrocyte distribution width (RBC) [Ratio] 14.0 % Normal 11.6-14.6 [facility] Comment on above: Performed By: #### L 503.7505, L501.9520, L500.4050 #### [facility] [address] [place], [address] Hematocrit (Bld) [Volume fraction] 41.2 % Normal 40-54 [facility] Comment on above: Performed By: #### L 503.7505, L501.9520, L500.4050 #### [facility] [address] [place], [address] Hemoglobin (Bld) [Mass/Vol] 13.3 g/dL Normal 13.0-16.5 [facility] Comment on above: Performed By: #### L 503.7505, L501.9520, L500.4050 #### [facility] [address] [place], [address] IG% 1.000 High 0.0-0.9 [facility] Comment on above: Result Comment: IG% - Immature Granulocytes (promyelocytes, myelocytes and metamyelocytes) > 1% indicates that a LEFT SHIFT is Present. Performed By: #### L 503.7505, L501.9520, L500.4050 #### [facility] [address] [place], [address] Lymphocytes/100 WBC (Bld) 8.5 % Low 19-41 [facility] Comment on above: Performed By: #### L 503.7505, L501.9520, L500.4050 #### [facility] [address] [place], [address] MCH (RBC) [Entitic mass] 28.8 pg Normal 27.0-32.0 [facility] Comment on above: Performed By: #### L 503.7505, L501.9520, L500.4050 #### [facility] [address] [place], [address] MCHC (RBC) [Mass/Vol] 32.3 g/dL Normal 32-36 [facility] Comment on above: Performed By: #### L 503.7505, L501.9520, L500.4050 #### [facility] [address] [place], [address] MCV (RBC) [Entitic vol] 89.2 fL Normal 80-94 [facility] Comment on above: Performed By: #### L 503.7505, L501.9520, L500.4050 #### [facility] [address] [place], [address] Monocytes/100 WBC (Bld) 7.8 % Normal 0-10 [facility] Comment on above: Performed By: #### L 503.7505, L501.9520, L500.4050 #### [facility] [address] [place], [address] Neutrophils/100 WBC (Bld) 82.0 % High 47-70 [facility] Comment on above: Performed By: #### L 503.7505, L501.9520, L500.4050 #### [facility] [address] [place], [address] Nucleated RBC (Bld) [#/Vol] 0 10*3/uL Normal 0-5 [facility] Comment on above: Performed By: #### L 503.7505, L501.9520, L500.4050 #### [facility] [address] [place], [address] Platelet mean volume (Bld) [Entitic vol] 8.6 fL Normal 6.2-12.0 [facility] Comment on above: Performed By: #### L 503.7505, L501.9520, L500.4050 #### [facility] [address] [place], [address] Platelets (Bld) [#/Vol] 541 10*3/uL High 150-450 [facility] Comment on above: Performed By: #### L 503.7505, L501.9520, L500.4050 #### [facility] [address] [place], [address] RBC (Bld) [#/Vol] 4.62 10*6/uL Normal 4.6-6.2 [facility] Comment on above: Performed By: #### L 503.7505, L501.9520, L500.4050 #### [facility] [address] [place], [address] RDW SD 45.4 fl High 35.1-43.9 [facility] Comment on above: Performed By: #### L 503.7505, L501.9520, L500.4050 #### [facility] [address] [place], [address] WBC (Bld) [#/Vol] 17.5 10*3/uL High 4.4-11.0 [facility] Comment on above: Performed By: #### L 503.7505, L501.9520, L500.4050 #### [facility] [address] [place], [address] Consultation - Infectious Dx on 06-10-2024 Consultation - Infectious Dx [facility] Medical Records Department [address] [place] [address] Consultation - Infectious Dx 06/10/24 1033 MR#: [id number] Acct: [id number] Name: EMILEE ARAGON Rep #: [id number] : 1950 74 From: Kyle Rowland MD PCP: Dr. Floyd Ricketts, DO Status:ADM IN Location: [place] [id number] Assessment Plan Assessment/Plan (1) Gangrene, not elsewhere classified: (2) Type 2 diabetes mellitus with foot ulcer: (3) Acute osteomyelitis of left foot: PLAN: Bcx and wound cx pending. Would cover empirically with vanc/zosyn. OR planned. Will follow, thank you, d/w Dr. Shah HPI Consult Data Date of Consult: 06/10/24 HPI Narrative Reason for Consultation: osteo HPI Narrative: EMILEE ARAGON, is a 74 M with DM neuropathy, prior R foot infected ulcer, presented today to ED with one week progressive L foot swelling, redness, and drainage from plantar wound. No fever, no pain, no recent abx, no known inciting events. Came to ED, given vanc/ceftriaxone/flagy l, plan is for OR today. Full ROS performed and neg except as noted above. [facility] Medical History Wears glasses Bladder disease High cholesterol Easy bruising Former smoker Neuropathy History of edema Leg cramps Family history of stent PAD (peripheral artery disease) HTN (hypertension) Hypothyroid Diabetes mellitus Home Medications ???Medication ???Instructions ???Recorded ???Last Taken ???Type ascorbic acid (vitamin C) 500 mg 500 mg PO DAILY supplement 09/26/17 07/21/20 08:00 History capsule pen needle, diabetic 29 gauge x ##1 03/12/20 Unknown Rx 1/2 blood sugar diagnostic (OneTouch #100 ea 03/18/20 Unknown Rx Verio test strips) potassium 99 mg tablet 99 mg PO BID supplement 06/12/20 06/12/20 History aspirin 81 mg chewable tablet 81 mg PO DAILY@0800 blood thinner 04/18/21 Unknown History atorvastatin 20 mg tablet 20 mg PO QHS Cholesterol 04/18/21 Unknown History clopidogrel 75 mg tablet 75 mg PO DAILY blood thinner 04/18/21 Unknown History geriatric rutjalcr-nkwu-vqko 1 tab PO DAILY 04/18/21 Unknown History insulin NPH isoph U-100 human 100 50 unit subcut BID blood glucose 04/18/21 Unknown History unit/mL subcutaneous suspension (Novolin N NPH U-100 Insulin isophane) insulin regular human 100 unit/mL 35 unit subcut BID blood glucose 04/18/21 Unknown History injection solution (Novolin R Regular U-100 Insulin) levothyroxine 125 mcg tablet 125 mcg PO DAILY thyroid 04/18/21 Unknown History lisinopril 10 mg tablet 10 mg PO DAILY BP 04/18/21 Unknown History metformin 1,000 mg tablet 1,000 mg PO BID blood glucose 04/18/21 Unknown History Allergy/AdvReac Type Severity Reaction Status Date / Time No Known Allergies Allergy Verified 06/10/24 06:49 Family History Father Diabetes Heart disease Hypertension Surgical History History of amputation of toe History of transurethral destruction of bladder lesion S/P tonsillectomy S/P colonoscopy Social History Smoking Status: Former smoker Physical Exam Const alert, oriented x3 and no apparent distress General Appearance: cooperative HEENT normocephalic and head/scalp atraumatic Eyes PERRL and EOMs intact bilaterally Neck supple and No nodes Resp normal air movement and clear to auscultation bilaterally Cardio regular rate and regular rhythm GI soft to palpation, non-tender and non-distended Extremity General Extremity: edema Skin Skin Narrative: L foot wound with redness, drainage Neuro CN's II-XII intact bilaterally Lab / Micro Data Attestation: I reviewed the patient's lab results. 06/10/24 07:00 06/10/24 07:00 Labs: Laboratory Results - last 24 hr 06/10/24 07:00: WBC 17.5 H, RBC 4.62, Hgb 13.3, Hct 41.2, MCV 89.2, MCH 28.8, MCHC 32.3, RDW Std Deviation 45.4 H, RDW Coeff of Nyla 14.0, Plt Count 541 H, MPV 8.6, Immature Gran % (Auto) 1.000 H, N eut % (Auto) 82.0 H, Lymph % (Auto) 8.5 L, Boyle % (Auto) 7.8, Eos % (Auto) 0.4, Baso % (Auto) 0.3, A bsolute Neuts (auto) 14.4 H, Absolute Lymphs (auto) 1.49, Nucleated RBC % 0, PT 13.3, INR 1.0, APTT 35.6, Sodium 135 L, Potassium 4.1, Chloride 103, Carbon Dioxide 23.0, Anion Gap 9, BUN 8, Creatinine 0.83, Estim Creat Clear Calc 112.58, Est GFR (MDRD) Af Amer 117, Est GFR (MDRD) Non-Af 97, B UN/Creatinine Ratio 9.7 L, Glucose 180 H, Lactic Acid 3.3 H*, Calcium 9.0, Total Bilirubin 0.50, Direct Bilirubin 0.18, AST 17, ALT 34, Alkaline Phosphatase 58, Troponin I High Sens 9, Total Protein 7.9, Albumin 2.5 L, Globulin 5.4 H, Lipase 57 Imaging Radiology Impression Foot X-Ray 06/10/24 07:44 (more content not included)... Normal [facility] Decalcification bone/plaqueo n 06-10-2024 Decalcification bone/plaque ---- Patient Age/Sex Location Account Attending Physician ---- EMILEE ARAGON 74/M [facility] [id number] Dr. Floyd Shah, DO ---- Specimen: [id number] Received: 06/10/24 Status: PADDY Moralez Num: [id number] Spec Type: Bone Subm Dr: Dr. Sylvain Ruiz, M HEADER OPERATION: Debridement soft tissue and bone, 5th ray amputation PRE-OP DIAGNOSIS: Diabetic ulcer of left foot, acute osteomyelitis of left foot, type 2 diabetes mellulitis with foot ulcer, other specified peripheral vascular diseases, type 2 diabetes mellulitis with diabetic polyneuropathy, gangrene, not elsewhere classified TISSUE SUBMITTED: A- Bone of left 5th metatarsal clearance fragment, B- Amputated left 5th ray ---- MICROSCOPIC DIAGNOSIS A. Bone of left 5th metatarsal, clearance fragment, biopsy: Reparative and reactive change. No evidence of acute osteomyelitis. B. 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 Bone with acute osteomyelitis. . 06/16/2024 MICROSCOPIC DESCRIPTION Slides are reviewed. GROSS DESCRIPTION A. Received in fixative is one container labeled with the patient's name and designated Bone of left 5th metatarsal. The specimen consists of multiple irregular fragments of johnston bone measuring in aggregate 1.0 x 0.3 x 0.2cm. The specimen is submitted in its entirety in one cassette after decalcification. B. Received in fixative is one container labeled with the patient's name and designated Amputated left 5th ray. The specimen consists of multiple irregular fragments of bone, skin, soft tissue, and toe ranging in size from 1.5cm to 8.5cm in greatest dimension. An ulcer is present on the lateral aspect of the 5th toe that is johnston-gutiérrez in color and measures 4.6 x 3.5 x 0.5cm. [employer] sections are submitted in four cassettes after decalcification as follows: 1 2- skin and soft tissue from area of ulcer, 3- grayish-johnston bone after decalcification, 4- distal toe with skin, soft tissue and bone after decalcification . / 06/11/2024 TC:2 CPT:04299m1,65336 ---- Patient Age/Sex Location Account Attending Physician ---- EMILEE ARAGON 74/M U [id number] Dr. Floyd Shah DO ---- Signed (signature on file) Dr. Conner Valdez DO 06/18/24 1129 ---- Normal [facility] Comment on above: Performed By: #### L 501.080 #### [facility] [address] [place], [id number] Emergency Department Summary on 06-10-2024 Emergency Department Summary [facility] Medical Records Department [address] [place] [address] Emergency Department Summary 06/10/24 MR#: [id number] Acct: [id number] Name: EMILEE ARAGON Rep #: [id number] : 1950 74 From: Carlos Cazares DO PCP: Dr. Floyd Ricketts DO Status:ADM IN Location: [address] History of Present Illness Chief Complaint: Lower Extremity Injury Informant: patient Narrative Narrative: 74-year-old diabetic male with history of peripheral vascular disease presenting to the emergency room with wound to the left foot. Patient states he noticed it 3 to 4 days ago. He has been washing it with a aluminum based soap and then applying bacitracin. He notes he has had prior toes removed from the right foot about 10 years ago. He denies any fevers. He takes Plavix and aspirin. He notes diabetic neuropathy and states he really does not feel anything with his feet. [facility] Medical History Wears glasses Bladder disease High cholesterol Easy bruising Former smoker Neuropathy History of edema Leg cramps Family history of stent PAD (peripheral artery disease) HTN (hypertension) Hypothyroid Diabetes mellitus Home Medications ???Medication ???Instructions ???Recorded ???Last Taken ???Type ascorbic acid (vitamin C) 500 mg 500 mg PO DAILY supplement 09/26/17 07/21/20 08:00 History capsule pen needle, diabetic 29 gauge x ##1 03/12/20 Unknown Rx 1/2 blood sugar diagnostic (OneTouch #100 ea 03/18/20 Unknown Rx Verio test strips) potassium 99 mg tablet 99 mg PO BID supplement 06/12/20 06/12/20 History aspirin 81 mg chewable tablet 81 mg PO DAILY@0800 blood thinner 04/18/21 Unknown History atorvastatin 20 mg tablet 20 mg PO QHS Cholesterol 04/18/21 Unknown History clopidogrel 75 mg tablet 75 mg PO DAILY blood thinner 04/18/21 Unknown History geriatric gldemkep-zoly-silx 1 tab PO DAILY 04/18/21 Unknown History insulin NPH isoph U-100 human 100 50 unit subcut BID blood glucose 04/18/21 Unknown History unit/mL subcutaneous suspension (Novolin N NPH U-100 Insulin isophane) insulin regular human 100 unit/mL 35 unit subcut BID blood glucose 04/18/21 Unknown History injection solution (Novolin R Regular U-100 Insulin) levothyroxine 125 mcg tablet 125 mcg PO DAILY thyroid 04/18/21 Unknown History lisinopril 10 mg tablet 10 mg PO DAILY BP 04/18/21 Unknown History metformin 1,000 mg tablet 1,000 mg PO BID blood glucose 04/18/21 Unknown History Allergy/AdvReac Type Severity Reaction Status Date / Time No Known Allergies Allergy Verified 06/10/24 06:49 Family History Father Diabetes Heart disease Hypertension Surgical History History of amputation of toe History of transurethral destruction of bladder lesion S/P tonsillectomy S/P colonoscopy Social History Smoking Status: Former smoker ROS ROS ED Constitutional Constitutional ED: Denies chills or weight loss Eyes Eyes: Denies change in vision or diplopia ENT ENT ED: Denies ear pain, rhinorrhea or sore throat Cardiovascular Cardiovascular: Reports racing heartbeat; Denies chest pain, orthopnea or palpitations Respiratory/Chest Respiratory/Chest: Denies cough, dyspnea or orthopnea Gastrointestinal Gastrointestinal: Denies abdominal pain, diarrhea, nausea or vomiting Genitourinary Genitourinary ED: Denies dysuria, hematuria or urinary frequency Musculoskeletal Musculoskeletal: Denies arthralgias or myalgias Integumentary Reports other Details: Wound left foot ; Denies abscess or rash Neurologic Neurologic: Denies headache(s) or weakness Psychiatric Psychiatric: Denies anxiety, depression, suicidal ideation or suicidal thoughts Endocrine Endocrinology: Denies polydipsia, polyphagia or polyuria Allergic/Immunologic Allergic/Immunologic ED: Denies mouth swelling, tongue swelling or urticaria EXAM Physical Exam Narrative Exam Narrative: Very strong foul smell from the wound/room Const Vital Signs: 06/10/24 06:50 06/10/24 06:52 06/10/24 08:01 Temperature 98.7 F 98.7 F 98.9 F Temperature Source Oral Oral Oral Pulse Rate 122 H 115 H 99 Respiratory Rate 18 18 18 Blood Pressure 193/82 H 185/76 H Blood Pressure Mean 119 112 Pulse Ox 96 94 97 Oxygen Delivery Method Room Air Room Air Room Air 06/10/24 08:49 06/10/24 09:10 Temperature 98.9 F 98.9 F Temperature Source Oral Pulse Rate 93 91 Respiratory Rate 16 16 Blood Pressure 160/73 H 160/64 H Blood Pressure Mean 102 96 Pulse Ox 98 100 Oxygen Delivery Method Room Air Positive well franki (more content not included)... Normal [facility] Foot min 3 Viewson 4 Foot min 3 Views [facility] Imaging Services [address] [place], [place] [id number] Foot min 3 Views MR#: [id number] Acct: [id number] Name: EMILEE ARAGON Rep #: [id number] : 1950 M 74 From: Philip Alfaro MD PCP: Dr. Floyd Ricketts, Status: ADM IN Study: Foot min 3 Views Date of Exam: 06/10/24 Exam# [id number] Ordering Dr: Sylvain Ruiz DPEfraín [id number] INDICATION: POST OPERATIVE EXAMINATION/TECHNIQUE: X-RAY - LEFT XR Foot Min 3 Views COMPARISON: Left foot radiographs earlier same day. FINDINGS: 3 views of the left foot. Suboptimal fine osseous detail evaluation secondary to overlying bandage material. Interval osteotomy of the base of the fifth metatarsal with resection of the lateral aspect of the foot. No other definite acute osseous abnormality. Dense atherosclerotic vascular calcifications. RAD/Foot min 3 Views IMPRESSION: Post procedure change of the left foot as above. Electronically Signed: Philip Alfaro MD at 7:18 EST , CC: THANIA Ruiz; Dr. Floyd Ricketts DO Plastics Patternmaker: Signed Normal [facility] Foot min 3 Views [facility] Imaging Services [address] [place] [address] Foot min 3 Views MR#: [id number] Acct: [id number] Name: EMILEE ARAGON Rep #: [id number] : 1950 M 74 From: Leo Arreola MD PCP: Dr. Floyd Ricketts DO Status: REG ER Study: Foot min 3 Views Date of Exam: 06/10/24 Exam# [id number] Ordering Dr: Carlos Cazares DO [id number] STUDY: X-RAY - LEFT FOOT CLINICAL: Male, 74 years old. infection TECHNIQUE: 3 view(s) of the foot. COMPARISON: None. FINDINGS: Normal talus, calcaneus, and tarsal bones. Normal visualized subtalar, talonavicular, calcaneocuboid, tarsal and tarsometatarsal articulations. Normal metatarsi. Normal metatarsophalangeal joint of the great toe. Normal tibial and fibular sesamoid bones. Normal interphalangeal joint of the great toe. Normal phalanges of the great toe. Normal second through fifth metatarsophalangeal joints. Normal interphalangeal joints and phalanges of the lesser toes. Radiolucencies near the fifth metatarsophalangeal joint worrisome for an ulcer. Radiolucency of the tibial aspect of the head of the fifth metatarsal bone and the base of the fifth proximal phalanx worrisome for osteomyelitis. RAD/Foot min 3 Views IMPRESSION: Ulcer near the fifth metatarsophalangeal joint with suspected osteomyelitis of the head of the fifth metatarsal bone and the base of the fifth proximal phalanx. Electronically Signed: Leo Arreola MD at 8:21 EST , CC: Dr. Carlos Cazares DO; Dr. Folyd Ricketts DO Plastics Patternmaker: Signed Normal [facility] Fungus identified Cx Nom (Un sp spec)Ordered By: Sylvain Ruiz on 06-10-2024 Fungal Culture [facility] Fungal Culture [facility] Fungus identified Fungus sta in Nom (Unsp spec)Ordered By: Sylvain Ruiz on 06-10-2024 Fungal Smear [facility] Fungal Smear [facility] Gram Stainon 06-10-2024 GS Gram Stain 4+ Gram positive cocci 4+ Gram variable mary 2+ White Blood Cells No Epithelial cells Normal [facility] Comment on above: Performed By: #### L 501.080 #### [facility] Laboratory [address]. [place], [place], [address] Gram stainOrdered By: Renata Ruiz on 06-10-2024 Microscopic observation Gram stain Nom (Unsp spec) [facility] Microscopic observation Gram stain Nom (Unsp spec) [facility] Gram stainOrdered By: Carlos Cazares on 06-10-2024 Microscopic observation Gram stain Nom (Unsp spec) [facility] H AND P Exam - Hospitaliston 06-10-2024 H&P Exam - Hospitalist [facility] Medical Records Department [address] [place] [address] H P Exam - Hospitalist 06/10/24 1545 MR#: [id number] Acct: [id number] Name: EMILEE ARAGON Rep #: [id number] : 1950 74 From: Floyd Shah DO PCP: Dr. Floyd Ricketts DO Status:ADM IN Location: [facility] [id number] HPI - General General Date of Admission: 06/10/24 Date of Service: 06/10/24 Chief Complaint: Left foot infection HPI Narrative EMILEE ARAGON, is a 74 M who presents to the emergency room at [facility] complaining of drainage and foul-smelling discharge from the side of his left foot. Patient is vague about how long this has been going on, he has diabetic neuropathy and has very little feeling in his feet. 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 Patient denies any chills or fever at home. Lab was obtained in the emergency room, patient's white blood cell count was elevated at 17.5, chemistry profile was unremarkable except for a glucose of 180, patient's lactic acid was elevated at 3.3. Left foot x-ray revealed an ulcer near the fifth metatarsal phalangeal joint with suspected osteomyelitis of the head of the fifth metatarsal bone and the base of the fifth proximal phalanx. Patient was seen in the emergency room by podiatry who recommended the patient go for surgery today, patient will be admitted under hospitalist service, he was given IV vancomycin, IV Cipro, and IV Flagyl in the emergency room. [facility] Medical History Wears glasses Bladder disease High cholesterol Easy bruising Former smoker Neuropathy History of edema Leg cramps Family history of stent PAD (peripheral artery disease) HTN (hypertension) Hypothyroid Diabetes mellitus Home Medications ???Medication ???Instructions ???Recorded ???Last Taken ???Type ascorbic acid (vitamin C) 500 mg 500 mg PO DAILY supplement 09/26/17 07/21/20 08:00 History capsule pen needle, diabetic 29 gauge x ##1 03/12/20 Unknown Rx 1/2 blood sugar diagnostic (OneTouch #100 ea 03/18/20 Unknown Rx Verio test strips) potassium 99 mg tablet 99 mg PO BID supplement 06/12/20 06/12/20 History aspirin 81 mg chewable tablet 81 mg PO DAILY@0800 blood thinner 04/18/21 06/10/24 History atorvastatin 20 mg tablet 20 mg PO QHS Cholesterol 04/18/21 Unknown History clopidogrel 75 mg tablet 75 mg PO DAILY blood thinner 04/18/21 06/10/24 History geriatric wllspjav-immj-nwcy 1 tab PO DAILY supplement 04/18/21 06/10/24 History insulin NPH isoph U-100 human 100 40 unit subcut BID blood glucose 04/18/21 06/10/24 History unit/mL subcutaneous suspension (Novolin N NPH U-100 Insulin isophane) insulin regular human 100 unit/mL 40 unit subcut BID blood glucose 04/18/21 06/10/24 History injection solution (Novolin R Regular U-100 Insulin) levothyroxine 125 mcg tablet 125 mcg PO DAILY thyroid 04/18/21 Unknown History lisinopril 10 mg tablet 10 mg PO DAILY BP 04/18/21 06/10/24 History metformin 1,000 mg tablet 1,000 mg PO BID blood glucose 04/18/21 06/10/24 History Allergy/AdvReac Type Severity Reaction Status Date / Time No Known Allergies Allergy Verified 06/10/24 06:49 Family History Father Diabetes Heart disease Hypertension Surgical History History of amputation of toe History of transurethral destruction of bladder lesion S/P tonsillectomy S/P colonoscopy Social History Smoking Status: Former smoker ROS Constitutional Constitutional: Denies anorexia, change in weight, chills, fatigue, fever(s), malaise, night sweats or weakness Eyes Eyes: Denies blurry vision, change in vision, discharge from eye(s) or eye pain Cardiovascular Cardiovascular: Denies chest pain, claudication, dyspnea on exertion, edema or palpitations Respiratory/Chest Respiratory/Chest: Denies cough, hemoptysis, shortness of breath at rest or shortness of breath with exertion Gastrointestinal Gastrointestinal: Denies abdominal pain, coffee ground emesis, constipation, diarrhea, hematemesis, hematochezia, melena, nausea or vomiting Genitourinary Genitourinary: Denies dysuria, hematuria, urinary frequency, urinary hesitancy, urinary incontinence or urinary urgency Musculoskeletal Musculoskeletal: Reports other Details: Drainage and ulceration of the lateral aspect of the left foot for an unknown period of time ; Denies back pain, joint pain, joint stiffness, joint swelling, myalgias or neck pain Neurologic Neurologic: Denies abnormal gait, abnormal speech, dizziness, focal weakness, headach (more content not included)... Normal [facility] Hemoglobin A1c percentageOrd ered By: Tyson Kunz on 06-10-2024 HbA1c (Bld) [Mass fraction] 7.5 % High 3.8-5.6 [facility] Comment on above: Normal < 5.7 % Predi abetic 5.7 - 6.4 % Diabetic >or= 6.5 % Please note range changes. International normalized rat io (INR) calculationOrdered By: Carlos Cazares on 06-10-2024 INR Coag (Bld) [Relative time] 1.0 {INR} [facility] L501.4020on 06-10-2024 TROPONIN-I HS 9 pg/mL Normal 3.0-78.0 [facility] Comment on above: Order Comment: 'TROP ' Serial specimen #1, #2 or #3: 1 Result Comment: Pollo alex Note: New Test Units and Gender Specific Reference Ranges. For more information see Policy Stat Procedure [employer] High Sensitivity Troponin (TNIH) and attachments. Performed By: #### L 503.7505, L501.9520, L500.4050 #### [facility] Laboratory [address] [place], [place], [address] Lactic Acidon 06-10-2024 Lactate [Moles/Vol] 3.6 mmol/L Invalid Interpretation Code 0.4-1.9 [facility] Comment on above: Result Comment: Crit ical Result(s) Called at: 12:07:00 06/10/2024 by: PÉREZ MOREAU. Results read back by same. Performed By: #### L 503.7505, L501.9520, L500.4050 #### [facility] [address] [place], [place], [address] Lactate [Moles/Vol] 3.3 mmol/L Invalid Interpretation Code 0.4-1.9 [facility] Comment on above: Order Comment: Y Result Comment: Crit ical Result(s) Called at: 07:43:44 06/10/2024 by: Miguelina Packer. Results read back by same. Performed By: #### L 503.7505, L501.9520, L500.4050 #### [facility] [address] [place], [address] Lactic acid measurementOrder ed By: Carlos Cazares on 06-10-2024 Lactate [Moles/Vol] 3.6 mmol/L High 0.4-2.0 [facility] Comment on above: Critical Result(s) C alled at: 12:07:00 06/10/2024 by: PÉREZ ENCARNACION TO ISABELL MOREAU. Results read back by same. Lipase measurementOrdered By : Carlos Cazares on 06-10-2024 Lipase [Catalytic activity/Vol] 57 U/L Normal 13-75 [facility] Comment on above: Please note:LIPASE r evised reference range effective 22. New Lipase methodology. Expected to produce lower values than the previous assay method. NEW Reference Range: 13 - 75 U/L Order Comment: 'TROP ' Serial specimen #1, #2 or #3: 1 Result Comment: Pollo alex note: LIPASE revised reference range effective 22. New Lipase methodology. Expected to produce lower values than the previous assay method. NEW Reference Range: 13 - 75 U/L Performed By: #### L 503.7505, L501.9520, L500.4050 #### [facility] [address] [place], [address] Liver Profileon 06-10-2024 Albumin [Mass/Vol] 2.5 g/dL Low 3.2-5.0 [facility] Comment on above: Order Comment: 'TROP ' Serial specimen #1, #2 or #3: 1 Performed By: #### L 503.7505, L501.9520, L500.4050 #### [facility] [address] [place], [address] ALK P 58 U/L Normal 45-117 [facility] Comment on above: Order Comment: 'TROP ' Serial specimen #1, #2 or #3: 1 Performed By: #### L 503.7505, L501.9520, L500.4050 #### [facility] [address] [place], [address] ALT [Catalytic activity/Vol] 34 U/L Normal 16-61 [facility] Comment on above: Order Comment: 'TROP ' Serial specimen #1, #2 or #3: 1 Performed By: #### L 503.7505, L501.9520, L500.4050 #### [facility] [address] [place], [address] AST [Catalytic activity/Vol] 17 U/L Normal 15-37 [facility] Comment on above: Order Comment: 'TROP ' Serial specimen #1, #2 or #3: 1 Performed By: #### L 503.7505, L501.9520, L500.4050 #### [facility] [address] [place], [address] Bilirubin [Mass/Vol] 0.50 mg/dL Normal 0.20-1.00 [facility] Comment on above: Order Comment: 'TROP ' Serial specimen #1, #2 or #3: 1 Result Comment: For patients on eltrombopag therapy, use of Dimension [employer] TBIL is not recommended. Performed By: #### L 503.7505, L501.9520, L500.4050 #### [facility] [address] [place], [address] Globulin (S) [Mass/Vol] 5.4 g/dL High 2.2-4.2 [facility] Comment on above: Order Comment: 'TROP ' Serial specimen #1, #2 or #3: 1 Performed By: #### L 503.7505, L501.9520, L500.4050 #### [facility] [address] [place], [address] T PROT 7.9 g/dL Normal 6.4-8.2 [facility] Comment on above: Order Comment: 'TROP ' Serial specimen #1, #2 or #3: 1 Performed By: #### L 503.7505, L501.9520, L500.4050 #### [facility] [address] [place], [address] Lower Ext Art Exam w/o Exerc daniel 06-10-2024 Lower Ext Art Exam w/o Exercis [facility] [address] [place] [address] Lower Ext Art Exam w/o Exercis 06/11/24 0802 MR#: [id number] Acct: [id number] Name: EMILEE ARAGON Rep #: [id number] : 1950 74 From: Tyson Kunz MD Attending Dr: Dr. Floyd Shah, Status: A DM IN Ordering Dr: Floyd Shah DO Date: 06/10/24 Location: [facility] Sex: M C Admitted: 06/10/24 Reason For Study: Ulcer Procedure A bilateral lower extremity continuous wave Doppler with analog waveform analysis,segmental pressures,and ankle brachial indexes without exercise. Left Segmental Pressures Left brachial= 172mmHg. Left thigh = 111mmHg. Left calf = 119mmHg. Left posterior tibial artery = 106mmHg. Left dorsalis pedis artery = 77mmHg. Left digit = 29 mmHg. The left dorsalis pedis waveforms are monophasic. The left posterior tibial artery waveforms are monophasic. Right Segmental Pressures Right posterior tibial artery = 172mmHg. Right dorsalis pedis artery = 157mmHg. The right dorsalis pedis waveforms are biphasic. The right posterior tibial artery waveforms are biphasic. Indices The right ankle brachial index by the posterior tibial artery is 1.00. The right ankle brachial index by the dorsalis pedis is 0.91. The left ankle brachial index by the dorsalis pedis is 0.45. The left ankle brachial index by the posterior tibial artery is 0.62. The left digital-brachial index is 0.17. VL/Lower Ext Art Exam w/o Exercis Interpretation Summary Right JASMYN 1, normal. Doppler/PVR waveforms of the right leg mildly diminished at rest. Left JASMYN 0.62, moderate arterial insufficiency. Doppler/PVR waveforms an segmental pressures reveal vggel-xgvvp-glzlmwox femoral disease Ordering Physician: Floyd Shah Referring Physician: Floyd Ricketts Performed By: Contreras Dubois RVT and Student 06/11/241731 Date Tyson Kunz MD CC: Dr. Floyd Ricketts DO; Dr. Floyd Shah DO Date Dictated: 06/11/24801 Date Transcribed: 06/11/241731 Plastics Patternmaker: Hue [facility] MR/POSTOP.[facility] 06-10-2024 MR/POSTOP.[facility] Medical Records Department [address] [place] [address] Anesthesia Postop Eval I 06/10/24 1540 MR#: [id number] Acct: [id number] Name: EMILEE ARAGON Rep #: [id number] : 1950 74 From: Anna Marie Pina [employer]TRAL COMMUNICATIONS SPECIALIST PCP: Dr. Floyd Ricketts DO Status:ADM IN Y Race: C Location: [place] [address] Anesthesia: Postop Eval I Current Vital Signs Temperature: 98.8 F Pulse Rate: 87 Blood Pressure: 144/73 Respiratory Rate: 16 Pulse Ox: 91 Oxygen Delivery Method: Room Air Assessment Airway patent: Yes Spontaneous unlabored respirations: Yes Mental status: Awake nausea: No Vomiting: No Anesthesia Complication: No Fluid Hydration Crystalloid volume administer (ml): 40 Total IV fluid infused: 40 Progress Note Anesthesia document: Postop Eval 1 completed: Yes 06/10/24 1541 Date Anna Marie Pina [employer] COMMUNICATION[employer] SPECIALIST Cosigner Signature: Date CC: Signed Normal [facility] MR/[id number] 06-10-2024 MR/POSTOPAN2 [facility] Medical Records Department [address] [place] [address] Anesthesia Postop Eval II 06/10/24 1551 MR#: [id number] Acct: [id number] Name: EMILEE ARAGON Rep #: [id number] : 1950 74 From: Tyson Weinstein MD PCP: Dr. Floyd Ricketts, DO Status:ADM IN Y Race: C Location: [place] [address] Anesthesia Postop Eval I Sum Postop Eval Completion status Anesthesia document: Postop Eval 1 completed: Yes Anesthesia Postop Eval I Summary Anesthesia Postop Eval I Summary: Anesthesia Postop Eval I: Assessment Summary Airway patent Yes 06/10/24 15:41 CENTRAL COMMUNICATIONS SPECIALIST.JDEF Spontaneous unlabored Yes 06/10/24 15:41 CENTR[employer] COMM[employer]ICATIONS SPECIALIST.JDEF respirations Mental status Awake 06/10/24 15:41 CENTRAL COMMUNICATIONS SPECIALIST.JDEF nausea No 06/10/24 15:41 CENTRAL COMMUNICATIONS SPECIALIST.JDEF Vomiting No 06/10/24 15:41 CENTRAL COMM[employer]ICATIONS SPECIALIST.JDEF Anesthesia Postop Eval I: Fluid Summary Crystalloid volume administer 40 06/10/24 15:41 CENTRAL COMMUNICATIONS SPECIALIST.JDEF (ml) Colloids volume administered ( ml) Blood Product volume administered (ml) Total IV fluid infused 40 06/10/24 15:41 CENTRAL COMMUNICATIONS SPECIALIST.JDEF Anesthesia Postop Eval I: Summary Notes Anesthesia Complication No 06/10/24 15:41 CENTRAL COMMUNICATIONS SPECIALIST.JDEF Anesthesia Complication Comment: Post-operative progress note Anesthesia: Postop Eval II Evaluation Mental status: Awake Pain Level: 0 nausea: No Vomiting: No 06/10/24 1551 Date Tyson Weinstein MD Cosigner Signature: Date CC: Signed Normal [facility] Mycobacterium sp identified Org specific cx Nom (Unsp spec)Ordered By: Sylvain Ruiz on 06-10-2024 Acid Fast Bacilli Culture Myco avium compex Abnormal [facility] Acid Fast Bacilli Culture [facility] Operative Reporton Operative Report [facility] Medical Records Department [address] [place] [address] Operative Report 06/10/24 1530 MR#: [id number] Acct: [id number] Name: EMILEE ARAGON Rep #: [id number] : 1950 74 From: Sylvain Ruiz DPEfraín PCP: Dr. Floyd Ricketts, Status:ADM IN Location: [place] [address] Operative Report (Standard) Operative Information Surgery/Procedure Performed: Left foot - debridement of ulceration down to and including bone Surgeon: Syvlain Ruiz Date of Procedure: 06/10/24 Procedure Start Time: 14:56 Procedure Stop Time: 15:30 Pre-Operative Diagnosis: Osteomyelitis left foot - 5th ray with ulceration down and including bone Post-Operative Diagnosis: Same Select all DRAINS/GRAFTS/IMPLANTS that apply: None Type of Anesthesia: Local MAC Estimated Blood Loss: 10mL Specimen collected: Yes Description of specimen(s) removed: Left 5th metatarsal bone - sent to pathology Left 5th metatarsal bone clearance fragment - sent to pathology and microbiology Debrided ulceration soft tissue and bone left 5th ray - sent to pathology Description of surgery: Indications: This is a 74 year old gentleman with uncontrolled diabetes and many medical problems who presented today to hospital with infected left foot ulcer, there was erythema, edema, necrosis, drainage, and maloder - down to and including bone of the 5th ray left foot. Discussed the options with the patient. He elected to proceed with wound debridement of all nonviable, infected and necrotic soft tissue and bone at this time. Advised the patient of the possible benefits vs risks, he was advised the risks include but not limited to pain, worsening, blood clots, need for further surgery, deformity, problems ambulating and with shoes, loss of limb, loss of life. He expressed understanding and agreement. The consent form was reviewed with him and he freely signed it. All of his questions were answered. No guarantees were given nor implied, no warranties were given. Operative Procedure: The patient was brought to the operating room and was placed on the operating room table in the supine position. The patient was secured to the operating room table with a safety belt around his waist. The patient received MAC anesthesia per the anesthesia team. The patient was already on antibiotics - Vancomycin and Zosyn. The skin on patient's left foot was cleansed with 70% Isopropyl alcohol and a total of 30mL of 0.5% Bupivacaine plain was given as a left lateral foot nerve block at level of 5th ray. A well padded pneumatic tourniquet was applied around his left ankle. A timeout was performed and the patient was properly identified and surgical plan confirmed. The patient's left foot was scrubbed, prepped and draped in the usual aseptic fashion. Further attention was directed to the patient's left foot where again a nonviable, infected and wet necrotic ulceration was present down to and including bone of the left foot 5th ray - there was drainage and significant maler, with erythema and edema to the foot. The patient's left foot was exsanguinated using left foot elevation and the left ankle pneumatic tourniquet was inflated to 250mmHg. The ulceration was debrided down to and including bone using a 15 blade, a bone cutting rongeur, as well as a powered sagittal saw. It was noted the necrosis and infection extended to the 5th metatarsal where the distal part of the bone was necrotic, gutiérrez, soft and eroded. There was extensive nonviable, infected and necrotic subcutaneous and fascia tissue all of which was debrided using a 15 blade. The area debrided measured 9.5cm x 4.2cm and down to and including bone as noted above. The debrided tissue was sent to pathology and microbiology for further evaluation. The ulcer was debrided down to healthy viable tissue in excisional sharp fashion using the 15 scalpel blade, bone cutting rongeur and power sagittal saw. The site was flushed out with copious amounts of normal saline solution. A clearance fragment was obtained from the remaining 5th metatarsal using a clean bone cutting rongeur and was sent to microbiology and pathology - the bone at this area was hard, white and appeared to be free of infection. The site was further flushed out with copious of normal saline solution and the remaining tissues appeared to be healthy and viable. A dressing was applied which consisted of Betadine solution soaked gauze, 4x4 gauze, Kerlix, abd pad and sascha dressing with very minimal compression. The pneumatic tourniquet was deflated and there was immediate return of warmth and perfusion to the left foot with CFT < 2 seconds to the toes. Total tourniquet time was 30 minutes. The patient tolerated the procedure well and anesthesia well with no complications. He was transported from the operating room to the recovery room in good conditions. Post operative orders were placed and the heath (more content not included)... Normal [facility] Prothrombin Time w/INRon INR Coag (PPP) [Relative time] 1.0 {INR} Normal [facility] Comment on above: Performed By: #### L 503.7505, L501.9520, L500.4050 #### [facility] [address] [place], [place], [id number] Prothrombin timeOrdered By: Carlos Cazares on 06-10-2024 PT Coag (PPP) [Time] 13.3 s Normal 11.7-14.9 [facility] Comment on above: Performed By: #### L 503.7505, L501.9520, L500.4050 #### [facility] [address] [place], [address] Routine wound cultureOrdered By: Sylvain Ruiz on 06-10-2024 Wound Culture Staphylococcus epidermidis Abnormal [facility] Wound Culture Staphylococcus lugdunensis Abnormal [facility] Wound Culture Staphylococcus aureus Abnormal [facility] Wound Culture Enterococcus faecalis Abnormal [facility] Wound Culture Staphylococcus epidermidis Abnormal [facility] Wound Culture Granulicatella adiacens Abnormal [facility] Routine wound cultureOrdered By: Carols Cazares on 06-10-2024 Wound Culture Staphylococcus aureus Abnormal [facility] Wound Culture Enterococcus faecalis Abnormal [facility] Troponin IOrdered By: Carlos Cazares on 06-10-2024 Troponin I High Sensitivity 9 pg/mL 3.0-78.0 [facility] Comment on above: Please Note: New [place] t Units and Gender Specific Reference Ranges. For more information see Policy Stat Procedure [employer] High Sensitivity Troponin (TNIH) and attachments. HISTORY PHYSICALon HISTORY PHYSICAL HNO ID: [id number]: Tameka Bust[place] ([place]) AthyService: (none)Author Type: Physician AssistantType: HANDPFiled: 08/21/2017 3:28 PMNote Text:Pt had bumped his toe 2 days ago, And the right second toe is celluliticextending up the foot and almost to the midcalf area. He is diabetic. I amconcerned the toe is fractured as well as having cellulitis on top of itand he states the redness only started 24 hours ago and is a third of theway up his leg. The patient was already in the waiting room at [facility] today and didn't want to wait there so tried to come here. I diddiscuss with him that I do feel he needs to be evaluated in the ER and hewas agreeable with going to [facility] ED. Normal [facility] Vital Signs Date Time Vital Sign Value Performing Clinician Jacki rojo 11-19-2024 09:49-0400 Body mass index (BMI) [Ratio] 35.7 kg/m2 Dr. Floyd Ricketts DO Work Phone: [facility] 11-19-2024 09:49-0400 Diastolic blood pressure 69 mm[Hg] Dr. Floyd Ricketts DO Work Phone: [facility] 11-19-2024 09:49-0400 Heart rate 79 /min Dr. Floyd Ricketts DO Work Phone: [facility] 11-19-2024 09:49-0400 Respiratory rate 18 /min Dr. Floyd Ricketts DO Work Phone: [facility] 11-19-2024 09:49-0400 Systolic blood pressure 150 mm[Hg] Dr. Floyd Ricketts DO Work Phone: [facility] 11-13-2024 00:29-0400 Body temperature 97.4 [degF] Dr. Floyd Ricketts DO Work Phone: [facility] 11-13-2024 00:29-0400 Body weight 122.[address] Floyd Ricketts DO Work Phone: [facility] 11-05-2024 09:47-0400 Body mass index (BMI) [Ratio] 35.7 kg/m2 Dr. Floyd Ricketts DO Work Phone: [facility] 11-05-2024 09:47-0400 Body temperature 97.4 [degF] Dr. Floyd Ricketts DO Work Phone: [facility] 11-05-2024 09:47-0400 Diastolic blood pressure 81 mm[Hg] Dr. Floyd Ricketts DO Work Phone: [facility] 11-05-2024 09:47-0400 Heart rate 86 /min Dr. Floyd Ricketts DO Work Phone: [facility] 11-05-2024 09:47-0400 Respiratory rate 16 /min Dr. Floyd Ricketts DO Work Phone: [facility] 11-05-2024 09:47-0400 Systolic blood pressure 156 mm[Hg] Dr. Floyd Ricketts DO Work Phone: [facility] 10-14-2024 00:20-0400 Body weight 122.[address] Floyd Ricketts DO Work Phone: [facility] 10-08-2024 08:35-0400 Body mass index (BMI) [Ratio] 35.7 kg/m2 Dr. Floyd Ricketts DO Work Phone: [facility] 10-08-2024 08:35-0400 Body temperature 97 [degF] Dr. Floyd Ricketts DO Work Phone: [facility] 10-08-2024 08:35-0400 Diastolic blood pressure 80 mm[Hg] Dr. Floyd Ricketts DO Work Phone: [facility] 10-08-2024 08:35-0400 Heart rate 84 /min Dr. Floyd Ricketts DO Work Phone: [facility] 10-08-2024 08:35-0400 Respiratory rate 15 /min Dr. Floyd Ricketts DO Work Phone: [facility] 10-08-2024 08:35-0400 Systolic blood pressure 165 mm[Hg] Dr. Floyd Ricketts DO Work Phone: [facility] 09-13-2024 01:13-0500 Body weight 122.[address] Floyd Ricketts DO Work Phone: [facility] 09-10-2024 08:24-0500 Body mass index (BMI) [Ratio] 35.7 kg/m2 Dr. Floyd Ricketts DO Work Phone: [facility] 09-10-2024 08:24-0500 Body temperature 96.9 [degF] Dr. Floyd Ricketts DO Work Phone: [facility] 09-10-2024 08:24-0500 Diastolic blood pressure 60 mm[Hg] Dr. Floyd Ricketts DO Work Phone: [facility] 09-10-2024 08:24-0500 Heart rate 79 /min Dr. Floyd Ricketts DO Work Phone: [facility] 09-10-2024 08:24-0500 Respiratory rate 18 /min Dr. Floyd Ricketts DO Work Phone: [facility] 09-10-2024 08:24-0500 Systolic blood pressure 144 mm[Hg] Dr. Floyd Ricketts DO Work Phone: [facility] 08-16-2024 01:59-0500 Body weight 122.[address] Floyd Ricketts DO Work Phone: [facility] 08-13-2024 09:06-0500 Body mass index (BMI) [Ratio] 35.7 kg/m2 Dr. Floyd Ricketts DO Work Phone: [facility] 08-13-2024 09:06-0500 Body temperature 96.6 [degF] Dr. Floyd Ricketts DO Work Phone: [facility] 08-13-2024 09:06-0500 Diastolic blood pressure 73 mm[Hg] Dr. Floyd Ricketts DO Work Phone: [facility] 08-13-2024 09:06-0500 Heart rate 100 /min Dr. Floyd Ricketts DO Work Phone: [facility] 08-13-2024 09:06-0500 Respiratory rate 18 /min Dr. Floyd Ricketts DO Work Phone: [facility] 08-13-2024 09:06-0500 Systolic blood pressure 115 mm[Hg] Dr. Floyd Ricketts DO Work Phone: [facility] 07-16-2024 00:28-0500 Body weight 122.[address] Floyd Ricketts DO Work Phone: [facility] 07-15-2024 08:08-0500 Body mass index (BMI) [Ratio] 35.7 kg/m2 Dr. Floyd Ricketts DO Work Phone: [facility] 07-15-2024 08:08-0500 Diastolic blood pressure 79 mm[Hg] Dr. Floyd Ricketts DO Work Phone: [facility] 07-15-2024 08:08-0500 Heart rate 90 /min Dr. Floyd Ricketts DO Work Phone: [facility] 07-15-2024 08:08-0500 Respiratory rate 18 /min Dr. Floyd Ricketts DO Work Phone: [facility] 07-15-2024 08:08-0500 Systolic blood pressure 168 mm[Hg] Dr. Floyd Ricketts DO Work Phone: [facility] 07-08-2024 08:07-0500 Body temperature 96.6 [degF] Dr. Floyd Ricketts DO Work Phone: [facility] 06-25-2024 08:27-0500 Body height 185.[address] Floyd Ricketts DO Work Phone: [facility] 06-25-2024 08:27-0500 Body weight 122.[address] Floyd Ricketts DO Work Phone: [facility] 06-19-2024 16:53-0500 Body temperature 98.1 [degF] Dr. Floyd Ricketts DO Work Phone: [facility] 06-19-2024 16:53-0500 Diastolic blood pressure 77 mm[Hg] Dr. Floyd Ricketts DO Work Phone: [facility] 06-19-2024 16:53-0500 Heart rate 88 /min Dr. Floyd Ricketts DO Work Phone: [facility] 06-19-2024 16:53-0500 Respiratory rate 18 /min Dr. Floyd Ricketts DO Work Phone: [facility] 06-19-2024 16:53-0500 SaO2% (BldA) [Mass fraction] 96 % Dr. Floyd Ricketts DO Work Phone: [facility] 06-19-2024 16:53-0500 Systolic blood pressure 176 mm[Hg] Dr. Floyd Ricketts DO Work Phone: [facility] 06-19-2024 14:42-0500 Body weight [address] Floyd Ricketts DO Work Phone: [facility] 06-10-2024 11:07-0500 Body mass index (BMI) [Ratio] 38.9 kg/m2 Dr. Floyd Ricketts DO Work Phone: [facility] Encounters Encounter Date Encounter Type Care Provider Facility Start: 02-23-2025 marni Ricketts Facility: [facility] Start: 01-01-2025 End: 01-01-[address] Floyd Ricketts DO Work Phone: [facility] Work Phone: Start: 01-01-2025 End: 01-01-[address] Floyd Gamino Start: 01-01-2025 End: 01-01-2025 ambulatory Floyd Ricketts Facility:[facility] Start: 11-19-2024 End: 12-11-[address] Felipe Barnett DPM -Wound Healing [facility] nter Work Phone: Start: 11-19-2024 End: 12-11-[address] Floyd Ricketts DO Work Phone: [facility] Work Phone: Start: 11-05-2024 End: 11-12-2024 ambulatory Sylvain Ruiz Facility:[facility] Start: 11-05-2024 End: 11-12-[address] Felipe MAYOM -Wound Healing Ce nter Work Phone: Start: 10-08-2024 End: 10-13-[address] Floyd Ricketts DO Work Phone: [facility] Work Phone: Start: 10-08-2024 End: 10-13-[address] Felipe Barnett DPM -Wound Healing Ce [facility]ter Work Phone: Start: 10-08-[address] Felipe pérez DPM -[facility] He[facility] Center Work Phone: Start: 10-02-2024 End: 10-02-[address] Floyd Ricketts DO Work Phone: [facility] Work Phone: Start: 10-02-2024 End: 10-02-[address] Floyd Morillo, Christos Ramirez [facility] Start: 10-02-2024 End: 10-02-2024 ambulatory [facility] Facility:[facility] Start: 09-10-2024 End: 09-12-2024 ambulatory [facility] Facility:[facility] Start: 09-10-2024 End: 09-12-[address] Felipe Barnett DPM -Wound Healing [facility] Work Phone: Start: 08-13-2024 End: 08-15-2024 ambulatory [facility] Facility:[facility] Start: 08-13-2024 End: 08-15-[address] Felipe Barnett DPM -Wound Healing [facility] nter Work Phone: Start: 07-15-2024 End: 07-15-2024 ambulatory [facility] Facility:[facility] Start: 07-15-2024 End: 07-15-[address] Felipe Barnett DPM -Wound Healing [facility] nter Work Phone: Start: 06-19-2024 Non-patient / Non-visit Dr. Floyd Thompson [facility] Work Phone: Start: 06-18-2024 Non-patient / Non-visit Kajal [facility] Start: 06-17-2024 Non-patient / Non-visit Dr. Floyd Thompson [facility] Work Phone: Start: 06-16-2024 Non-patient / Non-visit Dr. Tyson fung MD -[facility] Start: 06-16-2024 Non-patient / Non-visit Dr. Floyd Thompson [facility] Work Phone: Start: 06-15-2024 Non-patient / Non-visit Dr. Tyson Camejo [facility] Work Phone: Start: 06-14-2024 Non-patient / Non-visit Dr. Tyson Camejo [facility] Work Phone: Start: 06-13-2024 Non-patient / Non-visit Dr. Tyson Jop [facility] Work Phone: Start: 06-12-2024 Non-patient / Non-visit Dr. Tyson pruitt [facility] Work Phone: Start: 06-11-2024 Non-patient / Non-visit Dr. Floyd Thompson DO [facility] Work Phone: Start: 06-11-2024 Non-patient / Non-visit Dr. Tyson fung MD -[facility] Start: 06-10-2024 ambulatory [facility] Start: 06-10-2024 End: 06-19-2024 Evaluation and management of inpatient Dr. Floyd Shah DO [facility] Work Phone: Start: 08-21-2017 End: 08-21-2017 Ambulatory [facility] Procedures Date Procedure Procedure Detail Performing Clinician Start: 10-15-[address] Floyd Ricketts DO Work Phone: Start: 10-15-2024 Gram stain microscopy D aleyda Ricketts DO Work Phone: Start: 10-15-2024 Microbial culture, routine Dr. Floyd Ricketts DO Work Phone: Start: 07-15-[address] Floyd Ricketts DO Work Phone: Start: 07-15-2024 Gram stain microscopy Mary Ricketts DO Work Phone: Start: 07-15-2024 Microbial culture, routine Dr. Floyd Ricketts DO Work Phone: Start: 06-11-2024 CT of abdominal aort a with contrast Dr. Floyd Ricketts DO Work Phone: Start: 06-10-2024 X-ray of both feet Dr. Floyd Ricketts DO Work Phone: Start: 06-10-[address] Efraín Ricketts DO Work Phone: Start: 06-10-2024 Acid fast bacilli culture Dr. Floyd Ricketts DO Work Phone: Start: 06-10-[address] Floyd Ricketts DO Work Phone: Start: 06-10-[address] Floyd Ricketts DO Work Phone: Start: 06-10-[address] Floyd Ricketts DO Work Phone: Start: 06-10-2024 Gram stain microscopy D aleyda Ricketts DO Work Phone: Start: 06-10-2024 Microbial culture, routine Dr. Floyd Ricketts DO Work Phone: Start: 06-10-[address] Michael Ricketts DO Work Phone: Start: 06-10-2024 X-ray of both feet Dr. Floyd Ricketts DO Work Phone: History of tonsillectomy S/P tonsillectom y Dr. Floyd Ricketts DO Work Phone: Plan of Treatment Date Care Activity Detail Author Start: 06-19-2024 Patient discharge [facility] Start: 06-19-2024 Referral for further care [facility] Start: 06-18-2024 Application, wound VAC [facility] Start: 06-17-2024 Bedrest [facility] Start: 06-17-2024 Elevation of head of bed [facility] Start: 06-17-2024 Notification of physician [facility] Start: 06-17-2024 Provision of activity privileges [facility] Start: 06-17-2024 Pulse taking [facility] Start: 06-17-2024 Taking patient vital signs [facility] Start: 06-17-2024 End: 06-17-2024 [facility] Start: 06-16-2024 Catheterization of vein [facility] Start: 06-16-2024 Medication not administered [facility] Start: 06-16-2024 Preoperative care [facility] Start: 06-16-2024 [facility] Start: 06-15-2024 [facility] Start: 06-14-2024 [facility] Start: 06-13-2024 Consultation for treatment [facility] Start: 06-11-2024 Referral to service [facility] Start: 06-11-2024 Referral to vascular surgeon [facility] Start: 06-11-2024 [facility] Start: 06-10-2024 [facility] Start: 06-10-2024 Following clinical p athway protocol [facility] Start: 06-10-2024 Assessment of risk o f venous thromboembolism [facility] Start: 06-10-2024 Care regimes management [facility] Start: 06-10-2024 Catheterization of vein [facility] Start: 06-10-2024 Consultation [facility] Start: 06-10-2024 Insertion of cathete r into peripheral vein [facility] Start: 06-10-2024 Notification of physician [facility] Start: 06-10-2024 Providing care accor ding to standard [facility] Start: 06-10-2024 Referral to occupati onal therapist [facility] Start: 06-10-2024 Referral to can bander operator [facility] Start: 06-10-2024 Referral to service [facility] Start: 06-10-2024 End: 06-10-2024 [facility] Start: 06-10-2024 Admission procedure [facility] Start: 06-10-2024 Patient referral to dietitian [facility] Patient referral [facility] Work Phone: Payers Date Payer Category Payer Medicaid [id number] 2024 Medicare [id number] 2024 Self-pay Unknown [id number] 2.16.8 [id number] Unknown [id number] 2.16.8 [id number] Unknown [id number] 2.16.8 40.1.363890.3.579.2.462 Unknown [id number] 2.16.8 40.1.473878.3.579.2.462 Unknown [id number] 2.16.8 40.1.232088.3.579.2.462 Unknown [id number] 2.16.8 40.1.377248.3.579.2.462 Unknown [id number] 2.16.8 40.1.612276.3.579.2.462 Unknown [id number] 2.16.8 40.1.153853.3.579.2.462 Unknown [id number] 2.16.8 40.1.485420.3.579.2.462 Unknown [id number] 2.16.8 40.1.831853.3.579.2.462 Unknown [id number] 2.16.8 40.1.312876.3.579.2.462 Unknown [id number] 2.16.8 40.1.224293.3.579.2.462 Unknown [id number] 2.16.8 40.1.321706.3.579.2.462 Unknown [id number] 2.16.8 40.1.867520.3.579.2.462 Unknown [id number] 2.16.8 40.1.042704.3.579.2.462 Unknown [id number] 2.16.8 40.1.700254.3.579.2.462 Unknown [id number] 2.16.8 40.1.025796.3.579.2.462 Unknown [id number] 2.16.8 40.1.743153.3.579.2.462 Unknown [id number] 2.16.8 40.1.800058.3.579.2.462 Unknown [id number] 2.16.8 40.1.751244.3.579.2.462 Unknown [id number] 2.16.8 40.1.214056.3.579.2.462 Unknown [id number] 2.16.8 40.1.059955.3.579.2.462 Unknown [id number] 2.16.8 40.1.182347.3.579.2.462 Unknown [id number] 2.16.8 40.1.566955.3.579.2.462 Social History Date Type Detail Facility Start: 06-10-2024 End: 06-10-2024 Tobacco smoking status NHIS Ex-smoker (finding) [facility] Start: 03-08-2020 None None [facility] Start: 03-08-2020 Alone Alone [facility] Start: 06-12-2020 Non-smoker Non-smoker [facility] Start: 10-09-2024 End: 10-14-2024 Sex Male (finding) [facility] Start: 1950 Sex Assigned At Male [facility] Medical Equipment Procedure Code Equipment Code Equipment Origin al Text Equipment Identifier Dates Blood Sugar Diagnostic (Onetouch Verio Test Strips) strip Start: 03-18-2020 Blood Sugar Diagnostic (Onetouch Verio Test Strips) strip Start: 03-18-2020 Blood Sugar Diagnostic (Onetouch Verio Test Strips) strip Start: 03-18-2020 Blood Sugar Diagnostic (Onetouch Verio Test Strips) strip Start: 03-18-2020 Goals Date Patient Goal Desired Activity /State Functional Status Date Assessment Result Facility 06-19-2024 Functional status Ambulates;Bedside Commo de [facility] Work Phone: Mental Status Date Assessment Result Facility 06-19-2024 Cognitive function Voice/Name [facility] Work Phone: 06-18-2024 Cognitive function Appropriate;[employer] [facility] Work Phone: Clinical Notes 06-10-2024 to 11-19-2024 Note Date & Type Note Facility 11-19-2024 Progress note Note Date/Time November 19, 2024 11:09a m [facility] [address] [place] [address] Progress Note - Wound Care 11/19/24 1107 MR#: [id number] Acct: [id number] Name: EMILEE ARAGON Rep #:[id number] : [id number] 74 From: Felipe TRUONG PCP: Dr. Floyd Ricketts, DO Status:REG RCR Location: History of Present Illness Date of Service: 11/19/24 Chief Complaint: Left foot full-thickness wound History of Wound: Stable left foot wound with amniotic graft substitute. Progress of Wound: Stable full-thickness wound with graft application left foot Subjective Subjective Mr. Aragon is a 74-year-old diabetic male presenting to wound care center today for follow-up evaluation of full-thickness wound with application of amniotic skin graft substitute to the left lateral foot. Patient has completed all of the amniotic skin graft application and states that his wound is healed. His blood sugars well-controlled. He is not taking metformin anymore and noticed improvement to swelling to the bilateral lower extremity. He denies any new open wounds or abrasions. Denies trauma. Denies constitutional symptoms. No other pedal complaints at this time. Objective Data Objective Data Vital Signs: Vital Signs Temp Pulse Resp BP O2 Del Method 97.4 F L 79 18 150/69 H Room Air 11/13/24 00:29 11/19/24 09:49 11/19/24 09:49 11/19/24 09:49 11/19/24 09:49 Oxygen Delivery Method Room Air Weight: 122.924 kg Body Mass Index (BMI) 35.7 Lab / Micro Data Micro: Microbiology 10/15/24 09:16 Ulcer, Decubitus - Left Foot Gram Stain - Final 10/15/24 09:16 Ulcer, Decubitus - Left Foot Wound Culture - Final Meth. resistant Staph. aureus 10/15/24 09:16 Ulcer, Decubitus - Left Foot Anaerobic Culture - Final Anaerobic cocci Physical Exam Narrative Vascular: DP and PT pulses are faintly palpable to left extremity. CFT is brisk. Skin temp great is warm to warm from proximal ankles to distal digits toleft lower extremity. Nonpitting edema appreciated left lower extremity. No erythema to the left foot. Neurological: Light touch intact. Protective station is absent. Dermatological: Full-thickness wound to lateral left foot is now healed. No newbreakdown of skin or concern for infection. Musculoskeletal: No pain on palpation to the full-thickness wound to the left foot. No pain with calf pressure. Debridement Note Debridement Note Post-Debridement Measurements and Additional Note: Post-Debridement Measurements/Treatment - Nurse 1 - General Ulcer Assessment Start: 11/19/24 09:49 Freq: Status: Active Protocol: FIDENCIO Activity Type Activity Date Activity User E-sign Co-sign Detail Recorded Client Recorded Date Recorded By Document 11/19/24 09:49 [id number] 11/19/24 09:57 11/19/24 09:49 - Today's Visit Information Type of service Follow-up Visit (Physician/COLOR PASTE MIXER ) Arrival Mode Wheelchair Transfer Assistance None Patient Identification Verified (Name & Yes ) Patient Requires Transmission-Based No Precautions Height and Weight Body Mass Index (BMI) 35.7 BMI Classification Obese Vital Signs Pulse Rate (60-100) 79 Pulse Location Monitor Respiratory Rate (12-18) 18 Respiratory rate source Observation Oxygen Delivery Method Room Air Blood Pressure (90/60-120/80) 150/69 H Blood Pressure Mean (mm Hg) 96 Source Monitor Position Sitting Blood Pressure Location Left Arm History Since Last Visit- (Skip if this is Patient's initial visit) Have you changed medications since your No last visit? Any new allergies or adverse reactions No Had a fall/change in ADL's that may No increase risk of falls Signs or symptoms of abuse and/or No neglect since last visit Have you been in the hospital since your No last visit? Has dressing in place as prescribed Yes Has compression in place as prescribed Yes Has offloadiing in place as prescribed Yes Experienced any changes in pain level or No management Left Footwear Surgical Shoe with pressure relief insole Right Footwear Surgical Shoe with pressure relief insole Pain Scale: 0-10 Numeric Is Patient Pain Free? Yes - Nurse 1 - General Ulcer Measurement Start: 11/19/24 09:49 Freq: Status: Active Protocol: Activity Type Activity Date Activity User E-sign Co-sign Detail Recorded Client Recorded Date Recorded By Document 11/19/24 09:49 [id number] 11/19/24 09:57 11/19/24 09:49 Wound Center Nurse 1 4 LT LAT FOOT -Current Size (cm) - Length 0.1 -Current Size (cm) - Width 0.1 -Current Size (cm) - Depth 0.1 -Total Square Cm 0.01 -Date of Last Picture (Recall this 11/19/24 field) -Photo Taken Yes -Epithelialization Large 67-100% -Tunneling No -Undermining/Tunneling No -Circular Undermining No -Exudate Amt None Present -Wound Margin Distinct, Outline Attached -Slough/Fibrin Yes -Texture (Maxine-wound Skin Appearance) Assessed -Moisture (Maxine-wound Skin Appearance) Assessed -Color (Maxine-wound Skin Appearance) Assessed -Temperature (Maxine-wound Skin No Abnormality Appearance) (Pt Warm) -Tenderness on Palpation (Maxine-wound No Skin Appearance) -Ulcer Cleansing Soap and Water -Foul Odor after Cleansing No -Anesthetic Used 5% Lidocaine Gel -Wound Comment(s) scabbed over, patient thinks wound is healed Lower Limb Edema Present No Left Calf (cm) 39.3 Left Ankle (cm) 28 WC - Nurse 2 - General Ulcer CM Notes Start: 11/19/24 09:49 Freq: Status: Active Protocol: Activity Type Activity Date Activity User E-sign Co-sign Detail Recorded Client Recorded Date Recorded By Document 11/19/24 10:37 [id number] 11/19/24 10:40 11/19/24 10:37 Wound Center Nurse 2 4 LT LAT FOOT -Time 10:37 -Correct Patient Yes -Correct Side, Site, Position No -Correct Procedure No -Procedure Performed No -Post Debridement (cm) - Length 0 -Post Debridement (cm) - Width 0 -Post Debridement (cm) - Depth 0 -Total Square (Post) (cm) 0 -Area of Debridement (cm) - Length 0 -Area of Debridement (cm) - Width 0 -Total Square (Area) (cm) 0 -Wound/Ulcer Outcome Healed- Epithelialized Pain Scale: 0-10 Numeric Is Patient Pain Free? Yes - Nurse 3 - General Ulcer D/C NN Start: 11/19/24 09:49 Freq: Status: Active Protocol: Activity Type Activity Date Activity User E-sign Co-sign Detail Recorded Client Recorded Date Recorded By Document 11/19/24 10:46 [id number] 11/19/24 10:46 11/19/24 10:46 Wound Care Center Nurse 3 LLE -Lotion applied to leg before No compression wrap -Tubular Bandage Single Layer -Size of Tubigrip Used Size D -Size D ($) 2 Pain Scale: 0-10 Numeric Is Patient Pain Free? Yes WC - Visit Discharge Discharge Condition Stable Ambulatory Status Wheelchair Transportation Private Auto Clinical Summary of Care Provided Yes Assessment/Plan Assessment/Plan (1) Non-pressure chronic ulcer of other part of left foot with necrosis of muscle: CODE(S): L97.523 - Non-pressure chronic ulcer of other part of left foot with necrosis of muscle PLAN: Patient was examined and evaluated. All findings were discussed with the patient. All questions were answered to the patient's satisfaction. After review of the patient's full-thickness wound that showed 100% healing at this time. The patient will be discharged at the wound care center and to follow-up in office within 1 week. Will move forward with authorization for diabetic shoes and inserts to help offload the amputation site area to the left foot and establish better ground control with custom inserts and diabetic shoes. Patient will continue strict blood sugar control. Patient was grateful for his care and will be discharged today. 11/19/24 1109 <Electronically signed by Felipe Barnett DPM> Cosigner Signature (if applicable): CC: ~ Signed [facility] Work Phone: [phone] [phone] Progress note [facility] [address] [place] [address] Progress Note - Wound Care 11/19/24 1107 MR#: [id number] Acct: [id number] Name: EMILEE ARAGON Rep #:[id number] : 1950 74 From: Felipe Hernandez PM PCP: Dr. Floyd Ricketts, DO Status:REG RCR Location: History of Present Illness Date of Service: 11/19/24 Chief Complaint: Left foot full-thickness wound History of Wound: Stable left foot wound with amniotic graft substitute. Progress of Wound: Stable full-thickness wound with graft application left foot Subjective Subjective Mr. Aragon is a 74-year-old diabetic male presenting to wound care center today for follow-up evaluation of full-thickness wound with application of amniotic skin graft substitute to the left lateralfoot. Patient has completed all of the amniotic skin graft application and states that his wound ishealed. His blood sugars well-controlled. He is not taking metformin anymore and noticed improvement to swelling to the bilateral lower extremity. He denies any new open wounds or abrasions. Denies trauma. Denies constitutional symptoms. No other pedal complaints at this time. Objective Data Objective Data Vital Signs: Vital Signs Temp Pulse Resp BP O2 Del Method 97.4 F L 79 18 150/69 H Room Air 11/13/24 00:29 11/19/24 09:49 11/19/24 09:49 11/19/24 09:49 11/19/24 09:49 Oxygen Delivery Method Room Air Weight: 122.924 kg Body Mass Index (BMI) 35.7 Lab / Micro Data Micro: Microbiology 10/15/24 09:16 Ulcer, Decubitus - Left Foot Gram Stain - Final 10/15/24 09:16 Ulcer, Decubitus - Left Foot Wound Culture - Final Meth. resistant Staph. aureus 10/15/24 09:16 Ulcer, Decubitus - Left Foot Anaerobic Culture - Final Anaerobic cocci Physical Exam Narrative Vascular: DP and PT pulses are faintly palpable to left extremity. CFT is brisk. Skin temp great iswarm to warm from proximal ankles to distal digits toleft lower extremity. Nonpitting edema appreciated left lower extremity. No erythema to the left foot. Neurological: Light touch intact. Protective station is absent. Dermatological: Full-thickness wound to lateral left foot is now healed. No newbreakdown of skin orconcern for infection. Musculoskeletal: No pain on palpation to the full-thickness wound to the left foot. No pain with calf pressure. Debridement Note Debridement Note Post-Debridement Measurements and Additional Note: Post-Debridement Measurements/Treatment - Nurse 1 - General Ulcer Assessment Start: 11/19/24 09:49 Freq: Status: Active Protocol: [email or web address] Activity Type Activity Date Activity User E-sign Co-sign Detail Recorded Client Recorded Date Recorded By Document 11/19/24 09:49 [id number] 11/19/24 09:57 11/19/24 09:49 - Today's Visit Information Type of service Follow-up Visit (Physician/COLOR PASTE MIXER ) Arrival Mode Wheelchair Transfer Assistance None Patient Identification Verified (Name & Yes ) Patient Requires Transmission-Based No Precautions Height and Weight Body Mass Index (BMI) 35.7 BMI Classification Obese Vital Signs Pulse Rate (60-100) 79 Pulse Location Monitor Respiratory Rate (12-18) 18 Respiratory rate source Observation Oxygen Delivery Method Room Air Blood Pressure (90/60-120/80) 150/69 H Blood Pressure Mean (mm Hg) 96 Source Monitor Position Sitting Blood Pressure Location Left Arm History Since Last Visit- (Skip if this is Patient's initial visit) Have you changed medications since your No last visit? Any new allergies or adverse reactions No Had a fall/change in ADL's that may No increase risk of falls Signs or symptoms of abuse and/or No neglect since last visit Have you been in the hospital since your No last visit? Has dressing in place as prescribed Yes Has compression in place as prescribed Yes Has offloadiing in place as prescribed Yes Experienced any changes in pain level or No management Left Footwear Surgical Shoe with pressure relief insole Right Footwear Surgical Shoe with pressure relief insole Pain Scale: 0-10 Numeric Is Patient Pain Free? Yes WC - Nurse 1 - General Ulcer Measurement Start: 11/19/24 09:49 Freq: Status: Active Protocol: Activity Type Activity Date Activity User E-sign Co-sign Detail Recorded Client Recorded Date Recorded By Document 11/19/24 09:49 [id number] 11/19/24 09:57 GM 11/19/24 09:49 Wound Center Nurse 1 4 LT LAT FOOT -Current Size (cm) - Length 0.1 -Current Size (cm) - Width 0.1 -Current Size (cm) - Depth 0.1 -Total Square Cm 0.01 -Date of Last Picture (Recall this 11/19/24 field) -Photo Taken Yes -Epithelialization Large 67-100% -Tunneling No -Undermining/Tunneling No -Circular Undermining No -Exudate Amt None Present -Wound Margin Distinct, Outline Attached -Slough/Fibrin Yes -Texture (Maxine-wound Skin Appearance) Assessed -Moisture (Maxine-wound Skin Appearance) Assessed -Color (Maxine-wound Skin Appearance) Assessed -Temperature (Maxine-wound Skin No Abnormality Appearance) (Pt Warm) -Tenderness on Palpation (Maxine-wound No Skin Appearance) -Ulcer Cleansing Soap and Water -Foul Odor after Cleansing No -Anesthetic Used 5% Lidocaine Gel -Wound Comment(s) scabbed over, patient thinks wound is healed Lower Limb Edema Present No Left Calf (cm) 39.3 Left Ankle (cm) 28 - Nurse 2 - General Ulcer CM Notes Start: 11/19/24 09:49 Freq: Status: Active Protocol: Activity Type Activity Date Activity User E-sign Co-sign Detail Recorded Client Recorded Date Recorded By Document 11/19/24 10:37 [id number] 11/19/24 10:40 11/19/24 10:37 Wound Center Nurse 2 4 LT LAT FOOT -Time 10:37 -Correct Patient Yes -Correct Side, Site, Position No -Correct Procedure No -Procedure Performed No -Post Debridement (cm) - Length 0 -Post Debridement (cm) - Width 0 -Post Debridement (cm) - Depth 0 -Total Square (Post) (cm) 0 -Area of Debridement (cm) - Length 0 -Area of Debridement (cm) - Width 0 -Total Square (Area) (cm) 0 -Wound/Ulcer Outcome Healed- Epithelialized Pain Scale: 0-10 Numeric Is Patient Pain Free? Yes - Nurse 3 - General Ulcer D/C NN Start: 11/19/24 09:49 Freq: Status: Active Protocol: Activity Type Activity Date Activity User E-sign Co-sign Detail Recorded Client Recorded Date Recorded By Document 11/19/24 10:46 [id number] 11/19/24 10:46 11/19/24 10:46 Wound Care Center Nurse 3 LLE -Lotion applied to leg before No compression wrap -Tubular Bandage Single Layer -Size of Tubigrip Used Size D -Size D ($) 2 Pain Scale: 0-10 Numeric Is Patient Pain Free? Yes - Visit Discharge Discharge Condition Stable Ambulatory Status Wheelchair Transportation Private Auto Clinical Summary of Care Provided Yes Assessment/Plan Assessment/Plan (1) Non-pressure chronic ulcer of other part of left foot with necrosis of muscle: CODE(S): L97.523 - Non-pressure chronic ulcer of other part of left foot with necrosis of muscle PLAN: Patient was examined and evaluated. All findings were discussed with the patient. All questions were answered to the patient's satisfaction. After review of the patient's full-thickness wound that showed 100% healing at this time. The patient will be discharged at the wound care center and to follow-up in office within 1 week. Will move forward with authorization for diabetic shoes and inserts to help offload the amputation site area tothe left foot and establish better ground control with custom inserts and diabetic shoes. Patient will continue strict blood sugar control. Patient was grateful for his care and will be discharged today. 11/19/24 1109 Cosigner Signature (if applicable): CC: ~ Signed [facility]03-26-2025 Progress note Author Felipe Barnett [facility] Note Date/Time October 08, 2024 10: 04am [facility] [address] [place] [address] Progress Note - Wound Care 10/08/24 1001 MR#: [id number] Acct: [id number] Name: EMILEE ARAGON Rep #:[id number] : 1950 74 From: Felipe TRUONG PCP: Dr. Floyd Ricketts, DO Status:REG RCR Location: History of Present Illness Date of Service: 10/08/24 Chief Complaint: Left foot full-thickness wound History of Wound: Stable left foot wound with amniotic graft substitute. Progress of Wound: Stable full-thickness wound left foot no sign of infection. Subjective Subjective Mr. Aragon is a 74-year-old diabetic male presented wound care center today for follow-up evaluation of full-thickness wound to the left lateral foot. He has been compliant with dressing changes and left his dressing clean dry and intact. His blood sugar is well-controlled and his blood sugar today was 90 mg/dL. He denies any drainage. Denies any trauma. Denies constitutional symptoms. No other pedal complaints at this time. Objective Data Objective Data Vital Signs: Vital Signs Temp Pulse Resp BP O2 Del Method 97 F L 84 15 165/80 H Room Air 10/08/24 08:35 10/08/24 08:35 10/08/24 08:35 10/08/24 08:35 10/01/24 09:06 Oxygen Delivery Method Room Air Weight: 122.924 kg Body Mass Index (BMI) 35.7 Physical Exam Narrative Vascular: DP and PT pulses are faintly palpable to left extremity. CFT is brisk. No erythema. skin temp great is warm to warm from proximal ankles to distal digits to left lower extremity. Nonpitting edema appreciated left lower extremity. Neurological: Light touch intact. Protective station is absent. Dermatological: Full-thickness wound to the lateral left foot secondary to amputation measuring 1.2 x 5.5 x 0.1 cm. Wound base is granular. No drainage or sign of infection. No tunneling. No malodor. No probe to bone. Evidence of metallic foreign body to the plantar aspect of the left foot. No erythema drainage or sign of infection. Excisional debridement down to and including subcutaneous tissue, fascia, tendonand bone of the left foot with a number 7 mm dermal curette without incident. Predebridement measurement was 1.0 x 5.0 x 0.1 cm. Postdebridement measurement is 1.2 x 5.5 x 0.1 cm. EpiFix mesh 4.0 x 4.5 cm was applied to the left full-thickness ulceration with 100% use. Eighth application. The graft site was free and clear of any infection. The wound/skin graft substitute was dressed with nonadherent bandagesecured in place with Steri-Strips followed by bolster dressing as well as a double layer Tubigrip. Topical anesthesia was applied to the foreign body and once anesthesia was confirmed using a #15 blade the metallic foreign body was removed measuring approximately 0.5 cm in length. Metallic foreign body was discarded and sharps. Musculoskeletal: No pain on palpation to the full-thickness wound to the left foot. No pain with calf pressure. Debridement Note Debridement Note Debridement Free Text: Excisional debridement down to and including subcutaneoustissue, fascia, tendon and bone of the left foot with a number 7 mm dermal curette without incident. Predebridement measurement was 1.0 x 5.0 x 0.1 cm. Postdebridement measurement is 1.2 x 5.5 x 0.1 cm. EpiFix mesh 4.0 x 4.5 cm was applied to the left full-thickness ulceration with 100% use. Eighth application. The graft site was free and clear of any infection. The wound/skin graft substitute was dressed with nonadherent bandagesecured in place with Steri-Strips followed by bolster dressing as well as a double layer Tubigrip. Topical anesthesia was applied to the foreign body and once anesthesia was confirmed using a #15 blade the metallic foreign body was removed measuring approximately 0.5 cm in length. Metallic foreign body was discarded and sharps. Post-Debridement Measurements and Additional Note: Post-Debridement Measurements/Treatment WC - Nurse 1 - General Ulcer Assessment Start: 03/05/25 10:13 Freq: Status: Active Protocol: WC.LOWEXT Activity Type Activity Date Activity User E-sign Co-sign Detail Recorded Client Recorded Date Recorded By Document 09/17/24 10:14 KW [id number] 09/17/24 10:16 KW Document 09/24/24 10:33 GM [id number] 09/24/24 10:35 GM Document 10/01/24 09:00 MT [id number] 10/01/24 09:04 MT Document 10/01/24 09:06 MT [id number] 10/01/24 09:06 MT Document 10/08/24 08:35 ML [id number] 10/08/24 08:37 ML 09/17/24 09/24/24 10/01/24 10:14 10:33 09:00 WC - Today's Visit Information Type of service Initial Visit Follow-up Visit (Physician/COLOR PASTE MIXER ) Arrival Mode Wheelchair Ambulatory Transfer Assistance None Accompanied by Patient Identification Verified (Name & Yes Yes ) Safety Precautions Height and Weight Body Mass Index (BMI) 35.7 35.7 35.7 BMI Classification Obese Obese Obese Vital Signs Temperature (97.8 F-99.1 F) 97.1 F L 96.9 F L Temperature Source Temporal Temporal Pulse Rate (60-100) 83 70 Pulse Location Monitor Monitor Respiratory Rate (12-18) 18 16 Respiratory rate source Observation Observation Oxygen Delivery Method Room Air Room Air Blood Pressure (90/60-120/80) 165/87 H 163/76 H Blood Pressure Mean (mm Hg) 113 105 Source Monitor Monitor Position Semi-Fowlers Sitting Blood Pressure Location Left Arm Left Arm History Since Last Visit- (Skip if this is Patient's initial visit) Have you changed medications since your No No last visit? Any new allergies or adverse reactions No No Had a fall/change in ADL's that may No No increase risk of falls Signs or symptoms of abuse and/or No No neglect since last visit Have you been in the hospital since your No No last visit? Has dressing in place as prescribed Yes Yes Has compression in place as prescribed Yes Yes Has offloadiing in place as prescribed Yes Yes Experienced any changes in pain level or No No management Left Footwear No Footwear Right Footwear No Footwear Pain Scale: 0-10 Numeric Is Patient Pain Free? 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/COLOR PASTE MIXER ) Arrival Mode Ambulatory, Wheelchair Transfer Assistance Accompanied by self Patient Identification Verified (Name & Yes ) Safety Precautions Fall Prevention Height and Weight Body Mass Index (BMI) 35.7 35.7 BMI Classification Obese Obese Vital Signs Temperature (97.8 F-99.1 F) 97 F L 97 F L Temperature Source Temporal Temporal Pulse Rate (60-100) 70 84 Pulse Location Monitor Monitor Respiratory Rate (12-18) 18 15 Respiratory rate source Observation Observation Oxygen Delivery Method Room Air Blood Pressure (90/60-120/80) 146/71 H 165/80 H Blood Pressure Mean (mm Hg) 96 108 Source Monitor Monitor Position Sitting Sitting Blood Pressure Location Left Arm Right Arm History Since Last Visit- (Skip if this is Patient's initial visit) Have you changed medications since your No last visit? Any new allergies or adverse reactions No Had a fall/change in ADL's that may No increase risk of falls Signs or symptoms of abuse and/or No neglect since last visit Have you been in the hospital since your No last visit? Has dressing in place as prescribed Yes Yes Has compression in place as prescribed Yes N/A Has offloadiing in place as prescribed Yes No Experienced any changes in pain level or Yes No management Left Footwear No Footwear Right Footwear No Footwear Pain Scale: 0-10 Numeric Is Patient Pain Free? Yes Yes - Nurse 1 - General Ulcer Measurement Start: 09/17/24 10:13 Freq: Status: Active Protocol: Activity Type Activity Date Activity User E-sign Co-sign Detail Recorded Client Recorded Date Recorded By Document 09/17/24 10:14 KW [id number] 09/17/24 10:16 KW Document 09/24/24 10:33 GM [id number] 09/24/24 10:35 GM Document 10/01/24 09:00 MT [id number] 10/01/24 09:04 MT Document 10/08/24 08:35 ML [id number] 10/08/24 08:37 ML 09/17/24 09/24/24 10/01/24 10:14 10:33 09:00 Wound Center Nurse 1 4 LT LAT FOOT -Current Size (cm) - Length 8.7 1.5 9 -Current Size (cm) - Width 1.2 8.0 1.5 -Current Size (cm) - Depth 0.2 0.1 0.2 -Total Square Cm 10.44 12.00 13.5 -Date of Last Picture (Recall this 09/17/24 09/24/24 field) -Photo Taken Yes -Epithelialization Small 1-33% -Tunneling No -Tunneling Position (O'clock) 12 -Tunneling Distance (cm) 0.5 -Undermining/Tunneling Yes No Yes -Undermining/Tunneling Starts (O'clock 9 9 ) -Undermining/Tunneling Ends (O'clock) 11 12 -Maximum Distance (cm) 0.5 0.3 -Circular Undermining No -Exudate Amt Medium Medium -Exudate Type Serosanguineous Serosanguineous Serosanguineous -Wound Margin Distinct, Distinct, Well Defined, Outline Outline Not Attached Attached Attached -Granulation Amt Large (67-100%) Medium (34-66%) Large (67-100%) -Granulation Quality [place] Red Pale,[place] -Slough/Fibrin Yes -Necrosis Amt Small (1-33%) Small (1-33%) Small (1-33%) -Necrotic Tissue Type Adherent Slough Adherent Slough -Texture (Maxine-wound Skin Appearance) Assessed Assessed Assessed -Moisture (Maxine-wound Skin Appearance) Assessed Assessed Assessed -Color (Maxine-wound Skin Appearance) Assessed Assessed Assessed -Temperature (Maxine-wound Skin No Abnormality No Abnormality No Abnormality Appearance) (Pt Warm) (Pt Warm) (Pt Warm) -Tenderness on Palpation (Maxine-wound No No No Skin Appearance) -Ulcer Cleansing Soap and Water Soap and Water Soap and Water -Foul Odor after Cleansing No No No -Anesthetic Used 4% Lidocaine 5% Lidocaine 4% Lidocaine Solution Gel Solution Lower Limb Edema Present No NA Left Calf (cm) 39.5 Left Ankle (cm) 24.4 10/08/24 08:35 Wound Center Nurse 1 4 LT LAT FOOT -Current Size (cm) - Length 0.1 -Current Size (cm) - Width 0.1 -Current Size (cm) - Depth 0.1 -Total Square Cm 0.01 -Date of Last Picture (Recall this field) -Photo Taken -Epithelialization -Tunneling -Tunneling Position (O'clock) -Tunneling Distance (cm) -Undermining/Tunneling -Undermining/Tunneling Starts (O'clock ) -Undermining/Tunneling Ends (O'clock) -Maximum Distance (cm) -Circular Undermining -Exudate Amt Medium -Exudate Type Serosanguineous -Wound Margin Distinct, Outline Attached -Granulation Amt Medium (34-66%) -Granulation Quality -Slough/Fibrin Yes -Necrosis Amt Medium (34-66%) -Necrotic Tissue Type Adherent Slough -Texture (Maxine-wound Skin Appearance) Assessed -Moisture (Maxine-wound Skin Appearance) Assessed -Color (Maxine-wound Skin Appearance) Assessed -Temperature (Maxine-wound Skin No Abnormality Appearance) (Pt Warm) -Tenderness on Palpation (Maxine-wound No Skin Appearance) -Ulcer Cleansing Soap and Water -Foul Odor after Cleansing No -Anesthetic Used 5% Lidocaine Gel Lower Limb Edema Present Left Calf (cm) Left Ankle (cm) WC - Nurse 2 - General Ulcer CM Notes Start: 09/17/24 10:13 Freq: Status: Active Protocol: Activity Type Activity Date Activity User E-sign Co-sign Detail Recorded Client Recorded Date Recorded By Document 09/17/24 10:32 [id number] 09/17/24 10:37 Document 09/24/24 10:46 [id number] 09/24/24 10:52 Document 10/01/24 09:21 [id number] 10/01/24 09:25 Document 10/08/24 09:06 [id number] 10/08/24 09:08 09/17/24 09/24/24 10/01/24 10:32 10:46 09:21 Wound Center Nurse 2 4 LT LAT FOOT -Time 10:32 10:49 09:22 -Correct Patient Yes Yes Yes -Correct Side, Site, Position Yes Yes Yes -Correct Procedure Yes Yes Yes -Procedure Performed Yes Yes Yes -Type of Procedure Debridement Debridement Debridement -Clinical Debridement Subcutaneous Subcutaneous Subcutaneous -Tissue Removed Subcutaneous Subcutaneous Subcutaneous -Post Debridement (cm) - Length 1.4 1.1 1.2 -Post Debridement (cm) - Width 9 8.2 7 -Post Debridement (cm) - Depth 0.1 0.1 0.1 -Total Square (Post) (cm) 12.6 9.02 8.4 -Area of Debridement (cm) - Length 1.4 1.1 1.2 -Area of Debridement (cm) - Width 9 8.2 7 -Total Square (Area) (cm) 12.6 9.02 8.4 -Tunneling No No No -Undermining/Tunneling No No No -Circular Undermining No No No -Wound/Ulcer Outcome Not Healed Not Healed Not Healed -Ulcer Cleansing Rinsed/ Rinsed/ Rinsed/ Irrigated with Irrigated with Irrigated with Saline Saline Saline -Foul Odor after Cleansing No No No -Bioengineered Tissue Yes Yes Yes -Type of Bioengineered Tissue Epifix Mesh Epifix Mesh Epifix Mesh -Expiration Date 02/13/29 03/16/29 03/16/29 -Product Lot Number [id number] -Percent Used 100 100 100 -Lot number of Saline Used [id number] -Bleeding Controlled with Pressure Pressure Pressure -Treatment Response Procedure Procedure Procedure Tolerated Well Tolerated Well Tolerated Well -Offloading Yes Yes Yes -Type of Offloading Surgical Shoe Surgical Shoe Surgical Shoe -Debridement - Subq, 1st 20sq cm No No No -Apply Skin Sub - 1st 25 sq cm - Feet 1 1 1 -Epifix Mesh (per sq cm) 11 11 11 Pain Scale: 0-10 Numeric Is Patient Pain Free? Yes Yes Yes 10/08/24 09:06 Wound Center Nurse 2 4 LT LAT FOOT -Time 09:06 -Correct Patient Yes -Correct Side, Site, Position Yes -Correct Procedure Yes -Procedure Performed Yes -Type of Procedure Debridement -Clinical Debridement Subcutaneous -Tissue Removed Subcutaneous -Post Debridement (cm) - Length 1.2 -Post Debridement (cm) - Width 5.5 -Post Debridement (cm) - Depth 0.1 -Total Square (Post) (cm) 6.60 -Area of Debridement (cm) - Length 1.2 -Area of Debridement (cm) - Width 5.5 -Total Square (Area) (cm) 6.60 -Tunneling No -Undermining/Tunneling No -Circular Undermining No -Wound/Ulcer Outcome Not Healed -Ulcer Cleansing Rinsed/ Irrigated with Saline -Foul Odor after Cleansing No -Bioengineered Tissue Yes -Type of Bioengineered Tissue Epifix Mesh -Expiration Date 03/16/29 -Product Lot Number [id number] -Percent Used 100 -Lot number of Saline Used [id number] -Bleeding Controlled with Pressure -Treatment Response Procedure Tolerated Well -Offloading Yes -Type of Offloading Surgical Shoe -Debridement - Subq, 1st 20sq cm No -Apply Skin Sub - 1st 25 sq cm - Feet 1 -Epifix Mesh (per sq cm) 11 Pain Scale: 0-10 Numeric Is Patient Pain Free? Yes - Nurse 3 - General Ulcer D/C NN Start: 09/17/24 10:13 Freq: Status: Active Protocol: Activity Type Activity Date Activity User E-sign Co-sign Detail Recorded Client Recorded Date Recorded By Document 09/17/24 10:54 ML [id number] 09/17/24 10:55 ML Document 09/24/24 11:03 DL [id number] 09/24/24 11:04 DL Document 10/01/24 09:49 CP [id number] 10/01/24 09:50 CP Document 10/08/24 09:16 JF [id number] 10/08/24 09:16 JF 09/17/24 09/24/24 10/01/24 10:54 11:03 09:49 Wound Care Center Nurse 3 4 LT LAT FOOT -Ulcer Cleansing Not Cleansed -Foul Odor after Cleansing No -Other Dressing abd, sascha from EPifix sascha wrap foot to knee -Primary Dressing Covered/Secured with Dry Gauze, Dry Gauze & Dry Gauze & Secured with Roll Gauze, Roll Gauze, Tape Secured with Secured with Tape Tape -Other Covering SASCHA LLE -Compression Wrap Treatment Response Procedure Tolerated Well Pain Scale: 0-10 Numeric Is Patient Pain Free? Yes Yes Yes - Visit Discharge Discharge Condition Stable Stable Ambulatory Status Wheelchair Wheelchair Transportation Private Auto Private Auto Medication Reconcilliation completed & provided to patient/care provider Clinical Summary of Care Provided Yes Facility Type Half-Way Care Half-Way Care Facility Facility Orders Sent Yes Yes 10/08/24 09:16 Wound Care Center Nurse 3 4 LT LAT FOOT -Ulcer Cleansing Rinsed/ Irrigated with Saline -Foul Odor after Cleansing No -Other Dressing abd pad and kerlix. ATB ointment to area where charred of metal was removed -Primary Dressing Covered/Secured with -Other Covering LLE -Compression Wrap Sascha Wrap Treatment Response Pain Scale: 0-10 Numeric Is Patient Pain Free? Yes WC - Visit Discharge Discharge Condition Stable Ambulatory Status Wheelchair Transportation Private Auto Medication Reconcilliation completed & Yes provided to patient/care provider Clinical Summary of Care Provided Yes Facility Type Orders Sent Assessment/Plan Assessment/Plan (1) Non-pressure chronic ulcer of other part of left foot with bone involvement without evidence of necrosis: CODE(S): L97.526 - Non-pressure chronic ulcer of other part of left foot with bone involvement without evidence of necrosis PLAN: Patient was examined and evaluated. All findings were discussed with the patient. All questions were answered to the patient's satisfaction. Excisional debridement down to and including subcutaneous tissue, fascia, tendonand bone of the left foot with a number 7 mm dermal curette without incident. Predebridement measurement was 1.0 x 5.0 x 0.1 cm. Postdebridement measurement is 1.2 x 5.5 x 0.1 cm. EpiFix mesh 4.0 x 4.5 cm was applied to the left full-thickness ulceration with 100% use. Eighth application. The graft site was free and clear of any infection. The wound/skin graft substitute was dressed with nonadherent bandagesecured in place with Steri-Strips followed by bolster dressing as well as a double layer Tubigrip. Topical anesthesia was applied to the foreign body and once anesthesia was confirmed using a #15 blade the metallic foreign body was removed measuring approximately 0.5 cm in length. Metallic foreign body was discarded and sharps. Triple-lumen antibiotic was applied to the level of the foreign body and covered with a dry sterile dressing. Patient will continue to ambulate as tolerated in surgical shoe. He will continue strict blood sugar control. Follow-up at the wound care center with Dr. Barnett in 1 week. (2) Foreign body in left foot: CODE(S): S90.852A - Superficial foreign body, left foot, initial encounter 10/08/24 1004 <Electronically signed by Felipe Barnett DPM> Cosigner Signature (if applicable): CC: ~ Signed [facility] Work Phone: [phone] Progress note [facility] [place] [address] Progress Note - Wound Care 10/08/24 1001 MR#: [id number] Acct: [id number] Name: EMILEE ARAGON Rep #:[id number] : 1950 74 From: Felipe TRUONG PCP: Dr. Floyd Ricketts, DO Status:REG RCR Location: History of Present Illness Date of Service: 10/08/24 Chief Complaint: Left foot full-thickness wound History of Wound: Stable left foot wound with amniotic graft substitute. Progress of Wound: Stable full-thickness wound left foot no sign of infection. Subjective Subjective Mr. Aragon is a 74-year-old diabetic male presented wound care center today for follow-up evaluation of full-thickness wound to the left lateral foot. He has been compliant with dressing changes and left his dressing clean dry and intact. His blood sugar is well-controlled and his blood sugar todaywas 90 mg/dL. He denies any drainage. Denies any trauma. Denies constitutional symptoms. No other pedal complaints at this time. Objective Data Objective Data Vital Signs: Vital Signs Temp Pulse Resp BP O2 Del Method 97 F L 84 15 165/80 H Room Air 10/08/24 08:35 10/08/24 08:35 10/08/24 08:35 10/08/24 08:35 10/01/24 09:06 Oxygen Delivery Method Room Air Weight: 122.924 kg Body Mass Index (BMI) 35.7 Physical Exam Narrative Vascular: DP and PT pulses are faintly palpable to left extremity. CFT is brisk. No erythema. skin temp great is warm to warm from proximal ankles to distal digits to left lower extremity. Nonpittingedema appreciated left lower extremity. Neurological: Light touch intact. Protective station is absent. Dermatological: Full-thickness wound to the lateral left foot secondary to amputation measuring 1.2x 5.5 x 0.1 cm. Wound base is granular. No drainage or sign of infection. No tunneling. No malodor.No probe to bone. Evidence of metallic foreign body to the plantar aspect of the left foot. No erythema drainage or sign of infection. Excisional debridement down to and including subcutaneous tissue, fascia, tendonand bone of the left foot with a number 7 mm dermal curette without incident. Predebridement measurement was 1.0 x 5.0 x 0.1 cm. Postdebridement measurement is 1.2 x 5.5 x 0.1 cm. EpiFix mesh 4.0 x 4.5 cm was applied to the left full-thickness ulceration with 100% use. Eighth application. The graft site was free and clear of any infection. The wound/skin graft substitute was dressed with nonadherent bandagesecured in place with Steri-Strips followed by bolster dressing as well as a double layer Tubigrip. Topical anesthesia was applied to the foreign body and once anesthesia was confirmed using a #15 blade the metallic foreign body was removed measuring approximately 0.5 cm in length. Metallic foreignbody was discarded and sharps. Musculoskeletal: No pain on palpation to the full-thickness wound to the left foot. No pain with calf pressure. Debridement Note Debridement Note Debridement Free Text: Excisional debridement down to and including subcutaneoustissue, fascia, tendon and bone of the left foot with a number 7 mm dermal curette without incident. Predebridement measurement was 1.0 x 5.0 x 0.1 cm. Postdebridement measurement is 1.2 x 5.5 x 0.1 cm. EpiFix mesh 4.0 x 4.5 cm was applied to the left full-thickness ulceration with 100% use. Eighth application. The graft site was free and clear of any infection. The wound/skin graft substitute was dressed with nonadherent bandagesecured in place with Steri-Strips followed by bolster dressing as well as a double layer Tubigrip. Topical anesthesia was applied to the foreign body and once anesthesia was confirmed using a #15 blade the metallic foreign body was removed measuring approximately 0.5 cm in length. Metallic foreignbody was discarded and sharps. Post-Debridement Measurements and Additional Note: Post-Debridement Measurements/Treatment LANIE - Nurse 1 - General Ulcer Assessment Start: 09/17/24 10:13 Freq: Status: Active Protocol: FIDENCIO Activity Type Activity Date Activity User E-sign Co-sign Detail Recorded Client Recorded Date Recorded By Document 09/17/24 10:14 KW [id number] 09/17/24 10:16 KW Document 09/24/24 10:33 GM [id number] 09/24/24 10:35 GM Document 10/01/24 09:00 MT [id number] 10/01/24 09:04 MT Document 10/01/24 09:06 MT [id number] 10/01/24 09:06 MT Document 10/08/24 08:35 ML [id number] 10/08/24 08:37 ML 09/17/24 09/24/24 10/01/24 10:14 10:33 09:00 - Today's Visit Information Type of service Initial Visit Follow-up Visit (Physician/COLOR PASTE MIXER ) Arrival Mode Wheelchair Ambulatory Transfer Assistance None Accompanied by Patient Identification Verified (Name & Yes Yes ) Safety Precautions Height and Weight Body Mass Index (BMI) 35.7 35.7 35.7 BMI Classification Obese Obese Obese Vital Signs Temperature (97.8 F-99.1 F) 97.1 F L 96.9 F L Temperature Source Temporal Temporal Pulse Rate (60-100) 83 70 Pulse Location Monitor Monitor Respiratory Rate (12-18) 18 16 Respiratory rate source Observation Observation Oxygen Delivery Method Room Air Room Air Blood Pressure (90/60-120/80) 165/87 H 163/76 H Blood Pressure Mean (mm Hg) 113 105 Source Monitor Monitor Position Semi-Fowlers Sitting Blood Pressure Location Left Arm Left Arm History Since Last Visit- (Skip if this is Patient's initial visit) Have you changed medications since your No No last visit? Any new allergies or adverse reactions No No Had a fall/change in ADL's that may No No increase risk of falls Signs or symptoms of abuse and/or No No neglect since last visit Have you been in the hospital since your No No last visit? Has dressing in place as prescribed Yes Yes Has compression in place as prescribed Yes Yes Has offloadiing in place as prescribed Yes Yes Experienced any changes in pain level or No No management Left Footwear No Footwear Right Footwear No Footwear Pain Scale: 0-10 Numeric Is Patient Pain Free? 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/COLOR PASTE MIXER ) Arrival Mode Ambulatory, Wheelchair Transfer Assistance Accompanied by self Patient Identification Verified (Name & Yes ) Safety Precautions Fall Prevention Height and Weight Body Mass Index (BMI) 35.7 35.7 BMI Classification Obese Obese Vital Signs Temperature (97.8 F-99.1 F) 97 F L 97 F L Temperature Source Temporal Temporal Pulse Rate (60-100) 70 84 Pulse Location Monitor Monitor Respiratory Rate (12-18) 18 15 Respiratory rate source Observation Observation Oxygen Delivery Method Room Air Blood Pressure (90/60-120/80) 146/71 H 165/80 H Blood Pressure Mean (mm Hg) 96 108 Source Monitor Monitor Position Sitting Sitting Blood Pressure Location Left Arm Right Arm History Since Last Visit- (Skip if this is Patient's initial visit) Have you changed medications since your No last visit? Any new allergies or adverse reactions No Had a fall/change in ADL's that may No increase risk of falls Signs or symptoms of abuse and/or No neglect since last visit Have you been in the hospital since your No last visit? Has dressing in place as prescribed Yes Yes Has compression in place as prescribed Yes N/A Has offloadiing in place as prescribed Yes No Experienced any changes in pain level or Yes No management Left Footwear No Footwear Right Footwear No Footwear Pain Scale: 0-10 Numeric Is Patient Pain Free? Yes Yes WC - Nurse 1 - General Ulcer Measurement Start: 09/17/24 10:13 Freq: Status: Active Protocol: Activity Type Activity Date Activity User E-sign Co-sign Detail Recorded Client Recorded Date Recorded By Document 09/17/24 10:14 KW [id number] 09/17/24 10:16 KW Document 09/24/24 10:33 GM [id number] 09/24/24 10:35 GM Document 10/01/24 09:00 MT [id number] 10/01/24 09:04 MT Document 10/08/24 08:35 ML [id number] 10/08/24 08:37 ML 09/17/24 09/24/24 10/01/24 10:14 10:33 09:00 Wound Center Nurse 1 4 LT LAT FOOT -Current Size (cm) - Length 8.7 1.5 9 -Current Size (cm) - Width 1.2 8.0 1.5 -Current Size (cm) - Depth 0.2 0.1 0.2 -Total Square Cm 10.44 12.00 13.5 -Date of Last Picture (Recall this 09/17/24 09/24/24 field) -Photo Taken Yes -Epithelialization Small 1-33% -Tunneling No -Tunneling Position (O'clock) 12 -Tunneling Distance (cm) 0.5 -Undermining/Tunneling Yes No Yes -Undermining/Tunneling Starts (O'clock 9 9 ) -Undermining/Tunneling Ends (O'clock) 11 12 -Maximum Distance (cm) 0.5 0.3 -Circular Undermining No -Exudate Amt Medium Medium -Exudate Type Serosanguineous Serosanguineous Serosanguineous -Wound Margin Distinct, Distinct, Well Defined, Outline Outline Not Attached Attached Attached -Granulation Amt Large (67-100%) Medium (34-66%) Large (67-100%) -Granulation Quality [place] Red Pale,[place] -Slough/Fibrin Yes -Necrosis Amt Small (1-33%) Small (1-33%) Small (1-33%) -Necrotic Tissue Type Adherent Slough Adherent Slough -Texture (Maxine-wound Skin Appearance) Assessed Assessed Assessed -Moisture (Maxine-wound Skin Appearance) Assessed Assessed Assessed -Color (Maxine-wound Skin Appearance) Assessed Assessed Assessed -Temperature (Maxine-wound Skin No Abnormality No Abnormality No Abnormality Appearance) (Pt Warm) (Pt Warm) (Pt Warm) -Tenderness on Palpation (Maxine-wound No No No Skin Appearance) -Ulcer Cleansing Soap and Water Soap and Water Soap and Water -Foul Odor after Cleansing No No No -Anesthetic Used 4% Lidocaine 5% Lidocaine 4% Lidocaine Solution Gel Solution Lower Limb Edema Present No NA Left Calf (cm) 39.5 Left Ankle (cm) 24.4 10/08/24 08:35 Wound Center Nurse 1 4 LT [facility] FOOT -Current Size (cm) - Length 0.1 -Current Size (cm) - Width 0.1 -Current Size (cm) - Depth 0.1 -Total Square Cm 0.01 -Date of Last Picture (Recall this field) -Photo Taken -Epithelialization -Tunneling -Tunneling Position (O'clock) -Tunneling Distance (cm) -Undermining/Tunneling -Undermining/Tunneling Starts (O'clock ) -Undermining/Tunneling Ends (O'clock) -Maximum Distance (cm) -Circular Undermining -Exudate Amt Medium -Exudate Type Serosanguineous -Wound Margin Distinct, Outline Attached -Granulation Amt Medium (34-66%) -Granulation Quality -Slough/Fibrin Yes -Necrosis Amt Medium (34-66%) -Necrotic Tissue Type Adherent Slough -Texture (Maxine-wound Skin Appearance) Assessed -Moisture (Maxine-wound Skin Appearance) Assessed -Color (Maxine-wound Skin Appearance) Assessed -Temperature (Maxine-wound Skin No Abnormality Appearance) (Pt Warm) -Tenderness on Palpation (Maxine-wound No Skin Appearance) -Ulcer Cleansing Soap and Water -Foul Odor after Cleansing No -Anesthetic Used 5% Lidocaine Gel Lower Limb Edema Present Left Calf (cm) Left Ankle (cm) WC - Nurse 2 - General Ulcer CM Notes Start: 09/17/24 10:13 Freq: Status: Active Protocol: Activity Type Activity Date Activity User E-sign Co-sign Detail Recorded Client Recorded Date Recorded By Document 09/17/24 10:32 [id number] 09/17/24 10:37 Document 09/24/24 10:46 [id number] 09/24/24 10:52 Document 10/01/24 09:21 [id number] 10/01/24 09:25 Document 10/08/24 09:06 [id number] 10/08/24 09:08 09/17/24 09/24/24 10/01/24 10:32 10:46 09:21 Wound Center Nurse 2 4 LT LAT FOOT -Time 10:32 10:49 09:22 -Correct Patient Yes Yes Yes -Correct Side, Site, Position Yes Yes Yes -Correct Procedure Yes Yes Yes -Procedure Performed Yes Yes Yes -Type of Procedure Debridement Debridement Debridement -Clinical Debridement Subcutaneous Subcutaneous Subcutaneous -Tissue Removed Subcutaneous Subcutaneous Subcutaneous -Post Debridement (cm) - Length 1.4 1.1 1.2 -Post Debridement (cm) - Width 9 8.2 7 -Post Debridement (cm) - Depth 0.1 0.1 0.1 -Total Square (Post) (cm) 12.6 9.02 8.4 -Area of Debridement (cm) - Length 1.4 1.1 1.2 -Area of Debridement (cm) - Width 9 8.2 7 -Total Square (Area) (cm) 12.6 9.02 8.4 -Tunneling No No No -Undermining/Tunneling No No No -Circular Undermining No No No -Wound/Ulcer Outcome Not Healed Not Healed Not Healed -Ulcer Cleansing Rinsed/ Rinsed/ Rinsed/ Irrigated with Irrigated with Irrigated with Saline Saline Saline -Foul Odor after Cleansing No No No -Bioengineered Tissue Yes Yes Yes -Type of Bioengineered Tissue Epifix Mesh Epifix Mesh Epifix Mesh -Expiration Date 02/13/29 03/16/29 03/16/29 -Product Lot Number [id number] -Percent Used 100 100 100 -Lot number of Saline Used [id number] -Bleeding Controlled with Pressure Pressure Pressure -Treatment Response Procedure Procedure Procedure Tolerated Well Tolerated Well Tolerated Well -Offloading Yes Yes Yes -Type of Offloading Surgical Shoe Surgical Shoe Surgical Shoe -Debridement - Subq, 1st 20sq cm No No No -Apply Skin Sub - 1st 25 sq cm - Feet 1 1 1 -Epifix Mesh (per sq cm) 11 11 11 Pain Scale: 0-10 Numeric Is Patient Pain Free? Yes Yes Yes 10/08/24 09:06 Wound Center Nurse 2 4 LT LAT FOOT -Time 09:06 -Correct Patient Yes -Correct Side, Site, Position Yes -Correct Procedure Yes -Procedure Performed Yes -Type of Procedure Debridement -Clinical Debridement Subcutaneous -Tissue Removed Subcutaneous -Post Debridement (cm) - Length 1.2 -Post Debridement (cm) - Width 5.5 -Post Debridement (cm) - Depth 0.1 -Total Square (Post) (cm) 6.60 -Area of Debridement (cm) - Length 1.2 -Area of Debridement (cm) - Width 5.5 -Total Square (Area) (cm) 6.60 -Tunneling No -Undermining/Tunneling No -Circular Undermining No -Wound/Ulcer Outcome Not Healed -Ulcer Cleansing Rinsed/ Irrigated with Saline -Foul Odor after Cleansing No -Bioengineered Tissue Yes -Type of Bioengineered Tissue Epifix Mesh -Expiration Date 03/16/29 -Product Lot Number [id number] -Percent Used 100 -Lot number of Saline Used [id number] -Bleeding Controlled with Pressure -Treatment Response Procedure Tolerated Well -Offloading Yes -Type of Offloading Surgical Shoe -Debridement - Subq, 1st 20sq cm No -Apply Skin Sub - 1st 25 sq cm - Feet 1 -Epifix Mesh (per sq cm) 11 Pain Scale: 0-10 Numeric Is Patient Pain Free? Yes WC - Nurse 3 - General Ulcer D/C NN Start: 09/17/24 10:13 Freq: Status: Active Protocol: Activity Type Activity Date Activity User E-sign Co-sign Detail Recorded Client Recorded Date Recorded By Document 09/17/24 10:54 ML [id number] 09/17/24 10:55 ML Document 09/24/24 11:03 DL [id number] 09/24/24 11:04 DL Document 10/01/24 09:49 CP [id number] 10/01/24 09:50 CP Document 10/08/24 09:16 JF [id number] 10/08/24 09:16 JF 09/17/24 09/24/24 10/01/24 10:54 11:03 09:49 Wound Care Center Nurse 3 4 LT LAT FOOT -Ulcer Cleansing Not Cleansed -Foul Odor after Cleansing No -Other Dressing abd, sascha from EPifix sascha wrap foot to knee -Primary Dressing Covered/Secured with Dry Gauze, Dry Gauze & Dry Gauze & Secured with Roll Gauze, Roll Gauze, Tape Secured with Secured with Tape Tape -Other Covering SASCHA LLE -Compression Wrap Treatment Response Procedure Tolerated Well Pain Scale: 0-10 Numeric Is Patient Pain Free? Yes Yes Yes WC - Visit Discharge Discharge Condition Stable Stable Ambulatory Status Wheelchair Wheelchair Transportation Private Auto Private Auto Medication Reconcilliation completed & provided to patient/care provider Clinical Summary of Care Provided Yes Facility Type [facility]er Care Half-Way Care Facility Facility Orders Sent Yes Yes 10/08/24 09:16 Wound Care Center Nurse 3 4 LT LAT FOOT -Ulcer Cleansing Rinsed/ Irrigated with Saline -Foul Odor after Cleansing No -Other Dressing abd pad and kerlix. ATB ointment to area where charred of metal was removed -Primary Dressing Covered/Secured with -Other Covering LLE -Compression Wrap Sascha Wrap Treatment Response Pain Scale: 0-10 Numeric Is Patient Pain Free? 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 All findings were discussed with the patient. All questions were answered to the patient's satisfaction. Excisional debridement down to and including subcutaneous tissue, fascia, tendonand bone of the left foot with a number 7 mm dermal curette without incident. Predebridement measurement was 1.0 x 5.0 x 0.1 cm. Postdebridement measurement is 1.2 x 5.5 x 0.1 cm. EpiFix mesh 4.0 x 4.5 cm was applied to the left full-thickness ulceration with 100% use. Eighth application. The graft site was free and clear of any infection. The wound/skin graft substitute was dressed with nonadherent bandagesecured in place with Steri-Strips followed by bolster dressing as well as a double layer Tubigrip. Topical anesthesia was applied to the foreign body and once anesthesia was confirmed using a #15 blade the metallic foreign body was removed measuring approximately 0.5 cm in length. Metallic foreignbody was discarded and sharps. Triple-lumen antibiotic was applied to the level of the foreign bodyand covered with a dry sterile dressing. Patient will continue to ambulate as tolerated in surgical shoe. He will continue strict blood sugar control. Follow-up at the wound care center with Dr. Barnett in 1 week. (2) Foreign body in left foot: CODE(S): S90.852A - Superficial foreign body, left foot, initial encounter 10/08/24 1004 Cosigner Signature (if applicable): CC: ~ Signed [facility]03-19-2025 Progress note Author Felipe Barnett [facility] Note Date/Time October 01, 2024 10: 53am [facility] [address] [place] [address] Progress Note - Wound Care 10/01/24 1051 MR#: [id number] Acct: [id number] Name: EMILEE ARAGON Rep #:[id number] : 1950 74 From: Felipe Hernandez PM PCP: Dr. Floyd Ricketts, DO Status:REG RCR Location: History of Present Illness Date of Service: 10/01/24 Chief Complaint: Left foot full-thickness wound History of Wound: Stable left foot wound with amniotic graft substitute. Progress of Wound: Stable full-thickness wound left foot no sign of infection. Subjective Subjective Mr. Aragon is a 74-year-old diabetic male presented wound care center today for follow-up evaluation of full-thickness wound and amniotic skin graft substitute to left lower extremity. Patient has left his graft and dressing clean dry and intact. His blood sugars well-controlled. Denies trauma. Or aggressive weightbearing. Denies constitutional symptoms. No other pedal complaints at this time. Objective Data Objective Data Vital Signs: Vital Signs Temp Pulse Resp BP O2 Del Method 97 F L 70 18 146/71 H Room Air 10/01/24 09:06 10/01/24 09:06 10/01/24 09:06 10/01/24 09:06 10/01/24 09:06 Oxygen Delivery Method Room Air Weight: 122.924 kg Body Mass Index (BMI) 35.7 Physical Exam Narrative Vascular: DP and PT pulses are faintly palpable to left extremity. CFT is brisk. No erythema. skin temp great is warm to warm from proximal ankles to distal digits to left lower extremity. Nonpitting edema appreciated left lower extremity. Neurological: Light touch intact. Protective station is absent. Dermatological: Full-thickness wound to the lateral left foot secondary to amputation measuring 1.2 x 7.0 x 0.1 cm wound base is granular. No drainage or sign of infection. No tunneling. No malodor. No probe to bone. Excisional debridement down to and including subcutaneous tissue, fascia, tendonand bone of the left foot with a number 7 mm dermal curette without incident. Predebridement measurement was 0.9 x 6.8 x 0.1 cm. Postdebridement measurement is 1.2 x 7.0 x 0.1 cm. EpiFix mesh 4.0 x 4.5 cm was applied to the left full-thickness ulceration with 100% use. Seventh application. The graft site was free and clear of any infection. The wound/skin graft substitute was dressed with nonadherent bandagesecured in place with Steri-Strips followed by bolster dressing as well as a double layer Tubigrip. Musculoskeletal: No pain on palpation to the full-thickness wound to the left foot. No pain with calf pressure. Debridement Note Debridement Note Debridement Free Text: Excisional debridement down to and including subcutaneoustissue, fascia, tendon and bone of the left foot with a number 7 mm dermal curette without incident. Predebridement measurement was 0.9 x 6.8 x 0.1 cm. Postdebridement measurement is 1.2 x 7.0 x 0.1 cm. EpiFix mesh 4.0 x 4.5 cm was applied to the left full-thickness ulceration with 100% use. Seventh application. The graft site was free and clear of any infection. The wound/skin graft substitute was dressed with nonadherent bandagesecured in place with Steri-Strips followed by bolster dressing as well as a double layer Tubigrip. Post-Debridement Measurements and Additional Note: Post-Debridement Measurements/Treatment - Nurse 1 - General Ulcer Assessment Start: 09/17/24 10:13 Freq: Status: Active Protocol: LANIE.[email or web address] Activity Type Activity Date Activity User E-sign Co-sign Detail Recorded Client Recorded Date Recorded By Document 09/17/24 10:14 KW [id number] 09/17/24 10:16 KW Document 09/24/24 10:33 GM [id number] 09/24/24 10:35 GM Document 10/01/24 09:00 MT [id number] 10/01/24 09:04 MT Document 10/01/24 09:06 MT [id number] 10/01/24 09:06 MT 09/17/24 09/24/24 10/01/24 10:14 10:33 09:00 - Today's Visit Information Type of service Initial Visit Follow-up Visit (Physician/COLOR PASTE MIXER ) Arrival Mode Wheelchair Ambulatory Transfer Assistance None Accompanied by Patient Identification Verified (Name & Yes Yes ) Safety Precautions Height and Weight Body Mass Index (BMI) 35.7 35.7 35.7 BMI Classification Obese Obese Obese Vital Signs Temperature (97.8 F-99.1 F) 97.1 F L 96.9 F L Temperature Source Temporal Temporal Pulse Rate (60-100) 83 70 Pulse Location Monitor Monitor Respiratory Rate (12-18) 18 16 Respiratory rate source Observation Observation Oxygen Delivery Method Room Air Room Air Blood Pressure (90/60-120/80) 165/87 H 163/76 H Blood Pressure Mean (mm Hg) 113 105 Source Monitor Monitor Position Semi-Fowlers Sitting Blood Pressure Location Left Arm Left Arm History Since Last Visit- (Skip if this is Patient's initial visit) Have you changed medications since your No No last visit? Any new allergies or adverse reactions No No Had a fall/change in ADL's that may No No increase risk of falls Signs or symptoms of abuse and/or No No neglect since last visit Have you been in the hospital since your No No last visit? Has dressing in place as prescribed Yes Yes Has compression in place as prescribed Yes Yes Has offloadiing in place as prescribed Yes Yes Experienced any changes in pain level or No No management Left Footwear No Footwear Right Footwear No Footwear Pain Scale: 0-10 Numeric Is Patient Pain Free? Yes Yes Yes 10/01/24 09:06 WC - Today's Visit Information Type of service Follow-up Visit (Physician/COLOR PASTE MIXER ) Arrival Mode Ambulatory, Wheelchair Transfer Assistance Accompanied by self Patient Identification Verified (Name & Yes ) Safety Precautions Fall Prevention Height and Weight Body Mass Index (BMI) 35.7 BMI Classification Obese Vital Signs Temperature (97.8 F-99.1 F) 97 F L Temperature Source Temporal Pulse Rate (60-100) 70 Pulse Location Monitor Respiratory Rate (12-18) 18 Respiratory rate source Observation Oxygen Delivery Method Room Air Blood Pressure (90/60-120/80) 146/71 H Blood Pressure Mean (mm Hg) 96 Source Monitor Position Sitting Blood Pressure Location Left Arm History Since Last Visit- (Skip if this is Patient's initial visit) Have you changed medications since your last visit? Any new allergies or adverse reactions Had a fall/change in ADL's that may increase risk of falls Signs or symptoms of abuse and/or neglect since last visit Have you been in the hospital since your last visit? Has dressing in place as prescribed Yes Has compression in place as prescribed Yes Has offloadiing in place as prescribed Yes Experienced any changes in pain level or Yes management Left Footwear No Footwear Right Footwear No Footwear Pain Scale: 0-10 Numeric Is Patient Pain Free? Yes - Nurse 1 - General Ulcer Measurement Start: 09/17/24 10:13 Freq: Status: Active Protocol: Activity Type Activity Date Activity User E-sign Co-sign Detail Recorded Client Recorded Date Recorded By Document 09/17/24 10:14 KW [id number] 09/17/24 10:16 KW Document 09/24/24 10:33 [id number] 09/24/24 10:35 GM Document 10/01/24 09:00 WY [id number] 10/01/24 09:04 WY 09/17/24 09/24/24 10/01/24 10:14 10:33 09:00 Wound Center Nurse 1 4 LT LAT FOOT -Current Size (cm) - Length 8.7 1.5 9 -Current Size (cm) - Width 1.2 8.0 1.5 -Current Size (cm) - Depth 0.2 0.1 0.2 -Total Square Cm 10.44 12.00 13.5 -Date of Last Picture (Recall this 09/17/24 09/24/24 field) -Photo Taken Yes -Epithelialization Small 1-33% -Tunneling No -Tunneling Position (O'clock) 12 -Tunneling Distance (cm) 0.5 -Undermining/Tunneling Yes No Yes -Undermining/Tunneling Starts (O'clock 9 9 ) -Undermining/Tunneling Ends (O'clock) 11 12 -Maximum Distance (cm) 0.5 0.3 -Circular Undermining No -Exudate Amt Medium Medium -Exudate Type Serosanguineous Serosanguineous Serosanguineous -Wound Margin Distinct, Distinct, Well Defined, Outline Outline Not Attached Attached Attached -Granulation Amt Large (67-100%) Medium (34-66%) Large (67-100%) -Granulation Quality [place] Red Pale,[place] -Slough/Fibrin Yes -Necrosis Amt Small (1-33%) Small (1-33%) Small (1-33%) -Necrotic Tissue Type Adherent Slough Adherent Slough -Texture (Maxine-wound Skin Appearance) Assessed Assessed Assessed -Moisture (Maxine-wound Skin Appearance) Assessed Assessed Assessed -Color (Maxine-wound Skin Appearance) Assessed Assessed Assessed -Temperature (Maxine-wound Skin No Abnormality No Abnormality No Abnormality Appearance) (Pt Warm) (Pt Warm) (Pt Warm) -Tenderness on Palpation (Maxine-wound No No No Skin Appearance) -Ulcer Cleansing Soap and Water Soap and Water Soap and Water -Foul Odor after Cleansing No No No -Anesthetic Used 4% Lidocaine 5% Lidocaine 4% Lidocaine Solution Gel Solution Lower Limb Edema Present No NA Left Calf (cm) 39.5 Left Ankle (cm) 24.4 WC - Nurse 2 - General Ulcer CM Notes Start: 09/17/24 10:13 Freq: Status: Active Protocol: Activity Type Activity Date Activity User E-sign Co-sign Detail Recorded Client Recorded Date Recorded By Document 09/17/24 10:32 [id number] 09/17/24 10:37 JF Document 09/24/24 10:46 [id number] 09/24/24 10:52 JF Document 10/01/24 09:21 JF [id number] 10/01/24 09:25 JF 09/17/24 09/24/24 10/01/24 10:32 10:46 09:21 Wound Center Nurse 2 4 LT LAT FOOT -Time 10:32 10:49 09:22 -Correct Patient Yes Yes Yes -Correct Side, Site, Position Yes Yes Yes -Correct Procedure Yes Yes Yes -Procedure Performed Yes Yes Yes -Type of Procedure Debridement Debridement Debridement -Clinical Debridement Subcutaneous Subcutaneous Subcutaneous -Tissue Removed Subcutaneous Subcutaneous Subcutaneous -Post Debridement (cm) - Length 1.4 1.1 1.2 -Post Debridement (cm) - Width 9 8.2 7 -Post Debridement (cm) - Depth 0.1 0.1 0.1 -Total Square (Post) (cm) 12.6 9.02 8.4 -Area of Debridement (cm) - Length 1.4 1.1 1.2 -Area of Debridement (cm) - Width 9 8.2 7 -Total Square (Area) (cm) 12.6 9.02 8.4 -Tunneling No No No -Undermining/Tunneling No No No -Circular Undermining No No No -Wound/Ulcer Outcome Not Healed Not Healed Not Healed -Ulcer Cleansing Rinsed/ Rinsed/ Rinsed/ Irrigated with Irrigated with Irrigated with Saline Saline Saline -Foul Odor after Cleansing No No No -Bioengineered Tissue Yes Yes Yes -Type of Bioengineered Tissue Epifix Mesh Epifix Mesh Epifix Mesh -Expiration Date 02/13/29 03/16/29 03/16/29 -Product Lot Number [id number] -Percent Used 100 100 100 -Lot number of Saline Used [id number] -Bleeding Controlled with Pressure Pressure Pressure -Treatment Response Procedure Procedure Procedure Tolerated Well Tolerated Well Tolerated Well -Offloading Yes Yes Yes -Type of Offloading Surgical Shoe Surgical Shoe Surgical Shoe -Debridement - Subq, 1st 20sq cm No No No -Apply Skin Sub - 1st 25 sq cm - Feet 1 1 1 -Epifix Mesh (per sq cm) 11 11 11 Pain Scale: 0-10 Numeric Is Patient Pain Free? Yes Yes Yes - Nurse 3 - General Ulcer D/C NN Start: 09/17/24 10:13 Freq: Status: Active Protocol: Activity Type Activity Date Activity User E-sign Co-sign Detail Recorded Client Recorded Date Recorded By Document 09/17/24 10:54 ML [id number] 09/17/24 10:55 ML Document 09/24/24 11:03 DL [id number] 09/24/24 11:04 DL Document 10/01/24 09:49 CP [id number] 10/01/24 09:50 CP 09/17/24 09/24/24 10/01/24 10:54 11:03 09:49 Wound Care Center Nurse 3 4 LT LAT FOOT -Ulcer Cleansing Not Cleansed -Foul Odor after Cleansing No -Other Dressing abd, sascha from EPifix sascha wrap foot to knee -Primary Dressing Covered/Secured with Dry Gauze, Dry Gauze & Dry Gauze & Secured with Roll Gauze, Roll Gauze, Tape Secured with Secured with Tape Tape -Other Covering SASCHA Treatment Response Procedure Tolerated Well Pain Scale: 0-10 Numeric Is Patient Pain Free? Yes Yes Yes WC - Visit Discharge Discharge Condition Stable Stable Ambulatory Status Wheelchair Wheelchair Transportation Private Auto Private Auto Clinical Summary of Care Provided Yes Facility Type Half-Way Care Half-Way Care Facility Facility Orders Sent Yes Yes Assessment/Plan Assessment/Plan (1) Non-pressure chronic ulcer of other part of left foot with bone involvement without evidence of necrosis: CODE(S): L97.526 - Non-pressure chronic ulcer of other part of left foot with bone involvement without evidence of necrosis PLAN: Patient was examined and evaluated. All findings were discussed with the patient. All questions were answered to the patient's satisfaction. Excisional debridement down to and including subcutaneous tissue, fascia, tendonand bone of the left foot with a number 7 mm dermal curette without incident. Predebridement measurement was 0.9 x 6.8 x 0.1 cm. Postdebridement measurement is 1.2 x 7.0 x 0.1 cm. EpiFix mesh 4.0 x 4.5 cm was applied to the left full-thickness ulceration with 100% use. Seventh application. The graft site was free and clear of any infection. The wound/skin graft substitute was dressed with nonadherent bandagesecured in place with Steri-Strips followed by bolster dressing as well as a double layer Tubigrip. Patient will continue to ambulate as tolerated in surgical shoe. He will continue strict blood sugar control. Follow-up at the wound care center with Dr. Barnett in 1 week. 10/01/24 1053 <Electronically signed by Felipe Barnett DPEfraín> Cosigner Signature (if applicable): CC: ~ Signed [facility] Work Phone: [phone] Progress note [facility] [address] [place] [address] Progress Note - Wound Care 10/01/24 1051 MR#: [id number] Acct: [id number] Name: EMILEE ARAGON Rep #:[id number] : 1950 74 From: Felipe Hernandez PM PCP: Dr. Floyd Ricketts, DO Status:REG RCR Location: History of Present Illness Date of Service: 10/01/24 Chief Complaint: Left foot full-thickness wound History of Wound: Stable left foot wound with amniotic graft substitute. Progress of Wound: Stable full-thickness wound left foot no sign of infection. Subjective Subjective Mr. Aragon is a 74-year-old diabetic male presented wound care center today for follow-up evaluation of full-thickness wound and amniotic skin graft substitute to left lower extremity. Patient has left his graft and dressing clean dry and intact. His blood sugars well-controlled. Denies trauma. Or aggressive weightbearing. Denies constitutional symptoms. No other pedal complaints at this time. Objective Data Objective Data Vital Signs: Vital Signs Temp Pulse Resp BP O2 Del Method 97 F L 70 18 146/71 H Room Air 10/01/24 09:06 10/01/24 09:06 10/01/24 09:06 10/01/24 09:06 10/01/24 09:06 Oxygen Delivery Method Room Air Weight: 122.924 kg Body Mass Index (BMI) 35.7 Physical Exam Narrative Vascular: DP and PT pulses are faintly palpable to left extremity. CFT is brisk. No erythema. skin temp great is warm to warm from proximal ankles to distal digits to left lower extremity. Nonpittingedema appreciated left lower extremity. Neurological: Light touch intact. Protective station is absent. Dermatological: Full-thickness wound to the lateral left foot secondary to amputation measuring 1.2x 7.0 x 0.1 cm wound base is granular. No drainage or sign of infection. No tunneling. No malodor. No probe to bone. Excisional debridement down to and including subcutaneous tissue, fascia, tendonand bone of the left foot with a number 7 mm dermal curette without incident. Predebridement measurement was 0.9 x 6.8 x 0.1 cm. Postdebridement measurement is 1.2 x 7.0 x 0.1 cm. EpiFix mesh 4.0 x 4.5 cm was applied to the left full-thickness ulceration with 100% use. Seventh application. The graft site was free and clear of any infection. The wound/skin graft substitute was dressed with nonadherent bandagesecured in place with Steri-Strips followed by bolster dressing as well as a double layer Tubigrip. Musculoskeletal: No pain on palpation to the full-thickness wound to the left foot. No pain with calf pressure. Debridement Note Debridement Note Debridement Free Text: Excisional debridement down to and including subcutaneoustissue, fascia, tendon and bone of the left foot with a number 7 mm dermal curette without incident. Predebridement measurement was 0.9 x 6.8 x 0.1 cm. Postdebridement measurement is 1.2 x 7.0 x 0.1 cm. EpiFix mesh 4.0 x 4.5 cm was applied to the left full-thickness ulceration with 100% use. Seventh application. The graft site was free and clear of any infection. The wound/skin graft substitute was dressed with nonadherent bandagesecured in place with Steri-Strips followed by bolster dressing as well as a double layer Tubigrip. Post-Debridement Measurements and Additional Note: Post-Debridement Measurements/Treatment LANIE - Nurse 1 - General Ulcer Assessment Start: 09/17/24 10:13 Freq: Status: Active Protocol: LOWEXT Activity Type Activity Date Activity User E-sign Co-sign Detail Recorded Client Recorded Date Recorded By Document 09/17/24 10:14 KW [id number] 09/17/24 10:16 KW Document 09/24/24 10:33 [id number] 09/24/24 10:35 GM Document 10/01/24 09:00 MT [id number] 10/01/24 09:04 MT Document 10/01/24 09:06 MT [id number] 10/01/24 09:06 WY 09/17/24 09/24/24 10/01/24 10:14 10:33 09:00 - Today's Visit Information Type of service Initial Visit Follow-up Visit (Physician/COLOR PASTE MIXER ) Arrival Mode Wheelchair Ambulatory Transfer Assistance None Accompanied by Patient Identification Verified (Name & Yes Yes ) Safety Precautions Height and Weight Body Mass Index (BMI) 35.7 35.7 35.7 BMI Classification Obese Obese Obese Vital Signs Temperature (97.8 F-99.1 F) 97.1 F L 96.9 F L Temperature Source Temporal Temporal Pulse Rate (60-100) 83 70 Pulse Location Monitor Monitor Respiratory Rate (12-18) 18 16 Respiratory rate source Observation Observation Oxygen Delivery Method Room Air Room Air Blood Pressure (90/60-120/80) 165/87 H 163/76 H Blood Pressure Mean (mm Hg) 113 105 Source Monitor Monitor Position Semi-Fowlers Sitting Blood Pressure Location Left Arm Left Arm History Since Last Visit- (Skip if this is Patient's initial visit) Have you changed medications since your No No last visit? Any new allergies or adverse reactions No No Had a fall/change in ADL's that may No No increase risk of falls Signs or symptoms of abuse and/or No No neglect since last visit Have you been in the hospital since your No No last visit? Has dressing in place as prescribed Yes Yes Has compression in place as prescribed Yes Yes Has offloadiing in place as prescribed Yes Yes Experienced any changes in pain level or No No management Left Footwear No Footwear Right Footwear No Footwear Pain Scale: 0-10 Numeric Is Patient Pain Free? Yes Yes Yes 10/01/24 09:06 - Today's Visit Information Type of service Follow-up Visit (Physician/COLOR PASTE MIXER ) Arrival Mode Ambulatory, Wheelchair Transfer Assistance Accompanied by self Patient Identification Verified (Name & Yes ) Safety Precautions Fall Prevention Height and Weight Body Mass Index (BMI) 35.7 BMI Classification Obese Vital Signs Temperature (97.8 F-99.1 F) 97 F L Temperature Source Temporal Pulse Rate (60-100) 70 Pulse Location Monitor Respiratory Rate (12-18) 18 Respiratory rate source Observation Oxygen Delivery Method Room Air Blood Pressure (90/60-120/80) 146/71 H Blood Pressure Mean (mm Hg) 96 Source Monitor Position Sitting Blood Pressure Location Left Arm History Since Last Visit- (Skip if this is Patient's initial visit) Have you changed medications since your last visit? Any new allergies or adverse reactions Had a fall/change in ADL's that may increase risk of falls Signs or symptoms of abuse and/or neglect since last visit Have you been in the hospital since your last visit? Has dressing in place as prescribed Yes Has compression in place as prescribed Yes Has offloadiing in place as prescribed Yes Experienced any changes in pain level or Yes management Left Footwear No Footwear Right Footwear No Footwear Pain Scale: 0-10 Numeric Is Patient Pain Free? Yes WC - Nurse 1 - General Ulcer Measurement Start: 09/17/24 10:13 Freq: Status: Active Protocol: Activity Type Activity Date Activity User E-sign Co-sign Detail Recorded Client Recorded Date Recorded By Document 09/17/24 10:14 KW [id number] 09/17/24 10:16 KW Document 09/24/24 10:33 [id number] 09/24/24 10:35 Document 10/01/24 09:00 MT [id number] 10/01/24 09:04 WY 09/17/24 09/24/24 10/01/24 10:14 10:33 09:00 Wound Center Nurse 1 4 LT LAT FOOT -Current Size (cm) - Length 8.7 1.5 9 -Current Size (cm) - Width 1.2 8.0 1.5 -Current Size (cm) - Depth 0.2 0.1 0.2 -Total Square Cm 10.44 12.00 13.5 -Date of Last Picture (Recall this 09/17/24 09/24/24 field) -Photo Taken Yes -Epithelialization Small 1-33% -Tunneling No -Tunneling Position (O'clock) 12 -Tunneling Distance (cm) 0.5 -Undermining/Tunneling Yes No Yes -Undermining/Tunneling Starts (O'clock 9 9 ) -Undermining/Tunneling Ends (O'clock) 11 12 -Maximum Distance (cm) 0.5 0.3 -Circular Undermining No -Exudate Amt Medium Medium -Exudate Type Serosanguineous Serosanguineous Serosanguineous -Wound Margin Distinct, Distinct, Well Defined, Outline Outline Not Attached Attached Attached -Granulation Amt Large (67-100%) Medium (34-66%) Large (67-100%) -Granulation Quality [place] Red Pale,[place] -Slough/Fibrin Yes -Necrosis Amt Small (1-33%) Small (1-33%) Small (1-33%) -Necrotic Tissue Type Adherent Slough Adherent Slough -Texture (Maxine-wound Skin Appearance) Assessed Assessed Assessed -Moisture (Maxine-wound Skin Appearance) Assessed Assessed Assessed -Color (Maxine-wound Skin Appearance) Assessed Assessed Assessed -Temperature (Maxine-wound Skin No Abnormality No Abnormality No Abnormality Appearance) (Pt Warm) (Pt Warm) (Pt Warm) -Tenderness on Palpation (Maxine-wound No No No Skin Appearance) -Ulcer Cleansing Soap and Water Soap and Water Soap and Water -Foul Odor after Cleansing No No No -Anesthetic Used 4% Lidocaine 5% Lidocaine 4% Lidocaine Solution Gel Solution Lower Limb Edema Present No NA Left Calf (cm) 39.5 Left Ankle (cm) 24.4 WC - Nurse 2 - General Ulcer CM Notes Start: 09/17/24 10:13 Freq: Status: Active Protocol: Activity Type Activity Date Activity User E-sign Co-sign Detail Recorded Client Recorded Date Recorded By Document 09/17/24 10:32 [id number] 09/17/24 10:37 Document 09/24/24 10:46 [id number] 09/24/24 10:52 Document 10/01/24 09:21 [id number] 10/01/24 09:25 09/17/24 09/24/24 10/01/24 10:32 10:46 09:21 Wound Center Nurse 2 4 LT LAT FOOT -Time 10:32 10:49 09:22 -Correct Patient Yes Yes Yes -Correct Side, Site, Position Yes Yes Yes -Correct Procedure Yes Yes Yes -Procedure Performed Yes Yes Yes -Type of Procedure Debridement Debridement Debridement -Clinical Debridement Subcutaneous Subcutaneous Subcutaneous -Tissue Removed Subcutaneous Subcutaneous Subcutaneous -Post Debridement (cm) - Length 1.4 1.1 1.2 -Post Debridement (cm) - Width 9 8.2 7 -Post Debridement (cm) - Depth 0.1 0.1 0.1 -Total Square (Post) (cm) 12.6 9.02 8.4 -Area of Debridement (cm) - Length 1.4 1.1 1.2 -Area of Debridement (cm) - Width 9 8.2 7 -Total Square (Area) (cm) 12.6 9.02 8.4 -Tunneling No No No -Undermining/Tunneling No No No -Circular Undermining No No No -Wound/Ulcer Outcome Not Healed Not Healed Not Healed -Ulcer Cleansing Rinsed/ Rinsed/ Rinsed/ Irrigated with Irrigated with Irrigated with Saline Saline Saline -Foul Odor after Cleansing No No No -Bioengineered Tissue Yes Yes Yes -Type of Bioengineered Tissue Epifix Mesh Epifix Mesh Epifix Mesh -Expiration Date 02/13/29 03/16/29 03/16/29 -Product Lot Number [id number] -Percent Used 100 100 100 -Lot number of Saline Used [id number] -Bleeding Controlled with Pressure Pressure Pressure -Treatment Response Procedure Procedure Procedure Tolerated Well Tolerated Well Tolerated Well -Offloading Yes Yes Yes -Type of Offloading Surgical Shoe Surgical Shoe Surgical Shoe -Debridement - Subq, 1st 20sq cm No No No -Apply Skin Sub - 1st 25 sq cm - Feet 1 1 1 -Epifix Mesh (per sq cm) 11 11 11 Pain Scale: 0-10 Numeric Is Patient Pain Free? Yes Yes Yes WC - Nurse 3 - General Ulcer D/C NN Start: 09/17/24 10:13 Freq: Status: Active Protocol: Activity Type Activity Date Activity User E-sign Co-sign Detail Recorded Client Recorded Date Recorded By Document 09/17/24 10:54 ML [id number] 09/17/24 10:55 ML Document 09/24/24 11:03 DL [id number] 09/24/24 11:04 DL Document 10/01/24 09:49 CP [id number] 10/01/24 09:50 CP 03/12/0709/24/24 10/01/24 10:54 11:03 09:49 Wound Care Center Nurse 3 4 LT LAT FOOT -Ulcer Cleansing Not Cleansed -Foul Odor after Cleansing No -Other Dressing abd, sascha from EPifix sascha wrap foot to knee -Primary Dressing Covered/Secured with Dry Gauze, Dry Gauze & Dry Gauze & Secured with Roll Gauze, Roll Gauze, Tape Secured with Secured with Tape Tape -Other Covering SASCHA Treatment Response Procedure Tolerated Well Pain Scale: 0-10 Numeric Is Patient Pain Free? 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 All findings were discussed with the patient. All questions were answered to the patient's satisfaction. Excisional debridement down to and including subcutaneous tissue, fascia, tendonand bone of the left foot with a number 7 mm dermal curette without incident. Predebridement measurement was 0.9 x 6.8 x 0.1 cm. Postdebridement measurement is 1.2 x 7.0 x 0.1 cm. EpiFix mesh 4.0 x 4.5 cm was applied to the left full-thickness ulceration with 100% use. Seventh application. The graft site was free and clear of any infection. The wound/skin graft substitute was dressed with nonadherent bandagesecured in place with Steri-Strips followed by bolster dressing as well as a double layer Tubigrip. Patient will continue to ambulate as tolerated in surgical shoe. He will continue strict blood sugar control. Follow-up at the wound care center with Dr. Barnett in 1 week. 10/01/24 1053 Cosigner Signature (if applicable): CC: ~ Signed [facility]03-12-2025 Progress note Author Felipe Barnett [facility] Note Date/Time September 24, 2024 1:1 1pm [facility] [address] [place] [address] Progress Note - Wound Care 09/24/24 1310 MR#: [id number] Acct: [id number] Name: EMILEE ARAGON Rep #:[id number] : 1950 74 From: Felipe TRUONG PCP: Dr. Floyd Ricketts, DO Status:REG RCR Location: History of Present Illness Date of Service: 09/17/24 Chief Complaint: Left foot full-thickness wound History of Wound: Stable left foot wound with amniotic graft substitute. Progress of Wound: Stable full-thickness wound left foot no sign of infection. Subjective Subjective Mr. Aragon is a 74-year-old diabetic male presenting to wound care center today for follow-up evaluation of full-thickness wound to left foot. He has left the dressing clean dry and intact. His blood sugar is hovering around 90 mg/dL. Hedenies any pain to left foot. He has been ambulatory as tolerated with needed. Denies constitutional symptoms. No other pedal complaints at this time. Objective Data Objective Data Vital Signs: Vital Signs Temp Pulse Resp BP O2 Del Method 96.9 F L 70 16 163/76 H Room Air 09/24/24 10:33 09/24/24 10:33 09/24/24 10:33 09/24/24 10:33 09/24/24 10:33 Oxygen Delivery Method Room Air Weight: 122.924 kg Body Mass Index (BMI) 35.7 Physical Exam Narrative Vascular: DP and PT pulses are faintly palpable to left extremity. CFT is brisk. No erythema. skin temp great is warm to warm from proximal ankles to distal digits to left lower extremity. Nonpitting edema appreciated left lower extremity. Neurological: Light touch intact. Protective station is absent. Dermatological: Full-thickness wound to the lateral left foot secondary to amputation measuring 1.1 x 8.2 x 0.1 cm. Wound base is granular. No drainage or sign of infection. No tunneling. No malodor. No probe to bone. Excisional debridement down to and including subcutaneous tissue, fascia, tendonand bone of the left foot with a number 7 mm dermal curette without incident. Predebridement measurement was 0.8 x 8.0 x 0.1 cm. Postdebridement measurement is 1.1 x 8.2 x 0.1 cm. EpiFix mesh 4.0 x 4.5 cm was applied to the left full-thickness ulceration with 100% use. Sixth application. The graft site was free and clear of any infection. The wound/skin graft substitute was dressed with nonadherent bandagesecured in place with Steri-Strips followed by bolster dressing as well as a double layer Tubigrip. Musculoskeletal: No pain on palpation to the full-thickness wound to the left foot. No pain with calf pressure. Debridement Note Debridement Note Debridement Free Text: Excisional debridement down to and including subcutaneoustissue, fascia, tendon and bone of the left foot with a number 7 mm dermal curette without incident. Predebridement measurement was 0.8 x 8.0 x 0.1 cm. Postdebridement measurement is 1.1 x 8.2 x 0.1 cm. EpiFix mesh 4.0 x 4.5 cm was applied to the left full-thickness ulceration with 100% use. Sixth application. The graft site was free and clear of any infection. The wound/skin graft substitute was dressed with nonadherent bandage secured in place with Steri-Strips followed by bolster dressing as well as a double layer Tubigrip. Post-Debridement Measurements and Additional Note: Post-Debridement Measurements/Treatment - Nurse 1 - General Ulcer Assessment Start: 09/17/24 10:13 Freq: Status: Active Protocol: WC.LOWEXT Activity Type Activity Date Activity User E-sign Co-sign Detail Recorded Client Recorded Date Recorded By Document 09/17/24 10:14 [id number] 09/17/24 10:16 KW Document 09/24/24 10:33 [id number] 09/24/24 10:35 09/17/24 09/24/24 10:14 10:33 - Today's Visit Information Type of service Initial Visit Follow-up Visit (Physician/COLOR PASTE MIXER ) Arrival Mode Wheelchair Ambulatory Transfer Assistance None Patient Identification Verified (Name & Yes Yes ) Height and Weight Body Mass Index (BMI) 35.7 35.7 BMI Classification Obese Obese Vital Signs Temperature (97.8 F-99.1 F) 97.1 F L 96.9 F L Temperature Source Temporal Temporal Pulse Rate (60-100) 83 70 Pulse Location Monitor Monitor Respiratory Rate (12-18) 18 16 Respiratory rate source Observation Observation Oxygen Delivery Method Room Air Room Air Blood Pressure (90/60-120/80) 165/87 H 163/76 H Blood Pressure Mean (mm Hg) 113 105 Source Monitor Monitor Position Semi-Fowlers Sitting Blood Pressure Location Left Arm Left Arm History Since Last Visit- (Skip if this is Patient's initial visit) Have you changed medications since your No No last visit? Any new allergies or adverse reactions No No Had a fall/change in ADL's that may No No increase risk of falls Signs or symptoms of abuse and/or No No neglect since last visit Have you been in the hospital since your No No last visit? Has dressing in place as prescribed Yes Yes Has compression in place as prescribed Yes Yes Has offloadiing in place as prescribed Yes Yes Experienced any changes in pain level or No No management Left Footwear No Footwear Right Footwear No Footwear Pain Scale: 0-10 Numeric Is Patient Pain Free? Yes Yes WC - Nurse 1 - General Ulcer Measurement Start: 09/17/24 10:13 Freq: Status: Active Protocol: Activity Type Activity Date Activity User E-sign Co-sign Detail Recorded Client Recorded Date Recorded By Document 09/17/24 10:14 KW [id number] 09/17/24 10:16 KW Document 09/24/24 10:33 [id number] 09/24/24 10:35 09/17/24 09/24/24 10:14 10:33 Wound Center Nurse 1 4 LT LAT FOOT -Current Size (cm) - Length 8.7 1.5 -Current Size (cm) - Width 1.2 8.0 -Current Size (cm) - Depth 0.2 0.1 -Total Square Cm 10.44 12.00 -Date of Last Picture (Recall this 09/17/24 09/24/24 field) -Photo Taken Yes -Epithelialization Small 1-33% -Tunneling No -Undermining/Tunneling Yes No -Undermining/Tunneling Starts (O'clock 9 ) -Undermining/Tunneling Ends (O'clock) 11 -Maximum Distance (cm) 0.5 -Circular Undermining No -Exudate Amt Medium -Exudate Type Serosanguineous Serosanguineous -Wound Margin Distinct, Distinct, Outline Outline Attached Attached -Granulation Amt Large (67-100%) Medium (34-66%) -Granulation Quality [place] Red -Slough/Fibrin Yes -Necrosis Amt Small (1-33%) Small (1-33%) -Necrotic Tissue Type Adherent Slough -Texture (Maxine-wound Skin Appearance) Assessed Assessed -Moisture (Maxine-wound Skin Appearance) Assessed Assessed -Color (Maxine-wound Skin Appearance) Assessed Assessed -Temperature (Maxine-wound Skin No Abnormality No Abnormality Appearance) (Pt Warm) (Pt Warm) -Tenderness on Palpation (Maxine-wound No No Skin Appearance) -Ulcer Cleansing Soap and Water Soap and Water -Foul Odor after Cleansing No No -Anesthetic Used 4% Lidocaine 5% Lidocaine Solution Gel Lower Limb Edema Present No Left Calf (cm) 39.5 Left Ankle (cm) 24.4 WC - Nurse 2 - General Ulcer CM Notes Start: 09/17/24 10:13 Freq: Status: Active Protocol: Activity Type Activity Date Activity User E-sign Co-sign Detail Recorded Client Recorded Date Recorded By Document 09/17/24 10:32 [id number] 09/17/24 10:37 Document 09/24/24 10:46 [id number] 09/24/24 10:52 09/17/24 09/24/24 10:32 10:46 Wound Center Nurse 2 4 LT LAT FOOT -Time 10:32 10:49 -Correct Patient Yes Yes -Correct Side, Site, Position Yes Yes -Correct Procedure Yes Yes -Procedure Performed Yes Yes -Type of Procedure Debridement Debridement -Clinical Debridement Subcutaneous Subcutaneous -Tissue Removed Subcutaneous Subcutaneous -Post Debridement (cm) - Length 1.4 1.1 -Post Debridement (cm) - Width 9 8.2 -Post Debridement (cm) - Depth 0.1 0.1 -Total Square (Post) (cm) 12.6 9.02 -Area of Debridement (cm) - Length 1.4 1.1 -Area of Debridement (cm) - Width 9 8.2 -Total Square (Area) (cm) 12.6 9.02 -Tunneling No No -Undermining/Tunneling No No -Circular Undermining No No -Wound/Ulcer Outcome Not Healed Not Healed -Ulcer Cleansing Rinsed/ Rinsed/ Irrigated with Irrigated with Saline Saline -Foul Odor after Cleansing No No -Bioengineered Tissue Yes Yes -Type of Bioengineered Tissue Epifix Mesh Epifix Mesh -Expiration Date 02/13/29 03/16/29 -Product Lot Number [id number] -Percent Used 100 100 -Lot number of Saline Used [id number] -Bleeding Controlled with Pressure Pressure -Treatment Response Procedure Procedure Tolerated Well Tolerated Well -Offloading Yes Yes -Type of Offloading Surgical Shoe Surgical Shoe -Debridement - Subq, 1st 20sq cm No No -Apply Skin Sub - 1st 25 sq cm - Feet 1 1 -Epifix Mesh (per sq cm) 11 11 Pain Scale: 0-10 Numeric Is Patient Pain Free? Yes Yes - Nurse 3 - General Ulcer D/C NN Start: 09/17/24 10:13 Freq: Status: Active Protocol: Activity Type Activity Date Activity User E-sign Co-sign Detail Recorded Client Recorded Date Recorded By Document 09/17/24 10:54 ML [id number] 09/17/24 10:55 ML Document 09/24/24 11:03 DL [id number] 09/24/24 11:04 DL 09/17/24 09/24/24 10:54 11:03 Wound Care Center Nurse 3 4 LT LAT FOOT -Ulcer Cleansing Not Cleansed -Foul Odor after Cleansing No -Other Dressing abd, sascha from EPifix foot to knee -Primary Dressing Covered/Secured with Dry Gauze, Dry Gauze & Secured with Roll Gauze, Tape Secured with Tape -Other Covering SASCHA Treatment Response Procedure Tolerated Well Pain Scale: 0-10 Numeric Is Patient Pain Free? Yes Yes - Visit Discharge Discharge Condition Stable Ambulatory Status Wheelchair Transportation Private Auto Facility Type [facility] Facility Orders Sent Yes Assessment/Plan Assessment/Plan (1) Non-pressure chronic ulcer of other part of left foot with bone involvement without evidence of necrosis: CODE(S): L97.526 - Non-pressure chronic ulcer of other part of left foot with bone involvement without evidence of necrosis PLAN: Patient was examined and evaluated. All findings were discussed with the patient. All questions were answered to the patient's satisfaction. Excisional debridement down to and including subcutaneous tissue, fascia, tendonand bone of the left foot with a number 7 mm dermal curette without incident. Predebridement measurement was 0.8 x 8.0 x 0.1 cm. Postdebridement measurement is 1.1 x 8.2 x 0.1 cm. EpiFix mesh 4.0 x 4.5 cm was applied to the left full-thickness ulceration with 100% use. Sixth application. The graft site was free and clear of any infection. The wound/skin graft substitute was dressed with nonadherent bandagesecured in place with Steri-Strips followed by bolster dressing as well as a double layer Tubigrip. Patient will continue to ambulate as tolerated in surgical shoe. He will continue strict blood sugar control. Follow-up at the wound care center with Dr. Barnett in 1 week. 09/24/24 1311 <Electronically signed by Felipe Barnett DPM> Cosigner Signature (if applicable): CC: ~ Signed [facility] Work Phone: [phone] 270-840003-12-2025 Progress note [facility] [address] [place] [address] Progress Note - Wound Care 09/24/24 1310 MR#: [id number] Acct: [id number] Name: EMILEE ARAGON Rep #:[id number] : 1950 74 From: Felipe Hernandez PM PCP: Dr. Floyd Ricketts, DO Status:REG RCR Location: History of Present Illness Date of Service: 09/17/24 Chief Complaint: Left foot full-thickness wound History of Wound: Stable left foot wound with amniotic graft substitute. Progress of Wound: Stable full-thickness wound left foot no sign of infection. Subjective Subjective Mr. Aragon is a 74-year-old diabetic male presenting to wound care center today for follow-up evaluation of full-thickness wound to left foot. He has left the dressing clean dry and intact. His bloodsugar is hovering around 90 mg/dL. Hedenies any pain to left foot. He has been ambulatory as tolerated with needed. Denies constitutional symptoms. No other pedal complaints at this time. Objective Data Objective Data Vital Signs: Vital Signs Temp Pulse Resp BP O2 Del Method 96.9 F L 70 16 163/76 H Room Air 09/24/24 10:33 09/24/24 10:33 09/24/24 10:33 09/24/24 10:33 09/24/24 10:33 Oxygen Delivery Method Room Air Weight: 122.924 kg Body Mass Index (BMI) 35.7 Physical Exam Narrative Vascular: DP and PT pulses are faintly palpable to left extremity. CFT is brisk. No erythema. skin temp great is warm to warm from proximal ankles to distal digits to left lower extremity. Nonpittingedema appreciated left lower extremity. Neurological: Light touch intact. Protective station is absent. Dermatological: Full-thickness wound to the lateral left foot secondary to amputation measuring 1.1x 8.2 x 0.1 cm. Wound base is granular. No drainage or sign of infection. No tunneling. No malodor.No probe to bone. Excisional debridement down to and including subcutaneous tissue, fascia, tendonand bone of the left foot with a number 7 mm dermal curette without incident. Predebridement measurement was 0.8 x 8.0 x 0.1 cm. Postdebridement measurement is 1.1 x 8.2 x 0.1 cm. EpiFix mesh 4.0 x 4.5 cm was applied to the left full-thickness ulceration with 100% use. Sixth application. The graft site was free and clear of any infection. The wound/skin graft substitute was dressed with nonadherent bandagesecured in place with Steri-Strips followed by bolster dressing as well as a double layer Tubigrip. Musculoskeletal: No pain on palpation to the full-thickness wound to the left foot. No pain with calf pressure. Debridement Note Debridement Note Debridement Free Text: Excisional debridement down to and including subcutaneoustissue, fascia, tendon and bone of the left foot with a number 7 mm dermal curette without incident. Predebridement measurement was 0.8 x 8.0 x 0.1 cm. Postdebridement measurement is 1.1 x 8.2 x 0.1 cm. EpiFix mesh 4.0 x 4.5 cm was applied to the left full-thickness ulceration with 100% use. Sixth application. The graft site was free and clear of any infection. The wound/skin graft substitute was dressed with nonadherent bandage secured in place with Steri-Strips followed by bolster dressing as well as a double layer Tubigrip. 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 ) Arrival Mode Wheelchair Ambulatory Transfer Assistance None Patient Identification Verified (Name & Yes Yes ) Height and Weight Body Mass Index (BMI) 35.7 35.7 BMI Classification Obese Obese Vital Signs Temperature (97.8 F-99.1 F) 97.1 F L 96.9 F L Temperature Source Temporal Temporal Pulse Rate (60-100) 83 70 Pulse Location Monitor Monitor Respiratory Rate (12-18) 18 16 Respiratory rate source Observation Observation Oxygen Delivery Method Room Air Room Air Blood Pressure (90/60-120/80) 165/87 H 163/76 H Blood Pressure Mean (mm Hg) 113 105 Source Monitor Monitor Position Semi-Fowlers Sitting Blood Pressure Location Left Arm Left Arm History Since Last Visit- (Skip if this is Patient's initial visit) Have you changed medications since your No No last visit? Any new allergies or adverse reactions No No Had a fall/change in ADL's that may No No increase risk of falls Signs or symptoms of abuse and/or No No neglect since last visit Have you been in the hospital since your No No last visit? Has dressing in place as prescribed Yes Yes Has compression in place as prescribed Yes Yes Has offloadiing in place as prescribed Yes Yes Experienced any changes in pain level or No No management Left Footwear No Footwear Right Footwear No Footwear Pain Scale: 0-10 Numeric Is Patient Pain Free? Yes Yes - Nurse 1 - General Ulcer Measurement Start: 09/17/24 10:13 Freq: Status: Active Protocol: Activity Type Activity Date Activity User E-sign Co-sign Detail Recorded Client Recorded Date Recorded By Document 09/17/24 10:14 KW [id number] 09/17/24 10:16 KW Document 09/24/24 10:33 [id number] 09/24/24 10:35 GM 09/17/24 09/24/24 10:14 10:33 Wound Center Nurse 1 4 LT LAT FOOT -Current Size (cm) - Length 8.7 1.5 -Current Size (cm) - Width 1.2 8.0 -Current Size (cm) - Depth 0.2 0.1 -Total Square Cm 10.44 12.00 -Date of Last Picture (Recall this 09/17/24 09/24/24 field) -Photo Taken Yes -Epithelialization Small 1-33% -Tunneling No -Undermining/Tunneling Yes No -Undermining/Tunneling Starts (O'clock 9 ) -Undermining/Tunneling Ends (O'clock) 11 -Maximum Distance (cm) 0.5 -Circular Undermining No -Exudate Amt Medium -Exudate Type Serosanguineous Serosanguineous -Wound Margin Distinct, Distinct, Outline Outline Attached Attached -Granulation Amt Large (67-100%) Medium (34-66%) -Granulation Quality [place] Red -Slough/Fibrin Yes -Necrosis Amt Small (1-33%) Small (1-33%) -Necrotic Tissue Type Adherent Slough -Texture (Maxine-wound Skin Appearance) Assessed Assessed -Moisture (Maxine-wound Skin Appearance) Assessed Assessed -Color (Maxine-wound Skin Appearance) Assessed Assessed -Temperature (Maxine-wound Skin No Abnormality No Abnormality Appearance) (Pt Warm) (Pt Warm) -Tenderness on Palpation (Maxine-wound No No Skin Appearance) -Ulcer Cleansing Soap and Water Soap and Water -Foul Odor after Cleansing No No -Anesthetic Used 4% Lidocaine 5% Lidocaine Solution Gel Lower Limb Edema Present No Left Calf (cm) 39.5 Left Ankle (cm) 24.4 WC - Nurse 2 - General Ulcer CM Notes Start: 09/17/24 10:13 Freq: Status: Active Protocol: Activity Type Activity Date Activity User E-sign Co-sign Detail Recorded Client Recorded Date Recorded By Document 09/17/24 10:32 [id number] 09/17/24 10:37 JF Document 09/24/24 10:46 [email or web address] [id number] 09/24/24 10:52 JF 09/17/24 09/24/24 10:32 10:46 Wound Center Nurse 2 4 LT LAT FOOT -Time 10:32 10:49 -Correct Patient Yes Yes -Correct Side, Site, Position Yes Yes -Correct Procedure Yes Yes -Procedure Performed Yes Yes -Type of Procedure Debridement Debridement -Clinical Debridement Subcutaneous Subcutaneous -Tissue Removed Subcutaneous Subcutaneous -Post Debridement (cm) - Length 1.4 1.1 -Post Debridement (cm) - Width 9 8.2 -Post Debridement (cm) - Depth 0.1 0.1 -Total Square (Post) (cm) 12.6 9.02 -Area of Debridement (cm) - Length 1.4 1.1 -Area of Debridement (cm) - Width 9 8.2 -Total Square (Area) (cm) 12.6 9.02 -Tunneling No No -Undermining/Tunneling No No -Circular Undermining No No -Wound/Ulcer Outcome Not Healed Not Healed -Ulcer Cleansing Rinsed/ Rinsed/ Irrigated with Irrigated with Saline Saline -Foul Odor after Cleansing No No -Bioengineered Tissue Yes Yes -Type of Bioengineered Tissue Epifix Mesh Epifix Mesh -Expiration Date 02/13/29 03/16/29 -Product Lot Number [id number] -Percent Used 100 100 -Lot number of Saline Used [id number] -Bleeding Controlled with Pressure Pressure -Treatment Response Procedure Procedure Tolerated Well Tolerated Well -Offloading Yes Yes -Type of Offloading Surgical Shoe Surgical Shoe -Debridement - Subq, 1st 20sq cm No No -Apply Skin Sub - 1st 25 sq cm - Feet 1 1 -Epifix Mesh (per sq cm) 11 11 Pain Scale: 0-10 Numeric Is Patient Pain Free? Yes Yes WC - Nurse 3 - General Ulcer D/C NN Start: 09/17/24 10:13 Freq: Status: Active Protocol: Activity Type Activity Date Activity User E-sign Co-sign Detail Recorded Client Recorded Date Recorded By Document 09/17/24 10:54 ML [id number] 09/17/24 10:55 ML Document 09/24/24 11:03 DL [id number] 09/24/24 11:04 DL 09/17/24 09/24/24 10:54 11:03 Wound Care Center Nurse 3 4 LT LAT FOOT -Ulcer Cleansing Not Cleansed -Foul Odor after Cleansing No -Other Dressing abd, sascha from EPifix foot to knee -Primary Dressing Covered/Secured with Dry Gauze, Dry Gauze & Secured with Roll Gauze, Tape Secured with Tape -Other Covering SASCHA Treatment Response Procedure Tolerated Well Pain Scale: 0-10 Numeric Is Patient Pain Free? 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 All findings were discussed with the patient. All questions were answered to the patient's satisfaction. Excisional debridement down to and including subcutaneous tissue, fascia, tendonand bone of the left foot with a number 7 mm dermal curette without incident. Predebridement measurement was 0.8 x 8.0 x 0.1 cm. Postdebridement measurement is 1.1 x 8.2 x 0.1 cm. EpiFix mesh 4.0 x 4.5 cm was applied to the left full-thickness ulceration with 100% use. Sixth application. The graft site was free and clear of any infection. The wound/skin graft substitute was dressed with nonadherent bandagesecured in place with Steri-Strips followed by bolster dressing as well as a double layer Tubigrip. Patient will continue to ambulate as tolerated in surgical shoe. He will continue strict blood sugar control. Follow-up at the wound care center with Dr. Barnett in 1 week. 09/24/24 1311 Cosigner Signature (if applicable): CC: ~ Signed [facility]03-05-2025 Progress note Author Felipe Barnett [facility] Note Date/Time September 17, 2024 10:0 4am [facility] [address] [place] [address] Progress Note - Wound Care 09/17/24 1100 MR#: [id number] Acct: [id number] Name: EMILEE ARAGON Rep #:[id number] : 1950 74 From: Felipe Hernandez PM PCP: Dr. Floyd Ricketts, DO Status:REG RCR Location: History of Present Illness Date of Service: 09/17/24 Chief Complaint: Left foot full-thickness wound History of Wound: Stable left foot wound with amniotic graft substitute. Progress of Wound: Stable full-thickness wound left foot no sign of infection. Subjective Subjective Mr. Aragon is a 74-year-old diabetic male presenting to wound care center today for follow-up evaluation of full-thickness wound to left foot. He has left the dressing clean dry and intact. His blood sugar is hovering around 90 mg/dL. Hedenies any pain to left foot. He has been ambulatory as tolerated with needed. Denies constitutional symptoms. No other pedal complaints at this time. Objective Data Objective Data Vital Signs: Vital Signs Temp Pulse Resp BP O2 Del Method 97.1 F L 83 18 165/87 H Room Air 09/17/24 10:14 09/17/24 10:14 09/17/24 10:14 09/17/24 10:14 09/17/24 10:14 Oxygen Delivery Method Room Air Weight: 122.924 kg Body Mass Index (BMI) 35.7 Physical Exam Narrative Vascular: DP and PT pulses are faintly palpable to left extremity. CFT is brisk. No erythema. skin temp great is warm to warm from proximal ankles to distal digits to left lower extremity. Nonpitting edema appreciated left lower extremity. Neurological: Light touch intact. Protective station is absent. Dermatological: Full-thickness wound to the lateral left foot secondary to amputation measuring 9.0 x 1.4 x 0.1 cm. Wound base is granular. No drainage or sign of infection. No tunneling. No malodor. No probe to bone. Excisional debridement down to and including subcutaneous tissue, fascia, tendonand bone of the left foot with a number 7 mm dermal curette without incident. Predebridement measurement was 8.7 x 1.2 x 0.1 cm. Postdebridement measurement is 9.0 x 1.4 x 0.1 cm. EpiFix mesh 4.0 x 4.5 cm was applied to the left full-thickness ulceration with 100% use. Fifth application. The graft site was free and clear of any infection. The wound/skin graft substitute was dressed with nonadherent bandagesecured in place with Steri-Strips followed by bolster dressing as well as a double layer Tubigrip. Musculoskeletal: No pain on palpation to the full-thickness wound to the left foot. No pain with calf pressure. Debridement Note Debridement Note Debridement Free Text: Excisional debridement down to and including subcutaneoustissue, fascia, tendon and bone of the left foot with a number 7 mm dermal curette without incident. Predebridement measurement was 8.7 x 1.2 x 0.1 cm. Postdebridement measurement is 9.0 x 1.4 x 0.1 cm. EpiFix mesh 4.0 x 4.5 cm was applied to the left full-thickness ulceration with 100% use. Fifth application. The graft site was free and clear of any infection. The wound/skin graft substitute was dressed with nonadherent bandage secured in place with Steri-Strips followed by bolster dressing as well as a double layer Tubigrip. Post-Debridement Measurements and Additional Note: Post-Debridement Measurements/Treatment - Nurse 1 - General Ulcer Assessment Start: 09/17/24 10:13 Freq: Status: Active Protocol: FIDENCIO Activity Type Activity Date Activity User E-sign Co-sign Detail Recorded Client Recorded Date Recorded By Document 09/17/24 10:14 KW [id number] 09/17/24 10:16 KW 09/17/24 10:14 - Today's Visit Information Type of service Initial Visit Arrival Mode Wheelchair Patient Identification Verified (Name & Yes ) Height and Weight Body Mass Index (BMI) 35.7 BMI Classification Obese Vital Signs Temperature (97.8 F-99.1 F) 97.1 F L Temperature Source Temporal Pulse Rate (60-100) 83 Pulse Location Monitor Respiratory Rate (12-18) 18 Respiratory rate source Observation Oxygen Delivery Method Room Air Blood Pressure (90/60-120/80) 165/87 H Blood Pressure Mean (mm Hg) 113 Source Monitor Position Semi-Fowlers Blood Pressure Location Left Arm History Since Last Visit- (Skip if this is Patient's initial visit) Have you changed medications since your No last visit? Any new allergies or adverse reactions No Had a fall/change in ADL's that may No increase risk of falls Signs or symptoms of abuse and/or No neglect since last visit Have you been in the hospital since your No last visit? Has dressing in place as prescribed Yes Has compression in place as prescribed Yes Has offloadiing in place as prescribed Yes Experienced any changes in pain level or No management Left Footwear No Footwear Right Footwear No Footwear Pain Scale: 0-10 Numeric Is Patient Pain Free? Yes - Nurse 1 - General Ulcer Measurement Start: 09/17/24 10:13 Freq: Status: Active Protocol: Activity Type Activity Date Activity User E-sign Co-sign Detail Recorded Client Recorded Date Recorded By Document 09/17/24 10:14 ELINA [id number] 09/17/24 10:16 ELINA 09/17/24 10:14 Wound Center Nurse 1 4 LT LAT FOOT -Current Size (cm) - Length 8.7 -Current Size (cm) - Width 1.2 -Current Size (cm) - Depth 0.2 -Total Square Cm 10.44 -Date of Last Picture (Recall this 09/17/24 field) -Undermining/Tunneling Yes -Undermining/Tunneling Starts (O'clock 9 ) -Undermining/Tunneling Ends (O'clock) 11 -Maximum Distance (cm) 0.5 -Exudate Type Serosanguineous -Wound Margin Distinct, Outline Attached -Granulation Amt Large (67-100%) -Granulation Quality [place] -Necrosis Amt Small (1-33%) -Necrotic Tissue Type Adherent Slough -Texture (Maxine-wound Skin Appearance) Assessed -Moisture (Maxine-wound Skin Appearance) Assessed -Color (Maxine-wound Skin Appearance) Assessed -Temperature (Maxine-wound Skin No Abnormality Appearance) (Pt Warm) -Tenderness on Palpation (Maxine-wound No Skin Appearance) -Ulcer Cleansing Soap and Water -Foul Odor after Cleansing No -Anesthetic Used 4% Lidocaine Solution - Nurse 2 - General Ulcer CM Notes Start: 09/17/24 10:13 Freq: Status: Active Protocol: Activity Type Activity Date Activity User E-sign Co-sign Detail Recorded Client Recorded Date Recorded By Document 09/17/24 10:32 AISHWARYA [id number] 09/17/24 10:37 AISHWARYA 09/17/24 10:32 Wound Center Nurse 2 -Time 10:32 -Correct Patient Yes -Correct Side, Site, Position Yes -Correct Procedure Yes -Procedure Performed Yes -Type of Procedure Debridement -Clinical Debridement Subcutaneous -Tissue Removed Subcutaneous -Post Debridement (cm) - Length 1.4 -Post Debridement (cm) - Width 9 -Post Debridement (cm) - Depth 0.1 -Total Square (Post) (cm) 12.6 -Area of Debridement (cm) - Length 1.4 -Area of Debridement (cm) - Width 9 -Total Square (Area) (cm) 12.6 -Tunneling No -Undermining/Tunneling No -Circular Undermining No -Wound/Ulcer Outcome Not Healed -Ulcer Cleansing Rinsed/ Irrigated with Saline -Foul Odor after Cleansing No -Bioengineered Tissue Yes -Type of Bioengineered Tissue Epifix Mesh -Expiration Date 02/13/29 -Product Lot Number [id number] -Percent Used 100 -Lot number of Saline Used [id number] -Bleeding Controlled with Pressure -Treatment Response Procedure Tolerated Well -Offloading Yes -Type of Offloading Surgical Shoe -Debridement - Subq, 1st 20sq cm No -Apply Skin Sub - 1st 25 sq cm - Feet 1 -Epifix Mesh (per sq cm) 11 Pain Scale: 0-10 Numeric Is Patient Pain Free? Yes WC - Nurse 3 - General Ulcer D/C NN Start: 09/17/24 10:13 Freq: Status: Active Protocol: Activity Type Activity Date Activity User E-sign Co-sign Detail Recorded Client Recorded Date Recorded By Document 09/17/24 10:54 ML [id number] 09/17/24 10:55 ML 09/17/24 10:54 Wound Care Center Nurse 3 4 LT LAT FOOT -Other Dressing abd, sascha from foot to knee -Primary Dressing Covered/Secured with Dry Gauze, Secured with Tape Pain Scale: 0-10 Numeric Is Patient Pain Free? Yes Assessment/Plan Assessment/Plan (1) Non-pressure chronic ulcer of other part of left foot with bone involvement without evidence of necrosis: CODE(S): L97.526 - Non-pressure chronic ulcer of other part of left foot with bone involvement without evidence of necrosis PLAN: Patient was examined and evaluated. All findings were discussed with the patient. All questions were answered to the patient's satisfaction. Excisional debridement down to and including subcutaneous tissue, fascia, tendonand bone of the left foot with a number 7 mm dermal curette without incident. Predebridement measurement was 8.7 x 1.2 x 0.1 cm. Postdebridement measurement is 9.0 x 1.4 x 0.1 cm. EpiFix mesh 4.0 x 4.5 cm was applied to the left full-thickness ulceration with 100% use. Fifth application. The graft site was free and clear of any infection. The wound/skin graft substitute was dressed with nonadherent bandagesecured in place with Steri-Strips followed by bolster dressing as well as a double layer Tubigrip. Patient will continue to ambulate as tolerated in surgical shoe. He will continue strict blood sugar control. Follow-up at the wound care center with Dr. Barnett in 1 week. 09/17/24 1104 <Electronically signed by Felipe Barnett DPM> Cosigner Signature (if applicable): CC: ~ Signed [facility] Work Phone: 1(213) 242-920803-05-2025 Progress note [facility] [address] [place] [address] Progress Note - Wound Care 09/17/24 1100 MR#: [id number] Acct: [id number] Name: EMILEE ARAGON Rep #:[id number] : 1950 74 From: Felipe TRUONG PCP: Dr. Floyd Ricketts, DO Status:REG RCR Location: History of Present Illness Date of Service: 09/17/24 Chief Complaint: Left foot full-thickness wound History of Wound: Stable left foot wound with amniotic graft substitute. Progress of Wound: Stable full-thickness wound left foot no sign of infection. Subjective Subjective Mr. Aragon is a 74-year-old diabetic male presenting to wound care center today for follow-up evaluation of full-thickness wound to left foot. He has left the dressing clean dry and intact. His bloodsugar is hovering around 90 mg/dL. Hedenies any pain to left foot. He has been ambulatory as tolerated with needed. Denies constitutional symptoms. No other pedal complaints at this time. Objective Data Objective Data Vital Signs: Vital Signs Temp Pulse Resp BP O2 Del Method 97.1 F L 83 18 165/87 H Room Air 09/17/24 10:14 09/17/24 10:14 09/17/24 10:14 09/17/24 10:14 09/17/24 10:14 Oxygen Delivery Method Room Air Weight: 122.924 kg Body Mass Index (BMI) 35.7 Physical Exam Narrative Vascular: DP and PT pulses are faintly palpable to left extremity. CFT is brisk. No erythema. skin temp great is warm to warm from proximal ankles to distal digits to left lower extremity. Nonpittingedema appreciated left lower extremity. Neurological: Light touch intact. Protective station is absent. Dermatological: Full-thickness wound to the lateral left foot secondary to amputation measuring 9.0x 1.4 x 0.1 cm. Wound base is granular. No drainage or sign of infection. No tunneling. No malodor.No probe to bone. Excisional debridement down to and including subcutaneous tissue, fascia, tendonand bone of the left foot with a number 7 mm dermal curette without incident. Predebridement measurement was 8.7 x 1.2 x 0.1 cm. Postdebridement measurement is 9.0 x 1.4 x 0.1 cm. EpiFix mesh 4.0 x 4.5 cm was applied to the left full-thickness ulceration with 100% use. Fifth application. The graft site was free and clear of any infection. The wound/skin graft substitute was dressed with nonadherent bandagesecured in place with Steri-Strips followed by bolster dressing as well as a double layer Tubigrip. Musculoskeletal: No pain on palpation to the full-thickness wound to the left foot. No pain with calf pressure. Debridement Note Debridement Note Debridement Free Text: Excisional debridement down to and including subcutaneoustissue, fascia, tendon and bone of the left foot with a number 7 mm dermal curette without incident. Predebridement measurement was 8.7 x 1.2 x 0.1 cm. Postdebridement measurement is 9.0 x 1.4 x 0.1 cm. EpiFix mesh 4.0 x 4.5 cm was applied to the left full-thickness ulceration with 100% use. Fifth application. The graft site was free and clear of any infection. The wound/skin graft substitute was dressed with nonadherent bandage secured in place with Steri-Strips followed by bolster dressing as well as a double layer Tubigrip. Post-Debridement Measurements and Additional Note: Post-Debridement Measurements/Treatment LANIE - Nurse 1 - General Ulcer Assessment Start: 09/17/24 10:13 Freq: Status: Active Protocol: FIDENCIO Activity Type Activity Date Activity User E-sign Co-sign Detail Recorded Client Recorded Date Recorded By Document 09/17/24 10:14 KW [id number] 09/17/24 10:16 KW 09/17/24 10:14 WC - Today's Visit Information Type of service Initial Visit Arrival Mode Wheelchair Patient Identification Verified (Name & Yes ) Height and Weight Body Mass Index (BMI) 35.7 BMI Classification Obese Vital Signs Temperature (97.8 F-99.1 F) 97.1 F L Temperature Source Temporal Pulse Rate (60-100) 83 Pulse Location Monitor Respiratory Rate (12-18) 18 Respiratory rate source Observation Oxygen Delivery Method Room Air Blood Pressure (90/60-120/80) 165/87 H Blood Pressure Mean (mm Hg) 113 Source Monitor Position Semi-Fowlers Blood Pressure Location Left Arm History Since Last Visit- (Skip if this is Patient's initial visit) Have you changed medications since your No last visit? Any new allergies or adverse reactions No Had a fall/change in ADL's that may No increase risk of falls Signs or symptoms of abuse and/or No neglect since last visit Have you been in the hospital since your No last visit? Has dressing in place as prescribed Yes Has compression in place as prescribed Yes Has offloadiing in place as prescribed Yes Experienced any changes in pain level or No management Left Footwear No Footwear Right Footwear No Footwear Pain Scale: 0-10 Numeric Is Patient Pain Free? Yes - Nurse 1 - General Ulcer Measurement Start: 09/17/24 10:13 Freq: Status: Active Protocol: Activity Type Activity Date Activity User E-sign Co-sign Detail Recorded Client Recorded Date Recorded By Document 09/17/24 10:14 ELINA [id number] 09/17/24 10:16 KW 09/17/24 10:14 Wound Center Nurse 1 4 LT LAT FOOT -Current Size (cm) - Length 8.7 -Current Size (cm) - Width 1.2 -Current Size (cm) - Depth 0.2 -Total Square Cm 10.44 -Date of Last Picture (Recall this 09/17/24 field) -Undermining/Tunneling Yes -Undermining/Tunneling Starts (O'clock 9 ) -Undermining/Tunneling Ends (O'clock) 11 -Maximum Distance (cm) 0.5 -Exudate Type Serosanguineous -Wound Margin Distinct, Outline Attached -Granulation Amt Large (67-100%) -Granulation Quality [place] -Necrosis Amt Small (1-33%) -Necrotic Tissue Type Adherent Slough -Texture (Maxine-wound Skin Appearance) Assessed -Moisture (Maxine-wound Skin Appearance) Assessed -Color (Maxine-wound Skin Appearance) Assessed -Temperature (Maxine-wound Skin No Abnormality Appearance) (Pt Warm) -Tenderness on Palpation (Maxine-wound No Skin Appearance) -Ulcer Cleansing Soap and Water -Foul Odor after Cleansing No -Anesthetic Used 4% Lidocaine Solution WC - Nurse 2 - General Ulcer CM Notes Start: 09/17/24 10:13 Freq: Status: Active Protocol: Activity Type Activity Date Activity User E-sign Co-sign Detail Recorded Client Recorded Date Recorded By Document 09/17/24 10:32 AISHWARYA [id number] 09/17/24 10:37 AISHWARYA 09/17/24 10:32 Wound Center Nurse 2 -Time 10:32 -Correct Patient Yes -Correct Side, Site, Position Yes -Correct Procedure Yes -Procedure Performed Yes -Type of Procedure Debridement -Clinical Debridement Subcutaneous -Tissue Removed Subcutaneous -Post Debridement (cm) - Length 1.4 -Post Debridement (cm) - Width 9 -Post Debridement (cm) - Depth 0.1 -Total Square (Post) (cm) 12.6 -Area of Debridement (cm) - Length 1.4 -Area of Debridement (cm) - Width 9 -Total Square (Area) (cm) 12.6 -Tunneling No -Undermining/Tunneling No -Circular Undermining No -Wound/Ulcer Outcome Not Healed -Ulcer Cleansing Rinsed/ Irrigated with Saline -Foul Odor after Cleansing No -Bioengineered Tissue Yes -Type of Bioengineered Tissue Epifix Mesh -Expiration Date 02/13/29 -Product Lot Number [id number] -Percent Used 100 -Lot number of Saline Used [id number] -Bleeding Controlled with Pressure -Treatment Response Procedure Tolerated Well -Offloading Yes -Type of Offloading Surgical Shoe -Debridement - Subq, 1st 20sq cm No -Apply Skin Sub - 1st 25 sq cm - Feet 1 -Epifix Mesh (per sq cm) 11 Pain Scale: 0-10 Numeric Is Patient Pain Free? Yes WC - Nurse 3 - General Ulcer D/C NN Start: 09/17/24 10:13 Freq: Status: Active Protocol: Activity Type Activity Date Activity User E-sign Co-sign Detail Recorded Client Recorded Date Recorded By Document 09/17/24 10:54 ML [id number] 09/17/24 10:55 ML 09/17/24 10:54 Wound Care Center Nurse 3 4 LT LAT FOOT -Other Dressing abd, sascha from foot to knee -Primary Dressing Covered/Secured with Dry Gauze, Secured with Tape Pain Scale: 0-10 Numeric Is Patient Pain Free? Yes Assessment/Plan Assessment/Plan (1) Non-pressure chronic ulcer of other part of left foot with bone involvement without evidence ofnecrosis: CODE(S): L97.526 - Non-pressure chronic ulcer of other part of left foot with bone involvement without evidence of necrosis PLAN: Patient was examined and evaluated. All findings were discussed with the patient. All questions were answered to the patient's satisfaction. Excisional debridement down to and including subcutaneous tissue, fascia, tendonand bone of the left foot with a number 7 mm dermal curette without incident. Predebridement measurement was 8.7 x 1.2 x 0.1 cm. Postdebridement measurement is 9.0 x 1.4 x 0.1 cm. EpiFix mesh 4.0 x 4.5 cm was applied to the left full-thickness ulceration with 100% use. Fifth application. The graft site was free and clear of any infection. The wound/skin graft substitute was dressed with nonadherent bandagesecured in place with Steri-Strips followed by bolster dressing as well as a double layer Tubigrip. Patient will continue to ambulate as tolerated in surgical shoe. He will continue strict blood sugar control. Follow-up at the wound care center with Dr. Barnett in 1 week. 09/17/24 1104 Cosigner Signature (if applicable): CC: ~ Signed [facility]02-26-2025 Evaluation note* Diagnosis Onset Date Resolution Status Admit Date Other specified peripheral vascular diseases acute September 10, 2024 8:30am Ulcer of left foot due to type 2 diabetes mellitus acute [id number] 8:30am Non-pressure chronic ulcer o f other part of left foot with bone involvement chronic September 10, 2024 8:30am Foreign body in left foot acute October 08, 2024 8:45am Non-pressure chronic ulcer o f other part of left foot with bone involvement chronic October 08 8:45am Cutaneous abscess of left foot acute November 05, 2024 9:45am 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 November 05 9:45am 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 November 19, 2024 8:17am [facility] Work Phone: 1(762) 825-889101-29-2025 Evaluation note* Diagnosis Onset Date Resolution Status Admit Date Acute painful diabetic polyneuropathy acute August 13 8:45am Other specified peripheral vascular diseases acute August 13, 2024 8:45am Ulcer of left foot due to ty pe 2 diabetes mellitus acute July 8:45am Non-pressure chronic ulcer o f other part of left foot with bone involvement chronic August 13 8:45am Other specified peripheral vascular diseases acute September 10, 2024 8:30am Ulcer of left foot due to ty pe 2 diabetes mellitus acute August 8:30am Non-pressure chronic ulcer o f other part of left foot with bone involvement chronic September 10, 2024 8:30am Foreign body in left foot acute October 08, 2024 8:45am Non-pressure chronic ulcer o f other part of left foot with bone involvement chronic October 08 8:45am Cutaneous abscess of left foot acute November 05, 2024 9:45am 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 November 05 9:45am 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 November 19, 2024 8:17am [facility] Work Phone: 1(409) 678-762312-05-2024 [facility] Medical Records Department [address] [place] [address] Discharge Summary 06/19/24 1449 MR#: [id number] Acct: [id number] Name: EMILEE ARAGON Rep #: [id number] : 1950 74 From: Floyd Shah DO PCP: Dr. Floyd Ricketts DO Status:DIS IN Location: [facility] [id number] Providers Date of Admission: 06/10/24 Date of Discharge: 06/19/24 Primary Care Physician: Dr. Floyd Ricketts, DO Consultations 06/10/24 10:39 Consult: Infectious Disease Routine Consulting Provider: Kyle Rowland Reason for Consult: gangrene left foot EMERGENT Consult: No Notified: Yes Date Notified: 06/10/24 Time Notified: 09:55 Method of Notification: Verbal Consult: Podiatry Routine Consulting Provider: Sylvain Ruiz Reason for Consult: gangreme left foot EMERGENT Consult: No MD Notified: Yes Date Notified: 06/10/24 Time Notified: 09:55 Method of Notification: Verbal 06/11/24 12:40 Consult: Vascular Surgery Routine Consulting Provider: Tyson Kunz Reason for Consult: Ulcer, PAD EMERGENT Consult: No MD Notified: Yes Date Notified: 06/11/24 Time Notified: 12:40 Method of Notification: Text 06/13/24 11:27 Consult: Onc/Wound/retoucher Routine Comment: Reason for Consult:: left foot wound Reason For Visit: GANGREENE OF LEFT FOOT Diagnosis Discharge Diagnosis (1) Gangrene, not elsewhere classified: Status: Acute Code(s): I96 - Gangrene, not elsewhere classified (2) Acute osteomyelitis of left foot: Status: Acute Code(s): M86.172 - Other acute osteomyelitis, left ankle and foot (3) Atherosclerosis of [place] arteries of extremities with gangrene, left leg: Status: Acute Code(s): I70.262 - Atherosclerosis of [place] arteries of extremities with gangrene, left leg Plan 1. Gangrene left foot-secondary to peripheral vascular disease from type 2 diabetes poorly controlled-patient remains on IV antibiotics at this time per infectious diseases, patient underwent an angiogram and intervention which improved blood flow to the left foot #2 type 2 flilzlgk-vegnlzucvtur-frwvibj will have fingerstick blood sugars monitored and sliding scale insulin will be used as indicated #3 peripheral vascular disease-again according to podiatry, patient has significant peripheral vascular disease and will see vascular surgery during his hospital stay. #4 hyperlipidemia-patient is on a statin #5 hypothyroidism-patient is on Synthroid #6 essential hypertension-patient will remain on his outpatient medications and they will be adjusted as needed #7 class III obesity-complicates care, management, recovery, and prognosis Total clinical time spent by myself addressing patient's medical issues, reviewing all of his data, and collaborating with patient's care team: 35-minute Medications at Discharge Home Medications ascorbic acid (vitamin C) 500 mg capsule 500 mg PO DAILY supplement 09/26/17 blood sugar diagnostic (OneTouch Verio test strips) #100 ea 03/18/20 aspirin 81 mg chewable tablet 81 mg PO DAILY@0800 blood thinner 04/18/21 atorvastatin 20 mg tablet 20 mg PO QHS Cholesterol 04/18/21 clopidogrel 75 mg tablet 75 mg PO DAILY blood thinner 04/18/21 geriatric tpenvpwt-rwrf-ytrp 1 tab PO DAILY supplement 04/18/21 insulin NPH isoph U-100 human 100 unit/mL subcutaneous suspension (Novolin N NPH U-100 Insulin isophane) 40 unit subcut BID blood glucose 04/18/21 levothyroxine 125 mcg tablet 125 mcg PO DAILY thyroid 04/18/21 lisinopril 10 mg tablet 10 mg PO DAILY BP 04/18/21 metformin 1,000 mg tablet 1,000 mg PO BID blood glucose 04/18/21 pen needle, diabetic 29 gauge x 1/2 06/11/24 ampicillin-sulbactam 3 gram solution for injection 3 g IV Q8 41 days #123 ea 06/18/24 oxycodone 5 mg tablet 5 mg PO Q4H PRN PRN Pain Score 4-10 2 days #12 tabs 06/19/24 Hospital Course Operations - (Left foot debridement of ulceration down to and including bone; left lower extremity aortogram with atherectomy) Procedures PICC line placement Summary of Care Provided Minutes Spent on Discharge: 32 Hospital Course: This 74-year-old white male was seen in the emergency room at [facility] with complaints of a wound on the lateral aspect of his left foot for an unknown length of time. Workup in the emergency room showed the patient's white blood cell count to be elevated, x-ray of the left foot revealed an ulcer near the fifth metatarsal phalangeal joint with suspected osteomyelitis of the head of the fifth metatarsal bone and the base of the fifth proximal phalanx. Patient was seen in the emergency room by podiatry who recommended admission under medicine and recommend the patient go to surgery that day. Patient was placed on IV Cipro and IV Flagyl, he was admitted to PCU after the surgery was completed and seen by infectious diseases. 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 10, 2024 9:44am Acidosis, lactic inactive June 10, 2024 9:44am Acute osteomyelitis of left foot inactive June 10 9:44am Diabetic ulcer of left foot inactive June 10, 2024 9:44am Gangrene, not elsewhere classified inactive June 10 9:44am Type 2 diabetes mellitus wit h diabetic polyneuropathy inactive June 10, 2024 9:44am Acute painful diabetic polyneuropathy acute July 15 8:15am Other specified peripheral vascular diseases acute July 15, 2024 8:15am Non-pressure chronic ulcer o f other part of left foot with bone involvement chronic July 15, 2024 8:15am Acute painful diabetic polyneuropathy acute August 13 8:45am Other specified peripheral vascular diseases acute August 13, 2024 8:45am Ulcer of left foot due to ty pe 2 diabetes mellitus acute July 8:45am Non-pressure chronic ulcer o f other part of left foot with bone involvement chronic August 13 8:45am Other specified peripheral vascular diseases acute September 10, 2024 8:30am Ulcer of left foot due to ty pe 2 diabetes mellitus acute August 8:30am Non-pressure chronic ulcer o f other part of left foot with bone involvement chronic September 10, 2024 8:30am Foreign body in left foot acute October 08, 2024 8:45am Non-pressure chronic ulcer o f other part of left foot with bone involvement chronic October 08 8:45am [facility] Work Phone: 1(743) 640-844311-26-2024 [facility] Medical Records Department [address] [place] [address] Consultation 06/10/24 0932 MR#: [id number] Acct: [id number] Name: EMILEE ARAGON Rep #: [id number] : 1950 74 From: Sylvain Ruiz DPM PCP: Dr. Floyd Ricketts, Status:REG ER Location: ED Assessment Plan Assessment/Plan (1) Diabetic ulcer of left foot: (2) Acute osteomyelitis of left foot: (3) Type 2 diabetes mellitus with foot ulcer: (4) Other specified peripheral vascular diseases: (5) Type 2 diabetes mellitus with diabetic polyneuropathy: QUALIFIERS: Diabetes mellitus terminal worker insulin use: with terminal worker use Qualified Code(s): E11.42 - Type 2 diabetes mellitus with diabetic polyneuropathy; Z79.4 - correction (current) use of insulin (6) Gangrene, not elsewhere classified: PLAN: Plan Evaluation performed. Reviewed diagnostic data. Given findings we discussed OR left foot debridement of all nonviable, infected and necrotic soft tissue and bone with left 5th ray amputation. He agreed. We will add on for today, he is going to be admitted, and also on IV antibiotic therapy. Noninvasive lower extremity arterial studies will be ordered. Discussed with Dr. Cazares and Dr. Shah. Thank you for consultation. HPI Consult Data Date of Consult: 06/10/24 HPI Narrative Reason for Consultation: Left foot infection HPI Narrative: EMILEE ARAGON, is a 74 M who presents with necrotic oderous ulceration left foot. He relates he has developed an ulcer, he has diabetes with neuropathy with minimal feeling in feet. 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 He also has history of peripheral vascular disease. He presented to ER today due to worsening of left foot ulceration, appears infected. Left foot xrays show destructive changes to 5th metatarsal, WBC is elevated. Plans are for him to be admitted. I was consulted from the emergency room. [facility] Medical History Wears glasses Bladder disease High cholesterol Easy bruising Former smoker Neuropathy History of edema Leg cramps Family history of stent PAD (peripheral artery disease) HTN (hypertension) Hypothyroid Diabetes mellitus Home Medications ???Medication ???Instructions ???Recorded ???Last Taken ???Type ascorbic acid (vitamin C) 500 mg 500 mg PO DAILY supplement 09/26/17 07/21/20 08:00 History capsule pen needle, diabetic 29 gauge x ##1 03/12/20 Unknown Rx 1/2 blood sugar diagnostic (OneTouch #100 ea 03/18/20 Unknown Rx Verio test strips) potassium 99 mg tablet 99 mg PO BID supplement 06/12/20 06/12/20 History aspirin 81 mg chewable tablet 81 mg PO DAILY@0800 blood thinner 04/18/21 Unknown History atorvastatin 20 mg tablet 20 mg PO QHS Cholesterol 04/18/21 Unknown History clopidogrel 75 mg tablet 75 mg PO DAILY blood thinner 04/18/21 Unknown History geriatric [id number] 1 tab PO DAILY 04/18/21 Unknown History insulin NPH isoph U-100 human 100 50 unit subcut BID blood glucose 04/18/21 Unknown History unit/mL subcutaneous suspension (Novolin N NPH U-100 Insulin isophane) insulin regular human 100 unit/mL 35 unit subcut BID blood glucose 04/18/21 Unknown History injection solution (Novolin R Regular U-100 Insulin) levothyroxine 125 mcg tablet 125 mcg PO DAILY thyroid 04/18/21 Unknown History lisinopril 10 mg tablet 10 mg PO DAILY BP 04/18/21 Unknown History metformin 1,000 mg tablet 1,000 mg PO BID blood glucose 04/18/21 Unknown History Allergy/AdvReac Type Severity Reaction Status Date / Time No Known Allergies Allergy Verified 06/10/24 06:49 Family History Father Diabetes Heart disease Hypertension Surgical History History of amputation of toe History of transurethral destruction of bladder lesion S/P tonsillectomy S/P colonoscopy Social History Smoking Status: Former smoker Physical Exam Const alert, oriented x3 and no apparent distress Constitutional Narrative: Left foot with large necrotic wet ulceration down to bone with significant maloder lateral foot at level of 5th ray, there is edema, erythema, and drainage consistent with infection. CFT < 2 seconds to toes bilateral, no open lesions right foot. Significant decreased sensation to left foot c/w his hx of peripheral neuropathy, there is no POP or pain on ROM to foot. Lab / Micro Data 06/10/24 07:00 06/10/24 07:00 Labs: Laboratory Results - last 24 hr 06/10/24 07:00: WBC 17.5 H, RBC 4.62, Hgb 13.3, Hct 41.2, MCV 89.2, MCH 28.8, MCHC 32.3, RDW Std Deviation 45.4 H, RDW Coeff of Nyla 14.0, Plt Count 541 H, MPV 8.6, Immature Gran % (Auto) 1.000 H, N (more content not included)...[facility] Reason for referral (narrative)No reason for referral information available [facility] Work Phone: Summary Purpose Family History No Family History Records Found Relationship Condition Age at Onset Recorded Date/T eugene father Diabetes mellitus Unknown Cardiac disease Unknown Hypertension Unknown Advance Directives No Advanced Directives Records Found Advance Directive Response Recorded Date/ Time Living Will Yes June 10, 12:03pm Do you have a Healthcare Power of [place]? Yes June 10, 2024 12:03pm Name of Medical Power of Cooperer Neida June 10, 2024 12:03pm Advance Directives Yes June 2:48pm Advance Directive Response Recorded Date/ Time Advance Directives Yes June 2:48pm Chief Complaint and Reason for Visit Chief Complaint Admit Date GANGREENE OF LEFT FOOT June 10 9:44am GANGREENE OF LEFT FOOT June 11 5:01pm GANGREENE OF LEFT FOOT June 11 6:16pm GANGREENE OF LEFT FOOT June 12 8:32am GANGREENE OF LEFT FOOT June 13 12:36pm GANGREENE OF LEFT FOOT June 14 7:44am GANGREENE OF LEFT FOOT June 15 8:05am GANGREENE OF LEFT FOOT June 16 3:50pm GANGREENE OF LEFT FOOT June 16 6:22pm GANGREENE OF LEFT FOOT June 17 4:31pm GANGREENE OF LEFT FOOT June 17 4:40pm GANGREENE OF LEFT FOOT June 18 6:10pm GANGREENE OF LEFT FOOT June 18 6:43pm GANGREENE OF LEFT FOOT June 19 2:35pm WOUND July 15, 2024 8:15am WOUND August 13, 2024 8 :45am WOUND September 10, 2024 8:30am WOUND October 08, 2024 8:4 5am Reason for Visit Admit Date Atherosclerosis of [place] ter[place] of extremities with gangrene, left leg June 10, 2024 9:44am Other specified peripheral vascular dise ases June 10, 2024 9:44am Type 2 diabetes mellitus with foot ulcer June 10, 2024 9:44am HTN (hypertension) June 10, 2024 9:44am PAD (peripheral artery disease) June 10, 2024 9:44am Acidosis, lactic June 10, 2024 9:44am Acute osteomyelitis of left foot Novem r 2023 9:44am Diabetic ulcer of left foot May 9:44am Gangrene, not elsewhere classified Novem joseph 2023 9:44am Type 2 diabetes mellitus with diabetic p olyneuropathy June 10, 2024 9:44am Acute painful diabetic polyneuropathy De cember 2023 8:15am Other specified peripheral vascular dise ases July 15, 2024 8:15am Non-pressure chronic ulcer o f other part of left foot with bone involvement July 15, 2024 8:15am [facility] painful [facility] Other specified peripheral vascular dise ases August 13, 2024 8:45am Ulcer of left foot due to type 2 diabete s mellitus August 13, 2024 8:45am Non-pressure chronic ulcer o f other part of left foot with bone involvement August 13, 2024 8:45am Other specified peripheral vascular dise ases September 10, 2024 8:30am Ulcer of left foot due to type 2 diabete s mellitus September 10, 2024 8:30am Non-pressure chronic ulcer o f other part of left foot with bone involvement September 10, 2024 8:30am Foreign body in left foot October 08 8:45am Non-pressure chronic ulcer o f other part of left foot with bone involvement October 08, 2024 8:45am Chief Complaint Admit Date GANGREENE OF LEFT FOOT June 10 9:44am GANGREENE OF LEFT FOOT June 16 3:50pm GANGREENE OF LEFT FOOT June 16 6:22pm GANGREENE OF LEFT FOOT June 17 4:31pm GANGREENE OF LEFT FOOT June 17 4:40pm GANGREENE OF LEFT FOOT June 18 6:10pm GANGREENE OF LEFT FOOT June 18 6:43pm GANGREENE OF LEFT FOOT June 19 2:35pm WOUND July 15, 2024 8:15am WOUND August 13, 2024 8 :45am WOUND September 10, 2024 8:30am WOUND October 08, 2024 8:4 5am Chief Complaint Admit Date WOUND August 13, 2024 8 :45am WOUND September 10, 2024 8:30am WOUND October 08, 2024 8:4 5am WOUND November 05, 2024 9:4 5am WOUND November 19, 2024 8:17am Reason for Visit Admit Date Acute painful diabetic polyneuropathy [facility] 2024 8:45am Other specified peripheral vascular dise [facility] August 13, 2024 8:45am Ulcer of left foot due to type 2 diabete s mellitus August 13, 2024 8:45am Non-pressure chronic ulcer o f other part of left foot with bone involvement August 13, 2024 8:45am Other specified peripheral vascular dise ases September 10, 2024 8:30am Ulcer of left foot due to type 2 diabete s mellitus September 10, 2024 8:30am Non-pressure chronic ulcer o f other part of left foot with bone involvement September 10, 2024 8:30am Foreign body in left foot October 08 8:45am Non-pressure chronic ulcer o f other part of left foot with bone involvement October 08, 2024 8:45am Cutaneous abscess of left foot October 9:45am Non-pressure chronic ulcer o f other part of left foot with necrosis of muscle November 05, 2024 9:45am Non-pressure chronic ulcer o f other part of left foot with necrosis of muscle November 19, 2024 8:17am Chief Complaint Admit Date WOUND September 10, 2024 8:30am WOUND October 08, 2024 8:4 5am WOUND November 05, 2024 9:4 5am WOUND November 19, 2024 8:17am Reason for Visit Admit Date Other specified peripheral vascular dise ases September 10, 2024 8:30am Ulcer of left foot due to type 2 diabete s mellitus September 10, 2024 8:30am Non-pressure chronic ulcer o f other part of left foot with bone involvement September 10, 2024 8:30am Foreign body in left foot October 08 8:45am Non-pressure chronic ulcer o f other part of left foot with bone involvement October 08, 2024 8:45am Cutaneous abscess of left foot October 9:45am Non-pressure chronic ulcer o f other part of left foot with necrosis of muscle November 05, 2024 9:45am Non-pressure chronic ulcer o f other part of left foot with necrosis of muscle November 19, 2024 8:17am Additional Source Comments (unrecognized sect ion and content) No Status Records FoundNo Status Records Found INFORMATION SOURCE (unrecogn ized section and content) DATE CREATED AUTHOR 01/07/2018 [facility] DATE CREATED AUTHOR AUTHOR'S ORGANIZ ATION [facility] Care Teams (unrecognized sec tion and content) Team Status: Active Member Role Status Dates Dr. Floyd Ricketts DO Primary Care Provider Active Team Status: Inactive Member Role Status Dates Dr. Floyd Ricketts DO Primary Care Provider Active Start: June 10, 2024 End: June 19, 2024 Dr. Carlos Cazares , Emergency Provider Active Start: June 10, 2024 End: June 19, 2024 Dr. Floyd Shah , Admit Provider Active S tart: June 10, 2024 End: June 19, 2024 Dr. Floyd Shah , Attending Provider Active Start: June 10, 2024 End: June 19, 2024 Dr. Floyd Shah , Other Provider Active S tart: June 10, 2024 End: June 19, 2024 Dr. Kyle Rowland MD Other Provider Active Start: June 10, 2024 End: June 19, 2024 Dr. Sylvain Ruiz DPM Other Provider Active Start: June 10, 2024 End: June 19, 2024 Dr. Tyson Kunz MD Other Provider Active Start : June 10, 2024 End: June 19, 2024 Dr. Tyson Alvarez DO Other Provider Active Star t: June 10, 2024 End: June 19, 2024 Team Status: Active Member Role Status Dates Dr. Floyd Ricketts DO Primary Care Provider Active Start: June 11, 2024 Dr. Carlos Cazares DO Emergency Provider Active Start: June 11, 2024 Dr. Floyd Shah DO Admit Provider Active S tart: June 11, 2024 Dr. Floyd Shah DO Referring Provider Active Start: June 11, 2024 Dr. Floyd Shah DO Other Provider Active S tart: June 11, 2024 Dr. Kyle Rowland MD Other Provider Active Start: June 11, 2024 Dr. Sylvain Ruiz DPM Other Provider Active Start: June 11, 2024 Dr. Tyson Kunz MD Attending Provider Active S tart: June 11, 2024 Dr. Tyson Kunz MD Other Provider Active Start : June 11, 2024 Team Status: Active Member Role Status Dates Dr. Floyd Ricketts DO Primary Care Provider Active Start: June 11, 2024 Dr. Carlos Cazares DO Emergency Provider Active Start: June 11, 2024 Dr. Floyd Shah DO Admit Provider Active S tart: June 11, 2024 Dr. Floyd Shah DO Attending Provider Active Start: June 11, 2024 Dr. Floyd Shah DO Other Provider Active S tart: June 11, 2024 Dr. Kyle Rowland MD Other Provider Active Start: June 11, 2024 Dr. Sylvain Ruiz DPM Other Provider Active Start: June 11, 2024 Dr. Tyson Kunz MD Other Provider Active Start : June 11, 2024 Team Status: Active Member Role Status Dates Dr. Floyd Ricketts DO Primary Care Provider Active Start: June 12, 2024 Dr. Carlos Cazares , DO Emergency Provider Active Start: June 12, 2024 Dr. Floyd Shah , DO Admit Provider Active S tart: June 12, 2024 Dr. Floyd Shah , DO Other Provider Active S tart: June 12, 2024 Dr. Kyle Rowland MD Other Provider Active Start: June 12, 2024 Dr. Sylvain Ruiz DPM Other Provider Active Start: June 12, 2024 Dr. Tyson Kunz MD Other Provider Active Start : June 12, 2024 Dr. Tyson Alvarez DO Attending Provider Active Start: June 12, 2024 Dr. Tyson Alvarez DO Other Provider Active Star t: June 12, 2024 Team Status: Active Member Role Status Dates Dr. Floyd Ricketts , Primary Care Provider Active Start: June 13, 2024 Dr. Carlos Cazares DO Emergency Provider Active Start: June 13, 2024 Dr. Floyd Shah DO Admit Provider Active S tart: June 13, 2024 Dr. Floyd Shah , DO Other Provider Active S tart: June 13, 2024 Dr. Kyle Rowland MD Other Provider Active Start: June 13, 2024 Dr. Sylvain Ruiz DPM Other Provider Active Start: June 13, 2024 Dr. Tyson Kunz MD Other Provider Active Start : June 13, 2024 Dr. Tyson Alvarez DO Attending Provider Active Start: June 13, 2024 Dr. Tyson Alvarez DO Other Provider Active Star t: June 13, 2024 Team Status: Active Member Role Status Dates Dr. Floyd Ricketts , Primary Care Provider Active Start: June 14, 2024 Dr. Carlos Cazares , DO Emergency Provider Active Start: June 14, 2024 Dr. Floyd Shah , DO Admit Provider Active S tart: June 14, 2024 Dr. Floyd Shah , DO Other Provider Active S tart: June 14, 2024 Dr. Kyle Rowland MD Other Provider Active Start: June 14, 2024 Dr. Sylvain Ruiz DPM Other Provider Active Start: June 14, 2024 Dr. Tyson Kunz MD Other Provider Active Start : June 14, 2024 Dr. Tyson Alvarez DO Attending Provider Active Start: June 14, 2024 Dr. Tyson Alvarez DO Other Provider Active Star t: June 14, 2024 Team Status: Active Member Role Status Dates Dr. Floyd Ricketts DO Primary Care Provider Active Start: June 15, 2024 Dr. Carlos Cazares DO Emergency Provider Active Start: June 15, 2024 Dr. Floyd Shah DO Admit Provider Active S tart: June 15, 2024 Dr. Floyd Shah DO Other Provider Active S tart: June 15, 2024 Dr. Kyle Rowland MD Other Provider Active Start: June 15, 2024 Dr. Sylvain Ruiz DPM Other Provider Active Start: June 15, 2024 Dr. Tyson Kunz MD Other Provider Active Start : June 15, 2024 Dr. Tyson Alvarez DO Attending Provider Active Start: June 15, 2024 Dr. Tyson Alvarez DO Other Provider Active Star t: June 15, 2024 Team Status: Active Member Role Status Dates Dr. Floyd Ricketts DO Primary Care Provider Active Start: June 16, 2024 Dr. Carlos Cazares DO Emergency Provider Active Start: June 16, 2024 Dr. Floyd Shah DO Admit Provider Active S tart: June 16, 2024 Dr. Floyd Shah DO Attending Provider Active Start: June 16, 2024 Dr. Floyd Shah DO Other Provider Active S tart: June 16, 2024 Dr. Kyle Rowland MD Other Provider Active Start: June 16, 2024 Dr. Sylvain Riuz DPM Other Provider Active Start: June 16, 2024 Dr. Tyson Kunz MD Other Provider Active Start : June 16, 2024 Dr. Tyson Alvarez DO Other Provider Active Star t: June 16, 2024 Team Status: Active Member Role Status Dates Dr. Floyd Ricketts DO Primary Care Provider Active Start: June 16, 2024 Dr. Carlos Cazares DO Emergency Provider Active Start: June 16, 2024 Dr. Floyd Shah DO Admit Provider Active S tart: June 16, 2024 Dr. Floyd Shah DO Referring Provider Active Start: June 16, 2024 Dr. Floyd Shah DO Other Provider Active S tart: June 16, 2024 Dr. Kyle Rowland MD Other Provider Active Start: June 16, 2024 Dr. Sylvain Ruiz DPM Other Provider Active Start: June 16, 2024 Dr. Tyson Kunz MD Attending Provider Active S tart: June 16, 2024 Dr. Tyson Kunz MD Other Provider Active Start : June 16, 2024 Dr. Tyson Alvarez DO Other Provider Active Star t: June 16, 2024 Team Status: Active Member Role Status Dates Dr. Floyd Ricketts DO Primary Care Provider Active Start: June 17, 2024 Dr. Carlos Cazares DO Emergency Provider Active Start: June 17, 2024 Dr. Floyd Shah DO Admit Provider Active S tart: June 17, 2024 Dr. Floyd Shah DO Other Provider Active S tart: June 17, 2024 Dr. Kyle Rowland MD Other Provider Active Start: June 17, 2024 Dr. Sylvain Ruiz DPM Other Provider Active Start: June 17, 2024 Dr. Tyson Kunz MD Attending Provider Active S tart: June 17, 2024 Dr. Tyson Kunz MD Referring Provider Active S tart: June 17, 2024 Dr. Tyson Kunz MD Other Provider Active Start : June 17, 2024 Dr. Tyson Alvarez DO Other Provider Active Star t: June 17, 2024 Team Status: Active Member Role Status Dates Dr. Floyd Ricketts DO Primary Care Provider Active Start: June 17, 2024 Dr. Carlos Cazares DO Emergency Provider Active Start: June 17, 2024 Dr. Floyd Shah DO Admit Provider Active S tart: June 17, 2024 Dr. Floyd Shah DO Attending Provider Active Start: June 17, 2024 Dr. Floyd Shah DO Other Provider Active S tart: June 17, 2024 Dr. Kyle Rowland MD Other Provider Active Start: June 17, 2024 Dr. Sylvain Ruiz DPM Other Provider Active Start: June 17, 2024 Dr. Tyson Kunz MD Other Provider Active Start : June 17, 2024 Dr. Tyson Alvarez DO Other Provider Active Star t: June 17, 2024 Team Status: Active Member Role Status Dates Dr. Floyd Ricketts DO Primary Care Provider Active Start: June 18, 2024 Dr. Carlos Cazares DO Emergency Provider Active Start: June 18, 2024 Dr. Floyd hSah DO Admit Provider Active S tart: June 18, 2024 Dr. Floyd Shah DO Attending Provider Active Start: June 18, 2024 Dr. Floyd Shah DO Other Provider Active S tart: June 18, 2024 Dr. Kyle Rowland MD Other Provider Active Start: June 18, 2024 Dr. Sylvain Ruiz DPM Other Provider Active Start: June 18, 2024 Dr. Tyson Kunz MD Other Provider Active Start : June 18, 2024 Dr. Tyson Alvarez DO Other Provider Active Star t: June 18, 2024 Team Status: Active Member Role Status Dates Dr. Floyd Ricketts DO Primary Care Provider Active Start: June 18, 2024 Dr. Carlos Cazares DO Emergency Provider Active Start: June 18, 2024 Dr. Floyd Shah DO Admit Provider Active S tart: June 18, 2024 Dr. Floyd Shah DO Referring Provider Active Start: June 18, 2024 Dr. Floyd Shah DO Other Provider Active S tart: June 18, 2024 Dr. Kyle Rowland MD Other Provider Active Start: June 18, 2024 Dr. Sylvain Ruiz DPM Other Provider Active Start: June 18, 2024 Dr. Tyson Kunz MD Other Provider Active Start : June 18, 2024 Dr. Tyson Alvarez DO Other Provider Active Star t: June 18, 2024 [place] Alexandra Attending Provider Active Star t: June 18, 2024 Team Status: Active Member Role Status Dates Dr. Floyd Ricketts DO Primary Care Provider Active Start: June 19, 2024 Dr. Carlos Cazares DO Emergency Provider Active Start: June 19, 2024 Dr. Floyd Shah DO Admit Provider Active S tart: June 19, 2024 Dr. Floyd Shah DO Attending Provider Active Start: June 19, 2024 Dr. Floyd Shah DO Other Provider Active S tart: June 19, 2024 Dr. Kyle Rowland MD Other Provider Active Start: June 19, 2024 Dr. Sylvain Ruiz DPM Other Provider Active Start: June 19, 2024 Dr. Tyson Kunz MD Other Provider Active Start : June 19, 2024 Dr. Tyson Alvarez DO Other Provider Active Star t: June 19, 2024 Team Status: Inactive Member Role Status Dates Dr. Floyd Ricketts DO Primary Care Provider Active Start: July 15, 2024 End: July 15, 2024 Dr. Felipe Barnett DPM Attending Provider Active Start: July 15, 2024 End: July 15, 2024 Dr. Sylvain Ruiz DPM Referring Provider Active Start: July 15, 2024 End: July 15, 2024 Team Status: Inactive Member Role Status Dates Dr. Floyd Ricketts DO Primary Care Provider Active Start: August 13, 2024 End: August 15, 2024 Dr. Felipe Barnett DPM Attending Provider Active Start: August 13, 2024 End: August 15, 2024 Dr. Sylvain Ruiz DPM Referring Provider Active Start: August 13, 2024 End: August 15, 2024 Team Status: Inactive Member Role Status Dates Dr. Floyd Ricketts DO Primary Care Provider Active Start: September 10, 2024 End: September 12, 2024 Dr. Felipe Barnett DPM Attending Provider Active Start: September 10, 2024 End: September 12, 2024 Dr. Sylvain Ruiz DPM Referring Provider Active Start: September 10, 2024 End: September 12, 2024 Team Status: Inactive Member Role Status Dates Dr. Floyd Ricketts DO Primary Care Provider Active Start: October 02, 2024 End: October 02, 2024 Dr. Floyd Ricketts DO Attending Provider Active Start: October 02, 2024 End: October 02, 2024 Team Status: Active Member Role Status Dates Dr. Floyd Ricketts DO Primary Care Provider Active Start: October 08, 2024 Dr. Felipe Barnett DPM Attending Provider Active Start: October 08, 2024 Dr. Sylvain Ruiz DPM Referring Provider Active Start: October 08, 2024 Team Status: Inactive Member Role Status Dates Dr. Floyd Ricketts DO Primary Care Provider Active Start: October 08, 2024 End: October 13, 2024 Dr. Felipe Barnett DPM Attending Provider Active Start: October 08, 2024 End: October 13, 2024 Dr. Sylvain Ruiz DPM Referring Provider Active Start: October 08, 2024 End: October 13, 2024 Team Status: Inactive Member Role Status Dates Dr. Floyd Ricketts DO Primary Care Provider Active Start: November 05, 2024 End: November 12, 2024 Dr. Felipe Barnett DPM Attending Provider Active Start: November 05, 2024 End: November 12, 2024 Dr. Sylvain Ruiz DPM Referring Provider Active Start: November 05, 2024 End: November 12, 2024 Team Status: Inactive Member Role Status Dates Dr. Floyd Ricketts DO Primary Care Provider Active Start: November 19, 2024 End: December 11, 2024 Dr. Felipe Barnett DPM Attending Provider Active Start: November 19, 2024 End: December 11, 2024 Dr. Sylvain Ruiz DPM Referring Provider Active Start: November 19, 2024 End: December 11, 2024 Team Status: Inactive Member Role Status Dates Dr. Floyd Ricketts DO Primary Care Provider Active Start: January 01, 2025 End: January 01, 2025 Dr. Floyd Ricketts DO Attending Provider Active Start: January 01, 2025 End: January 01, 2025 Goals (unrecognized section and content) Goals may be documented in a n alternate sectionGoals may be documented in an alternate section FOR RECORDS PERTAINING TO PATIENTS WHO ARE OR HAVE BEEN ENROLLED IN A CHEMICAL DEPENDENCY/SUBSTANCEABUSE PROGRAM, SOME INFORMATION MAY BE OMITTED. This clinical summary was aggregated from multiple sources. Caution should be exercised in using it in the provision of clinical care. This summary normalizes information from multiple sources, and as a consequence, information in this document may materially change the coding, format and clinical context of patient data. In addition, data may be omitted in some cases. CLINICAL DECISIONS SHOULD BE BASED ON THE PRIMARY CLINICAL RECORDS. [employer] provides no warranty or guarantee of the accuracy or completeness of information in this document.
== END | disposition home or self-care (01) ==
LOC: BFHLAB 10:30
PROVIDERS: PCP Family Medicine; Visit Provider Family Medicine
DX: R60.0 Localized edema (principal)
CPT/HCPCS: 36415; 80048

== ENCOUNTER → 2025-03-17 | Outpatient (CLI) | payer MEDICARE, SELFPAY ==
[2025-03-17 13:09] LABS: Anion Gap 15 (5-15); BUN 43 mg/dL (4-19); BUN/Creat Ratio 25.9 RATIO (10-20); Calcium,Total 9.9 mg/dL (7.6-11.0); Carbon Dioxide 27.1 mmol/L (21.0-32.0); Chloride 99 mmol/L (98-108); Glucose 107 mg/dL (70-99); Potassium 3.7 mmol/L (3.3-5.1)
== END | disposition home or self-care (01) ==
LOC: BFHLAB 10:31
PROVIDERS: PCP Family Medicine; Referring Provider Family Medicine; Visit Provider Family Medicine
DX: N17.9 Acute kidney failure, unspecified (principal)
CPT/HCPCS: 36415; 80048

== ENCOUNTER → 2025-03-19 | Outpatient (CLI) | payer MEDICARE, SELFPAY | END | disposition home or self-care (01) | LOC: LABSPEC 18:00 | PROVIDERS: PCP Family Medicine; Visit Provider Podiatrist Foot & Ankle Surgery | DX: S91.302A Unspecified open wound, left foot, initial encounter (principal); X58.XXXA Exposure to other specified factors, initial encounter | CPT/HCPCS: 87070; 87075; 87077; 87186; 87205 ==

== ENCOUNTER → 2025-05-07 | Outpatient (CLI) | payer MEDICARE, SELFPAY | END | disposition home or self-care (01) | LOC: LABSPEC 16:33 | PROVIDERS: PCP Family Medicine; Visit Provider Podiatrist Foot & Ankle Surgery | DX: S91.302A Unspecified open wound, left foot, initial encounter (principal); X58.XXXA Exposure to other specified factors, initial encounter | CPT/HCPCS: 87070; 87075; 87077; 87186; 87205 ==

== ENCOUNTER → 2025-05-21 | Outpatient (CLI) | payer MEDICARE, SELFPAY ==
[2025-05-21 13:09] LABS: Hematocrit 40.9 % (40-54); Hemoglobin 13.3 g/dL (13.0-16.5); Mean Corp Hgb Conc 32.5 g/dL (32-36); Mean Corpuscular Volume 91.1 fL (80-94); Mean Platelet Vol. 10.1 fl (6.2-12.0); Platelet Count 342 K/mm3 (150-450); RBC Distribution Width CV 14.8 % (11.6-14.6); RBC Distribution Width SD 49.3 fl (35.1-43.9); Red Blood Count 4.49 M/mm3 (4.6-6.2); White Blood Count 15.0 K/mm3 (4.4-11.0)
[2025-05-21 13:52] LABS: Anion Gap 16 (5-15); BUN 46 mg/dL (4-19); BUN/Creat Ratio 27.8 RATIO (10-20); CRP < 3.00 mg/L (0.0-3.0); Calcium,Total 10.8 mg/dL (7.6-11.0); Carbon Dioxide 23.4 mmol/L (21.0-32.0); Chloride 102 mmol/L (98-108); Glucose 227 mg/dL (70-99); Potassium 4.0 mmol/L (3.3-5.1)
== END | disposition home or self-care (01) ==
LOC: LAB 12:06
PROVIDERS: PCP Family Medicine; Referring Provider Podiatrist Foot & Ankle Surgery; Visit Provider Podiatrist Foot & Ankle Surgery
DX: L97.529 Non-pressure chronic ulcer of other part of left foot with unspecified severity (principal)
CPT/HCPCS: 36415; 80048; 83036; 85027; 85652; 86140

== ENCOUNTER → 2025-06-12 | Outpatient (CLI) | payer MEDICARE, SELFPAY ==
--- NOTE | 2025-06-12 15:23 | MRI_ITS ---
PROCEDURE: LOWER EXT/NO JT/W/O 06/12/2025 REASON FOR EXAM: LEFT FOOT ULCER TECHNIQUE: Procedure Code: [id number] Modality: MR Procedure: LOWER EXT/NO JT/W/O T1, T2, stir, multiplanar and multisequence images of the left hindfoot were obtained without IV contrast administration. 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 There is an overlying soft tissue defect. There is marrow edema along the inferior margin of the 5th metatarsal stump with essentially normal T1 marrow signal, does not meet the criteria for osteomyelitis. There is no organized or drainable collection. There is subcortical edema with subcortical cyst formation in the distal tibia and in the talar dome. There is diffuse plantar muscular atrophy. The flexor and extensor tendons appear intact. The Lisfranc articulation is aligned and intact. 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 There is an overlying soft tissue defect. There is marrow edema along the inferior margin of the 5th metatarsal stump wit h essentially normal T1 marrow signal, does not meet the criteria for osteomyelitis. Reading Location: [facility]
--- OUTSIDE RECORDS SUMMARY | 2025-06-12 15:25 | XMS RPT_ITS | CCD ---
Author Organization [facility] Care Team Providers Care Licensed Veterinary Technician Name Role Phone Dr. Floyd Ricketts DO [...] Dr. Floyd Ricketts DO Primary Care Provider [place] DPM, Dr. Wang Attending Provider robbie DPM, Dr. Narayan Referring Provider Jamarcus DO, Dr. Barrientos Primary Care Provider [phone] Eden DPM, Dr. Wang Attending Provider [facility] DPM, Dr. Narayan Referring Provider [facility] DO, Dr. Barrientos Primary Care Provider [phone] [place] DPM, Dr. Wang Attending Provider [facility] DPM, Dr. Narayan Referring Provider Jamarcus DO, Dr. Barrientos Attending Provider Jamarcus DO, Dr. Barrientos Primary Care Provider [phone] Jamarcus DO, Dr. Barrientos Referring Provider [place] DPM, Dr. Wang Attending Provider robbie, Sylvain Referring Unavailable Felipe Barnett Attending Unavailable Jamarcus, Floyd Primary Care Unavailable Jamarcus, Floyd Primary Care Unavailable Felipe Barnett Attending Unavailable Jamarcus, Floyd Primary Care Unavailable Tereletsky, Floyd Attending Unavailable Tereletsky, Floyd Admitting Unavailable Kashif, Kyle Consulting Unavailable Wunning, Sylvain Consulting Unavailable [place], Tyson Consulting Unavailable Tereletsky, Floyd Consulting Unavailable Jopperi, Tyson Consulting Unavailable Wunning, Sylvain Referring Unavailable Jamarcus, Floyd Primary Care Unavailable Felipe Barnett Attending Unavailable Jopperi, Tyson Attending Unavailable Jamarcus, Floyd Primary Care Unavailable Tereletsky, Floyd Admitting Unavailable Kashif, Kyle Consulting Unavailable [place], Sylvain Consulting Unavailable [place], Tyson Consulting Unavailable Tereletsky, Floyd Consulting Unavailable Jopperi, Tyson Consulting Unavailable Tereletsky, Floyd Attending Unavailable Jamarcus, Floyd Primary Care Unavailable Felipe Barnett Attending Unavailable Jamarcus, Floyd Primary Care Unavailable Jamarcus, Floyd Referring Unavailable Jamarcus, Floyd Attending Unavailable Jamarcus, Floyd Primary Care Unavailable Jamarcus, Floyd Attending Unavailable Jamarcus, Floyd Primary Care Unavailable Jamarcus, Floyd Attending Unavailable Levy, Kajal Attending Unavailable Floyd Shah Referring Unavailable Joaquina, Tyson Referring Unavailable Joaquina, Tyson Attending Unavailable Sylvain Ruiz Referring Unavailable Jamarcus, Floyd Primary Care Unavailable Felipe Barnett Attending Unavailable Jamarcus, Floyd Primary Care Unavailable Felipe Barnett Attending Unavailable Felipe Barnett Referring Unavailable Sylvain Ruiz Referring Unavailable Jamarcus, Floyd Primary Care Unavailable Felipe Barnett Attending Unavailable Sylvain Ruiz Referring Unavailable Jamarcus, Floyd Primary Care Unavailable Felipe Barnett Attending Unavailable Jamarcus, Floyd Primary Care Unavailable Jamarcus, Floyd Attending Unavailable Sara, Sylvain Referring Unavailable Jamarcus, Floyd Primary Care Unavailable Felipe Barnett Attending Unavailable Allergies Allergy Classification Reported Allergen(s) Allergy Type Date of Onset Reaction(s) Facility (1 source) risedronate; Translations: [RISEDRONATE SODIUM] Drug Allergy 9 [facility] Repository (1 source) OTHER; Translations: [OTHER] Propensity to adverse reactions (disorder) 9 [facility] Repository Medications Current Medications Medication Drug Class(es) Dates Sig (Normalized) Sig (Original) ampicillin 2000 mg / sulbactam 1000 mg injection (7 sources) Penicillin-class Antibacterial, beta Lactamase Inhibitor Start: 06-18-2024 Ampicillin-Sulbacta m 3 gram Recon Soln Active 3 g IV EVERY 8 HOURS 123 41 0 June 18, 2024 1:00am stop date 07/29/24. Dx foot osteo. Weekly bmp, cbc, and esr. Fax to [phone]. Routine picc care per protocol. ascorbic acid 500 mg oral capsule (7 sources) Vitamin C Start: 09-26-2017 take 1 capsule by mouth once daily Ascorbic Acid (Vitamin C) 500 MG capsule Active 500 mg PO DAILY September 26, 2017 12:00am supplement atorvastatin 20 mg oral tablet (14 sources) HMG-CoA Reductase Inhibitor Start: 03-12-2020 End: 04-18-2021 take 1 tablet by mouth at bedtime Atorvastatin 20 MG tablet Active 20 mg PO AT BEDTIME April 18, 2021 10:37am Cholesterol doxycycline hyclate 100 mg oral capsule (10 sources) Tetracycline-cla ss Drug Start: 10-15-2024 End: 10-15-2024 take 1 capsule by mouth twice daily Doxycycline Hyclate 100 mg capsule Active 100 mg PO TWICE A DAY 28 14 0 October 15, 2024 12:00am Geriatric Loyxdqne-Iubx-Ofab Tablet (7 sources) Start: 04-18-2021 Geriatric Wyscqush-Zxog-Kcgj Tablet Active 1 {tbl} PO DAILY April 18, 2021 12:00am supplement Start: 04-18-2021 Geriatric Mult xqyv-Sjic-Jbng Tablet Active 1 {tbl} PO DAILY April 18, 2021 12:00am insulin isophane, human 100 unt/ml injectable suspension (14 sources) Start: 04-18-2021 Insulin Nph Is oph U-100 Human (Novolin N Nph U-100 Insulin) 100 unit/mL suspension Active 40 U SC TWICE A DAY April 18, 2021 10:37am blood glucose Start: 09-02-2020 End: 04-18-2021 Insulin Nph Isoph U-100 Melissa n (Novolin N Nph U-100 Insulin) 100 unit/mL suspension Discontinued 50 U SC TWICE A DAY 30 September 02, 2020 1:00am April 18, 2021 10:37am levothyroxine sodium 0.125 mg oral tablet (20 sources) l-Thyroxine Start: 05-25-2020 End: 04-18-2021 take 1 tablet by mouth once daily Levothyroxine 125 mcg tablet Active 125 ug PO DAILY April 18, 2021 10:37am thyroid Start: 08-21-2017 End: 05-25-2020 take 1 tablet by mouth once daily Levothyroxine 100 MCG tablet Discontinued 100 ug PO DAILY August 21, 2017 1:00am May 25, 2020 9:49am THYROID lisinopril 10 mg oral tablet (14 sources) Angiotensin Converting Enzyme Inhibitor Start: 03-12-2020 End: 04-18-2021 take 1 tablet by mouth once daily Lisinopril 10 MG tablet Active 10 mg PO DAILY April 18, 2021 10:37am BP metFORMIN hydrochloride 1000 mg oral tablet (14 sources) Biguanide Start: 03-12-2020 End: 04-18-2021 take 1 tablet by mouth twice daily Metformin 1,000 MG tablet Active 1000 mg PO TWICE A DAY April 18, 2021 10:37am blood glucose oxyCODONE hydrochloride 5 mg oral tablet (14 sources) Opioid Agonist Start: 06-19-2024 take 1 tablet by mouth every four hours as needed for pain Oxycodone 5 mg Tablet Active 5 mg PO EVERY 4 HOURS NEEDED as needed for Pain Score 4-10 12 2 0 June 19, 2024 Acute osteomyelitis of left foot Gangrene, not elsewhere classified Other acute osteomyelitis, left ankle and foot Gangrene, not elsewhere classified Start: 08-24-2017 End: 08-30-2017 take 1 tablet by mouth every four hours as needed for pain Oxycodone 5 MG tablet Discontinued 5 mg PO EVERY 4 HOURS NEEDED as needed for Moderate Pain (pain scale 4-5) 5 0 August 24, 2017 1:00am August 30, 2017 8:20am Ulcer of left foot Non-pressure chronic ulcer of other part of left foot with unspecified severity Pen Needle, Diabetic 1 EACH needle (14 sources) Start: 06-11-2024 Pen Needle, Di abetic 1 EACH needle Active 1 NMA SC BEFORE MEALS AND AT BEDTIME June 11, 2024 1:00am diabetic Start: 06-11-2024 Pen Needle, Di abetic 1 EACH needle Active 1 NMA SC BEFORE MEALS AND AT BEDTIME June 11, 2024 1:00am Start: 03-12-2020 End: 06-11-2024 inject 1 dose by subcutaneous injection at bedtime Pen Needle, Diabetic 1 EACH needle Discontinued 1 NMA subcut BEFORE MEALS AND AT BEDTIME 1 0 March 12, 2020 12:00am June 11, 2024 2:26pm Start: 03-12-2020 End: 06-11-2024 inject 1 dose by subcutaneous injection at bedtime Pen Needle, Diabetic 1 EACH needle Discontinued 1 NMA subcut BEFORE MEALS AND AT BEDTIME 1 March 12, 2020 12:00am June 11, 2024 2:26pm Completed/Discontinued Medications Medication Drug Class(es) Dates Sig (Normalized) Sig (Original) acetaminophen 325 mg / HYDROcodone bitartrate 5 mg oral tablet (7 sources) Opioid Agonist Start: 07-21-2020 End: 07-28-2020 take 1-10 tablets by mouth every four hours as needed for pain Hydrocodone-Acetam inophen 1 EACH tablet Discontinued 1 NMA PO EVERY 4 HOURS NEEDED as needed for Pain 1-10 Or Fever 14 7 0 July 21, 2020 July 27, 2020 1:00am July 28, 2020 1:02am amoxicillin 875 mg / clavulanate 125 mg oral tablet (7 sources) Penicillin-class Antibacterial Start: 03-12-2020 End: 06-14-2020 take 1 tablet by mouth every twelve hours Amoxicillin-Pot Clavulanate 875 MG tablet Discontinued 875 mg PO Q12H 20 0 March 12, 2020 12:00am June 14, 2020 10:35am aspirin 81 mg chewable tablet (20 sources) Platelet Aggregation Inhibitor, Nonsteroidal Anti-inflammatory Drug Start: 08-24-2017 End: 04-18-2021 take 1 tablet by mouth once daily Aspirin 81 MG tablet,chewable Discontinued 81 mg PO DAILY@0800 30 0 June 14, 2020 10:35am April 18, 2021 10:37am Hold for [address] Mims canagliflozin 100 mg oral tablet (7 sources) Sodium-Glucose Cotransporter 2 Inhibitor Start: 08-21-2017 End: 03-12-2020 take 1 tablet by mouth once daily Canagliflozin (Invokana) 100 MG tablet Discontinued 100 mg PO DAILY August 21, 2017 1:00am March 12, 2020 12:19pm BLOOD SUGAR cephalexin 500 mg oral capsule (7 sources) Cephalosporin Antibacterial Start: 08-24-2017 End: 09-12-2017 take 1 capsule by mouth every six hours Cephalexin 500 MG capsule Discontinued 500 mg PO EVERY 6 HOURS 28 0 August 24, 2017 1:00am September 12, 2017 4:28pm ciprofloxacin 500 mg oral tablet (7 sources) Quinolone Antimicrobial Start: 04-22-2021 End: 06-10-2024 take 1 tablet by mouth twice daily Ciprofloxacin Hcl (Cipro) 500 mg tablet Discontinued 500 mg PO TWICE A DAY 10 0 April 22, 2021 12:00am June 10, 2024 9:50am clopidogrel 75 mg oral tablet (20 sources) P2Y12 Platelet Inhibitor Start: 03-12-2020 End: 04-18-2021 take 1 tablet by mouth once daily Clopidogrel 75 MG tablet Discontinued 75 mg PO DAILY 30 0 June 14, 2020 10:35am April 18, 2021 10:37am 3 ml insulin aspart, human 100 unt/ml pen injector (14 sources) Insulin Analog Start: 06-12-2020 End: 09-02-2020 Insulin Aspart U-100 100 UNITS/ML insulin pen Discontinued 35 U SC 3 TIMES DAILY WITH MEALS 0 0 June 14, 2020 10:35am September 02, 2020 3:33pm diabetes Hold if glucose less than 130 mg/dl 3 ml insulin glargine 100 unt/ml pen injector (14 sources) Insulin Analog Start: 06-13-2020 End: 09-02-2020 Insulin Glargine 100 UNITS/ML insulin pen Discontinued 50 U SC TWICE A DAY June 13, 2020 1:00am September 02, 2020 3:33pm diabetes Start: 03-12-2020 End: 03-31-2020 Insulin Glargine 100 UNITS/M L insulin pen Discontinued 50 U SC AT BEDTIME 1 0 March 12, 2020 12:00am March 31, 2020 9:40pm 3 ml insulin lispro 100 unt/ml pen injector (7 sources) Insulin Analog Start: 03-12-2020 End: 03-31-2020 Insulin Lispro 100 UNIT/ML insulin pen Discontinued 25 U SC THREE TIMES DAILY BEFORE MEALS 1 0 March 12, 2020 12:00am March 31, 2020 9:40pm insulin, regular, human 100 unt/ml injectable solution (14 sources) Insulin Start: 04-18-2021 End: 06-19-2024 Insulin Regular Human (Novolin R Regular U100 Insulin) 100 unit/mL solution Discontinued 40 U SC TWICE A DAY April 18, 2021 10:37am June 19, 2024 3:42pm blood glucose Start: 09-02-2020 End: 04-18-2021 Insulin Regular Human (Novol in R Regular U-100 Insuln) 100 unit/mL solution Discontinued 35 U SC THREE TIMES A DAY 30 6 September 02, 2020 1:00am April 18, 2021 10:37am 24 hr metFORMIN hydrochloride 1000 mg / SITagliptin 50 mg extended release oral tablet (7 sources) Biguanide, Dipeptidyl Peptidase 4 Inhibitor Start: 08-21-2017 End: 03-12-2020 Sitagliptin Phos-Metformin 1 EACH tablet, ER multiphase 24 hr Discontinued 1 {tbl} PO TWICE A DAY August 21, 2017 1:00am March 12, 2020 12:19pm BLOOD SUGAR pioglitazone 45 mg oral tablet (7 sources) Peroxisome Proliferator Receptor alpha Agonist, Peroxisome Proliferator Receptor gamma Agonist, Thiazolidinedione Start: 08-21-2017 End: 03-12-2020 take 1 tablet by mouth once daily Pioglitazone 45 MG tablet Discontinued 45 mg PO DAILY August 21, 2017 1:00am March 12, 2020 12:19pm BLOOD SUGAR potassium gluconate 2.5 meq oral tablet (7 sources) Start: 06-12-2020 End: 06-19-2024 Potassium 99 MG tablet Discontinued 200 mg PO TWICE A DAY June 12, 2020 1:00am June 19, 2024 3:43pm supplement Problems Active Problems Problem Classification Problem Date Documented Date Episodic/Chronic Acquired foot deformities (7 sources) Hammer toe; Translations: [Other hammer toe(s) (acquired), left foot] 02-13-2018 Chronic Acquired foot deformities (7 sources) Hammer toe; Translations: [Other hammer toe(s) (acquired), right foot] 02-13-2018 Chronic Acquired foot deformities (7 sources) Metatarsophalangeal joint stiff; Translations: [Other deformities of toe(s) (acquired), unspecified foot] 03-20-2018 Episodic Acute and unspecified renal failure (1 source) Acute kidney failure, unspecified; Translations: [Acute kidney failure, unspecified] Onset: 5 Episodic Chronic ulcer of skin (20 sources) [...] 4 06-27-2024 Chronic Diabetes mellitus without complication (7 sources) Diabetes mellitus; Translations: [Type 2 diabetes mellitus without complications] 06-12-2020 Chronic Disorders of lipid metabolism (7 sources) Hyperlipidemia; Translations: [Hyperlipidemia, unspecified] 03-08-2020 Chronic Essential hypertension (9 sources) Hypertensive disorder; Translations: [Essential (primary) hypertension] 04-18-2021 Chronic Comment on above: per pt, controlled o n meds Fluid and electrolyte disorders (9 sources) Lactic acidosis; Translations: [Lactic acidosis] 06-27-2024 Episodic Gangrene (10 sources) Atherosclerosis of [place] arteries of extremities with gangrene, left leg; Translations: [Atherosclerosis of [place] artery of left lower extremity with gangrene] Onset: 4 06-11-2024 Chronic Genitourinary symptoms and ill-defined conditions (7 sources) Dustin hematuria; Translations: [Gross hematuria] 06-12-2020 Episodic Infective arthritis and osteomyelitis (except that caused by tuberculosis or sexually transmitted disease) (20 sources) Osteomyelitis of forefoot; Translations: [Osteomyelitis, unspecified] Onset: 4 06-12-2020 Chronic Open wounds of extremities (8 sources) Open wound of foot; Translations: [Unspecified open wound, unspecified foot, initial encounter] Onset: 5 04-07-2020 Episodic Other circulatory disease (20 sources) Peripheral vascular disease; Translations: [Other specified peripheral vascular diseases] 06-25-2024 Chronic Other circulatory disease (1 source) Other specified peripheral vascular diseases; Translations: [Other specified peripheral vascular diseases] Onset: 4 Chronic Other injuries and conditions due to external causes (7 sources) Delayed healing of wound; Translations: [Other injury of unspecified body region, subsequent encounter] 05-08-2018 Episodic Other nutritional; endocrine; and metabolic disorders (7 sources) Body mass index 30+ - obesity; Translations: [Obesity, unspecified] 03-08-2020 Chronic Peripheral and visceral atherosclerosis (9 sources) Peripheral vascular disease, unspecified; Translations: [Peripheral arterial disease] 09-12-2017 Chronic Residual codes; unclassified (7 sources) History of colonoscopy; Translations: [Other specified postprocedural states] 06-12-2020 Episodic Residual codes; unclassified (1 source) Localized edema; Translations: [Localized edema] Onset: 5 Episodic Septicemia (except in labor) (7 sources) Sepsis; Translations: [Sepsis, unspecified organism] 06-12-2020 Episodic Skin and subcutaneous tissue infections (15 sources) Cellulitis of right foot; Translations: [Cellulitis of right lower limb] 04-06-2020 Episodic Superficial injury; contusion (11 sources) Foreign body of foot; Translations: [Superficial foreign body, left foot, initial encounter] 10-08-2024 Episodic Thyroid disorders (14 sources) Acquired hypothyroidism; Translations: [Hypothyroidism, unspecified] 05-25-2020 Chronic Unclassified (2 sources) In 2 to 4 weeks, call for an appointment Unclassified (2 sources) Appointment on 06/25/2024 at 8 AM-Dr. 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; Translations: [snf (current) use of insulin] Onset: 07-11-2024 Episodic Residual codes; unclassified (1 source) Edema, unspecified; Translations: [Edema, unspecified] Onset: 01-08-2025 Episodic Unclassified (7 sources) redness of right second toe 06-12-2020 Unclassified (7 sources) swelling of right second toe 06-12-2020 Results Test Name Value Interpretation Reference Range Facility Basic Metabolic Profile (BMP )on 05-21-2025 BUN/CRE 27.8 RATIO High 10-20 [facility] Comment on above: Performed By: #### L [id number], [id number], [id number] #### [facility] [address] [place], [address] Calcium [Mass/Vol] 10.8 mg/dL Normal 7.6-11.0 [facility] Comment on above: Performed By: #### L [id number], [id number], [id number] #### [facility] [address] [place], [address] Chloride [Moles/Vol] 102 mmol/L Normal 98-108 [facility] Comment on above: Performed By: #### L [id number], [id number], [id number] #### [facility] [address] [place], [address] CO2 [Moles/Vol] 23.4 mmol/L Normal 21.0-32.0 [facility] Comment on above: Performed By: #### L [id number], [id number], [id number] #### [facility] [address] [place], [address] Creatinine [Mass/Vol] 1.65 mg/dL High 0.70-1.20 [facility] Comment on above: Performed By: #### L [id number], [id number], [id number] #### [facility] [address] [place], [address] GAP 16 High 5-15 [facility] Comment on above: Performed By: #### L [id number], [id number], [id number] #### [facility] [address] [place], [address] GFR/1.73 sq M.predicted among non-blacks MDRD (S/P/Bld) [Vol rate/Area] 43 mL/min/{1.73_m2} Low >60 [facility] Comment on above: Result Comment: mL/m in/1.73m2 CKD-EPI Creatinine Equation (2020) Performed By: #### L [id number], [id number], [id number] #### [facility] [address] [place], [address] Glucose [Mass/Vol] 227 mg/dL High 70-99 [facility] Comment on above: Performed By: #### L [id number], [id number], [id number] #### [facility] [address] [place], [address] Potassium [Moles/Vol] 4.0 mmol/L Normal 3.3-5.1 [facility] Comment on above: Result Comment: Hemo lysis present, Results??could be affected. ?? Performed By: #### L [id number], [id number], [id number] #### [facility] [address] [place], [address] Sodium [Moles/Vol] 141 mmol/L Normal 133-145 [facility] Comment on above: Performed By: #### L [id number], [id number], [id number] #### [facility] [address] [place], [address] Urea nitrogen [Mass/Vol] 46 mg/dL High 4-19 [facility] Comment on above: Performed By: #### L [id number], [id number], [id number] #### [facility] [address] [place], [address] CBC-Complete Blood Cnt No Di ffon 05-21-2025 Erythrocyte distribution width (RBC) [Ratio] 14.8 % High 11.6-14.6 [facility] Comment on above: Performed By: #### L [id number], [id number], [id number] #### [facility] [address] [place], [address] Hematocrit (Bld) [Volume fraction] 40.9 % Normal 40-54 [facility] Comment on above: Performed By: #### L [id number], [id number], [id number] #### [facility] [address] [place], [address] Hemoglobin (Bld) [Mass/Vol] 13.3 g/dL Normal 13.0-16.5 [facility] Comment on above: Performed By: #### L [id number], [id number], [id number] #### [facility] [address] [place], [address] MCH (RBC) [Entitic mass] 29.6 pg Normal 27.0-32.0 [facility] Comment on above: Performed By: #### L [id number], [id number], [id number] #### [facility] [address] [place], [address] MCHC (RBC) [Mass/Vol] 32.5 g/dL Normal 32-36 [facility] Comment on above: Performed By: #### L [id number], [id number], [id number] #### [facility] [address] [place], [address] MCV (RBC) [Entitic vol] 91.1 fL Normal 80-94 [facility] Comment on above: Performed By: #### L [id number], [id number], [id number] #### [facility] [address] [place], [address] Platelet mean volume (Bld) [Entitic vol] 10.1 fL Normal 6.2-12.0 [facility] Comment on above: Performed By: #### L [id number], [id number], [id number] #### [facility] [address] [place], [address] Platelets (Bld) [#/Vol] 342 10*3/uL Normal 150-450 [facility] Comment on above: Performed By: #### L [id number], [id number], [id number] #### [facility] [address] [place], [address] RBC (Bld) [#/Vol] 4.49 10*6/uL Low 4.6-6.2 [facility] Comment on above: Performed By: #### L [id number], [id number], [id number] #### [facility] [address] [place], [address] RDW SD 49.3 fl High 35.1-43.9 [facility] Comment on above: Performed By: #### L [id number], [id number], [id number] #### [facility] [address] [place], [address] WBC (Bld) [#/Vol] 15.0 10*3/uL High 4.4-11.0 [facility] Comment on above: Performed By: #### L [id number], [id number], [id number] #### [facility] [address] [place], [address] CRPon 05-21-2025 C-REACTIVE PROT < 3.00 Normal 0.0-3.0 [facility] Comment on above: Performed By: #### L [id number], [id number], [id number] #### [facility] [address] [place], [address] Erythrocyte Sed Rateon 05-21 SED RATE 33 mm/hr High 0-20 [facility] Comment on above: Performed By: #### L [id number], [id number], [id number] #### [facility] [address] [place], [address] Hemoglobin A1con 05-21-2025 HbA1c (Bld) [Mass fraction] 5.8 % High <=5.6 [facility] Comment on above: Result Comment: Norm al < 5.7 % Prediabetic 5.7 - 6.4 % Diabetic >or= 6.5 % Please note range changes. Performed By: #### L [id number], [id number], [id number] #### [facility] [address] [place], [address] Culture, Anaerobic Any Sourc xu 05-11-2025 CUAN LEFT FOOT No anaerobic bacteria isolated. Normal [facility] Comment on above: Performed By: #### L 501.080 #### [facility] [address] [place], [address] Wound Cultureon 05-09-2025 WC LEFT FOOT Copy of report sent to Infection Control Printer [id number] 05/09/25 0702 ASNIPES. Meth. resistant Staph. aureus Amount Growth 3+ [...] S Vancomycin Islt PASHA <=0.5 S Normal [facility] Comment on above: Performed By: #### L 501.080 #### [facility] [address] [facility] [place], [address] Gram Stainon 05-08-2025 GS LEFT FOOT Gram Stain 1+ Gram positive cocci 1+ White Blood Cells No Epithelial cells Normal [facility] Comment on above: Performed By: #### L 501.080 #### [facility] [address] [facility] [place], [address] Wound Cultureon 05-02-2025 WC L FOOT WOUND Copy of report sent to Infection Control Printer [id number] 03/23/25 0928 SUE. Wound Culture #2 SUSCEPTIBILITY PERFORMED AT [facility]. Wound Culture #2 TESTING PERFORMED AT [facility]. ORIGINAL REPORT ON FILE IN LAB CONTAINS ADDITIONAL TEST SITE INFORMATION. Wound Culture Wound Culture Wound Culture TESTING-@STATED THEY MISSED SUSCEP.THEY ARE REPORTING LAB Meth. resistant Staph. aureus Amount Growth 1+ mecA Testing not performed [facility] Amount Growth Rare * This is an amended result. * A prior result that was reported as final has been changed. 04/20/25 1203 by SUE Keys. resistant Staph. aureus: REACTION cefOXitin Susc Islt POS Doxycycline Islt PASHA <=0.5 S Clindamycin Islt PASHA Clindamycin.induced Susc Islt POS Erythromycin Islt PASHA 1 I Gentamicin Islt PASHA <=0.5 S Linezolid Islt PASHA 2 S Moxifloxacin Islt PASHA >=8 R Oxacillin Susc Islt R Tetracycline Islt PASHA <=1 S TMP SMX Islt PASHA <=10 S Vancomycin Islt PASHA 1 S Dermabacter hominis: REACTION Erythromycin Islt PASHA >=2 R Gentamicin Islt PASHA <=4 S rifAMPin Islt PASHA <=1 Tetracycline Islt PASHA >=16 R Vancomycin Islt PASHA <=2 S Penicillin Islt PASHA 2 I Normal [facility] Comment on above: Performed By: #### L 501.080 #### [facility] [address] [place], [place], [id number] Culture, Anaerobic Any Sourc xu 03-24-2025 CUAN L FOOT WOUND Studies have confirmed that Anaerobic Gram Positive Cocci are routinely SUSCEPTABLE to Penicillin and generally susceptible to Beta-lactams and Beta-lactamase inhibitors, Cephalosporins, Carbapenems and Metronidazole. They are showing increased RESISTANCE to Clindamycin Anaerobic cocci Normal [facility] Comment on above: Performed By: #### L 501.080 #### [facility] [address] [place], [address] Gram Stainon 03-20-2025 GS L FOOT WOUND Gram Stain Very Rare Gram positive cocci No Epithelial cells Very Rare White Blood Cells Normal [facility] Comment on above: Performed By: #### L 501.080 #### [facility] [address] [place], [place], [id number] Anaerobic cultureOrdered By: Felipe Barnett on 03-19-2025 Bacteria identified Anaer cx Nom (Unsp spec) Anaerobic cocci Abnormal [facility] Gram stainOrdered By: Antonia Barnett on 03-19-2025 Microscopic observation Gram stain Nom (Unsp spec) [facility] Anion gap in Serum or Plasma Ordered By: Floyd Ricketts on 03-17-2025 Anion gap [Moles/Vol] 15 mmol/L 5-15 [facility] BUN/creatinine ratioOrdered By: Floyd Ricketts on 03-17-2025 Urea nitrogen/Creatinine [Mass ratio] 25.9 mg/mg High - [facility] Basic Metabolic Profile (BMP )on 03-17-2025 BUN/CRE 25.9 RATIO High 05-04 [facility] Comment on above: Performed By: #### L 501.080 #### [facility] [address] [place], [address] Calcium [Mass/Vol] 9.9 mg/dL Normal 7.6-11.0 [facility] Comment on above: Performed By: #### L [id number] #### [facility] [address] [place], [address] Chloride [Moles/Vol] 99 mmol/L Normal 98-108 [facility] Comment on above: Performed By: #### L [id number] #### [facility] [address] [place], [address] CO2 [Moles/Vol] 27.1 mmol/L Normal 21.0-32.0 [facility] Comment on above: Performed By: #### L [id number] #### [facility] [address] [place], [address] Creatinine [Mass/Vol] 1.67 mg/dL High 0.70-1.20 [facility] Comment on above: Performed By: #### L 501.080 #### [facility] [address] [place], [address] GAP 15 Normal 5-15 [facility] Comment on above: Performed By: #### L 501.080 #### [facility] [address] [place], [address] GFR/1.73 sq M.predicted among non-blacks MDRD (S/P/Bld) [Vol rate/Area] 43 mL/min/{1.73_m2} Low >60 [facility] Comment on above: Result Comment: mL/m in/1.73m2 CKD-EPI Creatinine Equation (2020) Performed By: #### L 501.080 #### [facility] [address] [place], [address] Glucose [Mass/Vol] 107 mg/dL High 70-99 [facility] Comment on above: Performed By: #### L 501.080 #### [facility] [address] [place], [address] Potassium [Moles/Vol] 3.7 mmol/L Normal 3.3-5.1 [facility] Comment on above: Performed By: #### L 501.080 #### [facility] [address] [place], [address] Sodium [Moles/Vol] 141 mmol/L Normal 133-145 [facility] Comment on above: Performed By: #### L [id number] #### [facility] [address] [place], [address] Urea nitrogen [Mass/Vol] 43 mg/dL High 4-19 [facility] Comment on above: Performed By: #### L 501.080 #### [facility] [address] [place], [address] Carbon dioxide, total [Moles /volume] in Central venous bloodOrdered By: Floyd Ricketts on 03-17-2025 CO2 [Moles/Vol] 27.1 mmol/L 21.0-32.0 [facility] Chloride assayOrdered By: Michael Ricketts on 03-17-2025 Chloride [Moles/Vol] 99 mmol/L 98-108 [facility] Glomerular filtration rate ( GFR) estimation/1.73 sq m using serum, plasma, or whole bOrdered By: Floyd Ricketts on 03-17-2025 GFR/1.73 sq M.predicted among non-blacks MDRD (S/P/Bld) [Vol rate/Area] 43 mL/min/{1.73_m2} Low >60 [facility] Comment on above: mL/min/1.73m2 CKD-EP I Creatinine Equation (2020) Potassium measurement (mass/ volume)Ordered By: Floyd Ricketts on 03-17-2025 Potassium (Unsp spec) [Mass/Vol] 3.7 mmol/L 3.3-5.1 [facility] Serum creatinine measurement (mass/volume)Ordered By: Floyd Ricketts on 03-17-2025 Creatinine [Mass/Vol] 1.67 mg/dL High 0.70-1.20 [facility] Serum glucose measurement (m ass/volume)Ordered By: Floyd Ricketts on 03-17-2025 Glucose [Mass/Vol] 107 mg/dL High 70-99 [facility] Serum or plasma calcium nori urement (mass/volume)Ordered By: Floyd Ricketts on 03-17-2025 Calcium [Mass/Vol] 9.9 mg/dL 7.6-11.0 [facility] Serum or plasma urea nitroge n measurement (mass/volume)Ordered By: Floyd Ricketts on 03-17-2025 Urea nitrogen [Mass/Vol] 43 mg/dL High 4-19 [facility] Sodium levelOrdered By: Floyd Ricketts on 03-17-2025 Sodium [Moles/Vol] 141 mmol/L 133-145 [facility] Anion gap in Serum or Plasma Ordered By: Floyd Ricketts on 02-26-2025 Anion gap [Moles/Vol] 16 mmol/L High 5-15 [facility] BUN/creatinine ratioOrdered By: Floyd Ricketts on 02-26-2025 Urea nitrogen/Creatinine [Mass ratio] 31.0 mg/mg High 10-20 [facility] Basic Metabolic Profile (BMP )on 02-26-2025 BUN/CRE 31.0 RATIO High 10-20 [facility] Comment on above: Performed By: #### L 501.9520, L503.7505, L500.4050 #### [facility] [address] [place], [address] Calcium [Mass/Vol] 10.2 mg/dL Normal 7.6-11.0 [facility] Comment on above: Performed By: #### L [id number], L503.7505, [id number] #### [facility] [address] [place], [address] Chloride [Moles/Vol] 99 mmol/L Normal 98-108 [facility] Comment on above: Performed By: #### L [id number], [id number], [id number] #### [facility] [address] [place], [address] CO2 [Moles/Vol] 26.4 mmol/L Normal 21.0-32.0 [facility] Comment on above: Performed By: #### L [id number], [id number], [id number] #### [facility] [address] [place], [address] Creatinine [Mass/Vol] 1.77 mg/dL High 0.70-1.20 [facility] Comment on above: Performed By: #### L [id number], [id number], [id number] #### [facility] [address] [place], [address] GAP 16 High 5-15 [facility] Comment on above: Performed By: #### L [id number], [id number], [id number] #### [facility] [address] [place], [address] GFR/1.73 sq M.predicted among non-blacks MDRD (S/P/Bld) [Vol rate/Area] 40 mL/min/{1.73_m2} Low >60 [facility] Comment on above: Result Comment: mL/m in/1.73m2 CKD-EPI Creatinine Equation (2020) Performed By: #### L [id number], [id number], [id number] #### [facility] [address] [place], [address] Glucose [Mass/Vol] 175 mg/dL High 70-99 [facility] Comment on above: Performed By: #### L [id number], [id number], [id number] #### [facility] [address] [place], [address] Potassium [Moles/Vol] 4.2 mmol/L Normal 3.3-5.1 [facility] Comment on above: Performed By: #### L [id number], [id number], [id number] #### [facility] [address] [place], [address] Sodium [Moles/Vol] 142 mmol/L Normal 133-145 [facility] Comment on above: Performed By: #### L [id number], [id number], [id number] #### [facility] [address] [place], [address] Urea nitrogen [Mass/Vol] 55 mg/dL High 4-19 [facility] Comment on above: Performed By: #### L [id number], [id number], [id number] #### [facility] [address] [place], [address] Carbon dioxide, total [Moles /volume] in Central venous bloodOrdered By: Floyd Ricketts on 02-26-2025 CO2 [Moles/Vol] 26.4 mmol/L 21.0-32.0 [facility] Chloride assayOrdered By: Michael Ricketts on 02-26-2025 Chloride [Moles/Vol] 99 mmol/L 98-108 [facility] Glomerular filtration rate ( GFR) estimation/1.73 sq m using serum, plasma, or whole bOrdered By: Floyd Ricketts on 02-26-2025 GFR/1.73 sq M.predicted among non-blacks MDRD (S/P/Bld) [Vol rate/Area] 40 mL/min/{1.73_m2} Low >60 [facility] Comment on above: mL/min/1.73m2 CKD-EP I Creatinine Equation (2020) Potassium measurement (mass/ volume)Ordered By: Floyd Ricketts on 02-26-2025 Potassium (Unsp spec) [Mass/Vol] 4.2 mmol/L 3.3-5.1 [facility] Serum creatinine measurement (mass/volume)Ordered By: Floyd Ricketts on 02-26-2025 Creatinine [Mass/Vol] 1.77 mg/dL High 0.70-1.20 [facility] Serum glucose measurement (m ass/volume)Ordered By: Floyd Ricketts on 02-26-2025 Glucose [Mass/Vol] 175 mg/dL High 70-99 [facility] Serum or plasma calcium nori urement (mass/volume)Ordered By: Floyd Ricketts on 02-26-2025 Calcium [Mass/Vol] 10.2 mg/dL 7.6-11.0 [facility] Serum or plasma urea nitroge n measurement (mass/volume)Ordered By: Floyd Ricketts on 02-26-2025 Urea nitrogen [Mass/Vol] 55 mg/dL High 4-19 [facility] Sodium levelOrdered By: Floyd Ricketts on 02-26-2025 Sodium [Moles/Vol] 142 mmol/L 133-145 [facility] Anion gap in Serum or Plasma Ordered By: Floyd Ricketts on 01-01-2025 Anion gap [Moles/Vol] 13 mmol/L 5-15 [facility] BUN/creatinine ratioOrdered By: Floyd Ricketts on 01-01-2025 Urea nitrogen/Creatinine [Mass ratio] 18.5 mg/mg 10-20 [facility] Bilirubin, totalOrdered By: Floyd Ricketts on 01-01-2025 Bilirubin [Mass/Vol] 0.23 mg/dL 0.00-1.30 [facility] Carbon dioxide, total [Moles /volume] in Central venous bloodOrdered By: Floyd Ricketts on 01-01-2025 CO2 [Moles/Vol] 25.0 mmol/L 21.0-32.0 [facility] Chloride assayOrdered By: Michael Ricketts on 01-01-2025 Chloride [Moles/Vol] 103 mmol/L 98-108 [facility] Comprehensive Metabolic Prof ilon 01-01-2025 Albumin [Mass/Vol] 3.9 g/dL Normal 3.4-4.8 [facility] Comment on above: Performed By: #### L [id number], [id number], L500.4050 #### [facility] [address] [place], [address] Albumin/Globulin [Mass ratio] 1.2 {ratio} Normal 0.9-2.4 [facility] Comment on above: Performed By: #### L [id number], [id number], [id number] #### [facility] [address] [place], [address] ALK PHOS 78 U/L Normal 40-129 [facility] Comment on above: Performed By: #### L [id number], [id number], [id number] #### [facility] [address] [place], [address] ALT [Catalytic activity/Vol] 15 U/L Normal <=46 [facility] Comment on above: Performed By: #### L [id number], [id number], [id number] #### [facility] [address] [place], [address] AST [Catalytic activity/Vol] 18 U/L Normal <=37 [facility] Comment on above: Performed By: #### L [id number], [id number], [id number] #### [facility] [address] [place], [address] Bilirubin [Mass/Vol] 0.23 mg/dL Normal 0.00-1.30 [facility] Comment on above: Performed By: #### L [id number], [id number], [id number] #### [facility] [address] [place], [address] BUN/CRE 18.5 RATIO Normal 10-20 [facility] Comment on above: Performed By: #### L [id number], [id number], [id number] #### [facility] [address] [place], [address] Calcium [Mass/Vol] 9.8 mg/dL Normal 7.6-11.0 [facility] Comment on above: Performed By: #### L [id number], L503.7505, [id number] #### [facility] [address] [place], [address] Chloride [Moles/Vol] 103 mmol/L Normal 98-108 [facility] Comment on above: Performed By: #### L [id number], [id number], [id number] #### [facility] [address] [place], [address] CO2 [Moles/Vol] 25.0 mmol/L Normal 21.0-32.0 [facility] Comment on above: Performed By: #### L [id number], [id number], [id number] #### [facility] [address] [place], [address] Creatinine [Mass/Vol] 0.85 mg/dL Normal 0.70-1.20 [facility] Comment on above: Performed By: #### L [id number], [id number], [id number] #### [facility] [address] [place], [address] GAP 13 Normal 5-15 [facility] Comment on above: Performed By: #### L [id number], L503.7505, L500.4050 #### [facility] [address] [place], [address] GFR/1.73 sq M.predicted among non-blacks MDRD (S/P/Bld) [Vol rate/Area] 91 mL/min/{1.73_m2} Normal >60 [facility] Comment on above: Result Comment: mL/m in/1.73m2 CKD-EPI Creatinine Equation (2020) Performed By: #### L [id number], L503.7505, L500.4050 #### [facility] [address] [place], [address] Globulin (S) [Mass/Vol] 3.2 g/dL Normal 2.2-4.2 [facility] Comment on above: Performed By: #### L [id number], L503.7505, L500.4050 #### [facility] [address] [place], [address] Glucose [Mass/Vol] 143 mg/dL High 70-99 [facility] Comment on above: Performed By: #### L [id number], L503.7505, L500.4050 #### [facility] [address] [place], [address] Potassium [Moles/Vol] 4.0 mmol/L Normal 3.3-5.1 [facility] Comment on above: Performed By: #### L [id number], L503.7505, L500.4050 #### [facility] [address] [place], [address] Sodium [Moles/Vol] 141 mmol/L Normal 133-145 [facility] Comment on above: Performed By: #### L [id number], L503.7505, L500.4050 #### [facility] [address] [place], [address] T PROT 7.0 g/dL Normal 5.9-8.4 [facility] Comment on above: Performed By: #### L [id number], L503.7505, L500.4050 #### [facility] [address] [place], [address] Urea nitrogen [Mass/Vol] 16 mg/dL Normal - [facility] Comment on above: Performed By: #### L [id number], L503.7505, L500.4050 #### [facility] [address] [place], [address] Glomerular filtration rate ( GFR) estimation/1.73 sq m using serum, plasma, or whole bOrdered By: Floyd Ricketts on 01-01-2025 GFR/1.73 sq M.predicted among non-blacks MDRD (S/P/Bld) [Vol rate/Area] 91 mL/min/{1.73_m2} >60 [facility] Comment on above: mL/min/1.73m2 CKD-EP I Creatinine Equation (2020) L503.7505on 01-01-2025 Natriuretic peptide B (Bld) [Mass/Vol] 38 pg/mL Normal <=900 [facility] Comment on above: Result Comment: Hear t Failure Unlikely: < 300 pg/mL Heart Failure Likely < 50 Years: > 450 pg/mL 50-75 Years: > 900 pg/mL >75 Years: > 1800 pg/mL Performed By: #### L [id number], L503.7505, L500.4050 #### [facility] [address] [place], [address] Laboratory - Chemistry and C hemistry - challengeOrdered By: Floyd Ricketts on 01-01-2025 AST [Catalytic activity/Vol] 18 U/L <38 [facility] Natriuretic peptide.B prohor avery N-Terminal [Mass/volume] in Serum or PlasmaOrdered By: Floyd Ricketts on 01-01-2025 Natriuretic peptide.B prohormone N-Terminal [Mass/Vol] 38 pg/mL <900 [facility] Comment on above: Heart Failure Unlike ly: < 300 pg/mLHeart Failure Likely< 50 Years: > 450 pg/mL50-75 Years: > 900 pg/mL>75 Years: > 1800 pg/mL Potassium measurement (mass/ volume)Ordered By: Floyd Ricketts on 01-01-2025 Potassium (Unsp spec) [Mass/Vol] 4.0 mmol/L 3.3-5.1 [facility] Serum creatinine measurement (mass/volume)Ordered By: Floyd Ricketts on 01-01-2025 Creatinine [Mass/Vol] 0.85 mg/dL 0.70-1.20 [facility] Serum globulin measurementOr dered By: Floyd Ricketts on 01-01-2025 Globulin (S) [Mass/Vol] 3.2 g/dL 2.2-4.2 [facility] Serum glucose measurement (m ass/volume)Ordered By: Floyd Ricketts on 01-01-2025 Glucose [Mass/Vol] 143 mg/dL High 70-99 [facility] Serum or plasma alanine lopez otransferase (ALT) measurementOrdered By: Floyd Ricketts on 01-01-2025 ALT [Catalytic activity/Vol] 15 U/L <47 [facility] Serum or plasma albumin nori urement (mass/volume)Ordered By: Floyd Ricketts on 01-01-2025 Albumin [Mass/Vol] 3.9 g/dL 3.4-4.8 [facility] Serum or plasma albumin/glob ulin mass ratioOrdered By: Floyd Ricketts on 01-01-2025 Albumin/Globulin [Mass ratio] 1.2 {ratio} 0.9-2.4 [facility] Serum or plasma alkaline holly sphatase measurementOrdered By: Floyd Ricketts on 01-01-2025 ALP [Catalytic activity/Vol] 78 U/L 40-129 [facility] Serum or plasma calcium nori urement (mass/volume)Ordered By: Floyd Ricketts on 01-01-2025 Calcium [Mass/Vol] 9.8 mg/dL 7.6-11.0 [facility] Serum or plasma urea nitroge n measurement (mass/volume)Ordered By: Floyd Ricketts on 01-01-2025 Urea nitrogen [Mass/Vol] 16 mg/dL 4-19 [facility] Sodium levelOrdered By: Floyd Ricketts on 01-01-2025 Sodium [Moles/Vol] 141 mmol/L 133-145 [facility] TSH DL <= 0.005 mIU/L QnOrde red By: Floyd Ricketts on 01-01-2025 TSH Qn 2.320 uIU/mL 0.300-4.200 [facility] Thyroid Stim Hormone (TSH)on 01-01-2025 TSH 2.320 uIU/mL Normal 0.300-4.200 [facility] Comment on above: Performed By: #### L [id number], L503.7505, L500.4050 #### [facility] [address] [place], [place], [id number] Total proteinOrdered By: Shalonda ga Jamarcus on 01-01-2025 Protein [Mass/Vol] 7.0 g/dL 5.9-8.4 [facility] Culture, Anaerobic Any Sourc xu 10-19-2024 CUAN L LAT. FOOT ULCER Studies have confirmed that Anaerobic Gram Positive Cocci are routinely SUSCEPTABLE to Penicillin and generally susceptible to Beta-lactams and Beta-lactamase inhibitors, Cephalosporins, Carbapenems and Metronidazole. They are showing increased RESISTANCE to Clindamycin Anaerobic cocci Normal [facility] Comment on above: Performed By: #### L 501.080 #### [facility] [address] [place], [address] Gram Stainon 10-17-2024 GS L LAT. FOOT ULCER Gram Stain 1+ Epithelial cells Rare Gram positive cocci No White Blood Cells Normal [facility] Comment on above: Performed By: #### L 501.080 #### [facility] [address] [place], [address] Wound Cultureon 10-17-2024 WC L LAT. FOOT ULCER Copy of report sent to Infection Control Printer [id number] 10/17/24 0823 BLUCAS. Meth. resistant Staph. aureus Amount Growth 3+ [...] S Vancomycin Islt PASHA <=0.5 S Normal [facility] Comment on above: Performed By: #### L 501.080 #### [facility] [address] [place], [address] Anaerobic cultureOrdered By: Felipe Barnett on 10-15-2024 Bacteria identified Anaer cx Nom (Unsp spec) Anaerobic cocci Abnormal [facility] Gram stainOrdered By: Antonia Barnett on 10-15-2024 Microscopic observation Gram stain Nom (Unsp spec) [facility] Routine wound cultureOrdered By: Felipe Barnett on 10-15-2024 Microbial culture, routine Meth. resistant Staph. aureus Abnormal [facility] Calculated very low density lipoprotein (VLDL) cholesterol measurementOrdered By: Floyd Ricketts on 10-02-2024 Calculated very low density lipoprotein (VLDL) cholesterol measurement 22 mg/dL 5-40 [facility] VLDL Cholesterol 22 mg/dL 5-40 [facility] Hemoglobin A1con 10-02-2024 HbA1c (Bld) [Mass fraction] 6.6 % Normal <=5.6 [facility] Comment on above: Performed By: #### L 501.9985, L501.9520, L500.4100 #### [facility] [address] [place], [address] Hemoglobin A1c percentageOrd ered By: Floyd Ricketts on 10-02-2024 HbA1c (Bld) [Mass fraction] 6.6 % >5.7 [facility] LDL calc ser/plasOrdered By: Floyd Ricketts on 10-02-2024 Cholesterol in LDL [Mass/Vol] 21 mg/dL [facility] Comment on above: Qiwhgqgasv=086-660 m g/dL & Higher Iges=667 mg/dL or greater LDL Cholesterol, Calculated 21 mg/dL [facility] Comment on above: Sehnjnjmev=820-474 m g/dL & Higher Cpyd=102 mg/dL or greater Lipid Profileon 10-02-2024 CHOL:HDL 2.45 Normal [facility] Comment on above: Performed By: #### L 501.080 #### [facility] [address] [place], [address] Cholesterol [Mass/Vol] 73 mg/dL Normal <=200 [facility] Comment on above: Result Comment: Chol esterol level, Desirable <200 mg/dL Borderline high cholesterol 200-239 mg/dL High cholesterol >=240 mg/dL Recommendations of the NCEP Adult Treatment Panel for the following risk-cutoff thresholds for the [place] population. Performed By: #### L 501.080 #### [facility] [address] [place], [address] Cholesterol in HDL [Mass/Vol] 30 mg/dL Low [facility] Comment on above: Result Comment: Karen onal Cholesterol Education Program (NCEP) guidelines: <40 mg/dL: Low HDL-cholesterol (major risk factor for CHD) >= 60 mg/dL: High HDL-cholesterol (negative risk factor for CHD) HDL-cholesterol is affected by a number of factors, e.g. smoking, exercise, hormones, sex and age. Performed By: #### L 501.080 #### [facility] [address] [place], [address] Cholesterol in LDL [Mass/Vol] 21 mg/dL Normal [facility] Comment on above: Result Comment: Bord ygxehk=306-914 mg/dL Higher Kuxe=492 mg/dL or greater Performed By: #### L 501.080 #### [facility] [address] [place], [address] Cholesterol in VLDL [Mass/Vol] 22 mg/dL Normal 5-40 [facility] Comment on above: Performed By: #### L 501.080 #### [facility] [address] [place], [place], [address] Triglyceride [Mass/Vol] 111 mg/dL Normal [facility] Comment on above: Result Comment: The drugs N-Acetylcysteine and Metamizole may falsely depress this assay. Normal range: <150 mg/dL Borderline High: 150-199 mg/dL High: 200-499 mg/dL Very High: >500 mg/dL Performed By: #### L 501.080 #### [facility] [address] [place], [place], [address] Screening total cholesterol/ high density lipoprotein (HDL) cholesterol ratioOrdered By: Floyd Ricketts on 10-02-2024 Cholesterol.total/Alice sterol in HDL [Mass ratio] 2.45 {ratio} [facility] Serum or plasma cholesterol in HDL measurement (mass/volume)Ordered By: Floyd Ricketts on 10-02-2024 Cholesterol in HDL [Mass/Vol] 30 mg/dL Low >40 [facility] Comment on above: National Cholesterol Education Program (NCEP) guidelines:<40 mg/dL: Low HDL-cholesterol (major risk factor for CHD)>= 60 mg/dL: High HDL-cholesterol (negative risk factor for CHD)HDL-cholesterol is affected by a number of factors, e.g. smoking, exercise, hormones, sex and age. Serum or plasma cholesterol measurement (mass/volume)Ordered By: Floyd Ricketts on 10-02-2024 Cholesterol [Mass/Vol] 73 mg/dL <201 [facility] Comment on above: Cholesterol level, D esirable <200 mg/dLBorderline high cholesterol 200-239 mg/dLHigh cholesterol >=240 mg/dLRecommendations of the NCEP Adult Treatment Panel for the following risk-cutoff thresholds for the [place] population. TSH DL <= 0.005 mIU/L QnOrde red By: Floyd Ricketts on 10-02-2024 Thyroid Stimulating Hormone (TSH) 0.788 uIU/mL 0.300-4.200 [facility] TSH Qn 0.788 uIU/mL 0.300-4.200 [facility] Thyroid Stim Hormone (TSH)on 10-02-2024 TSH 0.788 uIU/mL Normal 0.300-4.200 [facility] Comment on above: Performed By: #### L 501.080 #### [facility] [address] [place], [address] Triglycerides measurementOrd ered By: Floyd Ricketts on 10-02-2024 Triglyceride [Mass/Vol] 111 mg/dL <199 [facility] Comment on above: The drugs N-Acetylcy steine and Metamizole may falsely depress this assay. Normal range: <150 mg/dLBorderline High: 150-199 mg/dLHigh: 200-499 mg/dLVery High: >500 mg/dL [id number] 08-18-2024 [facility] Misc. COMMENT Normal . [facility] Comment on above: Order Comment: [id number] 1WOUND CULTURE Result Comment: Test Ordered: [id number] Anaerobic/Aerobic/Gram Stain Anaerobic Culture Note: CB Final [...] . Rare gram negative rods. Performed at: [address] [id number] Founder And President: Aiden Whitfield PhD, Phone: [phone] Performed By: #### L 501.080 #### [facility] [address] [facility] [place], [address] Acid Fast Bacillus Cultureon 07-29-2024 [facility] Comments: BONE OF LE FT FIFTH METATARSAL TESTING PERFORMED AT [facility]. ORIGINAL REPORT ON FILE IN LAB CONTAINS ADDITIONAL TEST SITE INFORMATION. Culture, Acid Fast NO ACID-FAST BACILLI ISOLATED AFTER 6 WEEKS. Normal [facility] Comment on above: Performed By: #### L 501.080 #### [facility] [address] [place], [address] Acid Fast Bacillus Smear/Flu oron 07-29-2024 [facility] Comments: BONE OF LE FT FIFTH METATARSAL [facility] ORIGINAL REPORT ON FILE IN LAB CONTAINS ADDITIONAL TEST SITE INFORMATION. Smear, Acid Fast Tissue Grinding Smear: Negative Normal [facility] Comment on above: Performed By: #### L 501.080 #### [facility] [address] [place], [place], [id number] Culture, Fungus 8482on 07-29 [facility] Comments: CLEARANCE FRAGMENT OF LEFT FIFTH METATARSAL BONE Is this test to exclude patient from TB Isolation? N TESTING PERFORMED AT [facility]. ORIGINAL REPORT ON FILE IN LAB CONTAINS ADDITIONAL TEST SITE INFORMATION. CUF No yeast or mold isolated after 4 weeks. Normal [facility] Comment on above: Performed By: #### L 501.9985, L501.9520, L500.4100 #### [facility] [address] [place], [place], [address] Culture, Anaerobic Any Sourc xu 07-20-2024 CUAN [...] Anaerobic cocci Prevotella timonesis Beta Lactamase-Reportable Positive Normal [facility] Comment on above: Performed By: #### L 501.9985, L501.9520, L500.4100 #### [facility] [address] [place], [address] Wound Cultureon 07-18-2024 WC PER ORDER-L FOOT ULC ER #2 Organism is too fastidious for routine susceptibility studies. Pseudomonas aeruginosa Amount Growth 3+ Rothia kristinae Rothia kristinae Pseudomonas aeruginosa: REACTION Cefepime Islt PASHA 2 S Ciprofloxacin Islt PASHA 0.25 levoFLOXacin Islt PASHA 1 S Meropenem Islt PASHA 0.5 S Pip+Tazo Islt PASHA 8 S Normal [facility] Comment on above: Performed By: #### L 501.080 #### [facility] [address] [place], [address] Bacteria identified Anaer cx Nom (Unsp spec)Ordered By: Felipe Barnett on 07-15-2024 Anaerobic Culture Anaerobic cocci Abnormal [facility] Anaerobic Culture Prevotella timonesis Abnormal [facility] Culture, Fungus 8482on 07-15 [facility] Comments: BONE OF LE FT FIFTH METATARSAL Is this test to exclude patient from TB Isolation? N TESTING PERFORMED AT [facility]. ORIGINAL REPORT ON FILE IN LAB CONTAINS ADDITIONAL TEST SITE INFORMATION. CUF No yeast or mold isolated after 4 weeks. Normal [facility] Comment on above: Performed By: #### L 501.080 #### [facility] [address] [place], [address] Fungus Stain 8136on 07-15-20 24 [facility] Comments: BONE OF LE FT FIFTH METATARSAL Is this test to exclude patient from TB Isolation? N TESTING PERFORMED AT [facility]. ORIGINAL REPORT ON FILE IN LAB CONTAINS ADDITIONAL TEST SITE INFORMATION. Fungus Stain No fungus observed. Normal [facility] Comment on above: Performed By: #### L 501.080 #### [facility] [address] [facility] [place], [address] Gram Stainon 07-15-2024 GS PER ORDER-L FOOT ULC ER Gram Stain 1+ Gram negative rods 2+ Red Blood Cells 1+ White Blood Cells No Epithelial cells Normal [facility] Comment on above: Performed By: #### L 501.080 #### [facility] [address] [facility] [place], [address] Gram stainOrdered By: Antonia Barnett on 07-15-2024 Microscopic observation Gram stain Nom (Unsp spec) [facility] Routine wound cultureOrdered By: Felipe Barnett on 07-15-2024 Wound Culture Pseudomonas aeruginosa Abnormal [facility] Wound Culture Rothia kristinae Abnormal [facility] Acid Fast Bacillus Cultureon 07-10-2024 tAFBC TISSUE/ TATARSAL Results called on 06/30/24-1352 by VIRGINIE to [phone]. POSITIVE ABNORMAL ACID FAST BACILLI HAVE BEEN DETECTED IN CULTURE AT 3 WEEKS. Mycobacterium Spec Cult Mycobacterium Spec Cult AFB ORGANISM ID BY PCR M TUBERCULOSIS COMPLEX NEGATIVE M AVIUM COMPLEX POSITIVE ( IF CLINICAL CONSIDERATIONS WARRANT SUSCEPTIBILITY TESTING, CONTACT THE 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 DEPARTMENT [phone] ) REFLEX ID BY MALDI NOT INDICATED [...] been changed. 07/10/24 1042 by VIRGINIE Normal [facility] Comment on above: Performed By: #### L 501.9985, L501.9520, L500.4100 #### [facility] [address] [place], [place], [address] Bedside Glucoseon 07-01-2024 FINGERSTICK GLU 135 mg/dL High 74-106 [facility] Comment on above: Result Comment: RODERICK GEMENT OF PATIENT CARE PER NURSING PROTOCOL Performed By: #### L 501.080 #### [facility] [address] [place], [address] Acid Fast Bacillus Smear/Flu oron 06-30-2024 [facility] TISSUE/ TATARSAL Results called on 06/30/242 by VIRGINIE to [phone]. TESTING PERFORMED AT [facility]. ORIGINAL REPORT ON FILE IN LAB CONTAINS ADDITIONAL TEST SITE INFORMATION. Smear, Acid Fast Tissue Grinding Smear: Negative [facility] Comment on above: Performed By: #### L 501.9985, L596.9520, L500.4100 #### [facility] [address] [place] [address]. [place], [place], [id number] Fungus Stain 8136on 06-30-20 [facility] Comments: CLEARANCE FRAGMENT OF LEFT FIFTH METATARSAL BONE Is this test to exclude patient from TB Isolation? N TESTING PERFORMED AT [facility]. ORIGINAL REPORT ON FILE IN LAB CONTAINS ADDITIONAL TEST SITE INFORMATION. Fungus Stain No fungus observed. Normal [facility] Comment on above: Performed By: #### L 501.9985, L501.9520, L500.4100 #### [facility] [address] [place], [place], [address] Glucose measurement at [facility] deOrdered By: Felipe Barnett on 06-25-2024 Bedside Glucose (Misc Panel) 135 mg/dL High 74-106 [facility] Comment on above: MANAGEMENT OF PATIEN T CARE PER NURSING PROTOCOL Wound Ctr History AND Physic bao 06-25-2024 Wound Ctr History & Physical [facility] [address] [place] [address] H P Exam - Wound Care 06/25/24 0910 MR#: [id number] Acct: [id number] Name: EMILEE ARAGON Rep #: [id number] : 1950 74 From: Felipe Barnett DPM PCP: Dr. Floyd Ricketts, Status:REG RCR Location: History of Present Illness Date of Service: 06/25/24 Chief Complaint: right great toe ulcer healed History of Wound: Mr. Aragon is a 74-year-old diabetic male seen at the wound care center today for follow-up evaluation of status post fifth ray resection with wound VAC application. Patient currently residing in a intermediate facility. He is doing well with dressing [...] wound VAC changes as scheduled at the intermediate facility. His blood sugar has been well-controlled. His last HbA1c was 7.5% while in the hospital. He is getting PICC line antibiotics managed by infectious disease. He denies any trauma. Denies constitutional symptoms. He does admit to some soreness of throat and has tested positive today for COVID. No other pedal complaints at this time. [facility] Medical History (Updated 06/25/24 @ 09:[address] Felipe Barnett, MARIA ESTHERM) Other specified peripheral vascular diseases Wears glasses [...] DAILY blood thinner 04/18/21 06/10/24 History geriatric swrhlvas-cxre-dulk 1 tab PO DAILY supplement 04/18/21 06/10/24 [...] No drainage (more content not included)... Normal [facility] Bedside Glucoseon 06-19-2024 FINGERSTICK GLU 255 mg/dL High [address] [place] [address] Comment on above: Result Comment: RODERICK GEMENT OF PATIENT CARE PER NURSING PROTOCOL Performed By: #### L 501.080 #### [facility] [address] [facility] [address] FINGERSTICK GLU 311 mg/dL High [address] [place] [address] Comment on above: Result Comment: RODERICK GEMENT OF PATIENT CARE PER NURSING PROTOCOL Performed By: #### L 501.9985, L501.9520, L500.4100 #### [facility] [address] [facility] [address] FINGERSTICK GLU 258 mg/dL High [address] [place] [address] Comment on above: Result Comment: RODERICK GEMENT OF PATIENT CARE PER NURSING PROTOCOL Performed By: #### L 501.080 #### [facility] [address] [facility] [address] Glucose measurement at [facility] deOrdered By: Floyd Shah on 06-19-2024 Bedside Glucose ([facility] Panel) 255 mg/dL High [facility]106 [facility] Comment on above: MANAGEMENT OF PATIEN T CARE PER NURSING PROTOCOL Bedside Glucoseon 06-18-2024 FINGERSTICK GLU 257 mg/dL High -106 [facility] Comment on above: Result Comment: RODERICK GEMENT OF PATIENT CARE PER NURSING PROTOCOL Performed By: #### L 501.080 #### [facility] [address] [place], [address] FINGERSTICK GLU 232 mg/dL High [address] Comment on above: Result Comment: RODERICK GEMENT OF PATIENT CARE PER NURSING PROTOCOL Performed By: #### L 501.080 #### [facility] [address] [place], [address] FINGERSTICK GLU 253 mg/dL High [address] [place] [address] Comment on above: Result Comment: RODERICK GEMENT OF PATIENT CARE PER NURSING PROTOCOL Performed By: #### L 501.9520, L503.7505, L500.4050 #### [facility] [address] [place], [address] FINGERSTICK GLU 216 mg/dL High [address] [place] [address] Comment on above: Result Comment: RODERICK GEMENT OF PATIENT CARE PER NURSING PROTOCOL Performed By: #### L 501.080 #### [facility] [address] [place], [address] Wound Cultureon 06-18-2024 WC BONE OF LEFT [...] R Vancomycin Islt PASHA 2 S Normal [facility] Comment on above: Performed By: #### L 501.080 #### [facility] [address] [facility] [place], [address] 12 Lead EKGon 06-17-2024 12 Lead EKG [facility] Cardiovascular Services [address] [place] [address] 12 Lead EKG 06/17/24 0538 MR#: [id number] Acct: [id number] Name: EMILEE ARAGON Rep #: [id number] : 1950 74 From: Shun Gamble MD Attending Dr: Dr. Floyd Shah, DO Status: A DM IN Ordering Dr: Tyson Kunz MD Date: 06/17/24 Location: [facility] Sex: M C Admitted: 06/10/24 [...] change was found Confirmed by Shun Gamble ([id number]), video effects editor TIERNEY DAUGHERTY ([id number]) on 06/17/2024 7:54:47 AM Referred By: Confirmed By: Shun Gamble 06/17/24 0754 Date Shun Gamble MD CC: Dr. Tyson Kunz MD; Dr. Floyd Ricketts DO; Dr. Floyd Shah DO Signed Normal [facility] ACT Activated Clotting Timeo n 06-17-2024 ACTk CLOT TIME 227 sec High 74-137 [facility] Comment on above: Performed By: #### L 501.080 #### [facility] [address] [place], [address] ACTk CLOT TIME 239 sec High 74-137 [facility] Comment on above: Performed By: #### L 501.080 #### [facility] [address] [place], [address] Activated clotting timeOrder ed By: Floyd Shah on 06-17-2024 Activated Clotting Time 227 sec High 74-137 [facility] Bedside Glucoseon 06-17-2024 FINGERSTICK GLU 214 mg/dL High 74-106 [facility] Comment on above: Result Comment: RODERICK GEMENT OF PATIENT CARE PER NURSING PROTOCOL Performed By: #### L 501.080 #### [facility] [address] [place], [address] FINGERSTICK GLU 194 mg/dL High -106 [facility] Comment on above: Result Comment: RODERICK GEMENT OF PATIENT CARE PER NURSING PROTOCOL Performed By: #### L 501.080 #### [facility] [address] [place], [address] FINGERSTICK GLU 198 mg/dL High 74-106 [facility] Comment on above: Result Comment: RODERICK GEMENT OF PATIENT CARE PER NURSING PROTOCOL Performed By: #### L 503.6005 #### [facility] [address] [place], [address] FINGERSTICK GLU 202 mg/dL High 74-106 [facility] Comment on above: Result Comment: RODERICK GEMENT OF PATIENT CARE PER NURSING PROTOCOL Performed By: #### L 501.080 #### [facility] [address] [place], [address] Operative Reporton 4 Operative Report [facility] Medical Records Department [address] [place] [address] Operative Report 06/17/24 1631 MR#: [id number] Acct: [id number] Name: EMILEE ARAGON Rep #: [id number] : 1950 74 From: Tyson Kunz MD PCP: Dr. Floyd Ricketts, DO Status:ADM IN Location: [place] [address] Operative Report (Standard) Operative Information Surgery/Procedure Performed: [...] correct patient procedure site patient taken to [facility] Line Technician where he was positioned prepped and draped [...] the micropuncture sheath exchanged for short 7 [place] sheath. Through the 7 [place] sheath and Omni Flush catheter was advanced [...] then readvanced and the catheter and 7 [place] sheath exchanged for 7 [place] 45 destination sheath advanced up and over [...] was c (more content not included)... Normal [facility] Basic Metabolic Profile (BMP )on 06-16-2024 BUN/CRE 16.5 RATIO Normal 10-20 [facility] Comment on above: Performed By: #### L 503.6005 #### [facility] [address] [place], [address] CA,Total 9.3 mg/dL Normal 8.5-10.1 [facility] Comment on above: Performed By: #### L 503.6005 #### [facility] [address] [place], [address] Chloride [Moles/Vol] 104 mmol/L Normal 98-107 [facility] Comment on above: Performed By: #### L 503.6005 #### [facility] [address] [place], [address] CO2 [Moles/Vol] 26.0 mmol/L Normal 21.0-32.0 [facility] Comment on above: Performed By: #### L 503.6005 #### [facility] [address] [place], [address] Creatinine [Mass/Vol] 0.73 mg/dL Normal 0.70-1.30 [facility] Comment on above: Result Comment: The validity of the calculated GFR GFRAA in patients over 70 years has not been determined. Clinical correlation is essential. Performed By: #### L 503.6005 #### [facility] [address] [place], [address] ECRCL 116.35 ml/min Normal [facility] Comment on above: Performed By: #### L 503.6005 #### [facility] [address] [place], [address] EST GFR - AA 136 mL/min Normal >60 [facility] Comment on above: Result Comment: Afri can Panamanian GFR Calc Performed By: #### L 503.6005 #### [facility] [address] [place], [address] GAP 7 Normal 5-15 [facility] Comment on above: Performed By: #### L 503.6005 #### [facility] [address] [place], [address] GFR/1.73 sq M.predicted among non-blacks MDRD (S/P/Bld) [Vol rate/Area] 112 mL/min/{1.73_m2} Normal >60 [facility] Comment on above: Result Comment: Non- GFR Calc Performed By: #### L 503.6005 #### [facility] [address] [place], [address] Glucose [Mass/Vol] 209 mg/dL High 74-106 [facility] Comment on above: Result Comment: Gluc ose result greater than or equal to 200 mg/dL suggests DIABETES MELLITUS per A.D.A. criteria. Performed By: #### L 503.6005 #### [facility] [address] [place], [address] Potassium [Moles/Vol] 4.0 mmol/L Normal 3.5-5.1 [facility] Comment on above: Performed By: #### L 503.6005 #### [facility] [address] [place], [address] Sodium [Moles/Vol] 137 mmol/L Normal 136-145 [facility] Comment on above: Performed By: #### L 503.6005 #### [facility] [address] [place], [address] Urea nitrogen [Mass/Vol] 12 mg/dL Normal 7-18 [facility] Comment on above: Performed By: #### L 503.6005 #### [facility] [address] [place], [address] Bedside Glucoseon 06-16-2024 FINGERSTICK GLU 307 mg/dL High 74-106 [facility] Comment on above: Result Comment: RODERICK GEMENT OF PATIENT CARE PER NURSING PROTOCOL Performed By: #### L 501.080 #### [facility] [address] [place], [address] FINGERSTICK GLU 248 mg/dL High 74-106 [facility] Comment on above: Result Comment: RODERIKC GEMENT OF PATIENT CARE PER NURSING PROTOCOL Performed By: #### L 501.080 #### [facility] [address] [place], [address] FINGERSTICK GLU 252 mg/dL High 74-106 [facility] Comment on above: Result Comment: RODERICK GEMENT OF PATIENT CARE PER NURSING PROTOCOL Performed By: #### L 501.080 #### [facility] [address] [place], [address] FINGERSTICK GLU 198 mg/dL High 74-106 [facility] Comment on above: Result Comment: RODERICK GEMENT OF PATIENT CARE PER NURSING PROTOCOL Performed By: #### L 501.080 #### [facility] [address] [place], [address] Blood urea nitrogen (BUN)/cr eatinine ratioOrdered By: Tyson Alvarez on 06-16-2024 Urea nitrogen/Creatinine [Mass ratio] 16.5 mg/mg 10-20 [facility] Carbon dioxide measurementOr dered By: Tyson Alvarez on 06-16-2024 CO2 [Moles/Vol] 26.0 mmol/L 21.0-32.0 [facility] Chloride measurementOrdered By: Tyson Alvarez on 06-16-2024 Chloride [Moles/Vol] 104 mmol/L 98-107 [facility] Culture, Anaerobic Any Sourc xu 06-16-2024 CUAN [...] melaninogenica Beta Lactamase-Reportable Positive Anaerobic cocci Normal [facility] Comment on above: Performed By: #### L 501.9985, L501.9520, L500.4100 #### [facility] [address] [place], [address] CUAN BONE OF LEFT FIFTH METATARSAL #1 [...] Lactamase-Reportable Positive Clostridium group Anaerobic cocci Normal [facility] Comment on above: Performed By: #### L 501.080 #### [facility] [address] [place], [address] Estimated glomerular filtrat ion rate (GFR) AmericanOrdered By: Tyson Alvarez on 06-16-2024 Estimated GFR (MDRD) Amer 136 mL/min >60 [facility] Comment on above: GFR Calc Estimation of creatinine jonah aranceOrdered By: Tyson Alvarez on 06-16-2024 Estimated Creatinine Clearance Calc 116.35 ml/min [facility] Glomerular filtration rate ( GFR) estimationOrdered By: Tyson Alvarez on 06-16-2024 Estimated GFR (MDRD) Non-Af Amer 112 mL/min >60 [facility] Comment on above: Non- GFR Calc Glucose measurementOrdered B y: Tyson Alvarez on 06-16-2024 Glucose [Mass/Vol] 209 mg/dL High 74-106 [facility] Comment on above: Glucose result great er than or equal to 200 mg/dLsuggests DIABETES MELLITUS per A.D.A. criteria. Potassium measurementOrdered By: Tyson Alvarez on 06-16-2024 Potassium [Moles/Vol] 4.0 mmol/L 3.5-5.1 [facility] Serum anion gap measurementO rdered By: Tyson Alvarez on 06-16-2024 Anion gap [Moles/Vol] 7 mmol/L 5-15 [facility] Serum or plasma calcium nori urement (mass/volume)Ordered By: Tyson Alvarez on 06-16-2024 Calcium [Mass/Vol] 9.3 mg/dL 8.5-10.1 [facility] Serum or plasma creatinine m easurement (mass/volume)Ordered By: Tyson Alvarez on 06-16-2024 Creatinine [Mass/Vol] 0.73 mg/dL 0.70-1.30 [facility] Comment on above: The validity of the calculated GFR & GFRAA in patients over 70 years has not been determined. Clinical correlation is essential. Serum or plasma urea nitroge n measurement (mass/volume)Ordered By: Tyson Alvarez on 06-16-2024 Urea nitrogen [Mass/Vol] 12 mg/dL 7-18 [facility] Sodium levelOrdered By: Tyson Alvarez on 06-16-2024 Sodium [Moles/Vol] 137 mmol/L 136-145 [facility] Bedside Glucoseon 06-15-2024 FINGERSTICK GLU 248 mg/dL High 74-106 [facility] Comment on above: Result Comment: RODERICK SINGLETARY OF PATIENT CARE PER NURSING PROTOCOL Performed By: #### L 501.080 #### [facility] [address] [place], [address] FINGERSTICK GLU 256 mg/dL High 74-106 [facility] Comment on above: Result Comment: RODERICK GEMENT OF PATIENT CARE PER NURSING PROTOCOL Performed By: #### L 501.080 #### [facility] [address] [place], [address] FINGERSTICK GLU 275 mg/dL High 74-106 [facility] Comment on above: Result Comment: RODERICK GEMENT OF PATIENT CARE PER NURSING PROTOCOL Performed By: #### L 501.080 #### [facility] [address] [place], [address] FINGERSTICK GLU 226 mg/dL High -106 [facility] Comment on above: Result Comment: RODERICK GEMENT OF PATIENT CARE PER NURSING PROTOCOL Performed By: #### L 501.080 #### [facility] [address] [place], [address] Culture, [facility] CUAN #1 Studies have [...] cocci Prevotella melaninogenica Beta Lactamase-Reportable Positive Normal [facility] Comment on above: Performed By: #### L 501.080 #### [facility] [address] [place], [address] Culture, Blood (WB)on 2023 CUB Blood cultures x2, from two different sites No growth in 5 days. Normal [facility] Comment on above: Performed By: #### L 501.9985, L501.9520, L500.4100 #### [facility] [address] [place], [address] Bedside Glucoseon 06-14-2024 FINGERSTICK GLU 313 mg/dL [address] Comment on above: Result Comment: RODERICK GEMENT OF PATIENT CARE PER NURSING PROTOCOL Performed By: #### L 501.080 #### [facility] [address] [place], [address] FINGERSTICK GLU 237 mg/dL [address] Comment on above: Result Comment: RODERICK GEMENT OF PATIENT CARE PER NURSING PROTOCOL Performed By: #### L 501.9520, L503.7505, L500.4050 #### [facility] [address] [place], [address] FINGERSTICK GLU 228 mg/dL [address] Comment on above: Result Comment: RODERICK GEMENT OF PATIENT CARE PER NURSING PROTOCOL Performed By: #### L 501.080 #### [facility] [address] [place], [address] FINGERSTICK GLU 210 mg/dL [address] Comment on above: Result Comment: RODERICK GEMENT OF PATIENT CARE PER NURSING PROTOCOL Performed By: #### L 501.080 #### [facility] [address] [place], [address] FINGERSTICK GLU 238 mg/dL [address] Comment on above: Result Comment: RODERICK GEMENT OF PATIENT CARE PER NURSING PROTOCOL Performed By: #### L 503.6005 #### [facility] [address] [place], [address] Vancomycin trough [Mass/Vol] Ordered By: Kyle Rowland on 06-14-2024 Vancomycin Level Trough 17.4 ug/mL High 5.0-15.0 [facility] Comment on above: VANCOMYCIN STANDARED DRUG THERAPY TROUGH LEVEL: 5.0 - 15.0 mg/L VANCOMYCIN HIGH INTENSITY THERAPY TROUGH LEVEL: 15.0 - 20.0 mg/L High Intensity therapy recommended for serious lifethreatening infections include:- Eqvuumbajg-Mijtrocumvpn-Xudutjlfd (Ventilator/Healtcare Associated)-Sepsis PLEASE CONTACT PH[facility]Y SERVICES (#[id number]) FOR INTERPRETATIONOF RESULTS. Vancomycin, Trough Levelon 08-14-2023 VANCO, TROUGH 17.4 ug/mL High 5.0-15.0 [facility] Comment on above: Order Comment: Comme nts: Trough to be drawn 30 mins prior to scheduled [id number] Result Comment: VANC OMYCIN STANDARED DRUG THERAPY TROUGH LEVEL: 5.0 - 15.0 mg/L VANCOMYCIN HIGH INTENSITY THERAPY TROUGH LEVEL: 15.0 - 20.0 mg/L High Intensity therapy recommended for serious life threatening infections include: - Meningitis -Endocarditis -Pneumonia (Ventilator/Healtcare Associated) -Sepsis PLEASE CONTACT PHARMACY SERVICES (#[id number]) FOR INTERPRETATION OF RESULTS. Performed By: #### L 501.080 #### [facility] [address] [place], [address] Wound Cultureon 06-14-2024 Staphylococcus aureu s Amount Growth 3+ Enterococcus [...] S Vancomycin Islt PASHA 1 S Normal [facility] Comment on above: Performed By: #### L 501.080 #### [facility] [address] [place], [address] WC CLEARANCE FRAGMENT O F LEFT FIFTH [...] S Vancomycin Islt PASHA <=0.5 S Normal [facility] Comment on above: Performed By: #### L 501.9985, L501.9520, L500.2350 #### [facility] [address] [place], [place], [id number] Absolute neutrophil countOrd ered By: Tyson Alvarez on 06-13-2024 Neutrophils (Bld) [#/Vol] 8.1 10*3/uL High 2.0-7.7 [facility] Basic Metabolic Profile (BMP )on 06-13-2024 BUN/CRE 17.5 RATIO Normal 10-20 [facility] Comment on above: Performed By: #### L 501.9520, L503.7505, L500.4050 #### [facility] [address] [place], [address] CA,Total 8.9 mg/dL Normal 8.5-10.1 [facility] Comment on above: Performed By: #### L 501.9520, L503.7505, L500.4050 #### [facility] [address] [place], [address] Chloride [Moles/Vol] 105 mmol/L Normal 98-107 [facility] Comment on above: Performed By: #### L 501.9520, L503.7505, L500.4050 #### [facility] [address] [place], [address] CO2 [Moles/Vol] 26.0 mmol/L Normal 21.0-32.0 [facility] Comment on above: Performed By: #### L 501.9520, L503.7505, L500.4050 #### [facility] [address] [place], [address] Creatinine [Mass/Vol] 0.57 mg/dL Low 0.70-1.30 [facility] Comment on above: Result Comment: The validity of the calculated GFR GFRAA in patients over 70 years has not been determined. Clinical correlation is essential. Performed By: #### L 501.9520, L503.7505, L500.4050 #### [facility] [address] [place], [address] ECRCL 116.35 ml/min Normal [facility] Comment on above: Performed By: #### L 501.9520, L503.7505, L500.4050 #### [facility] [address] [place], [address] EST GFR - AA 179 mL/min Normal >60 [facility] Comment on above: Result Comment: Afri can Panamanian GFR Calc Performed By: #### L 501.9520, L503.7505, L500.4050 #### [facility] [address] [place], [address] GAP 6 Normal 5-15 [facility] Comment on above: Performed By: #### L 501.9520, L503.7505, L500.4050 #### [facility] [address] [place], [address] GFR/1.73 sq M.predicted among non-blacks MDRD (S/P/Bld) [Vol rate/Area] 148 mL/min/{1.73_m2} Normal >60 [facility] Comment on above: Result Comment: Non- GFR Calc Performed By: #### L 501.9520, L503.7505, L500.4050 #### [facility] [address] [place], [address] Glucose [Mass/Vol] 250 mg/dL High 74-106 [facility] Comment on above: Result Comment: Gluc ose result greater than or equal to 200 mg/dL suggests DIABETES MELLITUS per A.D.A. criteria. Performed By: #### L 501.9520, L503.7505, L500.4050 #### [facility] [address] [place], [address] Potassium [Moles/Vol] 4.2 mmol/L Normal 3.5-5.1 [facility] Comment on above: Performed By: #### L 501.9520, L503.7505, L500.4050 #### [facility] [address], [address] Sodium [Moles/Vol] 137 mmol/L Normal 136-145 [facility] Comment on above: Performed By: #### L 501.9520, L503.7505, L500.4050 #### [facility] [address] [place], [address] Urea nitrogen [Mass/Vol] 10 mg/dL Normal 7-18 [facility] Comment on above: Performed By: #### L 501.9520, L503.7505, L500.4050 #### [facility] [address] [place], [address] Basophil percentageOrdered B y: Tyson Alvarez on 06-13-2024 Basophils/100 WBC (Bld) 0.4 % 0-1 [facility] Bedside Glucoseon 06-13-2024 FINGERSTICK GLU 281 mg/dL High 74-106 [facility] Comment on above: Result Comment: RODERICK GEMENT OF PATIENT CARE PER NURSING PROTOCOL Performed By: #### L 503.6005 #### [facility] [address] [place], [address] FINGERSTICK GLU 291 mg/dL High -106 [facility] Comment on above: Result Comment: RODERICK GEMENT OF PATIENT CARE PER NURSING PROTOCOL Performed By: #### L 501.080 #### [facility] [address] [place], [address] FINGERSTICK GLU 247 mg/dL High -106 [facility] Comment on above: Result Comment: RODERICK GEMENT OF PATIENT CARE PER NURSING PROTOCOL Performed By: #### L 503.6005 #### [facility] [address] [place], [address] CBC W/Diff, Automatedon 11-2 Absolute Lymph 1.30 X10 3/uL Normal 0.83-4.51 [facility] Comment on above: Performed By: #### L 501.9520, [id number], L500.4050 #### [facility] [address] [place], [address] Absolute Neut 8.1 X10 3/uL High 2.0-7.7 [facility] Comment on above: Performed By: #### L 501.9520, [id number], L500.4050 #### [facility] [address] [place], [address] Basophils/100 WBC (Bld) 0.4 % Normal 0-1 [facility] Comment on above: Performed By: #### L 501.9520, [id number], L500.4050 #### [facility] [address] [place], [address] Eosinophils/100 WBC (Bld) 1.4 % Normal 0-5 [facility] Comment on above: Performed By: #### L 501.9520, L503.7505, L500.4050 #### [facility] [address] [place], [address] Erythrocyte distribution width (RBC) [Ratio] 13.7 % Normal 11.6-14.6 [facility] Comment on above: Performed By: #### L 501.9520, L503.7505, L500.4050 #### [facility] [address] [place], [address] Hematocrit (Bld) [Volume fraction] 38.4 % Low 40-54 [facility] Comment on above: Performed By: #### L 501.9520, L503.7505, L500.4050 #### [facility] [address] [place], [address] Hemoglobin (Bld) [Mass/Vol] 11.9 g/dL Low 13.0-16.5 [facility] Comment on above: Performed By: #### L 501.9520, L503.7505, L500.4050 #### [facility] [address] [place], [address] IG% 0.800 Normal 0.0-0.9 [facility] Comment on above: Result Comment: IG% - Immature Granulocytes (promyelocytes, myelocytes and metamyelocytes) > 1% indicates that a LEFT SHIFT is Present. Performed By: #### L 501.9520, L503.7505, L500.4050 #### [facility] [address] [place], [address] Lymphocytes/100 WBC (Bld) 12.2 % Low 19-41 [facility] Comment on above: Performed By: #### L 501.9520, L503.7505, L500.4050 #### [facility] [address] [place], [address] MCH (RBC) [Entitic mass] 27.5 pg Normal 27.0-32.0 [facility] Comment on above: Performed By: #### L 501.9520, L503.7505, L500.4050 #### [facility] [address] [place], [address] MCHC (RBC) [Mass/Vol] 31.0 g/dL Low 32-36 [facility] Comment on above: Performed By: #### L 501.9520, L503.7505, L500.4050 #### [facility] [address] [place], [address] MCV (RBC) [Entitic vol] 88.9 fL Normal 80-94 [facility] Comment on above: Performed By: #### L 501.9520, L503.7505, L500.4050 #### [facility] [address] [place], [address] Monocytes/100 WBC (Bld) 9.2 % Normal 0-10 [facility] Comment on above: Performed By: #### L 501.9520, L503.7505, L500.4050 #### [facility] [address] [place], [address] Neutrophils/100 WBC (Bld) 76.0 % High 47-70 [facility] Comment on above: Performed By: #### L 501.9520, L503.7505, L500.4050 #### [facility] [address] [place], [address] Nucleated RBC (Bld) [#/Vol] 0 10*3/uL Normal 0-5 [facility] Comment on above: Performed By: #### L 501.9520, L503.7505, L500.4050 #### [facility] [address] [place], [address] Platelet mean volume (Bld) [Entitic vol] 8.4 fL Normal 6.2-12.0 [facility] Comment on above: Performed By: #### L 501.9520, L503.7505, L500.4050 #### [facility] [address] [place], [address] Platelets (Bld) [#/Vol] 461 10*3/uL High 150-450 [facility] Comment on above: Performed By: #### L 501.9520, L503.7505, L500.4050 #### [facility] [address] [place], [address] RBC (Bld) [#/Vol] 4.32 10*6/uL Low 4.6-6.2 [facility] Comment on above: Performed By: #### L 501.9520, L503.7505, L500.4050 #### [facility] [address] [place], [address] RDW SD 45.0 fl High 35.1-43.9 [facility] Comment on above: Performed By: #### L 501.9520, L503.7505, L500.4050 #### [facility] [address] [place], [address] WBC (Bld) [#/Vol] 10.6 10*3/uL Normal 4.4-11.0 [facility] Comment on above: Performed By: #### L 501.9520, L503.7505, L500.4050 #### [facility] [address] [place], [address] Eosinophil percentageOrdered By: Tyson Alvarez on 06-13-2024 Eosinophils/100 WBC (Bld) 1.4 % 0-5 [facility] Erythrocyte distribution wid th ratioOrdered By: Tyson Alvarez on 06-13-2024 Erythrocyte distribution width (RBC) [Ratio] 13.7 % 11.6-14.6 [facility] Erythrocyte distribution wid th standard deviationOrdered By: Tyson Alvarez on 06-13-2024 Erythrocyte distribution width (RBC) [Entitic vol] 45.0 fL High 35.1-43.9 [facility] Hematocrit Auto (Bld) [Volum e fraction]Ordered By: Tyson Alvarez on 06-13-2024 Hematocrit (Bld) [Volume fraction] 38.4 % Low 40-54 [facility] Hemoglobin measurementOrdere d By: Tyson Alvarez on 06-13-2024 Hemoglobin (Bld) [Mass/Vol] 11.9 g/dL Low 13.0-16.5 [facility] Immature granulocytes/100 WB C Auto (Bld)Ordered By: Tyson Alvarez on 06-13-2024 Immature granulocytes/100 WBC (Bld) 0.800 % 0.0-0.9 [facility] Comment on above: IG% - Immature Granu locytes (promyelocytes, myelocytes and metamyelocytes) > 1% indicates that a LEFT SHIFT is Present. Lymphocytes Auto (Unsp spec) [#/Vol]Ordered By: Tyson Alvarez on 06-13-2024 Lymphocytes (Bld) [#/Vol] 1.30 10*3/uL 0.83-4.51 [facility] Lymphocytes/100 WBC Auto (Un sp spec)Ordered By: Tyson Alvarez on 06-13-2024 Lymphocytes/100 WBC (Bld) 12.2 % Low 19-41 [facility] MCV (mean corpuscular volume ) determinationOrdered By: Tyson Alvarez on 06-13-2024 MCV (RBC) [Entitic vol] 88.9 fL 80-94 [facility] Mean corpuscular hemoglobin (MCH) determinationOrdered By: Tyson Alvarez on 06-13-2024 MCH (RBC) [Entitic mass] 27.5 pg 27.0-32.0 [facility] Mean corpuscular hemoglobin concentration (MCHC) determinationOrdered By: Tyson Alvarez on 06-13-2024 MCHC (RBC) [Mass/Vol] 31.0 g/dL Low 32-36 [facility] Mean platelet volume determi nationOrdered By: Tyson Alvarez on 06-13-2024 Platelet mean volume (Bld) [Entitic vol] 8.4 fL 6.2-12.0 [facility] Monocyte percentageOrdered B y: Tyson Alvarez on 06-13-2024 Monocytes/100 WBC (Bld) 9.2 % 0-10 [facility] Neutrophil percentageOrdered By: Tyson Alvarez on 06-13-2024 Neutrophils/100 WBC (Bld) 76.0 % High 47-70 [facility] Nucleated red blood cell per centageOrdered By: Tyson Alvarez on 06-13-2024 Nucleated RBC/100 WBC (Bld) [Ratio] 0 % 0-5 [facility] Platelet countOrdered By: Kevin Alvarez on 06-13-2024 Platelets (Bld) [#/Vol] 461 10*3/uL High 150-450 [facility] RBC Auto (Bld) [#/Vol]Ordere d By: Tyson Alvarez on 06-13-2024 RBC (Bld) [#/Vol] 4.32 10*6/uL Low 4.6-6.2 [facility] White blood cell (WBC) count Ordered By: Tyson Alvarez on 06-13-2024 WBC (Bld) [#/Vol] 10.6 10*3/uL 4.4-11.0 [facility] Albumin to globulin ratioOrd ered By: Floyd Shah on 06-12-2024 Albumin/Globulin [Mass ratio] 0.4 {ratio} Low 0.9-2.4 [facility] Bedside Glucoseon 06-12-2024 FINGERSTICK GLU 276 mg/dL High 74-106 [facility] Comment on above: Result Comment: RODERICK SINGLETARY OF PATIENT CARE PER NURSING PROTOCOL Performed By: #### L 501.080 #### [facility] [address] [place], [address] FINGERSTICK GLU 218 mg/dL High [address] [place] [address] Comment on above: Result Comment: RODERICK GEMENT OF PATIENT CARE PER NURSING PROTOCOL Performed By: #### L 503.6005 #### [facility] [address] [place], [address] FINGERSTICK GLU 291 mg/dL High [address] [place] [address] Comment on above: Result Comment: RODERICK GEMENT OF PATIENT CARE PER NURSING PROTOCOL Performed By: #### L 501.9520, L503.7505, L500.4050 #### [facility] [address] [place], [address] FINGERSTICK GLU 223 mg/dL High [address] [place] [address] Comment on above: Result Comment: RODERICK GEMENT OF PATIENT CARE PER NURSING PROTOCOL Performed By: #### L 501.080 #### [facility] [address] [place], [address] FINGERSTICK GLU 250 mg/dL High [address] [place] [address] Comment on above: Result Comment: RODERICK GEMENT OF PATIENT CARE PER NURSING PROTOCOL Performed By: #### L 503.6005 #### [facility] [address] [place], [address] Bilirubin, totalOrdered By: Floyd Shah on 06-12-2024 Bilirubin [Mass/Vol] 0.50 mg/dL 0.20-1.00 [facility] Comment on above: For patients on eltr ombopag therapy, use of Dimension [place] TBIL is not recommended. CBC W/Diff, Automatedon 05-17 Absolute Lymph 1.40 X10 3/uL Normal 0.83-4.51 [facility] Comment on above: Performed By: #### L 501.080 #### [facility] [address] [place], [address] Absolute Neut 8.3 X10 3/uL High 2.0-7.7 [facility] Comment on above: Performed By: #### L 501.080 #### [facility] [address] [place], [address] Basophils/100 WBC (Bld) 0.4 % Normal 0-1 [facility] Comment on above: Performed By: #### L 501.080 #### [facility] [address] [place], [address] Eosinophils/100 WBC (Bld) 0.8 % Normal 0-5 [facility] Comment on above: Performed By: #### L 501.080 #### [facility] [address] [place], [address] Erythrocyte distribution width (RBC) [Ratio] 14.1 % Normal 11.6-14.6 [facility] Comment on above: Performed By: #### L 501.080 #### [facility] [address] [place], [address] Hematocrit (Bld) [Volume fraction] 37.8 % Low 40-54 [facility] Comment on above: Performed By: #### L 501.080 #### [facility] [address] [place], [address] Hemoglobin (Bld) [Mass/Vol] 12.0 g/dL Low 13.0-16.5 [facility] Comment on above: Performed By: #### L 501.080 #### [facility] [address] [place], [address] IG% 0.800 Normal 0.0-0.9 [facility] Comment on above: Result Comment: IG% - Immature Granulocytes (promyelocytes, myelocytes and metamyelocytes) > 1% indicates that a LEFT SHIFT is Present. Performed By: #### L 501.080 #### [facility] [address] [place], [address] Lymphocytes/100 WBC (Bld) 12.8 % Low 19-41 [facility] Comment on above: Performed By: #### L 501.080 #### [facility] [address] [place], [address] MCH (RBC) [Entitic mass] 28.3 pg Normal 27.0-32.0 [facility] Comment on above: Performed By: #### L 501.080 #### [facility] [address] [place], [address] MCHC (RBC) [Mass/Vol] 31.7 g/dL Low 32-36 [facility] Comment on above: Performed By: #### L 501.080 #### [facility] [address] [place], [address] MCV (RBC) [Entitic vol] 89.2 fL Normal 80-94 [facility] Comment on above: Performed By: #### L 501.080 #### [facility] [address] [place], [address] Monocytes/100 WBC (Bld) 9.8 % Normal 0-10 [facility] Comment on above: Performed By: #### L 501.080 #### [facility] [address] [place], [address] Neutrophils/100 WBC (Bld) 75.4 % High 47-70 [facility] Comment on above: Performed By: #### L 501.080 #### [facility] [address] [place], [address] Nucleated RBC (Bld) [#/Vol] 0 10*3/uL Normal 0-5 [facility] Comment on above: Performed By: #### L 501.080 #### [facility] [address] [place], [address] Platelet mean volume (Bld) [Entitic vol] 8.5 fL Normal 6.2-12.0 [facility] Comment on above: Performed By: #### L 501.080 #### [facility] [address] [place], [address] Platelets (Bld) [#/Vol] 467 10*3/uL High 150-450 [facility] Comment on above: Performed By: #### L 501.080 #### [facility] [address] [place], [address] RBC (Bld) [#/Vol] 4.24 10*6/uL Low 4.6-6.2 [facility] Comment on above: Performed By: #### L 501.080 #### [facility] [address] [place], [address] RDW SD 45.4 fl High 35.1-43.9 [facility] Comment on above: Performed By: #### L 501.080 #### [facility] [address] [place], [address] WBC (Bld) [#/Vol] 11.0 10*3/uL Normal 4.4-11.0 [facility] Comment on above: Performed By: #### L 501.080 #### [facility] [address] [place], [address] Comprehensive Metabolic [facility] 06-12-2024 Albumin [Mass/Vol] 2.2 g/dL Low 3.2-5.0 [facility] Comment on above: Performed By: #### L 501.080 #### [facility] [address] [place], [address] Albumin/Globulin [Mass ratio] 0.4 {ratio} Low 0.9-2.4 [facility] Comment on above: Performed By: #### L 501.080 #### [facility] [address] [place], [address] ALK P 48 U/L Normal 45-117 [facility] Comment on above: Performed By: #### L 501.080 #### [facility] [address] [place], [address] ALT [Catalytic activity/Vol] 35 U/L Normal 16-61 [facility] Comment on above: Performed By: #### L 501.080 #### [facility] [address] [place], [address] AST [Catalytic activity/Vol] 21 U/L Normal 15-37 [facility] Comment on above: Performed By: #### L 501.080 #### [facility] [address] [place], [address] Bilirubin [Mass/Vol] 0.50 mg/dL Normal 0.20-1.00 [facility] Comment on above: Result Comment: For patients on eltrombopag therapy, use of Dimension [place] TBIL is not recommended. Performed By: #### L 501.080 #### [facility] [address] [place], [address] BUN/CRE 11.6 RATIO Normal 10-20 [facility] Comment on above: Performed By: #### L 501.080 #### [facility] [address] [place], [address] CA,Total 8.9 mg/dL Normal 8.5-10.1 [facility] Comment on above: Performed By: #### L 501.080 #### [facility] [address] [place], [address] Chloride [Moles/Vol] 104 mmol/L Normal 98-107 [facility] Comment on above: Performed By: #### L 501.080 #### [facility] [address] [place], [address] CO2 [Moles/Vol] 26.0 mmol/L Normal 21.0-32.0 [facility] Comment on above: Performed By: #### L 501.080 #### [facility] [address] [place], [address] Creatinine [Mass/Vol] 0.69 mg/dL Low 0.70-1.30 [facility] Comment on above: Result Comment: The validity of the calculated GFR GFRAA in patients over 70 years has not been determined. Clinical correlation is essential. Performed By: #### L 501.080 #### [facility] [address] [place], [address] ECRCL 116.35 ml/min Normal [facility] Comment on above: Performed By: #### L 501.080 #### [facility] [address] [place], [address] EST GFR - AA 145 mL/min Normal >60 [facility] Comment on above: Result Comment: Afri can Panamanian GFR Calc Performed By: #### L 501.080 #### [facility] [address] [place], [address] GAP 4 Low 5-15 [facility] Comment on above: Performed By: #### L 501.080 #### [facility] [address] [place], [address] GFR/1.73 sq M.predicted among non-blacks MDRD (S/P/Bld) [Vol rate/Area] 120 mL/min/{1.73_m2} Normal >60 [facility] Comment on above: Result Comment: Non- GFR Calc Performed By: #### L 501.080 #### [facility] [address] [place], [address] Globulin (S) [Mass/Vol] 5.0 g/dL High 2.2-4.2 [facility] Comment on above: Performed By: #### L 501.080 #### [facility] [address] [place], [address] Glucose [Mass/Vol] 239 mg/dL High 74-106 [facility] Comment on above: Result Comment: Gluc ose result greater than or equal to 200 mg/dL suggests DIABETES MELLITUS per A.D.A. criteria. Performed By: #### L 501.080 #### [facility] [address] [place], [address] Potassium [Moles/Vol] 4.3 mmol/L Normal 3.5-5.1 [facility] Comment on above: Performed By: #### L 501.080 #### [facility] [address] [place], [address] Sodium [Moles/Vol] 135 mmol/L Low 136-145 [facility] Comment on above: Performed By: #### L 501.080 #### [facility] [address] [place], [address] T PROT 7.2 g/dL Normal 6.4-8.2 [facility] Comment on above: Performed By: #### L 501.080 #### [facility] [address] [place], [address] Urea nitrogen [Mass/Vol] 8 mg/dL Normal 7-18 [facility] Comment on above: Performed By: #### L 501.080 #### [facility] [address] [place], [address] Laboratory - Chemistry and C hemistry - challengeOrdered By: Floyd Shah on 06-12-2024 AST [Catalytic activity/Vol] 21 U/L 15-37 [facility] Serum globulin measurementOr dered By: Floyd Shah on 06-12-2024 Globulin (S) [Mass/Vol] 5.0 g/dL High 2.2-4.2 [facility] Serum or plasma alanine lopez otransferase (ALT) measurementOrdered By: Floyd Shah on 06-12-2024 ALT [Catalytic activity/Vol] 35 U/L 16-61 [facility] Serum or plasma albumin nori urement (mass/volume)Ordered By: Floyd Shah on 06-12-2024 Albumin [Mass/Vol] 2.2 g/dL Low 3.2-5.0 [facility] Serum or plasma alkaline holly sphatase measurementOrdered By: Floyd Shah on 06-12-2024 ALP [Catalytic activity/Vol] 48 U/L 45-117 [facility] Total proteinOrdered By: Shalonda Shah on 06-12-2024 Protein [Mass/Vol] 7.2 g/dL 6.4-8.2 [facility] Vancomycin, Trough Levelon 1 08-12-2023 VANCO, TROUGH 15.8 ug/mL High 5.0-15.0 [facility] Comment on above: Order Comment: Comme nts: Trough to be drawn 30 mins prior to scheduled [id number] Result Comment: VANC OMYCIN STANDARED DRUG THERAPY TROUGH LEVEL: 5.0 - 15.0 mg/L VANCOMYCIN HIGH INTENSITY THERAPY TROUGH LEVEL: 15.0 - 20.0 mg/L High Intensity therapy recommended for serious life threatening infections include: - Meningitis -Endocarditis -Pneumonia (Ventilator/Healtcare Associated) -Sepsis PLEASE CONTACT PHARMACY SERVICES (#[id number]) FOR INTERPRETATION OF RESULTS. Performed By: #### L 501.080 #### [facility] [address] [place], [place], [id number] Bedside Glucoseon 06-11-2024 FINGERSTICK GLU 272 mg/dL High 74-106 [facility] Comment on above: Result Comment: RODERICK GEMENT OF PATIENT CARE PER NURSING PROTOCOL Performed By: #### L 501.9520, L503.7505, L500.6835 #### [facility] [address], [address] FINGERSTICK GLU 249 mg/dL High 74-106 [facility] Comment on above: Result Comment: RODERICK GEMENT OF PATIENT CARE PER NURSING PROTOCOL Performed By: #### L 501.080 #### [facility] [address] [place], [address] FINGERSTICK GLU 215 mg/dL High 74-106 [facility] Comment on above: Result Comment: RODERICK SINGLETARY OF PATIENT CARE PER NURSING PROTOCOL Performed By: #### L 501.9520, L503.7505, L500.4050 #### [facility] [address] [place], [address] CTA Abd w/Runoff W/WO Contra ston 06-11-2024 CTA Abd w/Runoff W/WO Contrast [facility] Imaging Services [address] [place] [address] CTA Abd w/Runoff W/WO Contrast MR#: [id number] Acct: [id number] Name: EMILEE ARAGON Rep #: [id number] : 1950 M 74 From: Sylvain Allan MD PCP: Dr. Floyd Ricketts, DO Status: ADM IN Study: CTA Abd w/Runoff W/WO Contrast Date of Exam: 08/11/23 Exam# [id number] Ordering Dr: Tyson Kunz MD [id number] STUDY: CTA OF THE ABDOMINAL AORTA AND [...] Tyson Kunz MD; Dr. Floyd Ricketts DO Tutor Coordinator: Signed Normal [facility] Consultation - Surgicalon Consultation - Surgical [facility] Medical Records Department [address] [place] [address] Consultation - Surgical 06/11/24 1701 MR#: [id number] Acct: [id number] Name: EMILEE ARAGON Rep #: [id number] : 1950 74 From: Tyson Kunz MD PCP: Dr. Floyd Ricketts DO Status:ADM IN Location: [place] [address] Assessment Plan Assessment/Plan (1) Atherosclerosis of [place] arteries of extremities with gangrene, left leg: [...] no prior surgical history on the left. [facility] Medical History Wears glasses Bladder disease [...] DAILY blood thinner 04/18/21 06/10/24 History geriatric hdnoogvx-jzqv-pbzn 1 tab PO DAILY supplement 04/18/21 06/10/24 [...] or hematur (more content not included)... Normal [facility] Gram Stainon 06-11-2024 GS BONE OF LEFT FIFTH METATARSAL Gram Stain 3+ White Blood Cells 1+ Gram positive cocci Rare Gram negative rods 4+ Red Blood Cells Normal [facility] Comment on above: Performed By: #### L 501.080 #### [facility] [address] [place], [place], [address] GS CLEARANCE FRAGMENT O F LEFT FIFTH METATARSAL BONE Gram Stain Rare Gram positive cocci Rare White Blood Cells 2+ Red Blood Cells Normal [facility] Comment on above: Performed By: #### L 501.9985, L501.9520, L500.4100 #### [facility] [address] [place], [place], [address] Hemoglobin A1con 06-11-2024 HbA1c (Bld) [Mass fraction] 7.5 % High 3.8-5.6 [facility] Comment on above: Result Comment: Norm al < 5.7 % Prediabetic 5.7 - 6.4 % Diabetic >or= 6.5 % Please note range changes. Performed By: #### L 503.6005 #### [facility] [address] [place], [place], [address] Vancomycin, Trough Levelon 08-11-2023 VANCO, TROUGH 12.7 ug/mL Normal 5.0-15.0 [facility] Comment on above: Order Comment: 1999 Result Comment: VANC OMYCIN STANDARED DRUG THERAPY TROUGH LEVEL: 5.0 - 15.0 mg/L VANCOMYCIN HIGH INTENSITY THERAPY TROUGH LEVEL: 15.0 - 20.0 mg/L High Intensity therapy recommended for serious life threatening infections include: - Meningitis -Endocarditis -Pneumonia (Ventilator/Healtcare Associated) -Sepsis PLEASE CONTACT PHARMACY SERVICES (#[id number]) FOR INTERPRETATION OF RESULTS. Performed By: #### L 501.9520, L503.7505, L500.4050 #### [facility] [address] [place], [place], [address] Acid fast bacillus (AFB) cul ture and smearOrdered By: Sylvain Ruiz on 06-10-2024 Acid Fast Bacilli Smear [facility] Acid Fast Bacilli Smear W [facility] Activated partial thrombopla stin time (aPTT) in platelet poor plasma by coagulation aOrdered By: Carlos Cazares on 06-10-2024 aPTT Coag (Bld) [Time] 35.6 s Normal 24.1-36.2 [facility] Comment on above: Performed By: #### L 501.9520, L503.7505, L500.4050 #### [facility] [address] [place], [place], [address] Bacteria identified Anaer cx Nom (Unsp spec)Ordered By: Sylvain Ruiz on 06-10-2024 Anaerobic Culture Prevotella melaninogenica Abnormal [facility] Anaerobic Culture Anaerobic cocci Abnormal [facility] Anaerobic Culture Prevotella melaninogenica Abnormal [facility] Anaerobic Culture Clostridium group Abnormal [facility] Anaerobic Culture Anaerobic cocci Abnormal [facility] Bacteria identified Anaer cx Nom (Unsp spec)Ordered By: Carlos Cazares on 06-10-2024 Anaerobic Culture Anaerobic cocci Abnormal [facility] Anaerobic Culture Prevotella melaninogenica Abnormal [facility] Basic Metabolic Profile (BMP )on 06-10-2024 BUN/CRE 9.7 RATIO Low 10-20 [facility] Comment on above: Order Comment: 'TROP ' Serial specimen #1, #2 or #3: 1 Performed By: #### L 501.9520, L503.7505, L500.4050 #### [facility] [address] [place], [address] CA,Total 9.0 mg/dL Normal 8.5-10.1 [facility] Comment on above: Order Comment: 'TROP ' Serial specimen #1, #2 or #3: 1 Performed By: #### L 501.9520, L503.7505, L500.4050 #### [facility] [address] [place], [address] Chloride [Moles/Vol] 103 mmol/L Normal 98-107 [facility] Comment on above: Order Comment: 'TROP ' Serial specimen #1, #2 or #3: 1 Performed By: #### L 501.9520, L503.7505, L500.4050 #### [facility] [address] [place], [address] CO2 [Moles/Vol] 23.0 mmol/L Normal 21.0-32.0 [facility] Comment on above: Order Comment: 'TROP ' Serial specimen #1, #2 or #3: 1 Performed By: #### L 501.9520, L503.7505, L500.4050 #### [facility] [address] [place], [address] Creatinine [Mass/Vol] 0.83 mg/dL Normal 0.70-1.30 [facility] Comment on above: Order Comment: 'TROP ' Serial specimen #1, #2 or #3: 1 Result Comment: The validity of the calculated GFR GFRAA in patients over 70 years has not been determined. Clinical correlation is essential. Performed By: #### L 501.9520, L503.7505, L500.4050 #### [facility] [address] [place], [address] ECRCL 112.58 ml/min Normal [facility] Comment on above: Order Comment: 'TROP ' Serial specimen #1, #2 or #3: 1 Performed By: #### L 501.9520, L503.7505, L500.4050 #### [facility] [address] [place], [address] EST GFR - AA 117 mL/min Normal >60 [facility] Comment on above: Order Comment: 'TROP ' Serial specimen #1, #2 or #3: 1 Result Comment: Afri can Panamanian GFR Calc Performed By: #### L 501.9520, L503.7505, L500.4050 #### [facility] [address] [place], [address] GAP 9 Normal 5-15 [facility] Comment on above: Order Comment: 'TROP ' Serial specimen #1, #2 or #3: 1 Performed By: #### L 501.9520, L503.7505, L500.4050 #### [facility] [address] [place], [address] GFR/1.73 sq M.predicted among non-blacks MDRD (S/P/Bld) [Vol rate/Area] 97 mL/min/{1.73_m2} Normal >60 [facility] Comment on above: Order Comment: 'TROP ' Serial specimen #1, #2 or #3: 1 Result Comment: Non- GFR Calc Performed By: #### L 501.9520, L503.7505, L500.4050 #### [facility] [address] [place], [address] Glucose [Mass/Vol] 180 mg/dL High 74-106 [facility] Comment on above: Order Comment: 'TROP ' Serial specimen #1, #2 or #3: 1 Result Comment: Fast ing Glucose result greater than or equal to 126 mg/dL suggests DIABETES MELLITUS per A.D.A. criteria. Performed By: #### L 501.9520, L503.7505, L500.4050 #### [facility] [address] [place], [address] Potassium [Moles/Vol] 4.1 mmol/L Normal 3.5-5.1 [facility] Comment on above: Order Comment: 'TROP ' Serial specimen #1, #2 or #3: 1 Performed By: #### L 501.9520, L503.7505, L500.4050 #### [facility] [address] [place], [address] Sodium [Moles/Vol] 135 mmol/L Low 136-145 [facility] Comment on above: Order Comment: 'TROP ' Serial specimen #1, #2 or #3: 1 Performed By: #### L 501.9520, L503.7505, L500.4050 #### [facility] [address] [place], [address] Urea nitrogen [Mass/Vol] 8 mg/dL Normal 7-18 [facility] Comment on above: Order Comment: 'TROP ' Serial specimen #1, #2 or #3: 1 Performed By: #### L 501.9520, L503.7505, L500.4050 #### [facility] [address] [place], [address] Bedside Glucoseon 06-10-2024 FINGERSTICK GLU 156 mg/dL High 74-106 [facility] Comment on above: Result Comment: RODERICK GEMENT OF PATIENT CARE PER NURSING PROTOCOL Performed By: #### L 501.080 #### [facility] [address] [place], [address] FINGERSTICK GLU 103 mg/dL Normal 74-106 [facility] Comment on above: Result Comment: RODERICK GEMENT OF PATIENT CARE PER NURSING PROTOCOL Performed By: #### L 503.6005 #### [facility] [address] [place], [address] FINGERSTICK GLU 68 mg/dL Low 74-106 [facility] Comment on above: Result Comment: RODERICK SINGLETARY OF PATIENT CARE PER NURSING PROTOCOL Performed By: #### L 501.9520, L503.7505, L500.4050 #### [facility] [address] [place], [address] Bilirubin directOrdered By: Carlos Cazares on 06-10-2024 Bilirubin.direct [Mass/Vol] 0.18 mg/dL Normal 0.00-0.30 [facility] Comment on above: Order Comment: 'TROP ' Serial specimen #1, #2 or #3: 1 Performed By: #### L 501.9520, L503.7505, L500.4050 #### [facility] [address] [place], [address] Blood cultureOrdered By: Roman Cazares on 06-10-2024 Bacteria identified Cx Nom (Bld) No growth in 5 days. [facility] CBC W/Diff, Automatedon - Absolute Lymph 1.49 X10 3/uL Normal 0.83-4.51 [facility] Comment on above: Performed By: #### L 503.6005 #### [facility] [address] [place], [address] Absolute Neut 14.4 X10 3/uL High 2.0-7.7 [facility] Comment on above: Performed By: #### L 503.6005 #### [facility] [address] [place], [address] Basophils/100 WBC (Bld) 0.3 % Normal 0-1 [facility] Comment on above: Performed By: #### L 503.6005 #### [facility] [address] [place], [address] Eosinophils/100 WBC (Bld) 0.4 % Normal 0-5 [facility] Comment on above: Performed By: #### L 503.6005 #### [facility] [address] [place], [address] Erythrocyte distribution width (RBC) [Ratio] 14.0 % Normal 11.6-14.6 [facility] Comment on above: Performed By: #### L 503.6005 #### [facility] [address] [place], [address] Hematocrit (Bld) [Volume fraction] 41.2 % Normal 40-54 [facility] Comment on above: Performed By: #### L 503.6005 #### [facility] [address] [place], [address] Hemoglobin (Bld) [Mass/Vol] 13.3 g/dL Normal 13.0-16.5 [facility] Comment on above: Performed By: #### L 503.6005 #### [facility] [address] [place], [address] IG% 1.000 High 0.0-0.9 [facility] Comment on above: Result Comment: IG% - Immature Granulocytes (promyelocytes, myelocytes and metamyelocytes) > 1% indicates that a LEFT SHIFT is Present. Performed By: #### L 503.6005 #### [facility] [address] [place], [address] Lymphocytes/100 WBC (Bld) 8.5 % Low 19-41 [facility] Comment on above: Performed By: #### L 503.6005 #### [facility] [address] [place], [address] MCH (RBC) [Entitic mass] 28.8 pg Normal 27.0-32.0 [facility] Comment on above: Performed By: #### L 503.6005 #### [facility] [address] [place], [address] MCHC (RBC) [Mass/Vol] 32.3 g/dL Normal 32-36 [facility] Comment on above: Performed By: #### L 503.6005 #### [facility] [address] [place], [address] MCV (RBC) [Entitic vol] 89.2 fL Normal 80-94 [facility] Comment on above: Performed By: #### L 503.6005 #### [facility] [address] [place], [address] Monocytes/100 WBC (Bld) 7.8 % Normal 0-10 [facility] Comment on above: Performed By: #### L 503.6005 #### [facility] [address] [place], [address] Neutrophils/100 WBC (Bld) 82.0 % High 47-70 [facility] Comment on above: Performed By: #### L 503.6005 #### [facility] [address] [place], [address] Nucleated RBC (Bld) [#/Vol] 0 10*3/uL Normal 0-5 [facility] Comment on above: Performed By: #### L 503.6005 #### [facility] [address] [place], [address] Platelet mean volume (Bld) [Entitic vol] 8.6 fL Normal 6.2-12.0 [facility] Comment on above: Performed By: #### L 503.6005 #### [facility] [address] [place], [address] Platelets (Bld) [#/Vol] 541 10*3/uL High 150-450 [facility] Comment on above: Performed By: #### L 503.6005 #### [facility] [address] [place], [address] RBC (Bld) [#/Vol] 4.62 10*6/uL Normal 4.6-6.2 [facility] Comment on above: Performed By: #### L 503.6005 #### [facility] [address] [place], [address] RDW SD 45.4 fl High 35.1-43.9 [facility] Comment on above: Performed By: #### L 503.6005 #### [facility] [address] [place], [address] WBC (Bld) [#/Vol] 17.5 10*3/uL High 4.4-11.0 [facility] Comment on above: Performed By: #### L 503.6005 #### [facility] [address] [place], [address] Consultation - Infectious Dx on 06-10-2024 Consultation - Infectious Dx [facility] Medical Records Department [address] [place] [address] Consultation - Infectious Dx 06/10/24 1033 MR#: [id number] Acct: [id number] Name: EMILEE ARAGON Rep #: [id number] : 1950 74 From: Kyle Rowland MD PCP: Dr. Floyd Ricketts, DO Status:ADM IN Location: [place] [address] Assessment Plan Assessment/Plan (1) Gangrene, not elsewhere [...] performed and neg except as noted above. [facility] Medical History Wears glasses Bladder disease [...] DAILY blood thinner 04/18/21 Unknown History geriatric wwsjolxw-ogrg-aznp 1 tab PO DAILY 04/18/21 Unknown History [...] 82.0 H, Lymph % (Auto) 8.5 L, Tillman % (Auto) 7.8, Eos % (Auto) 0.4, [...] 06/10/24 07:44 (more content not included)... Normal [facility] Decalcification bone/plaqueo n 06-10-2024 Decalcification bone/plaque ---- Patient Age/Sex Location Account Attending Physician ---- EMILEE ARAGON 74/M [facility] [id number] Dr. Floyd Shah DO ---- Specimen: [id number] Received: 06/10/24 Status: PADDY Moralez Num: [id number] Spec Type: Bone Subm Dr: Dr. Sylvain Ruiz, [facility] HEADER OPERATION: Debridement soft tissue and bone, [...] inflammation and granulation. Bone with acute osteomyelitis. AM. 06/16/2024 MICROSCOPIC DESCRIPTION Slides are reviewed. GROSS [...] and measures 4.6 x 3.5 x 0.5cm. Retail Sales Assistant sections are submitted in four cassettes after decalcification as follows: 1 2- skin and soft tissue from area of ulcer, 3- grayish-johnston bone after decalcification, 4- distal toe with skin, soft tissue and bone after decalcification . /mr 06/11/2024 TC:2 [facility]:[id number] ---- Patient Age/Sex Location Account Attending Physician ---- MARGOJOSELINEMILEE W 74/M [facility] [id number] Dr. Floyd Shah, DO ---- Signed (signature on file) Dr. Conner Valdez DO 06/18/24 1129 ---- Normal [facility] Comment on above: Performed By: #### L 501.080 #### [facility] [address] [facility] [place], [address] Emergency Department Summary on 06-10-2024 Emergency Department Summary [facility] Medical Records Department [address] [place] [address] Emergency Department Summary 06/10/24 MR#: [id number] Acct: [id number] Name: EMILEE ARAGON Ellyn Rep #: [id number] : 1950 74 From: Carlos Cazares DO PCP: Dr. Floyd Ricketts DO Status:ADM IN Location: [facility] [id number] HPI History of Present Illness Chief Complaint: Lower [...] does not feel anything with his feet. [facility] Medical History Wears glasses Bladder disease High [...] DAILY blood thinner 04/18/21 Unknown History geriatric qgvtmtfg-dpto-ulvc 1 tab PO DAILY 04/18/21 Unknown History [...] well franki (more content not included)... Normal [facility] Foot min 3 Viewson 4 Foot min 3 Views [facility] Imaging Services [address] [place] [address] Foot min 3 Views MR#: [id number] Acct: [id number] Name: EMILEE ARAGON Rep #: [id number] : 1950 M 74 From: Philip Alfaro MD PCP: Dr. Floyd Ricketts DO Status: ADM IN Study: Foot min 3 Views Date of Exam: 06/10/24 Exam# [id number] Ordering Dr: Sylvain Ruiz DPEfraín [id number] INDICATION: POST OPERATIVE EXAMINATION/TECHNIQUE: X-RAY - LEFT [...] CC: THANIA Ruiz; Dr. Floyd Ricketts DO Tutor Coordinator: Signed Normal [facility] Foot min 3 Views [facility] Imaging Services [address] [place] [id number] [phone] Foot min 3 Views MR#: [id number] Acct: [id number] Name: EMILEE ARAGON Rep #: [id number] : 1950 M 74 From: Leo Arreola MD PCP: Dr. Floyd Ricketts DO Status: REG ER Study: Foot min 3 Views Date of Exam: 06/10/24 Exam# [id number] Ordering Dr: Carlos Cazares DO [id number] STUDY: X-RAY - LEFT FOOT CLINICAL: Male, [...] , CC: Dr. Carlos Cazares DO; Dr. Floyd Ricketts DO Tutor Coordinator: Signed Normal [facility] Fungus identified Cx Nom (Un sp spec)Ordered By: Sylvain Ruiz on 06-10-2024 Fungal Culture [facility] Fungal Culture [facility] Fungus identified Fungus sta in Nom (Unsp spec)Ordered By: Sylvain Ruiz on 06-10-2024 Fungal Smear [facility] Fungal Smear [facility] Gram Stainon 06-10-2024 GS Gram Stain 4+ Gram positive cocci 4+ Gram variable mary 2+ White Blood Cells No Epithelial cells Normal [facility] Comment on above: Performed By: #### L 501.080 #### [facility] [address] [place], [address] Gram stainOrdered By: Renata Ruiz on 06-10-2024 Microscopic observation Gram stain Nom (Unsp spec) [facility] Microscopic observation Gram stain Nom (Unsp spec) [facility] Gram stainOrdered By: Carlos Cazares on 06-10-2024 Microscopic observation Gram stain Nom (Unsp spec) [facility] H AND P Exam - Hospitaliston 06-10-2024 H&P Exam - Hospitalist [facility] Medical Records Department [address] [place] [address] H P Exam - Hospitalist 06/10/24 1545 MR#: [id number] Acct: [id number] Name: EMILEE ARAGON Rep #: [id number] : 1950 74 From: Floyd Shah DO PCP: Dr. Floyd Ricketts, Status:[facility]M [facility] - General General Date of Admission: 06/10/24 Date of Service: 06/10/24 Chief Complaint: Left foot infection HPI Narrative EMILEE ARAGON, is a 74 M who presents to the emergency room at [facility] complaining of drainage and foul-smelling discharge [...] and IV Flagyl in the emergency room. [facility] Medical History Wears glasses Bladder disease [...] DAILY blood thinner 04/18/21 06/10/24 History geriatric gtuqhzfq-aane-hxga 1 tab PO DAILY supplement 04/18/21 06/10/24 [...] weakness, headach (more content not included)... Normal [facility] Hemoglobin A1c percentageOrd ered By: Tyson Kunz on 06-10-2024 HbA1c (Bld) [Mass fraction] 7.5 % High 3.8-5.6 [facility] Comment on above: Normal < 5.7 % Predi abetic 5.7 - 6.4 % Diabetic >or= 6.5 % Please note range changes. International normalized rat io (INR) calculationOrdered By: Carlos Cazares on 06-10-2024 INR Coag (Bld) [Relative time] 1.0 {INR} [facility] L501.4020on 06-10-2024 TROPONIN-I HS 9 pg/mL Normal 3.0-78.0 [facility] Comment on above: Order Comment: 'TROP ' Serial specimen #1, #2 or #3: 1 Result Comment: Pollo alex Note: New Test Units and Gender Specific Reference Ranges. For more information see Policy Stat Procedure [place] High Sensitivity Troponin (TNIH) and attachments. Performed By: #### L 501.9520, L503.7505, L500.4050 #### [facility] [address] [place], [place], [address] Lactic Acidon 06-10-2024 Lactate [Moles/Vol] 3.6 mmol/L Invalid Interpretation Code 0.4-1.9 [facility] Comment on above: Result Comment: Crit ical Result(s) Called at: 12:07:00 06/10/2024 by: PÉREZ MOREAU. Results read back by same. Performed By: #### L 503.6005 #### [facility] [address] [place], [place], [address] Lactate [Moles/Vol] 3.3 mmol/L Invalid Interpretation Code 0.4-1.9 [facility] Comment on above: Order Comment: Y Result Comment: Crit ical Result(s) Called at: 07:43:44 06/10/2024 by: Miguelina Packer. Results read back by same. Performed By: #### L 501.9520, L503.7505, L500.4050 #### [facility] [address] [place], [address] Lactic acid measurementOrder ed By: Carlos Cazares on 06-10-2024 Lactate [Moles/Vol] 3.6 mmol/L High 0.4-2.0 [facility] Comment on above: Critical Result(s) C alled at: 12:07:00 06/10/2024 by: PÉREZ MOREAU. Results read back by eamon. Lipase measurementOrdered By : Carlos Cazares on 06-10-2024 Lipase [Catalytic activity/Vol] 57 U/L Normal 13-75 [facility] Comment on above: Please note:LIPASE r [...] - 75 U/L Performed By: #### L 501.9520, L503.7505, L500.4050 #### [facility] [address] [place], [address] Liver Profileon 06-10-2024 Albumin [Mass/Vol] 2.5 g/dL Low 3.2-5.0 [facility] Comment on above: Order Comment: 'TROP ' Serial specimen #1, #2 or #3: 1 Performed By: #### L 501.9520, L503.7505, L500.4050 #### [facility] [address] [place], [address] ALK P 58 U/L Normal 45-117 [facility] Comment on above: Order Comment: 'TROP ' Serial specimen #1, #2 or #3: 1 Performed By: #### L 501.9520, L503.7505, L500.4050 #### [facility] [address] [place], [address] ALT [Catalytic activity/Vol] 34 U/L Normal 16-61 [facility] Comment on above: Order Comment: 'TROP ' Serial specimen #1, #2 or #3: 1 Performed By: #### L 501.9520, L503.7505, L500.4050 #### [facility] [address] [place], [address] AST [Catalytic activity/Vol] 17 U/L Normal 15-37 [facility] Comment on above: Order Comment: 'TROP ' Serial specimen #1, #2 or #3: 1 Performed By: #### L 501.9520, L503.7505, L500.4050 #### [facility] [address] [place], [address] Bilirubin [Mass/Vol] 0.50 mg/dL Normal 0.20-1.00 [facility] Comment on above: Order Comment: 'TROP ' Serial specimen #1, #2 or #3: 1 Result Comment: For patients on eltrombopag therapy, use of Dimension [place] TBIL is not recommended. Performed By: #### L 501.9520, L503.7505, L500.4050 #### [facility] [address] [place], [address] Globulin (S) [Mass/Vol] 5.4 g/dL High 2.2-4.2 [facility] Comment on above: Order Comment: 'TROP ' Serial specimen #1, #2 or #3: 1 Performed By: #### L 501.9520, L503.7505, L500.4050 #### [facility] [address] [place], [address] T PROT 7.9 g/dL Normal 6.4-8.2 [facility] Comment on above: Order Comment: 'TROP ' Serial specimen #1, #2 or #3: 1 Performed By: #### L 501.9520, L503.7505, L500.4050 #### [facility] [address] [place], [address] Lower Ext Art Exam w/o Exerc daniel 06-10-2024 Lower Ext Art Exam w/o Exercis [facility] [address] [place] [address] Lower Ext Art Exam w/o Exercis 06/11/24 0802 MR#: [id number] Acct: [id number] Name: EMILEE ARAGON Ellyn Rep #: [id number] : 1950 74 From: Tyson Kunz MD Attending Dr: Dr. Floyd Shah DO Status: A DM IN Ordering Dr: Floyd Shah DO Date: 06/10/24 Location: [facility] Sex: M C Admitted: 06/10/24 [...] insufficiency. Doppler/PVR waveforms an segmental pressures reveal wegot-wghag-cplffubg femoral disease Ordering Physician: Floyd Shah Referring Physician: Floyd Ricketts Performed By: Contreras Dubois RVT and Student 06/11/24 1732 Date Tyson Kunz MD CC: Dr. Floyd Ricketts DO; Dr. Floyd Shah DO Date Dictated: 06/11/24 0802 Date Transcribed: 06/11/241731 Tutor Coordinator: Signed [facility] MR/POSTOP.ANE 06-10-2024 MR/POSTOP.[facility] Medical Records Department [address] [place] [address] Anesthesia Postop Eval I 06/10/24 1540 MR#: [id number] Acct: [id number] Name: EMILEE ARAGON Rep #: [id number] : 1950 74 From: Anna Marie Pina CRNA PCP: Dr. Floyd Ricketts DO Status:ADM IN Y Race: C Location: [place] [address] Anesthesia: Postop Eval I Current Vital Signs [...] document: Postop Eval 1 completed: Yes 06/10/24 154 Date Anna Marie Pina SENIOR CARE PROVIDER Cosigner Signature: Date CC: Signed [facility] MR/[id number] 06-10-2024 MR/POSTOPAN2 [facility] Medical Records Department [address] [place] [address] Anesthesia Postop Eval II 06/10/24 1551 MR#: [id number] Acct: [id number] Name: EMILEE ARAGON Rep #: [id number] : 1950 74 From: Tyson Weinstein MD PCP: Dr. Floyd Ricketts, DO Status:ADM IN Y Race: C Location: [place] [address] Anesthesia Postop Eval I Sum Postop Eval Completion status Anesthesia document: Postop Eval 1 completed: Yes Anesthesia Postop Eval I Summary Anesthesia Postop Eval I Summary: Anesthesia Postop Eval I: Assessment Summary Airway patent Yes 06/10/24 15:41 SENIOR CARE PROVIDER.JDEF Spontaneous unlabored Yes 06/10/24 15:41 SENIOR CARE PROVIDER.JDEF respirations Mental status Awake 06/10/24 15:41 SENIOR CARE PROVIDER.JDEF nausea No 06/10/24 15:41 SENIOR CARE PROVIDER.JDEF Vomiting No 06/10/24 15:41 SENIOR CARE PROVIDER.JDEF Anesthesia Postop Eval I: Fluid Summary Crystalloid volume administer 40 06/10/24 15:41 SENIOR CARE PROVIDER.JDEF (ml) Colloids volume administered ( ml) Blood Product volume administered (ml) Total IV fluid infused 40 06/10/24 15:41 SENIOR CARE PROVIDER.JDEF Anesthesia Postop Eval I: Summary Notes Anesthesia Complication No 06/10/24 15:41 SENIOR CARE PROVIDER.JDEF Anesthesia Complication Comment: Post-operative progress note Anesthesia: Postop Eval II Evaluation Mental status: Awake Pain Level: 0 nausea: No Vomiting: No 06/10/24 1551 Date Tyson Weinstein MD Cosigner Signature: Date CC: Signed Normal [facility] Mycobacterium sp identified Org specific cx Nom (Unsp spec)Ordered By: Sylvain Ruiz on 06-10-2024 Acid Fast Bacilli Culture Myco avium compex Abnormal [facility] Acid Fast Bacilli Culture [facility] Operative Reporton Operative Report [facility] Medical Records Department [address] [place] [address] Operative Report 06/10/24 1530 MR#: [id number] Acct: [id number] Name: EMILEE ARAGON Rep #: [id number] : 1950 74 From: Sylvain Ruiz DPM PCP: Dr. Floyd Ricketts, DO Status:ADM IN Location: [place] [address] Operative Report (Standard) Operative Information Surgery/Procedure Performed: Left foot - debridement of ulceration down to and including bone Surgeon: Sylvain Ruiz Date of Procedure: 06/10/24 Procedure Start [...] the heath (more content not included)... Normal [facility] Prothrombin Time w/INRon INR Coag (PPP) [Relative time] 1.0 {INR} Normal [facility] Comment on above: Performed By: #### L 501.9520, L503.7505, L500.4050 #### [facility] [address] [place], [place], [address] Prothrombin timeOrdered By: Carlos Cazares on 06-10-2024 PT Coag (PPP) [Time] 13.3 s Normal 11.7-14.9 [facility] Comment on above: Performed By: #### L [id number], L503.7505, L500.4050 #### [facility] [address] [place], [place], [address] Routine wound cultureOrdered By: Sylvain Ruiz on 06-10-2024 Wound Culture Staphylococcus epidermidis Abnormal [facility] Wound Culture Staphylococcus lugdunensis Abnormal [facility] Wound Culture Staphylococcus aureus Abnormal [facility] Wound Culture Enterococcus faecalis Abnormal [facility] Wound Culture Staphylococcus epidermidis Abnormal [facility] Wound Culture Granulicatella adiacens Abnormal [facility] Routine wound cultureOrdered By: Carlos Cazares on 06-10-2024 Wound Culture Staphylococcus aureus Abnormal [facility] Wound Culture Enterococcus faecalis Abnormal [facility] Troponin IOrdered By: Carlos Cazares on 06-10-2024 Troponin I High Sensitivity 9 pg/mL 3.0-78.0 [facility] Comment on above: Please Note: [place] t Units and Gender Specific Reference Ranges. For more information see Policy Stat Procedure [place] High Sensitivity Troponin (TNIH) and attachments. HISTORY PHYSICALon HISTORY PHYSICAL HNO ID: [id number]: Tameka Zelaya) AthyService: (none)Author Type: Physician AssistantType: HANDPFiled: 08/21/2017 [...] was already in the waiting room at [facility] today and didn't want to wait there so tried to come here. I diddiscuss with him that I do feel he needs to be evaluated in the ER and hewas agreeable with going to [facility] ED. Normal [facility] Vital Signs Date Time Vital Sign Value Performing Clinician Faci darrel 11-19-2024 09:49-0400 Body mass index (BMI) [Ratio] 35.7 kg/m2 Dr. Floyd Ricketts DO Work Phone: [facility] 11-19-2024 09:49-0400 Diastolic blood pressure 69 mm[Hg] Dr. Floyd Ricketts DO Work Phone: [facility] 11-19-2024 09:49-0400 Heart rate 79 /min Dr. Floyd Ricketts DO Work Phone: [facility] 11-19-2024 09:49-0400 Respiratory rate 18 /min Dr. Floyd Ricketts DO Work Phone: [facility] 11-19-2024 09:49-0400 Systolic blood pressure 150 mm[Hg] Dr. Floyd Ricketts DO Work Phone: [facility] 11-13-2024 00:29-0400 Body temperature 97.4 [degF] Dr. Floyd Ricketts DO Work Phone: [facility] 11-13-2024 00:29-0400 Body weight 122.[address] Floyd Ricketts DO Work Phone: [facility] 11-05-2024 09:47-0400 Body mass index (BMI) [Ratio] 35.7 kg/m2 Dr. Floyd Ricketts DO Work Phone: [facility] 11-05-2024 09:47-0400 Body temperature 97.4 [degF] Dr. Floyd Ricketts DO Work Phone: [facility] 11-05-2024 09:47-0400 Diastolic blood pressure 81 mm[Hg] Dr. Floyd Ricketts DO Work Phone: [facility] 11-05-2024 09:47-0400 Heart rate 86 /min Dr. Floyd Ricketts DO Work Phone: [facility] 11-05-2024 09:47-0400 Respiratory rate 16 /min Dr. Floyd Ricketts DO Work Phone: [facility] 11-05-2024 09:47-0400 Systolic blood pressure 156 mm[Hg] Dr. Floyd Ricketts DO Work Phone: [facility] 10-14-2024 00:20-0400 Body weight 122.[address] Floyd Ricketts DO Work Phone: [facility] 10-08-2024 08:35-0400 Body mass index (BMI) [Ratio] 35.7 kg/m2 Dr. Floyd Ricketts DO Work Phone: [facility] 10-08-2024 08:35-0400 Body temperature 97 [degF] Dr. Floyd Ricketts DO Work Phone: [facility] 10-08-2024 08:35-0400 Diastolic blood pressure 80 mm[Hg] Dr. Floyd Ricketts DO Work Phone: [facility] 10-08-2024 08:35-0400 Heart rate 84 /min Dr. Floyd Ricketts DO Work Phone: [facility] 10-08-2024 08:35-0400 Respiratory rate 15 /min Dr. Floyd Ricketts DO Work Phone: [facility] 10-08-2024 08:35-0400 Systolic blood pressure 165 mm[Hg] Dr. Floyd Ricketts DO Work Phone: [facility] 09-13-2024 01:13-0500 Body weight 122.[address] Floyd Ricketts DO Work Phone: [facility] 09-10-2024 08:24-0500 Body mass index (BMI) [Ratio] 35.7 kg/m2 Dr. Floyd Ricketts DO Work Phone: [facility] 09-10-2024 08:24-0500 Body temperature 96.9 [degF] Dr. Floyd Ricketts DO Work Phone: [facility] 09-10-2024 08:24-0500 Diastolic blood pressure 60 mm[Hg] Dr. Floyd Ricketts DO Work Phone: [facility] 09-10-2024 08:24-0500 Heart rate 79 /min Dr. Floyd Ricketts DO Work Phone: [facility] 09-10-2024 08:24-0500 Respiratory rate 18 /min Dr. Floyd Ricketts DO Work Phone: [facility] 09-10-2024 08:24-0500 Systolic blood pressure 144 mm[Hg] Dr. Floyd Ricketts DO Work Phone: [facility] 08-16-2024 01:59-0500 Body weight 122.[address] Floyd Ricketts DO Work Phone: [facility] 08-13-2024 09:06-0500 Body mass index (BMI) [Ratio] 35.7 kg/m2 Dr. Floyd Ricketts DO Work Phone: [facility] 08-13-2024 09:06-0500 Body temperature 96.6 [degF] Dr. Floyd Ricketts DO Work Phone: [facility] 08-13-2024 09:06-0500 Diastolic blood pressure 73 mm[Hg] Dr. Floyd Ricketts DO Work Phone: [facility] 08-13-2024 09:06-0500 Heart rate 100 /min Dr. Floyd Ricketts DO Work Phone: [facility] 08-13-2024 09:06-0500 Respiratory rate 18 /min Dr. Floyd Ricketts DO Work Phone: [facility] 08-13-2024 09:06-0500 Systolic blood pressure 115 mm[Hg] Dr. Floyd Ricketts DO Work Phone: [facility] 07-16-2024 00:28-0500 Body weight 122.[address] Floyd Ricketts DO Work Phone: [facility] 07-15-2024 08:08-0500 Body mass index (BMI) [Ratio] 35.7 kg/m2 Dr. Floyd Ricketts DO Work Phone: [facility] 07-15-2024 08:08-0500 Diastolic blood pressure 79 mm[Hg] Dr. Floyd Ricketts DO Work Phone: [facility] 07-15-2024 08:08-0500 Heart rate 90 /min Dr. Floyd Ricketts DO Work Phone: [facility] 07-15-2024 08:08-0500 Respiratory rate 18 /min Dr. Floyd Ricketts DO Work Phone: [facility] 07-15-2024 08:08-0500 Systolic blood pressure 168 mm[Hg] Dr. Floyd Ricketts DO Work Phone: [facility] 07-08-2024 08:07-0500 Body temperature 96.6 [degF] Dr. Floyd Ricketts DO Work Phone: [facility] 06-25-2024 08:27-0500 Body height 185.[address] Floyd Ricketts DO Work Phone: [facility] 06-25-2024 08:27-0500 Body weight 122.[address] Floyd Ricketts DO Work Phone: [facility] 06-19-2024 16:53-0500 Body temperature 98.1 [degF] Dr. Floyd Ricketts DO Work Phone: [facility] 06-19-2024 16:53-0500 Diastolic blood pressure 77 mm[Hg] Dr. Floyd Ricketts DO Work Phone: [facility] 06-19-2024 16:53-0500 Heart rate 88 /min Dr. Floyd Ricketts DO Work Phone: [facility] 06-19-2024 16:53-0500 Respiratory rate 18 /min Dr. Floyd Ricketts DO Work Phone: [facility] 06-19-2024 16:53-0500 SaO2% (BldA) [Mass fraction] 96 % Dr. Floyd Ricketts DO Work Phone: [facility] 06-19-2024 16:53-0500 Systolic blood pressure 176 mm[Hg] Dr. Floyd Ricketts DO Work Phone: [facility] 06-19-2024 14:42-0500 Body weight [address] Floyd Ricketts DO Work Phone: [facility] 06-10-2024 11:07-0500 Body mass index (BMI) [Ratio] 38.9 kg/m2 Dr. Floyd Ricketts DO Work Phone: [facility] Encounters Encounter Date Encounter Type Care Provider Facility Start: 05-21-2025 ambulatory Floyd Ricketts Facility: [facility] Start: 05-07-2025 End: 05-07-2025 ambulatory Floyd Ricketts Facility:[facility] Start: 03-19-2025 End: 03-19-[address] Floyd Ricketts DO Work Phone: -Laboratory Specimen Start: 03-19-2025 End: 03-19-[address] Felipe Barnett DPEfraín -Laboratory Specimen Work Phone: Start: 03-19-2025 End: 03-19-2025 ambulatory Floyd Ricketts Facility:[facility] Start: 03-17-2025 End: 03-17-[address] Floyd Ricketts DO Work Phone: -[facility]atory [facility] Start: 03-17-2025 End: 03-17-[address] Floyd [facility] Start: 03-17-2025 End: 03-17-2025 ambulatory Floyd [facility] Facility:[facility] Start: 02-26-2025 End: 02-26-[address] Floyd Ricketts DO Work Phone: -Laboratory [facility] Start: 02-26-2025 End: 02-26-[address] Floyd MOODYLaboratory [facility] Start: 02-26-2025 End: 02-26-2025 ambulatory Floyd Jamarcus Facility:[facility] Start: 01-01-2025 End: 01-01-[address] Floyd Ricketts DO Work Phone: [facility] Work Phone: Start: 01-01-2025 End: 01-01-[address] Floyd MOODYLaboratory [facility] Start: 01-01-2025 End: 01-01-2025 ambulatory Floyd LombardoJamarcus Facility:[facility] Start: 11-19-2024 End: 12-11-[address] Felipe Barnett DPM -Wound Healing Ce nter Work Phone: Start: 11-19-2024 End: 12-11-[address] Floyd Ricketts DO Work Phone: [facility] Work Phone: Start: 11-05-2024 End: 11-12-2024 ambulatory Sylvain Ruiz Facility:[facility] Start: 11-05-2024 End: 11-12-[address] Felipe Barnett DPM -Wound Healing Ce nter Work Phone: Start: 10-08-2024 End: 10-13-[address] Floyd Ricketts DO Work Phone: [facility] Work Phone: Start: 10-08-2024 End: 10-13-[address] Felipe Barnett DPM -Wound Healing Ce nter Work Phone: Start: 10-08-[address] Felipe pérez DPM -Wound Healing Center Work Phone: Start: 10-02-2024 End: 10-02-[address] Floyd Ricketts DO Work Phone: [facility] Work Phone: Start: 10-02-2024 End: 10-02-[address] Floyd Ricketts DO -[facility] Start: 10-02-2024 End: 10-02-2024 ambulatory Floyd Ricketts Facility:[facility] Start: 09-10-2024 End: 09-12-2024 ambulatory [facility] Facility:[facility] Start: 09-10-2024 End: 09-12-[address] Felipe Barnett DPM -Wound Healing Ce nter Work Phone: Start: 08-13-2024 End: 08-15-2024 ambulatory [facility] Facility:[facility] Start: 08-13-2024 End: 08-15-[address] Felipe Barnett DPM -Wound Healing Ce nter Work Phone: Start: 07-15-2024 End: 07-15-2024 ambulatory [facility] Facility:[facility] Start: 07-15-2024 End: 07-15-[address] Felipe Barnett DPM -Wound Healing Ce nter Work Phone: Start: 06-19-2024 Non-patient / Non-visit Dr. Floyd Thompson DO -[facility] Work Phone: Start: 06-18-2024 Non-patient / Non-visit Kajal Levy PA -[facility] Start: 06-17-2024 Non-patient / Non-visit Dr. Floyd Thompson [facility] Work Phone: Start: 06-16-2024 Non-patient / Non-visit Dr. Tyson fung MD -[facility] Start: 06-16-2024 Non-patient / Non-visit Dr. Floyd Thompson [facility] Work Phone: Start: 06-15-2024 Non-patient / Non-visit Dr. Tyson Camejo [facility] Work Phone: Start: 06-14-2024 Non-patient / Non-visit Dr. Tyson Camejo [facility] Work Phone: Start: 06-13-2024 Non-patient / Non-visit Dr. Tyson Camejo [facility] Work Phone: Start: 06-12-2024 Non-patient / Non-visit Dr. Tyson Camejo [facility] Work Phone: Start: 06-11-2024 Non-patient / Non-visit Dr. Floyd Thompson [facility] Work Phone: Start: 06-11-2024 Non-patient / Non-visit Dr. Tyson fung MD -[facility] Start: 06-10-2024 [facility] Facility:[facility] Start: 06-10-2024 End: 06-19-2024 Evaluation and management of inpatient Dr. Floyd Shah DO [facility] Work Phone: Start: 08-21-2017 End: 08-21-2017 [facility] Procedures Date Procedure Procedure Detail Performing Clinician Start: 03-19-[address] Floyd Ricketts DO Work Phone: Start: 03-19-2025 Gram stain microscopy D aleyda Ricketts DO Work Phone: Start: 10-15-[address] Floyd Ricketts DO Work Phone: Start: 10-15-2024 Gram stain microscopy Mary Ricketts DO Work Phone: Start: 10-15-2024 Microbial culture, routine Dr. Floyd Ricketts DO Work Phone: Start: 07-15-[address] Floyd Ricketts DO Work Phone: Start: 07-15-2024 Gram stain microscopy D aleyda Ricketts DO Work Phone: Start: 07-15-2024 Microbial [...] Work Phone: Start: 06-10-2024 Gram stain microscopy Mary Ricketts DO Work Phone: Start: 06-10-2024 Microbial culture, routine Dr. Floyd Ricketts DO Work Phone: Start: 06-10-[address] Michael Ricketts DO Work Phone: Start: 06-10-2024 X-ray of both feet Dr. Floyd Ricketts DO Work Phone: History of tonsillectomy S/P tonsillectom y Dr. Floyd Ricketts DO Work Phone: Plan of Treatment Date Care Activity Detail Author Start: 03-19-2025 Microbial culture, routine Wound Cul ture [facility] Start: 03-19-2025 Source specific culture [facility] Start: 06-19-[address] [facility] Start: 06-19-2024 Referral for further care [facility] Start: 06-18-2024 Application, wound VAC [facility] Start: 06-17-2024 Bedrest [facility] Start: 06-17-2024 Elevation of head of bed [facility] Start: 06-17-2024 Notification of physician [facility] Start: 06-17-2024 Provision of activit y privileges [facility] Start: 06-17-2024 Pulse taking [facility] Start: 06-17-2024 Taking patient vital signs [facility] Start: 06-17-2024 End: 06-17-2024 [facility] Start: 06-16-2024 Catheterization of vein [facility] Start: 06-16-2024 Medication not administered [facility] Start: 06-16-[address] [facility] Start: 06-16-2024 [facility] Start: 06-15-2024 [facility] Start: 06-14-2024 [facility] Start: 06-13-2024 Consultation for treatment [facility] Start: 06-11-2024 Referral to service [facility] Start: 06-11-2024 Referral to vascular surgeon [facility] Start: 06-11-2024 [facility] Start: 06-10-2024 [facility] Start: 06-10-2024 Following clinical p athway protocol [facility] Start: 06-10-2024 Assessment of risk o f venous thromboembolism [facility] Start: 06-10-2024 Care regimes management [facility] Start: 11-26-2024 Catheterization of vein [facility] Start: 06-10-2024 Consultation [facility] Start: 06-10-2024 Insertion of cathete r into peripheral vein [facility] Start: 06-10-2024 Notification of physician [facility] Start: 06-10-2024 Providing care accor ding to standard [facility] Start: 06-10-2024 Referral to occupati onal therapist [facility] Start: 06-10-2024 Referral to concrete vault maker [facility] Start: 06-10-2024 Referral to service [facility] Start: 06-10-2024 End: 06-10-2024 [facility] Start: 06-10-2024 Admission procedure [facility] Start: 06-10-2024 Patient referral to dietitian [facility] Patient referral [facility] Work Phone: Payers Date Payer Category Payer Medicaid [id number] 2024 Medicare [id number] [id number] 2024 Self-pay Unknown [id number] 2.16.8 40.1.402832.3.579.2.462 Unknown [id number] 2.16.8 40.1.698691.3.579.2.462 Unknown [id number] 2.16.8 40.1.778264.3.579.2.462 Unknown [id number] 2.16.8 40.1.545422.3.579.2.462 Unknown [id number] 2.16.8 40.1.667532.3.579.2.462 Unknown [id number] 2.16.8 40.1.853272.3.579.2.462 Unknown [id number] 2.16.8 40.1.001032.3.579.2.462 Unknown [id number] 2.16.8 40.1.499711.3.579.2.462 Unknown [id number] 2.16.8 40.1.150221.3.579.2.462 Unknown [id number] 2.16.8 40.1.936840.3.579.2.462 Unknown [id number] 2.16.8 40.1.415004.3.579.2.462 Unknown [id number] 2.16.8 40.1.770458.3.579.2.462 Unknown [id number] 2.16.8 40.1.835953.3.579.2.462 Unknown [id number] 2.16.8 40.1.351758.3.579.2.462 Unknown [id number] 2.16.8 40.1.316237.3.579.2.462 Unknown [id number] 2.16.8 40.1.646180.3.579.2.462 Unknown [id number] 2.16.8 40.1.963254.3.579.2.462 Unknown [id number] 2.16.8 40.1.896993.3.579.2.462 Unknown [id number] 2.16.8 40.1.338313.3.579.2.462 Unknown [id number] 2.16.8 40.1.461828.3.579.2.462 Unknown [id number] 2.16.8 40.1.406935.3.579.2.462 Unknown [id number] 2.16.8 40.1.220663.3.579.2.462 Unknown [id number] 2.16.8 40.1.740214.3.579.2.462 Unknown [id number] 2.16.8 40.1.030241.3.579.2.462 Unknown [id number] 2.16.8 40.1.935443.3.579.2.462 Unknown [id number] 2.16.8 40.1.061808.3.579.2.462 Unknown [id number] 2.16.8 40.1.854338.3.579.2.462 Unknown [id number] 2.16.8 40.1.235091.3.579.2.462 Social History Date Type Detail Facility Start: 06-10-2024 End: 06-10-2024 Tobacco smoking status NHIS Ex-smoker (finding) [facility] Start: 03-08-2020 None None [facility] Start: 03-08-2020 Alone Alone [facility] Start: 06-12-2020 Non-smoker Non-smoker [facility] Start: 10-09-2024 End: 10-14-2024 Sex Male (finding) [facility] Start: 1950 Sex Assigned At Male [facility] Medical Equipment Procedure Code Equipment Code Equipment [...] Result Facility 06-19-2024 Functional status Ambulates;Bedside Commo [facility] Work Phone: Mental Status Date Assessment Result Facility 06-19-2024 Cognitive function Voice/Name [facility] Work Phone: 06-18-2024 Cognitive function Appropriate;[facility] Work Phone: Clinical Notes 06-10-2024 to 11-19-2024 Note Date & Type Note Facility 11-19-2024 Progress note Note Date/Time November 19, 2024 11:09a m [facility] [address] [place] [address] Progress Note - Wound Care 11/19/24 1107 MR#: [id number] Acct: [id number] Name: EMILEE ARAGON Rep #:[id number] : 1950 74 From: Felipe TRUONG PCP: [...] Recorded Date Recorded By Document 11/19/24 09:49 [id number] 11/19/24 09:57 11/19/24 09:49 - Today's Visit Information Type of service Follow-up Visit (Physician/STATION MECHANIC APPRENTICE ) Arrival Mode Wheelchair Transfer Assistance None [...] Recorded Date Recorded By Document 11/19/24 09:49 [id number] 11/19/24 09:57 11/19/24 09:49 Wound Center Nurse [...] Recorded Date Recorded By Document 11/19/24 10:37 [id number] 11/19/24 10:40 11/19/24 10:37 Wound Center Nurse [...] Recorded Date Recorded By Document 11/19/24 10:46 [id number] 11/19/24 10:46 11/19/24 10:46 Wound Care Center [...] Cosigner Signature (if applicable): CC: ~ Signed [facility] Work Phone: 1(316) 957-182305-07-2025 Progress note [facility] [address] [place] [address] Progress Note - Wound Care 11/19/24 1107 MR#: [id number] Acct: [id number] Name: EMILEE ARGAON Rep #:[id number] : 1950 74 From: Felipe TRUONG PCP: [...] Start: 11/19/24 09:49 Freq: Status: Active Protocol: LANIE.LOWEMILY Activity Type Activity Date Activity User E-sign Co-sign Detail Recorded Client Recorded Date Recorded By Document 11/19/24 09:49 [id number] 11/19/24 09:57 11/19/24 09:49 - Today's Visit Information Type of service Follow-up Visit (Physician/STATION MECHANIC APPRENTICE ) Arrival Mode Wheelchair Transfer Assistance None [...] 0-10 Numeric Is Patient Pain Free? Yes LANIE - Nurse 1 - General Ulcer Measurement Start: 11/19/24 09:49 Freq: Status: Active Protocol: Activity Type Activity Date Activity User E-sign Co-sign Detail Recorded Client Recorded Date Recorded By Document 11/19/24 09:49 [id number] 11/19/24 09:57 11/19/24 09:49 Wound Center Nurse [...] Recorded Date Recorded By Document 11/19/24 10:37 JF [id number] 11/19/24 10:40 JF 11/19/24 10:37 Wound Center Nurse 2 4 [...] Recorded Date Recorded By Document 11/19/24 10:46 [id number] 11/19/24 10:46 11/19/24 10:46 Wound Care Center [...] Cosigner Signature (if applicable): CC: ~ Signed [facility]04-23-2025 Evaluation note* Diagnosis Onset Date Resolution Status Admit Date Cutaneous abscess of left foot acute November 05, 2024 9:45am 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 November 05, 9:45am 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 November 19, 2024 8:17am [facility] Work Phone: 1(413) 432-137303-26-2025 Progress note Author Felipe Barnett [facility] Note Date/Time October 08, 2024 10: 04am [facility] [address] [place] [address] Progress Note - Wound Care 10/08/24 1001 MR#: [id number] Acct: [id number] Name: EMILEE ARAGON Rep #:[id number] : 1950 74 From: Felipe TRUONG PCP: [...] Date Recorded By Document 09/17/24 10:14 KW [id number] 09/17/24 10:16 KW Document 09/24/24 10:33 GM [id number] 09/24/24 10:35 GM Document 10/01/24 09:00 MT [id number] 10/01/24 09:04 MT Document 10/01/24 09:06 MT [id number] 10/01/24 09:06 MT Document 10/08/24 08:35 ML [id number] 10/08/24 08:37 ML 09/17/24 09/24/24 10/01/24 10:14 10:33 09:00 - Today's Visit Information Type of service Initial Visit Follow-up Visit (Physician/STATION MECHANIC APPRENTICE ) Arrival Mode Wheelchair Ambulatory Transfer Assistance [...] Visit Information Type of service Follow-up Visit (Physician/STATION MECHANIC APPRENTICE ) Arrival Mode Ambulatory, Wheelchair Transfer Assistance [...] Date Recorded By Document 09/17/24 10:14 KW [id number] 09/17/24 10:16 KW Document 09/24/24 10:33 GM [id number] 09/24/24 10:35 GM Document 10/01/24 09:00 MT [id number] 10/01/24 09:04 MT Document 10/08/24 08:35 ML [id number] 10/08/24 08:37 ML 09/17/24 09/24/24 10/01/24 10:14 [...] (67-100%) Medium (34-66%) Large (67-100%) -Granulation Quality Bee Branch Red Pale,Bee Branch -Slough/Fibrin Yes -Necrosis Amt Small (1-33%) Small [...] Recorded Date Recorded By Document 09/17/24 10:32 [id number] 09/17/24 10:37 Document 09/24/24 10:46 [id number] 09/24/24 10:52 Document 10/01/24 09:21 JF [id number] 10/01/24 09:25 JF Document 10/08/24 09:06 JF [id number] 10/08/24 09:08 JF 09/17/24 09/24/24 10/01/24 10:32 10:46 09:21 [...] Date 02/13/29 03/16/29 03/16/29 -Product Lot Number [id number] 028 027 -Percent Used 100 100 100 -Lot number of Saline Used [id number] -Bleeding Controlled with Pressure Pressure Pressure -Treatment [...] Mesh -Expiration Date 03/16/29 -Product Lot Number [id number] -Percent Used 100 -Lot number of Saline Used [id number] -Bleeding Controlled with Pressure -Treatment Response Procedure [...] Date Recorded By Document 09/17/24 10:54 ML [id number] 09/17/24 10:55 ML Document 09/24/24 11:03 DL [id number] 09/24/24 11:04 DL Document 10/01/24 09:49 CP [id number] 10/01/24 09:50 CP Document 10/08/24 09:16 JF [id number] 10/08/24 09:16 JF 09/17/24 09/24/24 10/01/24 10:54 [...] Summary of Care Provided Yes Facility Type Custodial Care Web Site Designer Care Facility Facility Orders Sent Yes Yes [...] Cosigner Signature (if applicable): CC: ~ Signed [facility] Work Phone: 1(601) 934-305703-26-[address] [facility] [address] [place] [address] Progress Note - Wound Care 10/08/24 1001 MR#: [id number] Acct: [id number] Name: EMILEE ARAGON Rep #:[id number] : 1950 74 From: Felipe TRUONG PCP: [...] Date Recorded By Document 09/17/24 10:14 KW [id number] 09/17/24 10:16 KW Document 09/24/24 10:33 GM [id number] 09/24/24 10:35 GM Document 10/01/24 09:00 MT [id number] 10/01/24 09:04 MT Document 10/01/24 09:06 MT [id number] 10/01/24 09:06 MT Document 10/08/24 08:35 ML [id number] 10/08/24 08:37 ML 09/17/24 09/24/24 10/01/24 10:14 10:33 09:00 WC - Today's Visit Information Type of service Initial Visit Follow-up Visit (Physician/STATION MECHANIC APPRENTICE ) Arrival Mode Wheelchair Ambulatory Transfer Assistance [...] Visit Information Type of service Follow-up Visit (Physician/STATION MECHANIC APPRENTICE ) Arrival Mode Ambulatory, Wheelchair Transfer Assistance [...] Date Recorded By Document 09/17/24 10:14 KW [id number] 09/17/24 10:16 KW Document 09/24/24 10:33 GM [id number] 09/24/24 10:35 GM Document 10/01/24 09:00 MT [id number] 10/01/24 09:04 MT Document 10/08/24 08:35 ML [id number] 10/08/24 08:37 ML 09/17/24 09/24/24 10/01/24 10:14 [...] (67-100%) Medium (34-66%) Large (67-100%) -Granulation Quality Bee Branch Red Pale,Bee Branch -Slough/Fibrin Yes -Necrosis Amt Small (1-33%) Small [...] Recorded Date Recorded By Document 09/17/24 10:32 [id number] 09/17/24 10:37 Document 09/24/24 10:46 [id number] 09/24/24 10:52 Document 10/01/24 09:21 [id number] 10/01/24 09:25 Document 10/08/24 09:06 [id number] 10/08/24 09:08 09/17/24 09/24/24 10/01/24 10:32 10:46 [...] Date 02/13/29 03/16/29 03/16/29 -Product Lot Number [id number] 028 027 -Percent Used 100 100 100 -Lot number of Saline Used [id number] -Bleeding Controlled with Pressure Pressure Pressure -Treatment [...] Mesh -Expiration Date 03/16/29 -Product Lot Number [id number] -Percent Used 100 -Lot number of Saline Used [id number] -Bleeding Controlled with Pressure -Treatment Response Procedure [...] Date Recorded By Document 09/17/24 10:54 ML [id number] 09/17/24 10:55 ML Document 09/24/24 11:03 DL [id number] 09/24/24 11:04 DL Document 10/01/24 09:49 CP [id number] 10/01/24 09:50 CP Document 10/08/24 09:16 JF [id number] 10/08/24 09:16 JF 09/17/24 09/24/24 10/01/24 10:54 [...] Summary of Care Provided Yes Facility Type Web Site Designer Care Custodial Care Facility Facility Orders Sent Yes Yes [...] Cosigner Signature (if applicable): CC: ~ Signed [facility]03-19-2025 Progress note Author Felipe Barnett [facility] Note Date/Time October 01, 2024 10: 53am [facility] [address] [place] [address] Progress Note - Wound Care 10/01/24 1051 MR#: [id number] Acct: [id number] Name: EMILEE ARAGON Rep #:[id number] : 1950 74 From: Felipe TRUONG PCP: [...] Start: 09/17/24 10:13 Freq: Status: Active Protocol: .CLAIRE Activity Type Activity Date Activity User E-sign Co-sign Detail Recorded Client Recorded Date Recorded By Document 09/17/24 10:14 KW [id number] 09/17/24 10:16 KW Document 09/24/24 10:33 GM [id number] 09/24/24 10:35 GM Document 10/01/24 09:00 MT [id number] 10/01/24 09:04 MT Document 10/01/24 09:06 MT [id number] 10/01/24 09:06 MT 09/17/24 09/24/24 10/01/24 10:14 10:33 09:00 - Today's Visit Information Type of service Initial Visit Follow-up Visit (Physician/STATION MECHANIC APPRENTICE ) Arrival Mode Wheelchair Ambulatory Transfer Assistance [...] Visit Information Type of service Follow-up Visit (Physician/STATION MECHANIC APPRENTICE ) Arrival Mode Ambulatory, Wheelchair Transfer Assistance [...] Date Recorded By Document 09/17/24 10:14 KW [id number] 09/17/24 10:16 KW Document 09/24/24 10:33 GM [id number] 09/24/24 10:35 GM Document 10/01/24 09:00 MT [id number] 10/01/24 09:04 MT 09/17/24 09/24/24 10/01/24 10:14 10:33 09:00 Wound [...] (67-100%) Medium (34-66%) Large (67-100%) -Granulation Quality Bee Branch Red Pale,Bee Branch -Slough/Fibrin Yes -Necrosis Amt Small (1-33%) Small [...] Recorded Date Recorded By Document 09/17/24 10:32 [id number] 09/17/24 10:37 Document 09/24/24 10:46 [id number] 09/24/24 10:52 Document 10/01/24 09:21 [id number] 10/01/24 09:25 JF 09/17/24 09/24/24 10/01/24 10:32 [...] Mesh Epifix Mesh Epifix Mesh -Expiration Date 0803/16/29 03/16/29 -Product Lot Number [id number] 028 027 -Percent Used 100 100 100 -Lot number of Saline Used [id number] -Bleeding Controlled with Pressure Pressure Pressure -Treatment [...] Date Recorded By Document 09/17/24 10:54 ML [id number] 09/17/24 10:55 ML Document 09/24/24 11:03 DL [id number] 09/24/24 11:04 DL Document 10/01/24 09:49 CP [id number] 10/01/24 09:50 CP 09/17/24 09/24/24 10/01/24 10:54 [...] Summary of Care Provided Yes Facility Type Web Site Designer Care Custodial Care Facility Facility Orders Sent Yes Yes [...] 10/01/24 1053 <Electronically signed by Felipe Barnett DPM> Cosigner Signature (if applicable): CC: ~ Signed [facility] Work Phone: 1(892) 262-375303-19-2025 Progress note [facility] [address] [place] [address] Progress Note - Wound Care 10/01/24 1051 MR#: [id number] Acct: [id number] Name: EMILEE ARAGON Rep #:[id number] : 1950 74 From: Felipe TRUONG PCP: [...] Start: 09/17/24 10:13 Freq: Status: Active Protocol: LANIE.CLAIRE Activity Type Activity Date Activity User E-sign Co-sign Detail Recorded Client Recorded Date Recorded By Document 09/17/24 10:14 KW [id number] 09/17/24 10:16 KW Document 09/24/24 10:33 GM [id number] 09/24/24 10:35 GM Document 10/01/24 09:00 MT [id number] 10/01/24 09:04 MT Document 10/01/24 09:06 MT [id number] 10/01/24 09:06 MT 09/17/24 09/24/24 10/01/24 10:14 10:33 09:00 - Today's Visit Information Type of service Initial Visit Follow-up Visit (Physician/STATION MECHANIC APPRENTICE ) Arrival Mode Wheelchair Ambulatory Transfer Assistance [...] Visit Information Type of service Follow-up Visit (Physician/STATION MECHANIC APPRENTICE ) Arrival Mode Ambulatory, Wheelchair Transfer Assistance [...] Date Recorded By Document 09/17/24 10:14 KW [id number] 09/17/24 10:16 KW Document 09/24/24 10:33 [id number] 09/24/24 10:35 GM Document 10/01/24 09:00 MT [id number] 10/01/24 09:04 MT 09/17/24 09/24/24 10/01/24 10:14 10:33 09:00 Wound [...] (67-100%) Medium (34-66%) Large (67-100%) -Granulation Quality Bee Branch Red Pale,Bee Branch -Slough/Fibrin Yes -Necrosis Amt Small (1-33%) Small [...] Date Recorded By Document 09/17/24 10:32 AISHWARYA [id number] 09/17/24 10:37 AISHWARYA Document 09/24/24 10:46 AISHWARYA RT1571 09/24/24 10:52 Document 10/01/24 09:21 AISHWARYA LO2070 10/01/24 09:25 JF 09/17/24 09/24/24 10/01/24 10:32 [...] Date 02/13/29 03/16/29 03/16/29 -Product Lot Number [id number] 028 027 -Percent Used 100 100 100 -Lot number of Saline Used [id number] -Bleeding Controlled with Pressure Pressure Pressure -Treatment [...] Date Recorded By Document 09/17/24 10:54 ML [id number] 09/17/24 10:55 ML Document 09/24/24 11:03 DL [id number] 09/24/24 11:04 DL Document 10/01/24 09:49 CP [id number] 10/01/24 09:50 CP 09/17/24 09/24/24 10/01/24 10:54 [...] Summary of Care Provided Yes Facility Type Custodial Care Custodial Care Facility Facility Orders Sent Yes Yes [...] Cosigner Signature (if applicable): CC: ~ Signed [facility]03-12-2025 Progress note Author Felipe Barnett [facility] Note Date/Time September 24, 2024 1:[address] [facility] [address] [place] [address] Progress Note - Wound Care 09/24/24 1310 MR#: [id number] Acct: [id number] Name: EMILEE ARAGON Rep #:[id number] : 1950 74 From: Felipe Hernandez PM [...] Post-Debridement Measurements and Additional Note: Post-Debridement Measurements/Treatment [facility] Nurse 1 - General Ulcer Assessment Start: 09/17/24 10:13 Freq: Status: Active Protocol: FIDENCIO Activity Type Activity Date Activity User E-sign Co-sign Detail Recorded Client Recorded Date Recorded By Document 09/17/24 10:14 KW [id number] 09/17/24 10:16 KW Document 09/24/24 10:33 [id number] 09/24/24 10:35 09/17/24 09/24/24 10:14 10:33 - Today's Visit Information Type of service Initial Visit Follow-up Visit (Physician/STATION MECHANIC APPRENTICE ) Arrival Mode Wheelchair Ambulatory Transfer Assistance [...] Date Recorded By Document 09/17/24 10:14 KW [id number] 09/17/24 10:16 KW Document 09/24/24 10:33 [id number] 09/24/24 10:35 09/17/24 09/24/24 10:14 10:33 Wound [...] Amt Large (67-100%) Medium (34-66%) -Granulation Quality Bee Branch Red -Slough/Fibrin Yes -Necrosis Amt Small (1-33%) [...] Recorded Date Recorded By Document 09/17/24 10:32 [id number] 09/17/24 10:37 Document 09/24/24 10:46 [id number] 09/24/24 10:52 09/17/24 09/24/24 10:32 10:46 Wound [...] -Expiration Date 02/13/29 03/16/29 -Product Lot Number [id number] 028 -Percent Used 100 100 -Lot number of Saline Used [id number] -Bleeding Controlled with Pressure Pressure -Treatment Response [...] Date Recorded By Document 09/17/24 10:54 ML [id number] 09/17/24 10:55 ML Document 09/24/24 11:03 DL [id number] 09/24/24 11:04 DL 09/17/24 09/24/24 10:54 11:03 [...] Status Wheelchair Transportation Private Auto Facility Type Custodial Care Facility Orders Sent Yes Assessment/Plan Assessment/Plan [...] Cosigner Signature (if applicable): CC: ~ Signed [facility] Work Phone: 1(525) 943-150903-12-2025 Progress note [facility] [address] [place] [address] Progress Note - Wound Care 09/24/24 1310 MR#: [id number] Acct: [id number] Name: EMILEE ARAGON Rep #:[id number] : 1950 74 From: Felipe TRUONG PCP: [...] Date Recorded By Document 09/17/24 10:14 KW [id number] 09/17/24 10:16 KW Document 09/24/24 10:33 GM [id number] 09/24/24 10:35 GM 09/17/24 09/24/24 10:14 10:33 - Today's Visit Information Type of service Initial Visit Follow-up Visit (Physician/STATION MECHANIC APPRENTICE ) Arrival Mode Wheelchair Ambulatory Transfer Assistance [...] Date Recorded By Document 09/17/24 10:14 KW [id number] 09/17/24 10:16 KW Document 09/24/24 10:33 GM IR1357 09/24/24 10:35 GM 09/17/24 09/24/24 10:14 10:33 [...] Amt Large (67-100%) Medium (34-66%) -Granulation Quality Bee Branch Red -Slough/Fibrin Yes -Necrosis Amt Small (1-33%) [...] Recorded Date Recorded By Document 09/17/24 10:32 [id number] 09/17/24 10:37 JF Document 09/24/24 10:46 [id number] 09/24/24 10:52 09/17/24 09/24/24 10:32 10:46 Wound [...] -Expiration Date 02/13/29 03/16/29 -Product Lot Number [id number] 028 -Percent Used 100 100 -Lot number of Saline Used [id number] -Bleeding Controlled with Pressure Pressure -Treatment Response [...] Date Recorded By Document 09/17/24 10:54 ML [id number] 09/17/24 10:55 ML Document 09/24/24 11:03 DL [id number] 09/24/24 11:04 DL 09/17/24 09/24/24 10:54 11:03 [...] Status Wheelchair Transportation Private Auto Facility Type Custodial Care Facility Orders Sent Yes Assessment/Plan Assessment/Plan [...] Cosigner Signature (if applicable): CC: ~ Signed [facility]03-05-2025 Progress note Author Felipe Barnett [facility] Note Date/Time September 17, 2024 10:0 4am [facility] [address] [place] [address] Progress Note - Wound Care 09/17/24 1100 MR#: [id number] Acct: [id number] Name: EMILEE ARAGON Rep #:[id number] : 1950 74 From: Felipe TRUONG PCP: [...] Date Recorded By Document 09/17/24 10:14 KW [id number] 09/17/24 10:16 KW 09/17/24 10:14 - Today's [...] Date Recorded By Document 09/17/24 10:14 ELINA [id number] 09/17/24 10:16 KW 09/17/24 10:14 Wound Center [...] Attached -Granulation Amt Large (67-100%) -Granulation Quality Bee Branch -Necrosis Amt Small (1-33%) -Necrotic Tissue Type [...] Date Recorded By Document 09/17/24 10:32 AISHWARYA [id number] 09/17/24 10:37 AISHWARYA 09/17/24 10:32 Wound Center [...] Mesh -Expiration Date 02/13/29 -Product Lot Number [id number] -Percent Used 100 -Lot number of Saline Used [id number] -Bleeding Controlled with Pressure -Treatment Response Procedure [...] Date Recorded By Document 09/17/24 10:54 ML [id number] 09/17/24 10:55 ML 09/17/24 10:54 Wound Care [...] 09/17/24 1104 <Electronically signed by Felipe Barnett DPEfraín> Cosigner Signature (if applicable): CC: ~ Signed [facility] Work Phone: 1(292) 722-814803-05-[address] [facility] [address] [place] [address] Progress Note - Wound Care 09/17/24 1100 MR#: [id number] Acct: [id number] Name: EMILEE ARAGON Rep #:[id number] : 1950 74 From: Felipe TRUONG PCP: Dr. Floyd Ricketts, DO Status:REG R Location: History of Present Illness Date of [...] Date Recorded By Document 09/17/24 10:14 KW [id number] 09/17/24 10:16 KW 09/17/24 10:14 WC - [...] Date Recorded By Document 09/17/24 10:14 KW [id number] 09/17/24 10:16 KW 09/17/24 10:14 Wound Center [...] Attached -Granulation Amt Large (67-100%) -Granulation Quality Bee Branch -Necrosis Amt Small (1-33%) -Necrotic Tissue Type [...] Date Recorded By Document 09/17/24 10:32 AISHWARYA [id number] 09/17/24 10:37 AISHWARYA 09/17/24 10:32 Wound Center [...] Mesh -Expiration Date 02/13/29 -Product Lot Number [id number] -Percent Used 100 -Lot number of Saline Used [id number] -Bleeding Controlled with Pressure -Treatment Response Procedure [...] Date Recorded By Document 09/17/24 10:54 ML [id number] 09/17/24 10:55 ML 09/17/24 10:54 Wound Care [...] with Dr. Barnett in 1 week. 09/17/24 9655 Cosigner Signature (if applicable): CC: ~ Signed [facility]02-26-2025 Evaluation note* Diagnosis Onset Date Resolution Status Admit Date Other specified peripheral vascular diseases acute September 10, 2024 8:30am Ulcer of left foot due to type 2 diabetes mellitus acute 2024 8:30am Non-pressure chronic ulcer o f [...] of muscle chronic November 19, 2024 8:17am [facility] Work Phone: 1(385) 259-445001-29-2025 Evaluation note* Diagnosis Onset Date Resolution Status [...] of muscle chronic November 19, 2024 8:17am [facility] Work Phone: 1(772) 161-831712-05-2024 [facility] Medical Records Department [address] [place] [address] Discharge Summary 06/19/24 1449 MR#: [id number] Acct: [id number] Name: EMILEE ARAGON Rep #: [id number] : 1950 74 From: Floyd Shah DO PCP: Dr. Floyd Ricketts DO Status:DIS IN Location: [place] [address] Providers Date of Admission: 06/10/24 Date of Discharge: 06/19/24 Primary Care Physician: Dr. 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 Gangrene left foot-secondary to peripheral vascular disease from type 2 diabetes poorly controlled-patient remains on IV antibiotics at this time per infectious diseases, patient underwent an angiogram and intervention which improved blood flow to the left foot #2 type 2 gfzigmio-nflzgwvauymv-xtfuftt will have fingerstick blood sugars monitored and [...] PO DAILY supplement 09/26/17 blood sugar diagnostic (Dacentecuch Verio test strips) #100 ea 03/18/20 aspirin 81 mg chewable tablet 81 mg PO DAILY@0800 blood thinner 04/18/21 atorvastatin 20 mg tablet 20 mg PO QHS Cholesterol 04/18/21 clopidogrel 75 mg tablet 75 mg PO DAILY blood thinner 04/18/21 geriatric rxpaxinb-iiay-plvp 1 tab PO DAILY supplement 04/18/21 insulin [...] was seen in the emergency room at [facility] with complaints of a wound on [...] and OT, it was (more content not included)...[facility]11-26-2024 Evaluation note* Diagnosis Onset Date Resolution Status Admit Date Atherosclerosis of [place] arteries of extremities with gangrene, left leg acute May 9:44am Other specified peripheral vascular diseases acute June 10, 2024 9:44am Type 2 diabetes mellitus wit h foot ulcer acute June 10 9:44am HTN (hypertension) chronic Novemb er 2023 9:44am 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 Floyd Ricketts, DO Status:REG ER Location: ED Assessment Plan Assessment/Plan (1) Diabetic ulcer of left foot: (2) Acute osteomyelitis of left foot: (3) Type 2 diabetes mellitus with foot ulcer: (4) Other specified peripheral vascular diseases: (5) Type 2 diabetes mellitus with diabetic polyneuropathy: QUALIFIERS: Diabetes mellitus fci insulin use: with terminal system operator use Qualified Code(s): E11.42 - Type 2 diabetes mellitus with diabetic polyneuropathy; Z79.4 - snf (current) use of insulin (6) Gangrene, not [...] I was consulted from the emergency room. [facility] Medical History Wears glasses Bladder disease [...] DAILY blood thinner 04/18/21 Unknown History geriatric ujcihqvp-xhdw-yxoo 1 tab PO DAILY 04/18/21 Unknown History [...] (Auto) 1.000 H, N (more content not included)...[facility] Evaluation noteNo assessment information availableW[facility] Work Phone: Reason for referral (narrative)No reason for referral information availableWOhio State [facility] Hospital Work Phone: Summary Purpose Family History No Family History Records Found Relationship Condition Age at Onset Recorded Date/T eugene father Diabetes mellitus Unknown Cardiac disease Unknown Hypertension Unknown Advance Directives No Advanced Directives Records Found Advance Directive Response Recorded Date/ Time Living Will Yes June 10 12:03pm Do you have a Healthcare Power of Multifocal Lens Inspector? Yes June 10, 2024 12:03pm Name of Medical Power of Multifocal Lens Inspector Neida June 10, 2024 12:03pm Advance Directives [...] Reason for Visit Admit Date Atherosclerosis of [place] ar teries of extremities with gangrene, left leg June 10, 2024 9:44am Other specified peripheral vascular dise ases June 10, 2024 9:44am Type 2 diabetes mellitus with foot ulcer June 10, 2024 9:44am HTN (hypertension) June 10, 2024 9:44am PAD (peripheral artery disease) June 10, 2024 9:44am Acidosis, lactic June 10, 2024 9:44am Acute osteomyelitis of left foot Novembe r 2023 9:44am Diabetic ulcer of left [...] 15, 2024 8:15am Acute painful diabetic polyneuropathy [facility] 2024 8:45am Other specified peripheral vascular dise [...] Admit Date Acute painful diabetic polyneuropathy Ian rodriguez 2024 8:45am Other specified peripheral vascular dise [...] 2024 8:17am Chief Complaint Admit Date WOUND November 05, 2024 9:4 5am WOUND November 19, 2024 8:17am Reason for Visit Admit Date Cutaneous abscess of left foot October 9:45am [...] section and content) DATE CREATED AUTHOR 01/07/2018 [facility] DATE CREATED AUTHOR AUTHOR'S ORGANIZ ATION 05/23/2025 [facility] Care Teams (unrecognized sec tion and content) Team Status: Active Member Role Status Dates Dr. Floyd Ricketts DO Primary Care Provider Active Team Status: Inactive Member Role Status Dates Dr. Floyd Ricketts DO Primary Care Provider Active Start: June 10, 2024 End: June 19, 2024 Dr. Carlos Cazares DO Emergency Provider Active Start: June 10, 2024 End: June 19, 2024 Dr. Floyd Shah DO Admit Provider Active S tart: June 10, 2024 End: June 19, 2024 Dr. Floyd Shah DO Attending Provider Active Start: June 10, 2024 End: June 19, 2024 Dr. Floyd Shah DO Other Provider Active S tart: June 10, [...] Role Status Dates Dr. Floyd Ricketts , DO Primary Care Provider Active Start: June 11, 2024 Dr. Carlos Cazares , DO Emergency Provider Active Start: June 11, 2024 Dr. Floyd Shah , DO Admit Provider Active S tart: June 11, 2024 Dr. Floyd Shah , DO Attending Provider Active Start: June 11, 2024 Dr. Floyd Shah , DO Other Provider Active S tart: June 11, 2024 Dr. Kyle Rowland MD Other Provider Active Start: June 11, 2024 Dr. Sylvain Ruiz DPM Other Provider Active Start: June 11, 2024 Dr. Tyson Kunz MD Other Provider Active Start : June 11, 2024 Team Status: Active Member Role Status Dates Dr. Floyd Ricketts , DO Primary Care Provider Active Start: June [...] : June 12, 2024 Dr. Tyson Alvarez , Attending Provider Active Start: June 12, 2024 Dr. Tyson Alvarez , DO Other Provider Active Star t: June 12, 2024 Team Status: Active Member Role Status Dates Dr. Floyd Ricketts , DO Primary Care Provider Active Start: June 13, 2024 Dr. Carlos Cazares , DO Emergency Provider Active Start: June 13, 2024 Dr. Floyd Shah , DO Admit Provider Active S tart: June 13, 2024 Dr. Floyd Shah DO Other Provider [...] DO Primary Care Provider Active Start: June 14, 2024 Dr. Carlos Cazares , Emergency Provider Active Start: June 14, 2024 [...] Active Start: June 16, 2024 Dr. Floyd Tereletsky , DO Admit Provider Active S tart: [...] : June 17, 2024 Dr. Tyson Alvarez , DO Other Provider Active Star t: June [...] Start: June 17, 2024 Dr. Floyd Shah , DO Other [...] Active Member Role Status Dates Dr. Floyd Rciketts DO Primary Care Provider Active Start: June [...] Start: June 18, 2024 Dr. Floyd Shah , DO Other [...] Start: June 19, 2024 Dr. Floyd Shah , Admit Provider Active S tart: June 19, [...] January 01, 2025 End: January 01, 2025 Team Status: Active Member Role/Relationship Status Dates Dr. Floyd Ricketts DO Primary Care Provider Active Team Status: Inactive Member Role/Relationship Status Dates Dr. Floyd Ricketts DO Primary Care Provider Active Start: November 05, 2024 End: November 12, 2024 Dr. Felipe Barnett DPM Attending Provider Active Start: November 05, 2024 End: November 12, 2024 Dr. Sylvain Ruiz DPM Referring Provider Active Start: November 05, 2024 End: November 12, 2024 Team Status: Inactive Member Role/Relationship Status Dates Dr. Floyd Ricketts DO Primary Care Provider Active Start: November 19, 2024 End: December 11, 2024 Dr. Felipe Barnett DPM Attending Provider Active Start: November 19, 2024 End: December 11, 2024 Dr. Sylvain Ruiz DPM Referring Provider Active Start: November 19, 2024 End: December 11, 2024 Team Status: Inactive Member Role/Relationship Status Dates Dr. Floyd Ricketts DO Primary Care Provider Active Start: January 01, 2025 End: January 01, 2025 Dr. Floyd Ricketts DO Attending Provider Active Start: January 01, 2025 End: January 01, 2025 Team Status: Inactive Member Role/Relationship Status Dates Dr. Floyd Ricketts DO Primary Care Provider Active Start: February 26, 2025 End: February 26, 2025 Dr. Floyd Ricketts DO Attending Provider Active Start: February 26, 2025 End: February 26, 2025 Team Status: Inactive Member Role/Relationship Status Dates Dr. Floyd Ricketts DO Primary Care Provider Active Start: January 01, 2025 End: January 01, 2025 Dr. Floyd Ricketts DO Attending Provider Active Start: January 01, 2025 End: January 01, 2025 Team Status: Inactive Member Role/Relationship Status Dates Dr. Floyd Ricketts DO Primary Care Provider Active Start: February 26, 2025 End: February 26, 2025 Dr. Floyd Ricketts DO Attending Provider Active Start: February 26, 2025 End: February 26, 2025 Team Status: Inactive Member Role/Relationship Status Dates Dr. Floyd Ricketts DO Primary Care Provider Active Start: March 17, 2025 End: March 17, 2025 Dr. Floyd Ricketts DO Attending Provider Active Start: March 17, 2025 End: March 17, 2025 Dr. Floyd Ricketts DO Referring Provider Active Start: March 17, 2025 End: March 17, 2025 Team Status: Active Member Role/Relationship Status Dates Dr. Floyd Ricketts DO Primary Care Provider Active Start: March 19, 2025 Dr. Felipe Barnett DPM Attending Provider Active Start: March 19, 2025 Team Status: Inactive Member Role/Relationship Status Dates Dr. Floyd Ricketts DO Primary Care Provider Active Start: March 19, 2025 End: March 19, 2025 Dr. Felipe Barnett DPM Attending Provider Active Start: March 19, 2025 End: March 19, 2025 Goals (unrecognized section and content) Goals may be documented in a n alternate sectionGoals may be documented in an alternate sectionGoals may be documented in an alternate sectionGoals may be documented in an alternate sectionGoals may be documented in an [...] BE BASED ON THE PRIMARY CLINICAL RECORDS. [employer] provides no warranty or guarantee of the accuracy or completeness of information in this document.
== END | disposition home or self-care (01) ==
LOC: MRI 15:22
PROVIDERS: PCP Family Medicine; Referring Provider Podiatrist Foot & Ankle Surgery; Visit Provider Podiatrist Foot & Ankle Surgery
DX: L97.524 Non-pressure chronic ulcer of other part of left foot with necrosis of bone (principal)
CPT/HCPCS: 73718